=== PATIENT | female | born 1955 | race Caucasian/White ===

== ENCOUNTER → 2017-07-26 13:00 | Outpatient (CLI) | payer MEDICARE, SELFPAY ==
[2017-07-26 16:22] LABS: T4 Free Direct 1.23 ng/dL (0.76-1.46); Thyroid Stim Hormone (TSH) 0.79 uIU/mL (0.358-3.74)
== END ==
PROVIDERS: Family Provider Family Medicine; PCP Family Medicine; Visit Provider Family Medicine
DX: E03.9 Hypothyroidism, unspecified (principal)
CPT/HCPCS: 36415; 84439; 84443

== ENCOUNTER 2017-08-08 00:42 | Observation (INO) | payer MEDICARE, MEDICAID, SELFPAY ==
[2017-08-08] VITALS (20 sets, daily range): BP systolic 117–168; BP diastolic 56–94; PULSE 52–76; RESP 16–24; TEMP 36.3–36.7; O2SAT 95–99; BMI 34.1; BMI 32.1
--- NOTE | 2017-08-08 00:44 | EKG12_ITS ---
Test Reason : REPEAT Blood Pressure : / mmHG Vent. Rate : 059 BPM Atrial Rate : 059 BPM P-R Int : 144 ms QRS Dur : 092 ms QT Int : 458 ms P-R-T Axes : 043 022 036 degrees QTc Int : 453 ms Sinus bradycardia Otherwise normal ECG Confirmed by ELISHA POWER MD ([id number]), editor at large DONNA TROTTER ([id number] on 08/10/2017 1:00:20 PM Referred By: CARRIE Confirmed By:ELISHA POWER MD
--- NOTE | 2017-08-08 00:47 | RAD_ITS ---
STUDY: X-RAY CHEST REASON FOR EXAM: Female, 61 years old. Chest pain TECHNIQUE: Single frontal view of the chest. COMPARISON: 10/20/2015 FINDINGS: Median sternotomy wires. The lungs are clear and expanded. There is no demonstrated pleural abnormality. Normal size heart. Normal mediastinum and marisabel. Normal visualized pulmonary arteries. Normal visualized aortic arch and descending thoracic aorta. Normal visualized thoracic spine. There is degenerative osteoarthritis of the bilateral shoulders. There is no demonstrated abnormality of the visualized soft tissue structures of the upper abdomen. RAD/Chest 1 View (Portable) IMPRESSION: No acute pulmonary findings. Electronically Signed: Ephraim Du MD at 1:22 EST Tel , Service support ,
--- NOTE | 2017-08-08 01:05 | EKG12_ITS ---
Test Reason : CP Blood Pressure : / mmHG Vent. Rate : 064 BPM Atrial Rate : 064 BPM P-R Int : 138 ms QRS Dur : 088 ms QT Int : 444 ms P-R-T Axes : 052 033 036 degrees QTc Int : 458 ms Normal sinus rhythm Normal ECG Confirmed by ELISHA POWER MD ([id number]), marketing editor DONNA TROTTER ([id number]) on 08/10/2017 1:00:33 PM Referred By: CARRIE Confirmed By:ELISHA POWER MD
[2017-08-08 01:18] LABS: Absolute Neutrophil Count 3.3 X10^3/uL (2.0-7.7); Basophil# 0.02 X10^3/uL; Basophil% 0.3 % (0-1); Eosinophil# 0.26 X10^3/uL; Eosinophils% 3.8 % (0-5); Hematocrit 39.6 % (37-47); Hemoglobin 13.3 g/dl (12.0-15.0); Lymphocyte % 40.5 % (19-41); Mean Corp Hgb Conc 33.6 g/gl (32-36); Mean Corpuscular Hgb 31.1 pg (27.0-32.0); Mean Corpuscular Volume 92.7 fL (81-99); Mean Platelet Vol. 9.5 fl (6.2-12.0); Monocyte# 0.52 X10^3/uL; Monocyte% 7.5 % (0-10); Neutrophil # 3.31 X10^3/uL (2.7-7.7); Neutrophil % 47.8 % (47-70); Platelet Count 218 K/mm3 (150-450); RBC Distribution Width CV 13.2 % (11.6-14.6); RBC Distribution Width SD 44.4 fl (35.1-43.9); Red Blood Count 4.27 M/mm3 (4.2-5.4); White Blood Count 6.9 K/mm3 (4.4-11.0)
[2017-08-08 01:19] LABS: POSITIVE COUNT NO; POSITIVE DIFFERENTIAL NO; POSITIVE MORPHOLOGY NO
[2017-08-08 01:36] LABS: Anion Gap 8 (5-15); BUN 18 mg/dL (7-18); BUN/Creat Ratio 17.3 RATIO (10-20); Calcium,Total 9.2 mg/dL (8.5-10.1); Chloride 107 mmol/L (98-107); Creatinine, Serum 1.04 mg/dL (0.55-1.02); EST Glomerular Filtration Rate 57 mL/min (>60); Est Glom Filt Rate - Afr Amer 69 mL/min (>60); Estimated Creatinine Clearance 44.36 ml/min; Glucose 94 mg/dL (74-106); Potassium 4.2 mmol/L (3.5-5.1); Sodium Level 141 mmol/L (136-145)
[2017-08-08] MEDS: Nitroglycerin Oint 1 INCH PACKET TRANSDERM. ×2 (01:38→20:14)
[2017-08-08] MEDS: HEPARIN/D5w 25,000 UNITS 25,000 UNITS/250 ML IV.SOLN. 12 UNITS IV (01:57)
[2017-08-08 02:10] LABS: International Normalized Ratio 0.9; Prothrombin Time (Protime)PT. 11.7 SECONDS (11.7-14.9)
--- NOTE | 2017-08-08 03:27 | ED.VISSUMM ---
- ER Visit Summary Date of Service: 08/08/17 Chief Complaint: Chest pain History of Present Illness: The patient is a [address] Lemus and Dr. Boggs. She reports that she has chest pain that began yesterday. It is intermittent pain that lasts minutes at a time. States it is brought on by exertion relieved by rest. She describes the pain as a pressure. The most recent episode began approximate one half hours ago. States pain is 8 out of 10 at worst and 6 out of 10 currently. Is made her nauseated, short of breath, and diaphoretic. This most recent episode is radiating up into the left side of her jaw and down her left arm. Physical Examination: Vitals: Stable. Afebrile. General: Well-nourished and well-developed. Head: Normocephalic atraumatic. Neck: Supple, no lymphadenopathy. No JVD. Nontender. Cardiovascular: Regular rate and rhythm. No murmurs. Respiratory: No respiratory distress. Clear to auscultation bilaterally. Abdominal: Soft, nontender, nondistended, normal bowel sounds. No guarding, rebound, or peritoneal signs. Back: Nontender. Extremities: Nontender, no edema. Skin: Normal color, no rash. Neurologic: Alert and oriented ?3. Cranial nerves II through XII are intact. Normal strength and sensation. Psych: Normal affect. Test Results: EKG is sinus at [address] changes. Repeat EKG is unchanged. CBC is normal. Chem-7 is more for creatinine 1.04. Troponin is negative. Chest x-ray shows no acute disease. Emergency Department Course and Treatment: Patient was treated with aspirin, Nitropaste, morphine and heparin IV. She is resting comfortably. Treatment Plan: The patient was discussed with Dr. Brown and Dr. Cardenas. She will be admitted to the hospital for further evaluation and treatment. Disposition: Admitted in improved condition. Impression: 1. Chest pain. 2. BERTRAND score of 3. This note was generated with Finalta dictation software. It may contain incorrect words, spelling, and punctuation that were not noted in review of the chart prior to signing ED Disposition - Plan for ED Patient: Chief Complaint: Chest Pain Referrals: Teresa Boggs DO [Primary Care Provider] -
--- NOTE | 2017-08-08 03:28 | HP.PCM_ITS ---
Problem List (1) Chest pain Status: Acute (2) Orthostatic hypotension Status: Acute (3) Basal cell carcinoma of neck Status: Chronic Comment: C44.41 2 cm basal cell carcinoma scar right neck (4) Benign essential hypertension Status: Chronic (5) Bipolar disorder Status: Chronic (6) CAD (coronary artery disease) Status: Chronic History of Present Illness Date of Admission: 08/08/17 Chief Complaint: Chest pain The patient is a 61 year old female with significant past medical history of coronary artery disease, anxiety, history of stroke, fibromyalgia, irritable bowel syndrome, history of myocardial infarction, and posttraumatic stress disorder admitted for chest pain. She has left sided chest pressure that started yesterday while at rest. Pain has been moderate to severe. Pain would last for hours. Pain is episodic. Nothing makes it better or worse. She tried nitro but it did little to relieve the pain. Given that the intensity and frequency of the pain have increased, she went to the ED for further workup. Past Medical History Past Medical History (Chronic Problems): Chronic Problems Right foot pain (Chronic) Painful orthopaedic hardware (Chronic) Former smoker (Chronic) Z87.891 Basal cell carcinoma of neck (Chronic) C44.41 2 cm basal cell carcinoma scar right neck Neoplasm of skin of back (Chronic) D49.2 6 mm lesion left middle medial back Benign essential hypertension (Chronic) Bipolar disorder (Chronic) CAD (coronary artery disease) (Chronic) Hyperlipidemia (Chronic) Hypothyroidism (Chronic) history of ischemic stroke (Chronic) Seizure disorder (Chronic) Allergies adhesive tape Allergy (Verified 08/08/17 00:49) Rash codeine Allergy (Verified 08/08/17 00:49) Itching doxazosin Allergy (Verified 08/08/17 00:49) DROPS HEART RATE furosemide [From Lasix] Allergy (Verified 08/08/17 00:49) Itching latex Allergy (Verified 08/08/17 00:49) Rash oxycodone HCl [From Percocet] Allergy (Verified 08/08/17 00:49) Itching tramadol HCl [From Ultram] Allergy (Verified 08/08/17 00:49) Itching Home Medications: Ambulatory Orders Medication Instructions Recorded BusPIRone [Buspar] 10 mg PO TID 02/03/14 Clopidogrel Bisulfate [Plavix] 75 mg PO DAILY 02/03/14 Duloxetine Hcl [Cymbalta] 30 mg PO DAILY 02/03/14 Levothyroxine [Synthroid] 50 mcg PO TUTH 02/03/14 Levothyroxine [Synthroid] 75 mcg PO SUMOWEFRSA 02/03/14 Metoprolol Tartrate [Lopressor 50 mg PO BID 02/03/14 (beta kelin)] Multivitamins,Therapeutic 1 tablet PO DAILY 02/03/14 [Multivitamin] Pravastatin [Pravachol] 80 mg PO QHS 02/03/14 [place]-3 Fatty Acids [Fish Oil] 1,500 mg PO DAILY 10/20/15 Nitroglycerin [Nitrostat] 0.4 mg SUBLINGUAL Q5M PRN 06/10/16 Aspirin [Aspirin, Baby] 81 mg PO DAILY@0800 09/24/16 Amlodipine [Norvasc] 10 mg PO DAILY #0 09/25/16 Loratadine 10 mg PO DAILY 05/27/17 Magnesium 500 mg PO DAILY 05/27/17 L.acidoph,Paracasei, B.lactis 1 each PO DAILY 08/08/17 [Probiotic] Surgical History: coronary bypass surgery, - - cath with a stent in 2012 Smoking Status: Former smoker - *Family History Maternal History Items: Heart Disease Paternal History Items: Heart Disease Review of Systems Constitutional: Denies: Chills, Fever, Weight Change Eyes: Denies: Eyelid Inflammation HEENT: Denies: Head Aches, Sinus Congestion, Sinus Drainage Cardiovascular: Reports: Chest Pain, Chest Pressure, Chest Tightness. Denies: Palpitations Respiratory: Denies: Cough, Shortness of breath at rest, Sputum production Gastrointestinal: Denies: Abdominal Pain, Nausea, Vomiting Genitourinary: Denies: Dysuria Musculoskeletal: Denies: Joint Pain, Joint Tenderness Skin: Denies: Rash, Wounds Neurological: Denies: Numbness, Tingling, Focal weakness Psychiatric: Denies: Anxiety, Depression, Homicidal Ideations, Suicidal Ideations Hematologic/ Lymphatic: Denies: Easy Bruising, Easy Bleeding VTE Information - Inpt Only VTE Present on Admission: No VTE Mechan Device Prophylaxis: SCD's VTE Pharm Prophylaxis ordered?: Yes - Physical Exam General: Alert, Oriented x3, Cooperative HEENT: Atraumatic, PERRLA, EOMI, Normocephalic Neck: Supple, No JVD, Negative Carotid Bruits Lungs: Clear to auscultation, Normal air movement Cardiovascular: Regular rate, No murmurs Abdomen: Bowel Sounds Present, Soft, Non Tender Extremities: No edema, Capillary Refill Less than 3 Seconds Skin: No rashes, No breakdown Musculoskeletal: No Tenderness to Palpation of Joints or Extremities Neurological: Cranial nerves II-XII grossly intact Psych/Mental Status: Normal Affect, Appropriate Vital Signs Temp Pulse Resp BP Pulse Ox 97.6 F L 63 24 H 137/66 H 99 08/08/17 00:43 08/08/17 03:07 08/08/17 03:07 08/08/17 03:07 08/08/17 03:07 Oxygen Flow Rate 2 Oxygen Delivery Method Nasal Cannula Weight: 84.6 kg Body Mass Index (BMI) 34.1 Laboratory Tests Past 24 Hrs 08/08/17 08/08/17 08/08/17 00:56 00:56 01:15 WBC 6.9 RBC 4.27 Hgb 13.3 Hct 39.6 MCV 92.7 MCH 31.1 MCHC 33.6 RDW 13.2 RDW Differential 44.4 H Plt Count 218 MPV 9.5 Immature Gran % (Auto) 0.100 Neut % (Auto) 47.8 Lymph % (Auto) 40.5 [place] % (Auto) 7.5 Eos % (Auto) 3.8 Baso % (Auto) 0.3 Absolute Neuts (auto) 3.3 Absolute Lymphs (auto) 2.80 Total Counted Not Reportable PT 11.7 INR 0.9 Sodium 141 Potassium 4.2 Chloride 107 Carbon Dioxide 26.0 Anion Gap 8 BUN 18 Creatinine 1.04 H Estim Creat Clear Calc 44.36 Est GFR (MDRD) Af Amer 69 Est GFR (MDRD) Non-Af 57 L BUN/Creatinine Ratio 17.3 Glucose 94 Calcium 9.2 Troponin I < 0.02 Assessment/Plan 61 year old female with significant past medical history of coronary artery disease, anxiety, history of stroke, fibromyalgia, irritable bowel syndrome, history of myocardial infarction, and posttraumatic stress disorder admitted for chest pain. 1) Chest pain: Heart score 6. First trop negative. EKG disclosed no e/o acute ischemia. Chest xray is unremarkable. Will get serial trops. Will consult cards in AM. ECHO in AM. 2) CAD s/p FL: Resume home meds. Monitor. 3) Chronic issues: PTSD, fibromyalgia, and HTN: Resume home meds. Monitor. 4) Prophylaxis: Heparin / SCD.
[2017-08-08] MEDS: Levothyroxine 75 MCG Tablet PO (05:13)
[2017-08-08 05:30] LABS: Absolute Neutrophil Count 3.3 X10^3/uL (2.0-7.7); Basophil# 0.02 X10^3/uL; Basophil% 0.3 % (0-1); Eosinophil# 0.23 X10^3/uL; Eosinophils% 3.6 % (0-5); Hematocrit 38.4 % (37-47); Hemoglobin 13.1 g/dl (12.0-15.0); Lymphocyte % 37.4 % (19-41); Mean Corp Hgb Conc 34.1 g/gl (32-36); Mean Corpuscular Hgb 31.4 pg (27.0-32.0); Mean Corpuscular Volume 92.1 fL (81-99); Mean Platelet Vol. 10.2 fl (6.2-12.0); Monocyte# 0.48 X10^3/uL; Monocyte% 7.5 % (0-10); Neutrophil # 3.28 X10^3/uL (2.7-7.7); Platelet Count 215 K/mm3 (150-450); RBC Distribution Width SD 42.6 fl (35.1-43.9); Red Blood Count 4.17 M/mm3 (4.2-5.4); White Blood Count 6.4 K/mm3 (4.4-11.0)
[2017-08-08 05:32] LABS: POSITIVE COUNT NO; POSITIVE DIFFERENTIAL NO; POSITIVE MORPHOLOGY NO
--- NOTE | 2017-08-08 05:55 | ECHOD_ITS ---
Reason For Study: CHEST PAIN Procedure This was a 2D Doppler, Color Flow transthoracic echocardiogram. Exam performed portable in patient room. Left Ventricle Normal LV size. Left ventricular systolic function is normal. The estimated ejection fraction is 65 %. Transmitral and pulmonary venous doppler flow suggestive of impaired relaxation of left ventricle. No regional wall motion abnormalities noted. Right Ventricle Normal RV size. Normal systolic function. Atria Normal left atrium. Normal right atrium. Mitral Valve Normal mitral valve. Mild (1+) eccentric mitral valve insufficiency. Tricuspid Valve Normal tricuspid valve. Mild to moderate (1-2+) tricuspid valve insufficiency. Pulmonary artery systolic pressure is 33 mmHg. Aortic Valve Trisinus/trileaflet aortic valve. Pulmonic Valve Normal pulmonic valve. Great Vessels Normal aortic root. The pulmonary artery is normal size. Normal inferior vena cava. Pericardium/Pleural No pericardial effusion. MMode/2D Measurements & Calculations LVIDd: 4.5 cm IVSd: 0.96 cm Ao root diam: 3.5 cm LVIDs: 2.9 cm LVPWd: 0.95 cm LA dimension: 3.6 cm RVDd: 5.1 cm FS: 34.9 % LAV(MOD-sp4): 56.1 ml LA A4 area: 19.8 cm2 RA A4 area: 18.7 cm2 Doppler Measurements & Calculations MV E max genoveva: 51.6 cm/sec Ao V2 max: 110.3 cm/sec LV V1 max: 93.4 cm/sec MV A max genoveva: 62.8 cm/sec Ao max P.9 mmHg LV V1 max P.5 mmHg MV E/A: 0.82 TR max genoveva: 264.4 cm/sec TR max P.0 mmHg Interpretation Summary Normal LV size. Left ventricular systolic function is normal. The estimated ejection fraction is 65 %. Transmitral and pulmonary venous doppler flow suggestive of impaired relaxation of left ventricle Mild (1+) eccentric mitral valve insufficiency. Pulmonary artery systolic pressure is 33 mmHg. Ordering Physician: Dannie Brown Referring Physician: KINGS TALAVERA Performed By: Melvina Morales, RDCS, RVT
[2017-08-08 06:29] LABS: ALB/GLOB Ratio 1.1 RATIO (0.9-2.4); AST(SGOT) 26 U/L (15-37); Alanine Aminotransfer ALT/SGPT 25 U/L (13-56); Albumin, Serum 3.6 g/dL (3.2-5.0); Alkaline Phosphatase 66 U/L (45-117); Anion Gap 8 (5-15); BUN 16 mg/dL (7-18); BUN/Creat Ratio 16.6 RATIO (10-20); Calcium,Total 8.9 mg/dL (8.5-10.1); Chloride 109 mmol/L (98-107); Cholesterol 199 mg/dL (200); Creatinine, Serum 0.96 mg/dL (0.55-1.02); EST Glomerular Filtration Rate 62 mL/min (>60); Est Glom Filt Rate - Afr Amer 75 mL/min (>60); Estimated Creatinine Clearance 45.85 ml/min; Globulin 3.3 g/dL (2.2-4.2); Glucose 105 mg/dL (74-106); High Density Lipoprotein 65 mg/dL; Magnesium 2.5 mg/dL (1.6-2.6); Potassium 3.8 mmol/L (3.5-5.1); Protein, Total 6.9 g/dL (6.4-8.2); Sodium Level 142 mmol/L (136-145); Thyroid Stim Hormone (TSH) 1.14 uIU/mL (0.358-3.74); Triglycerides 71 mg/dL; Very Low Density Lipoprotein 14 mg/dL (5-40)
[2017-08-08] MEDS: Loratadine 10 MG Tablet PO (09:54)
[2017-08-08] MEDS: amLODIPine 10 MG Tablet PO (09:54)
[2017-08-08] MEDS: Magnesium Oxide 400 MG Tablet PO (09:54)
[2017-08-08] MEDS: Metoprolol Tartrate 50 MG Tablet PO ×2 (09:54→20:10)
[2017-08-08] MEDS: DULoxetine Hcl 30 MG Capsule PO (09:54)
[2017-08-08] MEDS: Multivitamins,Therapeutic Tablet 1 TABLET PO (09:55)
[2017-08-08] MEDS: Clopidogrel Bisulfate 75 MG Tablet PO (09:55)
[2017-08-08] MEDS: Aspirin 81 MG TAB.CHEW PO (09:55)
[2017-08-08] MEDS: HYDROcodone Bitartrate/Apap 5/325 Tablet PO (13:50)
--- NOTE | 2017-08-08 14:04 | PCM.CONS.C ---
Problem List (1) Unstable angina Status: Acute (2) CAD (coronary artery disease) Status: Chronic Qualifiers: Coronary Disease-Associated Artery/Lesion type: bypass graft Associated angina: with unstable angina (3) S/P PTCA (percutaneous transluminal coronary angioplasty) Status: Chronic (4) S/P CABG x 2 Status: Chronic (5) Hyperlipidemia Status: Chronic Qualifiers: Hyperlipidemia type: unspecified Qualified Code(s): E78.5 - Hyperlipidemia, unspecified (6) Benign essential hypertension Status: Chronic (7) Hypothyroidism Status: Chronic Qualifiers: Hypothyroidism type: unspecified Qualified Code(s): E03.9 - Hypothyroidism, unspecified Reason for Consult Date of Consultation: 08/08/17 History of Present Illness: The patient is a 61 year old female with a past medical history of CAD, status post RCA PTCA/stent, status post CABG (VARGAS to the LAD and SVG to the LCx), superimposed upon hyperlipidemia, hypertension, hypothyroidism who presents for evaluation of symptoms compatible with unstable angina pectoris. She states she has been having symptoms which have progressed recently and yesterday were nonexertional with a chest heaviness that radiated to her left neck, left jaw, left upper extremity, and was associated with shortness of breath/dyspnea and nausea. She did not have orthopnea, PND, or peripheral pitting edema. There was no loss of consciousness. She states the symptoms resembled symptoms she has had prior to her coronary artery revascularization therapy and different from her gastrointestinal disease process with a history of GERD and irritable bowel syndrome. She notes she is also had a chronic knot like sensation in her chest. She used nitroglycerin sublingual at home. She states this gave her partial relief. She received additional nitrate therapy during her emergency department evaluation. She states she had relief of her symptoms other than the chronic knot like sensation in her chest. She has had cardiac enzymes. They have been negative. Her ECG demonstrated sinus rhythm/sinus bradycardia with no acute ECG changes. He has continued medical management. [] Past Medical History Allergies/Adverse Reactions: Allergies adhesive tape Allergy (Verified 08/08/17 04:22) Rash codeine Allergy (Verified 08/08/17 04:22) Itching doxazosin Allergy (Verified 08/08/17 04:22) DROPS HEART RATE furosemide [From Lasix] Allergy (Verified 08/08/17 04:22) Itching latex Allergy (Verified 08/08/17 04:22) Rash oxycodone HCl [From Percocet] Allergy (Verified 08/08/17 04:22) Itching tramadol HCl [From Ultram] Allergy (Verified 08/08/17 04:22) Itching Home Medications: Ambulatory Orders Medication Instructions Recorded BusPIRone [Buspar] 10 mg PO TID 02/03/14 Clopidogrel Bisulfate [Plavix] 75 mg PO DAILY 02/03/14 Duloxetine Hcl [Cymbalta] 30 mg PO DAILY 02/03/14 Levothyroxine [Synthroid] 50 mcg PO TUTH 02/03/14 Levothyroxine [Synthroid] 75 mcg PO SUMOWEFRSA 02/03/14 Metoprolol Tartrate [Lopressor 50 mg PO BID 02/03/14 (beta kelin)] Multivitamins,Therapeutic 1 tablet PO DAILY 02/03/14 [Multivitamin] Pravastatin [Pravachol] 80 mg PO QHS 02/03/14 [place]-3 Fatty Acids [Fish Oil] 1,500 mg PO DAILY 10/20/15 Nitroglycerin [Nitrostat] 0.4 mg SUBLINGUAL Q5M PRN 06/10/16 Aspirin [Aspirin, Baby] 81 mg PO DAILY@0800 09/24/16 Amlodipine [Norvasc] 10 mg PO DAILY #0 09/25/16 Loratadine 10 mg PO DAILY 05/27/17 Magnesium 500 mg PO DAILY 05/27/17 L.acidoph,Paracasei, B.lactis 1 each PO DAILY 08/08/17 [Probiotic] Past Medical History (Chronic Problems): Chronic Problems S/P PTCA (percutaneous transluminal coronary angioplasty) (Chronic) S/P CABG x 2 (Chronic) Right foot pain (Chronic) Painful orthopaedic hardware (Chronic) Former smoker (Chronic) Z87.891 Basal cell carcinoma of neck (Chronic) C44.41 2 cm basal cell carcinoma scar right neck Neoplasm of skin of back (Chronic) D49.2 6 mm lesion left middle medial back Benign essential hypertension (Chronic) Bipolar disorder (Chronic) CAD (coronary artery disease) (Chronic) Hyperlipidemia (Chronic) Hypothyroidism (Chronic) history of ischemic stroke (Chronic) Seizure disorder (Chronic) Surgical History: coronary bypass surgery, - - cath with a stent in 2012 - *Family History Maternal History Items: Heart Disease Paternal History Items: Heart Disease Smoking Status: Former smoker Alcohol: None Drugs: None Review of Systems - Review of Systems General: Denies: Fever, Night Sweats, Fatigue Cardiovascular: Reports: Chest Discomfort, Chest Discomfort at Rest, Chest Discomfort with Exertion, Shortness of Breath, Shortness of Breath at Rest. Denies: Orthopnea, PND, Peripheral Edema, Palpitations, Lightheadedness, Dizziness, Near Syncope, Syncope Respiratory: Reports: Shortness of Breath. Denies: Cough, Sputum Production, Hemoptysis Gastrointestinal: Denies: Hematemesis, Hematochezia, Melena Genitourinary: Denies: Dysuria, Hematuria Skin: Denies: Rash Subjectve: This is a 61-year-old white female who appears to be resting comfortably at the moment in no acute distress. Objective: Vital Signs Temp Pulse Resp BP Pulse Ox 98.1 F 66 16 138/64 H 98 08/08/17 09:51 08/08/17 09:54 08/08/17 09:51 08/08/17 09:51 08/08/17 09:51 Oxygen Flow Rate 2 Oxygen Delivery Method Nasal Cannula Weight: 174 lb 9.698 oz Body Mass Index (BMI) 32.1 Intake and Output for Last 24 Hours 08/06/17 08/07/17 08/08/17 23:59 23:59 23:59 Intake Total 360 / 360 Balance 360 / 360 General: Awake, Alert, Oriented x 3, Cooperative, No Acute Distress Neck: No JVD Lungs: Clear to auscultation Cardiovascular: Regular Rhythm, Normal S1, Normal S2 Vascular: No Carotid Bruits Abdomen: Bowel Sounds Present, Soft, Non Tender Extremities: No edema 08/08/17 04:45: WBC 6.4, RBC 4.17 L, Hgb 13.1, Hct 38.4, MCV 92.1, MCH 31.4, MCHC 34.1, RDW 13.0, RDW Differential 42.6, Plt Count 215, MPV 10.2, Immature Gran % (Auto) 0.200, Neut % (Auto) 51.0, Lymph % (Auto) 37.4, [place] % (Auto) 7.5, Eos % (Auto) 3.6, Baso % (Auto) 0.3, Absolute Neuts (auto) 3.3, Total Counted Not Reportable 08/08/17 04:45: Sodium 142, Potassium 3.8, Chloride 109 H, Carbon Dioxide 25.0, Anion Gap 8, BUN 16, Creatinine 0.96, Est GFR (MDRD) Af Amer 75, Est GFR (MDRD) Non-Af 62, BUN/Creatinine Ratio 16.6, Glucose 105, Calcium 8.9, Magnesium 2.5, Total Bilirubin 0.70, Triglycerides 71, Cholesterol 199, LDL Cholesterol 120, VLDL Cholesterol 14, HDL Cholesterol 65 08/08/17 04:45: Troponin I < 0.02 08/08/17 09:15: Troponin I < 0.02 Rhythm: Sinus rhythm EKG: As noted above ECHO: 12/09/2015: Left ventricle normal with an LVEF of 60%; mild MR; mild to moderate TR Stress Test: 02/11/2015: Pharmacologic stress nuclear imaging study: Considered negative for stress-induced myocardial ischemia Cardiac Cath: 10/21/2015: Left main coronary artery with no high-grade stenosis; LAD with proximal 30-40% stenosis; LCx AV groove/OM vessel with an 80% stenosis-small vessel; RCA being a dominant vessel with a distal 95% stenosis; VARGAS to the LAD previously noted as atretic; SVG to the LCx patent; left ventriculogram normal with an LVEF of 65% PCI: 10/22/2015: [facility]: Successful PTCA/stent of the distal RCA lesion with subsequent notation of antegrade dissection after stent deployment with subsequent PTCA/JATIN placed across the ostium of the PDA CT Surgery: Official report unavailable for review: Based upon other medical records available for review there was a VARGAS to the LAD and an SVG to the LCx system CXR: Preliminary evaluation: Postoperative cardiovascular changes: No acute cardiopulmonary disease process appreciated: Please see official report Assessment/Plan 1. Unstable angina pectoris The patient presents with symptoms concerning for unstable angina pectoris. At the same time she has symptoms that are somewhat atypical with respect to her chronic knot sensation. She notes her symptoms are similar, overall, after her symptoms she had prior to her revascularization procedures and different from her gastrointestinal related symptoms with her history of GERD and inflammatory bowel disease. At the present time she will continue to be monitored. She will continue medical therapy. She has remained on aspirin, antiplatelets, she will be placed on nitrates, she continues beta-kelin therapy and lipid-lowering therapy. She has also been placed on anticoagulant therapy. She will be considered for further evaluation with diagnostic cardiac catheterization. The procedure and risks have been discussed with her and she is agreeable to this approach. 2. CAD status post PTCA/stent and CABG The patient does have underlying history of CAD requiring both PTCA/stent and CABG as noted above. At the moment there are concerns based upon her symptoms compatible with unstable angina pectoris of progressive [place] vessel or graft vessel disease. Thus she will continue her current medical management and be considered for reevaluation in the cardiac catheterization laboratory as noted above. 3. Hyperlipidemia The patient has been on lipid-lowering therapy. This will be continued. 4. Hypertension She will continue antihypertensive therapy. 5. Hypothyroidism The patient will continue evaluation care per internal medicine as deemed appropriate. Comment: Patient's case was discussed and reviewed with Dr. Burch. This note was generated with Qnary dictation software. It may contain incorrect words, spelling, and punctuation that were not noted in checking the note before signing.
--- NOTE | 2017-08-08 14:16 | CON.PCM_ITS ---
Problem List (1) Unstable angina Status: Acute (2) CAD (coronary artery disease) Status: Chronic Qualifiers: Coronary Disease-Associated Artery/Lesion type: bypass graft Associated angina: with unstable angina (3) S/P PTCA (percutaneous transluminal coronary angioplasty) Status: Chronic (4) S/P CABG x 2 Status: Chronic (5) Hyperlipidemia Status: Chronic Qualifiers: Hyperlipidemia type: unspecified Qualified Code(s): E78.5 - Hyperlipidemia , unspecified (6) Benign essential hypertension Status: Chronic (7) Hypothyroidism Status: Chronic Qualifiers: Hypothyroidism type: unspecified Qualified Code(s): E03.9 - Hypothyroidism , unspecified Reason for Consult Date of Consultation: 08/08/17 History of Present Illness: The patient is a 61 year old female with a past medical history of CAD, status post RCA PTCA/stent, status post CABG (VARGAS to the LAD and SVG to the LCx), superimposed upon hyperlipidemia, hypertension, hypothyroidism who presents for evaluation of symptoms compatible with unstable angina pectoris. She states she has been having symptoms which have progressed recently and yesterday were nonexertional with a chest heaviness that radiated to her left neck, left jaw, left upper extremity, and was associated with shortness of breath/dyspnea and nausea. She did not have orthopnea, PND, or peripheral pitting edema. There was no loss of consciousness. She states the symptoms resembled symptoms she has had prior to her coronary artery revascularization therapy and different from her gastrointestinal disease process with a history of GERD and irritable bowel syndrome. She notes she is also had a chronic knot like sensation in her chest. She used nitroglycerin sublingual at home. She states this gave her partial relief. She received additional nitrate therapy during her emergency department evaluation. She states she had relief of her symptoms other than the chronic knot like sensation in her chest. She has had cardiac enzymes. They have been negative. Her ECG demonstrated sinus rhythm/sinus bradycardia with no acute ECG changes. He has continued medical management. [] Past Medical History Allergies/Adverse Reactions: Allergies adhesive tape Allergy (Verified 08/08/17 04:22) Rash codeine Allergy (Verified 08/08/17 04:22) Itching doxazosin Allergy (Verified 08/08/17 04:22) DROPS HEART RATE furosemide [From Lasix] Allergy (Verified 08/08/17 04:22) Itching latex Allergy (Verified 08/08/17 04:22) Rash oxycodone HCl [From Percocet] Allergy (Verified 08/08/17 04:22) Itching tramadol HCl [From Ultram] Allergy (Verified 08/08/17 04:22) Itching Home Medications: Ambulatory Orders Medication Instructions Recorded BusPIRone [Buspar] 10 mg PO TID 02/03/14 Clopidogrel Bisulfate [Plavix] 75 mg PO DAILY 02/03/14 Duloxetine Hcl [Cymbalta] 30 mg PO DAILY 02/03/14 Levothyroxine [Synthroid] 50 mcg PO TUTH 02/03/14 Levothyroxine [Synthroid] 75 mcg PO SUMOWEFRSA 02/03/14 Metoprolol Tartrate [Lopressor 50 mg PO BID 02/03/14 (beta kelin)] Multivitamins,Therapeutic 1 tablet PO DAILY 02/03/14 [Multivitamin] Pravastatin [Pravachol] 80 mg PO QHS 02/03/14 [place]-3 Fatty Acids [Fish Oil] 1,500 mg PO DAILY 10/20/15 Nitroglycerin [Nitrostat] 0.4 mg SUBLINGUAL Q5M PRN 06/10/16 Aspirin [Aspirin, Baby] 81 mg PO DAILY@0800 09/24/16 Amlodipine [Norvasc] 10 mg PO DAILY #0 09/25/16 Loratadine 10 mg PO DAILY 05/27/17 Magnesium 500 mg PO DAILY 05/27/17 L.acidoph,Paracasei, B.lactis 1 each PO DAILY 08/08/17 [Probiotic] Past Medical History (Chronic Problems): Chronic Problems S/P PTCA (percutaneous transluminal coronary angioplasty) (Chronic) S/P CABG x 2 (Chronic) Right foot pain (Chronic) Painful orthopaedic hardware (Chronic) Former smoker (Chronic) Z87.891 Basal cell carcinoma of neck (Chronic) C44.41 2 cm basal cell carcinoma scar right neck Neoplasm of skin of back (Chronic) D49.2 6 mm lesion left middle medial back Benign essential hypertension (Chronic) Bipolar disorder (Chronic) CAD (coronary artery disease) (Chronic) Hyperlipidemia (Chronic) Hypothyroidism (Chronic) history of ischemic stroke (Chronic) Seizure disorder (Chronic) Surgical History: coronary bypass surgery, - - cath with a stent in 2012 - *Family History Maternal History Items: Heart Disease Paternal History Items: Heart Disease Smoking Status: Former smoker Alcohol: None Drugs: None Review of Systems - Review of Systems General: Denies: Fever, Night Sweats, Fatigue Cardiovascular: Reports: Chest Discomfort, Chest Discomfort at Rest, Chest Discomfort with Exertion, Shortness of Breath, Shortness of Breath at Rest. Denies: Orthopnea, PND, Peripheral Edema, Palpitations, Lightheadedness, Dizziness, Near Syncope, Syncope Respiratory: Reports: Shortness of Breath. Denies: Cough, Sputum Production, Hemoptysis Gastrointestinal: Denies: Hematemesis, Hematochezia, Melena Genitourinary: Denies: Dysuria, Hematuria Skin: Denies: Rash Subjectve: This is a 61-year-old white female who appears to be resting comfortably at the moment in no acute distress. Objective: Vital Signs Temp Pulse Resp BP Pulse Ox 98.1 F 66 16 138/64 H 98 08/08/17 09:51 08/08/17 09:54 08/08/17 09:51 08/08/17 09:51 08/08/17 09:51 Oxygen Flow Rate 2 Oxygen Delivery Method Nasal Cannula Weight: 174 lb 9.698 oz Body Mass Index (BMI) 32.1 Intake and Output for Last 24 Hours 08/06/17 08/07/17 08/08/17 23:59 23:59 23:59 Intake Total 360 / 360 Balance 360 / 360 General: Awake, Alert, Oriented x 3, Cooperative, No Acute Distress Neck: No JVD Lungs: Clear to auscultation Cardiovascular: Regular Rhythm, Normal S1, Normal S2 Vascular: No Carotid Bruits Abdomen: Bowel Sounds Present, Soft, Non Tender Extremities: No edema 08/08/17 04:45: WBC 6.4, RBC 4.17 L, Hgb 13.1, Hct 38.4, MCV 92.1, MCH 31.4, MCHC 34.1, RDW 13.0, RDW Differential 42.6, Plt Count 215, MPV 10.2, Immature Gran % (Auto) 0.200, Neut % (Auto) 51.0, Lymph % (Auto) 37.4, [place] % (Auto) 7.5 , Eos % (Auto) 3.6, Baso % (Auto) 0.3, Absolute Neuts (auto) 3.3, Total Counted Not Reportable 08/08/17 04:45: Sodium 142, Potassium 3.8, Chloride 109 H, Carbon Dioxide 25.0, Anion Gap 8, BUN 16, Creatinine 0.96, Est GFR (MDRD) Af Amer 75, Est GFR (MDRD) Non-Af 62, BUN/Creatinine Ratio 16.6, Glucose 105, Calcium 8.9, Magnesium 2.5, Total Bilirubin 0.70, Triglycerides 71, Cholesterol 199, LDL Cholesterol 120, VLDL Cholesterol 14, HDL Cholesterol 65 08/08/17 04:45: Troponin I < 0.02 08/08/17 09:15: Troponin I < 0.02 Rhythm: Sinus rhythm EKG: As noted above ECHO: 12/09/2015: Left ventricle normal with an LVEF of 60%; mild MR; mild to moderate TR Stress Test: 02/11/2015: Pharmacologic stress nuclear imaging study: Considered negative for stress-induced myocardial ischemia Cardiac Cath: 10/21/2015: Left main coronary artery with no high-grade stenosis; LAD with proximal 30-40% stenosis; LCx AV groove/OM vessel with an 80% stenosis- small vessel; RCA being a dominant vessel with a distal 95% stenosis; VARGAS to the LAD previously noted as atretic; SVG to the LCx patent; left ventriculogram normal with an LVEF of 65% PCI: 10/22/2015: [facility]: Successful PTCA/stent of the distal RCA lesion with subsequent notation of antegrade dissection after stent deployment with subsequent PTCA/JATIN placed across the ostium of the PDA CT Surgery: Official report unavailable for review: Based upon other medical records available for review there was a VARGAS to the LAD and an SVG to the LCx system CXR: Preliminary evaluation: Postoperative cardiovascular changes: No acute cardiopulmonary disease process appreciated: Please see official report Assessment/Plan 1. Unstable angina pectoris The patient presents with symptoms concerning for unstable angina pectoris. At the same time she has symptoms that are somewhat atypical with respect to her chronic knot sensation. She notes her symptoms are similar, overall, after her symptoms she had prior to her revascularization procedures and different from her gastrointestinal related symptoms with her history of GERD and inflammatory bowel disease. At the present time she will continue to be monitored. She will continue medical therapy. She has remained on aspirin, antiplatelets, she will be placed on nitrates, she continues beta-kelin therapy and lipid-lowering therapy. She has also been placed on anticoagulant therapy. She will be considered for further evaluation with diagnostic cardiac catheterization. The procedure and risks have been discussed with her and she is agreeable to this approach. 2. CAD status post PTCA/stent and CABG The patient does have underlying history of CAD requiring both PTCA/stent and CABG as noted above. At the moment there are concerns based upon her symptoms compatible with unstable angina pectoris of progressive [place] vessel or graft vessel disease. Thus she will continue her current medical management and be considered for reevaluation in the cardiac catheterization laboratory as noted above. 3. Hyperlipidemia The patient has been on lipid-lowering therapy. This will be continued. 4. Hypertension She will continue antihypertensive therapy. 5. Hypothyroidism The patient will continue evaluation care per internal medicine as deemed appropriate. Comment: Patient's case was discussed and reviewed with Dr. Burch. This note was generated with [employer] dictation software. It may contain incorrect words, spelling, and punctuation that were not noted in checking the note before signing.
[2017-08-08] MEDS: Pravastatin 80 MG Tablet PO (20:10)
[2017-08-08] MEDS: 0.9% NaCl Peripheral Flush Adult/Peds IV (20:15)
--- NOTE | 2017-08-08 20:55 | NURSING ---
Pt given HS meds at 20:10, Pt feeling sleepy at this time. Pt to have heart cath and wanted to get rest and asked to not be woken up for HS med and vitals. Administered early due to pt request.
[2017-08-09] VITALS (20 sets, daily range): BP systolic 102–129; BP diastolic 50–85; PULSE 52–67; RESP 14–18; TEMP 36.4–36.9; O2SAT 92–97
[2017-08-09] MEDS: Clopidogrel Bisulfate 75 MG Tablet PO (05:36)
[2017-08-09] MEDS: Levothyroxine 75 MCG Tablet PO (05:36)
[2017-08-09] MEDS: Aspirin 81 MG TAB.CHEW PO (05:36)
[2017-08-09] MEDS: amLODIPine 10 MG Tablet PO (05:37)
[2017-08-09] MEDS: 0.9% Normal Saline 1,000 ML 15 ML IV (05:39)
[2017-08-09] MEDS: Nitroglycerin Oint 1 INCH PACKET TRANSDERM. (05:39)
[2017-08-09] MEDS: Metoprolol Tartrate 50 MG Tablet PO (05:44)
--- NOTE | 2017-08-09 05:55 | EKG12_ITS ---
Test Reason : AM Blood Pressure : / mmHG Vent. Rate : 059 BPM Atrial Rate : 059 BPM P-R Int : 148 ms QRS Dur : 088 ms QT Int : 456 ms P-R-T Axes : 054 017 042 degrees QTc Int : 451 ms Sinus bradycardia Otherwise normal ECG When compared with ECG of 08-AUG-2017 01:15, MANUAL COMPARISON REQUIRED, DATA IS UNCONFIRMED Confirmed by JANNET METCALF, ELISHA ([id number]), subeditor DONNA TROTTER ([id number]) on 08/10/2017 2:01:05 PM Referred By: ANTONIO Confirmed By:ELISHA POWER MD
[2017-08-09 06:27] LABS: Partial Thromboplast Time 29.8 Seconds (24.1-36.2); Prothrombin Time (Protime)PT. 12.3 SECONDS (11.7-14.9)
[2017-08-09 06:38] LABS: Anion Gap 7 (5-15); BUN 17 mg/dL (7-18); BUN/Creat Ratio 18.2 RATIO (10-20); Calcium,Total 8.7 mg/dL (8.5-10.1); Chloride 107 mmol/L (98-107); Creatinine, Serum 0.94 mg/dL (0.55-1.02); EST Glomerular Filtration Rate 64 mL/min (>60); Est Glom Filt Rate - Afr Amer 78 mL/min (>60); Estimated Creatinine Clearance 46.83 ml/min; Glucose 107 mg/dL (74-106); Potassium 3.9 mmol/L (3.5-5.1); Sodium Level 139 mmol/L (136-145)
[2017-08-09 06:48] LABS: Absolute Lymphocyte Count 2.16 X10^3/ul (0.83-4.51); Absolute Neutrophil Count 2.8 X10^3/uL (2.0-7.7); Basophil# 0.02 X10^3/uL; Basophil% 0.4 % (0-1); Eosinophils% 3.6 % (0-5); Hematocrit 38.4 % (37-47); Hemoglobin 12.7 g/dl (12.0-15.0); Lymphocyte # 2.16 X10^3/ul (4.0); Lymphocyte % 38.7 % (19-41); Mean Corp Hgb Conc 33.1 g/gl (32-36); Mean Corpuscular Hgb 31.1 pg (27.0-32.0); Mean Corpuscular Volume 93.9 fL (81-99); Mean Platelet Vol. 9.7 fl (6.2-12.0); Monocyte# 0.36 X10^3/uL; Monocyte% 6.5 % (0-10); Neutrophil # 2.83 X10^3/uL (2.7-7.7); Neutrophil % 50.6 % (47-70); Platelet Count 210 K/mm3 (150-450); RBC Distribution Width CV 13.2 % (11.6-14.6); RBC Distribution Width SD 45.5 fl (35.1-43.9); Red Blood Count 4.09 M/mm3 (4.2-5.4); White Blood Count 5.6 K/mm3 (4.4-11.0)
[2017-08-09 06:54] LABS: POSITIVE COUNT NO; POSITIVE DIFFERENTIAL NO; POSITIVE MORPHOLOGY NO
--- NOTE | 2017-08-09 08:47 | PN.CARD_ITS ---
Subjectve: patient seen and evaluated Objective: Vital Signs Temp Pulse Resp BP Pulse Ox 97.9 F 57 L 16 122/60 H 97 08/09/17 05:52 08/09/17 06:57 08/09/17 05:52 08/09/17 05:52 08/09/17 05:52 Oxygen Flow Rate 2 Oxygen Delivery Method Room Air Weight: 174 lb 9.698 oz Body Mass Index (BMI) 32.1 Intake and Output for Last 24 Hours 08/07/17 08/08/17 08/09/17 23:59 23:59 23:59 Intake Total 1240 / 1240 400 / 400 Output Total 2 / 2 Balance 1238 / 1238 400 / 400 General: Awake, Alert, Oriented x 3 HEENT: PERRL, EOMI, Sclera Non Icteric Neck: Supple, Good ROM, No Lymph Node Enlargement Lungs: Clear to auscultation Cardiovascular: Regular Rhythm, Normal S1, Normal S2, No Murmurs, No Rubs, No Gallops Vascular: No Carotid Bruits, Normal Femoral Pulses, Normal Radial Pulses, Normal Dorsalis Pedal Pulse, Normal Posterior Tibial Pulses Abdomen: Bowel Sounds Present, Soft, Non Tender, No HSM, No Organomegaly Extremities: No Cyanosis, No Clubbing, No edema Neurological: No Focal Motor or Sensory Deficit 08/08/17 09:15: Troponin I < 0.02 08/08/17 14:35: Troponin I < 0.02 08/09/17 05:48: PT 12.3, INR 1.0, APTT 29.8 08/09/17 05:48: Sodium 139, Potassium 3.9, Chloride 107, Carbon Dioxide 25.0, Anion Gap 7, BUN 17, Creatinine 0.94, Est GFR (MDRD) Af Amer 78, Est GFR (MDRD) Non-Af 64, BUN/Creatinine Ratio 18.2, Glucose 107 H, Calcium 8.7 08/09/17 05:48: WBC 5.6, RBC 4.09 L, Hgb 12.7, Hct 38.4, MCV 93.9, MCH 31.1, MCHC 33.1, RDW 13.2, RDW Differential 45.5 H, Plt Count 210, MPV 9.7, Immature Gran % (Auto) 0.200, Neut % (Auto) 50.6, Lymph % (Auto) 38.7, [place] % (Auto) 6.5 , Eos % (Auto) 3.6, Baso % (Auto) 0.4, Absolute Neuts (auto) 2.8, Total Counted Not Reportable Rhythm: EKG: Sinus rhythm Assessment/Plan 1. Patient with known coronary artery disease. Underwent cardiac catheterization today which demonstrated the following: Left main coronary artery with mild 30% stenosis. Left anterior descending artery which appears to be patent with mild luminal irregularities. Left circumflex artery which is totally occluded in the midsegment. Dominant right coronary artery previously angioplastied with patent stents. Saphenous vein graft to the circumflex artery which is patent. Atretic left internal mammary artery not imaged. Preserved ejection fraction. Based on the above angiographic findings I would recommend continued aggressive medical therapy. Can be discharged later today.
--- NOTE | 2017-08-09 08:53 | CL.D_ITS ---
Patient Name: NISSA TROTTER Study Date: 08/09/2017 Performing: Dustin Lemus MD Ht: 62 inches 157 cm : 1955 Wt: 174.4 lbs 79 kg Age: 61 Gender: female BSA: 1.8 PROCEDURE(S) PERFORMED YC45-OAN/COR/LV/CABG CLINICAL PROFILE AND INDICATIONS INDICATIONS: 61-year-old lady with a history of chest pain and known coronary artery disease. Stress/Imaging Stress/Image Study Performed: No CAD Presentations: Stable angina. CONCLUSIONS No significant obstructive CAD.previous stent patent RECOMMENDATIONS Medical therapy DESCRIPTION OF PROCEDURE The patient arrived to the procedure lab. The risks and benefits of the procedure as well as a full d escription of our services here and current unavailability of surgical backup were fully explained to the patient and/or their significant other prior to the catheterization. The Timeout was completed, verifying the correct patient and procedure. The patient's procedural site was prepped and draped in the usual fashion. Local anesthetic was given subcutaneously to right radial region with Lidocaine 2% . Using a modified Seldinger technique, arterial access was obtained via the right radial artery, a 6 Fr sheath was inserted. Right Coronary Artery selective angiography was then performed in multiple v iews using a 5 Fr. 4.0 [place] catheter. Saphenous Vein graft to the Circumflex selective angiography w as performed in multiple views using a 5 Fr. 4.0 [place] catheter. Left Coronary Artery selective angio graphy was performed in multiple views using a 5 Fr. JL3.5 catheter. Left Ventriculography was perfor med in LOW projection using a 5 Fr. [place] catheter. LV to AO pullback pressures were then recorded. The arterial sheath was pulled and a TR Band was applied for hemostasis CORONARY ANGIOGRAPHY DOMINANCE: Right Dominant LEFT HEART ASSESSMENT Left Ventricular Ejection Fraction: by LV Gram 60 % Normal LV wall motion Normal Left Ventricular systolic function LEFT MAIN: 30 distal % Stenosis LEFT ANTERIOR DECENDING ARTERY: Mild luminal irregularities less than 30% CIRCUMFLEX ARTERY: MID CIRC: is occluded RIGHT CORONARY ARTERY: Previously placed stent is patent GRAFTS: Saphenous Vein graft to the 2nd OM is patent COMPLICATIONS No Complications PROCEDURE MEDICATIONS Versed 1 mg IV Fentanyl 50 mcg IV Oxygen: 2 L/min via nasal cannula SUMMARY OF HEMODYNAMIC DATA Time AIR REST AO 114/63 (84) SA 08:17:35 LV 125/5, 16 08:33:56 LV 126/4, 9 08:34:15 LV 122/4, 15 08:35:43 LVp 122/4, 17 08:35:48 AOp 124/51 (79) 08:35:53 Signed By Dustin Lemus MD On 08/09/2017 08:52:53 Dustin Lemus MD
[2017-08-09] MEDS: Magnesium Oxide 400 MG Tablet PO (10:10)
[2017-08-09] MEDS: Loratadine 10 MG Tablet PO (10:10)
[2017-08-09] MEDS: Multivitamins,Therapeutic Tablet 1 TABLET PO (10:10)
[2017-08-09] MEDS: DULoxetine Hcl 30 MG Capsule PO (10:10)
[2017-08-09] MEDS: Isosorbide Mononitrate 30 MG Tablet PO (10:10)
[2017-08-09] MEDS: 0.9% Normal Saline 1,000 ML 60 ML IV (10:48)
--- NOTE | 2017-08-09 15:31 | DCINST_ITS ---
- Discharge Diagnoses Current Active Problems: Current Active and Chronic Problems Unstable angina (Acute) S/P PTCA (percutaneous transluminal coronary angioplasty) (Chronic) S/P CABG x 2 (Chronic) You will use the following diet at home:: No restrictions Your food should be the consistency of: Regular Your liquids should be the consistency of: Regular/Thin Discharge Activity: Return to Normal Activity Weight Bearing Status: Full weight bearing Allergies/Adverse Reactions: Allergies adhesive tape Allergy (Verified 08/08/17 04:22) Rash codeine Allergy (Verified 08/08/17 04:22) Itching doxazosin Allergy (Verified 08/08/17 04:22) DROPS HEART RATE furosemide [From Lasix] Allergy (Verified 08/08/17 04:22) Itching latex Allergy (Verified 08/08/17 04:22) Rash oxycodone HCl [From Percocet] Allergy (Verified 08/08/17 04:22) Itching tramadol HCl [From Ultram] Allergy (Verified 08/08/17 04:22) Itching Medications to take at Discharge BusPIRone [Buspar] 10 mg PO TID 02/03/14 Clopidogrel Bisulfate [Plavix] 75 mg PO DAILY 02/03/14 Duloxetine Hcl [Cymbalta] 30 mg PO DAILY 02/03/14 Levothyroxine [Synthroid] 50 mcg PO TUTH 02/03/14 Levothyroxine [Synthroid] 75 mcg PO SUMOWEFRSA 02/03/14 Metoprolol Tartrate [Lopressor (beta kelin)] 50 mg PO BID 02/03/14 Multivitamins,Therapeutic [Multivitamin] 1 tablet PO DAILY 02/03/14 Pravastatin [Pravachol] 80 mg PO QHS 02/03/14 [place]-3 Fatty Acids [Fish Oil] 1,500 mg PO DAILY 10/20/15 Nitroglycerin [Nitrostat] 0.4 mg SUBLINGUAL Q5M PRN 06/10/16 Aspirin [Aspirin, Baby] 81 mg PO DAILY@0800 09/24/16 Amlodipine [Norvasc] 10 mg PO DAILY #0 09/25/16 Loratadine 10 mg PO DAILY 05/27/17 Magnesium 500 mg PO DAILY 05/27/17 L.acidoph,Paracasei, B.lactis [Probiotic] 1 each PO DAILY 02/11/18 Primary Care Physician: Teresa Boggs DO [Primary Care Provider] - Please follow up with your Primary Care Physician in: in 3 weeks Please Follow Up With: Dustin Lemus MD When: as directed
--- NOTE | 2017-08-09 22:58 | DS.PCM_ITS ---
Discharge Date and Diagnosis Date of Admission: 08/08/17 Date of Discharge: 08/09/17 - Primary Discharge Diagnosis #1 musculoskeletal chest pain #2 coronary artery disease - Secondary Discharge Diagnosis Chronic Problems S/P PTCA (percutaneous transluminal coronary angioplasty) (Chronic) S/P CABG x 2 (Chronic) Right foot pain (Chronic) Painful orthopaedic hardware (Chronic) Former smoker (Chronic) Z87.891 Basal cell carcinoma of neck (Chronic) C44.41 2 cm basal cell carcinoma scar right neck Neoplasm of skin of back (Chronic) D49.2 6 mm lesion left middle medial back Benign essential hypertension (Chronic) Bipolar disorder (Chronic) CAD (coronary artery disease) (Chronic) Hyperlipidemia (Chronic) Hypothyroidism (Chronic) history of ischemic stroke (Chronic) Seizure disorder (Chronic) Hospital Course and Treatment Operations: None Procedures: Cardiac catheterization Summary of Care Provided: The patient is a 61 year old F in the emergency room at [facility] with chief complaint of chest pain, workup in the emergency room included an EKG which showed nonspecific ST changes, troponin was negative, chest x-ray showed no acute disease. Patient was placed in observation status on PCU, serial enzymes were obtained which were negative, patient was seen in consultation by cardiology who recommended that a cardiac catheterization be performed due to her history of coronary artery disease. On 08/09/17, a cardiac catheterization was performed which showed no change from her previous cardiac catheterization no evidence of any occlusive coronary disease. On 08/09/17, patient was seen and examined by myself and felt to be in stable condition for discharge home, she was discharged on a Medrol Dosepak for presumed musculoskeletal and arthritic chest pain. Discharge Activity: Return to Normal Activity Weight Bearing Status: Full weight bearing Home Medications: Medications to take at Discharge BusPIRone [Buspar] 10 mg PO TID 02/03/14 Clopidogrel Bisulfate [Plavix] 75 mg PO DAILY 02/03/14 Duloxetine Hcl [Cymbalta] 30 mg PO DAILY 02/03/14 Levothyroxine [Synthroid] 50 mcg PO TUTH 02/03/14 Levothyroxine [Synthroid] 75 mcg PO SUMOWEFRSA 02/03/14 Metoprolol Tartrate [Lopressor (beta kelin)] 50 mg PO BID 02/03/14 Multivitamins,Therapeutic [Multivitamin] 1 tablet PO DAILY 02/03/14 Pravastatin [Pravachol] 80 mg PO QHS 02/03/14 [place]-3 Fatty Acids [Fish Oil] 1,500 mg PO DAILY 10/20/15 Nitroglycerin [Nitrostat] 0.4 mg SUBLINGUAL Q5M PRN 06/10/16 Aspirin [Aspirin, Baby] 81 mg PO DAILY@0800 09/24/16 Amlodipine [Norvasc] 10 mg PO DAILY #0 09/25/16 Loratadine 10 mg PO DAILY 05/27/17 Magnesium 500 mg PO DAILY 05/27/17 L.acidoph,Paracasei, B.lactis [Probiotic] 1 each PO DAILY 08/08/17 MethylPREDNISolone DosePak [Medrol DosePak] 4 mg PO UD #1 box 08/09/17 Following Prescrptions Were Given to Patient: MethylPREDNISolone DosePak [Medrol DosePak] 4 mg PO UD #1 box Primary Care Physician: Teresa Boggs DO [Primary Care Provider] - Please follow up with your Primary Care Physician in: in 3 weeks Please Follow Up With: Dustin Lemus MD When: as directed Disposition: Home Minutes spent on discharge:: 25 Patient Condition:: Stable Meaningful Use Info Meaningful Use Diagnoses (Choose all that apply): None applicable Code Visit OBSV E&M: 32106 Observation care discharge
== END 2017-08-09 15:31 | disposition home or self-care (01) ==
LOC: ED 01:06 → PCU 03:42
PROVIDERS: Internal Medicine Cardiovascular Disease; Admitting Provider Internal Medicine; Emergency Provider Emergency Medicine; Family Provider Family Medicine; PCP Family Medicine; Visit Provider Internal Medicine
DX: R07.89 Other chest pain (principal); I25.10 Atherosclerotic heart disease of native coronary artery without angina pectoris; I10 Essential (primary) hypertension; E78.5 Hyperlipidemia, unspecified; F31.9 Bipolar disorder, unspecified; E03.9 Hypothyroidism, unspecified; G40.909 Epilepsy, unspecified, not intractable, without status epilepticus; Z79.899 Other long term (current) drug therapy; Z79.02 Long term (current) use of antithrombotics/antiplatelets; Z79.82 Long term (current) use of aspirin; Z86.73 Personal history of transient ischemic attack (TIA), and cerebral infarction without residual deficits; Z95.5 Presence of coronary angioplasty implant and graft; Z87.891 Personal history of nicotine dependence; Z85.828 Personal history of other malignant neoplasm of skin; M79.7 Fibromyalgia; K58.9 Irritable bowel syndrome, unspecified; I25.2 Old myocardial infarction; F43.12 Post-traumatic stress disorder, chronic; R06.02 Shortness of breath; K21.9 Gastro-esophageal reflux disease without esophagitis
CPT/HCPCS: 36415; 71045; 80048; 80053; 80061; 83735; 84443; 84484; 85025; 85610; 85730; 93005; 93306; 93459; 96365; 96366; 96372; 96375; 96376; 99152; 99153; 99218; 99285; J7030; Q9967; A4216; C1769; C1894; G0378

== ENCOUNTER → 2018-01-13 11:20 | Outpatient (CLI) | payer MEDICARE, SELFPAY ==
[2018-01-13 12:23] LABS: Absolute Lymphocyte Count 1.77 X10^3/ul (0.83-4.51); Basophil# 0.03 X10^3/uL; Basophil% 0.6 % (0-1); Eosinophil# 0.16 X10^3/uL; Hematocrit 42.5 % (37-47); Hemoglobin 14.1 g/dl (12.0-15.0); Lymphocyte # 1.77 X10^3/ul (4.0); Lymphocyte % 32.8 % (19-41); Mean Corp Hgb Conc 33.2 g/gl (32-36); Mean Corpuscular Hgb 30.6 pg (27.0-32.0); Mean Corpuscular Volume 92.2 fL (81-99); Monocyte# 0.46 X10^3/uL; Monocyte% 8.5 % (0-10); Neutrophil # 2.97 X10^3/uL (2.7-7.7); Neutrophil % 54.9 % (47-70); Platelet Count 258 K/mm3 (150-450); RBC Distribution Width SD 43.1 fl (35.1-43.9); Red Blood Count 4.61 M/mm3 (4.2-5.4); White Blood Count 5.4 K/mm3 (4.4-11.0)
[2018-01-13 12:36] LABS: POSITIVE COUNT NO; POSITIVE DIFFERENTIAL NO; POSITIVE MORPHOLOGY NO
[2018-01-13 13:01] LABS: ALB/GLOB Ratio 1.1 RATIO (0.9-2.4); AST(SGOT) 25 U/L (15-37); Alanine Aminotransfer ALT/SGPT 27 U/L (13-56); Albumin, Serum 3.9 g/dL (3.2-5.0); Alkaline Phosphatase 65 U/L (45-117); Anion Gap 11 (5-15); BUN 20 mg/dL (7-18); BUN/Creat Ratio 18.3 RATIO (10-20); Calcium,Total 9.2 mg/dL (8.5-10.1); Chloride 106 mmol/L (98-107); Creatinine, Serum 1.09 mg/dL (0.55-1.02); EST Glomerular Filtration Rate 54 mL/min (>60); Est Glom Filt Rate - Afr Amer 65 mL/min (>60); Globulin 3.5 g/dL (2.2-4.2); Glucose 105 mg/dL (74-106); Protein, Total 7.4 g/dL (6.4-8.2); Sodium Level 139 mmol/L (136-145); Thyroid Stim Hormone (TSH) 2.46 uIU/mL (0.358-3.74)
== END ==
PROVIDERS: Visit Provider Family Medicine
DX: E03.9 Hypothyroidism, unspecified (principal); E78.5 Hyperlipidemia, unspecified; I10 Essential (primary) hypertension; R53.83 Other fatigue
CPT/HCPCS: 36415; 80053; 84439; 84443; 84480; 85025

== ENCOUNTER → 2018-01-31 09:57 | Outpatient (CLI) | payer MEDICARE, MEDICAID, SELFPAY ==
--- NOTE | 2018-01-31 09:59 | RAD_ITS ---
STUDY: X-RAY CHEST REASON FOR EXAM: Female, 62 years old. Fatigue. TECHNIQUE: PA and lateral views of the chest. COMPARISON: October 20, 2015 FINDINGS: The lungs are clear and expanded. There is no demonstrated pleural abnormality. Sternal cerclage wires are present from a prior sternotomy. The cardiac silhouette is stable. Normal mediastinum and marisabel. Normal visualized pulmonary arteries. Normal visualized aortic arch and descending thoracic aorta. Normal visualized thoracic spine. Normal visualized ribs, clavicles, and shoulders. There is no demonstrated abnormality of the visualized soft tissue structures of the upper abdomen. RAD/Chest PA and Lateral IMPRESSION: No acute cardiopulmonary process. Electronically Signed: Teodora Dubon MD at 21:16 EDT Tel , Service support ,
[2018-01-31 11:32] LABS: Absolute Lymphocyte Count 1.53 X10^3/ul (0.83-4.51); Absolute Neutrophil Count 4.3 X10^3/uL (2.0-7.7); Basophil# 0.03 X10^3/uL; Basophil% 0.5 % (0-1); Eosinophil# 0.16 X10^3/uL; Eosinophils% 2.5 % (0-5); Hematocrit 41.6 % (37-47); Hemoglobin 14.5 g/dl (12.0-15.0); Lymphocyte # 1.53 X10^3/ul (4.0); Lymphocyte % 23.6 % (19-41); Mean Corp Hgb Conc 34.9 g/gl (32-36); Mean Corpuscular Volume 91.8 fL (81-99); Mean Platelet Vol. 10.3 fl (6.2-12.0); Monocyte# 0.48 X10^3/uL; Monocyte% 7.4 % (0-10); Neutrophil # 4.28 X10^3/uL (2.7-7.7); Platelet Count 259 K/mm3 (150-450); RBC Distribution Width CV 12.8 % (11.6-14.6); RBC Distribution Width SD 42.2 fl (35.1-43.9); Red Blood Count 4.53 M/mm3 (4.2-5.4); White Blood Count 6.5 K/mm3 (4.4-11.0)
[2018-01-31 11:34] LABS: POSITIVE COUNT NO; POSITIVE DIFFERENTIAL NO; POSITIVE MORPHOLOGY NO
[2018-01-31 11:54] LABS: BNP,B-Type NATRIURETIC PEPTIDE 130.1 pg/mL (0-100)
[2018-01-31 11:57] LABS: Anion Gap 7 (5-15); BUN 17 mg/dL (7-18); BUN/Creat Ratio 16.2 RATIO (10-20); Calcium,Total 9.3 mg/dL (8.5-10.1); Chloride 108 mmol/L (98-107); Creatinine, Serum 1.05 mg/dL (0.55-1.02); EST Glomerular Filtration Rate 56 mL/min (>60); Est Glom Filt Rate - Afr Amer 68 mL/min (>60); Glucose 116 mg/dL (74-106); Potassium 3.9 mmol/L (3.5-5.1); Sodium Level 137 mmol/L (136-145)
== END ==
PROVIDERS: Family Provider Family Medicine; PCP Family Medicine; Visit Provider Physician Assistant Medical
DX: E03.9 Hypothyroidism, unspecified (principal); E78.5 Hyperlipidemia, unspecified; I25.10 Atherosclerotic heart disease of native coronary artery without angina pectoris; R07.9 Chest pain, unspecified; R06.02 Shortness of breath
CPT/HCPCS: 36415; 71046; 80048; 83880; 84484; 85025

== ENCOUNTER → 2018-03-08 10:53 | Outpatient (CLI) | payer MEDICARE, SELFPAY ==
[2018-03-08 13:00] LABS: AST(SGOT) 30 U/L (15-37); Alanine Aminotransfer ALT/SGPT 31 U/L (13-56); Alkaline Phosphatase 69 U/L (45-117); Bilirubin, Direct 0.17 mg/dL (0.00-0.30); Cholesterol 221 mg/dL (200); Globulin 3.8 g/dL (2.2-4.2); High Density Lipoprotein 53 mg/dL; Protein, Total 7.8 g/dL (6.4-8.2); Triglycerides 236 mg/dL; Very Low Density Lipoprotein 47 mg/dL (5-40)
== END ==
PROVIDERS: Family Provider Family Medicine; PCP Family Medicine; Visit Provider Internal Medicine Cardiovascular Disease
DX: I10 Essential (primary) hypertension (principal); E78.5 Hyperlipidemia, unspecified
CPT/HCPCS: 36415; 80061; 80076

== ENCOUNTER → 2018-03-24 14:05 | Outpatient (CLI) | payer MEDICARE, SELFPAY | PROVIDERS: Family Provider Family Medicine; PCP Family Medicine; Referring Provider Family Medicine; Visit Provider Family Medicine | DX: R19.7 Diarrhea, unspecified (principal) | CPT/HCPCS: 83630; 87493 ==

== ENCOUNTER → 2018-03-30 07:45 | Outpatient (CLI) | payer MEDICARE, MEDICAID, SELFPAY ==
--- NOTE | 2018-03-30 07:48 | CT_ITS ---
STUDY: CT ABDOMEN AND PELVIS WITH CONTRAST REASON FOR EXAM: Female, 62 years old. Left lower quadrant pain. RADIATION DOSAGE (If Supplied By Facility): CTDIvol = ( 15.11 ) mGy, DLP = ( 941.53 ) mGycm TECHNIQUE: Transaxial images were obtained from the dome of the diaphragm to the symphysis pubis without oral contrast. 100 ml of Isovue 300 contrast was administered. Sagittal and coronal images were reconstructed. Individualized dose optimization techniques were used for this CT. COMPARISON: None. FINDINGS: The visualized lung bases are unremarkable. The visualized portions of the heart are within normal limits. Few cysts are seen in the liver the largest is in segment #6 measures 5 mm image #32. Normal gallbladder and extrahepatic biliary system. Normal spleen. Normal pancreas. Normal bilateral adrenal glands. Multiple cysts are seen in the right kidney largest measures 2.7 cm. Normal left kidney. Normal visualized stomach. Normal small intestine. Normal colon. There is non-visualization of the appendix. The cecum is displaced medially consistent with mobile cecum. There is diffuse atherosclerotic calcification of the abdominal aorta, without a demonstrated aneurysm. Normal inferior vena cava. Normal retroperitoneum. Normal urinary bladder. Normal abdominal wall. There are diffuse degenerative changes of the visualized lumbar spine. CT/Abdomen/Pelvis WITH Contrast IMPRESSION: No acute findings of the abdomen and pelvis. Electronically Signed: Domingo La MD at 12:29 EDT Tel , Service support ,
== END ==
PROVIDERS: Family Provider Family Medicine; PCP Family Medicine; Visit Provider Family Medicine
DX: K57.92 Diverticulitis of intestine, part unspecified, without perforation or abscess without bleeding (principal)
CPT/HCPCS: 74177; Q9967

== ENCOUNTER 2018-05-05 12:30 | Outpatient (RCR) | payer MEDICARE, MEDICAID, SELFPAY ==
--- NOTE | 2018-03-11 08:29 | HP.PTEVAL_ITS ---
Patient's Visit Information NISSA TROTTER is a 62 year old F referred to Physical Therapy by Tigist Cerrato DPM with a diagnosis of L plantarfascitis. Date of Evaluation: 03/11/18 Physical Therapist: Christiano Coronado PT, - Visit Plan Frequency: 2x /Week Duration: 4-6 Weeks Plan: L ankle stretching (DF), L foot DTR, foam roller, stick roll out, US, CP - Subjective Subjective: Pt reports she has had L foot plantarfascitis for 1 1/2 years. Pt reports she has been receiving treatments over this time. Pt notes she had an xray which revealed a heel spur on her calcaneous. Pt notes she has been stretching, and recently received an injection which made a big difference overall. Pt notes no PMHx prior to this occurring. Pt reports most of her pain is on the ant portion of her calcaneous, but the medial and lateral heel is very sore too. Pt notes sleep diff secondary to pain. Pain is constant in nature. Pt reports her pain gets worse as the day goes on. Pt notes ice is what gives her the greatest releif. L heel pain 6/10 at rest, 8/10 at worst. - Pain L heel Pain Intensity (Out of 10): 6 Pain Intensity Range: 8 - Objective Observation: Pt stands with pronated arches. Valgus of B knees. Pt is very sore with light palpation to her plantar fascia origin. Neuro: B LE sensation is WNL to light touch. Ankle ROM: R ankle DF= 9, PF= 60; L ankle DF= 10, PF= 60 degrees. MMT: B ankles are 5/5 throughout. Gait: Pt ambulates with early pronation in stance phase. - Goals Goal 1:: Decrease L heel pain x 50% to aid with sleep Goal Time Frame: 4-6 Weeks Goal 2:: Increase L ankle DF ROM x 5-10 degrees to aid with decreasing L heel pain Goal Time Frame: 4-6 Weeks Goal 3:: I with HEP Goal Time Frame: 4-6 Weeks - Rehabilitation Potential Physical Therapy Diagnosis: L foot pain and limited ambulation secondary to L plantarfascitis Rehabilitation Potential: Good - Anticipated Interventions Patient/Client Instruction: Educate patient on: Condition, Plan of Care For the Purpose of:: To improve self management Therapeutic Exercise to Include: Flexibilty training, Passive ROM, Active ROM For the Purpose of:: To decrease pain, To increase ROM, To improve muscle performance and motor function Manual Therapy Techniques to Include: Soft tissue mobilization For the Purpose of:: To decrease pain, To increase ROM Cryotherapy (ice pack, ice massage): Yes Ultrasound (thermal/non thermal): Yes For the Purpose of:: To decrease pain Thank you for the opportunity to evaluate your patient. For Medicare and Medicare HMO plans, please review the plan of care and approve it. It will need to be FAXED BACK to us at [phone] for Medicare purposes. Please let me know if there are questions or concerns regarding this plan of care. Physician Signature: Date:
--- NOTE | 2018-05-05 12:55 | HP.PTDCSUM ---
HP - PT D/C Summary It has been my pleasure to treat NISSA TROTTER under orders from Tigist Cerrato DPM, for the diagnosis of L plantarfascitis for a total of 8 visit(s). Discharge Date: Please see the following information for a summary of their discharge status. - Subjective Subjective: feels ready to be done at this time. Pt reports the tens unit really helps - Pain L heel Pain Intensity (Out of 10): 1 - Overall Improvement % Improvement: 80 - Objective Objective/Function: L ankle DF ROM= 11 degrees. L ankle pain 07/07. Pt is I with HEP. Rx goals achieved - Goals Goal 1:: Decrease L heel pain x 50% to aid with sleep Goal Progress: Goal Met Goal 2:: Increase L ankle DF ROM x 5-10 degrees to aid with decreasing L heel pain Goal Progress: Goal Met Goal 3:: I with HEP Goal Progress: Goal Met - Plan Plan: Discharge - D/C Information If there are questions or concerns regarding this patient's physical therapy, please feel free to call me at [phone]. Thank you for the referral of this patient. Sincerely, Christiano Coronado, PT,
== END 2018-05-05 19:00 | disposition home or self-care (01) ==
LOC: PT 12:30
PROVIDERS: Family Provider Family Medicine; PCP Family Medicine; Visit Provider Podiatrist
DX: M72.0 Palmar fascial fibromatosis [Dupuytren] (principal)
CPT/HCPCS: 97035; 97140; 97161; 97530

== ENCOUNTER → 2018-05-14 09:00 | Outpatient (CLI) | payer MEDICARE, MEDICAID, SELFPAY ==
--- NOTE | 2018-05-14 09:08 | BI_ITS ---
MAMMOGRAPHY - BILATERAL SCREENING REASON FOR EXAM: Female, 62 years old. Routine annual screening examination. PERTINENT HISTORY: Non-contributory. TECHNIQUE: Digital bilateral breast james (3D mammographic acquisition) in the CC and MLO projections. 2-D mediolateral oblique (MLO) and craniocaudad (CC) views of both breasts were obtained. CAD: Full Field Digital Mammography with Computer Added Detection was performed. COMPARISON: Comparison is made with prior study dated April 27, 2017 and April 17, 2016. FINDINGS: Breast Composition: The breasts are almost entirely fatty. There are no dominant masses or suspicious calcifications. No other significant abnormalities are identified. There has been no significant change since the prior study. BI/SCREENING MAMM (CAD), BILAT IMPRESSION: Stable bilateral screening mammogram. Yearly follow-up mammogram recommended. (A) ASSESSMENT CATEGORY: BIRADS Category 1: Negative. A letter regarding these results will be sent to the patient by the facility within 30 days. Approximately 10% of breast cancers are not detected by mammography. A normal mammogram should not delay biopsy of a clinically suspicious abnormality. [id number] Electronically Signed: Dwight Bautista MD at 15:04 EST Tel [phone], Service support ,
== END ==
PROVIDERS: Family Provider Family Medicine; PCP Family Medicine; Referring Provider Family Medicine; Visit Provider Family Medicine
DX: Z12.31 Encounter for screening mammogram for malignant neoplasm of breast (principal)
CPT/HCPCS: 77063; 77067

== ENCOUNTER 2018-07-05 07:58 | Emergency (ER) | payer MEDICARE, MEDICAID, SELFPAY ==
[2018-07-05 07:58] VITALS: BP 170/82; PULSE 65; RESP 14; TEMP 36.9; O2SAT 99; BMI 31.1
--- NOTE | 2018-07-05 08:13 | RAD_ITS ---
STUDY: X-RAY - LUMBAR SPINE REASON FOR EXAM: Female, 62 years old. Back pain following a recent fall. TECHNIQUE: 3 view(s) of the lumbar spine were obtained. COMPARISON: Comparison is made with prior study dated December 21, 2016. FINDINGS: Normal lumbar lordosis. There is no substantial scoliosis. There is a normal alignment of the vertebrae. There is multilevel endplate spondylosis of the lumbar vertebrae. There is multi-level degenerative disc disease with multi-level disc space narrowing. There is atherosclerotic calcification of the abdominal aorta without a demonstrated aneurysm. RAD/Lumbar Spine 2 or 3 Views IMPRESSION: Degenerative changes of the spine, as detailed above. Stable examination. Electronically Signed: Dwight Bautista MD at 10:21 EST Tel [phone], Service support ,
--- NOTE | 2018-07-05 08:19 | ED.DCSUM_ITS ---
- ER Visit Summary Date of Service: 07/05/18 Chief Complaint: Back pain History of Present Illness: The patient is a 62 F who lives with a roommate and normally ambulates well but has chronic spinal stenosis presents with back pain. About 3 days ago she tripped did not hit her back however she has had a gradual onset of worsening back pain since then. Now it is difficult to stand up from seated position. Pain is the same as her normal pain just worse. She does not take any analgesia for home but does see pain management for spinal injections. She has chronic bladder incontinence which has not changed. She has no urinary retention symptoms. She has no saddle anesthesia. She has no abdominal pain. Pain is moderate currently, however when she moves it can be severe. It is achy. Physical Examination: Not appear in acute distress. Moist mucous membranes, no obvious facial deformity No C-spine tenderness supple neck. Regular rate and rhythm without any obvious murmurs Clear lungs bilaterally speaking in full sentences without any obvious respiratory distress Abdomen soft and nontender no guarding or rebound. No suprapubic mass. Lumbar pain is palpated around L2-L3 region. There is point tenderness. There is also paraspinal tenderness and spasm. Skin does not show any obvious rashes or lesions, no trauma. Neurological exam shows normal patellar reflexes, 1+ Achilles reflexes bilaterally. Normal plantar flexion of both feet normal dorsiflexion of both gr eat toes. Emergency Department Course and Treatment: Unremarkable x-ray and workup. She was given analgesia and improved she was able to get to a bedside commode and ambulate.. Her pain management physician will be in the office tomorrow, she can follow-up with him. Otherwise I will give her a very small prescription for Percocet at home, she is not currently on opiate analgesics at home. Disposition: Discharge stable condition Impression: Back pain This note was generated with [employer] dictation software. It may contain incorrect words, spelling, and punctuation that were not noted in review of the chart prior to signing ED Disposition - Plan for ED Patient: Disposition: Home or Assisted Living Chief Complaint: Back Prescriptions: Oxycodone HCl/Acetaminophen [Percocet 5/325] 1 tab PO Q6H PRN PRN 3 Days #8 tab PRN Reason: Pain Referrals: Teresa Boggs DO [Primary Care Provider] - 3-5 Days
[2018-07-05 08:50] LABS: Absolute Lymphocyte Count 1.28 X10^3/ul (0.83-4.51); Absolute Neutrophil Count 3.6 X10^3/uL (2.0-7.7); Basophil# 0.01 X10^3/uL; Basophil% 0.2 % (0-1); Eosinophils% 1.9 % (0-5); Hematocrit 40.6 % (37-47); Hemoglobin 13.7 g/dl (12.0-15.0); Lymphocyte # 1.28 X10^3/ul (4.0); Lymphocyte % 24.1 % (19-41); Mean Corp Hgb Conc 33.7 g/gl (32-36); Mean Corpuscular Hgb 31.7 pg (27.0-32.0); Mean Platelet Vol. 10.1 fl (6.2-12.0); Monocyte# 0.34 X10^3/uL; Monocyte% 6.4 % (0-10); Neutrophil # 3.57 X10^3/uL (2.7-7.7); Neutrophil % 67.2 % (47-70); POSITIVE COUNT NO; POSITIVE DIFFERENTIAL NO; POSITIVE MORPHOLOGY NO; Platelet Count 195 K/mm3 (150-450); RBC Distribution Width CV 12.9 % (11.6-14.6); RBC Distribution Width SD 44.7 fl (35.1-43.9); Red Blood Count 4.32 M/mm3 (4.2-5.4); White Blood Count 5.3 K/mm3 (4.4-11.0)
[2018-07-05 09:04] LABS: ALB/GLOB Ratio 1.4 RATIO (0.9-2.4); AST(SGOT) 25 U/L (15-37); Alanine Aminotransfer ALT/SGPT 27 U/L (13-56); Albumin, Serum 3.9 g/dL (3.2-5.0); Alkaline Phosphatase 60 U/L (45-117); Anion Gap 10 (5-15); BUN 14 mg/dL (7-18); BUN/Creat Ratio 12.4 RATIO (10-20); Calcium,Total 9.1 mg/dL (8.5-10.1); Chloride 105 mmol/L (98-107); Creatinine, Serum 1.13 mg/dL (0.55-1.02); EST Glomerular Filtration Rate 52 mL/min (>60); Est Glom Filt Rate - Afr Amer 62 mL/min (>60); Globulin 2.8 g/dL (2.2-4.2); Glucose 99 mg/dL (74-106); Potassium 3.9 mmol/L (3.5-5.1); Protein, Total 6.7 g/dL (6.4-8.2); Sodium Level 139 mmol/L (136-145)
[2018-07-05] MEDS: Morphine 4 MG/ML Syringe IV (09:12)
[2018-07-05] MEDS: Ondansetron 4 MG/2 ML Vial IV (09:12)
[2018-07-05 09:25] VITALS: BP 129/77; PULSE 67; RESP 15; O2SAT 97
--- NOTE | 2018-07-05 11:13 | ED.DEP ---
ED Disposition - Plan for ED Patient: Disposition: Home or Assisted Living Chief Complaint: Back Instructions: ED Low Back Pain Injury Prescriptions: Oxycodone HCl/Acetaminophen [Percocet 5/325] 1 tab PO Q6H PRN PRN 3 Days #8 tab PRN Reason: Pain Referrals: Teresa Boggs DO [Primary Care Provider] - 3-5 Days
[2018-07-05] MEDS: oxyCODONE 5 MG Tablet PO (11:43)
[2018-07-05 11:49] VITALS: BP 134/69; PULSE 71; RESP 15; O2SAT 96
== END 2018-07-05 11:50 | disposition home or self-care (01) ==
PROVIDERS: Emergency Provider Emergency Medicine; Family Provider Family Medicine; PCP Family Medicine
DX: M54.5 Low back pain (principal); G89.29 Other chronic pain; M79.7 Fibromyalgia; Z79.82 Long term (current) use of aspirin; Z79.899 Other long term (current) drug therapy
CPT/HCPCS: 72100; 80053; 85025; 99284; A4216; J2405

== ENCOUNTER → 2018-08-12 10:47 | Outpatient (CLI) | payer MEDICARE, SELFPAY ==
[2018-08-12 10:52] LABS: Red Blood Cells-Urine 0 SEEN /hpf (0-5); Squamous Epithelial Cells - UA 0 SEEN /hpf (5-10)
[2018-08-12 12:05] LABS: Color, Urine Yellow (Yellow); Glucose, Dipstick Normal (Normal); Ketone-Dipstick 5 mg/dl (Negative); Leukocyte Esterase-Dipstick 25 /ul (Negative); Nitrite-Dipstick Negative (Negative); Occult Blood-Urine 10 /ul (Negative); Protein-Dipstick 30 mg/dl (Negative); Urine Clarity Clear (Clear); Urine Urobilinogen 1 mg/dl (Normal)
[2018-08-12 12:15] LABS: Urine Bilirubin Dipstick 1 mg/dL (Negative)
[2018-08-12 12:29] LABS: Bacteria 1+ /hpf (None Seen); Calcium Oxalate Crystals Ur RARE /hpf (<or=2+); Mucous, Urine 4+ /hpf (<or=2+); White Blood Cells 0-5 SEEN /hpf (0-5)
== END ==
PROVIDERS: Family Provider Family Medicine; PCP Family Medicine; Visit Provider Family Medicine
DX: R35.0 Frequency of micturition (principal)
CPT/HCPCS: 81001; 87086; 87088

== ENCOUNTER → 2018-09-08 09:13 | Outpatient (CLI) | payer MEDICARE, SELFPAY ==
[2018-09-08 10:00] LABS: Absolute Lymphocyte Count 1.79 X10^3/ul (0.83-4.51); Absolute Neutrophil Count 3.6 X10^3/uL (2.0-7.7); Basophil# 0.05 X10^3/uL; Basophil% 0.8 % (0-1); Eosinophil# 0.23 X10^3/uL; Eosinophils% 3.7 % (0-5); Hematocrit 42.6 % (37-47); Hemoglobin 14.2 g/dl (12.0-15.0); Lymphocyte # 1.79 X10^3/ul (4.0); Lymphocyte % 29.1 % (19-41); Mean Corp Hgb Conc 33.3 g/gl (32-36); Mean Corpuscular Hgb 31.6 pg (27.0-32.0); Mean Corpuscular Volume 94.9 fL (81-99); Mean Platelet Vol. 10.3 fl (6.2-12.0); Monocyte# 0.47 X10^3/uL; Monocyte% 7.6 % (0-10); Neutrophil # 3.61 X10^3/uL (2.7-7.7); Neutrophil % 58.6 % (47-70); Platelet Count 261 K/mm3 (150-450); RBC Distribution Width CV 12.3 % (11.6-14.6); RBC Distribution Width SD 41.9 fl (35.1-43.9); Red Blood Count 4.49 M/mm3 (4.2-5.4); White Blood Count 6.2 K/mm3 (4.4-11.0)
[2018-09-08 10:02] LABS: POSITIVE COUNT NO; POSITIVE DIFFERENTIAL NO; POSITIVE MORPHOLOGY NO
[2018-09-08 10:40] LABS: ALB/GLOB Ratio 1.2 RATIO (0.9-2.4); AST(SGOT) 27 U/L (15-37); Alanine Aminotransfer ALT/SGPT 25 U/L (13-56); Albumin, Serum 3.8 g/dL (3.2-5.0); Alkaline Phosphatase 67 U/L (45-117); Anion Gap 8 (5-15); BUN 17 mg/dL (7-18); Bilirubin, Direct 0.17 mg/dL (0.00-0.30); Chloride 110 mmol/L (98-107); Cholesterol 168 mg/dL (200); Creatinine, Serum 1.06 mg/dL (0.55-1.02); EST Glomerular Filtration Rate 56 mL/min (>60); Est Glom Filt Rate - Afr Amer 67 mL/min (>60); Free T3 2.7 pg/mL (2.18-3.98); Globulin 3.1 g/dL (2.2-4.2); Glucose 105 mg/dL (74-106); High Density Lipoprotein 56 mg/dL; Potassium 3.9 mmol/L (3.5-5.1); Protein, Total 6.9 g/dL (6.4-8.2); Sodium Level 140 mmol/L (136-145); Thyroid Stim Hormone (TSH) 0.46 uIU/mL (0.358-3.74); Triglycerides 205 mg/dL; Very Low Density Lipoprotein 41 mg/dL (5-40)
== END ==
PROVIDERS: Family Provider Family Medicine; PCP Family Medicine; Referring Provider Internal Medicine Cardiovascular Disease; Visit Provider Internal Medicine Cardiovascular Disease
DX: E03.9 Hypothyroidism, unspecified (principal); I10 Essential (primary) hypertension; R53.83 Other fatigue; I25.10 Atherosclerotic heart disease of native coronary artery without angina pectoris; E78.5 Hyperlipidemia, unspecified
CPT/HCPCS: 36415; 80053; 80061; 82248; 84439; 84443; 84481; 85025

== ENCOUNTER → 2018-11-29 14:25 | Outpatient (CLI) | payer MEDICARE, MEDICAID, SELFPAY ==
[2018-11-29 14:23] VITALS: BMI 31.1
--- NOTE | 2018-11-29 14:29 | RAD_ITS ---
STUDY: X-RAY - LEFT HAND REASON FOR EXAM: Female, 63 years old. Pain at the base of the thumb following a fall. TECHNIQUE: 3 view(s) of the hand. COMPARISON: None. FINDINGS: Normal radiocarpal articulation. Normal distal radioulnar joint. Normal visualized carpal bones. Normal carpal articulations There is degenerative arthrosis of the carpometacarpal articulation of the thumb with lateral subluxation of the first metacarpus. Normal second through fifth carpometacarpal joints. Normal metacarpi. Normal metacarpophalangeal joint of the thumb. Normal interphalangeal joint of the thumb. Normal proximal and distal phalanges of the thumb. Normal metacarpophalangeal joints of the second through fifth fingers. Normal proximal and distal interphalangeal joints of the second through fifth fingers. Normal phalanges of the second through fifth fingers. Soft tissue swelling. RAD/Hand Min 3 Views IMPRESSION: Degenerative changes with lateral subluxation of the first carpometacarpal joint. Electronically Signed: Dwight Bautista, at 15:03 EDT , Service support ,
== END ==
PROVIDERS: Family Provider Family Medicine; PCP Family Medicine; Referring Provider Physician Assistant Surgical; Visit Provider Physician Assistant Surgical
DX: S60.222A Contusion of left hand, initial encounter (principal)
CPT/HCPCS: 73130

== ENCOUNTER → 2019-03-15 09:32 | Outpatient (CLI) | payer MEDICARE, SELFPAY ==
[2018-12-05 08:29] VITALS: BMI 31.1
[2019-03-15 13:00] LABS: ALB/GLOB Ratio 1.1 RATIO (0.9-2.4); AST(SGOT) 30 U/L (15-37); Alanine Aminotransfer ALT/SGPT 31 U/L (13-56); Albumin, Serum 3.8 g/dL (3.2-5.0); Alkaline Phosphatase 63 U/L (45-117); Anion Gap 6 (5-15); BUN 21 mg/dL (7-18); BUN/Creat Ratio 20.2 RATIO (10-20); Chloride 107 mmol/L (98-107); Creatinine, Serum 1.04 mg/dL (0.55-1.02); EST Glomerular Filtration Rate 57 mL/min (>60); Est Glom Filt Rate - Afr Amer 69 mL/min (>60); Free T3 2.3 pg/mL (2.18-3.98); Globulin 3.5 g/dL (2.2-4.2); Glucose 93 mg/dL (74-106); Potassium 4.2 mmol/L (3.5-5.1); Protein, Total 7.3 g/dL (6.4-8.2); Sodium Level 137 mmol/L (136-145); T4 Free Direct 1.12 ng/dL (0.76-1.46)
== END ==
PROVIDERS: Family Provider Family Medicine; PCP Family Medicine; Visit Provider Family Medicine
DX: E03.9 Hypothyroidism, unspecified (principal); Z51.81 Encounter for therapeutic drug level monitoring
CPT/HCPCS: 36415; 80053; 84439; 84443; 84481

== ENCOUNTER → 2019-05-19 10:27 | Outpatient (CLI) | payer MEDICARE, SELFPAY ==
[2018-12-05 08:29] VITALS: BMI 31.1
--- NOTE | 2019-05-19 10:52 | BI_ITS ---
MAMMOGRAPHY - BILATERAL SCREENING REASON FOR EXAM: Female, 63 years old. Routine annual screening examination. PERTINENT HISTORY: Non-contributory. TECHNIQUE: Digital bilateral breast connor (3D mammographic acquisition) in the CC and MLO projections. 2-D mediolateral oblique (MLO) and craniocaudad (CC) views of both breasts were obtained. CAD: Full Field Digital Mammography with Computer Added Detection was performed. COMPARISON: Comparison is made with prior study May 14, 2018 and April 27, 2017. FINDINGS: Breast Composition: The breasts are almost entirely fatty. There are no dominant masses or suspicious calcifications. No other significant abnormalities are identified. There has been no significant change since the prior study. BI/SCREEN MAMM (CAD) W/CONNOR BILAT IMPRESSION: Stable bilateral screening mammogram. Yearly follow-up mammogram recommended. (A) ASSESSMENT CATEGORY: BIRADS Category 1: Negative. A letter regarding these results will be sent to the patient by the facility within 30 days. Approximately 10% of breast cancers are not detected by mammography. A normal mammogram should not delay biopsy of a clinically suspicious abnormality. [id number] Electronically Signed: Dwight Bautista, at 14:26 EST , Service support ,
== END ==
PROVIDERS: Family Provider Family Medicine; PCP Family Medicine; Referring Provider Family Medicine; Visit Provider Family Medicine
DX: Z12.31 Encounter for screening mammogram for malignant neoplasm of breast (principal)
CPT/HCPCS: 77063; 77067

== ENCOUNTER → 2019-09-14 11:34 | Outpatient (CLI) | payer MEDICARE, SELFPAY ==
[2018-12-05 08:29] VITALS: BMI 31.1
[2019-09-14 17:03] LABS: Free T3 2.7 pg/mL (2.18-3.98); T4 Free Direct 1.04 ng/dL (0.76-1.46)
== END ==
PROVIDERS: PCP Family Medicine; Visit Provider Family Medicine
DX: E03.9 Hypothyroidism, unspecified (principal)
CPT/HCPCS: 36415; 84439; 84443; 84481

== ENCOUNTER → 2019-09-20 07:10 | Outpatient (CLI) | payer MEDICARE, SELFPAY ==
[2018-12-05 08:29] VITALS: BMI 31.1
--- NOTE | 2019-09-20 07:17 | MRI_ITS ---
STUDY: MRI LUMBAR SPINE WITHOUT CONTRAST REASON FOR EXAM: Female, 64 years old. radiculopathy, upper and lower extremity pain,numbness,tingling TECHNIQUE: Standardized fat and water weighted pulse sequences were obtained in the sagittal and axial planes. COMPARISON: X-ray 07/05/2018, MRI 10/07/2016 FINDINGS: T12-L1: Normal endplates. Normal disc height, hydration and morphology. Normal bilateral facet joints. Normal central canal and bilateral lateral recesses. Normal bilateral intervertebral neural foramina. Normal lumbar lordosis. There is no substantial scoliosis. Normal conus medullaris that terminates at the L1. L1-2: Normal endplates. Normal disc height, hydration and morphology. Normal bilateral facet joints. Normal central canal and bilateral lateral recesses. Normal bilateral intervertebral neural foramina. L2-3: No change in the mild bilobed disc protrusion produces minimal spinal stenosis and no neural foraminal stenosis. L3-4: Mild bilateral facet hypertrophy and ligament flavum hypertrophy. No change in mild bilobed disc protrusion which produces mild spinal stenosis and mild bilateral neural foraminal stenosis. L4-5: Normal endplates. Normal disc height, hydration and morphology. Normal bilateral facet joints. Normal central canal and bilateral lateral recesses. Normal bilateral intervertebral neural foramina. L5-S1: Mild bilateral facet hypertrophy. No change in the 2 mm retrolisthesis of L5 on S1 with mild broad disc protrusion which produces mild spinal stenosis with mild bilateral lateral recess stenosis and mild bilateral neural foraminal stenosis. Normal visualized sacral ala. Normal visualized paraspinous soft tissue structures. MRI/Spine Lumbar (Routine) IMPRESSION: No change from 10/07/2016. Electronically Signed: Bhupinder Bradley MD at 8:56 EDT Tel , Service support ,
== END ==
PROVIDERS: PCP Family Medicine; Referring Provider Family Medicine; Visit Provider Family Medicine
DX: M48.061 Spinal stenosis, lumbar region without neurogenic claudication (principal); M54.16 Radiculopathy, lumbar region
CPT/HCPCS: 72148

== ENCOUNTER 2019-11-02 22:38 | Observation (INO) | payer MEDICARE, SELFPAY ==
[2018-12-05 08:29] VITALS: BMI 31.1
[2019-11-02 22:39] VITALS: BP 126/60; PULSE 60; RESP 16; TEMP 36.6; O2SAT 98; BMI 33.4
--- NOTE | 2019-11-02 22:46 | ED.RN ---
CALLED FOR EKG PER RN REQUEST, PULLED OLD EKGS FOR
--- NOTE | 2019-11-02 22:57 | EKG12_ITS ---
Test Reason : CP Blood Pressure : / mmHG Vent. Rate : 063 BPM Atrial Rate : 063 BPM P-R Int : 128 ms QRS Dur : 086 ms QT Int : 448 ms P-R-T Axes : 044 024 037 degrees QTc Int : 458 ms Normal sinus rhythm Possible Left atrial enlargement Borderline ECG Confirmed by JANNET METCALF, ELISHA ([id number]), script editor DONNA TROTTER ([id number]) on 11/06/2019 2:58:52 PM Referred By: Braeden Burch Confirmed By:ELISHA POWER MD
--- NOTE | 2019-11-02 23:09 | ED.VIS.GEN ---
History of Present Illness Chief Complaint: Chest Pain Informant: Patient Narrative: Patient presents the emergency room for evaluation of fatigue and chest pain. Patient has a history of coronary artery bypass grafting and stenting. She follows with Dr. Lemus. Last heart catheterization was in 2016. She is due for her next cardiology checkup in November. Patient states that over the past several weeks has had increasing fatigue especially with climbing stairs to do laundry. She states that she typically walks miles and does not have any problems. Today she was cleaning and developed chest pressure that would radiate up into her neck and into the bilateral shoulders. She noted some shortness of breath with it. She states that it would come and go. Tonight she was getting ready for bed and began to feel dizzy with the pressure and that is when she called squad. EMS administered aspirin and nitroglycerin and she had also taken some nitroglycerin at home and states that it has helped but still comes and goes. Last night while laying in bed she had a burning sensation across her chest up into her throat but states it was not like this pressure. Fatigue and pressure are similar to her symptoms that led to her CABG. Past Medical History - Allergies and Home Meds Allergies/Adverse Reactions: Allergies adhesive tape Allergy (Verified 11/02/19 22:49) Rash codeine Allergy (Verified 11/02/19 22:49) Itching doxazosin Allergy (Verified 11/02/19 22:49) DROPS HEART RATE furosemide [From Lasix] Allergy (Verified 11/02/19 22:49) Itching latex Allergy (Verified 11/02/19 22:49) Rash lisinopril Allergy (Verified 11/02/19 22:49) Angioedema oxycodone HCl [From Percocet] Allergy (Verified 11/02/19 22:49) Itching tramadol HCl [From Ultram] Allergy (Verified 11/02/19 22:49) Itching isosorbide mononitrate Adverse Reaction (Intermediate, Uncoded 11/02/19 22:49) Dizzy, not feeling well Primary Care Physician: Teresa Boggs DO [Primary Care Provider] - Surgical History: coronary bypass surgery, - - cath with a stent in 2012 Smoking Status: Former smoker - Family History Maternal Family History: Family History (Last Reviewed 11/29/18 @ 14:22 by Brittany Rodriguez) Father CAD (coronary artery disease) Hypertension Mother CAD (coronary artery disease) Hypertension Sister Hypertension Family History: Reports: Heart Disease Paternal Family History: Family History (Last Reviewed 11/29/18 @ 14:22 by Brittany Rodriguez) Father CAD (coronary artery disease) Hypertension Mother CAD (coronary artery disease) Hypertension Sister Hypertension Family History: Reports: Heart Disease Review of Systems General: Reports: Malaise. Denies: Chills, Fever, Sweats Eyes: Denies: Visual changes - bilaterally, Diplopia ENT: Denies: Rhinorrhea, Sore throat Cardiovascular: Reports: Chest pain. Denies: Palpitations Respiratory: Reports: Dyspnea. Denies: Cough, Dyspnea on exertion Gastrointestinal: Denies: Abdominal pain, Nausea, Vomiting, Diarrhea, Melena, Hematochezia Genitourinary: Denies: Dysuria, Hematuria, Frequency Musculoskeletal: Denies: Back pain, Extremity Pain Skin: Denies: Rash, Wounds Neurological: Denies: Headache, Weakness, Numbness Physical Exam Vital Signs/Narrative: Vital Signs Temp Pulse Resp BP Pulse Ox 11/02/19 22:39 97.9 F 60 16 126/60 H 98 Inital Vital Signs reviewed: Yes General: Well nourished, Well developed, No Acute Distress Head: Normocephalic, Atraumatic Eyes: Perrl, EOMI ENT: Moist mucous membranes, No rhinorrhea Neck: Supple, Nontender Cardiovascular: Regular rate, Regular rhythm, No murmurs Respiratory: No distress, CTA bilaterally, Chest nontender Abdomen: Soft, Nontender, Nondistended, Normal bowel sounds Back: Nontender, Normal Inspection Extremities: Nontender, No edema Skin: Normal color, No rash Neurological: Alert, Oriented x3, Cranial nerves II-XII grossly intact, Normal Strength, Normal Sensation Psychological: Normal affect, Normal Mood Diagnostic/Tx/Re-eval - EKG Initial EKG Interpretation: Sinus Rhythm - EKG demonstrates a normal sinus rhythm at a rate of 63. There are no concerning features of ACS. When compared to 09 August 2017 no significant changes. - Medical Decision Making Basic labs were negative except for d-dimer which was elevated. CTA of the chest was ordered and was negative for embolism. Given the patient's medical history and her most recent events our plan will be admission for further care. ED Disposition - Plan for ED Patient: Disposition: [facility] Diagnosis: Chest pain, H/O coronary artery bypass surgery, Essential (primary) hypertension, Hyperlipidemia, Coronary artery disease Referrals: Teresa Boggs DO [Primary Care Provider] -
--- NOTE | 2019-11-02 23:20 | RAD_ITS ---
STUDY: X-RAY CHEST REASON FOR EXAM: Female, 64 years old. chest pain TECHNIQUE: Portable chest COMPARISON: 01/31/2018 FINDINGS: There is minimal left basilar linear scarring versus subsegmental atelectasis. There is no demonstrated pleural abnormality. There is stable cardiomegaly. Normal mediastinum and marisabel. Normal visualized pulmonary arteries. Normal visualized aortic arch and descending thoracic aorta. Normal visualized thoracic spine. There is old stable fracture of the left humeral head. There is no demonstrated abnormality of the visualized soft tissue structures of the upper abdomen. RAD/Chest 1 View (Portable) IMPRESSION: Prior cardiothoracic surgery, stable mild cardiomegaly Minimal left linear basilar scarring versus subsegmental atelectasis Old stable fracture of the left humeral head Electronically Signed: Dinh Garcia, at 23:44 EDT Tel , Service support ,
[2019-11-02 23:29] LABS: Absolute Neutrophil Count 3.9 X10^3/uL (2.0-7.7); Basophil# 0.04 X10^3/uL; Basophil% 0.5 % (0-1); Eosinophils% 2.7 % (0-5); Hematocrit 37.1 % (37-47); Hemoglobin 12.7 g/dL (12.0-15.0); Lymphocyte % 33.7 % (19-41); Mean Corp Hgb Conc 34.2 g/dL (32-36); Mean Corpuscular Hgb 31.7 pg (27.0-32.0); Mean Corpuscular Volume 92.5 fL (81-99); Mean Platelet Vol. 9.7 fl (6.2-12.0); Monocyte# 0.74 X10^3/uL; NRBC Flagged by Analyzer 0 % (0-5); Neutrophil # 3.91 X10^3/uL (2.7-7.7); Neutrophil % 52.8 % (47-70); Platelet Count 217 K/mm3 (150-450); RBC Distribution Width SD 40.7 fl (35.1-43.9); Red Blood Count 4.01 M/mm3 (4.2-5.4); White Blood Count 7.4 K/mm3 (4.4-11.0)
[2019-11-02 23:41] LABS: Anion Gap 9 (5-15); BUN 19 mg/dL (7-18); BUN/Creat Ratio 18.6 RATIO (10-20); Calcium,Total 9.1 mg/dL (8.5-10.1); Chloride 105 mmol/L (98-107); Creatinine, Serum 1.02 mg/dL (0.55-1.02); EST Glomerular Filtration Rate 58 mL/min (>60); Est Glom Filt Rate - Afr Amer 70 mL/min (>60); Estimated Creatinine Clearance 41.49 ml/min; Glucose 99 mg/dL (74-106); Potassium 3.9 mmol/L (3.5-5.1); Sodium Level 140 mmol/L (136-145)
[2019-11-02 23:43] LABS: D-Dimer Quantitative (DVT/PE) 0.63 FEU/ug/m (0.27-0.49)
[2019-11-03 01:19] VITALS: BP 133/69; PULSE 59; RESP 19; O2SAT 98
[2019-11-03 01:52] VITALS: BP 133/69; PULSE 63; RESP 15; TEMP 36.7; O2SAT 97
--- NOTE | 2019-11-03 03:14 | ECHOD_ITS ---
Reason For Study: chest pain Procedure This was a 2D Doppler, Color Flow transthoracic echocardiogram. Exam performed in department. Left Ventricle Normal LV size. Left ventricular systolic function is normal. The estimated ejection fraction is 60 %. Stage 1 diastolic dysfunction. No regional wall motion abnormalities noted. Right Ventricle Normal size and thickness. Normal systolic function. Atria The left atrium is mildly enlarged. Normal right atrium. Mitral Valve Normal mitral valve. Mild (1+) eccentric mitral valve insufficiency. Tricuspid Valve Normal tricuspid valve. Mild tricuspid valve insufficiency. Aortic Valve Trisinus/trileaflet aortic valve. Pulmonic Valve Normal pulmonic valve. Great Vessels Normal aortic root. The pulmonary artery is normal size. Normal inferior vena cava. Pericardium/Pleural No pericardial effusion. MMode/2D Measurements & Calculations LVIDd: 4.6 cm IVSd: 0.95 cm Ao root diam: 3.1 cm LVIDs: 2.7 cm LVPWd: 0.93 cm RVDd: 3.4 cm FS: 42.0 % LAV(MOD-bp): 58.1 ml LA A4 area: 21.3 cm2 LA dimension(2D): 3.7 cm LAV(MOD-bp) Indexed: 32.5 ml/m2 LAV(MOD-sp2): 48.2 ml LAV(MOD-sp4): 64.5 ml RA A4 area: 20.5 cm2 Doppler Measurements & Calculations MV E max espinoza: 43.1 cm/sec Lat Peak E' Espinoza: 9.8 cm/sec Med Peak E' Espinoza: 5.2 cm/sec MV A max espinoza: 67.0 cm/sec E/E' lat: 4.4 E/E' med: 8.2 MV E/A: 0.64 Ao V2 max: 123.3 cm/sec LV V1 max: 95.1 cm/sec PA V2 max: 59.9 cm/sec Ao max P.1 mmHg LV V1 max P.6 mmHg TR max espinoza: 223.5 cm/sec TR max P.0 mmHg Interpretation Summary Normal LV size. Left ventricular systolic function is normal. The estimated ejection fraction is 60 %. Stage 1 diastolic dysfunction. Mild (1+) eccentric mitral valve insufficiency. Ordering Physician: Kiersten^Braeden^^Dr.^DO Referring Physician: Teresa Boggs Performed By: Yari Chaudhari, MAMIECS, RVT
[2019-11-03 03:17] VITALS: BMI 30.7
[2019-11-03 03:21] VITALS: PULSE 58
--- NOTE | 2019-11-03 03:33 | EKG12_ITS ---
Test Reason : CP ADMIT Blood Pressure : / mmHG Vent. Rate : 061 BPM Atrial Rate : 061 BPM P-R Int : 140 ms QRS Dur : 088 ms QT Int : 462 ms P-R-T Axes : 059 036 048 degrees QTc Int : 465 ms Normal sinus rhythm Normal ECG When compared with ECG of 09-AUG-2017 04:49, No significant change was found Confirmed by JANNET METCALF, ELISHA ([id number]), non linear editor DONNA TROTTER ([id number]) on 11/06/2019 3:38:41 PM Referred By: Braeden Burch Confirmed By:ELISHA POWER MD
--- NOTE | 2019-11-03 03:49 | HP.PCM_ITS ---
Problem List (1) Chest pain Status: Acute Qualifiers: Chest pain type: precordial pain Qualified Code(s): R07.2 - Precordial pain History of Present Illness Date of Admission: 11/03/19 Chief Complaint: Chest pain The patient is a 64 year old F who was seen in the emergency room at [facility] with chief complaint of chest pain which began at 945 on 11/02/2019, she states the pain was substernal in nature and she described it as a pressure, it radiated into her left jaw and patient complained of some dizziness. Patient also states that over the past 2 weeks she has been very f atigued. Patient has a history of coronary artery disease with bypass in the past. Work-up in the emergency room included labs which revealed an elevated d-dimer at 0.63, BUN was elevated at 19, troponin was unremarkable. Patient had a CTA of her chest which did not reveal any evidence of pulmonary emboli. EKG showed normal sinus rhythm without evidence of ischemic changes. Patient will be placed in observation status on PCU, enzymes will be repeated at 7:00, if these remain normal she will undergo a resting nuclear stress test to rule out coronary artery disease. Patient will also have an echocardiogram performed. Past Medical History Past Medical History (Chronic Problems): Chronic Problems (Last Updated 02/02/19 @ 10:40 by Faviola Dutta) Essential (primary) hypertension (Chronic) Non-rheumatic tricuspid valve insufficiency (Chronic) Atherosclerosis of coronary artery of [place] heart with angina pectoris (Chronic) PIP-MHL-Hstyci RCA w/ 2.25 x 24 mm Synergy JATIN-Distal RCA-Prox/Ostium PDA w/ 2.25 x 16 mm Synergy 10/22/2015 HOJ-TRM-Hgbn RCA w/ 3.0 x 12 mm Promus Element 03/30/2013 CABG x 2 VARGAS-LAD, SVG-OM2 10/21/2007 H/O right coronary artery stent placement (Chronic 10/22/15) PKR-CHW-Xlnpca RCA w/ 2.25 x 24 mm Synergy JATIN-Distal RCA-Prox/Ostium PDA w/ 2.25 x 16 mm Synergy 10/22/2015 ESB-EHB-Anbh RCA w/ 3.0 x 12 mm Promus Element 03/30/2013 H/O coronary artery bypass surgery (Chronic 10/21/07) CABG x 2 VARGAS-LAD, SVG-OM2 10/21/2007 Hyperlipidemia (Chronic) Medical History: Medical History (Last Updated 02/02/19 @ 10:40 by Faviola Dutta) Essential (primary) hypertension (Chronic) I10 Non-rheumatic tricuspid valve insufficiency (Chronic) I36.1 Atherosclerosis of coronary artery of [place] heart with angina pectoris (Chronic) I25.119 SQJ-UKY-Koyvjk RCA w/ 2.25 x 24 mm Synergy JATIN-Distal RCA-Prox/Ostium PDA w/ 2.25 x 16 mm Synergy 10/22/2015 OJD-ZJW-Siax RCA w/ 3.0 x 12 mm Promus Element 03/30/2013 CABG x 2 VARGAS-LAD, SVG-OM2 10/21/2007 Hyperlipidemia (Chronic) E78.5 Basal cell carcinoma of neck C44.41 Bipolar disorder F31.9 CVA (cerebral vascular accident) I63.9 Fibromyalgia M79.7 GERD (gastroesophageal reflux disease) K21.9 Hypothyroidism E03.9 IBS (irritable colon syndrome) K58.9 Osteoarthritis M19.90 Post traumatic stress disorder (PTSD) F43.10 Seizure disorder G40.909 Contusion of left hand, initial encounter S60.222A Subluxation of left thumb S63.102A Allergies adhesive tape Allergy (Verified 11/02/19 22:49) Rash codeine Allergy (Verified 11/02/19 22:49) Itching doxazosin Allergy (Verified 11/02/19 22:49) DROPS HEART RATE furosemide [From Lasix] Allergy (Verified 11/02/19 22:49) Itching latex Allergy (Verified 11/02/19 22:49) Rash lisinopril Allergy (Verified 11/02/19 22:49) Angioedema oxycodone HCl [From Percocet] Allergy (Verified 11/02/19 22:49) Itching tramadol HCl [From Ultram] Allergy (Verified 11/02/19 22:49) Itching isosorbide mononitrate Adverse Reaction (Intermediate, Uncoded 11/02/19 22:49) Dizzy, not feeling well Home Medications: Ambulatory Orders Medication Instructions Recorded Duloxetine Hcl [Cymbalta] 60 mg PO DAILY 02/03/14 Levothyroxine [Synthroid] 50 mcg PO TUTH 02/03/14 Levothyroxine [Synthroid] 75 mcg PO SUMOWEFRSA 02/03/14 Multivitamins,Therapeutic 1 tab PO DAILY 02/03/14 [Multivitamin] busPIRone [Buspar] 10 mg PO TID 02/03/14 [place]-3 Fatty Acids [Fish Oil] 1,500 mg PO DAILY 10/20/15 Nitroglycerin (INPATIENT USE) 0.4 mg SUBLINGUAL Q5M PRN 06/10/16 [Nitrostat] Aspirin [Aspirin, Baby] 81 mg PO DAILY@0800 09/24/16 Magnesium 500 mg PO DAILY 05/27/17 amlodipine 10 mg tablet 10 mg PO DAILY #90 tab 11/29/18 metoprolol tartrate 50 mg tablet 50 mg PO BID #180 tab 11/29/18 pravastatin 80 mg tablet 80 mg PO QHS #90 tab 11/29/18 clopidogrel 75 mg tablet 75 mg PO .QOD #1 tab 02/02/19 Cetirizine HCl [Zyrtec] 10 mg PO DAILY 11/02/19 Cyclobenzaprine HCl 5 mg PO PRN PRN 11/02/19 Surgical History: Surgical History (Last Reviewed 11/29/18 @ 14:22 by Brittany Rodriguez) H/O right coronary artery stent placement (Chronic) Onset Date: 10/22/15 Z95.5 QKZ-NNE-Tsqukf RCA w/ 2.25 x 24 mm Synergy JATIN-Distal RCA-Prox/Ostium PDA w/ 2.25 x 16 mm Synergy 10/22/2015 IJZ-OJC-Wfcc RCA w/ 3.0 x 12 mm Promus Element 03/30/2013 H/O coronary artery bypass surgery (Chronic) Onset Date: 10/21/07 Z95.1 CABG x 2 VARGAS-LAD, SVG-OM2 10/21/2007 History of left heart catheterization Onset Date: 08/09/17 Z98.890 Surgical History: coronary bypass surgery, - - cath with a stent in 2012 Psychiatric History: Depression [employer] History: No pertinent [employer] history Lives: Friends Smoking Status: Former smoker Tobacco Use: Non-smoker Alcohol: None Drugs: None - *Family History Maternal Family History: Family History (Last Reviewed 11/29/18 @ 14:22 by Brittany Rodriguez) Father CAD (coronary artery disease) Hypertension Mother CAD (coronary artery disease) Hypertension Sister Hypertension History Items: Heart Disease Paternal Family History: Family History (Last Reviewed 11/29/18 @ 14:22 by Brittany Rodriguez) Father CAD (coronary artery disease) Hypertension Mother CAD (coronary artery disease) Hypertension Sister Hypertension History Items: Heart Disease Review of Systems Constitutional: Reports: Fatigue. Denies: Anorexia, Chills, Fever, Night Sweats, Malaise, Weakness, Weight Change Eyes: Denies: Cataracts, Conjunctivae Inflammation, Double vision, Drainage HEENT: Denies: Difficulty Swallowing, Dysphasia, Ear Pain, Eye Pain, Hearing Changes, Nasal bleeding, Nasal Congestion, Post Nasal Drip Cardiovascular: Reports: Chest Pain, Chest Pressure. Denies: Claudication, Edema, Heaviness, Orthopnea, Palpitations Respiratory: Denies: Cough, Hemoptysis, Pleuritic Pain, Shortness of Breath, Shortness of breath at rest, Shortness of breath upon exertion Gastrointestinal: Denies: Abdominal Pain, Constipation, Diarrhea, Hematemesis, Hematochezia, Nausea, Melena, Vomiting Genitourinary: Denies: Dysuria, Frequency, Hematuria, Hesitancy, Incontinence, Nocturia, Urgency Musculoskeletal: Denies: Foot Pain, Hand Pain, Joint Pain, Joint stiffness, Joint swelling, Leg Pain Skin: Denies: Dryness, Jaundice, Pruritis, Rash Neurological: Denies: Blurred vision, Double vision, Slurred speech, Difficulty swallowing, Focal weakness, Headaches, Incoordination, Numbness, Tingling Psychiatric: Reports: Depression. Denies: Anxiety, Homicidal Ideations, Suicidal Ideations Endocrine: Denies: Change in Body Habitus, Heat/ Cold Intolerance, Polydipsia, Polyuria Hematologic/ Lymphatic: Denies: Adenopathy, Anemia, Easy Bruising, Easy Bleeding, Petechiae, Purpura VTE Information - Inpt Only VTE Present on Admission: No VTE Mechan Device Prophylaxis: None VTE Pharm Prophylaxis ordered?: No Reason prophylaxis not ordered:: Treatment Not Indicated - Short-term stay in the hospital Patient Problems: Active and Suspected Problems (Last Updated 02/02/19 @ 10:40 by Faviola Dutta) Chest pain (Acute) Coronary artery disease (Acute) - Physical Exam Vitals/I&O's: Vital Signs Temp Pulse Resp BP Pulse Ox 98.1 F 63 15 133/69 H 97 11/03/19 01:52 11/03/19 01:52 11/03/19 01:52 11/03/19 01:52 11/03/19 01:52 Oxygen Delivery Method Room Air Weight: 74.9 kg Body Mass Index (BMI) 30.7 General: Alert, Oriented x3, Cooperative, No apparent distress, Well developed, Well nourished HEENT: Atraumatic, PERRLA, EOMI, Normocephalic Oral: Moist Mucosa Neck: Supple, No JVD, Negative Carotid Bruits, No Nuchal Rigidity, Trachea Midline, Thyroid Normal Size and Texture Lungs: Clear to auscultation, Normal air movement, No rhonchi, No wheeze, No rales Cardiovascular: Regular rate, Regular Rhythm, Normal S1, Normal S2, No murmurs, PMI Normal, No rub noted, No Gallop Abdomen: Bowel Sounds Present, Soft, Non Tender, Non-Distended, No hernias noted Extremities: No clubbing, No cyanosis, No edema, Capillary Refill Less than 3 Seconds Skin: No rashes, No breakdown Musculoskeletal: No Tenderness to Palpation of Joints or Extremities Neurological: Cranial nerves II-XII grossly intact, Neuro grossly intact, Sensory exam intact to light touch and pain, Coordination normal Psych/Mental Status: Normal Affect, Appropriate, Alert and oriented to time, place, person, mood and affect Laboratory Results 11/02/19 23:15: WBC 7.4, RBC 4.01 L, Hgb 12.7, Hct 37.1, MCV 92.5, MCH 31.7, MCHC 34.2, RDW Std Deviation 40.7, RDW Coeff of [place]vin 12.0, Plt Count 217, MPV 9.7, Immature Gran % (Auto) 0.300, Neut % (Auto) 52.8, Lymph % (Auto) 33.7, [place] % (Auto) 10.0, Eos % (Auto) 2.7, Baso % (Auto) 0.5, Absolute Neuts (auto) 3.9, Absolute Lymphs (auto) 2.50, Nucleated RBC % 0 11/02/19 23:15: Sodium 140, Potassium 3.9, Chloride 105, Carbon Dioxide 26.0, Anion Gap 9, BUN 19 H, Creatinine 1.02, Estim Creat Clear Calc 41.49, Est GFR (MDRD) Af Amer 70, Est GFR (MDRD) Non-Af 58 L, BUN/Creatinine Ratio 18.6, Glucose 99, Calcium 9.1, Troponin I < 0.015 11/02/19 23:15: D-Dimer Quant (PE/DVT) 0.63 H* Current Medications Sodium Chloride () 250 mls @ 15 mls/hr IV .[id number] PRN PRN Reason: Saline Flush Sodium Chloride () 250 mls @ 15 mls/hr IV .[id number] PRN PRN Reason: Additional IVPB Infusion Morphine Sulfate () 2 mg IV Q3H PRN PRN PRN Reason: Pain Score 6-10/10 Sodium Chloride () 10 - 40 ml IV UD PRN PRN Reason: SALINE FLUSH Assessment/Plan All Active Problems (Last Updated 02/02/19 @ 10:40 by Faviola Dutta) Chest pain (Acute) Coronary artery disease (Acute) Influenza A (Resolved) #1 chest pain-in a patient with known coronary artery disease-patient will be placed in observation status on PCU, I will repeat her troponin this morning at 7 AM, if this is negative, patient will undergo a pharmacological nuclear stress test to characterize her coronary artery disease. Patient will also have an echocardiogram. #2 essential hypertension #3 coronary artery disease #4 hyperlipidemia #5 generalized depression OBSV E&M: 49920 Initial observation care L3
[2019-11-03 04:08] VITALS: BP 148/77; PULSE 66; RESP 20; TEMP 36.6; O2SAT 94
[2019-11-03 04:10] VITALS: BP 128/87
[2019-11-03 10:00] VITALS: BP 139/69; PULSE 79; RESP 16; TEMP 36.9; O2SAT 98
[2019-11-03] MEDS: Morphine 2 MG/ML Syringe IV (12:11)
--- NOTE | 2019-11-03 13:18 | DCINST_ITS ---
- Discharge Diagnoses Current Active Problems: Current Active and Chronic Problems (Last Updated 02/02/19 @ 10:40 by Faviola Dutta) Chest pain (Acute) Coronary artery disease (Acute) Essential (primary) hypertension (Chronic) H/O coronary artery bypass surgery (Chronic 10/21/07) CABG x 2 VARGAS-LAD, SVG-OM2 10/21/2007 Hyperlipidemia (Chronic) Reason(s) for Visit for Discharge Instructions: Chest pain You will use the following diet at home:: Cardiac Your liquids should be the consistency of: Regular/Thin Discharge Activity: Return to Normal Activity Additional Instructions: Continue to take all your medications as prescribed. Continue on a low fat-low salt diet. Weigh yourself everyday. Follow-up with your primary care doctor and physical director within 2 weeks. Allergies/Adverse Reactions: Allergies adhesive tape Allergy (Verified 11/02/19 22:49) Rash codeine Allergy (Verified 11/02/19 22:49) Itching doxazosin Allergy (Verified 11/02/19 22:49) DROPS HEART RATE furosemide [From Lasix] Allergy (Verified 11/02/19 22:49) Itching latex Allergy (Verified 11/02/19 22:49) Rash lisinopril Allergy (Verified 11/02/19 22:49) Angioedema oxycodone HCl [From Percocet] Allergy (Verified 11/02/19 22:49) Itching tramadol HCl [From Ultram] Allergy (Verified 11/02/19 22:49) Itching isosorbide mononitrate Adverse Reaction (Intermediate, Uncoded 11/02/19 22:49) Dizzy, not feeling well Medications to take at Discharge Duloxetine Hcl [Cymbalta] 60 mg PO DAILY 02/03/14 Levothyroxine [Synthroid] 50 mcg PO TUTH 02/03/14 Levothyroxine [Synthroid] 75 mcg PO SUMOWEFRSA 02/03/14 Multivitamins,Therapeutic [Multivitamin] 1 tab PO DAILY 02/03/14 busPIRone [Buspar] 10 mg PO TID 02/03/14 [place]-3 Fatty Acids [Fish Oil] 1,500 mg PO DAILY 10/20/15 Nitroglycerin (INPATIENT USE) [Nitrostat] 0.4 mg SUBLINGUAL Q5M PRN 12/14/16 Aspirin [Aspirin, Baby] 81 mg PO DAILY@0800 09/24/16 Magnesium 500 mg PO DAILY 05/27/17 amlodipine 10 mg tablet 10 mg PO DAILY #90 tab 11/29/18 metoprolol tartrate 50 mg tablet 50 mg PO BID #180 tab 11/29/18 pravastatin 80 mg tablet 80 mg PO QHS #90 tab 11/29/18 Cetirizine HCl [Zyrtec] 10 mg PO DAILY 11/02/19 Cyclobenzaprine HCl 5 mg PO PRN PRN 11/02/19 Clopidogrel Bisulfate [Plavix] 75 mg PO DAILY 11/03/19 Omeprazole [Prilosec] 40 mg PO BID 30 Days #120 cap 11/03/19 Primary Care Physician: Teresa Boggs DO [Primary Care Provider] - Please follow up with your Primary Care Physician in: within 2 weeks Test Results: Test results from this visit will be discussed in further detail at your follow- up appointment, if applicable. Please Follow Up With: Dustin Lemus MD When: within 1-2 weeks Proposed Discharge Date: 11/03/19
--- NOTE | 2019-11-03 13:22 | DS.PCM_ITS ---
Discharge Date and Diagnosis Date of Admission: 11/03/19 Date of Discharge: 11/03/19 - Primary Discharge Diagnosis Active and Suspected Problems (Last Updated 02/02/19 @ 10:40 by Faviola Dutta) Chest pain (Acute) - Secondary Discharge Diagnosis Chronic Problems (Last Updated 02/02/19 @ 10:40 by Faviola Dutta) Essential (primary) hypertension (Chronic) Non-rheumatic tricuspid valve insufficiency (Chronic) Atherosclerosis of coronary artery of [place] heart with angina pectoris (Chronic) LMQ-TMT-Eojrtw RCA w/ 2.25 x 24 mm Synergy JATIN-Distal RCA-Prox/Ostium PDA w/ 2.25 x 16 mm Synergy 10/22/2015 FHS-DTB-Gzgg RCA w/ 3.0 x 12 mm Promus Element 03/30/2013 CABG x 2 VARGAS-LAD, SVG-OM2 10/21/2007 H/O right coronary artery stent placement (Chronic 10/22/15) ZPO-OYC-Lpryrd RCA w/ 2.25 x 24 mm Synergy JATIN-Distal RCA-Prox/Ostium PDA w/ 2.25 x 16 mm Synergy 10/22/2015 PCC-ZDI-Gmtr RCA w/ 3.0 x 12 mm Promus Element 03/30/2013 H/O coronary artery bypass surgery (Chronic 10/21/07) CABG x 2 VARGAS-LAD, SVG-OM2 10/21/2007 Hyperlipidemia (Chronic) Hospital Course and Treatment Imaging Results: 11/03/19 05:55 Nuclear Stress Test - Chemical [NM] AM (NON MEDS) 11/03/19 23:45 CTA Chest W/WO Contrast [CT] Stat Clinical Impression(s) from Imaging Studies Chest X-Ray 11/02/19 23:20 IMPRESSION: Prior cardiothoracic surgery, stable mild cardiomegaly Minimal left linear basilar scarring versus subsegmental atelectasis Old stable fracture of the left humeral head Electronically Signed: Dinh Garcia, at 23:44 EDT Tel , Service support , Chest CTA 11/03/19 23:45 IMPRESSION: No demonstrated pulmonary embolism or arterial dissection. Electronically Signed: Domingo La, at 1:18 EDT Tel , Service support , None Operations: None Procedures: 2-D Echocardiogram, Stress test Summary of Care Provided: The patient is a 64 year old F with past medical history of fibromyalgia, CAD status post CABG, GERD, anxiety disorder who comes in with chest discomfort. Patient's work-up in the ED showed normal sinus rhythm with no evidence of ischemia. CTA of the chest was negative for acute PE. Patient's troponins were negative. She underwent stress test that was negative. Patient on further questioning denied any orthopnea or PND but admitted to fatigue and progressive shortness of breath. 2D echo shows EF of 60%, diastolic dysfunction. No clinical evidence of acute heart failure. 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 Also prescribed Prilosec 40 mg twice daily. Subjective: On the day of discharge, patient was seen and examined. Denied any new complaints. Denied any orthopnea or PND. Complains of fatigue and shortness of breath with exertion. - Physical Exam Vitals/I&O's: Vital Signs Temp Pulse Resp BP Pulse Ox 98.4 F 79 16 139/69 H 98 11/03/19 10:00 11/03/19 10:00 11/03/19 10:00 11/03/19 10:11/03/19 10:00 Oxygen Delivery Method Room Air Weight: 74.9 kg Body Mass Index (BMI) 30.7 Intake and Output for Last 24 Hours 11/01/19 11/02/19 11/03/19 23:59 23:59 23:59 Intake Total 360 / 360 Balance 360 / 360 General: Alert, Oriented x3, Cooperative, No apparent distress HEENT: Atraumatic, PERRLA, EOMI, Normocephalic Oral: Moist Mucosa Neck: Supple Lungs: Clear to auscultation, Normal air movement Cardiovascular: Regular rate, Regular Rhythm, Normal S1, Normal S2, No murmurs Abdomen: Bowel Sounds Present, Soft, Non Tender Extremities: No edema Skin: No rashes, No breakdown Musculoskeletal: No Tenderness to Palpation of Joints or Extremities Lymphatic: No Cervical, Supraclavicular, or Inguinal Adenopathy Neurological: Cranial nerves II-XII grossly intact, Neuro grossly intact Psych/Mental Status: Normal Affect, Appropriate Laboratory Results 11/02/19 23:15: WBC 7.4, RBC 4.01 L, Hgb 12.7, Hct 37.1, MCV 92.5, MCH 31.7, MCHC 34.2, RDW Std Deviation 40.7, RDW Coeff of [place]vin 12.0, Plt Count 217, MPV 9.7, Immature Gran % (Auto) 0.300, Neut % (Auto) 52.8, Lymph % (Auto) 33.7, [place] % (Auto) 10.0, Eos % (Auto) 2.7, Baso % (Auto) 0.5, Absolute Neuts (auto) 3.9, Absolute Lymphs (auto) 2.50, Nucleated RBC % 0 11/02/19 23:15: Sodium 140, Potassium 3.9, Chloride 105, Carbon Dioxide 26.0, Anion Gap 9, BUN 19 H, Creatinine 1.02, Estim Creat Clear Calc 41.49, Est GFR (MDRD) Af Amer 70, Est GFR (MDRD) Non-Af 58 L, BUN/Creatinine Ratio 18.6, Glucose 99, Calcium 9.1, Troponin I < 0.015 11/02/19 23:15: D-Dimer Quant (PE/DVT) 0.63 H* 11/03/19 06:55: Troponin I < 0.015 Current Medications Sodium Chloride () 250 mls @ 15 mls/hr IV .[id number] PRN PRN Reason: Saline Flush Sodium Chloride () 250 mls @ 15 mls/hr IV .[id number] PRN PRN Reason: Additional IVPB Infusion Morphine Sulfate () 2 mg IV Q3H PRN PRN PRN Reason: Pain Score 6-10/10 Last Admin: 11/03/19 12:11 Dose: 2 mg Documented by: Sodium Chloride () 10 - 40 ml IV UD PRN PRN Reason: SALINE FLUSH Discharge Diet: Low fat/ Low Cholesterol, 2000 mg Sodium Diet Discharge Activity: Return to Normal Activity Home Medications: Medications to take at Discharge Duloxetine Hcl [Cymbalta] 60 mg PO DAILY 02/03/14 Levothyroxine [Synthroid] 50 mcg PO TUTH 02/03/14 Levothyroxine [Synthroid] 75 mcg PO SUMOWEFRSA 02/03/14 Multivitamins,Therapeutic [Multivitamin] 1 tab PO DAILY 02/03/14 busPIRone [Buspar] 10 mg PO TID 02/03/14 [place]-3 Fatty Acids [Fish Oil] 1,500 mg PO DAILY 10/20/15 Nitroglycerin (INPATIENT USE) [Nitrostat] 0.4 mg SUBLINGUAL Q5M PRN 06/10/16 Aspirin [Aspirin, Baby] 81 mg PO DAILY@0800 09/24/16 Magnesium 500 mg PO DAILY 05/27/17 amlodipine 10 mg tablet 10 mg PO DAILY #90 tab 11/29/18 metoprolol tartrate 50 mg tablet 50 mg PO BID #180 tab 11/29/18 pravastatin 80 mg tablet 80 mg PO QHS #90 tab 11/29/18 Cetirizine HCl [Zyrtec] 10 mg PO DAILY 11/02/19 Cyclobenzaprine HCl 5 mg PO PRN PRN 11/02/19 Clopidogrel Bisulfate [Plavix] 75 mg PO DAILY 11/03/19 Omeprazole [Prilosec] 40 mg PO BID 30 Days #120 cap 11/03/19 Following Prescrptions Were Given to Patient: Omeprazole [Prilosec] 40 mg PO BID 30 Days #120 cap Transmission Status: Received by [id number] Primary Care Physician: Teresa Boggs DO [Primary Care Provider] - Please follow up with your Primary Care Physician in: within 2 weeks Please Follow Up With: Dustin Lemus MD When: within 1-2 weeks Disposition: Home Minutes spent on discharge:: 35 Patient Condition:: Stable Medical Necessity - Tobacco Use Smoking Status: Former smoker Tobacco Use: Non-smoker Meaningful Use Info Meaningful Use Diagnoses (Choose all that apply): None applicable OBSV E&M: 59977 Observation care discharge
--- NOTE | 2019-11-03 16:06 | STRESSREP ---
Stress Test Report Pharmacologic myocardial perfusion stress test. 64-year-old lady with a history of known coronary artery disease who presents with chest pain. Stress protocol: Resting EKG demonstrates normal sinus rhythm with a rate of 64 bpm normal intervals are noted resting blood pressure is 138/62 mmHg. 0.4 mg of regadenoson was infused per usual protocol followed by up intravenous saline flush injection continuous EKG monitoring was performed. The maximum heart rate attained was 96 bpm which was 61% of maximal predicted heart rate the maximum workload was 1 metabolic equivalent. At rest nonspecific ST-T wave changes were noted with no meet the criteria for ischemia. At peak infusion nonspecific ST-T wave changes were noted. Myocardial perfusion protocol. 11.0 mCi of technetium 99m sestamibi was injected at rest. 0.4 mg of regadenoson was infused per usual protocol peak infusion 33.0 mCi of technetium 99m sestamibi was injected stress images were obtained stress and rest images were reconstructed and compared in the short axis vertical long horizontal long axis. Gated images were also obtained. Perfusion SPECT analysis: Review of the stress images demonstrate normal uptake of tracer noted in all areas of the myocardium. The resting images similarly demonstrate normal uptake of tracer noted in all areas of the myocardium. No reversibility is noted to suggest ischemia no previous infarct is noted. Gated SPECT analysis: The gated ejection fraction is noted to be 60%. Conclusion: Normal pharmacologic myocardial perfusion stress test. Preserved ejection fraction
--- NOTE | 2019-11-03 23:45 | CT_ITS ---
STUDY: CTA CHEST REASON FOR EXAM: Female, 64 years old. CHEST PAIN,FATIGUE -- HX:KS WITH STENTS X 3 RADIATION DOSAGE (If Supplied By Facility): CTDIvol = ( 12.33 ) mGy, DLP = ( 449.82 ) mGycm TECHNIQUE: The examination was performed with the intravenous administration of IV 100mL Isovue-370. Post-processing of the angiographic images was performed, with multiplanar reformation and 3D reconstruction. Individualized dose optimization techniques were used for this CT. COMPARISON: None. FINDINGS: Normal enhancement of the main pulmonary artery and right and left pulmonary arteries. Normal enhancement of the bilateral peripheral pulmonary arteries. There is no demonstrated pulmonary embolism. There is atherosclerotic calcification of the aortic arch with tortuosity. There is no demonstrated aortic dissection. Normal heart and pericardium. Normal mediastinum. Normal hilar regions. Normal visualized trachea and bronchi. The lungs are well expanded. Normal pulmonary parenchyma. Normal pleura. Normal chest wall structures. Normal osseous structures. Right renal cysts, the largest measures 2.6 cm in the upper pole of the right kidney. CT/CTA Chest W/WO Contrast IMPRESSION: No demonstrated pulmonary embolism or arterial dissection. Electronically Signed: Domingo La, at 1:18 EDT Tel , Service support ,
== END 2019-11-03 13:16 | disposition home or self-care (01) ==
LOC: ED 11-03 01:49 → PCU 11-03 04:40
PROVIDERS: Admitting Provider Internal Medicine; Emergency Provider Emergency Medicine; PCP Family Medicine; Referring Provider Internal Medicine; Visit Provider Internal Medicine
DX: R07.89 Other chest pain (principal); R53.83 Other fatigue; I08.1 Rheumatic disorders of both mitral and tricuspid valves; I10 Essential (primary) hypertension; I25.10 Atherosclerotic heart disease of native coronary artery without angina pectoris; E78.5 Hyperlipidemia, unspecified; M79.7 Fibromyalgia; K21.9 Gastro-esophageal reflux disease without esophagitis; F41.9 Anxiety disorder, unspecified; R06.02 Shortness of breath; F31.9 Bipolar disorder, unspecified; E03.9 Hypothyroidism, unspecified; K58.9 Irritable bowel syndrome, unspecified; M19.90 Unspecified osteoarthritis, unspecified site; F43.10 Post-traumatic stress disorder, unspecified; G40.909 Epilepsy, unspecified, not intractable, without status epilepticus; Z95.1 Presence of aortocoronary bypass graft; Z79.899 Other long term (current) drug therapy; Z79.82 Long term (current) use of aspirin; Z79.02 Long term (current) use of antithrombotics/antiplatelets; Z87.891 Personal history of nicotine dependence
CPT/HCPCS: 36415; 71045; 71275; 78452; 80048; 84484; 85025; 85379; 93005; 93017; 93306; 96374; 97802; 99218; 99285; A9500; J7030; Q9967; A4216; G0378; J2785

== ENCOUNTER → 2019-11-13 11:29 | Outpatient (CLI) | payer MEDICARE, SELFPAY ==
[2019-11-13 09:41] VITALS: BMI 31.5
--- NOTE | 2019-11-13 11:33 | VDUE_ITS ---
Reason For Study: Left arm pain Left Proximal Left jugular vein is spontaneous, widely patent, phasic, with no intraluminal echogenicity noted. Left subclavian vein is spontaneous, widely patent, phasic, with no intraluminal echogenicity noted. Left Arm Left axillary vein is spontaneous, patent, phasic, competent, compressible and demonstrates augmentation. Left brachial vein is compressible. Left cephalic vein is compressible. Left basilic vein is compressible. Left Lower Arm Left radial vein is compressible. Left ulnar vein is compressible. Patient Safety Prelim to [place]. Interpretation Summary Deep veins of the left upper extremity are patent and compressible segmentally. There is no evidence of deep vein thrombosis. The superficial veins of the left upper extremity, the basilic and cephalic veins, are patent and compressible. There is no evidence of left upper extremity superficial thrombophlebitis involving the veins imaged. Ordering Physician: Teresa Boggs Referring Physician: Teresa Boggs Performed By: Fatoumata Khoury RVT ?
--- NOTE | 2019-11-13 11:33 | VDLE_ITS ---
Reason For Study: Left calf pain RIGHT LEFT CFV is compressible, spontaneous, phasic, GSV is normal. competent and demonstrates normal CFV is compressible, spontaneous, phasic, augmentation. competent, and demonstrates normal Procedure augmentation. Exam performed in department. FV is compressible, spontaneous, phasic, A preliminary report was called and/or faxed competent and demonstrates normal to [place]. augmentation. POP V is compressible, spontaneous, phasic, competent and demonstrates normal augmentation. T/P Trunk is compressible. PTV is compressible. LT PerV is compressible. Interpretation Summary Deep veins of the left lower extremity are patent and compressible segmentally. There is no evidence of left lower extremity deep vein thrombosis. Valvular competence appears intact within the proximal deep venous system on the left . The left great saphenous vein appears patent and compressible segmentally. Ordering Physician: Teresa Boggs Referring Physician: Teresa Boggs Performed By: Fatoumata Khoury RVT
== END ==
PROVIDERS: PCP Family Medicine; Referring Provider Family Medicine; Visit Provider Family Medicine
DX: M79.602 Pain in left arm (principal); M79.605 Pain in left leg
CPT/HCPCS: 93971

== ENCOUNTER → 2019-11-22 10:26 | Outpatient (CLI) | payer MEDICARE, SELFPAY ==
[2019-11-13 09:41] VITALS: BMI 31.5
--- NOTE | 2019-11-22 10:43 | ART_ITS ---
Reason For Study: Claudication Procedure A bilateral lower extremity continuous wave Doppler with analog waveform analysis,segmental pressures,and ankle brachial indexes without exercise. Left Segmental Pressures Left brachial= 142mmHg. Left posterior tibial artery = 150mmHg. Left dorsalis pedis artery = 145mmHg. Left digit = 116 mmHg. The left dorsalis pedis waveforms are triphasic. The left posterior tibial artery waveforms are triphasic. Right Segmental Pressures Right brachial= 140mmHg. Right posterior tibial artery = 154mmHg. Right dorsalis pedis artery = 139mmHg. Right digit = 112 mmHg. The right dorsalis pedis waveforms are triphasic. The right posterior tibial artery waveforms are triphasic. Indices The right ankle brachial index by the dorsalis pedis is 0.98. The right ankle brachial index by the posterior tibial artery is 1.08. The right digital-brachial index is 0.79. The left ankle brachial index by the dorsalis pedis is 1.02. The left ankle brachial index by the posterior tibial artery is 1.06. The left digital-brachial index is 0.82. Interpretation Summary Triphasic Doppler waveforms are noted at ankle level bilaterally. Pulse-volume recordings appear satisfactory at all levels bilaterally, including low-thigh, calf, ankle, and digital levels. Resting ankle-brachial indices are normal bilaterally. Digital-brachial indices are normal bilaterally. There is no evidence of arterial occlusive disease in the lower extremities bilaterally. Ordering Physician: Teresa Boggs Referring Physician: Teresa Boggs Performed By: Fatoumata Khoury RVT
[2019-11-22 11:32] LABS: BNP,B-Type NATRIURETIC PEPTIDE 207.8 pg/mL (0-100)
== END ==
PROVIDERS: Physician Assistant Medical; PCP Family Medicine; Referring Provider Family Medicine; Visit Provider Family Medicine
DX: I70.213 Atherosclerosis of native arteries of extremities with intermittent claudication, bilateral legs (principal); R06.00 Dyspnea, unspecified
CPT/HCPCS: 36415; 83880; 93923

== ENCOUNTER → 2019-12-05 08:51 | Outpatient (CLI) | payer MEDICARE, SELFPAY ==
[2019-11-28 09:13] VITALS: BMI 31.5
--- NOTE | 2019-12-05 08:52 | CDU_ITS ---
Reason For Study: TIA Rt. Velocities/BP Lt. Velocities/BP Prox CCA 68.2/14.7 cm/sec. Prox CCA 124.7/20.6 cm/sec. Mid CCA 61.7/16.0 cm/sec. Mid CCA 119.3/24.3 cm/sec. Dist CCA 48.6/12.1 cm/sec. Dist CCA 77.7/17.6 cm/sec. Prox ICA 57.5/15.7 cm/sec. Prox ICA 69.1/17.6 cm/sec. Mid ICA 73.9/20.1 cm/sec. Mid ICA 70.4/18.8 cm/sec. Dist ICA 82.7/21.2 cm/sec. Dist ICA 88.8/24.9 cm/sec. Rt. ICA/CCA = 1.3. Lt. ICA/CCA = .7. Prox ECA 127.8/5.8 cm/sec. Prox ECA 145.511.6 cm/sec. Rt. Vert. 21.1 cm/sec. Lt. Vert. 36.0/17.6 cm/sec. Right Extracranial There is heterogeneous, smooth atherosclerotic plaque noted in the right common carotid artery. There is heterogeneous, irregular atherosclerotic plaque noted in the right internal carotid artery. There is heterogeneous, irregular atherosclerotic plaque noted in the right external carotid artery. Antegrade flow is noted in the right vertebral artery. Left Extracranial There is heterogeneous, irregular atherosclerotic plaque noted in the left common carotid artery. There is heterogeneous, irregular atherosclerotic plaque noted in the left internal carotid artery. There is heterogeneous, irregular atherosclerotic plaque noted in the left external carotid artery. Antegrade flow is noted in the left vertebral artery. Procedure Carotid Duplex [id number]. The exam was diagnostic. Exam performed in department. Interpretation Summary Minimal calcific plaque at the proximal right internal and external carotid arteries <50% stenosis right internal carotid Irregular calcific plaque with shadowing left proximal common carotid with lesser amounts seen at the proximal left internal and external carotid arteries <50% stenosis left internal carotid <50% stenosis left external carotid Patent, antegrade vertebrals bilaterally Ordering Physician: Dustin Lemus Performed By: Sajan Lewis RVT
== END ==
PROVIDERS: PCP Family Medicine; Referring Provider Internal Medicine Cardiovascular Disease; Visit Provider Internal Medicine Cardiovascular Disease
DX: R47.81 Slurred speech (principal)
CPT/HCPCS: 93880

== ENCOUNTER → 2020-03-18 14:43 | Outpatient (CLI) | payer MEDICARE, SELFPAY ==
[2019-11-28 09:13] VITALS: BMI 31.5
[2020-03-18 17:36] LABS: Absolute Lymphocyte Count 2.43 X10^3/uL (0.83-4.51); Absolute Neutrophil Count 5.4 X10^3/uL (2.0-7.7); Basophil# 0.04 X10^3/uL; Basophil% 0.5 % (0-1); Eosinophil# 0.24 X10^3/uL; Eosinophils% 2.8 % (0-5); Hematocrit 42.2 % (37-47); Hemoglobin 14.1 g/dL (12.0-15.0); Lymphocyte # 2.43 X10^3/ul (4.0); Mean Corp Hgb Conc 33.4 g/dL (32-36); Mean Corpuscular Hgb 31.5 pg (27.0-32.0); Mean Corpuscular Volume 94.2 fL (81-99); Mean Platelet Vol. 10.3 fl (6.2-12.0); Monocyte# 0.59 X10^3/uL; Monocyte% 6.8 % (0-10); NRBC Flagged by Analyzer 0 % (0-5); Neutrophil # 5.35 X10^3/uL (2.7-7.7); Neutrophil % 61.7 % (47-70); Platelet Count 276 K/mm3 (150-450); RBC Distribution Width CV 12.2 % (11.6-14.6); RBC Distribution Width SD 42.3 fl (35.1-43.9); Red Blood Count 4.48 M/mm3 (4.2-5.4); White Blood Count 8.7 K/mm3 (4.4-11.0)
[2020-03-18 18:10] LABS: ALB/GLOB Ratio 1.2 RATIO (0.9-2.4); AST(SGOT) 30 U/L (15-37); Alanine Aminotransfer ALT/SGPT 26 U/L (13-56); Albumin, Serum 4.4 g/dL (3.2-5.0); Alkaline Phosphatase 68 U/L (45-117); Anion Gap 7 (5-15); BUN 24 mg/dL (7-18); BUN/Creat Ratio 18.6 RATIO (10-20); Calcium,Total 9.4 mg/dL (8.5-10.1); Chloride 104 mmol/L (98-107); Creatinine, Serum 1.29 mg/dL (0.55-1.02); EST Glomerular Filtration Rate 44 mL/min (>60); Est Glom Filt Rate - Afr Amer 53 mL/min (>60); Globulin 3.7 g/dL (2.2-4.2); Glucose 100 mg/dL (74-106); Potassium 4.4 mmol/L (3.5-5.1); Protein, Total 8.1 g/dL (6.4-8.2); Sodium Level 133 mmol/L (136-145); Thyroid Stim Hormone (TSH) 0.07 uIU/mL (0.358-3.74)
== END ==
PROVIDERS: PCP Family Medicine; Visit Provider Family Medicine
DX: E03.9 Hypothyroidism, unspecified (principal); Z51.81 Encounter for therapeutic drug level monitoring
CPT/HCPCS: 36415; 80053; 84439; 84443; 84481; 85025

== ENCOUNTER 2020-03-25 07:04 | Day surgery (SDC) | payer MEDICARE, SELFPAY ==
[2019-11-28 09:13] VITALS: BMI 31.5
[2020-03-22 09:20] VITALS: BMI 30.8
[2020-03-25] VITALS (17 sets, daily range): BP systolic 107–145; BP diastolic 62–99; PULSE 54–67; RESP 16–18; TEMP 36.3–36.6; O2SAT 96–100; BMI 30.5
--- NOTE | 2020-03-25 08:00 | HP.PCM_ITS ---
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 She is a lady with a history of coronary artery disease status post cardiac catheterization in 2015 demonstrating a normal left main coronary artery, left anterior descending yang ry which was previously bypassed, circumflex artery with an 80% stenotic lesion and a 95% bifurcating RCA lesion. The circumflex artery had a saphenous vein graft which was patent and the left internal mammary artery was atretic. 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 She was admitted to the hospital in October 2019 with shortness of breath and underwent an echocardiogram which demonstrated preserved ejection fraction of 60%, stage I diastolic dysfunction, and no wall motion abnormalities noted. A pharmacologic myocardial perfusion stress test did not demonstrate any evidence of ischemia. She was placed on Aldactone and isosorbide and she says that she is felt much better. She continued to complain of chest pain. Her Isosorbide was increased. Her pain initailly was improved, but then worsened. Thus, a [facility] was recommended to evaluate further. She continues with chest pain. She denies SOB on exertion, orthopnea, or PND. She denies lightheadedness, dizziness, presyncope, or syncope. She denies lower extremity edema. Intake Vital Signs: See EMR Intake Visit Reasons: LHC Allergies adhesive tape Allergy (Verified 11/28/19 09:00) Rash codeine Allergy (Verified 11/28/19 09:00) Itching doxazosin Allergy (Verified 11/28/19 09:00) DROPS HEART RATE furosemide [From Lasix] Allergy (Verified 11/28/19 09:00) Itching latex Allergy (Verified 11/28/19 09:00) Rash lisinopril Allergy (Verified 11/28/19 09:00) Angioedema oxycodone HCl [From Percocet] Allergy (Verified 11/28/19 09:00) Itching tramadol HCl [From Ultram] Allergy (Verified 11/28/19 09:00) Itching isosorbide mononitrate Adverse Reaction (Intermediate, Uncoded 11/28/19 09:00) Dizzy, not feeling well Medications See EMR Ejection fraction %: 60 to 64 [facility] [place] Medical History Atherosclerosis of coronary artery of [place] heart with angina pectoris (Chronic) Chronic diastolic (congestive) heart failure (Chronic) Essential (primary) hypertension (Chronic) Hyperlipidemia (Chronic) TIA (transient ischemic attack) (Chronic) Basal cell carcinoma of neck (Chronic) Bipolar disorder (Chronic) CVA (cerebral vascular accident) (Chronic) Fibromyalgia (Chronic) GERD (gastroesophageal reflux disease) (Chronic) Hypothyroidism (Chronic) IBS (irritable colon syndrome) (Chronic) Osteoarthritis (Chronic) Post traumatic stress disorder (PTSD) (Chronic) Seizure disorder (Chronic) Contusion of left hand, initial encounter (Resolved) Subluxation of left thumb (Resolved) Non-rheumatic tricuspid valve insufficiency (Ruled-out) Surgical History H/O coronary artery bypass surgery (Chronic 10/21/07) H/O right coronary artery stent placement (Chronic 10/22/15) History of left heart catheterization (Resolved 08/09/17) Family History Father CAD (coronary artery disease) Hypertension Mother CAD (coronary artery disease) Hypertension Sister Hypertension Social History (Updated 11/28/19 @ 09:[address] Dustin Lemus MD) Smoking Status: Former smoker alcohol intake: former details: Participates in AA ROS Const Const: Positive for headache(s); negative for fatigue, weakness, frequent falls, difficulty sleeping or excessive sweating Eyes Eyes: Positive for blurry vision; negative for loss of peripheral vision, transient loss of vision, double vision or tunnel vision ENT ENT: Positive for headache(s); negative for dizziness, Nosebleed/epistaxis or balance problems Cardio Chest Pain: Yes Palpitations: No Edema: None Muscle aches with walking: Bilateral (improved with med change) Additional Details: Becomes flushed around 6 pm notes her BP 162/80 Resp Respiratory: Positive for other (dyspnea better with aldactone and imdur); negative for SOB with activity, SOB at rest, SOB orthopnea\SOB lying down, Cough or paroxysmal nocturnal dyspnea GI GI: Negative nausea, vomiting, heartburn or black,tarry stools : Negative for hematuria Musc Musc: Negative for muscle aches/ myalgia, muscle weakness, joint pain or balance problems Skin Skin: Negative non-healing lesions, rash or unusual bruising Neuro Neuro: Positive for headache(s), blurry vision and other (Episodes of blurred vision, slurred speech, shooting pain left side head); negative for dizziness, lightheadedness, near syncope, syncope, orthostatic symptoms, frequent falls, weakness, double vision or lack of coordination Hang Hematologic/Lymphatic: Negative for easy bleeding or easy bruising Endo Endo: Negative for fatigue, excessive sweating or increased thirst/drinking Psych Psych: Negative for anxiety or depression Allergy Allergy/Immunology: Negative for hives, Negative for rash Cardiology Exam Const Physical exam was not completed because this was a phone visit. Assessment & Plan 1. H/O coronary artery bypass surgery Z95.1 CABG x 2 VARGAS-LAD, SVG-OM2 10/21/2007 Plan She is status post coronary artery bypass surgery. She continues with chest pain despite increase in Isosorbide therapy. She will proceed with [facility] to evaluate further. Based on results, further recommendation will be made. 2. Essential (primary) hypertension I10 Plan Her blood pressure appears to be under fair control. I would not recommend that we make any changes she will remain on the metoprolol as well as the amlodipine. 3. Chronic diastolic (congestive) heart failure I50.32 Plan She does have evidence of diastolic heart failure. She appears to be tolerating the Aldactone as well as the isosorbide quite well and no changes will be made at this time. 4. Hyperlipidemia, unspecified hyperlipidemia type E78.5 Plan She does have a history of hyperlipidemia and will continue with secondary risk factor modification. She will continue the pravastatin at the same dose. 5. Blurred vision, bilateral H53.8 Plan Her Carotid Duplex US from November 2019 showed no significant carotid artery dise ase. She will continue to follow with PCP regarding vision changes. Thank you for allowing us to participate in the patients plan of care, if you have any questions please do not hesitate to call. This note was generated using a voice recognition system and there may be incorrect words, spelling or punctuation that were not noted when reviewing the office note prior to saving. Procedure Criteria Procedure Type: Elective COVID Risk Discussion: The surgeon/proceduralist and patient have discussed in detail the risk of exposure to and/or potential harm posed by the COVID-19 virus with having a surgery/procedure at this time versus the risk of delaying the surgery/procedure. It is not possible to know either the risk of delaying the surgery or procedure or chance of getting an infection with perfect accuracy, but a joint decision was made between the patient and the surgeon/proceduralist to proceed at this time with the scheduled surgery/procedure as indicated on the consent form.
--- NOTE | 2020-03-25 10:19 | CL.D_ITS ---
Patient Name: NISSA TROTTER Study Date: 03/25/2020 Performing: Dustin Lemus MD Ht: 61.02 inches 155 cm : 1955 Wt: 163.14 lbs 74 kg Age: 64 Gender: female BSA: 1.73 PROCEDURE(S) PERFORMED NR25-BTG/COR/LV/CABG CLINICAL PROFILE AND INDICATIONS Indications: Worsening Angina Heart Failure: None Stress/Imaging Stress/Image Study Performed: No CAD Presentations: Unstable angina. CONCLUSIONS Coronary artery disease with previously bypassed LAD patent with mild luminal irregularities, first d iagonal branch with moderate stenosis, mid left circumflex artery with total occlusion, right coronar y artery previously stented in the proximal and distal segments which is patent with ostial PDA lesio n not significantly different from 2018; atretic VARGAS not reevaluated. The saphenous vein graft to t he obtuse marginal branch has a high-grade distal 90% stenosis noted prior to the anastomosis. RECOMMENDATIONS Referred for immediate PCI DESCRIPTION OF PROCEDURE The patient arrived to the procedure lab. The risks and benefits of the procedure as well as a full d escription of our services here and current unavailability of surgical backup were fully explained to the patient and/or their significant other prior to the catheterization. The Timeout was completed, verifying the correct patient and procedure. The patient's procedural site was prepped and draped in the usual fashion. Local anesthetic was given subcutaneously to right radial region with Lidocaine 2% . Using a modified Seldinger technique, arterial access was obtained via the right radial artery, a 6 Fr sheath was inserted. Right Coronary Artery selective angiography was then performed in multiple v iews using a 5 Fr. 4.0 [place] catheter. Left Coronary Artery selective angiography was performed in mu ltiple views using a 5 Fr. JL3.5 catheter. Saphenous Vein graft to the OM 2 selective angiography was performed in multiple views using a 5 Fr. 4.0 [place] catheter. Left Ventriculography was performed in LOW projection using a 5 Fr. Pigtail catheter. CORONARY ANGIOGRAPHY DOMINANCE: Right Dominant LEFT HEART ASSESSMENT Left Ventricular Ejection Fraction: by LV Gram 60 % Normal LV wall motion Normal Left Ventricular systolic function LEFT MAIN: Mild calcification LEFT ANTERIOR DESCENDING ARTERY: Mild luminal irregularities less than 30% DIAGONAL 1: Proximal - 60 % Stenosis DIAGONAL 2: Proximal - Mild luminal irregularities less than 30% CIRCUMFLEX ARTERY: MID CIRC: is occluded RIGHT CORONARY ARTERY: PROX RCA: Previously placed stent has an instent 30 % restenosis DISTAL RCA: Previously placed stent is patent RT PDA: Ostial - 60 unchanged % Stenosis GRAFTS: VARGAS graft to the Mid LAD atretic Saphenous Vein graft to the 2nd OM has a distal lesion of 90 % COMPLICATIONS PROCEDURE MEDICATIONS Versed 1 mg IV Fentanyl 50 mcg IV Versed 1 mg IV Versed 1 mg IV Oxygen: 2 L/min via nasal cannula Heparin diluted in 23cc Heparinized saline. Patient given 10cc IA of this solution. 03/25/2020 09:15: 04 Heparin 5000 unit(s) IV 03/25/2020 10:07:26 Verapamil 2.5mg, Ntg 100mcgs, 2000 units of Heparin diluted in 23cc Heparinized saline. Patient give n 10cc IA of this solution. 03/25/2020 09:15:04 SUMMARY OF HEMODYNAMIC DATA Time AIR REST ECG 07:27:04 AO 191/102 (136) SA 09:32:48 LV 152/15, 20 09:52:45 LV 141/13, 20 09:52:52 LV 150/17, 22 09:54:36 LVp 149/17, 23 09:54:39 AOp 149/70 (100) 09:54:44 RM AIR REST 10:08:37 AIR REST AO 172/65 (106) 10:08:46 AO 172/65 (106) 10:08:46 Signed By Dustin Lemus MD On 03/25/2020 10:18:36 Dustin Lemus MD
--- NOTE | 2020-03-25 10:45 | EKG12_ITS ---
Test Reason : Blood Pressure : / mmHG Vent. Rate : 054 BPM Atrial Rate : 054 BPM P-R Int : 146 ms QRS Dur : 088 ms QT Int : 448 ms P-R-T Axes : 051 012 018 degrees QTc Int : 424 ms Sinus bradycardia Nonspecific T wave abnormality Abnormal ECG When compared with ECG of 03-NOV-2019 03:50, Nonspecific T wave abnormality now evident in Inferior leads Confirmed by IAIN METCALF, MARTA ([id number]), managing editor TRINY CONN ([id number]) on 04/02/2020 9:20:46 AM Referred By: Dustin Lemus Confirmed By:DONYA TIMMONS MD
--- NOTE | 2020-03-25 10:55 | CL.I_ITS ---
Patient Name: NISSA TROTTER Study Date: 03/25/2020 Performing: Jo Patel MD Ht: 61 inches 155 cm : 1955 Wt: 163.4 lbs 74 kg Age: 64 Gender: female BSA: 1.73 PROCEDURE(S) PERFORMED QT15-VMXVY-CQW AND/OR PTCA, SINGLE GRAFT CLINICAL PROFILE AND CO-MORBIDITIES Indications: Worsening Angina Heart Failure: None Stress/Imaging Stress/Image Study Performed: No CAD Presentations: Unstable angina. CONCLUSIONS Successful PCI with Drug eluting stent and PTCA to the SVG to OM2 RECOMMENDATIONS ASA Indefinitely Plavix for at least 12 months Follow up with Dr. Lemus DESCRIPTION OF PROCEDURE The patient arrived to the procedure lab. The risks and benefits of the procedure as well as a full d escription of our services here and current unavailability of surgical backup were fully explained to the patient and/or their significant other prior to the catheterization. The Timeout was completed, verifying the correct patient and procedure. The patient's procedural site was prepped and draped in the usual fashion. Local anesthetic was given subcutaneously to right radial region with Lidocaine 2% Using a modified Seldinger technique,arterial access was obtained via the right radial artery, a 6Fr sheath was inserted. Right Coronary Artery selective angiography was then performed in multiple view s using a 5 Fr. 4.0 [place] catheter. Left Coronary Artery selective angiography was performed in multi ple views using a 5 Fr. JL3.5 catheter. Saphenous Vein graft to the OM 2 selective angiography was pe rformed in multiple views using a 5 Fr. 4.0 [place] catheter. Left Ventriculography was performed in LOW projection using a 5 Fr. Pigtail catheter.The images were reviewed and options discu ssed. A decision was then made to proceed with an Intervention, IVUS or other adjunct procedure. 6fr Guideliner/ [place] Guide catheter was inserted and engaged into the SVG to the OM 2. Emerge 3. 00x15 Balloon catheter was inserted. PTCA balloon inflated at 10 atms for 14 secs. Angiogram performe d post balloon dilatation. Synergy 3.50x38 Drug Eluting stent was inserted. Angiogram performed post stent deployment. NC Emerge 4.00x15 Balloon catheter was inserted. Angiogram performed post balloon d ilatation. The arterial sheath was pulled and a TR Band was applied for hemostasis w/ 13ml air INTERVENTION INFORMATION LESION SITE: Vein > to 2nd OM Segment Number: 21-Second obtuse marginal branch segment - 2nd OM , [place] Location: Body-distal Lesion Complexity: High/C, chronic total occlusion: No, lesion at bifurcation: No, thrombus present: Yes, lesion length: 37 mm, culprit lesion: Yes, Previously treated lesion: No, In-stent restenosis: N o Pre Stenosis: 95 % Pre intervention BERTRAND flow: 2 PROCEDURE: Drug Eluting Stent with pre and post dilatation Post Stenosis: 0 % Post intervention BERTRAND flow: 3 Lesion Devices: Motion Displays 6 Fr Tig 4.0 100cm Guide Catheter Peters .014 [employer] [place] Straight 190cm Vascular Solutions 6 Swedish GuideLiner Lionel Sci EMERGE MR 3.00x15 BALLOON Lionel Sci Synergy MR JATIN 3.50x38 Lionel Sci NC EMERGE MR 4.00x15 BALLOON COMPLICATIONS No Complications PROCEDURE MEDICATIONS Versed 1 mg IV Fentanyl 50 mcg IV Versed 1 mg IV Versed 1 mg IV Oxygen: 2 L/min via nasal cannula Heparin diluted in 23cc Heparinized saline. Patient given 10cc IA of this solution. 03/25/2020 09:15: 04 Heparin 5000 unit(s) IV 03/25/2020 10:07:26 Verapamil 2.5mg, Ntg 100mcgs, 2000 units of Heparin diluted in 23cc Heparinized saline. Patient give n 10cc IA of this solution. 03/25/2020 09:15:04 SUMMARY OF HEMODYNAMIC DATA Time AIR REST ECG 07:27:04 AO 191/102 (136) SA 09:32:48 LV 152/15, 20 09:52:45 LV 141/13, 20 09:52:52 LV 150/17, 22 09:54:36 LVp 149/17, 23 09:54:39 AOp 149/70 (100) 09:54:44 RM AIR REST 10:08:37 AIR REST AO 149/77 (107) 10:21:10 Signed By Jo Patel MD On 03/25/2020 10:57:07 Jo Patel MD
[2020-03-25] MEDS: 0.9% Normal Saline 1,000 ML 100 ML IV (11:59)
--- NOTE | 2020-03-25 12:32 | CRPHASE1_ITS ---
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 Dustin Lemus MD) Father CAD (coronary artery disease) Hypertension Mother CAD (coronary artery disease) Hypertension Sister Hypertension Cardiac Rehabilitation Info Cardiac Rehabilitation Program Information: Cardiac Rehabilitation is important for patients like you who are recovering from a heart problem. Cardiac rehabilitation programs are recognized as integral to the continued care of the patient with coronary heart disease. The cardiac rehabilitation program is designed to optimize a patient's physical, psychological, and social functioning. Health ambulatory care coordinator work in cardiac rehabilitation programs and assist you with getting the treatments you need to get stronger and healthier - like exercise, healthy eating habits, and medications. Cardiac rehabilitation has been show to help people with heart problems live longer and have better life enjoyment than people who do not go to cardiac rehabilitation. Please contact the Cardiac Rehabilitation Program at [facility] at in two weeks if you have not heard from them.
--- NOTE | 2020-03-25 12:33 | CRPH1.INSTRU ---
General Education CAD and cardiac anatomy and function:: Patient communicates acknowledgment Explanation of diagnoses and procedures:: Patient communicates acknowledgment Sign/Symptoms of OR:: Patient communicates acknowledgment Antiplatelet therapy: Patient communicates acknowledgment Proper use of NTG-SL: Patient communicates acknowledgment Emergency procedures and activation of EMS: Patient communicates acknowledgment Compliance of all prescribed medications: Patient communicates acknowledgment - PATIENT HAS PREVIOUSLY PARTICIPATED IN MONITORED CARDIAC REHAB PHASE II. Dyslipidemia Patient Dyslipidemia Risk Factors Are:: Total Cholesterol, Triglycerides, HDL, LDL Recommendations Include:: Lipid profile provided Dyslipidemia Response Code:: Patient communicates acknowledgment Hypertension Patient Hypertension Risk Factors Are:: No documented hx of HTN Recommendations Include:: Maintain BP <130/85, DASH dietary guidelines Hypertension:: Patient communicates acknowledgment Heart Disease Patient Heart Disease Risk Factors Are:: Family history of heart disease < 65 years old, Previous cardiac event Recommendations Include:: Educated family members of their risk, Educated family members of importance of prevention of heart disease Heart Disease Response Code:: Patient communicates acknowledgment
[2020-03-25] MEDS: busPIRone 5 MG Tablet 10 MG PO ×2 (15:01→21:20)
[2020-03-25] MEDS: Pantoprazole Sodium 40 MG Tablet PO (21:20)
[2020-03-25] MEDS: Pravastatin 80 MG Tablet PO (21:21)
[2020-03-25] MEDS: Metoprolol Tartrate 50 MG Tablet PO (21:21)
[2020-03-26 03:00] VITALS: PULSE 65
[2020-03-26 03:25] VITALS: BP 133/70; PULSE 64; RESP 18; TEMP 36.6; O2SAT 97
[2020-03-26] MEDS: busPIRone 5 MG Tablet 10 MG PO (05:06)
[2020-03-26] MEDS: Levothyroxine 50 MCG Tablet PO (05:06)
[2020-03-26 05:54] LABS: Hematocrit 39.8 % (37-47); Mean Corp Hgb Conc 32.7 g/dL (32-36); Mean Corpuscular Volume 94.8 fL (81-99); Mean Platelet Vol. 10.1 fl (6.2-12.0); Platelet Count 228 K/mm3 (150-450); RBC Distribution Width CV 12.1 % (11.6-14.6); RBC Distribution Width SD 42.3 fl (35.1-43.9); White Blood Count 6.7 K/mm3 (4.4-11.0)
[2020-03-26 06:14] LABS: ALB/GLOB Ratio 1.1 RATIO (0.9-2.4); AST(SGOT) 22 U/L (15-37); Alanine Aminotransfer ALT/SGPT 21 U/L (13-56); Albumin, Serum 3.6 g/dL (3.2-5.0); Alkaline Phosphatase 60 U/L (45-117); Anion Gap 7 (5-15); BUN 19 mg/dL (7-18); BUN/Creat Ratio 21.1 RATIO (10-20); Calcium,Total 9.1 mg/dL (8.5-10.1); Chloride 109 mmol/L (98-107); EST Glomerular Filtration Rate 67 mL/min (>60); Est Glom Filt Rate - Afr Amer 81 mL/min (>60); Estimated Creatinine Clearance 49.29 ml/min; Globulin 3.3 g/dL (2.2-4.2); Glucose 102 mg/dL (74-106); Potassium 3.9 mmol/L (3.5-5.1); Protein, Total 6.9 g/dL (6.4-8.2); Sodium Level 139 mmol/L (136-145)
--- NOTE | 2020-03-26 07:04 | PN.CARD_ITS ---
Subjectve: Patient seen and evaluated. Appears to be doing quite well. Objective: Vital Signs Temp Pulse Resp BP Pulse Ox 97.8 F 64 18 133/70 H 97 03/26/20 03:25 03/26/20 03:25 03/26/20 03:25 03/26/20 03:25 03/26/20 03:25 Oxygen Delivery Method Room Air Weight: 166 lb 14.592 oz Body Mass Index (BMI) 30.5 Intake and Output for Last 24 Hours 03/24/20 03/25/20 03/26/20 23:59 23:59 23:59 Intake Total 1201.67 / 1301.67 100 / 100 Output Total 600 / 600 Balance 601.67 / 701.67 100 / 100 General: Awake, Alert, Oriented x 3 HEENT: PERRL, EOMI, Sclera Non Icteric Neck: Supple, Good ROM, No Lymph Node Enlargement Lungs: Clear to auscultation Cardiovascular: Regular Rhythm, Normal S1, Normal S2, No Murmurs, No Rubs, No Gallops 03/26/20 05:04: WBC 6.7, RBC 4.20, Hgb 13.0, Hct 39.8, MCV 94.8, MCH 31.0, MCHC 32.7, Plt Count 228, MPV 10.1 03/26/20 05:04: Sodium 139, Potassium 3.9, Chloride 109 H, Carbon Dioxide 23.0, Anion Gap 7, BUN 19 H, Creatinine 0.90, Est GFR (MDRD) Af Amer 81, Est GFR (MDRD) Non-Af 67, BUN/Creatinine Ratio 21.1 H, Glucose 102, Calcium 9.1, Total Bilirubin 0.90 Rhythm: EKG: ECHO: Stress Test: Cardiac Cath: PCI: CT Surgery: Holter monitor: EPS: PPM: CXR: Chest CT Scan: Medical Necessity - Tobacco Use Smoking Status: Former smoker Assessment/Plan 1. Coronary artery disease. * Patient is status post angioplasty and stenting of the saphenous vein graft to the obtuse marginal branch. Patient did well overnight. No EKG changes. Plan is for the patient to be discharged for outpatient follow-up. Cardiac rehab will be instituted.
--- NOTE | 2020-03-26 07:05 | DCINST_ITS ---
Discharge Diet: Low fat/ Low Cholesterol Lifting Restrictions: 10 pounds and also avoid any pushing or pulling for 3 days after your test. Additional Activity Instructions:: You must have someone drive you home. Do not drive until instructed by your doctor. You must have someone stay with you all night after your test. Rest in bed or on the couch until the next morning. Limit the number of times you go up and down stairs the day of your test. Apply pressure to the puncture site if you sneeze or cough. Call your doctor if your incision/area has: Increased Pain/ Swelling, Increased Redness, Foul Smelling Discharge, Swelling at the incision site Call your doctor if you observe: Fever of 101 or Higher Additional Dressing/Incision Instructions:: Keep the dressing (bandage) on until the next morning. You may then shower, but do not take a tub bath for 5 days after your test. It is normal to have some tenderness and discomfort at the puncture site. Sometimes bruising also occurs. However, if pain, numbness, or coldness occurs below the puncture site (in your leg, toes, arms or fingers) call your doctor at once. You may have a small, marble sized knot at the puncture site. This is normal. Do not rub it. It will go away in 4-6 weeks. Bleeding can occur from the area where the puncture was done. Blood may spurt or drip from the site. If blood spurts, apply pressure right away to stop bleeding and call 911. Although rare, bleeding into the tissue (hematoma) can also occur. If this happens, a large, firm area goose egg under the skin will appear. If any of these occur, lie down as flat as you can and have someone apply firm pressure to the cath site with a gauze pad or a clean washcloth for 10-15 minutes. Call 911 or go to the Emergency Department. Allergies/Adverse Reactions: Allergies adhesive tape Allergy (Verified 11/28/19 09:00) Rash codeine Allergy (Verified 11/28/19 09:00) Itching doxazosin Allergy (Verified 11/28/19 09:00) DROPS HEART RATE furosemide [From Lasix] Allergy (Verified 11/28/19 09:00) Itching latex Allergy (Verified 11/28/19 09:00) Rash lisinopril Allergy (Verified 11/28/19 09:00) Angioedema oxycodone HCl [From Percocet] Allergy (Verified 11/28/19 09:00) Itching tramadol HCl [From Ultram] Allergy (Verified 11/28/19 09:00) Itching isosorbide mononitrate Adverse Reaction (Intermediate, Uncoded 11/28/19 09:00) Dizzy, not feeling well Medications to take at Discharge Levothyroxine [Synthroid] 50 mcg PO DAILY 02/03/14 Multivitamins,Therapeutic [Multivitamin] 1 tab PO DAILY 02/03/14 busPIRone [Buspar] 10 mg PO TID 02/03/14 [place]-3 Fatty Acids [Fish Oil] 1,500 mg PO DAILY 10/20/15 Aspirin [Aspirin, Baby] 81 mg PO DAILY@0800 09/24/16 Magnesium 400 mg PO DAILY 05/27/17 Cetirizine HCl [Zyrtec] 10 mg PO DAILY 11/02/19 duloxetine 30 mg capsule,delayed release 60 mg PO DAILY 11/28/19 lactobacillus combination no.4 3 billion cell capsule 3,000 mmu cells PO DAILY 11/28/19 nitroglycerin 0.4 mg sublingual tablet 0.4 mg SUBLINGUAL Q5-15M PRN #25 tab 11/28/19 omeprazole 20 mg capsule,delayed release 40 mg PO BID cap 11/28/19 metoprolol tartrate 50 mg tablet 50 mg PO BID #180 tab 01/11/20 amlodipine 10 mg tablet 10 mg PO DAILY #90 tab 01/16/20 clopidogrel 75 mg tablet 75 mg PO DAILY #90 tab 01/16/20 pravastatin 80 mg tablet 80 mg PO QHS #90 tab 01/16/20 spironolactone 25 mg tablet 25 mg PO DAILY #90 tab 02/05/20 Isosorbide Mononitrate [Isosorbide Mononitrate ER] 30 mg PO BID 03/22/20 Orders to be completed after discharge: Phase II, Outpatient Cardiac Rehab Location: None Selected Primary Care Physician: Teresa Boggs DO [Primary Care Provider] - Test Results: Test results from this visit will be discussed in further detail at your follow- up appointment, if applicable. When: cardiac rehab.. office will call Proposed Discharge Date: 03/26/20 Cardiac Rehabilitation Info Cardiac Rehabilitation Program Information: Cardiac Rehabilitation is important for patients like you who are recovering from a heart problem. Cardiac rehabilitation programs are recognized as integral to the continued care of the patient with coronary heart disease. The cardiac rehabilitation program is designed to optimize a patient's physical, psychological, and social functioning. Health career technical education teacher work in cardiac rehabilitation programs and assist you with getting the treatments you need to get stronger and healthier - like exercise, healthy eating habits, and medications. Cardiac rehabilitation has been show to help people with heart problems live longer and have better life enjoyment than people who do not go to cardiac rehabilitation. Please contact the Cardiac Rehabilitation Program at [facility] at in two weeks if you have not heard from them.
[2020-03-26 07:25] VITALS: PULSE 63
[2020-03-26 07:45] VITALS: O2SAT 95
[2020-03-26 09:25] VITALS: BP 147/68; PULSE 68; RESP 18; TEMP 36.7; O2SAT 98
[2020-03-26] MEDS: Aspirin 81 MG TAB.CHEW PO (09:55)
[2020-03-26] MEDS: Spironolactone 25 MG Tablet PO (09:55)
[2020-03-26 09:56] VITALS: BP 147/68; PULSE 67
[2020-03-26] MEDS: DULoxetine Hcl 30 MG Capsule 60 MG PO (09:56)
[2020-03-26] MEDS: Metoprolol Tartrate 50 MG Tablet PO (09:56)
[2020-03-26] MEDS: Isosorbide Mononitrate 30 MG Tablet PO (09:56)
[2020-03-26] MEDS: amLODIPine 10 MG Tablet PO (09:57)
[2020-03-26] MEDS: Pantoprazole Sodium 40 MG Tablet PO (09:57)
[2020-03-26] MEDS: Clopidogrel Bisulfate 75 MG Tablet PO (09:57)
[2020-03-26] MEDS: Magnesium Chloride 64 MG Delay Rel.Tablet 128 MG PO (09:57)
--- NOTE | 2020-03-26 09:57 | PHA.DC.MR ---
Pharmacy Service has performed discharge medication reconciliation for this patient. No new medications issued at time of discharge. Medications reviewed are from previously reported home medications. Home Medications Levothyroxine [Synthroid] 50 mcg PO DAILY 02/03/14 Multivitamins,Therapeutic [Multivitamin] 1 tab PO DAILY 02/03/14 busPIRone [Buspar] 10 mg PO TID 02/03/14 [place]-3 Fatty Acids [Fish Oil] 1,500 mg PO DAILY 10/20/15 Aspirin [Aspirin, Baby] 81 mg PO DAILY@0800 09/24/16 Magnesium 400 mg PO DAILY 05/27/17 Cetirizine HCl [Zyrtec] 10 mg PO DAILY 11/02/19 duloxetine 30 mg capsule,delayed release 60 mg PO DAILY 11/28/19 lactobacillus combination no.4 3 billion cell capsule 3,000 mmu cells PO DAILY 11/28/19 nitroglycerin 0.4 mg sublingual tablet 0.4 mg SUBLINGUAL Q5-15M PRN #25 tab 11/28/19 omeprazole 20 mg capsule,delayed release 40 mg PO BID cap 11/28/19 metoprolol tartrate 50 mg tablet 50 mg PO BID #180 tab 01/11/20 amlodipine 10 mg tablet 10 mg PO DAILY #90 tab 01/16/20 clopidogrel 75 mg tablet 75 mg PO DAILY #90 tab 01/16/20 pravastatin 80 mg tablet 80 mg PO QHS #90 tab 01/16/20 spironolactone 25 mg tablet 25 mg PO DAILY #90 tab 02/05/20 Isosorbide Mononitrate [Isosorbide Mononitrate ER] 30 mg PO BID 03/22/20 The patient's discharge medication list was reviewed for discrepancies and discrepancies were resolved.
[2020-03-26] MEDS: Loratadine 10 MG Tablet PO (09:59)
--- NOTE | 2020-03-26 10:00 | EKG12_ITS ---
Test Reason : AM EKG Blood Pressure : / mmHG Vent. Rate : 057 BPM Atrial Rate : 057 BPM P-R Int : 150 ms QRS Dur : 086 ms QT Int : 416 ms P-R-T Axes : 061 019 032 degrees QTc Int : 404 ms Sinus bradycardia Nonspecific ST and T wave abnormality Abnormal ECG When compared with ECG of 25-MAR-2020 11:10, MANUAL COMPARISON REQUIRED, DATA IS UNCONFIRMED Confirmed by JANNET METCALF, DUSTIN ([id number]), development editor TRINY CONN ([id number]) on 04/29/2020 1:48:21 PM Referred By: Dustin Lemus Confirmed By:DSUTIN LEMUS MD
== END 2020-03-26 07:02 | disposition home or self-care (01) ==
LOC: CLSP 07:09 → PCU 10:38
PROVIDERS: Specialist; PCP Family Medicine; Referring Provider Internal Medicine Cardiovascular Disease; Visit Provider Internal Medicine Cardiovascular Disease
DX: I25.110 Atherosclerotic heart disease of native coronary artery with unstable angina pectoris (principal); I25.82 Chronic total occlusion of coronary artery; E78.5 Hyperlipidemia, unspecified; K21.9 Gastro-esophageal reflux disease without esophagitis; E03.9 Hypothyroidism, unspecified; M79.7 Fibromyalgia; K58.9 Irritable bowel syndrome, unspecified; Z79.899 Other long term (current) drug therapy; Z79.82 Long term (current) use of aspirin; F31.9 Bipolar disorder, unspecified; M19.90 Unspecified osteoarthritis, unspecified site; I50.32 Chronic diastolic (congestive) heart failure; I11.0 Hypertensive heart disease with heart failure; H53.8 Other visual disturbances; Z95.1 Presence of aortocoronary bypass graft
CPT/HCPCS: 36415; 80053; 85027; 92928; 93005; 93459; 99152; 99153; J7030; J7040; C1725; C1769; C1874; C1887; C1894; C9600; Q9967

== ENCOUNTER → 2020-03-28 | Outpatient (CLI) | payer MEDICARE, SELFPAY ==
[2020-03-28 09:36] VITALS: BMI 30.5
[2020-04-02 17:13] LABS: HPV APTIMA, High Risk Negative (Negative)
== END | disposition home or self-care (01) ==
LOC: LABSPEC 12:39
PROVIDERS: PCP Family Medicine; Referring Provider Obstetrics & Gynecology; Visit Provider Obstetrics & Gynecology
DX: Z12.4 Encounter for screening for malignant neoplasm of cervix (principal)
CPT/HCPCS: 87624; 88175; G0145

== ENCOUNTER → 2020-04-09 11:56 | Outpatient (CLI) | payer MEDICARE, SELFPAY ==
[2020-03-25 10:51] VITALS: BMI 30.5
[2020-03-28 09:36] VITALS: BMI 30.5
--- NOTE | 2020-04-09 12:07 | CR.ITP_ITS ---
Diagnosis - General Information Admitting Diagnosis: PCI W/CORONARY STENTING Personal Learning Style:: Audio/Visual, Written Barriers to Learning: Vision Impairment Stage of change r/t lifestyle modifications:: Action Gave educational material for:: Treating Heart Disease, Emotions & Heart Disease, Stress Management & Relaxation, Sleep Disorders & Heart Disease, How The Heart Works, What it means to have Heart Disease, How Coronary Artery Disease is Diagnosed, Heart Procedures, What Heart Medications Do, Risk Factors & Modifications, Living an Active Life, Nutrition - Education/Goals Individual Counseling: Initial Assessment: Abnormal Cholesterol Levels, High Blood Pressure, Overweight/Obesity Cardiac Rehabilitation Goals: 1. Maintain the individual as the primary focus of care. 2. To improve the patient's quality of life. 3. Identification of cardiac risk factors and provide cardiac risk factor management. 4. Enhance the psychosocial status of the patient. 5. Reconditioning enough to allow the patient to resume customary activities. 6. Control symptoms of cardiac disease Personal Goals: Initial Assessment: Improve management of stress and emotions, Improve energy level, Participate in home exercise program, Improve knowledge of cardiac disease, Improve muscle strength and endurance, Control risk factors ( learn risk factor modification) Scale for measuring improvement of personal goals: Enter appropriate number in Comments. 2 = Unchanged. 3 = Slightly Better. 4 = Moderate Improvement. 5 = Met my Goal - Diagnosis & Disease Process Outcomes/Goals: Pt IDs own risk factors & lifestyle modifications by Session 10, Verbalizes symptoms of angina & response by session 3., Pt independently manages Plan/Interventions: Assist Pt to ID & engage in lifestyle modification to reduce CVD risk, Instruct on individual risk factors, Review symptoms of angina & emergency actions, Review secondary diagnosis & identify educational needs. - Safety Referral to Physical Therapy: No Referral to [facility] Case Management: No Fall Risk Assessed:: Yes Assistive Devices:: None Exercise - Initial Assessment - Visit Date of Eval: 04/09/20 Session #:: 0 - PRE-CARDIAC REHAB Mets: Pre-: >5 METS for 30 minutes by discharge - Physician Prescribed Exercise Modalities: Treadmill, Airdyne, NuStep Frequency: 3x/week for 12 weeks [36 sessions] Intensity: 60-80% of age predicted maximum heart rate reserve Current METSs:: 3.5 Target Heart Rate:: 100-131 - Outcomes & Goals Goals:: Verbalizes understanding of THR, RPE & goal METS by session 6, Documents in home exercise log/reports 30 min aerobic 5 day/wk by DC, Demonstrates accu rate pulse taking by DC - Intervention & Plan Exercise Program Goals: Instruct on personal THR & RPE, Instruct on MET level & personal MET goal, Show patient to take own pulse /validate performance until accurate, Instruct on home exercise - Physical Activity Home Exercise Physical Activity - Home Exercise: Safe Exercise, Warm-up, Self-monitoring, Cool-Down, Home Exercise > 30 min Daily, Sitting Time <3 hours/daily - Outcomes & Goals Outcomes/Goals: Demonstrates correct Warm-up/exercise Cool-Down (S3) if = 2.5 METs, Verbalizes symptoms of exercise intolerance by Session 3 (S3), Demonstrate safe equipment use (S3) & follows exercise prescrition (6) - Intervention & Plan Plan/Intervention: Instruct warm-up & cool-down if exercising at > 2 METs, Instruct on symptoms of exercise intolerance & actions to take, Instruct & monitor on saf, Assess intial functional capacity & safety risk Nutrition - Initial Assessment - Program Goals Nutrition Program Goals: LDL <100 optimal. 100 - 129 Near optimal. 130 - 159 Borderline High. 160 - 189 High. Total Cholesterol <200 desirable. 200 - 239 Borderline High. >/= 240 High. HDL < 40 Low >/=60 High. Triglycerides <150 d esirable. <199 optimal. VlDL 5 - 40. HgbA1C <7%. BMI <25 Patient has diagnosis of Hyperlipidemia (ICD E78)?: Yes - Visit Date of Assessment:: 04/09/20 Session #:: 0 - PRE-CARDIAC REHAB - Cholesterol/Lipids Triglycerides (mg/dL): 205 - 09/08/2018 Total Cholesterol (mg/dL): 150 LDL Cholesterol (mg/dL): 741 HDL Cholesterol (mg/dL): 56 Determine presence & major risk factors that modify LDL goal: Hypertension or hypertensive medication, Family history of premature CHD in Male < 55 years: female <65 yearsFa, Age men > 45 years; women >/= 55 years Outcomes/Goals: Pt IDs own risk factors & lifestyle modifications by Session 10, Verbalizes symptoms of angina & response by session 3., Pt independently manages Intervention/Plan: Instruct on personal lipid levels & lipid goals/NCEP guidelines, Instruct on cholesterol Referral to dietitian:: Yes - Diabetes (Other Core Measures) Diabetes Type: Not Applicable - Weight Mgt (Other Care) Not Applicable: No Height: 5 ft 1 in Weight:: 163 lb BMI: 30.8 Diagnosis Overweight/Obesity BMI> 30% ICD-10 E66: Yes Diagnosis High BMI/Morbid Obesity BMI> 35% ICD-10 Z68: No Outcomes/Goals: Pt sets, maintains & shows weight loss goal & trend during rehab Intervention/Plan: Instruct on ideal BMI & set weight loss goal w/patient, Assist pt to ID & incorporate diet changes for weight loss by S9, Refer to Structured Weight Loss program as appropriate, Encourage goal of using 250- 300dcal per session for weight loss - Healthy Eating Habits Will attend diet classes:: Yes Outcomes/Goals:: Consume diet rich in vegs,fruits,whole grain/high f iber,fish,lean meat, Limit sat/trans fats,cholesterol & added salts & sugars Intervention/Plan:: Assess current eating habits - Education Gave educational materials for:: Healthy eating Medical - Initial Assessment - Visit Date of Eval: 04/09/20 Session #:: 0 - PRE-CARDIAC REHAB - Medication Compliance Preventative Medication(s):: Aspirin, Clopidogrel/P2Y12 inhibit, Statin/lipid, Beta kelin H/O mental health issues: depression, anxiety, or addiction?: Yes Doesn?t believe in the benefits of treatment?: No Believes medications are unnecessary or harmful?: No Has a concern about medication side effects?: No Expresses concern over the cost of medications?: No Outcomes/Goals: Verbalizes medications,desired effect & common side effects @ DC, Pt self-reports following medication regimen, Keeps card in wallet w/medications listed by DC Interventions/plans: Instruct on medication effects & side effects, Review medication list w/patient every two weeks, Instruct importance of taking meds as ordered & assist problem solving - Tobacco Use Tobacco Use: Non-smoker - Hypertension Resting Blood Pressure:: 127/65 [place] [employer] Hypertension Guidelines: [place] [employer] Hypertension Guidelines. Normal BP Less than 120/80. Elevated BP 120/80. Hypertension Stage 1: BP 130-139/80-89. Hypertesnion Stage 2: BP 140 or higher/90 or higher. Hypertension Crisis: BP higher than 180/120 Outcomes/Goals: Able to verbalize/achieve optimal blood pressure <130/80, Incorporates diet changes & exercise for blood pressure control by DC Interventions/plan: Instruct on optimal blood pressure, hypertension & medications, Instruct on effects of sodium, alcohol, stress, exercise &hypertension - Tobacco Cessation Referral Smoking Cessation Referral:: No Individual Education/Counseling:: No Education Schedule Given:: Yes Psychosocial - Initial Assess - VIsit Date of Eval: 04/09/20 Session #:: 0 - PRE-CARDIAC REHAB Not Applicable: Yes History of previous Mental disease:: Yes - BiPOLAR DISORDER History of Emotional Disorders: Depression Self-reported stressors: Medical/Health, Recent Illness - Target Goals Target Goals: Assess presence or absence of depression. Using a valid screening tool, maximizes coping skills. Positive support system - Psychosocial Test Tool Used:: Catrachita Inman QOL Cardiac, PHQ-9 Questionnaire phq-9 Severity: Severity. 1-4 Minimal Depression. 5-9 Mild Depression. 10-14 Moderate Depression. 15-19 Moderately Sever Depression. 20-27 Severe D epression. Rule: - Referral to Behavioral Health PS - Interventions: Yes Attend Stress Management Classes, No Referral to Behavioral Health if PHQ-9 score >9:, No Referral to [facility], No Referral to Physician if PHQ-9 if score is 5-9: - Outcomes/Goals: See list Psychosocial Outcomes/Goals:: ID's personal stressors & 2 strategies to manage stress by discharge - Intervention/Plan: See List Interventions/Plan:: Assess stressors,coping strategies & signs of derpression on admission, Instruct/assist pt to develop coping & personal stress Mgt strategies, Instruct patient to recognize signs & symptoms of depression, Instruct patient to recog Patient Health Questionnaire Initial Assessment 1. Little interest or pleasure in doing things: Not at all 2. Feeling down, depressed, or hopeless: Not at all 3. Trouble falling or staying asleep, or sleeping too much: Not at all 4. Feeling tired or having little energy: Not at all 5. Poor appetite or overeating: Not at all 6. Feeling bad about yourself -- or that you are a failure or have let yourself or your family down: Not at all 7. Trouble concentrating on things, such as reading the newspaper or watching television: Not at all 8. Moving or speaking so slowly that other people could have noticed. Or the opposite - being so fidgety or restless that you have been moving around a lot more than usual: Not at all 9. Thoughts that you would be better off , or of hurting yourself in some way: Not at all How difficult have these problems made it for you to do your work, take care of things at home, or get along with other people?: Not difficult at all Total Score: 0 TONG-Q SV Test - Statements CAD is a disease of the arteries in the heart: False Examples of risk factors for heart disease: True Angina is chest pain or discomfort: True The benefits of resistance training include: True Eating more meat and dairy products: False Anti-platelet medications such as aspirin are important: True The only effective way to manage stress: False An exercise warm-up slowly increases heart rate: True Prepared, processed foods usually have high sodium: True Depression is common after a heart attack: True The statin medications lower cholesterol: True To control blood pressure, lower the amount of sodium: True If someone gets chest discomfort during walking: False Transfats are partially hydrogenated vegetable oils: True Sleep apnea that is not treated increases the risk: False To control cholesterol, one should become a vegetarian: False Someone knows if he/she is exercising at the right level: True Diabetes cannot be prevented with exercise & health eating: False Stress is a large risk for heart attack: True A diet that can help lower blood pressure is rich in: True - Total Score Total Correct Responses: 20 Self-Efficacy Initial Assessment We would like to know how confident you are in doing certain activities. Please select your confidence level for:: Select your confidence level for the following using the scale 1-10 where 1 is not at all confident and 10 is totally confident. Your score is the average of all 6 responses. Fatigue: How confident are you that you can keep the fatigue caused by your disease from interfering with the things you want to do? Select Number: 10 Physical Discomfort or Pain: How confident are you that you can keep the physical discomfort or pain of your disease from interfering with the things you want to do? Select Number: 10 Emotional Distress: How confident are you that you can keep the emotional distress caused by your disease from interfering with the things you want to do? Select Number: 10 Other Symptoms or Health Problems: How confident are you that you can keep other symptoms or health problems from interfering with the things you want to do? Select Number: 10 Different Tasks and Activities: How confident are you that you can do the different tasks and activities needed to manage your health condition so as to reduce your need to see a doctor? Select Number: 10 Medication: How confident are you that you can do things other than just taking medication to reduce how much your illness affects your everyday life? Select Number: 10 Total Score:: 10 Nutrition Survey - Nutrition Survey Instructions Scoring Instructions: Scoring is as follows: Yes = 1 points. No = 0 point. Patient score that is >/=12 is considered to be at potential nutritional risk and could benefit from a referral to a registered dietitian. - Nutrition Survey Initial Have you lost >10 lbs over the past 2 months without trying?: No Are you following a special diet at home for diabetes, low fat, or low salt?: No Are you interested in meeting with a dietitian for help understanding your diet?: No Do you eat less than 3 meals a day?: Yes Do you eat fatty meats (ortega, sausage, ribs, etc), fried foods, desserts, large amounts of salad dressings, margarine, butter, or cheese most days?: No Do you have food allergies? [Enter types in comment field]: No Do you eat in restaurants more than 3 times a week?: No Do you season food with salt, seasoning salt, or garlic salt?: No Do you used canned, boxed, frozen meals, or soups, seasoning packets?: No Total Score:: 1
--- NOTE | 2020-04-09 12:08 | PCM.CR.HP2 ---
CR - History & Physical - General Arrival date:: 04/09/20 Arrival time:: 11:55 Date of Referral:: 03/25/20 Date of CR Evaluation:: 04/09/20 Referring Physician: DR.CYRIL POWER Primary Diagnosis: PCI W/COROANRY STENTING - History of Present Cardiac Event Onset Date: Enter Onset Date of cardiac illnesses in Comment field below Current stable Angina Pectoris:: Yes - ATHERSCLEROTIC HEART DISEASE WITH OTHER FORMS OF ANGINA Coronary Artery Bypass Graft:: Yes - PTCA or coronary stenting:: Yes - 10/22/2015, 03/25/2020 Type of Symptoms:: SHORTNESS OF BREATH, CHEST PAIN/DISCOMFORT, FATIGUE - Medications Home Medications: Ambulatory Orders Medication Instructions Recorded Levothyroxine [Synthroid] 50 mcg PO DAILY 02/03/14 Multivitamins,Therapeutic 1 tab PO DAILY 02/03/14 [Multivitamin] busPIRone [Buspar] 10 mg PO TID 02/03/14 Stephens-3 Fatty Acids [Fish Oil] 1,500 mg PO DAILY 10/20/15 Aspirin [Aspirin, Baby] 81 mg PO DAILY@0800 09/24/16 Magnesium 400 mg PO DAILY 05/27/17 Cetirizine HCl [Zyrtec] 10 mg PO DAILY 11/02/19 duloxetine 30 mg capsule,delayed 60 mg PO DAILY 11/28/19 release lactobacillus combination no.4 3 3,000 mmu cells PO DAILY 11/28/19 billion cell capsule nitroglycerin 0.4 mg sublingual 0.4 mg SUBLINGUAL Q5-15M PRN #25 11/28/19 tablet tab omeprazole 20 mg capsule,delayed 40 mg PO BID cap 11/28/19 release metoprolol tartrate 50 mg tablet 50 mg PO BID #180 tab 01/11/20 amlodipine 10 mg tablet 10 mg PO DAILY #90 tab 01/16/20 clopidogrel 75 mg tablet 75 mg PO DAILY #90 tab 01/16/20 pravastatin 80 mg tablet 80 mg PO QHS #90 tab 01/16/20 spironolactone 25 mg tablet 25 mg PO DAILY #90 tab 02/05/20 Isosorbide Mononitrate [Isosorbide 30 mg PO BID 03/22/20 Mononitrate ER] - Allergies Allergies/Adverse Reactions: Allergies adhesive tape Allergy (Verified 03/28/20 09:29) Rash codeine Allergy (Verified 03/28/20 09:29) Itching doxazosin Allergy (Verified 03/28/20:) DROPS HEART RATE furosemide [From Lasix] Allergy (Verified 03/28/20:) Itching latex Allergy (Verified 03/28/20:) Rash lisinopril Allergy (Verified 03/28/20 09:) Angioedema oxycodone HCl [From Percocet] Allergy (Verified 03/28/20:) Itching tramadol HCl [From Ultram] Allergy (Verified 03/28/20:) Itching isosorbide mononitrate Adverse Reaction (Intermediate, Uncoded 03/28/20:) Dizzy, not feeling well - Sleep Disorder Evaluation Hx of Sleep Apnea: No Do you snore loudly (louder than talking or can be heard through closed doors)?: No Do you often feel tired/ fatigued/ sleepy during daytime?: Yes Has anyone observed you stop breathing during sleep?: No History of Hypertension (for STOP score): Yes STOP Results: Positive Advanced Directives - Advanced Directives Power of Application Technician: No Living Will: No Advance Directives Information Provided: Yes Advance Directives on File: No DNR Order?:: No - MOLST See MOLST form: No Past Medical History - Covid-19 Screening Fever: No Unexplained muscle aches: No Current respiratory symptoms: No Upper respiratory infections symptoms: No Gastro-intestinal symptoms: No [id number]-[id number] symptoms: No Has tested positive for COVID-19 in last 30 days: No Had contact w/person w/symptoms or Covid-19 (+) last 14 days: No Has High Risk Exposures ID'd by Health dept/Inf Control team: No 65 years or older:: Yes Lives in Assisted Living facility:: No Has a chronic lung disease or moderate to severe asthma:: No Has a serious heart condition:: Yes Immunocompromised:: No Severely obese (Body Mass Index of 40 or higher):: No Diabetic:: No Has chronic kidney disease undergoing dialysis:: No - Past Medical Illness Medical History: Past Medical History (Last Reviewed 03/28/20 @ 09:35 by Marli Isaacs) Atherosclerosis of coronary artery of [place] heart with angina pectoris (Chronic) I25.119 Chronic diastolic (congestive) heart failure (Chronic) I50.32 Essential (primary) hypertension (Chronic) I10 Hyperlipidemia (Chronic) E78.5 Actinic keratoses L57.0 Basal cell carcinoma of neck C44.41 Bipolar 1 disorder F31.9 Bipolar disorder F31.9 CVA (cerebral vascular accident) I63.9 Fibromyalgia M79.7 GERD (gastroesophageal reflux disease) K21.9 GERD (gastroesophageal reflux disease) K21.9 Hypothyroid E03.9 Hypothyroidism E03.9 IBS (irritable bowel syndrome) K58.9 IBS (irritable colon syndrome) K58.9 Myocardial infarct I21.9 Osteoarthritis M19.90 PTSD (post-traumatic stress disorder) F43.10 Post traumatic stress disorder (PTSD) F43.10 Seizure disorder G40.909 TIA (transient ischemic attack) G45.9 Blurred vision, bilateral H53.8 Contusion of left hand, initial encounter S60.222A Slurred speech R47.81 Subluxation of left thumb S63.102A Non-rheumatic tricuspid valve insufficiency (Ruled-out) I36.1 - Past Surgical History Surgical History: Past Surgical History (Last Reviewed 03/28/20 @ 09:35 by Marli Isaacs) H/O coronary artery bypass surgery (Chronic) Onset Date: 10/21/07 Z95.1 CABG x 2 VARGAS-LAD, SVG-OM2 10/21/2007 H/O right coronary artery stent placement (Chronic) Onset Date: 03/25/20 Z95.5 ORY-SDF-Vozs RCA w/ 3.0 x 12 mm Promus Element 03/30/2013; TAW-RDO-Hitdps RCA w/ 2.25 x 24 mm Synergy JATIN-Distal RCA-Prox/Ostium PDA w/ 2.25 x 16 mm Synergy 10/22/2015; FDR-JZB-XWA-OM2 w/ 3.5 x 38 mm Synergy MR Stent 03/25/2020 History of left heart catheterization Onset Date: 08/09/17 Z98.890 Surgical History: coronary bypass surgery, - - cath with a stent in 2012 - Family History Summary Family History: Family History (Last Reviewed 03/28/20 @ 09:35 by Mrali Isaacs) Father CAD (coronary artery disease) Hypertension Mother CAD (coronary artery disease) Hypertension Sister Hypertension Social History - Smoking History Smoking Status: Former smoker Hx Smoking Cessation Date: 06/10/78 - Occupation Occupation (List type of work in comments):: Retired - Hobbies, Recreation, Social Activities Hobbies: Reading - WRITING, READING, Walking - NEIGHBORHOOD., Exercise - RECUMBENT BIKE AT HOME WAITING TO DO CR FIRST THEN WILL RESUME., Other Recreational Activities: I am able to engage in most, but not all activities Social Environment - Status Marital Status: Single - Current Living Arrangements Living Environment:: Alone - Children How many children do you have?: 1 - 2-GREAT GRANDCHILDREN!! Do any of your children live nearby?: No - Safety Do you feel safe in your surroundings?: Yes - Assistance Do you need any assistance at home?: NONE Review of Systems - Review of Systems Hints: Right click = Denies (Slash). Left click = Reports ([place]) Review of Present Symptoms: Reports: Angina - VERY VERY SLIGHT; USUALLY OCCURS AT THE END OF THE DAY., Fatigue - USUALLY AROUND 5:00PM REALLY GET HIT HARD, BUT STAY ACTIVE DURING THE DAYTIME, SO IT IS EXPECTED., Appetite - Normal, Appetite - Special Diet - LOW FAT, LOW SODIUM, VERY LITTLE RED MEAT. Denies: Shortness of Breath at Rest, Shortness of Breath with Exertion, Dizziness/Lightheadedness - Pain Is Patient Pain Free?: Yes Pain Location: none Pain Level: 0/10 Risk Factor Assessment - Chief Complaint Chief Complaint: [address] POWER WHO PRESENTS TO CARDIAC REHAB FOLLOWING RECENT PCI INTERVENTION AND STENTING OF CLOSED BYPASS GRAFT VESSEL. - Vital Signs Temperature: 97.3 F Respiratory Rate: 14 Pulse Ox: 97 - Pulse Pulse Rate: 61 Pulse Rhythm: Regular - Hypertension Blood Pressure Sitting - Left Arm: 127/65 - Stress Stress: Recent - Blood Cholesterol/Lipids Total Cholesterol (mg/dL) Goal = less than 200 mg/dL: 150 - 09/08/2018 HDL Cholesterol (mg/dL) Goal = less than 40 mg/dL: 56 LDL Cholesterol (mg/dL) Goal = less than 70 mg/dL: 71 Triglycerides (mg/dL) Goal = less than 150 mg/dL: 205 - Obesity Height: 5 ft 1 in - 0 Weight:: 163 lb Weight in Pounds: 163.0 lbs Weight Source: Standing Scale Body Mass Index (BMI): 30.8 - Physical Inactivity Physical Inactivity: Reg Exercise 30 min/day, Physically demanding job, Recreational activity - Risk Stratification Risk Guidelines: Lowest Risk: Risk Factor for Smoking, Risk Factor for Diabetes, Risk Factor for Sedentary Lifestyle, Risk Factor for Depression, Moderate Risk: Risk Factor for Dyslipidemia, Risk Factor for Hypertension, Highest Risk: Risk Factor for Obesity - For Smoking Smoking Risk Guidelines: Smoking Low Risk: None or quit greater than 6 months ago. Smoking Moderate Risk: Smoker or quit 6 months or less ago. Smoking High Risk: Smoker - For Dyslipidemia Dyslipidemia Risk Guidelines: Low Risk: Moderate Risk: High Risk: 15-25% fat 25.1-29% fat >/= 30% fat. <7% sat fat 7-9% sat fat >9% sat fat. <150 mg chol 150-299 mg chol >/= 300 mg chol. LDL <100 LDL 100-129 LDL >/= 130. Chol/HDL ratio <5.0 Chol/HDL ratio 5.0-6.0 Chol/HDL ratio >6.0. Triglycerides <100 Triglycerides 100-149 Triglycerides >/= 150 - For Diabetes Mellitus Diabetes Risk Guidelines: Diabetes Low Risk: HgA1c <6.5% and/or FBG <120. Diabetes Moderate Risk: HgA1c 6.6-7.9% and/or FBG 120-180. Diabetes High Risk: HgA1c >/= 8% and/or FBG >180 - For Obesity/Overweight Obesity/Overweight Risk Guidelines: Obesity Low Risk: BMI <25.0. Obesity Moderate Risk: BMI 25-29.9. Obesity High Risk: BMI >/= 30.0 - For Hypertension Hypertension Risk Guidelines: Hypertension Low Risk: Systolic <120 and Diastolic <80. Hypertension Moderate Risk: Systolic 120-139 and Diastolic 80-89. Hypertension High Risk: Systolic >/= 140 and Diastolic >/= 90 - For Sedentary Lifestyle Sedentary Lifestyle Risk Guidelines: Sedentary Lifestyle Low Risk: >/= 1,500 kcal/week. Sedentary Lifestyle Moderate Risk: 700-1,499 kcal/week. Sedentary Lifestyle High Risk: < 700 kcal/week - For Depression Depression Risk Guidelines: Depression Low Risk: Not clinically depressed. Depression Moderate Risk: Mildly depressed. Depression High Risk: Clinically depressed - Family History Family History: Family History (Last Reviewed 03/28/20 @ 09:35 by Marli Isaacs) Father CAD (coronary artery disease) Hypertension Mother CAD (coronary artery disease) Hypertension Sister Hypertension Motivation - Motivation to Participate On a scale of 1 to 10, how prepared are you to commit to attending program?: 10 What do you see as barriers to successfully being able to complete the program?: NO What do you see as the benefits of succesfully completing the program? In other words, what do you hope to get out of participating in the program?: BETTER HEALTH, LONGEVITY, FELLING BETTER, GETTING RID OF THIS FATIGUE. Are there issues you are dealing with that will interfere with completing the program?: NO Do you have a spouse or signficant other, family or friends who will help support you to complete the program?: YES
[2020-04-09 12:34] VITALS: BP 127/65; PULSE 61; RESP 14; TEMP 36.3; O2SAT 97; BMI 30.8
[2020-04-09 12:45] VITALS: BP 127/65; BMI 30.8
== END ==
PROVIDERS: PCP Family Medicine; Visit Provider Internal Medicine Cardiovascular Disease
DX: Z95.5 Presence of coronary angioplasty implant and graft (principal); I10 Essential (primary) hypertension; E78.5 Hyperlipidemia, unspecified; E03.9 Hypothyroidism, unspecified; K21.9 Gastro-esophageal reflux disease without esophagitis

== ENCOUNTER 2020-04-26 09:15 | Outpatient (RCR) | payer MEDICARE, SELFPAY ==
[2020-03-28 09:36] VITALS: BMI 30.5
[2020-04-09 12:11] VITALS: BMI 30.8
== END 2020-04-27 23:59 ==
LOC: CR 09:15
PROVIDERS: PCP Family Medicine; Referring Provider Internal Medicine Cardiovascular Disease; Visit Provider Internal Medicine Cardiovascular Disease
DX: I25.119 Atherosclerotic heart disease of native coronary artery with unspecified angina pectoris (principal); Z95.5 Presence of coronary angioplasty implant and graft; Z95.1 Presence of aortocoronary bypass graft; I11.0 Hypertensive heart disease with heart failure; I50.32 Chronic diastolic (congestive) heart failure; E78.5 Hyperlipidemia, unspecified
CPT/HCPCS: 93798

== ENCOUNTER → 2020-05-07 | Outpatient (CLI) | payer MEDICARE, SELFPAY ==
[2020-04-09 12:45] VITALS: BMI 30.8
[2020-05-01 11:06] VITALS: BMI 31.4
== END | disposition home or self-care (01) ==
LOC: LABSPEC 17:22
PROVIDERS: PCP Family Medicine; Referring Provider Family Medicine; Visit Provider Family Medicine
DX: Z20.828 Contact with and (suspected) exposure to other viral communicable diseases (principal)
CPT/HCPCS: 87635; C9803; U0003

== ENCOUNTER → 2020-05-21 09:22 | Outpatient (CLI) | payer MEDICARE, SELFPAY ==
[2020-03-28 09:36] VITALS: BMI 30.5
[2020-05-01 11:06] VITALS: BMI 31.4
[2020-05-09 09:01] VITALS: BMI 31.2
--- NOTE | 2020-05-21 09:28 | BI_ITS ---
MAMMOGRAPHY - BILATERAL SCREENING REASON FOR EXAM: Female, 64 years old. Routine annual screening examination. PERTINENT HISTORY: The cervical exam TECHNIQUE: Digital bilateral breast connor (3D mammographic acquisition) in the CC and MLO projections. 2-D mediolateral oblique (MLO) and craniocaudad (CC) views of both breasts were obtained. CAD: Full Field Digital Mammography with Computer Added Detection was performed. COMPARISON: 05/19/2019 FINDINGS: Breast Composition: Fatty There are no dominant masses or suspicious calcifications. No other significant abnormalities are identified. BI/SCREEN MAMM (CAD) W/CONNOR BILAT IMPRESSION: Stable bilateral screening mammogram. Yearly follow-up mammogram recommended. (A) ASSESSMENT CATEGORY: BIRADS Category 1: Negative. A letter regarding these results will be sent to the patient by the facility within 30 days. Approximately 10% of breast cancers are not detected by mammography. A normal mammogram should not delay biopsy of a clinically suspicious abnormality. [id number] Electronically Signed: Carrington Donovan, at 18:03 EST Tel , Service support ,
--- NOTE | 2020-05-21 09:31 | BD_ITS ---
STUDY: DUAL ENERGY X-RAY ABSORPTIOMETRY / DXA REASON FOR EXAM: Female, 64 years old. Age of munir 52. Pat is 163# and 62 and quot;. Past hx of smoking quit 22 yrs ago. Past hx of taking an HRT. Past hx of taking an anti-seizure med. Takes levothyroxin, multi-vit and mag. Exercises moderately. Hx of a left shoulder fx. TECHNIQUE: Bone Mineral Density (BMD) measurements of lumbar spine and bilateral hips were obtained. COMPARISON: Comparison is made with prior study dated 03/02/2013. FINDINGS: Lumbar Spine (L1-L4): g/cm2 (1.518) / T-score (2.8) / Z-score (4.4) Findings are suggestive of normal bone density with a low fracture risk. Left Femur Total: g/cm2 (1.013) / T-score (0.0) / Z-score (1.3) Left Femoral Neck: g/cm2 (1.074) / T-score (0.3) / Z-score (1.7) Right Femur Total: g/cm2 (0.989) / T-score (-0.1) / Z-score (1.1) Right Femoral Neck: g/cm2 (1.056) / T-score (0.1) / Z-score (1.6) The T-Scores on the most recent prior examination were: Lumbar Spine (L1-L4): There has been improvement of bone density since the previous examination. Left Femur Total: which represents a worsening of 2.9%. Right Femur Total: which represents a worsening of 3.5%. BD/Dexa Bone Density Study IMPRESSION: The patient is considered normal as outlined below according to World [place] Organization (WHO) criteria with a low fracture risk. There has been worsening of bone density since the previous examination. Reference Information: The T-score is the number of standard deviations above or below the standard which is normal for young adults at their peak bone mineral density. The World Health Organization (WHO) interprets the T-scores as follows: Above -1 Normal bone density Between -1 and -2.5 Osteopenia Equal to / or below -2.5 Osteoporosis As a practical clinical guideline, osteopenia may be graded as follows: Mild -1 through -1.5 Moderate -1.6 through -2.0 Severe -2.1 through -2.4 The Z-score is the number of standard deviations above or below age-matched controls. A Z-score of less than -1.5 would be considered abnormal. References: 1. NIH Osteoporosis and Related Bone Diseases www osteo.org 2. International Society for Clinical Densitometry www iscd.org 3. National Osteoporosis Foundation www nof.org Electronically Signed: Dwight Bautista, at 16:19 EST , Service support ,
== END ==
PROVIDERS: PCP Family Medicine; Referring Provider Obstetrics & Gynecology; Visit Provider Obstetrics & Gynecology
DX: Z13.820 Encounter for screening for osteoporosis (principal); Z12.31 Encounter for screening mammogram for malignant neoplasm of breast; Z87.891 Personal history of nicotine dependence; Z79.899 Other long term (current) drug therapy; Z78.0 Asymptomatic menopausal state
CPT/HCPCS: 77063; 77067; 77080

== ENCOUNTER 2020-05-27 09:15 | Outpatient (RCR) | payer MEDICARE, SELFPAY ==
[2020-04-09 12:34] VITALS: BMI 30.8
[2020-04-09 12:45] VITALS: BMI 30.8
--- NOTE | 2020-05-09 08:53 | CR.ITP_ITS ---
Exercise - 30-day Assessment - Visit Date of Eval: 05/09/20 Session #:: 05/08/2020: Patient exposed to a positive COVID-19 person and being tested. Mandatory 14-day quarantine before she can return to cardiac rehab. - Physician Prescribed Exercise Modalities: Treadmill, Airdyne, NuStep Frequency: 3x/week for 12 weeks [36 sessions] Intensity: 60-80% of age predicted maximum heart rate reserve Current METSs:: 4.5 increase from 3.5 Target Heart Rate:: 100-131 Current RPE:: 11-13 Maximum Excercise HR:: 86 Resting Blood Pressure: 108/68 Maximum Exercise Blood Pressure: 124/78 EKG Type: NSR to sinus tachycardia with occas. multi-focal PVCs. Current Physical Activity or Exercising minutes: walks daily. - Outcomes & Goals Goals:: Verbalizes understanding of THR, RPE & goal METS by session 6, Documents in home exercise log/reports 30 min aerobic 5 day/wk by DC, Demonstrates accurate pulse taking by DC - Intervention & Plan Exercise Program Goals: Instruct on personal THR & RPE, Instruct on MET level & personal MET goal, Show patient to take own pulse /validate performance until accurate, Instruct on home exercise - 30-day Reassessments 30 day Reassessments:: Progressing - Physical Activity Home Exercise Physical Activity - Home Exercise: Safe Exercise, Warm-up, Self-monitoring, Cool-Down, Home Exercise > 30 min Daily, Sitting Time <3 hours/daily - Outcomes & Goals Outcomes/Goals: Demonstrates correct Warm-up/exercise Cool-Down (S3) if = 2.5 METs, Verbalizes symptoms of exercise intolerance by Session 3 (S3), Demonstrate safe equipment use (S3) & follows exercise prescrition (6) - Intervention & Plan Plan/Intervention: Instruct warm-up & cool-down if exercising at > 2 METs, Instruct on symptoms of exercise intolerance & actions to take, Instruct & monitor on saf, Assess intial functional capacity & safety risk - 30-day Reassessments 30 day Reassessments:: Progressing Nutrition - 30-Day Assessment - Program Goals Nutrition Program Goals: LDL <100 optimal. 100 - 129 Near optimal. 130 - 159 Borderline High. 160 - 189 High. Total Cholesterol <200 desirable. 200 - 239 Borderline High. >/= 240 High. HDL < 40 Low >/=60 High. Triglycerides <150 desirable. <199 optimal. VlDL 5 - 40. HgbA1C <7%. BMI <25 Patient has diagnosis of Hyperlipidemia (ICD E78)?: Yes - Visit Date of Assessment:: 05/09/20 Session #:: 11 - - Cholesterol/Lipids Determine presence & major risk factors that modify LDL goal: Hypertension or hypertensive medication, Family history of premature CHD in Male < 55 years: female <65 yearsFa, Age men > 45 years; women >/= 55 years Outcomes/Goals: Pt IDs own risk factors & lifestyle modifications by Session 10, Verbalizes symptoms of angina & response by session 3., Pt independently manages Intervention/Plan: Instruct on personal lipid levels & lipid goals/NCEP guidelines, Instruct on cholesterol Referral to dietitian:: No - Patient declined services 30-day Reassessments:: Progressing - Diabetes (Other Core Measures) Diabetes Type: Not Applicable - Weight Mgt (Other Care) Not Applicable: Yes Height: 5 ft 1 in Weight:: 165 lb 8 oz BMI: 31.2 Diagnosis Overweight/Obesity BMI> 30% ICD-10 E66: Yes Diagnosis High BMI/Morbid Obesity BMI> 35% ICD-10 Z68: No Outcomes/Goals: Pt sets, maintains & shows weight loss goal & trend during rehab Intervention/Plan: Instruct on ideal BMI & set weight loss goal w/patient, Assist pt to ID & incorporate diet changes for weight loss by S9, Encourage goal of using 250-300dcal per session for weight loss 30 day Reassessments:: Progressing - Healthy Eating Habits Will attend diet classes:: Yes Outcomes/Goals:: Consume diet rich in vegs,fruits,whole grain/high fiber,fish,lean meat, Limit sat/trans fats,cholesterol & added salts & sugars Intervention/Plan:: Assess current eating habits 30-day Reassessments:: Progressing Medical- 30-Day Assessment - Visit Date of Eval: 05/09/20 Session #:: 11 - Medication Compliance Preventative Medication(s):: Aspirin, Clopidogrel/P2Y12 inhibit, Statin/lipid, Beta kelin H/O mental health issues: depression, anxiety, or addiction?: Yes Doesn?t believe in the benefits of treatment?: No Believes medications are unnecessary or harmful?: No Has a concern about medication side effects?: No Expresses concern over the cost of medications?: No Outcomes/Goals: Verbalizes medications,desired effect & common side effects @ DC, Pt self-reports following medication regimen, Keeps card in wallet w/medications listed by DC Interventions/plans: Instruct on medication effects & side effects, Review medication list w/patient every two weeks, Instruct importance of taking meds as ordered & assist problem solving 30-day Reassessments:: Progressing - Tobacco Use Tobacco Use: Non-smoker - Hypertension Hypertension Diagnosis:: Hypertension ICD-10 I10 Resting Blood Pressure:: 108/68 [place] [employer] Hypertension Guidelines: [place] [employer] Hypertension Guidelines. Normal BP Less than 120/80. Elevated BP 120/80. Hypertension Stage 1: BP 130-139/80-89. Hypertesnion Stage 2: BP 140 or higher/90 or higher. Hypertension Crisis: BP higher than 180/120 Peak Exercise Blood Pressure:: 124/78 Outcomes/Goals: Able to verbalize/achieve optimal blood pressure <130/80, Incorporates diet changes & exercise for blood pressure control by DC Interventions/plan: Instruct on optimal blood pressure, hypertension & medications, Instruct on effects of sodium, alcohol, stress, exercise &hypertension 30 day Reassessments:: Progressing - Tobacco Cessation Referral Smoking Cessation Referral:: No Individual Education/Counseling:: No Education Schedule Given:: Yes Psychosocial - 30-Day Assess - VIsit Date of Eval: 05/09/20 Session #:: 11 Not Applicable: No History of previous Mental disease:: Yes History of Emotional Disorders: Anxious, Depression Self-reported stressors: Family - recently lost roommate/long time friend - Target Goals Target Goals: Assess presence or absence of depression. Using a valid screening tool, maximizes coping skills. Positive support system - Psychosocial Test Tool Used:: Catrachita Inman QOL Cardiac, PHQ-9 Questionnaire phq-9 Severity: Severity. 1-4 Minimal Depression. 5-9 Mild Depression. 10-14 Moderate Depression. 15-19 Moderately Sever Depression. 20-27 Severe Depression. Rule: - Referral to Behavioral Health PS - Interventions: Yes Attend Stress Management Classes, No Referral to Behavioral Health if PHQ-9 score >9:, No Referral to [facility], No Referral to Physician if PHQ-9 if score is 5-9: - Outcomes/Goals: See list Psychosocial Outcomes/Goals:: ID's personal stressors & 2 strategies to manage stress by discharge - Intervention/Plan: See List Interventions/Plan:: Assess stressors,coping strategies & signs of derpression on admission, Instruct/assist pt to develop coping & personal stress Mgt strategies, Instruct patient to recognize signs & symptoms of depression, Instruct patient to recog - 30-day Reassessments: 30 day Reassessments:: Progressing Patient Health Questionnaire 30-Day Re-eval Assessment 1. Little interest or pleasure in doing things: Not at all 2. Feeling down, depressed, or hopeless: Not at all 3. Trouble falling or staying asleep, or sleeping too much: Not at all 4. Feeling tired or having little energy: Not at all 5. Poor appetite or overeating: Not at all 6. Feeling bad about yourself -- or that you are a failure or have let yourself or your family down: Not at all 7. Trouble concentrating on things, such as reading the newspaper or watching television: Not at all 8. Moving or speaking so slowly that other people could have noticed. Or the opposite - being so fidgety or restless that you have been moving around a lot more than usual: Not at all 9. Thoughts that you would be better off , or of hurting yourself in some way: Not at all How difficult have these problems made it for you to do your work, take care of things at home, or get along with other people?: Not difficult at all - My nathaniel in God sustains me Total Score: 0 Self-Efficacy 30-Day Re-eval Assessment We would like to know how confident you are in doing certain activities. Please select your confidence level for:: Select your confidence level for the following using the scale 1-10 where 1 is not at all confident and 10 is totally confident. Your score is the average of all 6 responses. Fatigue: How confident are you that you can keep the fatigue caused by your disease from interfering with the things you want to do? Select Number: 10 Physical Discomfort or Pain: How confident are you that you can keep the physical discomfort or pain of your disease from interfering with the things you want to do? Select Number: 10 Emotional Distress: How confident are you that you can keep the emotional distress caused by your disease from interfering with the things you want to do? Select Number: 10 Other Symptoms or Health Problems: How confident are you that you can keep other symptoms or health problems from interfering with the things you want to do? Select Number: 10 Different Tasks and Activities: How confident are you that you can do the different tasks and activities needed to manage your health condition so as to reduce your need to see a doctor? Select Number: 10 Medication: How confident are you that you can do things other than just taking medication to reduce how much your illness affects your everyday life? Select Number: 10 Total Score:: 10
[2020-05-09 09:01] VITALS: BP 108/68; BP 124/78; BMI 31.2
== END 2020-05-27 23:59 ==
LOC: CR 09:15
PROVIDERS: PCP Family Medicine; Referring Provider Internal Medicine Cardiovascular Disease; Visit Provider Internal Medicine Cardiovascular Disease
DX: I25.119 Atherosclerotic heart disease of native coronary artery with unspecified angina pectoris (principal); Z95.5 Presence of coronary angioplasty implant and graft; Z95.1 Presence of aortocoronary bypass graft; I50.32 Chronic diastolic (congestive) heart failure; I11.0 Hypertensive heart disease with heart failure; E78.5 Hyperlipidemia, unspecified
CPT/HCPCS: 93798

== ENCOUNTER → 2020-05-27 20:02 | Outpatient (CLI) | payer MEDICARE, SELFPAY ==
[2020-05-01 11:06] VITALS: BMI 31.4
[2020-05-09 09:01] VITALS: BMI 31.2
== END ==
PROVIDERS: PCP Family Medicine; Referring Provider Family Medicine; Visit Provider Family Medicine
DX: G47.30 Sleep apnea, unspecified (principal)
CPT/HCPCS: 95810

== ENCOUNTER → 2020-05-30 09:24 | Outpatient (CLI) | payer MEDICARE, SELFPAY ==
[2019-11-28 09:13] VITALS: BMI 31.5
[2020-05-01 11:06] VITALS: BMI 31.4
[2020-05-09 09:01] VITALS: BMI 31.2
[2020-05-30 12:59] LABS: T4 Free Direct 0.96 ng/dL (0.76-1.46)
== END ==
PROVIDERS: PCP Family Medicine; Visit Provider Family Medicine
DX: E03.9 Hypothyroidism, unspecified (principal)
CPT/HCPCS: 36415; 84439; 84443; 84481

== ENCOUNTER → 2020-06-10 20:00 | Outpatient (CLI) | payer MEDICARE, SELFPAY ==
[2020-05-01 11:06] VITALS: BMI 31.4
[2020-05-09 09:01] VITALS: BMI 31.2
== END ==
PROVIDERS: PCP Family Medicine; Referring Provider Family Medicine; Visit Provider Family Medicine
DX: G47.30 Sleep apnea, unspecified (principal)
CPT/HCPCS: 95811

== ENCOUNTER → 2020-06-19 10:08 | Outpatient (CLI) | payer MEDICARE, SELFPAY ==
[2020-05-01 11:06] VITALS: BMI 31.4
[2020-06-10 10:13] VITALS: BMI 31.4
== END ==
PROVIDERS: PCP Family Medicine; Visit Provider Family Medicine
DX: R69 Illness, unspecified (principal)

== ENCOUNTER 2020-06-26 09:15 | Outpatient (RCR) | payer MEDICARE, SELFPAY ==
[2020-05-01 11:06] VITALS: BMI 31.4
[2020-05-09 09:01] VITALS: BMI 31.2
[2020-05-28 00:35] VITALS: BP 108/68; BP 124/78
--- NOTE | 2020-06-10 09:59 | CR.ITP_ITS ---
Diagnosis - General Information Admitting Diagnosis: PCI w/coronary stent placement Personal Learning Style:: Audio/Visual, Written Barriers to Learning: No Barriers Stage of change r/t lifestyle modifications:: Action Gave educational material for:: Treating Heart Disease, Emotions & Heart Disease, Stress Management & Relaxation, Sleep Disorders & Heart Disease, How The Heart Works, What it means to have Heart Disease, How Coronary Artery Disease is Diagnosed, Heart Procedures, What Heart Medications Do, Risk Factors & Modifications, Living an Active Life, Nutrition - Education/Goals Cardiac Rehabilitation Goals: 1. Maintain the individual as the primary focus of care. 2. To improve the patient's quality of life. 3. Identification of cardiac risk factors and provide cardiac risk factor management. 4. Enhance the psychosocial status of the patient. 5. Reconditioning enough to allow the patient to resume customary activities. 6. Control symptoms of cardiac disease Personal Goals: 60-day Re-assessment: Improve management of stress and emotions - 4, Improve energy level - 4, Participate in home exercise program - 4 Scale for measuring improvement of personal goals: Enter appropriate number in Comments. 2 = Unchanged. 3 = Slightly Better. 4 = Moderate Improvement. 5 = Met my Goal - Diagnosis & Disease Process 30 day Reassessments:: Progressing 30 day Reassessments:: Progressing - Safety Referral to Physical Therapy: No Referral to [facility] Case Management: No Fall Risk Assessed:: Yes Assistive Devices:: None Exercise - 60-day Assessment - Visit Date of Eval: 06/10/20 Session #:: 23 - Physician Prescribed Exercise Modalities: Treadmill, Airdyne, NuStep Frequency: 3x/week for 12 weeks [36 sessions] Intensity: 60-80% of age predicted maximum heart rate reserve Current METSs:: 6.0 increased from 5.0 Current RPE:: 11-13 Maximum Excercise HR:: 93 Resting Blood Pressure: 120/72 Maximum Exercise Blood Pressure: 142/70 EKG Type: NSR to sinus tachycardia with occasional PVCs and PACs. Current Physical Activity or Exercising minutes: daily walking - Outcomes & Goals Goals:: Verbalizes understanding of THR, RPE & goal METS by session 6, Documents in home exercise log/reports 30 min aerobic 5 day/wk by DC, Demonstrates accurate pulse taking by DC - Intervention & Plan Exercise Program Goals: Instruct on personal THR & RPE, Instruct on MET level & personal MET goal, Show patient to take own pulse /validate performance until accurate, Instruct on home exercise - 30-day Reassessments 30 day Reassessments:: Progressing - Physical Activity Home Exercise Physical Activity - Home Exercise: Safe Exercise, Warm-up, Self-monitoring, Cool-Down, Home Exercise > 30 min Daily, Sitting Time <3 hours/daily - Outcomes & Goals Outcomes/Goals: Demonstrates correct Warm-up/exercise Cool-Down (S3) if = 2.5 METs, Verbalizes symptoms of exercise intolerance by Session 3 (S3), Demonstrate safe equipment use (S3) & follows exercise prescrition (6), Other: See below - Intervention & Plan Plan/Intervention: Instruct warm-up & cool-down if exercising at > 2 METs, Instruct on symptoms of exercise intolerance & actions to take, Instruct & monitor on saf, Assess intial functional capacity & safety risk - 30-day Reassessments 30 day Reassessments:: Progressing Nutrition - 60-Day Assessment - Program Goals Nutrition Program Goals: LDL <100 optimal. 100 - 129 Near optimal. 130 - 159 Borderline High. 160 - 189 High. Total Cholesterol <200 desirable. 200 - 239 Borderline High. >/= 240 High. HDL < 40 Low >/=60 High. Triglycerides <150 desirable. <199 optimal. VlDL 5 - 40. HgbA1C <7%. BMI <25 Patient has diagnosis of Hyperlipidemia (ICD E78)?: Yes - Visit Date of Assessment:: 06/10/20 Session #:: 23 - Cholesterol/Lipids Determine presence & major risk factors that modify LDL goal: Hypertension or hypertensive medication, Family history of premature CHD in Male < 55 years: female <65 yearsFa, Age men > 45 years; women >/= 55 years Outcomes/Goals: Pt IDs own risk factors & lifestyle modifications by Session 10, Verbalizes symptoms of angina & response by session 3., Pt independently manages Intervention/Plan: Instruct on personal lipid levels & lipid goals/NCEP guidelines, Instruct on cholesterol Referral to dietitian:: No - patient declined services 30-day Reassessments:: Progressing - Diabetes (Other Core Measures) Diabetes Type: Not Applicable Insulin dependent injection/pump?: No Non-Insulin Dependent?: No Do you monitor your blood sugar at home?: No Referral to Diabetic Clinic:: No - Weight Mgt (Other Care) Not Applicable: Yes Height: 5 ft 1 in Weight:: 166 lb 8 oz BMI: 31.4 Diagnosis Overweight/Obesity BMI> 30% ICD-10 E66: Yes Diagnosis High BMI/Morbid Obesity BMI> 35% ICD-10 Z68: No Outcomes/Goals: Pt sets, maintains & shows weight loss goal & trend during rehab Intervention/Plan: Instruct on ideal BMI & set weight loss goal w/patient, Assist pt to ID & incorporate diet changes for weight loss by S9, Encourage goal of using 250-300dcal per session for weight loss 30 day Reassessments:: Progressing - Healthy Eating Habits Will attend diet classes:: Yes Outcomes/Goals:: Consume diet rich in vegs,fruits,whole grain/high fiber, fish,lean meat, Limit sat/trans fats,cholesterol & added salts & sugars Intervention/Plan:: Assess current eating habits 30-day Reassessments:: Progressing Medical- 60-Day Assessment - Visit Date of Eval: 06/10/20 Session #:: 23 - Medication Compliance Preventative Medication(s):: Aspirin, Clopidogrel/P2Y12 inhibit, Statin/lipid, Beta kelin H/O mental health issues: depression, anxiety, or addiction?: Yes Doesn?t believe in the benefits of treatment?: No Believes medications are unnecessary or harmful?: No Has a concern about medication side effects?: No Expresses concern over the cost of medications?: No Outcomes/Goals: Verbalizes medications,desired effect & common side effects @ DC, Pt self-reports following medication regimen, Keeps card in wallet w/medications listed by DC Interventions/plans: Instruct on medication effects & side effects, Review medication list w/patient every two weeks, Instruct importance of taking meds as ordered & assist problem solving 30-day Reassessments:: Progressing - Tobacco Use Tobacco Use: Non-smoker - Hypertension Hypertension Diagnosis:: Hypertension ICD-10 I10 Resting Blood Pressure:: 120/72 [place] [employer] Hypertension Guidelines: [place] [employer] Hypertension Guidelines. Normal BP Less than 120/80. Elevated BP 120/80. Hypertension Stage 1: BP 130-139/80-89. Hypertesnion Stage 2: BP 140 or higher/90 or higher. Hypertension Crisis: BP higher than 180/120 Peak Exercise Blood Pressure:: 142/70 Outcomes/Goals: Able to verbalize/achieve optimal blood pressure <130/80, Incorporates diet changes & exercise for blood pressure control by DC Interventions/plan: Instruct on optimal blood pressure, hypertension & medications, Instruct on effects of sodium, alcohol, stress, exercise &hypertension 30 day Reassessments:: Progressing - Tobacco Cessation Referral Smoking Cessation Referral:: No Individual Education/Counseling:: No Education Schedule Given:: Yes Psychosocial - 60-Day Assess - VIsit Date of Eval: 06/10/20 Session #:: 23 Not Applicable: No History of previous Mental disease:: Yes History of Emotional Disorders: Anxious, Depression Self-reported stressors: Other - Target Goals Target Goals: Assess presence or absence of depression. Using a valid screening tool, maximizes coping skills. Positive support system - Psychosocial Test Tool Used:: PHQ-9 Questionnaire phq-9 Severity: Severity. 1-4 Minimal Depression. 5-9 Mild Depression. 10-14 Moderate Depression. 15-19 Moderately Sever Depression. 20-27 Severe Depression. Rule: - Referral to Behavioral Health PS - Interventions: Yes Attend Stress Management Classes, No Referral to Behavioral Health if PHQ-9 score >9:, No Referral to [facility], No Referral to Physician if PHQ-9 if score is 5-9: - Outcomes/Goals: See list Psychosocial Outcomes/Goals:: ID's personal stressors & 2 strategies to manage stress by discharge - Intervention/Plan: See List Interventions/Plan:: Assess stressors,coping strategies & signs of derpression on admission, Instruct/assist pt to develop coping & personal stress Mgt strategies, Instruct patient to recognize signs & symptoms of depression, Instruct patient to recog - 30-day Reassessments: 30 day Reassessments:: Progressing Patient Health Questionnaire 60-Day Re-eval Assessment 1. Little interest or pleasure in doing things: Not at all 2. Feeling down, depressed, or hopeless: Not at all 3. Trouble falling or staying asleep, or sleeping too much: Not at all 4. Feeling tired or having little energy: Not at all 5. Poor appetite or overeating: Not at all 6. Feeling bad about yourself -- or that you are a failure or have let yourself or your family down: Not at all 7. Trouble concentrating on things, such as reading the newspaper or watching television: Not at all 8. Moving or speaking so slowly that other people could have noticed. Or the opposite - being so fidgety or restless that you have been moving around a lot more than usual: Not at all 9. Thoughts that you would be better off , or of hurting yourself in some way: Not at all How difficult have these problems made it for you to do your work, take care of things at home, or get along with other people?: Not difficult at all Total Score: 0 Self-Efficacy We would like to know how confident you are in doing certain activities. Please select your confidence level for:: Select your confidence level for the following using the scale 1-10 where 1 is not at all confident and 10 is totally confident. Your score is the average of all 6 responses. Fatigue: How confident are you that you can keep the fatigue caused by your disease from interfering with the things you want to do? Physical Discomfort or Pain: How confident are you that you can keep the physical discomfort or pain of your disease from interfering with the things you want to do? Emotional Distress: How confident are you that you can keep the emotional distress caused by your disease from interfering with the things you want to do? Other Symptoms or Health Problems: How confident are you that you can keep other symptoms or health problems from interfering with the things you want to do? Different Tasks and Activities: How confident are you that you can do the different tasks and activities needed to manage your health condition so as to reduce your need to see a doctor? Medication: How confident are you that you can do things other than just taking medication to reduce how much your illness affects your everyday life? 60-Day Re-eval Assessment We would like to know how confident you are in doing certain activities. Please select your confidence level for:: Select your confidence level for the following using the scale 1-10 where 1 is not at all confident and 10 is totally confident. Your score is the average of all 6 responses. Fatigue: How confident are you that you can keep the fatigue caused by your disease from interfering with the things you want to do? Select Number: 10 Physical Discomfort or Pain: How confident are you that you can keep the physical discomfort or pain of your disease from interfering with the things you want to do? Select Number: 10 Emotional Distress: How confident are you that you can keep the emotional distress caused by your disease from interfering with the things you want to do? Select Number: 10 Other Symptoms or Health Problems: How confident are you that you can keep other symptoms or health problems from interfering with the things you want to do? Select Number: 10 Different Tasks and Activities: How confident are you that you can do the different tasks and activities needed to manage your health condition so as to reduce your need to see a doctor? Select Number: 10 Medication: How confident are you that you can do things other than just taking medication to reduce how much your illness affects your everyday life? Select Number: 10 Total Score:: 10
[2020-06-10 10:13] VITALS: BP 120/72; BP 142/70; BMI 31.4
== END 2020-06-27 23:59 ==
LOC: CR 09:15
PROVIDERS: PCP Family Medicine; Referring Provider Internal Medicine Cardiovascular Disease; Visit Provider Internal Medicine Cardiovascular Disease
DX: I25.119 Atherosclerotic heart disease of native coronary artery with unspecified angina pectoris (principal); I11.0 Hypertensive heart disease with heart failure; I50.32 Chronic diastolic (congestive) heart failure; E78.5 Hyperlipidemia, unspecified; Z95.1 Presence of aortocoronary bypass graft; Z95.5 Presence of coronary angioplasty implant and graft
CPT/HCPCS: 93798

== ENCOUNTER 2020-07-15 09:15 | Outpatient (RCR) | payer MEDICARE, SELFPAY ==
[2020-05-01 11:06] VITALS: BMI 31.4
[2020-06-10 10:13] VITALS: BMI 31.4
[2020-06-28 00:30] VITALS: BP 120/72; BP 142/70
--- NOTE | 2020-07-10 08:59 | PCM.CR.ITP ---
Exercise - 90-day Assessment - Visit Date of Eval: 07/10/20 Session #:: 34 - 100% compliance to date - Physician Prescribed Exercise Modalities: Treadmill, Airdyne, NuStep Frequency: 3x/week for 12 weeks [36 sessions] Intensity: 60-80% of age predicted maximum heart rate reserve Current METSs:: 6.0 Target Heart Rate:: 100-131 Current RPE:: 12 Resting Blood Pressure: 124/60 Maximum Exercise Blood Pressure: 124/64 EKG Type: Sinus bradycardia to sinus tachy with occas. PVCs. - Outcomes & Goals Goals:: Verbalizes understanding of THR, RPE & goal METS by session 6, Documents in home exercise log/reports 30 min aerobic 5 day/wk by DC, Demonstrates accurate pulse taking by DC - Intervention & Plan Exercise Program Goals: Instruct on personal THR & RPE, Instruct on MET level & personal MET goal, Show patient to take own pulse /validate performance until accurate, Instruct on home exercise - 30-day Reassessments 30 day Reassessments:: Progressing - Physical Activity Home Exercise Physical Activity - Home Exercise: Safe Exercise, Warm-up, Self-monitoring, Cool-Down, Home Exercise > 30 min Daily, Sitting Time <3 hours/daily - Outcomes & Goals Outcomes/Goals: Demonstrates correct Warm-up/exercise Cool-Down (S3) if = 2.5 METs, Verbalizes symptoms of exercise intolerance by Session 3 (S3), Demonstrate safe equipment use (S3) & follows exercise prescrition (6) - Intervention & Plan Plan/Intervention: Instruct warm-up & cool-down if exercising at > 2 METs, Instruct on symptoms of exercise intolerance & actions to take, Instruct & monitor on saf, Assess intial functional capacity & safety risk - 30-day Reassessments 30 day Reassessments:: Met Nutrition - 90-Day Assessment - Program Goals Nutrition Program Goals: LDL <100 optimal. 100 - 129 Near optimal. 130 - 159 Borderline High. 160 - 189 High. Total Cholesterol <200 desirable. 200 - 239 Borderline High. >/= 240 High. HDL < 40 Low >/=60 High. Triglycerides <150 desirable. <199 optimal. VlDL 5 - 40. HgbA1C <7%. BMI <25 Patient has diagnosis of Hyperlipidemia (ICD E78)?: Yes - Visit Date of Assessment:: 07/10/20 Session #:: 33 - Cholesterol/Lipids Determine presence & major risk factors that modify LDL goal: Hypertension or hypertensive medication, Low HDL cholesterol <40 mg/dL*, Family history of premature CHD in Male < 55 years: female <65 yearsFa, Age men > 45 years; women >/= 55 years Outcomes/Goals: Pt IDs own risk factors & lifestyle modifications by Session 10, Verbalizes symptoms of angina & response by session 3., Pt independently manages Intervention/Plan: Instruct on personal lipid levels & lipid goals/NCEP guidelines, Instruct on cholesterol Referral to dietitian:: No 30-day Reassessments:: Progressing - Diabetes (Other Core Measures) Diabetes Type: Not Applicable - Weight Mgt (Other Care) Not Applicable: Yes Height: 5 ft 1 in Weight:: 166 lb BMI: 31.4 Diagnosis Overweight/Obesity BMI> 30% ICD-10 E66: Yes Diagnosis High BMI/Morbid Obesity BMI> 35% ICD-10 Z68: No Outcomes/Goals: Pt sets, maintains & shows weight loss goal & trend during rehab Intervention/Plan: Instruct on ideal BMI & set weight loss goal w/patient, Assist pt to ID & incorporate diet changes for weight loss by S9, Encourage goal of using 250-300dcal per session for weight loss 30 day Reassessments:: Progressing - Healthy Eating Habits Will attend diet classes:: Yes Outcomes/Goals:: Consume diet rich in vegs,fruits,whole grain/high fiber,fish,lean meat, Limit sat/trans fats,cholesterol & added salts & sugars Intervention/Plan:: Assess current eating habits 30-day Reassessments:: Progressing Medical- 90-Day Assessment - Visit Date of Eval: 07/10/20 Session #:: 31 - Medication Compliance Preventative Medication(s):: Aspirin, Clopidogrel/P2Y12 inhibit, Statin/lipid, Beta kelin H/O mental health issues: depression, anxiety, or addiction?: No Doesn?t believe in the benefits of treatment?: No Believes medications are unnecessary or harmful?: No Has a concern about medication side effects?: No Expresses concern over the cost of medications?: No Outcomes/Goals: Verbalizes medications,desired effect & common side effects @ DC, Pt self-reports following medication regimen, Keeps card in wallet w/medications listed by DC Interventions/plans: Instruct on medication effects & side effects, Review medication list w/patient every two weeks, Instruct importance of taking meds as ordered & assist problem solving 30-day Reassessments:: Progressing - Tobacco Use Tobacco Use: Non-smoker - Hypertension Hypertension Diagnosis:: Hypertension ICD-10 I10 Resting Blood Pressure:: 124/60 [place] [employer] Hypertension Guidelines: [place] [employer] Hypertension Guidelines. Normal BP Less than 120/80. Elevated BP 120/80. Hypertension Stage 1: BP 130-139/80-89. Hypertesnion Stage 2: BP 140 or higher/90 or higher. Hypertension Crisis: BP higher than 180/120 Peak Exercise Blood Pressure:: 124/60 Outcomes/Goals: Able to verbalize/achieve optimal blood pressure <130/80, Incorporates diet changes & exercise for blood pressure control by DC Interventions/plan: Instruct on optimal blood pressure, hypertension & medications, Instruct on effects of sodium, alcohol, stress, exercise &hypertension 30 day Reassessments:: Progressing - Tobacco Cessation Referral Smoking Cessation Referral:: No Individual Education/Counseling:: No Education Schedule Given:: Yes Psychosocial - 90-Day Assess - VIsit Date of Eval: 07/10/20 Session #:: 31 Not Applicable: No History of previous Mental disease:: No History of Emotional Disorders: Depression - Target Goals Target Goals: Assess presence or absence of depression. Using a valid screening tool, maximizes coping skills. Positive support system - Psychosocial Test Tool Used:: PHQ-9 Questionnaire phq-9 Severity: Severity. 1-4 Minimal Depression. 5-9 Mild Depression. 10-14 Moderate Depression. 15-19 Moderately Sever Depression. 20-27 Severe Depression. Rule: - Referral to Behavioral Health PS - Interventions: Yes Attend Stress Management Classes, No Referral to Behavioral Health if PHQ-9 score >9:, No Referral to [facility], No Referral to Physician if PHQ-9 if score is 5-9: - Outcomes/Goals: See list Psychosocial Outcomes/Goals:: ID's personal stressors & 2 strategies to manage stress by discharge - Intervention/Plan: See List Interventions/Plan:: Assess stressors,coping strategies & signs of derpression on admission, Instruct/assist pt to develop coping & personal stress Mgt strategies, Instruct patient to recognize signs & symptoms of depression, Instruct patient to recog - 30-day Reassessments: 30 day Reassessments:: Progressing Patient Health Questionnaire 90-Day Re-eval Assessment 1. Little interest or pleasure in doing things: Not at all 2. Feeling down, depressed, or hopeless: Not at all 3. Trouble falling or staying asleep, or sleeping too much: Not at all 4. Feeling tired or having little energy: Not at all 5. Poor appetite or overeating: Not at all 6. Feeling bad about yourself -- or that you are a failure or have let yourself or your family down: Not at all 7. Trouble concentrating on things, such as reading the newspaper or watching television: Not at all 8. Moving or speaking so slowly that other people could have noticed. Or the opposite - being so fidgety or restless that you have been moving around a lot more than usual: Not at all 9. Thoughts that you would be better off , or of hurting yourself in some way: Not at all How difficult have these problems made it for you to do your work, take care of things at home, or get along with other people?: Not difficult at all Total Score: 0 Self-Efficacy 90-Day Re-eval Assessment We would like to know how confident you are in doing certain activities. Please select your confidence level for:: Select your confidence level for the following using the scale 1-10 where 1 is not at all confident and 10 is totally confident. Your score is the average of all 6 responses. Fatigue: How confident are you that you can keep the fatigue caused by your disease from interfering with the things you want to do? Select Number: 10 Physical Discomfort or Pain: How confident are you that you can keep the physical discomfort or pain of your disease from interfering with the things you want to do? Select Number: 10 Emotional Distress: How confident are you that you can keep the emotional distress caused by your disease from interfering with the things you want to do? Select Number: 10 Other Symptoms or Health Problems: How confident are you that you can keep other symptoms or health problems from interfering with the things you want to do? Select Number: 10 Different Tasks and Activities: How confident are you that you can do the different tasks and activities needed to manage your health condition so as to reduce your need to see a doctor? Select Number: 10 Medication: How confident are you that you can do things other than just taking medication to reduce how much your illness affects your everyday life? Select Number: 10 Total Score:: 10
[2020-07-10 09:15] VITALS: BP 124/60; BMI 31.4
== END 2020-07-28 23:59 ==
LOC: CR 09:15
PROVIDERS: PCP Family Medicine; Referring Provider Internal Medicine Cardiovascular Disease; Visit Provider Internal Medicine Cardiovascular Disease
DX: I25.119 Atherosclerotic heart disease of native coronary artery with unspecified angina pectoris (principal); I11.0 Hypertensive heart disease with heart failure; I50.32 Chronic diastolic (congestive) heart failure; E78.5 Hyperlipidemia, unspecified; Z95.1 Presence of aortocoronary bypass graft; Z95.5 Presence of coronary angioplasty implant and graft
CPT/HCPCS: 93798

== ENCOUNTER → 2020-08-14 13:54 | Outpatient (CLI) | payer MEDICARE, SELFPAY ==
[2020-05-01 11:06] VITALS: BMI 31.4
[2020-07-10 09:15] VITALS: BMI 31.4
[2020-08-14 14:51] LABS: Free T3 2.3 pg/mL (2.18-3.98); T4 Free Direct 1.23 ng/dL (0.76-1.46); Thyroid Stim Hormone (TSH) 1.25 uIU/mL (0.358-3.74)
== END ==
PROVIDERS: PCP Family Medicine; Referring Provider Family Medicine; Visit Provider Family Medicine
DX: E03.9 Hypothyroidism, unspecified (principal)
CPT/HCPCS: 36415; 84439; 84443; 84481

== ENCOUNTER 2020-08-21 11:28 | Outpatient (RCR) | payer MEDICARE, SELFPAY ==
[2020-05-01 11:06] VITALS: BMI 31.4
[2020-07-10 09:15] VITALS: BMI 31.4
== END 2020-08-21 23:59 ==
LOC: IMMUN 11:28
PROVIDERS: PCP Family Medicine; Referring Provider Family Medicine; Visit Provider Family Medicine
DX: Z23 Encounter for immunization (principal)
CPT/HCPCS: 0011A; 0012A; 91301

== ENCOUNTER → 2020-09-11 14:18 | Outpatient (CLI) | payer MEDICARE, SELFPAY ==
[2020-05-01 11:06] VITALS: BMI 31.4
[2020-07-10 09:15] VITALS: BMI 31.4
== END ==
PROVIDERS: PCP Family Medicine; Referring Provider Family Medicine; Visit Provider Family Medicine
DX: Z20.828 Contact with and (suspected) exposure to other viral communicable diseases (principal)
CPT/HCPCS: 87635; C9803; U0002

== ENCOUNTER → 2020-11-21 10:49 | Outpatient (CLI) | payer MEDICARE, SELFPAY ==
[2020-07-10 09:15] VITALS: BMI 31.4
[2020-11-21 08:49] VITALS: BMI 31.7
[2020-11-21 11:51] LABS: AST(SGOT) 25 U/L (15-37); Alanine Aminotransfer ALT/SGPT 21 U/L (13-56); Albumin, Serum 4.2 g/dL (3.2-5.0); Alkaline Phosphatase 65 U/L (45-117); Bilirubin, Direct 0.18 mg/dL (0.00-0.30); Cholesterol 224 mg/dL (200); Globulin 3.6 g/dL (2.2-4.2); High Density Lipoprotein 66 mg/dL; Protein, Total 7.8 g/dL (6.4-8.2); Triglycerides 164 mg/dL; Very Low Density Lipoprotein 33 mg/dL (5-40)
== END ==
PROVIDERS: PCP Family Medicine; Referring Provider Internal Medicine Cardiovascular Disease; Visit Provider Internal Medicine Cardiovascular Disease
DX: E78.00 Pure hypercholesterolemia, unspecified (principal)
CPT/HCPCS: 36415; 80061; 80076

== ENCOUNTER → 2020-12-25 08:40 | Outpatient (CLI) | payer MEDICARE, SELFPAY ==
[2020-07-10 09:15] VITALS: BMI 31.4
[2020-11-21 08:49] VITALS: BMI 31.7
--- NOTE | 2020-12-25 08:48 | US_ITS ---
STUDY: ULTRASOUND BREAST - RIGHT REASON FOR EXAM: Female, 65 years old. Abdominal screening mammogram. TECHNIQUE: Axial and longitudinal images of the RIGHT breast were performed with a high resolution ultrasound transducer. # OF IMAGES: 22 COMPARISON: Comparison is made with prior mammogram done earlier in the day. FINDINGS: RIGHT Breast: The mammographic abnormality corresponds to a 7 mm x 7 mm x 4 mm hypoechoic irregular nodule at the 3 o''clock position of the breast at 7 cm from the nipple. A biopsy is recommended. IMPRESSION: The mammographic and a moderately corresponding to a 7 mm x 7 mm x 4 mm hypoechoic irregular nodule at the 3 o''clock patient with breast at 7 cm from nipple. A biopsy is recommended. ASSESSMENT CATEGORY: BIRADS Category 4: Suspicious - Biopsy Should Be Considered. A letter regarding these results will be sent to the patient by the facility within 30 days. Electronically Signed: Dwight Bautista MD at 12:33 EDT , Service support , STUDY: ULTRASOUND BREAST - LEFT REASON FOR EXAM: Female, 65 years old. Abnormal screening mammogram. TECHNIQUE: Axial and longitudinal images of the LEFT breast were performed with a high resolution ultrasound transducer. # OF IMAGES: 22 COMPARISON: Comparison is made with prior mammogram done earlier today. . FINDINGS: LEFT Breast: There is a 9 mm x 9 mm x 9 mm echogenic nodule at the 9 o''clock position of the breast at 3 cm from nipple. This corresponds to the palpable abnormality and most likely represents a small lipoma. US/Breast Limited Unilateral IMPRESSION: The palpable normality corresponds to 9 mm x 9 mm x 9 mm echogenic nodule at the 9 o''clock position of the breast at 3 cm from nipple. This most likely represents a lipoma. ASSESSMENT CATEGORY: BIRADS Category 2: Benign. A letter regarding these results will be sent to the patient by the facility within 30 days. Electronically Signed: Dwight Bautista MD at 12:35 EDT , Service support ,
--- NOTE | 2020-12-25 08:48 | BI_ITS ---
MAMMOGRAPHY - BILATERAL DIAGNOSTIC REASON FOR EXAM: Female, 65 years old. One-week history of left palpable lump. Bilateral bruising. PERTINENT HISTORY: Non-contributory. TECHNIQUE: Digital bilateral breast james (3D mammographic acquisition) in the CC and MLO projections. 2-D mediolateral oblique (MLO) and craniocaudad (CC) views of both breasts were obtained. CAD: Full Field Digital Mammography with Computer Added Detection was performed. COMPARISON: Comparison is made with prior study dated 05/21/2020 and 05/19/2019. FINDINGS: Breast Composition: The breasts are almost entirely fatty. There are no dominant masses or suspicious calcifications. There is a new 8.8 mm x 8 mm well-defined nodule in the inferior medial aspect of the left breast. Correlation with ultrasound is recommended. With the patient''s history of a palpable mass in the left breast, a targeted ultrasound of the left breast is recommended as well. No other significant abnormalities are identified. BI/DIAG MAMM W/CAD, BILAT IMPRESSION: New 8 mm x 8 point millimeter nodule in the inferior medial aspect of the right breast. Correlation with ultrasound is recommended. ASSESSMENT CATEGORY: BIRADS Category 0: Incomplete. Need additional imaging evaluation. A letter regarding these results will be sent to the patient by the facility within 30 days. Approximately 10% of breast cancers are not detected by mammography. A normal mammogram should not delay biopsy of a clinically suspicious abnormality. Electronically Signed: Dwight Bautista MD at 10:17 EDT , Service support ,
== END ==
PROVIDERS: PCP Family Medicine; Referring Provider Family Medicine; Visit Provider Family Medicine
DX: N63.24 Unspecified lump in the left breast, lower inner quadrant (principal)
CPT/HCPCS: 76642; 77062; 77066; G0279

== ENCOUNTER → 2021-01-31 08:44 | Outpatient (CLI) | payer MEDICARE, SELFPAY ==
[2020-07-10 09:15] VITALS: BMI 31.4
[2020-12-31 13:24] VITALS: BMI 31.7
--- NOTE | 2021-01-31 08:45 | US_ITS ---
STUDY: ULTRASOUND BREAST - RIGHT REASON FOR EXAM: Female, 65 years old. Palpable lump in the right breast. TECHNIQUE: Axial and longitudinal images of the RIGHT breast were performed with a high resolution ultrasound transducer. # OF IMAGES: 29 COMPARISON: Comparison is made with prior mammogram dated 12/25/2020 and prior ultrasound of the right breast dated 12/25/2020. FINDINGS: RIGHT Breast: No sonographic abnormality is seen at this time. This most likely represents resolution of a small hematoma due to prior bruising. US/Breast Limited Unilateral IMPRESSION: No sonographic abnormality seen at this time. ASSESSMENT CATEGORY: BIRADS Category 1: Negative. A letter regarding these results will be sent to the patient by the facility within 30 days. Electronically Signed: Dwight Bautista MD at 12:22 EDT , Service support ,
== END ==
PROVIDERS: PCP Family Medicine; Referring Provider Surgery; Visit Provider Surgery
DX: N63.10 Unspecified lump in the right breast, unspecified quadrant (principal)
CPT/HCPCS: 76642

== ENCOUNTER 2021-05-14 14:00 | Emergency (ER) | payer MEDICARE, SELFPAY ==
[2020-07-10 09:15] VITALS: BMI 31.4
[2021-05-14 14:00] VITALS: BP 137/112; PULSE 58; RESP 18; TEMP 36.6; O2SAT 98; BMI 29.9
[2021-05-14 16:20] VITALS: BP 159/67; PULSE 62; RESP 16; O2SAT 97
--- NOTE | 2021-05-14 16:26 | EX.ED.DYSGE1 ---
HPI History of Present Illness Chief Complaint: General Illness Informant: patient Onset/Context/Timing Onset: Today Narrative Narrative: Patient had her Covid booster 4 days ago. She states last evening she started feeling like her eyes were watery and lymph nodes in front of her ears were slightly swollen. She thought was secondary to seasonal allergies. Today symptoms progressed and she felt that her lymph nodes in her throat were swollen. She tried to swallow some Benadryl but was unable. Patient states her symptoms are improving at this time. She does complain of some generalized itching. [facility] Medical History Actinic keratoses Atherosclerosis of coronary artery of [place] heart with angina pectoris Basal cell carcinoma of neck Bipolar 1 disorder Blurred vision, bilateral Chronic diastolic (congestive) heart failure Contusion of left hand, initial encounter CVA (cerebral vascular accident) Essential (primary) hypertension Fibromyalgia GERD (gastroesophageal reflux disease) Hyperlipidemia Hypothyroidism IBS (irritable bowel syndrome) Myocardial infarct Non-rheumatic tricuspid valve insufficiency Osteoarthritis Post traumatic stress disorder (PTSD) Seizure disorder Slurred speech Subluxation of left thumb TIA (transient ischemic attack) Home Medications buspirone 10 mg PO TID 02/03/14 [History Last Taken 11/02/19 21:00] levothyroxine 50 mcg PO DAILY 02/03/14 [History Last Taken 03/25/20] multivitamin with folic acid 1 tab PO DAILY 02/03/14 [History Last Taken 11/02/19] omega-3 fatty acids 1,500 mg PO DAILY 10/20/15 [History Last Taken 11/02/19] aspirin 81 mg PO DAILY@0800 09/24/16 [History Last Taken 03/25/20] cetirizine 10 mg PO DAILY 11/02/19 [History Last Taken 11/02/19] duloxetine 30 mg capsule,delayed release 60 mg PO DAILY 11/28/19 [History Last Taken Unknown] nitroglycerin 0.4 mg sublingual tablet 0.4 mg SUBLINGUAL Q5-15M PRN #25 tab 11/28/19 [Rx Last Taken Unknown] omeprazole 20 mg capsule,delayed release 40 mg PO BID cap 11/28/19 [History Last Taken 03/25/20] magnesium oxide 400 mg PO DAILY 05/01/20 [History Last Taken Unknown] metoprolol tartrate 50 mg tablet 50 mg PO BID #180 tab 01/01/21 [Rx Last Taken Unknown] spironolactone 25 mg tablet 25 mg PO DAILY #90 tab 01/06/21 [Rx Last Taken Unknown] clopidogrel 75 mg tablet 75 mg PO DAILY #90 tab 01/08/21 [Rx Last Taken Unknown] pravastatin 80 mg tablet 80 mg PO QHS #90 tab 02/05/21 [Rx Last Taken Unknown] amlodipine 10 mg tablet 10 mg PO DAILY #90 tab 03/18/21 [Rx Last Taken Unknown] isosorbide mononitrate 30 mg tablet,extended release 24 hr 30 mg PO BID #180 tab 03/18/21 [Rx Last Taken Unknown] prednisone 40 mg PO DAILY 4 Days #8 tab 05/14/21 [Rx Last Taken Unknown] Allergy/AdvReac Type Severity Reaction Status Date / Time adhesive tape Allergy Rash Verified 05/14/21 15:57 codeine Allergy Itching Verified 05/14/21 15:57 doxazosin Allergy DROPS Verified 05/14/21 15:57 HEART RATE furosemide [From Lasix] Allergy Itching Verified 05/14/21 15:57 latex Allergy Rash Verified 05/14/21 15:57 lisinopril Allergy Angioedema Verified 05/14/21 15:57 oxycodone HCl [From Percocet] Allergy Itching Verified 05/14/21 15:57 tramadol HCl [From Ultram] Allergy Itching Verified 05/14/21 15:57 isosorbide mononitrate AdvReac Intermediate Dizzy, not Uncoded 05/14/21 15:57 feeling well Family History Father CAD (coronary artery disease) Hypertension Mother CAD (coronary artery disease) Hypertension Sister Hypertension Surgical History H/O coronary artery bypass surgery (10/21/07) H/O right coronary artery stent placement (03/25/20) History of left heart catheterization (08/09/17) Social History Smoking Status: Former smoker alcohol intake: former details: Participates in AA substance use type: does not use what type of physical activity do you participate in: walking seatbelt use: always do you feel safe at home: Yes additional social history: disability- retired ROS ROS ED Constitutional Constitutional ED: Denies chills or fever(s) Eyes Eyes: Reports blurry vision; Denies change in vision ENT ENT ED: Reports other Details: Throat tightness ; Denies sore throat Cardiovascular Cardiovascular: Denies chest pain Respiratory/Chest Respiratory/Chest: Denies cough or dyspnea Gastrointestinal Gastrointestinal: Denies abdominal pain, diarrhea, nausea or vomiting Genitourinary Genitourinary ED: Denies dysuria Musculoskeletal Musculoskeletal: Denies back pain Integumentary Denies rash Neurologic Neurologic: Denies headache(s) or weakness Allergic/Immunologic Allergic/Immunologic ED: Denies urticaria EXAM Physical Exam Const Vital Signs: 05/14/21 14:00 05/14/21 15:59 05/14/21 16:20 Temperature 97.8 F Temperature Source Temporal Pulse Rate 58 L 62 Respiratory Rate 18 16 Respiratory Effort Normal Respiratory Pattern Normal Blood Pressure 137/112 H 159/67 H Blood Pressure Mean 120 97 Pulse Ox 98 97 Oxygen Delivery Method Room Air Room Air Positive well nourished and well developed General Appearance ED: well developed HEENT Reports moist mucous membranes HEENT Narrative: Posterior pharynx exam normal Eyes PERRL and EOMs intact bilaterally Neck supple Chest Wall inspection of chest normal and palpation of chest normal Resp normal respiratory effort and clear to auscultation bilaterally Cardio regular rate GI normal to inspection, nondistended, normoactive bowel sounds and non-tender Palpation: soft Extremity normal to inspection Neuro oriented x3 Sensorium / Orientation: alert Psych mental status grossly normal Skin no rashes or lesions noted MDM MDM MDM Narrative Medical decision making narrative: Patient was placed on cardiac nurse specialist. She was given Benadryl, Solu-Medrol, Pepcid. Treatment and Re-Evaluation Comments:: Patient observed for 2 hours. On repeat evaluation she does feel improved. She has Benadryl at home that she will take I will write her for additional days of steroids. Discharge Plan Triage Chief Complaint: General Illness ED Provider: Deedee Severino Dx/Rx/DC Orders Clinical Impression: Allergic reaction Instructions: ED General Allergic Reactions Prescriptions: New prednisone 20 mg tablet 40 mg PO DAILY 4 Days Qty: 8 RF: 0 No Action omeprazole 20 mg capsule,delayed release(DR/EC) 40 mg PO BID RF: 0 nitroglycerin 0.4 mg tablet, sublingual 0.4 mg SUBLINGUAL Q5-15M PRN (Reason: Chest Pain) Qty: 25 RF: 6 magnesium oxide 400 mg magnesium capsule 400 mg PO DAILY RF: 0 buspirone 5 MG tablet 10 mg PO TID RF: 0 levothyroxine 50 MCG tablet 50 mcg PO DAILY RF: 0 multivitamin with folic acid 1 TABLET tablet 1 tab PO DAILY RF: 0 duloxetine 30 mg capsule,delayed release(DR/EC) 60 mg PO DAILY RF: 0 omega-3 fatty acids 500 MG capsule 1,500 mg PO DAILY RF: 0 aspirin 81 MG tablet,chewable 81 mg PO DAILY@0800 RF: 0 cetirizine 10 MG capsule 10 mg PO DAILY RF: 0 metoprolol tartrate 50 mg tablet 50 mg PO BID Qty: 180 RF: 3 spironolactone [Aldactone] 25 mg tablet 25 mg PO DAILY Qty: 90 RF: 3 clopidogrel 75 mg tablet 75 mg PO DAILY Qty: 90 RF: 3 pravastatin 80 mg tablet 80 mg PO QHS Qty: 90 RF: 3 isosorbide mononitrate 30 mg tablet extended release 24 hr 30 mg PO BID Qty: 180 RF: 3 amlodipine 10 mg tablet 10 mg PO DAILY Qty: 90 RF: 3 Primary Care Provider: Teresa Boggs Referrals: Teresa Boggs DO [Primary Care Provider] - 3-5 Days if not improving Disposition Disposition: Home, Self Care
[2021-05-14] MEDS: MethylPREDNISolone 125 MG/2 ML Vial 80 MG IV (16:40)
[2021-05-14] MEDS: DiphenhydrAMINE 50 MG/ML Syringe 12.5 MG IV (16:41)
[2021-05-14] MEDS: Famotidine 200 MG/20 ML MDV 20 MG in 0.9% Normal Saline (Pres. free 8 ML 300 MG IV (17:09)
[2021-05-14 18:34] VITALS: BP 150/80; PULSE 54; RESP 16; TEMP 37.2; O2SAT 96
== END 2021-05-14 18:37 | disposition home or self-care (01) ==
PROVIDERS: Emergency Provider Emergency Medicine; PCP Family Medicine
DX: T78.49XA Other allergy, initial encounter (principal); R09.89 Other specified symptoms and signs involving the circulatory and respiratory systems; Y92.9 Unspecified place or not applicable; I25.119 Atherosclerotic heart disease of native coronary artery with unspecified angina pectoris; I25.2 Old myocardial infarction; I50.32 Chronic diastolic (congestive) heart failure; F31.9 Bipolar disorder, unspecified; E03.9 Hypothyroidism, unspecified; K21.9 Gastro-esophageal reflux disease without esophagitis; M79.7 Fibromyalgia; M19.90 Unspecified osteoarthritis, unspecified site; G40.909 Epilepsy, unspecified, not intractable, without status epilepticus; Z95.1 Presence of aortocoronary bypass graft; Z95.5 Presence of coronary angioplasty implant and graft; Z79.82 Long term (current) use of aspirin; Z79.02 Long term (current) use of antithrombotics/antiplatelets; Z79.899 Other long term (current) drug therapy; Z87.891 Personal history of nicotine dependence; Z86.73 Personal history of transient ischemic attack (TIA), and cerebral infarction without residual deficits; Z20.828 Contact with and (suspected) exposure to other viral communicable diseases
CPT/HCPCS: 87635; 96374; 96375; 99285; U0005; A4216; J3490; U0003

== ENCOUNTER → 2021-05-14 | Outpatient (CLI) | payer MEDICARE, SELFPAY ==
[2020-07-10 09:15] VITALS: BMI 31.4
== END | disposition home or self-care (01) ==
LOC: LABSPEC 05-21 14:22
PROVIDERS: PCP Family Medicine; Visit Provider Family Medicine
DX: Z20.828 Contact with and (suspected) exposure to other viral communicable diseases (principal)
CPT/HCPCS: 87635; U0005; U0003

== ENCOUNTER → 2021-06-17 13:50 | Outpatient (CLI) | payer MEDICARE, SELFPAY ==
[2020-07-10 09:15] VITALS: BMI 31.4
== END ==
PROVIDERS: PCP Family Medicine; Referring Provider Family Medicine; Visit Provider Family Medicine
DX: Z20.822 Contact with and (suspected) exposure to COVID-19 (principal)
CPT/HCPCS: 87635; C9803; U0005; U0003

== ENCOUNTER 2021-07-15 10:00 | Outpatient (RCR) | payer MEDICARE, SELFPAY ==
[2020-07-10 09:15] VITALS: BMI 31.4
--- NOTE | 2021-07-08 11:55 | HP.PTEVAL_ITS ---
Patient's Visit Information NISSA TROTTER is a 65 year old F referred to Physical Therapy by Dr. Christian Reynolds DO with a diagnosis of B shoulder pain. Date of Evaluation: 07/08/21 Physical Therapist: Christiano Coronado, PT, ATC - Visit Plan Frequency: 2x /Week Duration: 3 Weeks Plan: Issue and instruct pt on HEP of rot cuff strengthening, scap stab ex's, UBE, and HEP - Subjective Pt reports B shoulder pain for approximately 6 weeks. Pt reports she was placed on steroids over that period of time, but notes the pain has progressively worsened. Pt reports she has more pain in the L shoulder than the right shoulder. Pt reports she has experienced falls in the past and wonders if that is what has lead her to have this pain. Pt notes she is R hand dominant. Pt reports occasional tingling in her fingers, but notes not all the time. Pt notes she has sleep difficulty at this time secondary to pain. Pt reports she has had recent x-rays which revealed impingement syndrome of B shoulders. Pt notes she has noticed more difficulty with any activity where she has to reach overhead. Pt reports she has had a lot of cardiac concerns in the past. 2/10 pain at rest, 6/10 pain with overhead reaching. - Pain B shoulders Pain Intensity (Out of 10): 2 Pain Intensity Range: 6 - Objective Neuro: B UE sensation is WNL to light touch. B bicipital reflex= 1/3. Palpation: Pain along the suprapinatus and LHB tendons. No obvious deformity. ROM: R shoulder flex= 155, abd= 125, ER= 70; L shoulder flex= 105, abd= 90, ER= 70. MMT: B shoulders are grossly 4-/5 in available ROM. Special tests: Pos HK and empty can test - Balance/Special Test Scores Quick DASH Score: 45.4525 - Goals Goal 1:: I with HEP in 2-3 visits Goal Time Frame: 2-4 Weeks - Rehabilitation Potential Physical Therapy Diagnosis: Pt has B shoulder pain, weakness, and limited ROM secondary to B shoulder rotator cuff syndrome Rehabilitation Potential: Good - Anticipated Interventions Patient/Client Instruction: Educate patient on: Condition, Plan of Care For the Purpose of:: To improve self management Therapeutic Exercise to Include: Strength training, Endurance training, Active ROM, Scapular Strength/Stabilization For the Purpose of:: To decrease pain, To increase ROM, To improve muscle performance and motor function Cryotherapy (ice pack, ice massage): Yes For the Purpose of:: To decrease pain Thank you for the opportunity to evaluate your patient. For Medicare and Medicare HMO plans, please review the plan of care and approve it. It will need to be FAXED BACK to us at [phone] for Medicare purposes. For Medicare only, by signing this I certify the plan of care. Please let me know if there are questions or concerns regarding this plan of care. Physician Signature: Date:
--- NOTE | 2021-08-26 08:23 | HP.PTDCNRP_ITS ---
NISSA TROTTER was seen in my office for initial evaluation on 07/08/21. The following Plan of Care was established for this patient: Initial Frequency: 2x /Week Initial Duration: 3 Weeks Patient/Client Instruction: Educate patient on: Condition, Plan of Care For the Purpose of:: To improve self management Therapeutic Exercise to Include: Strength training, Endurance training, Active ROM, Scapular Strength/Stabilization For the Purpose of:: To decrease pain, To increase ROM, To improve muscle performance and motor function Cryotherapy (ice pack, ice massage): Yes For the Purpose of:: To decrease pain This patient was last seen in our office . Pertinent comments regarding their Physical therapy will appear below: Pt was treated for 2 PT visits for B shoulder pain through the date of 07/15/21. Pt has not returned through todays date and is discontinued at this time. At this point I will be discontinuing this patient from physical therapy. I wo uld be happy to see this patient again in the future if found appropriate by the physician. Thank you! Christiano Coronado, PT, ATC Balance/Gait/Functional tests - Balance/Special Test Scores Quick DASH Score: 45.4568
== END 2021-07-15 19:00 | disposition home or self-care (01) ==
LOC: PT 10:00
PROVIDERS: PCP Family Medicine; Referring Provider Orthopaedic Surgery; Visit Provider Orthopaedic Surgery
DX: M75.41 Impingement syndrome of right shoulder (principal); M75.42 Impingement syndrome of left shoulder; M50.30 Other cervical disc degeneration, unspecified cervical region
CPT/HCPCS: 97110; 97161

== ENCOUNTER 2021-07-21 06:52 | Outpatient (CLI) | payer MEDICARE, SELFPAY ==
[2020-07-10 09:15] VITALS: BMI 31.4
--- NOTE | 2021-07-21 17:49 | STRESSREP ---
Stress Test Report Exercise myocardial perfusion stress test. 65-year-old lady with a history of coronary artery disease. Medications amlodipine Plavix aspirin isosorbide metoprolol spironolactone. Stress protocol: Resting EKG demonstrates normal sinus rhythm with a rate of 88 bpm normal intervals are noted resting blood pressure is 140/78 mmHg. The patient exercised according to the regular Gold protocol for total duration of 7 minutes. Patient completed 1 minute into stage III of the Gold protocol. The maximum heart rate attained was 151 bpm which was 98% of max impact at heart rate the maximum workload was 10.1 metabolic equivalents. At rest there were no ST or T wave changes noted to suggest ischemia occasional premature ventricular complexes noted. The peak blood pressure was 160/74 mmHg. Rate-pressure product was 22,240. Myocardial perfusion protocol. 10.8 mCi of technetium 99m sestamibi was injected at rest. The patient exercised according to regular Gold protocol for 7 minutes and at peak exercise 33.6 mCi of technetium 99m sestamibi was injected stress images were obtained stress and rest images were reconstructed and compared in the short axis vertical long and horizontal long axis. Gated images were also obtained Perfusion SPECT analysis: Review of the stress images demonstrate normal uptake of tracer noted in all areas of the myocardium. The resting images similarly demonstrate normal uptake of tracer noted in all areas of the myocardium. No areas of reversibility are noted to suggest ischemia and no previous infarct is noted. Gated SPECT analysis: The gated ejection fraction is 68%. Conclusion: Normal exercise myocardial perfusion stress test at a high workload. No clinical angina noted. Preserved ejection fraction.
== END 2021-07-21 23:59 | disposition short-term general hospital (02) ==
LOC: CVS 06:54
PROVIDERS: PCP Family Medicine; Referring Provider Family Medicine; Visit Provider Nurse Practitioner Gerontology
DX: R07.9 Chest pain, unspecified (principal)
CPT/HCPCS: 78452; 93017; A9500; A4216

== ENCOUNTER 2021-07-29 14:45 | Outpatient (CLI) | payer MEDICARE, SELFPAY ==
[2020-07-10 09:15] VITALS: BMI 31.4
[2021-07-29 15:06] LABS: Absolute Lymphocyte Count 1.46 X10^3/uL (0.83-4.51); Basophil# 0.03 X10^3/uL; Basophil% 0.3 % (0-1); Eosinophil# 0.17 X10^3/uL; Eosinophils% 1.6 % (0-5); Hemoglobin 13.8 g/dL (12.0-15.0); Lymphocyte # 1.46 X10^3/ul (0.83-4.51); Lymphocyte % 13.8 % (19-41); Mean Corp Hgb Conc 34.5 g/dL (32-36); Mean Corpuscular Hgb 32.7 pg (27.0-32.0); Mean Corpuscular Volume 94.8 fL (81-99); Mean Platelet Vol. 8.3 fl (6.2-12.0); Monocyte# 0.82 X10^3/uL; Monocyte% 7.7 % (0-10); NRBC Flagged by Analyzer 0 % (0-5); Neutrophil % 75.6 % (47-70); Platelet Count 252 K/mm3 (150-450); RBC Distribution Width CV 13.5 % (11.6-14.6); RBC Distribution Width SD 46.8 fl (35.1-43.9); Red Blood Count 4.22 M/mm3 (4.2-5.4); White Blood Count 10.6 K/mm3 (4.4-11.0)
[2021-07-29 15:36] LABS: AST(SGOT) 24 U/L (15-37); Alanine Aminotransfer ALT/SGPT 35 U/L (13-56); Albumin, Serum 3.9 g/dL (3.2-5.0); Alkaline Phosphatase 45 U/L (45-117); GGTP 43 U/L (5-55); Globulin 3.5 g/dL (2.2-4.2); Protein, Total 7.4 g/dL (6.4-8.2)
[2021-07-31 15:51] LABS: ANTINUCLEAR ANTIBODIES DIRECT Negative (Negative)
== END 2021-07-29 23:59 | disposition short-term general hospital (02) ==
LOC: LAB 14:46
PROVIDERS: PCP Family Medicine; Referring Provider Family Medicine; Visit Provider Family Medicine
DX: E78.5 Hyperlipidemia, unspecified (principal); E80.6 Other disorders of bilirubin metabolism
CPT/HCPCS: 36415; 80076; 82977; 85025; 86038

== ENCOUNTER 2021-08-06 09:40 | Outpatient (CLI) | payer MEDICARE, SELFPAY ==
[2020-07-10 09:15] VITALS: BMI 31.4
--- NOTE | 2021-08-06 09:43 | US_ITS ---
STUDY: ABDOMINAL ULTRASOUND - RIGHT UPPER QUADRANT REASON FOR VISIT: Female, 65 years old. INDIGESTION RUQ ABD PAIN TECHNIQUE: Ultrasound evaluation of the right upper quadrant was performed with real-time and static kinney-scale imaging. TECHNICAL QUALITY: Adequate. COMPARISON: None. FINDINGS: Liver: There is normal echogenicity of the liver. The bile ducts are within normal limits. There is hepatic color flow. The direction of portal flow is hepatopetal. There is no demonstrated mass lesion. Gallbladder: Normal distended gallbladder. The gallbladder wall measures 2.1 mm. There is a negative sonographic Pacheco''s sign. There is no pericholecystic fluid. There are no gallstones. Common Bile Duct (C.B.D.): The common bile duct measures ( in mm): 6 Pancreas: Normal size of the head, body of the pancreas. There is normal echogenicity of the pancreas. There is no demonstrated pancreatic mass or cyst. Right Kidney: Normal size of the right kidney. The right kidney measures 9.7 cm. . Echogenic. There is a cyst. This measures 10 x 8 mm and 18 x 24 mm. There is no right hydronephrosis. Aorta: It is not visualized. There is too much overlying bowel gas. . US/Abdomen Limited IMPRESSION: Echogenic kidneys are suggestive of chronic medical renal disease. There is hypoechoic foci of the right kidney. These are consistent for cysts. No follow up required. Electronically Signed: Christiano Stinson MD at 16:50 EST ,
== END 2021-08-06 23:59 | disposition home or self-care (01) ==
LOC: US 09:41
PROVIDERS: PCP Family Medicine; Referring Provider Family Medicine; Visit Provider Family Medicine
DX: R10.9 Unspecified abdominal pain (principal); R11.0 Nausea
CPT/HCPCS: 76705

== ENCOUNTER → 2021-12-26 | Outpatient (CLI) | payer MEDICARE, SELFPAY ==
[2020-07-10 09:15] VITALS: BMI 31.4
--- NOTE | 2021-12-26 08:28 | BI_ITS ---
MAMMOGRAPHY - BILATERAL SCREENING REASON FOR EXAM: Female, 66 years old. Routine annual screening examination. PERTINENT HISTORY: Non-contributory. TECHNIQUE: Digital bilateral breast connor (3D mammographic acquisition) in the CC and MLO projections. 2-D mediolateral oblique (MLO) and craniocaudad (CC) views of both breasts were obtained. CAD: Full Field Digital Mammography with Computer Added Detection was performed. COMPARISON: Comparison is made with prior study dated 12/25/2020 and 05/21/2020. FINDINGS: Breast Composition: The breasts are almost entirely fatty. There are no dominant masses or suspicious calcifications. Previously seen 8 mm x 8.8 mm well-defined nodule in the inferior medial aspect of the right breast has resolved. No other significant abnormalities are identified. There has been no significant change since the prior study. BI/SCRN MAMM (CAD)W/CONNOR BILAT IMPRESSION: Stable bilateral screening mammogram. Yearly follow-up mammogram recommended. (A) ASSESSMENT CATEGORY: BIRADS Category 2: Benign. A letter regarding these results will be sent to the patient by the facility within 30 days. Approximately 10% of breast cancers are not detected by mammography. A normal mammogram should not delay biopsy of a clinically suspicious abnormality. [id number] Electronically Signed: Dwight Bautista MD at 11:00 EDT ,
== END | disposition home or self-care (01) ==
LOC: OPBI 08:27
PROVIDERS: PCP Family Medicine; Referring Provider Family Medicine; Visit Provider Family Medicine
DX: Z12.31 Encounter for screening mammogram for malignant neoplasm of breast (principal)
CPT/HCPCS: 77063; 77067

== ENCOUNTER → 2022-01-13 | Outpatient (CLI) | payer MEDICARE, SELFPAY ==
[2020-07-10 09:15] VITALS: BMI 31.4
[2022-01-13 09:30] LABS: AST(SGOT) 27 U/L (15-37); Alanine Aminotransfer ALT/SGPT 21 U/L (13-56); Albumin, Serum 4.2 g/dL (3.2-5.0); Alkaline Phosphatase 54 U/L (45-117); Bilirubin, Direct 0.23 mg/dL (0.00-0.30); Cholesterol 168 mg/dL (200); High Density Lipoprotein 66 mg/dL; Protein, Total 7.2 g/dL (6.4-8.2); Triglycerides 144 mg/dL; Very Low Density Lipoprotein 29 mg/dL (5-40)
== END | disposition home or self-care (01) ==
LOC: LAB 08:06
PROVIDERS: PCP Family Medicine; Referring Provider Internal Medicine Cardiovascular Disease; Visit Provider Internal Medicine Cardiovascular Disease
DX: E78.00 Pure hypercholesterolemia, unspecified (principal)
CPT/HCPCS: 36415; 80061; 80076

== ENCOUNTER → 2022-01-24 | Outpatient (CLI) | payer MEDICARE, SELFPAY ==
[2020-07-10 09:15] VITALS: BMI 31.4
[2022-01-24 10:33] LABS: Free T3 1.7 pg/mL (2.18-3.98); T4 Free Direct 0.81 ng/dL (0.76-1.46); Thyroid Stim Hormone (TSH) 0.86 uIU/mL (0.358-3.74)
[2022-01-26 10:44] LABS: Thyroid Peroxidase AB < 8 IU/mL (0-34)
== END | disposition home or self-care (01) ==
LOC: LAB 09:35
PROVIDERS: PCP Family Medicine; Visit Provider Family Medicine
DX: E03.9 Hypothyroidism, unspecified (principal)
CPT/HCPCS: 36415; 84439; 84443; 84481; 86376

== ENCOUNTER 2022-02-24 07:41 | Emergency (ER) | payer MEDICARE, SELFPAY ==
[2020-07-10 09:15] VITALS: BMI 31.4
[2022-02-24 07:43] VITALS: BP 122/78; PULSE 79; RESP 18; TEMP 36; O2SAT 98; BMI 31.1
--- NOTE | 2022-02-24 08:14 | ED.VIS.CHEST ---
HPI History of Present Illness Chief Complaint: Chest Pain Informant: patient Onset/Context/Timing Onset: Yesterday Activity at onset: gradual Timing: Continuous Quality: Positive for Pressure Location: Left Parasternal Worsened By: Nothing Relieved By: Nothing Associated Symptoms: Positive for Nausea, Diaphoresis, Dyspnea, Lightheadedness, Acid Reflux and Palpitations; Negative for Vomiting, Cough or Fever Narrative Narrative: Patient presents with chest pain that began yesterday. Patient states it has been constant. Patient states it is gradually getting worse. Patient states her heart feels tired. Patient also admits to some pressure in her chest. Patient states nothing makes it worse and nothing makes it better. Patient admits to nausea but denies any vomiting. Patient does admit to some shortness of breath with denies any cough or fever. Patient admits to some diaphoresis and reflux. Patient also admits to some palpitations. CVD Risk Factors: Positive for Hypertension, Hypercholesterolemia and Family History 1' </=55; Negative for Diabetes or Smoking PE Risk Factors: Positive for Cancer; Negative for Recent Travel/Surgery, Recent Immobilization or Prior DVT or PE [facility] Medical History Actinic keratoses Atherosclerosis of coronary artery of [place] heart with angina pectoris Basal cell carcinoma of neck Bipolar 1 disorder Blurred vision, bilateral Chronic diastolic (congestive) heart failure Contusion of left hand, initial encounter CVA (cerebral vascular accident) Essential (primary) hypertension Fibromyalgia GERD (gastroesophageal reflux disease) Hyperlipidemia Hypothyroidism IBS (irritable bowel syndrome) Myocardial infarct Non-rheumatic tricuspid valve insufficiency Osteoarthritis Post traumatic stress disorder (PTSD) Seizure disorder Slurred speech Subluxation of left thumb TIA (transient ischemic attack) Home Medications buspirone 5 mg tablet 10 mg PO TID MENTAL HEALTH 02/03/14 [History Last Taken 11/02/19 21:00] multivitamin with folic acid 400 mcg tablet 1 tab PO DAILY SUPPLEMENT 02/03/14 [History Last Taken 11/02/19] omega-3 fatty acids 500 mg capsule 1,500 mg PO DAILY SUPPLEMENT 10/20/15 [History Last Taken 11/02/19] aspirin 81 mg chewable tablet 81 mg PO DAILY@0800 ANTIPLATELET 09/24/16 [History Last Taken 03/25/20] cetirizine 10 mg capsule 10 mg PO DAILY 11/02/19 [History Last Taken 11/02/19] duloxetine 30 mg capsule,delayed release 60 mg PO DAILY MENTAL HEALTH 11/28/19 [History Last Taken Unknown] magnesium oxide 400 mg PO DAILY 05/01/20 [History Last Taken Unknown] amlodipine 10 mg tablet 10 mg PO DAILY #90 tabs 06/26/21 [Rx Last Taken Unknown] isosorbide mononitrate 30 mg tablet,extended release 24 hr 30 mg PO BID #180 tabs 06/26/21 [Rx Last Taken Unknown] nitroglycerin 0.4 mg sublingual tablet 0.4 mg sublingual Q5-15M PRN Chest Pain #25 tabs 07/02/21 [Rx Last Taken Unknown] metoprolol tartrate 50 mg tablet 50 mg PO BID #180 tabs 12/01/21 [Rx Last Taken Unknown] pravastatin 80 mg tablet 80 mg PO QHS CHOLESTEROL #90 tabs 01/05/22 [Rx Last Taken Unknown] clopidogrel 75 mg tablet 75 mg PO DAILY antiplatelet #90 tabs 01/12/22 [Rx Last Taken Unknown] levothyroxine 50 mcg tablet 50 mcg PO DAILY THYROID 01/12/22 [History Last Taken Unknown] spironolactone 25 mg tablet (Aldactone) 25 mg PO DAILY #90 tabs 01/27/22 [Rx Last Taken Unknown] Allergy/AdvReac Type Severity Reaction Status Date / Time adhesive tape Allergy Rash Verified 02/24/22 07:42 codeine Allergy Itching Verified 02/24/22 07:42 doxazosin Allergy DROPS Verified 02/24/22 07:42 HEART RATE furosemide [From Lasix] Allergy Itching Verified 02/24/22 07:42 latex Allergy Rash Verified 02/24/22 07:42 lisinopril Allergy Angioedema Verified 02/24/22 07:42 oxycodone HCl [From Percocet] Allergy Itching Verified 02/24/22 07:42 tramadol HCl [From Ultram] Allergy Itching Verified 02/24/22 07:42 Family History Father CAD (coronary artery disease) Hypertension Mother CAD (coronary artery disease) Hypertension Sister Hypertension Surgical History H/O coronary artery bypass surgery (10/21/07) H/O right coronary artery stent placement (03/25/20) History of left heart catheterization (08/09/17) Social History Smoking Status: Former smoker alcohol intake: former details: Participates in AA substance use type: does not use what type of physical activity do you participate in: walking seatbelt use: always do you feel safe at home: Yes additional social history: disability- retired ROS ROS ED Constitutional Constitutional ED: Denies chills or fever(s) Eyes Eyes: Denies blurry vision or change in vision ENT ENT ED: Denies rhinorrhea or sore throat Cardiovascular Cardiovascular: Reports chest pain and palpitations Respiratory/Chest Respiratory/Chest: Reports dyspnea; Denies cough Gastrointestinal Gastrointestinal: Reports nausea; Denies abdominal pain or vomiting Genitourinary Genitourinary ED: Reports urinary frequency; Denies dysuria or hematuria Musculoskeletal Musculoskeletal: Reports back pain; Denies neck pain Integumentary Denies abscess or rash Neurologic Neurologic: Denies headache(s) or weakness Allergic/Immunologic Allergic/Immunologic ED: Denies mouth swelling or urticaria EXAM Physical Exam Const Vital Signs: 02/24/22 07:43 02/24/22 08:46 02/24/22 09:51 Temperature 96.8 F L Temperature Source Temporal Pulse Rate 79 61 Respiratory Rate 18 18 Blood Pressure 122/78 H 136/60 H Blood Pressure Mean 92 85 Pulse Ox 98 98 Oxygen Delivery Method Room Air Room Air Room Air Positive well nourished, well developed and obese General Appearance ED: well developed and NAD Nutritional Appearance: obese HEENT normocephalic and atraumatic Eyes PERRL and EOMs intact bilaterally Neck supple and no JVD Chest Wall palpation of chest normal Resp normal respiratory effort and clear to auscultation bilaterally Effort and Inspection: Negative for respiratory distress Cardio regular rate, regular rhythm and no murmurs GI normal to inspection, nondistended, normoactive bowel sounds, soft to palpation, non-tender and non-distended Extremity normal to inspection General Extremety ED: Negative for edema or tenderness General Extremity: Negative for edema Neuro oriented x3, CN's II-XII intact bilaterally and no sensory deficits noted Sensorium / Orientation: awake and alert Motor Exam: strength 5/5 throughout Psych mental status grossly normal Heart Score History: Slightly/Non-Suspicious ECG: Normal Age: >/= 65 years Risk Factors: >/= 3 Risk Factors or History of CAD Troponin: </= Normal Limit Score: 4 MDM MDM MDM Narrative Medical decision making narrative: EKG was obtained. On my interpretation, it showed a normal sinus rhythm with a rate of 70. DC interval, QRS interval, and QTc intervals were all normal. [place] was normal. There are no acute ST or T wave changes. Portable 1 view chest x-ray was obtained. On my interpretation, lung rae are clear. There is normal cardiac silhouette. Bony thorax is normal. There is no acute process noted. Radiologist also interpreted the x-ray and agrees. CBC was within normal limits. Basic metabolic profile was within normal limits. D-dimer was slightly elevated at 0.98. High-sensitivity troponin was normal. TSH was slightly low at 0.21. Because of the elevated D-dimer, CTA of the chest was obtained. There is no evidence of pulmonary embolism or aortic dissection. This was interpreted by the radiologist and reviewed by myself. Patient is feeling better on reevaluation. Patient has a HEART score of 4. Patient was instructed to follow-up with her primary care physician in 5 to 7 days for reevaluation. Patient understood and was agreeable with the plan. All questions were answered. Lab Data Attestation: I reviewed the patient's lab results. Labs: Laboratory Results - last 24 hr 02/24/22 02/24/22 02/24/22 07:58 07:58 07:58 WBC 6.0 RBC 4.25 Hgb 13.5 Hct 40.2 MCV 94.6 MCH 31.8 MCHC 33.6 RDW Std Deviation 47.0 H RDW Coeff of [place] 13.4 Plt Count 314 MPV 9.6 Immature Gran % (Auto) 0.200 Neut % (Auto) 54.7 Lymph % (Auto) 28.0 [place] % (Auto) 13.2 H Eos % (Auto) 3.2 Baso % (Auto) 0.7 Absolute Neuts (auto) 3.3 Absolute Lymphs (auto) 1.68 Nucleated RBC % 0 D-Dimer Quant (PE/DVT) 0.98 H* Sodium 140 Potassium 3.3 L Chloride 105 Carbon Dioxide 22.0 Anion Gap 13 BUN 15 Creatinine 0.98 Estim Creat Clear Calc 44.06 Est GFR (MDRD) Af Amer 73 Est GFR (MDRD) Non-Af 60 BUN/Creatinine Ratio 15.4 Glucose 118 H Calcium 9.6 Troponin I High Sens 26 TSH 0.21 L Radiography Diagnostic Testing: Clinical Impression(s) from Imaging Studies Chest X-Ray 02/24/22 09:00 IMPRESSION: Status post CABG. No acute abnormality is seen. Electronically Signed: Dwight Bautista MD at 9:31 EDT , Chest CTA 02/24/22 09:17 IMPRESSION: No evidence of pulmonary embolism. Electronically Signed: Dwight Bautista MD at 10:10 EDT , EKG Initial EKG: Attestation: I personally reviewed and interpreted this EKG as follows: Interpretation: Sinus Rhythm (70) and No Acute Injury Pattern Prior EKG tracings: available for review Prior: Unchanged (07/21/2021) Discharge Plan Triage Chief Complaint: Chest Pain ED Provider: Bassam Orta Dx/Rx/DC Orders Clinical Impression: Chest pain, Essential (primary) hypertension Instructions: ED Chest Pain, Uncertain Cause Prescriptions: No Action magnesium oxide 400 mg magnesium capsule 400 mg PO DAILY buspirone 5 MG tablet 10 mg PO TID Label Comments: MENTAL HEALTH multivitamin with folic acid 1 TABLET tablet 1 tab PO DAILY Label Comments: SUPPLEMENT duloxetine 30 mg capsule,delayed release(DR/EC) 60 mg PO DAILY Label Comments: MENTAL HEALTH levothyroxine 50 mcg tablet 50 mcg PO DAILY Label Comments: THYROID Rx Instructions: 75 mcg t,th 50 mcg m, w,f,sat, sun omega-3 fatty acids 500 MG capsule 1,500 mg PO DAILY Label Comments: SUPPLEMENT aspirin 81 MG tablet,chewable 81 mg PO DAILY@0800 Label Comments: HEART HEALTH cetirizine 10 MG capsule 10 mg PO DAILY amlodipine 10 mg tablet 10 mg PO DAILY Qty: 90 3RF Label Comments: BLOOD PRESSURE isosorbide mononitrate 30 mg tablet extended release 24 hr 30 mg PO BID Qty: 180 3RF nitroglycerin 0.4 mg tablet, sublingual 0.4 mg SUBLINGUAL Q5-15M PRN (Reason: Chest Pain) Qty: 25 6RF metoprolol tartrate 50 mg tablet 50 mg PO BID Qty: 180 3RF pravastatin 80 mg tablet 80 mg PO QHS Qty: 90 3RF clopidogrel 75 mg tablet 75 mg PO DAILY Qty: 90 3RF spironolactone [Aldactone] 25 mg tablet 25 mg PO DAILY Qty: 90 3RF Primary Care Provider: Teresa Boggs Referrals: Teresa Boggs DO [Primary Care Provider] - 5-7 Days Disposition Disposition: Home, Self Care
--- NOTE | 2022-02-24 08:39 | EKG12_ITS ---
Test Reason : cp Blood Pressure : / mmHG Vent. Rate : 070 BPM Atrial Rate : 070 BPM P-R Int : 112 ms QRS Dur : 096 ms QT Int : 418 ms P-R-T Axes : 041 024 025 degrees QTc Int : 451 ms Normal sinus rhythm Normal ECG Confirmed by KANE METCALF, BRANDO ([id number]), electronic news gathering editor TRINY CONN ([id number]) on 02/26/2022 8:03:59 AM Referred By: Marivel Confirmed By:BRANDO MIDDLETON MD
[2022-02-24 08:51] LABS: Absolute Lymphocyte Count 1.68 X10^3/uL (0.83-4.51); Absolute Neutrophil Count 3.3 X10^3/uL (2.0-7.7); Basophil# 0.04 X10^3/uL; Basophil% 0.7 % (0-1); Eosinophil# 0.19 X10^3/uL; Eosinophils% 3.2 % (0-5); Hematocrit 40.2 % (37-47); Hemoglobin 13.5 g/dL (12.0-15.0); Lymphocyte # 1.68 X10^3/ul (0.83-4.51); Mean Corp Hgb Conc 33.6 g/dL (32-36); Mean Corpuscular Hgb 31.8 pg (27.0-32.0); Mean Corpuscular Volume 94.6 fL (81-99); Mean Platelet Vol. 9.6 fl (6.2-12.0); Monocyte# 0.79 X10^3/uL; Monocyte% 13.2 % (0-10); NRBC Flagged by Analyzer 0 % (0-5); Neutrophil # 3.29 X10^3/uL (2.7-7.7); Neutrophil % 54.7 % (47-70); Platelet Count 314 K/mm3 (150-450); RBC Distribution Width CV 13.4 % (11.6-14.6); Red Blood Count 4.25 M/mm3 (4.2-5.4)
[2022-02-24] MEDS: Aspirin 81 MG TAB.CHEW 324 MG PO (08:53)
--- NOTE | 2022-02-24 09:00 | RAD_ITS ---
STUDY: X-RAY CHEST REASON FOR EXAM: Female, 66 years old. Chest pain TECHNIQUE: Single AP portable view of the chest. COMPARISON: Comparison is made with prior study dated 11/02/2019. FINDINGS: EKG electrodes are seen. Stable minimal linear density at the left lung base suggestive of linear scarring. There is no demonstrated pleural abnormality. Sternal cerclage wires and vascular clips are present from a prior sternotomy and coronary artery bypass graft procedure (CABG). Normal mediastinum and marisabel. Normal visualized pulmonary arteries. Normal visualized aortic arch and descending thoracic aorta. Normal visualized thoracic spine. There is degenerative osteoarthritis of the bilateral shoulders. There is no demonstrated abnormality of the visualized soft tissue structures of the upper abdomen. RAD/Chest 1 View (Portable) IMPRESSION: Status post CABG. No acute abnormality is seen. Electronically Signed: Dwight Bautista MD at 9:31 EDT ,
[2022-02-24 09:12] LABS: D-Dimer Quantitative (DVT/PE) 0.98 FEU/ug/m (0.27-0.49)
--- NOTE | 2022-02-24 09:17 | CT_ITS ---
STUDY: CTA CHEST REASON FOR EXAM: Female, 66 years old. Elevated D-dimer. Chest pain. Dizziness. RADIATION DOSAGE (If Supplied By Facility): CTDIvol = ( 15.75 ) mGy, DLP = ( 428.37 ) mGycm TECHNIQUE: The examination was performed with the intravenous administration of IV 75mL Isovue-370. Post-processing of the angiographic images was performed, with multiplanar reformation and 3D reconstruction. Individualized dose optimization techniques were used for this CT. COMPARISON: Comparison is made with prior study dated 11/03/2019. FINDINGS: Normal enhancement of the main pulmonary artery and right and left pulmonary arteries. Normal enhancement of the bilateral peripheral pulmonary arteries. There is no demonstrated pulmonary embolism. There is atherosclerotic calcification of the aortic arch with tortuosity. There is no demonstrated aortic dissection. Sternal cerclage wires and vascular clips are present from a prior sternotomy and coronary artery bypass graft procedure (CABG). There are calcifications of the coronary arteries. Normal mediastinum. Normal hilar regions. Normal visualized trachea and bronchi. The lungs are well expanded. Normal pulmonary parenchyma. Normal pleura. Normal chest wall structures. There are degenerative changes of thoracic spine. Stable right renal cyst CT/CTA Chest W/WO Contrast IMPRESSION: No evidence of pulmonary embolism. Electronically Signed: Dwight Bautista MD at 10:10 EDT ,
[2022-02-24 09:23] LABS: Anion Gap 13 (5-15); BUN 15 mg/dL (7-18); BUN/Creat Ratio 15.4 RATIO (10-20); Calcium,Total 9.6 mg/dL (8.5-10.1); Chloride 105 mmol/L (98-107); Creatinine, Serum 0.98 mg/dL (0.55-1.02); EST Glomerular Filtration Rate 60 mL/min (>60); Est Glom Filt Rate - Afr Amer 73 mL/min (>60); Estimated Creatinine Clearance 44.06 ml/min; Glucose 118 mg/dL (74-106); Potassium 3.3 mmol/L (3.5-5.1); Sodium Level 140 mmol/L (136-145); Thyroid Stim Hormone (TSH) 0.21 uIU/mL (0.358-3.74); Troponin-I HS (w/2H Reflex) 26 pg/mL (3.0-54.0)
[2022-02-24 09:51] VITALS: BP 136/60; PULSE 61; RESP 18; O2SAT 98
[2022-02-24 10:49] LABS: Reflex Troponin-HS? (from REC) Y
[2022-02-24 12:00] LABS: Troponin-I HS 24 pg/mL (3.0-54.0)
[2022-02-24 12:48] VITALS: BP 108/63; PULSE 63; RESP 16; RESP 18; O2SAT 95
== END 2022-02-24 12:50 | disposition home or self-care (01) ==
PROVIDERS: Emergency Provider Emergency Medicine; PCP Family Medicine; Visit Provider Emergency Medicine
DX: R07.9 Chest pain, unspecified (principal); I11.0 Hypertensive heart disease with heart failure; I50.32 Chronic diastolic (congestive) heart failure; F31.9 Bipolar disorder, unspecified; E78.5 Hyperlipidemia, unspecified; I25.10 Atherosclerotic heart disease of native coronary artery without angina pectoris; E66.9 Obesity, unspecified; Z79.899 Other long term (current) drug therapy; Z79.82 Long term (current) use of aspirin; Z87.891 Personal history of nicotine dependence
CPT/HCPCS: 71045; 71275; 80048; 84443; 84484; 85025; 85379; 93005; 99285; Q9967; A4216

== ENCOUNTER → 2022-03-31 | Outpatient (CLI) | payer MEDICARE, SELFPAY ==
[2020-07-10 09:15] VITALS: BMI 31.4
[2022-03-31 22:41] LABS: Free T3 3.6 pg/mL (2.18-3.98); T4 Free Direct 1.06 ng/dL (0.76-1.46); Thyroid Stim Hormone (TSH) 0.08 uIU/mL (0.358-3.74)
== END | disposition home or self-care (01) ==
LOC: LAB 12:57
PROVIDERS: PCP Family Medicine; Visit Provider Family Medicine
DX: E03.9 Hypothyroidism, unspecified (principal)
CPT/HCPCS: 36415; 84439; 84443; 84481

== ENCOUNTER → 2022-05-28 | Outpatient (CLI) | payer MEDICARE, SELFPAY ==
[2022-04-30 10:36] VITALS: BMI 31.4
[2022-05-28 16:27] LABS: Free T3 2.2 pg/mL (2.18-3.98); T4 Free Direct 0.89 ng/dL (0.76-1.46); Thyroid Stim Hormone (TSH) 0.34 uIU/mL (0.358-3.74)
== END | disposition home or self-care (01) ==
LOC: LAB 14:58
PROVIDERS: PCP Family Medicine; Visit Provider Family Medicine
DX: E03.9 Hypothyroidism, unspecified (principal)
CPT/HCPCS: 36415; 84439; 84443; 84481

== ENCOUNTER → 2022-07-10 | Outpatient (CLI) | payer MEDICARE, SELFPAY ==
[2022-04-30 10:36] VITALS: BMI 31.4
[2022-07-10 11:27] LABS: AST(SGOT) 22 U/L (15-37); Alanine Aminotransfer ALT/SGPT 25 U/L (13-56); Albumin, Serum 3.9 g/dL (3.2-5.0); Alkaline Phosphatase 55 U/L (45-117); Bilirubin, Direct 0.22 mg/dL (0.00-0.30); Cholesterol 170 mg/dL (200); Globulin 3.3 g/dL (2.2-4.2); High Density Lipoprotein 66 mg/dL; Protein, Total 7.2 g/dL (6.4-8.2); Triglycerides 190 mg/dL; Very Low Density Lipoprotein 38 mg/dL (5-40)
== END | disposition home or self-care (01) ==
LOC: LAB 09:49
PROVIDERS: PCP Family Medicine; Referring Provider Internal Medicine Cardiovascular Disease; Visit Provider Internal Medicine Cardiovascular Disease
DX: E78.5 Hyperlipidemia, unspecified (principal); Z95.5 Presence of coronary angioplasty implant and graft
CPT/HCPCS: 36415; 80061; 80076

== ENCOUNTER 2022-07-15 06:01 | Day surgery (SDC) | payer MEDICARE, SELFPAY ==
[2022-04-30 10:36] VITALS: BMI 31.4
--- NOTE | 2022-07-14 22:54 | PCM.HP.BLA ---
History and Physical Date of Admission: 07/15/22 HISTORY OF PRESENT ILLNESS 66 year old woman presents for evaluation for TBSE.? Her PCP is treating lesions on her nasal dorsum and left neck and left postauricular area with extension to the posterior ear with freezing.? The lesions have responded except for the one on the left postauricular area with extension to the posterior ear which has enlarged.? It also intermittently scabs over.? She did have a basal cell carcinoma excised from her right neck in May,.? She denies fever.? She denies trauma.? She denies any infection. She denies any bleeding or drainage.? She presents today for further evaluation and treatment. PAST MEDICAL HISTORY Actinic keratoses Alcohol abuse Anxiety and depression Atherosclerosis of coronary artery of [place] heart with angina pectoris Basal cell carcinoma of neck Bipolar 1 disorder Blurred vision, bilateral Chronic diastolic (congestive) heart failure Contusion of left hand, initial encounter CVA (cerebral vascular accident) Essential (primary) hypertension Fibromyalgia Former smoker GERD (gastroesophageal reflux disease) High triglycerides Hyperlipidemia Hypothyroidism IBS (irritable bowel syndrome) Myocardial infarct Neoplasm of skin of ear Non-rheumatic tricuspid valve insufficiency ELODIA (obstructive sleep apnea) Osteoarthritis Personal history of skin cancer Post traumatic stress disorder (PTSD) Seizure disorder Slurred speech Subluxation of left thumb TIA (transient ischemic attack) PAST SURGICAL HISTORY H/O coronary artery bypass surgery (10/21/07) H/O right coronary artery stent placement (03/25/20) History of basal cell carcinoma excision History of left heart catheterization (08/09/17) ALLERGIES adhesive tape codeine doxazosin furosemide [From Lasix] latex lisinopril oxycodone HCl [From Percocet] tramadol HCl [From Ultram] MEDICATIONS buspirone multivitamin with folic acid omega-3 fatty acids aspirin cetirizine duloxetine magnesium oxide amlodipine isosorbide mononitrate nitroglycerin metoprolol tartrate pravastatin clopidogrel spironolactone (Aldactone) cyclobenzaprine liothyronine zinc gluconate calcium carbonate-vitamin D3 [id number] levothyroxine FAMILY HISTORY Father - CAD (coronary artery disease), Hypertension Mother - CAD (coronary artery disease), Hypertension Sister - Hypertension Other - Alcoholism, Anxiety, Arthritis, Depression, Heart disease SOCIAL HISTORY Smoking Status:? Former smoker alcohol intake:? former details:? Participates in AA substance use type:? does not use REVIEW OF SYSTEMS General - Denies fever, fatigue, and weight loss. Eyes - Has cataracts.? Denies glaucoma. ENT - Denies nasal congestion and sore throat. Endocrine - Denies excessive thirst and urination. Has thyroid disease.? Has heat and cold intolerance. Skin - Has personal history of skin cancer (basal cell carcinoma right neck excised May,).? Has enlarging lesion left postauricular area with extension to the posterior ear. Musculoskeletal - Has joint pain, joint stiffness, back pain, and arthritis.? Denies weakness of muscles and joints. Neuro - Denies headaches. Cardiovascular - Denies chest pain, fatigue, and shortness of breath with exertion. Has CAD and hypertension. Psych - Has anxiety and depression. Respiratory - Denies chronic cough and shortness of breath.? Has sleep apnea.? Patient is a former smoker. Gastrointestinal - Denies nausea, vomiting, and constipation.? Has diarrhea.? Has IBS. Hematologic - Denies abnormal bruising and bleeding. Genitourinary - Denies hematuria and urinary frequency. PHYSICAL EXAMINATION General - Alert and Oriented HEENT - PERRL. EOMI.? Throat is clear.? On the left postauricular area with extension to the posterior ear is a scabby lesion that is erythematous and measures 1.1 cm.? Has irregular borders. No ulceration.? Lesion is nontender.? On the nasal dorsum is a small area of erythema that was recently treated with freezing. No other suspicious lesions noted. Neck - Supple and nontender.? No cervical adenopathy. On the left neck is a small area of erythema that was recently treated with freezing. No other suspicious lesions noted. Lungs - Clear to auscultation. Heart - Regular rate and rhythm. Abdomen - Soft and nondistended. Extremities - FROM. No axillary adenopathy.? Radial pulses are palpable. No suspicious lesions noted. Neuro - CN II-XII grossly intact. Psych - Normal mood and affect. ASSESSMENT 1.? 1.1 cm lesion left postauricular area with extension to the posterior ear, clinically a squamous cell carcinoma. 2.? Personal history of skin cancer. 3.? Former smoker. PLAN Patient has an enlarging lesion left postauricular area with extension to the posterior ear that is clinically suspicious for carcinoma.? Attempts were made to treat it locally with freezing without success as the lesion has increased in size.? Recommend excision of this lesion left postauricular area with extension to the posterior ear and send it to Pathology for analysis to rule out carcinoma.? A full thickness excision will be done to look for possible invasion.? If no carcinoma is seen, then will close up the smaller wound defect with a local skin flap and/or possible skin graft. If carcinoma is present, then further excision will be done with a margin in all directions followed by reconstruction of a larger wound that would need a larger skin flap and/or larger skin graft. Any wound extension onto the posterior ear would probably be skin grafted. Surgery would be done under local anesthesia and IV sedation on an outpatient basis. Patient was informed of the risks and complications of the procedure including alternatives to surgery.? These were discussed with the patient personally.? Patient voices understanding and wishes to proceed. Some of the risks and complications were included in a form from the [employer]. Assessment & Plan Assessment/Plan (1) Neoplasm of skin of ear: (2) Personal history of skin cancer: (3) Former smoker:
[2022-07-15] VITALS (7 sets, daily range): BP systolic 104–128; BP diastolic 52–73; PULSE 64–78; RESP 16; TEMP 36.4–36.6; O2SAT 93–100; BMI 29.8
--- NOTE | 2022-07-15 | LES_PTH ---
PATIENT: NISSA TROTTER LOC: [facility] U#:[id number] AGE/SX: 66/F ROOM: RE07/15/[address]: Dr. Carlos Peoples MD : [id number] BED: DIS: 07/15/2022 SPEC #: [id number] RECD: 07/15/22 08:07 STATUS: PAULA LISSA #: [id number] LATOYA: 07/15/22 00:[address]: Carlos Peoples DEPT: SURGICAL PATHOLOGY RECD BY: Alka Weaver ENTERED: 07/15/22 09:24 SP TYPE: Lesion OTHR DR: Dr. Teresa Boggs DO Tissues: A - Skin of postauricular region B - Skin of external ear, NOS Procedures: Frozen Section (charge) Surgery Specimen Level IV HEADER OPERATION: Excision lesion postauricular area with extension onto posterior PRE-OP DIAGNOSIS: Lesion left ear postauricular TISSUE SUBMITTED: A ? Lesion left ear postauricular, suture marked at 12 o?clock, FS, B ? Additional tissue, basal cell carcinoma left ear postauricular, suture marked at 12 o?clock FROZEN SECTION DIAGNOSIS A. Lesion, left postauricular ear, biopsy: Basal cell carcinoma. SJ:an 07/15/2022 MICROSCOPIC DIAGNOSIS A. Lesion left postauricular ear, biopsy: Basal cell carcinoma, completely excised. B. Additional tissue left ear: Negative for carcinoma. Focal sebaceous hyperplasia. SJ:an 07/17/2022 MICROSCOPIC DESCRIPTION Slides are reviewed. GROSS DESCRIPTION A - Received fresh for frozen section diagnosis labeled with the patient's name is a specimen designated lesion left postauricular ear. The specimen consists of a round piece of [place]-white skin measuring 1.1 x 1.1 cm and up to 0.1 cm in thickness. The specimen is oriented by a suture at 12 o?clock. The specimen is inked as follows: 12 to 3 o'clock - black, 3 to 6 o'clock - blue, 6 to 9 o'clock - green and 9 to 12 o'clock - yellow. The specimen is serially sectioned and submitted entirely for frozen section diagnosis in one cassette. / SJ:an 07/15/2022 B - Received in fixative is one container labeled with the patient's name and designated additional tissue left ear postauricular basal cell carcinoma, suture at 12 o?clock. The specimen consists of a clive-shaped piece of [place]-white skin measuring 2.2 x 2.2 cm and up to 0.2 cm in thickness. There is a central ring-shaped defect noted measuring 1.5 cm in diameter. The specimen is oriented by a suture at 12 o?clock. The specimen is inked as follows: 12 to 3 o'clock - black, 3 to 6 o'clock - blue, 6 to 9 o'clock - green and 9 to 12 o'clock - yellow. Inner ring-shaped defect is inked red. The specimen is serially sectioned and submitted entirely in two cassettes. / SJ:an 07/16/2022 TC:0 CPT: 87311 x2, [id number]
[2022-07-15] MEDS: Lactated Ringers 1,000 ML 15 ML IV (06:58)
[2022-07-15] MEDS: Clindamycin 900 MG/50 ML BAG 75 MG IV (07:40)
[2022-07-15] MEDS: Mupirocin Ointment 22gm Tube 1 APPLIC (08:45)
[2022-07-15] MEDS: Lidocaine 1% /Epi 1:100 (20ml) 20 ML Vial (08:45)
--- NOTE | 2022-07-15 09:24 | PCM.OPRPT ---
Problems Associated Problem List Diagnoses (1) 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: (2) Neoplasm of skin of ear: (3) Former smoker: (4) Personal history of skin cancer: Report of Operation Date of Procedure: 07/15/22 Pre-Operative Diagnosis: 1. 1.1 cm lesion left postauricular area with extension to the posterior ear, clinically a squamous cell carcinoma. 2. Personal history of skin cancer. 3. Former smoker. Post-Operative Diagnosis: 1. 1.1 cm basal cell carcinoma left postauricular area with extension to the posterior ear. 2. Personal history of skin cancer. 3. Former smoker. Surgery/Procedure Performed:: Excision 1.1 cm basal cell carcinoma left postauricular area with extension to the posterior ear with rhomboid transposition skin flap reconstruction (10.58 cm2). Description of Surgical Findings:: 66 year old woman presents for evaluation for TBSE.? Her PCP is treating lesions on her nasal dorsum and left neck and left postauricular area with extension to the posterior ear with freezing.? The lesions have responded except for the one on the left postauricular area with extension to the posterior ear which has enlarged.? It also intermittently scabs over.? She did have a basal cell carcinoma excised from her right neck in May,.? She denies fever.? She denies trauma.? She denies any infection. She denies any bleeding or drainage.? She presents today for further evaluation and treatment. Patient was informed of the risks and complications of the procedure including alternatives to surgery. These were discussed with the patient personally. Patient voices understanding and wishes to proceed. Some of the risks and complications were included in a form from the [employer]. Frozen section left postauricular area with extension to the posterior ear - basal cell carcinoma. 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 Scabby erythematous lesion left postauricular area with extension to posterior ear to Pathology as a frozen section. 2. Basal cell carcinoma left postauricular area with extension to posterior ear to Pathology. Drains: None. Estimated Blood Loss (mL): 10. Description of Procedure: Patient was taken to OR in supine position and was placed under general anesthesia. The left ear and postauricular and neck areas were was prepped and draped in the usual fashion. SCD's were placed for DVT prophylaxis. Perioperative antibiotics were given intravenously. Using xylocaine with epinephrine, the scabby erythematous lesion was infiltrated. I placed 5-0 Prolene sutures to help retract the ear out of the way during the procedure. After waiting 5 minutes for the anesthetic to take effect, a full thickness excision was made in a circular fashion with a 1 mm margin in all directions down into the subcutaneous tissue. A suture was marked at 12 oclock position for pathology orientation. The lesion was sent to Pathology as a frozen section for analysis to rule out carcinoma. Clinically, I felt there may be a squamous cell carcinoma component so a full thickness excision would be able to show invasion if present. Frozen section showed it was a basal cell carcinoma. Further excision was then done to provide a margin of 5 mm in all directions. The extra margin was marked out in a rhomboid fashion. A suture was marked at 12 oclock position for Pathology orientation. The lesion was then sent to Pathology for analysis to rule out carcinoma at the margins. Inferiorly, a rhomboid flap was then designed adjacent to the wound defect. Incisions were made and the flap was elevated on a subcutaneous pedicle close to the underlying muscular fascia to minimize injury to the lesser occipital nerve and greater auricular nerve. Hemostasis was obtained with electrocautery. The flap was transposed into the wound defect with minimal tension and minimal distortion. The wound was closed in a layered fashion after transposing the flap into the wound with 5-0 Monocryl interrupted sutures for the deep dermis and subcutaneous tissue. The skin was approximated with 5-0 Prolene simple interrupted sutures. Part of the flap extended onto the posterior ear and that portion of the flap, I used 5-0 Monocryl interrupted sutures for skin approximation. Steri-strips were applied followed by antibiotic ointment and 2x2 gauze dressing. The size of the wound defect and the size of the flap needed to close the defect was 10.58 cm2. Patient tolerated the procedure well and was sent to PACU in satisfactory condition. Patient will be sent home on antibiotics and pain medication. She will keep her head elevated during the initial postoperative period. Patient will followup in a week for a wound check and for discussion of the pathology report and for removal of the sutures. Grafts/Implants Used: None. Procedure Start Time: 07:59 Procedure Stop Time: 09:12 Complications None. Admit VTE Documentation VTE Present on Admission: No VTE Mechan Device Prophylaxis: SCD's VTE Pharm Prophylaxis ordered?: No Addendum Addendum: Surgery Charges CPT - 80009 ICD-10 - C44.219, D49.2, Z80.8, Z87.891
--- NOTE | 2022-07-15 09:25 | DCINST_ITS ---
Discharge Instructions Diet Discharge Diet: No restrictions Activity Discharge Activity: May Shower (in two days.) and - (no heavy lifting. keep head elevated.) May shower in (days): 2 May resume sexual activity in: No Restrictions Weight Bearing Status: Weight bearing as tolerated Lifting Restrictions: 20 lbs. Keep extremity elevated above heart level: - (elevate head.) Dressing / Incision Call your doctor if your incision/area has: Continuous Slow Oozing, Sudden Increased Bleeding, Increased Pain/ Swelling, Increased Redness, Foul Smelling Discharge and Swelling at the incision site Call your doctor if you observe: Fever of 101 or Higher, Coldness, Increased Pain, Shortness of breath, Chest pain, Calf discomfort and Uncontrolled pain Suture Line Care: - (after the operative dressing is removed, (may remove in two days), apply antibiotic ointment to suture line daily.) Remove Dressing in: 2 days (may remove operative dressing in two days. will remove the steri-strips in the office. if the steri-strips start to come loose, may pull them off.) Cleanse incision/area with: Soap & Water (may get incision wet in the shower in two days.) Follow Up Care Please Follow Up With: Carlos Peoples MD When: one week. call [phone] for appt. Test Results: Test results from this visit will be discussed in further detail at your follow- up appointment, if applicable. Discharge Plan Admission Primary Reason for Your Visit: excision basal cell carcinoma left postauricular area. Attending Provider: Carlos Peoples Primary Care Provider: Teresa Boggs Discharge Orders/Prescriptions Prescriptions: New clindamycin HCl [Cleocin HCl] 300 mg capsule 300 mg PO TID Qty: 12 0RF L.acidoph,saliva-B.bif-S.therm [Acidophilus Probiotic Blend] 175 mg capsule 1 cap PO DAILY Qty: 10 0RF oxycodone-acetaminophen [Percocet] 5-325 mg tablet 1 tab PO Q6H PRN (Reason: pain (scale score 7-10)) 7 Days Qty: 28 0RF Rx Instructions: 28 tabs (twenty-eight) Continued magnesium oxide 400 mg magnesium capsule 400 mg PO DAILY liothyronine 5 mcg tablet 5 mcg PO SUMOWEFR Label Comments: take 1 tablet by mouth once daily ON WEDNESDAY, WEDNESDAY, WEDNESDAY, S... (REFER TO PRESCRIPTION NOTES). cyclobenzaprine 5 mg tablet 5 mg PO PRN PRN (Reason: Muscle Pain) Label Comments: take 1-2 tablet by mouth every 8 hours if needed muscle spasm calcium carbonate-vitamin D3 500 mg(1,250mg) -50 unit capsule 1 cap PO DAILY ecnnxyqmll-imqzjkteowzm-chxsbk 100-500-50 mg capsule 1 cap PO DAILY duloxetine 60 mg capsule,delayed release(DR/EC) 60 mg PO DAILY levothyroxine 50 mcg tablet 50 mcg PO MOTUWETHFRSA buspirone 5 MG tablet 10 mg PO TID Label Comments: MENTAL HEALTH multivitamin with folic acid 1 TABLET tablet 1 tab PO DAILY Label Comments: SUPPLEMENT omega-3 fatty acids 500 MG capsule 1,500 mg PO DAILY Label Comments: SUPPLEMENT aspirin 81 MG tablet,chewable 81 mg PO DAILY@0800 Label Comments: HEART HEALTH-LAST DOSE 07/10/22 cetirizine 10 MG capsule 10 mg PO DAILY nitroglycerin 0.4 mg tablet, sublingual 0.4 mg SUBLINGUAL Q5-15M PRN (Reason: Chest Pain) Qty: 25 6RF metoprolol tartrate 50 mg tablet 50 mg PO BID Qty: 180 3RF pravastatin 80 mg tablet 80 mg PO QHS Qty: 90 3RF clopidogrel 75 mg tablet 75 mg PO DAILY Qty: 90 3RF spironolactone [Aldactone] 25 mg tablet 25 mg PO DAILY Qty: 90 3RF amlodipine 10 mg tablet 10 mg PO DAILY Qty: 90 3RF Label Comments: BLOOD PRESSURE isosorbide mononitrate 30 mg tablet extended release 24 hr 30 mg PO BID Qty: 180 3RF Referrals / Follow Up: Carlos Peoples MD [Med Staff - Active Staff] - (followup one week.) Teresa Boggs DO [Primary Care Provider] - Disposition Disposition (needs filled in before D/C Order can be placed): Home, Self Care
== END 2022-07-15 11:15 | disposition home or self-care (01) ==
LOC: SDC 06:02 → AC 06:03
PROVIDERS: PCP Family Medicine; Referring Provider Surgery; Visit Provider Surgery
PROC: (CPT 14061; principal; 2022-07-15 07:15)
DX: C44.219 Basal cell carcinoma of skin of left ear and external auricular canal (principal); I11.0 Hypertensive heart disease with heart failure; I50.32 Chronic diastolic (congestive) heart failure; F31.9 Bipolar disorder, unspecified; I25.119 Atherosclerotic heart disease of native coronary artery with unspecified angina pectoris; I25.2 Old myocardial infarction; M79.7 Fibromyalgia; E78.5 Hyperlipidemia, unspecified; E03.9 Hypothyroidism, unspecified; G47.33 Obstructive sleep apnea (adult) (pediatric); Z95.1 Presence of aortocoronary bypass graft; Z95.5 Presence of coronary angioplasty implant and graft; Z79.02 Long term (current) use of antithrombotics/antiplatelets; Z79.82 Long term (current) use of aspirin; Z79.899 Other long term (current) drug therapy; Z86.73 Personal history of transient ischemic attack (TIA), and cerebral infarction without residual deficits; Z87.891 Personal history of nicotine dependence; Z80.8 Family history of malignant neoplasm of other organs or systems
CPT/HCPCS: 14061; 00300; 88305; 88331; J7120; J2405

== ENCOUNTER → 2022-07-30 | Outpatient (CLI) | payer MEDICARE, SELFPAY ==
[2022-04-30 10:36] VITALS: BMI 31.4
[2022-07-30 11:39] LABS: Free T3 1.9 pg/mL (2.18-3.98); T4 Free Direct 0.81 ng/dL (0.76-1.46); Thyroid Stim Hormone (TSH) 2.49 uIU/mL (0.358-3.74)
== END | disposition home or self-care (01) ==
PROVIDERS: PCP Family Medicine; Referring Provider Family Medicine; Visit Provider Family Medicine
DX: E03.9 Hypothyroidism, unspecified (principal)
CPT/HCPCS: 36415; 84439; 84443; 84481

== ENCOUNTER → 2022-09-22 | Outpatient (CLI) | payer MEDICARE, SELFPAY ==
[2022-04-30 10:36] VITALS: BMI 31.4
[2022-09-22 12:51] LABS: Erythrocyte Sedimentation Rate 5 mm/hr (0-30)
[2022-09-22 13:29] LABS: ALB/GLOB Ratio 1.2 RATIO (0.9-2.4); AST(SGOT) 21 U/L (15-37); Alanine Aminotransfer ALT/SGPT 25 U/L (13-56); Alkaline Phosphatase 59 U/L (45-117); Anion Gap 6 (5-15); BUN 21 mg/dL (7-18); BUN/Creat Ratio 16.5 RATIO (10-20); CRP < 2.90 mg/L (0.0-3.0); Calcium,Total 9.5 mg/dL (8.5-10.1); Chloride 104 mmol/L (98-107); Creatinine, Serum 1.27 mg/dL (0.55-1.02); EST Glomerular Filtration Rate 45 mL/min (>60); Est Glom Filt Rate - Afr Amer 54 mL/min (>60); Free T3 2.4 pg/mL (2.18-3.98); Globulin 3.2 g/dL (2.2-4.2); Glucose 103 mg/dL (74-106); Magnesium 2.5 mg/dL (1.6-2.6); Potassium 4.4 mmol/L (3.5-5.1); Protein, Total 7.2 g/dL (6.4-8.2); Sodium Level 135 mmol/L (136-145); T4 Free Direct 0.82 ng/dL (0.76-1.46); Thyroid Stim Hormone (TSH) 2.39 uIU/mL (0.358-3.74)
== END | disposition home or self-care (01) ==
LOC: LAB 11:34
PROVIDERS: PCP Family Medicine; Referring Provider Family Medicine; Visit Provider Family Medicine
DX: E03.9 Hypothyroidism, unspecified (principal); M79.10 Myalgia, unspecified site; R53.83 Other fatigue
CPT/HCPCS: 36415; 80053; 83735; 84439; 84443; 84481; 85652; 86140

== ENCOUNTER 2022-10-19 06:42 | Day surgery (SDC) | payer MEDICARE, SELFPAY ==
[2022-04-30 10:36] VITALS: BMI 31.4
--- NOTE | 2022-10-19 07:10 | HP.PCM_ITS ---
[facility] - General General Date of Admission: 10/19/22 Date of Service: 10/19/22 Chief Complaint: Screening colonoscopy [facility] Narrative NISSA TROTTER, is a 67 F who presents today for screening colonoscopy. She has a past medical history of adenomatous polyps. Last colonoscopy was in 2016. She had 1 polyp at that time. She has a family history of colon cancer in her other. Past medical history is positive for coronary artery bypass surgery in 2007, hypertension, hyperlipidemia, basal cell carcinoma status post removal. She is not having any problems with her bowels at this time. She not have any nausea, vomiting or diarrhea. She tolerated the prep without any problems. [facility] Medical History (Updated 10/12/22 @ 13:04 by Antonia Grover) Actinic keratoses Alcohol abuse Allergies Anxiety Anxiety and depression Arthritis Atherosclerosis of coronary artery of [place] heart with angina pectoris Back pain 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 Basal cell carcinoma of neck Bipolar 1 disorder Blurred vision, bilateral Cancer Cardiology follow-up encounter Chronic diastolic (congestive) heart failure CPAP (continuous positive airway pressure) dependence CVA (cerebral vascular accident) Depression Easy bruising Essential (primary) hypertension Fibromyalgia Former smoker GERD (gastroesophageal reflux disease) High triglycerides History of atrial fibrillation History of echocardiogram History of heart attack History of IBS History of steroid therapy History of stress test Hyperlipidemia Hypertension Hypothyroidism IBS (irritable bowel syndrome) Myocardial infarct Neoplasm of skin of ear Non-rheumatic tricuspid valve insufficiency ELODIA (obstructive sleep apnea) Osteoarthritis Personal history of skin cancer Post traumatic stress disorder (PTSD) Post-menopausal Seizure disorder Slurred speech Subluxation of left thumb Thyroid disease TIA (transient ischemic attack) Wears glasses Wears partial dentures Home Medications buspirone 5 mg tablet 10 mg PO TID MENTAL HEALTH 02/03/14 [History Last Taken 07/15/22 05:00] multivitamin with folic acid 400 mcg tablet 1 tab PO DAILY SUPPLEMENT 02/03/14 [History Last Taken 11/02/19] omega-3 fatty acids 500 mg capsule 1,500 mg PO DAILY SUPPLEMENT 10/20/15 [History Last Taken 11/02/19] aspirin 81 mg chewable tablet 81 mg PO DAILY@0800 ANTIPLATELET 09/24/16 [History Last Taken 07/07/22] cetirizine 10 mg capsule 10 mg PO DAILY 11/02/19 [History Last Taken 11/02/19] magnesium oxide 400 mg PO DAILY 05/01/20 [History Last Taken Unknown] nitroglycerin 0.4 mg sublingual tablet 0.4 mg sublingual Q5-15M PRN Chest Pain #25 tabs 07/02/21 [Rx Last Taken Unknown] metoprolol tartrate 50 mg tablet 50 mg PO BID #180 tabs 12/01/21 [Rx Last Taken 07/15/22 05:00] pravastatin 80 mg tablet 80 mg PO QHS CHOLESTEROL #90 tabs 01/05/22 [Rx Last Taken Unknown] clopidogrel 75 mg tablet 75 mg PO DAILY antiplatelet #90 tabs 01/12/22 [Rx Last Taken 07/07/22] spironolactone 25 mg tablet (Aldactone) 25 mg PO DAILY #90 tabs 01/27/22 [Rx Last Taken Unknown] cyclobenzaprine 5 mg tablet 5 mg PO PRN PRN Muscle Pain 05/06/22 [History Last Taken Unknown] liothyronine 5 mcg tablet 5 mcg PO SUMOWEFRSA thyroid 05/06/22 [History Last Taken Unknown] calcium carbonate-vitamin D3 500 mg (1,250 mg)-50 unit capsule 1 cap PO DAILY 06/08/22 [History Last Taken Unknown] ilojczyaeq-zgrhkyzezevk-kfmddk 100 mg-500 mg-50 mg capsule 1 cap PO DAILY 06/08/22 [History Last Taken Unknown] amlodipine 10 mg tablet 10 mg PO DAILY #90 tabs 06/12/22 [Rx Last Taken 07/15/22 05:00] isosorbide mononitrate 30 mg tablet,extended release 24 hr 30 mg PO BID #180 tabs 06/15/22 [Rx Last Taken 07/15/22 05:00] duloxetine 60 mg capsule,delayed release 60 mg PO DAILY 07/10/22 [History Last Taken 07/15/22 05:00] levothyroxine 50 mcg tablet 50 mcg PO MOTUWETHFRSA 07/10/22 [History Last Taken 07/15/22 05:00] Allergy/AdvReac Type Severity Reaction Status Date / Time adhesive tape Allergy Rash Verified 10/12/22 12:48 doxazosin Allergy DROPS Verified 10/12/22 12:48 HEART RATE furosemide [From Lasix] Allergy Itching Verified 10/12/22 12:48 latex Allergy Rash Verified 10/12/22 12:48 lisinopril Allergy Angioedema Verified 10/12/22 12:48 codeine AdvReac Itching Verified 10/12/22 12:48 oxycodone HCl [From Percocet] AdvReac Itching Verified 10/12/22 12:48 tramadol HCl [From Ultram] AdvReac Itching Verified 10/12/22 12:48 Family History (Updated 10/08/22 @ 16:23 by Darshana Espinoza) Father CAD (coronary artery disease) Hypertension Mother CAD (coronary artery disease) Hypertension Colon cancer Sister Hypertension Other Alcoholism Anxiety Arthritis Depression Heart disease Surgical History (Updated 10/12/22 @ 12:54 by Antonia Grover) H/O coronary artery bypass surgery (10/21/07) History of basal cell carcinoma excision History of coronary artery stent placement History of esophagogastroduodenoscopy (EGD) History of excision of lesion History of left heart catheterization (03/25/20) Hx of foot surgery Hx of foot surgery Hx of surgical procedure Social History Smoking Status: Former smoker alcohol intake: former details: Participates in AA substance use type: does not use what type of physical activity do you participate in: walking seatbelt use: always do you feel safe at home: Yes additional social history: disability- retired Does Take Aspirin As Needed Does Not Take Ibuprofen ROS Review of Systems ROS Unobtainable: other Constitutional Constitutional: Denies fatigue, fever(s), poor appetite, weight gain or weight loss ENT HEENT: Denies mouth lesions Cardiovascular Cardiovascular: Denies abdominal bloating, abdominal edema or abdominal pain Respiratory/Chest Respiratory/Chest: Denies change in mental status, change in phlegm color, chest congestion or chest tightness Gastrointestinal Gastrointestinal: Denies belching, bloating, change in bowel habits, change in stool character, chewing difficulty, coffee ground emesis, constipation, cramping, diarrhea, dyspepsia, dysphagia, early satiety, excessive flatus, fecal incontinence, heartburn, hematemesis, hematochezia, hemorrhoids, loose stools, melena, nausea, odynophagia, rectal bleeding, tenesmus, vomiting or weight changes Genitourinary Genitourinary: Denies abdominal discomfort, burning urination or itching Musculoskeletal Musculoskeletal: Reports as per HPI; Denies muscle weakness or myalgias Integumentary Integumentary: Denies jaundice Neurologic Neurologic: Denies lack of coordination or weakness Psychiatric Psychiatric: Denies confusion, depression, memory loss, mood swings, paranoia or suicidal ideation Endocrine Endocrinology: Denies systems reviewed and no addt'l complaints, except as documented Hematologic/Lymphatic Hematologic/Lymphatic: Denies anemia, easy bleeding, easy bruising or lymphadenopathy Allergic/Immunologic Allergic/Immunologic: Denies systems reviewed and no addt'l complaints, except as documented Physical Exam Const alert General Appearance: cooperative Orientation / Consciousness: oriented to person HEENT hearing grossly normal bilaterally Head and Scalp: normal to inspection Face and Sinus: face symmetric Nose: external nose normal Mouth: oral and palatal mucosa normal Eyes conjunctivae normal General Eye: normal appearance of both eyes Neck full ROM General: normal visual inspection Lymph Lymphatic: no lymphadenopathy noted Chest inspection of chest normal and palpation of chest normal Chest: symmetrical chest wall rise Resp normal respiratory effort Effort and Inspection: able to speak in complete sentences Cardio regular rate GI non-distended Percussion: normal to percussion Rectal Exam: deferred Neuro Speech: speech normal Gait (Neuro): normal gait Assessment & Plan Assessment/Plan (1) Encounter for screening for malignant neoplasm of colon: PLAN: She will undergo her surveillance colonoscopy. She was explained alternatives, risk, benefits include not withstanding bleeding, infection, sepsis, perforation, need for emergent surgery . She will have an ASA of 3.
[2022-10-19] MEDS: Lactated Ringers 1,000 ML 15 ML IV (07:13)
[2022-10-19 07:14] VITALS: BP 128/61; PULSE 64; RESP 18; TEMP 36.4; O2SAT 100; BMI 31.5
[2022-10-19 08:20] VITALS: BP 128/61; BP 95/58; PULSE 61; RESP 16; TEMP 36.1; O2SAT 100
--- NOTE | 2022-10-19 08:20 | OP.CCLET_ITS ---
10/19/2022 Teresa Boggs [address] [place] [address] Re : Colonoscopy procedure for Lana Muse Dear Dr. Boggs This procedure was performed on Wednesday, October 19, 2022. My impressions and recommendations are as follows: Impressions : - Diverticulosis in the recto-sigmoid colon, in the sigmoid colon, in the transverse colon and in the ascending colon. - No specimens collected. Recommendations : - Discharge patient to home. - Resume previous diet. - Continue present medications. - Repeat colonoscopy in 5 years for surveillance. My findings are described in the full procedure note, which is enclosed. If I can be of further assistance, please feel free to contact me at . Sincerely, Dagoberto Erwin, 10/19/2022 8:19:39 AM This report has been signed electronically.
--- NOTE | 2022-10-19 08:20 | OP.COLON_ITS ---
Patient Name: Lana Muse Procedure Date: 10/19/2022 7:53 AM Date of : 1955 Age: 67 Procedure: Colonoscopy Indications: High risk colon cancer surveillance: Personal history of colonic polyps Providers: Dagoberto Erwin DO Referring MD: Dagoberto Erwin DO Medicines: Monitored Anesthesia Care Patient Profile: This is a 67 year old female. Refer to note in patient chart for documentation of history and physical. Last Colonoscopy: several years ago. Complications: No immediate complications. Procedure: Pre-Anesthesia Assessment: - Prior to the procedure, a History and Physical was performed, and patient medications and allergies were reviewed. The patient is competent. The risks and benefits of the procedure and the sedation options and risks were discussed with the patient. All questions were answered and informed consent was obtained. Patient identification and proposed procedure were verified by the physician in the pre-procedure area. Mental Status Examination: alert and oriented. Airway Examination: normal oropharyngeal airway and neck mobility. Respiratory Examination: clear to auscultation. CV Examination: normal. Prophylactic Antibiotics: The patient does not require prophylactic antibiotics. Prior Anticoagulants: The patient has taken no previous anticoagulant or antiplatelet agents. After reviewing the risks and benefits, the patient was deemed in satisfactory condition to undergo the procedure. The anesthesia plan was to use monitored anesthesia care (MAC). Immediately prior to administration of medications, the patient was re-assessed for adequacy to receive sedatives. The heart rate, respiratory rate, oxygen saturations, blood pressure, adequacy of pulmonary ventilation, and response to care were monitored throughout the procedure. The physical status of the patient was re-assessed after the procedure. After I obtained informed consent, the scope was passed under direct vision. Throughout the procedure, the patient's blood pressure, pulse, and oxygen saturations were monitored continuously. The pediatric colonoscope was introduced through the anus and advanced to the cecum, identified by appendiceal orifice and ileocecal valve. The colonoscopy was performed without difficulty. The patient tolerated the procedure well. The quality of the bowel preparation was adequate. Scope In: 8:02:56 AM Scope Withdrawal Time 0 hours 6 minutes 16 seconds Scope Out: 8:13:32 AM Total Procedure Duration Time 0 hours 10 minutes 36 seconds Findings: The perianal and digital rectal examinations were normal. A few small and large-mouthed diverticula were found in the recto-sigmoid colon, sigmoid colon, transverse colon and ascending colon. No additional abnormalities were found on retroflexion. Impression: - Diverticulosis in the recto-sigmoid colon, in the sigmoid colon, in the transverse colon and in the ascending colon. - No specimens collected. Recommendation: - Discharge patient to home. - Resume previous diet. - Continue present medications. - Repeat colonoscopy in 5 years for surveillance. Procedure Code(s): --- Professional --- G0105, Colorectal cancer screening; colonoscopy on individual at high risk CPT copyright 2017 [employer]. All rights reserved. The codes documented in this report are preliminary and upon insurance sales producer review may be revised to meet current compliance requirements. Dagoberto Erwin DO 10/19/2022 8:19:39 AM This report has been signed electronically. Number of Addenda: 0 Note Initiated On: 10/19/2022 7:53 AM
[2022-10-19 08:25] VITALS: BP 128/61; BP 98/57; PULSE 58; RESP 16; O2SAT 100
[2022-10-19 08:30] VITALS: BP 109/55; BP 128/61; PULSE 55; RESP 16; O2SAT 100
[2022-10-19 08:35] VITALS: BP 114/58; BP 128/61; PULSE 56; RESP 16; TEMP 36.1; O2SAT 98
[2022-10-19 08:52] VITALS: BP 128/61
== END 2022-10-19 09:06 | disposition home or self-care (01) ==
LOC: EN 06:45 → AC 06:45
PROVIDERS: PCP Family Medicine; Referring Provider Family Medicine; Visit Provider Internal Medicine Gastroenterology
PROC: 0DJD8ZZ Inspection of Lower Intestinal Tract, Via Natural or Artificial Opening Endoscopic (ICD-10-PCS; CPT 45378; principal; 2022-10-19 07:55)
DX: Z12.11 Encounter for screening for malignant neoplasm of colon (principal); I11.0 Hypertensive heart disease with heart failure; I50.32 Chronic diastolic (congestive) heart failure; F31.9 Bipolar disorder, unspecified; K57.30 Diverticulosis of large intestine without perforation or abscess without bleeding; E78.5 Hyperlipidemia, unspecified; I25.10 Atherosclerotic heart disease of native coronary artery without angina pectoris; G47.33 Obstructive sleep apnea (adult) (pediatric); I25.2 Old myocardial infarction; M50.30 Other cervical disc degeneration, unspecified cervical region; E03.9 Hypothyroidism, unspecified; Z86.73 Personal history of transient ischemic attack (TIA), and cerebral infarction without residual deficits; Z95.5 Presence of coronary angioplasty implant and graft; Z95.1 Presence of aortocoronary bypass graft; Z79.899 Other long term (current) drug therapy; Z79.82 Long term (current) use of aspirin; Z80.0 Family history of malignant neoplasm of digestive organs; Z86.010 Personal history of colon polyps; Z87.891 Personal history of nicotine dependence
CPT/HCPCS: G0105; J7120; J2405

== ENCOUNTER → 2022-12-31 | Outpatient (CLI) | payer MEDICARE, SELFPAY ==
[2022-04-30 10:36] VITALS: BMI 31.4
--- NOTE | 2022-12-31 12:46 | BI_ITS ---
MAMMOGRAPHY - BILATERAL SCREENING REASON FOR EXAM: Female, 67 years old. Routine annual screening examination. PERTINENT HISTORY: Non-contributory. TECHNIQUE: Digital bilateral breast connor (3D mammographic acquisition) in the CC and MLO projections. 2-D mediolateral oblique (MLO) and craniocaudad (CC) views of both breasts were obtained. CAD: Full Field Digital Mammography with Computer Added Detection was performed. COMPARISON: Comparison is made with prior study dated December 26, 2021 and December 25, 2020. FINDINGS: Breast Composition: The breasts are almost entirely fatty. There are no dominant masses or suspicious calcifications. No other significant abnormalities are identified. There has been no significant change since the prior study. BI/SCRN MAMM (CAD)W/CONNOR BILAT IMPRESSION: Stable bilateral screening mammogram. Yearly follow-up mammogram recommended. (A) ASSESSMENT CATEGORY: BIRADS Category 1: Negative. A letter regarding these results will be sent to the patient by the facility within 30 days. Approximately 10% of breast cancers are not detected by mammography. A normal mammogram should not delay biopsy of a clinically suspicious abnormality. [id number] Electronically Signed: Dwight Bautista MD at 14:49 EDT ,
== END | disposition home or self-care (01) ==
LOC: OPBI 12:44
PROVIDERS: PCP Family Medicine; Referring Provider Family Medicine; Visit Provider Family Medicine
DX: Z12.31 Encounter for screening mammogram for malignant neoplasm of breast (principal)
CPT/HCPCS: 77063; 77067

== ENCOUNTER → 2023-01-07 | Outpatient (CLI) | payer MEDICARE, SELFPAY ==
[2022-04-30 10:36] VITALS: BMI 31.4
[2023-01-07 09:56] LABS: AST(SGOT) 25 U/L (15-37); Alanine Aminotransfer ALT/SGPT 23 U/L (13-56); Alkaline Phosphatase 67 U/L (45-117); Bilirubin, Direct 0.16 mg/dL (0.00-0.30); Cholesterol 193 mg/dL (200); Globulin 3.7 g/dL (2.2-4.2); High Density Lipoprotein 54 mg/dL; Protein, Total 7.7 g/dL (6.4-8.2); Triglycerides 277 mg/dL; Very Low Density Lipoprotein 55 mg/dL (5-40)
[2023-01-07 11:43] LABS: Absolute Lymphocyte Count 1.96 X10^3/uL (0.83-4.51); Absolute Neutrophil Count 3.9 X10^3/uL (2.0-7.7); Basophil# 0.05 X10^3/uL; Basophil% 0.7 % (0-1); Eosinophils% 4.5 % (0-5); Hematocrit 42.2 % (37-47); Hemoglobin 14.3 g/dL (12.0-15.0); Lymphocyte # 1.96 X10^3/ul (0.83-4.51); Lymphocyte % 29.3 % (19-41); Mean Corp Hgb Conc 33.9 g/dL (32-36); Mean Corpuscular Hgb 32.9 pg (27.0-32.0); Mean Corpuscular Volume 97.2 fL (81-99); Mean Platelet Vol. 9.4 fl (6.2-12.0); Monocyte% 7.5 % (0-10); NRBC Flagged by Analyzer 0 % (0-5); Neutrophil # 3.85 X10^3/uL (2.7-7.7); Neutrophil % 57.7 % (47-70); Platelet Count 308 K/mm3 (150-450); RBC Distribution Width CV 12.3 % (11.6-14.6); RBC Distribution Width SD 44.7 fl (35.1-43.9); Red Blood Count 4.34 M/mm3 (4.2-5.4); White Blood Count 6.7 K/mm3 (4.4-11.0)
[2023-01-07 12:03] LABS: BNP,B-Type NATRIURETIC PEPTIDE 107.4 pg/mL (0-100)
[2023-01-07 12:14] LABS: Anion Gap 11 (5-15); BUN 26 mg/dL (7-18); Calcium,Total 10.2 mg/dL (8.5-10.1); Chloride 104 mmol/L (98-107); Creatinine, Serum 1.18 mg/dL (0.55-1.02); EST Glomerular Filtration Rate 48 mL/min (>60); Est Glom Filt Rate - Afr Amer 59 mL/min (>60); Free T3 2.4 pg/mL (2.18-3.98); Glucose 93 mg/dL (74-106); Magnesium 2.7 mg/dL (1.6-2.6); Potassium 3.9 mmol/L (3.5-5.1); Sodium Level 139 mmol/L (136-145); T4 Free Direct 0.86 ng/dL (0.76-1.46)
== END | disposition home or self-care (01) ==
PROVIDERS: Nurse Practitioner Gerontology; PCP Family Medicine; Referring Provider Internal Medicine Cardiovascular Disease; Visit Provider Internal Medicine Cardiovascular Disease
DX: E78.00 Pure hypercholesterolemia, unspecified (principal); R06.09 Other forms of dyspnea; R53.83 Other fatigue
CPT/HCPCS: 36415; 80048; 80061; 80076; 83735; 83880; 84439; 84443; 84481; 85025

== ENCOUNTER → 2023-01-15 | Outpatient (CLI) | payer MEDICARE, SELFPAY ==
[2022-04-30 10:36] VITALS: BMI 31.4
--- NOTE | 2023-01-15 06:06 | CDU_ITS ---
Reason For Study: DIZZINESS Rt. Velocities/BP Lt. Velocities/BP Prox CCA 62.0/11.0 cm/sec. Prox CCA 87.9/14.2 cm/sec. Mid CCA 62.9/16.6 cm/sec. Mid CCA 108.9/23.0 cm/sec. Dist CCA 58.2/15.7 cm/sec. Dist CCA 105.8/21.7 cm/sec. Prox ICA 55.4/15.7 cm/sec. Prox ICA 72.3/19.5 cm/sec. Mid ICA 69.5/18.5 cm/sec. Mid ICA 82.1/22.0 cm/sec. Dist ICA 102.7/21.6 cm/sec. Dist ICA 88.3/28.1 cm/sec. Rt. ICA/CCA = 102.7/62.9=1.6. Lt. ICA/CCA = 88.3/108.9=0.8. Prox ECA 200.4/9.4 cm/sec. Prox ECA 203.3/14.5 cm/sec. Rt. Vert. 19.6/6.5 cm/sec. Lt. Vert. 49.0/18.3 cm/sec. Right Extracranial There is heterogeneous, smooth atherosclerotic plaque noted in the right common carotid artery. There is heterogeneous, irregular atherosclerotic plaque noted in the right internal carotid artery. There is heterogeneous, irregular atherosclerotic plaque noted in the right external carotid artery. Antegrade flow is noted in the right vertebral artery. Left Extracranial There is heterogeneous, irregular atherosclerotic plaque noted in the left common carotid artery. There is heterogeneous, irregular atherosclerotic plaque noted in the left internal carotid artery. There is heterogeneous, irregular atherosclerotic plaque noted in the left external carotid artery. Antegrade flow is noted in the left vertebral artery. Procedure Carotid Duplex [id number]. This is a Carotid Duplex examination using B-mode, color flow and specral Doppler. Exam performed in department. VL/Carotid Duplex Ultrasound Interpretation Summary Minimal calcific plaque at the proximal right internal carotid artery with less than 50% stenosis Greater than 50% stenosis right external carotid artery Slightly diminished velocity although antegrade flow right vertebral Irregular plaque at the proximal left internal carotid artery with less than 50 % stenosis Greater than 50% stenosis left external carotid artery Patent and antegrade left vertebral Increased stenosis bilateral external carotid arteries since the previous exami nation of December 05, 2019 Ordering Physician: Sharla Dubois; Dustin Lemus Referring Physician: Teresa Boggs Performed By: Yari Chaudhari, SELWYN, RVT
--- NOTE | 2023-01-15 06:06 | ECHOD_ITS ---
Reason For Study: CHEST PAIN Procedure This was a 2D Doppler, Color Flow transthoracic echocardiogram. Exam performed in department. Left Ventricle Normal LV size. Left ventricular systolic function is normal. The estimated ejection fraction is 60 %. Stage 1 diastolic dysfunction. No regional wall motion abnormalities noted. Right Ventricle Normal RV size. Normal systolic function. Atria Normal left atrium. Normal right atrium. Bubble contrast study negative for right to left interatrial shunt. Mitral Valve Normal mitral valve. Mild-Moderate (1-2+) eccentric mitral valve insufficiency. Tricuspid Valve Normal tricuspid valve. Mild to moderate (1-2+) tricuspid valve insufficiency. Pulmonary artery systolic pressure is 30 mmHg. Aortic Valve Normal aortic valve. Trisinus/trileaflet aortic valve. Pulmonic Valve Normal pulmonic valve. Great Vessels Normal aortic root. The pulmonary artery is normal size. Normal inferior vena cava. Pericardium/Pleural No pericardial effusion. Medication Performed a rapid injection of agitated mix of 9 cc saline and 1cc air to assess for atrial septal defect. MMode/2D Measurements & Calculations LVIDd: 4.6 cm IVSd: 0.99 cm Ao root diam: 3.2 cm LVIDs: 3.3 cm LVPWd: 1.0 cm RVDd: 3.8 cm FS: 29.0 % LAV(MOD-bp): 37.3 ml LVAd ap4: 25.0 cm2 SV(MOD-sp4): 42.0 ml LAV(MOD-bp) Indexed: 21.1 ml/m2 LVLd ap4: 6.7 cm LAV(MOD-sp2): 34.0 ml EDV(MOD-sp4): 75.9 ml LAV(MOD-sp4): 37.2 ml EDV(sp4-el): 78.7 ml LVAs ap4: 15.1 cm2 LVLs ap4: 6.0 cm ESV(MOD-sp4): 33.9 ml ESV(sp4-el): 32.2 ml EF(MOD-sp4): 55.3 % EF(sp4-el): 59.0 % SV(sp4-el): 46.4 ml LA A4 area: 15.1 cm2 LA dimension(2D): 4.1 cm RA A4 area: 13.8 cm2 Time Measurements MV dec time: 0.16 sec Doppler Measurements & Calculations MV E max espinoza: 37.1 cm/sec Lat Peak E' Espinoza: 15.9 cm/sec Med Peak E' Espinoza: 8.3 cm/sec MV A max espinoza: 76.8 cm/sec E/E' lat: 2.3 E/E' med: 4.4 MV E/A: 0.48 Ao V2 max: 125.9 cm/sec LV V1 max: 94.1 cm/sec PA V2 max: 73.3 cm/sec Ao max P.3 mmHg LV V1 max P.6 mmHg TR max espinoza: 261.5 cm/sec TR max P.3 mmHg ECHO/Echo Complete Interpretation Summary Normal LV size. Left ventricular systolic function is normal. The estimated ejection fraction is 60 %. Bubble contrast study negative for right to left interatrial shunt. Mild-Moderate (1-2+) eccentric mitral valve insufficiency. Mild to moderate (1-2+) tricuspid valve insufficiency. Stage 1 diastolic dysfunction. Ordering Physician: Dustin Lemus MD Referring Physician: KINGS GOYAL Performed By: Cristy Pascual, SELWYN
--- NOTE | 2023-01-15 16:01 | STRESSREP ---
Stress Test Report Pharmacologic myocardial perfusion stress test. 67-year-old lady with a history of coronary artery disease Resting EKG demonstrates sinus rhythm with a rate of 93 bpm. Resting blood pressure is 142/72 mmHg. 0.4 mg of regadenoson was infused per usual protocol followed by rapid intravenous saline flush injection. Continuous EKG monitoring was performed. The maximum heart rate was 117bpm which was 76% of max impacted heart rate the maximum workload was 1 metabolic equivalent. At rest there were no ST or T wave changes noted to suggest ischemia and at peak infusion nonspecific ST changes were noted which did not meet the criteria for ischemia. No clinical angina is noted. The final blood pressure was 158/78 mmHg. She had previously been put on a treadmill stress test where she exercised for total duration of 3 minutes and 11 seconds attaining a heart rate of 136 bpm and 89% of max impacted heart rate. There were no EKG changes noted suggest ischemia occasional premature ventricular complexes were noted and some periods of bigeminy were present. Patient started complaining of dizziness and inability to walk and then had what appeared to be a presyncopal unresponsive spell though her blood pressure and heart rate were noted to be normal. Patient recovered and the aforementioned pharmacologic stress test was completed. Myocardial perfusion protocol. 11.9 mCi of technetium 99m sestamibi was injected at rest. 0.4 mg of regadenoson was infused per usual protocol. At peak infusion 33 mCi of technetium 99m sestamibi was injected stress images were obtained stress and rest images were reconstructed and compared in the short axis vertical long and horizontal long axis. Gated images were also obtained. Perfusion SPECT analysis: Review of the stress images demonstrate normal uptake of tracer noted in all areas of the myocardium. The resting images similar demonstrated normal uptake of tracer noted in all areas of the myocardium. No areas of reversibility are noted to suggest ischemia and no previous infarct is noted. Gated SPECT analysis: The gated ejection fraction is 66%. Conclusion: Normal pharmacologic myocardial perfusion stress test. Preserved ejection fraction.
== END | disposition home or self-care (01) ==
LOC: CVS 06:03
PROVIDERS: PCP Family Medicine; Referring Provider Internal Medicine Cardiovascular Disease; Visit Provider Internal Medicine Cardiovascular Disease
DX: R06.09 Other forms of dyspnea (principal); R42 Dizziness and giddiness
CPT/HCPCS: 78452; 93017; 93306; 93880; A9500; A4216; J2785

== ENCOUNTER → 2023-07-01 | Outpatient (CLI) | payer MEDICARE, SELFPAY ==
[2022-04-30 10:36] VITALS: BMI 31.4
--- OUTSIDE RECORDS SUMMARY | 2023-07-01 09:28 | XMS RPT_ITS | CCD ---
Author Name Unknown Address [address] [place] [address] Organization [facility] Care Team Providers Care Epic Radiant Analyst Name Role Phone Sejal Lyons Unavailable Unavailable Roof SED SPECIAL EDUCATION TEACHER, Carrington H Unavailable Roof SED SPECIAL EDUCATION TEACHER, Carrington H Unavailable Sejal Lyons Unavailable Unavailable Sejal Lyons Unavailable Unavailable Sejal Lyons Unavailable Unavailable Moises Muniz (Res) Primary Care Provider Unavail able Allergies Allergy Classification Reported Allergen(s) Allergy Type Date of Onset Reaction(s) Facility Acetaminophen / oxyCODONE (1 source) Acetaminophen / oxyCODONE Drug Allergy 1 Rash [facility] Adhesive Tape (1 source) Adhesive Tape Substance Allergy 8 [facility] Furosemide (1 source) Furosemide Drug Allergy 1 Itching [facility] Opioid Agonists (2 sources) Codeine Drug Allergy 7 Rash, GI Upset [facility] (6 sources) acetaminophen drug allergy 3 rash [facility] Work Phone: [phone] (6 sources) acetaminophen / oxyCODONE drug allergy 3 rash [facility] Work Phone: [phone] (6 sources) Adhesive Tape; Translations: [ADHESIVE TAPE] allergy to substance [facility] Work Phone: [phone] (6 sources) Angiotensin Converting Enzyme (Nicholas) Inhibitors drug allergy 8 angioedema [facility] Work Phone: [phone] (6 sources) apis mellifera venom; Translations: [BEE STINGS] allergy to substance 4 [facility] Work Phone: [phone] (6 sources) codeine drug allergy 3 [facility] Work Phone: (6 sources) doxazosin drug allergy 6 Heart rate dropped [facility] Work Phone: (6 sources) furosemide drug allergy 3 rash [facility] Work Phone: (6 sources) traMADol drug allergy 3 [facility] Work Phone: Medications Completed/Discontinued Medications Medication Drug Class(es) Dates Sig (Normalized) Sig (Original) acetaminophen 500 mg oral tablet (18 sources) Start: 02-28-2014 End: 11-06-2015 take 2 tablets by mouth once daily as needed TYLENOL EXTRA STRENGTH 500 MG TABS Two tablets by mouth daily as needed ACETAMINOPHEN [id number] Teresa Boggs DO ALBUTEROL SULFATE (12 sources) beta2-Adrenergic Agonist Start: 09-10-2015 End: 04-03-2016 VENTOLIN HFA 108 (90 Base) MCG/ACT AERS 2 puffs inhaled every 4-6 hours as needed ALBUTEROL SULFATE [id number] Teresa Boggs DO Problems Active Problems Problem Classification Problem Date Documented Date Episodic/Chronic Acute myocardial infarction (6 sources) Non-ST elevation (NSTEMI) myocardial infarction; Translations: [Non-ST elevation (NSTEMI) myocardial infarction] Onset: 11-15-2015 11-15-2015 Chronic Anxiety disorders (2 sources) Anxiety state; Translations: [Generalized anxiety disorder] Onset: 03-08-2007 Chronic Cancer of head and neck (6 sources) Basal cell carcinoma of neck; Translations: [Basal cell carcinoma of skin of scalp and neck] Onset: 04-15-2016 05-10-2016 Chronic Coronary atherosclerosis and other heart disease (16 sources) Coronary atherosclerosis; Translations: [Coronary arteriosclerosis] Onset: 10-19-2012 11-06-2015 Chronic Disorders of lipid metabolism (6 sources) Hyperlipidemia; Translations: [Hyperlipidemia, unspecified] Onset: 10-19-2012 10-19-2012 Chronic Esophageal disorders (7 sources) Gastroesophageal reflux disease; Translations: [Gastro-esophageal reflux disease without esophagitis] Onset: 06-28-2004 05-24-2013 Chronic Essential hypertension (8 sources) Hypertensive disorder; Translations: [Benign essential hypertension] Onset: 03-08-2007 10-19-2012 Chronic Mood disorders (2 sources) Depressive disorder; Translations: [Major depressive disorder, single episode, unspecified] Onset: 03-08-2007 Chronic Osteoarthritis (6 sources) Osteoarthritis; Translations: [Unspecified osteoarthritis, unspecified site] 05-24-2013 Chronic Other connective tissue disease (2 sources) Muscle pain; Translations: [Myalgia and myositis, unspecified] Onset: 05-28-2007 Episodic Other non-traumatic joint disorders (1 source) Arthropathy; Translations: [Arthropathy, unspecified] Onset: 05-28-2007 05-28-2007 Chronic Other nutritional; endocrine; and metabolic disorders (15 sources) Body mass index (BMI) 35.0-35.9, adult; Translations: [Body mass index (BMI) 31.0-31.9, adult] Onset: 07-28-2013 Resolved: 11-06-2015 07-28-2013 Chronic Other nutritional; endocrine; and metabolic disorders (4 sources) Body mass index (BMI) 34.0-34.9, adult; Translations: [Body mass index (BMI) 34.0-34.9, adult] Onset: 03-14-2015 03-14-2015 Chronic Other nutritional; endocrine; and metabolic disorders (3 sources) Body mass index (BMI) 31.0-31.9, adult; Translations: [Body mass index (BMI) 31.0-31.9, adult] Onset: 03-14-2015 02-02-2017 Chronic Other upper respiratory disease (6 sources) Seasonal allergy; Translations: [Other seasonal allergic rhinitis] Onset: 02-28-2014 02-28-2014 Chronic Rheumatoid arthritis and related disease (12 sources) Rheumatoid arthritis; Translations: [Rheumatoid arthritis, unspecified] Onset: 06-28-1997 Resolved: 02-28-2014 02-28-2014 Chronic Thyroid disorders (8 sources) Hypothyroidism; Translations: [Hypothyroidism, unspecified] Onset: 06-28-1984 05-24-2013 Chronic Unclassified (2 sources) Percutaneous transluminal coronary angioplasty ; Translations: [Coronary angioplasty status] Onset: 04-27-2013 04-27-2013 Unclassified (2 sources) Screening mammography ; Translations: [Encounter for screening mammogram for malignant neoplasm of breast] Onset: 02-28-2014 02-28-2014 Unclassified (2 sources) General examination of patient ; Translations: [Encounter for other general examination] Onset: 02-28-2014 02-28-2014 Unclassified (2 sources) Placement of stent in coronary artery ; Translations: [Presence of other cardiac implants and grafts] Onset: 11-06-2015 11-06-2015 Unclassified (6 sources) Aftercare ; Translations: [Encounter for other specified surgical aftercare] Onset: 06-24-2016 06-29-2016 Unclassified (6 sources) Medication side effects present; Translations: [Unspecified adverse effect of drug or medicament] Onset: 07-24-2014 07-24-2014 Past or Other Problems Problem Classification Problem Date Documented Da te Episodic/Chronic Asthma (6 sources) Reactive airways dysfunction syndrome; Translations: [Other asthma] Onset: 09-10-2015 Resolved: 10-10-2015 09-30-2015 Chronic Coronary atherosclerosis and other heart disease (6 sources) Presence of aortocoronary bypass graft; Translations: [Presence of aortocoronary bypass graft] Onset: 10-19-2012 10-19-2012 Episodic Diabetes mellitus without complication (4 sources) Hyperglycemia; Translations: [Hyperglycemia, unspecified] Onset: 06-11-2015 06-11-2015 Episodic Fracture of upper limb (1 source) Closed fracture of proximal humerus, anatomical neck; Translations: [Other displaced fracture of upper end of unspecified humerus, initial encounter for closed fracture] Onset: 12-30-2012 12-30-2012 Episodic Genitourinary symptoms and ill-defined conditions (18 sources) Abnormal urinalysis; Translations: [Increased frequency of urination] Onset: 07-25-2013 Resolved: 11-06-2015 11-06-2015 Episodic Malaise and fatigue (6 sources) Malaise and fatigue; Translations: [Personal history of other specified conditions] Onset: 02-06-2015 02-06-2015 Episodic Neoplasms of unspecified nature or uncertain behavior (6 sources) Neoplasm of skin; Translations: [Neoplasm of unspecified behavior of bone, soft tissue, and skin] Onset: 04-15-2016 05-10-2016 Episodic Nonspecific chest pain (12 sources) Chest discomfort; Translations: [Other chest pain] Onset: 10-19-2012 Resolved: 11-06-2015 11-06-2015 Episodic Other aftercare (10 sources) Other senior care (current) drug therapy; Translations: [Long-term (current) use of other medications] Onset: 10-31-2012 Resolved: 02-06-2015 02-06-2015 Episodic Other circulatory disease (12 sources) Carotid bruit; Translations: [Cardiovascular stress test abnormal] Onset: 10-19-2012 Resolved: 11-06-2015 10-19-2012 Episodic Other circulatory disease (4 sources) Femoral bruit; Translations: [Other specified symptoms and signs involving the circulatory and respiratory systems] Onset: 10-31-2015 10-31-2015 Episodic Other connective tissue disease (1 source) Plantar fascial fibromatosis; Translations: [Plantar fascial fibromatosis] Onset: 11-08-2012 11-08-2012 Episodic Other connective tissue disease (1 source) Pain in limb; Translations: [Pain in unspecified limb] Onset: 11-08-2012 11-08-2012 Episodic Other connective tissue disease (1 source) Pain in upper limb; Translations: [Pain in arm, unspecified] Onset: 12-30-2012 12-30-2012 Episodic Other female genital disorders (12 sources) Vaginal bleeding; Translations: [Abnormal uterine and vaginal bleeding, unspecified] Onset: 07-25-2013 Resolved: 11-06-2015 11-06-2015 Episodic Other gastrointestinal disorders (1 source) Incontinence of feces; Translations: [Full incontinence of feces] Onset: 07-18-2010 07-18-2010 Episodic Other nervous system disorders (1 source) Incoordination; Translations: [Unspecified lack of coordination] Onset: 06-17-2011 06-17-2011 Episodic Other screening for suspected conditions (not mental disorders or infectious disease) (8 sources) Cardiovascular stress test abnormal; Translations: [Abnormal result of other cardiovascular function study] Onset: 03-23-2013 Resolved: 11-06-2015 03-23-2013 Episodic Other skin disorders (6 sources) Senile hyperkeratosis; Translations: [Other seborrheic keratosis] Onset: 06-24-2016 06-29-2016 Episodic Residual codes; unclassified (12 sources) FH: Raised blood lipids; Translations: [Family history of other endocrine, nutritional and metabolic diseases] Resolved: 02-06-2015 02-06-2015 Episodic Screening or history of mental health and substance abuse (6 sources) Ex-smoker; Translations: [Personal history of nicotine dependence] Onset: 04-15-2016 05-10-2016 Episodic Syncope (12 sources) Syncope and collapse; Translations: [Syncope and collapse] Onset: 02-05-2014 Resolved: 11-06-2015 11-06-2015 Episodic Unclassified (20 sources) FH: Hypertension; Translations: [Hyperglycemia] Onset: 06-11-2015 Resolved: 02-06-2015 03-14-2015 Episodic Unclassified (8 sources) Long-term drug therapy; Translations: [Long-term (current) use of other medications] Onset: 10-31-2012 Resolved: 02-06-2015 02-06-2015 Viral infection (6 sources) Herpes zoster; Translations: [Zoster without complications] Onset: 10-18-2015 10-20-2015 Episodic Results Test Name Value Interpretation Reference Range Facil ity Vital Signs Date Time Vital Sign Value Performing Clinician Michael cormier 02-02-2017 12:59-0400 BMI (Body Mass Index) 31.68 kg/m2 Sejal Graves [facility] Work Phone: 02-02-2017 12:59-0400 BP Diastolic 72 mm[Hg] Sejal Eloy [facility] Work Phone: 02-02-2017 12:59-0400 BP Systolic 142 mm[Hg] Sejal [facility] Work Phone: 02-02-2017 12:59-0400 Height 154.94 cm Sejal [facility] Work Phone: 02-02-2017 12:59-0400 Pulse (Heart Rate) 60 /min Sejal [facility] Work Phone: 02-02-2017 12:59-0400 Respiratory Rate 20 /min Sejal [facility] Work Phone: 02-02-2017 12:59-0400 Weight 76.07 kg Sejal [facility] Work Phone: 08-06-2016 09:42-0500 BMI (Body Mass Index) 33.44 kg/m2 Carrington Wakefield NP [facility] Work Phone: 08-06-2016 09:42-0500 BP Diastolic 60 mm[Hg] Carrington Wakefiled SED SPECIAL EDUCATION TEACHER [facility] Work Phone: 08-06-2016 09:42-0500 BP Systolic 110 mm[Hg] Carrington Wakefield SED SPECIAL EDUCATION TEACHER [facility] Work Phone: 08-06-2016 09:42-0500 BSA (Body Surface Area) 1.8 m2 Carrington Wakefield SED SPECIAL EDUCATION TEACHER [facility] Work Phone: 08-06-2016 09:42-0500 Pulse (Heart Rate) 52 /min Carrington Wakefield SED SPECIAL EDUCATION TEACHER [facility] Work Phone: 08-06-2016 09:42-0500 Respiratory Rate 20 /min Carrington Wakefield SED SPECIAL EDUCATION TEACHER [facility] Work Phone: 08-06-2016 09:42-0500 Weight 80.29 kg Carrington Wakefield SED SPECIAL EDUCATION TEACHER [facility] Work Phone: 06-24-2016 13:47-0500 Body Temperature 97.9 [degF] Carrington Wakefield SED SPECIAL EDUCATION TEACHER [facility] Work Phone: 06-24-2016 13:47-0500 Height 154.94 cm Carrington Wakefield SED SPECIAL EDUCATION TEACHER [facility] Work Phone: 06-24-2016 13:47-0500 Weight 81.36 kg Carrington Wakefield SED SPECIAL EDUCATION TEACHER [facility] Work Phone: 11-15-2015 11:19-0400 Heart rate 52 /min Carrington Wakefield SED SPECIAL EDUCATION TEACHER [facility] Work Phone: 04-27-2013 10:39-0400 Heart rate 429 ms Carrington Wakefield SED SPECIAL EDUCATION TEACHER [facility] Work Phone: 08-29-2007 16:00-0500 Body weight 68.04 kg [facility] 08-29-2007 16:00-0500 Diastolic blood pressure 70 mm[Hg] [facility] 08-29-2007 16:00-0500 Heart rate 60 /min [facility] 08-29-2007 16:00-0500 Systolic blood pressure 144 mm[Hg] [facility] Encounters Encounter Date Encounter Type Care Provider Facility Start: 08-29-2007 End: 08-29-2007 Patient encounter procedure Moises (Res) Flavio [facility] Procedures Date Procedure Procedure Detail Performing Clinician Start: 02-02-2017 End: 02-02-2017 CLEARING 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 CLERK Ana Bailey PA-C Work Phone: Start: 02-02-2017 End: 02-02-2017 Follow Up Appt 6 months Ana solorzano PA-C Work Phone: Start: 01-29-2017 End: 01-29-2017 *Hepatic Function Panel Ana solorzano PA-C Work Phone: Start: 01-29-2017 End: 01-29-2017 Lipid panel [AGGREGATE] Ana solorzano PA-C Work Phone: Start: 08-06-2016 End: 08-06-2016 Follow Up Appt 6 months Merrill Joyner Start: 08-06-2016 End: 08-06-2016 MMM Dustin Lemus MD Start: 08-05-2016 End: 08-05-2016 *Hepatic Function Panel Ana solorzano PA-C Work Phone: Start: 08-05-2016 End: 08-05-2016 Lipid panel [AGGREGATE] Ana solorzano PA-C Work Phone: Start: 06-24-2016 End: 06-24-2016 Dietary management education, guidance, and counseling Carrington Wakefield NP Start: 04-15-2016 End: 05-11-2016 Follow Up Appt Other Carlos Peoples MD Start: 04-03-2016 End: 04-03-2016 CLEARING 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 CLERK Braeden Jones AEROSPACE MANAGER-C Start: 04-03-2016 End: 04-03-2016 Follow Up Appt 4 months Braeden Jones AEROSPACE MANAGER -C Start: 03-06-2016 End: 04-08-2016 *Hepatic Function Panel Ana solorzano PA-C Work Phone: Start: 03-06-2016 End: 04-08-2016 Lipid panel [AGGREGATE] Ana solorzano PA-C Work Phone: Start: 11-15-2015 End: 11-15-2015 CLEARING 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 CLERK Dustin Lemus MD Start: 11-15-2015 End: 12-09-2015 Echocardiography Dustin Lemus MD Start: 11-15-2015 End: 11-15-2015 Electrocardiogram, complete Dustin Moseley i, MD Start: 11-15-2015 End: 11-15-2015 Follow Up Appt 3 months Merrill Joyner Start: 11-15-2015 End: 11-16-2015 Referral to physicist solid state Dustin Lemus MD Start: 11-06-2015 Placement of stent in coronary artery Mutilple coronary stents Carrington Wakefield SED SPECIAL EDUCATION TEACHER Start: 10-31-2015 End: 12-09-2015 Arterial exam Carlos Chavez MD Work Phone: Start: 10-31-2015 End: 10-31-2015 Nurse, Teaching, Wound Check (no charge) Dustin Lemus MD Start: 08-15-2015 End: 08-15-2015 Follow Up Appt 6 months Merrill Joyner Start: 08-15-2015 End: 08-15-2015 MMM Dustin Lemus MD Start: 08-09-2015 End: 09-04-2015 *Hepatic Function Panel Merrill Joyner Start: 08-09-2015 End: 09-04-2015 Lipid panel [AGGREGATE] Merrill Joyner Start: 06-11-2015 End: 01-25-2017 HbA1c Teresa Boggs DO Work Phone: Start: 06-11-2015 End: 01-25-2017 Hemoglobin glycosylated a1c Teresa Boggs , DO Work Phone: Start: 04-04-2015 End: 01-25-2017 Mammogram, screening Teresa Boggs, DO Work Phone: Start: 03-14-2015 End: 03-14-2015 Colonoscopy Ana Bailey PA-C Work Phone: Start: 03-14-2015 End: 03-14-2015 CLEARING 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 CLERK Ana Bailey PA-C Work Phone: Start: 03-14-2015 End: 03-14-2015 Documentation of current medications Ana Bailey PA-C Work Phone: Start: 03-14-2015 End: 03-14-2015 Follow Up Appt 6 months Ana solorzano PA-C Work Phone: Start: 02-06-2015 End: 02-06-2015 *BMP Ana Bailey PA-C Work Phone: Start: 02-06-2015 End: 02-06-2015 *CBC with Differential Ana carrillo PA-C Work Phone: Start: 02-06-2015 End: 02-07-2015 Colonoscopy Ana Bailey PA-C Work Phone: Start: 02-06-2015 End: 02-06-2015 CLEARING 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 CLERK Ana Bailey PA-C Work Phone: Start: 02-06-2015 End: 02-07-2015 Documentation of current medications Ana Bailey PA-C Work Phone: Start: 02-06-2015 End: 02-06-2015 Electrocardiogram, complete Ana Bishop PA-C Work Phone: Start: 02-06-2015 End: 02-06-2015 Follow Up Appt 1 month Ana carrillo PA-C Work Phone: Start: 02-06-2015 End: 02-06-2015 Follow Up Appt 6 months Ana solorzano PA-C Work Phone: Start: 02-06-2015 End: 02-06-2015 MMM Ana Bailey PA-C Work Phone: Start: 02-06-2015 End: 02-11-2015 Nuclear stress test -Lexiscan Ana Bailey PA-C Work Phone: Start: 02-06-2015 End: 02-06-2015 Thyroid stimulating hormone (TSH) Ana Bailey PA-C Work Phone: Start: 02-06-2015 End: 02-06-2015 Thyroxine (T4) Ana Bailey PA-C Work Phone: Start: 01-31-2015 End: 02-06-2015 *Hepatic Function Panel Merrill Joyner Start: 01-31-2015 End: 02-06-2015 Lipid panel [AGGREGATE] Merrill Joyner Start: 08-07-2014 End: 08-08-2014 Colonoscopy Dustin Lemus MD Start: 08-07-2014 End: 08-08-2014 Documentation of current medications Dustin Lemus MD Start: 08-07-2014 End: 08-07-2014 Follow Up Appt 6 months Merrill Joyner Start: 08-07-2014 End: 08-07-2014 MMM Dustin Lemus MD Start: 07-29-2014 End: 08-03-2014 *Hepatic Function Panel Merrill Joyner Start: 07-29-2014 End: 08-03-2014 Lipid panel [AGGREGATE] Merrill Joyner Start: 07-24-2014 End: 07-24-2014 Urinalysis Carrington Wakefield NP Start: 07-24-2014 End: 07-27-2014 *YAA Ritchie MD Start: 07-24-2014 End: 07-26-2014 Urine culture, bacteria Sun Ritchie MD Start: 02-28-2014 End: 03-09-2014 *BMP Sun Ritchie MD Start: 02-28-2014 End: 03-09-2014 *UA - Urinalysis w/o Micro Sun Ritchie MD Start: 02-28-2014 End: 03-09-2014 CBC W Auto Differential panel - Blood Sun Ritchie MD Start: 02-28-2014 General examination of patient Health maintenance exam Carrington Ashu SED SPECIAL EDUCATION TEACHER Start: 02-28-2014 End: 03-21-2014 Mammogram, Screening, both breasts Sun Ritchie MD Start: 02-28-2014 Screening mammography Screening mammogram NEC Carrington Wakefield SED SPECIAL EDUCATION TEACHER Start: 02-28-2014 End: 03-09-2014 Thyroid stimulating hormone (TSH) Sun Ritchie MD Start: 01-25-2014 End: 01-25-2014 CLEARING 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 CLERK Ana Bailey PA-C Work Phone: Start: 01-25-2014 End: 01-25-2014 Follow Up Appt 6 months Ana solorzano PA-C Work Phone: Start: 01-25-2014 End: 01-25-2014 Follow Up Appt Other Ana lassiter PA-C Work Phone: Start: 12-26-2013 End: 02-01-2014 *Hepatic Function Panel Merrill Joyner Start: 12-26-2013 End: 02-01-2014 Lipid panel [AGGREGATE] Merrill Joyner Start: 07-28-2013 End: 07-28-2013 Follow Up Appt 6 months Merrill Joyner Start: 07-28-2013 End: 07-28-2013 MMM Dustin Lemus MD Start: 07-25-2013 End: 07-26-2013 *NEFTALY - Fungus, NEFTALY Prep Sun Ritchie MD Start: 07-25-2013 End: 07-26-2013 Occult blood, feces Sun Ritchie MD Start: 07-25-2013 End: 07-28-2013 Transvaginal us, non-ob Sun Ritchie MD Start: 07-25-2013 End: 07-26-2013 Trichomonas vaginalis [Presence] in Unspecified specimen by Wet preparation Sun Ritchie MD Start: 07-25-2013 End: 07-26-2013 Urinalysis nonauto w/o scope Sun Ritchie MD Start: 07-25-2013 End: 07-26-2013 Urine culture, bacteria Sun Ritchie MD Start: 07-25-2013 End: 07-26-2013 Other Sun Ritchie MD Start: 05-24-2013 End: 07-26-2013 Rheumatology Referral Sun Ritchie MD Start: 04-28-2013 End: 01-24-2014 *Hepatic Function Panel Merrill Joyner Start: 04-28-2013 End: 01-24-2014 Lipid panel [AGGREGATE] [place] Joyner Start: 04-27-2013 End: 04-27-2013 *Hepatic Function Panel Ana solorzano PA-C Work Phone: Start: 04-27-2013 End: 04-27-2013 CLEARING 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 CLERK Ana Bailey PA-C Work Phone: Start: 04-27-2013 End: 04-27-2013 Follow Up Appt 3 months Aan solorzano PA-C Work Phone: Start: 04-27-2013 End: 04-27-2013 Lipid panel [AGGREGATE] Ana solorzano PA-C Work Phone: Start: 04-27-2013 Percutaneous transluminal coronary angioplasty CORONARY ARTERY DISEASE, S/P PTCA Carrington Ashu HOWE Start: 04-12-2013 End: 07-05-2013 Cardiac Rehab Dustin Lemus MD Start: 03-23-2013 End: 04-13-2013 Left Heart Cath W/Grafts Carlos Chavez MD Work Phone: Start: 03-06-2013 Colonoscopy Moises Munzi Start: 10-26-2012 End: 10-31-2012 *Hepatic Function Panel [place] Joyner Start: 10-26-2012 End: 11-01-2012 Echocardiography Dustin Lemus MD Start: 10-26-2012 End: 10-26-2012 Follow Up Appt 6 months Merrill Joyner Start: 10-26-2012 End: 10-31-2012 Lipid panel [AGGREGATE] [place] Joyner Start: 10-26-2012 End: 10-26-2012 MMM Dustin eLmus MD Start: 06-09-2005 Mammography Moises Muniz Plan of Treatment Date Care Activity Detail Author Start: 02-26-2021 Influenza vaccination INFLUENZA (Season Ended) [place] [facility] Start: 10-22-2020 LIPID SCREEN LIPID SCREEN [facility] Start: 2019 ADVANCE DIRECTIVE DISCUSSION ADVANCE DIRECTIVE DISCUSSION [facility] Start: 2019 BONE DENSITY BONE DENSITY [facility] Start: 2019 PNEUMOVAX AGE 65 AND OVER WITH 5YR LOOKBACK (#1) PNEUMOVAX AGE 65 AND OVER WITH 5YR LOOKBACK (#1) [facility] Start: 10-23-2018 DIABETES SCREEN DIABETES SCREEN [facility] Start: 03-06-2018 Screening for malignant neoplasm of colon [facility] Start: 08-12-2017 End: 08-12-2017 Appointment Appointment [facility] Work Phone: Start: 02-03-2017 End: 01-29-2017 *Hepatic Function Panel *Hepatic Function Panel [facility] Work Phone: Start: 02-03-2017 End: 01-29-2017 Lipid panel [AGGREGATE] *Lipid Profile CC PCP [facility] Work Phone: Start: 02-02-2017 End: 02-02-2017 Appointment Appointment [facility] Work Phone: Start: 02-02-2017 End: 02-02-2017 CLEARING 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 CLERK CLEARING 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 CLERK [facility] Work Phone: Start: 02-02-2017 End: 02-02-2017 Follow Up Appt 6 months Follow Up Appt 6 months [facility] Work Phone: Start: 10-07-2016 End: 08-05-2016 *Hepatic Function Panel *Hepatic Function Panel [facility] Work Phone: Start: 10-07-2016 End: 08-05-2016 Lipid panel [AGGREGATE] *Lipid Profile CC PCP [facility] Work Phone: Start: 08-06-2016 End: 08-06-2016 Follow Up Appt 6 months Follow Up Appt 6 months [facility] Work Phone: Start: 08-06-2016 End: 08-06-2016 MMM MMM [facility] Work Phone: Start: 06-24-2016 End: 06-29-2016 Follow Up Appt 6 months Follow Up Appt 6 months [facility] Work Phone: Start: 06-24-2016 End: 06-30-2016 Primary Care Physician Primary Care Physician Teresa Boggs DO, [facility], [address] [place] [address], [address], [place], [address] [facility] Work Phone: Start: 04-15-2016 End: 05-11-2016 Follow Up Appt Other Follow Up Appt Other [facility] Work Phone: Start: 04-03-2016 End: 04-03-2016 CLEARING 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 CLERK CLEARING 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 CLERK [facility] Work Phone: Start: 04-03-2016 End: 04-03-2016 Follow Up Appt 4 months Follow Up Appt 4 months [facility] Work Phone: Start: 03-06-2016 End: 04-08-2016 *Hepatic Function Panel *Hepatic Function Panel [facility] Work Phone: Start: 03-06-2016 End: 04-08-2016 Lipid panel [AGGREGATE] *Lipid Profile CC PCP [facility] Work Phone: Start: 11-15-2015 End: 01-02-2016 Cardiac Rehab Card[facility] [address] [place], [address] [facility] Work Phone: Start: 11-15-2015 End: 11-15-2015 CLEARING 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 CLERK CLEARING 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 CLERK [facility] Work Phone: Start: 11-15-2015 End: 11-15-2015 Echocardiography Echocardiogram (complete) [facility] Work Phone: Start: 11-15-2015 End: 11-15-2015 Electrocardiogram, complete EKG (In office) [facility] Work Phone: Start: 11-15-2015 End: 11-15-2015 Follow Up Appt 3 months Follow Up Appt 3 months [facility] Work Phone: Start: 10-31-2015 End: 12-09-2015 Arterial exam Arterial exam [facility] Work Phone: Start: 08-15-2015 End: 08-15-2015 Follow Up Appt 6 months Follow Up Appt 6 months [facility] Work Phone: Start: 08-15-2015 End: 08-15-2015 MMM MMM [facility] Work Phone: Start: 08-09-2015 End: 09-04-2015 *Hepatic Function Panel *Hepatic Function Panel [facility] Work Phone: Start: 08-09-2015 End: 09-04-2015 Lipid panel [AGGREGATE] *Lipid Profile CC PCP [facility] Work Phone: Start: 06-11-2015 End: 01-25-2017 HbA1c HGB A1C (Office) [facility] Work Phone: Start: 05-19-2015 Urine microalbumin profile DTAP,TDAP,TD (2 - Tdap) [facility] Start: 04-04-2015 End: 01-25-2017 Mammogram, screening Mammogram, Screening, both breasts [facility] Work Phone: Start: 03-14-2015 End: 03-14-2015 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 CLERK CLEARING 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 CLERK [facility] Work Phone: Start: 03-14-2015 End: 03-14-2015 Follow Up Appt 6 months Follow Up Appt 6 months [facility] Work Phone: Start: 02-06-2015 End: 02-06-2015 *BMP *BMP [facility] Work Phone: Start: 02-06-2015 End: 02-06-2015 *CBC with Differential *CBC with Differential [facility] Work Phone: Start: 02-06-2015 End: 02-06-2015 CLEARING 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 CLERK CLEARING 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 CLERK [facility] Work Phone: Start: 02-06-2015 End: 02-06-2015 Electrocardiogram, complete EKG (In office) [facility] Work Phone: Start: 02-06-2015 End: 02-06-2015 Follow Up Appt 1 month Follow Up Appt 1 month [facility] Work Phone: Start: 02-06-2015 End: 02-06-2015 Follow Up Appt 6 months Follow Up Appt 6 months [facility] Work Phone: Start: 02-06-2015 End: 02-06-2015 MMM MMM [facility] Work Phone: Start: 02-06-2015 End: 02-06-2015 Nuclear stress test -Lexiscan Nuclear stress test -Lexiscan [facility] Work Phone: Start: 02-06-2015 End: 02-06-2015 Thyroid stimulating hormone (TSH) *TSH [facility] Work Phone: Start: 02-06-2015 End: 02-06-2015 Thyroxine (T4) *T4 (Total) [facility] Work Phone: Start: 01-31-2015 End: 02-06-2015 *Hepatic Function Panel *Hepatic Function Panel [facility] Work Phone: Start: 01-31-2015 End: 02-06-2015 Lipid panel [AGGREGATE] *Lipid Profile CC PCP [facility] Work Phone: Start: 08-07-2014 End: 08-07-2014 Follow Up Appt 6 months Follow Up Appt 6 months [facility] Work Phone: Start: 08-07-2014 End: 08-07-2014 MMM MMM [facility] Work Phone: Start: 07-29-2014 End: 08-03-2014 *Hepatic Function Panel *Hepatic Function Panel [facility] Work Phone: Start: 07-29-2014 End: 08-03-2014 Lipid panel [AGGREGATE] *Lipid Profile CC PCP [facility] Work Phone: Start: 07-24-2014 End: 07-27-2014 *BMP *BMP [facility] Work Phone: Start: 07-24-2014 End: 07-26-2014 Urine culture, bacteria *CUUR - Culture, Urine ([place] Count) [facility] Work Phone: Start: 02-28-2014 End: 03-09-2014 *BMP *BMP [facility] Work Phone: Start: 02-28-2014 End: 03-09-2014 *UA - Urinalysis w/o Micro *UA - Urinalysis w/o Micro [facility] Work Phone: Start: 02-28-2014 End: 03-09-2014 CBC W Auto Differential panel - Blood *CBC without Diff [facility] Work Phone: Start: 02-28-2014 End: 03-21-2014 Mammogram, Screening, both breasts Mammogram, Screening, both breasts [facility] Work Phone: Start: 02-28-2014 End: 03-09-2014 Thyroid stimulating hormone (TSH) *TSH [facility] Work Phone: Start: 01-25-2014 End: 01-25-2014 CLEARING 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 CLERK CLEARING 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 CLERK [facility] Work Phone: Start: 01-25-2014 End: 01-25-2014 Follow Up Appt 6 months Follow Up Appt 6 months [facility] Work Phone: Start: 01-25-2014 End: 01-25-2014 Follow Up Appt Other Follow Up Appt Other [facility] Work Phone: Start: 12-26-2013 End: 02-01-2014 *Hepatic Function Panel *Hepatic Function Panel [facility] Work Phone: Start: 12-26-2013 End: 02-01-2014 Lipid panel [AGGREGATE] *Lipid Profile CC PCP [facility] Work Phone: Start: 07-28-2013 End: 07-28-2013 Follow Up Appt 6 months Follow Up Appt 6 months [facility] Work Phone: Start: 07-28-2013 End: 07-28-2013 MMM MMM [facility] Work Phone: Start: 07-25-2013 End: 07-26-2013 *NEFTALY - Fungus, NEFTALY Prep *NEFTALY - Fungus, NEFTALY Prep [facility] Work Phone: Start: 07-25-2013 End: 07-26-2013 Occult blood, feces Occult Stools (Office) [facility] Work Phone: Start: 07-25-2013 End: 07-25-2013 Transvaginal us, non-ob US Transvaginal [facility] Work Phone: Start: 07-25-2013 End: 07-26-2013 Trichomonas vaginalis [Presence] in Unspecified specimen by Wet preparation *WP - Wet Prep - Trichomonas [facility] Work Phone: Start: 07-25-2013 End: 07-26-2013 Urinalysis nonauto w/o scope UA Dipstick (Office) [facility] Work Phone: Start: 07-25-2013 End: 07-26-2013 Urine culture, bacteria *CUUR - Culture, Urine ([place] Count) [facility] Work Phone: Start: 07-25-2013 End: 07-26-2013 Other Other [facility] Work Phone: Start: 05-24-2013 End: 07-26-2013 Rheumatology Referral Rheumatology Referral Jeb Montero MD, [address] [place] [address], [id number] [facility] Work Phone: Start: 04-28-2013 End: 01-24-2014 *Hepatic Function Panel *Hepatic Function Panel [facility] Work Phone: Start: 04-28-2013 End: 01-24-2014 Lipid panel [AGGREGATE] *Lipid Profile [facility] Work Phone: Start: 04-27-2013 End: 04-27-2013 *Hepatic Function Panel *Hepatic Function Panel [facility] Work Phone: Start: 04-27-2013 End: 04-27-2013 CLEARING 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 CLERK CLEARING 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 CLERK [facility] Work Phone: Start: 04-27-2013 End: 04-27-2013 Follow Up Appt 3 months Follow Up Appt 3 months [facility] Work Phone: Start: 04-27-2013 End: 04-27-2013 Lipid panel [AGGREGATE] *Lipid Profile CC PCP [facility] Work Phone: Start: 04-12-2013 End: 04-13-2013 Cardiac Rehab Cardiac Rehab [facility] Work Phone: Start: 03-23-2013 End: 03-24-2013 Left Heart Cath W/Grafts Left Heart Cath W/[facility] Work Phone: Start: 10-26-2012 End: 10-31-2012 *Hepatic Function Panel *Hepatic Function Panel [facility] Work Phone: Start: 10-26-2012 End: 10-26-2012 Echocardiography Echocardiogram (complete) [facility] Work Phone: Start: 10-26-2012 End: 10-26-2012 Follow Up Appt 6 months Follow Up Appt 6 months [facility] Work Phone: Start: 10-26-2012 End: 10-31-2012 Lipid panel [AGGREGATE] *Lipid Profile [facility] Work Phone: Start: 10-26-2012 End: 10-26-2012 MMM MMM [facility] Work Phone: Start: 06-09-2006 Mammography MAMMOGRAM [facility] Start: 2004 Screening for malignant neoplasm of colon [facility] Start: 2004 SHINGRIX VACCINE (1 of 2) SHINGRIX VACCINE (1 of 2) [facility] Start: 1966 Adult depression screening assessment DEPRESSION SCREENING [facility] Start: 1966 COVID-19 VACCINE (1) COVID-19 VACCINE (1) [facility] Basic metabolic 2000 panel - Serum or Plasma BASIC METABOLIC PNL Lab Routine Benign Hypertension Ordered: 08/29/2007 [facility] Immunizations Immunization Date Immunization Notes Care Provider Denisse soliz 05-19-2005 diphtheria and tetan us toxoids, adsorbed for pediatric use [facility] 05-06-2005 influenza virus vacc ine, unspecified formulation [facility] 04-24-2003 influenza virus vacc ine, unspecified formulation [facility] Payers Date Payer Category Payer Unknown [facility] [employer] / FAITH [id number] 2007-2008 [facility] 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 Start: 1955 Sex Assigned At Not on file [facility] History of Present illness Narrative 08-29-2007 08/29/2007 4:00 PM EST Note Date & Type Note Facility 08-29-2007 History of Presen t illness Narrative This is a 52 year old female who presents today with: Patient presents with: Follow Up discuss pain Refill Request REVIEW OF SYSTEMS GENERAL: weight loss-Yes about 10 pounds HEENT: Negative for frequent or significant headaches, No changes in hearing or vision, no nose bleeds or other nasal problems. Noteworthy: the patient complained of what sounded like angioedema mild attacks, and sometimes swollen throat and swallowing gets problematic, and that has been going on for almost 10 years. CARDIOVASCULAR: Negative for chest pain, leg swelling and palpitations GI: Negative for abdominal discomfort, blood in stools or black stools and change in bowel habits : No history of dysuria, frequency and incontinence BAND EDGER: Negative for abnormal vaginal bleeding, abnormal vaginal discharge and breast symptoms. LMP: 2 years ago. MUSCULOSKELETAL: Feels hands stiff for 1/2 hours in the morning and during the night they SKIN: Negative for lesions, rash, and itching. All others reviewed and negative General Appearance: well appearing, in no acute distress, alert Head: Normal Eyes: Anicteric sclera. Pupils are equally round and reactive to light. Extraocular movements are intact. Back: no pain to palpation over spine or costovertebral angles, reflexes are 2+ and symmetric, motor and sensory appear to be normal Lungs: Lungs clear to auscultation, No wheezing or rhonchi Heart: Negative. RRR without murmur, gallop, or rubs. No ectopy. Abdomen: Abdomen soft, non-tender. Bowel sounds normal. No masses, organomegaly Extremities: Extremities normal. No deformities, edema, or skin discoloration. Good capillary refill. Musculoskeletal: Spine range of motion normal. Muscular strength intact... the occiput/wall distance is zero because she can touch the wall with her occiput. Neurologic: Gait normal. Reflexes normal and symmetric. Sensation grossly intact. MEDICATIONS: Current outpatient prescriptions prior to encounter: LORAZEPAM 1 MG TAB, take one tablet by mouth twice daily levothyroxine sodium(SYNTHROID 25 MCG TAB), Take one(1) tablet daily. BUSPIRONE 10 MG TAB, Take one(1) tablet two(2) times daily. amlodipine besylate(NORVASC 10 MG TAB), Take one(1) tablet daily. celecoxib(CELEBREX 200 MG CAP), Take one(1) capsule daily. ATENOLOL 100 MG TAB, Take one(1) tablet daily. lorazepam(ATIVAN 1 MG TAB), Take one(1) tablet daily. sertraline 50 mg ORAL Tab, Take one(1) tablet daily. atenolol 100 mg ORAL Tab, Take one(1) tablet daily. amlodipine (NORVASC) 10 mg ORAL Tab, Take one(1) tablet daily. celecoxib (CELEBREX) 100 mg ORAL Cap, Take one(1) tablet two(2) times daily. aspirin, enteric coated (ASPIR-LOW) 81 mg ORAL TbEC, Take one(1) tablet daily. multivitamin ORAL Tab, Take one(1) tablet daily. B Complex Vitamins ORAL Cap, Take one(1) tablet daily. PAST MEDICAL HISTORY Arthropathy NOS-Unspec Hypothyroidism NOS Benign Hypertension Depressive Disorder NEC Anxiety State NOS ASSESSMENT/PLAN: 1. Hypothyroidism: the medication Levothyroxine was decreased to 25mcg from 100mcg recently about 6 weeks ago, and she is feeling much better now, no constipation, no excess sleepiness, and will recheck her TSH. 2. h/o angioedema: diagnosed in the [facility] few years ago, and she was on lisinopril, and I stopped it because of being notorious. 3. Hypertension: blood pressure was measured and it is 131/61 and she is going to be off lisinopril and just keeping her on amlodipine and atenolol. 4. Fibromyalgia: asking about lyrica, but she also read that can cause angioedema itself, so I recommended avoiging it altogether, and she was not happy with amitriptylline because she gained a lot of weight. 5. General anxiety disorder: she is on buspar 10 mg twice daily. Moises Muniz MD documented in this encounter [facility] Nurse Note 08-29-2007 08/29/2007 4:00 PM EST Note Date & Type Note Facility 08-29-2007 Nurse Note >> NEIDA HASSANIreneJIGNESH JUAN Mon Aug 29, 2007 3:49 PM Is the patient having any pain? Yes: LOCATION: joints in hands ,wrists, elbows PAIN SCALE: 6 on a scale of 0-10 Neida Morales Madocumented in this encounter [facility] Evaluation note Note Date & Type Note Facility documented in this encounter [facility] Additional Source Comments Source Comments (unrecognize d section and content) In the event this informatio n is protected by the Federal Confidentiality of Alcohol and Drug Abuse Patient Records regulations: The Federal rules restrict any use of the information to criminally investigate or prosecute any alcohol or drug abuse patient.[facility] Reason for Visit (unrecogniz ed section and content) FOR RECORDS PERTAINING TO PATIENTS WHO ARE OR HAVE BEEN ENROLLED IN A CHEMICAL DEPENDENCY/SUBSTANCEABUSE PROGRAM, SOME INFORMATION MAY BE OMITTED. This clinical summary was aggregated from multiple sources. Caution should be exercised in using it in the provision of clinical care. This summary normalizes information from multiple sources, and as a consequence, information in this document may materially change the coding, format and clinical context of patient data. In addition, data may be omitted in some cases. CLINICAL DECISIONS SHOULD BE BASED ON THE PRIMARY CLINICAL RECORDS. [facility] [employer] [facility]. provides no warranty or guarantee of the accuracy or completeness of information in this document.
[2023-07-01 10:40] LABS: AST(SGOT) 28 U/L (15-37); Alanine Aminotransfer ALT/SGPT 23 U/L (13-56); Albumin, Serum 4.2 g/dL (3.2-5.0); Alkaline Phosphatase 58 U/L (45-117); Bilirubin, Direct 0.25 mg/dL (0.00-0.30); Cholesterol 188 mg/dL (200); Globulin 3.5 g/dL (2.2-4.2); High Density Lipoprotein 57 mg/dL; Protein, Total 7.7 g/dL (6.4-8.2); Triglycerides 147 mg/dL; Very Low Density Lipoprotein 29 mg/dL (5-40)
== END | disposition home or self-care (01) ==
LOC: LAB 09:04
PROVIDERS: Internal Medicine Cardiovascular Disease; PCP Family Medicine; Referring Provider Nurse Practitioner Gerontology; Visit Provider Nurse Practitioner Gerontology
DX: E78.00 Pure hypercholesterolemia, unspecified (principal)
CPT/HCPCS: 36415; 80061; 80076

== ENCOUNTER → 2023-07-27 | Outpatient (CLI) | payer MEDICARE, SELFPAY ==
[2022-04-30 10:36] VITALS: BMI 31.4
--- OUTSIDE RECORDS SUMMARY | 2023-07-27 15:18 | XMS RPT_ITS | CCD ---
Author Name Unknown Address [address] [place] [address] Organization [facility] Care Team Providers Care Baggageman Name Role Phone Sejal Lyons Unavailable Unavailable Roof ELECTRONIC INTELLIGENCE OFFICER, Carrington H Unavailable Roof ELECTRONIC INTELLIGENCE OFFICER, Carrington H Unavailable Sejal Lyons Unavailable Unavailable Sejal Lyons Unavailable Unavailable Sejal Lyons Unavailable Unavailable Moises Muniz (Res) Primary Care Provider Unavail able Allergies Allergy Classification Reported Allergen(s) Allergy Type Date of Onset Reaction(s) Facility Acetaminophen / oxyCODONE (1 source) Acetaminophen / oxyCODONE Drug Allergy 1 Rash [facility] Adhesive Tape (1 source) Adhesive Tape Substance Allergy 8 [facility] Furosemide (1 source) Furosemide Drug Allergy 1 Itching [facility] Opioid Agonists (2 sources) Codeine Drug Allergy 7 Rash, GI Upset [facility] (6 sources) acetaminophen drug allergy 3 rash [facility] Work Phone: [phone] (6 sources) acetaminophen / oxyCODONE drug allergy 3 rash [facility] Work Phone: [phone] (6 sources) Adhesive Tape; Translations: [ADHESIVE TAPE] allergy to substance [facility] Work Phone: [phone] (6 sources) Angiotensin Converting Enzyme (Nicholas) Inhibitors drug allergy 8 angioedema [facility] Work Phone: [phone] (6 sources) apis mellifera venom; Translations: [BEE STINGS] allergy to substance 4 [facility] Work Phone: [phone] (6 sources) codeine drug allergy 3 [facility] Work Phone: (6 sources) doxazosin drug allergy 6 Heart rate dropped [facility] Work Phone: (6 sources) furosemide drug allergy 3 rash [facility] Work Phone: (6 sources) traMADol drug allergy 3 [facility] Work Phone: Medications Completed/Discontinued Medications Medication Drug Class(es) Dates Sig (Normalized) Sig (Original) acetaminophen 500 mg oral tablet (18 sources) Start: 02-28-2014 End: 11-06-2015 take 2 tablets by mouth once daily as needed TYLENOL EXTRA STRENGTH 500 MG TABS Two tablets by mouth daily as needed ACETAMINOPHEN [id number] Teresa Boggs DO ALBUTEROL SULFATE (12 sources) beta2-Adrenergic Agonist Start: 09-10-2015 End: 04-03-2016 VENTOLIN HFA 108 (90 Base) MCG/ACT AERS 2 puffs inhaled every 4-6 hours as needed ALBUTEROL SULFATE [id number] Teresa Boggs DO Problems Active Problems Problem [...] 11-06-2015 Episodic Other aftercare (10 sources) Other residential (current) drug therapy; Translations: [Long-term (current) use [...] (Body Mass Index) 31.68 kg/m2 Sejal Graves [facility] Work Phone: 02-02-2017 12:59-0400 BP [...] Mass Index) 33.44 kg/m2 Carrington Wakefield NP [place] [facility] Work Phone: 08-06-2016 09:42-0500 BP Diastolic 60 mm[Hg] Carrington Wakefield ELECTRONIC INTELLIGENCE OFFICER [facility] Work Phone: 08-06-2016 09:42-0500 BP Systolic 110 mm[Hg] Carrington Wakefield ELECTRONIC INTELLIGENCE OFFICER [facility] Work Phone: 08-06-2016 09:42-0500 BSA (Body Surface Area) 1.8 m2 Carrington Wakefield ELECTRONIC INTELLIGENCE OFFICER [facility] Work Phone: 08-06-2016 09:42-0500 Pulse (Heart Rate) 52 /min Carrington Wakefield ELECTRONIC INTELLIGENCE OFFICER [facility] Work Phone: 08-06-2016 09:42-0500 Respiratory Rate 20 /min Carrington Wakefield ELECTRONIC INTELLIGENCE OFFICER [facility] Work Phone: 08-06-2016 09:42-0500 Weight 80.29 kg Carrington Wakefield ELECTRONIC INTELLIGENCE OFFICER [facility] Work Phone: 06-24-2016 13:47-0500 Body Temperature 97.9 [degF] Carrington Wakefield ELECTRONIC INTELLIGENCE OFFICER [facility] Work Phone: 06-24-2016 13:47-0500 Height 154.94 cm Carrington Wakefield ELECTRONIC INTELLIGENCE OFFICER [facility] Work Phone: 06-24-2016 13:47-0500 Weight 81.36 kg Carrington Wakefield ELECTRONIC INTELLIGENCE OFFICER [facility] Work Phone: 11-15-2015 11:19-0400 Heart rate 52 /min Carrington Wakefield ELECTRONIC INTELLIGENCE OFFICER [facility] Work Phone: 04-27-2013 10:39-0400 Heart rate 429 ms Carrington Wakefield ELECTRONIC INTELLIGENCE OFFICER [facility] Work Phone: 08-29-2007 16:00-0500 Body weight 68.04 kg [facility] 08-29-2007 16:00-0500 Diastolic blood pressure 70 mm[Hg] [facility] 08-29-2007 16:00-0500 Heart rate 60 /min [facility] 08-29-2007 16:00-0500 Systolic blood pressure 144 mm[Hg] [facility] Encounters Encounter Date Encounter Type Care Provider Facility Start: 08-29-2007 End: 08-29-2007 Patient encounter procedure Moises (Res) Flavio [facility] Procedures Date Procedure Procedure Detail Performing Clinician Start: 02-02-2017 End: 02-02-2017 [employer] Ana Bailey PA-C Work Phone: Start: 02-02-2017 [...] Carlos Peoples MD Start: 04-03-2016 End: 04-03-2016 [employer] [employer] [facility] Braeden Jones NEW ACCOUNT INTERVIEWER-C Start: 04-03-2016 End: 04-03-2016 Follow Up Appt 4 months Braeden Jones NEW ACCOUNT INTERVIEWER -C Start: 03-06-2016 End: 04-08-2016 *Hepatic Function Panel Ana solorzano PA-C Work Phone: Start: 03-06-2016 End: 04-08-2016 Lipid panel [AGGREGATE] Ana solorzano PA-C Work Phone: Start: 11-15-2015 End: 11-15-2015 [employer] [employer] Dustin Lemus MD Start: 11-15-2015 End: 12-09-2015 Echocardiography Dustin Lemus MD Start: 11-15-2015 End: 11-15-2015 Electrocardiogram, complete Dustin Moseley i, MD Start: 11-15-2015 End: 11-15-2015 Follow Up Appt 3 months Merrill Joyner Start: 11-15-2015 End: 11-16-2015 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 Dustin Lemus MD Start: 11-06-2015 Placement of stent in coronary artery Mutilple coronary stents Carrington Wakefield ELECTRONIC INTELLIGENCE OFFICER Start: 10-31-2015 End: 12-09-2015 Arterial exam Carlos [...] PA-C Work Phone: Start: 03-14-2015 End: 03-14-2015 [employer] [employer] Ana Bailey PA-C Work Phone: Start: 03-14-2015 [...] PA-C Work Phone: Start: 02-06-2015 End: 02-06-2015 SU[employer] [employer] Ana Bailey PA-C Work Phone: Start: 02-06-2015 End: 02-07-2015 Documentation of current medications Ana Bailey PA-C Work Phone: Start: 02-06-2015 End: 02-06-2015 Electrocardiogram, complete Ana Bishop PA-C Work Phone: Start: 02-06-2015 End: 02-06-2015 Follow Up Appt 1 month nAa carrillo PA-C Work Phone: Start: 02-06-2015 End: 02-06-2015 Follow Up Appt 6 months Ana solorzano PA-C Work Phone: Start: 02-06-2015 End: 02-06-2015 MMM Ana Bailey PA-C Work Phone: Start: 02-06-2015 End: 02-11-2015 Nuclear stress test -Lexiscan nAa Bailey PA-C Work Phone: Start: 02-06-2015 End: [...] of patient Health maintenance exam Carrington Ashu ELECTRONIC INTELLIGENCE OFFICER Start: 02-28-2014 End: 03-21-2014 Mammogram, Screening, both breasts Sun Ritchie MD Start: 02-28-2014 Screening mammography Screening mammogram NEC Carrington Wakefield ELECTRONIC INTELLIGENCE OFFICER Start: 02-28-2014 End: 03-09-2014 Thyroid stimulating hormone (TSH) Sun Ritchie MD Start: 01-25-2014 End: 01-25-2014 SU[employer] [employer] Ana Bailey PA-C Work Phone: Start: 01-25-2014 [...] 07-25-2013 End: 07-26-2013 Occult blood, feces Sun Ritchei MD Start: 07-25-2013 End: 07-28-2013 Transvaginal us, [...] PA-C Work Phone: Start: 04-27-2013 End: 04-27-2013 SU[employer] [employer] Ana Bailey PA-C Work Phone: Start: 04-27-2013 End: 04-27-2013 Follow Up Appt 3 months Ana solorzano PA-C Work Phone: Start: 04-27-2013 End: 04-27-2013 Lipid panel [AGGREGATE] Ana solorzano PA-C Work Phone: Start: 04-27-2013 Percutaneous transluminal coronary angioplasty CORONARY ARTERY DISEASE, S/P PTCA Carrington Ashu HOWE Start: 04-12-2013 End: 07-05-2013 Cardiac Rehab Dustin Lemus MD Start: 03-23-2013 End: 04-13-2013 Left Heart Cath W/Grafts Carlos Chavez MD Work Phone: Start: 03-06-2013 Colonoscopy Moises Muniz Start: 10-26-2012 End: 10-31-2012 *Hepatic Function Panel Merrill Joyner Start: 10-26-2012 End: 11-01-2012 Echocardiography Dustin Lemus MD Start: 10-26-2012 End: 10-26-2012 Follow Up Appt 6 months Merrill Joyner Start: 10-26-2012 End: 10-31-2012 Lipid panel [AGGREGATE] Merrill Joyner Start: 10-26-2012 End: 10-26-2012 MMM Dustin Lemus MD Start: 06-09-2005 Mammography Moises Muniz Plan of Treatment Date Care Activity Detail Author Start: 02-26-2021 Influenza vaccination INFLUENZA (Season Ended) [facility] Start: 10-22-2020 LIPID SCREEN LIPID SCREEN [facility] Start: 2019 ADVANCE DIRECTIVE DISCUSSION ADVANCE DIRECTIVE DISCUSSION [facility] Start: 2019 BONE DENSITY BONE DENSITY [facility] Start: 2019 PNEUMOVAX AGE 65 AND OVER WITH 5YR LOOKBACK (#1) PNEUMOVAX AGE 65 AND OVER WITH 5YR LOOKBACK (#1) [facility] Start: 10-23-2018 DIABETES SCREEN DIABETES SCREEN [facility] Start: 03-06-2018 Screening for malignant neoplasm of colon [facility] Start: 08-12-2017 End: 08-12-2017 Appointment Appointment [facility] Work Phone: Start: 02-03-2017 End: 01-29-2017 *Hepatic Function Panel *Hepatic Function Panel [facility] Work Phone: Start: 02-03-2017 End: 01-29-2017 Lipid panel [AGGREGATE] *Lipid Profile CC PCP [facility] Work Phone: Start: 02-02-2017 End: 02-02-2017 Appointment Appointment [facility] Work Phone: Start: 02-02-2017 End: 02-02-2017 SUPERVISOR TRA[employer] C[employer] SUPERVISOR TRAVEL INFORMATION CENTER [facility] Work Phone: Start: 02-02-2017 End: 02-02-2017 Follow Up Appt 6 months Follow Up Appt 6 months [facility] Work Phone: Start: 10-07-2016 End: 08-05-2016 *Hepatic Function Panel *Hepatic Function Panel [facility] Work Phone: Start: 10-07-2016 End: 08-05-2016 Lipid panel [AGGREGATE] *Lipid Profile CC PCP [facility] Work Phone: Start: 08-06-2016 End: 08-06-2016 Follow Up Appt 6 months Follow Up Appt 6 months [facility] Work Phone: Start: 08-06-2016 End: 08-06-2016 MMM MMM [facility] Work Phone: Start: 06-24-2016 End: 06-29-2016 Follow Up Appt 6 months Follow Up Appt 6 months [facility] Work Phone: Start: 06-24-2016 End: 06-30-2016 Primary Care Physician Primary Care Physician Teresa Boggs DO, [facility], [address] [place] [address], [address], [place], [address] [facility] Work Phone: Start: 04-15-2016 End: 05-11-2016 Follow Up Appt Other Follow Up Appt Other [facility] Work Phone: Start: 04-03-2016 End: 04-03-2016 SUPER[employer]OR [employer] SUPERVISOR TRA[employer] [facility] Work Phone: Start: 04-03-2016 [...] 01-02-2016 Cardiac Rehab Cardiac Rehab [address] [place], [address] [facility] Work Phone: Start: 11-15-2015 End: 11-15-2015 SUPER[employer]OR [employer] SUPER[employer] [facility] Work Phone: Start: 11-15-2015 End: 11-15-2015 Echocardiography Echocardiogram (complete) [facility] Work Phone: Start: 11-15-2015 End: 11-15-2015 Electrocardiogram, complete EKG (In office) [facility] Work Phone: Start: 11-15-2015 End: 11-15-2015 Follow Up Appt 3 months Follow Up Appt 3 months [facility] Work Phone: Start: 10-31-2015 End: 12-09-2015 Arterial exam Arterial exam [facility] Work Phone: Start: 08-15-2015 End: 08-15-2015 Follow Up Appt 6 months Follow Up Appt 6 months [facility] Work Phone: Start: 08-15-2015 End: 08-15-2015 MMM MMM [facility] Work Phone: Start: 08-09-2015 End: 09-04-2015 *Hepatic Function Panel *Hepatic Function Panel [facility] Work Phone: Start: 08-09-2015 End: 09-04-2015 Lipid panel [AGGREGATE] *Lipid Profile CC PCP [facility] Work Phone: Start: 06-11-2015 End: 01-25-2017 HbA1c HGB A1C (Office) [facility] Work Phone: Start: 05-19-2015 Urine microalbumin profile DTAP,TDAP,TD (2 - Tdap) [facility] Start: 04-04-2015 End: 01-25-2017 Mammogram, screening Mammogram, Screening, both breasts [facility] Work Phone: Start: 03-14-2015 End: 03-14-2015 SUPERVISOR TRA[employer]EL [employer]FORMATION CENTER SUPERVISOR TRA[employer]FORMATION [employer] [facility] Work Phone: Start: 03-14-2015 End: 03-14-2015 Follow Up Appt 6 months Follow Up Appt 6 months [facility] Work Phone: Start: 02-06-2015 End: 02-06-2015 *BMP *BMP [facility] Work Phone: Start: 02-06-2015 End: 02-06-2015 *CBC with Differential *CBC with Differential [facility] Work Phone: Start: 02-06-2015 End: 02-06-2015 SUPERVISOR TRA[employer]EL [employer]FORMATION CENTER SUPER[employer]FORMATION [employer] [facility] Work Phone: Start: 02-06-2015 End: 02-06-2015 Electrocardiogram, complete EKG (In office) [facility] Work Phone: Start: 02-06-2015 End: 02-06-2015 Follow Up Appt 1 month Follow Up Appt 1 month [facility] Work Phone: Start: 02-06-2015 End: 02-06-2015 Follow Up Appt 6 months Follow Up Appt 6 months [facility] Work Phone: Start: 02-06-2015 End: 02-06-2015 MMM MMM [facility] Work Phone: Start: 02-06-2015 End: 02-06-2015 Nuclear stress test -Lexiscan Nuclear stress test -Lexiscan [place] [facility] Work Phone: Start: 02-06-2015 End: 02-06-2015 Thyroid stimulating hormone (TSH) *TSH [facility] Work Phone: Start: 02-06-2015 End: 02-06-2015 Thyroxine (T4) *T4 (Total) [facility] Work Phone: Start: 01-31-2015 End: 02-06-2015 *Hepatic Function Panel *Hepatic Function Panel [facility] Work Phone: Start: 01-31-2015 End: 02-06-2015 Lipid panel [AGGREGATE] *Lipid Profile CC PCP [place] [facility] Work Phone: Start: 08-07-2014 End: 08-07-2014 Follow Up Appt 6 months Follow Up Appt 6 months [facility] Work Phone: Start: 08-07-2014 End: 08-07-2014 MMM MMM [place] [facility] Work Phone: Start: 07-29-2014 End: 08-03-2014 *Hepatic Function Panel *Hepatic Function Panel [place] [facility] Work Phone: Start: 07-29-2014 End: 08-03-2014 Lipid panel [AGGREGATE] *Lipid Profile CC PCP [facility] Work Phone: Start: 07-24-2014 End: 07-27-2014 *BMP *BMP [facility] Work Phone: Start: 07-24-2014 End: 07-26-2014 Urine culture, bacteria *CUUR - Culture, Urine ([place] Count) [place] [facility] Work Phone: Start: 02-28-2014 End: 03-09-2014 *BMP *BMP [place] [facility] Work Phone: Start: 02-28-2014 End: 03-09-2014 *UA - Urinalysis w/o Micro *UA - Urinalysis w/o Micro [facility] Work Phone: Start: 02-28-2014 End: 03-09-2014 CBC W Auto Differential panel - Blood *CBC without Diff [facility] Work Phone: Start: 02-28-2014 End: 03-21-2014 Mammogram, Screening, both breasts Mammogram, Screening, both breasts [facility] Work Phone: Start: 02-28-2014 End: 03-09-2014 Thyroid stimulating hormone (TSH) *TSH [facility] Work Phone: Start: 01-25-2014 End: 01-25-2014 SUPERVISOR TRAVEL INFORMATION CENTER SUPERVISOR TRAVEL INFORMATION CENTER [facility] Work Phone: Start: 01-25-2014 End: 01-25-2014 Follow Up Appt 6 months Follow Up Appt 6 months [facility] Work Phone: Start: 01-25-2014 End: 01-25-2014 Follow Up Appt Other Follow Up Appt Other [facility] Work Phone: Start: 12-26-2013 End: 02-01-2014 *Hepatic Function Panel *Hepatic Function Panel [facility] Work Phone: Start: 12-26-2013 End: 02-01-2014 Lipid panel [AGGREGATE] *Lipid Profile CC PCP [facility] Work Phone: Start: 07-28-2013 End: 07-28-2013 Follow Up Appt 6 months Follow Up Appt 6 months [facility] Work Phone: Start: 07-28-2013 End: 07-28-2013 MMM MMM [facility] Work Phone: Start: 07-25-2013 End: 07-26-2013 *NEFTALY - Fungus, NEFTALY Prep *NEFTALY - Fungus, NEFTALY Prep [facility] Work Phone: Start: 07-25-2013 End: 07-26-2013 Occult blood, feces Occult Stools (Office) [facility] Work Phone: Start: 07-25-2013 End: 07-25-2013 Transvaginal us, non-ob US Transvaginal [facility] Work Phone: Start: 07-25-2013 End: 07-26-2013 Trichomonas vaginalis [Presence] in Unspecified specimen by Wet preparation *WP - Wet Prep - Trichomonas [facility] Work Phone: Start: 07-25-2013 End: 07-26-2013 Urinalysis nonauto w/o scope UA Dipstick (Office) [facility] Work Phone: Start: 07-25-2013 End: 07-26-2013 Urine culture, bacteria *CUUR - Culture, Urine ([place] Count) [facility] Work Phone: Start: 07-25-2013 End: 07-26-2013 Other Other [facility] Work Phone: Start: 05-24-2013 End: 07-26-2013 Rheumatology Referral Rheumatology Referral Jeb Montero MD, [address] [place] [address], [id number] [facility] Work Phone: Start: 04-28-2013 End: 01-24-2014 *Hepatic Function Panel *Hepatic Function Panel [facility] Work Phone: Start: 04-28-2013 End: 01-24-2014 Lipid panel [AGGREGATE] *Lipid Profile [facility] Work Phone: Start: 04-27-2013 End: 04-27-2013 *Hepatic Function Panel *Hepatic Function Panel [facility] Work Phone: Start: 04-27-2013 End: 04-27-2013 SUPERVISOR TRAVEL INFORMATION CENTER SUPERVISOR TRAVEL INFORMATION CENTER [facility] Work Phone: Start: 04-27-2013 End: 04-27-2013 Follow Up Appt 3 months Follow Up Appt 3 months [facility] Work Phone: Start: 04-27-2013 End: 04-27-2013 Lipid panel [AGGREGATE] *Lipid Profile CC PCP [facility] Work Phone: Start: 04-12-2013 End: 04-13-2013 Cardiac Rehab Cardiac Rehab [facility] Work Phone: Start: 03-23-2013 End: 03-24-2013 Left Heart Cath W/Grafts Left Heart Cath W/Grafts [facility] Work Phone: Start: 10-26-2012 End: 10-31-2012 *Hepatic Function Panel *Hepatic Function Panel [facility] Work Phone: Start: 10-26-2012 End: 10-26-2012 Echocardiography Echocardiogram (complete) [facility] Work Phone: Start: 10-26-2012 End: 10-26-2012 Follow Up Appt 6 months Follow Up Appt 6 months [facility] Work Phone: Start: 10-26-2012 End: 10-31-2012 Lipid panel [AGGREGATE] *Lipid Profile [facility] Work Phone: Start: 10-26-2012 End: 10-26-2012 MMM MMM [facility] Work Phone: Start: 06-09-2006 Mammography MAMMOGRAM [facility] Start: 2004 Screening for malignant neoplasm of colon [facility] Start: 2004 SHINGRIX VACCINE (1 of 2) SHINGRIX VACCINE (1 of 2) [facility] Start: 1966 Adult depression screening assessment DEPRESSION SCREENING [facility] Start: 1966 COVID-19 VACCINE (1) COVID-19 VACCINE (1) [facility] Basic metabolic 2000 panel - Serum or Plasma BASIC METABOLIC PNL Lab Routine Benign Hypertension Ordered: 08/29/2007 [facility] Immunizations Immunization Date Immunization Notes Care Provider Denisse soliz 05-19-2005 diphtheria and tetan us toxoids, adsorbed for pediatric use [facility] 05-06-2005 influenza virus vacc ine, unspecified formulation [facility] 04-24-2003 influenza virus vacc ine, unspecified formulation [facility] Payers Date Payer Category Payer Unknown [facility] [place] [employer] [facility] [place] [employer] / ISLAM [id number] 2007-2008 [facility] 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 2. h/o angioedema: diagnosed [facility] few years ago, and she was on [...] Moises Muniz MD documented in this encounter [facility] Nurse Note 08-29-2007 08/29/2007 4:00 PM EST Note Date & Type Note Facility 08-29-2007 Nurse Note >> NEIDA HASSANIreneJIGNESH JUAN Mon Aug 29, 2007 3:49 PM Is the patient having any pain? Yes: LOCATION: joints in hands ,wrists, elbows PAIN SCALE: 6 on a scale of 0-10 Neida Morales Madocumented in this encounter [facility] Evaluation note Note Date & Type Note Facility documented in this encounter [facility] Additional Source Comments Source Comments (unrecognize d section and content) In the event this informatio n is protected by the Federal Confidentiality of Alcohol and Drug Abuse Patient Records regulations: The Federal rules restrict any use of the information to criminally investigate or prosecute any alcohol or drug abuse patient.[facility] Reason for Visit (unrecogniz ed section and [...] BE BASED ON THE PRIMARY CLINICAL RECORDS. [facility] [employer] [facility]. provides no warranty or guarantee of the accuracy or completeness of information in this document.
[2023-07-27 16:34] LABS: AST(SGOT) 22 U/L (15-37); Alanine Aminotransfer ALT/SGPT 24 U/L (13-56); Albumin, Serum 3.9 g/dL (3.2-5.0); Alkaline Phosphatase 58 U/L (45-117); Bilirubin, Direct 0.14 mg/dL (0.00-0.30); Free T3 2.3 pg/mL (2.18-3.98); Globulin 3.1 g/dL (2.2-4.2); Thyroid Stim Hormone (TSH) 2.19 uIU/mL (0.358-3.74)
== END | disposition home or self-care (01) ==
LOC: LAB 14:37
PROVIDERS: PCP Family Medicine; Referring Provider Family Medicine; Visit Provider Family Medicine
DX: E03.9 Hypothyroidism, unspecified (principal); R74.8 Abnormal levels of other serum enzymes
CPT/HCPCS: 36415; 80076; 84439; 84443; 84481

== ENCOUNTER → 2023-08-10 | Outpatient (CLI) | payer MEDICARE, SELFPAY ==
[2022-04-30 10:36] VITALS: BMI 31.4
--- OUTSIDE RECORDS SUMMARY | 2023-08-10 08:32 | XMS RPT_ITS | CCD ---
Author Name Unknown Address [address] [place] [address] Organization [facility] Care Team Providers Care Compound Mixer Name Role Phone Sejal Lyons Unavailable Unavailable Roof PRESS TENDER INCENDIARY GRENADE, Carrington H Unavailable Roof PRESS TENDER INCENDIARY GRENADE, Carrington H Unavailable Sejal Lyons Unavailable Unavailable Sejal Lyons Unavailable Unavailable Sejal Lyons Unavailable Unavailable Moises Muniz (Res) Primary Care Provider Unavail able Allergies Allergy Classification Reported Allergen(s) Allergy Type Date of Onset Reaction(s) Facility Acetaminophen / oxyCODONE (1 source) Acetaminophen / oxyCODONE Drug Allergy [address] [facility] Adhesive Tape (1 source) Adhesive Tape Substance Allergy 8 [facility] Furosemide (1 source) Furosemide Drug Allergy [address] [facility] Opioid Agonists (2 sources) Codeine Drug Allergy 7 Rash, GI Upset [facility] (6 sources) acetaminophen drug allergy 3 rash [facility] Work Phone: [phone] (6 sources) acetaminophen / oxyCODONE drug allergy 3 rash [facility] Work Phone: [phone] (6 sources) Adhesive Tape; Translations: [ADHESIVE TAPE] allergy to substance [facility] Work Phone: [phone] (6 sources) Angiotensin Converting Enzyme (Nicholas) Inhibitors drug allergy 8 angioedema [facility] Work Phone: [phone] (6 sources) apis mellifera venom; Translations: [BEE STINGS] allergy to substance 4 [facility] Work Phone: [phone] (6 sources) codeine drug allergy 3 [facility] Work Phone: (6 sources) doxazosin drug allergy 6 Heart rate dropped [facility] Work Phone: (6 sources) furosemide drug allergy 3 rash [facility] Work Phone: (6 sources) traMADol drug allergy 3 [facility] Work Phone: Medications Completed/Discontinued Medications Medication Drug Class(es) Dates Sig (Normalized) Sig (Original) acetaminophen 500 mg oral tablet (18 sources) Start: 02-28-2014 End: 11-06-2015 take 2 tablets by mouth once daily as needed TYLENOL EXTRA STRENGTH 500 MG TABS Two tablets by mouth daily as needed ACETAMINOPHEN [id number] Teresa Boggs DO ALBUTEROL SULFATE (12 sources) beta2-Adrenergic Agonist Start: 09-10-2015 End: 04-03-2016 VENTOLIN HFA 108 (90 Base) MCG/ACT AERS 2 puffs inhaled every 4-6 hours as needed ALBUTEROL SULFATE [id number] Teresa Boggs DO Problems Active Problems Problem [...] 11-06-2015 Episodic Other aftercare (10 sources) Other custodial (current) drug therapy; Translations: [Long-term (current) use [...] (Body Mass Index) 31.68 kg/m2 Sejal Graves [facility] Work Phone: 02-02-2017 12:59-0400 BP [...] Mass Index) 33.44 kg/m2 Carrington Wakefield NP [email or web address] Work Phone: 08-06-2016 09:42-0500 BP Diastolic 60 mm[Hg] Carrington Wakefield PRESS TENDER INCENDIARY GRENADE [facility] Work Phone: 08-06-2016 09:42-0500 BP Systolic 110 mm[Hg] Carrington Wakefield PRESS TENDER INCENDIARY GRENADE [facility] Work Phone: 08-06-2016 09:42-0500 BSA (Body Surface Area) 1.8 m2 Carrington Wakefield PRESS TENDER INCENDIARY GRENADE [facility] Work Phone: 08-06-2016 09:42-0500 Pulse (Heart Rate) 52 /min Carrington Wakefield PRESS TENDER INCENDIARY GRENADE [facility] Work Phone: 08-06-2016 09:42-0500 Respiratory Rate 20 /min Carrington Wakefield PRESS TENDER INCENDIARY GRENADE [facility] Work Phone: 08-06-2016 09:42-0500 Weight 80.29 kg Carrington Wakefield PRESS TENDER INCENDIARY GRENADE [facility] Work Phone: 06-24-2016 13:47-0500 Body Temperature 97.9 [degF] Carrington Wakefield PRESS TENDER INCENDIARY GRENADE [facility] Work Phone: 06-24-2016 13:47-0500 Height 154.94 cm Carrington Wakefield PRESS TENDER [employer]IARY GRENADE [facility] Work Phone: 06-24-2016 13:47-0500 Weight 81.36 kg Carrington Wakefield PRESS TENDER INCENDIARY GRENADE [facility] Work Phone: 11-15-2015 11:19-0400 Heart rate 52 /min Carrington Wakefield PRESS TENDER INCENDIARY GRENADE [facility] Work Phone: 04-27-2013 10:39-0400 Heart rate 429 ms Carrington Wakefield PRESS TENDER INCENDIARY GRENADE [facility] Work Phone: 08-29-2007 16:00-0500 Body weight 68.04 kg [facility] 08-29-2007 16:00-0500 Diastolic blood pressure 70 mm[Hg] [facility] 08-29-2007 16:00-0500 Heart rate 60 /min [facility] 08-29-2007 16:00-0500 Systolic blood pressure 144 mm[Hg] [facility] Encounters Encounter Date Encounter Type Care Provider Facility Start: 08-29-2007 End: 08-29-2007 Patient encounter procedure Moises (Res) Flavio [facility] Procedures Date Procedure Procedure Detail Performing Clinician Start: 02-02-2017 End: 02-02-2017 [employer] DEVEL[employer] Ana Bailey PA-C Work Phone: Start: 02-02-2017 [...] Carlos Peoples MD Start: 04-03-2016 End: 04-03-2016 [employer] Braeden Jones WIRE LOOP MACHINE OPERATOR-C Start: 04-03-2016 End: 04-03-2016 Follow Up Appt 4 months Braeden Jones WIRE LOOP MACHINE OPERATOR -C Start: 03-06-2016 End: 04-08-2016 *Hepatic Function Panel Ana solorzano PA-C Work Phone: Start: 03-06-2016 End: 04-08-2016 Lipid panel [AGGREGATE] Ana solorzano PA-C Work Phone: Start: 11-15-2015 End: 11-15-2015 [employer] Dustin Lemus MD Start: 11-15-2015 End: 12-09-2015 Echocardiography Dustin Lemus MD Start: 11-15-2015 End: 11-15-2015 Electrocardiogram, complete Dustin Moseley i, MD Start: 11-15-2015 End: 11-15-2015 Follow Up Appt 3 months Merrill Joyner Start: 11-15-2015 End: 11-16-2015 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 Dustin Lemus MD Start: 11-06-2015 Placement of stent in coronary artery Mutilple coronary stents Carrington Wakefield PRESS TENDER INCENDIARY GRENADE Start: 10-31-2015 End: 12-09-2015 Arterial exam Carlos [...] PA-C Work Phone: Start: 03-14-2015 End: 03-14-2015 [employer]EL[employer] Ana Bailey PA-C Work Phone: Start: 03-14-2015 [...] PA-C Work Phone: Start: 02-06-2015 End: 02-06-2015 [employer] DEVELOPER Ana Bailey PA-C Work Phone: Start: 02-06-2015 [...] 08-07-2014 Follow Up Appt 6 months Merrill Joyenr Start: 08-07-2014 End: 08-07-2014 MMM Dustin Lemus [...] of patient Health maintenance exam Carrington Ashu PRESS TENDER INCENDIARY GRENADE Start: 02-28-2014 End: 03-21-2014 Mammogram, Screening, both breasts Sun Ritchie MD Start: 02-28-2014 Screening mammography Screening mammogram NEC Carrington Wakefield PRESS TENDER INCENDIARY GRENADE Start: 02-28-2014 End: 03-09-2014 Thyroid stimulating hormone (TSH) Sun Ritchie MD Start: 01-25-2014 End: 01-25-2014 [employer] DEVELOPER Ana Bailey PA-C Work Phone: Start: 01-25-2014 [...] PA-C Work Phone: Start: 04-27-2013 End: 04-27-2013 [employer] DEVELOPER Ana Bailey PA-C Work Phone: Start: 04-27-2013 [...] Chavez MD Work Phone: Start: 03-06-2013 Colonoscopy Mioses Muniz Start: 10-26-2012 End: 10-31-2012 *Hepatic Function [...] Start: 02-26-2021 Influenza vaccination INFLUENZA (Season Ended) [facility] Start: 10-22-2020 L[address] SCREEN LIPID SCREEN [facility] Start: 2019 ADVANCE DIRECTIVE DISCUSSION ADVANCE DIRECTIVE DISCUSSION [facility] Start: 2019 BONE DENSITY BONE DENSITY [facility] Start: 2019 PNEUMOVAX AGE 65 AND OVER WITH 5YR LOOKBACK (#1) PNEUMOVAX AGE 65 AND OVER WITH 5YR LOOKBACK (#1) [facility] Start: 10-23-2018 DIABETES SCREEN DIABETES SCREEN [facility] Start: 03-06-2018 Screening for malignant neoplasm of colon [facility] Start: 08-12-2017 End: 08-12-2017 Appointment Appointment [facility] Work Phone: Start: 02-03-2017 End: 01-29-2017 *Hepatic Function Panel *Hepatic Function Panel [facility] Work Phone: Start: 02-03-2017 End: 01-29-2017 Lipid panel [AGGREGATE] *Lipid Profile CC PCP [facility] Work Phone: Start: 02-02-2017 End: 02-02-2017 Appointment Appointment [facility] Work Phone: Start: 02-02-2017 End: 02-02-2017 [employer] FIN[employer]CIALS DEVELOPER [employer]LE FINANCIALS DEVELOPER [facility] Work Phone: Start: 02-02-2017 End: 02-02-2017 Follow Up Appt 6 months Follow Up Appt 6 months [facility] Work Phone: Start: 10-07-2016 End: 08-05-2016 *Hepatic Function Panel *Hepatic Function Panel [facility] Work Phone: Start: 10-07-2016 End: 08-05-2016 Lipid panel [AGGREGATE] *Lipid Profile CC PCP [facility] Work Phone: Start: 08-06-2016 End: 08-06-2016 Follow Up Appt 6 months Follow Up Appt 6 months [facility] Work Phone: Start: 08-06-2016 End: 08-06-2016 MMM MMM [facility] Work Phone: Start: 06-24-2016 End: 06-29-2016 Follow Up Appt 6 months Follow Up Appt 6 months [facility] Work Phone: Start: 06-24-2016 End: 06-30-2016 Primary Care Physician Primary Care Physician Teresa Boggs DO, [facility], [address] [place] [address], [address], [place], [address] [facility] Work Phone: Start: 04-15-2016 End: 05-11-2016 Follow Up Appt Other Follow Up Appt Other [facility] Work Phone: Start: 04-03-2016 End: 04-03-2016 [employer] DEVELOPER [employer] DEVELOPER [facility] Work Phone: Start: 04-03-2016 End: [...] Cardiac Rehab Cardiac Rehab [address] [place], [address] [facility] Work Phone: Start: 11-15-2015 End: 11-15-2015 [employer] FIN[employer]CIALS DEVELOPER [employer] FINANCIALS DEVELOPER [facility] Work Phone: Start: 11-15-2015 End: 11-15-2015 Echocardiography Echocardiogram (complete) [facility] Work Phone: Start: 11-15-2015 End: 11-15-2015 Electrocardiogram, complete EKG (In office) [facility] Work Phone: Start: 11-15-2015 End: 11-15-2015 Follow Up Appt 3 months Follow Up Appt 3 months [facility] Work Phone: Start: 10-31-2015 End: 12-09-2015 Arterial exam Arterial exam [facility] Work Phone: Start: 08-15-2015 End: 08-15-2015 Follow Up Appt 6 months Follow Up Appt 6 months [facility] Work Phone: Start: 08-15-2015 End: 08-15-2015 MMM MMM [facility] Work Phone: Start: 08-09-2015 End: 09-04-2015 *Hepatic Function Panel *Hepatic Function Panel [facility] Work Phone: Start: 08-09-2015 End: 09-04-2015 Lipid panel [AGGREGATE] *Lipid Profile CC PCP [facility] Work Phone: Start: 06-11-2015 End: 01-25-2017 HbA1c HGB A1C (Office) [facility] Work Phone: Start: 05-19-2015 Urine microalbumin profile DTAP,TDAP,TD (2 - Tdap) [facility] Start: 04-04-2015 End: 01-25-2017 Mammogram, screening Mammogram, Screening, both breasts [facility] Work Phone: Start: 03-14-2015 End: 03-14-2015 [employer] DEVELOPER [employer] DEVELOPER [facility] Work Phone: Start: 03-14-2015 End: 03-14-2015 Follow Up Appt 6 months Follow Up Appt 6 months [facility] Work Phone: Start: 02-06-2015 End: 02-06-2015 *BMP *BMP [facility] Work Phone: Start: 02-06-2015 End: 02-06-2015 *CBC with Differential *CBC with Differential [facility] Work Phone: Start: 02-06-2015 End: 02-06-2015 [employer] DEVELOPER [employer]CIALS DEVELOPER [facility] Work Phone: Start: 02-06-2015 End: 02-06-2015 Electrocardiogram, complete EKG (In office) [facility] Work Phone: Start: 02-06-2015 End: 02-06-2015 Follow Up Appt 1 month Follow Up Appt 1 month [facility] Work Phone: Start: 02-06-2015 End: 02-06-2015 Follow Up Appt 6 months Follow Up Appt 6 months [employer] [facility] Work Phone: Start: 02-06-2015 End: 02-06-2015 MMM MMM [facility] Work Phone: Start: 02-06-2015 End: 02-06-2015 Nuclear stress test -Lexiscan Nuclear stress test -Lexiscan [facility] Work Phone: Start: 02-06-2015 End: 02-06-2015 Thyroid stimulating hormone (TSH) *TSH [facility] Work Phone: Start: 02-06-2015 End: 02-06-2015 Thyroxine (T4) *T4 (Total) [facility] Work Phone: Start: 01-31-2015 End: 02-06-2015 *Hepatic Function Panel *Hepatic Function Panel [facility] Work Phone: Start: 01-31-2015 End: 02-06-2015 Lipid panel [AGGREGATE] *Lipid Profile CC PCP [facility] Work Phone: Start: 08-07-2014 End: 08-07-2014 Follow Up Appt 6 months Follow Up Appt 6 months [facility] Work Phone: Start: 08-07-2014 End: 08-07-2014 MMM MMM [facility] Work Phone: Start: 07-29-2014 End: 08-03-2014 *Hepatic Function Panel *Hepatic Function Panel [facility] Work Phone: Start: 07-29-2014 End: 08-03-2014 Lipid panel [AGGREGATE] *Lipid Profile CC PCP [facility] Work Phone: Start: 07-24-2014 End: 07-27-2014 *BMP *BMP [facility] Work Phone: Start: 07-24-2014 End: 07-26-2014 Urine culture, bacteria *CUUR - Culture, Urine ([place] Count) [facility] Work Phone: Start: 02-28-2014 End: 03-09-2014 *BMP *BMP [facility] Work Phone: Start: 02-28-2014 End: 03-09-2014 *UA - Urinalysis w/o Micro *UA - Urinalysis w/o Micro [facility] Work Phone: Start: 02-28-2014 End: 03-09-2014 CBC W Auto Differential panel - Blood *CBC without Diff [facility] Work Phone: Start: 02-28-2014 End: 03-21-2014 Mammogram, Screening, both breasts Mammogram, Screening, both breasts [facility] Work Phone: Start: 02-28-2014 End: 03-09-2014 Thyroid stimulating hormone (TSH) *TSH [facility] Work Phone: Start: 01-25-2014 End: 01-25-2014 [employer] FINANCIALS DEVELOPER [employer]CIALS DEVELOPER [facility] Work Phone: Start: 01-25-2014 End: 01-25-2014 Follow Up Appt 6 months Follow Up Appt 6 months [employer] [facility] Work Phone: Start: 01-25-2014 End: 01-25-2014 Follow Up Appt Other Follow Up Appt Other [employer] [facility] Work Phone: Start: 12-26-2013 End: 02-01-2014 *Hepatic Function Panel *Hepatic Function Panel [facility] Work Phone: Start: 12-26-2013 End: 02-01-2014 Lipid panel [AGGREGATE] *Lipid Profile CC PCP [facility] Work Phone: Start: 07-28-2013 End: 07-28-2013 Follow Up Appt 6 months Follow Up Appt 6 months [facility] Work Phone: Start: 07-28-2013 End: 07-28-2013 MMM MMM [facility] [facility] Work Phone: Start: 07-25-2013 End: 07-26-2013 *NEFTALY - Fungus, NEFTALY Prep *NEFTALY - Fungus, NEFTALY Prep [facility] Work Phone: Start: 07-25-2013 End: 07-26-2013 Occult blood, feces Occult Stools (Office) [employer] [facility] [facility] Work Phone: Start: 07-25-2013 End: 07-25-2013 Transvaginal us, non-ob US Transvaginal [facility] Work Phone: Start: 07-25-2013 End: 07-26-2013 Trichomonas vaginalis [Presence] in Unspecified specimen by Wet preparation *WP - Wet Prep - Trichomonas [facility] Work Phone: Start: 07-25-2013 End: 07-26-2013 Urinalysis nonauto w/o scope UA Dipstick (Office) [facility] Work Phone: Start: 07-25-2013 End: 07-26-2013 Urine culture, bacteria *CUUR - Culture, Urine ([place] Count) [facility] Work Phone: Start: 07-25-2013 End: 07-26-2013 Other Other [facility] Work Phone: Start: 05-24-2013 End: 07-26-2013 Rheumatology Referral Rheumatology Referral Jeb Montero MD, [address] [place] [address], [id number] [facility] Work Phone: Start: 04-28-2013 End: 01-24-2014 *Hepatic Function Panel *Hepatic Function Panel [facility] Work Phone: Start: 04-28-2013 End: 01-24-2014 Lipid panel [AGGREGATE] *Lipid Profile [facility] Work Phone: Start: 04-27-2013 End: 04-27-2013 *Hepatic Function Panel *Hepatic Function Panel [facility] Work Phone: Start: 04-27-2013 End: 04-27-2013 [employer]LE FINANCIALS DEVELOPER [employer]ANCIALS DEVELOPER [facility] Work Phone: Start: 04-27-2013 End: 04-27-2013 Follow Up Appt 3 months Follow Up Appt 3 months [facility] Work Phone: Start: 04-27-2013 End: 04-27-2013 Lipid panel [AGGREGATE] *Lipid Profile CC PCP [facility] Work Phone: Start: 04-12-2013 End: 04-13-2013 Cardiac Rehab Cardiac Rehab [facility] Work Phone: Start: 03-23-2013 End: 03-24-2013 Left Heart Cath W/Grafts Left Heart Cath W/Grafts [facility] Work Phone: Start: 10-26-2012 End: 10-31-2012 *Hepatic Function Panel *Hepatic Function Panel [facility] Work Phone: Start: 10-26-2012 End: 10-26-2012 Echocardiography Echocardiogram (complete) [facility] Work Phone: Start: 10-26-2012 End: 10-26-2012 Follow Up Appt 6 months Follow Up Appt 6 months [facility] Work Phone: Start: 10-26-2012 End: 10-31-2012 Lipid panel [AGGREGATE] *Lipid Profile [facility] Work Phone: Start: 10-26-2012 End: 10-26-2012 MMM MMM [facility] Work Phone: Start: 06-09-[address] [facility] Start: 2004 Screening for malignant neoplasm of colon [facility] Start: 2004 SHINGRIX VACCINE (1 of 2) SHINGRIX VACCINE (1 of 2) [facility] Start: 1966 Adult depression screening assessment DEPRESSION SCREENING [facility] Start: 1966 COVID-19 VACCINE (1) COVID-19 VACCINE (1) [facility] Basic metabolic 2000 panel - Serum or Plasma BASIC METABOLIC PNL Lab Routine Benign Hypertension Ordered: 08/29/2007 [facility] Immunizations Immunization Date Immunization Notes Care Provider Denisse soliz 05-19-2005 diphtheria and tetan us toxoids, adsorbed for pediatric use [facility] 05-06-2005 influenza virus vacc ine, unspecified formulation [facility] 04-24-2003 influenza virus vacc ine, unspecified formulation [facility] Payers Date Payer Category Payer Unknown [facility] / [employer] [facility] [id number] 2007-2008 [facility] [id number] Social History Date Type Detail Facility Start: 06-06-2007 Tobacco smoking stat us NHIS Former smoker [facility] End: 06-07-1998 History of tobacco use Current smoker 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 2. h/o angioedema: diagnosed in the [facility] few years ago, and she was [...] Moises Muniz MD documented in this encounter [facility] Nurse Note 08-29-2007 08/29/2007 4:00 PM EST Note Date & Type Note Facility 08-29-2007 Nurse Note >> NEIDA HASSANIreneJIGNESH JUAN Mon Aug 29, 2007 3:49 PM Is the patient having any pain? Yes: LOCATION: joints in hands ,wrists, elbows PAIN SCALE: 6 on a scale of 0-10 Neida Morales Madocumented in this encounter [facility] Evaluation note Note Date & Type Note Facility documented in this encounter [facility] Additional Source Comments Source Comments (unrecognize d section and content) In the event this informatio n is protected by the Federal Confidentiality of Alcohol and Drug Abuse Patient Records regulations: The Federal rules restrict any use of the information to criminally investigate or prosecute any alcohol or drug abuse patient.[facility] Reason for Visit (unrecogniz ed section and [...] BE BASED ON THE PRIMARY CLINICAL RECORDS. [facility] [employer] [facility]. provides no warranty or guarantee of the accuracy or completeness of information in this document.
[2023-08-10 08:34] LABS: Absolute Lymphocyte Count 2.29 X10^3/uL (0.83-4.51); Absolute Neutrophil Count 5.5 X10^3/uL (2.0-7.7); Basophil# 0.07 X10^3/uL; Basophil% 0.8 % (0-1); Eosinophil# 0.29 X10^3/uL; Eosinophils% 3.3 % (0-5); Hematocrit 43.2 % (37-47); Lymphocyte # 2.29 X10^3/ul (0.83-4.51); Lymphocyte % 25.7 % (19-41); Mean Corp Hgb Conc 32.4 g/dL (32-36); Mean Corpuscular Hgb 31.2 pg (27.0-32.0); Mean Corpuscular Volume 96.2 fL (81-99); Monocyte# 0.72 X10^3/uL; Monocyte% 8.1 % (0-10); NRBC Flagged by Analyzer 0 % (0-5); Neutrophil # 5.47 X10^3/uL (2.7-7.7); Neutrophil % 61.3 % (47-70); Platelet Count 275 K/mm3 (150-450); RBC Distribution Width CV 12.5 % (11.6-14.6); RBC Distribution Width SD 44.4 fl (35.1-43.9); Red Blood Count 4.49 M/mm3 (4.2-5.4); White Blood Count 8.9 K/mm3 (4.4-11.0)
[2023-08-10 09:01] LABS: Anion Gap 6 (5-15); BUN 30 mg/dL (7-18); BUN/Creat Ratio 28.6 RATIO (10-20); CRP < 2.90 mg/L (0.0-3.0); Calcium,Total 9.5 mg/dL (8.5-10.1); Chloride 111 mmol/L (98-107); Creatinine, Serum 1.05 mg/dL (0.55-1.02); EST Glomerular Filtration Rate 55 mL/min (>60); Erythrocyte Sedimentation Rate 13 mm/hr (0-30); Est Glom Filt Rate - Afr Amer 67 mL/min (>60); Glucose 106 mg/dL (74-106); Potassium 3.9 mmol/L (3.5-5.1); Sodium Level 138 mmol/L (136-145)
== END | disposition home or self-care (01) ==
LOC: LAB 08:04
PROVIDERS: PCP Family Medicine; Referring Provider Family Medicine; Visit Provider Family Medicine
DX: R42 Dizziness and giddiness (principal); R51.9 Headache, unspecified
CPT/HCPCS: 36415; 80048; 85025; 85652; 86140

== ENCOUNTER → 2023-08-14 | Outpatient (CLI) | payer MEDICARE, SELFPAY ==
[2022-04-30 10:36] VITALS: BMI 31.4
--- OUTSIDE RECORDS SUMMARY | 2023-08-14 07:51 | XMS RPT_ITS | CCD ---
Author Name Unknown Address [address] [place] [address] Organization [facility] Care Team Providers Care Financial Assistance Specialist Name Role Phone Sejal Lyons Unavailable Unavailable Roof CHIEF MEDICAL OFFICER, Carrington H Unavailable Roof CHIEF MEDICAL OFFICER, Carrington H Unavailable Sejal Lyons Unavailable Unavailable Sejal Lyons Unavailable Unavailable Sejal Lyons Unavailable Unavailable Moises Muniz (Res) Primary Care Provider Unavail able Allergies Allergy Classification Reported Allergen(s) Allergy Type Date of Onset Reaction(s) Facility Acetaminophen / oxyCODONE (1 source) Acetaminophen / oxyCODONE Drug Allergy [address] [facility] Adhesive Tape (1 source) Adhesive Tape Substance Allergy 8 [facility] Furosemide (1 source) Furosemide Drug Allergy [address] [facility] Opioid Agonists (2 sources) Codeine Drug Allergy 7 Rash, GI Upset [facility] (6 sources) acetaminophen drug allergy 3 rash [facility] Work Phone: [phone] (6 sources) acetaminophen / oxyCODONE drug allergy 3 rash [facility] Work Phone: [phone] (6 sources) Adhesive Tape; Translations: [ADHESIVE TAPE] allergy to substance [facility] Work Phone: [phone] (6 sources) Angiotensin Converting Enzyme (Nicholas) Inhibitors drug allergy 8 angioedema [facility] Work Phone: [phone] (6 sources) apis mellifera venom; Translations: [BEE STINGS] allergy to substance 4 [facility] Work Phone: [phone] (6 sources) codeine drug allergy 3 [facility] Work Phone: (6 sources) doxazosin drug allergy 6 Heart rate dropped [facility] Work Phone: (6 sources) furosemide drug allergy 3 rash [facility] Work Phone: (6 sources) traMADol drug allergy 3 [facility] Work Phone: Medications Completed/Discontinued Medications Medication Drug Class(es) Dates Sig (Normalized) Sig (Original) acetaminophen 500 mg oral tablet (18 sources) Start: 02-28-2014 End: 11-06-2015 take 2 tablets by mouth once daily as needed TYLENOL EXTRA STRENGTH 500 MG TABS Two tablets by mouth daily as needed ACETAMINOPHEN [id number] Teresa Boggs DO ALBUTEROL SULFATE (12 sources) beta2-Adrenergic Agonist Start: 09-10-2015 End: 04-03-2016 VENTOLIN HFA 108 (90 Base) MCG/ACT AERS 2 puffs inhaled every 4-6 hours as needed ALBUTEROL SULFATE [id number] Teresa Boggs DO Problems Active Problems Problem [...] 11-06-2015 Episodic Other aftercare (10 sources) Other [facility] (current) drug therapy; Translations: [Long-term (current) use [...] (Body Mass Index) 31.68 kg/m2 Sejal Graves [employer] Work Phone: 02-02-2017 12:59-0400 BP [...] Index) 33.44 kg/m2 Carrington Wakefield NP [place] [facility] Work Phone: 08-06-2016 09:42-0500 BP Diastolic 60 mm[Hg] Carrington Wakefield CHIEF MEDICAL OFFICER [facility] Work Phone: 08-06-2016 09:42-0500 BP Systolic 110 mm[Hg] Carrington Wakefield CHIEF MEDICAL OFFICER [facility] Work Phone: 08-06-2016 09:42-0500 BSA (Body Surface Area) 1.8 m2 Carrington Wakefield CHIEF MEDICAL OFFICER [facility] Work Phone: 08-06-2016 09:42-0500 Pulse (Heart Rate) 52 /min Carrington Wakefield CHIEF MEDICAL OFFICER [facility] Work Phone: 08-06-2016 09:42-0500 Respiratory Rate 20 /min Carrington Wakefield CHIEF MEDICAL OFFICER [facility] Work Phone: 08-06-2016 09:42-0500 Weight 80.29 kg Carrington Wakefield CHIEF MEDICAL OFFICER [facility] Work Phone: 06-24-2016 13:47-0500 Body Temperature 97.9 [degF] Carrington Wakefield CHIEF MEDICAL OFFICER [facility] Work Phone: 06-24-2016 13:47-0500 Height 154.94 cm Carrington Wakefield CHIEF MEDICAL OFFICER [facility] Work Phone: 06-24-2016 13:47-0500 Weight 81.36 kg Carrington Wakefield CHIEF MEDICAL OFFICER [facility] Work Phone: 11-15-2015 11:19-0400 Heart rate 52 /min Carrington Wakefield CHIEF MEDICAL OFFICER [facility] Work Phone: 04-27-2013 10:39-0400 Heart rate 429 ms Carrington Wakefield CHIEF MEDICAL OFFICER [facility] Work Phone: 08-29-2007 16:00-0500 Body weight 68.04 kg [facility] 08-29-2007 16:00-0500 Diastolic blood pressure 70 mm[Hg] [facility] 08-29-2007 16:00-0500 Heart rate 60 /min [facility] 08-29-2007 16:00-0500 Systolic blood pressure 144 mm[Hg] [facility] Encounters Encounter Date Encounter Type Care Provider Facility Start: 08-29-2007 End: 08-29-2007 Patient encounter procedure Moises (Res) Flavio [facility] Procedures Date Procedure Procedure Detail Performing Clinician Start: 02-02-2017 End: 02-02-2017 PROPERTY ASSISTANT Ana Bailey PA-C Work Phone: Start: 02-02-2017 [...] Carlos Peoples MD Start: 04-03-2016 End: 04-03-2016 PROPERTY ASSISTANT Braeden Jones RADIO MECHANIC-C Start: 04-03-2016 End: 04-03-2016 Follow Up Appt 4 months Braeden Jones RADIO MECHANIC -C Start: 03-06-2016 End: 04-08-2016 *Hepatic Function Panel Ana solorzano PA-C Work Phone: Start: 03-06-2016 End: 04-08-2016 Lipid panel [AGGREGATE] Ana solorzano PA-C Work Phone: Start: 11-15-2015 End: 11-15-2015 PROPERTY ASSISTANT Dustin Lemus MD Start: 11-15-2015 End: 12-09-2015 Echocardiography Dustin Lemus MD Start: 11-15-2015 End: 11-15-2015 Electrocardiogram, complete Dustin Moseley i, MD Start: 11-15-2015 End: 11-15-2015 Follow Up Appt 3 months Merrill Joyner Start: 11-15-2015 End: 11-16-2015 Referral to wildlife biostation research ecologist Dustin Lemus MD Start: 11-06-2015 Placement of stent in coronary artery Mutilple coronary stents Carrington Wakefield CHIEF MEDICAL OFFICER Start: 10-31-2015 End: 12-09-2015 Arterial exam [...] PA-C Work Phone: Start: 03-14-2015 End: 03-14-2015 PROPERTY ASSISTANT Ana Bailey PA-C Work Phone: Start: 03-14-2015 [...] PA-C Work Phone: Start: 02-06-2015 End: 02-06-2015 PROPERTY ASSISTANT Ana Bailey PA-C Work Phone: Start: 02-06-2015 [...] 07-29-2014 End: 08-03-2014 *Hepatic Function Panel Merrill oJyner Start: 07-29-2014 End: 08-03-2014 Lipid panel [AGGREGATE] [...] of patient Health maintenance exam Carrington Ashu CHIEF MEDICAL OFFICER Start: 02-28-2014 End: 03-21-2014 Mammogram, Screening, both breasts Sun Ritchie MD Start: 02-28-2014 Screening mammography Screening mammogram NEC Carrington Wakefield CHIEF MEDICAL OFFICER Start: 02-28-2014 End: 03-09-2014 Thyroid stimulating hormone (TSH) Sun Ritchie MD Start: 01-25-2014 End: 01-25-2014 PROPERTY ASSISTANT Ana Bailey PA-C Work Phone: Start: 01-25-2014 [...] PA-C Work Phone: Start: 04-27-2013 End: 04-27-2013 PROPERTY ASSISTANT Ana Bailey PA-C Work Phone: Start: 04-27-2013 [...] Start: 02-26-2021 Influenza vaccination INFLUENZA (Season Ended) [facility] Start: 10-22-2020 LIPID SCREEN LIPID SCREEN [facility] Start: 2019 ADVANCE DIRECTIVE DISCUSSION ADVANCE DIRECTIVE DISCUSSION [facility] Start: 2019 BONE DENSITY BONE DENSITY [facility] Start: 2019 PNEUMOVAX AGE 65 AND OVER WITH 5YR LOOKBACK (#1) PNEUMOVAX AGE 65 AND OVER WITH 5YR LOOKBACK (#1) [facility] Start: 10-23-2018 DIABETES SCREEN DIABETES SCREEN [facility] Start: 03-06-2018 Screening for malignant neoplasm of colon [facility] Start: 08-12-2017 End: 08-12-2017 Appointment Appointment [facility] Work Phone: Start: 02-03-2017 End: 01-29-2017 *Hepatic Function Panel *Hepatic Function Panel [facility] Work Phone: Start: 02-03-2017 End: 01-29-2017 Lipid panel [AGGREGATE] *Lipid Profile CC PCP [facility] Work Phone: Start: 02-02-2017 End: 02-02-2017 Appointment Appointment [facility] Work Phone: Start: 02-02-2017 End: 02-02-2017 PROPERTY ASSISTANT PROPERTY ASSISTANT [facility] Work Phone: Start: 02-02-2017 End: 02-02-2017 Follow Up Appt 6 months Follow Up Appt 6 months [facility] Work Phone: Start: 10-07-2016 End: 08-05-2016 *Hepatic Function Panel *Hepatic Function Panel [facility] Work Phone: Start: 10-07-2016 [...] Physician Primary Care Physician Teresa Boggs DO, [facility], [address] [place] [address], [address], [place], [address] [facility] Work Phone: Start: 04-15-2016 End: 05-11-2016 Follow Up Appt Other Follow Up Appt Other [facility] Work Phone: Start: 04-03-2016 End: 04-03-2016 PROPERTY ASSISTANT PROPERTY ASSISTANT [facility] Work Phone: Start: 04-03-2016 End: [...] [facility] [address] [place], [address] [facility] Work Phone: Start: 11-15-2015 End: 11-15-2015 PROPERTY ASSISTANT PROPERTY ASSISTANT [facility] Work Phone: Start: 11-15-2015 End: 11-15-2015 Echocardiography Echocardiogram (complete) [facility] Work Phone: Start: 11-15-2015 End: 11-15-2015 Electrocardiogram, complete EKG (In office) [facility] Work Phone: Start: 11-15-2015 End: 11-15-2015 Follow Up Appt 3 months Follow Up Appt 3 months [facility] Work Phone: Start: 10-31-2015 End: 12-09-2015 Arterial exam Arterial exam [facility] Work Phone: Start: 08-15-2015 End: 08-15-2015 Follow Up Appt 6 months Follow Up Appt 6 months [facility] Work Phone: Start: 08-15-2015 End: 08-15-2015 MMM MMM [facility] Work Phone: Start: 08-09-2015 End: 09-04-2015 *Hepatic Function Panel *Hepatic Function Panel [facility] Work Phone: Start: 08-09-2015 End: 09-04-2015 Lipid panel [AGGREGATE] *Lipid Profile CC PCP [facility] Work Phone: Start: 06-11-2015 End: 01-25-2017 HbA1c HGB A1C (Office) [facility] Work Phone: Start: 05-19-2015 Urine microalbumin profile DTAP,TDAP,TD (2 - Tdap) [facility] Start: 04-04-2015 End: 01-25-2017 Mammogram, screening Mammogram, Screening, both breasts [facility] Work Phone: Start: 03-14-2015 End: 03-14-2015 PROPERTY ASSISTANT PROPERTY ASSISTANT [facility] Work Phone: Start: 03-14-2015 End: 03-14-2015 Follow Up Appt 6 months Follow Up Appt 6 months [facility] Work Phone: Start: 02-06-2015 End: 02-06-2015 *BMP *BMP [employer] Work Phone: Start: 02-06-2015 End: 02-06-2015 *CBC with Differential *CBC with Differential [facility] Work Phone: Start: 02-06-2015 End: 02-06-2015 PROPERTY ASSISTANT PROPERTY ASSISTANT [facility] Work Phone: Start: 02-06-2015 End: 02-06-2015 Electrocardiogram, complete EKG (In office) [facility] Work Phone: Start: 02-06-2015 End: 02-06-2015 Follow Up Appt 1 month Follow Up Appt 1 month [facility] Work Phone: Start: 02-06-2015 End: 02-06-2015 Follow Up Appt 6 months Follow Up Appt 6 months [facility] Work Phone: Start: 02-06-2015 End: 02-06-2015 MMM MMM [facility] Work Phone: Start: 02-06-2015 End: 02-06-2015 Nuclear stress test -Lexiscan Nuclear stress test -Lexiscan [facility] Work Phone: Start: 02-06-2015 End: 02-06-2015 Thyroid stimulating hormone (TSH) *TSH [facility] Work Phone: Start: 02-06-2015 End: 02-06-2015 Thyroxine (T4) *T4 (Total) [facility] Work Phone: Start: 01-31-2015 End: 02-06-2015 *Hepatic Function Panel *Hepatic Function Panel [facility] [facility] Work Phone: Start: 01-31-2015 End: 02-06-2015 Lipid panel [AGGREGATE] *Lipid Profile CC PCP [facility] Work Phone: Start: 08-07-2014 End: 08-07-2014 Follow Up Appt 6 months Follow Up Appt 6 months [facility] Work Phone: Start: 08-07-2014 End: 08-07-2014 MMM MMM [facility] Work Phone: Start: 07-29-2014 End: 08-03-2014 *Hepatic Function Panel *Hepatic Function Panel [facility] Work Phone: Start: 07-29-2014 End: 08-03-2014 Lipid panel [AGGREGATE] *Lipid Profile CC PCP [facility] Work Phone: Start: 07-24-2014 End: 07-27-2014 *BMP *BMP [facility] Work Phone: Start: 07-24-2014 End: 07-26-2014 Urine culture, bacteria *CUUR - Culture, Urine ([place] Count) [facility] Work Phone: Start: 02-28-2014 End: 03-09-2014 *BMP *BMP [facility] Work Phone: Start: 02-28-2014 End: 03-09-2014 *UA - Urinalysis w/o Micro *UA - Urinalysis w/o Micro [facility] Work Phone: Start: 02-28-2014 End: 03-09-2014 CBC W Auto Differential panel - Blood *CBC without Diff [facility] Work Phone: Start: 02-28-2014 End: 03-21-2014 Mammogram, Screening, both breasts Mammogram, Screening, both breasts [employer] Work Phone: Start: 02-28-2014 End: 03-09-2014 Thyroid stimulating hormone (TSH) *TSH [facility] Work Phone: Start: 01-25-2014 End: 01-25-2014 PROPERTY ASSISTANT PROPERTY ASSISTANT [employer] Work Phone: Start: 01-25-2014 End: 01-25-2014 Follow Up Appt 6 months Follow Up Appt 6 months [facility] Work Phone: Start: 01-25-2014 End: 01-25-2014 Follow Up Appt Other Follow Up Appt Other [facility] Work Phone: Start: 12-26-2013 End: 02-01-2014 *Hepatic Function Panel *Hepatic Function Panel [facility] Work Phone: Start: 12-26-2013 End: 02-01-2014 Lipid panel [AGGREGATE] *Lipid Profile CC PCP [employer] Work Phone: Start: 07-28-2013 End: 07-28-2013 Follow Up Appt 6 months Follow Up Appt 6 months [facility] Work Phone: Start: 07-28-2013 End: 07-28-2013 MMM MMM [facility] Work Phone: Start: 07-25-2013 End: 07-26-2013 *NEFTALY - Fungus, NEFTALY Prep *NEFTALY - Fungus, NEFTALY Prep [facility] Work Phone: Start: 07-25-2013 End: 07-26-2013 Occult blood, feces Occult Stools (Office) [facility] Work Phone: Start: 07-25-2013 End: 07-25-2013 Transvaginal us, non-ob US Transvaginal [facility] Work Phone: Start: 07-25-2013 End: 07-26-2013 Trichomonas vaginalis [Presence] in Unspecified specimen by Wet preparation *WP - Wet Prep - Trichomonas [employer] Work Phone: Start: 07-25-2013 End: 07-26-2013 Urinalysis nonauto w/o scope UA Dipstick (Office) [employer] Work Phone: Start: 07-25-2013 End: 07-26-2013 Urine culture, bacteria *CUUR - Culture, Urine ([place] Count) [employer] Work Phone: Start: 07-25-2013 End: 07-26-2013 Other Other [employer] Work Phone: Start: 05-24-2013 End: 07-26-2013 Rheumatology Referral Rheumatology Referral Jeb Montero MD, [address] [place] [address], [id number] [employer] Work Phone: Start: 04-28-2013 End: 01-24-2014 *Hepatic Function Panel *Hepatic Function Panel [employer] Work Phone: Start: 04-28-2013 End: 01-24-2014 Lipid panel [AGGREGATE] *Lipid Profile [facility] Work Phone: Start: 04-27-2013 End: 04-27-2013 *Hepatic Function Panel *Hepatic Function Panel [facility] Work Phone: Start: 04-27-2013 End: 04-27-2013 PROPERTY ASSISTANT PROPERTY ASSISTANT [employer] Work Phone: Start: 04-27-2013 End: 04-27-2013 Follow Up Appt 3 months Follow Up Appt 3 months [facility] Work Phone: Start: 04-27-2013 End: 04-27-2013 Lipid panel [AGGREGATE] *Lipid Profile CC PCP [facility] Work Phone: Start: 04-12-2013 End: 04-13-2013 Cardiac Rehab Cardiac Rehab [facility] Work Phone: Start: 03-23-2013 End: 03-24-2013 Left Heart Cath W/Grafts Left Heart Cath W/G[facility]s [facility] Work Phone: Start: 10-26-2012 End: 10-31-2012 *Hepatic Function Panel *Hepatic Function Panel [facility] Work Phone: Start: 10-26-2012 End: 10-26-2012 Echocardiography Echocardiogram (complete) [facility] Work Phone: Start: 10-26-2012 End: 10-26-2012 Follow Up Appt 6 months Follow Up Appt 6 months [facility] Work Phone: Start: 10-26-2012 End: 10-31-2012 Lipid panel [AGGREGATE] *Lipid Profile [facility] Work Phone: Start: 10-26-2012 End: 10-26-2012 MMM MMM [facility] Work Phone: Start: 06-09-[address] [facility] Start: 2004 Screening for malignant neoplasm of colon [facility] Start: 2004 SHINGRIX VACCINE (1 of 2) SHINGRIX VACCINE (1 of 2) [facility] Start: 1966 Adult depression screening assessment DEPRESSION SCREENING [facility] Start: 1966 COVID-19 VACCINE (1) COVID-19 VACCINE (1) [facility] Basic metabolic 2000 panel - Serum or Plasma BASIC METABOLIC PNL Lab Routine Benign Hypertension Ordered: 08/29/2007 [facility] Immunizations Immunization Date Immunization Notes Care Provider Denisse soliz 05-19-2005 diphtheria and tetan us toxoids, adsorbed for pediatric use [facility] 05-06-2005 influenza virus vacc ine, unspecified formulation [facility] 04-24-2003 influenza virus vacc ine, unspecified formulation [facility] Payers Date Payer Category Payer Unknown [facility] / [place] [id number] 2007-2008 [facility] [id number] Social History Date Type Detail Facility Start: 06-06-2007 Tobacco smoking stat us NHIS Former smoker [facility] End: 06-07-1998 History of tobacco use Current smoker 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 2. h/o angioedema: [facility] few years ago, and she [...] Muniz MD documented in this encounter [facility] Nurse Note 08-29-2007 08/29/2007 4:00 PM EST Note Date & Type Note Facility 08-29-2007 Nurse Note >> NEIDA HASSANIreneJIGNESH JUAN Mon Aug 29, 2007 3:49 PM Is the patient having any pain? Yes: LOCATION: joints in hands ,wrists, elbows PAIN SCALE: 6 on a scale of 0-10 Neida Morales Madocumented in this encounter [facility] Evaluation note Note Date & Type Note Facility documented in this encounter [facility] Additional Source Comments Source Comments (unrecognize d section and content) In the event this informatio n is protected by the Federal Confidentiality of Alcohol and Drug Abuse Patient Records regulations: The Federal rules restrict any use of the information to criminally investigate or prosecute any alcohol or drug abuse patient.[facility] Reason for Visit (unrecogniz ed section [...] BE BASED ON THE PRIMARY CLINICAL RECORDS. [facility] [employer] [facility]. provides no warranty or guarantee of the accuracy or completeness of information in this document.
--- NOTE | 2023-08-14 08:04 | CT_ITS ---
STUDY: CT BRAIN WITHOUT CONTRAST REASON FOR EXAM: Female, 68 years old. FELL IN MAY, DE JESUS, DIZZY, MEMORY LOSS RADIATION DOSAGE (If Supplied By Facility): CTDIvol = ( 44.99 ) mGy, DLP = ( 779.24 ) mGycm TECHNIQUE: Transaxial CT imaging of the brain was performed without administration of intravenous contrast material. Individualized dose optimization techniques were used for this CT. COMPARISON: Head CT dated October 05, 2014 FINDINGS: Normal soft tissue structures. Normal calvarium. No visualized skull fracture or subdural hemorrhage or extra-axial fluid collection. No midline shift is seen. There is moderate cerebral atrophy with widening of the extra-axial spaces and ventricular dilatation. There are areas of decreased attenuation within the white matter tracts of the supratentorial brain, consistent with microvascular disease changes. Normal basal ganglia and thalami. Normal brainstem. Normal cerebellum. There is no intracranial hemorrhage. There are no findings of an acute ischemic infarction. Normal visualized paranasal sinuses. CT/Brain/Head without Contrast IMPRESSION: Chronic involutional changes of the brain. Electronically Signed: Ezio Guerrero MD at 15:41 EST ,
== END | disposition home or self-care (01) ==
PROVIDERS: PCP Family Medicine; Referring Provider Family Medicine; Visit Provider Family Medicine
DX: R42 Dizziness and giddiness (principal); R51.9 Headache, unspecified; S06.0XAA Concussion with loss of consciousness status unknown, initial encounter; W19.XXXA Unspecified fall, initial encounter; Z79.01 Long term (current) use of anticoagulants
CPT/HCPCS: 70450

== ENCOUNTER → 2023-10-05 | Outpatient (CLI) | payer MEDICARE, SELFPAY ==
[2022-04-30 10:36] VITALS: BMI 31.4
[2023-10-05 15:14] LABS: ALB/GLOB Ratio 1.2 RATIO (0.9-2.4); AST(SGOT) 19 U/L (15-37); Alanine Aminotransfer ALT/SGPT 19 U/L (13-56); Alkaline Phosphatase 53 U/L (45-117); Anion Gap 10 (5-15); BUN 19 mg/dL (7-18); Calcium,Total 9.3 mg/dL (8.5-10.1); Chloride 107 mmol/L (98-107); Creatinine, Serum 1.12 mg/dL (0.55-1.02); EST Glomerular Filtration Rate 51 mL/min (>60); Est Glom Filt Rate - Afr Amer 62 mL/min (>60); Free T3 2.1 pg/mL (2.18-3.98); Globulin 3.2 g/dL (2.2-4.2); Glucose 99 mg/dL (74-106); Potassium 4.3 mmol/L (3.5-5.1); Protein, Total 7.2 g/dL (6.4-8.2); Sodium Level 137 mmol/L (136-145); T4 Free Direct 0.93 ng/dL (0.76-1.46); Thyroid Stim Hormone (TSH) 3.19 uIU/mL (0.358-3.74)
== END | disposition home or self-care (01) ==
LOC: LAB 12:08
PROVIDERS: PCP Family Medicine; Referring Provider Family Medicine; Visit Provider Family Medicine
DX: E03.9 Hypothyroidism, unspecified (principal); R74.8 Abnormal levels of other serum enzymes
CPT/HCPCS: 36415; 80053; 84439; 84443; 84481

== ENCOUNTER → 2023-10-07 | Outpatient (CLI) | payer MEDICARE, SELFPAY ==
[2022-04-30 10:36] VITALS: BMI 31.4
--- NOTE | 2023-10-07 13:30 | RAD_ITS ---
STUDY: X-RAY - RIGHT FOOT CLINICAL: Female, 68 years old. RIGHT FOOT PAIN TECHNIQUE: 3 views of the right foot. COMPARISON: None. FINDINGS: Intact talus, calcaneus, and tarsal bones. There are plantar and posterior calcaneal spurs. Normal visualized subtalar, talonavicular, calcaneocuboid, tarsal and tarsometatarsal articulations. There are postoperative changes from prior bunionectomy in the distal first metatarsal. Intact metatarsi. Normal metatarsophalangeal joint of the great toe. Normal tibial and fibular sesamoid bones. Normal interphalangeal joint of the great toe. Normal phalanges of the great toe. Normal second through fifth metatarsophalangeal joints. Normal interphalangeal joints and phalanges of the lesser toes. There is mild subcutaneous soft tissue edema along the dorsum of the forefoot. There is no demonstrated fracture. RAD/Foot min 3 Views IMPRESSION: Plantar and posterior calcaneal spurs. Mild subcutaneous soft tissue edema along the dorsum of the forefoot. Electronically Signed: Rufus Hernandes MD at 10:45 EDT ,
== END | disposition home or self-care (01) ==
LOC: RAD 13:22
PROVIDERS: PCP Family Medicine; Referring Provider Family Medicine; Visit Provider Family Medicine
DX: M79.671 Pain in right foot (principal)
CPT/HCPCS: 73630

== ENCOUNTER → 2023-12-31 | Outpatient (CLI) | payer MEDICARE, SELFPAY ==
[2022-04-30 10:36] VITALS: BMI 31.4
== END | disposition home or self-care (01) ==
PROVIDERS: PCP Family Medicine; Visit Provider Physician Assistant Surgical
DX: R30.0 Dysuria (principal)
CPT/HCPCS: 87086

== ENCOUNTER → 2024-01-25 | Outpatient (CLI) | payer MEDICARE, SELFPAY ==
[2022-04-30 10:36] VITALS: BMI 31.4
--- NOTE | 2024-01-25 16:15 | STRESSREP ---
Stress Test Report Pharmacologic myocardial perfusion stress test. 68-year-old lady with a history of chest pain Resting EKG demonstrates sinus rhythm with a rate of 62 bpm. Resting blood pressure is 132/62 mmHg. 0.4 mg of regadenoson was infused per usual protocol followed by rapid intravenous saline flush injection. Continuous EKG monitoring was performed. The maximum heart rate was 84 bpm which was 55% of max impacted heart rate the maximum workload was 1 metabolic equivalent. At rest there were no ST or T wave changes noted to suggest ischemia and at peak infusion nonspecific ST changes were noted which did not meet the criteria for ischemia. No clinical angina is noted. The final blood pressure was 130/72 mmHg. Myocardial perfusion protocol. 11.7 mCi of technetium 99m sestamibi was injected at rest. 0.4 mg of regadenoson was infused per usual protocol. At peak infusion 34.5 mCi of technetium 99m sestamibi was injected stress images were obtained stress and rest images were reconstructed and compared in the short axis vertical long and horizontal long axis. Gated images were also obtained. Perfusion SPECT analysis: Review of the stress images demonstrate normal uptake of tracer noted in all areas of the myocardium. The resting images similar demonstrated normal uptake of tracer noted in all areas of the myocardium. No areas of reversibility are noted to suggest ischemia and no previous infarct is noted. Gated SPECT analysis: The gated ejection fraction is 65%. Conclusion: Normal pharmacologic myocardial perfusion stress test. Preserved ejection fraction.
== END | disposition home or self-care (01) ==
LOC: CVS 06:19
PROVIDERS: PCP Family Medicine; Referring Provider Internal Medicine Cardiovascular Disease; Visit Provider Internal Medicine Cardiovascular Disease
DX: R06.09 Other forms of dyspnea (principal); Z95.1 Presence of aortocoronary bypass graft
CPT/HCPCS: 78452; 93017; A9500; J2785

== ENCOUNTER → 2024-02-04 | Outpatient (CLI) | payer MEDICARE, MEDICAID, SELFPAY ==
[2022-04-30 10:36] VITALS: BMI 31.4
--- NOTE | 2024-02-04 09:22 | BI_ITS ---
MAMMOGRAPHY - BILATERAL SCREENING 3-D TOMOSYNTHESIS REASON FOR EXAM: Female, 68 years old. SCREENING PERTINENT HISTORY: No significant family history. TECHNIQUE: 2-D mammograms and 3-D Tomosynthesis of the breast (s) were performed. CAD was performed. COMPARISON: 12/31/2022 FINDINGS: The breast composition is composed of scattered fibroglandular density. Scattered benign calcifications are seen. No dense spiculated masses or suspicious microcalcifications are identified. No architectural distortion is identified. There is no skin thickening or retraction. There has been no significant change since the prior study. BI/SCRN MAMM (CAD)W/CONNOR BILAT IMPRESSION: No mammographic signs of malignancy. Routine yearly mammograms recommended. ASSESSMENT CATEGORY: BIRADS Category 1: Negative. A letter regarding these results will be sent to the patient by the facility within 30 days. FOLLOW UP RECOMMENDATION: Yearly follow up mammogram recommended. (A) Approximately 10% of breast cancers are not detected by mammography. A normal mammogram should not delay biopsy of a clinically suspicious abnormality. Electronically Signed: Bhupinder Bradley MD at 13:36 EDT ,
== END | disposition home or self-care (01) ==
LOC: OPBI 09:21
PROVIDERS: PCP Family Medicine; Referring Provider Family Medicine; Visit Provider Family Medicine
DX: Z12.31 Encounter for screening mammogram for malignant neoplasm of breast (principal)
CPT/HCPCS: 77063; 77067

== ENCOUNTER → 2024-04-14 | Outpatient (CLI) | payer MEDICARE, MEDICAID, SELFPAY ==
[2022-04-30 10:36] VITALS: BMI 31.4
--- NOTE | 2024-04-14 12:42 | CDU_ITS ---
Reason For Study: Bilateral Carotid Bruit Rt. Velocities/BP Lt. Velocities/BP Prox CCA 67.6/11.0 cm/sec. Prox CCA 94.1/18.2 cm/sec. Mid CCA 55.2/11.8 cm/sec. Mid CCA 88.6/17.1 cm/sec. Dist CCA 53.1/13.2 cm/sec. Dist CCA 76.1/20.4 cm/sec. Prox ICA 50.9/15.0 cm/sec. Prox ICA 62.0/18.5 cm/sec. Mid ICA 100.3/29.0 cm/sec. Mid ICA 68.6/22.3 cm/sec. Dist ICA 60.5/14.5 cm/sec. Dist ICA 74.4/22.5 cm/sec. Rt. ICA/CCA = 1.8. Lt. ICA/CCA = 0.8. Prox ECA 124.7/12.0 cm/sec. Prox ECA 208.9/27.5 cm/sec. Rt. Vert. 59.8/15.4 cm/sec. Lt. Vert. 47.9/19.3 cm/sec. Right Extracranial There is heterogeneous, irregular atherosclerotic plaque noted in the right common carotid artery. There is heterogeneous, irregular atherosclerotic plaque noted in the right internal carotid artery. There is heterogeneous, irregular atherosclerotic plaque noted in the right external carotid artery. Antegrade flow is noted in the right vertebral artery. Left Extracranial There is heterogeneous, irregular atherosclerotic plaque noted in the left common carotid artery. There is heterogeneous, irregular atherosclerotic plaque noted in the left internal carotid artery. There is heterogeneous, irregular atherosclerotic plaque noted in the left external carotid artery. Antegrade flow is noted in the left vertebral artery. VL/Carotid Duplex Ultrasound Interpretation Summary Mild (<50%) stenosis right extracranial internal carotid. Mild (<50%) stenosis left extracranial internal carotid. Patent and antegrade vertebrals bilaterally. Ordering Physician: Ana Bailey Referring Physician: Teresa Boggs Performed By: Arjun Cooper RVT
[2024-04-14 13:45] LABS: ALB/GLOB Ratio 1.2 RATIO (0.9-2.4); AST(SGOT) 23 U/L (15-37); Alanine Aminotransfer ALT/SGPT 19 U/L (13-56); Albumin, Serum 4.2 g/dL (3.2-5.0); Alkaline Phosphatase 66 U/L (45-117); Anion Gap 7 (5-15); BUN 21 mg/dL (7-18); BUN/Creat Ratio 17.2 RATIO (10-20); Calcium,Total 9.6 mg/dL (8.5-10.1); Chloride 107 mmol/L (98-107); Cholesterol 188 mg/dL (200); Creatinine, Serum 1.22 mg/dL (0.55-1.02); EST Glomerular Filtration Rate 46 mL/min (>60); Est Glom Filt Rate - Afr Amer 56 mL/min (>60); Free T3 2.1 pg/mL (2.18-3.98); Globulin 3.6 g/dL (2.2-4.2); Glucose 104 mg/dL (74-106); High Density Lipoprotein 63 mg/dL; Protein, Total 7.8 g/dL (6.4-8.2); Sodium Level 138 mmol/L (136-145); T4 Free Direct 0.92 ng/dL (0.76-1.46); Triglycerides 152 mg/dL; Very Low Density Lipoprotein 30 mg/dL (5-40)
== END | disposition home or self-care (01) ==
PROVIDERS: PCP Family Medicine; Referring Provider Physician Assistant Medical; Visit Provider Physician Assistant Medical
DX: R09.89 Other specified symptoms and signs involving the circulatory and respiratory systems (principal); E78.5 Hyperlipidemia, unspecified; E03.9 Hypothyroidism, unspecified; R74.8 Abnormal levels of other serum enzymes
CPT/HCPCS: 36415; 80053; 80061; 84439; 84443; 84481; 93880

== ENCOUNTER → 2024-04-18 | Outpatient (CLI) | payer MEDICARE, MEDICAID, SELFPAY ==
[2022-04-30 10:36] VITALS: BMI 31.4
--- NOTE | 2024-04-18 09:48 | RAD_ITS ---
STUDY: X-RAY CHEST REASON FOR EXAM: Female, 68 years old. for heart cath: chest pressure TECHNIQUE: Frontal and lateral views of the chest. COMPARISON: 02/24/2022. FINDINGS: The lungs are clear and expanded. There is no demonstrated pleural abnormality. Sternal cerclage wires are present from a prior sternotomy. Normal mediastinum and marisabel. Normal visualized pulmonary arteries. Normal visualized aortic arch and descending thoracic aorta. Normal visualized thoracic spine. Normal visualized ribs, clavicles, and shoulders. There is no demonstrated abnormality of the visualized soft tissue structures of the upper abdomen. RAD/Chest PA and Lateral IMPRESSION: No definite acute or significant abnormality seen. Electronically Signed: Arun Ramachandran MD at 16:51 EDT ,
[2024-04-18 10:04] LABS: Partial Thromboplast Time 26.7 Seconds (24.1-36.2)
[2024-04-18 10:06] LABS: Absolute Lymphocyte Count 1.77 X10^3/uL (0.83-4.51); Absolute Neutrophil Count 4.2 X10^3/uL (2.0-7.7); Basophil# 0.05 X10^3/uL; Basophil% 0.7 % (0-1); Eosinophil# 0.23 X10^3/uL; Eosinophils% 3.4 % (0-5); Hematocrit 44.6 % (37-47); Hemoglobin 14.8 g/dL (12.0-15.0); Lymphocyte # 1.77 X10^3/ul (0.83-4.51); Lymphocyte % 26.2 % (19-41); Mean Corp Hgb Conc 33.2 g/dL (32-36); Mean Corpuscular Hgb 31.1 pg (27.0-32.0); Mean Corpuscular Volume 93.7 fL (81-99); Mean Platelet Vol. 9.4 fl (6.2-12.0); Monocyte% 7.4 % (0-10); NRBC Flagged by Analyzer 0 % (0-5); Neutrophil # 4.18 X10^3/uL (2.7-7.7); Platelet Count 288 K/mm3 (150-450); RBC Distribution Width CV 12.3 % (11.6-14.6); RBC Distribution Width SD 42.8 fl (35.1-43.9); Red Blood Count 4.76 M/mm3 (4.2-5.4); White Blood Count 6.8 K/mm3 (4.4-11.0)
[2024-04-18 10:38] LABS: ALB/GLOB Ratio 1.2 RATIO (0.9-2.4); AST(SGOT) 24 U/L (15-37); Alanine Aminotransfer ALT/SGPT 21 U/L (13-56); Albumin, Serum 4.2 g/dL (3.2-5.0); Alkaline Phosphatase 64 U/L (45-117); Anion Gap 6 (5-15); BUN 21 mg/dL (7-18); BUN/Creat Ratio 16.4 RATIO (10-20); Calcium,Total 9.7 mg/dL (8.5-10.1); Chloride 106 mmol/L (98-107); Cholesterol 194 mg/dL (200); Creatinine, Serum 1.28 mg/dL (0.55-1.02); EST Glomerular Filtration Rate 44 mL/min (>60); Est Glom Filt Rate - Afr Amer 53 mL/min (>60); Globulin 3.4 g/dL (2.2-4.2); Glucose 111 mg/dL (74-106); High Density Lipoprotein 69 mg/dL; Potassium 4.2 mmol/L (3.5-5.1); Protein, Total 7.6 g/dL (6.4-8.2); Sodium Level 137 mmol/L (136-145); Triglycerides 121 mg/dL; Very Low Density Lipoprotein 24 mg/dL (5-40)
== END | disposition home or self-care (01) ==
LOC: LAB 09:31
PROVIDERS: PCP Family Medicine; Referring Provider Physician Assistant Medical; Visit Provider Physician Assistant Medical
DX: I25.119 Atherosclerotic heart disease of native coronary artery with unspecified angina pectoris (principal); E78.5 Hyperlipidemia, unspecified; R07.89 Other chest pain
CPT/HCPCS: 36415; 71046; 80053; 80061; 85025; 85730

== ENCOUNTER 2024-05-01 14:08 | Observation (INO) | payer MEDICARE, MEDICAID, SELFPAY ==
[2022-04-30 10:36] VITALS: BMI 31.4
[2024-04-20 10:51] VITALS: BMI 32.3
--- NOTE | 2024-04-27 17:36 | PCM.HP.BLA ---
History and Physical Date of Admission: 05/01/24 NISSA TROTTER, is a 68 F who presents today for a diagnostic heart catheterization. she is a lady with a history of coronary artery disease status post cardiac catheterization in 2015 demonstrating a normal left main coronary artery, left anterior descending artery which was previously bypassed, circumflex artery with an 80% stenotic lesion and a 95% bifurcating RCA lesion. The circumflex artery had a saphenous vein graft which was patent and the left internal mammary artery was atretic. 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 She was seen in 2019 and despite a normal stress test she had complained of chest discomfort and therefore underwent a cardiac catheterization which demonstrated a high-grade stenosis of the saphenous vein graft to the second obtuse marginal branch. She underwent 2 drug-eluting stents to the above. Stress test in 2023 was negative for ischemia. Pt has been having some swelling in her face and sometimes in her arms. She does sometimes have swelling in her legs. She is having chest discomfort and increased shortness of breath with exertion. She does feel that this is worsened since her stress test. She has needed to use nitroglycerin. [facility] Medical History (Updated 03/28/24 @ 10:35 by Ana ALVARADO, PA) Bilateral carotid bruits Easy bruising 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 Wears partial dentures Wears glasses Post-menopausal Cancer Depression Anxiety History of steroid therapy Thyroid disease Arthritis Back pain History of IBS CPAP (continuous positive airway pressure) dependence History of echocardiogram History of stress test Hypertension Cardiology follow-up encounter History of heart attack History of atrial fibrillation Former smoker Personal history of skin cancer Neoplasm of skin of ear ELODIA (obstructive sleep apnea) High triglycerides Anxiety and depression Allergies Alcohol abuse Actinic keratoses IBS (irritable bowel syndrome) Myocardial infarct Bipolar 1 disorder TIA (transient ischemic attack) Blurred vision, bilateral Slurred speech Chronic diastolic (congestive) heart failure Subluxation of left thumb Essential (primary) hypertension Non-rheumatic tricuspid valve insufficiency Atherosclerosis of coronary artery of [place] heart with angina pectoris CVA (cerebral vascular accident) Basal cell carcinoma of neck Hypothyroidism GERD (gastroesophageal reflux disease) Osteoarthritis Fibromyalgia Seizure disorder Post traumatic stress disorder (PTSD) Hyperlipidemia Surgical History History of excision of lesion Hx of surgical procedure History of coronary artery stent placement Hx of foot surgery Hx of foot surgery History of esophagogastroduodenoscopy (EGD) History of basal cell carcinoma excision History of left heart catheterization (03/25/20) H/O coronary artery bypass surgery (10/21/07) Family History Father CAD (coronary artery disease) Hypertension Mother CAD (coronary artery disease) Hypertension Colon cancer Sister Hypertension Other Alcoholism Anxiety Arthritis Depression Heart disease Social History Smoking Status: Former smoker alcohol intake: former details: Participates in AA substance use type: does not use what type of physical activity do you participate in: walking seatbelt use: always do you feel safe at home: Yes additional social history: disability- retired Does Take Aspirin As Needed Does Not Take Ibuprofen Const Const: Positive for fatigue; Negative for weakness, fever(s) or headache(s) Eyes Eyes: Negative for blind spots, loss of peripheral vision or transient loss of vision ENT ENT: Negative for headache(s), dizziness, tinnitus, Nosebleed/epistaxis or balance problems Cardio Chest Pain: No Palpitations: No Edema: None Muscle aches with walking: None Resp Respiratory: Negative for SOB with activity, SOB at rest, SOB orthopnea\SOB lying down or Cough GI GI: Negative nausea, vomiting, heartburn or vomiting blood/hematemesis : Negative for hematuria Musc Musc: Negative for muscle aches/ myalgia, muscle weakness, joint pain or balance problems Neuro Neuro: Negative for dizziness, lightheadedness, near syncope, syncope, orthostatic symptoms, headache(s) or weakness Hang Hematologic/Lymphatic: Negative for easy bleeding Endo Endo: Positive for fatigue Cardiology Exam Const Appearance: cooperative and no acute distress Nutritional Appearance: overweight Orientation: alert and oriented x3 Head Head: normal to inspection Ears: hearing grossly normal bilaterally Nose: external nose normal Face and Sinus: face symmetric Eyes General: appearance normal, both eyes and all related structures Eyelids: eyelids normal Conjunctivae: conjunctivae normal Pupils: PERRL and pupil size EOM: EOM intact bilaterally Neck Neck: normal visual inspection Carotids: bruit Bilateral Chest Chest inspection: normal inspection of the chest and normal respiratory effort Auscultation: Bilateral: Clear to Auscultation Cardio Palpation: normal PMI Rate: regular rate Rhythm: regular rhythm Heart sounds: S1 normal and S2 normal; Negative rub, gallop or murmur GI GI: normal to inspection and soft Neuro General: patient alert, patient oriented x3 and CN's II-XI intact bilaterally Skin Skin: no rashes or lesions noted Extremities Pulses: Normal: Right Posterior Tibial Pulse, Left Posterior Tibial Pulse, Right Radial Pulse and Left Radial Pulse Lower Extremity Edema: None: Bilateral Psych Psychological: normal affect Supplemental Info Supplemental Information Echocardiogram 01/15/2023: Interpretation Summary Normal LV size. Left ventricular systolic function is normal. The estimated ejection fraction is 60 %. Bubble contrast study negative for right to left interatrial shunt. Mild-Moderate (1-2+) eccentric mitral valve insufficiency. Mild to moderate (1-2+) tricuspid valve insufficiency. Stage 1 diastolic dysfunction. Carotid duplex 01/15/2023: Interpretation Summary Minimal calcific plaque at the proximal right internal carotid artery with less than 50% stenosis Greater than 50% stenosis right external carotid artery Slightly diminished velocity although antegrade flow right vertebral Irregular plaque at the proximal left internal carotid artery with less than 50% stenosis Greater than 50% stenosis left external carotid artery Patent and antegrade left vertebral Increased stenosis bilateral external carotid arteries since the previous examination of December 05, 2019 Pharmacologic myocardial perfusion stress test 12/2023 68-year-old lady with a history of chest pain Resting EKG demonstrates sinus rhythm with a rate of 62 bpm. Resting blood pressure is 132/62 mmHg. 0.4 mg of regadenoson was infused per usual protocol followed by rapid intravenous saline flush injection. Continuous EKG monitoring was performed. The maximum heart rate was 84 bpm which was 55% of max impacted heart rate the maximum workload was 1 metabolic equivalent. At rest there were no ST or T wave changes noted to suggest ischemia and at peak infusion nonspecific ST changes were noted which did not meet the criteria for ischemia. No clinical angina is noted. The final blood pressure was 130/72 mmHg. Myocardial perfusion protocol. 11.7 mCi of technetium 99m sestamibi was injected at rest. 0.4 mg of regadenoson was infused per usual protocol. At peak infusion 34.5 mCi of technetium 99m sestamibi was injected stress images were obtained stress and rest images were reconstructed and compared in the short axis vertical long and horizontal long axis. Gated images were also obtained. Perfusion SPECT analysis: Review of the stress images demonstrate normal uptake of tracer noted in all areas of the myocardium. The resting images similar demonstrated normal uptake of tracer noted in all areas of the myocardium. No areas of reversibility are noted to suggest ischemia and no previous infarct is noted. Gated SPECT analysis: The gated ejection fraction is 65%. Conclusion: Normal pharmacologic myocardial perfusion stress test. Preserved ejection fraction. Cardiac catheterization 03/25/2020: PROCEDURE(S) PERFORMED [id number]/COR/LV/CABG CLINICAL PROFILE AND INDICATIONS Indications: Worsening Angina Heart Failure: None Stress/Imaging Stress/Image Study Performed: No CAD Presentations: Unstable angina. CONCLUSIONS Coronary artery disease with previously bypassed LAD patent with mild luminal irregularities, first diagonal branch with moderate stenosis, mid left circumflex artery with total occlusion, right coronary artery previously stented in the proximal and distal segments which is patent with ostial PDA lesion not significantly different from 2018; atretic VARGAS not reevaluated. The saphenous vein graft to the obtuse marginal branch has a high-grade distal 90% stenosis noted prior to the anastomosis. RECOMMENDATIONS Referred for immediate PCI CORONARY ANGIOGRAPHY DOMINANCE: Right Dominant LEFT HEART ASSESSMENT Left Ventricular Ejection Fraction: by LV Gram 60 % Normal LV wall motion Normal Left Ventricular systolic function LEFT MAIN: Mild calcification LEFT ANTERIOR DESCENDING ARTERY: Mild luminal irregularities less than 30% DIAGONAL 1: Proximal - 60 % Stenosis DIAGONAL 2: Proximal - Mild luminal irregularities less than 30% CIRCUMFLEX ARTERY: MID CIRC: is occluded RIGHT CORONARY ARTERY: PROX RCA: Previously placed stent has an instent 30 % restenosis DISTAL RCA: Previously placed stent is patent RT PDA: Ostial - 60 unchanged % Stenosis GRAFTS: VARGAS graft to the Mid LAD atretic Saphenous Vein graft to the 2nd OM has a distal lesion of 90 % Cardiac cath intervention: Successful PCI with JATIN and PTCA to the SVG to OM2 Stress test 11/03/2019: Pharmacologic myocardial perfusion stress test. 64-year-old lady with a history of known coronary artery disease who presents with chest pain. Stress protocol: Resting EKG demonstrates normal sinus rhythm with a rate of 64 bpm normal intervals are noted resting blood pressure is 138/62 mmHg. 0.4 mg of regadenoson was infused per usual protocol followed by up intravenous saline flush injection continuous EKG monitoring was performed. The maximum heart rate attained was 96 bpm which was 61% of maximal predicted heart rate the maximum workload was 1 metabolic equivalent. At rest nonspecific ST-T wave changes were noted with no meet the criteria for ischemia. At peak infusion nonspecific ST-T wave changes were noted. Myocardial perfusion protocol. 11.0 mCi of technetium 99m sestamibi was injected at rest. 0.4 mg of regadenoson was infused per usual protocol peak infusion 33.0 mCi of technetium 99m sestamibi was injected stress images were obtained stress and rest images were reconstructed and compared in the short axis vertical long horizontal long axis. Gated images were also obtained. Perfusion SPECT analysis: Review of the stress images demonstrate normal uptake of tracer noted in all areas of the myocardium. The resting images similarly demonstrate normal uptake of tracer noted in all areas of the myocardium. No reversibility is noted to suggest ischemia no previous infarct is noted. Gated SPECT analysis: The gated ejection fraction is noted to be 60%. Conclusion: Normal pharmacologic myocardial perfusion stress test. Preserved ejection fraction Assessment & Plan Assessment/Plan (1) History of coronary artery stent placement: (2) H/O coronary artery bypass surgery: (3) Atherosclerosis of coronary artery of [place] heart with angina pectoris: PLAN: Plan With patient's history of rein-stent stenosis, known significant coronary artery disease and symptoms would like to pursue a diagnostic heart catheterization. Patient is agreeable with this. Follow-up will be based upon findings today.
--- NOTE | 2024-05-01 11:44 | CL.D_ITS ---
Patient Name: NISSA TROTTER Study Date: 05/01/2024 Performing: Dustin Lemus MD Ht: 61 inches 154.94 cm : 1955 Wt: 170.99 lbs 77.56 kg Age: 68 Gender: female BSA: 1.77 PROCEDURE(S) PERFORMED DC03-([id number])LHC/COR/LV/CABG [id number]-([id number])AO ROOT ANGIO WITH HEART CATH CLINICAL PROFILE AND INDICATIONS Indications: Worsening Angina Heart Failure: None Stress/Imaging Date: 01/25/24Stress Test with SPECT MPI: NegativeStress/Image Study Performed: No CAD Presentations: Unstable angina. CONCLUSIONS Coronary artery disease with ostial left main coronary artery stenosis and atretic VARGAS to the LAD mild disease noted in the right coronary artery and occluded saphenous vein graft to the obtuse marginal RECOMMENDATIONS Consider PCI and transfer for left main stenting DESCRIPTION OF PROCEDURE The patient arrived to the procedure lab. The risks and benefits of the procedure as well as a full description of our services here and current unavailability of surgical backup were fully explained to the patient and/or their significant other prior to the catheterization. The Timeout was completed, verifying the correct patient and procedure. The patient's procedural site was prepped and draped in the usual fashion. Local anesthetic was given subcutaneously to left radial region with Lidocaine 2%. Using a modified Seldinger technique, arterial access was obtained via the left femoral artery, a 6Fr sheath was inserted. Left internal mammary artery graft to the LAD selective angiography was performed in multiple views using a 5 Fr. IM catheter. Left Coronary Artery selective angiography was performed in multiple views using a 5 Fr. JL4 catheter. Right Coronary Artery selective angiography was then performed in multiple views using a 5 Fr. 3DRC (Dwaine) catheter. Ascending (root) aorta selective angiography was then performed in single view. Ascending (root) aorta selective angiography was then performed in single view.The arterial sheath was pulled and a TR Band was applied for hemostasis. 14cc air CORONARY ANGIOGRAPHY DOMINANCE: Right Dominant LEFT HEART ASSESSMENT Left Ventricular Ejection Fraction: by Echo 60 % Normal Left Ventricular systolic function LEFT MAIN: Ostial 90% stenosis LEFT ANTERIOR DESCENDING ARTERY: Mild calcification with mild to moderate disease noted in the midsegment but with no areas of high-grade stenosis present CIRCUMFLEX ARTERY: Nondominant vessel with total proximal occlusion RIGHT CORONARY ARTERY: Dominant vessel appears to be previously stented with mild proximal stenosis in-stent and mild diffuse distal disease less than 30% GRAFTS: VRAGAS graft to the Mid LAD Atretic Saphenous Vein graft to the 1st OM Was not found despite multiple catheter use as well as aortogram AORTIC ROOT: Angiographically normal COMPLICATIONS No Complications PROCEDURE MEDICATIONS Fentanyl 50 mcg IV Versed 1 mg IV Versed 1 mg IV Oxygen: 2 L/min via nasal cannula Heparin given IA 05/01/2024 10:43:04 Verapamil 2.5mg, Ntg 100mcgs, 3000 units of Heparin given IA 05/01/2024 10:43:04 SUMMARY OF HEMODYNAMIC DATA Time AIR REST ECG 09:20:03 AO 138/72 (98) SA 10:48:21 Signed By Dsutin Lemus MD On 05/01/2024 11:42:55 Dustin Lemus MD
[2024-05-01 14:40] VITALS: BP 135/80; PULSE 80; RESP 18; TEMP 36.9; O2SAT 96
[2024-05-01 14:48] VITALS: BMI 32.2
[2024-05-01 16:00] VITALS: BP 141/64
[2024-05-01 18:00] VITALS: BP 123/99
[2024-05-01 22:00] VITALS: BP 158/76; PULSE 73; RESP 16; TEMP 36.5; O2SAT 98
[2024-05-01] MEDS: Pravastatin 80 MG Tablet PO (22:11)
[2024-05-01] MEDS: Isosorbide Mononitrate 30 MG Tablet PO (22:11)
[2024-05-01] MEDS: busPIRone 15 MG TABLET PO (22:11)
[2024-05-01 23:50] VITALS: BP 158/76; PULSE 73; RESP 16; TEMP 36.5; O2SAT 98
== END 2024-05-01 23:52 | disposition short-term general hospital (02) ==
LOC: PCU 14:46
PROVIDERS: Admitting Provider Internal Medicine Cardiovascular Disease; PCP Family Medicine; Referring Provider Internal Medicine Cardiovascular Disease; Visit Provider Internal Medicine Cardiovascular Disease
DX: I25.110 Atherosclerotic heart disease of native coronary artery with unstable angina pectoris (principal); I11.0 Hypertensive heart disease with heart failure; I50.32 Chronic diastolic (congestive) heart failure; Z95.5 Presence of coronary angioplasty implant and graft; Q24.5 Malformation of coronary vessels; Z87.891 Personal history of nicotine dependence; Z95.1 Presence of aortocoronary bypass graft; M79.7 Fibromyalgia; K21.9 Gastro-esophageal reflux disease without esophagitis; E78.5 Hyperlipidemia, unspecified; G47.33 Obstructive sleep apnea (adult) (pediatric); I25.2 Old myocardial infarction
CPT/HCPCS: 93459; 93567; 99152; 99153; 99221; C1894; J7040; Q9967; C1769; G0378

== ENCOUNTER → 2024-05-22 | Outpatient (CLI) | payer MEDICARE, MEDICAID, SELFPAY ==
[2022-04-30 10:36] VITALS: BMI 31.4
--- NOTE | 2024-05-22 14:04 | PCM.CR.HP2 ---
CR - History & Physical General Arrival date:: 05/22/24 Arrival time:: 14:04 Date of Referral:: 05/10/24 Date of CR Evaluation:: 05/22/24 Referring Physician: Dr. Lemus Primary Diagnosis: PCI with stent History of Present Cardiac Event Onset Date PTCA or coronary stenting:: Yes (onset 05/02/24) Medications Ambulatory Orders ?Medication ?Instructions ?Recorded omega-3 fatty acids 500 mg capsule 1,500 mg PO DAILY SUPPLEMENT 10/20/15 aspirin 81 mg chewable tablet 81 mg PO DAILY@0800 ANTIPLATELET 09/24/16 cetirizine 10 mg capsule 10 mg PO DAILY 11/02/19 cyclobenzaprine 5 mg tablet 5 mg PO PRN PRN Muscle Pain 05/06/22 calcium carbonate-vitamin D3 500 1 cap PO DAILY 06/08/22 mg (1,250 mg)-50 unit capsule duloxetine 60 mg capsule,delayed 60 mg PO DAILY 07/10/22 release levothyroxine 50 mcg tablet 50 mcg PO MOTUWETHFRSA 07/10/22 nitroglycerin 0.4 mg sublingual See Rx Instructions .Route 03/30/23 tablet .COMPLEX #25 tabs buspirone 5 mg tablet 15 mg PO TID MENTAL HEALTH 05/26/23 amlodipine 10 mg tablet 10 mg PO DAILY #90 tabs 03/28/24 metoprolol tartrate 25 mg tablet 25 mg PO BID #180 tabs 03/28/24 spironolactone 25 mg tablet 25 mg PO DAILY #90 tabs 03/28/24 (Aldactone) estradiol 0.01% (0.1 mg/gram) See Rx Instructions .Route 04/06/24 vaginal cream .COMPLEX #42.5 grams ticagrelor 90 mg tablet (Brilinta) 90 mg PO BID #180 tabs 05/15/24 pantoprazole 20 mg tablet,delayed 20 mg PO QDAY #90 tabs 05/18/24 release rosuvastatin 40 mg tablet (Crestor) 40 mg PO QDAY #90 tabs 05/18/24 Allergies Allergies adhesive tape Allergy (Verified 05/10/24 15:40) Rash doxazosin Allergy (Verified 05/10/24 15:40) DROPS HEART RATE furosemide (From Lasix) Allergy (Verified 05/10/24 15:40) Itching latex Allergy (Verified 05/10/24 15:40) Rash lisinopril Allergy (Verified 05/10/24 15:40) Angioedema codeine Adverse Reaction (Verified 05/10/24 15:40) Itching oxycodone HCl (From Percocet) Adverse Reaction (Verified 05/10/24 15:40) Itching tramadol HCl (From Ultram) Adverse Reaction (Verified 05/10/24 15:40) Itching Sleep Disorder Evaluation Hx of Sleep Apnea: Yes Do you snore loudly (louder than talking or can be heard through closed doors)?: No Do you often feel tired/ fatigued/ sleepy during daytime?: No Has anyone observed you stop breathing during sleep?: No History of Hypertension (for STOP score): Yes STOP Results: Negative Advanced Directives Advanced Directives Power of 911 Telecommunicator: No Living Will: No Advance Directives Information Provided: No Advance Directives on File: No DNR Order?:: No Past Medical History Covid-19 Screening Physicial Symptoms Other Clinical Concerns Exposure Risk Pertinent Comorbidities 65 years or older:: Yes Has a serious heart condition:: Yes Past Medical Illness Medical History Bilateral carotid bruits Easy bruising 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 Wears partial dentures Wears glasses Post-menopausal Cancer Depression Anxiety History of steroid therapy Thyroid disease Arthritis Back pain History of IBS CPAP (continuous positive airway pressure) dependence History of echocardiogram History of stress test Hypertension Cardiology follow-up encounter History of heart attack History of atrial fibrillation Former smoker Personal history of skin cancer Neoplasm of skin of ear ELODIA (obstructive sleep apnea) High triglycerides Anxiety and depression Allergies Alcohol abuse Actinic keratoses IBS (irritable bowel syndrome) Myocardial infarct Bipolar 1 disorder TIA (transient ischemic attack) Blurred vision, bilateral Slurred speech Chronic diastolic (congestive) heart failure Subluxation of left thumb Essential (primary) hypertension Non-rheumatic tricuspid valve insufficiency Atherosclerosis of coronary artery of [place] heart with angina pectoris CVA (cerebral vascular accident) Basal cell carcinoma of neck Hypothyroidism GERD (gastroesophageal reflux disease) Osteoarthritis Fibromyalgia Seizure disorder Post traumatic stress disorder (PTSD) Hyperlipidemia Past Surgical History Surgical History History of excision of lesion Hx of surgical procedure History of coronary artery stent placement Hx of foot surgery Hx of foot surgery History of esophagogastroduodenoscopy (EGD) History of basal cell carcinoma excision History of left heart catheterization (03/25/20) H/O coronary artery bypass surgery (10/21/07) Surgical History: coronary bypass surgery and - Family History Summary Family History Father CAD (coronary artery disease) Hypertension Mother CAD (coronary artery disease) Hypertension Colon cancer Sister Hypertension Other Alcoholism Anxiety Arthritis Depression Heart disease Social History Smoking History Smoking Status: Former smoker Years Smokin Packs Smoked per Day: 2.5 (JUN 13 1998 pt stopped) Alcohol Use Alcohol Usage: No Substance Abuse Hx Substance Use: No Occupation Occupation (List type of work in comments):: Retired Hobbies, Recreation, Social Activities Hobbies: Other (rhonda ) Recreational Activities: I am able to engage in all my recreational activities Social Environment Status Marital Status: Single Current Living Arrangements Living Environment:: Alone Children How many children do you have?: 1 Do any of your children live nearby?: Yes Safety Do you feel safe in your surroundings?: Yes Assistance Do you need any assistance at home?: no Review of Systems Review of Systems Hints Review of Present Symptoms: Reports Shortness of Breath with Exertion, Fatigue, Appetite - Normal and Appetite - Special Diet; Denies Shortness of Breath at Rest, PVD, Operative Discomfort, Angina, Wound Healing, Dizziness/Lightheadedness, Heart Arrhythmia/Irregularities, Sleep - Normal or Sexual Changes Pain Is Patient Pain Free?: No Pain Location: other (everywhere ) Pain Level: 7/10 Risk Factor Assessment Chief Complaint Chief Complaint: PCI with stent Vital Signs Pulse Ox: 99 Blood Pressure: 127/83 Pulse Pulse Rate: 80 Hypertension Blood Pressure Sitting - Right Arm: 127/83 Obesity Height: 5 ft 1 in Weight:: 169 lb Weight in Pounds: 169.0 lbs Body Mass Index (BMI): 31.9 Physical Inactivity Physical Inactivity: Reg Exercise 30 min/day Risk Stratification Risk Guidelines: Lowest Risk: Risk Factor for Smoking, Moderate Risk: Risk Factor for Diabetes, Risk Factor for Obesity and Risk Factor for Sedentary Lifestyle and Highest Risk: Risk Factor for Dyslipidemia, Risk Factor for Hypertension and Risk Factor for Depression For Smoking Smoking Risk Guidelines For Dyslipidemia Dyslipidemia Risk Guidelines For Diabetes Mellitus Diabetes Risk Guidelines For Obesity/Overweight Obesity/Overweight Risk Guidelines For Hypertension Hypertension Risk Guidelines For Sedentary Lifestyle Sedentary Lifestyle Risk Guidelines For Depression Depression Risk Guidelines Family History Family History Father CAD (coronary artery disease) Hypertension Mother CAD (coronary artery disease) Hypertension Colon cancer Sister Hypertension Other Alcoholism Anxiety Arthritis Depression Heart disease Motivation Motivation to Participate On a scale of 1 to 10, how prepared are you to commit to attending program?: 10 What do you see as barriers to successfully being able to complete the program?: no What do you see as the benefits of succesfully completing the program? In other words, what do you hope to get out of participating in the program?: living longer Are there issues you are dealing with that will interfere with completing the program?: no Do you have a spouse or signficant other, family or friends who will help support you to complete the program?: yes
[2024-05-22 14:17] VITALS: BP 127/83; PULSE 80; O2SAT 99
--- NOTE | 2024-05-22 14:52 | PCM.CR.ITP ---
Diagnosis General Information Admitting Diagnosis: PCI with stent Personal Learning Style:: Audio/Visual Barriers to Learning: No Barriers Stage of change r/t lifestyle modifications:: Contemplation Gave educational material for:: Treating Heart Disease, How The Heart Works, What it means to have Heart Disease, How Coronary Artery Disease is Diagnosed, Heart Procedures, What Heart Medications Do, Risk Factors & Modifications, Living an Active Life, Nutrition, Emotions & Heart Disease, Stress Management & Relaxation and Sleep Disorders & Heart Disease Education/Goals Cardiac Rehabilitation Goals Personal Goals: Initial Assessment: Improve management of stress and emotions, Improve energy level, Improve knowledge of cardiac disease, Improve muscle strength and endurance and Control risk factors (learn risk factor modification) Scale for measuring improvement of personal goals Diagnosis & Disease Process Outcomes/Goals: Pt IDs own risk factors & lifestyle modifications by Session 10, Verbalizes symptoms of angina & response by session 3., Pt independently manages and Other Additional Outcomes/Goals: Exercise - Initial Assessment Visit Date of Eval: 05/22/24 (initial eval ) Mets: Pre-: >3 METS for 30 minutes by discharge, >5 METS for 30 minutes by discharge, >7 METS for 30 minutes by discharge and Unable to meet goal due to: (see comment below) Physician Prescribed Exercise Modalities: Treadmill, Rower, Schwinn Airdyne AD-7, SciFit Stepper, Nethra ImagingFit Pro-II Ergometer and Nethra ImagingFit Lateral [place] Frequency: 3x/week for 12 weeks [36 sessions] Intensity: 60-80% of age predicted maximum heart rate reserve Duration: 30 - 45 minutes Current METSs:: 3 Target Heart Rate:: 91-113 Outcomes & Goals Goals:: Verbalizes understanding of THR, RPE & goal METS by session 6, Documents in home exercise log/reports 30 min aerobic 5 day/wk by DC, Demonstrates accurate pulse taking by DC and Other additional outcome/goals: see below Intervention & Plan Exercise Program Goals: Instruct on personal THR & RPE, Instruct on MET level & personal MET goal, Show patient to take own pulse /validate performance until accurate, Instruct on home exercise and Other additional plan/int Physical Activity Home Exercise Physical Activity - Home Exercise: Safe Exercise, Warm-up, Self-monitoring, Cool-Down, Home Exercise > 30 min Daily and Sitting Time <3 hours/daily Outcomes & Goals Outcomes/Goals: Demonstrates correct Warm-up/exercise Cool-Down (S3) if = 2.5 METs, Verbalizes symptoms of exercise intolerance by Session 3 (S3), Demonstrate safe equipment use (S3) & follows exercise prescrition (6) and Other: See below Intervention & Plan Plan/Intervention: Instruct warm-up & cool-down if exercising at > 2 METs, Instruct on symptoms of exercise intolerance & actions to take, Instruct & monitor on saf, Assess intial functional capacity & safety risk and Other See below Nutrition - Initial Assessment Program Goals Nutrition Program Goals Patient has diagnosis of Hyperlipidemia (ICD E78)?: Yes Visit Date of Eval: 05/22/24 (initial eval) Cholesterol/Lipids (Other Core Measures) Determine presence & major risk factors that modify LDL goal: Cigarette smoking, Hypertension or hypertensive medication, Low HDL cholesterol <40 mg/dL*, Family history of premature CHD in Male < 55 years: female <65 yearsFa and Age men > 45 years; women >/= 55 years Outcomes/Goals: Pt IDs own risk factors & lifestyle modifications by Session 10, Verbalizes symptoms of angina & response by session 3., Pt independently manages and Other Additional Outcomes/Goals: Intervention/Plan: Advocate for lipid panel cholesterol medication if applicable, Instruct on personal lipid levels & lipid goals/NCEP guidelines, Instruct on cholesterol and Other additional plan/int Referral to dietitian:: No Diabetes (Other Core Measures) Diabetes Type: Not Applicable Weight Mgt (Other Care) Height: 5 ft 1 in Weight:: 169 lb BMI: 31.9 Diagnosis Overweight/Obesity BMI> 30% ICD-10 E66: Yes Diagnosis High BMI/Morbid Obesity BMI> 35% ICD-10 Z68: No Outcomes/Goals: Pt sets, maintains & shows weight loss goal & trend during rehab and Other additional outcomes/goals Intervention/Plan: Instruct on ideal BMI & set weight loss goal w/patient, Assist pt to ID & incorporate diet changes for weight loss by S9, Refer to Structured Weight Loss program as appropriate, Encourage goal of using 250-300dcal per session for weight loss and Other additional plan/interventions Healthy Eating Habits Will attend diet classes:: Yes Outcomes/Goals:: Consume diet rich in vegs,fruits,whole grain/high fiber,fish,lean meat, Limit sat/trans fats,cholesterol & added salts & sugars and Other additional outcome/goals: Intervention/Plan:: Assess current eating habits and Other Additional plan/interventions Education Gave educational materials for:: Signs & symptoms of hypoglycemia, Signs & symptoms of hyperglycemia, Relate diabetes to coronary artery disease and Healthy eating Core - Initial Assessment Visit Date of Eval: 05/22/24 (initial eval ) Medication Compliance Preventative Medication(s):: Aspirin, Ticagrelor/P2Y12 inhibitor, Statin/lipid and Beta kelin H/O mental health issues: depression, anxiety, or addiction?: Yes Doesn?t believe in the benefits of treatment?: No Believes medications are unnecessary or harmful?: No Has a concern about medication side effects?: No Expresses concern over the cost of medications?: No Outcomes/Goals: Verbalizes medications,desired effect & common side effects @ DC, Pt self-reports following medication regimen, Keeps card in wallet w/medications listed by DC and Other additional outcome/goals: Interventions/plans: Instruct on medication effects & side effects, Review medication list w/patient every two weeks, Instruct importance of taking meds as ordered & assist problem solving and Other additional Tobacco Use Tobacco Use: Non-smoker How long ago did you quit using tobacco products?: Greater than or equal to 6 months ago Years Smokin Hypertension Hypertension Diagnosis:: Hypertension ICD-10 I10 Resting Blood Pressure:: 127/83 [place] [employer] Hypertension Guidelines Outcomes/Goals: Able to verbalize/achieve optimal blood pressure <130/80, Incorporates diet changes & exercise for blood pressure control by DC and Other additional outcomes/goals Interventions/plan: Instruct on optimal blood pressure, hypertension & medications, Instruct on effects of sodium, alcohol, stress, exercise &hypertension and Other additional plan/interventions Tobacco Cessation Referral Smoking Cessation Referral:: No Individual Education/Counseling:: No Education Schedule Given:: Yes Psychosocial - Initial Assess VIsit Date of Eval: 05/22/24 (initial eval ) History of previous Mental disease:: Yes History of Emotional Disorders: Anxious and Depression Self-reported stressors Other/Comments:: Pt is in counseling and doing great Target Goals Target Goals Psychosocial Test Tool Used:: Ferrans Power QOL Cardiac and PHQ-9 Questionnaire phq-9 Severity Referral to Behavioral Health PS - Interventions: Yes: Attend Stress Management Classes Outcomes/Goals: See list Psychosocial Outcomes/Goals:: ID's personal stressors & 2 strategies to manage stress by discharge and Other Additional outcome/goals: Intervention/Plan: See List Interventions/Plan:: Assess stressors,coping strategies & signs of derpression on admission, Instruct/assist pt to develop coping & personal stress Mgt strategies, Refer to Behavioral Health if appropriate, Refer to Physician if appropriate, Instruct patient to recognize signs & symptoms of depression, Instruct patient to recog and Other additional plan/intervention Patient Health Questionnaire PHQ-9 Screening Initial Assessment: 1. Little interest or pleasure in doing things: Not at all 2. Feeling down, depressed, or hopeless: Not at all 3. Trouble falling or staying asleep, or sleeping too much: Nearly every day 4. Feeling tired or having little energy: Nearly every day 5. Poor appetite or overeating: Not at all 6. Feeling bad about yourself -- or that you are a failure or have let yourself or your family down: Not at all 7. Trouble concentrating on things, such as reading the newspaper or watching television: Not at all 8. Moving or speaking so slowly that other people could have noticed. Or the opposite - being so fidgety or restless that you have been moving around a lot more than usual: Not at all 9. Thoughts that you would be better off , or of hurting yourself in some way: Not at all How difficult have these problems made it for you to do your work, take care of things at home, or get along with other people?: Very difficult Total Score: 6 TONG-Q SV Test Statements CAD is a disease of the arteries in the heart: False Examples of risk factors for heart disease: True Angina is chest pain or discomfort: True The benefits of resistance training include: True Eating more meat and dairy products: False Anti-platelet medications such as aspirin are important: True The only effective way to manage stress: False An exercise warm-up slowly increases heart rate: True Prepared, processed foods usually have high sodium: True Depression is common after a heart attack: True The statin medications lower cholesterol: True To control blood pressure, lower the amount of sodium: True If someone gets chest discomfort during walking: False Transfats are partially hydrogenated vegetable oils: True Sleep apnea that is not treated increases the risk: False To control cholesterol, one should become a vegetarian: True Someone knows if he/she is exercising at the right level: True Diabetes cannot be prevented with exercise & health eating: False Stress is a large risk for heart attack: True A diet that can help lower blood pressure is rich in: True Total Score Total Correct Responses: 19 Self-Efficacy 6-Item Scale Initial Assessment: We would like to know how confident you are in doing certain activities. Please select your confidence level for: Fatigue Select Number: 10 Physical Discomfort or Pain Select Number: 10 Emotional Distress Select Number: 10 Other Symptoms or Health Problems Select Number: 10 Different Tasks and Activities Select Number: 10 Medication Select Number: 10 Total Score:: 10 Nutrition Survey Nutrition Survey Instructions Scoring Instructions Nutrition Survey Initial: Have you lost >10 lbs over the past 2 months without trying?: No Are you following a special diet at home for diabetes, low fat, or low salt?: No Are you interested in meeting with a dietitian for help understanding your diet?: No Do you eat less than 3 meals a day?: Yes Do you eat fatty meats (ortega, sausage, ribs, etc), fried foods, desserts, large amounts of salad dressings, margarine, butter, or cheese most days?: No Do you have food allergies? [Enter types in comment field]: Yes Do you eat in restaurants more than 3 times a week?: No Do you season food with salt, seasoning salt, or garlic salt?: No Do you used canned, boxed, frozen meals, or soups, seasoning packets?: Yes Total Score:: 3 Exercise - 30-day Assessment Physician Prescribed Exercise Modalities: Treadmill, Rower, Schwinn Airdyne AD-7, SciFit Stepper, SciFit Pro-II Ergometer and SciFit Lateral [employer] Specialist Exercise - 60-day Assessment Physician Prescribed Exercise Modalities: Treadmill, Rower, Schwinn Airdyne AD-7, SciFit Stepper, SciFit Pro-II Ergometer and SciFit Lateral [employer] Casework Specialist Exercise - 90-day Assessment Physician Prescribed Exercise Modalities: Treadmill, Rower, Schwinn Airdyne AD-7, SciFit Stepper, SciFit Pro-II Ergometer and SciFit Lateral [place] Exercise - Final/Discharge Physician Prescribed Exercise Modalities: Treadmill, Rower, Schwinn Airdyne AD-7, SciFit Stepper, SciFit Pro-II Ergometer and SciFit Lateral [place] Frequency: 3x/week for 12 weeks [36 sessions] Intensity: 60-80% of age predicted maximum heart rate reserve Current METSs:: 3 Target Heart Rate:: 91-113 Nutrition - 30-Day Assessment Weight Mgt (Other Care) Height: 5 ft 1 in Weight:: 169 lb BMI: 31.9 Nutrition - 60-Day Assessment Weight Mgt (Other Care) Height: 5 ft 1 in Weight:: 169 lb BMI: 31.9 Core - 30-Day Assessment Tobacco Use Years Smokin Core - Final Assessment Hypertension Resting Blood Pressure:: 127/83 [place] [employer] Hypertension Guidelines Core - 60-Day Assessment Hypertension Resting Blood Pressure:: 127/83 [place] [employer] Hypertension Guidelines Psychosocial - 30-Day Assess Target Goals Target Goals Referral to Behavioral Health PS - Interventions: Yes: Attend Stress Management Classes Psychosocial - 60-Day Assess Target Goals Target Goals Referral to Behavioral Health PS - Interventions: Yes: Attend Stress Management Classes Psychosocial - 90-Day Assess Target Goals Target Goals Referral to Behavioral Health PS - Interventions: Yes: Attend Stress Management Classes Psychosocial - Final Assessmen Target Goals Target Goals Referral to Behavioral Health PS - Interventions: Yes: Attend Stress Management Classes Nutrition - 90-Day Assessment Weight Mgt (Other Care) Height: 5 ft 1 in Weight:: 169 lb BMI: 31.9 Nutrition - Final Assessment Program Goals Patient has diagnosis of Hyperlipidemia (ICD E78)?: Yes Weight Mgt (Other Care) Height: 5 ft 1 in Weight:: 169 lb BMI: 31.9
[2024-05-22 15:00] VITALS: BMI 31.9
[2024-05-22 15:08] VITALS: BP 127/83
[2024-05-22 15:09] VITALS: BMI 31.9
== END | disposition home or self-care (01) ==
LOC: CR 13:57
PROVIDERS: PCP Family Medicine; Referring Provider Internal Medicine Cardiovascular Disease; Visit Provider Internal Medicine Cardiovascular Disease
DX: I25.10 Atherosclerotic heart disease of native coronary artery without angina pectoris (principal); Z95.5 Presence of coronary angioplasty implant and graft; Z87.891 Personal history of nicotine dependence

== ENCOUNTER 2024-06-26 13:00 | Outpatient (RCR) | payer MEDICARE, MEDICAID, SELFPAY ==
[2024-05-22 15:00] VITALS: BMI 31.9
--- NOTE | 2024-06-19 06:59 | PCM.CR.ITP ---
Exercise - Initial Assessment Visit Session #:: 6 Physician Prescribed Exercise Modalities: Treadmill, SciFit Stepper and SciFit Lateral [place] Nutrition - Initial Assessment Weight Mgt (Other Care) Height: 5 ft 1 in Weight:: 163 lb BMI: 30.8 Psychosocial - Initial Assess Target Goals Target Goals Referral to Behavioral Health PS - Interventions: Yes: Attend Stress Management Classes Patient Health Questionnaire PHQ-9 Screening 30-Day Re-eval Assessment: 1. Little interest or pleasure in doing things: Not at all 2. Feeling down, depressed, or hopeless: Not at all 3. Trouble falling or staying asleep, or sleeping too much: Nearly every day 4. Feeling tired or having little energy: Nearly every day 5. Poor appetite or overeating: Not at all 6. Feeling bad about yourself -- or that you are a failure or have let yourself or your family down: Not at all 7. Trouble concentrating on things, such as reading the newspaper or watching television: Not at all 8. Moving or speaking so slowly that other people could have noticed. Or the opposite - being so fidgety or restless that you have been moving around a lot more than usual: Not at all 9. Thoughts that you would be better off , or of hurting yourself in some way: Not at all How difficult have these problems made it for you to do your work, take care of things at home, or get along with other people?: Very difficult Total Score: 6 Self-Efficacy 6-Item Scale 30-Day Re-eval Assessment: We would like to know how confident you are in doing certain activities. Please select your confidence level for: Fatigue Select Number: 10 Physical Discomfort or Pain Select Number: 10 Emotional Distress Select Number: 10 Other Symptoms or Health Problems Select Number: 10 Different Tasks and Activities Select Number: 10 Medication Select Number: 10 Total Score:: 10 Nutrition Survey Nutrition Survey Instructions Scoring Instructions Exercise - 30-day Assessment Visit Date of Eval: 06/19/24 Session #:: 6 Physician Prescribed Exercise Modalities: Treadmill, SciFit Stepper and SciFit Lateral [employer] Project [employer] Frequency: 3x/week for 12 weeks [36 sessions] Intensity: 60-80% of age predicted maximum heart rate reserve Duration: 30 - 45 minutes Current METSs:: 6 Target Heart Rate:: 91-113 Current RPE:: 10-12 Maximum Excercise HR:: 99 Resting Blood Pressure: 132/70 Maximum Exercise Blood Pressure: 134/78 EKG Type: NSR w/ inverted Twave, rare pac and pvc Outcomes & Goals Goals:: Verbalizes understanding of THR, RPE & goal METS by session 6, Documents in home exercise log/reports 30 min aerobic 5 day/wk by DC, Demonstrates accurate pulse taking by DC and Other additional outcome/goals: see below Intervention & Plan Exercise Program Goals: Instruct on personal THR & RPE, Instruct on MET level & personal MET goal, Show patient to take own pulse /validate performance until accurate, Instruct on home exercise and Other additional plan/int Physical Activity Home Exercise Physical Activity - Home Exercise: Safe Exercise, Warm-up, Self-monitoring, Cool-Down, Home Exercise > 30 min Daily and Sitting Time <3 hours/daily Outcomes & Goals Outcomes/Goals: Demonstrates correct Warm-up/exercise Cool-Down (S3) if = 2.5 METs, Verbalizes symptoms of exercise intolerance by Session 3 (S3), Demonstrate safe equipment use (S3) & follows exercise prescrition (6) and Other: See below Intervention & Plan Plan/Intervention: Instruct warm-up & cool-down if exercising at > 2 METs, Instruct on symptoms of exercise intolerance & actions to take, Instruct & monitor on saf, Assess intial functional capacity & safety risk and Other See below 30-day Reassessments 30 day Reassessments:: Progressing Reassessment Notes & Comments:: RPE explained to pt. Pt is able to return demonstration Exercise - 60-day Assessment Physician Prescribed Exercise Modalities: Treadmill, SciFit Stepper and SciFit Lateral [employer] Project Manager Exercise - 90-day Assessment Physician Prescribed Exercise Modalities: Treadmill, SciFit Stepper and SciFit Lateral [employer] Project Manager Exercise - Final/Discharge Physician Prescribed Exercise Modalities: Treadmill, SciFit Stepper and SciFit Lateral [employer] Nutrition - 30-Day Assessment Program Goals Nutrition Program Goals Patient has diagnosis of Hyperlipidemia (ICD E78)?: Yes Visit Date of Eval: 06/19/24 Session #:: 6 Cholesterol/Lipids (Other Core Measures) Determine presence & major risk factors that modify LDL goal: Hypertension or hypertensive medication, Low HDL cholesterol <40 mg/dL*, Family history of premature CHD in Male < 55 years: female <65 yearsFa and Age men > 45 years; women >/= 55 years Outcomes/Goals: Pt IDs own risk factors & lifestyle modifications by Session 10, Verbalizes symptoms of angina & response by session 3., Pt independently manages and Other Additional Outcomes/Goals: Intervention/Plan: Advocate for lipid panel cholesterol medication if applicable, Instruct on personal lipid levels & lipid goals/NCEP guidelines, Instruct on cholesterol and Other additional plan/int Referral to dietitian:: No (declines) Diabetes (Other Core Measures) Diabetes Type: Not Applicable Weight Mgt (Other Care) Height: 5 ft 1 in Weight:: 163 lb BMI: 30.8 Diagnosis Overweight/Obesity BMI> 30% ICD-10 E66: Yes Diagnosis High BMI/Morbid Obesity BMI> 35% ICD-10 Z68: No Outcomes/Goals: Pt sets, maintains & shows weight loss goal & trend during rehab and Other additional outcomes/goals Intervention/Plan: Instruct on ideal BMI & set weight loss goal w/patient, Assist pt to ID & incorporate diet changes for weight loss by S9, Refer to Structured Weight Loss program as appropriate, Encourage goal of using 250-300dcal per session for weight loss and Other additional plan/interventions Healthy Eating Habits Will attend diet classes:: Yes Outcomes/Goals:: Consume diet rich in vegs,fruits,whole grain/high fiber,fish,lean meat, Limit sat/trans fats,cholesterol & added salts & sugars and Other additional outcome/goals: Intervention/Plan:: Assess current eating habits and Other Additional plan/interventions 30-day Reassessments:: Progressing Reassessment Notes & Comments:: Pt is scheduled to attend nutrition class. Risk factors and how to minimized risk factors explained to pt. Pt demonstrates understanding Education Gave educational materials for:: Signs & symptoms of hypoglycemia, Signs & symptoms of hyperglycemia, Relate diabetes to coronary artery disease and Healthy eating Nutrition - 60-Day Assessment Weight Mgt (Other Care) Height: 5 ft 1 in Weight:: 163 lb BMI: 30.8 Core - 30-Day Assessment Visit Date of Eval: 06/19/24 Session #:: 6 Medication Compliance Preventative Medication(s):: Aspirin, Ticagrelor/P2Y12 inhibitor, Statin/lipid and Beta kelin H/O mental health issues: depression, anxiety, or addiction?: Yes Doesn?t believe in the benefits of treatment?: No Believes medications are unnecessary or harmful?: No Has a concern about medication side effects?: No Expresses concern over the cost of medications?: No Outcomes/Goals: Verbalizes medications,desired effect & common side effects @ DC, Pt self-reports following medication regimen, Keeps card in wallet w/medications listed by DC and Other additional outcome/goals: Interventions/plans: Instruct on medication effects & side effects, Review medication list w/patient every two weeks, Instruct importance of taking meds as ordered & assist problem solving and Other additional Tobacco Use Tobacco Use: Non-smoker Hypertension Hypertension Diagnosis:: Hypertension ICD-10 I10 Resting Blood Pressure:: 132/70 [place] [employer] Hypertension Guidelines Peak Exercise Blood Pressure:: 134/78 Outcomes/Goals: Able to verbalize/achieve optimal blood pressure <130/80, Incorporates diet changes & exercise for blood pressure control by DC and Other additional outcomes/goals Interventions/plan: Instruct on optimal blood pressure, hypertension & medications, Instruct on effects of sodium, alcohol, stress, exercise &hypertension and Other additional plan/interventions 30 day Reassessments:: Progressing Reassessment Notes & Comments:: Pt's BP's are slightly elevated on most days. Encouraged pt to lose weight and eat a low sodium diet. Will continue to monitor and send report to physician if necessary. Tobacco Cessation Referral Smoking Cessation Referral:: No Individual Education/Counseling:: No Education Schedule Given:: Yes Psychosocial - 30-Day Assess VIsit Date of Eval: 06/19/24 Session #:: 6 History of previous Mental disease:: Yes History of Emotional Disorders: Anxious and Depression (pt is in counseling and doing great) Target Goals Target Goals Psychosocial Test Tool Used:: Ferrans Power QOL Cardiac and PHQ-9 Questionnaire phq-9 Severity Referral to Behavioral Health PS - Interventions: Yes: Attend Stress Management Classes Outcomes/Goals: See list Psychosocial Outcomes/Goals:: ID's personal stressors & 2 strategies to manage stress by discharge and Other Additional outcome/goals: Intervention/Plan: See List Interventions/Plan:: Assess stressors,coping strategies & signs of derpression on admission, Instruct/assist pt to develop coping & personal stress Mgt strategies, Refer to Behavioral Health if appropriate, Refer to Physician if appropriate, Instruct patient to recognize signs & symptoms of depression, Instruct patient to recog and Other additional plan/intervention 30-day Reassessments: 30 day Reassessments:: Progressing Reassessment Notes & Comments:: pt is in counseling and doing great Psychosocial - 60-Day Assess Target Goals Target Goals Referral to Behavioral Health PS - Interventions: Yes: Attend Stress Management Classes Outcomes/Goals: See list Psychosocial Outcomes/Goals:: ID's personal stressors & 2 strategies to manage stress by discharge and Other Additional outcome/goals: Psychosocial - 90-Day Assess Target Goals Target Goals Referral to Behavioral Health PS - Interventions: Yes: Attend Stress Management Classes Psychosocial - Final Assessmen Target Goals Target Goals Referral to Behavioral Health PS - Interventions: Yes: Attend Stress Management Classes Nutrition - 90-Day Assessment Weight Mgt (Other Care) Height: 5 ft 1 in Weight:: 163 lb BMI: 30.8 Nutrition - Final Assessment Weight Mgt (Other Care) Height: 5 ft 1 in Weight:: 163 lb BMI: 30.8
[2024-06-19 07:11] VITALS: BP 132/70; BMI 30.8
== END 2024-06-27 23:59 ==
LOC: CR 13:00
PROVIDERS: PCP Family Medicine; Referring Provider Internal Medicine Cardiovascular Disease; Visit Provider Internal Medicine Cardiovascular Disease
DX: I25.119 Atherosclerotic heart disease of native coronary artery with unspecified angina pectoris (principal); I50.32 Chronic diastolic (congestive) heart failure; Z95.5 Presence of coronary angioplasty implant and graft
CPT/HCPCS: 93798

== ENCOUNTER 2024-07-26 13:00 | Outpatient (RCR) | payer MEDICARE, SELFPAY ==
[2024-06-19 07:11] VITALS: BMI 30.8
[2024-06-28 00:51] VITALS: BP 132/70
--- NOTE | 2024-07-20 10:59 | PCM.CR.ITP ---
Exercise - Initial Assessment Physician Prescribed Exercise Modalities: Treadmill, [employer]inn Airdyne AD-7 and SciFit Stepper Nutrition - Initial Assessment Weight Mgt (Other Care) Height: 5 ft 1 in Weight:: 158 lb BMI: 29.8 Psychosocial - Initial Assess Target Goals Target Goals Referral to Behavioral Health PS - Interventions: Yes: Attend Stress Management Classes Patient Health Questionnaire PHQ-9 Screening 60-Day Re-eval Assessment: 1. Little interest or pleasure in doing things: Not at all 2. Feeling down, depressed, or hopeless: Not at all 3. Trouble falling or staying asleep, or sleeping too much: Nearly every day 4. Feeling tired or having little energy: Nearly every day 5. Poor appetite or overeating: Not at all 6. Feeling bad about yourself -- or that you are a failure or have let yourself or your family down: Not at all 7. Trouble concentrating on things, such as reading the newspaper or watching television: Not at all 8. Moving or speaking so slowly that other people could have noticed. Or the opposite - being so fidgety or restless that you have been moving around a lot more than usual: Not at all 9. Thoughts that you would be better off , or of hurting yourself in some way: Not at all How difficult have these problems made it for you to do your work, take care of things at home, or get along with other people?: Very difficult Total Score: 6 Self-Efficacy 6-Item Scale 60-Day Re-eval Assessment: We would like to know how confident you are in doing certain activities. Please select your confidence level for: Fatigue Select Number: 10 Physical Discomfort or Pain Select Number: 10 Emotional Distress Select Number: 10 Other Symptoms or Health Problems Select Number: 10 Different Tasks and Activities Select Number: 10 Medication Select Number: 10 Total Score:: 10 Nutrition Survey Nutrition Survey Instructions Scoring Instructions Exercise - 30-day Assessment Physician Prescribed Exercise Modalities: Treadmill, [employer] AD-7 and SciFit Stepper Exercise - 60-day Assessment Visit Date of Eval: 07/20/24 Session #:: 11 Physician Prescribed Exercise Modalities: Treadmill, [employer] AD-7 and SciFit Stepper Frequency: 3x/week for 12 weeks [36 sessions] Intensity: 60-80% of age predicted maximum heart rate reserve Duration: 30 - 45 minutes Current METSs:: 4.2 Target Heart Rate:: 91-113 Current RPE:: 10-12 Maximum Excercise HR:: 102 Resting Blood Pressure: 112/60 Maximum Exercise Blood Pressure: 136/60 EKG Type: NSR-ST inverted T wave, rare PAC and PVC Outcomes & Goals Goals:: Verbalizes understanding of THR, RPE & goal METS by session 6, Documents in home exercise log/reports 30 min aerobic 5 day/wk by DC, Demonstrates accurate pulse taking by DC and Other additional outcome/goals: see below Intervention & Plan Exercise Program Goals: Instruct on personal THR & RPE, Instruct on MET level & personal MET goal, Show patient to take own pulse /validate performance until accurate, Instruct on home exercise and Other additional plan/int 30-day Reassessments 30 day Reassessments:: Progressing Physical Activity Home Exercise Physical Activity - Home Exercise: Safe Exercise, Warm-up, Self-monitoring, Cool-Down, Home Exercise > 30 min Daily and Sitting Time <3 hours/daily Outcomes & Goals Outcomes/Goals: Demonstrates correct Warm-up/exercise Cool-Down (S3) if = 2.5 METs, Verbalizes symptoms of exercise intolerance by Session 3 (S3), Demonstrate safe equipment use (S3) & follows exercise prescrition (6) and Other: See below Intervention & Plan Plan/Intervention: Instruct warm-up & cool-down if exercising at > 2 METs, Instruct on symptoms of exercise intolerance & actions to take, Instruct & monitor on saf, Assess intial functional capacity & safety risk and Other See below 30-day Reassessments 30 day Reassessments:: Progressing Reassessment Notes & Comments:: Warm up and cool down demonstrated and explained to pt. Pt is able to return demonstration Exercise - 90-day Assessment Physician Prescribed Exercise Modalities: Treadmill, [employer]irdyne AD-7 and SciFit Stepper Exercise - Final/Discharge Physician Prescribed Exercise Modalities: Treadmill, [employer] Airdyne AD-7 and SciFit Stepper Nutrition - 30-Day Assessment Weight Mgt (Other Care) Height: 5 ft 1 in Weight:: 158 lb BMI: 29.8 Nutrition - 60-Day Assessment Program Goals Nutrition Program Goals Patient has diagnosis of Hyperlipidemia (ICD E78)?: Yes Visit Date of Eval: 07/20/24 Session #:: 11 Cholesterol/Lipids (Other Core Measures) Determine presence & major risk factors that modify LDL goal: Hypertension or hypertensive medication, Low HDL cholesterol <40 mg/dL*, Family history of premature CHD in Male < 55 years: female <65 yearsFa and Age men > 45 years; women >/= 55 years Outcomes/Goals: Pt IDs own risk factors & lifestyle modifications by Session 10, Verbalizes symptoms of angina & response by session 3., Pt independently manages and Other Additional Outcomes/Goals: Intervention/Plan: Advocate for lipid panel cholesterol medication if applicable, Instruct on personal lipid levels & lipid goals/NCEP guidelines, Instruct on cholesterol and Other additional plan/int Referral to dietitian:: No (declines) Diabetes (Other Core Measures) Diabetes Type: Not Applicable Weight Mgt (Other Care) Height: 5 ft 1 in Weight:: 158 lb BMI: 29.8 Diagnosis Overweight/Obesity BMI> 30% ICD-10 E66: No Diagnosis High BMI/Morbid Obesity BMI> 35% ICD-10 Z68: No Outcomes/Goals: Pt sets, maintains & shows weight loss goal & trend during rehab and Other additional outcomes/goals Intervention/Plan: Instruct on ideal BMI & set weight loss goal w/patient, Assist pt to ID & incorporate diet changes for weight loss by S9, Refer to Structured Weight Loss program as appropriate, Encourage goal of using 250-300dcal per session for weight loss and Other additional plan/interventions Healthy Eating Habits Will attend diet classes:: Yes Outcomes/Goals:: Consume diet rich in vegs,fruits,whole grain/high fiber,fish,lean meat, Limit sat/trans fats,cholesterol & added salts & sugars and Other additional outcome/goals: Intervention/Plan:: Assess current eating habits and Other Additional plan/interventions 30-day Reassessments:: Progressing Reassessment Notes & Comments:: Pt has lost 5 lbs. Will continue to encourage and weigh on a weekly basis. Education Gave educational materials for:: Signs & symptoms of hypoglycemia, Signs & symptoms of hyperglycemia, Relate diabetes to coronary artery disease and Healthy eating Core - 60-Day Assessment Visit Date of Eval: 07/20/24 Session #:: 11 Medication Compliance Preventative Medication(s):: Aspirin, Ticagrelor/P2Y12 inhibitor, Statin/lipid and Beta kelin H/O mental health issues: depression, anxiety, or addiction?: Yes Doesn?t believe in the benefits of treatment?: No Believes medications are unnecessary or harmful?: No Has a concern about medication side effects?: No Expresses concern over the cost of medications?: No Outcomes/Goals: Verbalizes medications,desired effect & common side effects @ DC, Pt self-reports following medication regimen, Keeps card in wallet w/medications listed by DC and Other additional outcome/goals: Interventions/plans: Instruct on medication effects & side effects, Review medication list w/patient every two weeks, Instruct importance of taking meds as ordered & assist problem solving and Other additional Tobacco Use Tobacco Use: Non-smoker Hypertension Hypertension Diagnosis:: Hypertension ICD-10 I10 Resting Blood Pressure:: 112/60 [place] [employer] Hypertension Guidelines Peak Exercise Blood Pressure:: 136/60 Outcomes/Goals: Able to verbalize/achieve optimal blood pressure <130/80, Incorporates diet changes & exercise for blood pressure control by DC and Other additional outcomes/goals 30 day Reassessments:: Progressing Reassessment Notes & Comments:: Pt's bp's are slightly elevated at times. Will encourage continued weight loss and a low sodium diet. Will continue to monitor. Tobacco Cessation Referral Smoking Cessation Referral:: No Individual Education/Counseling:: No Education Schedule Given:: Yes Psychosocial - 30-Day Assess Target Goals Target Goals Referral to Behavioral Health PS - Interventions: Yes: Attend Stress Management Classes Outcomes/Goals: See list Psychosocial Outcomes/Goals:: ID's personal stressors & 2 strategies to manage stress by discharge and Other Additional outcome/goals: Psychosocial - 60-Day Assess VIsit Date of Eval: 07/20/24 Session #:: 11 History of previous Mental disease:: Yes History of Emotional Disorders: Depression (pt is in counseling and doing great) Target Goals Target Goals Psychosocial Test Tool Used:: Ferrans Power QOL Cardiac and PHQ-9 Questionnaire phq-9 Severity Referral to Behavioral Health PS - Interventions: Yes: Attend Stress Management Classes Outcomes/Goals: See list Psychosocial Outcomes/Goals:: ID's personal stressors & 2 strategies to manage stress by discharge and Other Additional outcome/goals: Intervention/Plan: See List Interventions/Plan:: Assess stressors,coping strategies & signs of derpression on admission, Instruct/assist pt to develop coping & personal stress Mgt strategies, Refer to Behavioral Health if appropriate, Refer to Physician if appropriate, Instruct patient to recognize signs & symptoms of depression, Instruct patient to recog and Other additional plan/intervention 30-day Reassessments: 30 day Reassessments:: Progressing Reassessment Notes & Comments:: pt is in counseling and doing great. Psychosocial - 90-Day Assess Target Goals Target Goals Referral to Behavioral Health PS - Interventions: Yes: Attend Stress Management Classes Psychosocial - Final Assessmen Target Goals Target Goals Referral to Behavioral Health PS - Interventions: Yes: Attend Stress Management Classes Nutrition - 90-Day Assessment Weight Mgt (Other Care) Height: 5 ft 1 in Weight:: 158 lb BMI: 29.8 Nutrition - Final Assessment Weight Mgt (Other Care) Height: 5 ft 1 in Weight:: 158 lb BMI: 29.8
[2024-07-20 11:18] VITALS: BP 112/60; BMI 29.8
--- NOTE | 2024-07-20 13:10 | SLEEP ---
FAX SENT TO DR. GOYAL, PT PCP, TO INFORM OF PATIENT NEW ROS AND STRUGGLE WEARING AUTOPAP. NISSA ASKED FOR INSIGHT/ASSISTANCE DURING CR VISIT AND SAYS SYMPTOMS OCCURRING FOR ABOUT A MONTH. DESPITE CONTROLLED LEAK AHI IS ELEVATED IN AIRVIEW. PT STATES OFFICE F/U W DR. GOYAL BEGINNING OF JULY.
== END 2024-07-28 23:59 ==
LOC: CR 13:00
PROVIDERS: PCP Family Medicine; Referring Provider Internal Medicine Cardiovascular Disease; Visit Provider Internal Medicine Cardiovascular Disease
DX: I25.119 Atherosclerotic heart disease of native coronary artery with unspecified angina pectoris (principal); I50.32 Chronic diastolic (congestive) heart failure; Z95.5 Presence of coronary angioplasty implant and graft

== ENCOUNTER → 2024-08-04 | Outpatient (CLI) | payer MEDICARE, SELFPAY ==
[2024-07-20 11:18] VITALS: BMI 29.8
[2024-08-04 13:45] LABS: Free T3 2.6 pg/mL (2.18-3.98); T4 Free Direct 1.13 ng/dL (0.76-1.46); Thyroid Stim Hormone (TSH) 0.398 uIU/mL (0.358-3.740)
== END | disposition home or self-care (01) ==
PROVIDERS: PCP Family Medicine; Referring Provider Family Medicine; Visit Provider Family Medicine
DX: E03.9 Hypothyroidism, unspecified (principal)
CPT/HCPCS: 36415; 84439; 84443; 84481

== ENCOUNTER → 2024-08-23 | Outpatient (CLI) | payer MEDICARE, MEDICAID, SELFPAY ==
[2024-07-20 11:18] VITALS: BMI 29.8
[2024-08-17 09:44] VITALS: BMI 29.0
== END | disposition home or self-care (01) ==
LOC: SL 20:04
PROVIDERS: PCP Family Medicine; Referring Provider Family Medicine; Visit Provider Family Medicine
DX: G47.33 Obstructive sleep apnea (adult) (pediatric) (principal)
CPT/HCPCS: 95811

== ENCOUNTER 2024-08-25 13:00 | Outpatient (RCR) | payer MEDICARE, SELFPAY ==
[2024-07-20 11:18] VITALS: BMI 29.8
[2024-07-29 02:26] VITALS: BP 112/60; BP 132/70
--- NOTE | 2024-08-17 09:28 | CR.ITP_ITS ---
Exercise - Initial Assessment Physician Prescribed Exercise Modalities: Treadmill, Schwinn Airdyne AD-7 and SciFit Stepper Nutrition - Initial Assessment Weight Mgt (Other Care) Height: 5 ft 1 in Weight:: 154 lb BMI: 29.0 Psychosocial - Initial Assess Target Goals Target Goals Referral to Behavioral Health PS - Interventions: Yes: Attend Stress Management Classes Patient Health Questionnaire PHQ-9 Screening 90-Day Re-eval Assessment: 1. Little interest or pleasure in doing things: Not at all 2. Feeling down, depressed, or hopeless: Not at all 3. Trouble falling or staying asleep, or sleeping too much: Nearly every day 4. Feeling tired or having little energy: Nearly every day 5. Poor appetite or overeating: Not at all 6. Feeling bad about yourself -- or that you are a failure or have let yourself or your family down: Not at all 7. Trouble concentrating on things, such as reading the newspaper or watching television: Not at all 8. Moving or speaking so slowly that other people could have noticed. Or the opposite - being so fidgety or restless that you have been moving around a lot more than usual: Not at all 9. Thoughts that you would be better off , or of hurting yourself in some way: Not at all How difficult have these problems made it for you to do your work, take care of things at home, or get along with other people?: Very difficult Total Score: 6 Self-Efficacy 6-Item Scale 90-Day Re-eval Assessment: We would like to know how confident you are in doing certain activities. Please select your confidence level for: Fatigue Select Number: 10 Physical Discomfort or Pain Select Number: 10 Emotional Distress Select Number: 10 Other Symptoms or Health Problems Select Number: 10 Different Tasks and Activities Select Number: 10 Medication Select Number: 10 Total Score:: 10 Nutrition Survey Nutrition Survey Instructions Scoring Instructions Exercise - 30-day Assessment Physician Prescribed Exercise Modalities: Treadmill, Schwinn Airdyne AD-7 and SciFit Stepper Exercise - 60-day Assessment Physician Prescribed Exercise Modalities: Treadmill, Schwinn Airdyne AD-7 and SciFit Stepper Exercise - 90-day Assessment Visit Date of Eval: 08/17/24 Session #:: 19 Physician Prescribed Exercise Modalities: Treadmill, Schwinn Airdyne AD-7 and SciFit Stepper Frequency: 3x/week for 12 weeks [36 sessions] Intensity: 60-80% of age predicted maximum heart rate reserve Duration: 30 - 45 minutes Current METSs:: 5.5 Target Heart Rate:: 91-121 Current RPE:: 11-12 Maximum Excercise HR:: 112 Resting Blood Pressure: 122/68 Maximum Exercise Blood Pressure: 142/66 EKG Type: NSR to ST with inverted Twave, rare PAC and PVC Outcomes & Goals Goals:: Verbalizes understanding of THR, RPE & goal METS by session 6, Documents in home exercise log/reports 30 min aerobic 5 day/wk by DC, Demonstrates accurate pulse taking by DC and Other additional outcome/goals: see below Intervention & Plan Exercise Program Goals: Instruct on personal THR & RPE, Instruct on MET level & personal MET goal, Show patient to take own pulse /validate performance until accurate, Instruct on home exercise and Other additional plan/int Physical Activity Home Exercise Physical Activity - Home Exercise: Safe Exercise, Warm-up, Self-monitoring, Cool-Down, Home Exercise > 30 min Daily and Sitting Time <3 hours/daily Outcomes & Goals Outcomes/Goals: Demonstrates correct Warm-up/exercise Cool-Down (S3) if = 2.5 METs, Verbalizes symptoms of exercise intolerance by Session 3 (S3), Demonstrate safe equipment use (S3) & follows exercise prescrition (6) and Other: See below Intervention & Plan Plan/Intervention: Instruct warm-up & cool-down if exercising at > 2 METs, Instruct on symptoms of exercise intolerance & actions to take, Instruct & monitor on saf, Assess intial functional capacity & safety risk and Other See below 30-day Reassessments 30 day Reassessments:: Progressing Reassessment Notes & Comments:: Pt is doing very well. Pt has been able to increase her workloads to 5.5 METS. Will continue to encourage. Exercise - Final/Discharge Physician Prescribed Exercise Modalities: Treadmill, Schwinn Airdyne AD-7 and SciFit Stepper Nutrition - 30-Day Assessment Weight Mgt (Other Care) Height: 5 ft 1 in Weight:: 154 lb BMI: 29.0 Nutrition - 60-Day Assessment Weight Mgt (Other Care) Height: 5 ft 1 in Weight:: 154 lb BMI: 29.0 Core - 30-Day Assessment Hypertension [place] [employer] Hypertension Guidelines Reassessment Notes & Comments:: Pt's BP's are slightly elevated. Pt continues to lose weight. Will try to let pt sit for several minutes before pressure is taken. Will continue to monitor. Core - Final Assessment Hypertension [place] [employer] Hypertension Guidelines Reassessment Notes & Comments:: Pt's BP's are slightly elevated. Pt continues to lose weight. Will try to let pt sit for several minutes before pressure is taken. Will continue to monitor. Core - 90 Day Assessment Visit Date of Eval: 08/17/24 Session #:: 19 Medication Compliance Preventative Medication(s):: Aspirin, Ticagrelor/P2Y12 inhibitor, Statin/lipid and Beta kelin H/O mental health issues: depression, anxiety, or addiction?: Yes Doesn?t believe in the benefits of treatment?: No Believes medications are unnecessary or harmful?: No Has a concern about medication side effects?: No Expresses concern over the cost of medications?: No Outcomes/Goals: Verbalizes medications,desired effect & common side effects @ DC, Pt self-reports following medication regimen, Keeps card in wallet w/medications listed by DC and Other additional outcome/goals: Interventions/plans: Instruct on medication effects & side effects, Review medication list w/patient every two weeks, Instruct importance of taking meds as ordered & assist problem solving and Other additional 30-day Reassessments:: Progressing Reassessment Notes & Comments:: Pt has started a prednisone pack due to bronchitis. Tobacco Use Tobacco Use: Non-smoker Hypertension Hypertension Diagnosis:: Hypertension ICD-10 I10 Resting Blood Pressure:: 122/68 [place] [employer] Hypertension Guidelines Peak Exercise Blood Pressure:: 142/66 Outcomes/Goals: Able to verbalize/achieve optimal blood pressure <130/80, Incorporates diet changes & exercise for blood pressure control by DC and Other additional outcomes/goals Interventions/plan: Instruct on optimal blood pressure, hypertension & medications, Instruct on effects of sodium, alcohol, stress, exercise &hypertension and Other additional plan/interventions 30 day Reassessments:: Progressing Reassessment Notes & Comments:: Pt's BP's are slightly elevated. Pt continues to lose weight. Will try to let pt sit for several minutes before pressure is taken. Will continue to monitor. Tobacco Cessation Referral Smoking Cessation Referral:: No Individual Education/Counseling:: No Education Schedule Given:: Yes Psychosocial - 30-Day Assess Target Goals Target Goals Referral to Behavioral Health PS - Interventions: Yes: Attend Stress Management Classes Psychosocial - 60-Day Assess Target Goals Target Goals Referral to Behavioral Health PS - Interventions: Yes: Attend Stress Management Classes Psychosocial - 90-Day Assess VIsit Date of Eval: 08/17/24 Session #:: 19 History of previous Mental disease:: Yes History of Emotional Disorders: Depression (Pt is in counseling and doing great) Target Goals Target Goals Referral to Behavioral Health PS - Interventions: Yes: Attend Stress Management Classes Outcomes/Goals: See list Psychosocial Outcomes/Goals:: ID's personal stressors & 2 strategies to manage stress by discharge and Other Additional outcome/goals: Intervention/Plan: See List Interventions/Plan:: Assess stressors,coping strategies & signs of derpression on admission, Instruct/assist pt to develop coping & personal stress Mgt strategies, Refer to Behavioral Health if appropriate, Refer to Physician if appropriate, Instruct patient to recognize signs & symptoms of depression, Instruct patient to recog and Other additional plan/intervention 30-day Reassessments: 30 day Reassessments:: Met Reassessment Notes & Comments:: Pt is in counseling and doing great. Psychosocial - Final Assessmen Target Goals Target Goals Referral to Behavioral Health PS - Interventions: Yes: Attend Stress Management Classes Nutrition - 90-Day Assessment Program Goals Nutrition Program Goals Patient has diagnosis of Hyperlipidemia (ICD E78)?: Yes Visit Date of Eval: 08/17/24 Session #:: 19 Cholesterol/Lipids (Other Core Measures) Determine presence & major risk factors that modify LDL goal: Hypertension or hypertensive medication, Low HDL cholesterol <40 mg/dL*, Family history of premature CHD in Male < 55 years: female <65 yearsFa and Age men > 45 years; women >/= 55 years Outcomes/Goals: Pt IDs own risk factors & lifestyle modifications by Session 10, Verbalizes symptoms of angina & response by session 3., Pt independently manages and Other Additional Outcomes/Goals: Intervention/Plan: Advocate for lipid panel cholesterol medication if applicable, Instruct on personal lipid levels & lipid goals/NCEP guidelines, Instruct on cholesterol and Other additional plan/int Referral to dietitian:: No (declines) Diabetes (Other Core Measures) Diabetes Type: Not Applicable Weight Mgt (Other Care) Height: 5 ft 1 in Weight:: 154 lb BMI: 29.0 Diagnosis Overweight/Obesity BMI> 30% ICD-10 E66: No Diagnosis High BMI/Morbid Obesity BMI> 35% ICD-10 Z68: No Outcomes/Goals: Pt sets, maintains & shows weight loss goal & trend during rehab and Other additional outcomes/goals Intervention/Plan: Instruct on ideal BMI & set weight loss goal w/patient, Assist pt to ID & incorporate diet changes for weight loss by S9, Refer to Structured Weight Loss program as appropriate, Encourage goal of using 250- 300dcal per session for weight loss and Other additional plan/interventions 30 day Reassessments:: Progressing Reassessment Notes & Comments:: Pt has lost 4 more lbs in the past month. Pt is attending nutrition class this week. Pt has started a prednisone pack due to bronchitis. Healthy Eating Habits Will attend diet classes:: Yes Outcomes/Goals:: Consume diet rich in vegs,fruits,whole grain/high fiber,fish,lean meat, Limit sat/trans fats,cholesterol & added salts & sugars and Other additional outcome/goals: Intervention/Plan:: Assess current eating habits and Other Additional plan/interventions 30-day Reassessments:: Progressing Reassessment Notes & Comments:: Pt has lost 4 more lbs in the past month. Pt is attending nutrition class this week. Pt has started a prednisone pack due to bronchitis. Education Gave educational materials for:: Signs & symptoms of hypoglycemia, Signs & symptoms of hyperglycemia, Relate diabetes to coronary artery disease and Healthy eating Nutrition - Final Assessment Weight Mgt (Other Care) Height: 5 ft 1 in Weight:: 154 lb BMI: 29.0
[2024-08-17 09:44] VITALS: BP 122/68; BMI 29.0
== END 2024-08-25 23:59 ==
LOC: CR 13:00
PROVIDERS: PCP Family Medicine; Referring Provider Internal Medicine Cardiovascular Disease; Visit Provider Internal Medicine Cardiovascular Disease
DX: I25.119 Atherosclerotic heart disease of native coronary artery with unspecified angina pectoris (principal); I50.32 Chronic diastolic (congestive) heart failure; Z95.5 Presence of coronary angioplasty implant and graft
CPT/HCPCS: 93798

== ENCOUNTER → 2024-09-08 | Outpatient (CLI) | payer MEDICARE, SELFPAY ==
[2024-08-17 09:44] VITALS: BMI 29.0
== END | disposition home or self-care (01) ==
LOC: SL 12:54
PROVIDERS: PCP Family Medicine; Visit Provider Family Medicine
DX: Z00.00 Encounter for general adult medical examination without abnormal findings (principal)

== ENCOUNTER 2024-09-25 13:00 | Outpatient (RCR) | payer MEDICARE, SELFPAY ==
[2024-08-17 09:44] VITALS: BMI 29.0
--- NOTE | 2024-09-14 09:38 | CR.ITP_ITS ---
Exercise - Initial Assessment Physician Prescribed Exercise Modalities: Treadmill, Schwinn Airdyne AD-7 and SciFit Stepper Nutrition - Initial Assessment Program Goals Nutrition Program Goals Patient has diagnosis of Hyperlipidemia (ICD E78)?: Yes Weight Mgt (Other Care) Height: 5 ft 1 in Weight:: 153 lb BMI: 28.9 Core - Initial Assessment Hypertension Resting Blood Pressure:: 136/70 Citizen Of [place] Heart [employer] Hypertension Guidelines Psychosocial - Initial Assess Target Goals Target Goals Referral to Behavioral Health PS - Interventions: Yes: Attend Stress Management Classes Patient Health Questionnaire PHQ-9 Screening Discharge Assessment: 1. Little interest or pleasure in doing things: Not at all 2. Feeling down, depressed, or hopeless: Not at all 3. Trouble falling or staying asleep, or sleeping too much: Nearly every day 4. Feeling tired or having little energy: Nearly every day 5. Poor appetite or overeating: Not at all 6. Feeling bad about yourself -- or that you are a failure or have let yo urself or your family down: Not at all 7. Trouble concentrating on things, such as reading the newspaper or watching television: Not at all 8. Moving or speaking so slowly that other people could have noticed. Or the opposite - being so fidgety or restless that you have been moving around a lot more than usual: Not at all 9. Thoughts that you would be better off , or of hurting yourself in some way: Not at all How difficult have these problems made it for you to do your work, take care of things at home, or get along with other people?: Very difficult Total Score: 6 Self-Efficacy 6-Item Scale Discharge Assessment: We would like to know how confident you are in doing certain activities. Please select your confidence level for: Fatigue Select Number: 10 Physical Discomfort or Pain Select Number: 10 Emotional Distress Select Number: 10 Other Symptoms or Health Problems Select Number: 10 Different Tasks and Activities Select Number: 10 Medication Select Number: 10 Total Score:: 10 Nutrition Survey Nutrition Survey Instructions Scoring Instructions Exercise - 30-day Assessment Physician Prescribed Exercise Modalities: Treadmill, Schwinn Airdyne AD-7 and SciFit Stepper Exercise - 60-day Assessment Physician Prescribed Exercise Modalities: Treadmill, Schwinn Airdyne AD-7 and SciFit Stepper Exercise - 90-day Assessment Physician Prescribed Exercise Modalities: Treadmill, Schwinn Airdyne AD-7 and SciFit Stepper Exercise - Final/Discharge Visit Date of Eval: 09/14/24 Session #:: 31 Physician Prescribed Exercise Modalities: Treadmill, Schwinn Airdyne AD-7 and SciFit Stepper Frequency: 3x/week for 12 weeks [36 sessions] Intensity: 60-80% of age predicted maximum heart rate reserve Duration: 30 - 45 minutes Current METSs:: 4.8 Target Heart Rate:: 91-121 Current RPE:: 11 Maximum Heart Rate:: 99 Resting Blood Pressure: 136/70 Maximum Exercise Blood Pressure: 140/76 EKG Type: NSR-ST with inverted T wave, rare pac and occas pvc Outcomes & Goals Goals:: Verbalizes understanding of THR, RPE & goal METS by session 6, Documents in home exercise log/reports 30 min aerobic 5 day/wk by DC, Demonstrates accurate pulse taking by DC and Other additional outcome/goals: see below Intervention & Plan Exercise Program Goals: Instruct on personal THR & RPE, Instruct on MET level & personal MET goal, Show patient to take own pulse /validate performance until accurate, Instruct on home exercise and Other additional plan/int Physical Activity Home Exercise Physical Activity - Home Exercise: Safe Exercise, Warm-up, Self-monitoring, Cool-Down, Home Exercise > 30 min Daily and Sitting Time <3 hours/daily Outcomes & Goals Outcomes/Goals: Demonstrates correct Warm-up/exercise Cool-Down (S3) if = 2.5 METs, Verbalizes symptoms of exercise intolerance by Session 3 (S3), Demonstrate safe equipment use (S3) & follows exercise prescrition (6) and Other: See below Intervention & Plan Plan/Intervention: Instruct warm-up & cool-down if exercising at > 2 METs, Instruct on symptoms of exercise intolerance & actions to take, Instruct & monitor on saf, Assess intial functional capacity & safety risk and Other See below 30-day Reassessments 30 day Reassessments:: Met Reassessment Notes & Comments:: Pt has done very well. Pt has 5 sessions remaining and will be ready to exercise on her own. Pt understands exercise safety. Pt understands exercise intensity, duration, and frequency. Nutrition - 30-Day Assessment Weight Mgt (Other Care) Height: 5 ft 1 in Weight:: 153 lb BMI: 28.9 Nutrition - 60-Day Assessment Weight Mgt (Other Care) Height: 5 ft 1 in Weight:: 153 lb BMI: 28.9 Core - Final Assessment Visit Date of Eval: 09/14/24 Session #:: 31 Medication Compliance Preventative Medication(s):: Aspirin, Ticagrelor/P2Y12 inhibitor, Statin/lipid and Beta kelin H/O mental health issues: depression, anxiety, or addiction?: Yes Doesn?t believe in the benefits of treatment?: No Believes medications are unnecessary or harmful?: No Has a concern about medication side effects?: No Expresses concern over the cost of medications?: No Outcomes/Goals: Verbalizes medications,desired effect & common side effects @ DC, Pt self-reports following medication regimen, Keeps card in wallet w/medications listed by DC and Other additional outcome/goals: Interventions/plans: Instruct on medication effects & side effects, Review medication list w/patient every two weeks, Instruct importance of taking meds as ordered & assist problem solving and Other additional Tobacco Use Tobacco Use: Non-smoker Hypertension Hypertension Diagnosis:: Hypertension ICD-10 I10 Resting Blood Pressure:: 136/70 Citizen Of [place] Heart [employer] Hypertension Guidelines Peak Exercise Blood Pressure:: 140/76 Outcomes/Goals: Able to verbalize/achieve optimal blood pressure <130/80, Incorporates diet changes & exercise for blood pressure control by DC and Other additional outcomes/goals Interventions/plan: Instruct on optimal blood pressure, hypertension & medications, Instruct on effects of sodium, alcohol, stress, exercise &hypertension and Other additional plan/interventions 30 day Reassessments:: Progressing (Pt's BP's are within normal limits on most days. Low sodium diet encouraged.) Tobacco Cessation Referral Smoking Cessation Referral:: No Individual Education/Counseling:: No Education Schedule Given:: Yes Core - 60-Day Assessment Hypertension Resting Blood Pressure:: 136/70 Citizen Of [place] Heart [employer] Hypertension Guidelines Psychosocial - 30-Day Assess Target Goals Target Goals Referral to Behavioral Health PS - Interventions: Yes: Attend Stress Management Classes Psychosocial - 60-Day Assess Target Goals Target Goals Referral to Behavioral Health PS - Interventions: Yes: Attend Stress Management Classes Psychosocial - 90-Day Assess Target Goals Target Goals Referral to Behavioral Health PS - Interventions: Yes: Attend Stress Management Classes Psychosocial - Final Assessmen VIsit Date of Eval: 09/14/24 Session #:: 31 History of Emotional Disorders: Anxious and Depression (Pt is in counseling and doing great) Target Goals Target Goals Psychosocial Test Tool Used:: [employer] QOL Cardiac and PHQ-9 Questionnaire phq-9 Severity Referral to Behavioral Health PS - Interventions: Yes: Attend Stress Management Classes Outcomes/Goals: See list Psychosocial Outcomes/Goals:: ID's personal stressors & 2 strategies to manage stress by discharge and Other Additional outcome/goals: Intervention/Plan: See List Interventions/Plan:: Assess stressors,coping strategies & signs of derpression on admission, Instruct/assist pt to develop coping & personal stress Mgt strategies, Refer to Behavioral Health if appropriate, Refer to Physician if appropriate, Instruct patient to recognize signs & symptoms of depression, Instruct patient to recog and Other additional plan/intervention 30-day Reassessments: 30 day Reassessments:: Met Reassessment Notes & Comments:: Pt is in counseling and doing great. Nutrition - 90-Day Assessment Weight Mgt (Other Care) Height: 5 ft 1 in Weight:: 153 lb BMI: 28.9 Nutrition - Final Assessment Program Goals Patient has diagnosis of Hyperlipidemia (ICD E78)?: Yes Visit Date of Assessment:: 09/14/24 Session #:: 31 Cholesterol/Lipids (Other Core Measures) Determine presence & major risk factors that modify LDL goal: Cigarette smoking, Hypertension or hypertensive medication, Low HDL cholesterol <40 mg/dL*, Family history of premature CHD in Male < 55 years: female <65 yearsFa and Age men > 45 years; women >/= 55 years Outcomes/Goals: Pt IDs own risk factors & lifestyle modifications by Session 10, Verbalizes symptoms of angina & response by session 3., Pt independently manages and Other Additional Outcomes/Goals: Intervention/Plan: Advocate for lipid panel cholesterol medication if applicable, Instruct on personal lipid levels & lipid goals/NCEP guidelines, Instruct on cholesterol and Other additional plan/int Diabetes (Other Core Measures) Diabetes Type: Not Applicable Weight Mgt (Other Care) Height: 5 ft 1 in Weight:: 153 lb BMI: 28.9 Diagnosis Overweight/Obesity BMI> 30% ICD-10 E66: No Diagnosis High BMI/Morbid Obesity BMI> 35% ICD-10 Z68: No Outcomes/Goals: Pt sets, maintains & shows weight loss goal & trend during rehab and Other additional outcomes/goals Intervention/Plan: Instruct on ideal BMI & set weight loss goal w/patient, Assist pt to ID & incorporate diet changes for weight loss by S9, Refer to Structured Weight Loss program as appropriate, Encourage goal of using 250- 300dcal per session for weight loss and Other additional plan/interventions 30 day Reassessments:: Met Healthy Eating Habits Will attend diet classes:: Yes Outcomes/Goals:: Consume diet rich in vegs,fruits,whole grain/high fiber,fish,lean meat, Limit sat/trans fats,cholesterol & added salts & sugars and Other additional outcome/goals: Intervention/Plan:: Assess current eating habits and Other Additional plan/interventions 30-day Reassessments:: Met Reassessment Notes & Comments:: Pt has attended nutrition class. Pt is down to 153 lbs. Pt is at a healthy weight and understands the benefits of a heart healthy low sodium diet. Education Gave educational materials for:: Signs & symptoms of hypoglycemia, Signs & symptoms of hyperglycemia, Relate diabetes to coronary artery disease and Healthy eating
[2024-09-14 09:52] VITALS: BP 136/70; BMI 28.9
== END 2024-09-25 23:59 ==
LOC: CR 13:00
PROVIDERS: PCP Family Medicine; Referring Provider Internal Medicine Cardiovascular Disease; Visit Provider Internal Medicine Cardiovascular Disease
DX: Z95.5 Presence of coronary angioplasty implant and graft (principal)
CPT/HCPCS: 93798

== ENCOUNTER → 2024-10-03 | Outpatient (CLI) | payer MEDICARE, MEDICAID, SELFPAY ==
[2024-09-14 09:52] VITALS: BMI 28.9
[2024-10-03 09:21] LABS: AST(SGOT) 36 U/L (<=31); Alanine Aminotransfer ALT/SGPT 24 U/L (<=34); Albumin, Serum 4.5 g/dL (3.4-4.8); Alkaline Phosphatase 82 U/L (35-104); Bilirubin, Direct 0.45 mg/dL (0.00-0.30); Cholesterol 122 mg/dL (<=200); Globulin 2.6 g/dL (2.2-4.2); High Density Lipoprotein 69 mg/dL; Low Density Lipoprotein Calc. 40 mg/dL; Total Bilirubin 0.93 mg/dL (0.00-1.30); Triglycerides 64 mg/dL; Very Low Density Lipoprotein 13 mg/dL (5-40); cholesterol:hdl ratio screen 1.76
== END | disposition home or self-care (01) ==
PROVIDERS: PCP Family Medicine; Referring Provider Physician Assistant Medical; Visit Provider Physician Assistant Medical
DX: E78.00 Pure hypercholesterolemia, unspecified (principal)
CPT/HCPCS: 36415; 80061; 80076

== ENCOUNTER 2024-10-17 08:00 | Outpatient (RCR) | payer SELFPAY ==
[2024-09-14 09:52] VITALS: BMI 28.9
== END 2024-10-25 23:59 ==
LOC: CR 08:00
PROVIDERS: PCP Family Medicine; Referring Provider Internal Medicine Cardiovascular Disease; Visit Provider Internal Medicine Cardiovascular Disease
DX: Z00.00 Encounter for general adult medical examination without abnormal findings (principal)

== ENCOUNTER 2024-10-26 06:56 | Outpatient (RCR) | payer SELFPAY ==
[2024-09-14 09:52] VITALS: BMI 28.9
== END 2024-11-25 23:59 ==
LOC: CR 06:56
PROVIDERS: PCP Family Medicine; Referring Provider Internal Medicine Cardiovascular Disease; Visit Provider Internal Medicine Cardiovascular Disease
DX: Z00.00 Encounter for general adult medical examination without abnormal findings (principal)

== ENCOUNTER → 2024-10-27 | Outpatient (CLI) | payer MEDICARE, MEDICAID, SELFPAY ==
[2024-09-14 09:52] VITALS: BMI 28.9
[2024-10-27 13:30] LABS: ALB/GLOB Ratio 1.7 RATIO (0.9-2.4); AST(SGOT) 35 U/L (<=31); Alanine Aminotransfer ALT/SGPT 25 U/L (<=34); Albumin, Serum 4.8 g/dL (3.4-4.8); Alkaline Phosphatase 81 U/L (35-104); Anion Gap 16 (5-15); BUN 25 mg/dL (4-19); BUN/Creat Ratio 18.6 RATIO (10-20); Carbon Dioxide 17.4 mmol/L (21.0-32.0); Chloride 103 mmol/L (98-108); Creatinine, Serum 1.33 mg/dL (0.70-1.20); EST Glomerular Filtration Rate 43 (>60); Free T3 2.8 pg/mL (2.18-3.98); Globulin 2.8 g/dL (2.2-4.2); Glucose 112 mg/dL (70-99); Protein, Total 7.6 g/dL (5.9-8.4); Sodium Level 136 mmol/L (133-145); Total Bilirubin 1.17 mg/dL (0.00-1.30)
== END | disposition home or self-care (01) ==
LOC: LAB 11:55
PROVIDERS: PCP Family Medicine; Referring Provider Family Medicine; Visit Provider Family Medicine
DX: Z51.81 Encounter for therapeutic drug level monitoring (principal); E03.9 Hypothyroidism, unspecified
CPT/HCPCS: 36415; 80053; 84439; 84443; 84481

== ENCOUNTER → 2024-10-31 | Outpatient (CLI) | payer MEDICARE, MEDICAID, SELFPAY ==
[2024-09-14 09:52] VITALS: BMI 28.9
[2024-10-31 08:45] VITALS: PULSE 62; PULSE 63; PULSE 64; PULSE 67; PULSE 75; PULSE 87; PULSE 88; PULSE 90; O2SAT 97; O2SAT 98; O2SAT 99
--- NOTE | 2024-11-03 12:08 | WT_ITS ---
PSN 6 Minute Walk Test 6 Minute Walk Test 6 Minute Walk Test: 6 Minute Walk Test PSN:6-Minute Walk Test Start: 10/31/24 08:45 Freq: Status: Active Protocol: [id number] Document 10/31/24 08:45 [facility] (Rec: 10/31/24 08:50 [facility] [id number]) 6 Minute Walk Test Date Performed 10/31/24 Time Performed 08:15 Height 5 ft 1.5 in Weight: 151 lb Weight in Pounds 151.[address]: Carly Colin Assistive device None used: Pre-test Oxygen Delivery Room Air Method Pulse Ox (%) 98 Pulse Rate (60-100 62 beats/min) Dyspnea Satya Scale ( 0 0-10) Exertion Satay Scale 6 (6-20) 1st minute Oxygen Delivery Room Air Method Pulse Ox (%) 98 Pulse Rate (60-100 63 beats/min) Dyspnea Satya Scale ( 0 0-10) Number of Rests 0 Taken 2nd minute Oxygen Delivery Room Air Method Pulse Ox (%) 97 Pulse Rate (60-100 67 beats/min) Dyspnea Satya Scale ( 1 0-10) Number of Rests 0 Taken 3rd minute Oxygen Delivery Room Air Method Pulse Ox (%) 98 Pulse Rate (60-100 75 beats/min) Dyspnea Satya Scale ( 2 0-10) Number of Rests 0 Taken 4th minute Oxygen Delivery Room Air Method Pulse Ox (%) 98 Pulse Rate (60-100 87 beats/min) Dyspnea Satya Scale ( 2 0-10) Number of Rests 0 Taken 5th minute Oxygen Delivery Room Air Method Pulse Ox (%) 99 Pulse Rate (60-100 88 beats/min) Dyspnea Satya Scale ( 3 0-10) Exertion Satya Scale 7 (6-20) Number of Rests 0 Taken Reported Symptoms Increased Work of Breathing 6th minute Oxygen Delivery Room Air Method Pulse Ox (%) 98 Pulse Rate (60-100 90 beats/min) Dyspnea Satya Scale ( 3 0-10) Number of Rests 0 Taken Reported Symptoms Increased Work of Breathing Post-test Oxygen Delivery Room Air Method Pulse Ox (%) 99 Pulse Rate (60-100 64 beats/min) Dyspnea Satya Scale ( 0 0-10) Exertion Satya Scale 6 (6-20) Full Laps Walked 23 Partial Lap, Number 8 of Tiles Walked Total Distance 1365 Walked (ft) Interpretation Interpretation: The patient ambulated 1365 feet over the course of 6 minutes beginning on room air without assistive devices. Pretesting oxygen saturation was noted to be 98% on room air. With ambulation, the chiquita oxygen saturation was 97%. There was no significant exertional oxygen desaturation. Recommendations Recommendations: There is no indication for the use of supplemental oxygen at this time.
== END | disposition home or self-care (01) ==
LOC: PSN 08:11
PROVIDERS: PCP Family Medicine; Referring Provider Nurse Practitioner Family; Visit Provider Nurse Practitioner Family
DX: R06.02 Shortness of breath (principal)
CPT/HCPCS: 94618

== ENCOUNTER → 2024-11-21 | Outpatient (CLI) | payer MEDICARE, SELFPAY ==
[2024-09-14 09:52] VITALS: BMI 28.9
== END | disposition home or self-care (01) ==
LOC: PSN 08:18
PROVIDERS: PCP Family Medicine; Referring Provider Nurse Practitioner Family; Visit Provider Nurse Practitioner Family
DX: R06.02 Shortness of breath (principal)
CPT/HCPCS: 94060; 94726; 94729

== ENCOUNTER 2024-11-23 08:00 | Outpatient (RCR) | payer MEDICARE, MEDICAID, SELFPAY ==
[2024-09-14 09:52] VITALS: BMI 28.9
== END 2024-11-25 23:59 ==
LOC: CR 08:00
PROVIDERS: PCP Family Medicine; Referring Provider Internal Medicine Cardiovascular Disease; Visit Provider Internal Medicine Cardiovascular Disease
DX: Z00.00 Encounter for general adult medical examination without abnormal findings (principal)

== ENCOUNTER → 2024-12-15 | Outpatient (CLI) | payer MEDICARE, MEDICAID, SELFPAY ==
[2024-09-14 09:52] VITALS: BMI 28.9
[2024-12-15 11:16] LABS: Absolute Lymphocyte Count 1.36 X10^3/uL (0.83-4.51); Absolute Neutrophil Count 7.8 X10^3/uL (2.0-7.7); Basophil# 0.04 X10^3/uL; Basophil% 0.4 % (0-1); Eosinophil# 0.21 X10^3/uL; Eosinophils% 2.1 % (0-5); Hemoglobin 14.4 g/dL (12.0-15.0); Lymphocyte # 1.36 X10^3/ul (0.83-4.51); Lymphocyte % 13.5 % (19-41); Mean Corp Hgb Conc 33.5 g/dL (32-36); Mean Corpuscular Hgb 31.6 pg (27.0-32.0); Mean Corpuscular Volume 94.5 fL (81-99); Monocyte# 0.65 X10^3/uL; Monocyte% 6.5 % (0-10); NRBC Flagged by Analyzer 0 % (0-5); Neutrophil # 7.77 X10^3/uL (2.7-7.7); Neutrophil % 77.1 % (47-70); Platelet Count 264 K/mm3 (150-450); RBC Distribution Width CV 12.4 % (11.6-14.6); RBC Distribution Width SD 43.1 fl (35.1-43.9); Red Blood Count 4.55 M/mm3 (4.2-5.4); White Blood Count 10.1 K/mm3 (4.4-11.0)
== END | disposition home or self-care (01) ==
LOC: LAB 10:04
PROVIDERS: PCP Family Medicine; Referring Provider Nurse Practitioner Family; Visit Provider Nurse Practitioner Family
DX: R06.02 Shortness of breath (principal)
CPT/HCPCS: 36415; 85025

== ENCOUNTER 2024-12-21 08:00 | Outpatient (RCR) | payer SELFPAY ==
[2024-09-14 09:52] VITALS: BMI 28.9
== END 2024-12-25 23:59 ==
LOC: CR 08:00
PROVIDERS: PCP Family Medicine; Referring Provider Internal Medicine Cardiovascular Disease; Visit Provider Internal Medicine Cardiovascular Disease
DX: Z00.00 Encounter for general adult medical examination without abnormal findings (principal)

== ENCOUNTER → 2025-01-18 | Outpatient (CLI) | payer MEDICARE, MEDICAID, SELFPAY ==
[2024-09-14 09:52] VITALS: BMI 28.9
--- NOTE | 2025-01-18 12:15 | ECHOCS_ITS ---
Reason For Study : SOB Procedure This was a 2D Doppler, Color Flow transthoracic echocardiogram. Contrast injection was performed. Exam performed in department. Left Ventricle Normal LV size. The left ventricular ejection fraction is 55 %. Stage 1 diastolic dysfunction. Segmental dysfunction with preserved ejection fraction (see wall motion). [place] : Akinetic. Right Ventricle Normal RV size. Normal systolic function. Atria Normal left atrium. Normal right atrium. Mitral Valve Normal mitral valve. Mild (1+) eccentric mitral valve insufficiency. Tricuspid Valve Normal tricuspid valve. Moderate (2+) tricuspid valve insufficiency. Pulmonary artery systolic pressure is 32 mmHg. Aortic Valve Trisinus/trileaflet aortic valve. Normal aortic valve. Pulmonic Valve Normal pulmonic valve. Great Vessels Normal aortic root. The pulmonary artery is normal size. Inferior vena cava collapse with respiration. Pericardium/Pleural No pericardial effusion. Medication 22 gauge I.V. with prn adaptor inserted into right arm. Diluted definity 2ml given slow IV push to enhance endocardial definition. MMode/2D Measurements & Calculations LVIDd: 5.1 cm IVSd: 0.99 cm Ao root diam: 3.1 cm LVIDs: 3.3 cm LVPWd: 1.0 cm RVDd: 4.5 cm FS: 34.3 % LAV(MOD-bp): 65.5 ml LVAd ap4: 30.1 cm2 SV(MOD-sp4): 58.2 ml LAV(MOD-bp) Indexed: 38.7 ml/m2 LVLd ap4: 7.4 cm SI(MOD-sp4): 34.4 ml/m2 LAV(MOD-sp2): 54.3 ml EDV(MOD-sp4): 99.9 ml LAV(MOD-sp4): 63.8 ml EDV(sp4-el): 103.7 ml LVAs ap4: 19.6 cm2 LVLs ap4: 7.5 cm ESV(MOD-sp4): 41.7 ml ESV(sp4-el): 43.4 ml EF(MOD-sp4): 58.2 % EF(sp4-el): 58.2 % SV(sp4-el): 60.3 ml LA A4 area: 21.9 cm2 LA dimension(2D): 3.9 cm RA A4 area: 20.8 cm2 TAPSE: 1.6 cm Time Measurements MV dec time: 0.30 sec Doppler Measurements & Calculations MV E max espinoza: 58.9 cm/sec Lat Peak E' Espinoza: 11.5 cm/sec Med Peak E' Espinoza: 9.4 cm/sec MV A max espinoza: 65.4 cm/sec E/E' lat: 5.1 E/E' med: 6.3 MV E/A: 0.90 MV V2 max: 79.3 cm/sec MV P1/2t max espinoza: 75.0 cm/sec Ao V2 max: 113.1 cm/sec MV max P.5 mmHg MV P1/2t: 99.1 msec Ao max P.1 mmHg MV V2 mean: 43.1 cm/sec MV dec slope: 221.4 cm/sec2 Ao V2 mean: 73.4 cm/sec MV mean P.87 mmHg MVA(P1/2t): 2.2 cm2 Ao mean P.5 mmHg MV V2 VTI: 28.0 cm Ao V2 VTI: 31.1 cm AV (velocity ratio): 0.74 LV V1 max: 87.4 cm/sec MR max espinoza: 626.8 cm/sec TR max espinoza: 267.3 cm/sec LV V1 max P.1 mmHg MR max P.1 mmHg TR max P.6 mmHg LV V1 mean P.6 mmHg MR mean espinoza: 432.1 cm/sec LV V1 mean: 57.6 cm/sec MR mean P.1 mmHg LV V1 VTI: 22.9 cm MR VTI: 226.1 cm ECHO/Echo Complete W/ Contrast Interpretation Summary The left ventricular ejection fraction is 55 %. Normal LV size. Stage 1 diastolic dysfunction. [place] : Akinetic. Mild (1+) eccentric mitral valve insufficiency. Moderate (2+) tricuspid valve insufficiency. Cannot completely exclude apical thrombus small Ordering Physician: Carly Colin Referring Physician: Teresa Boggs Performed By: Ruslan Perez RCS
== END | disposition home or self-care (01) ==
LOC: CVS 12:13
PROVIDERS: PCP Family Medicine; Referring Provider Nurse Practitioner Family; Visit Provider Nurse Practitioner Family
DX: R06.02 Shortness of breath (principal)
CPT/HCPCS: 93306; Q9957; A4216; C8929

== ENCOUNTER 2025-01-25 08:00 | Outpatient (RCR) | payer SELFPAY ==
[2024-09-14 09:52] VITALS: BMI 28.9
== END 2025-01-25 23:59 ==
LOC: CR 08:00
PROVIDERS: PCP Family Medicine; Referring Provider Internal Medicine Cardiovascular Disease; Visit Provider Internal Medicine Cardiovascular Disease
DX: Z00.00 Encounter for general adult medical examination without abnormal findings (principal)

== ENCOUNTER → 2025-02-06 | Outpatient (CLI) | payer MEDICARE, MEDICAID, SELFPAY ==
[2024-09-14 09:52] VITALS: BMI 28.9
--- OUTSIDE RECORDS SUMMARY | 2025-02-06 07:11 | XMS RPT_ITS | CCD ---
Author Organization [facility] Care Team Providers Care Restoration Officer Name Role Phone Lyons, Sejal Unavailable Unavailable Roof TRAILER DRIVER, Carrington H Unavailable Roof TRAILER DRIVER, Carrington H Unavailable Lyons, Sejal Unavailable Unavailable Lyons, Sejal Unavailable Unavailable Lyons, Sejal Unavailable Unavailable Moises Muniz (Res) Primary Care Provider Unavail able Dr. Teresa Boggs Primary Care Provider Dr. Teresa Boggs Referring Provider Silvino HOWE, TRAILER DRIVER-C Sharla Attending Provider Dr. Teresa Boggs Primary Care Provider Dr. Teresa Boggs Referring Provider Dr. Christian Reynolds Attending Provider [phone] Dustin Lemus Attending Provider Dr. Carlos Peoples Attending Provider [phone] Dr. Carlos Peoples Other Provider Dr. Carlos Peoples Referring Provider [phone] Dr. Carlos Peoples Referring Provider [phone] Luis TRAILER DRIVER, TRAILER DRIVER-C Lia Rizo Attending Provider Dr. Teresa Boggs Primary Care Provider Dr. Teresa Boggs Referring Provider Dr. Carlos Peoples Attending Provider Dr. Dustin Lemus Attending Provider Dr. Carlos Peoples Referring Provider Dr. Carlos Peoples Other Provider Luis HOWE, TRAILER DRIVER-C Lia Rizo Attending Provider Flakita, Dr. Moore Primary Care Provider [phone] Flakita, Dr. Moore Referring Provider Dr. Carlos Peoples Attending Provider Darshana Espinoza Attending Provider Unavailable Friend, Dr. Arenas Attending Provider [phone] Friend, Dr. Arenas Other Provider [phone] Flakita, Dr. Moore Primary Care Provider [phone] Flakita, Dr. Moore Referring Provider Silvino TRAILER DRIVER, TRAILER DRIVER-C Sharla Attending Provider Flakita, Dr. Moore Primary Care Provider Flakita, Dr. Moore Referring Provider JENNY Marcano Attending Provider Dr. Teresa Boggs Primary Care Provider [phone] Dr. Teresa Boggs Referring Provider JENNY Marcano Attending Provider Teresa Boggs Primary Care Provider NATALY TOVAR Admitting Unavailable DAVID PATEL Attending Unavailable TERESA BOGGS Primary Care Unavailable DUSTIN LEMUS Referring Unavailable Dr. Teresa Boggs DO Primary Care Provider [phone] Dr. Teresa Boggs DO Referring Provider [phone] Ashu HOWE-Carrington Estrada Attending Provider Dr. Dustin Lemus MD Attending Provider [phone] Dr. Dustin Lemus MD Referring Provider [phone] Quinton Garcia Attending Provider Dr. Teresa Boggs DO Attending Provider [phone] Flakita WILLIS, Dr. Moore Primary Care Provider [phone] Teresa Boggs DO Referring Provider Ana Marcano Attending Provider Flakita WILLIS, Dr. Moore Primary Care Provider Allan METCALF, Dr. Chan Attending Provider Allan METCALF, Dr. Chan Referring Provider Ana Marcano Referring Provider Flakita WILLIS, Dr. Moore Primary Care Provider Allan METCALF, Dr. Chan Attending Provider Allan METCALF, Dr. Chan Referring Provider Dixie TRAILER DRIVER-C, Carly Urena Attending Provider Dixie TRAILER DRIVER-C, Carly Urena Referring Provider Dixie TRAILER DRIVER-C, Carly Urena Other Provider Aiden WILLIS, Dr. Garcia Attending Provider Flakita WILLIS, Dr. Moore Primary Care Provider [phone] Flakita WILLIS, Dr. Moore Referring Provider Dr. Dustin Lemus MD Attending Provider Allan METCALF, Dr. Chan Referring Provider Flakita WILLIS, Dr. Moore Primary Care Provider [phone] lFakita WILLIS, Dr. Moore Attending Provider Flakita WILLIS, Dr. Moore Referring Provider Flakita WILLIS, Dr. Moore Primary Care Provider [phone] Flakita WILLIS, Dr. Moore Referring Provider Flakita WILLIS, Dr. Moore Attending Provider Allan METCALF, Dr. Chan Attending Provider [phone] Allan METCALF, Dr. Chan Referring Provider Flakita WILLIS, Dr. Moore Primary Care Provider [phone] Ana Marcano Attending Provider Flakita WILLIS, Dr. Moore Referring Provider [phone] Flakita WILLIS, Dr. Moore Attending Provider [phone] Flakita WILLIS, Dr. Moore Primary Care Provider Allan METCALF, Dr. Chan Attending Provider Allan METCALF, Dr. Chan Referring Provider Malys, Teresa Primary Care Unavailable Ana Marcano Referring Unavail able Ana Marcano Attending Unavail able Malys, Teresa Primary Care Unavailable Allan, Chugwater Referring Unavailable Allan, Dustin Attending Unavailable Malys, Teresa Primary Care Unavailable Ana Marcano Attending Unavail able Allan, Dustin Consulting Unavailable Ana Marcano Referring Unavail able Ana Marcano Attending Unavail able Malys, Teresa Primary Care Unavailable Malys, Teresa Primary Care Unavailable Allan, Dustin Referring Unavailable Allan, Dustin Attending Unavailable Malys, Teresa Primary Care Unavailable Allan, Dustin Attending Unavailable Malys, Teresa Primary Care Unavailable Carly Colin Referring Unavailable Jose Wolfe Attending Unavailable Malys, Teresa Referring Unavailable Malys, Teresa Primary Care Unavailable Celeste Jordan Attending Unavailable Malys, Teresa Primary Care Unavailable Allan, Chugwater Referring Unavailable Allan, Dustin Attending Unavailable Malys, Teresa Primary Care Unavailable Malys, Teresa Referring Unavailable Ana Marcano Attending Unavail able Malys, Teresa Referring Unavailable RufenerCarly M Attending Unavailable Malys, Teresa Primary Care Unavailable Malys, Teresa Primary Care Unavailable Allan, Chugwater Attending Unavailable Allan, Chugwater Referring Unavailable Malys, Teresa Primary Care Unavailable Allan, Chugwater Attending Unavailable Allan, Chugwater Referring Unavailable Malys, Teresa Primary Care Unavailable Allan, Chugwater Referring Unavailable Allan, Dustin Attending Unavailable Malys, Teresa Primary Care Unavailable Ana Marcano M Attending Unavail able Ana Marcano Referring Unavail able Malys, Teresa Primary Care Unavailable Malys, Teresa Attending Unavailable Malys, Teresa Referring Unavailable Malys, Teresa Primary Care Unavailable Allan, Chugwater Referring Unavailable Allan, Dustin Attending Unavailable Malys, Teresa Primary Care Unavailable Malys, Teresa Attending Unavailable Malys, Teresa Referring Unavailable Malys, Teresa Primary Care Unavailable Malys, Teresa Attending Unavailable LoboerCarly M Referring Unavailable RumariaherCarly M Attending Unavailable Malys, Teresa Primary Care Unavailable Malys, Teresa Primary Care Unavailable Allan, Dustin Attending Unavailable Allan, Chugwater Referring Unavailable Malys, Teresa Primary Care Unavailable Ana Marcano Referring Unavail able Bassam Ray Attending Unavailable Malys, Teresa Primary Care Unavailable Allan, Chugwater Attending Unavailable Allan, Chugwater Referring Unavailable Malys, Teresa Referring Unavailable Malys, Teresa Attending Unavailable Malys, Teresa Primary Care Unavailable Malys, Teresa Primary Care Unavailable Allan, Dustin Referring Unavailable Allan, Chugwater Attending Unavailable Malys, Teresa Primary Care Unavailable Allan, Dustin Attending Unavailable Allan, Chugwater Referring Unavailable Malys, Teresa Primary Care Unavailable Allan, Dustin Attending Unavailable Allan, Dustin Referring Unavailable Malys, Teresa Primary Care Unavailable Demiter Mundo Attending Unavailable Demiter, Mundo Referring Unavailable Malys, Tersea Primary Care Unavailable Carly Colin M Referring Unavailable Carly Colin M Consulting Unavailable Jose Wolfe Attending Unavailable Malys, Teresa Referring Unavailable Malys, Teresa Primary Care Unavailable Carly Colin M Attending Unavailable Malys, Teresa Primary Care Unavailable Celeste Jordan Attending Unavailable Malys, Teresa Referring Unavailable Malys, Teresa Referring Unavailable Malys, Teresa Primary Care Unavailable Ana Marcano M Attending Unavail able Malys, Teresa Referring Unavailable Malys, Teresa Primary Care Unavailable Quinton Garcia Attending Unavailable Malys, Teresa Referring Unavailable Malys, Teresa Primary Care Unavailable Carrington Wakefield NP Attending Unavailable Malys, Teresa Primary Care Unavailable Allan, Dustin Attending Unavailable Allan, Chugwater Referring Unavailable Malys, Teresa Primary Care Unavailable Allan, Chugwater Attending Unavailable Allan, Chugwater Referring Unavailable Malys, Teresa Attending Unavailable Malys, Teresa Primary Care Unavailable Malys, Teresa Primary Care Unavailable Rufener, Carly M Referring Unavailable Carly Colin Attending Unavailable Malys, Teresa Primary Care Unavailable Carly Colin Referring Unavailable Carly Colin Attending Unavailable Malys, Teresa Primary Care Unavailable Carly Colin Referring Unavailable Carly Colin Attending Unavailable Malys, Teresa Referring Unavailable Malys, Teresa Attending Unavailable Malys, Teresa Primary Care Unavailable Malys, Teresa Primary Care Unavailable Allan, Chugwater Referring Unavailable Allan, Chugwater Attending Unavailable Allan, Dustin Admitting Unavailable Allergies Allergy Classification Reported Allergen(s) Allergy Type Date of Onset Reaction(s) Facility Acetaminophen / oxyCODONE (1 source) Acetaminophen / oxyCODONE Drug Allergy 1 Rash [facility] Adhesive Tape (1 source) Adhesive Tape Substance Allergy 8 [facility] Furosemide (1 source) Furosemide Drug Allergy 1 Itching [facility] Opioid Agonists (2 sources) Codeine Drug Allergy 7 Rash, GI Upset [facility] (6 sources) acetaminophen drug allergy 3 rash [facility] Work Phone: [phone] (6 sources) acetaminophen / oxyCODONE drug allergy 3 rash [facility] Work Phone: [phone] (20 sources) Adhesive Tape; Translations: [ADHESIVE TAPE] allergy to substance 2 Rash [facility] Work Phone: (8 sources) Angiotensin Converting Enzyme (Nicholas) Inhibitors drug allergy 8 Angioedema [facility] Work Phone: [phone] (6 sources) apis mellifera venom; Translations: [BEE STINGS] allergy to substance 4 [facility] Work Phone: (20 sources) codeine; Translations: [codeine] drug allergy 3 Itching [facility] Work Phone: (20 sources) doxazosin; Translations: [doxazosin] drug allergy 6 Other [facility] Work Phone: [phone] (6 sources) furosemide drug allergy 3 rash [facility] Work Phone: (6 sources) traMADol drug allergy 3 [facility] Work Phone: [phone] (20 sources) Furosemide Drug Allergy 2 Itching [facility] (2 sources) Isosorbide Drug Allergy 1 Dizzy, not feeling well [facility] Work Phone: (20 sources) Latex Allergy to substance 2 Rash [facility] (20 sources) Lisinopril Drug Allergy 2 Angioedema [facility] (20 sources) oxyCODONE; Translations: [oxycodone HCl] Drug Allergy 2 Itching [facility] (20 sources) traMADol; Translations: [tramadol HCl] Drug Allergy 2 Itching [facility] (2 sources) bee venom Allergy to substance 4 Anaphylaxis [facility] (2 sources) Furosemide Drug Allergy 4 Itching [facility] (2 sources) Latex Allergy to substance 4 Rash, Other [facility] (1 source) Furosemide Drug Allergy 5 [facility] (1 source) Latex Drug allergy (disorder) 5 [facility] (1 source) Lisinopril Drug Allergy 5 [facility] Medications Current Medications Medication Drug Class(es) Dates Sig (Normalized) Sig (Original) acetaminophen 325 mg / oxyCODONE hydrochloride 5 mg oral tablet (20 sources) Opioid Agonist Start: 07-15-2022 take 1 tablet by mouth every six hours Oxycodone-Acetami nophen (Percocet) 5-325 mg tablet Active 1 TABLET PO EVERY 6 HOURS 28 7 July 15, 2022 28 tabs (twenty-eight) Start: 07-05-2018 End: 07-08-2018 Oxycodone-Acetaminophen 1 TA BLET tablet Discontinued 1 {tbl} PO EVERY 6 HOURS NEEDED as needed for Pain 8 3 0 July 05, 2018 1:00am July 07, 2018 1:00am July 08, 2018 1:11am Back pain Dorsalgia, unspecified Start: 07-05-2018 End: 07-08-2018 take 1 tablet by mouth every six hours as needed Oxycodone-Acetaminophen Discontinued 1 TABLET PO EVERY 6 HOURS NEEDED 8 3 July 05, 2018 1:00am July 08, 2018 1:11am aspirin 81 mg chewable tablet (20 sources) Nonsteroidal Anti-inflammatory Drug Start: 09-24-2016 take 1 tablet by mouth once daily Aspirin 81 MG tablet,chewable Active 81 mg PO DAILY@0800 September 24, 2016 12:00am ANTIPLATELET Start: 02-03-2014 End: 06-17-2016 take 1 tablet by mouth once daily Aspirin 81 MG Tab.Chew Discontinued 81 mg PO DAILY@0800 February 03, 2014 12:00am June 17, 2016 3:15pm Start: 10-19-2012 take 1 tablet by augusto once daily ASPIRIN 81 MG TABS One tablet by mouth daily ASPIRIN [id number] Teresa Boggs DO Start: 10-19-2012 take 1 tablet by augusto once daily ASPIRIN 81 MG TABS One tablet by mouth daily ASPIRIN [id number] Lilly Andersen RN Start: 03-08-2007 End: 05-04-2024 take 81 mg by mouth once daily 81 mg, Oral, Daily, Fir st dose on Wed05/02/24 at 0900, Do not crush, chew, or split. Comment on above: Take one(1) tablet d aily. Calcium Carbonate / vitamin D3 (13 sources) Start: 06-08-2022 take 1 capsule by mouth once daily Calcium Carbonate-Vitamin D3 Active 1 CAP PO DAILY June 08, 2022 1:00am Start: 06-08-2022 take 1 capsule by mo idh once daily Calcium Carbonate-Vitamin D3 Active 1 CAP PO DAILY June 08, 2022 12:00am Calcium Carbonate-Vitamin D3 500 mg(1,250mg) -50 unit capsule (14 sources) Start: 06-08-2022 Calcium Carbonate-Vitamin D3 500 mg(1,250mg) -50 unit capsule Active 1 NMA PO DAILY June 08, 2022 1:00am cyclobenzaprine hydrochloride 5 mg oral tablet (20 sources) Muscle Relaxant Start: 05-06-2022 Cyclobenzaprin e 5 mg tablet Active 5 mg PO NEEDED as needed for Muscle Pain May 06, 2022 1:00am Start: 05-06-2022 Cyclobenzaprin e Active EACH PO May 06, 2022 12:00am Start: 11-02-2019 End: 11-28-2019 Cyclobenzaprine 5 MG tablet Discontinued 5 mg PO NEEDED as needed for Pain Or Fever November 02, 2019 12:00am November 28, 2019 9:03am Duloxetine 60 mg capsule,delayed release(DR/EC) (14 sources) Start: 07-10-2022 take 1 capsule by mouth once daily Duloxetine 60 mg capsule,delayed release(DR/EC) Active 60 mg PO DAILY July 10, 2022 1:00am estradiol 0.1 mg/ml vaginal cream (20 sources) Estrogen Start: 02-02-2024 End: 04-06-2024 Estradiol 0.01 % (0.1 mg/gram) cream Active 0 .ROUTE .COMPLEX 42.5 2 April 06, 2024 11:45am Vaginal atrophy Postmenopausal atrophic vaginitis 1 toshia as directed; pea sized amount using fingertip method every night x 2 weeks then 2 times per week thereafter. Lactobacil-Fructooligos -Pectin (13 sources) Start: 06-08-2022 take 1 capsule by mouth once daily Lactobacil-Fructooligo s-Pectin Active 1 CAP PO DAILY June 08, 2022 1:00am Start: 06-08-2022 take 1 capsule by mouth once daily Liwngospdb-Sfvswvxbebor-Yhyttq Active 1 CAP PO DAILY June 08, 2022 12:00am Multivitamin With Folic Acid (18 sources) Start: 02-03-2014 take 1 tablet by mouth once daily Multivitamin With Folic Acid Active 1 TABLET PO DAILY February 02, 2014 11:00pm Start: 02-03-2014 take 1 tablet by augusto th once daily Multivitamin With Folic Acid Active 1 TABLET PO DAILY February 03, 2014 12:00am [place]-3 Fatty Acids (18 sources) Start: 10-20-2015 take 1500 mg by mout h once daily [place]-3 Fatty Acids Active 1500 MG PO DAILY October 19, 2015 11:00pm Start: 10-20-2015 take 1500 mg by mouth once maureen ly [place]-3 Fatty Acids Active 1500 MG PO DAILY October 20, 2015 12:00am levothyroxine sodium 0.05 mg oral tablet (20 sources) l-Thyroxine Start: 07-10-2022 End: 12-15-2024 take 1 tablet by mouth once daily Levothyroxine 50 mcg tablet Active 50 ug PO daily December 15, 2024 9:01am Start: 06-08-2022 End: 07-10-2022 Levothyroxine 75 mcg tablet Discontinued 50 ug PO MOTUWETHFRSA June 08, 2022 11:02am July 10, 2022 10:32am Start: 06-08-2022 End: 07-10-2022 Levothyroxine Discontinued 5 0 MCG PO MOTUWETHFRSA June 08, 2022 11:02am July 10, 2022 10:32am Start: 05-06-2022 End: 06-08-2022 Levothyroxine 75 mcg tablet Discontinued NMA PO May 06, 2022 1:00am June 08, 2022 11:07am Start: 05-06-2022 End: 06-08-2022 Levothyroxine Discontinued T AB PO May 06, 2022 1:00am June 08, 2022 11:07am Start: 07-10-2021 End: 05-06-2022 Levothyroxine 50 mcg tablet Discontinued 50 ug PO DAILY January 12, 2022 9:33am May 06, 2022 11:56am THYROID 75 mcg t,th 50 mcg leslie urena,cesar,brooklynn, radha Start: 10-26-2012 take 1 tablet by augusto th every other day, then take 75 ug by mouth LEVOTHYROXINE SODIUM 50 MCG TABS 50 mcg by mouth every other day alt with 75 mcg LEVOTHYROXINE SODIUM [id number] Teresa Boggs DO Start: 10-19-2012 End: 07-10-2021 take 1 tablet by mouth once daily Levothyroxine 50 MCG tablet Discontinued 50 ug PO DAILY February 03, 2014 12:00am July 10, 2021 12:16pm THYROID Start: 10-19-2012 take 1 tablet by augusto th every other day LEVOTHYROXINE SODIUM 75 MCG TABS one tablet by mouth every other day alternate with 50mcg LEVOTHYROXINE SODIUM [id number] Teresa Boggs DO Start: 08-29-2007 End: 10-03-2007 levothyroxine sodium(SYNTHRO ID 25 MCG TAB) Indications: Unspecified hypothyroidism Take one(1) tablet daily. 30 5 08/29/2007 10/03/2007 Discontinued (Duplicate Entry) Comment on above: Take one(1) tablet d aily. zinc gluconate 30 mg oral tablet (1 source) Start: 05-06-2022 take 30 mg by mouth once daily Zinc Gluconate Active 30 MG PO DAILY May 06, 2022 12:00am Completed/Discontinued Medications Medication Drug Class(es) Dates Sig (Normalized) Sig (Original) acetaminophen (20 sources) Start: 05-02-2024 End: 05-04-2024 take 1 tablet by mouth every six hours as needed for pain and fever acetaminophen (Tylenol) tablet 650 mg Start: 02-28-2014 End: 11-06-2015 take 2 tablets by mouth once daily as needed TYLENOL EXTRA STRENGTH 500 MG TABS Two tablets by mouth daily as needed ACETAMINOPHEN [id number] Teresa Boggs DO acetaminophen 325 mg / HYDROcodone bitartrate 5 mg oral tablet (20 sources) Opioid Agonist Start: 07-15-2022 End: 07-30-2022 take 7-10 tablets by mouth every six hours as needed for pain Hydrocodone-Acetaminophen 5-325 mg tablet Discontinued 1 {tbl} PO EVERY 6 HOURS as needed for pain (scale score 7-10) 28 7 July 15, 2022 July 30, 2022 11:01am Other acute postprocedural pain Other acute postprocedural pain 28 tabs (twenty-eight) Start: 07-15-2022 End: 07-30-2022 take 1 tablet by mouth every six hours Hydrocodone-Acetaminophen Discontinued 1 TABLET PO EVERY 6 HOURS 28 7 July 15, 2022 July 30, 2022 11:01am 28 tabs (twenty-eight) ALBUTEROL SULFATE (12 sources) beta2-Adrenergic Agonist Start: 09-10-2015 End: 04-03-2016 VENTOLIN HFA 108 (90 Base) MCG/ACT AERS 2 puffs inhaled every 4-6 hours as needed ALBUTEROL SULFATE [id number] Teresa Boggs DO Start: 09-10-2015 End: 04-03-2016 VENTOLIN HFA 108 (90 Base) M CG/ACT AERS 2 puffs inhaled every 4-6 hours as needed ALBUTEROL SULFATE [id number] Braeden Contreras Karen OIL GAS AND PIPE TESTER-C Start: 09-10-2015 VENTOLIN HFA 1 08 (90 Base) MCG/ACT AERS 2 puffs inhaled every 4-6 hours as needed ALBUTEROL SULFATE [id number] Teresa Boggs DO aluminum hydroxide 40 mg/ml / magnesium hydroxide 40 mg/ml / simethicone 4 mg/ml oral suspension (2 sources) Start: 05-02-2024 End: 05-04-2024 10 mL, Oral, PRN, indigestion, heartburn, Starting on Wed05/02/24 at 1836 amiodarone hydrochloride 200 mg oral tablet (12 sources) Antiarrhythmic Start: 10-25-2015 End: 04-03-2016 take 1 tablet by mouth once daily AMIODARONE HCL 200 MG TABS One tablet by mouth daily AMIODARONE HCL [id number] Braeden Contreras Karen O[employer] P[employer] TESTER-C amLODIPine 10 mg oral tablet (20 sources) Dihydropyridine Calcium Channel Jocelynn Start: 02-03-2014 End: 05-31-2024 take 1 tablet by mouth once daily Amlodipine 10 mg tablet Discontinued 10 mg PO DAILY June 22, 2023 4:46pm March 28, 2024 10:41am Start: 08-29-2007 End: 08-01-2013 take 1 tablet by mouth once daily NORVASC 10 MG TABS One tablet by mouth daily AMLODIPINE BESYLATE [id number] Dustin Lemus MD Comment on above: Take one(1) tablet d aily. amoxicillin 875 mg / clavulanate 125 mg oral tablet (14 sources) Penicillin-class Antibacterial Start: 07-20-19 End: 07-30-19 Amoxicillin-Pot Clavulanate 875-125 mg tablet Discontinued 1 {tbl} PO Q12H 20 10 0 July 20, 2024 1:00am July 29, 2024 1:00am July 30, 2024 1:11am Acute sinusitis, unspecified atenolol 100 mg oral tablet (1 source) beta-Adrenergic Jocelynn Start: 08-29-19 End: 01-21-20 11 ATENOLOL 100 MG TAB Indications: Essential hypertension, benign Take one(1) tablet daily. 30 5 08/29/2007 07/18/2010 Discontinued Comment on above: Take one(1) tablet d aily. azithromycin 250 mg oral tablet (14 sources) Macrolide Antimicrobial Start: 07-20-19 End: 09-08-19 take 2-5 tablets by mouth once daily Azithromycin 250 mg tablet Discontinued 0 PO .COMPLEX 6 0 July 20, 2024 1:00am September 07, 2024 7:59am take 500 mg today (day 1), then 250 mg for 4 days (days 2-5) PO benzonatate 100 mg oral capsule (14 sources) Non-narcotic Antitussive Start: 07-20-19 End: 12-16-19 take 2 capsules by mouth three times daily as needed for cough Benzonatate 100 mg capsule Discontinued 200 mg PO THREE TIMES A DAY as needed for cough 30 July 20, 2024 1:00am December 15, 2024 9:00am busPIRone hydrochloride 10 mg oral tablet (20 sources) Start: 05-02-20 End: 05-04-20 take 15 mg by mouth three times daily 15 mg, Oral, 3 times daily, First dose on Wed05/02/24 at 0900 Start: 05-26-2023 take 3 tablets by mo [facility] three times daily Buspirone 5 mg tablet Active 15 mg PO THREE TIMES A DAY May 26, 2023 3:17pm MENTAL [facility] Start: 05-26-2023 take 15 mg by mouth three times daily Buspirone Active 15 MG PO THREE TIMES A DAY May 26, 2023 3:17pm Start: 02-03-2014 End: 05-26-2023 take 2 tablets by mouth three times daily Buspirone 5 MG tablet Discontinued 10 mg PO THREE TIMES A DAY February 03, 2014 12:00am May 26, 2023 3:18pm MENTAL HEALTH Start: 02-03-2014 End: 05-26-2023 take 10 mg by mouth three times daily Buspirone Discontinued 10 MG PO THREE TIMES A DAY February 03, 2014 12:00am May 26, 2023 3:18pm Start: 10-26-2012 take 1 tablet by augusto three times daily BUSPIRONE HCL 10 MG TABS One tablet by mouth three times daily BUSPIRONE HCL [id number] Dustin Lemus MD Start: 08-29-2007 End: 06-05-2011 BUSPIRONE 10 MG TAB Indicati ons: Essential hypertension, benign , Anxiety state, unspecified Take one(1) tablet two(2) times daily. 60 5 08/29/2007 06/05/2011 Discontinued (Discontinued by Patient) take 1 tablet by augusto th three times daily busPIRone (Buspar) 15 MG tablet Take 15 mg by mouth 3 times daily. Active Comment on above: Take one(1) tablet t wo(2) times daily. calcium chloride 0.0014 meq/ml / potassium chloride 0.004 meq/ml / sodium chloride 0.103 meq/ml / sodium lactate 0.028 meq/ml injectable solution (2 sources) Start: 05-02-20 End: 05-02-20 1,000 mL, IntraVENous, at 500 mL/hr, Administer over 2 Hours, Once, On Wed05/02/24 at 1730, For 1 dose celecoxib 200 mg oral capsule (12 sources) Nonsteroidal Anti-inflammatory Drug Start: 10-20-19 13 End: 07-25-19 14 take 1 tablet by mouth once daily CELEBREX 200 MG CAPS One tablet by mouth daily CELECOXIB [id number] Lilly Andersen RN cephalexin 500 mg oral capsule (14 sources) Cephalosporin Antibacterial Start: 12-31-19 End: 01-06-20 24 take 1 capsule by mouth every twelve hours Cephalexin 500 mg capsule Discontinued 500 mg PO Q12H 20 10 0 December 31, 2023 12:00am January 09, 2024 12:00am January 06, 2024 11:22am cetirizine hydrochloride 10 mg oral capsule (20 sources) Histamine-1 Receptor Antagonist Start: 11-02-19 End: 09-08-19 take 1 capsule by mouth once daily Cetirizine 10 MG capsule Discontinued 10 mg PO DAILY November 02, 2019 12:00am September 07, 2024 7:59am clindamycin 300 mg oral capsule (20 sources) Lincosamide Antibacterial Start: 07-15-19 23 End: 07-21-19 23 take 1 capsule by mouth three times daily Clindamycin Hcl (Cleocin Hcl) 300 mg capsule Discontinued 300 mg PO THREE TIMES A DAY 12 0 July 15, 2022 1:00am July 21, 2022 11:21am clopidogrel 75 mg oral tablet (20 sources) [id number] Platelet Inhibitor Start: 03-23-20 End: 05-10-20 take 1 tablet by mouth once daily Clopidogrel 75 mg tablet Discontinued 75 mg PO DAILY 90 3 April 28, 2024 4:07pm May 10, 2024 4:45pm antiplatelet doxazosin 2 mg oral tablet (12 sources) alpha-Adrenergic Jocelynn Start: 08-07-19 End: 11-15-19 16 take 1 tablet by mouth once daily CARDURA 2 MG TABS One tablet by mouth daily DOXAZOSIN MESYLATE [id number] Dustin Lemus MD DULoxetine 60 mg delayed release oral capsule (20 sources) Serotonin and Norepinephrine Reuptake Inhibitor Start: 05-02-20 End: 05-04-20 take 60 mg by mouth once daily 60 mg, Oral, Daily, First dose on Wed05/02/24 at 0900, Do not crush or chew. Start: 07-10-2022 take 60 mg by mouth once daily Duloxetine Active 60 MG PO DAILY July 10, 2022 1:00am Start: 02-03-2014 End: 07-10-2022 take 2 capsules by mouth once daily Duloxetine 30 mg capsule,delayed release(DR/EC) Discontinued 60 mg PO DAILY November 28, 2019 9:01am July 10, 2022 10:32am MENTAL HEALTH Start: 02-03-2014 End: 07-10-2022 take 60 mg by mouth once daily Duloxetine Discontinued 60 MG PO DAILY November 28, 2019 9:01am July 10, 2022 10:32am Start: 10-26-2012 take 1 tablet by augusto th once daily CYMBALTA 30 MG CPEP One tablet by mouth daily DULOXETINE HCL [id number] Teresa Boggs DO Start: 10-26-2012 take 3 tablets by mo uth once daily CYMBALTA 30 MG CPEP Three tablets by mouth daily DULOXETINE HCL [id number] Dustin Lemus MD Start: 10-19-2012 take 1 tablet by augusto th twice daily CYMBALTA 60 MG CPEP One tablet by mouth twice daily DULOXETINE HCL [id number] Lilly Andersen RN EPINEPHRINE (20 sources) alpha-Adrenergic Agonist, beta-Adrenergic Agonist, Catecholamine Start: 01-23-2014 End: 02-28-2014 EPIPEN 2-RITA 0.3 MG/0.3ML SOAJ use as directed EPINEPHRINE [id number] Teresa A Malys, DO Start: 01-23-2014 EPIPEN 2-RITA 0 .3 MG/0.3ML SOAJ use as directed EPINEPHRINE [id number] Teresa A Malys, DO Start: 01-23-2014 End: 02-28-2014 EPIPEN 2-RITA 0.3 MG/0.3ML SO AJ use as directed EPINEPHRINE [id number] Sun Rtichie MD Start: 01-23-2014 EPIPEN 2-RITA 0 .3 MG/0.3ML SOAJ use as directed EPINEPHRINE [id number] Sun Ritchie MD fish oil (18 sources) Start: 11-15-2015 take 1 tablet by augusto once daily FISH OIL CAPS One tablet by mouth daily [place]-3 FATTY ACIDS CAPS [id number] Dustin Lemus MD Start: 10-19-2012 take 1 tablet by [facility] once daily FISH OIL CAPS One tablet by mouth daily [place]-3 FATTY ACIDS CAPS [id number] Lilly Andersen RN Start: 10-19-2012 End: 10-26-2012 take 1 tablet by mouth once daily FISH OIL CAPS One tablet by mouth daily [place]-3 FATTY ACIDS CAPS [id number] Dustin Lemus MD 250 ml heparin sodium, porcine 100 unt/ml injection (8 sources) Unfractionated Heparin, Anti-coagulant Start: 05-02-2024 End: 05-04-2024 5-30 Units/kg/hr 75.9 kg (3.795-22.77 mL/hr, rounded to 3.8-22.8 mL/hr), IntraVENous, Continuous, Starting on Wed05/02/24 at 0300, LOW Dose Heparin Weight Based Dosing (CAD/STEMI/NSTEMI/AFIB/ECMO) >>>>Initial dose: 12 units/kg/hr 95.9 Hold heparin for 60 min Decrease infusion by 2 units/kg/hr - notify prescriber; Check aPTT: 6 hours after initiation and 6 hours after every dose change - every 12 hrs x 1 day after 2 consecutive therapeutic aPTT - daily after every 12 hrs x 1 day is complete. Start: 05-02-2024 End: 05-04-2024 2,000 Units, IntraVENous, As needed, heparin dosing algorithm, Starting on Wed05/02/24 at 0255, Half dose re-bolus based on pharmacy algorithm Start: 05-02-2024 End: 05-04-2024 4,000 Units, IntraVENous, On ce, On Wed05/02/24 at 0300, For 1 dose, Initial one time bolus 24 hr isosorbide mononitrate 60 mg extended release oral tablet (20 sources) Start: 05-02-2024 End: 05-04-2024 take 1 tablet by mouth twice daily 30 mg, Oral, 2 times daily, First dose on Wed05/02/24 at 0600, Do not chew or crush ER tablets; may be divided in half. Due to insoluble matrix embedding, ER tablets that are scored may be split., On hold since Wed05/02/2024 at 1634 until manually unheld Start: 03-05-2020 End: 05-10-2024 take 1 tablet by mouth twice daily, then take 1 tablet by mouth every twenty-four hours Isosorbide Mononitrate 30 mg tablet extended release 24 hr Discontinued 30 mg PO TWICE A DAY 180 June 08, 2023 3:10pm March 28, 2024 10:41am Start: 11-13-2019 End: 03-05-2020 take 1 tablet by mouth once daily, then take 1 tablet by mouth every twenty-four hours Isosorbide Mononitrate 30 mg tablet extended release 24 hr Discontinued 30 mg PO DAILY 90 3 February 05, 2020 4:57pm March 05, 2020 1:04pm Start: 01-31-2018 End: 02-11-2018 take 1 tablet by mouth once daily, then take 1 tablet by mouth every twenty-four hours Isosorbide Mononitrate 30 mg tablet extended release 24 hr Discontinued 30 mg PO daily 30 January 31, 2018 12:00am February 11, 2018 9:36am Start: 04-19-2013 End: 08-06-2016 take 1 tablet by mouth once daily ISOSORBIDE MONONITRA TE ER 30 MG [id number] One tablet by mouth daily ISOSORBIDE MONONITRATE [id number] Chugwatersravani Lemsu MD Start: 04-19-2013 take 1 tablet by mouth once da angelique IMDUR 30 MG [id number] One tablet by mouth daily ISOSORBIDE MONONITRATE Dustin Lemus MD isosorbide dinitrate 40 mg extended release oral capsule (2 sources) Nitrate Vasodilator End: 05-04-2024 isosorbide dinitrate (Dilatrate-SR) 40 MG ER capsule Take 30 mg by mouth 2 times daily. Do not crush, chew, or split. 05/04/2024 Discontinued (Stop taking at discharge) L.Acidoph, Paracasei,B. Lactis (18 sources) Start: 08-08-2017 End: 03-08-2018 L.Acidoph, Paracasei,B. Lactis Discontinued 1 EACH PO DAILY August 08, 2017 12:00am March 08, 2018 9:20am Start: 08-08-2017 End: 03-08-2018 L.Acidoph, Paracasei,B. Lact is Discontinued 1 EACH PO DAILY August 08, 2017 1:00am March 08, 2018 10:20am L.Acidoph,Paracasei,B.Animal is 1 EACH capsule (14 sources) Start: 08-08-2017 End: 03-08-2018 take 1 capsule by mouth once daily L.Acidoph,Paracasei,B.Animalis 1 EACH capsule Discontinued 1 NMA PO DAILY August 08, 2017 1:00am March 08, 2018 10:20am PROBIOTIC Start: 08-08-2017 End: 03-08-2018 take 1 capsule by mouth once daily L.Acidoph,Paracasei,B.Animalis 1 EACH ca psule Discontinued 1 NMA PO DAILY August 08, 2017 1:00am March 08, 2018 10:20am L.Acidoph,Saliva-B.Bif-S.The rm (Acidophilus Probiotic Blend) 175 mg capsule (20 sources) Start: 07-15-2022 End: 08-21-2022 take 1 capsule by mouth once daily L.Acidoph,Saliva-B.Bif-S.Therm (Acidophilus Probiotic Blend) 175 mg capsule Discontinued 1 NMA PO DAILY July 15, 2022 1:00am August 21, 2022 11:53am Start: 07-15-2022 End: 08-21-2022 take 1 capsule by mouth once daily L.Acidoph,Saliva-B.Bif-S.Therm (Acidophi mason Probiotic Blend) 175 mg capsule Discontinued 1 NMA PO DAILY July 15, 2022 1:00am August 21, 2022 11:53am Start: 07-15-2022 End: 08-21-2022 take 1 capsule by mouth once daily L.Acidoph,Saliva-B.Bif-S.Therm (Acidophi mason Probiotic Blend) 175 mg capsule Discontinued 1 CAP PO DAILY July 15, 2022 12:00am August 21, 2022 10:53am Start: 07-15-2022 End: 08-21-2022 take 1 capsule by mouth once daily L.Acidoph,Saliva-B.Bif-S.Therm (Acidophi mason Probiotic Blend) 175 mg capsule Discontinued 1 CAP PO DAILY July 15, 2022 1:00am August 21, 2022 11:53am Start: 07-15-2022 take 1 capsule by mouth once daily L.Acidoph,Saliva-B.Bif-S.Therm (Acidophi mason Probiotic Blend) 175 mg capsule Active 1 CAP PO DAILY July 15, 2022 12:00am Fesdldlzbc-Lkuasieblspg-Xrce in 100-500-50 mg capsule (14 sources) Start: 06-08-2022 End: 03-28-2024 take 1 capsule by mouth once daily Lbvoznpvne-Augffdknijxs-Jevwss 100-500-50 mg capsule Discontinued 1 NMA PO DAILY June 08, 2022 1:00am March 28, 2024 10:15am Lactobacillus Combination No .4 (Probiotic) 3 billion cell capsule (20 sources) Start: 11-28-2019 End: 05-01-2020 take 3 capsules by mouth once daily Lactobacillus Combination No.4 (Probiotic) 3 billion cell capsule Discontinued 3000 NMA PO DAILY November 28, 2019 12:00am May 01, 2020 4:07pm administer with a meal Start: 11-28-2019 End: 05-01-2020 take 3 capsules by mouth once daily Lactobacillus Combination No.4 (Probiotic) 3 billion cell capsule Discontinued 3000 MMU CELLS PO DAILY November 27, 2019 11:00pm May 01, 2020 3:07pm administer with a meal Start: 11-28-2019 End: 05-01-2020 take 3 capsules by mouth once daily Lactobacillus Combination No.4 (Probiotic) 3 billion cell capsule Discontinued 3000 MMU CELLS PO DAILY November 28, 2019 12:00am May 01, 2020 4:07pm administer with a meal levETIRAcetam 500 mg oral tablet (12 sources) Anti-epileptic Agent Start: 10-19-2012 End: 10-26-2012 take 1 tablet by mouth twice daily KEPPRA 500 MG TABS One tablet by mouth twice daily LEVETIRACETAM [id number] Dustin Lemus MD liothyronine sodium 0.005 mg oral tablet (20 sources) l-Triiodothyronine Start: 05-06-2022 End: 03-28-2024 Liothyronine 5 mcg tablet Discontinued 5 ug PO SUMOWEMay 06, 2022 1:00am March 28, 2024 10:14am thyroid loratadine 10 mg oral capsule (20 sources) Start: 05-27-2017 End: 03-08-2018 take 1 capsule by mouth once daily Loratadine 10 MG capsule Discontinued 10 mg PO DAILY May 27, 2017 1:00am March 08, 2018 10:20am ALLERGIES Start: 10-19-2012 take 1 tablet by augusto th once daily as needed LORATADINE 10 MG TABS One tablet by mouth daily as needed LORATADINE [id number] Teresa Boggs DO LORazepam 1 mg oral tablet (1 source) Benzodiazepine Start: 08-29-2007 End: 07-18-2010 lorazepam(ATIVAN 1 MG TAB) Indications: Anxiety state, unspecified Take one(1) tablet two(2) times daily. 60 3 08/29/2007 07/18/2010 Discontinued Comment on above: Take one(1) tablet t wo(2) times daily. Magnesium (20 sources) Start: 05-27-2017 End: 05-01-2020 Magnesium 250 MG tablet Discontinued 400 mg PO DAILY May 27, 2017 1:00am May 01, 2020 4:08pm SUPPLEMENT Start: 05-27-2017 End: 05-01-2020 Magnesium 250 MG tablet Disc ontinued 400 mg PO DAILY May 27, 2017 1:00am May 01, 2020 4:08pm Start: 05-27-2017 End: 05-01-2020 take 400 mg by mouth once daily Magnesium Discontinued 400 MG PO DAILY May 27, 2017 12:00am May 01, 2020 3:08pm Start: 05-27-2017 End: 05-01-2020 take 400 mg by mouth once daily Magnesium Discontinued 400 MG PO DAILY May 27, 2017 1:00am May 01, 2020 4:08pm magnesium oxide 400 mg oral capsule (20 sources) Start: 05-01-2020 End: 03-28-2024 take 1 capsule by mouth once daily Magnesium Oxide 400 mg magnesium capsule Discontinued 400 mg PO DAILY May 01, 2020 1:00am March 28, 2024 10:14am methylPREDNISolone 4 mg oral tablet (20 sources) Corticosteroid Start: 08-09-2017 End: 03-08-2018 Methylprednisolone 4 MG tablet Discontinued 4 mg PO DIRECTED 1 0 August 09, 2017 1:00am March 08, 2018 10:20am metoprolol tartrate 25 mg oral tablet (20 sources) beta-Adrenergic Jocelynn Start: 03-28-2024 End: 11-23-2024 take 1 tablet by mouth twice daily Metoprolol Tartrate 25 mg tablet Discontinued 25 mg PO TWICE A DAY 180 3 November 22, 2024 9:42am November 23, 2024 8:51am Start: 03-28-2024 End: 03-28-2024 Metoprolol Tartrate 50 mg ta blet Discontinued 25 mg PO TWICE A DAY March 28, 2024 10:14am March 28, 2024 10:41am Start: 01-06-2024 End: 03-28-2024 take 1 tablet by mouth twice daily Metoprolol Tartrate 50 mg tablet Discontinued 50 mg PO TWICE A DAY January 06, 2024 11:22am March 28, 2024 10:15am Start: 08-17-2023 End: 01-06-2024 Metoprolol Tartrate 50 mg ta blet Discontinued 75 mg PO TWICE A DAY 180 October 25, 2023 9:03am January 06, 2024 11:24am Start: 08-17-2023 take 75 mg by mouth twice thom y Metoprolol Tartrate Active 75 MG PO TWICE A DAY 180 August 17, 2023 2:59pm Start: 01-10-2018 End: 08-17-2023 take 1 tablet by mouth twice daily Metoprolol Tartrate 50 mg tablet Discontinued 50 mg PO TWICE A DAY 180 December 04, 2022 10:30am August 17, 2023 2:59pm Start: 02-03-2014 End: 01-10-2018 Metoprolol Tartrate 100 MG t ablet Discontinued 50 mg PO TWICE A DAY February 03, 2014 12:00am January 10, 2018 10:01am BLOOD PRESSURE/HEART Start: 02-03-2014 End: 01-10-2018 take 50 mg by mouth twice daily Metoprolol Tartrate Di scontinued 50 MG PO TWICE A DAY February 03, 2014 12:00am January 10, 2018 10:01am Start: 10-19-2012 take 1 tablet by augusto th twice daily METOPROLOL TARTRATE 100 MG TABS One tablet by mouth twice daily METOPROLOL TARTRATE [id number] Teresa Boggs DO Start: 10-19-2012 take 1 tablet by augusto th twice daily METOPROLOL TARTRATE 50 MG TABS One tablet by mouth twice daily METOPROLOL TARTRATE [id number] Dustin Lemus MD mirtazapine 15 mg oral tablet (12 sources) Start: 10-26-2012 End: 02-28-2014 take 1 tablet by mouth once daily REMERON 15 MG TABS One tablet by mouth daily MIRTAZAPINE [id number] Dustin Lemus MD MULTIPLE VITAMIN (4 sources) Start: 10-19-2012 take 1 tablet by mouth once daily MULTIVITAMINS TABS One tablet by mouth daily MULTIPLE VITAMIN [id number] Teresa Boggs DO Start: 10-19-2012 take 1 tablet by augusto th once daily MULTIVITAMINS TABS One tablet by mouth daily MULTIPLE VITAMIN [id number] Lilly A Nathaly RN MULTIPLE VITAMIN (8 sources) Start: 10-19-2012 take 1 tablet by mouth once daily MULTIVITAMINS TABS One tablet by mouth daily MULTIPLE VITAMIN [id number] Teresa Contreras Chrisrenée Start: 10-19-2012 take 1 tablet by augusto th once daily MULTIVITAMINS TABS One tablet by mouth daily MULTIPLE VITAMIN [id number] Lilly Andersen RN multivitamin ORAL Tab (1 source) Start: 03-08-2007 take 1 tablet by mouth once daily multivitamin ORAL Tab Take one(1) tablet daily. 0 03/08/2007 Active Comment on above: Take one(1) tablet d aily. Multivitamin With Folic Acid 1 TABLET tablet (14 sources) Start: 02-03-2014 End: 03-28-2024 take 1 tablet by mouth once daily Multivitamin With Folic Acid 1 TABLET tablet Discontinued 1 {tbl} PO DAILY February 03, 2014 12:00am March 28, 2024 10:15am SUPPLEMENT Start: 02-03-2014 End: 03-28-2024 take 1 tablet by mouth once daily Multivitamin With Folic Acid 1 TABLET tablet Discontinued 1 {tbl} PO DAILY February 03, 2014 12:00am March 28, 2024 10:15am nitrofurantoin, macrocrystals 25 mg / nitrofurantoin, monohydrate 75 mg oral capsule (12 sources) Nitrofuran Antibacterial Start: 03-12-2014 End: 12-11-2014 take 1 tablet by mouth twice daily NITROFURANTOIN MACROCRYSTAL 100 MG CAPS One tablet by mouth twice daily NITROFURANTOIN MACROCRYSTAL [id number] Sun Ritchie MD 24 hr nitroglycerin 0.6 mg/hr transdermal system (20 sources) Nitrate Vasodilator Start: 05-02-2024 End: 05-02-2024 apply 1 dose transdermal route every twelve hours, then apply 1 dose transdermal route once 1 patch, TransDERmal, Administer over 12 Hours, Once, On Wed05/02/24 at 0930, For 1 dose Start: 05-02-2024 End: 05-04-2024 0.4 mg, SubLINGual, Every 5 min PRN, chest pain, Starting on Wed05/02/24 at 0206, Give every 5 minutes as needed for chest pain to a maximum of 3 doses. Notify MD and obtain EKG if no relief after 3 doses or chest pain recurs. HOLD and notify MD if SBP less than 90 mmHg. Do not give if nitroglycerin infusion running concurrently. Do not give within 24 hours of sildenafil citrate (Viagra) or vardenafil (Levitra) use, or within 48 hours of tadalafil (Cialis) use. Start: 03-30-2023 Nitroglycerin 0.4 mg tablet, sublingual Active 0 .ROUTE .COMPLEX 20 12March 30, 2023 1:49pm DISSOLVE 1 TABLET UNDER THE TONGUE EVERY 5-15 MINUTES NEEDED FOR CHEST PAIN Start: 07-24-2014 End: 03-30-2023 Nitroglycerin 0.4 mg tablet, sublingual Discontinued 0.4 mg SL every 5 to 15 minutes as needed for Chest Pain 20 12July 02, 2021 4:25pm March 30, 2023 1:49pm nystatin 100 unt/mg topical powder (20 sources) Polyene Antifungal Start: 07-24-2014 End: 12-11-2014 NYSTATIN [id number] UNIT/ML SUSP 5ml lao and swallow 4 times daily NYSTATIN [id number] Sun Ritchie MD Start: 07-24-2014 End: 12-11-2014 NYSTATIN [id number] UNIT/GM POWD apply to affected area 4 times daily NYSTATIN [id number] Sun Ritchie MD Start: 07-24-2014 End: 12-11-2014 NYSTATIN [id number] UNIT/GM POWD apply to affected area 4 times daily NYSTATIN [id number] Teresa Boggs, DO [place]-3 Fatty Acids 500 MG capsule (14 sources) Start: 10-20-2015 End: 12-15-2024 take 1 capsule by mouth once daily [place]-3 Fatty Acids 500 MG capsule Discontinued 1500 mg PO DAILY October 20, 2015 12:00am December 15, 2024 9:02am SUPPLEMENT Start: 10-20-2015 End: 12-15-2024 take 1 capsule by mouth once daily [place]-3 Fatty Acids 500 MG capsule Discontinued 1500 mg PO DAILY October 20, 2015 12:00am December 15, 2024 9:02am Start: 10-20-2015 take 1 capsule by [facility] once daily [place]-3 Fatty Acids 500 MG capsule Active 1500 mg PO DAILY October 20, 2015 12:00am omeprazole 20 mg delayed release oral capsule (20 sources) Proton Pump Inhibitor Start: 11-03-2019 End: 01-12-2022 take 2 capsules by mouth twice daily Omeprazole 20 mg capsule,delayed release(DR/EC) Discontinued 40 mg PO TWICE A DAY November 28, 2019 12:00am January 12, 2022 9:21am Start: 11-03-2019 End: 01-12-2022 take 40 mg by mouth twice daily Omeprazole Discontinued 40 MG PO TWICE A DAY November 28, 2019 12:00am January 12, 2022 9:21am ondansetron ODT (Zofran-ODT) disintegrating tablet 4 mg (2 sources) Start: 05-02-2024 End: 05-04-2024 take 1 tablet by mouth every eight hours as needed for nausea and vomiting ondansetron ODT (Zofran-ODT) disintegrating tablet 4 mg pantoprazole 20 mg delayed release oral tablet (20 sources) Proton Pump Inhibitor Start: 05-04-2024 End: 05-04-2025 take 1 tablet by mouth once daily Pantoprazole 20 mg tablet,delayed release (DR/EC) Discontinued 20 mg PO daily 90 3 December 18, 2024 4:24pm December 19, 2024 7:53am Start: 05-02-2024 End: 05-04-2024 pantoprazole (ProtoNix) EC t ablet 20 mg perflutren protein A microsphere (Optison) 3 mL in sodium chloride (PF) 0.9 % 10 mL IV syringe (2 sources) Start: 05-02-2024 End: 05-04-2024 0-10 mL, IntraVENous, IMG once PRN, other, Suboptimal echo image, Starting on Wed05/02/24 at 0815, For 1 dose, CV Procedural Medications, Administer via slow IVP for suboptimal echocardiogram enhancement. May administer as divided doses to reach optimal image enhancement Phenylephrine HCl (Pressors) 1 MG/10ML injection - Pyxis ADS Override Pull (2 sources) Start: 05-02-2024 End: 05-02-2024 Starting on Wed05/02/24 at 1726, For 1 dose, Mckeon, Rox: cabinet override Phenylephrine HCl (Pressors) 1 MG/10ML injection 0.2 mg (2 sources) Start: 05-02-2024 End: 05-04-2024 0.2 mg, IntraVENous, Every 5 min PRN, for hypotension, Starting on Wed05/02/24 at 1726, For 3 doses, Provider to be at bedside or actively in route to bedside. polyethylene glycol 3350 84445 mg powder for oral solution (2 sources) Osmotic Laxative Start: 05-02-2024 End: 05-04-2024 take 17 g by mouth every twenty-four hours as needed for constipation 17 g, Oral, Daily PRN, constipation, Starting on Wed05/02/24 at 0204, 1st line for treatment of constipation - give scheduled if no bowel movement in past 24 hours. potassium chloride 20 meq powder for oral solution (2 sources) Start: 05-02-2024 End: 05-02-2024 take 1 [oz_av] by mouth once 40 mEq, Oral, Once, On Wed05/02/24 at 2145, For 1 dose, Dissolve each packet in 4 ounces of water = 5 mEq per 1 oz fluid., Indications: Hypokalemia pravastatin sodium 80 mg oral tablet (20 sources) HMG-CoA Reductase Inhibitor Start: 10-19-2012 End: 05-10-2024 take 1 tablet by mouth at bedtime Pravastatin 80 mg tablet Discontinued 80 mg PO AT BEDTIME 90 3 January 17, 2024 9:37am March 28, 2024 10:41am CHOLESTEROL predniSONE 20 mg oral tablet (20 sources) Corticosteroid Start: 05-14-2021 End: 07-07-2021 take 2 tablets by mouth once daily Prednisone 20 mg tablet Discontinued 40 mg PO DAILY 8 4 May 14, 2021 1:00am July 07, 2021 11:05am Start: 05-14-2021 End: 07-07-2021 take 40 mg by mouth once daily Prednisone Discontinued 40 MG PO DAILY 8 May 14, 2021 1:00am July 07, 2021 11:05am Start: 10-18-2015 End: 11-06-2015 take 3 tablets by mouth once daily PREDNISONE 20 MG TABS 3 po daily x 5 days PREDNISONE [id number] Lilly Andersen RN QUETIAPINE FUMARATE (12 sources) Atypical Antipsychotic Start: 10-19-2012 End: 10-26-2012 take 1 tablet by mouth once daily at bedtime SEROQUEL XR 50 MG [id number] One tablet by mouth daily at bedtime QUETIAPINE FUMARATE [id number] Lilly Andersen RN Start: 10-19-2012 End: 10-26-2012 take 1 tablet by mouth once daily at bedtime SEROQUEL XR 50 MG [id number] One tablet by mouth daily at bedtime QUETIAPINE FUMARATE [id number] Dustin Lemus MD Start: 10-19-2012 take 1 tablet by augusto th once daily at bedtime SEROQUEL XR 50 MG [id number] One tablet by mouth daily at bedtime QUETIAPINE FUMARATE [id number] Lilly Andersen RN raNITIdine (12 sources) Histamine-2 Receptor Antagonist Start: 07-24-2014 take 1 tablet by mouth once daily GNP ACID CONTROL [address] 150 MG TABS One tablet by mouth daily RANITIDINE HCL [id number] Teresa Boggs DO Start: 07-24-2014 take 1 tablet by augusto th once daily GNP ACID CONTROL [address] 150 MG TABS One tablet by mouth daily RANITIDINE HCL [id number] Teresa Boggs DO rosuvastatin calcium 40 mg oral tablet (20 sources) HMG-CoA Reductase Inhibitor Start: 05-04-2024 End: 05-04-2025 take 1 tablet by mouth once daily Rosuvastatin (Crestor) 40 mg tablet Discontinued 40 mg PO daily 90 December 18, 2024 4:24pm December 19, 2024 7:53am Start: 05-02-2024 End: 05-04-2024 take 40 mg by mouth once daily 40 mg, Oral, Nightly, F irst dose on Wed05/02/24 at 2100 spironolactone 25 mg oral tablet (20 sources) Aldosterone Antagonist Start: 11-23-2019 End: 11-23-2024 take 1 tablet by mouth once daily Spironolactone (Aldactone) 25 mg tablet Discontinued 25 mg PO DAILY 90 November 22, 2024 9:41am November 23, 2024 8:50am ticagrelor 90 mg oral tablet (20 sources) Start: 05-02-2024 End: 05-02-2025 take 1 tablet by mouth twice daily Ticagrelor (Brilinta) 90 mg tablet Discontinued 90 mg PO TWICE A DAY 180 3 January 10, 2025 7:48am January 19, 2025 8:27am traZODone hydrochloride 50 mg oral tablet (12 sources) Serotonin Reuptake Inhibitor Start: 10-19-2012 End: 10-26-2012 take 1 tablet by mouth once daily TRAZODONE HCL 50 MG TABS One tablet by mouth daily TRAZODONE HCL [id number] Dustin Lemus MD valACYclovir 1000 mg oral tablet (12 sources) Herpesvirus Nucleoside Analog DNA Polymerase Inhibitor, Herpes Simplex Virus Nucleoside Analog DNA Polymerase Inhibitor, Herpes Zoster Virus Nucleoside Analog DNA Polymerase Inhibitor Start: 10-18-2015 End: 11-06-2015 take 1 tablet by mouth three times daily VALACYCLOVIR HCL 1 GM TABS 1 po Three times a day x 7 days VALACYCLOVIR HCL [id number] Teresa Boggs, DO Problems Active Problems Problem Classification Problem Date Documented Date Episodic/Chronic Acute bronchitis (20 sources) Acute bronchitis; Translations: [Acute bronchitis, unspecified] 12-31-2023 Episodic Acute myocardial infarction (6 sources) Non-ST elevation (NSTEMI) myocardial infarction; Translations: [Non-ST elevation (NSTEMI) myocardial infarction] Onset: 11-15-2015 11-15-2015 Chronic Allergic reactions (20 sources) Allergic reaction; Translations: [Allergy, unspecified, initial encounter] 06-08-2022 Episodic Anxiety disorders (20 sources) Anxiety state; Translations: [Generalized anxiety disorder] Onset: 03-08-2007 Chronic Cancer of head and neck (6 sources) Basal cell carcinoma of neck; Translations: [Basal cell carcinoma of skin of scalp and neck] Onset: 04-15-2016 05-10-2016 Chronic Complication of device; implant or graft (20 sources) Pain; Translations: [Pain due to internal orthopedic prosthetic devices, implants and grafts, initial encounter] 02-19-2018 Episodic Congestive heart failure; nonhypertensive (20 sources) Chronic diastolic heart failure; Translations: [Chronic diastolic (congestive) heart failure] Onset: 06-07-2024 Chronic Coronary atherosclerosis and other heart disease (20 sources) Coronary atherosclerosis; Translations: [Coronary arteriosclerosis] Onset: 10-19-2012 11-06-2015 Chronic Disorders of lipid metabolism (20 sources) Hyperlipidemia; Translations: [Hyperlipidemia, unspecified] Onset: 10-19-2012 10-19-2012 Chronic Esophageal disorders (7 sources) Gastroesophageal reflux disease; Translations: [Gastro-esophageal reflux disease without esophagitis] Onset: 06-28-2004 05-24-2013 Chronic Essential hypertension (20 sources) Hypertensive disorder; Translations: [Benign essential hypertension] Onset: 03-08-2007 10-19-2012 Chronic Genitourinary symptoms and ill-defined conditions (20 sources) Abnormal urinalysis; Translations: [Increased frequency of urination] Onset: 07-25-2013 Resolved: 11-06-2015 11-06-2015 Episodic Influenza (20 sources) Influenza due to Influenza A virus; Translations: [Influenza due to other identified influenza virus with other respiratory manifestations] 02-19-2018 Episodic Malaise and fatigue (20 sources) Malaise and fatigue; Translations: [Fatigue] Onset: 02-06-2015 02-06-2015 Episodic Menopausal disorders (15 sources) Atrophy of vagina; Translations: [Postmenopausal atrophic vaginitis] Onset: 04-06-2024 02-02-2024 Chronic Mood disorders (2 sources) Depressive disorder; Translations: [Major depressive disorder, single episode, unspecified] Onset: 03-08-2007 Chronic Neoplasms of unspecified nature or uncertain behavior (20 sources) Neoplasm of skin; Translations: [Neoplasm of skin of back] Onset: 04-15-2016 05-10-2016 Episodic Comment on above: D49.26 mm lesion lef t middle medial back Nonspecific chest pain (20 sources) Chest discomfort; Translations: [Chest pain] Onset: 10-19-2012 Resolved: 11-06-2015 11-06-2015 Episodic Osteoarthritis (20 sources) Osteoarthritis; Translations: [Bilateral osteoarthritis of knees] 05-24-2013 Chronic Other aftercare (1 source) Encounter for therapeutic drug level monitoring; Translations: [Encounter for therapeutic drug level monitoring] Onset: 01-09-2025 Episodic Other circulatory disease (20 sources) Carotid bruit; Translations: [Cardiovascular stress test abnormal] Onset: 10-19-2012 Resolved: 11-06-2015 10-19-2012 Episodic Other circulatory disease (20 sources) Orthostatic hypotension; Translations: [Orthostatic hypotension] 02-19-2018 Episodic Other congenital anomalies (14 sources) Herniated urinary bladder 02-02-2024 Chronic Comment on above: mild in nature Other connective tissue disease (2 sources) Muscle pain; Translations: [Myalgia and myositis, unspecified] Onset: 05-28-2007 Episodic Other connective tissue disease (20 sources) Impingement syndrome of shoulder region; Translations: [Impingement syndrome of right shoulder] 07-07-2021 Episodic Other connective tissue disease (20 sources) Foot pain; Translations: [Pain in right foot] 02-19-2018 Episodic Other lower respiratory disease (20 sources) Dyspnea on exertion; Translations: [Other forms of dyspnea] 01-07-2023 Episodic Other lower respiratory disease (1 source) Other forms of dyspnea; Translations: [Other respiratory abnormalities] 01-07-2023 Episodic Other lower respiratory disease (20 sources) Dyspnea; Translations: [Shortness of breath] 10-18-2024 Episodic Other lower respiratory disease (2 sources) Shortness of breath; Translations: [Shortness of breath] Onset: 01-15-2025 Episodic Other nervous system disorders (20 sources) Acute postoperative pain; Translations: [Other acute postprocedural pain] 07-15-2022 Episodic Other non-epithelial cancer of skin (20 sources) Basal cell carcinoma of postauricular skin; Translations: [Basal cell carcinoma of skin of left ear and external auricular canal] 07-15-2022 Episodic Comment on above: 1.1 cm scabby erythe matous basal cell carcinoma left postauricular area with extension to the posterior ear had basal cell carci noma right neck excised in May, Other non-traumatic joint disorders (1 source) Arthropathy; Translations: [Arthropathy, unspecified] Onset: 05-28-2007 05-28-2007 Chronic Other non-traumatic joint disorders (20 sources) Pain in left knee; Translations: [Left knee pain] 05-06-2022 Episodic Other nutritional; endocrine; and metabolic disorders (15 [...] 31.0-31.9, adult] Onset: 03-14-2015 02-02-2017 Chronic Other screening for suspected conditions (not mental disorders or infectious disease) (20 sources) Cardiovascular stress test abnormal; Translations: [Ultrasonography of breast abnormal] Onset: 03-23-2013 Resolved: 11-06-2015 03-23-2013 Episodic Other upper respiratory disease (6 sources) Seasonal allergy; Translations: [Other seasonal allergic rhinitis] Onset: 02-28-2014 02-28-2014 Chronic Residual codes; unclassified (20 sources) Obstructive sleep apnea syndrome; Translations: [Obstructive sleep apnea (adult) (pediatric)] 06-08-2022 Chronic Residual codes; unclassified (1 source) Obstructive sleep apnea (adult) (pediatric); Translations: [Obstructive sleep apnea (adult) (pediatric)] Onset: 09-13-2024 Chronic Rheumatoid arthritis and related disease (12 sources) Rheumatoid arthritis; Translations: [Rheumatoid arthritis, unspecified] Onset: 06-28-1997 Resolved: 02-28-2014 02-28-2014 Chronic Screening or history of mental health and substance abuse (20 sources) Ex-smoker; Translations: [Personal history of nicotine dependence] Onset: 04-15-2016 05-10-2016 Episodic Comment on above: QUIT 1997 Z87.891 Spondylosis; intervertebral disc disorders; other back problems (20 sources) Degeneration of cervical intervertebral disc; Translations: [Other cervical disc degeneration, unspecified cervical region] 07-07-2021 Chronic Spondylosis; intervertebral disc disorders; other back problems (20 sources) Low back pain; Translations: [Low back pain] 05-06-2022 Episodic Thyroid disorders (10 sources) Hypothyroidism; Translations: [Hypothyroidism, unspecified] Onset: 06-28-1984 [...] of drug or medicament] Onset: 07-24-2014 07-24-2014 Unclassified (1 source) I25.119 - Atherosclerotic heart disease of [place] coronary artery with unspecified angina pectoris,I50.32 - Chronic diastolic (congestive) heart failure,Z95.5 - Presence of coronary angioplasty implant and graft Unclassified (1 source) Cough, unspecified; Translations: [Cough, unspecified] Onset: 07-20-2024 Past or Other Problems Problem Classification Problem Date Documented Da te Episodic/Chronic Acute cerebrovascular disease (20 sources) Acute cerebrovascular disease 02-19-2018 Asthma (6 sources) Reactive airways dysfunction syndrome; Translations: [Other asthma] Onset: 09-10-2015 Resolved: 10-10-2015 09-30-2015 Chronic Coronary atherosclerosis and other heart disease (20 sources) Presence of aortocoronary bypass graft; Translations: [Aortocoronary bypass status] Onset: 10-21-2007 10-19-2012 Episodic Diabetes mellitus without complication (4 sources) Hyperglycemia; Translations: [Hyperglycemia, unspecified] Onset: 06-11-2015 06-11-2015 Episodic Fracture of upper limb (1 source) Closed fracture of proximal humerus, anatomical neck; Translations: [Other displaced fracture of upper end of unspecified humerus, initial encounter for closed fracture] Onset: 12-30-2012 12-30-2012 Episodic Other aftercare (10 sources) Other intermediate designer (current) drug therapy; Translations: [Long-term (current) use of other medications] Onset: 10-31-2012 Resolved: 02-06-2015 02-06-2015 Episodic Other circulatory disease (4 sources) Femoral bruit; Translations: [Other specified symptoms and signs involving the circulatory and respiratory systems] Onset: 10-31-2015 10-31-2015 Episodic Other circulatory disease (1 source) Other specified symptoms and signs involving the circulatory and respiratory systems; Translations: [Other specified symptoms and signs involving the circulatory and respiratory systems] Onset: 09-13-2024 Episodic Other connective tissue disease (1 source) [...] of feces] Onset: 07-18-2010 07-18-2010 Episodic Other liver diseases (1 source) Abnormal levels of other serum enzymes; Translations: [Abnormal levels of other serum enzymes] Onset: 04-06-2024 Episodic Other nervous system disorders (1 source) Incoordination; Translations: [Unspecified lack of coordination] Onset: 06-17-2011 06-17-2011 Episodic Other skin disorders (6 sources) Senile hyperkeratosis; Translations: [Other seborrheic keratosis] Onset: 06-24-2016 06-29-2016 Episodic Other upper respiratory infections (1 source) Acute sinusitis, unspecified; Translations: [Acute sinusitis, unspecified] Onset: 07-20-2024 Episodic Residual codes; unclassified (12 sources) FH: Raised blood lipids; Translations: [Family history of other endocrine, nutritional and metabolic diseases] Resolved: 02-06-2015 02-06-2015 Episodic Syncope (12 sources) Syncope and collapse; [...] Results Test Name Value Interpretation Reference Range Facility Echo Complete W/ Contraston 01-18-2025 Echo Complete W/ Contrast [facility] Cardiovascular Services [address] [place] [address] Echo Complete W/ Contrast 01/18/25 1304 MR#: [id number] Acct: [id number] Name: NISSA TROTTER Rep #: [id number] : 1955 69 From: Dustin Lemus MD Attending Dr: Carly Colin NP Status: REG CL I Ordering Dr: Carly Colin TRAILER DRIVER-C Date: 01/18/25 Location: [facility] Sex: F C Admitted: Reason For Study : SOB Procedure This was a 2D Doppler, Color Flow transthoracic echocardiogram. Contrast injection was performed. Exam performed in department. Left Ventricle Normal LV size. The left ventricular ejection fraction is 55 %. Stage 1 diastolic dysfunction. Segmental dysfunction with preserved ejection fraction (see wall motion). Eight[place] : Akinetic. Right Ventricle Normal RV size. Normal systolic function. Atria Normal left atrium. Normal right atrium. Mitral Valve Normal mitral valve. Mild (1+) eccentric mitral valve insufficiency. Tricuspid Valve Normal tricuspid valve. Moderate (2+) tricuspid valve insufficiency. Pulmonary artery systolic pressure is 32 mmHg. Aortic Valve Trisinus/trileaflet aortic valve. Normal aortic valve. Pulmonic Valve Normal pulmonic valve. Great Vessels Normal aortic root. The pulmonary artery is normal size. Inferior vena cava collapse with respiration. Pericardium/Pleural No pericardial effusion. Medication 22 gauge I.V. with prn adaptor inserted into right arm. Diluted definity 2ml given slow IV push to enhance endocardial definition. MMode/2D Measurements Calculations LVIDd: 5.1 cm IVSd: 0.99 cm Ao root diam: 3.1 cm LVIDs: 3.3 cm LVPWd: 1.0 cm RVDd: 4.5 cm FS: 34.3 % LAV(MOD-bp): 65.5 ml LVAd ap4: 30.1 cm2 SV(MOD-sp4): 58.2 ml LAV(MOD-bp) Indexed: 38.7 ml/m2 LVLd ap4: 7.4 cm SI(MOD-sp4): 34.4 ml/m2 LAV(MOD-sp2): 54.3 ml EDV(MOD-sp4): 99.9 ml LAV(MOD-sp4): 63.8 ml EDV(sp4-el): 103.7 ml LVAs ap4: 19.6 cm2 LVLs ap4: 7.5 cm ESV(MOD-sp4): 41.7 ml ESV(sp4-el): 43.4 ml EF(MOD-sp4): 58.2 % EF(sp4-el): 58.2 % SV(sp4-el): 60.3 ml LA A4 area: 21.9 cm2 LA dimension(2D): 3.9 cm RA A4 area: 20.8 cm2 TAPSE: 1.6 cm Time Measurements MV dec time: 0.30 sec Doppler Measurements Calculations MV E max genoveva: 58.9 cm/sec Lat Peak E' Genoveva: 11.5 cm/sec Med Peak E' Genoveva: 9.4 cm/sec MV A max genoveva: 65.4 cm/sec E/E' lat: 5.1 E/E' med: 6.3 MV E/A: 0.90 MV V2 max: 79.3 cm/sec MV P1/2t max genoveva: 75.0 cm/sec Ao V2 max: 113.1 cm/sec MV max P.5 mmHg MV P1/2t: 99.1 msec Ao max P.1 mmHg MV V2 mean: 43.1 cm/sec MV dec slope: 221.4 cm/sec2 Ao V2 mean: 73.4 cm/sec MV mean P.87 mmHg MVA(P1/2t): 2.2 cm2 Ao mean P.5 mmHg MV V2 VTI: 28.0 cm Ao V2 VTI: 31.1 cm AV (velocity ratio): 0.74 LV V1 max: 87.4 cm/sec MR max genoveva: 626.8 cm/sec TR max genoveva: 267.3 cm/sec LV V1 max P.1 mmHg MR max P.1 mmHg TR max P.6 mmHg LV V1 mean P.6 mmHg MR mean genoveva: 432.1 cm/sec LV V1 mean: 57.6 cm/sec MR mean P.1 mmHg LV V1 VTI: 22.9 cm MR VTI: 226.1 cm ECHO/Echo Complete W/ Contrast Interpretation Summary The left ventricular ejection fraction is 55 %. Normal LV size. Stage 1 diastolic dysfunction. [place] : Akinetic. Mild (1+) eccentric mitral valve insufficiency. Moderate (2+) tricuspid valve insufficiency. Cannot completely exclude apical thrombus small Ordering Physician: Carly Colin Referring Physician: Teresa Boggs Performed By: Ruslan Perez RCS 01/18/25 1656 Date Dustin Lemus MD CC: Dr. Teresa Boggs, DO; Carly Colin NP Date Dictated: 01/18/25 1304 Date Transcribed: 01/18/25 1647 Hay Buckler: Signed Normal [facility] Echocardiogram study reportO rdered By: Dustin Lemus on 01-18-2025 Study report [facility] Cardiovascular Services [address] [place] [address] Echo Complete W/ Contrast 01/18/25 1304 MR#: [id number] Acct: [id number] Name: NISSA TROTTER Rep #:[id number] : 1955 69 From: Dustin Noble Attending Dr: SHYAM Lerma atus: REG CLI Ordering Dr: Carly Colin NP-C Rey e: 01/18/25 Location: [facility] Sex: F C Admitted: Reason For Study : SOB Procedure This was a 2D Doppler, Color Flow transthoracic echocardiogram. Contrast injection was performed. Exam performed in department. Left Ventricle Normal LV size. The left ventricular ejection fraction is 55 %. Stage 1 diastolic dysfunction. Segmental dysfunction with preserved ejection fraction (see wall motion). [place] : Akinetic. Right Ventricle Normal RV size. Normal systolic function. Atria Normal left atrium. Normal right atrium. Mitral Valve Normal mitral valve. Mild (1+) eccentric mitral valve insufficiency. Tricuspid Valve Normal tricuspid valve. Moderate (2+) tricuspid valve insufficiency. Pulmonary artery systolic pressure is 32 mmHg. Aortic Valve Trisinus/trileaflet aortic valve. Normal aortic valve. Pulmonic Valve Normal pulmonic valve. Great Vessels Normal aortic root. The pulmonary artery is normal size. Inferior vena cava collapse with respiration. Pericardium/Pleural No pericardial effusion. Medication 22 gauge I.V. with prn adaptor inserted into right arm. Diluted definity 2ml given slow IV push to enhance endocardial definition. MMode/2D Measurements & Calculations LVIDd: 5.1 cm IVSd: 0.99 cm Ao root diam: 3.1 cm LVIDs: 3.3 cm LVPWd: 1.0 cm RVDd: 4.5 cm FS: 34.3 % LAV(MOD-bp): 65.5 ml LVAd ap4: 30.1 cm2 SV(MOD-sp4): 58.2 ml LAV(MOD-bp) Indexed: 38.7 ml/m2 LVLd ap4: 7.4 cm SI(MOD-sp4): 34.4 ml/m2 LAV(MOD-sp2): 54.3 ml EDV(MOD-sp4): 99.9 ml LAV(MOD-sp4): 63.8 ml EDV(sp4-el): 103.7 ml LVAs ap4: 19.6 cm2 LVLs ap4: 7.5 cm ESV(MOD-sp4): 41.7 ml ESV(sp4-el): 43.4 ml EF(MOD-sp4): 58.2 % EF(sp4-el): 58.2 % SV(sp4-el): 60.3 ml LA A4 area: 21.9 cm2 LA dimension(2D): 3.9 cm RA A4 area: 20.8 cm2 TAPSE: 1.6 cm Time Measurements MV dec time: 0.30 sec Doppler Measurements & Calculations MV E max genoveva: 58.9 cm/sec Lat Peak E' Genoveva: 11.5 cm/sec Med Peak E' Genoveva: 9.4 cm/sec MV A max genoveva: 65.4 cm/sec E/E' lat: 5.1 E/E' med: 6.3 MV E/A: 0.90 MV V2 max: 79.3 cm/sec MV P1/2t max genoveva: 75.0 cm/sec Ao V2 max: 113.1 cm/sec MV max P.5 mmHg MV P1/2t: 99.1 msec Ao max P.1 mmHg MV V2 mean: 43.1 cm/sec MV dec slope: 221.4 cm/sec2 Ao V2 mean: 73.4 cm/sec MV mean P.87 mmHg MVA(P1/2t): 2.2 cm2 Ao mean P.5 mmHg MV V2 VTI: 28.0 cm Ao V2 VTI: 31.1 cm AV (velocity ratio): 0.74 LV V1 max: 87.4 cm/sec MR max genoveva: 626.8 cm/sec TR max genoveva: 267.3 cm/sec LV V1 max P.1 mmHg MR max P.1 mmHg TR max P.6 mmHg LV V1 mean P.6 mmHg MR mean genoveva: 432.1 cm/sec LV V1 mean: 57.6 cm/sec MR mean P.1 mmHg LV V1 VTI: 22.9 cm MR VTI: 226.1 cm ECHO/Echo Complete W/ Contrast Interpretation Summary The left ventricular ejection fraction is 55 %. Normal LV size. Stage 1 diastolic dysfunction. [place] : Akinetic. Mild (1+) eccentric mitral valve insufficiency. Moderate (2+) tricuspid valve insufficiency. Cannot completely exclude apical thrombus small Ordering Physician: Carly Colin Referring Physician: Teresa Boggs Performed By: Ruslan Perez RCS 01/18/25 1656 Date _ Dustin Lemus MD CC: Dr. Teresa Boggs, DO; Carly Colin NP ~ Date Dictated: 01/18/25 1304 Date Transcribed: 01/18/25 1647 Hay Buckler: Signed [facility] Work Phone: Absolute lymphocyte countOrd ered By: SHYAM Colin on 12-15-2024 Lymphocytes Auto (Unsp spec) [#/Vol] 1.36 10*3/uL 0.83-4.51 [facility] Absolute neutrophil countOrd ered By: SHYAM Colin on 12-15-2024 Neutrophils (Bld) [#/Vol] 7.8 10*3/uL High 2.0-7.7 [facility] Automated lymphocyte count a s percentage of total leukocytesOrdered By: SHYAM Colin on 12-15-2024 Lymphocytes/100 WBC Auto (Unsp spec) 13.5 % Low 19-41 [facility] Basophil percentageOrdered B y: SHYAM Colin on 12-15-2024 Basophils/100 WBC (Bld) 0.4 % 0-1 [facility] CBC W/Diff, Automatedon 11-27 Absolute Lymph 1.36 X10 3/uL Normal 0.83-4.51 [facility] Comment on above: Performed By: #### L 100.0100 ####[facility] [address] [place], [address] Absolute Neut 7.8 X10 3/uL High 2.0-7.7 [facility] Comment on above: Performed By: #### L 100.0100 ####[facility] [address] [place], [address] Basophils/100 WBC (Bld) 0.4 % Normal 0-1 [facility] Comment on above: Performed By: #### L 100.0100 ####[facility] [address] [place], [address] Eosinophils/100 WBC (Bld) 2.1 % Normal 0-5 [facility] Comment on above: Performed By: #### L 100.0100 ####[facility] [address] [place], [address] Erythrocyte distribution width (RBC) [Ratio] 12.4 % Normal 11.6-14.6 [facility] Comment on above: Performed By: #### L 100.0100 ####[facility] [address] [place], [address] Hematocrit (Bld) [Volume fraction] 43.0 % Normal 37-47 [facility] Comment on above: Performed By: #### L 100.0100 ####[facility] [address] [place], [address] Hemoglobin (Bld) [Mass/Vol] 14.4 g/dL Normal 12.0-15.0 [facility] Comment on above: Performed By: #### L 100.0100 ####[facility] [address] [place], [address] IG% 0.400 Normal 0.0-0.9 [facility] Comment on above: Result Comment: IG% - Immature Granulocytes (promyelocytes, myelocytes and metamyelocytes) > 1% indicates that a LEFT SHIFT is Present. Performed By: #### L 100.0100 ####[facility] [address] [place], [address] Lymphocytes/100 WBC (Bld) 13.5 % Low 19-41 [facility] Comment on above: Performed By: #### L 100.0100 ####[facility] [address] [place], [address] MCH (RBC) [Entitic mass] 31.6 pg Normal 27.0-32.0 [facility] Comment on above: Performed By: #### L 100.0100 ####[facility] [address] [place], [address] MCHC (RBC) [Mass/Vol] 33.5 g/dL Normal 32-36 [facility] Comment on above: Performed By: #### L 100.0100 ####[facility] [address] [place], [address] MCV (RBC) [Entitic vol] 94.5 fL Normal 81-99 [facility] Comment on above: Performed By: #### L 100.0100 ####[facility] [address] [place], [address] Monocytes/100 WBC (Bld) 6.5 % Normal 0-10 [facility] Comment on above: Performed By: #### L 100.0100 ####[facility] [address] [place], [address] Neutrophils/100 WBC (Bld) 77.1 % High 47-70 [facility] Comment on above: Performed By: #### L 100.0100 ####[facility] [address] [place], [address] Nucleated RBC (Bld) [#/Vol] 0 10*3/uL Normal 0-5 [facility] Comment on above: Performed By: #### L 100.0100 ####[facility] [address] [place], [address] Platelet mean volume (Bld) [Entitic vol] 10.0 fL Normal 6.2-12.0 [facility] Comment on above: Performed By: #### L 100.0100 ####[facility] [address] [place], [address] Platelets (Bld) [#/Vol] 264 10*3/uL Normal 150-450 [facility] Comment on above: Performed By: #### L 100.0100 ####[facility] [address] [place], [address] RBC (Bld) [#/Vol] 4.55 10*6/uL Normal 4.2-5.4 [facility] Comment on above: Performed By: #### L 100.0100 ####[facility] [address] [place], [address] RDW SD 43.1 fl Normal 35.1-43.9 [facility] Comment on above: Performed By: #### L 100.0100 ####[facility] [address] [place], [address] WBC (Bld) [#/Vol] 10.1 10*3/uL Normal 4.4-11.0 [facility] Comment on above: Performed By: #### L 100.0100 ####[facility] [address] [place], [address] Eosinophil percentageOrdered By: SHYAM Colin on 12-15-2024 Eosinophils/100 WBC (Bld) 2.1 % 0-5 [facility] Erythrocyte distribution wid th ratioOrdered By: SHYAM Colin on 12-15-2024 Erythrocyte distribution width (RBC) [Ratio] 12.4 % 11.6-14.6 [facility] Erythrocyte distribution wid th standard deviationOrdered By: SHYAM Colin on 12-15-2024 Erythrocyte distribution width (RBC) [Ratio] 43.1 fl 35.1-43.9 [facility] Hematocrit Auto (Bld) [Volum e fraction]Ordered By: SHYAM Colin on 12-15-2024 Hematocrit (Bld) [Volume fraction] 43.0 % 37-47 [facility] Hemoglobin measurementOrdere d By: SHYAM Colin on 12-15-2024 Hemoglobin (Bld) [Mass/Vol] 14.4 g/dL 12.0-15.0 [facility] Immature granulocytes/100 WB C Auto (Bld)Ordered By: SHYAM Colin on 12-15-2024 Immature granulocytes/100 WBC (Bld) 0.400 % 0.0-0.9 [facility] Comment on above: IG% - Immature Granu locytes (promyelocytes, myelocytes and metamyelocytes) > 1% indicates that a LEFT SHIFT is Present. MCV (mean corpuscular volume ) determinationOrdered By: SHYAM Colin on 12-15-2024 MCV (RBC) [Entitic vol] 94.5 fL 81-99 [facility] Mean corpuscular hemoglobin (MCH) determinationOrdered By: SHYAM Colin on 12-15-2024 MCH (RBC) [Entitic mass] 31.6 pg 27.0-32.0 [facility] Mean corpuscular hemoglobin concentration (MCHC) determinationOrdered By: SHYAM Colin on 12-15-2024 MCHC (RBC) [Mass/Vol] 33.5 g/dL 32-36 [facility] Mean platelet volume determi nationOrdered By: SHYAM Colin on 12-15-2024 Platelet mean volume (Bld) [Entitic vol] 10.0 fL 6.2-12.0 [facility] Monocyte percentageOrdered B y: SHYAM Colin on 12-15-2024 Monocytes/100 WBC (Bld) 6.5 % 0-10 [facility] Neutrophil percentageOrdered By: SHYAM Colin on 12-15-2024 Neutrophils/100 WBC (Bld) 77.1 % High 47-70 [facility] Nucleated red blood cell per centageOrdered By: SHYAM Colin on 12-15-2024 Nucleated RBC/100 WBC (Bld) [Ratio] 0 % 0-5 [facility] Platelet countOrdered By: SHYAM Colin on 12-15-2024 Platelets (Bld) [#/Vol] 264 10*3/uL 150-450 [facility] Pulmonary Visit Reporton Pulmonary Visit Report [facility] [place] [address] [place] [address] OFFICE VISIT Date of Service: 12/15/24 MR#: [id number] Acct: [id number] Name: NISSA TROTTER Rep #: [id number] : 1955 Provider: Carly Colin NP Age/Sex: 69/F [place] [facility] [place]: Signed Assessment and Plan Assessment and Plan (1) ELODIA (obstructive sleep apnea): Status: Chronic Plan: Patient is using and benefiting from Pap therapy.??? She has excellent control of sleep apnea with use of her BiPAP device. Continue with current settings. No indication for titration study at this time. Contact the office for any new or worsening symptoms in the meantime.??? (2) Shortness of breath: Status: Acute Plan: The patient has had residual shortness of breath since URI in July. Overall his shortness of breath has improved. I do not see evidence of COPD on the recent PFT. There is a mild gas transfer abnormality that is present. This could be due to anemia and I have recommended a CBC today to evaluate for this. In the past the patient has had a pulmonary artery systolic pressure of 30 mmHg on her echocardiogram. I have also recommended that the echocardiogram be repeated now that she has been fully compliant with PAP therapy. The reduction seen in the gas transfer could have been due to history of sleep apnea as well. Mucous plugging could also cause the gas transfer to be mildly reduced. The patient does have significant allergy symptoms which could be contributing to the mucous plugging. I have asked her to continue to follow with ENT for control. Due to the improvement in her shortness of breath I will plan to hold off on obtaining a CT scan of her chest at this time. Orders: Orders CBC W/Diff, Automated Today R06.02 - Shortness of breath Echo Complete W/ Contrast Today R06.02 - Shortness of breath Plan Details Follow Up: 2-3 months (LMR) HPI HPI Comments Details: Patient is a 69-year-old female who presents today for evaluation of sleep disordered breathing. She is amatory currently on room air. She has residual shortness of breath from the illness that occurred in July. She reports that it has continued to occur on occasion with exertion. She feels like her shortness of breath has improved since last follow up. She does use Flonase every morning and receives benefit from it. She is a former smoker, smoking from 1989- 1997 2.5 packs/day and quit cold turkey. She has never been evaluated by a pulmonary practice. She did have influenza in 2017. She also reports that she had pneumonia, 27 years ago in her right lung. She indicates that she did experience a smoker's cough and wheeze when she was smoking but this improved when she quit. She does report some residual cough that is productive in the morning. She reports that her sputum is green. She reports that she has problems with allergies. She does not have chest congestion. She denies wheezing cough today. She denies chest pain and tightness. She denies fever, chills, body aches. She has noticed a significant improvement in regards to her daytime functioning with using the new device. She is feeling rested upon awakening. She does nap on occasion. Her tiredness during the day has improved. She does have headaches on occasion but feels that this is medication related. She has occasional dry mouth. Nocturia occurs x 1. A compliance download from her device shows that she is 100% compliant with therapy, using the device around 7 hours nightly average with an AHI of 0.7 with minimal air leak on the BiPAP device. Documentation reviewed with patient today includes: 6-minute walk test from 01/31/2025 shows no significant exertional oxygen desaturation, no indication for the use of supplemental oxygen at this time. PFT from November 21, 2024 shows isolated mild reduction in diffusion capacity. She does not have a recent CBC. The echocardiogram from 2022 shows ejection fraction of 60%, stage I diastolic dysfunction with a pulmonary artery pressure of 30 mmHg Compliance download from December 15, 2024 shows 97% compliant with therapy, using the device 7 hours nightly average. She is using BiPAP at 12 over 6 cm with a respiratory rate of 12 bpm. She has minimal air leak and AHI is 0.9. 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 Normal [facility] RBC Auto (Bld) [#/Vol]Ordere d By: SHYAM Colin on 12-15-2024 RBC (Bld) [#/Vol] 4.55 10*6/uL 4.2-5.4 [facility] White blood cell (WBC) count Ordered By: SHYAM Colin on 12-15-2024 WBC (Bld) [#/Vol] 10.1 10*3/uL 4.4-11.0 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 CLI Location: PSN Date: Sex: F C PSN 6 Minute Walk Test 6 Minute Walk Test 6 Minute Walk Test: 6 Minute Walk Test PSN:6-Minute Walk Test Start: 10/31/24 08:45 Freq: Status: Active Protocol: RESP.6MINW Document 10/31/24 08:45 AM[facility] (Rec: 10/31/24 08:50 AMH [id number]) 6 Minute Walk Test Date Performed 10/31/24 Time Performed 08:15 Height 5 ft 1.5 in Weight: 151 lb Weight in Pounds 151.[address]: Carly Colin Assistive device None used: Pre-test Oxygen Delivery Room Air Method Pulse Ox (%) 98 Pulse Rate (60-100 62 beats/min) Dyspnea Satya Scale ( 0 0-10) Exertion Satya Scale 6 (6-20) 1st minute Oxygen Delivery Room Air Method Pulse Ox (%) 98 Pulse Rate (60-100 63 beats/min) Dyspnea Satya Scale ( 0 0-10) Number of Rests 0 Taken 2nd minute Oxygen Delivery Room Air Method Pulse Ox (%) 97 Pulse Rate (60-100 67 beats/min) Dyspnea Satya Scale ( 1 0-10) Number of Rests 0 Taken 3rd minute Oxygen Delivery Room Air Method Pulse Ox (%) 98 Pulse Rate (60-100 75 beats/min) Dyspnea Satya Scale ( 2 0-10) Number of Rests 0 Taken 4th minute Oxygen Delivery Room Air Method Pulse Ox (%) 98 Pulse Rate (60-100 87 beats/min) Dyspnea Satya Scale ( 2 0-10) Number of Rests 0 Taken 5th minute Oxygen Delivery Room Air Method Pulse Ox (%) 99 Pulse Rate (60-100 88 beats/min) Dyspnea Satya Scale ( 3 0-10) Exertion Satya Scale 7 (6-20) Number of Rests 0 Taken Reported Symptoms Increased Work of Breathing 6th minute Oxygen Delivery Room Air Method Pulse Ox (%) 98 Pulse Rate (60-100 90 beats/min) Dyspnea Satya Scale ( 3 0-10) Number of Rests 0 Taken Reported Symptoms Increased Work of Breathing Post-test Oxygen Delivery Room Air Method Pulse Ox (%) 99 Pulse Rate (60-100 64 beats/min) Dyspnea Satya Scale ( 0 0-10) Exertion Satya Scale 6 (6-20) Full Laps Walked 23 Partial Lap, Number 8 of Tiles Walked Total Distance 1365 Walked (ft) Interpretation Interpretation: The patient ambulated 1365 feet over the course of 6 minutes beginning on room air without assistive devices. Pretesting oxygen saturation was noted to be 98% on room air. With ambulation, the chiquita oxygen saturation was 97%. There was no significant exertional oxygen desaturation. Recommendations Recommendations: There is no indication for the use of supplemental oxygen at this time. 11/03/24 1209 Date Jose Wolfe DO CC: Date Dictated: 05/09/25 1208 Date Transcribed: 11/03/241207 Hay Buckler: Dr. Jose Wolfe, DO Signed Normal [facility] Anion gap in Serum or Plasma Ordered By: Teresa Boggs on 10-27-2024 Anion gap [Moles/Vol] 16 mmol/L High 5-15 [facility] BUN/creatinine ratioOrdered By: Teresa Boggs on 10-27-2024 Urea nitrogen/Creatinine [Mass ratio] 18.6 mg/mg 10-20 [facility] Bilirubin, totalOrdered By: Teresa Boggs on 10-27-2024 Bilirubin [Mass/Vol] 1.17 mg/dL 0.00-1.30 [facility] Carbon dioxide, total [Moles /volume] in Central venous bloodOrdered By: Teresa Boggs on 10-27-2024 CO2 [Moles/Vol] 17.4 mmol/L Low 21.0-32.0 [facility] Chloride assayOrdered By: Marge Boggs on 10-27-2024 Chloride [Moles/Vol] 103 mmol/L 98-108 [facility] Comprehensive Metabolic Prof ilon 10-27-2024 Albumin [Mass/Vol] 4.8 g/dL Normal 3.4-4.8 [facility] Comment on above: Performed By: #### L 501.38719, L501.9520, L506.0400, L500.4050 #### [facility] [address] [place], [address] Albumin/Globulin [Mass ratio] 1.7 {ratio} Normal 0.9-2.4 [facility] Comment on above: Performed By: #### L 501.74548, L501.9520, L506.0400, L500.4050 #### [facility] [address] [place], [address] ALK PHOS 81 U/L Normal 35-104 [facility] Comment on above: Performed By: #### L 501.68959, L501.9520, L506.0400, L500.4050 #### [facility] [address] [place], [address] ALT [Catalytic activity/Vol] 25 U/L Normal <=34 [facility] Comment on above: Performed By: #### L 501.88022, L501.9520, L506.0400, L500.4050 #### [facility] [address] [place], [address] AST [Catalytic activity/Vol] 35 U/L High <=31 [facility] Comment on above: Performed By: #### L 501.61580, L501.9520, L506.0400, L500.4050 #### [facility] [address] [place], [address] Bilirubin [Mass/Vol] 1.17 mg/dL Normal 0.00-1.30 [facility] Comment on above: Performed By: #### L 501.86042, L501.9520, L506.0400, L500.4050 #### [facility] [address] [place], [address] BUN/CRE 18.6 RATIO Normal 10-20 [facility] Comment on above: Performed By: #### L 501.80246, L501.9520, L506.0400, L500.4050 #### [facility] [address] [place], [address] Calcium [Mass/Vol] 10.0 mg/dL Normal 7.6-11.0 [facility] Comment on above: Performed By: #### L 501.49685, L501.9520, L506.0400, L500.4050 #### [facility] [address] [place], [address] Chloride [Moles/Vol] 103 mmol/L Normal 98-108 [facility] Comment on above: Performed By: #### L 501.78471, L501.9520, L506.0400, L500.4050 #### [facility] [address] [place], [address] CO2 [Moles/Vol] 17.4 mmol/L Low 21.0-32.0 [facility] Comment on above: Performed By: #### L 501.56955, L501.9520, L506.0400, L500.4050 #### [facility] [address] [place], [address] Creatinine [Mass/Vol] 1.33 mg/dL High 0.70-1.20 [facility] Comment on above: Performed By: #### L 501.90711, L501.9520, L506.0400, L500.4050 #### [facility] [address] [place], [address] GAP 16 High 5-15 [facility] Comment on above: Performed By: #### L 501.75714, L501.9520, L506.0400, L500.4050 #### [facility] [address] [place], [address] GFR/1.73 sq M.predicted among non-blacks MDRD (S/P/Bld) [Vol rate/Area] 43 mL/min/{1.73_m2} Low >60 [facility] Comment on above: Result Comment: mL/m in/1.73m2 CKD-EPI Creatinine Equation (2020) Performed By: #### L 501.91747, L501.9520, L506.0400, L500.4050 #### [facility] [address] [place], [address] Globulin (S) [Mass/Vol] 2.8 g/dL Normal 2.2-4.2 [facility] Comment on above: Performed By: #### L 501.60804, L501.9520, L506.0400, L500.4050 #### [facility] [address] [place], [address] Glucose [Mass/Vol] 112 mg/dL High 70-99 [facility] Comment on above: Performed By: #### L 501.21061, L501.9520, L506.0400, L500.4050 #### [facility] [address] [place], [address] Potassium [Moles/Vol] 4.0 mmol/L Normal 3.3-5.1 [facility] Comment on above: Performed By: #### L 501.38781, L501.9520, L506.0400, L500.4050 #### [facility] [address] [place], [address] Sodium [Moles/Vol] 136 mmol/L Normal 133-145 [facility] Comment on above: Performed By: #### L 501.74286, L501.9520, L506.0400, L500.4050 #### [facility] [address] [place], [address] T PROT 7.6 g/dL Normal 5.9-8.4 [facility] Comment on above: Performed By: #### L 501.93681, L501.9520, L506.0400, L500.4050 #### [facility] [address] [place], [address] Urea nitrogen [Mass/Vol] 25 mg/dL High 4-19 [facility] Comment on above: Performed By: #### L 501.05080, L501.9520, L506.0400, L500.4050 #### [facility] [address] [place], [address] Free T3on 10-27-2024 Free T3 [Mass/Vol] 2.8 pg/mL Normal 2.18-3.98 [facility] Comment on above: Performed By: #### L 501.71149, L501.9520, L506.0400, L500.4050 #### [facility] [place], [address] Free [id number] By: Teresa fallon on 10-27-2024 Free T3 [Mass/Vol] 2.8 pg/mL 2.18-3.98 [facility] Glomerular filtration rate ( GFR) estimation/1.73 sq m using serum, plasma, or whole bOrdered By: Teresa Boggs on 10-27-2024 GFR/1.73 sq M.predicted among non-blacks MDRD (S/P/Bld) [Vol rate/Area] 43 mL/min/{1.73_m2} Low >60 [facility] Comment on above: mL/min/1.73m2 CKD-EP I Creatinine Equation (2020) Laboratory - Chemistry and C hemistry - challengeOrdered By: Teresa Boggs on 10-27-2024 AST [Catalytic activity/Vol] 35 U/L High <32 [facility] Potassium measurement (mass/ volume)Ordered By: Teresa Boggs on 10-27-2024 Potassium (Unsp spec) [Mass/Vol] 4.0 mmol/L 3.3-5.1 [facility] Serum creatinine measurement (mass/volume)Ordered By: Teresa Boggs on 10-27-2024 Creatinine [Mass/Vol] 1.33 mg/dL High 0.70-1.20 [facility] Serum globulin measurementOr dered By: Teresa Boggs on 10-27-2024 Globulin (S) [Mass/Vol] 2.8 g/dL 2.2-4.2 [facility] Serum glucose measurement (m ass/volume)Ordered By: Teresa Boggs on 10-27-2024 Glucose [Mass/Vol] 112 mg/dL High 70-99 [facility] Serum or plasma alanine luu otransferase (ALT) measurementOrdered By: Teresa Boggs on 10-27-2024 ALT [Catalytic activity/Vol] 25 U/L <35 [facility] Serum or plasma albumin cate urement (mass/volume)Ordered By: Teresa Boggs on 10-27-2024 Albumin [Mass/Vol] 4.8 g/dL 3.4-4.8 [facility] Serum or plasma albumin/glob ulin mass ratioOrdered By: Teresa Boggs on 10-27-2024 Albumin/Globulin [Mass ratio] 1.7 {ratio} 0.9-2.4 [facility] Serum or plasma alkaline ady sphatase measurementOrdered By: Teresa Boggs on 10-27-2024 ALP [Catalytic activity/Vol] 81 U/L 35-104 [facility] Serum or plasma calcium cate urement (mass/volume)Ordered By: Teresa Boggs on 10-27-2024 Calcium [Mass/Vol] 10.0 mg/dL 7.6-11.0 [facility] Serum or plasma urea nitroge n measurement (mass/volume)Ordered By: Teresa Boggs on 10-27-2024 Urea nitrogen [Mass/Vol] 25 mg/dL High 4-19 [facility] Sodium levelOrdered By: Teresa Boggs on 10-27-2024 Sodium [Moles/Vol] 136 mmol/L 133-145 [facility] T4 Free Directon 10-27-2024 T4 FREE DIRECT 1.20 ng/dL Normal 0.76-1.46 [facility] Comment on above: Performed By: #### L 501.12255, L501.9520, L506.0400, L500.4050 ####[facility] [address] [place], [place], [address] T4 freeOrdered By: Teresa Ordaz s on 10-27-2024 Free T4 [Mass/Vol] 1.20 ng/dL 0.76-1.46 [facility] TSH DL <= 0.005 mIU/L QnOrde red By: Teresa Boggs on 10-27-2024 TSH Qn 1.250 uIU/mL 0.300-4.20 0 [facility] Thyroid Stim Hormone (TSH)on 10-27-2024 TSH 1.250 uIU/mL Normal 0.300-4.20 0 [facility] Comment on above: Performed By: #### L 501.46042, L501.9520, L506.0400, L500.4050 #### [facility] [address] [place], [address] Total proteinOrdered By: Rachael Boggs on 10-27-2024 Protein [Mass/Vol] 7.6 g/dL 5.9-8.4 [facility] Pulmonary Visit Reporton Pulmonary Visit Report [facility] [place] [address] [place] [address] OFFICE VISIT Date of Service: 10/18/24 MR#: [id number] Acct: [id number] Name: NISSA TROTTER Rep #: [id number] : 1955 Provider: Carly Colin NP Age/Sex: 69/F [place] [facility] [place] Status: Signed Assessment and Plan Assessment and Plan (1) ELODIA (obstructive sleep apnea): Status: Acute Plan: The patient has received excellent benefit with using BiPAP ST mode. She has good control of her apnea and during the titration study she did not require supplemental oxygen to improve hypoxemia. The pressures on her BiPAP device were adequate to control her nocturnal oxygenation as well. I have recommended that she continue with therapy. I also recommend a compliance download on follow- up to review. (2) Shortness of breath: Status: Acute Plan: The patient has had residual shortness of breath since URI in July. She does have a 21-mnwf-gctc smoking history and significant cardiovascular history which could be contributing to her shortness of breath. At this point I have recommended a PFT and a 6-minute walk test to further evaluate lung functioning and the possible need for supplemental oxygen. Further recommendations will be forthcoming once the testing has been obtained. Since it has been 27 years since she quit smoking the patient does not qualify for low-dose screening lung CT but if there is abnormality seen on the PFT then a CT imaging may be warranted on follow-up. Orders: Orders PFT Complete - DLCO, Spirometry b/a bronchodilators, lung volumes 11/13/24 R06.02 - Shortness of breath Simple Pulmonary Exercise Test 11/28/24 R06.02 - Shortness of breath Plan Details Follow Up: 8 Weeks (LMR) HPI HPI Comments Details: Patient is a 69-year-old female who presents today for evaluation of sleep disordered breathing. She is amatory currently on room air. She had bronchitis in the middle of July and was on antibiotics for 2 rounds and needed prednisone. She indicates that this is the first that this has happened to her. She reports that since this illness she has had residual shortness of breath and more tiredness. She was put on an inhaler twice daily, she completed this and had good benefit. She does not recall the name of the inhaler. She does not use a daily maintenance inhaler. She does use Flonase every morning and receives benefit from it. She is a former smoker, smoking from 1989- 1997 2.5 packs/day and quit cold turkey. She has never been evaluated by a pulmonary practice. She did have influenza in 2017. She also reports that she had pneumonia, 27 years ago in her right lung. She indicates that she did experience a smoker's cough and wheeze when she was smoking but this improved when she quit. She denies wheezing cough today. She denies fever, chills, body aches. She has recently completed a titration polysomnogram due to poor AHI reading on report and increased length of sleeping at night. She was also feeling unrefreshed upon awakening and struggling with daytime hypersomnia. The titration study showed treatment emergent central apnea. The recommendation was to begin bilevel at IPAP 12 cm of water pressure and EPAP at 6 cm of water pressure with ST mode and backup rate of 12/min. The patient has begun therapy and loves BiPAP . She has noticed a significant improvement in regards to her daytime functioning with using the new device. She is feeling rested upon awakening. She has not required naps. Her tiredness during the day has improved. She does have headaches on occasion but feels that this is medication related. She has occasional dry mouth. A compliance download from her device shows that she is 100% compliant with therapy, using the device around 7 hours nightly average with an AHI of 0.7 with minimal air leak on the BiPAP device. 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 Normal [facility] Bilirubin directOrdered By: Ana Bailey on 10-03-2024 Bilirubin.direct [Mass/Vol] 0.45 mg/dL High 0.00-0.30 [facility] Bilirubin, totalOrdered By: Ana Bailey on 10-03-2024 Bilirubin [Mass/Vol] 0.93 mg/dL 0.00-1.30 [facility] Calculated very low density lipoprotein (VLDL) cholesterol measurementOrdered By: Ana Bailey on 10-03-2024 Calculated very low density lipoprotein (VLDL) cholesterol measurement 13 mg/dL 5-40 [facility] VLDL Cholesterol 13 mg/dL 5-40 [facility] LDL calc ser/plasOrdered By: Ana Bailey on 10-03-2024 Cholesterol in LDL [Mass/Vol] 40 mg/dL [facility] Comment on above: Skkuquhiwp=777-419 m g/dL & Higher Xbyr=636 mg/dL or greater LDL Cholesterol, Calculated 40 mg/dL [facility] Comment on above: Fxfsagyuqg=142-497 m g/dL & Higher Eztp=321 mg/dL or greater Laboratory - Chemistry and C hemistry - challengeOrdered By: Ana Bailey on 10-03-2024 AST [Catalytic activity/Vol] 36 U/L High <32 [facility] Lipid Profileon 10-03-2024 CHOL:HDL 1.76 Normal [facility] Comment on above: Performed By: #### L 500.3400, L500.4100 ####[facility] [address] [place], [address] Cholesterol [Mass/Vol] 122 mg/dL Normal <=200 [facility] Comment on above: Result Comment: Chol esterol level, Desirable <200 mg/dL Borderline high cholesterol 200-239 mg/dL High cholesterol >=240 mg/dL Recommendations of the NCEP Adult Treatment Panel for the following risk-cutoff thresholds for the [place] population. Performed By: #### L 500.3400, L500.4100 ####[facility] [address] [place], [address] Cholesterol in HDL [Mass/Vol] 69 mg/dL Normal [facility] Comment on above: Result Comment: Cherise onal Cholesterol Education Program (NCEP) guidelines: <40 mg/dL: Low HDL-cholesterol (major risk factor for CHD) >= 60 mg/dL: High HDL-cholesterol (negative risk factor for CHD) HDL-cholesterol is affected by a number of factors, e.g. smoking, exercise, hormones, sex and age. Performed By: #### L 500.3400, L500.4100 ####[facility] [address] [place], [address] Cholesterol in LDL [Mass/Vol] 40 mg/dL Normal [facility] Comment on above: Result Comment: Bord brziqu=510-535 mg/dL Higher Rzod=732 mg/dL or greater Performed By: #### L 500.3400, L500.4100 ####[facility] [address] [place], [address] Cholesterol in VLDL [Mass/Vol] 13 mg/dL Normal 5-40 [facility] Comment on above: Performed By: #### L 500.3400, L500.4100 ####[facility] [address] [place], [address] Triglyceride [Mass/Vol] 64 mg/dL Normal [facility] Comment on above: Result Comment: The drugs N-Acetylcysteine and Metamizole may falsely depress this assay. Normal range: <150 mg/dL Borderline High: 150-199 mg/dL High: 200-499 mg/dL Very High: >500 mg/dL Performed By: #### L 500.3400, L500.4100 ####[facility] [address] [place], [address] Liver Profileon 10-03-2024 Albumin [Mass/Vol] 4.5 g/dL Normal 3.4-4.8 [facility] Comment on above: Performed By: #### L 500.3400, L500.4100 ####[facility] [address] [place], [address] ALK PHOS 82 U/L Normal 35-104 [facility] Comment on above: Performed By: #### L 500.3400, L500.4100 ####[facility] [address] [place], [address] ALT [Catalytic activity/Vol] 24 U/L Normal <=34 [facility] Comment on above: Performed By: #### L 500.3400, L500.4100 ####[facility] [address] [place], [address] AST [Catalytic activity/Vol] 36 U/L High <=31 [facility] Comment on above: Performed By: #### L 500.3400, L500.4100 ####[facility] [address] [place], [address] Bilirubin [Mass/Vol] 0.93 mg/dL Normal 0.00-1.30 [facility] Comment on above: Performed By: #### L 500.3400, L500.4100 ####[facility] [address] [place], [address] Bilirubin.direct [Mass/Vol] 0.45 mg/dL High 0.00-0.30 [facility] Comment on above: Performed By: #### L 500.3400, L500.4100 ####[facility] [address] [place], [address] Globulin (S) [Mass/Vol] 2.6 g/dL Normal 2.2-4.2 [facility] Comment on above: Performed By: #### L 500.3400, L500.4100 ####[facility] [address] [place], [address] T PROT 7.0 g/dL Normal 5.9-8.4 [facility] Comment on above: Performed By: #### L 500.3400, L500.4100 ####[facility] [address] [place], [address] Screening total cholesterol/ high density lipoprotein (HDL) cholesterol ratioOrdered By: Ana Bailey on 10-03-2024 Cholesterol.total/Chol esterol in HDL [Mass ratio] 1.76 {ratio} [facility] Serum globulin measurementOr dered By: Ana Bailey on 10-03-2024 Globulin (S) [Mass/Vol] 2.6 g/dL 2.2-4.2 [facility] Serum or plasma alanine luu otransferase (ALT) measurementOrdered By: Ana Bailey on 10-03-2024 ALT [Catalytic activity/Vol] 24 U/L <35 [facility] Serum or plasma albumin cate urement (mass/volume)Ordered By: Ana Bailey on 10-03-2024 Albumin [Mass/Vol] 4.5 g/dL 3.4-4.8 [facility] Serum or plasma alkaline ady sphatase measurementOrdered By: Ana Bailey on 10-03-2024 ALP [Catalytic activity/Vol] 82 U/L 35-104 [facility] Serum or plasma cholesterol in HDL measurement (mass/volume)Ordered By: Ana Bailey on 10-03-2024 Cholesterol in HDL [Mass/Vol] 69 mg/dL >40 [facility] Comment on above: National Cholesterol Education Program (NCEP) guidelines:<40 mg/dL: Low HDL-cholesterol (major risk factor for CHD)>= 60 mg/dL: High HDL-cholesterol (negative risk factor for CHD)HDL-cholesterol is affected by a number of factors, e.g. smoking, exercise, hormones, sex and age. Serum or plasma cholesterol measurement (mass/volume)Ordered By: Ana Bailey on 10-03-2024 Cholesterol [Mass/Vol] 122 mg/dL <201 [facility] Comment on above: Cholesterol level, D esirable <200 mg/dLBorderline high cholesterol 200-239 mg/dLHigh cholesterol >=240 mg/dLRecommendations of the NCEP Adult Treatment Panel for the following risk-cutoff thresholds for the [place] population. Total proteinOrdered By: Karan Bailey on 10-03-2024 Protein [Mass/Vol] 7.0 g/dL 5.9-8.4 [facility] Triglycerides measurementOrd ered By: Ana Bailey on 10-03-2024 Triglyceride [Mass/Vol] 64 mg/dL <199 [facility] Comment on above: The drugs N-Acetylcy steine and Metamizole may falsely depress this assay. Normal range: <150 mg/dLBorderline High: 150-199 mg/dLHigh: 200-499 mg/dLVery High: >500 mg/dL No Panel InformationOrdered By: Sajan Dillon on 09-14-2024 [facility] [address] [place] [address] CR - Individual Treatment Plan MR#: [id number] Acct: [id number] Name: NISSA TROTTER Rep #:[id number] : 1955 69 From: Sajan Lewis BS, RVT PCP: Dr. Teresa Boggs DO DOS: 09/13/24 Exercise - Initial Assessment Physician Prescribed Exercise Modalities: Treadmill, Schwinn Airdyne AD-7 and SciFit Stepper Nutrition - Initial Assessment Program Goals Nutrition Program Goals Patient has diagnosis of Hyperlipidemia (ICD E78)?: Yes Weight Mgt (Other Care) Height: 5 ft 1 in Weight:: 153 lb BMI: 28.9 Core - Initial Assessment Hypertension Resting Blood Pressure:: 136/70 [place] [employer] Hypertension Guidelines Psychosocial - Initial Assess Target Goals Target Goals Referral to Behavioral Health PS - Interventions: Yes: Attend Stress Management Classes Patient Health Questionnaire PHQ-9 Screening Discharge Assessment: 1. Little interest or pleasure in doing things: Not at all 2. Feeling down, depressed, or hopeless: Not at all 3. Trouble falling or staying asleep, or sleeping too much: Nearly every day 4. Feeling tired or having little energy: Nearly every day 5. Poor appetite or overeating: Not at all 6. Feeling bad about yourself -- or that you are a failure or have let yourself or your family down: Not at all 7. Trouble concentrating on things, such as reading the newspaper or watching television: Not at all 8. Moving or speaking so slowly that other people could have noticed. Or the opposite - being so fidgety or restless that you have been moving around a lot more than usual: Not at all 9. Thoughts that you would be better off , or of hurting yourself in some way: Not at all How difficult have these problems made it for you to do your work, take care of things at home, or get along with other people?: Very difficult Total Score: 6 Self-Efficacy 6-Item Scale Discharge Assessment: We would like to know how confident you are in doing certain activities. Please select your confidence level for: Fatigue Select Number: 10 Physical Discomfort or Pain Select Number: 10 Emotional Distress Select Number: 10 Other Symptoms or Health Problems Select Number: 10 Different Tasks and Activities Select Number: 10 Medication Select Number: 10 Total Score:: 10 Nutrition Survey Nutrition Survey Instructions Scoring Instructions Exercise - 30-day Assessment Physician Prescribed Exercise Modalities: Treadmill, Schwinn Airdyne AD-7 and SciFit Stepper Exercise - 60-day Assessment Physician Prescribed Exercise Modalities: Treadmill, Schwinn Airdyne AD-7 and SciFit Stepper Exercise - 90-day Assessment Physician Prescribed Exercise Modalities: Treadmill, Schwinn Airdyne AD-7 and SciFit Stepper Exercise - Final/Discharge Visit Date of Eval: 09/14/24 Session #:: 31 Physician Prescribed Exercise Modalities: Treadmill, Schwinn Airdyne AD-7 and SciFit Stepper Frequency: 3x/week for 12 weeks [36 sessions] Intensity: 60-80% of age predicted maximum heart rate reserve Duration: 30 - 45 minutes Current METSs:: 4.8 Target Heart Rate:: 91-121 Current RPE:: 11 Maximum Heart Rate:: 99 Resting Blood Pressure: 136/70 Maximum Exercise Blood Pressure: 140/76 EKG Type: NSR-ST with inverted T wave, rare pac and occas pvc Outcomes & Goals Goals:: Verbalizes understanding of THR, RPE & goal METS by session 6, Documentsin home exercise log/reports 30 min aerobic 5 day/wk by DC, Demonstrates accurate pulse taking by DC and Other additional outcome/goals: see below Intervention & Plan Exercise Program Goals: Instruct on personal THR & RPE, Instruct on MET level & personal MET goal, Show patient to take own pulse /validate performance until accurate, Instruct on home exercise and Other additional plan/int Physical Activity Home Exercise Physical Activity - Home Exercise: Safe Exercise, Warm-up, Self-monitoring, Cool-Down, Home Exercise > 30 min Daily and Sitting Time <3 hours/daily Outcomes & Goals Outcomes/Goals: Demonstrates correct Warm-up/exercise Cool-Down (S3) if = 2.5 METs, Verbalizes symptoms of exercise intolerance by Session 3 (S3), Demonstratesafe equipment use (S3) & follows exercise prescrition (6) and Other: See below Intervention & Plan Plan/Intervention: Instruct warm-up & cool-down if exercising at > 2 METs, Instruct on symptoms of exercise intolerance & actions to take, Instruct & monitor on saf, Assess intial functional capacity & safety risk and Other See below 30-day Reassessments 30 day Reassessments:: Met Reassessment Notes & Comments:: Pt has done very well. Pt has 5 sessions remaining and will be ready to exercise on her own. Pt understands exercise safety. Pt understands exercise intensity, duration, and frequency. Nutrition - 30-Day Assessment Weight Mgt (Other Care) Height: 5 ft 1 in Weight:: 153 lb BMI: 28.9 Nutrition - 60-Day Assessment Weight Mgt (Other Care) Height: 5 ft 1 in Weight:: 153 lb BMI: 28.9 Core - Final Assessment Visit Date of Eval: 09/14/24 Session #:: 31 (more content not included)... [facility] Cardiology Visit Reporton Cardiology Visit Report [facility] [address] [place] [address] OFFICE VISIT Date of Service: 09/07/24 MR#: [id number] Acct: [id number] Name: NISSA TROTTER Rep #: [id number] : 1955 Provider: JENNY Gomez Age/Sex: 69/F Location: [facility] Status: Signed HPI HPI History of Present Illness Details: NISSA TROTTER, is a 68 F who presents today for a cardiovascular follow- up visit. She is a lady with a history of coronary artery disease status post cardiac catheterization in 2015 demonstrating a normal left main coronary artery, left anterior descending artery which was previously bypassed, circumflex artery with an 80% stenotic lesion and a 95% bifurcating RCA lesion. The circumflex artery had a saphenous vein graft which was patent and the left internal mammary artery was atretic. 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 She was seen in 2019 and despite a normal stress test she had complained of chest discomfort and therefore underwent a cardiac catheterization which demonstrated a high-grade stenosis of the saphenous vein graft to the second obtuse marginal branch. She underwent 2 drug- eluting stents to the above. Stress test in December 2023 was negative for ischemia. She had a heart catheterization on 05/01/2024 that showed ostial left main coronary artery stenosis and atretic VARGAS to LAD, mild disease noted in the RCA, and occluded SVG to obtuse marginal. She proceeded with multivessel PCI on 2023 at [facility] she had postprocedural vasovagal episode and developed a hematoma over her right groin insertion site. Echocardiogram on 05/02/2024 showed ejection fraction of 59% and normal global longitudinal strain at -16.8%. She was recently diagnosed with ELODIA and will be starting on a Bipap. From a cardiac standpoint, patient is doing well. She does not have any chest discomfort/heaviness/tightn ess. Her exercise tolerance is stable for her age. She is still in cardiac rehab. She walked to the today, it was over a mile without issues. She does not have any worsening symptoms of shortness of breath. She does not have any orthopnea. She denies PND. She does not have any symptoms of congestive heart failure. She does not have any palpitations that she is aware of. She does not have any lightheadedness or dizziness. She does not have any near- syncope or syncope. She does not have any lower extremity edema. She does not have any symptoms of claudication. 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?Recorded ???Confirmed ???Type omega-3 fatty acids 500 mg capsule 1,500 mg PO DAILY SUPPLEMENT 09/07/24 History aspirin 81 mg chewable tablet 81 mg PO DAILY@0800 ANTIPLATELET 0 09/24/16 09/07/24 History cyclobenzaprine 5 mg tablet 5 mg PO PRN PRN Muscle Pain 09/07/24 History calcium carbonate-vitamin D3 500 1 cap PO DAILY 06/08/22 09/07/24 H istory mg (1,250 mg)-50 unit capsule duloxetine 60 mg capsule,delayed 60 mg PO DAILY 07/10/22 09/07/24 H istory release levothyroxine 50 mcg tablet 50 mcg PO MOTUWETHFRSA 07/10/22 History nitroglycerin 0.4 mg sublingual See Rx Instructions .Route 3 09/07/24 Rx tablet .COMPLEX #25 tabs buspirone 5 mg tablet 15 mg PO TID MENTAL HEALTH 3 09/07/24 History metoprolol tartrate 25 mg tablet 25 mg PO BID #180 tabs 03/28/24 Rx spironolactone 25 mg tablet 25 mg PO DAILY #90 tabs 03/28/24 0 09/07/24 Rx (Aldactone) estradiol 0.01% (0.1 mg/gram) See Rx Instructions .Route 4 09/07/24 Rx vaginal cream .COMPLEX #42.5 grams ticagrelor 90 mg tablet (Brilinta) 90 mg PO BID #180 tabs 05/15/24 09/07/24 Rx pantoprazole 20 mg tablet,delayed 20 mg PO QDAY #90 tabs 05/18/24 0 09/07/24 Rx release rosuvastatin 40 mg tablet (Crestor) 40 mg PO QDAY #90 ta (more content not included)... Normal [facility] Direct serum free thyroxine (FT4) measurementOrdered By: Teresa Boggs on 08-04-2024 Free T4 [Mass/Vol] 1.13 ng/dL 0.76-1.46 [facility] Free T3on 08-04-2024 Free T3 [Mass/Vol] 2.6 pg/mL Normal 2.18-3.98 [facility] Comment on above: Performed By: #### L 501.9520, L501.63163, L506.0400 ####[facility] [id number] [place] [place], [address] Free [id number] By: Teresa fallon on 08-04-2024 Free T3 [Mass/Vol] 2.6 pg/mL 2.18-3.98 [facility] Free Triiodothyronine (T3) pg/dL 2.6 pg/mL 2.18-3.98 [facility] Serum or plasma thyroid stim ulating hormone (TSH) measurement (units/volume)Ordered By: Teresa Boggs on 08-04-2024 TSH Qn 0.398 uIU/mL 0.358-3.74 0 [facility] T4 Free Directon 08-04-2024 T4 FREE DIRECT 1.13 ng/dL Normal 0.76-1.46 [facility] Comment on above: Performed By: #### L 501.9520, L501.83204, L506.0400 ####[facility] [id number] [place], [address] TSH QnOrdered By: Teresa Boggs on 08-04-2024 Thyroid Stimulating Hormone (TSH) 0.398 uIU/mL 0.358-3.74 0 [facility] Thyroid Stim Hormone (TSH)on 08-04-2024 TSH 0.398 uIU/mL Normal 0.358-3.74 0 [facility] Comment on above: Performed By: #### L 501.9520, L501.40197, L506.0400 ####[facility] [address] [place], [address] No Panel Informationon 07-20 Influenza Types A,B Rapid (Clinic) Negative [facility] POC SARS CoV-2 Antigen Negative [facility] Visit Reporton 0 07-20-2024 Urgent Care Visit Report [facility] [address], [address] [place] [address] OFFICE VISIT Date of Service: 07/20/24 MR#: [id number] Acct: [id number] Name: NISSA TROTTER Darrius Rep #: [id number] : 1955 Provider: JENNY Zacarias Age/Sex: 68/F Location: [facility] Status: Signed Intake Vital Signs 06/19/24 07:11 07/20/24 09:21 Height 5 ft 1 in BP 142/72 H Blood Pressure Location Lt brachial Position Sitting Respiration 16 Pulse 88 Pulse Source NIBP Temp 98.1 F Temp Source Oral Pulse Oximetry (%) 98 Oxygen Delivery Method room air Intake Visit Reasons: SORE THROAT, COUGH Chief Complaint: ST, cough, DE JESUS, BA, congest 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: No Is patient in pain?: No Allergies adhesive tape Allergy (Verified 07/20/24 09:21) Rash doxazosin Allergy (Verified 07/20/24 09:21) DROPS HEART RATE furosemide (From Lasix) Allergy (Verified 07/20/24 09:21) Itching latex Allergy (Verified 07/20/24 09:21) Rash lisinopril Allergy (Verified 07/20/24 09:21) Angioedema codeine Adverse Reaction (Verified 07/20/24 09:21) Itching oxycodone HCl (From Percocet) Adverse Reaction (Verified 07/20/24 09:21) Itching tramadol HCl (From Ultram) Adverse Reaction (Verified 07/20/24 09:21) Itching Is last menstrual period known: No Post menopausal: Yes Patient : No Have you fallen in the past year?: No Nurse's Note: ST, cough, DE JESUS, BA, congest and loss of taste x 5 days worsening. PFSH Medical History Bilateral carotid bruits Easy bruising 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 Wears partial dentures Wears glasses Post-menopausal Cancer Depression Anxiety History of steroid therapy Thyroid disease Arthritis Back pain History of IBS CPAP (continuous positive airway pressure) dependence History of echocardiogram History of stress test Hypertension Cardiology follow-up encounter History of heart attack History of atrial fibrillation Former smoker Personal history of skin cancer Neoplasm of skin of ear ELODIA (obstructive sleep apnea) High triglycerides Anxiety and depression Allergies Alcohol abuse Actinic keratoses IBS (irritable bowel syndrome) Myocardial infarct Bipolar 1 disorder TIA (transient ischemic attack) Blurred vision, bilateral Slurred speech Chronic diastolic (congestive) heart failure Subluxation of left thumb Essential (primary) hypertension Non-rheumatic tricuspid valve insufficiency Atherosclerosis of coronary artery of [place] heart with angina pectoris CVA (cerebral vascular accident) Basal cell carcinoma of neck Hypothyroidism GERD (gastroesophageal reflux disease) Osteoarthritis Fibromyalgia Seizure disorder Post traumatic stress disorder (PTSD) Hyperlipidemia Surgical History History of excision of lesion Hx of surgical procedure History of coronary artery stent placement Hx of foot surgery Hx of foot surgery History of esophagogastroduodenoscopy (EGD) History of basal cell carcinoma excision History of left heart catheterization (03/25/20) H/O coronary artery bypass surgery (10/21/07) Family History Father CAD (coronary artery disease) Hypertension Mother CAD (coronary artery disease) Hypertension Colon cancer Sister Hypertension Other Alcoholism Anxiety Arthritis Depression Heart disease Social History Smoking Status: Former smoker alcohol intake: former details: Participates in AA substance use type: does not use what type of physical activity do you participate in: walking seatbelt use: always do you feel safe at home: Yes additional social history: disability- retired Does Take Aspirin As Needed Does Not Take Ibuprofen HPI HPI Chief Complaint: ST, cough, DE JESUS, BA, congest Details: NISSA TROTTER, is a 68 F who presents to the office today for complaint sore throat, cough, headache, body aches and congestion. Patient denies hemoptysis, shortness of breath or difficulty breathing. She states that this has been worsening over the past week. She denies fever, chills or sweats. No nausea, vomiting or diarrhea. No loss of taste or smell. No other associated symptoms or alleviating/aggravating factors. ROS Const Constitutional: No other (6 system ROS completed with pertinent findings in the HPI otherwise normal.) Exam Const General: cooperative and well developed HENMT Head: normal to inspection and atraumatic Ears: hearing grossly normal bilaterally Nose: nasal discharge clear Face and sinus: normal facial exam Mouth: oral mucosae normal Throat: abnormal tonsil bilaterally hypertrophy 1+ (more content not included)... Normal [facility] CR - History AND Physicalon 05-22-2024 CR - History & Physical [facility] Card[facility] Re[facility] [address] [place] [address] CR - History Physical MR#: [id number] Acct: [id number] Name: NISSA TROTTER Rep #: [id number] : 1955 68 From: Sajan Lewis BS, RVT PCP: Dr. Teresa Boggs DO DOS: 05/22/24 CR - History Physical General Arrival date:: 05/22/24 Arrival time:: 14:04 Date of Referral:: 05/10/24 Date of CR Evaluation:: 05/22/24 Referring Physician: Dr. Lemus Primary Diagnosis: PCI with stent History of Present Cardiac Event Onset Date PTCA or coronary stenting:: Yes (onset 05/02/24) Medications Ambulatory Orders ???Medication ???Instructions ???Recorded omega-3 fatty acids 500 mg capsule 1,500 mg PO DAILY SUPPLEMENT 10/20/15 aspirin 81 mg chewable tablet 81 mg PO DAILY@0800 ANTIPLATELET 09/24/16 cetirizine 10 mg capsule 10 mg PO DAILY 11/02/19 cyclobenzaprine 5 mg tablet 5 mg PO PRN PRN Muscle Pain 05/06/22 calcium carbonate-vitamin D3 500 1 cap PO DAILY 06/08/22 mg (1,250 mg)-50 unit capsule duloxetine 60 mg capsule,delayed 60 mg PO DAILY 07/10/22 release levothyroxine 50 mcg tablet 50 mcg PO MOTUWETHFRSA 07/10/22 nitroglycerin 0.4 mg sublingual See Rx Instructions .Route 03/30/23 tablet .COMPLEX #25 tabs buspirone 5 mg tablet 15 mg PO TID MENTAL HEALTH 05/26/23 amlodipine 10 mg tablet 10 mg PO DAILY #90 tabs 03/28/24 metoprolol tartrate 25 mg tablet 25 mg PO BID #180 tabs 03/28/24 spironolactone 25 mg tablet 25 mg PO DAILY #90 tabs 03/28/24 (Aldactone) estradiol 0.01% (0.1 mg/gram) See Rx Instructions .Route 04/06/24 vaginal cream .COMPLEX #42.5 grams ticagrelor 90 mg tablet (Brilinta) 90 mg PO BID #180 tabs 05/15/24 pantoprazole 20 mg tablet,delayed 20 mg PO QDAY #90 tabs 05/18/24 release rosuvastatin 40 mg tablet (Crestor) 40 mg PO QDAY #90 tabs 05/18/24 Allergies Allergies adhesive tape Allergy (Verified 05/10/24 15:40) Rash doxazosin Allergy (Verified 05/10/24 15:40) DROPS HEART RATE furosemide (From Lasix) Allergy (Verified 05/10/24 15:40) Itching latex Allergy (Verified 05/10/24 15:40) Rash lisinopril Allergy (Verified 05/10/24 15:40) Angioedema codeine Adverse Reaction (Verified 05/10/24 15:40) Itching oxycodone HCl (From Percocet) Adverse Reaction (Verified 05/10/24 15:40) Itching tramadol HCl (From Ultra) Adverse Reaction (Verified 05/10/24 15:40) Itching Sleep Disorder Evaluation Hx of Sleep Apnea: Yes Do you snore loudly (louder than talking or can be heard through closed doors)?: No Do you often feel tired/ fatigued/ sleepy during daytime?: No Has anyone observed you stop breathing during sleep?: No History of Hypertension (for STOP score): Yes STOP Results: Negative Advanced Directives Advanced Directives Power of Biology Laboratory Assistant: No Living Will: No Advance Directives Information Provided: No Advance Directives on File: No DNR Order?:: No Past Medical History Covid-19 Screening Physicial Symptoms Other Clinical Concerns Exposure Risk Pertinent Comorbidities 65 years or older:: Yes Has a serious heart condition:: Yes Past Medical Illness Medical History Bilateral carotid bruits Easy bruising 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 Wears partial dentures Wears glasses Post-menopausal Cancer Depression Anxiety History of steroid therapy Thyroid disease Arthritis Back pain History of IBS CPAP (continuous positive airway pressure) dependence History of echocardiogram History of stress test Hypertension Cardiology follow-up encounter History of heart attack History of atrial fibrillation Former smoker Personal history of skin cancer Neoplasm of skin of ear ELODIA (obstructive sleep apnea) High triglycerides Anxiety and depression Allergies Alcohol abuse Actinic keratoses IBS (irritable bowel syndrome) Myocardial infarct Bipolar 1 disorder TIA (transient ischemic attack) Blurred vision, bilateral Slurred speech Chronic diastolic (congestive) heart failure Subluxation of left thumb Essential (primary) hypertension Non-rheumatic tricuspid valve insufficiency Atherosclerosis of coronary artery of [place] heart with angina pectoris CVA (cerebral vascular accident) Basal cell carcinoma of neck Hypothyroidism GERD (gastroesophageal reflux disease) Osteoarthritis Fibromyalgia Seizure disorder Post traumatic stress disorder (PTSD) Hyperlipidemia Past Surgical History Surgical History History of excision of lesion Hx of surgical procedure History of coronary artery stent placement Hx of foot surgery Hx of foot surgery History of esophagogastroduodenoscopy (EGD) History of basal cell carcinoma excision History of left heart catheterization (03/25/20) H/O coronary artery bypass surgery (10/20/ more content not included)... Normal [facility] Cardiology Visit Reporton Cardiology Visit Report [facility] [address] [place] [address] OFFICE VISIT Date of Service: 05/10/24 MR#: [id number] Acct: [id number] Name: NISSA TROTTER Rep #: [id number] : 1955 Provider: CARLI guerrero Age/Sex: 68/F Location: [facility] Status: Signed HPI HPI History of Present Illness Details: NISSA TROTTER, is a 68 F who presents today for a cardiovascular follow- up visit. She is a lady with a history of coronary artery disease status post cardiac catheterization in 2015 demonstrating a normal left main coronary artery, left anterior descending artery which was previously bypassed, circumflex artery with an 80% stenotic lesion and a 95% bifurcating RCA lesion. The circumflex artery had a saphenous vein graft which was patent and the left internal mammary artery was atretic. 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 She was seen in 2019 and despite a normal stress test she had complained of chest discomfort and therefore underwent a cardiac catheterization which demonstrated a high-grade stenosis of the saphenous vein graft to the second obtuse marginal branch. She underwent 2 drug- eluting stents to the above. Stress test in December 2023 was negative for ischemia. She had a heart catheterization on 05/01/2024 that showed ostial left main coronary artery stenosis and atretic VARGAS to LAD, mild disease noted in the RCA, and occluded SVG to obtuse marginal. She proceeded with multivessel PCI on 2023 at [facility] she had postprocedural vasovagal episode and developed a hematoma over her right groin insertion site. Echocardiogram on 05/02/2024 showed ejection fraction of 59% and normal global longitudinal strain at -16.8%. She states intermittent, short lasting chest pain that seems to be less often since stenting. She denies palpitations. She denies bilateral lower extremity edema. She denies claudication. She denies shortness of breath with activity, shortness of breath at rest, orthopnea, or PND. She denies chronic cough. She denies significant, sudden weight gain. She denies lightheadedness, dizziness, near-syncope, or syncope. She denies blood in urine, blood in stool, or epistaxis. He denies fever with chills. She denies myalgia. She denies fatigue. Her exercise level has remained stable. Intake Vital Signs 05/01/24 14:48 05/10/24 15:40 Height 5 ft 1 in 5 ft 1 in Weight: 169 lb BMI 31.9 BP 127/83 H Blood Pressure Location Lt brachial Position Sitting Respiration 18 Pulse 80 Pulse Source Monitor Pulse Oximetry (%) 99 Intake Visit Reasons: S/P [facility] 05/04 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: No Is patient in pain?: No Allergies adhesive tape Allergy (Verified 05/10/24 15:40) Rash doxazosin Allergy (Verified 05/10/24 15:40) DROPS HEART RATE furosemide (From Lasix) Allergy (Verified 05/10/24 15:40) Itching latex Allergy (Verified 05/10/24 15:40) Rash lisinopril Allergy (Verified 05/10/24 15:40) Angioedema codeine Adverse Reaction (Verified 05/10/24 15:40) Itching oxycodone HCl (From Percocet) Adverse Reaction (Verified 05/10/24 15:40) Itching tramadol HCl (From Ultram) Adverse Reaction (Verified 05/10/24 15:40) Itching Medications ???Medication ???Instructions ???Recorded ???Confirmed ???Type omega-3 fatty acids 500 mg capsule 1,500 mg PO DAILY SUPPLEMENT 10/20/15 05/10/24 History aspirin 81 mg chewable tablet 81 mg PO DAILY@0800 ANTIPLATELET 09/24/16 05/10/24 History cetirizine 10 mg capsule 10 mg PO DAILY 11/02/19 05/10/24 History cyclobenzaprine 5 mg tablet 5 mg PO PRN PRN Muscle Pain 05/06/22 05/10/24 History calcium carbonate-vitamin D3 500 1 cap PO DAILY 06/08/22 05/10/24 History mg (1,250 mg)-50 unit capsule duloxetine 60 mg capsule,delayed 60 mg PO DAILY 07/10/22 05/10/24 History release levothyroxine 50 mcg tablet 50 mcg PO MOTUWETHFRSA 07/10/22 05/10/24 History nitroglycerin 0.4 mg sublingual See Rx Instructions .Route 03/30/23 05/10/24 Rx tablet .COMPLEX #25 tabs buspirone 5 mg tablet 15 mg PO TID MENTAL HEALTH 05/26/23 05/10/24 History amlodipine 10 mg tablet 10 mg PO DAILY #90 tabs 03/28/24 05/10/24 Rx metoprolol tartrate 25 mg tablet 25 mg PO BID #180 tabs 03/28/24 05/10/24 Rx spironolactone 25 mg tablet 25 mg PO DAILY #90 tabs 03/28/24 05/10/24 Rx (Aldactone) estradiol 0.01% (0.1 mg/gram) See Rx Instructions .Route 04/06/24 05/10/24 Rx vaginal cream .COMPLEX #42.5 grams pantoprazole 20 mg tablet,delayed 20 mg PO QDAY 05/10/24 05/10/24 History release rosuvastatin 40 mg tablet (Crestor) 40 mg PO QDAY 05/10/24 05/10/24 History ticagrelor 90 mg tablet (Brilinta) 90 mg PO BID 05/10/24 05/10/24 History Have you fallen in the past year?: No [facility] Medical History (more content not included)... Normal [facility] CBC (HEMOGRAM)on 05-04-2024 Erythrocyte distribution width (RBC) [Ratio] 12.5 % Normal 11.5-15.0 [facility] Comment on above: Performed By: #### L AB15, DLE646, TOJ477, LAB18, [id number], [id number] #### Senior Business Objects Developer: GARY ESPARZA ([id number]) [facility] ([facility]) [address] [place] [address] Hematocrit (Bld) [Volume fraction] 35.0 % Normal 35.0-47.0 [facility] Comment on above: Performed By: #### L AB15, GOV035, FRM708, LAB18, [id number], [id number] #### Senior Business Objects Developer: GARY ESPARZA ([id number]) [facility] ([facility]) [address] [place] [address] Hemoglobin (Bld) [Mass/Vol] 12.1 g/dL Normal 11.7-16.0 [facility] Comment on above: Performed By: #### L AB15, DWQ412, HHI857, LAB18, [id number], [id number] #### Senior Business Objects Developer: GARY ESPARZA ([id number]) [facility]) [address] [place] [address] MCH (RBC) [Entitic mass] 31.7 pg Normal 26.0-34.0 [facility] Comment on above: Performed By: #### L AB15, YHU538, BBR863, LAB18, [id number], [id number] #### Senior Business Objects Developer: GARY ESPARZA ([id number]) [facility]) [address] [place] [address] MCHC 34.6 % Normal 30.5-36.0 [facility] Comment on above: Performed By: #### L AB15, HRV092, UBF354, LAB18, [id number], [id number] #### Senior Business Objects Developer: GARY ESPARZA ([id number]) [facility] ([facility]) [address] [place] [address] MCV (RBC) [Entitic vol] 91.6 fL Normal 77.0-99.0 [facility] Comment on above: Performed By: #### L AB15, JMR898, DYI576, LAB18, [id number], [id number] #### Senior Business Objects Developer: GAYR ESPARZA ([id number]) [facility]) [address] [place] [address] Platelet mean volume (Bld) [Entitic vol] 9.5 fL Normal 9.0-12.7 [facility] Comment on above: Performed By: #### L AB15, ZCD450, AEU248, LAB18, [id number], [id number] #### Senior Business Objects Developer: GARY ESPARZA ([id number]) [facility]) [address] [place] [address] Platelets (Bld) [#/Vol] 214 10*3/uL Normal 140-440 [facility] Comment on above: Performed By: #### L AB15, CYU568, ESE720, LAB18, [id number], [id number] #### Senior Business Objects Developer: GARY ESPARZA ([id number]) [facility] ([facility]) [address] [place] [address] RBC (Bld) [#/Vol] 3.82 10*6/uL Normal 3.80-5.20 [facility] Comment on above: Performed By: #### L AB15, QNF187, SGZ978, LAB18, [id number], [id number] #### Senior Business Objects Developer: GARY ESPARZA ([id number]) [facility] ([facility]) [address] [place] [address] WBC (Bld) [#/Vol] 12.5 10*3/uL High 3.6-10.7 [facility] Comment on above: Performed By: #### L AB15, RUX630, CGN462, LAB18, [id number], [id number] #### Senior Business Objects Developer: GARY ESPARZA ([id number]) [facility] ([facility]) [address] [place] [address] CBC panel Auto (Bld)on 05-04 Erythrocyte distribution width (RBC) [Ratio] 12.5 % 11.5 - 15.0 % [facility] Hematocrit (Bld) [Volume fraction] 35 % 35.0 - 47.0 % [facility] Hemoglobin (Bld) [Mass/Vol] 12.1 g/dL 11.7 - 16.0 g/dL [facility] Interpretation and review of laboratory results Abnormal [facility] MCH (RBC) [Entitic mass] 31.7 pg 26.0 - 34.0 pg [facility] MCHC (RBC) [Mass/Vol] 34.6 % 30.5 - 36.0 % [facility] MCV (RBC) [Entitic vol] 91.6 fL 77.0 - 99.0 fL [facility] Platelet mean volume (Bld) [Entitic vol] 9.5 fL 9.0 - 12.7 fL [facility] Platelets (Bld) [#/Vol] 214 10*3/uL 140 - 440 10*3/uL [facility] RBC (Bld) [#/Vol] 3.82 10*6/uL 3.80 - 5.20 10*6/uL [facility] WBC (Bld) [#/Vol] 12.5 10*3/uL High 3.6 - 10.7 10*3/uL [facility] COMPREHENSIVE METABOLIC PANE Emiliano 05-04-2024 Albumin [Mass/Vol] 4.3 g/dL Normal 3.5-5.0 [facility] Comment on above: Performed By: #### L AB15, YGP159, SJK570, LAB18, [id number], [id number] #### Senior Business Objects Developer: GARY ESPARZA ([id number]) [facility] ([facility]) [address] [place] [address] ALP [Catalytic activity/Vol] 56 U/L Normal 38-126 [facility] Comment on above: Performed By: #### L AB15, TRO790, XAU366, LAB18, [id number], [id number] #### Senior Business Objects Developer: GARY ESPARZA ([id number]) [facility] ([facility]) [address] [place] [address] ALT [Catalytic activity/Vol] 26 U/L Normal 0-34 [facility] Comment on above: Performed By: #### L AB15, QXM234, LOC551, LAB18, [id number], [id number] #### Senior Business Objects Developer: GARY ESPARZA ([id number]) [facility] ([facility]) [address] [place] [address] Anion gap [Moles/Vol] 11 mmol/L Normal 3-13 [facility] Comment on above: Performed By: #### L AB15, HEX856, RQD681, LAB18, [id number], ENT112 #### Senior Business Objects Developer: GARY ESPARZA ([id number]) [facility] ([facility]) [address] [place] [address] AST [Catalytic activity/Vol] 116 U/L High 15-46 [facility] Comment on above: Performed By: #### L AB15, YYK294, BIB108, LAB18, [id number], [id number] #### Senior Business Objects Developer: GARY ESPARZA ([id number]) [facility] ([facility]) [address] [place] [address] Bilirubin [Mass/Vol] 1.4 mg/dL High 0.2-1.3 [facility] Comment on above: Performed By: #### L AB15, HBL207, LIJ525, LAB18, [id number], YJC245 #### Senior Business Objects Developer: GARY ESPARZA ([id number]) [facility] ([facility]) [address] [place] [address] Calcium [Mass/Vol] 9.1 mg/dL Normal 8.4-10.4 [facility] Comment on above: Performed By: #### L AB15, IWJ482, VWJ376, LAB18, [id number], FUH352 #### Senior Business Objects Developer: GARY ESPARZA ([id number]) [facility] ([facility]) [address] [place] [address] Chloride [Moles/Vol] 103 mmol/L Normal 98-107 [facility] Comment on above: Performed By: #### L AB15, VXF936, OXI872, LAB18, [id number], FFY216 #### Senior Business Objects Developer: GARY ESPARZA ([id number]) [facility] ([facility]) [address] [place] [address] CO2 [Moles/Vol] 18 mmol/L Low 22-30 [facility] Comment on above: Performed By: #### L AB15, JUU486, IXQ599, LAB18, [id number], OZF706 #### Senior Business Objects Developer: GARY ESPARZA ([id number]) [facility] ([facility]) [address] [place] [address] Creatinine [Mass/Vol] 0.79 mg/dL Normal 0.52-1.04 [facility] Comment on above: Performed By: #### L AB15, DBD355, MIM689, LAB18, [id number], FLJ152 #### Senior Business Objects Developer: GARY ESPARZA ([id number]) [facility] ([facility]) [address] [place] [address] [place] GLOMERULAR FILTRATION RATE ML/MIN/1.73 SQ M.PREDICTED 81.1 mL/min/1.73m*2 Normal >60.0 [facility] Comment on above: Result Comment: Calc ulation based on the Chronic Kidney Disease Epidemiology Collaboration (CKD-EPI) equation refit without adjustment for race Performed By: #### L AB15, WKZ567, JID381, LAB18, [id number], ZDM473 #### Senior Business Objects Developer: GARY ESPARZA ([id number]) [facility] ([facility]) [address] [place] [address] Glucose [Mass/Vol] 126 mg/dL High 70-100 [facility] Comment on above: Performed By: #### L AB15, BJA266, YNM520, LAB18, [id number], IOQ717 #### Senior Business Objects Developer: GARY ESPARZA ([id number]) [facility] ([facility]) [address] [place] [address] Potassium [Moles/Vol] 4.2 mmol/L Normal 3.5-5.1 [facility] Comment on above: Performed By: #### L AB15, VUN122, ESJ361, LAB18, [id number], LMY359 #### Senior Business Objects Developer: GARY ESPARZA ([id number]) [facility] ([facility]) [address] [place] [address] Protein [Mass/Vol] 7.0 g/dL Normal 6.3-8.2 [facility] Comment on above: Performed By: #### L AB15, DOX253, CHE318, LAB18, [id number], HLB317 #### Senior Business Objects Developer: GARY ESPARZA ([id number]) [facility] ([facility]) [address] [place] [address] Sodium [Moles/Vol] 132 mmol/L Low 135-145 [facility] Comment on above: Performed By: #### L AB15, BAE209, XAV085, LAB18, [id number], DBC237 #### Senior Business Objects Developer: GARY ESPARZA ([id number]) [facility] ([facility]) [address] [place] [address] [place] Urea nitrogen [Mass/Vol] 13 mg/dL Normal 7-17 [facility] Comment on above: Performed By: #### L AB15, LZE810, OHK610, LAB18, [id number], QTJ101 #### Senior Business Objects Developer: GARY ESPARZA ([id number]) [facility] ([facility]) [address] [place] [address] Comprehensive metabolic 1998 panelon 05-04-2024 Albumin [Mass/Vol] 4.3 g/dL 3.5 - 5.0 g/dL [facility] ALP [Catalytic activity/Vol] 56 U/L 38 - 126 U/L [facility] ALT [Catalytic activity/Vol] 26 U/L 0 - 34 U/L [facility] Anion gap [Moles/Vol] 11 mmol/L 3 - 13 mmol/L [facility] AST [Catalytic activity/Vol] 116 U/L High 15 - 46 U/L [facility] Bilirubin [Mass/Vol] 1.4 mg/dL High 0.2 - 1 .3 mg/dL [facility] Calcium [Mass/Vol] 9.1 mg/dL 8.4 - 10. 4 mg/dL [facility] Chloride [Moles/Vol] 103 mmol/L 98 - 10 7 mmol/L [facility] CO2 [Moles/Vol] 18 mmol/L Low 22 - 30 mmol/L [facility] Creatinine [Mass/Vol] 0.79 mg/dL 0.52 - 1.04 mg/dL [facility] GFR/1.73 sq M.predicted (S/P/Bld) [Vol rate/Area] 81.1 mL/min - PINF [facility] Comment on above: Calculation based on the Chronic Kidney Disease Epidemiology Collaboration (CKD-EPI) equation refit without adjustment for race Glucose [Mass/Vol] 126 mg/dL High 70 - 100 mg/dL [facility] Interpretation and review of laboratory results Abnormal [facility] Potassium [Moles/Vol] 4.2 mmol/L 3.5 - 5.1 mmol/L [facility] Protein [Mass/Vol] 7 g/dL 6.3 - 8.2 g/dL [facility] Sodium [Moles/Vol] 132 mmol/L Low 135 - 145 mmol/L [facility] Urea nitrogen [Mass/Vol] 13 mg/dL 7 - 17 mg/dL [facility] ECG 12-LEADon 05-04-2024 ECG 12-LEAD IMPRESSION: Sinus rhythm Probable left atrial enlargement Nonspecific T abnormalities, lateral leads Minimal ST elevation, inferior leads Electronically Signed On 05-04-2024 10:30:48 EST by David Del Castillo [facility] Purple Blue Bo [facility] No Panel InformationOrdered By: David Del Castillo on 05-04-2024 P Altair 52 degrees [employer] Phone: NM Interval 129 ms [employer] Phone: QRS Altair -6 degrees [employer] Work Phone: QRSD Interval 102 ms [employer] Phone: QT Interval 347 ms [employer] Phone: QTC Interval 412 ms [employer] Phone: T Wave Altair 62 degrees [employer] Phone: [employer] Phone: No Panel Informationon 05-04 Sinus rhythm Probable left atrial enlargement Nonspecific T abnormalities, lateral leads Minimal ST elevation, inferior leads Electronically Signed On 05-04-2024 10:30:48 EST by David Del Castillo CV David Santacruz MD - 05/04/2024 IMPRESSION: Sinus rhythm Probable left atrial enlargement Nonspecific T abnormalities, lateral leads Minimal ST elevation, inferior leads Electronically Signed On 05-04-2024 10:30:48 EST by Davidsteve Del Castillo [facility] Nursing Noteon 05-04-2024 Nursing Note Wound Care consulted for Pressure Injury Prevention. Pt's Lake= 20, pt is no longer at risk. Skin Care Precaution order set in place. Will continue to follow peripherally. Please voicera or secure chat message with any questions. Noreen Hunt RN [facility] Progress Noteon 05-04-2024 Progress Note Discharge instructio ns, medications, restrictions, activity, diet, cardiac rehab and follow-up reviewed and patient verbalized understanding. She will utilize [id number]-[id number] for her home-going Rx and was instructed to notify office with any difficulty obtaining Rx or if this becomes a financial burden. She was also informed to notify the office in the future if anyone asks her to hold or stop either ASA or ticagrelor (Brilinta) 90mg BID. Normal [facility] Progress Note Nutrition rescreen completed. Chart reviewed. Patient to be monitored and followed by the diet nuclear worker technician. MIGUE Matos [facility] Progress Note ------- Attestation signed by David Patel MD at 05/04/2024 2:12 PM I, Dr. David Patel, saw and evaluated the patient on 05/04/24 in T1-110/T1-110 A. I personally obtained the forbes and critical portions of the history and physical exam. I reviewed the labs, imaging studies, and electronic medical record. I reviewed the Cord[employer] Sales Representative's documentation, and discussed the patient with the Cordage Sales Representative. I agree with the [employer] Sales Representative's medical decision making and have edited the note to reflect my clinical findings and my assessment and plan. In summary, Ms. Trotter is a 68-year-old woman with a history of coronary artery disease s/p remote CABG, PCI in 2015 and 2019, ELODIA, hypertension, hyperlipidemia, who presents to [facility] with a chief complaint of chest pain. She underwent left heart catheterization, was found to have MVD for which she underwent multivessel PCI to the left main to proximal LAD, mid LAD, and OM. Her course was complicated by hypotension that resolved prior to even arriving in the CCU. TTE showed preserved LV function with some basal inferior wall akinesis. On exam today, she has a hematoma in her right groin that appears quite stable and soft. My overall assessment is that Ms. Trotter presented with ACS, was found to have MVD followed by multivessel PCI, and is stable now. She is on dual antiplatelet therapy, high intensity statin therapy, and today we will discharge her home. David Patel MD, PhD Advanced Heart Failure Cardiology [facility]. [facility] [place] 2:02 PM 05/04/24 [facility] CCU PROGRESS NOTE Patient Name: Nissa Trotter : 1955 Subjective: Hospital Course: This 68-year-old female with a past medical history significant for CAD s/p CABG [2007], previous cardiac catheterization with PCI in , ELODIA, HLD, HTN who presented to [facility] on 05/02 after a cardiac cath at [facility] for consideration of PCI. The patient was transferred to CCU s/p multivessel PCI with vasovagal episode post-procedure. Interval History: This morning, the patient is resting in bed in no acute distress. She denies chest pain/pressure, palpitations, shortness of breath, or any other acute concerns at this time. Review of Systems: Review of Systems Constitutional: Negative for chills and fever. Respiratory: Negative for shortness of breath. Cardiovascular: Negative for chest pain. Gastrointestinal: Negative for abdominal pain. Neurological: Negative for headaches. Inpatient Medications: Scheduled Meds:amLODIPine, 10 mg, Oral, Daily aspirin, 81 mg, Oral, Daily busPIRone, 15 mg, Oral, TID DULoxetine, 60 mg, Oral, Daily influenza, 0.5 mL, IntraMUSCular, Once [Held by provider] isosorbide mononitrate ER, 30 mg, Oral, BID levothyroxine, 50 mcg, Oral, qAM AC metoprolol tartrate, 25 mg, Oral, BID pantoprazole, 20 mg, Oral, Nightly Or pantoprazole (ProtoNix) 40 mg in sodium chloride (PF) 0.9 % 10 mL injection, 40 mg, IntraVENous, Nightly rosuvastatin, 40 mg, Oral, Nightly spironolactone, 25 mg, Oral, Daily ticagrelor, 90 mg, Oral, BID Continuous Infusions:heparin, 5-30 Units/kg/hr, Last Rate: 12 Units/kg/hr (05/02/24 0710) PRN Meds used in the last 24hr: none. Objective: Physical Examination: BP 126/59 Pulse 78 Temp 36.7 ?C (98.1 ?F) (Temporal) Resp 16 Ht 5' 1 (1.549 m) Wt 172 lb 9.9 oz (78.3 kg) SpO2 99% BMI 32.62 kg/m? Intake/Output Summary (Last 24 hours) at 05/04/2024 0647 Last data filed at 05/04/2024 0500 Gross per 24 hour Intake 0 ml Output -- Net 0 ml Physical Exam Constitutional: General: Nissa is not in acute distress. Cardiovascular: Rate and Rhythm: Normal rate and regular rhythm. Pulses: Normal pulses. Heart sounds: Normal heart sounds. No murmur heard. No friction rub. No gallop. Pulmonary: Effort: Pulmonary effort is normal. No respiratory distress. Breath sounds: Normal breath sounds. No wheezing. Skin: General: Skin is warm and dry. Findings: Bruising (right groin at insertion site.) present. Neurological: Mental Status: Nissa is alert. Pertinent Labs: BMP: Lab Results Component Value Date NA 132 (L) 05/04/2024 K 4.2 05/04/2024 CL 103 05/04/2024 CO2 18 (L) 05/04/2024 BUN 13 05/04/2024 CREATININE 0.79 05/04/2024 GLUCOSE 126 (H) 05/04/2024 CALCIUM 9.1 05/04/2024 MG 2.2 05/02/2024 CBC: Lab Results Component Value Date WBC 12.5 (H) 05/04/2024 HGB 12.1 05/04/2024 HCT 35.0 05/04/2024 MCV 91.6 05/04/2024 PLT 214 05/04/2024 Cardiac profile: CK Date Value Ref Range Status 05/03/2024 503 (H) 30 - 170 U/L Final 05/02/2024 74 30 - 170 U/L Final CKMB Date Value Ref Range Status 05/03/2024 49.0 (H) 0.0 - 4.4 ng/mL Laura (more content not included)... Normal [employer] [facility] Vital signsOrdered By: David Del Castillo on 05-04-2024 Heart rate 85 /min bpm [employer] Work Phone: [phone] 05-03-2024 [id number] Care Managment Initi al Assessment Date: 05/03/2024 Patient Name: Nissa Trotter : 1955 Patient Information Source of Information: Patient Cognition/Language: WFL - Within Functional Limits Permission given to speak with patient customer support representative/caregiver as indicated: Yes Confirmation of Payer with patient/family: Yes Payer Name: [facility] : No Confirmation of Primary Care Physician: Confirmed PCP Name: Dr. Boggs Seen in last 2 years?: Yes Primary Caregiver: Self If assistance needed, confirmed caregiver ready, willing and able to care for patient at discharge: Confirmed with: Living Arrangements Current Residence: Apartment Number of Floors 1 Number of Entry Steps: 5 or more (17 in front, 10 in back) Bed/Bath Levels: Both first floor Facility: Facility Name: Plan to Return: Lives with: Alone Support Systems: Children, Family members, Denominational/nathaniel community Activities of Daily Living Ambulation: Independent Bathing/Dressing: Independent Elimination/Continence/Toil eting: Independent Feeding: Independent Who Assists with Activities of Daily Living: Instrumental Activities of Daily Living Prescription Coverage: Yes Pharmacy Used: [facility] Medication Management: Mail order Who assists with medication securing and setup?: mailed to house Transportation/Shopping: Assistance Provider Transportation/Shopping Assistance Provider Name: walks or daughter Transportation Mode: Car Needs Assistance with Transportation at Discharge: No Meal Preparation: Independent Laundry/Cleaning: Independent Finances/Bill Paying: Independent Communication: Independent Types of Care Services/Equipment Utilized Care Services: Dialysis Type: Durable Medical Equipment: Cane, CPap DME Provider: Connie Patient's Goal/Discharge Plan Patient expects to be discharged to: home Discharge Planning Actions: No needs identified Patient's Choice Rights and [employer] and Collaborative Relationships Disclosed as Indicated for Post-Acute Care: Interdisciplinary Team Engagement: Social Work Referral for: Additional Information: Patient admitted to [facility] ICU s/p multivessel PCI. Spoke with patient at bedside, introduced self and role. Patient from home with alone, is independent, has PCP and prescription coverage, will have a ride home and denies discharge needs. Skye Real RN [facility] CBC (HEMOGRAM)on 05-03-2024 Erythrocyte distribution width (RBC) [Ratio] 13.1 % Normal 11.5-15.0 [facility] Comment on above: Performed By: #### L AB15, GZI927, RXX304, LAB18, [id number], [id number] #### Senior Business Objects Developer: GARY ESPARZA ([id number]) [facility]) [address] [place] [address] Hematocrit (Bld) [Volume fraction] 33.6 % Low 35.0-47.0 [facility] Comment on above: Performed By: #### L AB15, IFF308, LKP025, LAB18, [id number], [id number] #### Senior Business Objects Developer: GARY ESPARZA ([id number]) [facility]) [address] [place] [address] Hemoglobin (Bld) [Mass/Vol] 11.6 g/dL Low 11.7-16.0 [facility] Comment on above: Performed By: #### L AB15, ECD652, PVC282, LAB18, [id number], [id number] #### Senior Business Objects Developer: GARY ESPARZA ([id number]) [address] MCH (RBC) [Entitic mass] 31.7 pg Normal 26.0-34.0 [facility] Comment on above: Performed By: #### L AB15, VXC103, BNE327, LAB18, [id number], [id number] #### Senior Business Objects Developer: GARY ESPARZA ([id number]) [facility]) [address] [place] [address] MCHC 34.5 % Normal 30.5-36.0 [facility] Comment on above: Performed By: #### L AB15, FHF934, FSV316, LAB18, [id number], [id number] #### Senior Business Objects Developer: GARY ESPARZA ([id number]) [address] MCV (RBC) [Entitic vol] 91.8 fL Normal 77.0-99.0 [facility] Comment on above: Performed By: #### L AB15, PFD152, KDJ517, LAB18, [id number], [id number] #### Senior Business Objects Developer: GARY ESPARZA ([id number]) [facility] ([facility]) [address] [place] [address] Platelet mean volume (Bld) [Entitic vol] 10.2 fL Normal 9.0-12.7 [facility] Comment on above: Performed By: #### L AB15, POD562, GFF242, LAB18, [id number], [id number] #### Senior Business Objects Developer: GARY ESPARZA ([id number]) [facility] ([facility]) [address] [place] [address] Platelets (Bld) [#/Vol] 219 10*3/uL Normal 140-440 [facility] Comment on above: Performed By: #### L AB15, FZU207, BTP213, LAB18, [id number], [id number] #### Senior Business Objects Developer: GARY ESPARZA ([id number]) [facility] ([facility]) [address] [place] [address] RBC (Bld) [#/Vol] 3.66 10*6/uL Low 3.80-5.20 [facility] Comment on above: Performed By: #### L AB15, YDL037, HLD384, LAB18, [id number], [id number] #### Senior Business Objects Developer: GARY ESPARZA ([id number]) [facility] ([facility]) [address] [place] [address] WBC (Bld) [#/Vol] 11.9 10*3/uL High 3.6-10.7 [facility] Comment on above: Performed By: #### L AB15, UMZ379, OQB873, LAB18, [id number], [id number] #### Senior Business Objects Developer: GARY ESPARZA ([id number]) [facility] ([facility]) [address] [place] [address] CBC panel Auto (Bld)on 05-03 Erythrocyte distribution width (RBC) [Ratio] 13.1 % 11.5 - 15.0 % [facility] Hematocrit (Bld) [Volume fraction] 33.6 % Low 35.0 - 47.0 % [facility] Hemoglobin (Bld) [Mass/Vol] 11.6 g/dL Low 11.7 - 16.0 g/dL [facility] Interpretation and review of laboratory results Abnormal [facility] MCH (RBC) [Entitic mass] 31.7 pg 26.0 - 34.0 pg [facility] MCHC (RBC) [Mass/Vol] 34.5 % 30.5 - 36.0 % [facility] MCV (RBC) [Entitic vol] 91.8 fL 77.0 - 99.0 fL [facility] Platelet mean volume (Bld) [Entitic vol] 10.2 fL 9.0 - 12.7 fL [facility] Platelets (Bld) [#/Vol] 219 10*3/uL 140 - 440 10*3/uL [facility] RBC (Bld) [#/Vol] 3.66 10*6/uL Low 3.80 - 5.20 10*6/uL [facility] WBC (Bld) [#/Vol] 11.9 10*3/uL High 3.6 - 10.7 10*3/uL [facility] CK TOTAL AND CKMBon 05-03-20 24 CK [Catalytic activity/Vol] 503 U/L High 30-170 [facility] Comment on above: Performed By: #### L AB15, CVF955, VEA105, LAB18, [id number], [id number] #### Senior Business Objects Developer: GARY ESPARZA ([id number]) [facility] ([facility]) [address] [place] [address] CK.MB [Mass/Vol] 49.0 ng/mL High 0.0-4.4 [facility] Comment on above: Performed By: #### L AB15, MKT105, FNR649, LAB18, [id number], [id number] #### Senior Business Objects Developer: GARY ESPARZA ([id number]) [facility] ([facility]) [address] [place] [address] RELATIVE INDEX 9.7 High 0.0-3.0 [facility] Comment on above: Performed By: #### L AB15, QQE658, DVH672, LAB18, [id number], [id number] #### Senior Business Objects Developer: GARY ESPARZA ([id number]) [facility]) [address] [place] [address] CK.total/Creatine kinase.MB [Catalytic ratio]on 05-03-2024 CK [Catalytic activity/Vol] 503 U/L High 30 - 170 U/L [facility] CK.MB [Mass/Vol] 49 ng/mL High 0.0 - 4.4 ng/mL [facility] Interpretation and review of laboratory results Abnormal [facility] RELATIVE INDEX 9.7 High 0.0 - 3.0 [facility] COMPREHENSIVE METABOLIC PANE Emiliano 05-03-2024 Albumin [Mass/Vol] 4.2 g/dL Normal 3.5-5.0 [facility] Comment on above: Performed By: #### L AB15, SQP333, BIN395, LAB18, [id number], EHF183 #### Senior Business Objects Developer: GARY ESPARZA ([id number]) [facility] ([facility]) [address] [place] [address] ALP [Catalytic activity/Vol] 53 U/L Normal 38-126 [facility] Comment on above: Performed By: #### L AB15, ATP939, AMJ877, LAB18, [id number], [id number] #### Senior Business Objects Developer: GARY ESPARZA ([id number]) [facility]) [address] [place] [address] ALT [Catalytic activity/Vol] 23 U/L Normal 0-34 [facility] Comment on above: Performed By: #### L AB15, CAT723, KWT983, LAB18, [id number], [id number] #### Senior Business Objects Developer: GARY ESPARZA ([id number]) [facility]) [address] [place] [address] Anion gap [Moles/Vol] 6 mmol/L Normal 3-13 [facility] Comment on above: Performed By: #### L AB15, MSS368, XBU875, LAB18, [id number], [id number] #### Senior Business Objects Developer: GARY ESPARZA ([id number]) [facility] [address] [place] [address] [place] AST [Catalytic activity/Vol] 93 U/L High 15-46 [facility] Comment on above: Performed By: #### L AB15, QOM273, IRG908, LAB18, [id number], [id number] #### Senior Business Objects Developer: GARY ESPARZA ([id number]) [facility] ([facility] [address] [place] [address] Bilirubin [Mass/Vol] 1.4 mg/dL High 0.2-1.3 [facility] Comment on above: Performed By: #### L AB15, HVZ236, HYR607, LAB18, [id number], MZI205 #### Senior Business Objects Developer: GARY ESPARZA ([id number]) [facility] ([facility]) [address] [place] [address] Calcium [Mass/Vol] 9.2 mg/dL Normal 8.4-10.4 [facility] Comment on above: Performed By: #### L AB15, XNZ321, EEQ260, LAB18, [id number], LCZ238 #### Senior Business Objects Developer: GARY ESPARZA ([id number]) [facility] ([facility]) [address] [place] [address] [place] Chloride [Moles/Vol] 108 mmol/L High 98-107 [facility] Comment on above: Performed By: #### L AB15, OTJ008, XJW263, LAB18, [id number], TVU098 #### Senior Business Objects Developer: GARY ESPARZA ([id number]) [facility] ([facility]) [address] [place] [address] [place] CO2 [Moles/Vol] 21 mmol/L Low 22-30 [facility] Comment on above: Performed By: #### L AB15, FTP524, YNE392, LAB18, [id number], [id number] #### Senior Business Objects Developer: GARY ESPARZA ([id number]) [facility] ([facility]) [address] [place] [address] [place] Creatinine [Mass/Vol] 0.81 mg/dL Normal 0.52-1.04 [facility] Comment on above: Performed By: #### L AB15, XMD952, CSX423, LAB18, [id number], [id number] #### Senior Business Objects Developer: GARY ESPARZA ([id number]) [facility] ([facility]) [address] [place] [address] [place] GLOMERULAR FILTRATION RATE ML/MIN/1.73 SQ M.PREDICTED 78.7 mL/min/1.73m*2 Normal >60.0 [facility] Comment on above: Result Comment: Calc ulation based on the Chronic Kidney Disease Epidemiology Collaboration (CKD-EPI) equation refit without adjustment for race Performed By: #### L AB15, LXO532, MXM490, LAB18, [id number], [id number] #### Senior Business Objects Developer: GARY ESPARZA ([id number]) [facility] ([facility]) [address] [place] [address] Glucose [Mass/Vol] 119 mg/dL High 70-100 [facility] Comment on above: Performed By: #### L AB15, GCT243, UYU800, LAB18, [id number], [id number] #### Senior Business Objects Developer: GARY ESPARZA ([id number]) [facility] ([facility]) [address] [place] [address] [place] Potassium [Moles/Vol] 4.9 mmol/L Normal 3.5-5.1 [facility] Comment on above: Performed By: #### L AB15, IJZ991, DAZ284, LAB18, [id number], [id number] #### Senior Business Objects Developer: GARY ESPARZA ([id number]) [facility] ([facility]) [address] [place] [address] Protein [Mass/Vol] 6.8 g/dL Normal 6.3-8.2 [facility] Comment on above: Performed By: #### L AB15, QJK807, EQE018, LAB18, [id number], [id number] #### Senior Business Objects Developer: GARY ESPARZA ([id number]) [facility]) [address] [place] [address] [place] Sodium [Moles/Vol] 135 mmol/L Normal 135-145 [facility] Comment on above: Performed By: #### L AB15, IYA699, RTK838, LAB18, [id number], [id number] #### Senior Business Objects Developer: GARY ESPARZA ([id number]) [facility] ([facility]) [address] [place] [address] Urea nitrogen [Mass/Vol] 15 mg/dL Normal 7-17 [facility] Comment on above: Performed By: #### L AB15, FRS745, LBS257, LAB18, [id number], [id number] #### Senior Business Objects Developer: GARY ESPARZA ([id number]) [facility] ([facility]) [address] [place] [address] Comprehensive metabolic 1998 panelon 05-03-2024 Albumin [Mass/Vol] 4.2 g/dL 3.5 - 5.0 g/dL [facility] ALP [Catalytic activity/Vol] 53 U/L 38 - 126 U/L [facility] ALT [Catalytic activity/Vol] 23 U/L 0 - 34 U/L [facility] Anion gap [Moles/Vol] 6 mmol/L 3 - 13 mmol/L [facility] AST [Catalytic activity/Vol] 93 U/L High 15 - 46 U/L [facility] Bilirubin [Mass/Vol] 1.4 mg/dL High 0.2 - 1 .3 mg/dL [facility] Calcium [Mass/Vol] 9.2 mg/dL 8.4 - 10. 4 mg/dL [facility] Chloride [Moles/Vol] 108 mmol/L High 98 - 10 7 mmol/L [facility] CO2 [Moles/Vol] 21 mmol/L Low 22 - 30 mmol/L [facility] Creatinine [Mass/Vol] 0.81 mg/dL 0.52 - 1.04 mg/dL [facility] GFR/1.73 sq M.predicted (S/P/Bld) [Vol rate/Area] 78.7 mL/min - PINF [facility] Comment on above: Calculation based on the Chronic Kidney Disease Epidemiology Collaboration (CKD-EPI) equation refit without adjustment for race Glucose [Mass/Vol] 119 mg/dL High 70 - 100 mg/dL [facility] Interpretation and review of laboratory results Abnormal [facility] Potassium [Moles/Vol] 4.9 mmol/L 3.5 - 5.1 mmol/L [facility] Protein [Mass/Vol] 6.8 g/dL 6.3 - 8.2 g/dL [facility] Sodium [Moles/Vol] 135 mmol/L 135 - 145 mmol/L [facility] Urea nitrogen [Mass/Vol] 15 mg/dL 7 - 17 mg/dL [facility] ECG 12-LEADon 05-03-2024 ECG 12-LEAD IMPRESSION: Sinus rhythm Multiple ventricular premature complexes Borderline prolonged QT interval Electronically Signed On 05-03-2024 08:03:37 EST by [facility] 12-LEAD IMPRESSION: Sinus rhythm ST elevations suggest acute anterior and inferior wall injury Electronically Signed On 05-03-2024 08:00:12 EST by [facility] ECG 12-LEAD IMPRESSION: Sinus rhythm Probable left atrial enlargement ST elevation, consider anterior and inferior wall injury Electronically Signed On 05-03-2024 07:58:34 EST by [facility] ECG 12-LEAD IMPRESSION: Sinus rhythm Probable left atrial enlargement Low voltage, extremity leads ST elevations consider anterior wall and inferior wall injury Electronically Signed On 05-03-2024 07:58:05 EST [facility] 12-LEAD IMPRESSION: Sinus rhythm Electronically Signed On 05-03-2024 07:53:01 EST by [facility] ECG 12-LEAD IMPRESSION: Sinus rhythm Atrial premature complex Low voltage, extremity leads Electronically Signed On 05-03-2024 07:44:31 EST by [facility] Laboratory - Chemistry and C hemistry - challengeon 05-03-2024 Troponin I.cardiac [Mass/Vol] 11.8 ng/mL Critically high NINF - 0.034 ng/mL [facility] No Panel InformationOrdered By: Dez Mena on 05-03-2024 P [place] 62 degrees [facility] [employer] Work Phone: NM Interval 151 ms [facility] [employer] Work Phone: QRS [place]ir 8 degrees [facility] [employer] Work Phone: QRSD Interval 102 ms [facility] Work Phone: QT Interval 445 ms [facility] Work Phone: QTC Interval 489 ms [facility] Work Phone: T Wave [place] 14 degrees [facility] Work Phone: [facility] [employer] Work Phone: No Panel Informationon 05-03 Sinus rhythm Multiple ventricular premature complexes Borderline prolonged QT interval Electronically Signed On 05-03-2024 08:03:37 EST by Dez Mcdonald MD - 05/03/2024 IMPRESSION: Sinus rhythm Multiple ventricular premature complexes Borderline prolonged QT interval Electronically Signed On 05-03-2024 08:03:37 EST by Dez Mena [facility] P [place] 57 degrees [facility] NM Interval 155 ms [facility] QRS [place] 33 degrees [facility] QRSD Interval 92 ms [facility] QT Interval 422 ms [facility] QTC Interval 473 ms [facility] T Wave [place] 71 degrees [facility] Sinus rhythm ST elevations suggest acute anterior and inferior wall injury Electronically Signed On 05-03-2024 08:00:12 EST by Dez Mcdonald MD - 05/03/2024 IMPRESSION: Sinus rhythm ST elevations suggest acute anterior and inferior wall injury Electronically Signed On 05-03-2024 08:00:12 EST by Dez Mena [facility] P [place] 62 degrees [facility] NM Interval 140 ms [facility] QRS [place] 28 degrees [facility] QRSD Interval 99 ms [facility] QT Interval 417 ms [facility] QTC Interval 475 ms [facility] T Wave [place] 70 degrees [facility] Sinus rhythm Probable left atrial enlargement ST elevation, consider anterior and inferior wall injury Electronically Signed On 05-03-2024 07:58:34 EST by Dez Mcdonald MD - 05/03/2024 IMPRESSION: Sinus rhythm Probable left atrial enlargement ST elevation, consider anterior and inferior wall injury Electronically Signed On 05-03-2024 07:58:34 EST by Dez Mena [facility] P [place] 60 degrees [facility] NM Interval 145 ms [facility] QRS [place] 20 degrees [facility] QRSD Interval 96 ms [facility] QT Interval 413 ms [facility] QTC Interval 471 ms [facility] T Wave [place] 64 degrees [facility] Sinus rhythm Probable left atrial enlargement Low voltage, extremity leads ST elevations consider anterior wall and inferior wall injury Electronically Signed On 05-03-2024 07:58:05 EST by Dez Mcdonald MD - 05/03/2024 IMPRESSION: Sinus rhythm Probable left atrial enlargement Low voltage, extremity leads ST elevations consider anterior wall and inferior wall injury Electronically Signed On 05-03-2024 07:58:05 EST by Dez Mena [facility] P [place] 61 degrees [facility] NM Interval 149 ms [facility] QRS [place] 7 degrees [facility] QRSD Interval 103 ms [facility] QT Interval 463 ms [facility] QTC Interval 471 ms [facility] T Wave [place] 53 degrees [facility] Sinus rhythm Electronically Signed On 05-03-2024 07:53:01 EST by Dez Mcdonald MD - 05/03/2024 IMPRESSION: Sinus rhythm Electronically Signed On 05-03-2024 07:53:01 EST by Dez Mena [facility] P [place] 55 degrees [facility] NM Interval 148 ms [facility] QRS Altair -7 degrees [facility] QRSD Interval 97 ms [facility] QT Interval 407 ms [facility] QTC Interval 423 ms [facility] T Wave [place] 46 degrees [facility] Sinus rhythm Atrial premature complex Low voltage, extremity leads Electronically Signed On 05-03-2024 07:44:31 EST by Dez Mcdonald MD - 05/03/2024 IMPRESSION: Sinus rhythm Atrial premature complex Low voltage, extremity leads Electronically Signed On 05-03-2024 07:44:31 EST by Dez Mena [facility] Progress Noteon 05-03-2024 Progress Note ------- Attestation signed by David Patel MD at 05/03/2024 2:11 PM I, Dr. David Patel, saw and evaluated the patient on 05/03/24 in T1-110/T1110 A. I personally obtained the forbes and critical portions of the history and physical exam. I reviewed the labs, imaging studies, and electronic medical record. I reviewed the [employer] Sales Representative's documentation, and discussed the patient with the [employer] Sales Representative. I agree with the [employer] Sales Representative's medical decision making and have edited the note to reflect my clinical findings and my assessment and plan. In summary, Ms. Trotter is a 68-year-old woman with a history of coronary artery disease status post remote CABG, PCI in 2015 and 2019, ELODIA, hypertension, hyperlipidemia, who presents to [facility] with a chief complaint of chest pain. She underwent left heart catheterization yesterday, was found to have multivessel coronary artery disease for which she underwent multivessel PCI to the left main to proximal LAD, mid LAD, and OM. Her course was complicated by hypotension that resolved prior to even arriving in the CCU. EKG this morning shows sinus rhythm with nonspecific T wave changes. Transthoracic echocardiogram showed preserved LV function with some basal inferior wall akinesis. On exam today, she has a hematoma in her right groin that appears quite stable and soft. My overall assessment is that Ms. Trotter presented with acute coronary syndrome, was found to have multivessel disease followed by multivessel PCI, and is stable now. She is on dual antiplatelet therapy, high intensity statin therapy, and today we will monitor her today and discharge her tomorrow if she is stable. David Patel MD, PhD Advanced Heart Failure Cardiology [facility] [place] 2:11 PM 05/03/24 [facility] [place] [facility] CCU PROGRESS NOTE Patient Name: Nissa Trotter : 1955 Subjective: Hospital Course: This 68-year-old female with a past medical history significant for CAD s/p CABG [2008], previous cardiac catheterization with PCI in , ELODIA, HLD, HTN who presented to [facility] on 05/02 after a cardiac cath at [facility] for consideration of PCI. The patient was transferred to CCU s/p multivessel PCI with vasovagal episode post-procedure. Interval History: Overnight, the patient with vasovagal symptoms that resolved on their own. This morning, the patient is resting in bed in no acute distress. She denies chest pain/pressure, palpitations, shortness of breath, or any other acute concerns at this time. Review of Systems: Review of Systems Constitutional: Negative for chills and fever. Respiratory: Negative for shortness of breath. Cardiovascular: Negative for chest pain and palpitations. Gastrointestinal: Negative for abdominal pain. Neurological: Negative for headaches. Inpatient Medications: Scheduled Meds:amLODIPine, 10 mg, Oral, Daily aspirin, 81 mg, Oral, Daily busPIRone, 15 mg, Oral, TID DULoxetine, 60 mg, Oral, Daily influenza, 0.5 mL, IntraMUSCular, Once [Held by provider] isosorbide mononitrate ER, 30 mg, Oral, BID levothyroxine, 50 mcg, Oral, qAM AC metoprolol tartrate, 25 mg, Oral, BID pantoprazole, 20 mg, Oral, Nightly Or pantoprazole (ProtoNix) 40 mg in sodium chloride (PF) 0.9 % 10 mL injection, 40 mg, IntraVENous, Nightly rosuvastatin, 40 mg, Oral, Nightly spironolactone, 25 mg, Oral, Daily ticagrelor, 90 mg, Oral, BID Continuous Infusions:heparin, 5-30 Units/kg/hr, Last Rate: 12 Units/kg/hr (05/02/24 0710) norepinephrine in sodium chloride 0.9 %, 2-50 mcg/min PRN Meds used in the last 24hr: Acetaminophen 650 mg Nitroglycerin SL 0.4 mg Objective: Physical Examination: BP 136/72 Pulse 78 Temp 36.9 ?C (98.5 ?F) (Oral) Resp 17 Ht 5' 1 (1.549 m) Wt 171 lb 8.3 oz (77.8 kg) SpO2 99% BMI 32.41 kg/m? Intake/Output Summary (Last 24 hours) at 05/03/2024 0716 Last data filed at 05/03/2024 0600 Gross per 24 hour Intake 130 ml Output 1205 ml Net -1075 ml Physical Exam Constitutional: General: She is not in acute distress. Cardiovascular: Rate and Rhythm: Normal rate and regular rhythm. Heart sounds: No murmur heard. No friction rub. No gallop. Pulmonary: Effort: Pulmonary effort is normal. No respiratory distress. Breath sounds: Normal breath sounds. Skin: General: Skin is warm and dry. Findings: Bruising (right groin access site) present. Neurological: Mental Status: She is alert. Pertinent Labs: BMP: Lab Results Component Value Date NA 135 05/03/2024 K 4.9 05/03/2024 CL 108 (H) 05/03/2024 CO2 21 (L) 05/03/2024 BUN 15 05/03/2024 CREATININE 0.81 05/03/2024 GLUCOSE 119 (H) 05/03/2024 CALCIUM 9.2 05/03/2024 MG 2.2 05/02/2024 CB (more content not included)... Normal [facility] TROPONIN Ion 05-03-2024 Troponin I.cardiac [Mass/Vol] 11.800 ng/mL Critically high <0.034 [facility] Comment on above: Result Comment: VIDA Benitez COMMENTS: Patients with high levels of Biotin oral intake (ie >5 mg/day) may have falsely decreased Troponin levels. Performed By: #### L AB15, DIH984, UGL005, LAB18, [id number], [id number] #### Senior Business Objects Developer: GARY ESPARZA ([id number]) [facility] ([facility]) [address] [place] [address] Troponin I.cardiac [Mass/Vol ]on 05-03-2024 Interpretation and review of laboratory results Abnormal [facility] Patients with high l evels of Biotin oral intake (ie >5 mg/day) may have falsely decreased Troponin levels. [facility] Vital signsOrdered By: Jolynn Mena on 05-03-2024 Heart rate 69 /min bpm [facility] Work Phone: Vital signson 05-03-2024 Heart rate 75 /min bpm [facility] Heart rate 78 /min bpm [facility] Heart rate 78 /min bpm [facility] Heart rate 62 /min bpm [facility] Heart rate 66 /min bpm [facility] 30on 05-02-2024 30 Problem: Pain - Adul t Goal: Verbalizes/displays adequate comfort level or baseline comfort level Outcome: Progressing Problem: Safety - Adult Goal: Free from fall injury Outcome: Progressing Problem: Discharge Planning Goal: Discharge to home or other facility with appropriate resources Outcome: Progressing Problem: Chronic Conditions and Co-morbidities Goal: Patient's chronic conditions and co-morbidity symptoms are monitored and maintained or improved Outcome: Progressing Problem: Knowledge Deficit Goal: Patient/family/caregiver demonstrates understanding of disease process, treatment plan, medications, and discharge instructions Outcome: Progressing Problem: Potential for Compromised Skin Integrity Goal: Skin Integrity is Maintained or Improved Outcome: Progressing Goal: Nutritional status is improving Outcome: Progressing Problem: Urinary Incontinence Goal: Perineal skin integrity is maintained or improved Outcome: Progressing Problem: Potential for Falls Goal: I will remain free of falls Outcome: Progressing Problem: Discharge Barriers Goal: My discharge needs are met Outcome: Progressing Normal [facility] APTTon 05-02-2024 aPTT Coag (Bld) [Time] 70.3 s High 20.0-30.5 [facility] Comment on above: Result Comment: VIDA Benitez COMMENTS: NOTE: The therapeutic time for Heparin anticoagulation, based on Xa activity inhibition, is an APTT of 46-80 seconds. Performed By: #### L AB325 #### Senior Business Objects Developer: GARY ESPARZA ([id number]) [facility] ([address] aPTT Coag (Bld) [Time] 25.6 s Normal 20.0-30.5 [facility] Comment on above: Result Comment: VIDA Benitez COMMENTS: NOTE: The therapeutic time for Heparin anticoagulation, based on Xa activity inhibition, is an APTT of 46-80 seconds. Performed By: #### L AB15, NOC041, GNR569, LAB18, [id number], [id number] #### Senior Business Objects Developer: GARY ESPARZA ([id number]) [facility]) [address] [place] [address] Anesthesia Noteon 05-02-2024 Anesthesia Note Sedation Plan ASA class 3 - patient with severe systemic disease Mallampati class: II - soft palate, uvula, fauces visible. Sedation plan: local anesthesia and moderate (conscious sedation) Risks, benefits, and alternatives discussed with patient. Plan discussed with attending. Immediate reassessment prior to sedation: Patient's status reviewed and vital signs assessed; acceptable to perform procedure and proceed to administer sedation as planned. Normal [facility] BASIC METABOLIC PANELon 11 Anion gap [Moles/Vol] 13 mmol/L Normal 3-13 [facility] Comment on above: Performed By: #### L AB15, KPY743, MQP831, LAB18, [id number], [id number] #### Senior Business Objects Developer: GARY ESPARZA ([id number]) [facility] ([facility]) [address] [place] [address] Calcium [Mass/Vol] 9.0 mg/dL Normal 8.4-10.4 [facility] Comment on above: Performed By: #### L AB15, XLV564, CIV144, LAB18, [id number], DGB601 #### Senior Business Objects Developer: GARY ESPARZA ([id number]) [facility] ([facility]) [address] [place] [address] Chloride [Moles/Vol] 107 mmol/L Normal 98-107 [facility] Comment on above: Performed By: #### L AB15, ZXE779, VWD634, LAB18, [id number], [id number] #### Senior Business Objects Developer: GARY ESPARZA ([id number]) [facility]) [address] [place] [address] CO2 [Moles/Vol] 17 mmol/L Low 22-30 [facility] Comment on above: Performed By: #### L AB15, JUX722, YKW632, LAB18, [id number], [id number] #### Senior Business Objects Developer: GARY ESPARZA ([id number]) [facility] ([facility]) [address] [place] [address] Creatinine [Mass/Vol] 0.93 mg/dL Normal 0.52-1.04 [facility] Comment on above: Performed By: #### L AB15, RVY558, UNJ444, LAB18, [id number], UUP227 #### Senior Business Objects Developer: GARY ESPARZA ([id number]) [facility] ([facility]) [address] [place] [address] GLOMERULAR FILTRATION RATE ML/MIN/1.73 SQ M.PREDICTED 66.7 mL/min/1.73m*2 Normal >60.0 [facility] Comment on above: Result Comment: Calc ulation based on the Chronic Kidney Disease Epidemiology Collaboration (CKD-EPI) equation refit without adjustment for race Performed By: #### L AB15, HGZ286, OVO718, LAB18, [id number], [id number] #### Senior Business Objects Developer: GARY ESPARZA ([id number]) [facility] ([facility]) [address] [place] [address] [place] Glucose [Mass/Vol] 134 mg/dL High 70-100 [facility] Comment on above: Performed By: #### L AB15, GSK273, QKC116, LAB18, [id number], [id number] #### Senior Business Objects Developer: GARY ESPARZA ([id number]) [facility] ([facility]) [address] [place] [address] [place] Potassium [Moles/Vol] 3.8 mmol/L Normal 3.5-5.1 [facility] Comment on above: Performed By: #### L AB15, UFT943, PAL825, LAB18, [id number], [id number] #### Senior Business Objects Developer: GARY ESPARZA ([id number]) [facility]) [address] [place] [address] Sodium [Moles/Vol] 137 mmol/L Normal 135-145 [facility] Comment on above: Performed By: #### L AB15, JJU183, EQO180, LAB18, [id number], JMC092 #### Senior Business Objects Developer: GARY ESPARZA ([id number]) [facility] ([facility]) [address] [place] [address] Urea nitrogen [Mass/Vol] 14 mg/dL Normal 7-17 [facility] Comment on above: Performed By: #### L AB15, EUZ647, SSA181, LAB18, [id number], [id number] #### Senior Business Objects Developer: GARY ESPARZA ([id number]) [facility] ([facility]) [address] [place] [address] Anion gap [Moles/Vol] 15 mmol/L High 3-13 [facility] Comment on above: Performed By: #### L AB15, TGO630, CFN320, LAB18, [id number], [id number] #### Senior Business Objects Developer: GARY ESPARZA ([id number]) [facility] ([facility]) [address] [place] [address] Calcium [Mass/Vol] 9.8 mg/dL Normal 8.4-10.4 [facility] Comment on above: Performed By: #### L AB15, ZLP708, GMN955, LAB18, [id number], [id number] #### Senior Business Objects Developer: GARY ESPARZA ([id number]) [facility] ([facility]) [address] [place] [address] [place] Chloride [Moles/Vol] 106 mmol/L Normal 98-107 [facility] Comment on above: Performed By: #### L AB15, REG103, XRT160, LAB18, [id number], [id number] #### Senior Business Objects Developer: AGRY ESPARZA ([id number]) [facility] ([facility]) [address] [place] [address] [place] CO2 [Moles/Vol] 17 mmol/L Low 22-30 [facility] Comment on above: Performed By: #### L AB15, JPE504, BAP130, LAB18, [id number], [id number] #### Senior Business Objects Developer: GARY ESPARZA ([id number]) [facility] ([facility]) [address] [place] [address] [place] Creatinine [Mass/Vol] 0.77 mg/dL Normal 0.52-1.04 [facility] Comment on above: Performed By: #### L AB15, ISQ480, BHV753, LAB18, [id number], CLR971 #### Senior Business Objects Developer: GARY ESPARZA ([id number]) [facility] ([facility]) [address] [place] [address] [place] GLOMERULAR FILTRATION RATE ML/MIN/1.73 SQ M.PREDICTED 83.6 mL/min/1.73m*2 Normal >60.0 [facility] Comment on above: Result Comment: Calc ulation based on the Chronic Kidney Disease Epidemiology Collaboration (CKD-EPI) equation refit without adjustment for race Performed By: #### L AB15, AAE494, PSX371, LAB18, [id number], [id number] #### Senior Business Objects Developer: GARY ESPARZA ([id number]) [facility]) [address] [place] [address] Glucose [Mass/Vol] 112 mg/dL High 70-100 [facility] Comment on above: Performed By: #### L AB15, HFW815, KJM305, LAB18, [id number], [id number] #### Senior Business Objects Developer: GARY ESPARZA ([id number]) [facility] ([facility]) [address] [place] [address] Potassium [Moles/Vol] 3.6 mmol/L Normal 3.5-5.1 [facility] Comment on above: Performed By: #### L AB15, GDK637, XBL084, LAB18, [id number], [id number] #### Senior Business Objects Developer: GARY ESPARZA ([id number]) [facility]) [address] [place] [address] [place] Sodium [Moles/Vol] 138 mmol/L Normal 135-145 [facility] Comment on above: Performed By: #### L AB15, NYT706, FIU620, LAB18, [id number], HBA805 #### Senior Business Objects Developer: GARY ESPARZA ([id number]) [facility]) [address] [place] [address] [place] Urea nitrogen [Mass/Vol] 15 mg/dL Normal 7-17 [facility] Comment on above: Performed By: #### L AB15, OVT693, TBF590, LAB18, [id number], [id number] #### Senior Business Objects Developer: GARY ESPARZA ([id number]) [facility] ([facility]) [address] [place] [address] Basic metabolic 1997 panelOr dered By: Fatoumata Moy on 05-02-2024 Anion gap [Moles/Vol] 13 mmol/L 3 - 13 mmol/L [facility] Calcium [Mass/Vol] 9 mg/dL 8.4 - 10. 4 mg/dL [facility] Chloride [Moles/Vol] 107 mmol/L 98 - 10 7 mmol/L [facility] CO2 [Moles/Vol] 17 mmol/L Low 22 - 30 mmol/L [facility] Creatinine [Mass/Vol] 0.93 mg/dL 0.52 - 1.04 mg/dL [facility] GFR/1.73 sq M.predicted (S/P/Bld) [Vol rate/Area] 66.7 mL/min - PINF [facility] Comment on above: Calculation based on the Chronic Kidney Disease Epidemiology Collaboration (CKD-EPI) equation refit without adjustment for race Glucose [Mass/Vol] 134 mg/dL High 70 - 100 mg/dL [facility] Interpretation and review of laboratory results Abnormal [facility] Potassium [Moles/Vol] 3.8 mmol/L 3.5 - 5.1 mmol/L [facility] Sodium [Moles/Vol] 137 mmol/L 135 - 145 mmol/L [facility] Urea nitrogen [Mass/Vol] 14 mg/dL 7 - 17 mg/dL [facility] Basic metabolic 1998 panelon 05-02-2024 Anion gap [Moles/Vol] 15 mmol/L High 3 - 13 mmol/L [facility] Calcium [Mass/Vol] 9.8 mg/dL 8.4 - 10. 4 mg/dL [facility] Chloride [Moles/Vol] 106 mmol/L 98 - 10 7 mmol/L [facility] CO2 [Moles/Vol] 17 mmol/L Low 22 - 30 mmol/L [facility] Creatinine [Mass/Vol] 0.77 mg/dL 0.52 - 1.04 mg/dL [facility] GFR/1.73 sq M.predicted (S/P/Bld) [Vol rate/Area] 83.6 mL/min - PINF [facility] Comment on above: Calculation based on the Chronic Kidney Disease Epidemiology Collaboration (CKD-EPI) equation refit without adjustment for race Glucose [Mass/Vol] 112 mg/dL High 70 - 100 mg/dL [facility] Interpretation and review of laboratory results Abnormal [facility] Potassium [Moles/Vol] 3.6 mmol/L 3.5 - 5.1 mmol/L [facility] Sodium [Moles/Vol] 138 mmol/L 135 - 145 mmol/L [facility] Urea nitrogen [Mass/Vol] 15 mg/dL 7 - 17 mg/dL [facility] CBC W Auto Differential pane l (Bld)Ordered By: Renee Cohen on 05-02-2024 Basophils (Bld) [#/Vol] 0 10*3/uL 0.0 - 0.2 10*3/uL [facility] Basophils/100 WBC (Bld) 0.3 % 0.0 - 2.0 % [facility] Eosinophils (Bld) [#/Vol] 0.1 10*3/uL 0.0 - 0.5 10*3/uL [facility] Eosinophils/100 WBC (Bld) 1.3 % 0.0 - 6.0 % [facility] Erythrocyte distribution width (RBC) [Ratio] 12.6 % 11.5 - 15.0 % [facility] Hematocrit (Bld) [Volume fraction] 31.7 % Low 35.0 - 47.0 % [facility] Hemoglobin (Bld) [Mass/Vol] 11 g/dL Low 11.7 - 16.0 g/dL [facility] Immature granulocytes (Bld) [#/Vol] 0 10*3/uL NINF - 0.1 10*3/uL [facility] Immature granulocytes/100 WBC (Bld) 0.4 % 0.0 - 2.0 % [facility] Interpretation and review of laboratory results Abnormal [facility] Lymphocytes (Bld) [#/Vol] 1.4 10*3/uL 1.0 - 4.3 10*3/uL [facility] Lymphocytes/100 WBC (Bld) 13.4 % Low 15.0 - 45.0 % [facility] MCH (RBC) [Entitic mass] 31.4 pg 26.0 - 34.0 pg [facility] MCHC (RBC) [Mass/Vol] 34.7 % 30.5 - 36.0 % [facility] MCV (RBC) [Entitic vol] 90.6 fL 77.0 - 99.0 fL [facility] Monocytes (Bld) [#/Vol] 0.6 10*3/uL 0.0 - 0.9 10*3/uL [facility] Monocytes/100 WBC (Bld) 6.1 % 5.0 - 13.0 % [facility] Neutrophils (Bld) [#/Vol] 7.9 10*3/uL High 1.8 - 7.5 10*3/uL [facility] Neutrophils/100 WBC (Bld) 78.5 % 38.0 - 82.0 % [facility] Nucleated RBC/100 WBC (Bld) [Ratio] 0 % [facility] Platelet mean volume (Bld) [Entitic vol] 9.5 fL 9.0 - 12.7 fL [facility] Platelets (Bld) [#/Vol] 237 10*3/uL 140 - 440 10*3/uL [facility] RBC (Bld) [#/Vol] 3.5 10*6/uL Low 3.80 - 5.20 10*6/uL [facility] WBC (Bld) [#/Vol] 10 10*3/uL 3.6 - 10.7 10*3/uL [facility] CBC W Auto Differential pane l (Bld)on 05-02-2024 Basophils (Bld) [#/Vol] 0 10*3/uL 0.0 - 0.2 10*3/uL [facility] Basophils/100 WBC (Bld) 0.4 % 0.0 - 2.0 % [facility] Eosinophils (Bld) [#/Vol] 0.3 10*3/uL 0.0 - 0.5 10*3/uL [facility] Eosinophils/100 WBC (Bld) 2.9 % 0.0 - 6.0 % [facility] Erythrocyte distribution width (RBC) [Ratio] 12.4 % 11.5 - 15.0 % [facility] Hematocrit (Bld) [Volume fraction] 39.4 % 35.0 - 47.0 % [facility] Hemoglobin (Bld) [Mass/Vol] 13.6 g/dL 11.7 - 16.0 g/dL [facility] Immature granulocytes (Bld) [#/Vol] 0 10*3/uL NINF - 0.1 10*3/uL [facility] Immature granulocytes/100 WBC (Bld) 0.2 % 0.0 - 2.0 % [facility] Interpretation and review of laboratory results Normal [facility] Lymphocytes (Bld) [#/Vol] 2 10*3/uL 1.0 - 4.3 10*3/uL [facility] Lymphocytes/100 WBC (Bld) 23.2 % 15.0 - 45.0 % [facility] MCH (RBC) [Entitic mass] 31.3 pg 26.0 - 34.0 pg [facility] MCHC (RBC) [Mass/Vol] 34.5 % 30.5 - 36.0 % [facility] MCV (RBC) [Entitic vol] 90.6 fL 77.0 - 99.0 fL [facility] Monocytes (Bld) [#/Vol] 0.6 10*3/uL 0.0 - 0.9 10*3/uL [facility] Monocytes/100 WBC (Bld) 7.5 % 5.0 - 13.0 % [facility] Neutrophils (Bld) [#/Vol] 5.6 10*3/uL 1.8 - 7.5 10*3/uL [facility] Neutrophils/100 WBC (Bld) 65.8 % 38.0 - 82.0 % [facility] Nucleated RBC/100 WBC (Bld) [Ratio] 0 % [facility] Platelet mean volume (Bld) [Entitic vol] 9.5 fL 9.0 - 12.7 fL [facility] Platelets (Bld) [#/Vol] 250 10*3/uL 140 - 440 10*3/uL [facility] RBC (Bld) [#/Vol] 4.35 10*6/uL 3.80 - 5.20 10*6/uL [facility] WBC (Bld) [#/Vol] 8.6 10*3/uL 3.6 - 10.7 10*3/uL [facility] CBC WITH AUTO DIFFERENTIALon 05-02-2024 Basophils (Bld) [#/Vol] 0.0 10*3/uL Normal 0.0-0.2 [facility] Comment on above: Performed By: #### L AB15, AXE239, BSE539, LAB18, [id number], [id number] #### Senior Business Objects Developer: GARY ESPARZA ([id number]) [facility]) [address] [place] [address] Basophils/100 WBC (Bld) 0.3 % Normal 0.0-2.0 [facility] Comment on above: Performed By: #### L AB15, NEG792, JSM896, LAB18, [id number], [id number] #### Senior Business Objects Developer: GARY ESPARZA ([id number]) [facility]) [address] [place] [address] Eosinophils (Bld) [#/Vol] 0.1 10*3/uL Normal 0.0-0.5 [facility] Comment on above: Performed By: #### L AB15, TBD443, OEN403, LAB18, [id number], [id number] #### Senior Business Objects Developer: GARY ESPARZA ([id number]) [facility]) [address] [place] [address] Eosinophils/100 WBC (Bld) 1.3 % Normal 0.0-6.0 [facility] Comment on above: Performed By: #### L AB15, BUK942, VCD755, LAB18, [id number], VMM745 #### Senior Business Objects Developer: GARY ESPARZA ([id number]) [facility]) [address] [place] [address] Erythrocyte distribution width (RBC) [Ratio] 12.6 % Normal 11.5-15.0 [facility] Comment on above: Performed By: #### L AB15, RZB128, AJM061, LAB18, [id number], [id number] #### Senior Business Objects Developer: GARY ESPARZA ([id number]) [address] Hematocrit (Bld) [Volume fraction] 31.7 % Low 35.0-47.0 [facility] Comment on above: Performed By: #### L AB15, KRH138, QWJ793, LAB18, [id number], HFQ005 #### Senior Business Objects Developer: GARY ESPARZA ([id number]) [facility]) [address] [place] [address] Hemoglobin (Bld) [Mass/Vol] 11.0 g/dL Low 11.7-16.0 [facility] Comment on above: Performed By: #### L AB15, PLP509, SHZ186, LAB18, [id number], [id number] #### Senior Business Objects Developer: GARY ESPARZA ([id number]) [facility] ([facility]) [address] [place] [address] IMMATURE GRANS % 0.4 % Normal 0.0-2.0 [facility] Comment on above: Performed By: #### L AB15, JJP245, JFY086, LAB18, [id number], RRD649 #### Senior Business Objects Developer: GARY ESPARZA ([id number]) [facility]) [address] [place] [address] IMMATURE GRANS ABSOLUTE 0.0 10*3/uL Normal <0.1 [facility] Comment on above: Performed By: #### L AB15, XYT537, GUF987, LAB18, [id number], PAV718 #### Senior Business Objects Developer: GARY ESPARZA ([id number]) [facility]) [address] [place] [address] Lymphocytes (Bld) [#/Vol] 1.4 10*3/uL Normal 1.0-4.3 [facility] Comment on above: Performed By: #### L AB15, VMO098, VKG873, LAB18, [id number], [id number] #### Senior Business Objects Developer: GARY ESPARZA ([id number]) [facility]) [address] [place] [address] Lymphocytes/100 WBC (Bld) 13.4 % Low 15.0-45.0 [facility] Comment on above: Performed By: #### L AB15, PMN614, RUQ179, LAB18, [id number], [id number] #### Senior Business Objects Developer: GARY ESPARZA ([id number]) [facility] ([facility]) [address] [place] [address] MCH (RBC) [Entitic mass] 31.4 pg Normal 26.0-34.0 [facility] Comment on above: Performed By: #### L AB15, IER583, LOP758, LAB18, [id number], YBD618 #### Senior Business Objects Developer: GARY ESPARZA ([id number]) [facility] ([facility]) [address] [place] [address] MCHC 34.7 % Normal 30.5-36.0 [facility] Comment on above: Performed By: #### L AB15, PEY227, WQN213, LAB18, [id number], JTK141 #### Senior Business Objects Developer: GARY ESPARZA ([id number]) [facility] ([facility]) [address] [place] [address] MCV (RBC) [Entitic vol] 90.6 fL Normal 77.0-99.0 [facility] Comment on above: Performed By: #### L AB15, EHI103, OVS500, LAB18, [id number], VYB121 #### Senior Business Objects Developer: GARY ESPARZA ([id number]) [facility] ([facility]) [address] [place] [address] Monocytes (Bld) [#/Vol] 0.6 10*3/uL Normal 0.0-0.9 [facility] Comment on above: Performed By: #### L AB15, SNA271, JNY542, LAB18, [id number], FSE953 #### Senior Business Objects Developer: GARY ESPARZA ([id number]) [facility] ([facility]) [address] [place] [address] Monocytes/100 WBC (Bld) 6.1 % Normal 5.0-13.0 [facility] Comment on above: Performed By: #### L AB15, JAU992, XIC855, LAB18, [id number], [id number] #### Senior Business Objects Developer: GARY ESPARZA ([id number]) [facility] ([facility]) [address] [place] [address] NEUTROPHILS ABSOLUTE 7.9 10*3/uL High 1.8-7.5 [facility] Comment on above: Performed By: #### L AB15, WMG959, EJV462, LAB18, [id number], [id number] #### Senior Business Objects Developer: GARY ESPARZA ([id number]) [facility] ([facility]) [address] [place] [address] Neutrophils/100 WBC (Bld) 78.5 % Normal 38.0-82.0 [facility] Comment on above: Performed By: #### L AB15, [id number], [id number], [id number], [id number], [id number] #### Senior Business Objects Developer: GARY ESPARZA ([id number]) [facility] ([facility]) [address] [place] [address] NRBC 0.0 /100 WBCs Normal 0.0-2.0 [facility] Comment on above: Performed By: #### L AB15, [id number], [id number], LAB18, [id number], [id number] #### Senior Business Objects Developer: GARY ESPARZA ([id number]) [facility] ([facility]) [address] [place] [address] Platelet mean volume (Bld) [Entitic vol] 9.5 fL Normal 9.0-12.7 [facility] Comment on above: Performed By: #### L AB15, OIQ361, URD197, LAB18, [id number], [id number] #### Senior Business Objects Developer: GARY ESPARZA ([id number]) [facility] ([facility]) [address] [place] [address] Platelets (Bld) [#/Vol] 237 10*3/uL Normal 140-440 [facility] Comment on above: Performed By: #### L AB15, NQQ750, XYK486, LAB18, [id number], [id number] #### Senior Business Objects Developer: GARY ESPARZA ([id number]) [facility] ([facility]) [address] [place] [address] RBC (Bld) [#/Vol] 3.50 10*6/uL Low 3.80-5.20 [facility] Comment on above: Performed By: #### L AB15, ZYW108, PSX356, LAB18, [id number], [id number] #### Senior Business Objects Developer: GARY ESPARZA ([id number]) [facility]) [address] [place] [address] WBC (Bld) [#/Vol] 10.0 10*3/uL Normal 3.6-10.7 [facility] Comment on above: Performed By: #### L AB15, FXJ792, QDU457, LAB18, [id number], [id number] #### Senior Business Objects Developer: GARY ESPARZA ([id number]) [facility] ([facility]) [address] [place] [address] Basophils (Bld) [#/Vol] 0.0 10*3/uL Normal 0.0-0.2 [facility] Comment on above: Performed By: #### L AB15, PAW455, LEQ912, LAB18, [id number], [id number] #### Senior Business Objects Developer: GARY ESPARZA ([id number]) [facility] ([facility]) [address] [place] [address] Basophils/100 WBC (Bld) 0.4 % Normal 0.0-2.0 [facility] Comment on above: Performed By: #### L AB15, GLS106, DWD069, LAB18, [id number], [id number] #### Senior Business Objects Developer: GARY ESPARZA ([id number]) [facility] ([facility]) [address] [place] [address] Eosinophils (Bld) [#/Vol] 0.3 10*3/uL Normal 0.0-0.5 [facility] Comment on above: Performed By: #### L AB15, QPK577, TAL837, LAB18, [id number], ZHT068 #### Senior Business Objects Developer: GARY ESPARZA ([id number]) [facility]) [address] [place] [address] Eosinophils/100 WBC (Bld) 2.9 % Normal 0.0-6.0 [facility] Comment on above: Performed By: #### L AB15, XHW281, QXV849, LAB18, [id number], [id number] #### Senior Business Objects Developer: GARY ESPARZA ([id number]) [address] Erythrocyte distribution width (RBC) [Ratio] 12.4 % Normal 11.5-15.0 [facility] Comment on above: Performed By: #### L AB15, MST492, ZBK500, LAB18, [id number], [id number] #### Senior Business Objects Developer: GARY ESPRAZA ([id number]) [facility]) [address] [place] [address] Hematocrit (Bld) [Volume fraction] 39.4 % Normal 35.0-47.0 [facility] Comment on above: Performed By: #### L AB15, RQN336, PYF240, LAB18, [id number], GYH139 #### Senior Business Objects Developer: GARY ESPARZA ([id number]) [address] Hemoglobin (Bld) [Mass/Vol] 13.6 g/dL Normal 11.7-16.0 [facility] Comment on above: Performed By: #### L AB15, EJR903, FKL726, LAB18, [id number], UXO071 #### Senior Business Objects Developer: GARY ESPARZA ([id number]) [address] IMMATURE GRANS % 0.2 % Normal 0.0-2.0 [facility] Comment on above: Performed By: #### L AB15, QNM514, VGC671, LAB18, [id number], SVL200 #### Senior Business Objects Developer: GARY ESPARZA ([id number]) [address] IMMATURE GRANS ABSOLUTE 0.0 10*3/uL Normal <0.1 [facility] Comment on above: Performed By: #### L AB15, VZM073, SKX919, LAB18, [id number], BEF377 #### Senior Business Objects Developer: GARY ESPARZA ([id number]) [facility] ([facility]) [address] [place] [address] Lymphocytes (Bld) [#/Vol] 2.0 10*3/uL Normal 1.0-4.3 [facility] Comment on above: Performed By: #### L AB15, TCJ373, CZE035, LAB18, [id number], EHK097 #### Senior Business Objects Developer: GARY ESPARZA ([id number]) [facility]) [address] [place] [address] Lymphocytes/100 WBC (Bld) 23.2 % Normal 15.0-45.0 [facility] Comment on above: Performed By: #### L AB15, HBU467, GUU325, LAB18, [id number], FOQ637 #### Senior Business Objects Developer: GARY ESPARZA ([id number]) [facility]) [address] [place] [address] MCH (RBC) [Entitic mass] 31.3 pg Normal 26.0-34.0 [facility] Comment on above: Performed By: #### L AB15, JYU903, GSB633, LAB18, [id number], ORV474 #### Senior Business Objects Developer: GARY ESPARZA ([id number]) [facility]) [address] [place] [address] MCHC 34.5 % Normal 30.5-36.0 [facility] Comment on above: Performed By: #### L AB15, NLM002, LPX787, LAB18, [id number], RKD076 #### Senior Business Objects Developer: GARY ESPARZA ([id number]) [facility] ([facility]) [address] [place] [address] MCV (RBC) [Entitic vol] 90.6 fL Normal 77.0-99.0 [facility] Comment on above: Performed By: #### L AB15, CMZ085, AGD866, LAB18, [id number], JYG565 #### Senior Business Objects Developer: GARY ESPARZA ([id number]) [facility]) [address] [place] [address] Monocytes (Bld) [#/Vol] 0.6 10*3/uL Normal 0.0-0.9 [facility] Comment on above: Performed By: #### L AB15, CZR468, YHW239, LAB18, [id number], GYG207 #### Senior Business Objects Developer: GARY ESPARZA ([id number]) [facility] ([facility]) [address] [place] [address] Monocytes/100 WBC (Bld) 7.5 % Normal 5.0-13.0 [facility] Comment on above: Performed By: #### L AB15, NWZ134, HEH889, LAB18, [id number], [id number] #### Senior Business Objects Developer: GARY ESPARZA ([id number]) [facility] ([facility]) [address] [place] [address] NEUTROPHILS ABSOLUTE 5.6 10*3/uL Normal 1.8-7.5 [facility] Comment on above: Performed By: #### L AB15, YUV089, TLE582, LAB18, [id number], ZZG781 #### Senior Business Objects Developer: GARY ESPARZA ([id number]) [facility] ([facility]) [address] [place] [address] Neutrophils/100 WBC (Bld) 65.8 % Normal 38.0-82.0 [facility] Comment on above: Performed By: #### L AB15, OMQ185, KEG118, LAB18, [id number], WDC582 #### Senior Business Objects Developer: GARY ESPARZA ([id number]) [facility] ([facility]) [address] [place] [address] NRBC 0.0 /100 WBCs Normal 0.0-2.0 [facility] Comment on above: Performed By: #### L AB15, DQI713, TLU385, LAB18, [id number], DWK490 #### Senior Business Objects Developer: GARY ESPARZA ([id number]) [facility] ([facility]) [address] [place] [address] Platelet mean volume (Bld) [Entitic vol] 9.5 fL Normal 9.0-12.7 [facility] Comment on above: Performed By: #### L AB15, ZGN942, SEO517, LAB18, [id number], NCM171 #### Senior Business Objects Developer: GARY ESPARZA ([id number]) [facility]) [address] [place] [address] Platelets (Bld) [#/Vol] 250 10*3/uL Normal 140-440 [facility] Comment on above: Performed By: #### L AB15, FJR913, IKD895, LAB18, [id number], JGV059 #### Senior Business Objects Developer: GARY ESPARZA ([id number]) [facility] ([facility]) [address] [place] [address] RBC (Bld) [#/Vol] 4.35 10*6/uL Normal 3.80-5.20 [facility] Comment on above: Performed By: #### L AB15, SOP525, BKG903, LAB18, [id number], QVF223 #### Senior Business Objects Developer: GARY ESPARZA ([id number]) [facility]) [address] [place] [address] WBC (Bld) [#/Vol] 8.6 10*3/uL Normal 3.6-10.7 [facility] Comment on above: Performed By: #### L AB15, SFS105, DMZ116, LAB18, [id number], QWD020 #### Senior Business Objects Developer: GARY ESPARZA ([id number]) [facility] ([facility]) [address] [place] [address] CK TOTAL AND CKMBon 05-02-20 24 CK [Catalytic activity/Vol] 74 U/L Normal 30-170 [facility] Comment on above: Performed By: #### L AB15, KDD627, QDF977, LAB18, [id number], JTQ174 #### Senior Business Objects Developer: GARY ESPARZA ([id number]) [facility]) [address] [place] [address] CK.MB [Mass/Vol] 3.9 ng/mL Normal 0.0-4.4 [facility] Comment on above: Performed By: #### L AB15, LNX942, GSE848, LAB18, [id number], FOJ769 #### Senior Business Objects Developer: GARY ESPARZA ([id number]) [facility] ([facility]) [address] [place] [address] RELATIVE INDEX 5.3 High 0.0-3.0 [facility] Comment on above: Performed By: #### L AB15, NDT824, CBH863, LAB18, [id number], XRI592 #### Senior Business Objects Developer: GARY ESPARZA ([id number]) [facility] ([facility]) [address] [place] [address] CK.total/Creatine kinase.MB [Catalytic ratio]on 05-02-2024 CK [Catalytic activity/Vol] 74 U/L 30 - 170 U/L [facility] CK.MB [Mass/Vol] 3.9 ng/mL 0.0 - 4.4 ng/mL [facility] Interpretation and review of laboratory results Abnormal [facility] RELATIVE INDEX 5.3 High 0.0 - 3.0 [facility] Cardiac catheterization stud yon 05-02-2024 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 Prior VARGAS-LAD and SVG-OM2 grafts are both chronically occluded. Patent [place] dominant RCA with mild disease. Successful IVUS guided PCI of 90% ostial LM into the diffusely diseased proximal-mid LAD with a 3.0x38 mm Xience JATIN (LM into LAD), further post-dilated proximally in the LMCA with a 4.0mm NC balloon. Additional 2.75 x 18 mm Xience JATIN placed to the mid LAD with a short region of stent overlap. Successful PCI of the proximal-mid LCX into OM2 with deployment of 2 overlapped Xience JATIN (3.0x23mm proximal and 2.5x38 mm midLCx into OM2). BERTRAND 2 residual flow into the OM2 beyond site of prior SVG insertion. No angina or ST changes at end of case. RCA is a large vessel with widely patent previously placed stents with mild diffuse disease. SVG to OM2 graft is noted to have 100% chronic ostial occlusion at the origin of the graft. VARGAS to LAD was not injected as it was known to be atretic from previous angiograms. Low LVEDP, 1 mmHg. No aortic stenosis. Transient hypotension and hemodynamic instability during complex PCI related to low flow state and compromised flow, stabilized with IV norepinephrine pushes and completion of complex PCI. Stable hemodynamics without angina or ischemic ST changes at completion of case. Procedure Details Patient was prepped and draped in sterile fashion. Soft tissue overlying the right femoral artery was anesthetized with lidocaine injected subcutaneously. Micropuncture needle used to access right femoral artery under fluoroscopic and ultrasound guidance. Right femoral angiogram was performed documenting appropriate position of right femoral access. Using modified Seldinger technique, microsheath was exchanged over a wire for a 6 English sheath which was aspirated and flushed with saline. Patient was anticoagulated with IV heparin. Left and right coronary angiograms were performed with 5 English JL 4 and JR4 catheters respectively. JR4 catheter was advanced across the aortic valve using a guidewire to perform left heart cath with measurement of pressures. VARGAS graft was not assessed as this was noted to be chronically occluded. A 5 English AL 1 catheter was used to perform angiography of the SVG-OM graft. Catheter was aspirated and flushed with saline. Sheath was aspirated and flushed between all catheter exchanges. At the end of the case following PCI, femoral sheath was withdrawn and arterial hemostasis was achieved with placement of Perclose over the right femoral arteriotomy. PCI of proximal-mid LCx: Prior to beginning PCI, the 6 English sheath was exchanged for a 7 English sheath. Patient was anticoagulated with IV heparin with therapeutic ACT maintained. Patient was loaded with Brilinta 180 mg crushed PO prior to the procedure. Left main coronary artery was cannulated with a 7 English EBU 3.75 guide catheter. Luge guidewire was advanced across severe Lcx stenosis and positioned into the OM2 (previously grafted). A second Luge guidewire was placed into the distal LAD. Balloon angioplasty of the mid Cx was performed with a 2.0x20 mm Trek. Angioplasty of the mid Cx was then performed with a 2.5x20 mm NC Euphora. Mid LCx was stented with a 2.5x38 mm Xience JATIN. Balloon angioplasty of the proximal LCx was performed with a 2.5x20 mm Euphora. At this time, the patient became hypotensive and poor flow was noted in the LAD and Lcx. Patient received 64 mcg of Levophed with pressure recovery and improved coronary flow. The proximal LCx was stented with a 3.0x23 mm Xience JATIN with short region of stent overlap. Final angiogram showed 0% residual stenosis with BERTRAND-2 flow in the Lcx into the OM2 branch. In the setting of hypotension and poor coronary flow, additional angiogram revealed occlusion of mid LAD within tortuous segment at the insertion point of the chronically occluded VARGAS graft. Following completion of circumflex PCI, decision made to proceed with mid LAD angioplasty to restore flow. Angioplasty of midLAD: ACT was reassessed and noted to be therapeutic. Angioplasty of the mid LAD was performed with a 2.0x20 mm Trek balloon and BERTRAND 3 distal LAD flow was restored. PCI of the Ostial LM to Proximal-mid LAD: Angioplasty of the ostial left main and proximal LAD was performed with a 2.5x20 mm Euphora balloon with stabilization of patient's BP. The ostial LM thru proximal LAD was stented with a 3.0x38 mm Xience JATIN and was further post-dilated proximally in the LMCA with a 4.0x12 mm Euphora NC balloon. IVUS imaging was performed. The guidewire in the left circumflex was removed. There was additional disease in the midLAD at the distal edge of the stent. The mid LAD was stented with a 2.75x18 mm Xience JATIN with a short region of stent overlap. 200 mcg of intracoronary nitroglycein was given. Final angiogram showed 0% residual stenosis thru the LM (more content not included)... CV CPACS HEMO [facility] ECG 12-LEADon 05-02-2024 ECG 12-LEAD IMPRESSION: Sinus rhythm BORDERLINE ST DEPRESSION, DIFFUSE LEADS Electronically Signed On 05-02-2024 07:48:39 EST by Rufus Valente [facility] ECG 12-LEAD IMPRESSION: Sinus rhythm Ventricular bigeminy, brief Probable left atrial enlargement PVCs new since last EKG Electronically Signed On 05-02-2024 07:25:45 EST by Rufus Valente [facility] HEMOGLOBIN A1Con 05-02-2024 Glucose [Mass/Vol] 111 mg/dL Normal [facility] Comment on above: Performed By: #### L AB15, RIB266, EDH586, LAB18, [id number], [id number] #### Senior Business Objects Developer: GARY ESPARZA ([id number]) [facility]) [address] [place] [address] HbA1c (Bld) [Mass fraction] 5.5 % Normal <5.7 [facility] Comment on above: Result Comment: Norm al less than 5.7% Prediabetes 5.7% to 6.4% Diabetes 6.5% or higher --HgbA1C levels may not be accurate in patients who have renal disease, received recent blood transfusions, are anemic, or who have dyshemoglobinemia. Performed By: #### L AB15, PSK123, GIC091, LAB18, [id number], AYK820 #### Senior Business Objects Developer: GARY ESPARZA ([id number]) [facility]) [address] [place] [address] HEMOGLOBIN AND HEMATOCRIT, B LOODon 05-02-2024 Hematocrit (Bld) [Volume fraction] 36.3 % Normal 35.0-47.0 [facility] Comment on above: Performed By: #### L AB15, HTR574, BKD862, LAB18, [id number], PJG411 #### Senior Business Objects Developer: GARY ESPARZA ([id number]) [facility] ([facility]) [address] [place] [address] Hemoglobin (Bld) [Mass/Vol] 12.4 g/dL Normal 11.7-16.0 [facility] Comment on above: Performed By: #### L AB15, VKN585, HFK477, LAB18, [id number], JEV870 #### Senior Business Objects Developer: GARY ESPARZA ([id number]) [facility]) [address] [place] [address] [place] Hemoglobin (Bld) [Mass/Vol]o n 05-02-2024 Hematocrit (Bld) [Volume fraction] 36.3 % 35.0 - 47.0 % [facility] Interpretation and review of laboratory results Normal [facility] LIPID PANELon 05-02-2024 Cholesterol [Mass/Vol] 201 mg/dL High <200 [facility] Comment on above: Order Comment: If no t done in the last six months. Performed By: #### L AB15, BAT991, XDH124, LAB18, [id number], FFD476 #### Senior Business Objects Developer: GARY ESPARZA ([id number]) [facility]) [address] [place] [address] Cholesterol in HDL [Mass/Vol] 64 mg/dL High 40-60 [facility] Comment on above: Order Comment: If no t done in the last six months. Performed By: #### L AB15, TRS172, SVC153, LAB18, [id number], [id number] #### Senior Business Objects Developer: GARY ESPARZA ([id number]) [facility]) [address] [place] [address] Cholesterol.total/Chol esterol in HDL [Mass ratio] 3 {ratio} Normal [facility] Comment on above: Order Comment: If no t done in the last six months. Result Comment: Ref Range: < 3 Low Risk for CHD 3-6 Mod Risk for CHD > 6 High Risk for CHD Performed By: #### L AB15, HBX530, KGV997, LAB18, [id number], SFJ667 #### Senior Business Objects Developer: GARY ESPARZA ([id number]) [facility]) [address] [place] [address] LOW DENSITY LIPOPROTEIN 81 mg/dL Normal 0-<100 [facility] Comment on above: Order Comment: If no t done in the last six months. Performed By: #### L AB15, XAD153, CKV845, LAB18, [id number], ZXY664 #### Senior Business Objects Developer: GARY ESPARZA ([id number]) [facility]) [address] [place] [address] Triglyceride [Mass/Vol] 280 mg/dL High <150 [facility] Comment on above: Order Comment: If no t done in the last six months. Performed By: #### L AB15, MIR500, FWD216, LAB18, [id number], DOP341 #### Senior Business Objects Developer: GARY ESPARZA ([id number]) [facility] ([facility]) [address] [place] [address] Laboratory - Chemistry and C hemistry - challengeOrdered By: Demarcus Becerra on 05-02-2024 Troponin I.cardiac [Mass/Vol] 2.11 ng/mL [facility]/mL [facility] Laboratory - Chemistry and C hemistry - challengeOrdered By: Marylou Rueda on 05-02-2024 Troponin I.cardiac [Mass/Vol] 0.314 ng/mL Critically [facility] - [facility] ng/mL [facility] Laboratory - Chemistry and C hemistry - challengeon 05-02-2024 Magnesium [Mass/Vol] 2.2 mg/dL 1.6 - 2 .3 mg/dL [facility] Troponin I.cardiac [Mass/Vol] ng/mL [facility] ng/mL [facility] Troponin I.cardiac [Mass/Vol] ng/mL [facility] ng/mL [facility] Average glucose Estimated from glycated hemoglobin (Bld) [Mass/Vol] 111 mg/dL [facility] TSH Qn 5.341 m[IU]/L High [facility] Magnesium [Mass/Vol] 2.2 mg/dL 1.6 - 2 .3 mg/dL [facility] Laboratory - Hematology and Cell countson 05-02-2024 Hemoglobin (Bld) [Mass/Vol] 12.4 g/dL 11.7 - 16.0 g/dL [facility] HbA1c (Bld) [Mass fraction] 5.5 % NINF - 5.7 % [facility] Comment on above: Normal less than 5.7 % Prediabetes 5.7% to 6.4% Diabetes 6.5% or higher --HgbA1C levels may not be accurate in patients who have renal disease, received recent blood transfusions, are anemic, or who have dyshemoglobinemia. Lipid 1996 panelon 4 Cholesterol [Mass/Vol] 201 mg/dL High NINF - 200 mg/dL [facility] Cholesterol in HDL [Mass/Vol] 64 mg/dL High 40 - 60 mg/dL [facility] Cholesterol in LDL [Mass/Vol] 81 mg/dL 0 - <100 [facility] Cholesterol.total/Chol esterol in HDL [Mass ratio] 3 {ratio} [facility] Comment on above: Ref Range: < 3 Low Risk for CHD 3-6 Mod Risk for CHD > 6 High Risk for CHD Interpretation and review of laboratory results Abnormal [facility] Triglyceride [Mass/Vol] 280 mg/dL High NINF - 150 mg/dL [facility] MAGNESIUMon 05-02-2024 Magnesium [Mass/Vol] 2.2 mg/dL Normal 1.6-2.3 [facility] Comment on above: Performed By: #### L AB15, JJW241, FLE707, LAB18, [id number], MGF225 #### Senior Business Objects Developer: GARY ESPARZA ([id number]) [facility] ([facility]) [address] [place] [address] Magnesium [Mass/Vol] 2.2 mg/dL Normal 1.6-2.3 [facility] Comment on above: Performed By: #### L AB15, KPM206, RJA861, LAB18, [id number], TEN012 #### Senior Business Objects Developer: GARY ESPARZA ([id number]) [facility] ([facility]) [address] [place] [address] Magnesium [Mass/Vol]on 05-02 Interpretation and review of laboratory results Normal [facility] Interpretation and review of laboratory results Normal [facility] NT PRO BNPon 05-02-2024 Natriuretic peptide B (Bld) [Mass/Vol] 856 pg/mL High <125 [facility] Comment on above: Performed By: #### L AB15, PIR026, KYW752, LAB18, [id number], BCU531 #### Senior Business Objects Developer: GARY ESPARZA ([id number]) [facility] ([facility]) [address] [place] [address] Natriuretic peptide B [Mass/ Vol]Ordered By: Jose Manuel Owens on 05-02-2024 Interpretation and review of laboratory results Abnormal [facility] Natriuretic peptide B (Bld) [Mass/Vol] 856 pg/mL High NINF - 125 pg/mL [facility] No Panel Informationon 05-02 Interpretation and review of laboratory results Abnormal [facility] POCT ACT 265 High [facility] POCT ACT 316 High [facility] Performed by: [facility], [address] [place] [address], [place] [id number] CLIA ID: [id number] [facility] POCT ACT 282 [facility] Sinus rhythm BORDERLINE ST DEPRESSION, DIFFUSE LEADS Electronically Signed On 05-02-2024 07:48:39 EST by Rufus Marsh MD - 05/02/2024 IMPRESSION: Sinus rhythm BORDERLINE ST DEPRESSION, DIFFUSE LEADS Electronically Signed On 05-02-2024 07:48:39 EST by Rufus Valente [facility] P Altair 46 degrees [facility] NM Interval 140 ms [facility] QRS [place]tair 39 degrees [facility] QRSD Interval 87 ms [facility] QT Interval 393 ms [facility] QTC Interval 485 ms [facility] T Wave [place]tair 40 degrees [facility] Sinus rhythm Ventricular bigeminy, brief Probable left atrial enlargement PVCs new since last EKG Electronically Signed On 05-02-2024 07:25:45 EST by Rufus Marsh MD - 05/02/2024 IMPRESSION: Sinus rhythm Ventricular bigeminy, brief Probable left atrial enlargement PVCs new since last EKG Electronically Signed On 05-02-2024 07:25:45 EST by Rufus Valente [facility] No Panel InformationOrdered By: Rufus Valente on 05-02-2024 P Altair 63 degrees [facility] Work Phone: NM Interval 147 ms [facility] Work Phone: QRS Altair 8 degrees [facility] Work Phone: QRSD Interval 97 ms [facility] Work Phone: QT Interval 392 ms [facility] Work Phone: QTC Interval 462 ms [facility] Work Phone: T Wave Altair 40 degrees [facility] Work Phone: [facility] Work Phone: Progress Noteon 05-02-2024 Progress Note Patient transferred to CCU s/p multivessel PCI. She denies chest pain/pressure, palpitations, shortness of breath, or any other acute concerns at this time. Vitals are stable. Will hold isosorbide mononitrate. Start on rosuvastatin 40 mg nightly. Continue on DAPT. Will monitor for any acute changes. Normal [facility] THYROID STIMULATING HORMONEo n 05-02-2024 THYROID STIMULATING HORMONE 5.341 uIU/mL High 0.465-4.68 0 [facility] Comment on above: Performed By: #### L AB15, [id number], [id number], LAB18, [id number], [id number] #### Senior Business Objects Developer: GARY ESPARZA ([id number]) [facility] ([facility]) [address] [place] [address] [place] TROPONIN Ion 05-02-2024 Troponin I.cardiac [Mass/Vol] 2.110 ng/mL Critically high <0.034 [facility] Comment on above: Result Comment: ORDE R COMMENTS: Patients with high levels of Biotin oral intake (ie >5 mg/day) may have falsely decreased Troponin levels. Performed By: #### L AB15, VHG007, LGH759, LAB18, [id number], [id number] #### Senior Business Objects Developer: GARY ESPARZA ([id number]) [facility] ([facility]) [address] [place] [address] [place] Troponin I.cardiac [Mass/Vol] ng/mL Normal <0.034 [facility] Comment on above: Result Comment: ORDE R COMMENTS: Patients with high levels of Biotin oral intake (ie >5 mg/day) may have falsely decreased Troponin levels. Performed By: #### L AB15, GUK709, [id number], LAB18, [id number], [id number] #### Senior Business Objects Developer: GARY ESPARZA ([id number]) [facility] ([facility]) [address] [place] [address] [place] Troponin I.cardiac [Mass/Vol] ng/mL Normal <0.034 [facility] Comment on above: Result Comment: ORDE R COMMENTS: Patients with high levels of Biotin oral intake (ie >5 mg/day) may have falsely decreased Troponin levels. Performed By: #### L AB15, [id number], EDS284, LAB18, [id number], [id number] #### Senior Business Objects Developer: GARY ESPARZA ([id number]) [facility]) [address] [place] [address] TROPONIN, WITH SERIAL REFLEX on 05-02-2024 Troponin I.cardiac [Mass/Vol] 0.314 ng/mL Critically high <0.034 [facility] Comment on above: Result Comment: VIDA Benitez COMMENTS: Patients with high levels of Biotin oral intake (ie >5 mg/day) may have falsely decreased Troponin levels. Performed By: #### L AB15, [id number], [id number], LAB18, [id number], [id number] #### Senior Business Objects Developer: GARY ESPARZA ([id number]) [facility]) [address] [place] [address] Troponin I.cardiac [Mass/Vol] ng/mL Normal <0.034 [facility] Comment on above: Result Comment: VIDA Benitez COMMENTS: Patients with high levels of Biotin oral intake (ie >5 mg/day) may have falsely decreased Troponin levels. Performed By: #### L AB15, UOP351, XGW830, LAB18, [id number], [id number] #### Senior Business Objects Developer: GARY ESPARZA ([id number]) [facility]) [address] [place] [address] TSH Qnon 05-02-2024 Interpretation and review of laboratory results Abnormal [facility] Troponin I.cardiac [Mass/Vol ]Ordered By: Demarcus Becerra on 05-02-2024 Interpretation and review of laboratory results Abnormal [facility] Patients with high l evels of Biotin oral intake (ie >5 mg/day) may have falsely decreased Troponin levels. [facility] Troponin I.cardiac [Mass/Vol ]Ordered By: Marylou Rueda on 05-02-2024 Interpretation and review of laboratory results Abnormal [facility] Patients with high l evels of Biotin oral intake (ie >5 mg/day) may have falsely decreased Troponin levels. [facility] Troponin I.cardiac [Mass/Vol ]on 05-02-2024 Interpretation and review of laboratory results Normal [facility] Patients with high l evels of Biotin oral intake (ie >5 mg/day) may have falsely decreased Troponin levels. [employer] Interpretation and review of laboratory results Normal [facility] Patients with high l evels of Biotin oral intake (ie >5 mg/day) may have falsely decreased Troponin levels. [facility] [employer] Interpretation and review of laboratory results Normal [facility] Patients with high l evels of Biotin oral intake (ie >5 mg/day) may have falsely decreased Troponin levels. [facility] [employer] US Heart TransthoracicOrdere d By: Nusrat Gant on 05-02-2024 Ao Root Index 1.77 cm/m2 [employer] Phone: Aortic Root 3.1 cm [employer] Phone: Aortic Sinus Valsalva 3.1 cm [facility] [email or web address] Phone: Aortic Sinus Valsalva Index 1.77 cm/m2 [employer] Phone: Ascending [facility]orta 2.8 [facility]: Ascending Aorta Index 1.6 cm/m2 [employer] Phone: AV Area by Peak Velocity 2.5 cm2 [employer] Phone: AV Area by VTI 2.1 cm2 [employer] Phone: AV Mean Gradient 3 mmHg [employer] Phone: AV Mean Velocity 0.8 m/s [employer] Phone: AV Peak Gradient 4 mmHg [employer] Phone: AV Peak Velocity 1.1 m/s [facility] Phone: AV Velocity Ratio 0.73 [employer] Phone: AV VTI 21.1 cm [facility] Phone: SHAY/BSA Peak Velocity 1.4 cm2/m2 [facility] [email or web address] Phone: SHAY/BSA VTI 1.2 cm2/m2 [facility] Work Phone: E/E' Lateral 5.5 [facility] Work Phone: E/E' Ratio (Averaged) 5.5 [facility] Work Phone: E/E' Septal 5.5 [facility] [employer] Work Phone: EF BP 59 % 55 - 100 % [facility] [employer] Work Phone: Est. RA Pressure 3 mmHg [facility] [employer] Work Phone: Fractional Shortening 2D 36 % 28 - 44 % [facility] [employer] Work Phone: Global Longitudinal Strain -16.8 % [facility] [employer] Work Phone: IVC Diameter 1 cm [facility] [employer] Work Phone: IVSd 0.8 cm 0.6 - 0.9 cm [facility] [employer] Work Phone: LA Volume 2C 46 mL 22 - 52 mL [facility] [employer] Work Phone: LA Volume 4C 47 mL 22 - 52 mL [facility] [employer] Work Phone: LA Volume A/L 54 mL [facility] [employer] Work Phone: LA Volume BP 50 mL 22 - 52 mL [facility] [employer] Work Phone: LA Volume Index 2C 26 mL/m2 16 - 34 mL/m2 [facility] [employer] Work Phone: LA Volume Index 4C 27 mL/m2 16 - 34 mL/m2 [facility] [employer] Work Phone: LA Volume Index A/L 31 mL/m2 16 - 34 mL/m2 [facility] [employer] Work Phone: LA Volume Index BP 29 ml/m2 16 - 34 ml/m2 [facility] [employer] Work Phone: LV E' Lateral Velocity 6 cm/s [facility] Work Phone: LV E' Septal Velocity 6 cm/s [facility] Work Phone: LV EDV A2C 56 mL [facility] Work Phone: LV EDV A4C 61 mL [facility] Work Phone: LV EDV BP 60 mL 56 - 104 mL [employer] [facility] [employer] Work Phone: LV EDV Index A2C 32 mL/m2 [employer] Work Phone: LV EDV Index A4C 35 mL/m2 [employer] Work Phone: LV EDV Index BP 34 mL/m2 [employer] Work Phone: LV Ejection Fraction A2C 60 % [employer] Work Phone: LV Ejection Fraction A4C 59 % [employer] Work Phone: LV ESV A2C 23 mL [employer] Phone: LV ESV A4C 25 mL [employer] Phone: LV ESV BP 24 mL 19 - 49 mL [employer] Phone: LV ESV Index A2C 13 mL/m2 [employer] Work Phone: LV ESV Index A4C 14 mL/m2 [employer] Phone: LV ESV Index BP 14 mL/m2 [employer] Phone: LV Mass 2D 85.1 g 67 - 162 g [employer] Phone: LV Mass 2D Index 48.6 g/m2 43 - 95 g/m2 [employer] Phone: LV RWT Ratio 0.29 [employer] Work Phone: LVIDd 4.2 cm 3.9 - 5.3 cm [facility] Work Phone: LVIDd Index 2.4 cm/m2 [employer] Work Phone: LVIDs 2.7 cm [facility] Work Phone: LVIDs Index 1.54 cm/m2 [employer] Phone: LVOT Area 3.5 cm2 [employer] Work Phone: LVOT Cardiac Output 3.4 liter/mi nu te [employer] Work Phone: LVOT Diameter 2.1 cm [employer] Work Phone: LVOT Mean Gradient 1 mmHg [employer] Work Phone: LVOT Peak Gradient 3 [facility] [employer] Work Phone: LVOT Peak Velocity 0.8 m/s [facility] [employer] Work Phone: LVOT Stroke Volume Index 25.7 mL/m2 [facility] [employer] Work Phone: LVOT SV 45 ml [facility] [employer] Work Phone: LVOT VTI 13 cm [facility] [employer] Work Phone: LVOT:AV VTI Index 0.62 [facility] [employer] Work Phone: LVPWd 0.6 cm 0.6 - 0.9 cm [facility] [employer] Work Phone: MR VTI 147.8 cm [facility] [employer] Work Phone: MV A Velocity 0.62 m/s [facility] [employer] Work Phone: MV E Velocity 0.33 m/s [facility] [employer] Work Phone: MV E/A 0.53 [facility] [employer] Work Phone: MV Nyquist Velocity 36 cm/s [facility] [employer] Work Phone: MV Regurg Velocity PISA 5.7 m/s [facility] [employer] Work Phone: RA Area 4C 38.4 mL [facility] [employer] Work Phone: RA Area 4C 36.7 mL [facility] [employer] Work Phone: RV Free Wall Peak S' 9 cm/s [facility] [employer] Work Phone: RVSP 21 mmHg [facility] [employer] Work Phone: Sinotubular Junction 2.8 cm [facility] [employer] Work Phone: TAPSE 1.8 cm 1.7 cm [facility] [employer] Work Phone: TR Max Velocity 2.1 m/s [facility] [employer] Work Phone: TR Peak Gradient 18 mmHg [employer] Work Phone: [facility] [employer] Work Phone: Heart Transthoracicon Left Ventricle: Left ventricle size is normal. Normal wall thickness. Normal left ventricular systolic function. EF by 2D Simpsons Biplane is 59%. Global longitudinal strain is normal with a value of -16.8%. See diagram for wall motion findings. Very small area of basal inferior and basal inferolateral wall akinesis, with some restriction of the PML. Visual assessment of regional WMA correlates with strain pattern. Right Ventricle: Right ventricle size is normal. Low normal systolic function. Mitral Valve: Valve structure is normal. Mild to moderate (1-2+) regurgitation with a posterior directed jet. Mild restricted opening PML. Left Ventricle Left ventricle size is normal. Normal wall thickness. Normal left ventricular systolic function. EF by 2D Simpsons Biplane is 59%. Global longitudinal strain is normal with a value of -16.8%. See diagram for wall motion findings. Very small area of basal inferior and basal inferolateral wall akinesis, with some restriction of the PML. Visual assessment of regional WMA correlates with strain pattern. Right Ventricle Right ventricle size is normal. Low normal systolic function. Left Atrium Left atrium size is normal. Right Atrium Right atrium size is normal. IVC/SVC IVC diameter is normal and decreases greater than 50% during inspiration; therefore the estimated right atrial pressure is normal (~3 mmHg). Mitral Valve Valve structure is normal. Mild to moderate (1-2+) regurgitation with a posterior directed jet. No stenosis noted. Mild restricted opening PML. Tricuspid Valve Valve structure is normal. Moderate (2+) regurgitation. Normal RVSP. RVSP is 21 mmHg. Aortic Valve Trileaflet. No cusp thickening. No cusp calcification. No regurgitation. No stenosis. Pulmonic Valve Valve structure is normal. Trace regurgitation. Ascending Aorta Normal sized sinuses of Valsalva and ascending aorta. Pericardium No pericardial effusion. Septum No interatrial shunt visualized on color Doppler. Study Details Image quality: fair. Additional technique includes myocardial strain. Blood pressure: 127/78 mmHg. Rhythm is unclear, possible junctional, and frequent V-ectopy Technical qualifiers: Procedure performed with the patient in a supine position. No contrast was given. Wall Scoring Baseline Score Index: 1.24 The following segments are akinetic: basal inferior and basal inferolateral. All other segments are normal. CV CPACS Vital signsOrdered By: Rufus Valente on 05-02-2024 Heart rate 83 /min bpm [facility] [employer] Work Phone: Vital signson 05-02-2024 Heart rate 91 /min bpm [facility] [employer] XR CHEST 1 VIEWon 05-02-2024 XR CHEST 1 VIEW Patient Name: NISSA TROTTER : 1955 Exam Date/Time: 05/02/2024 08:09 Procedure: XR CHEST 1 VIEW Ordering Provider: MACEDO PRATIK Reason For Exam: chest pain PORTABLE CHEST X-RAY CLINICAL INDICATION: chest pain A portable frontal view of the chest was obtained. COMPARISON: None FINDINGS: The cardiac silhouette is within normal limits. Sternotomy wires are noted. No focal consolidation is seen within the lungs. There is no large pleural effusion or pneumothorax. The bony structures of the chest are unremarkable as visualized. IMPRESSION: No acute cardiopulmonary disease. Report Dictated on Electronically Signed By: Robson Simmons MD Electronically Signed Date/Time: 05/02/2024 7:49 AM EST Normal [facility] XR Chest Single viewon 05-02 No acute cardiopulmonary disease. Report Dictated on Electronically Signed By: Robson Simmons MD Electronically Signed Date/Time: 05/02/2024 7:49 AM EST [facility] Patient Name: NISSA TROTTER : 1955 Exam Date/Time: 05/02/2024 08:09 Procedure: XR CHEST 1 VIEW Ordering Provider: MACEDO PRATIK Reason For Exam: chest pain PORTABLE CHEST X-RAY CLINICAL INDICATION: chest pain A portable frontal view of the chest was obtained. COMPARISON: None FINDINGS: The cardiac silhouette is within normal limits. Sternotomy wires are noted. No focal consolidation is seen within the lungs. There is no large pleural effusion or pneumothorax. The bony structures of the chest are unremarkable as visualized. [facility] Robson Simmons MD - 05/02/2024 Patient Name: NISSA TROTTER : 1955 Exam Date/Time: 05/02/2024 08:09 Procedure: XR CHEST 1 VIEW Ordering Provider: MACEDO PRATIK Reason For Exam: chest pain PORTABLE CHEST X-RAY CLINICAL INDICATION: chest pain A portable frontal view of the chest was obtained. COMPARISON: None FINDINGS: The cardiac silhouette is within normal limits. Sternotomy wires are noted. No focal consolidation is seen within the lungs. There is no large pleural effusion or pneumothorax. The bony structures of the chest are unremarkable as visualized. IMPRESSION: No acute cardiopulmonary disease. Report Dictated on Electronically Signed By: Robson Simmons MD Electronically Signed Date/Time: 05/02/2024 7:49 AM EST [facility] Radiology Study observation (narrative) [facility] XR Chest Single viewOrdered By: Robson Simmons on 05-02-2024 [facility] aPTT Coag (Bld) [Time]on aPTT Coag (PPP) [Time] 70.3 s High 20.0 - 30.5 s [facility] Interpretation and review of laboratory results Abnormal [facility] NOTE: The therapeuti c time for Heparin anticoagulation, based on Xa activity inhibition, is an APTT of 46-80 seconds. [facility] aPTT Coag (PPP) [Time] 25.6 s 20.0 - 30.5 s [facility] Interpretation and review of laboratory results Normal [facility] NOTE: The therapeuti c time for Heparin anticoagulation, based on Xa activity inhibition, is an APTT of 46-80 seconds. [facility] Cardiac Cath Diagn[employer]icon Cardiac Cath Diagnostic [facility] Imaging Services [address] [place] [address] Cardiac Cath Diagnostic MR#: [id number] Acct: [id number] Name: NISSA TROTTER Rep #: [id number] : 1955 68 From: Dustin Lemus MD PCP: Dr. Teresa Malys, DO [place] [facility] Name: NISSA TROTTER Study Date: 05/01/2024 Performing: Dustin Lemus MD Ht: 61 inches 154.94 cm : 1955 Wt: 170.99 lbs 77.56 kg Age: 68 Gender: female BSA: 1.77 PROCEDURE(S) PERFORMED DC03-(17121)LHC/COR/LV/CABG DC11-(83256)AO ROOT ANGIO WITH HEART CATH CLINICAL PROFILE AND INDICATIONS Indications: Worsening Angina Heart Failure: None Stress/Imaging Date: 01/25/24Stress Test with SPECT MPI: NegativeStress/Image Study Performed: No CAD Presentations: Unstable angina. CONCLUSIONS Coronary artery disease with ostial left main coronary artery stenosis and atretic VARGAS to the LAD mild disease noted in the right coronary artery and occluded saphenous vein graft to the obtuse marginal RECOMMENDATIONS Consider PCI and transfer for left main stenting DESCRIPTION OF PROCEDURE The patient arrived to the procedure lab. The risks and benefits of the procedure as well as a full description of our services here and current unavailability of surgical backup were fully explained to the patient and/or their significant other prior to the catheterization. The Timeout was completed, verifying the correct patient and procedure. The patient's procedural site was prepped and draped in the usual fashion. Local anesthetic was given subcutaneously to left radial region with Lidocaine 2%. Using a modified Seldinger technique, arterial access was obtained via the left femoral artery, a 6Fr sheath was inserted. Left internal mammary artery graft to the LAD selective angiography was performed in multiple views using a 5 Fr. IM catheter. Left Coronary Artery selective angiography was performed in multiple views using a 5 Fr. JL4 catheter. Right Coronary Artery selective angiography was then performed in multiple views using a 5 Fr. 3DRC (Dwaine) catheter. Ascending (root) aorta selective angiography was then performed in single view. Ascending (root) aorta selective angiography was then performed in single view.The arterial sheath was pulled and a TR Band was applied for hemostasis. 14cc air CORONARY ANGIOGRAPHY DOMINANCE: Right Dominant LEFT HEART ASSESSMENT Left Ventricular Ejection Fraction: by Echo 60 % Normal Left Ventricular systolic function LEFT MAIN: Ostial 90% stenosis LEFT ANTERIOR DESCENDING ARTERY: Mild calcification with mild to moderate disease noted in the midsegment but with no areas of high-grade stenosis present CIRCUMFLEX ARTERY: Nondominant vessel with total proximal occlusion RIGHT CORONARY ARTERY: Dominant vessel appears to be previously stented with mild proximal stenosis in-stent and mild diffuse distal disease less than 30% GRAFTS: VARGAS graft to the Mid LAD Atretic Saphenous Vein graft to the 1st OM Was not found despite multiple catheter use as well as aortogram AORTIC ROOT: Angiographically normal COMPLICATIONS No Complications PROCEDURE MEDICATIONS Fentanyl 50 mcg IV Versed 1 mg IV Versed 1 mg IV Oxygen: 2 L/min via nasal cannula Heparin given IA 05/01/2024 10:43:04 Verapamil 2.5mg, Ntg 100mcgs, 3000 units of Heparin given IA 05/01/2024 10:43:04 SUMMARY OF HEMODYNAMIC DATA Time AIR REST ECG 09:20:03 AO 138/72 (98) SA 10:48:21 Signed By Dustin Lemus MD On 05/01/2024 11:42:55 Dustin Lemus MD 05/01/24 1144 Date Dustin Lemus MD Cosign Signature: Date (if indicated) CC: Dr. Dustin Lemus MD; Dr. Teresa Boggs DO Date Dictated: 05/01/24 1035 Date Transcribed: 05/01/24 1142 Hay Buckler: [place] Signed Normal [facility] CBC W/Diff, Automatedon 03-29 Absolute Lymph 1.77 X10 3/uL Normal 0.83-4.51 [facility] Comment on above: Performed By: #### L 500.4050, L500.4100, L100.0100, L300.4310 ####[facility] [address] [place], [address] Absolute Neut 4.2 X10 3/uL Normal 2.0-7.7 [facility] Comment on above: Performed By: #### L 500.4050, L500.4100, L100.0100, L300.4310 ####[facility] [address] [place], [address] Basophils/100 WBC (Bld) 0.7 % Normal 0-1 [facility] Comment on above: Performed By: #### L 500.4050, L500.4100, L100.0100, L300.4310 ####[facility] [address] [place], [address] Eosinophils/100 WBC (Bld) 3.4 % Normal 0-5 [facility] Comment on above: Performed By: #### L 500.4050, L500.4100, L100.0100, L300.4310 ####[facility] [address] [place], [address] Erythrocyte distribution width (RBC) [Ratio] 12.3 % Normal 11.6-14.6 [facility] Comment on above: Performed By: #### L 500.4050, L500.4100, L100.0100, L300.4310 ####[facility] [address] [place], [address] Hematocrit (Bld) [Volume fraction] 44.6 % Normal 37-47 [facility] Comment on above: Performed By: #### L 500.4050, L500.4100, L100.0100, L300.4310 ####[facility] [address] [place], [address] Hemoglobin (Bld) [Mass/Vol] 14.8 g/dL Normal 12.0-15.0 [facility] Comment on above: Performed By: #### L 500.4050, L500.4100, L100.0100, L300.4310 ####[facility] [address] [place], [address] IG% 0.300 Normal 0.0-0.9 [facility] Comment on above: Result Comment: IG% - Immature Granulocytes (promyelocytes, myelocytes and metamyelocytes) > 1% indicates that a LEFT SHIFT is Present. Performed By: #### L 500.4050, L500.4100, L100.0100, L300.4310 ####[facility] [address] [place], [address] Lymphocytes/100 WBC (Bld) 26.2 % Normal 19-41 [facility] Comment on above: Performed By: #### L 500.4050, L500.4100, L100.0100, L300.4310 ####[facility] [address] [place], [address] MCH (RBC) [Entitic mass] 31.1 pg Normal 27.0-32.0 [facility] Comment on above: Performed By: #### L 500.4050, L500.4100, L100.0100, L300.4310 ####[facility] [address] [place], [address] MCHC (RBC) [Mass/Vol] 33.2 g/dL Normal 32-36 [facility] Comment on above: Performed By: #### L 500.4050, L500.4100, L100.0100, L300.4310 ####[facility] [address] [place], [address] MCV (RBC) [Entitic vol] 93.7 fL Normal 81-99 [facility] Comment on above: Performed By: #### L 500.4050, L500.4100, L100.0100, L300.4310 ####[facility] [address] [place], [address] Monocytes/100 WBC (Bld) 7.4 % Normal 0-10 [facility] Comment on above: Performed By: #### L 500.4050, L500.4100, L100.0100, L300.4310 ####[facility] [address] [place], [address] Neutrophils/100 WBC (Bld) 62.0 % Normal 47-70 [facility] Comment on above: Performed By: #### L 500.4050, L500.4100, L100.0100, L300.4310 ####[facility] [address] [place], [address] Nucleated RBC (Bld) [#/Vol] 0 10*3/uL Normal 0-5 [facility] Comment on above: Performed By: #### L 500.4050, L500.4100, L100.0100, L300.4310 ####[facility] [address] [place], [address] Platelet mean volume (Bld) [Entitic vol] 9.4 fL Normal 6.2-12.0 [facility] Comment on above: Performed By: #### L 500.4050, L500.4100, L100.0100, L300.4310 ####[facility] [address] [place], [address] Platelets (Bld) [#/Vol] 288 10*3/uL Normal 150-450 [facility] Comment on above: Performed By: #### L 500.4050, L500.4100, L100.0100, L300.4310 ####[facility] [address] [place], [address] RBC (Bld) [#/Vol] 4.76 10*6/uL Normal 4.2-5.4 [facility] Comment on above: Performed By: #### L 500.4050, L500.4100, L100.0100, L300.4310 ####[facility] [address] [place], [address] RDW SD 42.8 fl Normal 35.1-43.9 [facility] Comment on above: Performed By: #### L 500.4050, L500.4100, L100.0100, L300.4310 ####[facility] [address] [place], [address] WBC (Bld) [#/Vol] 6.8 10*3/uL Normal 4.4-11.0 [facility] Comment on above: Performed By: #### L 500.4050, L500.4100, L100.0100, L300.4310 ####[facility] [address] [place], [address] Chest PA and Lateralon 04-18 Chest PA and Lateral [facility] Imaging Services [address] [place] [address] Chest PA and Lateral MR#: [id number] Acct: [id number] Name: NISSA TROTTER Rep #: [id number] : 1955 F 68 From: Arun daily MD PCP: Dr. Teresa Boggs, DO Status: REG CLI Study: Chest PA and Lateral Date of Exam: 04/18/24 Exam# [id number] Ordering Dr: Ana Bailey PA PA 1:[id number] STUDY: X-RAY CHEST REASON FOR EXAM: Female, 68 years old. for heart cath: chest pressure TECHNIQUE: Frontal and lateral views of the chest. COMPARISON: 02/24/2022. FINDINGS: The lungs are clear and expanded. There is no demonstrated pleural abnormality. Sternal cerclage wires are present from a prior sternotomy. Normal mediastinum and marisabel. Normal visualized pulmonary arteries. Normal visualized aortic arch and descending thoracic aorta. Normal visualized thoracic spine. Normal visualized ribs, clavicles, and shoulders. There is no demonstrated abnormality of the visualized soft tissue structures of the upper abdomen. RAD/Chest PA and Lateral IMPRESSION: No definite acute or significant abnormality seen. Electronically Signed: Arun Ramachandran MD at 16:51 EDT , CC: Dr. Teresa Boggs, DO; JENNY Beasley Hay Buckler: Signed Normal [facility] Comprehensive Metabolic Prof ilon 04-18-2024 Albumin [Mass/Vol] 4.2 g/dL Normal 3.2-5.0 [facility] Comment on above: Performed By: #### L 500.4050, L500.4100, L100.0100, L300.4310 ####[facility] [address] [place], [address] Albumin/Globulin [Mass ratio] 1.2 {ratio} Normal 0.9-2.4 [facility] Comment on above: Performed By: #### L 500.4050, L500.4100, L100.0100, L300.4310 ####[facility] [address] [place], [address] ALK P 64 U/L Normal 45-117 [facility] Comment on above: Performed By: #### L 500.4050, L500.4100, L100.0100, L300.4310 ####[facility] [address] [place], [address] ALT [Catalytic activity/Vol] 21 U/L Normal 13-56 [facility] Comment on above: Performed By: #### L 500.4050, L500.4100, L100.0100, L300.4310 ####[facility] [address] [place], [address] AST [Catalytic activity/Vol] 24 U/L Normal 15-37 [facility] Comment on above: Performed By: #### L 500.4050, L500.4100, L100.0100, L300.4310 ####[facility] [address] [place], [address] Bilirubin [Mass/Vol] 0.70 mg/dL Normal 0.20-1.00 [facility] Comment on above: Result Comment: For patients on eltrombopag therapy, use of Dimension [place] TBIL is not recommended. Performed By: #### L 500.4050, L500.4100, L100.0100, L300.4310 ####[facility] [address] [place], [address] BUN/CRE 16.4 RATIO Normal 10-20 [facility] Comment on above: Performed By: #### L 500.4050, L500.4100, L100.0100, L300.4310 ####[facility] [address] [place], [address] CA,Total 9.7 mg/dL Normal 8.5-10.1 [facility] Comment on above: Performed By: #### L 500.4050, L500.4100, L100.0100, L300.4310 ####[facility] [address] [place], [address] Chloride [Moles/Vol] 106 mmol/L Normal 98-107 [facility] Comment on above: Performed By: #### L 500.4050, L500.4100, L100.0100, L300.4310 ####[facility] [address] [place], [address] CO2 [Moles/Vol] 25.0 mmol/L Normal 21.0-32.0 [facility] Comment on above: Performed By: #### L 500.4050, L500.4100, L100.0100, L300.4310 ####[facility] [address] [place], [address] Creatinine [Mass/Vol] 1.28 mg/dL High 0.55-1.02 [facility] Comment on above: Result Comment: The validity of the calculated GFR GFRAA in patients over 70 years has not been determined. Clinical correlation is essential. Performed By: #### L 500.4050, L500.4100, L100.0100, L300.4310 ####[facility] [address] [place], [address] EST GFR - AA 53 mL/min Low >60 [facility] Comment on above: Result Comment: Afri can Cameroonian GFR Calc Performed By: #### L 500.4050, L500.4100, L100.0100, L300.4310 ####[facility] [address] [place], [address] GAP 6 Normal 5-15 [facility] Comment on above: Performed By: #### L 500.4050, L500.4100, L100.0100, L300.4310 ####[facility] [address] [place], [address] GFR/1.73 sq M.predicted among non-blacks MDRD (S/P/Bld) [Vol rate/Area] 44 mL/min/{1.73_m2} Low >60 [facility] Comment on above: Result Comment: Non- GFR Calc Performed By: #### L 500.4050, L500.4100, L100.0100, L300.4310 ####[facility] [address] [place], [address] Globulin (S) [Mass/Vol] 3.4 g/dL Normal 2.2-4.2 [facility] Comment on above: Performed By: #### L 500.4050, L500.4100, L100.0100, L300.4310 ####[facility] [address] [place], [address] Glucose [Mass/Vol] 111 mg/dL High 74-106 [facility] Comment on above: Result Comment: Fast ing Glucose result from 100 to 125 mg/dL suggests IMPAIRED HOMEOSTASIS per A.D.A. criteria. Performed By: #### L 500.4050, L500.4100, L100.0100, L300.4310 ####[facility] [address] [place], [address] Potassium [Moles/Vol] 4.2 mmol/L Normal 3.5-5.1 [facility] Comment on above: Performed By: #### L 500.4050, L500.4100, L100.0100, L300.4310 ####[facility] [address] [place], [address] Sodium [Moles/Vol] 137 mmol/L Normal 136-145 [facility] Comment on above: Performed By: #### L 500.4050, L500.4100, L100.0100, L300.4310 ####[facility] [address] [place], [address] T PROT 7.6 g/dL Normal 6.4-8.2 [facility] Comment on above: Performed By: #### L 500.4050, L500.4100, L100.0100, L300.4310 ####[facility] [address] [place], [address] Urea nitrogen [Mass/Vol] 21 mg/dL High 7-18 [facility] Comment on above: Performed By: #### L 500.4050, L500.4100, L100.0100, L300.4310 ####[facility] [address] [place], [address] Lipid Profileon 04-18-2024 Cholesterol [Mass/Vol] 194 mg/dL Normal 200 [facility] Comment on above: Result Comment: <200 mg/dL Desirable 200-240 mg/dL Borderline >240 mg/dL High Risk Performed By: #### L 500.4050, L500.4100, L100.0100, L300.4310 ####[facility] [address] [place], [address] Cholesterol in HDL [Mass/Vol] 69 mg/dL Normal [facility] Comment on above: Result Comment: The drugs N-Acetylcysteine and Metamizole may falsely depress this assay. Reference Range HDL <40 mg/dL Low HDL Cholesterol HDL >or= 60 mg/dL High HDL Cholesterol Performed By: #### L 500.4050, L500.4100, L100.0100, L300.4310 ####[facility] [address] [place], [address] Cholesterol in LDL [Mass/Vol] 101 mg/dL Normal 0-130 [facility] Comment on above: Performed By: #### L 500.4050, L500.4100, L100.0100, L300.4310 ####[facility] [address] [place], [address] Cholesterol in VLDL [Mass/Vol] 24 mg/dL Normal 5-40 [facility] Comment on above: Performed By: #### L 500.4050, L500.4100, L100.0100, L300.4310 ####[facility] [address] [place], [address] Triglyceride [Mass/Vol] 121 mg/dL Normal [facility] Comment on above: Result Comment: The drugs N-Acetylcysteine and Metamizole may falsely depress this assay. Serum Triglycerides Reference Interval Normal <150 mg/dL Borderline high 150 - 199 mg/dL High 200 - 499 mg/dL Very High > or = 500 mg/dL Performed By: #### L 500.4050, L500.4100, L100.0100, L300.4310 ####[facility] [address] [place], [address] Partial Thromboplast Timeon 04-18-2024 aPTT Coag (Bld) [Time] 26.7 s Normal 24.1-36.2 [facility] Comment on above: Performed By: #### L 500.4050, L500.4100, L100.0100, L300.4310 ####[facility] [address] [place], [address] Carotid Duplex Ultrasoundon 04-14-2024 Carotid Duplex Ultrasound [facility] [address] [place] [address] Carotid Duplex Ultrasound 04/14/24 1246 MR#: [id number] Acct: [id number] Name: NISSA TROTTER Rep #: [id number] : 1955 68 From: Bassam Ray MD Attending Dr: JENNY Beasley Status: REG CLI Ordering Dr: Ana Bailey PA Date: 03/28 02/18 Location: [facility] Sex: F C Admitted: Reason For Study: Bilateral Carotid Bruit Rt. Velocities/BP Lt. Velocities/BP Prox CCA 67.6/11.0 cm/sec. Prox CCA 94.1/18.2 cm/sec. Mid CCA 55.2/11.8 cm/sec. Mid CCA 88.6/17.1 cm/sec. Dist CCA 53.1/13.2 cm/sec. Dist CCA 76.1/20.4 cm/sec. Prox ICA 50.9/15.0 cm/sec. Prox ICA 62.0/18.5 cm/sec. Mid ICA 100.3/29.0 cm/sec. Mid ICA 68.6/22.3 cm/sec. Dist ICA 60.5/14.5 cm/sec. Dist ICA 74.4/22.5 cm/sec. Rt. ICA/CCA = 1.8. Lt. ICA/CCA = 0.8. Prox ECA 124.7/12.0 cm/sec. Prox ECA 208.9/27.5 cm/sec. Rt. Vert. 59.8/15.4 cm/sec. Lt. Vert. 47.9/19.3 cm/sec. Right Extracranial There is heterogeneous, irregular atherosclerotic plaque noted in the right common carotid artery. There is heterogeneous, irregular atherosclerotic plaque noted in the right internal carotid artery. There is heterogeneous, irregular atherosclerotic plaque noted in the right external carotid artery. Antegrade flow is noted in the right vertebral artery. Left Extracranial There is heterogeneous, irregular atherosclerotic plaque noted in the left common carotid artery. There is heterogeneous, irregular atherosclerotic plaque noted in the left internal carotid artery. There is heterogeneous, irregular atherosclerotic plaque noted in the left external carotid artery. Antegrade flow is noted in the left vertebral artery. VL/Carotid Duplex Ultrasound Interpretation Summary Mild (<50%) stenosis right extracranial internal carotid. Mild (<50%) stenosis left extracranial internal carotid. Patent and antegrade vertebrals bilaterally. Ordering Physician: Ana Bailey Referring Physician: Teresa Boggs Performed By: Arjun Cooper, [facility] 04/18/24 1600 Date Bassam Ray MD CC: Dr. Teresa Boggs DO; JENNY Beasley Date Dictated: 04/14/24 1246 Date Transcribed: 04/18/24 1600 Hay Buckler: Signed [facility] Comprehensive Metabolic Prof [facility] 04-14-2024 Albumin [Mass/Vol] 4.2 g/dL Normal 3.2-5.0 [facility] Comment on above: Performed By: #### L 506.0400, L500.4050, L500.4100, L501.25080, L501.9520 ####[facility] [address] [place], [address] Albumin/Globulin [Mass ratio] 1.2 {ratio} Normal 0.9-2.4 [facility] Comment on above: Performed By: #### L 506.0400, L500.4050, L500.4100, L501.54329, L501.9520 ####[facility] [address] [place], [address] ALK P 66 U/L Normal 45-117 [facility] Comment on above: Performed By: #### L 506.0400, L500.4050, L500.4100, L501.76407, L501.9520 ####[facility] [address] [place], [address] ALT [Catalytic activity/Vol] 19 U/L Normal 13-56 [facility] Comment on above: Performed By: #### L 506.0400, L500.4050, L500.4100, L501.68142, L501.9520 ####[facility] [address] [place], [address] AST [Catalytic activity/Vol] 23 U/L Normal 15-37 [facility] Comment on above: Performed By: #### L 506.0400, L500.4050, L500.4100, L501.17677, L501.9520 ####[facility] [address] [place], [address] Bilirubin [Mass/Vol] 1.10 mg/dL High 0.20-1.00 [facility] Comment on above: Result Comment: For patients on eltrombopag therapy, use of Dimension [place] TBIL is not recommended. Performed By: #### L 506.0400, L500.4050, L500.4100, L501.15456, L501.9520 ####[facility] [address] [place], [address] BUN/CRE 17.2 RATIO Normal 10-20 [facility] Comment on above: Performed By: #### L 506.0400, L500.4050, L500.4100, L501.04744, L501.9520 ####[facility] [address] [place], [address] CA,Total 9.6 mg/dL Normal 8.5-10.1 [facility] Comment on above: Performed By: #### L 506.0400, L500.4050, L500.4100, L501.01008, L501.9520 ####[facility] [address] [place], [address] Chloride [Moles/Vol] 107 mmol/L Normal 98-107 [facility] Comment on above: Performed By: #### L 506.0400, L500.4050, L500.4100, L501.46382, L501.9520 ####[facility] [address] [place], [address] CO2 [Moles/Vol] 24.0 mmol/L Normal 21.0-32.0 [facility] Comment on above: Performed By: #### L 506.0400, L500.4050, L500.4100, L501.29259, L501.9520 ####[facility] [address] [place], [address] Creatinine [Mass/Vol] 1.22 mg/dL High 0.55-1.02 [facility] Comment on above: Result Comment: The validity of the calculated GFR GFRAA in patients over 70 years has not been determined. Clinical correlation is essential. Performed By: #### L 506.0400, L500.4050, L500.4100, L501.07718, L501.9520 ####[facility] [address] [place], [address] EST GFR - AA 56 mL/min Low >60 [facility] Comment on above: Result Comment: Afri can Cameroonian GFR Calc Performed By: #### L 506.0400, L500.4050, L500.4100, L501.18883, L501.9520 ####[facility] [address] [place], [address] GAP 7 Normal 5-15 [facility] Comment on above: Performed By: #### L 506.0400, L500.4050, L500.4100, L501.00752, L501.9520 ####[facility] [address] [place], [address] GFR/1.73 sq M.predicted among non-blacks MDRD (S/P/Bld) [Vol rate/Area] 46 mL/min/{1.73_m2} Low >60 [facility] Comment on above: Result Comment: Non- GFR Calc Performed By: #### L 506.0400, L500.4050, L500.4100, L501.71342, L501.9520 ####[facility] [address] [place], [address] Globulin (S) [Mass/Vol] 3.6 g/dL Normal 2.2-4.2 [facility] Comment on above: Performed By: #### L 506.0400, L500.4050, L500.4100, L501.12474, L501.9520 ####[facility] [address] [place], [address] Glucose [Mass/Vol] 104 mg/dL Normal 74-106 [facility] Comment on above: Result Comment: Fast ing Glucose result from 100 to 125 mg/dL suggests IMPAIRED HOMEOSTASIS per A.D.A. criteria. Performed By: #### L 506.0400, L500.4050, L500.4100, L501.74053, L501.9520 ####[facility] [address] [place], [address] Potassium [Moles/Vol] 4.0 mmol/L Normal 3.5-5.1 [facility] Comment on above: Performed By: #### L 506.0400, L500.4050, L500.4100, L501.33278, L501.9520 ####[facility] [address] [place], [address] Sodium [Moles/Vol] 138 mmol/L Normal 136-145 [facility] Comment on above: Performed By: #### L 506.0400, L500.4050, L500.4100, L501.96377, L501.9520 ####[facility] [address] [place], [address] T PROT 7.8 g/dL Normal 6.4-8.2 [facility] Comment on above: Performed By: #### L 506.0400, L500.4050, L500.4100, L501.26994, L501.9520 ####[facility] [address] [place], [address] Urea nitrogen [Mass/Vol] 21 mg/dL High 7-18 [facility] Comment on above: Performed By: #### L 506.0400, L500.4050, L500.4100, L501.56308, L501.9520 ####[facility] [address] [place], [address] Free T3on 04-14-2024 Free T3 [Mass/Vol] 2.1 pg/mL Low 2.18-3.98 [facility] Comment on above: Performed By: #### L 506.0400, L500.4050, L500.4100, L501.59718, L501.9520 ####[facility] [address] [place], [address] Lipid Profileon 04-14-2024 Cholesterol [Mass/Vol] 188 mg/dL Normal 200 [facility] Comment on above: Result Comment: <200 mg/dL Desirable 200-240 mg/dL Borderline >240 mg/dL High Risk Performed By: #### L 506.0400, L500.4050, L500.4100, L501.34319, L501.9520 ####[facility] [address] [place], [address] Cholesterol in HDL [Mass/Vol] 63 mg/dL Normal [facility] Comment on above: Result Comment: The drugs N-Acetylcysteine and Metamizole may falsely depress this assay. Reference Range HDL <40 mg/dL Low HDL Cholesterol HDL >or= 60 mg/dL High HDL Cholesterol Performed By: #### L 506.0400, L500.4050, L500.4100, L501.00822, L501.9520 ####[facility] [address] [place], [address] Cholesterol in LDL [Mass/Vol] 95 mg/dL Normal 0-130 [facility] Comment on above: Performed By: #### L 506.0400, L500.4050, L500.4100, L501.77466, L501.9520 ####[facility] [address] [place], [address] Cholesterol in VLDL [Mass/Vol] 30 mg/dL Normal 5-40 [facility] Comment on above: Performed By: #### L 506.0400, L500.4050, L500.4100, L501.77642, L501.9520 ####[facility] [address] [place], [address] Triglyceride [Mass/Vol] 152 mg/dL Normal [facility] Comment on above: Result Comment: The drugs N-Acetylcysteine and Metamizole may falsely depress this assay. Serum Triglycerides Reference Interval Normal <150 mg/dL Borderline high 150 - 199 mg/dL High 200 - 499 mg/dL Very High > or = 500 mg/dL Performed By: #### L 506.0400, L500.4050, L500.4100, L501.55985, L501.9520 ####[facility] [address] [place], [address] T4 Free Directon 04-14-2024 T4 FREE DIRECT 0.92 ng/dL Normal 0.76-1.46 [facility] Comment on above: Performed By: #### L 506.0400, L500.4050, L500.4100, L501.61359, L501.9520 ####[facility] [address] [place], [address] Thyroid Stim Hormone (TSH)on 04-14-2024 TSH 4.420 uIU/mL High 0.358-3.74 0 [facility] Comment on above: Performed By: #### L 506.0400, L500.4050, L500.4100, L501.78560, L501.9520 ####[facility] [address] [place], [address] Broadcast Chief Engineer Office Visit Reporton 04-06-2024 Broadcast Chief Engineer Office Visit Report [facility] [address], [address] [place] [address] OFFICE VISIT Date of Service: 04/06/24 MR#: [id number] Acct: [id number] Name: NISSA TROTTER Rep #: [id number] : 1955 Provider: CARLI Hu Age/Sex: 68/F Location: [facility] Status: Signed Intake Vital Signs 03/28/24 10:10 04/06/24 11:32 04/06/24 11:36 Height 5 ft 1 in 5 ft 1 in 5 ft 1 in Weight: 171 lb 171 lb BMI 32.3 32.3 BP 136/83 H 139/85 H Blood Pressure Location Lt brachial Position Sitting Respiration 18 Pulse 69 Pulse Source Monitor Pulse Oximetry (%) 95 Intake Visit Reasons: MED CHECK-VAGINAL ATROPHY Chief Complaint: 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 check 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: No Is patient in pain?: No Allergies adhesive tape Allergy (Verified 04/06/24 11:33) Rash doxazosin Allergy (Verified 04/06/24 11:33) DROPS HEART RATE furosemide (From Lasix) Allergy (Verified 04/06/24 11:33) Itching latex Allergy (Verified 04/06/24 11:33) Rash lisinopril Allergy (Verified 04/06/24 11:33) Angioedema codeine Adverse Reaction (Verified 04/06/24 11:33) Itching oxycodone HCl (From Percocet) Adverse Reaction (Verified 04/06/24 11:33) Itching tramadol HCl (From Ultram) Adverse Reaction (Verified 04/06/24 11:33) Itching Medications ???Medication ???Instructions ???Recorded ???Confirmed ???Type omega-3 fatty acids 500 mg capsule 1,500 mg PO DAILY SUPPLEMENT 10/20/15 04/06/24 History aspirin 81 mg chewable tablet 81 mg PO DAILY@0800 ANTIPLATELET 09/24/16 04/06/24 History cetirizine 10 mg capsule 10 mg PO DAILY 11/02/19 04/06/24 History cyclobenzaprine 5 mg tablet 5 mg PO PRN PRN Muscle Pain 05/06/22 04/06/24 History calcium carbonate-vitamin D3 500 1 cap PO DAILY 06/08/22 04/06/24 History mg (1,250 mg)-50 unit capsule duloxetine 60 mg capsule,delayed 60 mg PO DAILY 07/10/22 04/06/24 History release levothyroxine 50 mcg tablet 50 mcg PO MOTUWETHFRSA 07/10/22 04/06/24 History nitroglycerin 0.4 mg sublingual See Rx Instructions .Route 03/30/23 04/06/24 Rx tablet .COMPLEX #25 tabs buspirone 5 mg tablet 15 mg PO TID MENTAL HEALTH 05/26/23 04/06/24 History amlodipine 10 mg tablet 10 mg PO DAILY #90 tabs 03/28/24 04/06/24 Rx clopidogrel 75 mg tablet 75 mg PO DAILY antiplatelet #90 03/28/24 04/06/24 Rx tabs isosorbide mononitrate 30 mg 30 mg PO BID #180 tabs 03/28/24 04/06/24 Rx tablet,extended release 24 hr metoprolol tartrate 25 mg tablet 25 mg PO BID #180 tabs 03/28/24 04/06/24 Rx pravastatin 80 mg tablet 80 mg PO QHS CHOLESTEROL #90 tabs 03/28/24 04/06/24 Rx spironolactone 25 mg tablet 25 mg PO DAILY #90 tabs 03/28/24 04/06/24 Rx (Aldactone) estradiol 0.01% (0.1 mg/gram) See Rx Instructions .Route 04/06/24 04/06/24 Rx vaginal cream .COMPLEX #42.5 grams Is last menstrual period known: No Post menopausal: Yes Patient : No : No Control Method: menopause [facility] History Bilateral carotid bruits Easy bruising 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 Wears partial dentures Wears glasses Post-menopausal Cancer Depression Anxiety History of steroid therapy Thyroid disease Arthritis Back pain History of IBS CPAP (continuous positive airway pressure) dependence History of echocardiogram History of stress test Hypertension Cardiology follow-up encounter History of heart attack History of atrial fibrillation Former smoker Personal history of skin cancer Neoplasm of skin of ear ELODIA (obstructive sleep apnea) High triglycerides Anxiety and depression Allergies Alcohol abuse Actinic keratoses IBS (irritable bowel syndrome) Myocardial infarct Bipolar 1 disorder TIA (transient ischemic attack) Blurred vision, bilateral Slurred speech Chronic diastolic (congestive) heart failure Subluxation of left thumb Essential (primary) hypertension Non-rheumatic tricuspid valve insufficiency Atherosclerosis of coronary artery of [place] heart with angina pectoris CVA (cerebral vascular accident) Basal cell carcinoma of neck Hypothyroidism GERD (gastroesophageal reflux disease) Osteoarthritis Fibromyalgia Seizure disorder Post traumatic stress disorder (PTSD) Hyperlipidemia Surgical History History of excision of lesion Hx of surgical procedure History of coronary artery stent placement Hx of foot surgery Hx of foot surgery History of esophagogastroduodenoscopy (EGD) History of basal cell carcinoma excision History of left heart catheterization (03/25/20) H/O coronary artery bypass surgery (10/21/07) Family History Father CAD (coronary artery disease) Hypertension Mothe (more content not included)... Normal [facility] Cardiology Visit Reporton Cardiology Visit Report [facility] [address] [place] [address] OFFICE VISIT Date of Service: 03/28/24 MR#: [id number] Acct: [id number] Name: NISSA TROTTER Rep #: [id number] : 1955 Provider: JENNY Gomez Age/Sex: 68/F Location[place] [facility] Status: Signed HPI HPI History of Present Illness Details: NISSA TROTTER, is a 68 F who presents today for a cardiovascular follow- up visit. She is a lady with a history of coronary artery disease status post cardiac catheterization in 2015 demonstrating a normal left main coronary artery, left anterior descending artery which was previously bypassed, circumflex artery with an 80% stenotic lesion and a 95% bifurcating RCA lesion. The circumflex artery had a saphenous vein graft which was patent and the left internal mammary artery was atretic. 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 She was seen in 2019 and despite a normal stress test she had complained of chest discomfort and therefore underwent a cardiac catheterization which demonstrated a high-grade stenosis of the saphenous vein graft to the second obtuse marginal branch. She underwent 2 drug- eluting stents to the above. Stress test in 2023 was negative for ischemia. Pt has been having some swelling in her face and sometimes in her arms. She does sometimes have swelling in her legs. She does not have any chest discomfort/heaviness/tightn ess. Her exercise tolerance is stable for her age. She does walk daily, and pulls a cart to get her groceries. She does think that her SOB with exertion has worsened over the last 4 months. She does not have any orthopnea. She denies PND. She does not have any symptoms of congestive heart failure. She does not have any palpitations that she is aware of. She does not have any lightheadedness or dizziness. She does not have any near-syncope or syncope. She does have foot pain. She does not have any symptoms of claudication. 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??Instructions ???Recorded ???Confirmed ???Type omega-3 fatty acids 500 mg capsule 1,500 mg PO DAILY SUPPLEMENT 10/20/15 02/02/24 History aspirin 81 mg chewable tablet 81 mg PO DAILY@0800 ANTIPLATELET 09/24/16 03/28/24 History cetirizine 10 mg capsule 10 mg PO DAILY 11/02/19 03/28/24 History cyclobenzaprine 5 mg tablet 5 mg PO PRN PRN Muscle Pain 05/06/22 03/28/24 History calcium carbonate-vitamin D3 500 1 cap PO DAILY 06/08/22 03/28/24 History mg (1,250 mg)-50 unit capsule duloxetine 60 mg capsule,delayed 60 mg PO DAILY 07/10/22 03/28/24 History release levothyroxine 50 mcg tablet 50 mcg PO MOTUWETHFRSA 07/10/22 03/28/24 History nitroglycerin 0.4 mg sublingual See Rx Instructions .Route 03/30/23 03/28/24 Rx tablet .COMPLEX #25 tabs buspirone 5 mg tablet 15 mg PO TID MENTAL HEALTH 05/26/23 03/28/24 History estradiol 0.01% (0.1 mg/gram) See Rx Instructions .Route 02/02/24 03/28/24 Rx vaginal cream .COMPLEX #42.5 grams amlodipine 10 mg tablet 10 mg PO DAILY #90 tabs 03/28/24 03/28/24 Rx clopidogrel 75 mg tablet 75 mg PO DAILY antiplatelet #90 03/28/24 03/28/24 Rx tabs isosorbide mononitrate 30 mg 30 mg PO BID #180 tabs 03/28/24 03/28/24 Rx tablet,extended release 24 hr metoprolol tartrate 25 mg tablet 25 mg PO BID #180 tabs 03/28/24 03/28/24 Rx pravastatin 80 mg tablet 80 mg PO QHS CHOLESTEROL #90 tabs 03/28/24 03/28/24 Rx spironolactone 25 mg tablet 25 mg PO DAILY #90 tabs 03/28/24 03/28/24 Rx (Aldactone) Have you fallen in the past year?: No [facility] Medical History (Updated 03/28/24 @ 10:35 by Ana ALVARADO, PA) Bilateral carotid bruits Easy bruising 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 Wears partial dentures Wears glasses Post-menopausal Cancer Depression Anxiety History of steroid therapy Thyroid disease Arthritis (more content not included)... Normal [facility] Basophil percentageOrdered B y: Teresa Boggs on 10-05-2023 Bilirubin [Mass/Vol] 0.70 mg/dL 0.20-1.00 [facility] Comment on above: For patients on eltr ombopag therapy, use of Dimension [place] TBIL is not recommended. Chloride [Moles/Vol] 107 mmol/L 98-107 [facility] Glucose [Mass/Vol] 99 mg/dL 74-106 [facility] Potassium [Moles/Vol] 4.3 mmol/L 3.5-5.1 [facility] Protein [Mass/Vol] 7.2 g/dL 6.4-8.2 [facility] Sodium [Moles/Vol] 137 mmol/L 136-145 [facility] Laboratory - Chemistry and C hemistry - challengeOrdered By: Teresa Boggs on 10-05-2023 Albumin/Globulin [Mass ratio] 1.2 {ratio} 0.9-2.4 [facility] ALP [Catalytic activity/Vol] 53 U/L 45-117 [facility] ALT [Catalytic activity/Vol] 19 U/L 13-56 [facility] CO2 [Moles/Vol] 20.0 mmol/L 21.0-32.0 [facility] Globulin (S) [Mass/Vol] 3.2 g/dL 2.2-4.2 [facility] Urea nitrogen/Creatinine [Mass ratio] 17.0 mg/mg 10-20 [facility] No Panel InformationOrdered By: Teresa Boggs on 10-05-2023 Estimated GFR (MDRD) Amer 62 mL/min >60 [facility] Comment on above: GFR Calc Estimated GFR (MDRD) Non-Af Amer 51 mL/min >60 [facility] Comment on above: Non- GFR Calc Free Triiodothyronine (T3) pg/dL 2.1 pg/mL 2.18-3.98 [facility] Serum or plasma calcium cate urement (mass/volume)Ordered By: Teresa Boggs on 10-05-2023 Calcium [Mass/Vol] 9.3 mg/dL 8.5-10.1 [facility] Serum or plasma creatinine m easurement (mass/volume)Ordered By: Teresa Boggs on 10-05-2023 Creatinine [Mass/Vol] 1.12 mg/dL 0.55-1.02 [facility] Comment on above: The validity of the calculated GFR & GFRAA in patients over 70 years has not been determined. Clinical correlation is essential. Serum or plasma thyroid stim ulating hormone (TSH) measurement (units/volume)Ordered By: Teresa Boggs on 10-05-2023 TSH Qn 3.19 uIU/mL 0.358-3.74 [facility] Serum or plasma urea nitroge n measurement (mass/volume)Ordered By: Teresa Boggs on 10-05-2023 Urea nitrogen [Mass/Vol] 19 mg/dL 7-18 [facility] Thin prep Papanicolaou smear with manual screeningOrdered By: Teresa Boggs on 10-05-2023 Thin prep Papanicolaou smear with manual screening 4.0 g/dL 3.2-5.0 [facility] Thin prep Papanicolaou smear with manual screening 19 U/L 15-37 [facility] Thin prep Papanicolaou smear with manual screening 10 5-15 [facility] Thin prep Papanicolaou smear with manual screening 0.93 ng/dL 0.76-1.46 [facility] Absolute lymphocyte countOrd ered By: Teresa Boggs on 2023 Lymphocytes Auto (Unsp spec) [#/Vol] 2.29 10*3/uL 0.83-4.51 [facility] Automated lymphocyte count a s percentage of total leukocytesOrdered By: Teresa Boggs on 2023 Lymphocytes/100 WBC Auto (Unsp spec) 25.7 % 19-41 [facility] Basophil percentageOrdered B y: Teresa Boggs on 2023 Basophils/100 WBC (Bld) 0.8 % 0-1 [facility] Chloride [Moles/Vol] 111 mmol/L 98-107 [facility] Eosinophils/100 WBC (Bld) 3.3 % 0-5 [facility] Glucose [Mass/Vol] 106 mg/dL 74-106 [facility] Comment on above: Fasting Glucose resu lt from 100 to 125 mg/dL suggests IMPAIRED HOMEOSTASIS per A.D.A. criteria. Hemoglobin (Bld) [Mass/Vol] 14.0 g/dL 12.0-15.0 [facility] Monocytes/100 WBC (Bld) 8.1 % 0-10 [facility] Neutrophils (Bld) [#/Vol] 5.5 10*3/uL 2.0-7.7 [facility] Neutrophils/100 WBC (Bld) 61.3 % 47-70 [facility] Potassium [Moles/Vol] 3.9 mmol/L 3.5-5.1 [facility] Sodium [Moles/Vol] 138 mmol/L 136-145 [facility] WBC (Bld) [#/Vol] 8.9 10*3/uL 4.4-11.0 [facility] Determination of erythrocyte mean corpuscular volume (MCV)Ordered By: Teresa Boggs on 2023 MCV (RBC) [Entitic vol] 96.2 fL 81-99 [facility] Erythrocyte distribution wid th ratioOrdered By: Teresa Boggs on 2023 Erythrocyte distribution width (RBC) [Ratio] 12.5 % 11.6-14.6 [facility] Erythrocyte distribution wid th standard deviationOrdered By: Teresa Boggs on 2023 Erythrocyte distribution width (RBC) [Entitic vol] 44.4 fL 35.1-43.9 [facility] Erythrocyte sedimentation ra teOrdered By: Teresa Boggs on 2023 ESR (Bld) [Velocity] 13 mm/h 0-30 [facility] Hematocrit Auto (Bld) [Volum e fraction]Ordered By: Teresa Boggs on 2023 Hematocrit (Bld) [Volume fraction] 43.2 % 37-47 [facility] Immature granulocytes/100 WB C Auto (Bld)Ordered By: Teresa Boggs on 2023 Immature granulocytes/100 WBC (Bld) 0.800 % 0.0-0.9 [facility] Comment on above: IG% - Immature Granu locytes (promyelocytes, myelocytes and metamyelocytes) > 1% indicates that a LEFT SHIFT is Present. Laboratory - Chemistry and C hemistry - challengeOrdered By: Teresa Boggs on 2023 CO2 [Moles/Vol] 21.0 mmol/L 21.0-32.0 [facility] Urea nitrogen/Creatinine [Mass ratio] 28.6 mg/mg 10-20 [facility] Laboratory - Hematology and Cell countsOrdered By: Teresa Boggs on 2023 MCH (RBC) [Entitic mass] 31.2 pg 27.0-32.0 [facility] MCHC (RBC) [Mass/Vol] 32.4 g/dL 32-36 [facility] Nucleated RBC/100 WBC (Bld) [Ratio] 0 % 0-5 [facility] Platelet mean volume (Bld) [Entitic vol] 9.0 fL 6.2-12.0 [facility] Platelets (Bld) [#/Vol] 275 10*3/uL 150-450 [facility] No Panel InformationOrdered By: Teresa Boggs on 2023 C-Reactive Protein Extended Range < 2.90 mg/L 0.0-3.0 [facility] Comment on above: C-Reactive Protein ( CRP) provides useful information for thediagnosis, therapy and monitoring of inflammatory processesand associated diseases. For the evaluation of Relative Riskfor Cardiovascular Disease, a High Sensitivity CRP (HSCRP)should be ordered. Estimated GFR (MDRD) Amer 67 mL/min >60 [facility] Comment on above: GFR Calc Estimated GFR (MDRD) Non-Af Amer 55 mL/min >60 [facility] Comment on above: Non- GFR Calc RBC Auto (Bld) [#/Vol]Ordere d By: Teresa Boggs on 2023 RBC (Bld) [#/Vol] 4.49 10*6/uL 4.2-5.4 [facility] Serum or plasma calcium cate urement (mass/volume)Ordered By: Teresa Boggs on 2023 Calcium [Mass/Vol] 9.5 mg/dL 8.5-10.1 [facility] Serum or plasma creatinine m easurement (mass/volume)Ordered By: Teresa Boggs on 2023 Creatinine [Mass/Vol] 1.05 mg/dL 0.55-1.02 [facility] Comment on above: The validity of the calculated GFR & GFRAA in patients over 70 years has not been determined. Clinical correlation is essential. Serum or plasma urea nitroge n measurement (mass/volume)Ordered By: Teresa Boggs on 2023 Urea nitrogen [Mass/Vol] 30 mg/dL 7-18 [facility] Thin prep Papanicolaou smear with manual screeningOrdered By: Teresa Boggs on 2023 Thin prep Papanicolaou smear with manual screening 6 5-15 [facility] Basophil percentageOrdered B y: Teresa Boggs on 07-27-2023 Bilirubin [Mass/Vol] 0.70 mg/dL 0.20-1.00 [facility] Comment on above: For patients on eltr ombopag therapy, use of Dimension [place] TBIL is not recommended. Protein [Mass/Vol] 7.0 g/dL 6.4-8.2 [facility] Direct bilirubinOrdered By: Teresa Boggs on 07-27-2023 Bilirubin.direct [Mass/Vol] 0.14 mg/dL 0.00-0.30 [facility] Laboratory - Chemistry and C hemistry - challengeOrdered By: Teresa Boggs on 07-27-2023 ALP [Catalytic activity/Vol] 58 U/L 45-117 [facility] ALT [Catalytic activity/Vol] 24 U/L 13-56 [facility] Globulin (S) [Mass/Vol] 3.1 g/dL 2.2-4.2 [facility] No Panel InformationOrdered By: Teresa Boggs on 07-27-2023 Free Triiodothyronine (T3) pg/dL 2.3 pg/mL 2.18-3.98 [facility] Serum or plasma thyroid stim ulating hormone (TSH) measurement (units/volume)Ordered By: Teresa Boggs on 07-27-2023 TSH Qn 2.19 uIU/mL 0.358-3.74 [facility] Thin prep Papanicolaou smear with manual screeningOrdered By: Teresa Boggs on 07-27-2023 Thin prep Papanicolaou smear with manual screening 3.9 g/dL 3.2-5.0 [facility] Thin prep Papanicolaou smear with manual screening 22 U/L 15-37 [facility] Thin prep Papanicolaou smear with manual screening 0.70 ng/dL 0.76-1.46 [facility] Basophil percentageOrdered B y: Dustin Allan on 07-01-2023 Bilirubin [Mass/Vol] 1.50 mg/dL 0.20-1.00 [facility] Comment on above: For patients on eltr ombopag therapy, use of Dimension [place] TBIL is not recommended. Cholesterol [Mass/Vol] 188 mg/dL <200 [facility] Comment on above: <200 mg/dL Desirable 200-240 mg/dL Borderline >240 mg/dL High Risk Protein [Mass/Vol] 7.7 g/dL 6.4-8.2 [facility] Triglyceride [Mass/Vol] 147 mg/dL <199 [facility] Comment on above: The drugs N-Acetylcy steine and Metamizole may falsely depress this assay.Serum Triglycerides Reference Interval Normal <150 mg/dL Borderline high 150 - 199 mg/dL High 200 - 499 mg/dL Very High > or = 500 mg/dL Direct bilirubinOrdered By: Dustin Lemus on 07-01-2023 Bilirubin.direct [Mass/Vol] 0.25 mg/dL 0.00-0.30 [facility] Laboratory - Chemistry and C hemistry - challengeOrdered By: Dustin Lemus on 07-01-2023 ALP [Catalytic activity/Vol] 58 U/L 45-117 [facility] ALT [Catalytic activity/Vol] 23 U/L 13-56 [facility] Globulin (S) [Mass/Vol] 3.5 g/dL 2.2-4.2 [facility] Serum or plasma albumin cate urement (mass/volume)Ordered By: Dustin Lemus on 07-01-2023 Albumin [Mass/Vol] 4.2 g/dL 3.2-5.0 [facility] Serum or plasma cholesterol in HDL measurement (mass/volume)Ordered By: Dustin Lemus on 07-01-2023 Cholesterol in HDL [Mass/Vol] 57 mg/dL >40 [facility] Comment on above: The drugs N-Acetylcy steine and Metamizole may falsely depress this assay. Reference Range HDL <40 mg/dL Low HDL Cholesterol HDL >or= 60 mg/dL High HDL Cholesterol Serum or plasma cholesterol in VLDL measurement (mass/volume)Ordered By: Dustin Lemus on 07-01-2023 Cholesterol in VLDL [Mass/Vol] 29 mg/dL 5-40 [facility] Serum or plasma low density lipoprotein (LDL) cholesterol measurement (mass/volume)Ordered By: Dustin Lemus on 07-01-2023 Cholesterol in LDL [Mass/Vol] 102 mg/dL 0-130 [facility] Thin prep Papanicolaou smear with manual screeningOrdered By: Dustin Lemus on 07-01-2023 Thin prep Papanicolaou smear with manual screening 28 U/L 15-37 [facility] Absolute lymphocyte countOrd ered By: Sharla Dubois on 01-07-2023 Lymphocytes Auto (Unsp spec) [#/Vol] 1.96 10*3/uL 0.83-4.51 [facility] Basophil percentageOrdered B y: Sharla Dubois on 01-07-2023 Basophils/100 WBC (Bld) 0.7 % 0-1 [facility] Chloride [Moles/Vol] 104 mmol/L 98-107 [facility] Eosinophils/100 WBC (Bld) 4.5 % 0-5 [facility] Glucose [Mass/Vol] 93 mg/dL 74-106 [facility] Neutrophils (Bld) [#/Vol] 3.9 10*3/uL 2.0-7.7 [facility] Neutrophils/100 WBC (Bld) 57.7 % 47-70 [facility] Potassium [Moles/Vol] 3.9 mmol/L 3.5-5.1 [facility] Sodium [Moles/Vol] 139 mmol/L 136-145 [facility] WBC (Bld) [#/Vol] 6.7 10*3/uL 4.4-11.0 [facility] Basophil percentageOrdered B y: Dustin Allan on 01-07-2023 Bilirubin [Mass/Vol] 0.80 mg/dL 0.20-1.00 [facility] Comment on above: For patients on eltr ombopag therapy, use of Dimension [place] TBIL is not recommended. Cholesterol [Mass/Vol] 193 mg/dL <200 [facility] Comment on above: <200 mg/dL Desirable 200-240 mg/dL Borderline >240 mg/dL High Risk Protein [Mass/Vol] 7.7 g/dL 6.4-8.2 [facility] Triglyceride [Mass/Vol] 277 mg/dL <199 [facility] Comment on above: The drugs N-Acetylcy steine and Metamizole may falsely depress this assay.Serum Triglycerides Reference Interval Normal <150 mg/dL Borderline high 150 - 199 mg/dL High 200 - 499 mg/dL Very High > or = 500 mg/dL Blood erythrocytes count (nu mber/volume)Ordered By: Sharla Dubois on 01-07-2023 RBC (Bld) [#/Vol] 4.34 10*6/uL 4.2-5.4 [facility] Blood hemoglobin measurement (mass/volume)Ordered By: Sharla Dubois on 01-07-2023 Hemoglobin (Bld) [Mass/Vol] 14.3 g/dL 12.0-15.0 [facility] Blood lymphocytes/100 leukoc ytesOrdered By: Sharla Dubois on 01-07-2023 Lymphocytes/100 WBC (Bld) 29.3 % 19-41 [facility] Blood monocytes/100 leukocyt esOrdered By: Sharla Dubois on 01-07-2023 Monocytes/100 WBC (Bld) 7.5 % 0-10 [facility] Blood platelet mean volumeOr dered By: Sharla Dubois on 01-07-2023 Platelet mean volume (Bld) [Entitic vol] 9.4 fL 6.2-12.0 [facility] Determination of erythrocyte mean corpuscular volume (MCV)Ordered By: Sharla Dubois on 01-07-2023 MCV (RBC) [Entitic vol] 97.2 fL 81-99 [facility] Direct bilirubinOrdered By: Dustin Lemus on 01-07-2023 Bilirubin.direct [Mass/Vol] 0.16 mg/dL 0.00-0.30 [facility] Hematocrit Auto (Bld) [Volum e fraction]Ordered By: Sharla Dubois on 01-07-2023 Hematocrit (Bld) [Volume fraction] 42.2 % 37-47 [facility] Laboratory - Chemistry and C hemistry - challengeOrdered By: Sharla Dubois on 01-07-2023 CO2 [Moles/Vol] 24.0 mmol/L 21.0-32.0 [facility] Free T4 [Mass/Vol] 0.86 ng/dL 0.76-1.46 [facility] Magnesium [Mass/Vol] 2.7 mg/dL 1.6-2.6 [facility] Natriuretic peptide B (Bld) [Mass/Vol] 107.4 pg/mL 0-100 [facility] Urea nitrogen/Creatinine [Mass ratio] 22.0 mg/mg 10-20 [facility] Laboratory - Chemistry and C hemistry - challengeOrdered By: Dsutin Lemus on 01-07-2023 ALP [Catalytic activity/Vol] 67 U/L 45-117 [facility] ALT [Catalytic activity/Vol] 23 U/L 13-56 [facility] Globulin (S) [Mass/Vol] 3.7 g/dL 2.2-4.2 [facility] Laboratory - Hematology and Cell countsOrdered By: Sharla Dubois on 01-07-2023 Erythrocyte distribution width (RBC) [Entitic vol] 44.7 fL 35.1-43.9 [facility] Erythrocyte distribution width (RBC) [Ratio] 12.3 % 11.6-14.6 [facility] Immature granulocytes/100 WBC (Bld) 0.300 % 0.0-0.9 [facility] Comment on above: IG% - Immature Granu locytes (promyelocytes, myelocytes and metamyelocytes) > 1% indicates that a LEFT SHIFT is Present. MCH (RBC) [Entitic mass] 32.9 pg 27.0-32.0 [facility] Nucleated RBC/100 WBC (Bld) [Ratio] 0 % 0-5 [facility] MCHC Auto (RBC) [Mass/Vol]Or dered By: Sharla Dubois on 01-07-2023 MCHC (RBC) [Mass/Vol] 33.9 g/dL 32-36 [facility] No Panel InformationOrdered By: Sharla Dubois on 01-07-2023 Estimated GFR (MDRD) Amer 59 mL/min >60 [facility] Comment on above: GFR Calc Estimated GFR (MDRD) Non-Af Amer 48 mL/min >60 [facility] Comment on above: Non- GFR Calc Free Triiodothyronine (T3) pg/dL 2.4 pg/mL 2.18-3.98 [facility] Thyroid Stimulating Hormone (TSH) 2.40 uIU/mL 0.358-3.74 [facility] Platelets bldOrdered By: Uday Dubois on 01-07-2023 Platelets (Bld) [#/Vol] 308 10*3/uL 150-450 [facility] Serum or plasma albumin cate urement (mass/volume)Ordered By: Dustin Lemus on 01-07-2023 Albumin [Mass/Vol] 4.0 g/dL 3.2-5.0 [facility] Serum or plasma calcium cate urement (mass/volume)Ordered By: Sharla Dubois on 01-07-2023 Calcium [Mass/Vol] 10.2 mg/dL 8.5-10.1 [facility] Serum or plasma cholesterol in HDL measurement (mass/volume)Ordered By: Dustin Lemus on 01-07-2023 Cholesterol in HDL [Mass/Vol] 54 mg/dL >40 [facility] Comment on above: The drugs N-Acetylcy steine and Metamizole may falsely depress this assay. Reference Range HDL <40 mg/dL Low HDL Cholesterol HDL >or= 60 mg/dL High HDL Cholesterol Serum or plasma cholesterol in VLDL measurement (mass/volume)Ordered By: Dustin Lemus on 01-07-2023 Cholesterol in VLDL [Mass/Vol] 55 mg/dL 5-40 [facility] Serum or plasma creatinine m easurement (mass/volume)Ordered By: Sharla Dubois on 01-07-2023 Creatinine [Mass/Vol] 1.18 mg/dL 0.55-1.02 [facility] Comment on above: The validity of the calculated GFR & GFRAA in patients over 70 years has not been determined. Clinical correlation is essential. Serum or plasma low density lipoprotein (LDL) cholesterol measurement (mass/volume)Ordered By: Dustin Lemus on 01-07-2023 Cholesterol in LDL [Mass/Vol] 84 mg/dL 0-130 [facility] Serum or plasma urea nitroge n measurement (mass/volume)Ordered By: Sharla Dubois on 01-07-2023 Urea nitrogen [Mass/Vol] 26 mg/dL 7-18 [facility] Thin prep Papanicolaou smear with manual screeningOrdered By: Sharla Dubois on 01-07-2023 Thin prep Papanicolaou smear with manual screening 11 5-15 [facility] Thin prep Papanicolaou smear with manual screeningOrdered By: Dustin Lemus on 01-07-2023 Thin prep Papanicolaou smear with manual screening 25 U/L 15-37 [facility] Basophil percentageOrdered B y: Dr. Boggs on 09-22-2022 Bilirubin [Mass/Vol] 1.20 mg/dL 0.20-1.00 [facility] Comment on above: For patients on eltr ombopag therapy, use of Dimension [place] TBIL is not recommended. Chloride [Moles/Vol] 104 mmol/L 98-107 [facility] Glucose [Mass/Vol] 103 mg/dL 74-106 [facility] Comment on above: Fasting Glucose resu lt from 100 to 125 mg/dL suggests IMPAIRED HOMEOSTASIS per A.D.A. criteria. Potassium [Moles/Vol] 4.4 mmol/L 3.5-5.1 [facility] Protein [Mass/Vol] 7.2 g/dL 6.4-8.2 [facility] Sodium [Moles/Vol] 135 mmol/L 136-145 [facility] Erythrocyte sedimentation ra teOrdered By: Dr. Boggs on 09-22-2022 ESR (Bld) [Velocity] 5 mm/h 0-30 [facility] Laboratory - Chemistry and C hemistry - challengeOrdered By: Dr. Boggs on 09-22-2022 ALP [Catalytic activity/Vol] 59 U/L 45-117 [facility] ALT [Catalytic activity/Vol] 25 U/L 13-56 [facility] CO2 [Moles/Vol] 25.0 mmol/L 21.0-32.0 [facility] Free T4 [Mass/Vol] 0.82 ng/dL 0.76-1.46 [facility] Globulin (S) [Mass/Vol] 3.2 g/dL 2.2-4.2 [facility] Magnesium [Mass/Vol] 2.5 mg/dL 1.6-2.6 [facility] Urea nitrogen/Creatinine [Mass ratio] 16.5 mg/mg 10-20 [facility] No Panel InformationOrdered By: Dr. Boggs on 09-22-2022 Estimated GFR (MDRD) Amer 54 mL/min >60 [facility] Comment on above: GFR Calc Estimated GFR (MDRD) Non-Af Amer 45 mL/min >60 [facility] Comment on above: Non- GFR Calc Free Triiodothyronine (T3) pg/dL 2.4 pg/mL 2.18-3.98 [facility] Thyroid Stimulating Hormone (TSH) 2.39 uIU/mL 0.358-3.74 [facility] Serum or plasma C reactive p rotein measurement (mass/volume)Ordered By: Dr. Boggs on 09-22-2022 CRP [Mass/Vol] mg/L 0.0-3.0 [facility] Comment on above: C-Reactive Protein ( CRP) provides useful information for thediagnosis, therapy and monitoring of inflammatory processesand associated diseases. For the evaluation of Relative Riskfor Cardiovascular Disease, a High Sensitivity CRP (HSCRP)should be ordered. Serum or plasma albumin cate urement (mass/volume)Ordered By: Dr. Boggs on 09-22-2022 Albumin [Mass/Vol] 4.0 g/dL 3.2-5.0 [facility] Serum or plasma albumin/glob ulin mass ratioOrdered By: Dr. Boggs on 09-22-2022 Albumin/Globulin [Mass ratio] 1.2 {ratio} 0.9-2.4 [facility] Serum or plasma calcium cate urement (mass/volume)Ordered By: Dr. Boggs on 09-22-2022 Calcium [Mass/Vol] 9.5 mg/dL 8.5-10.1 [facility] Serum or plasma creatinine m easurement (mass/volume)Ordered By: Dr. Boggs on 09-22-2022 Creatinine [Mass/Vol] 1.27 mg/dL 0.55-1.02 [facility] Comment on above: The validity of the calculated GFR & GFRAA in patients over 70 years has not been determined. Clinical correlation is essential. Serum or plasma urea nitroge n measurement (mass/volume)Ordered By: Dr. Boggs on 09-22-2022 Urea nitrogen [Mass/Vol] 21 mg/dL 7-18 [facility] Thin prep Papanicolaou smear with manual screeningOrdered By: Dr. Boggs on 09-22-2022 Thin prep Papanicolaou smear with manual screening 21 U/L 15-37 [facility] Thin prep Papanicolaou smear with manual screening 6 5-15 [facility] Laboratory - Chemistry and C hemistry - challengeOrdered By: Dr. Boggs on 07-30-2022 Free T4 [Mass/Vol] 0.81 ng/dL 0.76-1.46 [facility] No Panel InformationOrdered By: Dr. Boggs on 07-30-2022 Free Triiodothyronine (T3) pg/dL 1.9 pg/mL 2.18-3.98 [facility] Thyroid Stimulating Hormone (TSH) 2.49 uIU/mL 0.358-3.74 [facility] Basophil percentageOrdered B y: Dr. Lemus on 07-10-2022 Bilirubin [Mass/Vol] 0.80 mg/dL 0.20-1.00 [facility] Comment on above: For patients on eltr ombopag therapy, use of Dimension [place] TBIL is not recommended. Cholesterol [Mass/Vol] 170 mg/dL <200 [facility] Comment on above: <200 mg/dL Desirable 200-240 mg/dL Borderline >240 mg/dL High Risk Protein [Mass/Vol] 7.2 g/dL 6.4-8.2 [facility] Triglyceride [Mass/Vol] 190 mg/dL <199 [facility] Comment on above: The drugs N-Acetylcy steine and Metamizole may falsely depress this assay.Serum Triglycerides Reference Interval Normal <150 mg/dL Borderline high 150 - 199 mg/dL High 200 - 499 mg/dL Very High > or = 500 mg/dL Direct bilirubinOrdered By: Dr. Lemus on 07-10-2022 Bilirubin.direct [Mass/Vol] 0.22 mg/dL 0.00-0.30 [facility] Laboratory - Chemistry and C hemistry - challengeOrdered By: Dr. Lemus on 07-10-2022 ALP [Catalytic activity/Vol] 55 U/L 45-117 [facility] ALT [Catalytic activity/Vol] 25 U/L 13-56 [facility] Globulin (S) [Mass/Vol] 3.3 g/dL 2.2-4.2 [facility] Serum or plasma albumin cate urement (mass/volume)Ordered By: Dr. Lemus on 07-10-2022 Albumin [Mass/Vol] 3.9 g/dL 3.2-5.0 [facility] Serum or plasma cholesterol in HDL measurement (mass/volume)Ordered By: Dr. Lemus on 07-10-2022 Cholesterol in HDL [Mass/Vol] 66 mg/dL >40 [facility] Comment on above: The drugs N-Acetylcy steine and Metamizole may falsely depress this assay. Reference Range HDL <40 mg/dL Low HDL Cholesterol HDL >or= 60 mg/dL High HDL Cholesterol Serum or plasma cholesterol in VLDL measurement (mass/volume)Ordered By: Dr. Lemus on 07-10-2022 Cholesterol in VLDL [Mass/Vol] 38 mg/dL 5-40 [facility] Serum or plasma low density lipoprotein (LDL) cholesterol measurement (mass/volume)Ordered By: Dr. Lemus on 07-10-2022 Cholesterol in LDL [Mass/Vol] 66 mg/dL 0-130 [facility] Thin prep Papanicolaou smear with manual screeningOrdered By: Dr. Lemus on 07-10-2022 Thin prep Papanicolaou smear with manual screening 22 U/L 15-37 [facility] Laboratory - Chemistry and C hemistry - challengeOrdered By: Dr. Boggs on 05-28-2022 Free T4 [Mass/Vol] 0.89 ng/dL 0.76-1.46 [facility] No Panel InformationOrdered By: Dr. Boggs on 05-28-2022 Free Triiodothyronine (T3) pg/dL 2.2 pg/mL 2.18-3.98 [facility] Thyroid Stimulating Hormone (TSH) 0.34 uIU/mL 0.358-3.74 [facility] Laboratory - Chemistry and C hemistry - challengeOrdered By: Dr. Boggs on 03-31-2022 Free T4 [Mass/Vol] 1.06 ng/dL 0.76-1.46 [facility] No Panel InformationOrdered By: Dr. Boggs on 03-31-2022 Free Triiodothyronine (T3) pg/dL 3.6 pg/mL 2.18-3.98 [facility] Thyroid Stimulating Hormone (TSH) 0.08 uIU/mL 0.358-3.74 [facility] Absolute lymphocyte counton 02-24-2022 Lymphocytes Auto (Unsp spec) [#/Vol] 1.68 10*3/uL 0.83-4.51 [facility] Work Phone: Basophil percentageon 2021 Basophils/100 WBC (Bld) 0.7 % 0-1 [facility] Work Phone: Chloride [Moles/Vol] 105 mmol/L 98-107 [facility] Work Phone: Eosinophils/100 WBC (Bld) 3.2 % 0-5 [facility] Work Phone: [phone] Glucose [Mass/Vol] 118 mg/dL 74-106 [facility] Work Phone: [phone] Comment on above: Fasting Glucose resu lt from 100 to 125 mg/dL suggests IMPAIRED HOMEOSTASIS per A.D.A. criteria. Neutrophils (Bld) [#/Vol] 3.3 10*3/uL 2.0-7.7 [facility] Work Phone: [phone] Neutrophils/100 WBC (Bld) 54.7 % 47-70 [facility] Work Phone: Potassium [Moles/Vol] 3.3 mmol/L 3.5-5.1 [facility] Work Phone: Sodium [Moles/Vol] 140 mmol/L 136-145 [facility] Work Phone: WBC (Bld) [#/Vol] 6.0 10*3/uL 4.4-11.0 [facility] Work Phone: Blood erythrocytes count (nu mber/volume)on 02-24-2022 RBC (Bld) [#/Vol] 4.25 10*6/uL 4.2-5.4 [facility] Work Phone: Blood hemoglobin measurement (mass/volume)on 02-24-2022 Hemoglobin (Bld) [Mass/Vol] 13.5 g/dL 12.0-15.0 [facility] Work Phone: [phone] Blood lymphocytes/100 leukoc yteson 02-24-2022 Lymphocytes/100 WBC (Bld) 28.0 % 19-41 [facility] Work Phone: Blood monocytes/100 leukocyt eson 02-24-2022 Monocytes/100 WBC (Bld) 13.2 % 0-10 [facility] Work Phone: Blood platelet mean volumeon 02-24-2022 Platelet mean volume (Bld) [Entitic vol] 9.6 fL 6.2-12.0 [facility] Work Phone: Determination of erythrocyte mean corpuscular volume (MCV)on 02-24-2022 MCV (RBC) [Entitic vol] 94.6 fL 81-99 [facility] Work Phone: Hematocrit Auto (Bld) [Volum e fraction]on 02-24-2022 Hematocrit (Bld) [Volume fraction] 40.2 % 37-47 [facility] Work Phone: Laboratory - Chemistry and C hemistry - challengeon 02-24-2022 CO2 [Moles/Vol] 22.0 mmol/L 21.0-32.0 [facility] Work Phone: Urea nitrogen/Creatinine [Mass ratio] 15.4 mg/mg 10-20 [facility] Work Phone: Laboratory - Hematology and Cell countson 02-24-2022 Erythrocyte distribution width (RBC) [Entitic vol] 47.0 fL 35.1-43.9 [facility] Work Phone: Erythrocyte distribution width (RBC) [Ratio] 13.4 % 11.6-14.6 [facility] Work Phone: Immature granulocytes/100 WBC (Bld) 0.200 % 0.0-0.9 [facility] Work Phone: Comment on above: IG% - Immature Granu locytes (promyelocytes, myelocytes and metamyelocytes) > 1% indicates that a LEFT SHIFT is Present. MCH (RBC) [Entitic mass] 31.8 pg 27.0-32.0 [facility] Work Phone: Nucleated RBC/100 WBC (Bld) [Ratio] 0 % 0-5 [facility] Work Phone: MCHC Auto (RBC) [Mass/Vol]on 02-24-2022 MCHC (RBC) [Mass/Vol] 33.6 g/dL 32-36 [facility] Work Phone: No Panel Informationon 02-24 Troponin I High Sensitivity 24 pg/mL 3.0-54.0 [facility] Work Phone: Comment on above: Please Note: New Neel[place] t Units and Gender Specific Reference Ranges. For more information see Policy Stat Procedure [place] High Sensitivity Troponin (TNIH) and attachments. D-Dimer Quantitative (PE/DVT) 0.98 FEU/ug/m 0.27-0.49 [facility] Work Phone: Comment on above: D-Dimer ELEVATED (>0 .49): Additional studies and clinicalassessments are indicated to conclude diagnosis of:Deep Vein Thrombosis (DVT) or Pulmonary Embolism (PE)RESULTS CALLED TO Eddie HOLLINGSWORTH RN ED 02/24/22 0912 [address] Gonzales.REPORT READ BACK BY SAME. Estimated Creatinine Clearance Calc 44.06 ml/min [facility] Work Phone: Estimated GFR (MDRD) Amer 73 mL/min >60 [facility] Work Phone: Comment on above: GFR Calc Estimated GFR (MDRD) Non-Af Amer 60 mL/min >60 [facility] Work Phone: Comment on above: Non- GFR Calc Thyroid Stimulating Hormone (TSH) 0.21 uIU/mL 0.358-3.74 [facility] Work Phone: Platelets bldon 02-24-2022 Platelets (Bld) [#/Vol] 314 10*3/uL 150-450 [facility] Work Phone: Serum or plasma calcium cate urement (mass/volume)on 02-24-2022 Calcium [Mass/Vol] 9.6 mg/dL 8.5-10.[address] [facility] Work Phone: Serum or plasma creatinine m easurement (mass/volume)on 02-24-2022 Creatinine [Mass/Vol] 0.98 mg/dL 0.55-1.[address] [facility] Work Phone: Comment on above: The validity of the calculated GFR & GFRAA in patients over 70 years has not been determined. Clinical correlation is essential. Serum or plasma urea nitroge n measurement (mass/volume)on 02-24-2022 Urea nitrogen [Mass/Vol] 15 mg/dL 7-18 [facility] Work Phone: Thin prep Papanicolaou smear with manual screeningon 02-24-2022 Thin prep Papanicolaou smear with manual screening 13 5-15 [facility] Work Phone: Laboratory - Chemistry and C hemistry - challengeon 01-24-2022 Free T4 [Mass/Vol] 0.81 ng/dL 0.76-1.46 [facility] Work Phone: No Panel Informationon 01-24 Free Triiodothyronine (T3) pg/dL 1.7 pg/mL 2.18-3.98 [facility] Work Phone: Thyroid Stimulating Hormone (TSH) 0.86 uIU/mL 0.358-3.74 [facility] Work Phone: Serum or plasma thyroperoxid ase antibody assay (units/volume)on 01-24-2022 TPO Ab Qn [IU]/mL 0-34 [facility] Work Phone: Comment on above: Performed at: [place] [id number] Director: Jeison Velasquez PhD, Phone: [phone] Basophil percentageon 2021 Bilirubin [Mass/Vol] 1.00 mg/dL 0.20-1.00 [facility] Work Phone: Comment on above: For patients on eltr ombopag therapy, use of Dimension [place] TBIL is not recommended. Cholesterol [Mass/Vol] 168 mg/dL <200 [facility] Work Phone: Comment on above: <200 mg/dL Desirable 200-240 mg/dL Borderline >240 mg/dL High Risk Protein [Mass/Vol] 7.2 g/dL 6.4-8.2 [facility] Work Phone: Triglyceride [Mass/Vol] 144 mg/dL <199 [facility] Work Phone: Comment on above: The drugs N-Acetylcy steine and Metamizole may falsely depress this assay.Serum Triglycerides Reference Interval Normal <150 mg/dL Borderline high 150 - 199 mg/dL High 200 - 499 mg/dL Very High > or = 500 mg/dL Direct bilirubinon Bilirubin.direct [Mass/Vol] 0.23 mg/dL 0.00-0.30 [facility] Work Phone: Laboratory - Chemistry and C hemistry - challengeon 01-13-2022 ALP [Catalytic activity/Vol] 54 U/L 45-117 [facility] Work Phone: ALT [Catalytic activity/Vol] 21 U/L 13-56 [facility] Work Phone: Globulin (S) [Mass/Vol] 3.0 g/dL 2.2-4.2 [facility] Work Phone: Serum or plasma albumin cate urement (mass/volume)on 01-13-2022 Albumin [Mass/Vol] 4.2 g/dL 3.2-5.0 [facility] Work Phone: Serum or plasma cholesterol in HDL measurement (mass/volume)on 01-13-2022 Cholesterol in HDL [Mass/Vol] 66 mg/dL >40 [facility] Work Phone: Comment on above: The drugs N-Acetylcy steine and Metamizole may falsely depress this assay. Reference Range HDL <40 mg/dL Low HDL Cholesterol HDL >or= 60 mg/dL High HDL Cholesterol Serum or plasma cholesterol in VLDL measurement (mass/volume)on 01-13-2022 Cholesterol in VLDL [Mass/Vol] 29 mg/dL 5-40 [facility] Work Phone: Serum or plasma low density lipoprotein (LDL) cholesterol measurement (mass/volume)on 01-13-2022 Cholesterol in LDL [Mass/Vol] 73 mg/dL 0-130 [facility] Work Phone: Thin prep Papanicolaou smear with manual screeningon 01-13-2022 Thin prep Papanicolaou smear with manual screening 27 U/L 15-37 [facility] Work Phone: Office Visit: [facility] 02-03-20 17 Documentation of current medications (procedure) Done Invalid Interpretation Code [employer] Work Phone: [phone] Fall risk assessment No Invalid Interpretation Code [employer] Work Phone: [phone] Protein mass conc Done [employer] Work Phone: [phone] Lab Report: Lipid Profileon 01-29-2017 Cholesterol 230 mg/dL High 200 [facility] Work Phone: [phone] HDL Cholesterol 65 mg/dL Invalid Interpretation Code [employer] Work Phone: [phone] LDL Cholesterol 132 mg/dL High 0-130 [facility] Work Phone: [phone] Triglyceride 167 mg/dL Invalid Interpretation Code [employer] Work Phone: [phone] very low density lipoproteins 33 mg/dL Invalid Interpretation Code 5-40 [facility] [employer] Work Phone: [phone] Lab Report: Liver Profileon 01-29-2017 Alanine aminotransferase (ALT) 23 U/L Invalid Interpretation Code 12-78 [employer] Work Phone: [phone] Albumin 4.0 g/dL Invalid Interpretation Code 3.4-5.0 [facility] [employer] Work Phone: [phone] Alkaline phosphatase (ALP) 65 U/L Invalid Interpretation Code 45-117 [employer] Work Phone: [phone] ALP enzyme act/vol (Bld) 65 U/L 45-117 [employer] [facility] [employer] Work Phone: [phone] Aspartate aminotransferase (AST) 27 U/L Invalid Interpretation Code 15-37 [facility] [employer] [facility] [employer] Work Phone: [phone] Bilirubin (direct) 0.16 mg/dL Invalid Interpretation Code 0.00-0.30 [facility] Work Phone: [phone] Bilirubin (total) 0.70 mg/dL Invalid Interpretation Code 0.20-1.00 [facility] Work Phone: [phone] Globulin 3.4 g/dL Invalid Interpretation Code 2.3-3.5 [facility] Work Phone: [phone] Globulin mass conc (S) 3.4 g/dL 2.3-3.[address] [facility] Work Phone: [phone] Protein 7.4 g/dL Invalid Interpretation Code 6.4-8.2 [facility] Work Phone: [phone] Office Visiton 08-06-2016 Documentation of current medications (procedure) Done Invalid Interpretation Code [facility] [email or web address] Phone: [phone] Protein mass conc Done [employer] Work Phone: [phone] 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 Left ventricular Ejection fraction 60 % Invalid Interpretation Code [employer] Work Phone: [phone] Office Visit: postop surgery 06/17/16on 06-24-2016 Dietary management education, guidance, and counseling (procedure) yes Invalid Interpretation Code [employer] Work Phone: [phone] Tobacco smoking status NHIS Never Invalid Interpretation Code [facility] Phone: [phone] Tobacco smoking status NHIS Former smoker [employer] Work Phone: [phone] Tobacco use [facility] Former smoker Invalid Interpretation Code [employer] Work Phone: [phone] Append: CR - Individual Cheryl tment PlanOriginal Ordering Provider: Nurys 03-09-2016 Clinical consultation report (record artifact) [id number]^11/15/2015 Invalid Interpretation Code [facility] Phone: [phone] Replaced Document: Kathya Rizo CG Observationson 11-15-2015 EKG QRS axis -4 deg [employer] Work Phone: [phone] electrocardiogram interpretation Sinus Bradycardia Low voltage in limb leads. - Negative T-waves -Possible Inferior ischemia. ABNORMAL Invalid Interpretation Code [facility] Work Phone: [phone] GE use only - for [employer] import when terms are not otherwise specified 470 ms Invalid Interpretation Code [facility] Work Phone: [phone] Interpretation Sinus Bradycardia Lo w voltage in limb leads. - Negative T-waves -Possible Inferior ischemia. ABNORMAL [facility] Work Phone: [phone] P Altair 44 deg [employer] [facility] Work Phone: [phone] P wave axis, electrocardiogram 44 deg Invalid Interpretation Code [employer] Work Phone: [phone] NM Interval 150 ms [facility] Work Phone: [phone] NM interval, electrocardiogram 150 ms Invalid Interpretation Code [facility] Work Phone: [phone] Pulse (Heart Rate) 52 /min Invalid Interpretation Code [facility] Work Phone: [phone] QRS axis, electrocardiogram -4 deg Invalid Interpretation Code [facility] Work Phone: [phone] QRS Duration 102 ms [facility] Work Phone: [phone] QRS duration, electrocardiogram 102 ms Invalid Interpretation Code [facility] Work Phone: [phone] QT Interval new path ms [facility] Work Phone: [phone] QT interval, electrocardiogram new path ms Invalid Interpretation Code [facility] Work Phone: [phone] QTc Pyle 470 ms [facility] Work Phone: [phone] T Altair -45 deg [facility] Work Phone: [phone] T wave axis, electrocardiogram -45 deg Invalid Interpretation Code [facility] Work Phone: [phone] 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 10-24-2015 Calcium 8.1 mg/dL Low [facility] Work Phone: [phone] Chloride 111 mmol/L High [facility] Work Phone: [phone] CO2 23 mmol/L Invalid Interpretation Code [facility] Work Phone: [phone] CO2 ppres (BldV) 23 mmol/L [facility] Work Phone: [phone] Creatinine 0.84 mg/dL Invalid Interpretation Code [facility] Work Phone: [phone] eGFR (non-black) mL/min/{1.73_m2} Invalid Interpretation Code [facility] Work Phone: [phone] Erythrocyte distribution width Ratio (RBC) 13.8 % [facility] Work Phone: [phone] Erythrocytes (RBC) 3.77 10*6/uL Low [facility] Work Phone: [phone] Glomerular Filtration Rate >60 [facility] Work Phone: [phone] Glucose 88 mg/dL Invalid Interpretation Code [facility] Work Phone: [phone] Glucose mass conc 88 mg/dL [facility] Work Phone: [phone] Hematocrit (HCT) 35.3 % Invalid Interpretation Code [facility] Work Phone: [phone] Hematocrit Volume Fraction (Bld) 35.3 % [facility] Work Phone: [phone] Hemoglobin (HGB) 11.9 g/dL Invalid Interpretation Code [facility] Work Phone: [phone] Magnesium 1.9 mg/dL Invalid Interpretation Code [facility] Work Phone: [phone] MCH 31.6 pg Invalid Interpretation Code [facility] Work Phone: [phone] MCH Entitic mass (RBC) 31.6 pg [facility] Work Phone: [phone] MCHC 33.7 g/dL Invalid Interpretation Code [facility] Work Phone: [phone] MCHC mass conc (RBC) 33.7 g/dL [facility] Work Phone: [phone] MCV 93.6 fL Invalid Interpretation Code [facility] Work Phone: [phone] MCV Entitic volume (RBC) 93.6 fL [facility] Work Phone: [phone] Platelet mean volume Entitic volume (Bld) 10.3 fL [facility] Work Phone: [phone] Platelets 175 10*3/mm3 Invalid Interpretation Code [facility] Work Phone: [phone] Platelets #/vol (Bld) 175 10*3/mm3 [facility] Work Phone: [phone] PMV by Momo 10.3 fL Invalid Interpretation Code [facility] Work Phone: [phone] Potassium 4.0 mmol/L Invalid Interpretation Code [facility] Work Phone: [phone] RBC #/vol (Bld) 3.77 10*6/uL Low [facility] Work Phone: [phone] RDW-CA 13.8 % Invalid Interpretation Code [facility] Work Phone: [phone] Sodium 141 mmol/L Invalid Interpretation Code [facility] Work Phone: [phone] Urea nitrogen 11 mg/dL Invalid Interpretation Code [facility] Work Phone: [phone] WBC #/vol (Bld) 7.6 10*3/uL [facility] Work Phone: [phone] WBC (Leukocytes) 7.6 10*3/uL Invalid Interpretation Code [facility] Work Phone: [phone] Lab Report: CK-MB Quantitati ve and Indexon 10-21-2015 CKMB Test not performed % Invalid Interpretation Code 0.0-1.4 [facility] Work Phone: [phone] CKMB ng/mL Invalid Interpretation Code 0.0-5.0 [facility] Work Phone: [phone] Creatine kinase (CK) 38 U/L Invalid Interpretation Code 26-192 [facility] Work Phone: [phone] Creatine kinase.MB < 0.5 ng/mL 0.0-5.0 [facility] Work Phone: [phone] Lab Report: Partial Thrombop last Timeon 10-21-2015 aPTT 20.0 s Low 24.1-36.2 [facility] Work Phone: [phone] Lab Report: Prothrombin Time w/INRon 10-21-2015 Coagulation tissue factor induced in platelet poor plasma 11.8 s Invalid Interpretation Code 11.7-14.9 [facility] Work Phone: [phone] INR Coag RelTime (PPP) 0.9 {INR} [facility] Work Phone: [phone] INR in blood by coagulation 0.9 {INR} Invalid Interpretation Code [facility] Work Phone: [phone] Lab Report: Troponin-Ion Troponin I 0.02 ng/mL Invalid Interpretation Code <0.06 [facility] Work Phone: [phone] Office Visit: F/u Hypothyroi dism, HTN, GERDon 06-11-2015 HbA1c 5.5 % Invalid Interpretation Code [facility] Work Phone: [phone] Lab Report: Basic Metabolic Profile (BMP)on 02-06-2015 Anion gap 9 mmol/L Invalid Interpretation Code 11-09 [facility] Work Phone: [phone] Anion gap molar conc 9 mmol/L - [facility] Work Phone: [phone] BUN/Creatinine Ratio 18.6 RATIO Invalid Interpretation Code - [facility] Work Phone: [phone] eGFR (non-black) 52 mL/min/{1.73_m2} Low >60 [facility] Work Phone: [phone] eGFR (non-black) 63 mL/min/{1.73_m2} Invalid Interpretation Code >60 [facility] Work Phone: [phone] EST GFR - AA 63 mL/min >60 [facility] Work Phone: [phone] Lab Report: CBC W/Diff, Auto matedon 02-06-2015 Absolute Neut 3.5 X10 3/UL 2.0-7.7 [facility] Work Phone: [phone] Absolute Neutrophil count 3.5 X10 3/UL Invalid Interpretation Code 2.0-7.7 [facility] Work Phone: [phone] Basophils/100 leukocytes 0.3 % Invalid Interpretation Code 0-1 [facility] Work Phone: [phone] Basophils/100 WBC (Bld) 0.3 % 0-1 [facility] Work Phone: [phone] Eosinophils/100 leukocytes 3.7 % Invalid Interpretation Code 0-5 [facility] Work Phone: [phone] Eosinophils/100 WBC (Bld) 3.7 % 0-5 [facility] Work Phone: [phone] Erythrocyte distribution width Ratio (RBC) 42.4 fL 35.1-43.9 [facility] Work Phone: [phone] Immature granulocytes #/vol (Bld) 0.200 % 0.0-0.9 [facility] Work Phone: [phone] immature granulocytes, percentage of total cells, blood 0.200 % Invalid Interpretation Code 0.0-0.9 [facility] Work Phone: [phone] Lymphocytes 2.36 X10 3/UL Invalid Interpretation Code 0.83-4.51 [facility] Work Phone: Lymphocytes #/vol (Bld) 2.36 X10 3/UL 0.83-4.51 [facility] Work Phone: [phone] Lymphocytes/100 leukocytes 36.1 % Invalid Interpretation Code 19-41 [facility] Work Phone: [phone] Lymphocytes/100 WBC (Bld) 36.1 % 19-41 [facility] Work Phone: [phone] Monocytes/100 leukocytes 6.6 % Invalid Interpretation Code 0-10 [facility] Work Phone: Monocytes/100 WBC (Bld) 6.6 % 0-10 [facility] Work Phone: [phone] Neutrophils/100 leukocytes 53.1 % Invalid Interpretation Code 47-70 [facility] Work Phone: [phone] Neutrophils/100 WBC (Bld) 53.1 % 47-70 [facility] Work Phone: [phone] red blood cell distribution width, size density 42.4 fL Invalid Interpretation Code 35.1-43.9 [facility] Work Phone: [phone] Lab Report: T4 Total, Thyrox inon 02-06-2015 Thyroxine (T4) 10.3 ug/dL Invalid Interpretation Code 4.8-13.9 [facility] Work Phone: [phone] Lab Report: Thyroid Stim Hor ninoska (TSH)on 02-06-2015 Thyroid stimulating hormone (TSH) 3.66 u[iU]/mL Invalid Interpretation Code 0.358-3.74 [facility] Work Phone: [phone] Office Visit: Establish [employer] 12-11-2014 Protein mass conc yes [employer] Work Phone: [phone] Smoking cessation education (procedure) yes Invalid Interpretation Code [facility] [employer] [facility] [employer] Work Phone: [phone] Lab Report: (P) Urinalysis, Completeon 10-05-2014 specific gravity, urine 1.010 Invalid Interpretation Code 1.002-1.03 0 [employer] Work Phone: Office Visiton 08-07-2014 cardiac risk group C Invalid Interpretation Code [facility] Work Phone: [phone] General cardiovascular disease 10Y risk [#] [place] N/A Invalid Interpretation Code [facility] Work Phone: [phone] Office Visiton 07-24-2014 Albumin Ql (U) trace [facility] Work Phone: [phone] Bilirubin Ql (U) Negative [facility] Work Phone: [phone] blood in urine (hemoglobin) by dipstick Negative Invalid Interpretation Code [facility] Work Phone: [phone] Glucose Test strip mass conc (U) Negative [facility] Work Phone: [phone] Ketones mass conc (U) Negative [facility] Work Phone: [phone] Nitrite Ql (U) Negative [facility] Work Phone: [phone] pH (U) 5.0 [pH] [facility] Work Phone: [phone] Urine, appearance cloudy Invalid Interpretation Code [facility] Work Phone: [phone] Urine, bilirubin presence Negative Invalid Interpretation Code [facility] Work Phone: [phone] Urine, color yellow Invalid Interpretation Code [facility] Work Phone: [phone] Urine, glucose presence Negative Invalid Interpretation Code [facility] Work Phone: [phone] Urine, ketones presence Negative Invalid Interpretation Code [facility] Work Phone: [phone] Urine, leukocyte esterase presence Negative Invalid Interpretation Code [facility] Work Phone: [phone] Urine, nitrite presence Negative Invalid Interpretation Code [facility] Work Phone: [phone] Urine, pH 5.0 [pH] Invalid Interpretation Code [facility] Work Phone: [phone] Urine, protein trace Invalid Interpretation Code [facility] Work Phone: [phone] Urine, urobilinogen presence 0.2 Invalid Interpretation Code [facility] Work Phone: [phone] External Other: Preferred Me thod of Contacton 01-25-2014 methcontact secmsg [facility] Work Phone: [phone] Patient's prefered method of contact secmsg Invalid Interpretation Code [facility] Phone: [phone] Lab Report: WPon 07-25-2013 WBC #/vol (Bld) WBC 0-5 Normal [employer] Work Phone: [phone] WBC (Leukocytes) WBC 0-5 Normal [employer] Work Phone: [phone] EKG Report: [facility] ECG Obse rvationson 04-27-2013 Pulse (Heart Rate) 429 ms Invalid Interpretation Code [facility] Phone: [phone] Office Visiton 02-26-2013 Colonoscopy (procedure) Colonoscopy (procedure) Invalid Interpretation Code [employer] Work Phone: [phone] Protein mass conc Colonoscopy (procedure) [facility] Phone: [phone] Office Visiton 12-26-2012 Breast Mammogram screening Normal Bilateral Invalid Interpretation Code [facility] Phone: [phone] 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 Teresa Boggs DO Work Phone: [facility] 12-15-2024 05:57-0400 Body temperature 97 [degF] Dr. Teresa Boggs DO Work Phone: [facility] 12-15-2024 05:57-0400 Body weight 67.[address] Teresa Boggs DO Work Phone: [facility] 12-15-2024 05:57-0400 Diastolic blood pressure 72 mm[Hg] Dr. Teresa Boggs DO Work Phone: [facility] 12-15-2024 05:57-0400 Heart rate 63 /min Dr. Teresa Boggs DO Work Phone: [facility] 12-15-2024 05:57-0400 Respiratory rate 16 /min Dr. Teresa Boggs DO Work Phone: [facility] 12-15-2024 05:57-0400 SaO2% (BldA) [Mass fraction] 97 % Dr. Teresa Boggs DO Work Phone: [facility] 12-15-2024 05:57-0400 Systolic blood pressure 139 mm[Hg] Dr. Teresa Boggs DO Work Phone: [facility] 12-14-2024 14:10-0400 Body height 156.[address] Teresa Boggs DO Work Phone: [facility] 10-31-2024 08:45-0400 Body height 156.[address] Teresa Boggs DO Work Phone: [facility] 10-31-2024 08:45-0400 Body weight 68.[address] Teresa Boggs DO Work Phone: [facility] 10-31-2024 08:45-0400 Heart rate 62 /min Dr. Teresa Boggs DO Work Phone: [facility] 10-31-2024 08:45-0400 SaO2% (BldA) [Mass fraction] 98 % Dr. Teresa Boggs DO Work Phone: [facility] 10-18-2024 09:48-0400 Body mass index (BMI) [Ratio] 28.5 kg/m2 Dr. Teresa Boggs DO Work Phone: [facility] 10-18-2024 09:48-0400 Body temperature 95.1 [degF] Dr. Teresa Boggs DO Work Phone: [facility] 10-18-2024 09:48-0400 Body weight 68.[address] Teresa Boggs DO Work Phone: [facility] 10-18-2024 09:48-0400 Diastolic blood pressure 79 mm[Hg] Dr. Teresa Boggs DO Work Phone: [facility] 10-18-2024 09:48-0400 Heart rate 81 /min Dr. Teresa Boggs DO Work Phone: [facility] 10-18-2024 09:48-0400 Respiratory rate 20 /min Dr. Teresa Boggs DO Work Phone: [facility] 10-18-2024 09:48-0400 SaO2% (BldA) [Mass fraction] 97 % Dr. Teresa Boggs DO Work Phone: [facility] 10-18-2024 09:48-0400 Systolic blood pressure 121 mm[Hg] Dr. Teresa Boggs DO Work Phone: [facility] 09-14-2024 09:52-0400 Body height 154.[address] Teresa Boggs DO Work Phone: [facility] 09-14-2024 09:52-0400 Body weight 69.[address] Teresa Boggs DO Work Phone: [facility] 09-07-2024 07:30-0400 Body mass index (BMI) [Ratio] 29 kg/m2 Dr. Teresa Boggs DO Work Phone: [facility] 09-07-2024 07:30-0400 Body weight 69.[address] Teresa Boggs DO Work Phone: [facility] 09-07-2024 07:30-0400 Diastolic blood pressure 78 mm[Hg] Dr. Teresa Boggs DO Work Phone: [facility] 09-07-2024 07:30-0400 Heart rate 53 /min Dr. Teresa Bogsg DO Work Phone: [facility] 09-07-2024 07:30-0400 Respiratory rate 18 /min Dr. Teresa Boggs DO Work Phone: [facility] 09-07-2024 07:30-0400 SaO2% (BldA) [Mass fraction] 99 % Dr. Teresa Boggs DO Work Phone: [facility] 09-07-2024 07:30-0400 Systolic blood pressure 128 mm[Hg] Dr. Teresa Boggs DO Work Phone: [facility] 08-17-2024 09:44-0500 Body height 154.[address] Teresa Boggs DO Work Phone: [facility] 08-17-2024 09:44-0500 Body weight 69.[address] Teresa Boggs DO Work Phone: [facility] 07-20-2024 11:18-0500 Body weight 71.[address] Teresa Boggs DO Work Phone: [facility] 07-20-2024 09:21-0500 Body temperature 98.1 [degF] Dr. Teresa Boggs DO Work Phone: [facility] 07-20-2024 09:21-0500 Diastolic blood pressure 72 mm[Hg] Dr. Teresa Boggs DO Work Phone: [facility] 07-20-2024 09:21-0500 Heart rate 88 /min Dr. Teresa Boggs DO Work Phone: [facility] 07-20-2024 09:21-0500 Respiratory rate 16 /min Dr. Teresa Boggs DO Work Phone: [facility] 07-20-2024 09:21-0500 SaO2% (BldA) [Mass fraction] 98 % Dr. Teresa Boggs DO Work Phone: [facility] 07-20-2024 09:21-0500 Systolic blood pressure 142 mm[Hg] Dr. Teresa Boggs DO Work Phone: [facility] 06-19-2024 07:11-0500 Body weight 73.[address] Teresa Boggs DO Work Phone: [facility] 05-22-2024 15:09-0500 Body mass index (BMI) [Ratio] 31.9 kg/m2 Dr. Teresa Boggs DO Work Phone: [facility] 05-22-2024 15:00-0500 Body weight 76.[address] Teresa Boggs DO Work Phone: [facility] 05-22-2024 14:17-0500 Diastolic blood pressure 83 mm[Hg] Dr. Teresa Boggs DO Work Phone: [facility] 05-22-2024 14:17-0500 Heart rate 80 /min Dr. Teresa Boggs DO Work Phone: [facility] 05-22-2024 14:17-0500 SaO2% (BldA) [Mass fraction] 99 % Dr. Teresa Boggs DO Work Phone: [facility] 05-22-2024 14:17-0500 Systolic blood pressure 127 mm[Hg] Dr. Teresa Boggs DO Work Phone: [facility] 05-10-2024 15:40-0500 Body mass index (BMI) [Ratio] 31.9 kg/m2 Dr. Teresa Boggs DO Work Phone: [facility] 05-10-2024 15:40-0500 Body weight 76.[address] Teresa Boggs DO Work Phone: [facility] 05-10-2024 15:40-0500 Diastolic blood pressure 83 mm[Hg] Dr. Teresa Boggs DO Work Phone: [facility] 05-10-2024 15:40-0500 Heart rate 80 /min Dr. Teresa Boggs DO Work Phone: [facility] 05-10-2024 15:40-0500 Respiratory rate 18 /min Dr. Teresa Boggs DO Work Phone: [facility] 05-10-2024 15:40-0500 SaO2% (BldA) [Mass fraction] 99 % Dr. Teresa Boggs DO Work Phone: [facility] 05-10-2024 15:40-0500 Systolic blood pressure 127 mm[Hg] Dr. Teresa Boggs DO Work Phone: [facility] 05-04-2024 12:00-0500 Body temperature 97.9 [degF] Nataly Tovar MD Work Phone: [facility] 05-04-2024 12:00-0500 Diastolic blood pressure 67 mm[Hg] Nataly Tovar MD Work Phone: [facility] 05-04-2024 12:00-0500 Heart rate 76 /min Nataly Tovar MD Work Phone: [facility] 05-04-2024 12:00-0500 Respiratory rate 18 /min Nataly Tovar MD Work Phone: [facility] 05-04-2024 12:00-0500 SaO2% (BldA) [Mass fraction] 98 % Nataly Tovar MD Work Phone: [facility] 05-04-2024 12:00-0500 Systolic blood pressure 120 mm[Hg] Nataly Tovar MD Work Phone: [facility] 05-04-2024 05:00-0500 Body mass index (BMI) [Ratio] 32.62 kg/m2 Nataly Tovar MD Work Phone: [facility] 05-04-2024 05:00-0500 Body weight 78.3 kg Nataly Tovar MD Work Phone: [facility] 05-02-2024 12:18-0500 Body height 154.9 cm Nataly Tovar MD Work Phone: [facility] 07-01-2023 10:38-0500 Body height 154.[address] Teresa Bogsg Work Phone: [facility] 07-01-2023 10:38-0500 Body mass index (BMI) [Ratio] 30.9 kg/m2 Dr. Teresa Boggs Work Phone: [facility] 07-01-2023 10:38-0500 Body weight 74.[address] Teresa Boggs Work Phone: [facility] 07-01-2023 10:38-0500 Heart rate 67 /min Dr. Teresa Boggs Work Phone: [facility] 07-01-2023 10:38-0500 Respiratory rate 18 /min Dr. Teresa Boggs Work Phone: [facility] 07-01-2023 10:38-0500 SaO2% (BldA) [Mass fraction] 99 % Dr. Teresa Boggs Work Phone: [facility] 01-07-2023 09:05-0400 Body height 154.[address] Teresa Boggs Work Phone: [facility] 01-07-2023 09:05-0400 Body mass index (BMI) [Ratio] 32.1 kg/m2 Dr. Teresa Boggs Work Phone: [facility] 01-07-2023 09:05-0400 Body weight 77.[address] Teresa Boggs Work Phone: [facility] 01-07-2023 09:05-0400 Diastolic blood pressure 78 mm[Hg] Dr. Teresa Boggs Work Phone: [facility] 01-07-2023 09:05-0400 Heart rate 63 /min Dr. Teresa Boggs Work Phone: [facility] 01-07-2023 09:05-0400 Respiratory rate 18 /min Dr. Teresa Boggs Work Phone: [facility] 01-07-2023 09:05-0400 SaO2% (BldA) [Mass fraction] 98 % Dr. Teresa Boggs Work Phone: [facility] 01-07-2023 09:05-0400 Systolic blood pressure 152 mm[Hg] Dr. Teresa Boggs Work Phone: [facility] 10-19-2022 08:35-0400 Body temperature 97 [degF] Dr. Teresa Boggs Work Phone: [facility] 10-19-2022 08:35-0400 Diastolic blood pressure 58 mm[Hg] Dr. Teresa Boggs Work Phone: [facility] 10-19-2022 08:35-0400 Heart rate 56 /min Dr. Teresa Boggs Work Phone: [facility] 10-19-2022 08:35-0400 Respiratory rate 16 /min Dr. Teresa Boggs Work Phone: [facility] 10-19-2022 08:35-0400 SaO2% (BldA) [Mass fraction] 98 % Dr. Teresa Boggs Work Phone: [facility] 10-19-2022 08:35-0400 Systolic blood pressure 114 mm[Hg] Dr. Teresa Boggs Work Phone: [facility] 10-19-2022 07:14-0400 Body height 154.[address] Teresa Boggs Work Phone: [facility] 10-19-2022 07:14-0400 Body mass index (BMI) [Ratio] 31.5 kg/m2 Dr. Teresa Boggs Work Phone: [facility] 10-19-2022 07:14-0400 Body weight 75.[address] Teresa Boggs Work Phone: [facility] 10-08-2022 16:32-0400 Body mass index (BMI) [Ratio] 31.1 kg/m2 Dr. Teresa Boggs Work Phone: [facility] 10-08-2022 16:32-0400 Body weight 74.[address] Teresa Boggs Work Phone: [facility] 08-21-2022 10:53-0500 Body height 157.[address] Teresa Boggs Work Phone: [facility] 08-21-2022 10:53-0500 Body temperature 96.9 [degF] Dr. Teresa Boggs Work Phone: [facility] 08-21-2022 10:53-0500 Heart rate 63 /min Dr. Teresa Boggs Work Phone: [facility] 08-21-2022 10:53-0500 Respiratory rate 16 /min Dr. Teresa Boggs Work Phone: [facility] 08-21-2022 10:53-0500 SaO2% (BldA) [Mass fraction] 93 % Dr. Teresa Boggs Work Phone: [facility] 08-06-2022 09:59-0500 Body height 157.[address] Teresa Boggs Work Phone: [facility] 08-06-2022 09:59-0500 Body temperature 96.9 [degF] Dr. Teresa Boggs Work Phone: [facility] 08-06-2022 09:59-0500 Heart rate 65 /min Dr. Teresa Boggs Work Phone: [facility] 08-06-2022 09:59-0500 Respiratory rate 16 /min Dr. Teresa Boggs Work Phone: [facility] 08-06-2022 09:59-0500 SaO2% (BldA) [Mass fraction] 96 % Dr. Teresa Boggs Work Phone: [facility] 07-30-2022 10:01-0500 Body temperature 96.9 [degF] Dr. Teresa Boggs Work Phone: [facility] 07-30-2022 10:01-0500 Heart rate 61 /min Dr. Teresa Boggs Work Phone: [facility] 07-30-2022 10:01-0500 Respiratory rate 16 /min Dr. Teresa Boggs Work Phone: [facility] 07-30-2022 10:01-0500 SaO2% (BldA) [Mass fraction] 98 % Dr. Teresa Boggs Work Phone: [facility] 07-21-2022 10:22-0500 Body height 157.[address] Teresa Boggs Work Phone: [facility] 07-21-2022 10:22-0500 Body temperature 96.9 [degF] Dr. Teresa Boggs Work Phone: [facility] 07-21-2022 10:22-0500 Heart rate 61 /min Dr. Teresa Boggs Work Phone: [facility] 07-21-2022 10:22-0500 Respiratory rate 16 /min Dr. Teresa Boggs Work Phone: [facility] 07-21-2022 10:22-0500 SaO2% (BldA) [Mass fraction] 94 % Dr. Teresa Boggs Work Phone: [facility] 07-15-2022 11:06-0500 Body temperature 97.8 [degF] Dr. Teresa Boggs Work Phone: [facility] 07-15-2022 11:06-0500 Diastolic blood pressure 52 mm[Hg] Dr. Teresa Boggs Work Phone: [facility] 07-15-2022 11:06-0500 Heart rate 73 /min Dr. Teresa Boggs Work Phone: [facility] 07-15-2022 11:06-0500 Respiratory rate 16 /min Dr. Teresa Boggs Work Phone: [facility] 07-15-2022 11:06-0500 SaO2% (BldA) [Mass fraction] 93 % Dr. Teresa Boggs Work Phone: [facility] 07-15-2022 11:06-0500 Systolic blood pressure 119 mm[Hg] Dr. Teresa Boggs Work Phone: [facility] 07-15-2022 06:32-0500 Body height 157.[address] Teresa Boggs Work Phone: [facility] 07-15-2022 06:32-0500 Body mass index (BMI) [Ratio] 29.8 kg/m2 Dr. Teresa Boggs Work Phone: [facility] 07-15-2022 06:32-0500 Body weight [address] Teresa Boggs Work Phone: [facility] 07-10-2022 09:21-0500 Body mass index (BMI) [Ratio] 30.2 kg/m2 Dr. Teresa Boggs Work Phone: [facility] 07-10-2022 09:21-0500 Body weight 74.[address] Teresa Boggs Work Phone: [facility] 07-10-2022 09:21-0500 Diastolic blood pressure 69 mm[Hg] Dr. Teresa Boggs Work Phone: [facility] 07-10-2022 09:21-0500 Heart rate 64 /min Dr. Teresa Boggs Work Phone: [facility] 07-10-2022 09:21-0500 Respiratory rate 18 /min Dr. Teresa Boggs Work Phone: [facility] 07-10-2022 09:21-0500 Systolic blood pressure 107 mm[Hg] Dr. Teresa Boggs Work Phone: [facility] 06-08-2022 10:07-0500 Body mass index (BMI) [Ratio] 29.9 kg/m2 Dr. Teresa Boggs Work Phone: [facility] 06-08-2022 10:07-0500 Body temperature 96.6 [degF] Dr. Teresa Boggs Work Phone: [facility] 06-08-2022 10:07-0500 Body weight 74.[address] Teresa Boggs Work Phone: [facility] 06-08-2022 10:07-0500 Diastolic blood pressure 65 mm[Hg] Dr. Teresa Boggs Work Phone: [facility] 06-08-2022 10:07-0500 Heart rate 54 /min Dr. Teresa Boggs Work Phone: [facility] 06-08-2022 10:07-0500 Respiratory rate 17 /min Dr. Teresa Boggs Work Phone: [facility] 06-08-2022 10:07-0500 SaO2% (BldA) [Mass fraction] 96 % Dr. Teresa Boggs Work Phone: [facility] 06-08-2022 10:07-0500 Systolic blood pressure 142 mm[Hg] Dr. Teresa Boggs Work Phone: [facility] 05-06-2022 10:50-0500 Body height 157.[address] Teresa Boggs Work Phone: [facility] Work Phone: 05-06-2022 10:50-0500 Body mass index (BMI) [Ratio] 29.9 kg/m2 Dr. Teresa Boggs Work Phone: [facility] 05-06-2022 10:50-0500 Body weight 74.[address] Teresa Boggs Work Phone: [facility] 02-24-2022 12:48-0400 Diastolic blood pressure 63 mm[Hg] Dr. Teresa Boggs Work Phone: [facility] Work Phone: 02-24-2022 12:48-0400 Heart rate 63 /min Dr. Teresa Boggs Work Phone: [facility] Work Phone: 02-24-2022 12:48-0400 Respiratory rate 18 /min Dr. Teresa Boggs Work Phone: [facility] Work Phone: 02-24-2022 12:48-0400 SaO2% (BldA) [Mass fraction] 95 % Dr. Teresa Boggs Work Phone: [facility] Work Phone: 02-24-2022 12:48-0400 Systolic blood pressure 108 mm[Hg] Dr. Teresa Boggs Work Phone: [facility] Work Phone: 02-24-2022 07:43-0400 Body height 157.[address] Teresa Boggs Work Phone: [facility] Work Phone: 02-24-2022 07:43-0400 Body mass index (BMI) [Ratio] 31.1 kg/m2 Dr. Teresa Boggs Work Phone: [facility] Work Phone: 02-24-2022 07:43-0400 Body temperature 96.8 [degF] Dr. Teresa Boggs Work Phone: [facility] Work Phone: 02-24-2022 07:43-0400 Body weight 77.[address] Teresa Boggs Work Phone: [facility] Work Phone: 01-12-2022 09:15-0400 Body height 157.[address] Teresa Boggs Work Phone: [facility] Work Phone: 01-12-2022 09:15-0400 Body mass index (BMI) [Ratio] 31.4 kg/m2 Dr. Teresa Boggs Work Phone: [facility] Work Phone: 01-12-2022 09:15-0400 Body weight 78.[address] Teresa Boggs Work Phone: [facility] Work Phone: 01-12-2022 09:15-0400 Diastolic blood pressure 69 mm[Hg] Dr. Teresa Boggs Work Phone: [facility] Work Phone: 01-12-2022 09:15-0400 Heart rate 66 /min Dr. Teresa Boggs Work Phone: [facility] Work Phone: 01-12-2022 09:15-0400 Respiratory rate 18 /min Dr. Teresa Boggs Work Phone: [facility] Work Phone: 01-12-2022 09:15-0400 SaO2% (BldA) [Mass fraction] 98 % Dr. Teresa Boggs Work Phone: [facility] Work Phone: 01-12-2022 09:15-0400 Systolic blood pressure 114 mm[Hg] Dr. Teresa Boggs Work Phone: [facility] Work Phone: 02-02-2017 12:59-0400 BMI (Body Mass Index) 31.68 kg/m2 [facility] Work Phone: 02-02-2017 12:59-0400 BP Diastolic 72 mm[Hg] [facility] Work Phone: 02-02-2017 12:59-0400 BP Systolic 142 mm[Hg] [facility] Work Phone: 02-02-2017 12:59-0400 Height 154.94 cm Sejal Lyons [facility] Work Phone: 02-02-2017 12:59-0400 Pulse (Heart Rate) 60 /min Sejal Lyons [facility] Work Phone: 02-02-2017 12:59-0400 Respiratory Rate 20 /min Sejal Lyons [facility] Work Phone: 02-02-2017 12:59-0400 Weight 76.07 kg Sejal Lyons [facility] Work Phone: 08-06-2016 09:42-0500 BMI (Body Mass Index) 33.44 kg/m2 Carrington Wakefield TRA[employer] [employer] [facility] Work Phone: 08-06-2016 09:42-0500 BP Diastolic 60 mm[Hg] Carrington Wakefield TRAILER DRIVER [facility] Work Phone: 08-06-2016 09:42-0500 BP Systolic 110 mm[Hg] Carrington Ashu TRAILER DRIVER [facility] Work Phone: 08-06-2016 09:42-0500 BSA (Body Surface Area) 1.8 m2 Carrington Ashu TRAILER DRIVER [facility] Work Phone: 08-06-2016 09:42-0500 Pulse (Heart Rate) 52 /min Carrington Ashu TRAILER DRIVER [facility] Work Phone: 08-06-2016 09:42-0500 Respiratory Rate 20 /min Carrington Wakefield TRAILER DRIVER [facility] Work Phone: 08-06-2016 09:42-0500 Weight 80.29 kg Carrington Ashu TRAILER DRIVER [facility] Work Phone: 06-24-2016 13:47-0500 Body Temperature 97.9 [degF] Carrington Wakefield TRAILER DRIVER [facility] Work Phone: 06-24-2016 13:47-0500 Height 154.94 cm Carrington Wakefield TRAILER DRIVER [facility] Work Phone: 06-24-2016 13:47-0500 Weight 81.36 kg Carrington Wakefield TRAILER DRIVER [facility] Work Phone: 11-15-2015 11:19-0400 Heart rate 52 /min Carrington Wakefield TRAILER DRIVER [facility] Work Phone: 04-27-2013 10:39-0400 Heart rate 429 ms Carrington Wakefield TRAILER DRIVER [facility] Work Phone: 08-29-2007 16:00-0500 Body weight 68.04 kg [facility] 08-29-2007 16:00-0500 Diastolic blood pressure 70 mm[Hg] [facility] 08-29-2007 16:00-0500 Heart rate 60 /min [facility] 08-29-2007 16:00-0500 Systolic blood pressure 144 mm[Hg] [facility] Encounters Encounter Date Encounter Type Care Provider Facility Start: 02-12-2025 [facility] Start: 02-06-2025 ambulatory Teresa Boggs Facility:[facility] Start: 02-01-2025 [facility] Start: 01-25-2025 End: 01-25-[address] Teresa Boggs DO Work Phone: -Cardiac Rehab Start: 01-25-2025 End: 01-25-[address] Dustin Lemus MD -Cardiac Rehab Work Phone: Start: 01-23-[address] Dustin Lemus MD -Cardiac Rehab Work Phone: Start: 01-18-2025 Non-patient / Non-visit Dr. Jaswant METCALF -[facility] Start: 01-18-2025 End: 01-18-[address] Teresa Boggs DO Work Phone: -Cardiovascular Services Start: 01-18-2025 End: 01-18-2025 Patient encounter procedure TRAILER DRIVER Carly Colin -Cardiovascular Services Work Phone: Start: 01-18-2025 End: 01-18-2025 ambulatory Tereas Boggs Facility:[facility] Start: 12-21-2024 End: 12-25-[address] Teresa Boggs DO Work Phone: -Cardiac Rehab Start: 12-21-2024 End: 12-25-[address] Dustin Lemus MD -Cardiac Rehab Work Phone: Start: 12-19-[address] Dustin Lemus MD -Cardiac Rehab Work Phone: Start: 12-15-2024 End: 12-15-[address] Teresa Boggs DO Work Phone: [facility] Work Phone: Start: 12-15-2024 End: 12-15-2024 Patient encounter procedure TRAILER DRIVER Carly Colin -Laboratory Work Phone: Start: 12-15-2024 End: 12-15-2024 Patient encounter procedure TRAILER DRIVER Carly Colin -[facility] Work Phone: Start: 12-15-2024 End: 12-15-[address] Teresa Boggs DO Work Phone: [facility] Work Phone: Start: 12-15-2024 End: 12-15-2024 [facility] Start: 12-12-[address] Dustin Lemus MD -Cardiac Rehab Work Phone: Start: 12-06-2024 ambulatory Teresa [facility] Facility:[facility] Start: 11-23-2024 End: 11-25-[address] Teresa Boggs DO Work Phone: [facility] Work Phone: Start: 11-23-2024 End: 11-25-[address] Dustin Lemus MD -Cardiac Rehab Work Phone: Start: 11-21-2024 Non-patient / Non-visit Dr. Jose perez DO -[facility] Start: 11-21-2024 End: 11-21-[address] Teresa Boggs DO Work Phone: [facility] Work Phone: Start: 11-21-2024 End: 11-21-2024 Patient encounter procedure TRAILER DRIVER Carly Colin -Pulmonary Services/Neurology Work Phone: Start: 11-21-2024 End: 11-21-2024 ambulatory Carly Colin Facility:[facility] Start: 11-03-2024 ambulatory [facility] Facility:[facility] Start: 11-03-2024 Non-patient / Non-visit Dr. Jose perez DO -[facility] Start: 11-02-[address] Dustin Lemus MD -Cardiac Rehab Work Phone: Start: 10-31-[address] Dustin Lemus MD -Cardiac Rehab Work Phone: Start: 10-31-2024 End: 10-31-[address] Teresa Boggs DO Work Phone: [facility] Work Phone: Start: 10-31-2024 End: 10-31-2024 Patient encounter procedure TRAILER DRIVER Carly Colin -Pulmonary Services/Neurology Work Phone: Start: 10-31-2024 End: 10-31-2024 [facility] Start: 10-27-2024 End: 10-27-[address] Teresa Boggs DO Work Phone: [facility] Work Phone: Start: 10-27-2024 End: 10-27-[address] Teresa Boggs DO -Laboratory Work Phone: Start: 10-26-2024 End: 11-25-[address] Dustin Lemus MD -Cardiac Rehab Work Phone: Start: 10-26-[address] Dustin Lemus MD -Cardiac Rehab Work Phone: Start: 10-26-2024 End: 11-25-[address] Teresa Boggs DO Work Phone: [facility] Work Phone: Start: 10-18-2024 End: 10-18-2024 Patient encounter procedure TRAILER DRIVER Carly Dixie [facility] Work Phone: Start: 10-18-2024 End: 10-18-2024 [facility] Start: 10-17-2024 End: 10-25-2024 [facility]ulatory [facility] Start: 10-17-2024 End: 10-25-[address] Dustin Lemus MD -Cardiac Rehab Work Phone: Start: 10-06-2024 [facility] Start: 10-05-[address] Dustin Lemus MD -Cardiac Rehab Work Phone: Start: 10-03-2024 End: 10-03-[address] Teresa Boggs DO Work Phone: [facility] Work Phone: Start: 10-03-2024 End: 10-03-2024 Patient encounter procedure Ana Bailey PA -Laboratory Work Phone: Start: 10-03-2024 End: 10-03-2024 ambulatory Ana ALVARADO Facility:[facility] Start: 09-25-2024 End: 09-25-[address] Teresa Boggs DO Work Phone: [facility] Work Phone: Start: 09-25-2024 End: 09-25-[address] Dustin Lemus MD -Cardiac Rehab Work Phone: Start: 09-17-2024 Encounter for genera l adult medical examination without abnormal findings [facility] Start: 09-15-[address] Dustin Lemus MD -Cardiac Rehab Work Phone: Start: 09-08-2024 End: 09-08-[address] Teresa Boggs DO Work Phone: [facility] Work Phone: Start: 09-08-2024 End: 09-08-[address] Teresa Boggs DO -Sleep Lab Work Phone: Start: 09-07-2024 End: 09-07-2024 Patient encounter procedure Ana ALVARADO -[facility] Work Phone: Start: 09-07-2024 End: 09-08-2024 [facility] Start: 09-05-2024 [facility]ulatory [facility] Start: 09-01-[address] Dustin Lemus MD -Cardiac Rehab Work Phone: Start: 08-25-2024 End: 08-25-2024 [facility]ulatory [facility] Start: 08-25-2024 End: 08-25-[address] Dustin Lemus MD -Cardiac Rehab Work Phone: Start: 08-23-2024 End: 08-23-[address] Teresa Boggs DO Work Phone: [facility] Work Phone: Start: 08-23-2024 End: 08-23-[address] Teresa Boggs DO -Sleep Lab Work Phone: Start: 08-23-2024 End: 08-23-2024 [facility] Start: 08-04-2024 End: 08-04-[address] Teresa Boggs DO -Laboratory Work Phone: Start: 08-04-2024 End: 08-04-2024 [facility] Start: 07-26-2024 End: 07-28-2024 [facility]ulatory [facility] Start: 07-26-2024 End: 07-28-[address] Dustin Lemus MD -Cardiac Rehab Work Phone: Start: 07-20-2024 End: 07-20-2024 Patient encounter procedure Quinton Silva [facility] -[facility] Work Phone: Start: 07-20-2024 End: 07-20-2024 ambulatory Teresa Malys Facility:[facility] Start: 06-26-2024 End: 06-27-2024 ambulatory Teresa Malys Facility:[facility] Start: 06-26-2024 End: 06-27-[address] Dustin Lemus MD -Cardiac Rehab Work Phone: Start: 05-22-2024 End: 05-22-[address] Dustin Lemus MD -Cardiac Rehab Work Phone: Start: 05-22-2024 End: 05-22-2024 ambulatory Teresa Malys Facility:[facility] Start: 05-10-2024 End: 05-10-2024 Patient encounter procedure Carrington BOYCE -[facility] Work Phone: Start: 05-10-2024 End: 05-10-2024 ambulatory Teresa Malys Facility:[facility] Start: 05-02-2024 End: 05-04-2024 Evaluation and management of inpatient Nataly Tovar MD Work Phone: [facility] Cardiac Thoracic Vascular Intensive Care Unit CTV ICU T1 Comment on above: Accelerating angina (HCC) (Primary Dx) Start: 05-01-2024 End: 05-01-2024 ambulatory Teresa Malys Facility:[facility] Start: 04-27-2024 ambulatory Teresa Malys [facility] Start: 04-18-2024 End: 04-18-2024 ambulatory Teresa Malys Facility:[facility] Start: 04-14-2024 ambulatory Teresa Malys Facility:[facility] Start: 04-14-2024 End: 04-14-2024 ambulatory Teresa Malys Facility:[facility] Start: 04-06-2024 End: 04-06-2024 ambulatory Teresa Malys Facility:[facility] Start: 04-05-2024 ambulatory Teresa Malys Facility:[facility] Start: 03-29-2024 ambulatory Teresa Boggs Facility:[facility] Start: 03-28-2024 End: 03-28-2024 ambulatory Teresa Boggs Facility:[facility] Start: 10-07-2023 End: 10-07-[address] Teresa Boggs Work Phone: [facility] Work Phone: Start: 10-07-2023 End: 10-07-[address] Teresa Boggs Work Phone: [facility]-Radiology, [facility] Work Phone: Start: 10-05-2023 End: 10-05-[address] Teresa Boggs Work Phone: [facility] Work Phone: Start: 10-05-2023 End: 10-05-[address] Teresa Boggs Work Phone: [facility]-Laboratory Work Phone: Start: 08-14-2023 End: 08-14-[address] Teresa Boggs Work Phone: [facility] Work Phone: Start: 08-14-2023 End: 08-14-[address] Teresa Boggs Work Phone: [facility]-Cat Scan, [facility] Work Phone: Start: 2023 End: [address] Teresa Boggs Work Phone: [facility] Work Phone: Start: 2023 End: [address] Teresa Boggs Work Phone: [facility]-Laboratory Work Phone: Start: 07-27-2023 End: 07-27-[address] Teresa Boggs Work Phone: [facility] Work Phone: Start: 07-27-2023 End: 07-27-[address] Teresa Boggs Work Phone: [facility]-Laboratory Work Phone: Start: 07-01-2023 End: 07-01-[address] Teresa Boggs Work Phone: [facility] Work Phone: Start: 07-01-2023 End: 07-01-[address] Teresa Boggs Work Phone: [facility] Work Phone: Start: 07-01-2023 End: 07-01-[address] Teresa Bogsg Work Phone: [facility]-Laboratory Work Phone: Start: 01-07-2023 End: 01-07-[address] Teresa Boggs Work Phone: [facility] Work Phone: Start: 01-07-2023 End: 01-07-[address] Teresa Boggs Work Phone: [facility] Work Phone: Start: 12-31-2022 End: 12-31-[address] Teresa Boggs Work Phone: [facility] Work Phone: Start: 12-31-2022 End: 12-31-[address] Teresa Boggs Work Phone: [facility]-Outpatient Breast Imaging Work Phone: Start: 10-19-2022 Non-patient / Non-visit Dr. Marge Boggs Work Phone: [facility] Start: 10-19-2022 End: 10-19-2022 Admission to same day surgery center Dr. Teresa Boggs Work Phone: [facility]-Endoscopy Start: 10-19-2022 End: 10-19-[address] Teresa Boggs Work Phone: [facility] Work Phone: Start: 10-08-2022 Non-patient / Non-visit Dr. Marge Boggs Work Phone: [facility] Start: 09-22-2022 End: 09-22-[address] Teresa Boggs Work Phone: [facility] Work Phone: Start: 09-22-2022 End: 09-22-[address] Teresa Boggs Work Phone: [facility]-Laboratory Start: 08-21-2022 End: 08-21-[address] Teresa Boggs Work Phone: [facility] Start: 08-06-2022 End: 08-06-[address] Teresa Boggs Work Phone: [facility] Start: 07-30-2022 End: 07-30-[address] Teresa Boggs Work Phone: [facility] Work Phone: Start: 07-30-2022 End: 07-30-[address] Teresa Boggs Work Phone: [facility] Start: 07-30-[address] Teresa solares Work Phone: [facility]-Cardiovascula r Services Start: 07-21-2022 End: 07-21-[address] Teresa Boggs Work Phone: [facility] Start: 07-15-2022 Non-patient / Non-visit Dr. Marge Boggs Work Phone: [facility] Start: 07-15-2022 End: 07-15-2022 Admission to same day surgery center Dr. Teresa Boggs Work Phone: [facility]-Surgical Day Care Start: 07-15-2022 End: 07-15-[address] Teresa Boggs Work Phone: [facility] Work Phone: Start: 07-14-2022 Non-patient / Non-visit Dr. Marge Boggs Work Phone: [facility] Start: 07-10-2022 End: 07-10-[address] Teresa Boggs Work Phone: [facility] Work Phone: Start: 07-10-2022 End: 07-10-[address] Teresa Boggs Work Phone: [facility]-Laboratory Start: 06-08-2022 End: 06-08-[address] Teresa Boggs Work Phone: [facility] Start: 05-28-2022 End: 05-28-[address] Teresa Boggs Work Phone: [facility] Work Phone: Start: 05-28-2022 End: 05-28-[address] Teresa Boggs Work Phone: [facility]-Laboratory Start: 05-06-2022 End: 05-06-[address] Teresa Boggs Work Phone: [facility] Start: 03-31-2022 End: 03-31-[address] Teresa Boggs Work Phone: [facility] Work Phone: Start: 03-31-2022 End: 03-31-[address] Teresa Boggs Work Phone: [facility]-Laboratory Start: 02-24-2022 End: 02-24-2022 Emergency department patient visit Dr. Teresa Boggs Work Phone: [facility]-Emergency Department Start: 01-24-2022 End: 01-24-[address] [facility] Start: 01-13-2022 End: 01-13-[address] [facility] Start: 01-12-2022 End: 01-12-[address] Teresa Boggs Work Phone: [facility] Start: 12-26-2021 End: 12-26-2021 Patient encounter procedure [facility]-Outpatient Breast Imaging Start: 08-29-2007 End: 08-29-2007 Patient encounter procedure Moises (Dipti Muniz [facility] Comment on above: MYALGIA AND MYOSITIS NOS; HYPOTHYROIDISM NOS; BENIGN HYPERTENSION; DEPRESSIVE DISORDER NEC; ANXIETY STATE NOS Procedures Date Procedure Procedure Detail Performing Clinician Start: 05-04-2024 Comprehensive metabo lic panel Denilson Wagle DO Work Phone: Start: 05-04-2024 Ecg routine ecg w/le ast 12 lds trcg only w/o i&r Denilson Wagle DO Work Phone: Start: 05-03-2024 Ecg routine ecg w/le ast 12 lds trcg only w/o i&r Denilson Wagle DO Work Phone: Start: 05-03-2024 Comprehensive metabo lic panel Denilson Wagle DO Work Phone: Start: 05-03-2024 Blood count complete automated Denilson Wagle DO Work Phone: Start: 05-02-2024 Ecg routine ecg w/le ast 12 lds trcg only w/o i&r Ana Mathis DO Work Phone: Start: 05-02-2024 End: 05-02-2024 Basic metabolic panel calcium total Denilson Wagldarrius DO Work Phone: Start: 05-02-2024 Ecg routine ecg w/le ast 12 lds trcg only w/o i&r Ana Mathis DO Work Phone: Start: 05-02-2024 End: 05-02-2024 Ecg routine ecg w/least 12 lds trcg only w/o i&r Jeison Sheriff MD Work Phone: Start: 05-02-2024 Blood count complete auto&auto difrntl wbc Jeison Sheriff MD Work Phone: Start: 05-02-2024 Ecg routine ecg w/le ast 12 lds trcg only w/o i&r Madeleine Mcnair MD Work Phone: Start: 05-02-2024 Cardiac catheterizat ion study 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 Teresa Boggs DO Work Phone: Comment on above: Successful IVUS guid ed PCI of 90% ostial LM into the diffusely diseased proximal-mid LAD with a 3.0x38 mm Xience JATIN (LM into LAD), further post-dilated proximally in the LMCA with a 4.0mm NC balloon. Additional 2.75 x 18 mm Xience JATIN placed to the mid LAD with a short region of stent overlap.Successful PCI of the proximal-mid LCX into OM2 with deployment of 2 overlapped Xience JATIN (3.0x23mm proximal and 2.5x38 mm midLCx into OM2) Start: 05-02-2024 Echo tthrc r-t 2d w/wom-mode compl spec&colr d Denilson Wagle DO Work Phone: Start: 05-02-2024 Radiologic exam ches t single view Denilson Wagle DO Work Phone: Start: 05-02-2024 Assay of troponin quantitative Denilson Wagle DO Work Phone: Start: 05-02-2024 Ecg routine ecg w/le ast 12 lds trcg only w/o i&r Denilson Wagle DO Work Phone: Start: 05-02-2024 End: 05-02-2024 Basic metabolic panel calcium total 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 Teresa Boggs Work Phone: Start: 08-14-2023 CT of head without contrast Dr. Teresa Boggs Work Phone: Start: 12-31-2022 End: 12-31-[address] Teresa Boggs Work Phone: Start: 10-19-[address] Teresa solares Work Phone: Start: 07-15-[address] Teresa solares Work Phone: Start: 05-06-2022 Radiologic examinati on of knee Dr. Teresa Boggs Work Phone: Start: 02-24-2022 CT angiography of ch est with contrast Dr. Teresa Boggs Work Phone: Start: 02-24-2022 Plain chest X-ray Dr. Sravani Boggs Work Phone: Start: 12-26-2021 Screening mammography Start: 03-25-2020 History of placement of stent for coronary artery disease H/O right coronary artery stent placement Start: 02-02-2017 End: 02-02-2017 COMMERCIAL CARPENTER Ana Bailey PA-C Work Phone: Start: 02-02-2017 End: 02-02-2017 Follow Up Appt 6 months Ana Bailey PA-C Work Phone: Start: 01-29-2017 End: 01-29-2017 *Hepatic Function Panel Ana Bailey PA-C Work Phone: Start: 01-29-2017 End: 01-29-2017 Lipid panel [AGGREGATE] Ana Bailey PA-C Work Phone: Start: 08-06-2016 End: 08-06-2016 Follow Up Appt 6 months Merrill Joyner Start: 08-06-2016 End: 08-06-2016 HERACLIO Lemus MD Start: 08-05-2016 End: 08-05-2016 *Hepatic Function Panel Ana Bailey PA-C Work Phone: Start: 08-05-2016 End: 08-05-2016 Lipid panel [AGGREGATE] Ana Bailey PA-C Work Phone: Start: 06-24-2016 End: 06-24-2016 Dietary management education, guidance, and counseling Carrington Wakefield NP Start: 04-15-2016 End: 05-11-2016 Follow Up Appt Other Carlos Peoples MD Start: 04-03-2016 End: 04-03-2016 COMMERCIAL CARPENTER Braeden Jones [employer] PIPE [employer]-C Start: 04-03-2016 End: 04-03-2016 Follow Up Appt 4 months 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 Jones [employer]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 Start: 03-06-2016 End: 04-08-2016 *Hepatic Function Panel Ana Bailey PA-C Work Phone: Start: 03-06-2016 End: 04-08-2016 Lipid panel [AGGREGATE] Ana Bailey PA-C Work Phone: Start: 11-15-2015 End: 11-15-2015 COMMERCIAL CARPENTER Dustin Lemus MD Start: 11-15-2015 End: 12-09-2015 Echocardiography Dustin Lemus MD Start: 11-15-2015 End: 11-15-2015 Electrocardiogram, complete Dustin Lemus MD Start: 11-15-2015 End: 11-15-2015 Follow Up Appt 3 months Merrill Joyner Start: 11-15-2015 End: 11-16-2015 Referral to rotary drier Dustin Lemus MD Start: 11-06-2015 Placement of stent i n coronary artery Mutilple coronary stents Carrington Wakefield NP Start: 10-31-2015 End: 12-09-2015 Arterial exam Carlos [...] Joyner Start: 06-11-2015 End: 01-25-2017 HbA1c Teresa Contreras Flakita, DO Work Phone: Start: 06-11-2015 End: 01-25-2017 Hemoglobin glycosylated a1c Teresa Contreras Flakita, DO Work Phone: Start: 04-04-2015 End: 01-25-2017 Mammogram, screening Teresa Contreras Flakita, DO Work Phone: Start: 03-14-2015 End: 03-14-2015 Colonoscopy Ana Bailey PA-C Work Phone: Start: 03-14-2015 End: 03-14-2015 COMMERCIAL CARPENTER Ana Bailey PA-C Work Phone: Start: 03-14-2015 End: 03-14-2015 Documentation of current medications Ana Bailey PA-C Work Phone: Start: 03-14-2015 End: 03-14-2015 Follow Up Appt 6 months Ana Bailey PA-C Work Phone: Start: 02-06-2015 End: 02-06-2015 *BMP Ana Bailey PA-C Work Phone: Start: 02-06-2015 End: 02-06-2015 *CBC with Differential Ana Bailey PA-C Work Phone: Start: 02-06-2015 End: 02-07-2015 Colonoscopy Ana Bailey PA-C Work Phone: Start: 02-06-2015 End: 02-06-2015 COMMERCIAL CARPENTER Ana Bailey PA-C Work Phone: Start: 02-06-2015 End: 02-07-2015 Documentation of current medications Ana Bailey PA-C Work Phone: Start: 02-06-2015 End: 02-06-2015 Electrocardiogram, complete Ana Bailey PA-C Work Phone: Start: 02-06-2015 End: 02-06-2015 Follow Up Appt 1 month Ana Bailey PA-C Work Phone: Start: 02-06-2015 End: 02-06-2015 Follow Up Appt 6 months Ana Bailey PA-C Work Phone: Start: 02-06-2015 End: 02-06-2015 MMM Ana Bailey PA-C Work Phone: Start: 02-06-2015 End: 02-11-2015 Nuclear stress test -Lexiscan Ana Bailey PA-C Work Phone: Start: 02-06-2015 End: 02-06-2015 Thyroid stimulating hormone (TSH) Ana Baliey PA-C Work Phone: Start: 02-06-2015 End: 02-06-2015 [...] Sun Ritchie MD Start: 02-28-2014 End: 03-09-2014 *YAA Ritchie MD Start: 02-28-2014 End: 03-09-2014 *UA - Urinalysis w/o Micro Sun Ritchie MD Start: 02-28-2014 End: 03-09-2014 CBC W Auto Differential panel - Blood Sun Ritchie MD Start: 02-28-2014 General examination of patient Health maintenance exam Carrington Wakefield NP Start: 02-28-2014 End: 03-21-2014 Mammogram, Screening, both breasts Sun Ritchie MD Start: 02-28-2014 Screening mammography Screenin g mammogram 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 Start: 02-28-2014 End: 03-09-2014 Thyroid stimulating hormone (TSH) Sun Ritchie MD Start: 01-25-2014 End: 01-25-2014 COMMERCIAL CARPENTER Ana Bailey PA-C Work Phone: Start: 01-25-2014 End: 01-25-2014 Follow Up Appt 6 months Ana Bailey PA-C Work Phone: Start: 01-25-2014 End: 01-25-2014 Follow Up Appt Other Ana Bailey PA-C Work Phone: Start: 12-26-2013 End: 02-01-2014 [...] 04-27-2013 End: 04-27-2013 *Hepatic Function Panel Ana Bailey PA-C Work Phone: Start: 04-27-2013 End: 04-27-2013 COMMERCIAL CARPENTER Ana Bailey PA-C Work Phone: Start: 04-27-2013 End: 04-27-2013 Follow Up Appt 3 months Ana Bailey PA-C Work Phone: Start: 04-27-2013 End: 04-27-2013 Lipid panel [AGGREGATE] Ana Bailey PA-C Work Phone: Start: 04-27-2013 Percutaneous translu kale coronary angioplasty CORONARY ARTERY DISEASE, S/P PTCA Carrington Wakefield NP Start: 04-12-2013 End: 07-05-2013 Cardiac Rehab Dustin Lemus MD Start: 03-23-2013 End: 04-13-2013 Left Heart Cath W/Grafts Carlos Chavez MD Work Phone: Start: 03-06-2013 Colonoscopy Moises sanz Start: 10-26-2012 End: 10-31-2012 *Hepatic Function Panel Merrill Joyner Start: 10-26-2012 End: 11-01-2012 Echocardiography Dustin Lemus MD Start: 10-26-2012 End: 10-26-2012 Follow Up Appt 6 months Merrill Joyner Start: 10-26-2012 End: 10-31-2012 Lipid panel [AGGREGATE] Merrill Joyner Start: 10-26-2012 End: 10-26-2012 HERACLIO Lemus MD Start: 10-21-2007 History of coronary artery bypass grafting H/O coronary artery bypass surgery 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 Teresa Boggs Work Phone: Comment on above: Excision 1.1 cm basa l cell carcinoma left postauricular area with extension to the posterior ear with rhomboid transposition skin flap reconstruction (10.58 cm2) - 07/15/22Excision 2 cm basal cell carcinoma scar right neck with rhomboid transposition skin flap reconstruction (24 cm2) and excision 6 mm lesion left middle medial back with 2.5 cm layered closure - 06/17/16 History of placement of stent for coronary artery disease History of coronary artery stent placement Dr. Teresa Boggs Work Phone: Comment on above: [id number]-[id number]-Lcwb RCA w/ 3.0 x 12 mm Promus Element 03/30/2013; [id number]-VHH-Yqdbqd RCA w/ 2.25 x 24 mm Synergy JATIN-Distal RCA-Prox/Ostium PDA w/ 2.25 x 16 mm Synergy 10/22/2015; [id number]-OM2 w/ 3.5 x 38 mm Synergy MR Stent 03/25/2020 History of placement of stent for coronary artery disease History of coronary artery stent placement Carrington Wakefield TRAILER DRIVERIreneC History of placement of stent for coronary artery disease History of coronary artery stent placement Ana ALVARADO Plan of Treatment Date Care Activity Detail Author Start: 04-16-2033 DTaP/Tdap/Td Vaccine s (4 - Td or Tdap) DTaP/Tdap/Td Vaccines (4 - Td or Tdap) [facility] Start: 05-02-2029 Lipid panel Lipid Panel [facility] Start: 05-02-2025 Diabetes mellitus screening Diabetes Screening [facility] Start: 05-02-2025 Thyroid stimulating hormone measurement TSH Level [facility] Start: 11-21-2024 Measurement of respi ratory function [facility] Start: 05-10-2024 Patient referral [facility] Work Phone: Start: 01-01-2024 Screening for malign ant neoplasm of breast Mammogram [facility] Start: 06-28-2023 Medicare Advantage A nnual Wellness Visit Medicare Advantage Annual Wellness Visit [facility] Start: 10-19-[address] [facility] Start: 07-15-2022 Adjt tis reargmt eye/nose/ear/lip 10.1-30.0 sqcm TIS TRNFR E/N/E/L10.1-30SQCM [facility] Start: 07-15-2022 Anes integ musc & nr v head neck&posterior trunk ANESTH HEAD/NECK/PTRUNK [facility] Start: 07-15-[address] [facility] Start: 02-24-2022 [facility] Work Phone: Start: 02-26-2021 Influenza vaccination INFLUENZA (Sea son Ended) [facility] Start: 01-11-2021 Pneumococcal Vaccine : 65+ Years (2 of 2 - PPSV23 or PCV20) Pneumococcal Vaccine: 65+ Years (2 of 2 - PPSV23 or PCV20) [facility] Start: 10-22-2020 LIPID SCREEN LIPID SCREEN [facility] Start: 2019 ADVANCE DIRECTIVE DISCUSSION ADVANCE DIRECTIVE DISCUSSION [facility] Start: 2019 BONE DENSITY BONE DENSITY [facility] Start: 2019 PNEUMOVAX AGE 65 AND OVER WITH 5YR LOOKBACK (#1) PNEUMOVAX AGE 65 AND OVER WITH 5YR LOOKBACK (#1) [facility] Start: 10-23-2018 DIABETES SCREEN DIABETES SCREEN [facility] Start: 03-06-2018 Screening for malign ant neoplasm of colon [facility] Start: 08-12-2017 End: 08-12-2017 Appointment Appointment [facility] Work Phone: Start: 02-03-2017 End: 01-29-2017 *Hepatic Function Panel *Hepatic Function Panel [facility] Work Phone: Start: 02-03-2017 End: 01-29-2017 Lipid panel [AGGREGATE] *Lipid Profile CC PCP [facility] Work Phone: Start: 02-02-2017 End: 02-02-2017 Appointment Appointment [facility] Work Phone: Start: 02-02-2017 End: 02-02-2017 COMMERCIAL CARPENTER COMMERCIAL CARPENTER [facility] Work Phone: Start: 02-02-2017 End: 02-02-2017 Follow Up Appt 6 months Follow Up Appt 6 months [facility] Work Phone: Start: 10-07-2016 End: 08-05-2016 *Hepatic Function Panel *Hepatic Function Panel [facility] Work Phone: Start: 10-07-2016 End: 08-05-2016 Lipid panel [AGGREGATE] *Lipid Profile CC PCP [facility] Work Phone: Start: 08-06-2016 End: 08-06-2016 Follow Up Appt 6 months Follow Up Appt 6 months [facility] Work Phone: Start: 08-06-2016 End: 08-06-2016 MMM MMM [facility] Work Phone: Start: 06-24-2016 End: 06-29-2016 Follow Up Appt 6 months Follow Up Appt 6 months [facility] Work Phone: Start: 06-24-2016 End: 06-30-2016 Primary Care Physician Primary Care Physician Teresa Boggs DO, [facility] [address] [place] [address] A, [place], [address] [facility] Work Phone: Start: 04-15-2016 End: 05-11-2016 Follow Up Appt Other Follow Up Appt Other [facility] Work Phone: Start: 04-03-2016 End: 04-03-2016 COMMERCIAL CARPENTER COMMERCIAL CARPENTER [facility] Work Phone: Start: 04-03-2016 End: 04-03-2016 Follow Up Appt 4 months Follow Up Appt 4 months [facility] Work Phone: Start: 03-06-2016 End: 04-08-2016 *Hepatic Function Panel *Hepatic Function Panel [email or web address] Work Phone: Start: 03-06-2016 End: 04-08-2016 Lipid panel [AGGREGATE] *Lipid Profile CC PCP [facility] Work Phone: Start: 11-15-2015 End: 01-02-2016 Cardiac Rehab Card[facility] [address] [place], [address] [facility] Work Phone: Start: 11-15-2015 End: 11-15-2015 COMMERCIAL CARPENTER COMMERCIAL CARPENTER [facility] Work Phone: Start: 11-15-2015 End: 11-15-2015 Echocardiography Echocardiogram (complete) [facility] Work Phone: Start: 11-15-2015 End: 11-15-2015 Electrocardiogram, complete EKG (In office) [facility] Work Phone: Start: 11-15-2015 End: 11-15-2015 Follow Up Appt 3 months Follow Up Appt 3 months [email or web address] [facility] Work Phone: Start: 10-31-2015 End: 12-09-2015 Arterial exam Arterial exam [facility] Work Phone: Start: 08-15-2015 End: 08-15-2015 Follow Up Appt 6 months Follow Up Appt 6 months [email or web address] [facility] Work Phone: Start: 08-15-2015 End: 08-15-2015 MMM MMM [facility] Work Phone: Start: 08-09-2015 End: 09-04-2015 *Hepatic Function Panel *Hepatic Function Panel [facility] Work Phone: Start: 08-09-2015 End: 09-04-2015 Lipid panel [AGGREGATE] *Lipid Profile CC PCP [facility] Work Phone: Start: 06-11-2015 End: 01-25-2017 HbA1c HGB A1C (Office) [facility] Work Phone: Start: 05-19-2015 Urine microalbumin profile DTAP,TDAP ,TD (2 - Tdap) [facility] Start: 04-04-2015 End: 01-25-2017 Mammogram, screening Mammogram, Screening, both breasts [employer] Work Phone: Start: 03-14-2015 End: 03-14-2015 COMMERCIAL CARPENTER COMMERCIAL CARPENTER [employer] Work Phone: Start: 03-14-2015 End: 03-14-2015 Follow Up Appt 6 months Follow Up Appt 6 months [facility] Work Phone: Start: 02-06-2015 End: 02-06-2015 *BMP *BMP [employer] Work Phone: Start: 02-06-2015 End: 02-06-2015 *CBC with Differential *CBC with Differential [employer] Work Phone: Start: 02-06-2015 End: 02-06-2015 COMMERCIAL CARPENTER COMMERCIAL CARPENTER [facility] Work Phone: Start: 02-06-2015 End: 02-06-2015 Electrocardiogram, complete EKG (In office) [facility] Work Phone: Start: 02-06-2015 End: 02-06-2015 Follow Up Appt 1 month Follow Up Appt 1 month [employer] Work Phone: Start: 02-06-2015 End: 02-06-2015 Follow Up Appt 6 months Follow Up Appt 6 months [email or web address] [facility] Work Phone: Start: 02-06-2015 End: 02-06-2015 MMM MMM [employer] Work Phone: Start: 02-06-2015 End: 02-06-2015 Nuclear stress test -Lexiscan Nuclear stress test -Lexiscan [employer] Work Phone: Start: 02-06-2015 End: 02-06-2015 Thyroid stimulating hormone (TSH) *TSH [employer] Work Phone: Start: 02-06-2015 End: 02-06-2015 Thyroxine (T4) *T4 (Total) [facility] Work Phone: Start: 01-31-2015 End: 02-06-2015 *Hepatic Function Panel *Hepatic Function Panel [facility] Work Phone: Start: 01-31-2015 End: 02-06-2015 Lipid panel [AGGREGATE] *Lipid Profile CC PCP [facility] Work Phone: Start: 08-07-2014 End: 08-07-2014 Follow Up Appt 6 months Follow Up Appt 6 months [facility] Work Phone: Start: 08-07-2014 End: 08-07-2014 MMM MMM [facility] Work Phone: Start: 07-29-2014 End: 08-03-2014 *Hepatic Function Panel *Hepatic Function Panel [employer] Work Phone: Start: 07-29-2014 End: 08-03-2014 Lipid panel [AGGREGATE] *Lipid Profile CC PCP [facility] Work Phone: Start: 07-24-2014 End: 07-27-2014 *BMP *BMP [facility] Work Phone: Start: 07-24-2014 End: 07-26-2014 Urine culture, bacteria *CUUR - Culture, Urine ([place] Count) [facility] Work Phone: Start: 02-28-2014 End: 03-09-2014 *BMP *BMP [facility] Work Phone: Start: 02-28-2014 End: 03-09-2014 *UA - Urinalysis w/o Micro *UA - Urinalysis w/o Micro [facility] Work Phone: Start: 02-28-2014 End: 03-09-2014 CBC W Auto Differential panel - Blood *CBC without Diff [facility] Work Phone: Start: 02-28-2014 End: 03-21-2014 Mammogram, Screening, both breasts Mammogram, Screening, both breasts [employer] Work Phone: Start: 02-28-2014 End: 03-09-2014 Thyroid stimulating hormone (TSH) *TSH [employer] Work Phone: Start: 01-25-2014 End: 01-25-2014 COMMERCIAL CARPENTER COMMERCIAL CARPENTER [employer] Work Phone: Start: 01-25-2014 End: 01-25-2014 Follow Up Appt 6 months Follow Up Appt 6 months [employer] Work Phone: Start: 01-25-2014 End: 01-25-2014 Follow Up Appt Other Follow Up Appt Other [employer] Work Phone: Start: 12-26-2013 End: 02-01-2014 *Hepatic Function Panel *Hepatic Function Panel [employer] Work Phone: Start: 12-26-2013 End: 02-01-2014 Lipid panel [AGGREGATE] *Lipid Profile CC PCP [employer] Work Phone: Start: 07-28-2013 End: 07-28-2013 Follow Up Appt 6 months Follow Up Appt 6 months [employer] Work Phone: Start: 07-28-2013 End: 07-28-2013 MMM MMM [employer] Work Phone: Start: 07-25-2013 End: 07-26-2013 *NEFTALY - Fungus, NEFTALY Prep *NEFTALY - Fungus, NEFTALY Prep [employer] Work Phone: Start: 07-25-2013 End: 07-26-2013 Occult blood, feces Occult Stools (Office) [employer] Work Phone: Start: 07-25-2013 End: 07-25-2013 Transvaginal us, non-ob US Transvaginal [employer] Work Phone: Start: 07-25-2013 End: 07-26-2013 Trichomonas vaginalis [Presence] in Unspecified specimen by Wet preparation *WP - Wet Prep - Trichomonas [employer] Work Phone: Start: 07-25-2013 End: 07-26-2013 Urinalysis nonauto w/o scope UA Dipstick (Office) [facility] Work Phone: Start: 07-25-2013 End: 07-26-2013 Urine culture, bacteria *CUUR - Culture, Urine ([place] Count) [facility] Work Phone: Start: 07-25-2013 End: 07-26-2013 Other Other [facility] Work Phone: Start: 05-24-2013 End: 07-26-2013 Rheumatology Referral Rheumatology Referral Jeb Montero MD, [facility] [place], [address] [facility] Work Phone: Start: 04-28-2013 End: 01-24-2014 *Hepatic Function Panel *Hepatic Function Panel [facility] Work Phone: Start: 04-28-2013 End: 01-24-2014 Lipid panel [AGGREGATE] *Lipid Profile [facility] Work Phone: Start: 04-27-2013 End: 04-27-2013 *Hepatic Function Panel *Hepatic Function Panel [facility] Work Phone: Start: 04-27-2013 End: 04-27-2013 COMMERCIAL CARPENTER COMMERCIAL CARPENTER [facility] Work Phone: Start: 04-27-2013 End: 04-27-2013 Follow Up Appt 3 months Follow Up Appt 3 months [facility] Work Phone: Start: 04-27-2013 End: 04-27-2013 Lipid panel [AGGREGATE] *Lipid Profile CC PCP [facility] Work Phone: Start: 04-12-2013 End: 04-13-2013 Cardiac Rehab Cardiac Rehab [facility] Work Phone: Start: 03-23-2013 End: 03-24-2013 Left Heart Cath W/Grafts Left Heart Cath W/Grafts [facility] Work Phone: Start: 10-26-2012 End: 10-31-2012 *Hepatic Function Panel *Hepatic Function Panel [facility] Work Phone: Start: 10-26-2012 End: 10-26-2012 Echocardiography Echocardiogram (complete) [facility] Work Phone: Start: 10-26-2012 End: 10-26-2012 Follow Up Appt 6 months Follow Up Appt 6 months [facility] Work Phone: Start: 10-26-2012 End: 10-31-2012 Lipid panel [AGGREGATE] *Lipid Profile [facility] Work Phone: Start: 10-26-2012 End: 10-26-2012 MMM MMM [facility] Work Phone: Start: 06-09-2006 Mammography MAMMOGRAM [facility] Start: 2004 Screening for malign ant neoplasm of colon [facility] Start: 2004 SHINGRIX VACCINE (1 of 2) CARROLL GRIX VACCINE (1 of 2) [facility] Start: 1972 Hepatitis C screening Hepatitis C [facility] Start: 1966 Adult depression [facility] assessment DEPRESSION SCREENING [facility] Start: 1966 COVID-19 VACCINE (1) COVID-19 VACCIN E (1) [facility] Start: 1966 Depression Monitoring Depression [facility] Start: 1954 Screening for malign ant neoplasm of colon [facility] Start: 1954 Screening for osteoporosis Bone Dens ity Scan [facility] Basic metabolic 2000 panel - Serum or Plasma BASIC METABOLIC PNL Lab Routine Benign Hypertension Ordered: 08/29/2007 [facility] Comment on above: Ordered: 08/29/2007 CBC panel - Blood by Automated count CBC + PLT Lab Routine Benign Hypertension Ordered: 08/29/2007 [facility] Comment on above: Ordered: 08/29/2007 CBC W Auto Different ial panel - Blood [facility] Colonoscopy [facility] LIPID PANEL BASIC LIPID PANEL BA SIC Lab Routine Hypothyroidism Nos Ordered: 08/29/2007 [facility] Comment on above: Ordered: 08/29/2007 Patient Education [facility] Work Phone: Patient referral [facility] Work Phone: Radionuclide imaging of perfusion of myocardium under exercise stress [facility] Thyrotropin [Units/v olume] in Serum or Plasma TSH BLD Lab Routine Hypothyroidism Nos Ordered: 08/29/2007 [facility] Comment on above: Ordered: 08/29/2007 US Carotid arteries [facility] [place] [place] Immunizations Immunization Date Immunization Notes Care Provider Denisse soliz 09-18-2020 [facility]Modern[facility] 08-21-2020 Covid (Moderna) [facility] 02-15-2020 influenza, injectable, quadrivalent, preservative free Dr. Teresa Boggs Work Phone: [facility] 02-15-2020 influenza, seasonal, injectable [facility] 02-15-2020 pneumococcal conjugate vaccine, 13 valent [facility] 03-12-2019 influenza, injectable, quadrivalent, preservative free Dr. Teresa Boggs Work Phone: [facility] 03-12-2019 influenza, seasonal, injectable [facility] 03-28-2017 Influenza virus vaccine [facility] 02-03-2014 tetanus and diphtheria toxoids, adsorbed, preservative free, for adult use (2 Lf of tetanus toxoid and 2 Lf of diphtheria toxoid) [facility] 05-19-2005 diphtheria and tetanus toxoids, adsorbed for pediatric use [facility] 05-06-2005 influenza virus vaccine, unspecified formulation [facility] 04-24-2003 influenza virus vaccine, unspecified formulation [facility] NEGATED: Highlighted row has not occurred!05-04-2024 Seasonal trivalent influenza vaccine, adjuvanted, preservative free Nataly Tovar MD Work Phone: [employer] Comment on above: Deferred: Other - pt already had flu vaccine Payers Date Payer Category Payer Self-pay [id number] 2024 Medicare HMO UHC DUAL COMPLET E [id number] 2024 Medicaid [id number] Medicare [id number] 2014 Medicare [id number] 2013 Unknown [employer] [id number] 2007 Unknown [facility] [employer] [employer] EM[employer]EE / YAZIDI [id number] 2007-2008 O [id number] Medicaid [id number] Medicare [id number] Unknown [employer] [id number] Unknown [id number] Unknown [id number] 2.16840.1.169963.3.579.2.462 Unknown [id number] 2.16840.1.194966.3.579.2.462 Unknown [id number] 2.16840.1.812189.3.579.2.462 Unknown [id number] 2.16840.1.178154.3.579.2.462 Unknown [id number] 2.16.840.1.693238.3.579.2.462 Unknown [id number] 2.840.1.202922.3.579.2.462 Unknown [id number] 2.16.840.1.770659.3.579.2.462 Unknown [id number] 2.16840.1.785961.3.579.2.462 Unknown [id number] 2.840.1.055198.3.579.2.462 Unknown [id number] 2.840.1.932627.3.579.2.462 Unknown [id number] 2.840.1.204966.3.579.2.462 Unknown [id number] 2.840.1.878250.3.579.2.462 Unknown [id number] 2.840.1.380251.3.579.2.462 Unknown [id number] 2.840.1.187725.3.579.2.462 Unknown [id number] 2.840.1.163776.3.579.2.462 Unknown [id number] 2.840.1.444226.3.579.2.462 Unknown [id number] 2.840.1.670459.3.579.2.462 Unknown [id number] 2.840.1.765550.3.579.2.462 Unknown [id number] 2.840.1.117556.3.579.2.462 Unknown [id number] 2.840.1.087899.3.579.2.462 Unknown [id number] 2.840.1.370405.3.579.2.462 Unknown [id number] 2.840.1.884537.3.579.2.462 Unknown [id number] 2.840.1.696991.3.579.2.462 Unknown [id number] 2.16.840.1.661721.3.579.2.462 Unknown [id number] 2.16.840.1.232310.3.579.2.462 Unknown [id number] 2.16.840.1.297851.3.579.2.462 Unknown [id number] 2.840.1.292713.3.579.2.462 Unknown [id number] 2.16840.1.668414.3.579.2.462 Unknown [id number] 2.840.1.062316.3.579.2.462 Unknown [id number] 2.840.1.624933.3.579.2.462 Unknown [id number] 2.840.1.299463.3.579.2.462 Unknown [id number] 2.840.1.464609.3.579.2.462 Unknown [id number] 2.840.1.299023.3.579.2.462 Unknown [id number] 2.840.1.980319.3.579.2.462 Unknown [id number] 2.840.1.374827.3.579.2.462 Unknown [id number] 2.840.1.852304.3.579.2.462 Unknown [id number] 2.840.1.032832.3.579.2.462 Unknown [id number] 2.840.1.582208.3.579.2.462 Unknown [id number] 2.16840.1.925167.3.579.2.462 Unknown [id number] 2.16840.1.250384.3.579.2.462 Unknown [id number] 2.840.1.924801.3.579.2.462 Unknown [id number] 2.16.840.1.655836.3.579.2.462 Social History Date Type Detail Facility Start: 06-06-2007 End: 10-10-2024 Tobacco smoking status NHIS Former smoker [facility] End: 06-07-1998 History of tobacco use Current smoker [facility] Start: 06-06-2007 Alcohol intake 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 (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) [facility] Start: 05-28-2007 Alcohol Comment stopped 19yrs ago [facility] Start: 1955 Sex Assigned At Not on file [facility] Start: 07-10-2021 End: 07-01-2023 Tobacco smoking status [facility] Unknown if ever smoked [facility] Start: 11-21-2020 None [facility] Start: 11-03-2019 [facility] Start: 11-21-2020 Non-smoker [facility] Start: 1955 Sex Assigned At Female [facility] End: 06-28-1974 History of tobacco use Cigarette Smoker [facility] Start: 05-02-2024 Tobacco use and exposure Smoke less tobacco non-user [facility] Start: 05-03-2024 Alcoholic beverage intake Lifetime non-drinker (finding) [facility] Start: 05-02-2024 History of Social function [facility] Start: 05-02-[id number] [facility] How often do you nee d to have someone help you when you read instructions, pamphlets, or other written material from your doctor or pharmacy [SILS] Never [facility] Has the [employer], or [employer] threatened to shut off services in your home in past 12Mo No [facility] Do you belong to any clubs or organizations such as orthodoxy groups, unions, fraternal or athletic groups, or school groups? Yes [facility] Are you now , , , , never or living with a partner? Never [facility] How often to you hav e a drink containing alcohol? Never [facility] Do you feel stress - tense, restless, nervous, or anxious, or unable to sleep at night because your mind is troubled all the time - these days [OSQ] Only a little [facility] Health (I/We) worried [facility] (my/our) food would run out before (I/we) got money to buy more. Never true [employer] Start: 09-03-2024 End: 10-06-2024 Sex Female (finding) [facility] NEGATED: Highlighted row [facility] Medical Equipment Procedure Code Equipment Code Equipment Origin al Text Equipment Identifier Dates Stent Cor Skypoi nt [id number] - [id number] Start: 05-02-2024 Stent Cor Skypoi nt [id number] - [id number] Start: 05-02-2024 Stent Cor Skypoi nt [id number] - [id number] Start: 05-02-2024 Stent Cor Skyp[facility] [id number] - [id number] Start: 05-02-2024 Device Perclose Prostyle - [id number] Start: 05-02-2024 Goals Date Patient Goal Desired Activity /State Mental Status Date Assessment Result Facility 10-19-2022 Cognitive function Voice[facility]Name [facility] Work Phone: 07-15-2022 Cognitive function Voice/Name [facility] Work Phone: 02-24-2022 Cognitive function Level Of Cons ciousness Awake;Alert;Appropriate;Follow s Commands [facility] Work Phone: Clinical Notes 08-29-2007 to 11-03-2024 Note Date & Type Note Facility 11-03-2024 Procedure note [facility] 10-18-2024 Evaluation note Diagnosis Onset Date Resolution Shortness of breath acute October 18, 2024 1:51pm ELODIA (obstructive sleep apnea) chronic October 18, 2024 1:51pm Shortness of breath acute December 15, 2024 8:43am ELODIA (obstructive sleep apnea) chronic December 15, 2024 8:43am [facility] Work Phone: 1(175) 764-971403-13-2025 Evaluation note* Diagnosis Onset Date Resolution Status Admit Date Bilateral carotid bruits chronic September 07, 2024 7:52am Chronic diastolic (congestive) heart failure chronic September 07, 2024 7:52am Essential (primary) hypertension chronic September 07, 2024 7:52am H/O coronary artery bypass surgery October 21, 2007September 07 7:52am History of coronary artery stent placement chronic September 07, 2024 7:52am Hyperlipidemia chronic August 7:52am ELODIA (obstructive sleep apnea) acute October 18, 2024 1:51pm Shortness of breath acute October 18, 2024 1:51pm [facility] Work Phone: [phone] Evaluation note* Diagnosis Onset Date Resolution Status Admit Date Bilateral carotid bruits chronic September 07, 2024 7:52am Chronic diastolic (congestive) heart failure chronic September 07, 2024 7:52am Essential (primary) hypertension chronic September 07, 2024 7:52am H/O coronary artery bypass surgery October 21, 2007September 07 7:52am History of coronary artery stent placement chronic September 07, 2024 7:52am Hyperlipidemia chronic August 7:52am ELODIA (obstructive sleep apnea) acute October 18, 2024 1:51pm Shortness of breath acute October 18, 2024 1:51pm ELODIA (obstructive sleep apnea) acute December 15, 2024 8:43am Shortness of breath acute December 15, 2024 8:43am [facility] Work Phone: [phone] Evaluation note* Diagnosis Onset Date Resolution Status Admit Date Bilateral carotid bruits chronic September 07, 2024 7:52am Chronic diastolic (congestive) heart failure chronic September 07, 2024 7:52am Essential (primary) hypertension chronic September 07, 2024 7:52am H/O coronary artery bypass surgery October 21, 2007 chronic September 07 7:52am History of coronary artery stent placement chronic September 07, 2024 7:52am Hyperlipidemia chronic August 7:52am Shortness of breath acute October 18, 2024 1:51pm ELODIA (obstructive sleep apnea) chroni c October 18, 2024 1:51pm Shortness of breath acute December 15, 2024 8:43am ELODIA (obstructive sleep apnea) chroni c December 15, 2024 8:43am [facility] Work Phone: 1(289) 984-416301-23-2025 Evaluation note* Diagnosis Onset Date Resolution Status Admit Date Acute bronchitis resolved July 20, 2024 9:05am Bilateral carotid bruits chronic September 07, 2024 7:52am Chronic diastolic (congestive) heart failure September 07, 2024 7:52am Essential (primary) hypertension September 07, 2024 7:52am H/O coronary artery bypass surgery October 21, 2007September 07 7:52am History of coronary artery stent placement September 07, 2024 7:52am Hyperlipidemia chronic August 7:52am [facility] Work Phone: 1(504) 770-879801-23-2025 Evaluation note* Diagnosis Onset Date Resolution Status Admit Date Acute bronchitis resolved July 20, 2024 9:05am Bilateral carotid bruits September 07, 2024 7:52am Chronic diastolic (congestive) heart failure September 07, 2024 7:52am Essential (primary) hypertension September 07, 2024 7:52am H/O coronary artery bypass surgery October 21, 2007September 07 7:52am History of coronary artery stent placement September 07, 2024 7:52am Hyperlipidemia august 7:52am ELODIA (obstructive sleep apnea) acute October 18, 2024 1:51pm Shortness of breath acute October 18, 2024 1:51pm [facility] Work Phone: 1(197) 319-382411-13-2024 Evaluation note* Diagnosis Onset Date Resolution Status Admit Date Bilateral carotid bruits May 10, 2024 3:38pm Chronic diastolic (congestive) heart failure chronic 2023 3:38pm Essential (primary) hypertension chronic May 10, 2 024 3:38pm H/O coronary artery bypass surgery October 21, 2007May 10, 2024 3:38pm History of coronary artery stent placement May 10, 2 024 3:38pm Hyperlipidemia April 282023 3:38pm Acute bronchitis acute July 20, 2024 9:05am [facility] Work Phone: 1(754) 566-868111-07-2024 Note Attestation signed by David Patel MD at 05/04/2024 2:12 PM I personally saw and evaluated this patient prior to discharge. I examined the patient, reviewed the meds and the follow-up information. I was personally involved in, and initiated the medical therapy to be used at discharge and the follow-up to be done. David Patel MD, PhD Advanced Heart Failure Cardiology [facility]. [facility] [place] 2:12 PM 05/04/24 [facility] Cardiology Discharge Summary Name: Nissa Trotter Date of : 1955 Date of Admission: 05/02/2024 Date of Discharge: 05/04/2024 Discharge Attending: Jeison Sheriff MD Primary Care Provider: TERESA BOGGS Type of Admission: Observation Code Status: Full Code Reason for Admission Multivessel PCI Discharge Diagnoses: Multivessel CAD s/p multivessel PCI Remote CABG Previous heart cath w/ PCI Post-procedure troponin elevation HTN Hospital Course Nissa Trotter is a 68 y.o. female who presented to [facility] on 05/02 after a cardiac cath at [facility] for consideration of PCI. The patient underwent multivessel PCI on 05/02. The patient was transferred to CCU s/p multivessel PCI with vasovagal episode post-procedure. She had a repeat vasovagal episode requiring a phenylephrine stick and IV fluids. She developed a hematoma over the right groin insertion site. She stabilized and was observed. She is stable and appropriate for discharge at this time. Consultants: IP CONSULT TO CARDIAC REHAB IP CONSULT TO CARDIAC REHAB IP CONSULT TO CARDIAC REHAB IP WOUND CARE NURSE CONSULT TO EVAL Procedures: Transthoracic echocardiogram Percutaneous coronary intervention, left heart cath Last diet during hospitalization: Adult diet Regular Recommended at discharge: Same as above. Activity Up with assist Disposition: Home Condition at Discharge: good Followup Testing/ Instructions: None Facility/Home Care Agency: NONE Pending Results: None No future appointments. Discharge Plan Medication List START taking these medications Brilinta 90 MG tablet Generic drug: ticagrelor Take 1 tablet (90 mg) by mouth 2 times daily for 726 doses. Notes to patient: Next dose due tonight 05/04, before bed. pantoprazole 20 MG EC tablet Commonly known as: Protonix Take 1 tablet (20 mg) by mouth every morning (before breakfast). Do not crush, chew, or split. Notes to patient: Next dose due tomorrow 05/05, in the morning. rosuvastatin 40 MG tablet Commonly known as: Crestor Take 1 tablet (40 mg) by mouth Nightly. Notes to patient: Next dose due tonight 05/04, before bed. CONTINUE taking these medications amLODIPine 10 MG tablet Commonly known as: Norvasc Notes to patient: Next dose due tomorrow 05/05, in the morning. aspirin 81 MG EC tablet Notes to patient: Next dose due tomorrow 05/05, in the morning. busPIRone 15 MG tablet Commonly known as: Buspar Notes to patient: Next dose due tonight 05/04, before bed. DULoxetine [address] capsule Commonly known as: Cymbalta Notes to patient: Next dose due tomorrow 05/05, in the morning. levothyroxine 50 MCG tablet Commonly known as: Synthroid, Levoxyl Notes to patient: Next dose due tomorrow 05/05, in the morning. metoprolol tartrate 25 MG tablet Commonly known as: Lopressor Notes to patient: Next dose due tonight 05/04, before bed. nitroglycerin 0.4 MG SL tablet Commonly known as: Nitrostat Notes to patient: As needed, for chest pain. spironolactone 25 MG tablet Commonly known as: Aldactone Notes to patient: Next dose due tomorrow 05/05, in the morning. STOP taking these medications clopidogrel 75 MG tablet Commonly known as: Plavix isosorbide dinitrate 40 MG ER capsule Commonly known as: Dilatrate-SR pravastatin 80 MG tablet Commonly known as: Pravachol Where to Get Your Medications These medications were sent to [facility] [address] [place] [address] Hours: Wednesday to Wednesday 10 am to 6 pm Brilinta 90 MG tablet pantoprazole 20 MG EC tablet rosuvastatin 40 MG tablet Objective: Physical Exam: Vitals: BP 120/67 (BP Location: Left arm, Patient Position: Lying) Pulse 76 Temp 36.6 ?C (97.9 ?F) (Temporal) Resp 18 Ht 5' 1 (1.549 m) Wt 172 lb 9.9 oz (78.3 kg) SpO2 98% BMI 32.62 kg/m? Intake/Output Summary (Last 24 hours) at 05/04/2024 1313 Last data filed at 05/04/2024 0500 Gross per 24 hour Intake 0 ml Output -- Net 0 ml Admission weight: 167 lb 4.8 oz (75.9 kg) Last weight: Wt Readings from Last 1 Encounters: 05/04/24 172 lb 9.9 oz (78.3 kg) Body mass index is (more content not included)...[facility] 05-04-2024 Hospital course Narrative* Jeison Sheriff MD - 05/04/2024 1:13 PM EST Images from the original note were not included. [facility] [place] [facility] Cardiology Discharge Summary Name: Nissa Trotter Date of : 1955 Date of Admission: 05/02/2024 Date of Discharge: 05/04/2024 Discharge Attending: Jeison Sheriff MD Primary Care Provider: TERESA BOGGS Type of Admission: Observation Code Status: Full Code Reason for Admission Multivessel PCI Discharge Diagnoses: Multivessel CAD s/p multivessel PCI Remote CABG Previous heart cath w/ PCI Post-procedure troponin elevation HTN Hospital Course Nissa Trotter is a 68 y.o. female who presented to [facility] on 05/02 after a cardiac cath at [facility] for consideration of PCI. The patient underwent multivessel PCI on 05/02. The patient was transferred to CCU s/p multivessel PCI with vasovagal episode post-procedure. She had a repeat vasovagal episode requiring a phenylephrine stick and IV fluids. She developed a hematoma over the right groin insertion site. She stabilized and was observed. She is stable and appropriate for discharge at this time. Consultants: IP CONSULT TO CARDIAC REHAB IP CONSULT TO CARDIAC REHAB IP CONSULT TO CARDIAC REHAB IP WOUND CARE NURSE CONSULT TO EVAL Procedures: Transthoracic echocardiogram Percutaneous coronary intervention, left heart cath Last diet during hospitalization: Adult diet Regular Recommended at discharge: Same as above. Activity Up with assist Disposition: Home Condition at Discharge: good Followup Testing/ Instructions: None Facility/Home Care Agency: NONE Pending Results: None No future appointments. Discharge Plan Medication List START taking these medications Brilinta 90 MG tablet Generic drug: ticagrelor Take 1 tablet (90 mg) by mouth 2 times daily for 726 doses. Notes to patient: Next dose due tonight 05/04, before bed. pantoprazole 20 MG EC tablet Commonly known as: Protonix Take 1 tablet (20 mg) by mouth every morning (before breakfast). Do not crush, chew, or split. Notes to patient: Next dose due tomorrow 05/05, in the morning. rosuvastatin 40 MG tablet Commonly known as: Crestor Take 1 tablet (40 mg) by mouth Nightly. Notes to patient: Next dose due tonight 05/04, before bed. CONTINUE taking these medications amLODIPine 10 MG tablet Commonly known as: Norvasc Notes to patient: Next dose due tomorrow 05/05, in the morning. aspirin 81 MG EC tablet Notes to patient: Next dose due tomorrow 05/05, in the morning. busPIRone 15 MG tablet Commonly known as: Buspar Notes to patient: Next dose due tonight 05/04, before bed. DULoxetine [address] capsule Commonly known as: Cymbalta Notes to patient: Next dose due tomorrow 05/05, in the morning. levothyroxine 50 MCG tablet Commonly known as: Synthroid, Levoxyl Notes to patient: Next dose due tomorrow 05/05, in the morning. metoprolol tartrate 25 MG tablet Commonly known as: Lopressor Notes to patient: Next dose due tonight 05/04, before bed. nitroglycerin 0.4 MG SL tablet Commonly known as: Nitrostat Notes to patient: As needed, for chest pain. spironolactone 25 MG tablet Commonly known as: Aldactone Notes to patient: Next dose due tomorrow 05/05, in the morning. STOP taking these medications clopidogrel 75 MG tablet Commonly known as: Plavix isosorbide dinitrate 40 MG ER capsule Commonly known as: Dilatrate-SR pravastatin 80 MG tablet Commonly known as: Pravachol Where to Get Your Medications These medications were sent to [facility] [address] [place] [address] Hours: Wednesday to Wednesday 10 am to 6 pm Brilinta 90 MG tablet pantoprazole 20 MG EC tablet rosuvastatin 40 MG tablet Objective: Physical Exam: Vitals: BP 120/67 (BP Location: Left arm, Patient Position: Lying) Pulse 76 Temp 36.6 C (97.9 F) (Temporal) Resp 18 Ht 5' 1 (1.549 m) Wt 172 lb 9.9 oz (78.3 kg) SpO2 98% BMI 32.62 kg/m Intake/Output Summary (Last 24 hours) at 05/04/2024 1313 Last data filed at 05/04/2024 0500 Gross per 24 hour Intake 0 ml Output -- Net 0 ml Admission weight: 167 lb 4.8 oz (75.9 kg) Last weight: Wt Readings from Last 1 Encounters: 05/04/24 172 lb 9.9 oz (78.3 kg) Body mass index is 32.62 kg/m . BMI Classification: Obese (BMI 30.0-39.9) Laboratory Tests: NT-ProBNP level; last two recorded values, may include those outside this admission. Lab Results Component Value Date BNP 856 (H) 05/02/2024 Lab Results Component Value Date WBC 12.5 (H) 05/04/2024 HGB 12.1 05/04/2024 HCT 35.0 05/04/2024 MCV 91.6 05/04/2024 PLT 214 05/04/2024 Lab Results Component Value Date GLUCOSE 126 (H) 05/04/2024 CALCIUM 9.1 05/04/2024 NA 132 (L) 05/04/2024 K 4.2 05/04/2024 CO2 18 (L) 05/04/2024 CL 103 05/04/2024 BUN 13 05/04/2024 CREATININE 0.79 05/04/2024 Lab Results Component Value Date ALT 26 05/04/2024 AST 116 (H) 05/04/2024 ALKPHOS 56 05/04/2024 BILITOT 1.4 (H) 05/04/2024 National Registry/ Accreditation Requirements/ Other DC information. @[email or web address]@ Total time Discharge activity. [x]30 min or less []Greater than 30 min Jeison Sheriff MD Parts of this note may be generated using a voice recognition software program. 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 This note was electronically signed by Jeison Sheriff MD on 05/04/24 Cosigned by David Patel MD at 05/04/2024 2:12 PM EST Associated attestation - David Patel MD - 05/04/2024 2:12 PM EST I personally saw and evaluated this patient prior to discharge. I examined the patient, reviewed the meds and the follow-up information. I was personally involved in, and initiated the medical therapy to be used at discharge and the follow-up to be done. David Patel MD, PhD Advanced Heart Failure Cardiology [facility]. [facility] [place] 2:12 PM 05/04/24 documented in this [facility]11-07-2024 Miscellaneous Notes* Individualized Overall Plan of Care Note - ELANA Jason CNP - 05/04/2024 11:28 AM EST Discharge instructions, medications, restrictions, activity, diet, cardiac rehab and follow-up reviewed and patient verbalized understanding. She will utilize [facility] for her home-going Rx and was instructed to notify office with any difficulty obtaining Rx or if this becomes a financial burden. She was also informed to notify the office in the future if anyone asks her to hold or stop either ASA or ticagrelor (Brilinta) 90mg BID. * Care Coordination - Skye Real RN - 05/03/2024 3:34 PM EST Care Managment Initial Assessment Date: 05/03/2024 Patient Name: Nissa Trotter : 1955 Patient Information Source of Information: Patient Cognition/Language: WFL - Within Functional Limits Permission given to speak with patient customer support representative/caregiver as indicated: Yes Confirmation of Payer with patient/family: Yes Payer Name: [facility] : No Confirmation of Primary Care Physician: Confirmed PCP Name: Dr. Boggs Seen in last 2 years?: Yes Primary Caregiver: Self If assistance needed, confirmed caregiver ready, willing and able to care for patient at discharge: Confirmed with: Living Arrangements Current Residence: Apartment Number of Floors 1 Number of Entry Steps: 5 or more (17 in front, 10 in back) Bed/Bath Levels: Both first floor Facility: Facility Name: Plan to Return: Lives with: Alone Support Systems: Children, Family members, Denominational/nathaniel community Activities of Daily Living Ambulation: Independent Bathing/Dressing: Independent Elimination/Continence/Toileting: Independent Feeding: Independent Who Assists with Activities of Daily Living: Instrumental Activities of Daily Living Prescription Coverage: Yes Pharmacy Used: [facility] Medication Management: Mail order Who assists with medication securing and setup?: mailed to house Transportation/Shopping: Assistance Provider Transportation/Shopping Assistance Provider Name: walks or daughter Transportation Mode: Car Needs Assistance with Transportation at Discharge: No Meal Preparation: Independent Laundry/Cleaning: Independent Finances/Bill Paying: Independent Communication: Independent Types of Care Services/Equipment Utilized Care Services: Dialysis Type: Durable Medical Equipment: Cane, CPap DME Provider: Connie Patient's Goal/Discharge Plan Patient expects to be discharged to: home Discharge Planning Actions: No needs identified Patient's Choice Rights and [employer] and Collaborative Relationships Disclosed as Indicated for Post-Acute Care: Interdisciplinary Team Engagement: Social Work Referral for: Additional Information: Patient admitted to [facility] ICU s/p multivessel PCI. Spoke with patient at bedside, introduced self and role. Patient from home with alone, is independent, has PCP and prescription coverage, will have a ride home and denies discharge needs. Skye Real RN * Care Plan - Rebecca Ramírez RN - 05/02/2024 11:11 PM EST Problem: Pain - Adult Goal: Verbalizes/displays adequate comfort level or baseline comfort level Outcome: Progressing Problem: Safety - Adult Goal: Free from fall injury Outcome: Progressing Problem: Discharge Planning Goal: Discharge to home or other facility with appropriate resources Outcome: Progressing Problem: Chronic Conditions and Co-morbidities Goal: Patient's chronic conditions and co-morbidity symptoms are monitored and maintained or improved Outcome: Progressing Problem: Knowledge Deficit Goal: Patient/family/caregiver demonstrates understanding of disease process, treatment plan, medications, and discharge instructions Outcome: Progressing Problem: Potential for Compromised Skin Integrity Goal: Skin Integrity is Maintained or Improved Outcome: Progressing Goal: Nutritional status is improving Outcome: Progressing Problem: Urinary Incontinence Goal: Perineal skin integrity is maintained or improved Outcome: Progressing Problem: Potential for Falls Goal: I will remain free of falls Outcome: Progressing Problem: Discharge Barriers Goal: My discharge needs are met Outcome: Progressing * Post-Procedure Note - Madeleine Mcnair MD - 05/02/2024 3:49 PM EST [facility] Cardiac Catheterization Laboratory Post-Procedure Note Patient Name: Nissa Trotter Date: 05/02/2024, 3:49 PM Pre-Operative Diagnosis: Multivessel CAD Post-Operative Diagnosis: Multivessel CAD Procedure: [facility] Coronary Angiography IVUS PCI Findings: Successful PCI of the distal Lcx to OM1 with DESx2 Successful IVUS guided PCI of the Left Main to proximal LAD Successful IVUS guided PCI of the mid LAD Complications: None Plan: Risk factor modifications with lifestyle and diet DAPT with ASA (lifelong) and Brilinta (at least one year). High intensity statin. GDMT for CAD. Cardiac rehabilitation. Physician Signature: Madeleine Mcnair MD * Care Coordination - Ilana Armstrong RN - 05/02/2024 2:02 PM EST Care Management Progress Note CM attempted IA. 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 CM will attempt again as able. Discharge plan: TBD. Awaiting clinical stability and medical clearance. Length of Stay (Days): 0 GMLOS: No GMLOS Documented * Pre-Sedation Documentation - Braeden Mckeon MD - 05/02/2024 1:00 PM EST Sedation Plan ASA class 3 - patient with severe systemic disease Mallampati class: II - soft palate, uvula, fauces visible. Sedation plan: local anesthesia and moderate (conscious sedation) Risks, benefits, and alternatives discussed with patient. Plan discussed with attending. Immediate reassessment prior to sedation: Patient's status reviewed and vital signs assessed; acceptable to perform procedure and proceed to administer sedation as planned. * Care Plan - Ketty Trotter RN - 05/02/2024 4:48 AM EST Problem: Pain - Adult Goal: Verbalizes/displays adequate comfort level or baseline comfort level Outcome: Progressing Problem: Safety - Adult Goal: Free from fall injury Outcome: Progressing documented in this [facility]11-07-2024 Note* Individualized Overall Plan of Care Note - ELANA Jason CNP - 05/04/2024 11:28 AM EST Discharge instructions, medications, restrictions, activity, diet, cardiac rehab and follow-up reviewed and patient verbalized understanding. She will utilize [id number] for her home-going Rx and was instructed to notify office with any difficulty obtaining Rx or if this becomes a financial burden. She was also informed to notify the office in the future if anyone asks her to hold or stop either ASA or ticagrelor (Brilinta) 90mg BID. [id number]* Individualized Overall Plan of Care Note - ELANA Jason CNP - 05/04/2024 11:28 AM EST Discharge instructions, medications, restrictions, activity, diet, cardiac rehab and follow-up reviewed and patient verbalized understanding. She will utilize [facility] for her home-going Rx and was instructed to notify office with any difficulty obtaining Rx or if this becomes a financial burden. She was also informed to notify the office in the future if anyone asks her to hold or stop either ASA or ticagrelor (Brilinta) 90mg BID. [id number] History of Present illness Narrative* Wanda Hernandez - 05/04/2024 9:53 AM EST Nutrition rescreen completed. Chart reviewed. Patient to be monitored and followed by the diet nuclear worker technician. Erika Hernandez DT * Jeison Sheriff MD - 05/04/2024 6:47 AM EST Images from the original note were not included. [facility] Heart [facility] Vascular [facility] CCU PROGRESS NOTE Patient Name: Nissa Trotter : 1955 Subjective: Hospital Course: This 68-year-old female with a past medical history significant for CAD s/p CABG [2007], previous cardiac catheterization with PCI in , ELODIA, HLD, HTN who presented to [facility] on05/02 after a cardiac cath at [facility] for consideration of PCI. The patient was transferredto CCU s/p multivessel PCI with vasovagal episode post-procedure. Interval History: This morning, the patient is resting in bed in no acute distress. She denies chest pain/pressure, palpitations, shortness of breath, or any other acute concerns at this time. Review of Systems: Review of Systems Constitutional: Negative for chills and fever. Respiratory: Negative for shortness of breath. Cardiovascular: Negative for chest pain. Gastrointestinal: Negative for abdominal pain. Neurological: Negative for headaches. Inpatient Medications: Scheduled Meds:amLODIPine, 10 mg, Oral, Daily aspirin, 81 mg, Oral, Daily busPIRone, 15 mg, Oral, TID DULoxetine, 60 mg, Oral, Daily influenza, 0.5 mL, IntraMUSCular, Once [Held by provider] isosorbide mononitrate ER, 30 mg, Oral, BID levothyroxine, 50 mcg, Oral, qAM AC metoprolol tartrate, 25 mg, Oral, BID pantoprazole, 20 mg, Oral, Nightly Or pantoprazole (ProtoNix) 40 mg in sodium chloride (PF) 0.9 % 10 mL injection, 40 mg, IntraVENous, Nightly rosuvastatin, 40 mg, Oral, Nightly spironolactone, 25 mg, Oral, Daily ticagrelor, 90 mg, Oral, BID Continuous Infusions:heparin, 5-30 Units/kg/hr, Last Rate: 12 Units/kg/hr (05/02/24 0710) PRN Meds used in the last 24hr: none. Objective: Physical Examination: BP 126/59 Pulse 78 Temp 36.7 C (98.1 F) (Temporal) Resp 16 Ht 5' 1 (1.549 m) Wt 172 lb 9.9 oz (78.3 kg) SpO2 99% BMI 32.62 kg/m Intake/Output Summary (Last 24 hours) at 05/04/2024 0647 Last data filed at 05/04/2024 0500 Gross per 24 hour Intake 0 ml Output -- Net 0 ml Physical Exam Constitutional: General: Nissa is not in acute distress. Cardiovascular: Rate and Rhythm: Normal rate and regular rhythm. Pulses: Normal pulses. Heart sounds: Normal heart sounds. No murmur heard. No friction rub. No gallop. Pulmonary: Effort: Pulmonary effort is normal. No respiratory distress. Breath sounds: Normal breath sounds. No wheezing. Skin: General: Skin is warm and dry. Findings: Bruising (right groin at insertion site.) present. Neurological: Mental Status: Nissa is alert. Pertinent Labs: BMP: Lab Results Component Value Date NA 132 (L) 05/04/2024 K 4.2 05/04/2024 CL 103 05/04/2024 CO2 18 (L) 05/04/2024 BUN 13 05/04/2024 CREATININE 0.79 05/04/2024 GLUCOSE 126 (H) 05/04/2024 CALCIUM 9.1 05/04/2024 MG 2.2 05/02/2024 CBC: Lab Results Component Value Date WBC 12.5 (H) 05/04/2024 HGB 12.1 05/04/2024 HCT 35.0 05/04/2024 MCV 91.6 05/04/2024 PLT 214 05/04/2024 Cardiac profile: CK Date Value Ref Range Status 05/03/2024 503 (H) 30 - 170 U/L Final 05/02/2024 74 30 - 170 U/L Final CKMB Date Value Ref Range Status 05/03/2024 49.0 (H) 0.0 - 4.4 ng/mL Final 05/02/2024 3.9 0.0 - 4.4 ng/mL Final TROPONIN I Date Value Ref Range Status 05/03/2024 11.800 (HH) <0.034 ng/mL Final 05/02/2024 2.110 (HH) <0.034 ng/mL Final 05/02/2024 0.314 (HH) <0.034 ng/mL Final 05/02/2024 <0.012 <0.034 ng/mL Final 05/02/2024 <0.012 <0.034 ng/mL Final 05/02/2024 <0.012 <0.034 ng/mL Final Coagulation: No results found for: INR, PTT Lipid panel: Lab Results Component Value Date CHOL 201 (H) 05/02/2024 HDL 64 (H) 05/02/2024 TRIG 280 (H) 05/02/2024 Other: Lab Results Component Value Date HGBA1C 5.5 05/02/2024 TSH 5.341 (H) 05/02/2024 Chest Imaging: CXR: === 05/02/24 === XR CHEST 1 VIEW - Impression - No acute cardiopulmonary disease. Report Dictated on Electronically Signed By: Robson Simmons MD Electronically Signed Date/Time: 05/02/2024 7:49 AM EST Cardiac Studies: Telemetry findings reviewed: no significant findings. ECG: Encounter Date: 05/02/24 ECG 12 lead Result Value Heart Rate 85 QRSD Interval 102 QT Interval 347 QTC Interval 412 P Altair 52 QRS Altair -6 T Wave Altair 62 NM Interval 129 Impression Sinus rhythm Probable left atrial enlargement Nonspecific T abnormalities, lateral leads Minimal ST elevation, inferior leads Echo: 05/02/24 TRANSTHORACIC ECHOCARDIOGRAM (TTE) COMPLETE (CONTRAST/BUBBLE/3D PRN) 05/02/2024 1:02 PM (Final) Interpretation Summary Left Ventricle: Left ventricle size is normal. Normal wall thickness. Normal left ventricular systolic function. EF by 2D Simpsons Biplane is 59%. Global longitudinal strain is normal with a value of-16.8%. See diagram for wall motion findings. Very small area of basal inferior and basal inferolateral wall akinesis, with some restriction of the PML. Visual assessment of regional WMA correlates with strain pattern. Right Ventricle: Right ventricle size is normal. Low normal systolic function. Mitral Valve: Valve structure is normal. Mild to moderate (1-2+) regurgitation with a posterior directed jet. Mild restricted opening PML. Signed by: Nusrat Gant on 05/02/2024 1:02 PM Cath Report: 05/02/24 CARDIAC PROCEDURE 05/02/2024 5:30 PM (Final) Conclusion Severe multivessel coronary artery disease with escalating angina due to severe stenosis of LMCA, proximal-midLAD, and proximal-mid LCx into OM2. Prior VARGAS-LAD and SVG-OM2 grafts are both chronically occluded. Patent [place] dominant RCA with mild disease. Successful IVUS guided PCI of 90% ostial LM into the diffusely diseased proximal-mid LAD with a 3.0x38 mm Xience JATIN (LM into LAD), further post-dilated proximally in the LMCA with a 4.0mm NC balloon. Additional 2.75 x 18 mm Xience JATIN placed to the mid LAD with a short region of stent overlap. Successful PCI of the proximal-mid LCX into OM2 with deployment of 2 overlapped Xience JATIN (3.0x23mm proximal and 2.5x38 mm midLCx into OM2). BERTRAND 2 residual flow into the OM2 beyond site of prior SVG insertion. No angina or ST changes at end of case. RCA is a large vessel with widely patent previously placed stents with mild diffuse disease. SVG to OM2 graft is noted to have 100% chronic ostial occlusion at the origin of the graft. VARGAS to LAD was not injected as it was known to be atretic from previous angiograms. Low LVEDP, 1 mmHg. No aortic stenosis. Transient hypotension and hemodynamic instability during complex PCI related to low flow state and compromised flow, stabilized with IV norepinephrine pushes and completion of complex PCI. Stable hemodynamics without angina or ischemic ST changes at completion of case. Signed by: Braeden Mckeon on 05/02/2024 5:30 PM Assessment/Plan Multivessel CAD s/p multivessel PCI [05/02/2024] Remote CABG [2007], previous cardiac cath w/ PCI [2015,] Post-procedure troponin elevation -Patient presents from [place] for PCI evaluation s/p heart cath. -Multivessel PCI: procedure report above. Plan: -Continue on DAPT: aspirin 81 mg daily, ticagrelor 90 mg twice daily. -Continue therapy with high intensity statin: Rosuvastatin 40 mg nightly. -Continue metoprolol tartrate 25 mg twice daily. -Continue spironolactone 25 mg daily. -Patient is OK for discharge home today. HTN -Continue amlodipine 10 mg daily. - Goals of Care: Full Code - DVT Prophylaxis: SCDs - GI Prophylaxis: Protonix daily - Diet: Adult diet regular - BMI Classification: Body mass index is 32.62 kg/m . - Disposition: Discharge to home later today. Cosigned by David Patel MD at 05/04/2024 2:12 PM EST Associated attestation - David Patel MD - 05/04/2024 2:12 PM EST I, Dr. David Patel, saw and evaluated the patient on 05/04/24 in T1-110/T1-110 A. I personally obtained the forbes and critical portions of the history and physical exam. I reviewed the labs, imaging studies, and electronic medical record. I reviewed the [employer] Sales Representative's documentation, and discussed the patient with the [employer] Sales Representative. I agree with the [employer] Sales Representative's medical decision making and have edited the note to reflect my clinical findings and my assessment and plan. In summary, Ms. Trotter is a 68-year-old woman with a history of coronary artery disease s/p remote CABG, PCI in 2015 and 2019, ELODIA, hypertension, hyperlipidemia, who presents to [facility] with a chief complaint of chest pain. She underwent left heart catheterization, was found to have MVDfor which she underwent multivessel PCI to the left main to proximal LAD, mid LAD, and OM. Her course was complicated by hypotension that resolved prior to even arriving in the CCU. TTE showed preserved LV function with some basal inferior wall akinesis. On exam today, she has a hematoma in her right groin that appears quite stable and soft. My overall assessment is that Ms. Trotter presented with ACS, was found to have MVD followed by multivessel PCI, and is stable now. She is on dual antiplatelet therapy, high intensity statin therapy, and today we will discharge her home. David Patel MD, PhD Advanced Heart Failure Cardiology [facility]. [facility] [place] 2:02 PM 05/04/24 * Stacey Darrius Mode, LITHOGRAPHIC ARTIST - [employer] - 05/03/2024 9:40 AM EST [facility] Interventional Cardiology Progress Note CC: s/p multivessel PCI by Dr. Mckeon on 05/02 HPI / Interval History: Ms. Trotter had PCI of the ostial left main to prox LAD, PCI of the mid LAD, and PCI of prox-mid LCxto OM1 with JATIN x 2. Right femoral access. EF is 59% This morning she is up in the bathroom doing ADLs. She states she is feeling much better. She denies any chest pain, dyspnea, palpitations, dizziness, bleeding, syncope. Right femoral site is soft, ecchymotic without bleeding or bruit. Assessment/Plan Multivessel CAD, s/p PCI of LMCA into prox-mid LAD with JATIN, and prox-mid LCx into OM2 with 2 overlapped JATIN - Stable. Denies chest pain. EKG stable this am. Right femoral site is soft, no bleeding, no bruit.Continue aspirin, brilinta without interruption for at least 1 year. Continue rosuvastatin 40 mg, lopressor. Recommend cardiac rehab as outpatient. Follow up with [facility]. Educated on taking aspirin and brilinta without any interruption and advised cardiac rehab and follow up. She is agreeable and understands. Reviewed care of right femoral site. Discussed with Dr. Mckeon Medications: amLODIPine, 10 mg, Oral, Daily aspirin, 81 mg, Oral, Daily busPIRone, 15 mg, Oral, TID DULoxetine, 60 mg, Oral, Daily influenza, 0.5 mL, IntraMUSCular, Once [Held by provider] isosorbide mononitrate ER, 30 mg, Oral, BID levothyroxine, 50 mcg, Oral, qAM AC metoprolol tartrate, 25 mg, Oral, BID pantoprazole, 20 mg, Oral, Nightly Or pantoprazole (ProtoNix) 40 mg in sodium chloride (PF) 0.9 % 10 mL injection, 40 mg, IntraVENous, Nightly rosuvastatin, 40 mg, Oral, Nightly spironolactone, 25 mg, Oral, Daily ticagrelor, 90 mg, Oral, BID Infusion Medications: heparin, 5-30 Units/kg/hr, Last Rate: 12 Units/kg/hr (05/02/24 0710) norepinephrine in sodium chloride 0.9 %, 2-50 mcg/min Physical Examination: Vitals: 05/03/24 0635 05/03/24 0700 05/03/24 0730 05/03/24 0800 BP: 132/66 136/72 141/65 145/64 BP Location: Patient Position: Pulse: 78 78 69 76 Resp: 16 17 14 16 Temp: TempSrc: SpO2: 98% 99% 97% 100% Weight: Height: Intake/Output Summary (Last 24 hours) at 05/03/2024 0940 Last data filed at 05/03/2024 0600 Gross per 24 hour Intake 130 ml Output 1205 ml Net -1075 ml Patient Vitals for the past 168 hrs: Weight Weight Method 05/03/24 0400 171 lb 8.3 oz (77.8 kg) Bed scale 05/02/24 1218 167 lb (75.8 kg) -- 05/02/24 0354 167 lb 4.8 oz (75.9 kg) Standing scale Physical Exam Vitals reviewed. Constitutional: General: She is not in acute distress. Appearance: Normal appearance. She is not diaphoretic. HENT: Head: Normocephalic. Mouth/Throat: Pharynx: No oropharyngeal exudate. Eyes: General: Right eye: No discharge. Left eye: No discharge. Extraocular Movements: Extraocular movements intact. Cardiovascular: Rate and Rhythm: Normal rate and regular rhythm. Pulses: Normal pulses. Heart sounds: Normal heart sounds. No murmur heard. No gallop. Comments: Right femoral site soft with ecchymosis. No bleeding. No bruit. No swelling. No pain. Pulmonary: Effort: Pulmonary effort is normal. No respiratory distress. Breath sounds: Normal breath sounds. Abdominal: General: Bowel sounds are normal. There is no distension. Palpations: Abdomen is soft. Tenderness: There is no abdominal tenderness. Musculoskeletal: General: Normal range of motion. Cervical back: Normal range of motion and neck supple. Right lower leg: No edema. Left lower leg: No edema. Skin: General: Skin is warm and dry. Capillary Refill: Capillary refill takes less than 2 seconds. Neurological: General: No focal deficit present. Mental Status: She is alert and oriented to person, place, and time. Cranial Nerves: No cranial nerve deficit. Psychiatric: Mood and Affect: Mood normal. Laboratory Tests: Recent Labs 05/02/2433405/02/24200005/03/24427 NA 138 137 135 K 3.6 3.8 4.9 CL 106 107 108* CO2 17* 17* 21* BUN 15 14 15 CREATININE 0.77 0.93 0.81 Recent Labs 05/02/24 0335 05/02/24 1735 05/02/24200705/03/24 0315 WBC 8.6 10.0 -- 11.9* HGB 13.6 11.0* 12.4 11.6* HCT 39.4 31.7* 36.3 33.6* MCV 90.6 90.6 -- 91.8 PLT 250 237 -- 219 Recent Labs 05/02/24 0727 05/02/24 1000 05/02/24200005/02/24 2300 05/03/248 CKTOTAL -- -- 74 -- 503* CKMB -- -- 3.9 -- 49.0* TROPONINI <0.012 <0.012 0.314* 2.110* 11.800* Recent Labs 05/02/24334 BNP 856* Recent Labs 05/02/24334 TRIG 280* HDL 64* LDLCALC 81 CHOL 201* No results found for: LDLCHOLESTER Lab Results Component Value Date TSH 5.341 (H) 05/02/2024 EF BP Date Value Ref Range Status 05/02/2024 59 55 - 100 % Final 05/02/24 TRANSTHORACIC ECHOCARDIOGRAM (TTE) COMPLETE (CONTRAST/BUBBLE/3D PRN) 05/02/2024 1:02 PM (Final) Interpretation Summary Left Ventricle: Left ventricle size is normal. Normal wall thickness. Normal left ventricular systolic function. EF by 2D Simpsons Biplane is 59%. Global longitudinal strain is normal with a value of-16.8%. See diagram for wall motion findings. Very small area of basal inferior and basal inferolateral wall akinesis, with some restriction of the PML. Visual assessment of regional WMA correlates with strain pattern. Right Ventricle: Right ventricle size is normal. Low normal systolic function. Mitral Valve: Valve structure is normal. Mild to moderate (1-2+) regurgitation with a posterior directed jet. Mild restricted opening PML. Signed by: Nusrat Gant on 05/02/2024 1:02 PM Other reports reviewed: Multivessel PCI 05/02/24: Conclusion Severe multivessel coronary artery disease with escalating angina due to severe stenosis of LMCA, proximal-midLAD, and proximal-mid LCx into OM2. Prior VARGAS-LAD and SVG-OM2 grafts are both chronically occluded. Patent [place] dominant RCA with mild disease. Successful IVUS guided PCI of 90% ostial LM into the diffusely diseased proximal-mid LAD with a 3.0x38 mm Xience JATIN (LM into LAD), further post-dilated proximally in the LMCA with a 4.0mm NC balloon. Additional 2.75 x 18 mm Xience JATIN placed to the mid LAD with a short region of stent overlap. Successful PCI of the proximal-mid LCX into OM2 with deployment of 2 overlapped Xience JATIN (3.0x23mm proximal and 2.5x38 mm midLCx into OM2). BERTRAND 2 residual flow into the OM2 beyond site of prior SVG insertion. No angina or ST changes at end of case. RCA is a large vessel with widely patent previously placed stents with mild diffuse disease. SVG to OM2 graft is noted to have 100% chronic ostial occlusion at the origin of the graft. VARGAS to LAD was not injected as it was known to be atretic from previous angiograms. Low LVEDP, 1 mmHg. No aortic stenosis. Transient hypotension and hemodynamic instability during complex PCI related to low flow state and compromised flow, stabilized with IV norepinephrine pushes and completion of complex PCI. Stable hemodynamics without angina or ischemic ST changes at completion of case. Recommendations Patient management should include: Continued aggressive risk factor modification, optimal medical management, cardiac rehabillitation and drug- eluting stent maintenance. Continue DAPT long-term. Switch to high intensity statin therapy. Long-term follow-up with [facility]. Cardiac Tests: ECG: IMPRESSION: Sinus rhythm Atrial premature complex Low voltage, extremity leads Telemetry findings reviewed: SR 70 with PVC EF BP Date Value Ref Range Status 05/02/2024 59 55 - 100 % Final ELANA Neumann CNP Date Of Service 05/03/2024 * Jeison Sheriff MD - 05/03/2024 7:15 AM EST Images from the original note were not included. [facility] [place] [facility] CCU PROGRESS NOTE Patient Name: Nissa Trotter : 1955 Subjective: Hospital Course: This 68-year-old female with a past medical history significant for CAD s/p CABG [2007], previous cardiac catheterization with PCI in , ELODIA, HLD, HTN who presented to [facility] on05/02 after a cardiac cath at [facility] for consideration of PCI. The patient was transferredto CCU s/p multivessel PCI with vasovagal episode post-procedure. Interval History: Overnight, the patient with vasovagal symptoms that resolved on their own. This morning, the patient is resting in bed in no acute distress. She denies chest pain/pressure, palpitations, shortness of breath, or any other acute concerns at this time. Review of Systems: Review of Systems Constitutional: Negative for chills and fever. Respiratory: Negative for shortness of breath. Cardiovascular: Negative for chest pain and palpitations. Gastrointestinal: Negative for abdominal pain. Neurological: Negative for headaches. Inpatient Medications: Scheduled Meds:amLODIPine, 10 mg, Oral, Daily aspirin, 81 mg, Oral, Daily busPIRone, 15 mg, Oral, TID DULoxetine, 60 mg, Oral, Daily influenza, 0.5 mL, IntraMUSCular, Once [Held by provider] isosorbide mononitrate ER, 30 mg, Oral, BID levothyroxine, 50 mcg, Oral, qAM AC metoprolol tartrate, 25 mg, Oral, BID pantoprazole, 20 mg, Oral, Nightly Or pantoprazole (ProtoNix) 40 mg in sodium chloride (PF) 0.9 % 10 mL injection, 40 mg, IntraVENous, Nightly rosuvastatin, 40 mg, Oral, Nightly spironolactone, 25 mg, Oral, Daily ticagrelor, 90 mg, Oral, BID Continuous Infusions:heparin, 5-30 Units/kg/hr, Last Rate: 12 Units/kg/hr (05/02/24 0710) norepinephrine in sodium chloride 0.9 %, 2-50 mcg/min PRN Meds used in the last 24hr: Acetaminophen 650 mg Nitroglycerin SL 0.4 mg Objective: Physical Examination: BP 136/72 Pulse 78 Temp 36.9 C (98.5 F) (Oral) Resp 17 Ht 5' 1 (1.549 m) Wt 171 lb 8.3 oz (77.8 kg) SpO2 99% BMI 32.41 kg/m Intake/Output Summary (Last 24 hours) at 05/03/2024 0716 Last data filed at 05/03/2024 0600 Gross per 24 hour Intake 130 ml Output 1205 ml Net -1075 ml Physical Exam Constitutional: General: She is not in acute distress. Cardiovascular: Rate and Rhythm: Normal rate and regular rhythm. Heart sounds: No murmur heard. No friction rub. No gallop. Pulmonary: Effort: Pulmonary effort is normal. No respiratory distress. Breath sounds: Normal breath sounds. Skin: General: Skin is warm and dry. Findings: Bruising (right groin access site) present. Neurological: Mental Status: She is alert. Pertinent Labs: BMP: Lab Results Component Value Date NA 135 05/03/2024 K 4.9 05/03/2024 CL 108 (H) 05/03/2024 CO2 21 (L) 05/03/2024 BUN 15 05/03/2024 CREATININE 0.81 05/03/2024 GLUCOSE 119 (H) 05/03/2024 CALCIUM 9.2 05/03/2024 MG 2.2 05/02/2024 CBC: Lab Results Component Value Date WBC 11.9 (H) 05/03/2024 HGB 11.6 (L) 05/03/2024 HCT 33.6 (L) 05/03/2024 MCV 91.8 05/03/2024 PLT 219 05/03/2024 Cardiac profile: CK Date Value Ref Range Status 05/03/2024 503 (H) 30 - 170 U/L Final 05/02/2024 74 30 - 170 U/L Final CKMB Date Value Ref Range Status 05/03/2024 49.0 (H) 0.0 - 4.4 ng/mL Final 05/02/2024 3.9 0.0 - 4.4 ng/mL Final TROPONIN I Date Value Ref Range Status 05/03/2024 11.800 (HH) <0.034 ng/mL Final 05/02/2024 2.110 (HH) <0.034 ng/mL Final 05/02/2024 0.314 (HH) <0.034 ng/mL Final 05/02/2024 <0.012 <0.034 ng/mL Final 05/02/2024 <0.012 <0.034 ng/mL Final 05/02/2024 <0.012 <0.034 ng/mL Final Coagulation: No results found for: INR, PTT Lipid panel: Lab Results Component Value Date CHOL 201 (H) 05/02/2024 HDL 64 (H) 05/02/2024 TRIG 280 (H) 05/02/2024 Other: Lab Results Component Value Date HGBA1C 5.5 05/02/2024 TSH 5.341 (H) 05/02/2024 Chest Imaging: CXR: === 05/02/24 === XR CHEST 1 VIEW - Impression - No acute cardiopulmonary disease. Report Dictated on Electronically Signed By: Robson Simmons MD Electronically Signed Date/Time: 05/02/2024 7:49 AM EST Cardiac Studies: Telemetry findings reviewed: no significant findings. ECG: Encounter Date: 05/02/24 ECG 12 lead Result Value Heart Rate 66 QRSD Interval 97 QT Interval 407 QTC Interval 423 P Altair 55 QRS Altair -7 T Wave Altair 46 NM Interval 148 Impression Sinus rhythm Atrial premature complex Low voltage, extremity leads Echo: 05/02/24 TRANSTHORACIC ECHOCARDIOGRAM (TTE) COMPLETE (CONTRAST/BUBBLE/3D PRN) 05/02/2024 1:02 PM (Final) Interpretation Summary Left Ventricle: Left ventricle size is normal. Normal wall thickness. Normal left ventricular systolic function. EF by 2D Simpsons Biplane is 59%. Global longitudinal strain is normal with a value of-16.8%. See diagram for wall motion findings. Very small area of basal inferior and basal inferolateral wall akinesis, with some restriction of the PML. Visual assessment of regional WMA correlates with strain pattern. Right Ventricle: Right ventricle size is normal. Low normal systolic function. Mitral Valve: Valve structure is normal. Mild to moderate (1-2+) regurgitation with a posterior directed jet. Mild restricted opening PML. Signed by: Nusrat Gant on 05/02/2024 1:02 PM Cath Report: 05/02/24 CARDIAC PROCEDURE 05/02/2024 5:30 PM (Final) Conclusion Severe multivessel coronary artery disease with escalating angina due to severe stenosis of LMCA, proximal-midLAD, and proximal-mid LCx into OM2. Prior VARGAS-LAD and SVG-OM2 grafts are both chronically occluded. Patent [place] dominant RCA with mild disease. Successful IVUS guided PCI of 90% ostial LM into the diffusely diseased proximal-mid LAD with a 3.0x38 mm Xience JATIN (LM into LAD), further post-dilated proximally in the LMCA with a 4.0mm NC balloon. Additional 2.75 x 18 mm Xience JATIN placed to the mid LAD with a short region of stent overlap. Successful PCI of the proximal-mid LCX into OM2 with deployment of 2 overlapped Xience JATIN (3.0x23mm proximal and 2.5x38 mm midLCx into OM2). BERTRAND 2 residual flow into the OM2 beyond site of prior SVG insertion. No angina or ST changes at end of case. RCA is a large vessel with widely patent previously placed stents with mild diffuse disease. SVG to OM2 graft is noted to have 100% chronic ostial occlusion at the origin of the graft. VARGAS to LAD was not injected as it was known to be atretic from previous angiograms. Low LVEDP, 1 mmHg. No aortic stenosis. Transient hypotension and hemodynamic instability during complex PCI related to low flow state and compromised flow, stabilized with IV norepinephrine pushes and completion of complex PCI. Stable hemodynamics without angina or ischemic ST changes at completion of case. Signed by: Braeden Mckeon on 05/02/2024 5:30 PM Assessment/Plan Multivessel CAD s/p multivessel PCI [05/02/2024] Remote CABG [2007], previous cardiac cath w/ PCI [2015,] -Patient presents from [place] for PCI evaluation s/p heart cath. -Multivessel PCI: procedure report above. Plan: -Continue on DAPT: aspirin 81 mg daily, ticagrelor 90 mg twice daily. -Continue therapy with high intensity statin: Rosuvastatin 40 mg nightly. -Continue metoprolol tartrate 25 mg twice daily. -Continue spironolactone 25 mg daily. HTN -Continue amlodipine 10 mg daily. - Goals of Care: Full Code - DVT Prophylaxis: Heparin Drip - GI Prophylaxis: Protonix daily - Diet: Adult diet regular - BMI Classification: Obesity - Body mass index is 32.41 kg/m . - Disposition: Continue to monitor in CCU. Cosigned by David Patel MD at 05/03/2024 2:11 PM EST Associated attestation - David Patel MD - 05/03/2024 2:11 PM EST I, Dr. David Patel, saw and evaluated the patient on 05/03/24 in T1-110/T1-110 A. I personally obtained the forbes and critical portions of the history and physical exam. I reviewed the labs, imaging studies, and electronic medical record. I reviewed the [employer] Sales Representative's documentation, and discussed the patient with the Cordage Sales Representative. I agree with the Cordage Sales Representative's medical decision making and have edited the note to reflect my clinical findings and my assessment and plan. In summary, Ms. Trotter is a 68-year-old woman with a history of coronary artery disease status postremote CABG, PCI in 2015 and 2019, ELODIA, hypertension, hyperlipidemia, who presents to [facility] with a chief complaint of chest pain. She underwent left heart catheterization yesterday, wasfound to have multivessel coronary artery disease for which she underwent multivessel PCI to the left main to proximal LAD, mid LAD, and OM. Her course was complicated by hypotension that resolved prior to even arriving in the CCU. EKG this morning shows sinus rhythm with nonspecific T wave changes. Transthoracic echocardiogram showed preserved LV function with some basal inferior wall akinesis. On exam today, she has a hematoma in her right groin that appears quite stable and soft. My overall assessment is that Ms. Trotter presented with acute coronary syndrome, was found to have multivessel disease followed by multivessel PCI, and is stable now. She is on dual antiplatelet therapy, high intensity statin therapy, and today we will monitor her today and discharge her tomorrow if she is stable. David Patel MD, PhD Advanced Heart Failure Cardiology [facility]. Heart and Vascular [place] 2:11 PM 05/03/24 * Jeison Sheriff MD - 05/02/2024 4:04 PM EST Patient transferred to CCU s/p multivessel PCI. She denies chest pain/pressure, palpitations, shortness of breath, or any other acute concerns at this time. Vitals are stable. Will hold isosorbide mononitrate. Start on rosuvastatin 40 mg nightly. Continue on DAPT. Will monitor for any acute changes. documented in this [facility]11-07-2024 Hospital Discharge instructions* Discharge Instructions* Krysten Polanco APRN - CITY COMPTROLLER - 05/04/2024 9:22 AM EST Call your doctor with any medication questions or if you notice any side effects from your medications. If you are unable to fill your medications, please call your [employer] Exp[employer] Maker Hand immediately. The office number is located with your follow-up appointment information. Call your doctor if any redness or drainage from the wound site. DO NOT stop taking your medication unless instructed to do so by your doctor. Read the drug information material that were given to you and take medications as instructed by your doctor. New drugs may have been added to your medications, that will strengthen your heart and prevent re-stenosis of the coronary arteries. Drink 6 glasses of water (8 ounces each) over the next 24 hours. Water helps clear the dye from your body. No alcoholic beverages for 24 hours. It may interfere with healing. No exercise or sex for 5 days. Call 911 for chest pain, arm pain, nausea, neck pain, dizziness or unusual sweating AND your pain has not relieved with 2 doses of Nitroglycerin. Call your doctor if a lump at the puncture site enlarges or is larger than a golf ball. Call your doctor for severe pain to a light touch or for numbness, tingling or swelling of the affected foot. Call your doctor for increased area of bruising with discoloration extending down the leg. Call your doctor for coolness of the leg or foot. If bleeding occurs, lie down on a hard surface preferably the floor and apply pressure to the site for 20 minutes if BLEEDING continues CALL 911. OK to shower. No tub baths, swimming pools, or hot tub soaking for five days. Wash site daily with soap and water, dry gently. The healing wound should remain soft and dry. Keepthe site clean and dry. Cover with large band aid and change dressing for total of five days. No lifting, pushing or pulling more than 5 pounds for 5 days. No driving for three days. Limit your stair climbing for three days. GIVE PCI PACKET (FROM FORGING ENGINEER) TO PATIENT Give Coronary Artery Discharge Book. PLEASE CALL YOUR HEART DOCTOR IF YOU CANNOT GET YOUR MEDICATIONS. THE NUMBER IS LISTED WITH YOUR FOLLOW-UP APPOINTMENT. Procedure Sedation Instructions If you have received sedation: you must have someone drive you home You should not drive a car, operate machinery, drink alcohol or perform any activity that requires alertness for the rest of the day. The effects of the sedative should be gone by tomorrow. Blood work in 5-7 days, see orders * Discharge Instr - SHAMA* Tahmina Stockton RN - 05/04/2024 11:28 AM EST documented in this [facility]11-07-2024 Nurse Note* Noreen Hunt RN - 05/04/2024 7:18 AM EST Wound Care consulted for Pressure Injury Prevention. Pt's Lake= 20, pt is no longer at risk. Skin Care Precaution order set in place. Will continue to follow peripherally. Please voicera or secure chat message with any questions. Noreen Hunt RN [id number] Nurse Note* Noreen Hunt RN - 05/04/2024 7:18 AM EST Wound Care consulted for Pressure Injury Prevention. Pt's [place]= 20, pt is no longer at risk. Skin Care Precaution order set in place. Will continue to follow peripherally. Please voicera or secure chat message with any questions. Noreen Hunt RN documented in this [facility]11-06-2024 Note* Care Coordination - Skye Real RN - 05/03/2024 3:34 PM EST Care Managment Initial Assessment Date: 05/03/2024 Patient Name: Nissa Trotter : 1955 Patient Information Source of Information: Patient Cognition/Language: WFL - Within Functional Limits Permission given to speak with patient customer support representative/caregiver as indicated: Yes Confirmation of Payer with patient/family: Yes Payer Name: [facility] : No Confirmation of Primary Care Physician: Confirmed PCP Name: Dr. Boggs Seen in last 2 years?: Yes Primary Caregiver: Self If assistance needed, confirmed caregiver ready, willing and able to care for patient at discharge: Confirmed with: Living Arrangements Current Residence: Apartment Number of Floors 1 Number of Entry Steps: 5 or more (17 in front, 10 in back) Bed/Bath Levels: Both first floor Facility: Facility Name: Plan to Return: Lives with: Alone Support Systems: Children, Family members, Denominational/nathaniel community Activities of Daily Living Ambulation: Independent Bathing/Dressing: Independent Elimination/Continence/Toileting: Independent Feeding: Independent Who Assists with Activities of Daily Living: Instrumental Activities of Daily Living Prescription Coverage: Yes Pharmacy Used: [facility] Medication Management: Mail order Who assists with medication securing and setup?: mailed to house Transportation/Shopping: Assistance Provider Transportation/Shopping Assistance Provider Name: walks or daughter Transportation Mode: Car Needs Assistance with Transportation at Discharge: No Meal Preparation: Independent Laundry/Cleaning: Independent Finances/Bill Paying: Independent Communication: Independent Types of Care Services/Equipment Utilized Care Services: Dialysis Type: Durable Medical Equipment: Cane, CPap DME Provider: Connie Patient's Goal/Discharge Plan Patient expects to be discharged to: home Discharge Planning Actions: No needs identified Patient's Choice Rights and [employer] and Collaborative Relationships Disclosed as Indicated for Post-Acute Care: Interdisciplinary Team Engagement: Social Work Referral for: Additional Information: Patient admitted to [facility] ICU s/p multivessel PCI. Spoke with patient at bedside, introduced self and role. Patient from home with alone, is independent, has PCP and prescription coverage, will have a ride home and denies discharge needs. Skye Real RN [id number] Note* Care Coordination - Skye Real RN - 05/03/2024 3:34 PM EST Care Managment Initial Assessment Date: 05/03/2024 Patient Name: Nissa Trotter : 1955 Patient Information Source of Information: Patient Cognition/Language: WFL - Within Functional Limits Permission given to speak with patient customer support representative/caregiver as indicated: Yes Confirmation of Payer with patient/family: Yes Payer Name: [facility] [place]: No Confirmation of Primary Care Physician: Confirmed PCP Name: Dr. Boggs Seen in last 2 years?: Yes Primary Caregiver: Self If assistance needed, confirmed caregiver ready, willing and able to care for patient at discharge: Confirmed with: Living Arrangements Current Residence: Apartment Number of Floors 1 Number of Entry Steps: 5 or more (17 in front, 10 in back) Bed/Bath Levels: Both first floor Facility: Facility Name: Plan to Return: Lives with: Alone Support Systems: Children, Family members, Denominational/nathaniel community Activities of Daily Living Ambulation: Independent Bathing/Dressing: Independent Elimination/Continence/Toileting: Independent Feeding: Independent Who Assists with Activities of Daily Living: Instrumental Activities of Daily Living Prescription Coverage: Yes Pharmacy Used: [facility] Medication Management: Mail order Who assists with medication securing and setup?: mailed to house Transportation/Shopping: Assistance Provider Transportation/Shopping Assistance Provider Name: walks or daughter Transportation Mode: Car Needs Assistance with Transportation at Discharge: No Meal Preparation: Independent Laundry/Cleaning: Independent Finances/Bill Paying: Independent Communication: Independent Types of Care Services/Equipment Utilized Care Services: Dialysis Type: Durable Medical Equipment: Cane, CPap DME Provider: Connie Patient's Goal/Discharge Plan Patient expects to be discharged to: home Discharge Planning Actions: No needs identified Patient's Choice Rights and [employer] and Collaborative Relationships Disclosed as Indicated for Post-Acute Care: Interdisciplinary Team Engagement: Social Work Referral for: Additional Information: Patient admitted to [facility] ICU s/p multivessel PCI. Spoke with patient at bedside, introduced self and role. Patient from home with alone, is independent, has PCP and prescription coverage, will have a ride home and denies discharge needs. Skye Real RN [facility]11-06-[address] [facility] and Vascular [place] [facility] Interventional Cardiology Progress Note CC: s/p multivessel PCI by Dr. Mckeon on 05/02 HPI / Interval History: Ms. Trotter had PCI of the ostial left main to prox LAD, PCI of the mid LAD, and PCI of prox-mid LCx to OM1 with JATIN x 2. Right femoral access. EF is 59% This morning she is up in the bathroom doing ADLs. She states she is feeling much better. She denies any chest pain, dyspnea, palpitations, dizziness, bleeding, syncope. Right femoral site is soft, ecchymotic without bleeding or bruit. Assessment/Plan Multivessel CAD, s/p PCI of LMCA into prox-mid LAD with JATIN, and prox-mid LCx into OM2 with 2 overlapped JATIN - Stable. Denies chest pain. EKG stable this am. Right femoral site is soft, no bleeding, no bruit. Continue aspirin, brilinta without interruption for at least 1 year. Continue rosuvastatin 40 mg, lopressor. Recommend cardiac rehab as outpatient. Follow up with [facility]. Educated on taking aspirin and brilinta without any interruption and advised cardiac rehab and follow up. She is agreeable and understands. Reviewed care of right femoral site. Discussed with Dr. Mckeon Medications: amLODIPine, 10 mg, Oral, Daily aspirin, 81 mg, Oral, Daily busPIRone, 15 mg, Oral, TID DULoxetine, 60 mg, Oral, Daily influenza, 0.5 mL, IntraMUSCular, Once [Held by provider] isosorbide mononitrate ER, 30 mg, Oral, BID levothyroxine, 50 mcg, Oral, qAM AC metoprolol tartrate, 25 mg, Oral, BID pantoprazole, 20 mg, Oral, Nightly Or pantoprazole (ProtoNix) 40 mg in sodium chloride (PF) 0.9 % 10 mL injection, 40 mg, IntraVENous, Nightly rosuvastatin, 40 mg, Oral, Nightly spironolactone, 25 mg, Oral, Daily ticagrelor, 90 mg, Oral, BID Infusion Medications: heparin, 5-30 Units/kg/hr, Last Rate: 12 Units/kg/hr (05/02/24 0710) norepinephrine in sodium chloride 0.9 %, 2-50 mcg/min Physical Examination: Vitals: 05/03/24 0635 05/03/24 0700 05/03/24 0730 05/03/24 0800 BP: 132/66 136/72 141/65 145/64 BP Location: Patient Position: Pulse: 78 78 69 76 Resp: 16 17 14 16 Temp: TempSrc: SpO2: 98% 99% 97% 100% Weight: Height: Intake/Output Summary (Last 24 hours) at 05/03/2024 0940 Last data filed at 05/03/2024 0600 Gross per 24 hour Intake 130 ml Output 1205 ml Net -1075 ml Patient Vitals for the past 168 hrs: Weight Weight Method 05/03/24 0400 171 lb 8.3 oz (77.8 kg) Bed scale 05/02/24 1218 167 lb (75.8 kg) -- 05/02/24 0354 167 lb 4.8 oz (75.9 kg) Standing scale Physical Exam Vitals reviewed. Constitutional: General: She is not in acute distress. Appearance: Normal appearance. She is not diaphoretic. HENT: Head: Normocephalic. Mouth/Throat: Pharynx: No oropharyngeal exudate. Eyes: General: Right eye: No discharge. Left eye: No discharge. Extraocular Movements: Extraocular movements intact. Cardiovascular: Rate and Rhythm: Normal rate and regular rhythm. Pulses: Normal pulses. Heart sounds: Normal heart sounds. No murmur heard. No gallop. Comments: Right femoral site soft with ecchymosis. No bleeding. No bruit. No swelling. No pain. Pulmonary: Effort: Pulmonary effort is normal. No respiratory distress. Breath sounds: Normal breath sounds. Abdominal: General: Bowel sounds are normal. There is no distension. Palpations: Abdomen is soft. Tenderness: There is no abdominal tenderness. Musculoskeletal: General: Normal range of motion. Cervical back: Normal range of motion and neck supple. Right lower leg: No edema. Left lower leg: No edema. Skin: General: Skin is warm and dry. Capillary Refill: Capillary refill takes less than 2 seconds. Neurological: General: No focal deficit present. Mental Status: She is alert and oriented to person, place, and time. Cranial Nerves: No cranial nerve deficit. Psychiatric: Mood and Affect: Mood normal. Laboratory Tests: Recent Labs 05/02/2433405/02/24200005/03/24 0428 NA 138 137 135 K 3.6 3.8 4.9 CL 106 107 108* CO2 17* 17* 21* BUN 15 14 15 CREATININE 0.77 0.93 0.81 Recent Labs 05/02/24 03305/02/24 1735 05/02/24200705/03/24 0315 WBC 8.6 10.0 -- 11.9* HGB 13.6 11.0* 12.4 11.6* HCT 39.4 31.7* 36.3 33.6* MCV 90.6 90.6 -- 91.8 PLT 250 237 -- 219 Recent Labs 05/02/24 0727 05/02/24 1000 05/02/24200005/02/24 2300 05/03/24 0428 CKTOTAL -- -- 74 -- 503* CKMB -- -- 3.9 -- 49.0* TROPONINI <0.012 <0.012 0.314* 2.110* 11.800* Recent Labs 05/02/24 0335 BNP 856* Recent Labs 05/02/24 0335 TRIG 280* HDL 64* LDLCALC 81 CHOL 201* No results found for: LDLCHOLESTER Lab Results Component Value Date TSH 5.341 (H) 05/02/2024 EF BP Date Value Ref Range Status 05/02/2024 59 55 - 100 % Final 05/02/24 TRANSTHORACIC ECHOCARDIOGRAM (TTE) COMPLETE (CONTRAST/BUBBLE/3D PRN) 05/02/2024 1:02 PM (Final) Interpretation Summary Left Ventricle: Left ventricle size is nor (more content not included)...[facility]11-06-2024 Consult note* Millie Joseph - 05/03/2024 9:02 AM ESTAssociated Order(s): IP CONSULT TO CARDIAC REHAB; IP CONSULT TO CARDIAC REHAB Received referral and reviewed chart. Phase II Cardiopulmonary Rehab Referral discussed with Nissa Pimentel. Patient prefers cardiopulmonary rehab at [facility] and will follow up with Dr. Lemusto perez program. [facility] [id number] NoteReceived referral and reviewed chart. Phase II Cardiopulmonary Rehab Referral discussed with Nissa Trotter. Patient prefers cardiopulmonary rehab at [facility] and will follow up with Dr. Lemus to perez program. [facility]11-06-2024 Consult note* Millie Joseph - 05/03/2024 9:02 AM EST Associated Order(s): IP CONSULT TO CARDIAC REHAB; IP CONSULT TO CARDIAC REHAB Received referral and reviewed chart. Phase II Cardiopulmonary Rehab Referral discussed with Nissa Pimentel. Patient prefers cardiopulmonary rehab at [facility] and will follow up with Dr. Pablo todd program. * Wendie Faust - 05/02/2024 9:31 AM ESTAssociated Order(s): IP CONSULT TO CARDIAC REHAB Received referral and reviewed chart. Unable to discuss Phase II Cardiopulmonary Rehab Referral with Nissa Trotter at this time. Will follow to discuss program when appropriate. Patient will be contacted at home if discharged prior to discussion. documented in this [facility]11-05-2024 Plan of care note* Care Plan - Rebecca Ramírez RN - 05/02/2024 11:11 PM EST Problem: Pain - Adult Goal: Verbalizes/displays adequate comfort level or baseline comfort level Outcome: Progressing Problem: Safety - Adult Goal: Free from fall injury Outcome: Progressing Problem: Discharge Planning Goal: Discharge to home or other facility with appropriate resources Outcome: Progressing Problem: Chronic Conditions and Co-morbidities Goal: Patient's chronic conditions and co-morbidity symptoms are monitored and maintained or improved Outcome: Progressing Problem: Knowledge Deficit Goal: Patient/family/caregiver demonstrates understanding of disease process, treatment plan, medications, and discharge instructions Outcome: Progressing Problem: Potential for Compromised Skin Integrity Goal: Skin Integrity is Maintained or Improved Outcome: Progressing Goal: Nutritional status is improving Outcome: Progressing Problem: Urinary Incontinence Goal: Perineal skin integrity is maintained or improved Outcome: Progressing Problem: Potential for Falls Goal: I will remain free of falls Outcome: Progressing Problem: Discharge Barriers Goal: My discharge needs are met Outcome: Progressing [facility] [id number] Note* Post-Procedure Note - Madeleine Mcnair MD - 05/02/2024 3:49 PM EST [facility] Cardiac Catheterization Laboratory Post-Procedure Note Patient Name: Nissa Trotter Date: 05/02/2024, 3:49 PM Pre-Operative Diagnosis: Multivessel CAD Post-Operative Diagnosis: Multivessel CAD Procedure: [facility] Coronary Angiography IVUS PCI Findings: Successful PCI of the distal Lcx to OM1 with DESx2 Successful IVUS guided PCI of the Left Main to proximal LAD Successful IVUS guided PCI of the mid LAD Complications: None Plan: Risk factor modifications with lifestyle and diet DAPT with ASA (lifelong) and Brilinta (at least one year). High intensity statin. GDMT for CAD. Cardiac rehabilitation. Physician Signature: Madeleine Mcnair MD [facility] [employer] Work Phone: 1(267) 899-603811-05-2024 Note* Post-Procedure Note - Madeleine Mcnair MD - 05/02/2024 3:49 PM EST [facility] Cardiac Catheterization Laboratory Post-Procedure Note Patient Name: Nissa Trotter Date: 05/02/2024, 3:49 PM Pre-Operative Diagnosis: Multivessel CAD Post-Operative Diagnosis: Multivessel CAD Procedure: [facility] Coronary Angiography IVUS PCI Findings: Successful PCI of the distal Lcx to OM1 with DESx2 Successful IVUS guided PCI of the Left Main to proximal LAD Successful IVUS guided PCI of the mid LAD Complications: None Plan: Risk factor modifications with lifestyle and diet DAPT with ASA (lifelong) and Brilinta (at least one year). High intensity statin. GDMT for CAD. Cardiac rehabilitation. Physician Signature: Madeleine Mcnair MD [facility] Hospital[facility]jectioneering Phone: 1(140) 618-364811-05-[address] [facility] Cardiac Catheterization Laboratory Post-Procedure Note Patient Name: Nissa Trotter Date: 05/02/2024, 3:49 PM Pre-Operative Diagnosis: Multivessel CAD Post-Operative Diagnosis: Multivessel CAD Procedure: [facility] Coronary Angiography IVUS PCI Findings: Successful PCI of the distal Lcx to OM1 with DESx2 Successful IVUS guided PCI of the Left Main to proximal LAD Successful IVUS guided PCI of the mid LAD Complications: None Plan: Risk factor modifications with lifestyle and diet DAPT with ASA (lifelong) and Brilinta (at least one year). High intensity statin. GDMT for CAD. Cardiac rehabilitation. Physician Signature: Madeleine Mcnair, [facility]11-05-2024 Note* Care Coordination - Ilana Armstrong RN - 05/02/2024 2:02 PM EST Care Management Progress Note CM attempted IA. 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 CM will attempt again as able. Discharge plan: TBD. Awaiting clinical stability and medical clearance. Length of Stay (Days): 0 GMLOS: No GMLOS Documented [facility] [id number] Note* Care Coordination - Ilana Armstrong RN - 05/02/2024 2:02 PM EST Care Management Progress Note CM attempted IA. 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 CM will attempt again as able. Discharge plan: TBD. Awaiting clinical stability and medical clearance. Length of Stay (Days): 0 GMLOS: No GMLOS Documented [facility] [id number] NoteCare Management Progress Note CM attempted IA. 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 CM will attempt again as able. Discharge plan: TBD. Awaiting clinical stability and medical clearance. Length of Stay (Days): 0 GMLOS: No GMLOS [facility]* Pre-Sedation Documentation - Braeden Mckeon MD - 05/02/2024 1:00 PM EST Sedation Plan ASA class 3 - patient with severe systemic disease Mallampati class: II - soft palate, uvula, fauces visible. Sedation plan: local anesthesia and moderate (conscious sedation) Risks, benefits, and alternatives discussed with patient. Plan discussed with attending. Immediate reassessment prior to sedation: Patient's status reviewed and vital signs assessed; acceptable to perform procedure and proceed to administer sedation as planned. [employer] Phone: [phone] Note* Pre-Sedation Documentation - Braeden Mckeon MD - 05/02/2024 1:00 PM EST Sedation Plan ASA class 3 - patient with severe systemic disease Mallampati class: II - soft palate, uvula, fauces visible. Sedation plan: local anesthesia and moderate (conscious sedation) Risks, benefits, and alternatives discussed with patient. Plan discussed with attending. Immediate reassessment prior to sedation: Patient's status reviewed and vital signs assessed; acceptable to perform procedure and proceed to administer sedation as planned. [employer] Phone: 1(195) 852-153311-05-2024 Consult note* Wendie Faust - 05/02/2024 9:31 AM ESTAssociated Order(s): IP CONSULT TO CARDIAC REHAB Received referral and reviewed chart. Unable to discuss Phase II Cardiopulmonary Rehab Referral with Nissa Trotter at this time. Will follow to discuss program when appropriate. Patient will be contacted at home if discharged prior to discussion. [employer]11-05-2024 NoteReceived referral and reviewed chart. Unable to discuss Phase II Cardiopulmonary Rehab Referral with Nissa Trotter at this time. Will follow to discuss program when appropriate. Patient will be contacted at home if discharged prior to discussion. [facility]11-05-2024 NoteProblem: Pain - Adult Goal: Verbalizes/displays adequate comfort level or baseline comfort level Outcome: Progressing Problem: Safety - Adult Goal: Free from fall injury [facility]: [facility] Plan of care note* Care Plan - Ketty rTotter RN - 05/02/2024 4:48 AM EST Problem: Pain - Adult Goal: Verbalizes/displays adequate comfort level or baseline comfort level Outcome: Progressing Problem: Safety - Adult Goal: Free from fall injury Outcome: Progressing [facility] [id number] History and physical note* Nataly Tovar MD - 05/02/2024 2:57 AM EST [facility] Heart & Vascular [place] [facility] Cardiology/In-Patient Cardiology Service (ICS) History and Physical If patient is on ICS, for questions (see Principal Mechanical Engineer Finder): 7:00 AM- 5:00 PM: Contact ICS Fellow 5:00 PM - 11:00 PM: Contact ICS Moonlighter 11:00 PM- 7:00 AM: Contact Night Call (HLU) Fellow Chief Complaint: chest pain, accelerating angina, transfer from [facility] for CABG evaluation History of Present Illness: Nissa Trotter is a 68 y.o. female with a medical history of coronary artery disease status post CABG in 2007 and cardiac cath with PCI in 2015 and 2019 (see below for details). She also has a historyof ELODIA, hyperlipidemia, hypertension, depression/anxiety, prior tobacco use, TIA, and carotid stenosis. She follows with [facility] for her cardiology care. Patient had noticed worsening shortness of breath with activities, decreased exercise tolerance, and increased generalized fatigue for the past 1 month or so per patient. She had a normal stress testin December 2023 however given her cardiac history and her symptoms patient was scheduled for a cardiaccath at [facility] on 05-01-2024. After her cath she was transferred to [facility] for consideration of PCI for left main stenting. Patient was accepted to the inpatient cardiology service for further management. Patient reports that she has been experiencing some chest heaviness and chest pressure after her cardiac cath. She reports this exists at rest. She has not gotten any nitroglycerin yet. Otherwise she is currently hemodynamically stable and denies any other complaints. Prior cardiac testing and history summary: CABG in 2007 Cardiac cath 2015: Normal left main coronary artery, LAD which is previously bypassed, circumflex artery with 80% stenotic lesion and a 95% bifurcating RCA lesion. Circumflex artery had a saphenous vein graft which was patent in the left internal mammary artery was atretic. She underwent angioplasty of her right coronary artery which was complicated by spiral dissection to the PDA vessel She had a normal stress test in 2019 but was still having chest discomfort and she underwent cardiac cath in 2019. Cardiac cath 2019: Demonstrated high-grade stenosis of saphenous vein graft to the second obtuse marginal branch. She underwent 2 drug-eluting stents to these areas. Stress test 2023 demonstrated normal pharmacological myocardial perfusion, and preserved ejection fraction Cardiac cath 05/01/2024 Left main- ostial 90% stenosis LAD- mild calcification with mild to moderate disease in the midsegment but with no areas of high-grade stenosis Left Circumflex artery: nondominant vessel with total proximal occlusion Right coronary artery: Dominant vessel appears to be previously stented with mild proximal stenosisin-stent and mild diffuse distal disease less than 30% Grafts: VARGAS graft to mid LAD atretic Saphenous vein graft to first OM was not found despite multiple catheter use as well as aortogram Assessment/Plan Accelerating angina Coronary artery disease -Extensive history as outlined in HPI, cardiac cath at [facility] prior to transfer to [facility] [place] demonstrating ostial 90% stenosis of left main artery -Currently complains of anginal symptoms at rest, repeat EKG does not demonstrate any acute ST changes -Given anginal symptoms at rest will obtain troponins, NT proBNP as well -Given accelerating angina and anginal symptoms at rest will start heparin drip -As needed nitroglycerin PO ordered, if anginal symptoms not improving with p.o. nitro patient may have to be transferred to the CCU for closer monitoring and nitroglycerin drip -Obtain echocardiogram - obtain repeat lipid panel, A1c,TSH -Will plan on cath/PCI in AM -Chronic CAD/antianginal meds: Continue home aspirin Continue home metoprolol tartrate Continue home Imdur Continue home pravastatin Hypertension -Home amlodipine and spironolactone continued Hypothyroidism -Home Synthroid Depression/anxiety -Home BuSpar and Cymbalta ELODIA -Home CPAP Medications: amLODIPine, 10 mg, Oral, Daily aspirin, 81 mg, Oral, Daily busPIRone, 15 mg, Oral, TID DULoxetine, 60 mg, Oral, Daily heparin, 60 Units/kg, IntraVENous, Once [START ON 05/03/2024] influenza, 0.5 mL, IntraMUSCular, Once isosorbide mononitrate ER, 30 mg, Oral, BID levothyroxine, 50 mcg, Oral, qAM AC metoprolol tartrate, 25 mg, Oral, BID pantoprazole, 20 mg, Oral, Nightly Or pantoprazole (ProtoNix) 40 mg in sodium chloride (PF) 0.9 % 10 mL injection, 40 mg, IntraVENous, Nightly pravastatin, 80 mg, Oral, Nightly spironolactone, 25 mg, Oral, Daily Infusion Medications: heparin, 5-30 Units/kg/hr Physical Examination: Vitals: There were no vitals filed for this visit. No intake or output data in the 24 hours ending 05/02/24 0258 Wt Readings from Last 3 Encounters: No data found for Wt Physical Exam Constitutional: no acute distress. well nourished. well hydrated Psychiatric: A &O x 3. Medical insight appropriate NMT: Oral mucosa is pink and moist Neck: no JVD. Respiratory: Lungs are clear Cardiac exam: Rhythm: normal ; Normal S1 and S2 Murmur: none Other: No rub; no gallop. Vasc: Peripheral pulses intact Abdomen: soft Extremities: no LE edema Skin: Warm to touch and well perfused Laboratory Tests: Reviewed Denilson Macedo DO DATE of SERVICE: 05/02/2024 I, Nataly Tovar MD, saw and evaluated the patient. I personally obtained the forbes and critical portions of the history and physical exam. I reviewed the chart, the fellow's documentation, and discussed the patient with the fellow. I agree with the fellow's medical decision making and have edited the note to reflect my clinical findings and my assessment and plan. Nataly Tovar MD [employer] Work Phone: [phone]) 526-838511-05-[address] [facility] Heart & Vascular [place] [facility] Cardiology/In-Patient Cardiology Service (ICS) History and Physical If patient is on ICS, for questions (see Principal Mechanical Engineer Finder): 7:00 AM- 5:00 PM: Contact ICS Fellow 5:00 PM - 11:00 PM: Contact ICS Moonlighter 11:00 PM- 7:00 AM: Contact Night Call (HLU) Fellow Chief Complaint: chest pain, accelerating angina, transfer from [facility] for CABG evaluation History of Present Illness: Nissa Trotter is a 68 y.o. female with a medical history of coronary artery disease status post CABG in 2007 and cardiac cath with PCI in 2015 and 2019 (see below for details). She also has a history of ELODIA, hyperlipidemia, hypertension, depression/anxiety, prior tobacco use, TIA, and carotid stenosis. She follows with [facility] for her cardiology care. Patient had noticed worsening shortness of breath with activities, decreased exercise tolerance, and increased generalized fatigue for the past 1 month or so per patient. She had a normal stress test in December 2023 however given her cardiac history and her symptoms patient was scheduled for a cardiac cath at [facility] on 05-01-2024. After her cath she was transferred to [facility] for consideration of PCI for left main stenting. Patient was accepted to the inpatient cardiology service for further management. Patient reports that she has been experiencing some chest heaviness and chest pressure after her cardiac cath. She reports this exists at rest. She has not gotten any nitroglycerin yet. Otherwise she is currently hemodynamically stable and denies any other complaints. Prior cardiac testing and history summary: CABG in 2007 Cardiac cath 2015: Normal left main coronary artery, LAD which is previously bypassed, circumflex artery with 80% stenotic lesion and a 95% bifurcating RCA lesion. Circumflex artery had a saphenous vein graft which was patent in the left internal mammary artery was atretic. She underwent angioplasty of her right coronary artery which was complicated by spiral dissection to the PDA vessel She had a normal stress test in 2019 but was still having chest discomfort and she underwent cardiac cath in 2019. Cardiac cath 2019: Demonstrated high-grade stenosis of saphenous vein graft to the second obtuse marginal branch. She underwent 2 drug-eluting stents to these areas. Stress test 2023 demonstrated normal pharmacological myocardial perfusion, and preserved ejection fraction Cardiac cath 05/01/2024 Left main- ostial 90% stenosis LAD- mild calcification with mild to moderate disease in the midsegment but with no areas of high-grade stenosis Left Circumflex artery: nondominant vessel with total proximal occlusion Right coronary artery: Dominant vessel appears to be previously stented with mild proximal stenosis in-stent and mild diffuse distal disease less than 30% Grafts: VARGAS graft to mid LAD atretic Saphenous vein graft to first OM was not found despite multiple catheter use as well as aortogram Assessment/Plan Accelerating angina Coronary artery disease -Extensive history as outlined in HPI, cardiac cath at [facility] prior to transfer to [facility] [place] demonstrating ostial 90% stenosis of left main artery -Currently complains of anginal symptoms at rest, repeat EKG does not demonstrate any acute ST changes -Given anginal symptoms at rest will obtain troponins, NT proBNP as well -Given accelerating angina and anginal symptoms at rest will start heparin drip -As needed nitroglycerin PO ordered, if anginal symptoms not improving with p.o. nitro patient may have to be transferred to the CCU for closer monitoring and nitroglycerin drip -Obtain echocardiogram - obtain repeat lipid panel, A1c,TSH -Will plan on cath/PCI in AM -Chronic CAD/antianginal meds: Continue home aspirin Continue home metoprolol tartrate Continue home Imdur Continue home pravastatin Hypertension -Home amlodipine and spironolactone continued Hypothyroidism -Home Synthroid Depression/anxiety -Home BuSpar and Cymbalta ELODIA -Home CPAP Medications: amLODIPine, 10 mg, Oral, Daily aspirin, 81 mg, Oral, Daily busPIRone, 15 mg, Oral, TID DULoxetine, 60 mg, Oral, Daily heparin, 60 Units/kg, IntraVENous, Once [START ON 05/03/2024] influenza, 0.5 mL, IntraMUSCular, Once isosorbide mononitrate ER, 30 mg, Oral, BID levothyroxine, 50 mcg, Oral, qAM AC metoprolol tartrate, 25 mg, Oral, BID pantoprazole, 20 mg, Oral, Nightly Or pantoprazole (ProtoNix) 40 mg in sodium chloride (PF) 0.9 % 10 mL injection, 40 mg, IntraVENous, Nightly pravastatin, 80 mg, Oral, Nightly spironolactone, 25 mg, Oral, Daily Infusion Medications: heparin, 5-30 Units/kg/hr Physical Examination: Vitals: There were no vitals filed for this visit. No intake or output data in the 24 hours ending 05/02/24 0258 Wt Readings from Last 3 Encounters: No data found for Wt Physical Exa (more content not included)...[facility]11-05-2024 History and physical note* Nataly Tovar MD - 05/02/2024 2:57 AM EST [facility] Heart & Vascular [place] [facility] Cardiology/In-Patient Cardiology Service (ICS) History and Physical If patient is on ICS, for questions (see Principal Mechanical Engineer Finder): 7:00 AM- 5:00 PM: Contact ICS Fellow 5:00 PM - 11:00 PM: Contact ICS Moonlighter 11:00 PM- 7:00 AM: Contact Night Call (HLU) Fellow Chief Complaint: chest pain, accelerating angina, transfer from [facility] for CABG evaluation History of Present Illness: Nsisa Trotter is a 68 y.o. female with a medical history of coronary artery disease status post CABG in 2007 and cardiac cath with PCI in 2015 and 2019 (see below for details). She also has a historyof ELODIA, hyperlipidemia, hypertension, depression/anxiety, prior tobacco use, TIA, and carotid stenosis. She follows with [facility] for her cardiology care. Patient had noticed worsening shortness of breath with activities, decreased exercise tolerance, and increased generalized fatigue for the past 1 month or so per patient. She had a normal stress testin December 2023 however given her cardiac history and her symptoms patient was scheduled for a cardiaccath at [facility] on 05-01-2024. After her cath she was transferred to [facility] for consideration of PCI for left main stenting. Patient was accepted to the inpatient cardiology service for further management. Patient reports that she has been experiencing some chest heaviness and chest pressure after her cardiac cath. She reports this exists at rest. She has not gotten any nitroglycerin yet. Otherwise she is currently hemodynamically stable and denies any other complaints. Prior cardiac testing and history summary: CABG in 2008 Cardiac cath 2015: Normal left main coronary artery, LAD which is previously bypassed, circumflex artery with 80% stenotic lesion and a 95% bifurcating RCA lesion. Circumflex artery had a saphenous vein graft which was patent in the left internal mammary artery was atretic. She underwent angioplasty of her right coronary artery which was complicated by spiral dissection to the PDA vessel She had a normal stress test in 2019 but was still having chest discomfort and she underwent cardiac cath in 2019. Cardiac cath 2019: Demonstrated high-grade stenosis of saphenous vein graft to the second obtuse marginal branch. She underwent 2 drug-eluting stents to these areas. Stress test 2023 demonstrated normal pharmacological myocardial perfusion, and preserved ejection fraction Cardiac cath 05/01/2024 Left main- ostial 90% stenosis LAD- mild calcification with mild to moderate disease in the midsegment but with no areas of high-grade stenosis Left Circumflex artery: nondominant vessel with total proximal occlusion Right coronary artery: Dominant vessel appears to be previously stented with mild proximal stenosisin-stent and mild diffuse distal disease less than 30% Grafts: VARGAS graft to mid LAD atretic Saphenous vein graft to first OM was not found despite multiple catheter use as well as aortogram Assessment/Plan Accelerating angina Coronary artery disease -Extensive history as outlined in HPI, cardiac cath at [facility] prior to transfer to [facility] [place] demonstrating ostial 90% stenosis of left main artery -Currently complains of anginal symptoms at rest, repeat EKG does not demonstrate any acute ST changes -Given anginal symptoms at rest will obtain troponins, NT proBNP as well -Given accelerating angina and anginal symptoms at rest will start heparin drip -As needed nitroglycerin PO ordered, if anginal symptoms not improving with p.o. nitro patient may have to be transferred to the CCU for closer monitoring and nitroglycerin drip -Obtain echocardiogram - obtain repeat lipid panel, A1c,TSH -Will plan on cath/PCI in AM -Chronic CAD/antianginal meds: Continue home aspirin Continue home metoprolol tartrate Continue home Imdur Continue home pravastatin Hypertension -Home amlodipine and spironolactone continued Hypothyroidism -Home Synthroid Depression/anxiety -Home BuSpar and Cymbalta ELODIA -Home CPAP Medications: amLODIPine, 10 mg, Oral, Daily aspirin, 81 mg, Oral, Daily busPIRone, 15 mg, Oral, TID DULoxetine, 60 mg, Oral, Daily heparin, 60 Units/kg, IntraVENous, Once [START ON 05/03/2024] influenza, 0.5 mL, IntraMUSCular, Once isosorbide mononitrate ER, 30 mg, Oral, BID levothyroxine, 50 mcg, Oral, qAM AC metoprolol tartrate, 25 mg, Oral, BID pantoprazole, 20 mg, Oral, Nightly Or pantoprazole (ProtoNix) 40 mg in sodium chloride (PF) 0.9 % 10 mL injection, 40 mg, IntraVENous, Nightly pravastatin, 80 mg, Oral, Nightly spironolactone, 25 mg, Oral, Daily Infusion Medications: heparin, 5-30 Units/kg/hr Physical Examination: Vitals: There were no vitals filed for this visit. No intake or output data in the 24 hours ending 05/02/24 0258 Wt Readings from Last 3 Encounters: No data found for Wt Physical Exam Constitutional: no acute distress. well nourished. well hydrated Psychiatric: A &O x 3. Medical insight appropriate NMT: Oral mucosa is pink and moist Neck: no JVD. Respiratory: Lungs are clear Cardiac exam: Rhythm: normal ; Normal S1 and S2 Murmur: none Other: No rub; no gallop. Vasc: Peripheral pulses intact Abdomen: soft Extremities: no LE edema Skin: Warm to touch and well perfused Laboratory Tests: Reviewed Denilson Macedo DO DATE of SERVICE: 05/02/2024 I, Nataly Tovar MD, saw and evaluated the patient. I personally obtained the forbes and critical portions of the history and physical exam. I reviewed the chart, the fellow's documentation, and discussed the patient with the fellow. I agree with the fellow's medical decision making and have edited the note to reflect my clinical findings and my assessment and plan. Nataly Tovar MD documented in this [facility]10-31-2024 [facility] Medical Records Department [address] [place] [address] History Physical Exam 04/27/24 1736 MR#: [id number] Acct: [id number] Name: NISSA TROTTER Rep #: [id number] : 1955 68 From: Ana ALVARADO PCP: Dr. Teresa Boggs, DO [place] [facility] [place] [facility] History and Physical Date of Admission: 05/01/24 NISSA TROTTER, is a 68 F who presents today for a diagnostic heart catheterization. she is a lady with a history of coronary artery disease status post cardiac catheterization in 2015 demonstrating a normal left main coronary artery, left anterior descending artery which was previously bypassed, circumflex artery with an 80% stenotic lesion and a 95% bifurcating RCA lesion. The circumflex artery had a saphenous vein graft which was patent and the left internal mammary artery was atretic. 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 She was seen in 2019 and despite a normal stress test she had complained of chest discomfort and therefore underwent a cardiac catheterization which demonstrated a high-grade stenosis of the saphenous vein graft to the second obtuse marginal branch. She underwent 2 drug- eluting stents to the above. Stress test in 2023 was negative for ischemia. Pt has been having some swelling in her face and sometimes in her arms. She does sometimes have swelling in her legs. She is having chest discomfort and increased shortness of breath with exertion. She does feel that this is worsened since her stress test. She has needed to use nitroglycerin. [facility] Medical History (Updated 03/28/24 @ 10:35 by Ana ALVARADO PA) Bilateral carotid bruits Easy bruising 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 Wears partial dentures Wears glasses Post-menopausal Cancer Depression Anxiety History of steroid therapy Thyroid disease Arthritis Back pain History of IBS CPAP (continuous positive airway pressure) dependence History of echocardiogram History of stress test Hypertension Cardiology follow-up encounter History of heart attack History of atrial fibrillation Former smoker Personal history of skin cancer Neoplasm of skin of ear ELODIA (obstructive sleep apnea) High triglycerides Anxiety and depression Allergies Alcohol abuse Actinic keratoses IBS (irritable bowel syndrome) Myocardial infarct Bipolar 1 disorder TIA (transient ischemic attack) Blurred vision, bilateral Slurred speech Chronic diastolic (congestive) heart failure Subluxation of left thumb Essential (primary) hypertension Non-rheumatic tricuspid valve insufficiency Atherosclerosis of coronary artery of [place] heart with angina pectoris CVA (cerebral vascular accident) Basal cell carcinoma of neck Hypothyroidism GERD (gastroesophageal reflux disease) Osteoarthritis Fibromyalgia Seizure disorder Post traumatic stress disorder (PTSD) Hyperlipidemia Surgical History History of excision of lesion Hx of surgical procedure History of coronary artery stent placement Hx of foot surgery Hx of foot surgery History of esophagogastroduodenoscopy (EGD) History of basal cell carcinoma excision History of left heart catheterization (03/25/20) H/O coronary artery bypass surgery (10/21/07) Family History Father CAD (coronary artery disease) Hypertension Mother CAD (coronary artery disease) Hypertension Colon cancer Sister Hypertension Other Alcoholism Anxiety Arthritis Depression Heart disease Social History Smoking Status: Former smoker alcohol intake: former details: Participates in AA substance use type: does not use what type of physical activity do you participate in: walking seatbelt use: always do you feel safe at home: Yes additional social history: disability- retired Does Take Aspirin As Needed Does Not Take Ibuprofen Const Const: Positive for fatigue; Negative for weakness, fever(s) or headache(s) Eyes Eyes: Negative for blind spots, loss of peripheral vision or transient loss of vision ENT ENT: Negative for headache(s), dizziness, tinnitus, Nosebleed/epistaxis or balance problems Cardio Chest Pain: No Palpitations: No Edema: None Muscle aches with walking: None Resp Respiratory: Negative for SOB with activity, SOB at rest, SOB orthopnea SOB lying down or Cough GI GI: Negative nausea, vomiting, heartburn or vomiting blood/hematemesis : Negative for hematuria Musc Musc: Negative for muscle aches/ myalgia, muscle weakness, joint pain or balance problems Neuro Neuro: Negative for dizziness, lightheadedness, near (more content not included)...[facility]04-24-2023 [facility]04[facility]24-2023 [facility]01-18-2023 History and physical note Author Dr. Peoples [facility] July 14, 2022 11:09pm Note Date/Time July 14, 2022 1 1:09pm [facility] Medical Records Department [address] [place] [address] History & Physical Exam 07/14/22 2254 MR#: [id number] Acct: [id number] Name: NISSA TROTTER Rep #:[id number] : 1955 66 From: Carlos Noble PCP: Dr. Teresa Boggs, DO [place] [facility] [place] [facility] History and Physical Date of Admission: 07/15/22 HISTORY OF PRESENT ILLNESS 66 year old woman presents for evaluation for TBSE.? Her PCP is treating lesionson her nasal dorsum and left neck and left postauricular area with extension to the posterior ear with freezing.? The lesions have responded except for the one on the left postauricular area with extension to the posterior ear which has enlarged.? It also intermittently scabs over.? She did have a basal cell carcinoma excised from her right neck in May,.? She denies fever.? Shedenies trauma.? She denies any infection. She denies any bleeding or drainage.? She presents today for further evaluation and treatment. PAST MEDICAL HISTORY Actinic keratoses Alcohol abuse Anxiety and depression Atherosclerosis of coronary artery of [place] heart with angina pectoris Basal cell carcinoma of neck Bipolar 1 disorder Blurred vision, bilateral Chronic diastolic (congestive) heart failure Contusion of left hand, initial encounter CVA (cerebral vascular accident) Essential (primary) hypertension Fibromyalgia Former smoker GERD (gastroesophageal reflux disease) High triglycerides Hyperlipidemia Hypothyroidism IBS (irritable bowel syndrome) Myocardial infarct Neoplasm of skin of ear Non-rheumatic tricuspid valve insufficiency ELODIA (obstructive sleep apnea) Osteoarthritis Personal history of skin cancer Post traumatic stress disorder (PTSD) Seizure disorder Slurred speech Subluxation of left thumb TIA (transient ischemic attack) PAST SURGICAL HISTORY H/O coronary artery bypass surgery (10/21/07) H/O right coronary artery stent placement (03/25/20) History of basal cell carcinoma excision History of left heart catheterization (08/09/17) ALLERGIES adhesive tape codeine doxazosin furosemide [From Lasix] latex lisinopril oxycodone HCl [From Percocet] tramadol HCl [From Ultram] MEDICATIONS buspirone multivitamin with folic acid omega-3 fatty acids aspirin cetirizine duloxetine magnesium oxide amlodipine isosorbide mononitrate nitroglycerin metoprolol tartrate pravastatin clopidogrel spironolactone (Aldactone) cyclobenzaprine liothyronine zinc gluconate calcium carbonate-vitamin D3 [id number] levothyroxine FAMILY HISTORY Father - CAD (coronary artery disease), Hypertension Mother - CAD (coronary artery disease), Hypertension Sister - Hypertension Other - Alcoholism, Anxiety, Arthritis, Depression, Heart disease SOCIAL HISTORY Smoking Status:? Former smoker alcohol intake:? former details:? Participates in AA substance use type:? does not use REVIEW OF SYSTEMS General - Denies fever, fatigue, and weight loss. Eyes - Has cataracts.? Denies glaucoma. ENT - Denies nasal congestion and sore throat. Endocrine - Denies excessive thirst and urination. Has thyroid disease.? Has heat and cold intolerance. Skin - Has personal history of skin cancer (basal cell carcinoma right neck excised May,).? Has enlarging lesion left postauricular area with extension to the posterior ear. Musculoskeletal - Has joint pain, joint stiffness, back pain, and arthritis.? Denies weakness of muscles and joints. Neuro - Denies headaches. Cardiovascular - Denies chest pain, fatigue, and shortness of breath with exertion. Has CAD and hypertension. Psych - Has anxiety and depression. Respiratory - Denies chronic cough and shortness of breath.? Has sleep apnea.? Patient is a former smoker. Gastrointestinal - Denies nausea, vomiting, and constipation.? Has diarrhea.? Has IBS. Hematologic - Denies abnormal bruising and bleeding. Genitourinary - Denies hematuria and urinary frequency. PHYSICAL EXAMINATION General - Alert and Oriented HEENT - PERRL. EOMI.? Throat is clear.? On the left postauricular area with extension to the posterior ear is a scabby lesion that is erythematous and measures 1.1 cm.? Has irregular borders. No ulceration.? Lesion is nontender.? On the nasal dorsum is a small area of erythema that was recently treated with freezing. No other suspicious lesions noted. Neck - Supple and nontender.? No cervical adenopathy. On the left neck is a small area of erythema that was recently treated with freezing. No other suspicious lesions noted. Lungs - Clear to auscultation. Heart - Regular rate and rhythm. Abdomen - Soft and nondistended. Extremities - FROM. No axillary adenopathy.? Radial pulses are palpable. No suspicious lesions noted. Neuro - CN II-XII grossly intact. Psych - Normal mood and affect. ASSESSMENT 1.? 1.1 cm lesion left postauricular area with extension to the posterior ear, clinically a squamous cell carcinoma. 2.? Personal history of skin cancer. 3.? Former smoker. PLAN Patient has an enlarging lesion left postauricular area with extension to the posterior ear that is clinically suspicious for carcinoma.? Attempts were made to treat it locally with freezing without success as the lesion has increased insize.? Recommend excision of this lesion left postauricular area with extension to the posterior ear and send it to Pathology for analysis to rule out carcinoma.? A full thickness excision will be done to look for possible invasion.? If no carcinoma is seen, then will close up the smaller wound defect with a local skinflap and/or possible skin graft. If carcinoma is present, then further excision will be done with a margin in alldirections followed by reconstruction of a larger wound that would need a largerskin flap and/or larger skin graft. Any wound extension onto the posterior ear would probably be skin grafted. Surgery would be done under local anesthesia and IV sedation on an outpatient basis. Patient was informed of the risks and complications of the procedure including alternatives to surgery.? These were discussed with the patient personally.? Patient voices understanding and wishes to proceed. Some of the risks and complications were included in a form from the [employer]. Assessment & Plan Assessment/Plan (1) Neoplasm of skin of ear: (2) Personal history of skin cancer: (3) Former smoker: 07/14/226 <Electronically signed by Carlos Peoples MD> Cosigner Signature (if applicable): CC: Dr. Carlos Peoples MD; Dr. Teresa Boggs DO~ Signed [facility] Work Phone: [phone] 149-968304-25-2008 Evaluation note* Diagnosis Onset Date Resolution Status Chronic diastolic (congestive) heart failure chronic Essential (primary) hypertension chronic H/O coronary artery bypass surgery October 21, 2007 chronic H/O right coronary artery stent placement March 252019 chronic Hyperlipidemia chronic [facility] Work Phone: [phone] 525-134604-25-2008 Evaluation note* Diagnosis Onset Date Resolution Status Chronic diastolic (congestive) heart failure chronic Essential (primary) hypertension chronic H/O coronary artery bypass surgery October 21, 2007 chronic History of coronary artery stent placement chronic Hyperlipidemia chronic Personal history of skin cancer acute 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 Former smoker chronic Personal history of skin cancer acute 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 Former smoker chronic Personal history of skin cancer acute 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 Former smoker chronic Personal history of skin cancer acute 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 Former smoker chronic Personal history of skin cancer acute 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 Former smoker chronic Encounter for screening for malignant neoplasm of colon acute [facility] Work Phone: [phone]) 222-330104-25-2008 Evaluation note* Diagnosis Onset Date Resolution Status Chronic diastolic (congestive) heart failure chronic Essential (primary) hypertension chronic H/O coronary artery bypass surgery October 21, 2007 chronic Hyperlipidemia [facility] Work Phone: 1([phone]) 585-412403-03-2008 History of Present illness Narrative* 08/29/2007 4:00 PM EST This is a 52 year old female [...] No history of dysuria, frequency and incontinence [employer]: Negative for abnormal vaginal bleeding, abnormal vaginal discharge and breast symptoms. LMP: 2years ago. MUSCULOSKELETAL: Feels hands stiff for 1/2 [...] decreased to 25mcg from 100mcg recently about 6weeks ago, and she is feeling much better now, no constipation, no excess sleepiness, and will recheck her TSH. 2. h/o angioedema: [facility], and she was on lisinopril, and I stopped it because of being notorious. 3. Hypertension: blood pressure was measured and it is 131/61 and she is going to be off lisinopriland just keeping her on amlodipine and atenolol. 4. Fibromyalgia: asking about lyrica, but she also read that can cause angioedema itself, so I recommended avoiging it altogether, and she was not happy with amitriptylline because she gained a lot of weight. 5. General anxiety disorder: she is on buspar 10 mg twice daily. Moises Muniz MD documented in this encounterW[facility]03-[facility] Nurse Note* 08/29/2007 4:00 PM EST >> NEIDA CHAPPELL MA Mon Aug 29, 2007 3:49 PM Is the patient having any pain? Yes: LOCATION: joints in hands ,wrists, elbows PAIN SCALE: 6 on a scale of 0-10 Neida Chappell Ma documented in this encounterWadsworth-Rittman HospitalDischarge summary Author Dr. Peoples [facility] July 15, 2022 10:19am Note Date/Time July 15, 2022 9 :27am [facility] Medical Records Department [address] [place] [address] Instructions for Home/Discharge Instructions 07/15/22 0925 MR#: [id number] Acct: [id number] Name: NISSA TROTTER Rep #:[id number] : 1955 66 From: Carlos Noble PCP: Dr. Teresa Boggs, DO [place] [facility] [place] Diet Discharge Diet: No restrictions Activity Discharge Activity: May Shower (in two days.) and - (no heavy lifting. keep head elevated.) May shower in (days): 2 May resume sexual activity in: No Restrictions Weight Bearing Status: Weight bearing as tolerated Lifting Restrictions: 20 lbs. Keep extremity elevated above heart level: - (elevate head.) Dressing / Incision Call your doctor if your incision/area has: Continuous Slow Oozing, Sudden Increased Bleeding, Increased Pain/ Swelling, Increased Redness, Foul Smelling Discharge and Swelling at the incision site Call your doctor if you observe: Fever of 101 or Higher, Coldness, Increased Pain, Shortness of breath, Chest pain, Calf discomfort and Uncontrolled pain Suture Line Care: - (after the operative dressing is removed, (may remove in twodays), apply antibiotic ointment to suture line daily.) Remove Dressing in: 2 days (may remove operative dressing in two days. will remove the steri-strips in the office. if the steri-strips start to come loose,may pull them off.) Cleanse incision/area with: Soap & Water (may get incision wet in the shower in two days.) Follow Up Care Please Follow Up With: Carlos Peoples MD When: one week. call [phone] for appt. Test Results: Test results from this visit will be discussed in further detail at your follow- up appointment, if applicable. Discharge Plan Admission Primary Reason for Your Visit: excision basal cell carcinoma left postauricular area. Attending Provider: Carlos Peoples Primary Care Provider: Teresa Boggs Discharge Orders/Prescriptions Prescriptions: New clindamycin HCl [Cleocin HCl] 300 mg capsule 300 mg PO TID Qty: 12 0RF L.acidoph,saliva-B.bif-S.therm [Acidophilus Probiotic Blend] 175 mg capsule 1 cap PO DAILY Qty: 10 0RF oxycodone-acetaminophen [Percocet] 5-325 mg tablet 1 tab PO Q6H PRN (Reason: pain (scale score 7-10)) 7 Days Qty: 28 0RF Rx Instructions: 28 tabs (twenty-eight) Continued magnesium oxide 400 mg magnesium capsule 400 mg PO DAILY liothyronine 5 mcg tablet 5 mcg PO SUMOWEFRSA Label Comments: take 1 tablet by mouth once daily ON WEDNESDAY, WEDNESDAY, WEDNESDAY, S... (REFER TO PRESCRIPTION NOTES). cyclobenzaprine 5 mg tablet 5 mg PO PRN PRN (Reason: Muscle Pain) Label Comments: take 1-2 tablet by mouth every 8 hours if needed muscle spasm calcium carbonate-vitamin D3 500 mg(1,250mg) -50 unit capsule 1 cap PO DAILY tdjpfjfvzz-ldyluaabosej-lfwgha 100-500-50 mg capsule 1 cap PO DAILY duloxetine 60 mg capsule,delayed release(DR/EC) 60 mg PO DAILY levothyroxine 50 mcg tablet 50 mcg PO MOTUWETHFRSA buspirone 5 MG tablet 10 mg PO TID Label Comments: MENTAL HEALTH multivitamin with folic acid 1 TABLET tablet 1 tab PO DAILY Label Comments: SUPPLEMENT omega-3 fatty acids 500 MG capsule 1,500 mg PO DAILY Label Comments: SUPPLEMENT aspirin 81 MG tablet,chewable 81 mg PO DAILY@0800 Label Comments: HEART HEALTH-LAST DOSE 07/10/22 cetirizine 10 MG capsule 10 mg PO DAILY nitroglycerin 0.4 mg tablet, sublingual 0.4 mg SUBLINGUAL Q5-15M PRN (Reason: Chest Pain) Qty: 25 6RF metoprolol tartrate 50 mg tablet 50 mg PO BID Qty: 180 3RF pravastatin 80 mg tablet 80 mg PO QHS Qty: 90 3RF clopidogrel 75 mg tablet 75 mg PO DAILY Qty: 90 3RF spironolactone [Aldactone] 25 mg tablet 25 mg PO DAILY Qty: 90 3RF amlodipine 10 mg tablet 10 mg PO DAILY Qty: 90 3RF Label Comments: BLOOD PRESSURE isosorbide mononitrate 30 mg tablet extended release 24 hr 30 mg PO BID Qty: 180 3RF Referrals / Follow Up: Carlos Peoples MD [Med Staff - Active Staff] - (followup one week.) Teresa Boggs DO [Primary Care Provider] - Disposition Disposition (needs filled in before D/C Order can be placed): Home, Self Care 07/15/22 1019<Electronically signed by Carlos Peoples MD>Carlos Peoples MD CC: Dr. Teresa Boggs DO ~ Signed [facility] Work Phone: Evaluation note* Diagnosis Myalgia and myositis, unspecified Mylagia and myositis, unspecified Unspecified hypothyroidism Essential hypertension, benign Depressive disorder, not elsewhere classified Anxiety state, unspecified documented in this encounter [facility] HospitalEvaluation noteNo assessment information availableWBarnesville Hospital Work Phone: Evaluation note* Diagnosis Onset Date Resolution Status Osteoarthritis of knees, bilateral acute [facility] Work Phone: Evaluation note* Diagnosis Onset Date Resolution Status Osteoarthritis of knees, bilateral acute Personal history of skin cancer acute Former smoker chronic Chronic diastolic (congestive) heart failure chronic Essential (primary) hypertension chronic H/O coronary artery bypass surgery October 21, 2007 chronic History of coronary artery stent placement chronic Hyperlipidemia chronic Personal history of skin cancer acute 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 Former smoker chronic [facility] Work Phone: evaluation note* Diagnosis Onset Date Resolution Status Osteoarthritis of knees, bilateral acute Personal history of skin cancer acute Former smoker chronic Chronic diastolic (congestive) heart failure chronic Essential (primary) hypertension chronic H/O coronary artery bypass surgery October 21, 2007 chronic History of coronary artery stent placement chronic Hyperlipidemia chronic Personal history of skin cancer acute 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 Former smoker chronic Personal history of skin cancer acute 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 Former smoker chronic [facility] Work Phone: evaluation note* Diagnosis Onset Date Resolution Status Osteoarthritis of knees, bilateral acute Personal history of skin cancer acute Former smoker chronic Chronic diastolic (congestive) heart failure chronic Essential (primary) hypertension chronic H/O coronary artery bypass surgery October 21, 2007 chronic History of coronary artery stent placement chronic Hyperlipidemia chronic Personal history of skin cancer acute 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 Former smoker chronic Personal history of skin cancer acute 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 Former smoker chronic Personal history of skin cancer acute 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 Former smoker chronic Personal history of skin cancer acute 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 Former smoker [facility] Work Phone: evaluation note* Diagnosis Onset Date Resolution Status Personal history of skin cancer acute Former smoker chronic Chronic diastolic (congestive) heart failure chronic Essential (primary) hypertension chronic H/O coronary artery bypass surgery October 21, 2007 chronic History of coronary artery stent placement chronic Hyperlipidemia chronic Personal history of skin cancer acute 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 Former smoker chronic Personal history of skin cancer acute 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 Former smoker chronic Personal history of skin cancer acute 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 Former smoker chronic Personal history of skin cancer acute 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 Former smoker chronic Personal history of skin cancer acute 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 Former smoker chronic [facility] Work Phone: evaluation note* Diagnosis Onset Date Resolution Status Encounter for screening for malignant neoplasm of colo n acute [facility] Work Phone: Evaluation note* Diagnosis Onset Date Resolution Status Encounter for screening for malignant neoplasm of colon acute Chest pressure acute SHANNON (dyspnea on exertion) ac jamul Fatigue acute Chronic diastolic (congestive) heart failure chronic Essential (primary) hypertension chronic H/O coronary artery bypass surgery October 21, 2007 chronic Hyperlipidemia chronic [facility] Work Phone: Evaluation note* Diagnosis Accelerating angina (HCC)- Primary Intermediate coronary syndrome Accelerating angina (HCC) Intermediate coronary syndrome Accelerating angina (HCC) Intermediate coronary syndrome documented [facility] this encounter [facility] Author Dagoberto Friend [facility] October 19, 2022 7:12am Note Date/Time October 19, 2022 7:1 2am [facility] Medical Records Department [address] [address] History & Physical Exam 10/19/22 0710 MR#: [id number] Acct: [id number] Name: NISSA TROTTER Rep #:[id number] : 1955 67 From: Dagoberto Erwin DO PCP: Dr. Teresa Boggs DO Status:[facility] Location: [place] [address] HPI - General General Date of Admission: 10/19/22 Date of Service: 10/19/22 Chief Complaint: Screening colonoscopy HPI Narrative NISSA TROTTER, is a 67 F who presents today for screening colonoscopy. She has a past medical history of adenomatous polyps. Last colonoscopy was in 2015. She had 1 polyp at that time. She has a family history of colon cancer in her other. Past medical history is positive for coronary artery bypass surgery in 2007, hypertension, hyperlipidemia, basal cell carcinoma status post removal. She is not having any problems with her bowels at this time. She not have any nausea, vomiting or diarrhea. She tolerated the prep without any problems. [facility] Medical History (Updated 10/12/22 @ 13:04 by Antonia Grover) Actinic keratoses Alcohol abuse Allergies Anxiety Anxiety and depression Arthritis Atherosclerosis of coronary artery of [place] heart with angina pectoris Back pain 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 Basal cell carcinoma of neck Bipolar 1 disorder Blurred vision, bilateral Cancer Cardiology follow-up encounter Chronic diastolic (congestive) heart failure CPAP (continuous positive airway pressure) dependence CVA (cerebral vascular accident) Depression Easy bruising Essential (primary) hypertension Fibromyalgia Former smoker GERD (gastroesophageal reflux disease) High triglycerides History of atrial fibrillation History of echocardiogram History of heart attack History of IBS History of steroid therapy History of stress test Hyperlipidemia Hypertension Hypothyroidism IBS (irritable bowel syndrome) Myocardial infarct Neoplasm of skin of ear Non-rheumatic tricuspid valve insufficiency ELODIA (obstructive sleep apnea) Osteoarthritis Personal history of skin cancer Post traumatic stress disorder (PTSD) Post-menopausal Seizure disorder Slurred speech Subluxation of left thumb Thyroid disease TIA (transient ischemic attack) Wears glasses Wears partial dentures Home Medications buspirone 5 mg tablet 10 mg PO TID MENTAL HEALTH 02/03/14 [History Last Taken 07/15/22 05:00] multivitamin with folic acid 400 mcg tablet 1 tab PO DAILY SUPPLEMENT 02/03/14 [History Last Taken 11/02/19] omega-3 fatty acids 500 mg capsule 1,500 mg PO DAILY SUPPLEMENT 10/20/15 [History Last Taken 11/02/19] aspirin 81 mg chewable tablet 81 mg PO DAILY@0800 ANTIPLATELET 09/24/16 [History Last Taken 07/07/22] cetirizine 10 mg capsule 10 mg PO DAILY 11/02/19 [History Last Taken 11/02/19] magnesium oxide 400 mg PO DAILY 05/01/20 [History Last Taken Unknown] nitroglycerin 0.4 mg sublingual tablet 0.4 mg sublingual Q5-15M PRN Chest Pain #25 tabs 07/02/21 [Rx Last Taken Unknown] metoprolol tartrate 50 mg tablet 50 mg PO BID #180 tabs 12/01/21 [Rx Last Taken 07/15/22 05:00] pravastatin 80 mg tablet 80 mg PO QHS CHOLESTEROL #90 tabs 01/05/22 [Rx Last Taken Unknown] clopidogrel 75 mg tablet 75 mg PO DAILY antiplatelet #90 tabs 01/12/22 [Rx Last Taken 07/07/22] spironolactone 25 mg tablet (Aldactone) 25 mg PO DAILY #90 tabs 01/27/22 [Rx Last Taken Unknown] cyclobenzaprine 5 mg tablet 5 mg PO PRN PRN Muscle Pain 05/06/22 [History Last Taken Unknown] liothyronine 5 mcg tablet 5 mcg PO SUMOWEFRSA thyroid 05/06/22 [History Last Taken Unknown] calcium carbonate-vitamin D3 500 mg (1,250 mg)-50 unit capsule 1 cap PO DAILY 06/08/22 [History Last Taken Unknown] qdcofplojn-ezadgitnikyx-teeyjg 100 mg-500 mg-50 mg capsule 1 cap PO DAILY 06/08/22 [History Last Taken Unknown] amlodipine 10 mg tablet 10 mg PO DAILY #90 tabs 06/12/22 [Rx Last Taken 07/15/22 05:00] isosorbide mononitrate 30 mg tablet,extended release 24 hr 30 mg PO BID #180 tabs 06/15/22 [Rx Last Taken 07/15/22 05:00] duloxetine 60 mg capsule,delayed release 60 mg PO DAILY 07/10/22 [History Last Taken 07/15/22 05:00] levothyroxine 50 mcg tablet 50 mcg PO MOTUWETHFRSA 07/10/22 [History Last Taken 07/15/22 05:00] Allergy/AdvReac Type Severity Reaction Status Date / Time adhesive tape Allergy Rash Verified 10/12/22 12:48 doxazosin Allergy DROPS Verified 10/12/22 12:48 HEART RATE furosemide [From Lasix] Allergy Itching Verified 10/12/22 12:48 latex Allergy Rash Verified 10/12/22 12:48 lisinopril Allergy Angioedema Verified 10/12/22 12:48 codeine AdvReac Itching Verified 10/12/22 12:48 oxycodone HCl [From Percocet] AdvReac Itching Verified 10/12/22 12:48 tramadol HCl [From Ultram] AdvReac Itching Verified 10/12/22 12:48 Family History (Updated 10/08/22 @ 16:23 by Darshana Espinoza) Father CAD (coronary artery disease) Hypertension Mother CAD (coronary artery disease) Hypertension Colon cancer Sister Hypertension Other Alcoholism Anxiety Arthritis Depression Heart disease Surgical History (Updated 10/12/22 @ 12:54 by Antonia Grover) H/O coronary artery bypass surgery (10/21/07) History of basal cell carcinoma excision History of coronary artery stent placement History of esophagogastroduodenoscopy (EGD) History of excision of lesion History of left heart catheterization (03/25/20) Hx of foot surgery Hx of foot surgery Hx of surgical procedure Social History Smoking Status: Former smoker alcohol intake: former details: Participates in AA substance use type: does not use what type of physical activity do you participate in: walking seatbelt use: always do you feel safe at home: Yes additional social history: disability- retired Does Take Aspirin As Needed Does Not Take Ibuprofen ROS Review of Systems ROS Unobtainable: other Constitutional Constitutional: Denies fatigue, fever(s), poor appetite, weight gain or weight loss ENT HEENT: Denies mouth lesions Cardiovascular Cardiovascular: Denies abdominal bloating, abdominal edema or abdominal pain Respiratory/Chest Respiratory/Chest: Denies change in mental status, change in phlegm color, chestcongestion or chest tightness Gastrointestinal Gastrointestinal: Denies belching, bloating, change in bowel habits, change in stool character, chewing difficulty, coffee ground emesis, constipation, cramping, diarrhea, dyspepsia, dysphagia, early satiety, excessive flatus, fecalincontinence, heartburn, hematemesis, hematochezia, hemorrhoids, loose stools, melena, nausea, odynophagia, rectal bleeding, tenesmus, vomiting or weight changes Genitourinary Genitourinary: Denies abdominal discomfort, burning urination or itching Musculoskeletal Musculoskeletal: Reports as per HPI; Denies muscle weakness or myalgias Integumentary Integumentary: Denies jaundice Neurologic Neurologic: Denies lack of coordination or weakness Psychiatric Psychiatric: Denies confusion, depression, memory loss, mood swings, paranoia orsuicidal ideation Endocrine Endocrinology: Denies systems reviewed and no addt'l complaints, except as documented Hematologic/Lymphatic Hematologic/Lymphatic: Denies anemia, easy bleeding, easy bruising or lymphadenopathy Allergic/Immunologic Allergic/Immunologic: Denies systems reviewed and no addt'l complaints, except as documented Physical Exam Const alert General Appearance: cooperative Orientation / Consciousness: oriented to person HEENT hearing grossly normal bilaterally Head and Scalp: normal to inspection Face and Sinus: face symmetric Nose: external nose normal Mouth: oral and palatal mucosa normal Eyes conjunctivae normal General Eye: normal appearance of both eyes Neck full ROM General: normal visual inspection Lymph Lymphatic: no lymphadenopathy noted Chest inspection of chest normal and palpation of chest normal Chest: symmetrical chest wall rise Resp normal respiratory effort Effort and Inspection: able to speak in complete sentences Cardio regular rate GI non-distended Percussion: normal to percussion Rectal Exam: deferred Neuro Speech: speech normal Gait (Neuro): normal gait Assessment & Plan Assessment/Plan (1) Encounter for screening for malignant neoplasm of colon: PLAN: She will undergo her surveillance colonoscopy. She was explained alternatives, risk, benefits include not withstanding bleeding, infection, sepsis, perforation, need for emergent surgery . She will have an ASA of 3. 10/19/22 0712 <Electronically signed by Dagoberto Erwin DO> Cosigner Signature (if applicable): CC: Dr. Teresa Boggs DO; Dagoberto Erwin DO~ Signed [facility] Work Phone: Hospital Discharge instructions Additional Instructions Implant Used?: [facility] Work Phone: Reason for referral (narrative)No reason for referral information available[facility] Work Phone: Reason for visit Narrative* Auth/Cert (Routine) Specialty Diagnoses / Procedures Referred By Britney vanegas Referred To Contact Diagnoses Accelerating angina (HCC) CAD Procedures . Nataly Tovar MD [address] [facility] [address] [place] [address] Phone: tel: fax: [facility] Cath/EP Lab [address] [place] [id number] Phone: tel: Referral ID Status Reason Start Date Expiration Date Visits Re quested Visits Authorized [id number] 1 1 [facility] Chief Complaint and Reason for Visit Chief Complaint SCREENING Chief Complaint SCREENING 6 M FU E ORDERS Reason for Visit Chronic diastolic (c ongestive) heart failure Essential (primary) hypertension H/O coronary artery bypass surgery H/O right coronary artery stent placement Hyperlipidemia Chief Complaint SCREENING 6 M FU E ORDERS chest pain Reason for Visit Chronic diastolic (c ongestive) heart failure Essential (primary) hypertension H/O coronary artery bypass surgery H/O right coronary artery stent placement Hyperlipidemia Chief Complaint chest pain Bilat knees Room 3 Reason for Visit Osteoarthritis of kn ees, bilateral Chief Complaint Bilat knees Room 3 Consult 1 Y FU INT LABS LT EXC LESION POSTAURICULAR AREA POSS SKIN FL/GR LT EXC LESION POSTAURICULAR AREA POSS SKIN FL/GR Reason for Visit Osteoarthritis of kn ees, bilateral Personal history of skin cancer Former smoker Chronic diastolic (congestive) heart failure Essential (primary) hypertension H/O coronary artery bypass surgery History of coronary artery stent placement Hyperlipidemia Personal history of skin cancer 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 Former smoker Chief Complaint Bilat knees Room 3 Consult 1 Y FU INT LABS LT EXC LESION POSTAURICULAR AREA POSS SKIN FL/GR LT EXC LESION POSTAURICULAR AREA POSS SKIN FL/GR LT EXC LESION POSTAURICULAR AREA POSS SKIN FL/GR POST OP CK Reason for Visit Osteoarthritis of kn ees, bilateral Personal history of skin cancer Former smoker Chronic diastolic (congestive) heart failure Essential (primary) hypertension H/O coronary artery bypass surgery History of coronary artery stent placement Hyperlipidemia Personal history of skin cancer 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 Former smoker Personal history of skin cancer 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 Former smoker Chief Complaint Bilat knees Room 3 Consult 1 Y FU INT LABS LT EXC LESION POSTAURICULAR AREA POSS SKIN FL/GR LT EXC LESION POSTAURICULAR AREA POSS SKIN FL/GR LT EXC LESION POSTAURICULAR AREA POSS SKIN FL/GR POST OP CK Blood Flow Screening - Guillaume POST OP POST OP CK Reason for Visit Osteoarthritis 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 ees, bilateral Personal history of skin cancer Former smoker Chronic diastolic (congestive) heart failure Essential (primary) hypertension H/O coronary artery bypass surgery History of coronary artery stent placement Hyperlipidemia Personal history of skin cancer 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 Former smoker Personal history of skin cancer 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 Former smoker Personal history of skin cancer 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 Former smoker Personal history of skin cancer 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 Former smoker Chief Complaint Consult 1 Y FU INT LABS LT EXC LESION POSTAURICULAR AREA POSS SKIN FL/GR LT EXC LESION POSTAURICULAR AREA POSS SKIN FL/GR LT EXC LESION POSTAURICULAR AREA POSS SKIN FL/GR POST OP CK Blood Flow Screening - Guillaume POST OP POST OP CK POST OP CK Reason for Visit Personal history of skin cancer Former smoker Chronic diastolic (congestive) heart failure Essential (primary) hypertension H/O coronary artery bypass surgery History of coronary artery stent placement Hyperlipidemia Personal history of skin cancer 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 Former smoker Personal history of skin cancer 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 Former smoker Personal history of skin cancer 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 Former smoker Personal history of skin cancer 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 Former smoker Personal history of skin cancer 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 Former smoker Chief Complaint 1 Y FU INT LABS LT EXC LESION POSTAURICULAR AREA POSS SKIN FL/GR LT EXC LESION POSTAURICULAR AREA POSS SKIN FL/GR LT EXC LESION POSTAURICULAR AREA POSS SKIN FL/GR POST OP CK Blood Flow Screening - Guillaume POST OP POST OP CK POST OP CK Amb Documentation Reason for Visit Chronic diastolic (c ongestive) heart failure Essential (primary) hypertension H/O coronary artery bypass surgery History of coronary artery stent placement Hyperlipidemia Personal history of skin cancer 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 Former smoker Personal history of skin cancer 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 Former smoker Personal history of skin cancer 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 Former smoker Personal history of skin cancer 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 Former smoker Personal history of skin cancer 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 Former smoker Encounter for screening for malignant neoplasm of colon Chief Complaint Amb Documentation SCREENING Reason for Visit Encounter for screen ing for malignant neoplasm of colon Chief Complaint Amb Documentation SCREENING E ORDER 6 M FU Reason for Visit Encounter for screen ing for malignant neoplasm of colon Chest pressure SHANNON (dyspnea on exertion) Fatigue Chronic diastolic (congestive) heart failure Essential (primary) hypertension H/O coronary artery bypass surgery Hyperlipidemia Chief Complaint E ORDERS 3 M FU Reason for Visit Chronic diastolic (c ongestive) heart failure Essential (primary) hypertension H/O coronary artery bypass surgery Hyperlipidemia Chief Complaint E ORDERS 3 M FU FALL, DIZZINESS, HEADACHE, R/O INTRACEREBRAL BLEED Reason for Visit Chronic diastolic (c ongestive) heart failure Essential (primary) hypertension H/O coronary artery bypass surgery Hyperlipidemia Chief Complaint Admit Date S/P [facility] 05/04May 10, 2024 3:38pm PCI with stent May 22, 2024 1:53pm PCI with stent June 26, 2024 1:00pm SORE THROAT, COUGH July 20, 2024 9 :05am PCI with stent July 26, 2024 1 :00pm ELODIA August 23, 2024 8:04pm PCI with stent August 25, 2024 1:00pm PCI with stent September 01, 2024 1:00 pm Reason for Visit Admit Date Bilateral carotid bruits May 10, 2024 3:38pm Chronic diastolic (congestive) heart gurvinder lure May 10, 2024 3:38pm Essential (primary) hypertension Novembe r 2023 3:38pm H/O coronary artery bypass surgery Novem anderson 2023 3:38pm History of coronary artery stent placeme nt May 10, 2024 3:38pm Hyperlipidemia May 10, 2024 3:38pm Acute bronchitis July 20, 2024 9 :05am Chief Complaint Admit Date PCI with stent May 22, 2024 1:53pm PCI with stent June 26, 2024 1:00pm SORE THROAT, COUGH July 20, 2024 9 :05am PCI with stent July 26, 2024 1 :00pm ELODIA August 23, 2024 8:04pm PCI with stent August 25, 2024 1:00pm 3 M FU September 07, 2024 7:5 2am ELODIA,BIPAP ST September 08, 2024 12: 54pm PCI with stent September 15, 2024 1:0 0pm Reason for Visit Admit Date Acute bronchitis July 20, 2024 9 :05am Bilateral carotid bruits September 07 7:52am Chronic diastolic (congestive) heart gurvinder lure September 07, 2024 7:52am Essential (primary) hypertension August 262024 7:52am H/O coronary artery bypass surgery September 07, 2024 7:52am History of coronary artery stent placeme nt September 07, 2024 7:52am Hyperlipidemia September 07, 2024 7:5 2am Chief Complaint Admit Date PCI with stent June 26, 2024 1:00pm SORE THROAT, COUGH July 20, 2024 9 :05am PCI with stent July 26, 2024 1 :00pm ELODIA August 23, 2024 8:04pm PCI with stent August 25, 2024 1:00pm 3 M FU September 07, 2024 7:5 2am ELODIA,BIPAP ST September 08, 2024 12: 54pm PCI with stent September 25, 2024 1:0 0pm Chief Complaint Admit Date PCI with stent June 26, 2024 1:00pm SORE THROAT, COUGH July 20, 2024 9 :05am PCI with stent July 26, 2024 1 :00pm ELODIA August 23, 2024 8:04pm PCI with stent August 25, 2024 1:00pm 3 M FU September 07, 2024 7:5 2am ELODIA,BIPAP ST September 08, 2024 12: 54pm PCI with stent September 25, 2024 1:0 0pm INT LABS October 03, 2024 8:05 am PH III monthly maintenance free month Ap ril 2024 8:00am Chief Complaint Admit Date SORE THROAT, COUGH July 20, 2024 9 :05am PCI with stent July 26, 2024 1 :00pm ELODIA August 23, 2024 8:04pm PCI with stent August 25, 2024 1:00pm 3 M FU September 07, 2024 7:5 2am ELODIA,BIPAP ST September 08, 2024 12: 54pm PCI with stent September 25, 2024 1:0 0pm INT LABS October 03, 2024 8:05 am PH III monthly maintenance free month Ap ril 2024 8:00am ELODIA October 18, 2024 1:5 1pm PH III monthly maintenance free month Ma y 2024 6:56am SOB October 31, 2024 8:11am Phase III monthly maintenance self pay M ay 2024 8:25am Reason for Visit Admit Date Acute bronchitis July 20, 2024 9 :05am Bilateral carotid bruits September 07 7:52am Chronic diastolic (congestive) heart gurvinder lure September 07, 2024 7:52am Essential (primary) hypertension August 262024 7:52am H/O coronary artery bypass surgery September 07, 2024 7:52am History of coronary artery stent placeme nt September 07, 2024 7:52am Hyperlipidemia September 07, 2024 7:5 2am ELODIA (obstructive sleep apnea) September 1:51pm Shortness of breath October 18, 2024 1:5 1pm Chief Complaint Admit Date SORE THROAT, COUGH July 20, 2024 9 :05am PCI with stent July 26, 2024 1 :00pm ELODIA August 23, 2024 8:04pm PCI with stent August 25, 2024 1:00pm 3 M FU September 07, 2024 7:5 2am ELODIA,BIPAP ST September 08, 2024 12: 54pm PCI with stent September 25, 2024 1:0 0pm INT LABS October 03, 2024 8:05 am PH III monthly maintenance free month Ap ril 2024 8:00am ELODIA October 18, 2024 1:5 1pm PH III monthly maintenance free month Ma y 2024 6:56am SOB October 31, 2024 8:11am Phase III monthly maintenance self pay M ay 2024 8:00am Shortness of breath November 03, 2024 12:08p m Chief Complaint Admit Date ELODIA August 23, 2024 8:04pm PCI with stent August 25, 2024 1:00pm 3 M FU September 07, 2024 7:5 2am ELODIA,BIPAP ST September 08, 2024 12: 54pm PCI with stent September 25, 2024 1:0 0pm INT LABS October 03, 2024 8:05 am PH III monthly maintenance free month Ap ril 2024 8:00am ELODIA October 18, 2024 1:5 1pm PH III monthly maintenance free month Ma y 2024 6:56am SOB October 31, 2024 8:11am Shortness of breath November 03, 2024 12:08p m SOB November 21, 2024 8:16a m Phase III monthly maintenance self pay M ay 2024 8:00am Reason for Visit Admit Date Bilateral carotid bruits September 07 7:52am Chronic diastolic (congestive) heart gurvinder lure September 07, 2024 7:52am Essential (primary) hypertension August 262024 7:52am H/O coronary artery bypass surgery September 07, 2024 7:52am History of coronary artery stent placeme nt September 07, 2024 7:52am Hyperlipidemia September 07, 2024 7:5 2am ELODIA (obstructive sleep apnea) September 1:51pm Shortness of breath October 18, 2024 1:5 1pm Chief Complaint Admit Date ELODIA August 23, 2024 8:04pm PCI with stent August 25, 2024 1:00pm 3 M FU September 07, 2024 7:5 2am ELODIA,BIPAP ST September 08, 2024 12: 54pm PCI with stent September 25, 2024 1:0 0pm INT LABS October 03, 2024 8:05 am PH III monthly maintenance free month Ap ril 2024 8:00am ELODIA October 18, 2024 1:5 1pm PH III monthly maintenance free month Ma y 2024 6:56am SOB October 31, 2024 8:11am Shortness of breath November 03, 2024 12:08p m SOB November 21, 2024 8:16a m Shortness of breath November 21, 2024 8:23a m Phase III monthly maintenance self pay M ay 2024 8:00am Phase III monthly maintenance self pay J une 2024 8:00am 8 wk fu December 15, 2024 8:43 am Reason for Visit Admit Date Bilateral carotid bruits September 07 7:52am Chronic diastolic (congestive) heart gurvinder lure September 07, 2024 7:52am Essential (primary) hypertension August 262024 7:52am H/O coronary artery bypass surgery September 07, 2024 7:52am History of coronary artery stent placeme nt September 07, 2024 7:52am Hyperlipidemia September 07, 2024 7:5 2am ELODIA (obstructive sleep apnea) September 1:51pm Shortness of breath October 18, 2024 1:5 1pm ELODIA (obstructive sleep apnea) December 15, 2024 8:43am Shortness of breath December 15, 2024 8:43 am Chief Complaint Admit Date ELODIA August 23, 2024 8:04pm PCI with stent August 25, 2024 1:00pm 3 M FU September 07, 2024 7:5 2am ELODIA,BIPAP ST September 08, 2024 12: 54pm PCI with stent September 25, 2024 1:0 0pm INT LABS October 03, 2024 8:05 am PH III monthly maintenance free month Ap ril 2024 8:00am ELODIA October 18, 2024 1:5 1pm PH III monthly maintenance free month Ma y 2024 6:56am SOB October 31, 2024 8:11am Shortness of breath November 03, 2024 12:08p m SOB November 21, 2024 8:16a m Shortness of breath November 21, 2024 8:23a m Phase III monthly maintenance self pay M ay 2024 8:00am 8 wk fu December 15, 2024 8:43 am E ORDER December 15, 2024 10:0 2am Phase III monthly maintenance self pay J une 2024 8:00am Reason for Visit Admit Date Bilateral carotid bruits September 07 7:52am Chronic diastolic (congestive) heart gurvinder lure September 07, 2024 7:52am Essential (primary) hypertension August 262024 7:52am H/O coronary artery bypass surgery September 07, 2024 7:52am History of coronary artery stent placeme nt September 07, 2024 7:52am Hyperlipidemia September 07, 2024 7:5 2am Shortness of breath October 18, 2024 1:5 1pm ELODIA (obstructive sleep apnea) September 1:51pm Shortness of breath December 15, 2024 8:43 am ELODIA (obstructive sleep apnea) December 15, 2024 8:43am Chief Complaint Admit Date 3 M FU September 07, 2024 7:5 2am ELODIA,BIPAP ST September 08, 2024 12: 54pm PCI with stent September 25, 2024 1:0 0pm INT LABS October 03, 2024 8:05 am PH III monthly maintenance free month Ap ril 2024 8:00am ELODIA October 18, 2024 1:5 1pm PH III monthly maintenance free month Ma y 2024 6:56am SOB October 31, 2024 8:11am Shortness of breath November 03, 2024 12:08p m SOB November 21, 2024 8:16a m Shortness of breath November 21, 2024 8:23a m Phase III monthly maintenance self pay M ay 2024 8:00am 8 wk fu December 15, 2024 8:43 am E ORDER December 15, 2024 10:0 2am Phase III monthly maintenance self pay J une 2024 8:00am Chief Complaint Admit Date PCI with stent September 25, 2024 1:0 0pm INT LABS October 03, 2024 8:05 am PH III monthly maintenance free month Ap ril 2024 8:00am ELODIA October 18, 2024 1:5 1pm PH III monthly maintenance free month Ma y 2024 6:56am SOB October 31, 2024 8:11am Shortness of breath November 03, 2024 12:08p m SOB November 21, 2024 8:16a m Shortness of breath November 21, 2024 8:23a m Phase III monthly maintenance self pay M ay 2024 8:00am 8 wk fu December 15, 2024 8:43 am E ORDER December 15, 2024 10:0 2am Phase III monthly maintenance self pay J une 2024 8:00am SOB January 18, 2025 12:1 2pm Phase III monthly maintenance self pay J maxim 2024 8:00am Reason for Visit Admit Date Shortness of breath October 18, 2024 1:5 1pm ELODIA (obstructive sleep apnea) September 1:51pm Shortness of breath December 15, 2024 8:43 am ELODIA (obstructive sleep apnea) December 15, 2024 8:43am Chief Complaint Admit Date INT LABS October 03, 2024 8:05 am PH III monthly maintenance free month Ap ril 2024 8:00am ELODIA October 18, 2024 1:5 1pm PH III monthly maintenance free month Ma y 2024 6:56am SOB October 31, 2024 8:11am Shortness of breath November 03, 2024 12:08p m SOB November 21, 2024 8:16a m Shortness of breath November 21, 2024 8:23a m Phase III monthly maintenance self pay M ay 2024 8:00am 8 wk fu December 15, 2024 8:43 am E ORDER December 15, 2024 10:0 2am Phase III monthly maintenance self pay J une 2024 8:00am SOB January 18, 2025 12:1 2pm Phase III monthly maintenance self pay J maxim 2024 8:00am Family History No Family History Records Found Relationship Condition Age at Onset Recorded Date/T cuong father Coronary artery disease Unknown Hypertension Unknown mother Coronary artery disease Unknown sister Hypertension Unknown Relationship Condition Age at Onset Recorded Date/T cuong Not Specified Alcoholism Unknown Anxiety Unknown Arthritis Unknown Depression Unknown Cardiac disease Unknown father Coronary artery disease Unknown Hypertension Unknown mother Coronary artery disease Unknown sister Hypertension Unknown Relationship Condition Age at Onset Recorded Date/T cuong Not Specified Alcoholism Unknown Anxiety Unknown Arthritis Unknown Depression Unknown Cardiac disease Unknown father Coronary artery disease Unknown Hypertension Unknown mother Coronary artery disease Unknown Malignant neoplasm of colon Unknown sister Hypertension Unknown Advance Directives No Advanced Directives Records Found Advance Directive Response Recorded Date/ Time Advance Directives No February 7:25am Living Will No May 14 4:59pm Power of Biology Laboratory Assistant No May 14, 2021 4:59pm Advance Directive Response Recorded Date/ Time Advance Directives No February 7:25am Living Will No February 24 8:04am Power of Biology Laboratory Assistant No February 24 8:04am Advance Directive Response Recorded Date/ Time Advance Directives No April 30, 2022 9:36am Living Will No April 30 9:36am Power of Biology Laboratory Assistant No April 30, 2022 9:36am Advance Directive Response Recorded Date/ Time Advance Directives No April 30, 2022 10:36am Living Will No April 30 10:36am Power of Biology Laboratory Assistant No April 30, 2022 10:36am Advance Directive Response Recorded Date/ Time Advance Directives No April 30, 2022 10:36am Living Will No October 12, 2022 12:54pm Power of Biology Laboratory Assistant No October 12 12:54pm Advance Directive Response Recorded Date/ Time Advance Directives No April 30, 2022 9:36am Living Will No October 12, 2022 11:54am Power of Biology Laboratory Assistant No October 12 11:54am Date Activated Date Inactivated Comments 05/02/2024 2:09 AM 05/04/2024 4:54 PM Advance Directive Response Recorded Date/ Time Advance Directives on File No 2023 3:17pm Living Will No May 22 024 3:17pm Power of Biology Laboratory Assistant No May 22, 2024 3:17pm Advance Directives No May 01, 2024 10:20am Advance Directive Response Recorded Date/ Time Advance Directives on File No 2023 3:17pm Living Will No May 22, 2 024 3:17pm Do you have a Healthcare Power of Biology Laboratory Assistant? No May 22, 2024 3:17pm Advance Directives No May 01, 2024 10:20am Advance Directive Response Recorded Date/ Time Advance Directives No May 01, 2024 10:20am Summary Purpose Additional Source Comments Source Comments (unrecognize d section and content) In the event this informatio n is protected by the Federal Confidentiality of Alcohol and Drug Abuse Patient Records regulations: The Federal rules restrict any use of the information to criminally investigate or prosecute any alcohol or drug abuse patient.[facility] Reason for Visit (unrecogniz ed section and content) Reason Comments Follow Up discuss pain Refill Request Goals (unrecognized section and content) Goals may be documented in a n alternate sectionGoals may be documented in an alternate sectionGoals may be documented in an alternate sectionGoals may be documented in an alternate sectionGoals may be documented in an alternate sectionGoals may be documented in an alternate sectionGoals may be documented in an alternate sectionGoals may be documented in an alternate sectionGoals may be documented in an alternate sectionGoals may be documented in an alternate sectionGoals may be documented in an alternate sectionGoals may be documented in an alternate sectionGoals may be documented in an alternate sectionGoals may be documented in an alternate sectionGoals may be documented in an alternate sectionGoals may be documented in an alternate sectionGoals may be documented in an alternate sectionGoals may be documented in an alternate sectionGoals may be documented in an alternate sectionGoals may be documented in an alternate sectionGoals may be documented in an alternate sectionGoals may be documented in an alternate sectionGoals may be documented in an alternate sectionGoals may be documented in an alternate sectionGoals may be documented in an alternate section Care Teams (unrecognized sec tion and content) Team Status: Active Member Role Status Dates Dr. Teresa Boggs , DO Family Provider Active Dr. Teresa Boggs , DO Primary Care Provider Active Team Status: Inactive Member Role Status Dates Dr. Teresa Boggs , DO Primary Care Provider, Referring Eddie pearson Active Dr. Christian Reynolds , DO Attending Provider Active Team Status: Inactive Member Role Status Dates Dr. Teresa Boggs DO Primary Care Provider Active Dr. Dustin Lemus MD Attending Provider Active Team Status: Inactive Member Role Status Dates Dr. Teresa Boggs DO Primary Care Provider, Referring P rovider Active Dr. Carlos Peoples MD Attending Provider Active Team Status: Inactive Member Role Status Dates Dr. Teresa Boggs DO Primary Care Provider, Referring P rovider Active Dr. Dustin Lemus MD Attending Provider Active Team Status: Active Member Role Status Dates Dr. Teresa Boggs DO Primary Care Provider Active Dr. Carlos Peoples MD Attending Provider, Other Provi jose Active Team Status: Inactive Member Role Status Dates Dr. Teresa Boggs DO Primary Care Provider, Attending P rovider Active Team Status: Inactive Member Role Status Dates Dr. Teresa Boggs DO Primary Care Provider Active Dr. Carlos Peoples MD Attending Provider, Referring P rovider Active Team Status: Active Member Role Status Dates Dr. Teresa Boggs DO Primary Care Provider Active Dr. Dustin Lemus MD Attending Provider, Referring Pro vider Active Team Status: Active Member Role Status Dates Dr. Teresa Boggs DO Primary Care Provider Active Dr. Carlos Peoples MD Attending Provide r, Referring Provider, Other Provider Active Team Status: Inactive Member Role Status Dates Dr. Teresa Boggs DO Primary Care Provider Active Dr. Dustin Lemus MD Attending Provider, Referring Pro vider Active Team Status: Inactive Member Role Status Dates Dr. Teresa Boggs DO Primary Care Provider, Referring P rovider Active Lia Smith TRAILER DRIVER, TRAILER DRIVER-C Attending Provider Active Team Status: Active Member Role Status Dates Dr. Teresa Boggs DO Primary Care Provider Active Dr. Bassam Ray MD Attending Provider Active Team Status: Inactive Member Role Status Dates Dr. Teresa Boggs DO Primary Care Provide r, Attending Provider, Referring Provider Active Team Status: Active Member Role Status Dates Dr. Teresa Boggs DO Primary Care Provider Active Darshana Espinoza Attending Provider Active Team Status: Active Member Role Status Dates Dr. Teresa Boggs DO Primary Care Provider, Referring P rovider Active Dr. Dagoberto Erwin , Attending Provider, Other Prov ider Active Team Status: Inactive Member Role Status Dates Dr. Teresa Boggs DO Primary Care Provider, Referring P rovider Active Dr. Dagoberto Erwin DO Attending Provider Active Team Status: Inactive Member Role Status Dates Dr. Teresa Boggs DO Primary Care Provider, Referring P rovider Active Sharla Dubois TRAILER DRIVER, TRAILER DRIVER-C Attending Provider Active Team Status: Inactive Member Role Status Dates Dr. Teresa Boggs DO Primary Care Provider, Referring P rovider Active Ana Bailey PA, PA Attending Provider Active Team Status: Inactive Member Role Status Dates Dr. Teresa Boggs DO Primary Care Provider Active Sharla Dubois TRAILER DRIVER, TRAILER DRIVER-C Attending Provider, Referring P rovider Active Team Status: Active Member Role Status Dates Dr. Teresa Boggs DO Primary Care Provide r, Attending Provider, Referring Provider Active Restoration Officer Relationship Specialty Start Date End Date Teresa Boggs [address] [facility] [place] [address] PCP - General Family Medicine 05/03/24 Team Status: Active Member Role Status Dates Dr. Teresa Boggs DO Primary Care Provider Active Team Status: Inactive Member Role Status Dates Dr. Teresa Boggs DO Primary Care Provider Active Start: May 10, 2024 End: May 10, 2024 Dr. Teresa Boggs DO Referring Provider Active St art: May 10, 2024 End: May 10, 2024 Carrington Wakefeild TRAILER DRIVER, TRAILER DRIVER-C Attending Provider Active S tart: May 10, 2024 End: May 10, 2024 Team Status: Inactive Member Role Status Dates Dr. Teresa Boggs DO Primary Care Provider Active Start: May 22, 2024 End: May 22, 2024 Dr. Dustin Lemus MD Attending Provider Active S tart: May 22, 2024 End: May 22, 2024 Dr. Dustin Lemus MD Referring Provider Active S tart: May 22, 2024 End: May 22, 2024 Team Status: Inactive Member Role Status Dates Dr. Teresa Boggs DO Primary Care Provider Active Start: June 26, 2024 End: June 27, 2024 Dr. Dustin Lemus MD Attending Provider Active S tart: June 26, 2024 End: June 27, 2024 Dr. Dustin Lemus MD Referring Provider Active S tart: June 26, 2024 End: June 27, 2024 Team Status: Inactive Member Role Status Dates Dr. Teresa Boggs DO Primary Care Provider Active Start: July 20, 2024 End: July 20, 2024 Dr. Teresa Boggs DO Referring Provider Active St art: July 20, 2024 End: July 20, 2024 Quinton ALVARADO PA Attending Provider Active Sta rt: July 20, 2024 End: July 20, 2024 Team Status: Inactive Member Role Status Dates Dr. Teresa Boggs DO Primary Care Provider Active Start: July 26, 2024 End: July 28, 2024 Dr. Dustin Lemus MD Attending Provider Active S tart: July 26, 2024 End: July 28, 2024 Dr. Dustin Lemus MD Referring Provider Active S tart: July 26, 2024 End: July 28, 2024 Team Status: Inactive Member Role Status Dates Dr. Teresa Boggs DO Primary Care Provider Active Start: August 04, 2024 End: August 04, 2024 Dr. Teresa Boggs DO Attending Provider Active St art: August 04, 2024 End: August 04, 2024 Dr. Teresa Boggs DO Referring Provider Active St art: August 04, 2024 End: August 04, 2024 Team Status: Inactive Member Role Status Dates Dr. Teresa Boggs DO Primary Care Provider Active Start: August 23, 2024 End: August 23, 2024 Dr. Teresa Boggs DO Attending Provider Active St art: August 23, 2024 End: August 23, 2024 Dr. Teresa Boggs DO Referring Provider Active St art: August 23, 2024 End: August 23, 2024 Team Status: Inactive Member Role Status Dates Dr. Teresa Boggs DO Primary Care Provider Active Start: August 25, 2024 End: August 25, 2024 Dr. Dustin Lemus MD Attending Provider Active S tart: August 25, 2024 End: August 25, 2024 Dr. Dustin Lemus MD Referring Provider Active S tart: August 25, 2024 End: August 25, 2024 Team Status: Active Member Role Status Dates Dr. Teresa Boggs DO Primary Care Provider Active Start: September 01, 2024 Dr. Dustin Lemus MD Attending Provider Active S tart: September 01, 2024 Dr. Dustin Lemus MD Referring Provider Active S tart: September 01, 2024 Team Status: Inactive Member Role Status Dates Dr. Teresa Boggs DO Primary Care Provider Active Start: September 07, 2024 End: September 07, 2024 Dr. Teresa Boggs DO Referring Provider Active St art: September 07, 2024 End: September 07, 2024 nAa Bailey PA, PA Attending Provider Active Start: September 07, 2024 End: September 07, 2024 Team Status: Inactive Member Role Status Dates Dr. Teresa Boggs DO Primary Care Provider Active Start: September 08, 2024 End: September 08, 2024 Dr. Teresa Boggs DO Attending Provider Active St art: September 08, 2024 End: September 08, 2024 Team Status: Active Member Role Status Dates Dr. Teresa Boggs DO Primary Care Provider Active Start: September 15, 2024 Dr. Dustin Lemus MD Attending Provider Active S tart: September 15, 2024 Dr. Dustin Lemus MD Referring Provider Active S tart: September 15, 2024 Team Status: Inactive Member Role Status Dates Dr. Teresa Boggs DO Primary Care Provider Active Start: September 25, 2024 End: September 25, 2024 Dr. Dustin Lemus MD Attending Provider Active S tart: September 25, 2024 End: September 25, 2024 Dr. Dustin Lemus MD Referring Provider Active S tart: September 25, 2024 End: September 25, 2024 Team Status: Inactive Member Role Status Dates Dr. Teresa Boggs DO Primary Care Provider Active Start: October 03, 2024 End: October 03, 2024 Ana Bailey PA, PA Attending Provider Active Start: October 03, 2024 End: October 03, 2024 Ana Bailey PA, PA Referring Provider Active Start: October 03, 2024 End: October 03, 2024 Team Status: Active Member Role Status Dates Dr. Teresa Boggs DO Primary Care Provider Active Start: October 05, 2024 Dr. Dustin Lemus MD Attending Provider Active S tart: October 05, 2024 Dr. Dustin Lemus MD Referring Provider Active S tart: October 05, 2024 Team Status: Inactive Member Role Status Dates Dr. Teresa Boggs DO Primary Care Provider Active Start: October 17, 2024 End: October 25, 2024 Dr. Dustin Lemus MD Attending Provider Active S tart: October 17, 2024 End: October 25, 2024 Dr. Dustin Lemus MD Referring Provider Active S tart: October 17, 2024 End: October 25, 2024 Team Status: Inactive Member Role Status Dates Dr. Teresa Boggs DO Primary Care Provider Active Start: October 18, 2024 End: October 18, 2024 Dr. Teresa Boggs DO Referring Provider Active St art: October 18, 2024 End: October 18, 2024 CLARISSA KerrC Attending Provider Active Start: October 18, 2024 End: October 18, 2024 Team Status: Active Member Role Status Dates Dr. Teresa Boggs DO Primary Care Provider Active Start: October 26, 2024 Dr. Dustin Lemus MD Attending Provider Active S tart: October 26, 2024 Dr. Dustin Lemus MD Referring Provider Active S tart: October 26, 2024 Team Status: Inactive Member Role Status Dates Dr. Teresa Boggs DO Primary Care Provider Active Start: October 27, 2024 End: October 27, 2024 Dr. Teresa Boggs DO Attending Provider Active St art: October 27, 2024 End: October 27, 2024 Dr. Teresa Boggs DO Referring Provider Active St art: October 27, 2024 End: October 27, 2024 Team Status: Active Member Role Status Dates Dr. Teresa Boggs DO Primary Care Provider Active Start: October 31, 2024 CARLI Kerr Attending Provider Active Start: October 31, 2024 CARLI Kerr Referring Provider Active Start: October 31, 2024 Team Status: Active Member Role Status Dates Dr. Teresa Boggs DO Primary Care Provider Active Start: October 31, 2024 Dr. Dustin Lemus MD Attending Provider Active S tart: October 31, 2024 Dr. Dustin Lemus MD Referring Provider Active S tart: October 31, 2024 Team Status: Inactive Member Role Status Dates Dr. Teresa Boggs DO Primary Care Provider Active Start: October 31, 2024 End: October 31, 2024 Carly Colin NP-C Attending Provider Active Start: October 31, 2024 End: October 31, 2024 Carly Colin NP-C Referring Provider Active Start: October 31, 2024 End: October 31, 2024 Team Status: Active Member Role Status Dates Dr. Teresa Boggs DO Primary Care Provider Active Start: November 02, 2024 Dr. Dustin Lemus MD Attending Provider Active S tart: November 02, 2024 Dr. Dustin Lemus MD Referring Provider Active S tart: November 02, 2024 Team Status: Active Member Role Status Dates Dr. Teresa Boggs DO Primary Care Provider Active Start: November 03, 2024 Carly Colin NP-C Referring Provider Active Start: November 03, 2024 Carly Colin NP-C Other Provider Active St art: November 03, 2024 Dr. Jose Wolfe DO Attending Provider Active S tart: November 03, 2024 Team Status: Active Member Role Status Dates Dr. Teresa Boggs DO Primary Care Provider Active Start: November 21, 2024 Carly Colin NP-C Attending Provider Active Start: November 21, 2024 Carly Colin NP-C Referring Provider Active Start: November 21, 2024 Team Status: Inactive Member Role Status Dates Dr. Teresa Boggs DO Primary Care Provider Active Start: November 23, 2024 End: November 25, 2024 Dr. Dustin Lemus MD Attending Provider Active S tart: November 23, 2024 End: November 25, 2024 Dr. Dustin Lemus MD Referring Provider Active S tart: November 23, 2024 End: November 25, 2024 Team Status: Inactive Member Role Status Dates Dr. Teresa Boggs DO Primary Care Provider Active Start: October 26, 2024 End: November 25, 2024 Dr. Dustin Lemus MD Attending Provider Active S tart: October 26, 2024 End: November 25, 2024 Dr. Dustin Lemus MD Referring Provider Active S tart: October 26, 2024 End: November 25, 2024 Team Status: Inactive Member Role Status Dates Dr. Teresa Boggs DO Primary Care Provider Active Start: November 21, 2024 End: November 21, 2024 Carly Colin NP-C Attending Provider Active Start: November 21, 2024 End: November 21, 2024 Carly Colin NP-C Referring Provider Active Start: November 21, 2024 End: November 21, 2024 Team Status: Active Member Role Status Dates Dr. Teresa Boggs DO Primary Care Provider Active Start: November 21, 2024 Dr. Jose Wolfe DO Attending Provider Active S tart: November 21, 2024 CARLI Kerr Referring Provider Active Start: November 21, 2024 Team Status: Active Member Role Status Dates Dr. Teresa Boggs DO Primary Care Provider Active Start: December 12, 2024 Dr. Dustin Lemus MD Attending Provider Active S tart: December 12, 2024 Dr. Dustin Lemus MD Referring Provider Active S tart: December 12, 2024 Team Status: Inactive Member Role Status Dates Dr. Teresa Boggs DO Primary Care Provider Active Start: December 15, 2024 End: December 15, 2024 Dr. Teresa Boggs DO Referring Provider Active St art: December 15, 2024 End: December 15, 2024 Carly Colin NP-C Attending Provider Active Start: December 15, 2024 End: December 15, 2024 Team Status: Inactive Member Role Status Dates Dr. Teresa Boggs DO Primary Care Provider Active Start: December 15, 2024 End: December 15, 2024 Carly Colin NP-C Attending Provider Active Start: December 15, 2024 End: December 15, 2024 Carly Colin NP-C Referring Provider Active Start: December 15, 2024 End: December 15, 2024 Team Status: Active Member Role Status Dates Dr. Teresa Boggs DO Primary Care Provider Active Start: December 19, 2024 Dr. Dustin Lemus MD Attending Provider Active S tart: December 19, 2024 Dr. Dustin Lemus MD Referring Provider Active S tart: December 19, 2024 Team Status: Active Member Role/Relationship Status Dates Dr. Teresa Boggs DO Primary Care Provider Active Team Status: Inactive Member Role/Relationship Status Dates Dr. Teresa Boggs DO Primary Care Provider Active Start: September 07, 2024 End: September 07, 2024 Dr. Teresa Boggs DO Referring Provider Active St art: September 07, 2024 End: September 07, 2024 Ana ALVARADO, PA Attending Provider Active Start: September 07, 2024 End: September 07, 2024 Team Status: Inactive Member Role/Relationship Status Dates Dr. Teresa Boggs DO Primary Care Provider Active Start: September 08, 2024 End: September 08, 2024 Dr. Teresa Boggs DO Attending Provider Active St art: September 08, 2024 End: September 08, 2024 Team Status: Inactive Member Role/Relationship Status Dates Dr. Teresa Boggs DO Primary Care Provider Active Start: September 25, 2024 End: September 25, 2024 Dr. Dustin Lemus MD Attending Provider Active S tart: September 25, 2024 End: September 25, 2024 Dr. Dustin Lemus MD Referring Provider Active S tart: September 25, 2024 End: September 25, 2024 Team Status: Inactive Member Role/Relationship Status Dates Dr. Teresa Boggs DO Primary Care Provider Active Start: October 03, 2024 End: October 03, 2024 Ana ALVARADO, PA Attending Provider Active Start: October 03, 2024 End: October 03, 2024 Ana Bailey PA, PA Referring Provider Active Start: October 03, 2024 End: October 03, 2024 Team Status: Inactive Member Role/Relationship Status Dates Dr. Teresa Boggs DO Primary Care Provider Active Start: October 17, 2024 End: October 25, 2024 Dr. Dustin Lemus MD Attending Provider Active S tart: October 17, 2024 End: October 25, 2024 Dr. Dustin Lemus MD Referring Provider Active S tart: October 17, 2024 End: October 25, 2024 Team Status: Inactive Member Role/Relationship Status Dates Dr. Teresa Boggs DO Primary Care Provider Active Start: October 18, 2024 End: October 18, 2024 Dr. Teresa Boggs DO Referring Provider Active St art: October 18, 2024 End: October 18, 2024 CARLI Kerr Attending Provider Active Start: October 18, 2024 End: October 18, 2024 Team Status: Inactive Member Role/Relationship Status Dates Dr. Teresa Boggs DO Primary Care Provider Active Start: October 26, 2024 End: November 25, 2024 Dr. Dustin Lemus MD Attending Provider Active S tart: October 26, 2024 End: November 25, 2024 Dr. Dustin Lemus MD Referring Provider Active S tart: October 26, 2024 End: November 25, 2024 Team Status: Inactive Member Role/Relationship Status Dates Dr. Teresa Boggs DO Primary Care Provider Active Start: October 27, 2024 End: October 27, 2024 Dr. Teresa Boggs DO Attending Provider Active St art: October 27, 2024 End: October 27, 2024 Dr. Teresa Boggs DO Referring Provider Active St art: October 27, 2024 End: October 27, 2024 Team Status: Inactive Member Role/Relationship Status Dates Dr. Teresa Boggs DO Primary Care Provider Active Start: October 31, 2024 End: October 31, 2024 CARLI Kerr Attending Provider Active Start: October 31, 2024 End: October 31, 2024 CARLI Kerr Referring Provider Active Start: October 31, 2024 End: October 31, 2024 Team Status: Active Member Role/Relationship Status Dates Dr. Teresa Boggs DO Primary Care Provider Active Start: November 03, 2024 CARLI Kerr Referring Provider Active Start: November 03, 2024 CARLI Kerr Other Provider Active St art: November 03, 2024 Dr. Jose Wolfe , Attending Provider Active S tart: November 03, 2024 Team Status: Inactive Member Role/Relationship Status Dates Dr. Teresa Boggs DO Primary Care Provider Active Start: November 21, 2024 End: November 21, 2024 CARLI Kerr Attending Provider Active Start: November 21, 2024 End: November 21, 2024 Carly M Rufener , TRAILER DRIVER-C Referring Provider Active Start: November 21, 2024 End: November 21, 2024 Team Status: Active Member Role/Relationship Status Dates Dr. Teresa Boggs DO Primary Care Provider Active Start: November 21, 2024 Dr. Jose Wolfe DO Attending Provider Active S tart: November 21, 2024 CARLI Kerr Referring Provider Active Start: November 21, 2024 Team Status: Inactive Member Role/Relationship Status Dates Dr. Teresa Boggs DO Primary Care Provider Active Start: November 23, 2024 End: November 25, 2024 Dr. Dustin Lemus MD Attending Provider Active S tart: November 23, 2024 End: November 25, 2024 Dr. Dustin Lemus MD Referring Provider Active S tart: November 23, 2024 End: November 25, 2024 Team Status: Inactive Member Role/Relationship Status Dates Dr. Teresa Boggs DO Primary Care Provider Active Start: December 15, 2024 End: December 15, 2024 Dr. Teresa Boggs DO Referring Provider Active St art: December 15, 2024 End: December 15, 2024 CARLI Kerr Attending Provider Active Start: December 15, 2024 End: December 15, 2024 Team Status: Inactive Member Role/Relationship Status Dates Dr. Teresa Boggs DO Primary Care Provider Active Start: December 15, 2024 End: December 15, 2024 CARLI Kerr Attending Provider Active Start: December 15, 2024 End: December 15, 2024 CARLI Kerr Referring Provider Active Start: December 15, 2024 End: December 15, 2024 Team Status: Inactive Member Role/Relationship Status Dates Dr. Teresa Boggs DO Primary Care Provider Active Start: December 21, 2024 End: December 25, 2024 Dr. Dustin Lemus MD Attending Provider Active S tart: December 21, 2024 End: December 25, 2024 Dr. Dustin Lemus MD Referring Provider Active S tart: December 21, 2024 End: December 25, 2024 Team Status: Inactive Member Role/Relationship Status Dates Dr. Teresa Boggs DO Primary Care Provider Active Start: September 25, 2024 End: September 25, 2024 Dr. Dustin Lemus MD Attending Provider Active S tart: September 25, 2024 End: September 25, 2024 Dr. Dustin Lemus MD Referring Provider Active S tart: September 25, 2024 End: September 25, 2024 Team Status: Inactive Member Role/Relationship Status Dates Dr. Teresa Boggs DO Primary Care Provider Active Start: October 03, 2024 End: October 03, 2024 Ana Bailey PA PA Attending Provider Active Start: October 03, 2024 End: October 03, 2024 Ana Bailey PA, PA Referring Provider Active Start: October 03, 2024 End: October 03, 2024 Team Status: Inactive Member Role/Relationship Status Dates Dr. Teresa Boggs DO Primary Care Provider Active Start: October 17, 2024 End: October 25, 2024 Dr. Dustin Lemus MD Attending Provider Active S tart: October 17, 2024 End: October 25, 2024 Dr. Dustin Lemus MD Referring Provider Active S tart: October 17, 2024 End: October 25, 2024 Team Status: Inactive Member Role/Relationship Status Dates Dr. Teresa Boggs DO Primary Care Provider Active Start: October 18, 2024 End: October 18, 2024 Dr. Teresa Boggs DO Referring Provider Active St art: October 18, 2024 End: October 18, 2024 CLARISSA KerrC Attending Provider Active Start: October 18, 2024 End: October 18, 2024 Team Status: Inactive Member Role/Relationship Status Dates Dr. Teresa Boggs DO Primary Care Provider Active Start: October 26, 2024 End: November 25, 2024 Dr. Dustin Lemus MD Attending Provider Active S tart: October 26, 2024 End: November 25, 2024 Dr. Dustin Lemus MD Referring Provider Active S tart: October 26, 2024 End: November 25, 2024 Team Status: Inactive Member Role/Relationship Status Dates Dr. Teresa Boggs DO Primary Care Provider Active Start: October 27, 2024 End: October 27, 2024 Dr. Teresa Boggs DO Attending Provider Active St art: October 27, 2024 End: October 27, 2024 Dr. Teresa Boggs DO Referring Provider Active St art: October 27, 2024 End: October 27, 2024 Team Status: Inactive Member Role/Relationship Status Dates Dr. Teresa Boggs DO Primary Care Provider Active Start: October 31, 2024 End: October 31, 2024 Carly Colin TRAILER DRIVER-C Attending Provider Active Start: October 31, 2024 End: October 31, 2024 Carly Colin TRAILER DRIVER-C Referring Provider Active Start: October 31, 2024 End: October 31, 2024 Team Status: Active Member Role/Relationship Status Dates Dr. Teresa Boggs DO Primary Care Provider Active Start: November 03, 2024 Carly Colin TRAILER DRIVER-C Referring Provider Active Start: November 03, 2024 Carly Colin NP-C Other Provider Active St art: November 03, 2024 Dr. Jose Wolfe , Attending Provider Active S tart: November 03, 2024 Team Status: Inactive Member Role/Relationship Status Dates Dr. Teresa Boggs DO Primary Care Provider Active Start: November 21, 2024 End: November 21, 2024 Carly Colin TRAILER DRIVER-C Attending Provider Active Start: November 21, 2024 End: November 21, 2024 Carly Colin TRAILER DRIVER-C Referring Provider Active Start: November 21, 2024 End: November 21, 2024 Team Status: Active Member Role/Relationship Status Dates Dr. Teresa Boggs DO Primary Care Provider Active Start: November 21, 2024 Dr. Jose Wolfe , Attending Provider Active S tart: November 21, 2024 Carly Colin NP-C Referring Provider Active Start: November 21, 2024 Team Status: Inactive Member Role/Relationship Status Dates Dr. Teresa Boggs DO Primary Care Provider Active Start: November 23, 2024 End: November 25, 2024 Dr. Dustin Lemus MD Attending Provider Active S tart: November 23, 2024 End: November 25, 2024 Dr. Dustin Lemus MD Referring Provider Active S tart: November 23, 2024 End: November 25, 2024 Team Status: Inactive Member Role/Relationship Status Dates Dr. Teresa Boggs DO Primary Care Provider Active Start: December 15, 2024 End: December 15, 2024 Dr. Teresa Boggs DO Referring Provider Active St art: December 15, 2024 End: December 15, 2024 Carly Colin NP-C Attending Provider Active Start: December 15, 2024 End: December 15, 2024 Team Status: Inactive Member Role/Relationship Status Dates Dr. Teresa Boggs DO Primary Care Provider Active Start: December 15, 2024 End: December 15, 2024 Carly Colin NP-C Attending Provider Active Start: December 15, 2024 End: December 15, 2024 Carly Colin NP-C Referring Provider Active Start: December 15, 2024 End: December 15, 2024 Team Status: Inactive Member Role/Relationship Status Dates Dr. Teresa Boggs DO Primary Care Provider Active Start: December 21, 2024 End: December 25, 2024 Dr. Dustin Lemus MD Attending Provider Active S tart: December 21, 2024 End: December 25, 2024 Dr. Dustin Lemus MD Referring Provider Active S tart: December 21, 2024 End: December 25, 2024 Team Status: Inactive Member Role/Relationship Status Dates Dr. Teresa Boggs DO Primary Care Provider Active Start: January 18, 2025 End: January 18, 2025 Carly Colin NP-C Attending Provider Active Start: January 18, 2025 End: January 18, 2025 Carly Colin NP-C Referring Provider Active Start: January 18, 2025 End: January 18, 2025 Team Status: Active Member Role/Relationship Status Dates Dr. Teresa Boggs DO Primary Care Provider Active Start: January 18, 2025 Dr. Dustin Lemus MD Attending Provider Active S tart: January 18, 2025 Team Status: Active Member Role/Relationship Status Dates Dr. Teresa Boggs DO Primary Care Provider Active Start: January 23, 2025 Dr. Dustin Lemus MD Attending Provider Active S tart: January 23, 2025 Dr. Dustin Lemus MD Referring Provider Active S tart: January 23, 2025 Team Status: Inactive Member Role/Relationship Status Dates Dr. Teresa Boggs DO Primary Care Provider Active Start: October 03, 2024 End: October 03, 2024 Ana ALVARADO, PA Attending Provider Active Start: October 03, 2024 End: October 03, 2024 Ana ALVARADO PA Referring Provider Active Start: October 03, 2024 End: October 03, 2024 Team Status: Inactive Member Role/Relationship Status Dates Dr. Teresa Boggs DO Primary Care Provider Active Start: October 17, 2024 End: October 25, 2024 Dr. Dustin Lemus MD Attending Provider Active S tart: October 17, 2024 End: October 25, 2024 Dr. Dustin Lemus MD Referring Provider Active S tart: October 17, 2024 End: October 25, 2024 Team Status: Inactive Member Role/Relationship Status Dates Dr. Teresa Boggs DO Primary Care Provider Active Start: October 18, 2024 End: October 18, 2024 Dr. Teresa Boggs DO Referring Provider Active St art: October 18, 2024 End: October 18, 2024 CARLI Kerr Attending Provider Active Start: October 18, 2024 End: October 18, 2024 Team Status: Inactive Member Role/Relationship Status Dates Dr. Teresa Boggs DO Primary Care Provider Active Start: October 26, 2024 End: November 25, 2024 Dr. Dustin Lemus MD Attending Provider Active S tart: October 26, 2024 End: November 25, 2024 Dr. Dustin Lemus MD Referring Provider Active S tart: October 26, 2024 End: November 25, 2024 Team Status: Inactive Member Role/Relationship Status Dates Dr. Teresa Boggs DO Primary Care Provider Active Start: October 27, 2024 End: October 27, 2024 Dr. Teresa Boggs DO Attending Provider Active St art: October 27, 2024 End: October 27, 2024 Dr. Teresa Boggs DO Referring Provider Active St art: October 27, 2024 End: October 27, 2024 Team Status: Inactive Member Role/Relationship Status Dates Dr. Teresa Boggs DO Primary Care Provider Active Start: October 31, 2024 End: October 31, 2024 CARLI Kerr Attending Provider Active Start: October 31, 2024 End: October 31, 2024 Carly Colin NP-C Referring Provider Active Start: October 31, 2024 End: October 31, 2024 Team Status: Active Member Role/Relationship Status Dates Dr. Teresa Boggs DO Primary Care Provider Active Start: November 03, 2024 Carly Colin NP-C Referring Provider Active Start: November 03, 2024 CARLI Kerr Other Provider Active St art: November 03, 2024 Dr. Jose Wolfe DO Attending Provider Active S tart: November 03, 2024 Team Status: Inactive Member Role/Relationship Status Dates Dr. Teresa Boggs DO Primary Care Provider Active Start: November 21, 2024 End: November 21, 2024 Carly Colin NP-Sean Attending Provider Active Start: November 21, 2024 End: November 21, 2024 Carly Colin NP-C Referring Provider Active Start: November 21, 2024 End: November 21, 2024 Team Status: Active Member Role/Relationship Status Dates Dr. Teresa Boggs DO Primary Care Provider Active Start: November 21, 2024 Dr. Jose Wolfe DO Attending Provider Active S tart: November 21, 2024 Carly Colin NP-Sean Referring Provider Active Start: November 21, 2024 Team Status: Inactive Member Role/Relationship Status Dates Dr. Teresa Boggs DO Primary Care Provider Active Start: November 23, 2024 End: November 25, 2024 Dr. Dustin Lemus MD Attending Provider Active S tart: November 23, 2024 End: November 25, 2024 Dr. Dustin Lemus MD Referring Provider Active S tart: November 23, 2024 End: November 25, 2024 Team Status: Inactive Member Role/Relationship Status Dates Dr. Teresa Boggs DO Primary Care Provider Active Start: December 15, 2024 End: December 15, 2024 Dr. Teresa Boggs DO Referring Provider Active St art: December 15, 2024 End: December 15, 2024 Carly Coiln NP-C Attending Provider Active Start: December 15, 2024 End: December 15, 2024 Team Status: Inactive Member Role/Relationship Status Dates Dr. Teresa Boggs DO Primary Care Provider Active Start: December 15, 2024 End: December 15, 2024 CARLI Kerr Attending Provider Active Start: December 15, 2024 End: December 15, 2024 CARLI Kerr Referring Provider Active Start: December 15, 2024 End: December 15, 2024 Team Status: Inactive Member Role/Relationship Status Dates Dr. Teresa Boggs DO Primary Care Provider Active Start: December 21, 2024 End: December 25, 2024 Dr. Dustin Lemus MD Attending Provider Active S tart: December 21, 2024 End: December 25, 2024 Dr. Dustin Lemus MD Referring Provider Active S tart: December 21, 2024 End: December 25, 2024 Team Status: Inactive Member Role/Relationship Status Dates Dr. Teresa Boggs DO Primary Care Provider Active Start: January 18, 2025 End: January 18, 2025 CARLI Kerr Attending Provider Active Start: January 18, 2025 End: January 18, 2025 CARLI Kerr Referring Provider Active Start: January 18, 2025 End: January 18, 2025 Team Status: Active Member Role/Relationship Status Dates Dr. Teresa Boggs DO Primary Care Provider Active Start: January 18, 2025 Dr. Dustin Lemus MD Attending Provider Active S tart: January 18, 2025 Team Status: Inactive Member Role/Relationship Status Dates Dr. Teresa Boggs DO Primary Care Provider Active Start: January 25, 2025 End: January 25, 2025 Dr. Dustin Lemus MD Attending Provider Active S tart: January 25, 2025 End: January 25, 2025 Dr. Dustin Lemus MD Referring Provider Active S tart: January 25, 2025 End: January 25, 2025 Scheduled Active and Recently Administ ered Medications (unrecognized section and content) Medication Order 05/02/2024 05/03/2024 05/04/2024 amLODIPine (Norvasc) tablet 10 mg 10 mg, Oral, Daily, First dose on Wed05/02/24 at 0900 0744 (Given - Provider: Nimo Mchugh RN) 0905 (Given - Provider: Tahmina Stockton RN) 0917 (Given - Provider: Tahmina Stockton RN) aspirin EC tablet 81 mg 81 mg, Oral, Daily, First dose on Wed05/02/24 at 0900, Do not crush, chew, or split. 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 0744 (Given - Provider: Nimo Mchugh RN) 0905 (Given - Provider: Tahmina Stockton RN) 0916 (Given - Provider: Tahmina Stockton RN) heparin injection 4,000 Units (COMPLETED) 4,000 Units, IntraVENous, Once, On Wed05/02/24 at 0300, For 1 dose, Initial one time bolus 0432 (Given - Provider: Ketty Trotter RN) isosorbide mononitrate ER (Imdur) 24 hr tablet 30 mg 30 mg, Oral, 2 times daily, First dose on Wed05/02/24 at 0600, Do not chew or crush ER tablets; may be divided in half. Due to insoluble matrix embedding, ER tablets that are scored may be split., On hold since Wed05/02/2024 at 1634 until manually unheld 0501 (Given - Provider: Ketty Trotter RN)1500 (Not Given - Provider: Tahmina Stockton RN - Reason: Other - Comment: held by provider)1634 (Held by provider - Provider: Jeison Sheriff MD - Reason: Other) 0600 (Dose Auto Held - Provider: Jeison Sheriff MD)1500 (Dose Auto Held - Provider: Jeison Sheriff MD) 0600 (Dose Auto Held - Provider: Jeison Sheriff MD)1649 (Unheld by provider - Provider: Automatic Discharge Provider) lactated ringers bolus 1,000 mL (COMPLETED) 1,000 mL, IntraVENous, at 500 mL/hr, Administer over 2 Hours, Once, On Wed05/02/24 at 1730, For 1 dose 1730 (New Bag - Provider: Tahmina Stockton RN)1930 (Stopped - Provider: Rebecca Ramírez RN) levothyroxine (Synthroid, Levoxyl) tablet 50 mcg 50 mcg, Oral, Daily before breakfast, First dose on Wed05/02/24 at 0600, Tube feeding (TF) interaction, obtain physician order to manage, recommend holding TF for 30 minutes before and after dose. 0501 (Given - Provider: Ketty Trotter RN) 0550 (Given - Provider: Rebecca Ramírez RN) 0510 (Given - Provider: Ulices Rodriguez, KATIE) metoprolol tartrate (Lopressor) tablet 25 mg 25 mg, Oral, 2 times daily, First dose on Wed05/02/24 at 0900 0744 (Given - Provider: Nimo Mchugh RN)2120 (Given - Provider: Rebecca Ramírez RN) 0905 (Given - Provider: Tahmina Stockton, KATIE)2112 (Given - Provider: Ulices Rodriguez, KATIE) 0917 (Given - Provider: Tahmina Stockton, KATIE) nitroglycerin (Nitrodur) 0.6 MG/HR patch 1 patch (COMPLETED) 1 patch, TransDERmal, Administer over 12 Hours, Once, On Wed05/02/24 at 0930, For 1 dose 1052 (Medication Applied - Provider: Nimo Mchugh RN)2252 (Medication Removed - Provider: Rebecca Ramírez RN) pantoprazole (ProtoNix) 40 mg in sodium chloride (PF) 0.9 % 10 mL injection(Linked Group 1) 40 mg, IntraVENous, Administer over 2 Minutes, Nightly, First dose on Wed05/02/24 at 2100, Give only if unable to tolerate po. 2118 (Given - Provider: Rebecca Ramírez RN) 2111 (Given - Provider: Ulices Rodriguez, KATIE) pantoprazole (ProtoNix) EC tablet 20 mg(Linked Group 1) 20 mg, Oral, Nightly, First dose on Wed05/02/24 at 2099, Do not crush, chew, or split. 2118 (See Alternative - Provider: Rebecca Ramírez RN) 2111 (See Alternative - Provider: Ulices Rodriguez RN) potassium chloride (Klor-Con) packet 40 mEq (COMPLETED) 40 mEq, Oral, Once, On Wed05/02/24 at 2144, For 1 dose, Dissolve each packet in 4 ounces of water = 5 mEq per 1 oz fluid., Indications: Hypokalemia 2201 (Given - Provider: Rebecca Ramírez RN) rosuvastatin (Crestor) tablet 40 mg 40 mg, Oral, Nightly, First dose on Wed05/02/24 at 2099 2118 (Given - Provider: Rebecca Ramírez RN) 2111 (Given - Provider: Ulices Rodriguez RN) spironolactone (Aldactone) tablet 25 mg 25 mg, Oral, Daily, First dose on Wed05/02/24 at 0900 0744 (Given - Provider: Nimo Mchugh RN) 09 (Given - Provider: Tahmina Stockton RN) 899 (Given - Provider: Tahmina Stockton RN) ticagrelor (Brilinta) tablet 180 mg (COMPLETED)(Linked Group 2) 180 mg, Oral, Once, On Wed05/02/24 at 0900, For 1 dose 0951 (Given - Provider: Nimo Mchugh RN) ticagrelor (Brilinta) tablet 90 mg(Linked Group 2) 90 mg, Oral, 2 times daily, First dose on Wed05/02/24 at 2100, For 365 days 2119 (Given - Provider: Rebecca Ramírez RN) 904 (Given - Provider: Tahmina Stockton, KATIE)2111 (Given - Provider: Ulices Rodriguez RN) 09 (Given - Provider: Tahmina Stockton RN) Continuous Medication Order 05/02/2024 05/03/2024 05/04/2024 heparin 25,000 units in dextrose 5% 250mL infusion (premix) 5-30 Units/kg/hr 75.9 kg (3.795-22.77 mL/hr, rounded to 3.8-22.8 mL/hr), IntraVENous, Continuous, Starting on Wed05/02/24 at 0300, LOW Dose Heparin Weight Based Dosing (CAD/STEMI/NSTEMI/AFIB/ECMO) >>>>Initial dose: 12 units/kg/hr<<<< Subsequent dosing: aPTT < 30 Heparin Full re-bolus Increase infusion by 2 units/kg/hr - notify prescriber; aPTT 30-49.9 Heparin Half re-bolus Increase infusion by 1 unit/kg/hr; aPTT 50-70.9 No bolus No change; aPTT 71-95.9 Hold heparin for 60 min Decrease infusion by 1 unit/kg/hr; aPTT > 95.9 Hold heparin for 60 min Decrease infusion by 2 units/kg/hr - notify prescriber; Check aPTT: 6 hours after initiation and 6 hours after every dose change - every 12 hrs x 1 day after 2 consecutive therapeutic aPTT - daily after every 12 hrs x 1 day is complete. 0433 (New Bag - Provider: Ketty Trotter RN)0710 (Handoff - Provider: Nimo Mchugh RN) PRN Medication Order 05/02/2024 05/03/2024 05/04/2024 acetaminophen (Tylenol) suppository 650 mg(Linked Group 3) 650 mg, Rectal, Every 6 hours PRN, mild pain (1-3), fever, For temp greater than 100.4 F (38 C), Starting on Wed05/02/24 at 0204, Administer if oral route cannot be used. Maximum dose of acetaminophen is 4000 mg from all sources in 24 hours. 2119 (See Alternative - Provider: Rebecca Ramírez RN) acetaminophen (Tylenol) tablet 650 mg(Linked Group 3) 650 mg, Oral, Every 6 hours PRN, mild pain (1-3), fever, For temp greater than 100.4 F (38 C), Starting on Wed05/02/24 at 0204, Maximum dose of acetaminophen is 4000 mg from all sources in 24 hours. 2120 (Given - Provider: Rebecca Ramírez RN) aluminum & magnesium hydroxide-simethicone (Mylanta) 200-200-20 MG/5ML oral suspension 10 mL 10 mL, Oral, PRN, indigestion, heartburn, Starting on Wed05/02/24 at 1836 1852 (Given - Provider: Tiffanie Manzano, KATIE) fentaNYL (Sublimaze) injection (CANCELED) IntraVENous, As needed, Starting on Wed05/02/24 at 1333, Intraprocedure 1333 (Given - Provider: Ernie Ray RN) heparin injection 2,000 Units 2,000 Units, IntraVENous, As needed, heparin dosing algorithm, Starting on Wed05/02/24 at 0255, Half dose re-bolus based on pharmacy algorithm heparin injection 4,000 Units 4,000 Units, IntraVENous, As needed, per heparin dosing algorithm, Starting on Wed05/02/24 at 0255, Full dose re-bolus based on pharmacy algorithm heparin injection (CANCELED) IntraVENous, As needed, Starting on Wed05/02/24 at 1334, Intraprocedure 1334 (Given - Provider: Ernie Ray RN)1407 (Given - Provider: Ernie Ray RN)1447 (Given - Provider: Ernie Ray RN) iopamidol (Isovue-300) 61 % injection (CANCELED) As needed, Starting on Wed05/02/24 at 1534, Intraprocedure 1534 (Given - Provider: Braeden Mckeon MD) lidocaine (Xylocaine) 1 % injection (CANCELED) As needed, Starting on Wed05/02/24 at 1317, Intraprocedure 1317 (Given - Provider: Madeleine Mcnair MD) midazolam (Versed) injection (CANCELED) IntraVENous, As needed, Starting on Wed05/02/24 at 1348, Intraprocedure 1348 (Given - Provider: Ernie Ray RN) nitroglycerin (Nitrostat) SL tablet 0.4 mg 0.4 mg, SubLINGual, Every 5 min PRN, chest pain, Starting on Wed05/02/24 at 0206, Give every 5 minutes as needed for chest pain to a maximum of 3 doses. Notify MD and obtain EKG if no relief after 3 doses or chest pain recurs. HOLD and notify MD if SBP less than 90 mmHg. Do not give if nitroglycerin infusion running concurrently. Do not give within 24 hours of sildenafil citrate (Viagra) or vardenafil (Levitra) use, or within 48 hours of tadalafil (Cialis) use. 0441 (Given - Provider: Ketty Trotter, RN)0451 (Given - Provider: Ketty Trotter, RN)1925 (Given - Provider: Tahmina Stockton RN) NITROGLYCERIN 100 MCG / ML IN D5W VIAL FOR INTRA-OP/INTRAPROCEDURE USE (CANCELED) As needed, Starting on Wed05/02/24 at 1527, Intraprocedure 1527 (Given - Provider: Braeden Mckeon MD) NOREPINEPHRINE IV SYRINGE 160 MCG/10 ML (CHARGE ONLY) (CANCELED) As needed, Starting on Wed05/02/24 at 1453, Intraprocedure 1453 (Given - Provider: Ernie Ray RN)1454 (Given - Provider: Ernie Ray RN)1456 (Given - Provider: Ernie Ray RN) ondansetron (Zofran) injection 4 mg(Linked Group 4) 4 mg, IntraVENous, Every 6 hours PRN, nausea, vomiting, Starting on Wed05/02/24 at 0204, Administer if oral route cannot be used. ondansetron ODT (Zofran-ODT) disintegrating tablet 4 mg(Linked Group 4) 4 mg, Oral, Every 8 hours PRN, nausea, vomiting, Starting on Wed05/02/24 at 0204, Patient should allow tablet to dissolve on tongue. Do not remove from blister pack until just before administering. perflutren protein A microsphere (Optison) 3 mL in sodium chloride (PF) 0.9 % 10 mL IV syringe 0-10 mL, IntraVENous, IMG once PRN, other, Suboptimal echo image, Starting on Wed05/02/24 at 0815, For 1 dose, CV Procedural Medications, Administer via slow IVP for suboptimal echocardiogram enhancement. May administer as divided doses to reach optimal image enhancement Phenylephrine HCl (Pressors) 1 MG/10ML injection 0.2 mg 0.2 mg, IntraVENous, Every 5 min PRN, for hypotension, Starting on Wed05/02/24 at 1726, For 3 doses, Provider to be at bedside or actively in route to bedside. 1730 (Given - Provider: Tahmina Stockton RN) polyethylene glycol (PEG) 3350 (Miralax) packet 17 g 17 g, Oral, Daily PRN, constipation, Starting on Wed05/02/24 at 0204, 1st line for treatment of constipation - give scheduled if no bowel movement in past 24 hours. Linked Groups Order Group 1: pantoprazole (ProtoNix) EC tablet 20 mgJump to med 20 mg, Oral, Nightly, First dose on Wed05/02/24 at 2100, Do not crush, chew, or split. Or pantoprazole (ProtoNix) 40 mg in sodium chloride (PF) 0.9 % 10 mL injectionJump to med 40 mg, IntraVENous, Administer over 2 Minutes, Nightly, First dose on Wed05/02/24 at 2100, Give only if unable to tolerate po. Group 2: ticagrelor (Brilinta) tablet 180 mg (COMPLETED)Jump to med 180 mg, Oral, Once, On Wed05/02/24 at 0900, For 1 dose Followed by ticagrelor (Brilinta) tablet 90 mgJump to med 90 mg, Oral, 2 times daily, First dose on Wed05/02/24 at 2100, For 365 days Group 3: acetaminophen (Tylenol) tablet 650 mgJump to med 650 mg, Oral, Every 6 hours PRN, mild pain (1-3), fever, For temp greater than 100.4 F (38 C), Starting on Wed05/02/24 at 0204, Maximum dose of acetaminophen is 4000 mg from all sources in 24 hours. Or acetaminophen (Tylenol) suppository 650 mgJump to med 650 mg, Rectal, Every 6 hours PRN, mild pain (1-3), fever, For temp greater than 100.4 F (38 C), Starting on Wed05/02/24 at 0204, Administer if oral route cannot be used. Maximum dose of acetaminophen is 4000 mg from all sources in 24 hours. Group 4: ondansetron ODT (Zofran-ODT) disintegrating tablet 4 mgJump to med 4 mg, Oral, Every 8 hours PRN, nausea, vomiting, Starting on Wed05/02/24 at 0204, Patient should allow tablet to dissolve on tongue. Do not remove from blister pack until just before administering. Or ondansetron (Zofran) injection 4 mgJump to med 4 mg, IntraVENous, Every 6 hours PRN, nausea, vomiting, Starting on Wed05/02/24 at 0204, Administer if oral route cannot be used. INFORMATION SOURCE (unrecogn ized section and content) DATE CREATED AUTHOR 05/06/2024 [facility] DATE CREATED AUTHOR [facility] 02/04/2025 [facility] FOR RECORDS PERTAINING TO PATIENTS WHO ARE [...] BE BASED ON THE PRIMARY CLINICAL RECORDS. [email or web address] provides no warranty or guarantee of the accuracy or completeness of information in this document.
--- NOTE | 2025-02-06 07:14 | BI_ITS ---
EXAM: SCRN MAMM (CAD)W/CONNOR BILAT DATE: 02/06/2025 CLINICAL HISTORY: F, Age 69 y/o , SCREENING TECHNIQUE: SCRN MAMM (CAD)W/CONNOR BILAT COMPARISON: Prior exam(s) dated 02/04/2024, 12/31/2022, 12/26/2021. FINDINGS: TISSUE DENSITY: The breasts are almost entirely fatty. Bilateral Breast Mammographic Findings: No significant masses, calcifications or other abnormalities are identified. BI/SCRN MAMM (CAD)W/CONNOR BILAT IMPRESSION: There is no mammographic evidence of malignancy. OVERALL FINAL ASSESSMENT BI-RADS 1: NEGATIVE. RECOMMENDATION: Routine annual follow-up in 1 Year A letter with findings and recommendations will be mailed to the patient. Reading Location: [id number]
== END | disposition home or self-care (01) ==
LOC: OPBI 07:08
PROVIDERS: PCP Family Medicine; Referring Provider Family Medicine; Visit Provider Family Medicine
DX: Z12.31 Encounter for screening mammogram for malignant neoplasm of breast (principal)
CPT/HCPCS: 77063; 77067

== ENCOUNTER → 2025-02-12 | Outpatient (CLI) | payer MEDICARE, MEDICAID, SELFPAY ==
[2024-09-14 09:52] VITALS: BMI 28.9
--- OUTSIDE RECORDS SUMMARY | 2025-02-12 05:44 | XMS RPT_ITS | CCD ---
Author Organization [facility] Care Team Providers Care Guide Changer Name Role Phone Lyons, Sejal Unavailable Unavailable Roof CITRIX ADMINISTRATOR, Carrington H Unavailable Roof CITRIX ADMINISTRATOR, Carrington H Unavailable Lyons, Sejal Unavailable Unavailable Lyons, Sejal Unavailable Unavailable Lyons, Sejal Unavailable Unavailable Moises Muniz (Res) Primary Care Provider Unavail able Dr. Teresa Boggs Primary Care Provider [phone] Dr. Teresa Boggs Referring Provider [phone] Silvino CITRIX ADMINISTRATOR, CITRIX ADMINISTRATOR-C Sharla Attending Provider Dr. Teresa Boggs Primary Care Provider [phone] Dr. Teresa Boggs Referring Provider Dr. Christian Reynolds Attending Provider [phone] Dustin Lemus Attending Provider Dr. Carlos Peoples Attending Provider [phone] Dr. Carlos Peoples Other Provider Dr. Carlos Peoples Referring Provider Dr. Carlos Peoples Referring Provider Luis HOWE, CITRIX ADMINISTRATOR-C Lia Rizo Attending Provider Dr. Teresa Boggs Primary Care Provider Dr. Teresa Boggs Referring Provider [phone] Carlos Peoples Attending Provider [phone] Dustin Lemus Attending Provider 1([facility])[phone] Carlos Peoples Referring Provider 1([phone] Dr. Carlos Peoples Other Provider Luis CITRIX ADMINISTRATOR, CITRIX ADMINISTRATOR-C Lia Rizo Attending Provider Flakita, Dr. Moore Primary Care Provider Flakita, Dr. Moore Referring Provider Dr. Carlos Peoples Attending Provider [phone] Darshana Espinoza Attending Provider Unavailable Friend, Dr. Arenas Attending Provider [phone] Rip, Dr. Arenas Other Provider [phone] Flakita, Dr. Moore Primary Care Provider Flakita, Dr. Moore Referring Provider Silvino CITRIX ADMINISTRATOR, CITRIX ADMINISTRATOR-C Sharla Attending Provider Flakita, Dr. Moore Primary Care Provider [phone] Flakita, Dr. Moore Referring Provider JENNY Marcano Attending Provider Dr. Teresa Boggs Primary Care Provider [phone] Teresa Boggs Referring Provider JENNY Marcano Attending Provider Teresa Boggs Primary Care Provider NATALY TOVAR Admitting Unavailable DAVID PATEL Attending Unavailable TERESA BOGGS Primary Care Unavailable DUSTIN LEMUS Referring Unavailable Dr. Teresa Boggs DO Primary Care Provider [phone] Dr. Teresa Boggs DO Referring Provider Ashu HOWE-Carrington Estrada Attending Provider Dr. Dustin Lemus MD Attending Provider [phone] Dr. Dustin Lemus MD Referring Provider [phone] Quinton Garcia Attending Provider [phone] Teresa Boggs DO Attending Provider [phone] Teresa Boggs DO Primary Care Provider Flakita WILLIS, Dr. Moore Referring Provider Ana Marcano Attending Provider Flakita WILLIS, Dr. Moore Primary Care Provider [phone] Allan METCALF, Dr. Chan Attending Provider Allan METCALF, Dr. Chan Referring Provider Ana Marcano Referring Provider Flakita WILLIS, Dr. Moore Primary Care Provider Allan METCALF, Dr. Chan Attending Provider Allan METCALF, Dr. Chan Referring Provider Dixie CITRIX ADMINISTRATOR-C, Carly Momin Attending Provider Dixie CITRIX ADMINISTRATOR-C, Carly Momin Referring Provider Dixie CITRIX ADMINISTRATOR-C, Carly Momin Other Provider Aiden WILLIS, Dr. Garcia Attending Provider Flakita WILLIS, Dr. Moore Primary Care Provider [phone] Flakita WILLIS, Dr. Moore Referring Provider Dr. Dustin Lemus MD Attending Provider Dr. Dustin Lemus MD Referring Provider Flakita WILLIS, Dr. Moore Primary Care Provider [phone] Flakita WILLIS, Dr. Moore Attending Provider Flakita DO, Dr. Moore Referring Provider Flakita WILLIS, Dr. Moore Primary Care Provider Flakita WILLIS, Dr. Moore Referring Provider Flakita WILLIS, Dr. Moore Attending Provider Dr. Dustin Lemus MD Attending Provider Dr. Dustin Lemus MD Referring Provider Flakita WILLIS, Dr. Moore Primary Care Provider Ana Marcano Attending Provider Flakita WILLIS, Dr. Moore Referring Provider Flakita WILLIS, Dr. Moore Attending Provider [phone] Flakita WILLIS, Dr. Moore Primary Care Provider Allan METCALF, Dr. Chan Attending Provider [phone] Allan METCALF, Dr. Chan Referring Provider [phone] Malys, Teresa Referring Unavailable Malys, Teresa Attending Unavailable Malys, Teresa Primary Care Unavailable Malys, Teresa Attending Unavailable Malys, Teresa Primary Care Unavailable Malys, Teresa Primary Care Unavailable Allan, Dustin Referring Unavailable Allan, Prescott Attending Unavailable Malys, Teresa Primary Care Unavailable Allan, Dustin Attending Unavailable Allan, Dustin Admitting Unavailable Allan, Dustin Referring Unavailable Malys, Teresa Primary Care Unavailable Allan, Dustin Attending Unavailable Allan, Prescott Referring Unavailable Malys, Teresa Primary Care Unavailable Allan, Prescott Attending Unavailable Allan, Prescott Referring Unavailable Malys, Teresa Primary Care Unavailable Carly Colin Referring Unavailable Jose Wolfe Attending Unavailable Malys, Teresa Primary Care Unavailable Allan, Prescott Attending Unavailable Malys, Teresa Primary Care Unavailable Bassam Ray Attending Unavailable Ana Marcano Referring Unavail able Malys, Teresa Primary Care Unavailable Allan, Prescott Consulting Unavailable Ana Marcano Attending Unavail able Malys, Teresa Primary Care Unavailable Allan, Prescott Referring Unavailable Allan, Dustin Attending Unavailable Malys, Teresa Referring Unavailable Carly Colin Attending Unavailable Malys, Teresa Primary Care Unavailable Malys, Teresa Referring Unavailable Malys, Teresa Primary Care Unavailable Ana Marcano Attending Unavail able Malys, Teresa Primary Care Unavailable Allan, Dustin Attending Unavailable Allan, Dustin Referring Unavailable Malys, Teresa Primary Care Unavailable Allan, Dustin Attending Unavailable Allan, Dustin Referring Unavailable Malys, Teresa Primary Care Unavailable Ana Marcano Referring Unavail able Lynn ALVARADO, Ana Momin Attending Unavail able Lynn ALVARADO, Ana Momin Referring Unavail able Malys, Teresa Primary Care Unavailable Lynn ALVARADO, Ana Momin Attending Unavail able Malys, Teresa Primary Care Unavailable Lynn ALVARADO, Ana M Referring Unavail able Lynn ALVARADO, Ana Momin Attending Unavail able Malys, Teresa Referring Unavailable Malys, Teresa Attending Unavailable Malys, Teresa Primary Care Unavailable Carly Colin Referring Unavailable Carly Colin Attending Unavailable Malys, Teresa Primary Care Unavailable Allan, Dustin Referring Unavailable Malys, Teresa Primary Care Unavailable Allan, Prescott Attending Unavailable Malys, Teresa Primary Care Unavailable Carly Colin Consulting Unavailable Carly Colin Referring Unavailable Jose Wolfe Attending Unavailable Malys, Teresa Primary Care Unavailable Allan, Dustin Attending Unavailable Allan, Prescott Referring Unavailable Malys, Teresa Primary Care Unavailable [...] Primary Care Unavailable Malys, Teresa Referring Unavailable Quinton Garcia Attending Unavailable Malys, Teresa Primary Care Unavailable Malys, Teresa Referring Unavailable Lynn ALVARADO, Ana Momin Attending Unavail able Malys, Teresa Primary Care Unavailable Celeste Jordan Attending Unavailable Malys, Teresa Referring Unavailable Malys, Teresa Primary Care Unavailable Malys, Teresa Referring Unavailable Roof Carrington HOWE Attending Unavailable Malys, Teresa Primary Care Unavailable Malys, Teresa Referring Unavailable Carly Colin Attending Unavailable Malys, Teresa Primary Care Unavailable Malys, Teresa Attending Unavailable Malys, Teresa Referring Unavailable Malys, Teresa Primary Care Unavailable Allan, Dustin Referring Unavailable Allan, Prescott Attending Unavailable Malys, Teresa Primary Care Unavailable Demiter Mundo Referring Unavailable Demiter Mundo Attending Unavailable Malys, Teresa Primary Care Unavailable Allan, Dustin Referring Unavailable Allan, Prescott Attending Unavailable Malys, Teresa Primary Care Unavailable Allan, Prescott Referring Unavailable Allan, Prescott Attending Unavailable Malys, Teresa Primary Care Unavailable Carly Colin Attending Unavailable Carly Colin Referring Unavailable Malys, Teresa Primary Care Unavailable Carly Colin Attending Unavailable Carly Colin Referring Unavailable Malys, Teresa Primary Care Unavailable Allan, Dustin Attending Unavailable Allan, Prescott Referring Unavailable Malys, Teresa Primary Care Unavailable Celeste Jordan Attending Unavailable Malys, Teresa Referring Unavailable Allergies Allergy Classification Reported Allergen(s) Allergy Type Date of Onset Reaction(s) Facility Acetaminophen / oxyCODONE (1 source) Acetaminophen / oxyCODONE Drug Allergy 1 Rash [facility] Adhesive Tape (1 source) Adhesive Tape Substance Allergy 8 [facility] Furosemide (1 source) Furosemide Drug Allergy 1 Itching [facility] Opioid Agonists (2 sources) Codeine Drug Allergy 7 Rash, GI Upset [facility] (6 sources) acetaminophen drug allergy 3 rash [facility] Work Phone: [phone] (6 sources) acetaminophen / oxyCODONE drug allergy 3 rash [facility] Work Phone: [phone] (20 sources) Adhesive Tape; Translations: [ADHESIVE TAPE] allergy to substance 2 Rash [facility] Work Phone: [phone] (8 sources) Angiotensin Converting Enzyme (Nicholas) Inhibitors drug allergy 8 Angioedema [facility] Work Phone: [phone] (6 sources) apis mellifera venom; Translations: [BEE STINGS] allergy to substance 4 [facility] Work Phone: [phone] (20 sources) codeine; Translations: [codeine] drug allergy 3 Itching [facility] Work Phone: [phone] (20 sources) doxazosin; Translations: [doxazosin] drug allergy 6 Other [facility] Work Phone: [phone] (6 sources) furosemide drug allergy 3 rash [facility] Work Phone: (6 sources) traMADol drug allergy 3 [facility] Work Phone: (20 sources) Furosemide Drug Allergy 2 Itching [facility] (2 sources) Isosorbide Drug Allergy 1 Dizzy, not feeling well [facility] Work Phone: (20 sources) Latex Allergy to substance 2 Rash [facility] (20 sources) Lisinopril Drug Allergy 2 Angioedema [facility] (20 sources) oxyCODONE; Translations: [oxycodone HCl] Drug Allergy 2 Itching [facility] (20 sources) traMADol; Translations: [tramadol HCl] Drug Allergy 2 Itching [facility] (2 sources) bee venom Allergy to substance 4 Anaphylaxis [facility] (2 sources) Furosemide Drug Allergy 4 Itching [facility] (2 sources) Latex Allergy to substance 4 Rash, Other [facility] (1 source) Furosemide Drug Allergy 5 [facility] Repository (1 source) Latex Drug allergy (disorder) 5 [facility] Repository (1 source) Lisinopril Drug Allergy 5 [facility] Repository Medications Current Medications Medication Drug Class(es) [...] 1 tablet by augusto th once daily ASPIRIN 81 MG TABS One tablet by mouth daily ASPIRIN [id number] Teresa Boggs DO Start: 10-19-2012 take 1 tablet by augusto th once daily ASPIRIN 81 MG TABS One tablet by mouth daily ASPIRIN [id number] Lilly Andersen RN Start: 03-08-2007 End: 05-04-2024 [...] Start: 06-08-2022 take 1 capsule by mo uth once daily Calcium Carbonate-Vitamin D3 Active 1 [...] take 1 capsule by mouth once daily Nsslyjfjxu-Qvrxcqyzkprk-Zmvtqa Active 1 CAP PO DAILY June 08, 2022 12:00am Multivitamin With Folic Acid (18 sources) Start: 02-03-2014 take 1 tablet by mouth once daily Multivitamin With Folic Acid Active 1 TABLET PO DAILY February 02, 2014 11:00pm Start: 02-03-2014 take 1 tablet by augusto th once daily Multivitamin With Folic Acid Active 1 TABLET PO DAILY February 03, 2014 12:00am [place]-3 Fatty Acids (18 sources) Start: 10-20-2015 take 1500 mg by mout h once daily [place] Fatty Acids Active 1500 MG PO DAILY October 19, 2015 11:00pm Start: 10-20-2015 take 1500 mg by mouth once maureen ly [place] Fatty Acids Active 1500 MG PO DAILY [...] 11:56am THYROID 75 mcg t,th 50 mcg m, w,f,radha overton Start: 10-26-2012 take 1 tablet by augusto th every other day, then take 75 ug by mouth LEVOTHYROXINE SODIUM 50 MCG TABS 50 mcg by mouth every other day alt with 75 mcg LEVOTHYROXINE SODIUM [id number] Teresa Boggs DO Start: 10-19-2012 End: 07-10-2021 take 1 tablet by mouth once daily Levothyroxine 50 MCG tablet Discontinued 50 ug PO DAILY February 03, 2014 12:00am July 10, 2021 12:16pm THYROID Start: 10-19-2012 take 1 tablet by augusto th every other day LEVOTHYROXINE SODIUM 75 MCG TABS one tablet by mouth every other day alternate with 50mcg LEVOTHYROXINE SODIUM [id number] Teresa Boggs DO Start: 08-29-2007 End: 10-03-2007 [...] tablets by mouth daily as needed ACETAMINOPHEN [id number] Teresa Boggs DO acetaminophen 325 mg / [...] every 4-6 hours as needed ALBUTEROL SULFATE [id number] Teresa Boggs DO Start: 09-10-2015 End: 04-03-2016 VENTOLIN HFA 108 (90 Base) M CG/ACT AERS 2 puffs inhaled every 4-6 hours as needed ALBUTEROL SULFATE [id number] Braeden Jones BRICKMASON APPRENTICE-C Start: 09-10-2015 VENTOLIN HFA 1 08 (90 Base) MCG/ACT AERS 2 puffs inhaled every 4-6 hours as needed ALBUTEROL SULFATE [id number] Teresa Boggs DO aluminum hydroxide 40 mg/ml [...] One tablet by mouth daily AMIODARONE HCL [id number] [facility]- amLODIPine 10 mg oral tablet (20 sources) Dihydropyridine Calcium Channel Jocelynn Start: 02-03-2014 End: 05-31-2024 take 1 tablet by mouth once daily Amlodipine 10 mg tablet Discontinued 10 mg PO DAILY 90 June 22, 2023 4:46pm March 28, 2024 10:41am Start: 08-29-2007 End: 08-01-2013 take 1 tablet by mouth once daily NORVASC 10 MG TABS One tablet by mouth daily AMLODIPINE BESYLATE [id number] Dustin Lemus MD Comment on above: Take one(1) tablet d aily. amoxicillin 875 mg / clavulanate 125 mg oral tablet (14 sources) Penicillin-class Antibacterial Start: 07-20-19 End: 07-30-19 25 Amoxicillin-Pot Clavulanate 875-125 mg tablet Discontinued 1 {tbl} PO Q12H 20 10 0 July 20, 2024 1:00am July 29, 2024 1:00am July 30, 2024 1:11am Acute sinusitis, unspecified atenolol 100 mg oral tablet (1 source) beta-Adrenergic Jocelynn Start: 08-29-19 End: 07-18-19 ATENOLOL 100 MG TAB Indications: Essential hypertension, [...] A DAY as needed for cough 30 0 July 20, 2024 1:00am December 15, 2024 9:00am busPIRone hydrochloride 10 mg oral tablet (20 sources) Start: 05-02-20 End: 05-04-20 take 15 mg by mouth three times daily 15 mg, Oral, 3 times daily, First dose on Wed05/02/24 at 0900 Start: 05-26-2023 take 3 tablets by mo [facility] three times daily Buspirone 5 mg tablet [...] 10-26-2012 take 1 tablet by augusto th three times daily BUSPIRONE HCL 10 MG TABS One tablet by mouth three times daily BUSPIRONE HCL [id number] Dustin Lemus MD Start: 08-29-2007 End: 06-05-2011 [...] CAPS One tablet by mouth daily CELECOXIB [id number] Lilly Andersen RN cephalexin 500 mg oral [...] capsule (20 sources) Lincosamide Antibacterial Start: 07-15-19 End: 07-21-19 take 1 capsule by mouth three times daily Clindamycin Hcl (Cleocin Hcl) 300 mg capsule Discontinued 300 mg PO THREE TIMES A DAY 12 July 15, 2022 1:00am July 21, 2022 11:21am clopidogrel 75 mg oral tablet (20 sources) P2Y12 Platelet Inhibitor Start: 03-23-20 13 End: 05-10-20 24 take 1 tablet by mouth once daily Clopidogrel 75 mg tablet Discontinued 75 mg PO DAILY April 28, 2024 4:07pm May 10, 2024 4:45pm antiplatelet doxazosin 2 mg oral tablet (12 sources) alpha-Adrenergic Jocelynn Start: 08-07-19 End: 11-15-19 16 take 1 tablet by mouth once daily CARDURA 2 MG TABS One tablet by mouth daily DOXAZOSIN MESYLATE [id number] Dustin Lemus MD DULoxetine 60 mg delayed [...] Start: 10-26-2012 take 1 tablet by augusto once daily CYMBALTA 30 MG CPEP One tablet by mouth daily DULOXETINE HCL [id number] Teresa Boggs DO Start: 10-26-2012 take 3 tablets by mo [facility] once daily CYMBALTA 30 MG CPEP Three tablets by mouth daily DULOXETINE HCL [id number] Dustin Lemus MD Start: 10-19-2012 take 1 tablet by augusto th twice daily CYMBALTA 60 MG CPEP One tablet by mouth twice daily DULOXETINE HCL [id number] Lilly Andersen RN EPINEPHRINE (20 sources) alpha-Adrenergic Agonist, beta-Adrenergic Agonist, Catecholamine Start: 01-23-2014 End: 02-28-2014 EPIPEN 2-RITA 0.3 MG/0.3ML SOAJ use as directed EPINEPHRINE [id number] Teresa Ben Boggs DO Start: 01-23-2014 EPIPEN 2-RITA 0 .3 MG/0.3ML SOAJ use as directed EPINEPHRINE [id number] Teresa Ben Boggs DO Start: 01-23-2014 End: 02-28-2014 EPIPEN 2-RITA 0.3 MG/0.3ML SO AJ use as directed EPINEPHRINE [id number] Sun Ritchie MD Start: 01-23-2014 EPIPEN 2-RITA 0 .3 MG/0.3ML SOAJ use as directed EPINEPHRINE [id number] Sun Ritchie MD fish oil (18 sources) Start: 11-15-2015 take 1 tablet by augusto once daily FISH OIL CAPS One tablet by mouth daily OMEGA-3 FATTY ACIDS CAPS [id number] Dustin Lemus MD Start: 10-19-2012 take 1 tablet by augusto once daily FISH OIL CAPS One tablet by mouth daily OMEGA-3 FATTY ACIDS CAPS [id number] Lilly Andersen RN Start: 10-19-2012 End: 10-26-2012 take 1 tablet by mouth once daily FISH OIL CAPS One tablet by mouth daily OMEGA-3 FATTY ACIDS CAPS [id number] Dustin Lemus MD 250 ml heparin sodium, [...] hr Discontinued 30 mg PO DAILY 90 February 05, 2020 4:57pm March 05, 2020 [...] daily ISOSORBIDE MONONITRA TE ER 30 MG [id number] One tablet by mouth daily ISOSORBIDE MONONITRATE [id number] Dustin Lemus MD Start: 04-19-2013 take 1 tablet by mouth once da angelique IMDUR 30 MG [id number] One tablet by mouth daily ISOSORBIDE MONONITRATE [...] CAP PO DAILY July 15, 2022 12:00am Pvdmxfypkm-Ylxelekpwmqm-Qwpd in 100-500-50 mg capsule (14 sources) Start: 06-08-2022 End: 03-28-2024 take 1 capsule by mouth once daily Dcymzclaoa-Mutemavwinur-Lbyply 100-500-50 mg capsule Discontinued 1 NMA PO [...] One tablet by mouth twice daily LEVETIRACETAM [id number] Dustin Lemus MD liothyronine sodium 0.005 mg oral tablet (20 sources) l-Triiodothyronine Start: 05-06-2022 End: 03-28-2024 Liothyronine 5 mcg tablet Discontinued 5 ug PO SUMOMay 06, 2022 1:00am March 28, 2024 10:14am [...] tablet by mouth daily as needed LORATADINE [id number] Teresa Boggs DO LORazepam 1 mg oral [...] tablet by mouth twice daily METOPROLOL TARTRATE [id number] Teresa Boggs DO Start: 10-19-2012 take 1 tablet by augusto th twice daily METOPROLOL TARTRATE 50 MG TABS One tablet by mouth twice daily METOPROLOL TARTRATE [id number] Dustin Lemus MD mirtazapine 15 mg oral tablet (12 sources) Start: 10-26-2012 End: 02-28-2014 take 1 tablet by mouth once daily REMERON 15 MG TABS One tablet by mouth daily MIRTAZAPINE [id number] Dustin Lemus MD MULTIPLE VITAMIN (4 sources) Start: 10-19-2012 take 1 tablet by mouth once daily MULTIVITAMINS TABS One tablet by mouth daily MULTIPLE VITAMIN [id number] Teresa Boggs DO Start: 10-19-2012 take 1 tablet by augusto th once daily MULTIVITAMINS TABS One tablet by mouth daily MULTIPLE VITAMIN [id number] Lilly Andersen RN MULTIPLE VITAMIN (8 sources) Start: 10-19-2012 take 1 tablet by mouth once daily MULTIVITAMINS TABS One tablet by mouth daily MULTIPLE VITAMIN [id number] Teresa Boggs DO Start: 10-19-2012 take 1 tablet by augusto once daily MULTIVITAMINS TABS One tablet by mouth daily MULTIPLE VITAMIN [id number] Lilly Andersen RN multivitamin ORAL Tab (1 [...] tablet by mouth twice daily NITROFURANTOIN MACROCRYSTAL [id number] Sun Ritchie MD 24 hr nitroglycerin 0.6 [...] Polyene Antifungal Start: 07-24-2014 End: 12-11-2014 NYSTATIN [id number] UNIT/ML SUSP 5ml egyptian and swallow 4 times daily NYSTATIN [id number] Sun Ritchie MD Start: 07-24-2014 End: 12-11-2014 NYSTATIN [id number] UNIT/GM POWD apply to affected area 4 times daily NYSTATIN [id number] Sun Ritchie MD Start: 07-24-2014 End: 12-11-2014 NYSTATIN [id number] UNIT/GM POWD apply to affected area 4 times daily NYSTATIN [id number] Teresa Boggs, DO [place]3 Fatty Acids 500 MG capsule (14 sources) Start: 10-20-2015 End: 12-15-2024 take 1 capsule by mouth once daily [place]3 Fatty Acids 500 MG capsule Discontinued 1500 mg PO DAILY October 20, 2015 12:00am December 15, 2024 9:02am SUPPLEMENT Start: 10-20-2015 End: 12-15-2024 take 1 capsule by mouth once daily [place]3 Fatty Acids 500 MG capsule Discontinued 1500 mg PO DAILY October 20, 2015 12:00am December 15, 2024 9:02am Start: 10-20-[address] take [address] [facility] once daily [place]3 Fatty Acids 500 MG capsule Active 1500 [...] on Wed05/02/24 at 1726, For 1 dose, Rox Mckeon: cabinet override Phenylephrine HCl (Pressors) 1 MG/10ML injection 0.2 mg (2 sources) Start: 05-02-2024 End: 05-04-2024 0.2 mg, IntraVENous, Every 5 min PRN, for hypotension, Starting on Wed05/02/24 at 1726, For 3 doses, Provider to be at bedside or actively in route to bedside. polyethylene glycol 3350 03171 mg powder for oral solution (2 sources) [...] Discontinued 40 mg PO DAILY 8 4 0 May 14, 2021 1:00am July 07, 2021 11:05am Start: 05-14-2021 End: 07-07-2021 take 40 mg by mouth once daily Prednisone Discontinued 40 MG PO DAILY 8 4 May 14, 2021 1:00am July 07, 2021 11:05am Start: 10-18-2015 End: 11-06-2015 take 3 tablets by mouth once daily PREDNISONE 20 MG TABS 3 po daily x 5 days PREDNISONE [id number] Lilly Andersen RN QUETIAPINE FUMARATE (12 sources) Atypical Antipsychotic Start: 10-19-2012 End: 10-26-2012 take 1 tablet by mouth once daily at bedtime SEROQUEL XR 50 MG [id number] One tablet by mouth daily at bedtime QUETIAPINE FUMARATE [id number] Lilly Andersen RN Start: 10-19-2012 End: 10-26-2012 take 1 tablet by mouth once daily at bedtime SEROQUEL XR 50 MG [id number] One tablet by mouth daily at bedtime QUETIAPINE FUMARATE [id number] Dustin Lemus MD Start: 10-19-2012 take 1 tablet by augusto th once daily at bedtime SEROQUEL XR 50 MG [id number] One tablet by mouth daily at bedtime QUETIAPINE FUMARATE [id number] Lilly Andersen RN raNITIdine (12 sources) Histamine-2 Receptor Antagonist Start: 07-24-2014 take 1 tablet by mouth once daily GNP ACID CONTROL [address] 150 MG TABS One tablet by mouth daily RANITIDINE HCL [id number] Teresa Boggs DO Start: 07-24-2014 take 1 tablet by augusto th once daily GNP ACID CONTROL [address] 150 MG TABS One tablet by mouth daily RANITIDINE HCL [id number] Teresa Boggs DO rosuvastatin calcium 40 mg oral tablet (20 sources) HMG-CoA Reductase Inhibitor Start: 05-04-2024 End: 05-04-2025 take 1 tablet by mouth once daily Rosuvastatin (Crestor) 40 mg tablet Discontinued 40 mg PO daily 90 3 December 18, [...] tablet Discontinued 25 mg PO DAILY 90 3 November 22, 2024 9:41am November 23, 2024 [...] One tablet by mouth daily TRAZODONE HCL [id number] Dustin Lemus MD valACYclovir 1000 mg oral tablet (12 sources) Herpesvirus Nucleoside Analog DNA Polymerase Inhibitor, Herpes Simplex Virus Nucleoside Analog DNA Polymerase Inhibitor, Herpes Zoster Virus Nucleoside Analog DNA Polymerase Inhibitor Start: 10-18-2015 End: 11-06-2015 take 1 tablet by mouth three times daily VALACYCLOVIR HCL 1 GM TABS 1 po Three times a day x 7 days VALACYCLOVIR HCL [id number] Teresa Boggs, DO Problems Active Problems Problem [...] source) 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 Teresa Boggs DO Status: [facility] Study: SCRN MAMM (CAD)W/CONNOR BILAT Date of Exam: 01/26 08/22 Exam# [id number] Ordering Dr: Teresa Boggs DO EXAM: SCRN MAMM (CAD)W/CONNOR BILAT DATE: 02/06/2025 CLINICAL HISTORY: F, Age 69 y/o , SCREENING TECHNIQUE: SCRN MAMM (CAD)W/CONNOR BILAT COMPARISON: Prior exam(s) dated 02/04/2024, 12/31/2022, 12/26/2021. FINDINGS: TISSUE DENSITY: The breasts are almost entirely fatty. Bilateral Breast Mammographic Findings: No significant masses, calcifications or other abnormalities are identified. BI/SCRN MAMM (CAD)W/CONNOR BILAT IMPRESSION: There is no mammographic evidence of malignancy. OVERALL FINAL ASSESSMENT BI-RADS 1: NEGATIVE. RECOMMENDATION: Routine annual follow-up in 1 Year A letter with findings and recommendations will be mailed to the patient. Reading Location: [id number] CC: Dr. Teresa Boggs DO Inventory Assistant: Signed Normal [facility] Echo Complete W/ Contraston 01-18-2025 Echo Complete W/ Contrast [facility] Cardi[facility] [address] [place] [address] Echo Complete W/ Contrast 01/18/25 1304 MR#: [id number] Acct: [id number] Name: NISSA TROTTER Rep #: [id number] : 1955 69 From: Dustin Lemus MD Attending Dr: Carly Colin, CITRIX ADMINISTRATOR Status: REG CL I Ordering Dr: Carly Colin CITRIX ADMINISTRATOR-C Date: 01/18/25 Location: [facility] Sex: F C Admitted: Reason For Study : SOB Procedure This was a 2D Doppler, Color Flow transthoracic echocardiogram. Contrast injection was performed. Exam performed in department. Left Ventricle Normal LV size. The left ventricular ejection fraction is 55 %. Stage 1 diastolic dysfunction. Segmental dysfunction with preserved ejection fraction (see wall motion). Freer : Akinetic. Right Ventricle Normal RV size. [...] Normal LV size. Stage 1 diastolic dysfunction. Freer : Akinetic. Mild (1+) eccentric mitral valve insufficiency. Moderate (2+) tricuspid valve insufficiency. Cannot completely exclude apical thrombus small Ordering Physician: Carly Colin Referring Physician: Teresa Boggs Performed By: Ruslan Perez RCS 01/18/25 1656 Date Dustin Lemus MD CC: Dr. Teresa Boggs, DO; Carly Colin NP Date Dictated: 01/18/25 1304 Date Transcribed: 01/18/25 1647 Inventory Assistant: Signed Normal [facility] Echocardiogram study reportO rdered By: Dustin Lemus on 01-18-2025 Study report [facility] Cardi[facility] [address] [place] [address] Echo Complete W/ Contrast 01/18/25 1304 MR#: [id number] Acct: [id number] Name: NISSA TROTTER Rep #:[id number] : 1955 69 From: Dustin Noble Attending Dr: Carly Colin NP St atus: REG CLI Ordering Dr: Carly Colin CITRIX ADMINISTRATOR-C Rey e: 01/18/25 Location: [facility] Sex: F C Admitted: Reason For Study : SOB Procedure This was a 2D Doppler, Color Flow transthoracic echocardiogram. Contrast injection was performed. Exam performed in department. Left Ventricle Normal LV size. The left ventricular ejection fraction is 55 %. Stage 1 diastolic dysfunction. Segmental dysfunction with preserved ejection fraction (see wall motion). Freer : Akinetic. Right Ventricle Normal RV size. [...] Normal LV size. Stage 1 diastolic dysfunction. Freer : Akinetic. Mild (1+) eccentric mitral valve insufficiency. Moderate (2+) tricuspid valve insufficiency. Cannot completely exclude apical thrombus small Ordering Physician: Carly Colin Referring Physician: Teresa Boggs Performed By: Ruslan Perez RCS 01/18/25 1656 Date _ Dustin Lemus MD CC: Dr. Teresa Boggs DO; Carly Colin NP ~ Date Dictated: 01/18/25 1304 Date Transcribed: 01/18/25 1647 Inventory Assistant: Signed [facility] Work Phone: Absolute lymphocyte countOrd ered By: SHYAM Colin on 12-15-2024 Lymphocytes Auto (Unsp spec) [#/Vol] 1.36 10*3/uL 0.83-4.51 [facility] Absolute neutrophil countOrd ered By: SHYAM Colin on 12-15-2024 Neutrophils (Bld) [#/Vol] 7.8 10*3/uL High 2.0-7.7 [facility] Automated lymphocyte count a s percentage of total leukocytesOrdered By: SHYAM Colin on 12-15-2024 Lymphocytes/100 WBC Auto (Unsp spec) 13.5 % Low 19-41 [facility] Basophil percentageOrdered B y: SHYAM Colin on 12-15-2024 Basophils/100 WBC (Bld) 0.4 % 0-1 [facility] CBC W/Diff, Automatedon 11-27 0-2024 Absolute Lymph 1.36 X10 3/uL Normal 0.83-4.51 [facility] Comment on above: Performed By: #### L 100.0100 ####[facility] [address] [place], [address] Absolute Neut 7.8 X10 3/uL High 2.0-7.7 [facility] Comment on above: Performed By: #### L 100.0100 ####[facility] [address] [place], [address] Basophils/100 WBC (Bld) 0.4 % Normal 0-1 [facility] Comment on above: Performed By: #### L 100.0100 ####[facility] [address] [place], [address] Eosinophils/100 WBC (Bld) 2.1 % Normal 0-5 [facility] Comment on above: Performed By: #### L 100.0100 ####[facility] [address] [place], [address] Erythrocyte distribution width (RBC) [Ratio] 12.4 % Normal 11.6-14.6 [facility] Comment on above: Performed By: #### L 100.0100 ####[facility] [address] [place], [address] Hematocrit (Bld) [Volume fraction] 43.0 % Normal 37-47 [facility] Comment on above: Performed By: #### L 100.0100 ####[facility] [address] [place], [address] Hemoglobin (Bld) [Mass/Vol] 14.4 g/dL Normal 12.0-15.0 [facility] Comment on above: Performed By: #### L 100.0100 ####[facility] [address] [place], [address] IG% 0.400 Normal 0.0-0.9 [facility] Comment on above: Result Comment: IG% - Immature Granulocytes (promyelocytes, myelocytes and metamyelocytes) > 1% indicates that a LEFT SHIFT is Present. Performed By: #### L 100.0100 ####[facility] [address] [place], [address] Lymphocytes/100 WBC (Bld) 13.5 % Low 19-41 [facility] Comment on above: Performed By: #### L 100.0100 ####[facility] [address] [place], [address] MCH (RBC) [Entitic mass] 31.6 pg Normal 27.0-32.0 [facility] Comment on above: Performed By: #### L 100.0100 ####[facility] [address] [place], [address] MCHC (RBC) [Mass/Vol] 33.5 g/dL Normal 32-36 [facility] Comment on above: Performed By: #### L 100.0100 ####[facility] [address] [place], [address] MCV (RBC) [Entitic vol] 94.5 fL Normal 81-99 [facility] Comment on above: Performed By: #### L 100.0100 ####[facility] [address] [place], [address] Monocytes/100 WBC (Bld) 6.5 % Normal 0-10 [facility] Comment on above: Performed By: #### L 100.0100 ####[facility] [address] [place], [address] Neutrophils/100 WBC (Bld) 77.1 % High 47-70 [facility] Comment on above: Performed By: #### L 100.0100 ####[facility] [address] [place], [address] Nucleated RBC (Bld) [#/Vol] 0 10*3/uL Normal 0-5 [facility] Comment on above: Performed By: #### L 100.0100 ####[facility] [address] [place], [address] Platelet mean volume (Bld) [Entitic vol] 10.0 fL Normal 6.2-12.0 [facility] Comment on above: Performed By: #### L 100.0100 ####[facility] [address] [place], [address] Platelets (Bld) [#/Vol] 264 10*3/uL Normal 150-450 [facility] Comment on above: Performed By: #### L 100.0100 ####[facility] [address] [place], [address] RBC (Bld) [#/Vol] 4.55 10*6/uL Normal 4.2-5.4 [facility] Comment on above: Performed By: #### L 100.0100 ####[facility] [address] [place], [address] RDW SD 43.1 fl Normal 35.1-43.9 [facility] Comment on above: Performed By: #### L 100.0100 ####[facility] [address] [place], [address] WBC (Bld) [#/Vol] 10.1 10*3/uL Normal 4.4-11.0 [facility] Comment on above: Performed By: #### L 100.0100 ####[facility] [address] [place], [address] Eosinophil percentageOrdered By: SHYAM Colin on 12-15-2024 Eosinophils/100 WBC (Bld) 2.1 % 0-5 [facility] Erythrocyte distribution wid th ratioOrdered By: SHYAM Colin on 12-15-2024 Erythrocyte distribution width (RBC) [Ratio] 12.4 % 11.6-14.6 [facility] Erythrocyte distribution wid th standard deviationOrdered By: SHYAM Colin on 12-15-2024 Erythrocyte distribution width (RBC) [Ratio] 43.1 fl 35.1-43.9 [facility] Hematocrit Auto (Bld) [Volum e fraction]Ordered By: SHYAM Colin on 12-15-2024 Hematocrit (Bld) [Volume fraction] 43.0 % 37-47 [facility] Hemoglobin measurementOrdere d By: SHYAM Colin on 12-15-2024 Hemoglobin (Bld) [Mass/Vol] 14.4 g/dL 12.0-15.0 [facility] Immature granulocytes/100 WB C Auto (Bld)Ordered By: SHYAM Colin on 12-15-2024 Immature granulocytes/100 WBC (Bld) 0.400 % 0.0-0.9 [facility] Comment on above: IG% - Immature Granu locytes (promyelocytes, myelocytes and metamyelocytes) > 1% indicates that a LEFT SHIFT is Present. MCV (mean corpuscular volume ) determinationOrdered By: SHYAM Colin on 12-15-2024 MCV (RBC) [Entitic vol] 94.5 fL 81-99 [facility] Mean corpuscular hemoglobin (MCH) determinationOrdered By: SHYAM Colin on 12-15-2024 MCH (RBC) [Entitic mass] 31.6 pg 27.0-32.0 [facility] Mean corpuscular hemoglobin concentration (MCHC) determinationOrdered By: SHYAM Colin on 12-15-2024 MCHC (RBC) [Mass/Vol] 33.5 g/dL 32-36 [facility] Mean platelet volume determi nationOrdered By: SHYAM Colin on 12-15-2024 Platelet mean volume (Bld) [Entitic vol] 10.0 fL 6.2-12.0 [facility] Monocyte percentageOrdered B y: SHYAM Colin on 12-15-2024 Monocytes/100 WBC (Bld) 6.5 % 0-10 [facility] Neutrophil percentageOrdered By: SHYAM Colin on 12-15-2024 Neutrophils/100 WBC (Bld) 77.1 % High 47-70 [facility] Nucleated red blood cell per centageOrdered By: SHYAM Colin on 12-15-2024 Nucleated RBC/100 WBC (Bld) [Ratio] 0 % 0-5 [facility] Platelet countOrdered By: SHYAM Colin on 12-15-2024 Platelets (Bld) [#/Vol] 264 10*3/uL 150-450 [facility] Pulmonary Visit Reporton Pulmonary Visit Report [facility] [place] 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 Normal [facility] RBC Auto (Bld) [#/Vol]Ordere d By: SHYAM Colin on 12-15-2024 RBC (Bld) [#/Vol] 4.55 10*6/uL 4.2-5.4 [facility] White blood cell (WBC) count Ordered By: SHYAM Colin on 12-15-2024 WBC (Bld) [#/Vol] 10.1 10*3/uL 4.4-11.0 [facility] 6 Minute Walk Teston 025 6 Minute Walk Test y [facility]Neurology [address] [place] [address] MR#: [id number] Acct: [id number] Name: NISSA TROTTER Rep #: [id number] : 1955 69 From: Jose Wolfe DO Referring Dr: Carly Colin CITRIX ADMINISTRATOR-C Status: REG CLI Location: PSN Date: Sex: F C PSN 6 Minute Walk Test 6 Minute Walk Test 6 Minute Walk Test: 6 Minute Walk Test PSN:6-Minute Walk Test Start: 10/31/24 08:45 Freq: Status: Active Protocol: RESP.6MINW Document 10/31/24 08:45 [facility] (Rec: 10/31/24 08:50 [facility] [id number]) 6 Minute Walk Test Date Performed 10/31/24 [...] Date Jose Wolfe DO CC: Date Dictated: 11/03/241207 Date Transcribed: 11/03/241207 Inventory Assistant: Dr. Jose Wolfe DO Signed Normal [facility] Anion gap in Serum or Plasma Ordered By: Teresa Boggs on 10-27-2024 Anion gap [Moles/Vol] 16 mmol/L High 5-15 [facility] BUN/creatinine ratioOrdered By: Teresa Boggs on 10-27-2024 Urea nitrogen/Creatinine [Mass ratio] 18.6 mg/mg 10-20 [facility] Bilirubin, totalOrdered By: Teresa Boggs on 10-27-2024 Bilirubin [Mass/Vol] 1.17 mg/dL 0.00-1.30 [facility] Carbon dioxide, total [Moles /volume] in Central venous bloodOrdered By: Teresa Boggs on 10-27-2024 CO2 [Moles/Vol] 17.4 mmol/L Low 21.0-32.0 [facility] Chloride assayOrdered By: Marge henley Chrisrenée on 10-27-2024 Chloride [Moles/Vol] 103 mmol/L 98-108 [facility] Comprehensive Metabolic Prof ilon 10-27-2024 Albumin [Mass/Vol] 4.8 g/dL Normal 3.4-4.8 [facility] Comment on above: Performed By: #### L 501.70585, L501.9520, L506.0400, L500.4050 #### [facility] Laboratory [address] [place], [address] Albumin/Globulin [Mass ratio] 1.7 {ratio} Normal 0.9-2.4 [facility] Comment on above: Performed By: #### L 501.65079, L501.9520, L506.0400, L500.4050 #### [facility] [address] [place], [address] ALK PHOS 81 U/L Normal 35-104 [facility] Comment on above: Performed By: #### L 501.65452, L501.9520, L506.0400, L500.4050 #### [facility] [address] [place], [address] ALT [Catalytic activity/Vol] 25 U/L Normal <=34 [facility] Comment on above: Performed By: #### L 501.18213, L501.9520, L506.0400, L500.4050 #### [facility] [address] [place], [address] AST [Catalytic activity/Vol] 35 U/L High <=31 [facility] Comment on above: Performed By: #### L 501.43551, L501.9520, L506.0400, L500.4050 #### [facility] [address] [place], [address] Bilirubin [Mass/Vol] 1.17 mg/dL Normal 0.00-1.30 [facility] Comment on above: Performed By: #### L 501.48759, L501.9520, L506.0400, L500.4050 #### [facility] [address] [place], [address] BUN/CRE 18.6 RATIO Normal 10-20 [facility] Comment on above: Performed By: #### L 501.01760, L501.9520, L506.0400, L500.4050 #### [facility] [address] [place], [address] Calcium [Mass/Vol] 10.0 mg/dL Normal 7.6-11.0 [facility] Comment on above: Performed By: #### L 501.89092, L501.9520, L506.0400, L500.4050 #### [facility] [address] [place], [address] Chloride [Moles/Vol] 103 mmol/L Normal 98-108 [facility] Comment on above: Performed By: #### L 501.85052, L501.9520, L506.0400, L500.4050 #### [facility] [address] [place], [address] CO2 [Moles/Vol] 17.4 mmol/L Low 21.0-32.0 [facility] Comment on above: Performed By: #### L 501.53426, L501.9520, L506.0400, L500.4050 #### [facility] [address] [place], [address] Creatinine [Mass/Vol] 1.33 mg/dL High 0.70-1.20 [facility] Comment on above: Performed By: #### L 501.71451, L501.9520, L506.0400, L500.4050 #### [facility] [address] [place], [address] GAP 16 High 5-15 [facility] Comment on above: Performed By: #### L 501.23394, L501.9520, L506.0400, L500.4050 #### [facility] [address] [place], [address] GFR/1.73 sq M.predicted among non-blacks MDRD (S/P/Bld) [Vol rate/Area] 43 mL/min/{1.73_m2} Low >60 [facility] Comment on above: Result Comment: mL/m in/1.73m2 CKD-EPI Creatinine Equation (2020) Performed By: #### L 501.02848, L501.9520, L506.0400, L500.4050 #### [facility] [address] [place], [address] Globulin (S) [Mass/Vol] 2.8 g/dL Normal 2.2-4.2 [facility] Comment on above: Performed By: #### L 501.20994, L501.9520, L506.0400, L500.4050 #### [facility] [address] [place], [address] Glucose [Mass/Vol] 112 mg/dL High 70-99 [facility] Comment on above: Performed By: #### L 501.06332, L501.9520, L506.0400, L500.4050 #### [facility] [address] [place], [address] Potassium [Moles/Vol] 4.0 mmol/L Normal 3.3-5.1 [facility] Comment on above: Performed By: #### L 501.99011, L501.9520, L506.0400, L500.4050 #### [facility] [address] [place], [address] Sodium [Moles/Vol] 136 mmol/L Normal 133-145 [facility] Comment on above: Performed By: #### L 501.46262, L501.9520, L506.0400, L500.4050 #### [facility] [address] [place], [address] T PROT 7.6 g/dL Normal 5.9-8.4 [facility] Comment on above: Performed By: #### L 501.28926, L501.9520, L506.0400, L500.4050 #### [facility] [address] [place], [address] Urea nitrogen [Mass/Vol] 25 mg/dL High 4-19 [facility] Comment on above: Performed By: #### L 501.59071, L501.9520, L506.0400, L500.4050 #### [facility] [address] [place], [address] Free T3on 10-27-2024 Free T3 [Mass/Vol] 2.8 pg/mL Normal 2.18-3.98 [facility] Comment on above: Performed By: #### L 501.52158, L501.9520, L506.0400, L500.4050 #### [facility] [address] [place], [address] Free B3Prrjwjr By: Teresa fallon on 10-27-2024 Free T3 [Mass/Vol] 2.8 pg/mL 2.18-3.98 [facility] Glomerular filtration rate ( GFR) estimation/1.73 sq m using serum, plasma, or whole bOrdered By: Teresa Boggs on 10-27-2024 GFR/1.73 sq M.predicted among non-blacks MDRD (S/P/Bld) [Vol rate/Area] 43 mL/min/{1.73_m2} Low >60 [facility] Comment on above: mL/min/1.73m2 CKD-EP I Creatinine Equation (2020) Laboratory - Chemistry and C hemistry - challengeOrdered By: Teresa Boggs on 10-27-2024 AST [Catalytic activity/Vol] 35 U/L High <32 [facility] Potassium measurement (mass/ volume)Ordered By: Teresa Boggs on 10-27-2024 Potassium (Unsp spec) [Mass/Vol] 4.0 mmol/L 3.3-5.1 [facility] Serum creatinine measurement (mass/volume)Ordered By: Teresa Boggs on 10-27-2024 Creatinine [Mass/Vol] 1.33 mg/dL High 0.70-1.20 [facility] Serum globulin measurementOr dered By: Teresa Boggs on 10-27-2024 Globulin (S) [Mass/Vol] 2.8 g/dL 2.2-4.2 [facility] Serum glucose measurement (m ass/volume)Ordered By: Teresa Boggs on 10-27-2024 Glucose [Mass/Vol] 112 mg/dL High 70-99 [facility] Serum or plasma alanine luu otransferase (ALT) measurementOrdered By: Teresa Boggs on 10-27-2024 ALT [Catalytic activity/Vol] 25 U/L <35 [facility] Serum or plasma albumin cate urement (mass/volume)Ordered By: Teresa Boggs on 10-27-2024 Albumin [Mass/Vol] 4.8 g/dL 3.4-4.8 [facility] Serum or plasma albumin/glob ulin mass ratioOrdered By: Teresa Boggs on 10-27-2024 Albumin/Globulin [Mass ratio] 1.7 {ratio} 0.9-2.4 [facility] Serum or plasma alkaline ady sphatase measurementOrdered By: Teresa Boggs on 10-27-2024 ALP [Catalytic activity/Vol] 81 U/L 35-104 [facility] Serum or plasma calcium cate urement (mass/volume)Ordered By: Teresa Boggs on 10-27-2024 Calcium [Mass/Vol] 10.0 mg/dL 7.6-11.0 [facility] Serum or plasma urea nitroge n measurement (mass/volume)Ordered By: Teresa Boggs on 10-27-2024 Urea nitrogen [Mass/Vol] 25 mg/dL High 4-19 [facility] Sodium levelOrdered By: Teresa Boggs on 10-27-2024 Sodium [Moles/Vol] 136 mmol/L 133-145 [facility] T4 Free Directon 10-27-2024 T4 FREE DIRECT 1.20 ng/dL Normal 0.76-1.46 [facility] Comment on above: Performed By: #### L 501.93820, L501.9520, L506.0400, L500.4050 ####[facility] [address] [place], [place], [address] T4 freeOrdered By: Teresa Ordaz s on 10-27-2024 Free T4 [Mass/Vol] 1.20 ng/dL 0.76-1.46 [facility] TSH DL <= 0.005 mIU/L QnOrde red By: Teresa Boggs on 10-27-2024 TSH Qn 1.250 uIU/mL 0.300-4.20 0 [facility] Thyroid Stim Hormone (TSH)on 10-27-2024 TSH 1.250 uIU/mL Normal 0.300-4.20 0 [facility] Comment on above: Performed By: #### L 501.64381, L501.9520, L506.0400, L500.4050 #### [facility] Laboratory [address] [place], [place], [address] Total proteinOrdered By: Rachael Boggs on 10-27-2024 Protein [Mass/Vol] 7.6 g/dL 5.9-8.4 [facility] Pulmonary Visit Reporton Pulmonary Visit Report [facility] [place] [address] [place] [address] OFFICE VISIT Date of Service: 10/18/24 MR#: [id number] Acct: [id number] Name: NISSA TROTTER Rep #: [id number] : 1955 Provider: Carly Colin NP Age/Sex: 69/F Location: [facility] Status: Signed Assessment and Plan Assessment and [...] URI in July. 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 Normal [facility] Bilirubin directOrdered By: Ana Bailey on 10-03-2024 Bilirubin.direct [Mass/Vol] 0.45 mg/dL High 0.00-0.30 [facility] Bilirubin, totalOrdered By: Ana Bailey on 10-03-2024 Bilirubin [Mass/Vol] 0.93 mg/dL 0.00-1.30 [facility] Calculated very low density lipoprotein (VLDL) cholesterol measurementOrdered By: Ana Bailey on 10-03-2024 Calculated very low density lipoprotein (VLDL) cholesterol measurement 13 mg/dL 5-40 [facility] VLDL Cholesterol 13 mg/dL 5-40 [facility] LDL calc ser/plasOrdered By: Ana Bailey on 10-03-2024 Cholesterol in LDL [Mass/Vol] 40 mg/dL [facility] Comment on above: Qdlrbbuwdb=940-427 m g/dL & Higher Zutm=808 mg/dL or greater LDL Cholesterol, Calculated 40 mg/dL [facility] Comment on above: Emsrjoxyht=233-177 m g/dL & Higher Fxoq=651 mg/dL or greater Laboratory - Chemistry and C hemistry - challengeOrdered By: Ana Bailey on 10-03-2024 AST [Catalytic activity/Vol] 36 U/L High <32 [facility] Lipid Profileon 10-03-2024 CHOL:HDL 1.76 Normal [facility] Comment on above: Performed By: #### L 500.3210, L500.0950 ####[facility] [address] [place], [address] Cholesterol [Mass/Vol] 122 mg/dL Normal <=200 [facility] Comment on above: Result Comment: Chol esterol level, Desirable <200 mg/dL Borderline high cholesterol 200-239 mg/dL High cholesterol >=240 mg/dL Recommendations of the NCEP Adult Treatment Panel for the following risk-cutoff thresholds for the [place] population. Performed By: #### L 500.3400, L500.4100 ####[facility] [address] [place], [address] Cholesterol in HDL [Mass/Vol] 69 mg/dL Normal [facility] Comment on above: Result Comment: Cherise onal Cholesterol Education Program (NCEP) guidelines: <40 mg/dL: Low HDL-cholesterol (major risk factor for CHD) >= 60 mg/dL: High HDL-cholesterol (negative risk factor for CHD) HDL-cholesterol is affected by a number of factors, e.g. smoking, exercise, hormones, sex and age. Performed By: #### L 500.3400, L500.4100 ####[facility] [address] [place], [address] Cholesterol in LDL [Mass/Vol] 40 mg/dL Normal [facility] Comment on above: Result Comment: Bord offovk=894-368 mg/dL Higher Zcqh=523 mg/dL or greater Performed By: #### L 500.3400, L500.4100 ####[facility] [address] [place], [address] Cholesterol in VLDL [Mass/Vol] 13 mg/dL Normal 5-40 [facility] Comment on above: Performed By: #### L 500.3400, L500.4100 ####[facility] [address] [place], [address] Triglyceride [Mass/Vol] 64 mg/dL Normal [facility] Comment on above: Result Comment: The drugs N-Acetylcysteine and Metamizole may falsely depress this assay. Normal range: <150 mg/dL Borderline High: 150-199 mg/dL High: 200-499 mg/dL Very High: >500 mg/dL Performed By: #### L 500.3400, L500.4100 ####[facility] [address] [place], [address] Liver Profileon 10-03-2024 Albumin [Mass/Vol] 4.5 g/dL Normal 3.4-4.8 [facility] Comment on above: Performed By: #### L 500.3400, L500.4100 ####[facility] [address] [place], [address] ALK PHOS 82 U/L Normal 35-104 [facility] Comment on above: Performed By: #### L 500.3400, L500.4100 ####[facility] [address] [place], [address] ALT [Catalytic activity/Vol] 24 U/L Normal <=34 [facility] Comment on above: Performed By: #### L 500.3400, L500.4100 ####[facility] [address] [place], [address] AST [Catalytic activity/Vol] 36 U/L High <=31 [facility] Comment on above: Performed By: #### L 500.3400, L500.4100 ####[facility] [address] [place], [address] Bilirubin [Mass/Vol] 0.93 mg/dL Normal 0.00-1.30 [facility] Comment on above: Performed By: #### L 500.3400, L500.4100 ####[facility] [address] [place], [address] Bilirubin.direct [Mass/Vol] 0.45 mg/dL High 0.00-0.30 [facility] Comment on above: Performed By: #### L 500.3400, L500.4100 ####[facility] [address] [place], [address] Globulin (S) [Mass/Vol] 2.6 g/dL Normal 2.2-4.2 [facility] Comment on above: Performed By: #### L 500.3400, L500.4100 ####[facility] [address] [place], [place], [id number] T PROT 7.0 g/dL Normal 5.9-8.4 [facility] Comment on above: Performed By: #### L 500.3400, L500.4100 ####[facility] [address] [place], [place], [id number] Screening total cholesterol/ high density lipoprotein (HDL) cholesterol ratioOrdered By: Ana Bailey on 10-03-2024 Cholesterol.total/Chol esterol in HDL [Mass ratio] 1.76 {ratio} [facility] Serum globulin measurementOr dered By: Ana Bailey on 10-03-2024 Globulin (S) [Mass/Vol] 2.6 g/dL 2.2-4.2 [facility] Serum or plasma alanine luu otransferase (ALT) measurementOrdered By: Ana Bailey on 10-03-2024 ALT [Catalytic activity/Vol] 24 U/L <35 [facility] Serum or plasma albumin cate urement (mass/volume)Ordered By: Ana Bailey on 10-03-2024 Albumin [Mass/Vol] 4.5 g/dL 3.4-4.8 [facility] Serum or plasma alkaline ady sphatase measurementOrdered By: Ana Bailey on 10-03-2024 ALP [Catalytic activity/Vol] 82 U/L 35-104 [facility] Serum or plasma cholesterol in HDL measurement (mass/volume)Ordered By: Ana Bailey on 10-03-2024 Cholesterol in HDL [Mass/Vol] 69 mg/dL >40 [facility] Comment on above: National Cholesterol Education Program (NCEP) guidelines:<40 mg/dL: Low HDL-cholesterol (major risk factor for CHD)>= 60 mg/dL: High HDL-cholesterol (negative risk factor for CHD)HDL-cholesterol is affected by a number of factors, e.g. smoking, exercise, hormones, sex and age. Serum or plasma cholesterol measurement (mass/volume)Ordered By: Ana Bailey on 10-03-2024 Cholesterol [Mass/Vol] 122 mg/dL <201 [facility] Comment on above: Cholesterol level, D esirable <200 mg/dLBorderline high cholesterol 200-239 mg/dLHigh cholesterol >=240 mg/dLRecommendations of the NCEP Adult Treatment Panel for the following risk-cutoff thresholds for the [place] population. Total proteinOrdered By: Karan Bailey on 10-03-2024 Protein [Mass/Vol] 7.0 g/dL 5.9-8.4 [facility] Triglycerides measurementOrd ered By: Ana Bailey on 10-03-2024 Triglyceride [Mass/Vol] 64 mg/dL <199 [facility] Comment on above: The drugs N-Acetylcy steine and Metamizole may falsely depress this assay. Normal range: <150 mg/dLBorderline High: 150-199 mg/dLHigh: 200-499 mg/dLVery High: >500 mg/dL No Panel InformationOrdered By: Sajan Dillon on 09-14-2024 [facility] Cardiac Rehab [address] [place] [address] CR - Individual Treatment Plan MR#: [id number] Acct: [id number] Name: NISSA TROTTER Rep #:[id number] : 1955 69 From: Sajan Lewis BS, RVT PCP: Dr. Teresa Boggs, DO DOS: 09/13/24 Exercise - Initial Assessment Physician Prescribed Exercise Modalities: Treadmill, Schwinn Airdyne AD-7 and SciFit Stepper Nutrition - Initial Assessment Program Goals Nutrition Program Goals Patient has diagnosis of Hyperlipidemia (ICD E78)?: Yes Weight Mgt (Other Care) Height: 5 ft 1 in Weight:: 153 lb BMI: 28.9 Core - Initial Assessment Hypertension Resting Blood Pressure:: 136/70 [place] [employer] Hypertension Guidelines Psychosocial - Initial [...] Session #:: 31 (more content not included)... [facility] Cardiology Visit Reporton Cardiology Visit Report [facility] [address] [place], [place] [address]lisa. 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 Normal [facility] Direct serum free thyroxine (FT4) measurementOrdered By: Tersea Boggs on 08-04-2024 Free T4 [Mass/Vol] 1.13 ng/dL 0.76-1.46 [facility] Free T3on 08-04-2024 Free T3 [Mass/Vol] 2.6 pg/mL Normal 2.18-3.98 [facility] Comment on above: Performed By: #### L 501.9520, L501.25899, L506.0400 ####[facility] [address] [place], [place], [address] Free K8Chlntwe By: Teresa afllon on 08-04-2024 Free T3 [Mass/Vol] 2.6 pg/mL 2.18-3.98 [facility] Free Triiodothyronine (T3) pg/dL 2.6 pg/mL 2.18-3.98 [facility] Serum or plasma thyroid stim ulating hormone (TSH) measurement (units/volume)Ordered By: Teresa Boggs on 08-04-2024 TSH Qn 0.398 uIU/mL 0.358-3.74 0 [facility] T4 Free Directon 08-04-2024 T4 FREE DIRECT 1.13 ng/dL Normal 0.76-1.46 [facility] Comment on above: Performed By: #### L 501.9520, L501.42438, L506.0400 ####[facility] [address] [place], [place], [address] TSH QnOrdered By: Teresa Boggs on 08-04-2024 Thyroid Stimulating Hormone (TSH) 0.398 uIU/mL 0.358-3.74 0 [facility] Thyroid Stim Hormone (TSH)on 08-04-2024 TSH 0.398 uIU/mL Normal 0.358-3.74 0 [facility] Comment on above: Performed By: #### L 501.9520, L501.93284, L506.0400 ####[facility] [address] [place], [address] No Panel Informationon 07-20 Influenza Types A,B Rapid (Clinic) Negative [facility] POC SARS CoV-2 Antigen Negative [facility] Urgent Care Visit Reporton 0 07-20-2024 Urgent Care Visit Report [facility] [address] , [address] [place], [place] [address] OFFICE VISIT Date of Service: 07/20/24 MR#: [id number] Acct: [id number] Name: NISSA TROTTER Rep #: [id number] : 1955 Provider: JENNY Zacarias Age/Sex: 68/F Location: [facility] Status: Signed Intake Vital Signs 06/19/24 07:11 07/20/24 09:21 Height 5 ft 1 in BP 142/72 H Blood Pressure Location Lt brachial Position Sitting Respiration 16 Pulse 88 Pulse Source NIBP Temp 98.1 F Temp Source Oral Pulse Oximetry (%) 98 Oxygen Delivery Method room air Intake Visit Reasons: SORE THROAT, COUGH Chief Complaint: ST, cough, DE JESUS, BA, congest 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 Normal [facility] CR - History AND Physicalon 05-22-2024 CR - History & Physical [facility] Cardiac Rehab [address] [place] [address] CR - History Physical MR#: [id number] Acct: [id number] Name: NISSA TROTTER Rep #: [id number] : 1955 68 From: Sajan Lewis BS, [...] Ultram) Adverse Reaction (Verified 05/10/24 15:40) Itching Sleep [...] Negative Advanced Directives Advanced Directives Power of Pc Network Technician: No Living Will: No Advance Directives Information [...] valve insufficiency Atherosclerosis of coronary artery of [place] heart with angina pectoris CVA (cerebral vascular [...] surgery (10/20/ more content not included)... Normal [facility] Cardiology Visit Reporton Cardiology Visit Report [facility] [address] [place] [address] OFFICE VISIT Date of Service: 05/10/24 MR#: [id number] Acct: [id number] Name: NISSA TROTTER Rep #: [id number] : 1955 Provider: CARLI guerrero Age/Sex: 68/F Location: [facility] Status: Signed HPI HPI History [...] Oximetry (%) 99 Intake Visit Reasons: S/P [facility] 05/04 Computer Programmer Analyst Required: No Is patient in pain?: No [...] you fallen in the past year?: No [facility] Medical History (more content not included)... Normal [facility] CBC (HEMOGRAM)on 05-04-2024 Erythrocyte distribution width (RBC) [Ratio] 12.5 % Normal 11.5-15.0 [facility] Comment on above: Performed By: #### L AB15, GAS005, PVN426, LAB18, [id number], QLZ606 #### Refuse Laborer: GARY ESPARZA ([id number]) [address] Hematocrit (Bld) [Volume fraction] 35.0 % Normal 35.0-47.0 [facility] Comment on above: Performed By: #### L AB15, OAC237, ELJ250, LAB18, [id number], IPQ079 #### Refuse Laborer: GARY ESPARZA ([id number]) [facility]) [address] [place] [address] Hemoglobin (Bld) [Mass/Vol] 12.1 g/dL Normal 11.7-16.0 [facility] Comment on above: Performed By: #### L AB15, JHK414, IOT482, LAB18, [id number], JHW085 #### Refuse Laborer: GARY ESPARZA ([phone]) [facility]) [address] [place] [address] MCH (RBC) [Entitic mass] 31.7 pg Normal 26.0-34.0 [facility] Comment on above: Performed By: #### L AB15, BLI100, IXE524, LAB18, [id number], NSH027 #### Refuse Laborer: GARY ESPARZA ([phone]) [facility] ([facility]) [address] [place] [address] MCHC 34.6 % Normal 30.5-36.0 [facility] Comment on above: Performed By: #### L AB15, VOX174, SFI830, LAB18, [id number], RVL715 #### Refuse Laborer: GARY ESPARZA ([id number]) [facility] ([facility]) [address] [place] [address] MCV (RBC) [Entitic vol] 91.6 fL Normal 77.0-99.0 [facility] Comment on above: Performed By: #### L AB15, PFS282, YBT366, LAB18, [id number], JWU729 #### Refuse Laborer: GARY ESPARZA ([id number]) [facility] ([facility]) [address] [place] [address] Platelet mean volume (Bld) [Entitic vol] 9.5 fL Normal 9.0-12.7 [facility] Comment on above: Performed By: #### L AB15, HKX286, JGS404, LAB18, [id number], GVH723 #### Refuse Laborer: GARY ESPARZA ([phone]) [facility] ([facility]) [address] [place] [address] Platelets (Bld) [#/Vol] 214 10*3/uL Normal 140-440 [facility] Comment on above: Performed By: #### L AB15, HFI784, CWZ215, LAB18, [id number], IBC333 #### Refuse Laborer: GARY ESPARZA ([phone]) [facility]) [address] [place] [address] RBC (Bld) [#/Vol] 3.82 10*6/uL Normal 3.80-5.20 [facility] Comment on above: Performed By: #### L AB15, CRR633, QRP053, LAB18, [id number], VRD105 #### Refuse Laborer: GARY ESPARZA ([phone]) [facility] ([facility]) [address] [place] [address] WBC (Bld) [#/Vol] 12.5 10*3/uL High 3.6-10.7 [facility] Comment on above: Performed By: #### L AB15, KRR325, RCY838, LAB18, [id number], GFE750 #### Refuse Laborer: GARY ESPARZA ([phone]) [facility] [address] [place] [address] CBC panel Auto (Bld)on 05-04 Erythrocyte distribution width (RBC) [Ratio] 12.5 % 11.5 - 15.0 % [facility] Hematocrit (Bld) [Volume fraction] 35 % 35.0 - 47.0 % [facility] Hemoglobin (Bld) [Mass/Vol] 12.1 g/dL 11.7 - 16.0 g/dL [facility] Interpretation and review of laboratory results Abnormal [facility] MCH (RBC) [Entitic mass] 31.7 pg 26.0 - 34.0 pg [facility] MCHC (RBC) [Mass/Vol] 34.6 % 30.5 - 36.0 % [facility] MCV (RBC) [Entitic vol] 91.6 fL 77.0 - 99.0 fL [facility] Platelet mean volume (Bld) [Entitic vol] 9.5 fL 9.0 - 12.7 fL [facility] Platelets (Bld) [#/Vol] 214 10*3/uL 140 - 440 10*3/uL [facility] RBC (Bld) [#/Vol] 3.82 10*6/uL 3.80 - 5.20 10*6/uL [facility] WBC (Bld) [#/Vol] 12.5 10*3/uL High 3.6 - 10.7 10*3/uL [facility] COMPREHENSIVE METABOLIC PANE Emiliano 05-04-2024 Albumin [Mass/Vol] 4.3 g/dL Normal 3.5-5.0 [facility] Comment on above: Performed By: #### L AB15, TCE761, TEH033, LAB18, [id number], RLO938 #### Refuse Laborer: GARY ESPARZA ([phone]) [facility] ([facility]) [address] [place] [address] ALP [Catalytic activity/Vol] 56 U/L Normal 38-126 [facility] Comment on above: Performed By: #### L AB15, XCU986, OJP254, LAB18, [id number], BZK045 #### Refuse Laborer: GARY ESPARZA ([phone]) [facility] ([facility]) [address] [place] [address] ALT [Catalytic activity/Vol] 26 U/L Normal 0-34 [facility] Comment on above: Performed By: #### L AB15, GNZ158, GWF515, LAB18, [id number], GAG473 #### Refuse Laborer: GARY ESPARZA ([id number]) [facility] ([facility]) [address] [place] [address] Anion gap [Moles/Vol] 11 mmol/L Normal 3-13 [facility] Comment on above: Performed By: #### L AB15, IQS367, LDZ478, LAB18, [id number], VWM593 #### Refuse Laborer: GARY ESPARZA ([id number]) [facility] ([facility]) [address] [place] [address] AST [Catalytic activity/Vol] 116 U/L High 15-46 [facility] Comment on above: Performed By: #### L AB15, XOS286, AOK884, LAB18, [id number], TPU233 #### Refuse Laborer: GARY ESPARZA ([id number]) [facility] ([facility]) [address] [place] [address] Bilirubin [Mass/Vol] 1.4 mg/dL High 0.2-1.3 [facility] Comment on above: Performed By: #### L AB15, XPW090, NDR953, LAB18, [id number], GQU007 #### Refuse Laborer: GARY ESPARZA ([phone]) [facility] ([facility] [address] [place] [address] Calcium [Mass/Vol] 9.1 mg/dL Normal 8.4-10.4 [facility] Comment on above: Performed By: #### L AB15, AUO964, TWD968, LAB18, [id number], SVI863 #### Refuse Laborer: GARY ESPARZA ([phone]) [facility] ([facility]) [address] [place] [address] Chloride [Moles/Vol] 103 mmol/L Normal 98-107 [facility] Comment on above: Performed By: #### L AB15, MVX113, UWB040, LAB18, [id number], YVL005 #### Refuse Laborer: GARY ESPARZA ([phone]) [facility] ([facility]) [address] [place] [address] CO2 [Moles/Vol] 18 mmol/L Low 22-30 [facility] Comment on above: Performed By: #### L AB15, UPN028, DDF949, LAB18, [id number], LSD098 #### Refuse Laborer: GARY ESPARZA ([phone]) [facility]) [address] [place] [address] Creatinine [Mass/Vol] 0.79 mg/dL Normal 0.52-1.04 [facility] Comment on above: Performed By: #### L AB15, EEW126, EZO658, LAB18, [id number], SCS968 #### Refuse Laborer: GARY ESPARZA ([phone]) [facility]) [address] [place] [address] GLOMERULAR FILTRATION RATE ML/MIN/1.73 SQ M.PREDICTED 81.1 mL/min/1.73m*2 Normal >60.0 [facility] Comment on above: Result Comment: Calc ulation based on the Chronic Kidney Disease Epidemiology Collaboration (CKD-EPI) equation refit without adjustment for race Performed By: #### L AB15, GES946, MUP795, LAB18, [id number], JYX255 #### Refuse Laborer: GARY ESPARZA ([id number]) [facility] ([facility] [address] [place] [address] Glucose [Mass/Vol] 126 mg/dL High 70-100 [facility] Comment on above: Performed By: #### L AB15, TTN851, HSL446, LAB18, [id number], LRR443 #### Refuse Laborer: GARY ESPARZA ([phone]) [facility] ([facility]) [address] [place] [address] Potassium [Moles/Vol] 4.2 mmol/L Normal 3.5-5.1 [facility] Comment on above: Performed By: #### L AB15, LPL072, INA632, LAB18, [id number], MXS692 #### Refuse Laborer: GARY ESPARZA ([id number]) [facility] ([facility]) [address] [place] [address] Protein [Mass/Vol] 7.0 g/dL Normal 6.3-8.2 [facility] Comment on above: Performed By: #### L AB15, XSS522, BPQ027, LAB18, [id number], UAZ962 #### Refuse Laborer: GARY ESPARZA ([phone]) [facility] ([facility]) [address] [place] [address] Sodium [Moles/Vol] 132 mmol/L Low 135-145 [facility] Comment on above: Performed By: #### L AB15, UXP593, DFQ190, LAB18, [id number], HST129 #### Refuse Laborer: GARY ESPARZA ([phone]) [facility] ([facility]) [address] [place] [address] Urea nitrogen [Mass/Vol] 13 mg/dL Normal 7-17 [facility] Comment on above: Performed By: #### L AB15, QPW346, GSD103, LAB18, [id number], ILY103 #### Refuse Laborer: GARY ESPARZA ([phone]) [facility] ([facility]) [address] [place] [address] Comprehensive metabolic 1998 panelon 05-04-2024 Albumin [Mass/Vol] 4.3 g/dL 3.5 - 5.0 g/dL [facility] ALP [Catalytic activity/Vol] 56 U/L 38 - 126 U/L [facility] ALT [Catalytic activity/Vol] 26 U/L 0 - 34 U/L [facility] Anion gap [Moles/Vol] 11 mmol/L 3 - 13 mmol/L [facility] AST [Catalytic activity/Vol] 116 U/L High 15 - 46 U/L [facility] Bilirubin [Mass/Vol] 1.4 mg/dL High 0.2 - 1 .3 mg/dL [facility] Calcium [Mass/Vol] 9.1 mg/dL 8.4 - 10. 4 mg/dL [facility] Chloride [Moles/Vol] 103 mmol/L 98 - 10 7 mmol/L [facility] CO2 [Moles/Vol] 18 mmol/L Low 22 - 30 mmol/L [facility] Creatinine [Mass/Vol] 0.79 mg/dL 0.52 - 1.04 mg/dL [facility] GFR/1.73 sq M.predicted (S/P/Bld) [Vol rate/Area] 81.1 mL/min - PINF [facility] Comment on above: Calculation based on the Chronic Kidney Disease Epidemiology Collaboration (CKD-EPI) equation refit without adjustment for race Glucose [Mass/Vol] 126 mg/dL High 70 - 100 mg/dL [facility] Interpretation and review of laboratory results Abnormal [facility] Potassium [Moles/Vol] 4.2 mmol/L 3.5 - 5.1 mmol/L [facility] Protein [Mass/Vol] 7 g/dL 6.3 - 8.2 g/dL [facility] Sodium [Moles/Vol] 132 mmol/L Low 135 - 145 mmol/L [facility] Urea nitrogen [Mass/Vol] 13 mg/dL 7 - 17 mg/dL [facility] ECG 12-LEADon 05-04-2024 ECG 12-LEAD IMPRESSION: Sinus rhythm Probable left atrial enlargement Nonspecific T abnormalities, lateral leads Minimal ST elevation, inferior leads Electronically Signed On 05-04-2024 10:30:48 EST by Davdi Del Castillo Normal [facility] No Panel InformationOrdered By: David Del Castillo on 05-04-2024 P [place] 52 degrees [facility] Work Phone: OK Interval 129 ms [employer] Phone: QRS [place] -6 degrees [employer] Phone: QRSD Interval 102 ms [employer] Phone: QT Interval 347 ms [employer] Phone: QTC Interval 412 ms [employer] Phone: T Wave [place] 62 degrees [employer] Phone: [employer] Phone: No Panel Informationon 05-04 Sinus rhythm Probable left atrial enlargement Nonspecific T abnormalities, lateral leads Minimal ST elevation, inferior leads Electronically Signed On 05-04-2024 10:30:48 EST by David Del Castillo David Santacruz MD - 05/04/2024 IMPRESSION: Sinus rhythm Probable left atrial enlargement Nonspecific T abnormalities, lateral leads Minimal ST elevation, inferior leads Electronically Signed On 05-04-2024 10:30:48 EST by Davidsteve Del Castillo [facility] Nursing Noteon 05-04-2024 Nursing Note Wound Care consulted for Pressure Injury Prevention. Pt's Alke= 20, pt is no longer at risk. Skin Care Precaution order set in place. Will continue to follow peripherally. Please voicera or secure chat message with any questions. Noreen Hunt RN [facility] Progress Noteon 05-04-2024 Progress Note Discharge instructio ns, medications, restrictions, activity, diet, cardiac rehab and follow-up reviewed and patient verbalized understanding. She will utilize Rmrp-as-Tcjf for her home-going Rx and was instructed to notify office with any difficulty obtaining Rx or if this becomes a financial burden. She was also informed to notify the office in the future if anyone asks her to hold or stop either ASA or ticagrelor (Brilinta) 90mg BID. [facility] Progress Note Nutrition rescreen completed. Chart reviewed. Patient to be monitored and followed by the diet controls technician. MIGUE Matos [facility] Progress Note ------- Attestation signed by David Patel MD at 05/04/2024 2:12 PM I, Dr. David Patel, saw and evaluated the patient on 05/04/24 in T1-110/ A. I personally obtained the forbes and critical portions of the history and physical exam. I reviewed the labs, imaging studies, and electronic medical record. I reviewed the Lead Sewage Plant Operator's documentation, and discussed the patient with the Lead Sewage Plant Operator. I agree with the Lead Sewage Plant Operator's medical decision making and have edited the [...] Patel MD, PhD Advanced Heart Failure Cardiology [employer] [facility] [place] 2:02 PM 05/04/24 [facility] [place] [facility] CCU PROGRESS NOTE Patient Name: Nissa Trotter : 1955 Subjective: Hospital Course: This 68-year-old female with a past medical history significant for CAD s/p CABG [2008], previous cardiac catheterization with PCI in , ELODIA, HLD, HTN who presented to [facility] on 05/02 after a cardiac cath at [facility] for consideration of PCI. The patient [...] ng/mL Laura (more content not included)... Normal W4 [facility] Vital signsOrdered By: David Del Castillo on 05-04-2024 Heart rate 85 /min bpm Kids Note Work Phone: [phone] 05-03-2024 [id number] Care Managment Initi al Assessment Date: 05/03/2024 Patient Name: Nissa Trotter : 1955 Patient Information Source of Information: Patient Cognition/Language: WFL - Within Functional Limits Permission given to speak with patient employee's representative/caregiver as indicated: Yes Confirmation of Payer with patient/family: Yes Payer Name: [facility] : No Confirmation of Primary Care [...] with: Alone Support Systems: Children, Family members, Gnosticist/nathaniel community Activities of Daily Living Ambulation: Independent Bathing/Dressing: Independent Elimination/Continence/Toil eting: Independent Feeding: Independent Who Assists with Activities of Daily Living: Instrumental Activities of Daily Living Prescription Coverage: Yes Pharmacy Used: [facility] Medication Management: Mail order Who assists [...] and denies discharge needs. Skye Real RN Normal [facility] CBC (HEMOGRAM)on 05-03-2024 Erythrocyte distribution width (RBC) [Ratio] 13.1 % Normal 11.5-15.0 [facility] Comment on above: Performed By: #### L AB15, ZZY431, JBT242, LAB18, [id number], [id number] #### Refuse Laborer: GARY ESPARZA ([phone]) [facility]) [address] [place] [address] Hematocrit (Bld) [Volume fraction] 33.6 % Low 35.0-47.0 [facility] Comment on above: Performed By: #### L AB15, TUW732, QPE005, LAB18, [id number], [id number] #### Refuse Laborer: GARY ESPARZA ([id number]) [facility]) [address] [place] [address] Hemoglobin (Bld) [Mass/Vol] 11.6 g/dL Low 11.7-16.0 [facility] Comment on above: Performed By: #### L AB15, ZCP110, BWI802, LAB18, [id number], BKZ552 #### Refuse Laborer: GARY ESPARZA ([phone]) [facility]) [address] [place] [address] MCH (RBC) [Entitic mass] 31.7 pg Normal 26.0-34.0 [facility] Comment on above: Performed By: #### L AB15, SEF612, WYZ981, LAB18, [id number], GQR774 #### Refuse Laborer: GARY ESPARZA ([phone]) [facility]) [address] [place] [address] MCHC 34.5 % Normal 30.5-36.0 [facility] Comment on above: Performed By: #### L AB15, HGK308, PNI041, LAB18, [id number], [id number] #### Refuse Laborer: GARY ESPARZA ([phone]) [facility]) [address] [place] [address] MCV (RBC) [Entitic vol] 91.8 fL Normal 77.0-99.0 [facility] Comment on above: Performed By: #### L AB15, NXJ270, ILB860, LAB18, [id number], [id number] #### Refuse Laborer: GARY ESPARZA ([phone]) [facility]) [address] [place] [address] Platelet mean volume (Bld) [Entitic vol] 10.2 fL Normal 9.0-12.7 [facility] Comment on above: Performed By: #### L AB15, FFX543, WSZ769, LAB18, [id number], WFZ428 #### Refuse Laborer: GARY ESPARZA ([id number]) [facility] ([facility]) [address] [place] [address] Platelets (Bld) [#/Vol] 219 10*3/uL Normal 140-440 [facility] Comment on above: Performed By: #### L AB15, JLS698, VMY266, LAB18, [id number], HBP341 #### Refuse Laborer: GARY ESPARZA ([id number]) [facility] ([facility]) [address] [place] [address] RBC (Bld) [#/Vol] 3.66 10*6/uL Low 3.80-5.20 [facility] Comment on above: Performed By: #### L AB15, TJP917, ECK954, LAB18, [id number], PRG120 #### Refuse Laborer: GARY ESPARZA ([id number]) [facility] ([facility]) [address] [place] [address] WBC (Bld) [#/Vol] 11.9 10*3/uL High 3.6-10.7 [facility] Comment on above: Performed By: #### L AB15, BXV980, DWE521, LAB18, [id number], OVE847 #### Refuse Laborer: GARY ESPARZA ([id number]) [facility] ([facility]) [address] [place] [address] CBC panel Auto (Bld)on 05-03 Erythrocyte distribution width (RBC) [Ratio] 13.1 % 11.5 - 15.0 % [facility] Hematocrit (Bld) [Volume fraction] 33.6 % Low 35.0 - 47.0 % [facility] Hemoglobin (Bld) [Mass/Vol] 11.6 g/dL Low 11.7 - 16.0 g/dL [facility] Interpretation and review of laboratory results Abnormal [facility] MCH (RBC) [Entitic mass] 31.7 pg 26.0 - 34.0 pg [facility] MCHC (RBC) [Mass/Vol] 34.5 % 30.5 - 36.0 % [facility] MCV (RBC) [Entitic vol] 91.8 fL 77.0 - 99.0 fL [facility] Platelet mean volume (Bld) [Entitic vol] 10.2 fL 9.0 - 12.7 fL [facility] Platelets (Bld) [#/Vol] 219 10*3/uL 140 - 440 10*3/uL [facility] RBC (Bld) [#/Vol] 3.66 10*6/uL Low 3.80 - 5.20 10*6/uL [facility] WBC (Bld) [#/Vol] 11.9 10*3/uL High 3.6 - 10.7 10*3/uL [facility] CK TOTAL AND CKMBon 05-03-20 CK [Catalytic activity/Vol] 503 U/L High 30-170 [facility] Comment on above: Performed By: #### L AB15, EHW235, PJA464, LAB18, [id number], KKA805 #### Refuse Laborer: GARY ESPARZA ([phone]) [facility]) [address] [place] [address] CK.MB [Mass/Vol] 49.0 ng/mL High 0.0-4.4 [facility] Comment on above: Performed By: #### L AB15, RGO846, ERJ539, LAB18, [id number], FNP227 #### Refuse Laborer: GARY ESPARZA ([id number]) [facility] ([facility]) [address] [place] [address] RELATIVE INDEX 9.7 High 0.0-3.0 [facility] Comment on above: Performed By: #### L AB15, CRA310, QFQ330, LAB18, [id number], EJA908 #### Refuse Laborer: GARY ESPARZA ([id number]) [facility] ([facility]) [address] [place] [address] CK.total/Creatine kinase.MB [Catalytic ratio]on 05-03-2024 CK [Catalytic activity/Vol] 503 U/L High 30 - 170 U/L [facility] CK.MB [Mass/Vol] 49 ng/mL High 0.0 - 4.4 ng/mL [facility] Interpretation and review of laboratory results Abnormal [facility] RELATIVE INDEX 9.7 High 0.0 - 3.0 [facility] COMPREHENSIVE METABOLIC PANE Emiliano 05-03-2024 Albumin [Mass/Vol] 4.2 g/dL Normal 3.5-5.0 [facility] Comment on above: Performed By: #### L AB15, YVT430, QKG913, LAB18, [id number], UEG840 #### Refuse Laborer: GARY ESPARZA ([id number]) [facility] ([facility]) [address] [place] [address] ALP [Catalytic activity/Vol] 53 U/L Normal 38-126 [facility] Comment on above: Performed By: #### L AB15, WPH605, IWL889, LAB18, [id number], ARC179 #### Refuse Laborer: GARY ESPARZA ([id number]) [facility] ([facility]) [address] [place] [address] ALT [Catalytic activity/Vol] 23 U/L Normal 0-34 [facility] Comment on above: Performed By: #### L AB15, CSG648, ICD613, LAB18, [id number], ENY488 #### Refuse Laborer: GARY ESPARZA ([id number]) [facility] ([facility]) [address] [place] [address] Anion gap [Moles/Vol] 6 mmol/L Normal 3-13 [facility] Comment on above: Performed By: #### L AB15, TKH992, TRK622, LAB18, [id number], OEP015 #### Refuse Laborer: GARY ESPARZA ([id number]) [facility] ([facility]) [address] [place] [address] AST [Catalytic activity/Vol] 93 U/L High 15-46 [facility] Comment on above: Performed By: #### L AB15, YDK870, YIR304, LAB18, [id number], WGG893 #### Refuse Laborer: GARY ESPARZA ([id number]) [facility] [address] [place] [address] Bilirubin [Mass/Vol] 1.4 mg/dL High 0.2-1.3 [facility] Comment on above: Performed By: #### L AB15, LPM075, UEO227, LAB18, [id number], OSC686 #### Refuse Laborer: GARY ESPARZA ([id number]) [facility] [address] [place] [address] Calcium [Mass/Vol] 9.2 mg/dL Normal 8.4-10.4 [facility] Comment on above: Performed By: #### L AB15, THP099, LZL890, LAB18, [id number], DIL616 #### Refuse Laborer: GARY ESPARZA ([phone]) [facility] ([facility]) [address] [place] [address] [place] Chloride [Moles/Vol] 108 mmol/L High 98-107 [facility] Comment on above: Performed By: #### L AB15, FGH138, DHN646, LAB18, [id number], TSF371 #### Refuse Laborer: GARY ESPARZA ([id number]) [facility] ([facility]) [address] [place] [address] CO2 [Moles/Vol] 21 mmol/L Low 22-30 [facility] Comment on above: Performed By: #### L AB15, MIT368, YCS659, LAB18, [id number], PUZ423 #### Refuse Laborer: GARY ESPARZA ([id number]) [facility] ([facility] [address] [place] [address] Creatinine [Mass/Vol] 0.81 mg/dL Normal 0.52-1.04 [facility] Comment on above: Performed By: #### L AB15, TJT711, JAZ682, LAB18, [id number], KHV893 #### Refuse Laborer: GARY ESPARZA ([id number]) [facility] ([facility] [address] [place] [address] GLOMERULAR FILTRATION RATE ML/MIN/1.73 SQ M.PREDICTED 78.7 mL/min/1.73m*2 Normal >60.0 [facility] Comment on above: Result Comment: Calc ulation based on the Chronic Kidney Disease Epidemiology Collaboration (CKD-EPI) equation refit without adjustment for race Performed By: #### L AB15, GGE280, LRA139, LAB18, [id number], MMI693 #### Refuse Laborer: GARY ESPARZA ([id number]) [facility]) [address] [place] [address] Glucose [Mass/Vol] 119 mg/dL High 70-100 [facility] Comment on above: Performed By: #### L AB15, SKC946, OLO222, LAB18, [id number], AZV798 #### Refuse Laborer: GARY ESPARZA ([id number]) [facility] ([facility]) [address] [place] [address] Potassium [Moles/Vol] 4.9 mmol/L Normal 3.5-5.1 [facility] Comment on above: Performed By: #### L AB15, RTK546, KMP579, LAB18, [id number], XZC748 #### Refuse Laborer: GARY ESPARZA ([phone]) [facility]) [address] [place] [address] Protein [Mass/Vol] 6.8 g/dL Normal 6.3-8.2 [facility] Comment on above: Performed By: #### L AB15, CJS406, XHQ497, LAB18, [id number], TFJ645 #### Refuse Laborer: GARY ESPARZA ([id number]) [facility]) [address] [place] [address] Sodium [Moles/Vol] 135 mmol/L Normal 135-145 [facility] Comment on above: Performed By: #### L AB15, ZJX948, TOB410, LAB18, [id number], OTF970 #### Refuse Laborer: GARY ESPARZA ([id number]) [facility]) [address] [place] [address] [place] Urea nitrogen [Mass/Vol] 15 mg/dL Normal 7-17 [facility] Comment on above: Performed By: #### L AB15, ZAB367, QGT200, LAB18, [id number], NCA574 #### Refuse Laborer: GARY ESPARZA ([id number]) [facility] ([facility]) [address] [place] [address] Comprehensive metabolic 1998 panelon 05-03-2024 Albumin [Mass/Vol] 4.2 g/dL 3.5 - 5.0 g/dL [facility] ALP [Catalytic activity/Vol] 53 U/L 38 - 126 U/L [facility] ALT [Catalytic activity/Vol] 23 U/L 0 - 34 U/L [facility] Anion gap [Moles/Vol] 6 mmol/L 3 - 13 mmol/L [facility] AST [Catalytic activity/Vol] 93 U/L High 15 - 46 U/L [facility] Bilirubin [Mass/Vol] 1.4 mg/dL High 0.2 - 1 .3 mg/dL [facility] Calcium [Mass/Vol] 9.2 mg/dL 8.4 - 10. 4 mg/dL [facility] Chloride [Moles/Vol] 108 mmol/L High 98 - 10 7 mmol/L [facility] CO2 [Moles/Vol] 21 mmol/L Low 22 - 30 mmol/L [facility] Creatinine [Mass/Vol] 0.81 mg/dL 0.52 - 1.04 mg/dL [facility] GFR/1.73 sq M.predicted (S/P/Bld) [Vol rate/Area] 78.7 mL/min - PINF [facility] Comment on above: Calculation based on the Chronic Kidney Disease Epidemiology Collaboration (CKD-EPI) equation refit without adjustment for race Glucose [Mass/Vol] 119 mg/dL High 70 - 100 mg/dL [facility] Interpretation and review of laboratory results Abnormal [facility] Potassium [Moles/Vol] 4.9 mmol/L 3.5 - 5.1 mmol/L [facility] Protein [Mass/Vol] 6.8 g/dL 6.3 - 8.2 g/dL [facility] Sodium [Moles/Vol] 135 mmol/L 135 - 145 mmol/L [facility] Urea nitrogen [Mass/Vol] 15 mg/dL 7 - 17 mg/dL [facility] ECG 12-LEADon 05-03-2024 ECG 12-LEAD IMPRESSION: Sinus rhythm Multiple ventricular premature complexes Borderline prolonged QT interval Electronically Signed On 05-03-2024 08:03:37 EST [facility] ECG 12-LEAD IMPRESSION: Sinus rhythm ST elevations suggest acute anterior and inferior wall injury Electronically Signed On 05-03-2024 08:00:12 EST by Dez Mena [facility] ECG 12-LEAD IMPRESSION: Sinus rhythm Probable left atrial enlargement ST elevation, consider anterior and inferior wall injury Electronically Signed On 05-03-2024 07:58:34 EST by [facility] Trina [facility] ECG 12-LEAD IMPRESSION: Sinus rhythm Probable left atrial enlargement Low voltage, extremity leads ST elevations consider anterior wall and inferior wall injury Electronically Signed On 05-03-2024 07:58:05 EST by [facility] Trina [facility] ECG 12-LEAD IMPRESSION: Sinus rhythm Electronically Signed On 05-03-2024 07:53:01 EST [facility] 12-LEAD IMPRESSION: Sinus rhythm Atrial premature complex Low voltage, extremity leads Electronically Signed On 05-03-2024 07:44:31 EST by [facility] - Chemistry and C hemistry - challengeon 05-03-2024 Troponin I.cardiac [Mass/Vol] 11.8 ng/mL Critically high NINF - 0.034 ng/mL [facility] Panel InformationOrdered By: Dez Mena on 05-03-2024 P [place] 62 degrees [employer] Phone: OK Interval 151 ms [employer] Phone: QRS [place] 8 degrees [employer] Phone: QRSD Interval 102 ms [employer] Phone: QT Interval 445 ms [employer] Phone: QTC Interval 489 ms [employer] Phone: T Wave [place] 14 degrees [employer] Phone: [phone] [employer] Phone: No Panel Informationon 05-03 Sinus rhythm Multiple ventricular premature complexes Borderline prolonged QT interval Electronically Signed On 05-03-2024 08:03:37 EST by Dez Mcdonald MD - 05/03/2024 IMPRESSION: Sinus rhythm Multiple ventricular premature complexes Borderline prolonged QT interval Electronically Signed On 05-03-2024 08:03:37 EST by Dez Mena [facility] P [place] 57 degrees [facility] [place] Interval 155 ms [facility] QRS [place] 33 degrees [facility] QRSD Interval 92 ms [facility] QT Interval 422 ms [facility] QTC Interval 473 ms [facility] T Wave [place] 71 degrees [facility] Sinus rhythm ST elevations suggest acute anterior and inferior wall injury Electronically Signed On 05-03-2024 08:00:12 EST by Dez Mcdonald MD - 05/03/2024 IMPRESSION: Sinus rhythm ST elevations suggest acute anterior and inferior wall injury Electronically Signed On 05-03-2024 08:00:12 EST by Dez Mena [facility] P [place] 62 degrees [facility] [place] Interval 140 ms [facility] QRS [place] 28 degrees [facility] QRSD Interval 99 ms [facility] QT Interval 417 ms [facility] QTC Interval 475 ms [facility] T Wave [place] 70 degrees [facility] Sinus rhythm Probable left atrial enlargement ST elevation, consider anterior and inferior wall injury Electronically Signed On 05-03-2024 07:58:34 EST by Dez Mcdonald MD - 05/03/2024 IMPRESSION: Sinus rhythm Probable left atrial enlargement ST elevation, consider anterior and inferior wall injury Electronically Signed On 05-03-2024 07:58:34 EST by Dez Mena [facility] P [place] 60 degrees [facility] [place] Interval 145 ms [facility] QRS [place] 20 degrees [facility] QRSD Interval 96 ms [facility] QT Interval 413 ms [facility] QTC Interval 471 ms [facility] T Wave [place] 64 degrees [facility] Sinus rhythm Probable [...] On 05-03-2024 07:58:05 EST by [facility] [place] 61 degrees [facility] [place] Interval 149 ms [facility] QRS [place] 7 degrees [facility] QRSD Interval 103 ms [facility] QT Interval 463 ms [facility] QTC Interval 471 ms [facility] T Wave [place] 53 degrees [facility] Sinus rhythm Electronically Signed On 05-03-2024 07:53:01 EST by Dez Mcdonald MD - 05/03/2024 IMPRESSION: Sinus rhythm Electronically Signed On 05-03-2024 07:53:01 EST by Dez Mena [facility] P [place] 55 degrees [facility] [place] Interval 148 ms [facility] QRS Ingl[place] -7 degrees [facility] QRSD Interval 97 ms [facility] QT Interval 407 ms [facility] QTC Interval 423 ms [facility] T Wave [place] 46 degrees [facility] Sinus rhythm Atrial premature complex Low voltage, extremity leads Electronically Signed On 05-03-2024 07:44:31 EST by Dez Mcdonald MD - 05/03/2024 IMPRESSION: Sinus rhythm Atrial premature complex Low voltage, extremity leads Electronically Signed On 05-03-2024 07:44:31 EST by [facility] [employer] Progress Noteon 05-03-2024 Progress Note ------- Attestation signed by David Patel MD at 05/03/2024 2:11 PM I, Dr. David Patel, saw and evaluated the patient on 05/03/24 in T1-110/T1-110 A. I personally obtained the forbes and critical portions of the history and physical exam. I reviewed the labs, imaging studies, and electronic medical record. I reviewed the Lead Sewage Plant Operator's documentation, and discussed the patient with the Lead Sewage Plant Operator. I agree with the Lead Sewage Plant Operator's medical decision making and have edited the [...] Patel MD, PhD Advanced Heart Failure Cardiology [employer] [facility] [place] 2:11 PM 05/03/24 [facility] [place] [facility] CCU PROGRESS NOTE Patient Name: Nissa Trotter : 1955 Subjective: Hospital Course: This 68-year-old female with a past medical history significant for CAD s/p CABG [2008], previous cardiac catheterization with PCI in , ELODIA, HLD, HTN who presented to [facility] on 05/02 after a cardiac cath at [facility] for consideration of PCI. The patient [...] 05/02/2024 CB (more content not included)... Normal [facility] TROPONIN Ion 05-03-2024 Troponin I.cardiac [Mass/Vol] 11.800 ng/mL Critically high <0.034 [facility] Comment on above: Result Comment: VIDA Benitez COMMENTS: Patients with high levels of Biotin oral intake (ie >5 mg/day) may have falsely decreased Troponin levels. Performed By: #### L AB15, WNF826, NUZ959, LAB18, [id number], DNM347 #### Refuse Laborer: GARY ESPARZA ([phone]) [facility] ([facility]) [address] [place] [address] Troponin I.cardiac [Mass/Vol ]on 05-03-2024 Interpretation and review of laboratory results Abnormal [facility] Patients with high l evels of Biotin oral intake (ie >5 mg/day) may have falsely decreased Troponin levels. [facility] Vital signsOrdered By: Jolynn Mena on 05-03-2024 Heart rate 69 /min bpm [facility] [employer] Work Phone: Vital signson 05-03-2024 Heart rate 75 /min bpm [facility] Heart rate 78 /min bpm [facility] Heart rate 78 /min bpm [facility] Heart rate 62 /min bpm [facility] Heart rate 66 /min bpm [facility] 30on 05-02-2024 30 Problem: Pain - Adul [...] discharge needs are met Outcome: Progressing Normal [facility] APTTon 05-02-2024 aPTT Coag (Bld) [Time] 70.3 s High 20.0-30.5 [facility] Comment on above: Result Comment: VIDA Benitez COMMENTS: NOTE: The therapeutic time for Heparin anticoagulation, based on Xa activity inhibition, is an APTT of 46-80 seconds. Performed By: #### L AB325 #### Refuse Laborer: GARY [id number]) [address] aPTT Coag (Bld) [Time] 25.6 s Normal 20.0-30.5 [facility] Comment on above: Result Comment: VIDA Benitez COMMENTS: NOTE: The therapeutic time for Heparin anticoagulation, based on Xa activity inhibition, is an APTT of 46-80 seconds. Performed By: #### L AB15, CCJ828, KAY895, LAB18, [id number], QFP402 #### Refuse Laborer: GARY [id number]) [address] Anesthesia Noteon 05-02-2024 Anesthesia Note Sedation Plan [...] proceed to administer sedation as planned. Normal [facility] BASIC METABOLIC PANELon 110 Anion gap [Moles/Vol] 13 mmol/L Normal 3-13 [facility] Comment on above: Performed By: #### L AB15, WOK417, IBS166, LAB18, [id number], AGD724 #### Refuse Laborer: GARY ESPARZA ([id number]) [facility] ([facility]) [address] [place] [address] Calcium [Mass/Vol] 9.0 mg/dL Normal 8.4-10.4 [facility] Comment on above: Performed By: #### L AB15, DYF570, LQR148, LAB18, [id number], BUJ991 #### Refuse Laborer: GARY ESPARZA ([id number]) [facility] ([facility]) [address] [place] [address] Chloride [Moles/Vol] 107 mmol/L Normal 98-107 [facility] Comment on above: Performed By: #### L AB15, ERN612, NXM532, LAB18, [id number], LIL825 #### Refuse Laborer: GARY ESPARZA ([id number]) [facility] ([facility]) [address] [place] [address] CO2 [Moles/Vol] 17 mmol/L Low 22-30 [facility] Comment on above: Performed By: #### L AB15, QJT044, EYL737, LAB18, [id number], TVX566 #### Refuse Laborer: GARY ESPARZA ([phone]) [facility]) [address] [place] [address] Creatinine [Mass/Vol] 0.93 mg/dL Normal 0.52-1.04 [facility] Comment on above: Performed By: #### L AB15, YYA198, XLY604, LAB18, [id number], CWY094 #### Refuse Laborer: GARY ESPARZA ([phone]) [facility]) [address] [place] [address] GLOMERULAR FILTRATION RATE ML/MIN/1.73 SQ M.PREDICTED 66.7 mL/min/1.73m*2 Normal >60.0 [facility] Comment on above: Result Comment: Calc ulation based on the Chronic Kidney Disease Epidemiology Collaboration (CKD-EPI) equation refit without adjustment for race Performed By: #### L AB15, JIS901, CKW049, LAB18, [id number], SQZ307 #### Refuse Laborer: GARY ESPARZA ([phone]) [facility] ([facility]) [address] [place] [address] Glucose [Mass/Vol] 134 mg/dL High 70-100 [facility] Comment on above: Performed By: #### L AB15, DVN563, CAE383, LAB18, [id number], DUK889 #### Refuse Laborer: GARY ESPARZA ([phone]) [facility] ([facility]) [address] [place] [address] Potassium [Moles/Vol] 3.8 mmol/L Normal 3.5-5.1 [facility] Comment on above: Performed By: #### L AB15, DPX834, WAG600, LAB18, [id number], GRP758 #### Refuse Laborer: GARY ESPARZA ([phone]) [facility] ([facility]) [address] [place] [address] [place] Sodium [Moles/Vol] 137 mmol/L Normal 135-145 [facility] Comment on above: Performed By: #### L AB15, IXB356, FFK315, LAB18, [id number], QZP646 #### Refuse Laborer: GARY ESPARZA ([phone]) [facility]) [address] [place] [address] Urea nitrogen [Mass/Vol] 14 mg/dL Normal 7-17 [facility] Comment on above: Performed By: #### L AB15, ROG671, OAX871, LAB18, [id number], NTG352 #### Refuse Laborer: GARY ESPARZA ([phone]) [facility] ([facility]) [address] [place] [address] Anion gap [Moles/Vol] 15 mmol/L High 3-13 [facility] Comment on above: Performed By: #### L AB15, ENM535, AXQ722, LAB18, [id number], DEG716 #### Refuse Laborer: GARY ESPARZA ([phone]) [facility] ([facility]) [address] [place] [address] Calcium [Mass/Vol] 9.8 mg/dL Normal 8.4-10.4 [facility] Comment on above: Performed By: #### L AB15, AMR937, AHV880, LAB18, [id number], FXF005 #### Refuse Laborer: GARY ESPARZA ([phone]) [facility] ([facility]) [address] [place] [address] Chloride [Moles/Vol] 106 mmol/L Normal 98-107 [facility] Comment on above: Performed By: #### L AB15, EYM432, GSL834, LAB18, [id number], RBZ775 #### Refuse Laborer: GARY ESPARZA ([id number]) [facility] ([facility]) [address] [place] [address] CO2 [Moles/Vol] 17 mmol/L Low 22-30 [facility] Comment on above: Performed By: #### L AB15, TWN591, PHZ156, LAB18, [id number], WSQ593 #### Refuse Laborer: GARY ESPARZA ([phone]) [facility] ([facility]) [address] [place] [address] Creatinine [Mass/Vol] 0.77 mg/dL Normal 0.52-1.04 [facility] Comment on above: Performed By: #### L AB15, YRO263, UMO656, LAB18, [id number], UBB434 #### Refuse Laborer: GARY ESPARZA ([phone]) [facility] ([facility]) [address] [place] [address] GLOMERULAR FILTRATION RATE ML/MIN/1.73 SQ M.PREDICTED 83.6 mL/min/1.73m*2 Normal >60.0 [facility] Comment on above: Result Comment: Calc ulation based on the Chronic Kidney Disease Epidemiology Collaboration (CKD-EPI) equation refit without adjustment for race Performed By: #### L AB15, NEU031, GDY771, LAB18, [id number], WNC741 #### Refuse Laborer: GARY ESPARZA ([phone]) [facility]) [address] [place] [address] Glucose [Mass/Vol] 112 mg/dL High 70-100 [facility] Comment on above: Performed By: #### L AB15, CUY799, LHB099, LAB18, [id number], OZY607 #### Refuse Laborer: GAYR ESPARZA ([phone]) [facility]) [address] [place] [address] Potassium [Moles/Vol] 3.6 mmol/L Normal 3.5-5.1 [facility] Comment on above: Performed By: #### L AB15, YPY454, XRP830, LAB18, [id number], NWL466 #### Refuse Laborer: GARY ESPARZA ([phone]) [facility]) [address] [place] [address] Sodium [Moles/Vol] 138 mmol/L Normal 135-145 [facility] Comment on above: Performed By: #### L AB15, CWS267, NIL343, LAB18, [id number], EPD075 #### Refuse Laborer: GARY ESPARZA ([phone]) [facility]) [address] [place] [address] Urea nitrogen [Mass/Vol] 15 mg/dL Normal 7-17 [facility] Comment on above: Performed By: #### L AB15, UNZ498, APT078, LAB18, [id number], QTW158 #### Refuse Laborer: GARY ESPARZA ([phone]) [facility]) [address] [place] [address] Basic metabolic 1998 panelOr dered By: Fatoumata Moy on 05-02-2024 Anion gap [Moles/Vol] 13 mmol/L 3 - 13 mmol/L [facility] Calcium [Mass/Vol] 9 mg/dL 8.4 - 10. 4 mg/dL [facility] Chloride [Moles/Vol] 107 mmol/L 98 - 10 7 mmol/L [facility] CO2 [Moles/Vol] 17 mmol/L Low 22 - 30 mmol/L [facility] Creatinine [Mass/Vol] 0.93 mg/dL 0.52 - 1.04 mg/dL [facility] GFR/1.73 sq M.predicted (S/P/Bld) [Vol rate/Area] 66.7 mL/min - PINF [facility] Comment on above: Calculation based on the Chronic Kidney Disease Epidemiology Collaboration (CKD-EPI) equation refit without adjustment for race Glucose [Mass/Vol] 134 mg/dL High 70 - 100 mg/dL [facility] Interpretation and review of laboratory results Abnormal [facility] Potassium [Moles/Vol] 3.8 mmol/L 3.5 - 5.1 mmol/L [facility] Sodium [Moles/Vol] 137 mmol/L 135 - 145 mmol/L [facility] Urea nitrogen [Mass/Vol] 14 mg/dL 7 - 17 mg/dL [facility] Basic metabolic 1998 panelon 05-02-2024 Anion gap [Moles/Vol] 15 mmol/L High 3 - 13 mmol/L [facility] Calcium [Mass/Vol] 9.8 mg/dL 8.4 - 10. 4 mg/dL [facility] Chloride [Moles/Vol] 106 mmol/L 98 - 10 7 mmol/L [facility] CO2 [Moles/Vol] 17 mmol/L Low 22 - 30 mmol/L [facility] Creatinine [Mass/Vol] 0.77 mg/dL 0.52 - 1.04 mg/dL [facility] GFR/1.73 sq M.predicted (S/P/Bld) [Vol rate/Area] 83.6 mL/min - PINF [facility] Comment on above: Calculation based on the Chronic Kidney Disease Epidemiology Collaboration (CKD-EPI) equation refit without adjustment for race Glucose [Mass/Vol] 112 mg/dL High 70 - 100 mg/dL [facility] Interpretation and review of laboratory results Abnormal [facility] Potassium [Moles/Vol] 3.6 mmol/L 3.5 - 5.1 mmol/L [facility] Sodium [Moles/Vol] 138 mmol/L 135 - 145 mmol/L [facility] Urea nitrogen [Mass/Vol] 15 mg/dL 7 - 17 mg/dL [facility] CBC W Auto Differential pane l (Bld)Ordered By: Renee Cohen on 05-02-2024 Basophils (Bld) [#/Vol] 0 10*3/uL 0.0 - 0.2 10*3/uL [facility] Basophils/100 WBC (Bld) 0.3 % 0.0 - 2.0 % [facility] Eosinophils (Bld) [#/Vol] 0.1 10*3/uL 0.0 - 0.5 10*3/uL [facility] Eosinophils/100 WBC (Bld) 1.3 % 0.0 - 6.0 % [facility] Erythrocyte distribution width (RBC) [Ratio] 12.6 % 11.5 - 15.0 % [facility] Hematocrit (Bld) [Volume fraction] 31.7 % Low 35.0 - 47.0 % [facility] Hemoglobin (Bld) [Mass/Vol] 11 g/dL Low 11.7 - 16.0 g/dL [facility] Immature granulocytes (Bld) [#/Vol] 0 10*3/uL NINF - 0.1 10*3/uL [facility] Immature granulocytes/100 WBC (Bld) 0.4 % 0.0 - 2.0 % [facility] Interpretation and review of laboratory results Abnormal [facility] Lymphocytes (Bld) [#/Vol] 1.4 10*3/uL 1.0 - 4.3 10*3/uL [facility] Lymphocytes/100 WBC (Bld) 13.4 % Low 15.0 - 45.0 % [facility] MCH (RBC) [Entitic mass] 31.4 pg 26.0 - 34.0 pg [facility] MCHC (RBC) [Mass/Vol] 34.7 % 30.5 - 36.0 % [facility] MCV (RBC) [Entitic vol] 90.6 fL 77.0 - 99.0 fL [facility] Monocytes (Bld) [#/Vol] 0.6 10*3/uL 0.0 - 0.9 10*3/uL [facility] Monocytes/100 WBC (Bld) 6.1 % 5.0 - 13.0 % [facility] Neutrophils (Bld) [#/Vol] 7.9 10*3/uL High 1.8 - 7.5 10*3/uL [facility] Neutrophils/100 WBC (Bld) 78.5 % 38.0 - 82.0 % [facility] Nucleated RBC/100 WBC (Bld) [Ratio] 0 % [facility] Platelet mean volume (Bld) [Entitic vol] 9.5 fL 9.0 - 12.7 fL [facility] Platelets (Bld) [#/Vol] 237 10*3/uL 140 - 440 10*3/uL [facility] RBC (Bld) [#/Vol] 3.5 10*6/uL Low 3.80 - 5.20 10*6/uL [facility] WBC (Bld) [#/Vol] 10 10*3/uL 3.6 - 10.7 10*3/uL [facility] CBC W Auto Differential pane l (Bld)on 05-02-2024 Basophils (Bld) [#/Vol] 0 10*3/uL 0.0 - 0.2 10*3/uL [facility] Basophils/100 WBC (Bld) 0.4 % 0.0 - 2.0 % [facility] Eosinophils (Bld) [#/Vol] 0.3 10*3/uL 0.0 - 0.5 10*3/uL [facility] Eosinophils/100 WBC (Bld) 2.9 % 0.0 - 6.0 % [facility] Erythrocyte distribution width (RBC) [Ratio] 12.4 % 11.5 - 15.0 % [facility] Hematocrit (Bld) [Volume fraction] 39.4 % 35.0 - 47.0 % [facility] Hemoglobin (Bld) [Mass/Vol] 13.6 g/dL 11.7 - 16.0 g/dL [facility] Immature granulocytes (Bld) [#/Vol] 0 10*3/uL NINF - 0.1 10*3/uL [facility] Immature granulocytes/100 WBC (Bld) 0.2 % 0.0 - 2.0 % [facility] Interpretation and review of laboratory results Normal [facility] Lymphocytes (Bld) [#/Vol] 2 10*3/uL 1.0 - 4.3 10*3/uL [facility] Lymphocytes/100 WBC (Bld) 23.2 % 15.0 - 45.0 % [facility] MCH (RBC) [Entitic mass] 31.3 pg 26.0 - 34.0 pg [facility] MCHC (RBC) [Mass/Vol] 34.5 % 30.5 - 36.0 % [facility] MCV (RBC) [Entitic vol] 90.6 fL 77.0 - 99.0 fL [facility] Monocytes (Bld) [#/Vol] 0.6 10*3/uL 0.0 - 0.9 10*3/uL [facility] Monocytes/100 WBC (Bld) 7.5 % 5.0 - 13.0 % [facility] Neutrophils (Bld) [#/Vol] 5.6 10*3/uL 1.8 - 7.5 10*3/uL [facility] Neutrophils/100 WBC (Bld) 65.8 % 38.0 - 82.0 % [facility] Nucleated RBC/100 WBC (Bld) [Ratio] 0 % [facility] Platelet mean volume (Bld) [Entitic vol] 9.5 fL 9.0 - 12.7 fL [facility] Platelets (Bld) [#/Vol] 250 10*3/uL 140 - 440 10*3/uL [facility] RBC (Bld) [#/Vol] 4.35 10*6/uL 3.80 - 5.20 10*6/uL [facility] WBC (Bld) [#/Vol] 8.6 10*3/uL 3.6 - 10.7 10*3/uL [facility] CBC WITH AUTO DIFFERENTIALon 05-02-2024 Basophils (Bld) [#/Vol] 0.0 10*3/uL Normal 0.0-0.2 [facility] Comment on above: Performed By: #### L AB15, EGR971, HLU755, LAB18, [id number], WRU260 #### Refuse Laborer: GARY ESPARZA ([phone]) [facility] ([facility]) [address] [place] [address] Basophils/100 WBC (Bld) 0.3 % Normal 0.0-2.0 [facility] Comment on above: Performed By: #### L AB15, AKV902, FPI946, LAB18, [id number], RPM954 #### Refuse Laborer: GARY ESPARZA ([phone]) [facility]) [address] [place] [address] Eosinophils (Bld) [#/Vol] 0.1 10*3/uL Normal 0.0-0.5 [facility] Comment on above: Performed By: #### L AB15, QCD926, DRX883, LAB18, [id number], MYS257 #### Refuse Laborer: GARY ESPARZA ([phone]) [facility]) [address] [place] [address] Eosinophils/100 WBC (Bld) 1.3 % Normal 0.0-6.0 [facility] Comment on above: Performed By: #### L AB15, WRE919, PQK698, LAB18, [id number], KCD008 #### Refuse Laborer: GARY ESPARZA ([phone]) [facility]) [address] [place] [address] Erythrocyte distribution width (RBC) [Ratio] 12.6 % Normal 11.5-15.0 [facility] Comment on above: Performed By: #### L AB15, GRR533, ZUA569, LAB18, [id number], IAT332 #### Refuse Laborer: GARY ESPARZA ([phone]) [facility]) [address] [place] [address] Hematocrit (Bld) [Volume fraction] 31.7 % Low 35.0-47.0 [facility] Comment on above: Performed By: #### L AB15, EKI863, GRS186, LAB18, [id number], YKL911 #### Refuse Laborer: GARY ESPARZA ([phone]) [facility]) [address] [place] [address] Hemoglobin (Bld) [Mass/Vol] 11.0 g/dL Low 11.7-16.0 [facility] Comment on above: Performed By: #### L AB15, PGB377, HDX993, LAB18, [id number], SCU099 #### Refuse Laborer: GARY ESPARZA ([phone]) [facility]) [address] [place] [address] IMMATURE GRANS % 0.4 % Normal 0.0-2.0 [facility] Comment on above: Performed By: #### L AB15, PYH158, NNQ267, LAB18, [id number], FIF250 #### Refuse Laborer: GARY ESPARZA ([phone]) [facility]) [address] [place] [address] IMMATURE GRANS ABSOLUTE 0.0 10*3/uL Normal <0.1 [facility] Comment on above: Performed By: #### L AB15, LHF862, DRO414, LAB18, [id number], NCL387 #### Refuse Laborer: GARY ESPARZA ([phone]) [facility]) [address] [place] [address] Lymphocytes (Bld) [#/Vol] 1.4 10*3/uL Normal 1.0-4.3 [facility] Comment on above: Performed By: #### L AB15, ZEN132, ZTD381, LAB18, [id number], ERX845 #### Refuse Laborer: GARY ESPARZA ([phone]) [facility]) [address] [place] [address] Lymphocytes/100 WBC (Bld) 13.4 % Low 15.0-45.0 [facility] Comment on above: Performed By: #### L AB15, ECH714, WMV813, LAB18, [id number], LNR216 #### Refuse Laborer: GARY ESPARZA ([phone]) [facility]) [address] [place] [address] MCH (RBC) [Entitic mass] 31.4 pg Normal 26.0-34.0 [facility] Comment on above: Performed By: #### L AB15, NNF762, SQZ537, LAB18, [id number], HZF263 #### Refuse Laborer: GARY ESPARZA ([phone]) [facility]) [address] [place] [address] MCHC 34.7 % Normal 30.5-36.0 [facility] Comment on above: Performed By: #### L AB15, QYN172, WNY128, LAB18, [id number], KYQ569 #### Refuse Laborer: GARY ESPARZA ([phone]) [facility]) [address] [place] [address] MCV (RBC) [Entitic vol] 90.6 fL Normal 77.0-99.0 [facility] Comment on above: Performed By: #### L AB15, FXJ429, QNF120, LAB18, [id number], BCO924 #### Refuse Laborer: GARY ESPARZA ([phone]) [facility]) [address] [place] [address] Monocytes (Bld) [#/Vol] 0.6 10*3/uL Normal 0.0-0.9 [facility] Comment on above: Performed By: #### L AB15, IQF354, KOH301, LAB18, [id number], BCR607 #### Refuse Laborer: GARY ESPARZA ([phone]) [facility]) [address] [place] [address] Monocytes/100 WBC (Bld) 6.1 % Normal 5.0-13.0 [facility] Comment on above: Performed By: #### L AB15, SSP881, KEA026, LAB18, [id number], XGS844 #### Refuse Laborer: GARY ESPARZA ([phone]) [facility]) [address] [place] [address] NEUTROPHILS ABSOLUTE 7.9 10*3/uL High 1.8-7.5 [facility] Comment on above: Performed By: #### L AB15, ZBX856, KWS643, LAB18, [id number], JNM748 #### Refuse Laborer: GARY ESPARZA ([phone]) [facility] ([facility]) [address] [place] [address] Neutrophils/100 WBC (Bld) 78.5 % Normal 38.0-82.0 [facility] Comment on above: Performed By: #### L AB15, UYD735, SXM574, LAB18, [id number], UYP509 #### Refuse Laborer: GARY ESPARZA ([phone]) [facility]) [address] [place] [address] NRBC 0.0 /100 WBCs Normal 0.0-2.0 [facility] Comment on above: Performed By: #### L AB15, WWL320, PCX371, LAB18, [id number], BFG922 #### Refuse Laborer: GARY ESPARZA ([phone]) [facility]) [address] [place] [address] Platelet mean volume (Bld) [Entitic vol] 9.5 fL Normal 9.0-12.7 [facility] Comment on above: Performed By: #### L AB15, EUK670, MIR982, LAB18, [id number], NHE737 #### Refuse Laborer: GARY ESPARZA ([phone]) [facility] ([facility]) [address] [place] [address] Platelets (Bld) [#/Vol] 237 10*3/uL Normal 140-440 [facility] Comment on above: Performed By: #### L AB15, VDS887, WBK890, LAB18, [id number], KCP423 #### Refuse Laborer: GARY ESPARZA ([phone]) [facility] ([facility]) [address] [place] [address] RBC (Bld) [#/Vol] 3.50 10*6/uL Low 3.80-5.20 [facility] Comment on above: Performed By: #### L AB15, APP812, HXN842, LAB18, [id number], ALV937 #### Refuse Laborer: GARY ESPARZA ([phone]) [facility]) [address] [place] [address] WBC (Bld) [#/Vol] 10.0 10*3/uL Normal 3.6-10.7 [facility] Comment on above: Performed By: #### L AB15, ZWZ042, DTM034, LAB18, [id number], AAC353 #### Refuse Laborer: GARY ESPARZA ([phone]) [facility] ([facility]) [address] [place] [address] Basophils (Bld) [#/Vol] 0.0 10*3/uL Normal 0.0-0.2 [facility] Comment on above: Performed By: #### L AB15, MOD503, RDJ124, LAB18, [id number], IDK374 #### Refuse Laborer: GARY ESPARZA ([phone]) [facility]) [address] [place] [address] Basophils/100 WBC (Bld) 0.4 % Normal 0.0-2.0 [facility] Comment on above: Performed By: #### L AB15, QAC301, OJT246, LAB18, [id number], FHC743 #### Refuse Laborer: GARY ESPARZA ([phone]) [facility] ([facility]) [address] [place] [address] Eosinophils (Bld) [#/Vol] 0.3 10*3/uL Normal 0.0-0.5 [facility] Comment on above: Performed By: #### L AB15, VTY321, IBP517, LAB18, [id number], JUQ020 #### Refuse Laborer: GARY ESPARZA ([phone]) [facility] ([facility]) [address] [place] [address] Eosinophils/100 WBC (Bld) 2.9 % Normal 0.0-6.0 [facility] Comment on above: Performed By: #### L AB15, JEQ505, PGZ934, LAB18, [id number], LOP976 #### Refuse Laborer: GARY ESPARZA ([phone]) [facility]) [address] [place] [address] Erythrocyte distribution width (RBC) [Ratio] 12.4 % Normal 11.5-15.0 [facility] Comment on above: Performed By: #### L AB15, KDA405, FKU912, LAB18, [id number], FGB194 #### Refuse Laborer: GARY ESPARZA ([phone]) [facility]) [address] [place] [address] Hematocrit (Bld) [Volume fraction] 39.4 % Normal 35.0-47.0 [facility] Comment on above: Performed By: #### L AB15, SWL901, BVL322, LAB18, [id number], SPW892 #### Refuse Laborer: GARY ESPARZA ([phone]) [facility]) [address] [place] [address] Hemoglobin (Bld) [Mass/Vol] 13.6 g/dL Normal 11.7-16.0 [facility] Comment on above: Performed By: #### L AB15, ZBA246, KKP798, LAB18, [id number], DPG863 #### Refuse Laborer: GARY ESPARZA ([phone]) [facility]) [address] [place] [address] IMMATURE GRANS % 0.2 % Normal 0.0-2.0 [facility] Comment on above: Performed By: #### L AB15, IZB299, BUC026, LAB18, [id number], EWT471 #### Refuse Laborer: GARY ESPARZA ([phone]) [address] IMMATURE GRANS ABSOLUTE 0.0 10*3/uL Normal <0.1 [facility] Comment on above: Performed By: #### L AB15, KOD574, GSI068, LAB18, [id number], PMI765 #### Refuse Laborer: GARY ESPARZA ([phone]) [facility]) [address] [place] [address] Lymphocytes (Bld) [#/Vol] 2.0 10*3/uL Normal 1.0-4.3 [facility] Comment on above: Performed By: #### L AB15, KSP761, JPL824, LAB18, [id number], ACK066 #### Refuse Laborer: GARY ESPARZA ([phone]) [facility]) [address] [place] [address] Lymphocytes/100 WBC (Bld) 23.2 % Normal 15.0-45.0 [facility] Comment on above: Performed By: #### L AB15, BZE496, VEH427, LAB18, [id number], IWO185 #### Refuse Laborer: GARY ESPARZA ([phone]) [facility]) [address] [place] [address] MCH (RBC) [Entitic mass] 31.3 pg Normal 26.0-34.0 [facility] Comment on above: Performed By: #### L AB15, QFG886, BLK251, LAB18, [id number], KWV919 #### Refuse Laborer: GARY ESPARZA ([phone]) [facility]) [address] [place] [address] MCHC 34.5 % Normal 30.5-36.0 [facility] Comment on above: Performed By: #### L AB15, EUT092, YCJ848, LAB18, [id number], ZFG403 #### Refuse Laborer: GARY ESPARZA ([phone]) [facility]) [address] [place] [address] MCV (RBC) [Entitic vol] 90.6 fL Normal 77.0-99.0 [facility] Comment on above: Performed By: #### L AB15, TRX871, OJF395, LAB18, [id number], [id number] #### Refuse Laborer: GARY ESPARZA ([id number]) [facility]) [address] [place] [address] Monocytes (Bld) [#/Vol] 0.6 10*3/uL Normal 0.0-0.9 [facility] Comment on above: Performed By: #### L AB15, IUI259, VKU513, LAB18, [id number], NJV282 #### Refuse Laborer: GARY ESPARZA ([phone]) [facility] ([facility]) [address] [place] [address] Monocytes/100 WBC (Bld) 7.5 % Normal 5.0-13.0 [facility] Comment on above: Performed By: #### L AB15, VQN553, ZSS133, LAB18, [id number], ELZ881 #### Refuse Laborer: GARY ESPARZA ([phone]) [facility] ([facility]) [address] [place] [address] NEUTROPHILS ABSOLUTE 5.6 10*3/uL Normal 1.8-7.5 [facility] Comment on above: Performed By: #### L AB15, HFU078, COD197, LAB18, [id number], VPD650 #### Refuse Laborer: GARY ESPARZA ([phone]) [facility]) [address] [place] [address] Neutrophils/100 WBC (Bld) 65.8 % Normal 38.0-82.0 [facility] Comment on above: Performed By: #### L AB15, HOL579, BEV312, LAB18, [id number], MQU524 #### Refuse Laborer: GARY ESPARZA ([id number]) [facility] ([facility]) [address] [place] [address] NRBC 0.0 /100 WBCs Normal 0.0-2.0 [facility] Comment on above: Performed By: #### L AB15, ZFQ906, LGZ953, LAB18, [id number], [id number] #### Refuse Laborer: GARY ESPARZA ([phone]) [facility] ([facility]) [address] [place] [address] Platelet mean volume (Bld) [Entitic vol] 9.5 fL Normal 9.0-12.7 [facility] Comment on above: Performed By: #### L AB15, NGZ187, HKC785, LAB18, [id number], [id number] #### Refuse Laborer: GARY ESPARZA ([phone]) [facility]) [address] [place] [address] Platelets (Bld) [#/Vol] 250 10*3/uL Normal 140-440 [facility] Comment on above: Performed By: #### L AB15, CXI772, NPC260, LAB18, [id number], [id number] #### Refuse Laborer: GARY ESPARZA ([id number]) [facility] ([facility]) [address] [place] [address] RBC (Bld) [#/Vol] 4.35 10*6/uL Normal 3.80-5.20 [facility] Comment on above: Performed By: #### L AB15, VST812, GGI501, LAB18, [id number], [id number] #### Refuse Laborer: GARY ESPARZA ([id number]) [facility] ([facility]) [address] [place] [address] WBC (Bld) [#/Vol] 8.6 10*3/uL Normal 3.6-10.7 [facility] Comment on above: Performed By: #### L AB15, NRQ046, MPB863, LAB18, [id number], [id number] #### Refuse Laborer: GARY ESPARZA ([id number]) [facility] ([facility]) [address] [place] [address] CK TOTAL AND CKMBon 05-02-20 24 CK [Catalytic activity/Vol] 74 U/L Normal 30-170 [facility] Comment on above: Performed By: #### L AB15, TIR014, GPU480, LAB18, [id number], [id number] #### Refuse Laborer: GARY ESPARZA ([id number]) [facility] ([facility]) [address] [place] [address] CK.MB [Mass/Vol] 3.9 ng/mL Normal 0.0-4.4 [facility] Comment on above: Performed By: #### L AB15, MVC795, ZGO340, LAB18, [id number], [id number] #### Refuse Laborer: GARY ESPARZA ([id number]) [facility]) [address] [place] [address] RELATIVE INDEX 5.3 High 0.0-3.0 [facility] Comment on above: Performed By: #### L AB15, JFI077, CZN716, LAB18, [id number], [id number] #### Refuse Laborer: GARY ESPARZA ([id number]) [facility] ([facility]) [address] [place] [address] CK.total/Creatine kinase.MB [Catalytic ratio]on 05-02-2024 CK [Catalytic activity/Vol] 74 U/L 30 - 170 U/L [facility] CK.MB [Mass/Vol] 3.9 ng/mL 0.0 - 4.4 ng/mL [facility] Interpretation and review of laboratory results Abnormal [facility] RELATIVE INDEX 5.3 High 0.0 - 3.0 [facility] Cardiac catheterization stud yon 05-02-2024 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 Prior VARGAS-LAD and SVG-OM2 grafts are both chronically occluded. Patent [place] dominant RCA with mild disease. Successful IVUS [...] exchanged over a wire for a 6 Grenadian sheath which was aspirated and flushed with saline. Patient was anticoagulated with IV heparin. Left and right coronary angiograms were performed with 5 Grenadian JL 4 and JR4 catheters respectively. JR4 catheter was advanced across the aortic valve using a guidewire to perform left heart cath with measurement of pressures. VARGAS graft was not assessed as this was noted to be chronically occluded. A 5 Grenadian AL 1 catheter was used to perform [...] LCx: Prior to beginning PCI, the 6 Grenadian sheath was exchanged for a 7 Grenadian sheath. Patient was anticoagulated with IV heparin with therapeutic ACT maintained. Patient was loaded with Brilinta 180 mg crushed PO prior to the procedure. Left main coronary artery was cannulated with a 7 Grenadian EBU 3.75 guide catheter. Luge guidewire was [...] Final angiogram showed 0% residual stenosis with BERTRNAD-2 flow in the Lcx into the OM2 [...] (more content not included)... CV CPACS HEMO [facility] ECG 12-LEADon 05-02-2024 ECG 12-LEAD IMPRESSION: Sinus rhythm BORDERLINE ST DEPRESSION, DIFFUSE LEADS Electronically Signed On 05-02-2024 07:48:39 EST by Rufus Valente [facility] ECG 12-LEAD IMPRESSION: Sinus rhythm Ventricular bigeminy, brief Probable left atrial enlargement PVCs new since last EKG Electronically Signed On 05-02-2024 07:25:45 EST by Rufus Valente [facility] HEMOGLOBIN A1Con 05-02-2024 Glucose [Mass/Vol] 111 mg/dL Normal [facility] Comment on above: Performed By: #### L AB15, IHP907, VNV678, LAB18, [id number], [id number] #### Refuse Laborer: GARY ESPARZA ([id number]) [facility] ([facility]) [address] [place] [address] HbA1c (Bld) [Mass fraction] 5.5 % Normal <5.7 [facility] Comment on above: Result Comment: Norm al less than 5.7% Prediabetes 5.7% to 6.4% Diabetes 6.5% or higher --HgbA1C levels may not be accurate in patients who have renal disease, received recent blood transfusions, are anemic, or who have dyshemoglobinemia. Performed By: #### L AB15, SWA121, CYO025, LAB18, [id number], [id number] #### Refuse Laborer: GARY ESPARZA ([phone]) [facility] ([facility]) [address] [place] [address] HEMOGLOBIN AND HEMATOCRIT, B LOODon 05-02-2024 Hematocrit (Bld) [Volume fraction] 36.3 % Normal 35.0-47.0 [facility] Comment on above: Performed By: #### L AB15, EEL306, DLH760, LAB18, [id number], [id number] #### Refuse Laborer: GARY ESPARZA ([id number]) [facility] ([facility]) [address] [place] [address] Hemoglobin (Bld) [Mass/Vol] 12.4 g/dL Normal 11.7-16.0 [facility] Comment on above: Performed By: #### L AB15, IDF079, GND836, LAB18, [id number], [id number] #### Refuse Laborer: GARY ESPARZA ([id number]) [address] Hemoglobin (Bld) [Mass/Vol]o n 05-02-2024 Hematocrit (Bld) [Volume fraction] 36.3 % 35.0 - 47.0 % [facility] Interpretation and review of laboratory results Normal [facility] LIPID PANELon 05-02-2024 Cholesterol [Mass/Vol] 201 mg/dL High <200 [facility] Comment on above: Order Comment: If no t done in the last six months. Performed By: #### L AB15, GHS553, UVA813, LAB18, [id number], [id number] #### Refuse Laborer: GARY ESPARZA ([phone]) [facility]) [address] [place] [address] Cholesterol in HDL [Mass/Vol] 64 mg/dL High 40-60 [facility] Comment on above: Order Comment: If no t done in the last six months. Performed By: #### L AB15, UZK720, QJA256, LAB18, [id number], [id number] #### Refuse Laborer: GARY ESPARZA ([phone]) [facility]) [address] [place] [address] Cholesterol.total/Chol esterol in HDL [Mass ratio] 3 {ratio} Normal [facility] Comment on above: Order Comment: If no t done in the last six months. Result Comment: Ref Range: < 3 Low Risk for CHD 3-6 Mod Risk for CHD > 6 High Risk for CHD Performed By: #### L AB15, AWI614, GTJ422, LAB18, [id number], [id number] #### Refuse Laborer: GARY ESPARZA ([phone]) [facility]) [address] [place] [address] LOW DENSITY LIPOPROTEIN 81 mg/dL Normal 0-<100 [facility] Comment on above: Order Comment: If no t done in the last six months. Performed By: #### L AB15, HDC930, CZW000, LAB18, [id number], [id number] #### Refuse Laborer: GARY ESPARZA ([id number]) [address] Triglyceride [Mass/Vol] 280 mg/dL High <150 [facility] Comment on above: Order Comment: If no t done in the last six months. Performed By: #### L AB15, ITQ534, PYE715, LAB18, [id number], [id number] #### Refuse Laborer: GARY ESPARZA ([id number]) [address] Laboratory - Chemistry and C hemistry - challengeOrdered By: Demarcus Becerra on 05-02-2024 Troponin I.cardiac [Mass/Vol] 2.11 ng/mL Critically high NINF - 0.034 ng/mL [facility] Laboratory - Chemistry and C hemistry - challengeOrdered By: Marylou Rueda on 05-02-2024 Troponin I.cardiac [Mass/Vol] 0.314 ng/mL Critically high NINF - 0.034 ng/mL [facility] Laboratory - Chemistry and C hemistry - challengeon 05-02-2024 Magnesium [Mass/Vol] 2.2 mg/dL 1.6 - 2 .3 mg/dL [facility] Troponin I.cardiac [Mass/Vol] ng/mL NINF - 0.034 ng/mL [facility] Troponin I.cardiac [Mass/Vol] ng/mL [facility] - 0.[facility] ng/mL [facility] Average glucose Estimated from glycated hemoglobin (Bld) [Mass/Vol] 111 mg/dL [facility] TSH Qn 5.341 m[IU]/L High [facility] Magnesium [Mass/Vol] 2.2 mg/dL 1.6 - 2 .3 mg/dL [facility] Laboratory - Hematology and Cell countson 05-02-2024 Hemoglobin (Bld) [Mass/Vol] 12.4 g/dL 11.7 - 16.0 g/dL [facility] HbA1c (Bld) [Mass fraction] 5.5 % NINF - 5.7 % [facility] Comment on above: Normal less than 5.7 % Prediabetes 5.7% to 6.4% Diabetes 6.5% or higher --HgbA1C levels may not be accurate in patients who have renal disease, received recent blood transfusions, are anemic, or who have dyshemoglobinemia. Lipid 1996 panelon 4 Cholesterol [Mass/Vol] 201 mg/dL High NINF - 200 mg/dL [facility] Cholesterol in HDL [Mass/Vol] 64 mg/dL High 40 - 60 mg/dL [facility] Cholesterol in LDL [Mass/Vol] 81 mg/dL 0 - <100 [facility] Cholesterol.total/Chol esterol in HDL [Mass ratio] 3 {ratio} [facility] Comment on above: Ref Range: < 3 Low Risk for CHD 3-6 Mod Risk for CHD > 6 High Risk for CHD Interpretation and review of laboratory results Abnormal [facility] Triglyceride [Mass/Vol] 280 mg/dL High NINF - 150 mg/dL [facility] MAGNESIUMon 05-02-2024 Magnesium [Mass/Vol] 2.2 mg/dL Normal 1.6-2.3 [facility] Comment on above: Performed By: #### L AB15, BAP903, BTL534, LAB18, [id number], [id number] #### Refuse Laborer: GARY ESPARZA ([phone]) [facility] [address] [place] [address] Magnesium [Mass/Vol] 2.2 mg/dL Normal 1.6-2.3 [facility] Comment on above: Performed By: #### L AB15, TAK600, IEY734, LAB18, [id number], [id number] #### Refuse Laborer: GARY ESPARZA ([id number]) [facility] ([facility]) [address] [place] [address] Magnesium [Mass/Vol]on 05-02 Interpretation and review of laboratory results Normal [facility] Interpretation and review of laboratory results Normal [facility] NT PRO BNPon 05-02-2024 Natriuretic peptide B (Bld) [Mass/Vol] 856 pg/mL High <125 [facility] Comment on above: Performed By: #### L AB15, IAT828, QSF496, LAB18, [id number], [id number] #### Refuse Laborer: GARY ESPARZA ([id number]) [facility] [address] [place] [address] Natriuretic peptide B [Mass/ Vol]Ordered By: Jose Manuel Owens on 05-02-2024 Interpretation and review of laboratory results Abnormal [facility] Natriuretic peptide B (Bld) [Mass/Vol] 856 pg/mL High NINF - 125 pg/mL [facility] No Panel Informationon 05-02 Interpretation and review of laboratory results Abnormal [facility] POCT ACT 265 High [facility] POCT ACT 316 High [facility] Performed by: [facility], [address] [place] [address] CLIA ID: [id number] [facility] POCT ACT 282 High [facility] Sinus rhythm BORDERLINE ST DEPRESSION, DIFFUSE LEADS Electronically Signed On 05-02-2024 07:48:39 EST by Rufus Marsh MD - 05/02/2024 IMPRESSION: Sinus rhythm BORDERLINE ST DEPRESSION, DIFFUSE LEADS Electronically Signed On 05-02-2024 07:48:39 EST by Rufus Valente [facility] [employer] P Inglis 46 degrees [facility] [place] Interval 140 ms [facility] QRS Inglis 39 degrees [facility] QRSD Interval 87 ms [facility] QT Interval 393 ms [facility] QTC Interval 485 ms [facility] T Wave [place]gl[place] 40 degrees [facility] Sinus rhythm Ventricular bigeminy, brief Probable left atrial enlargement PVCs new since last EKG Electronically Signed On 05-02-2024 07:25:45 EST by Rufus Marsh MD - 05/02/2024 IMPRESSION: Sinus rhythm Ventricular bigeminy, brief Probable left atrial enlargement PVCs new since last EKG Electronically Signed On 05-02-2024 07:25:45 EST by Rufus Valente [facility] [employer] [facility] [employer] [facility] [employer] No Panel InformationOrdered By: Rufus Valente on 05-02-2024 P Inglis 63 degrees [facility] [employer] Work Phone: [place] Interval 147 ms [facility] [employer] Work Phone: QRS Inglis 8 degrees [facility] Work Phone: QRSD Interval 97 ms [facility] [employer] Work Phone: QT Interval 392 ms [facility] [employer] Work Phone: QTC Interval 462 ms [facility] [employer] Work Phone: [phone] T Wave [place] 40 degrees [facility] [employer] Work Phone: [phone] [employer] Phone: Progress Noteon 05-02-2024 Progress Note Patient transferred to CCU s/p multivessel PCI. She denies chest pain/pressure, palpitations, shortness of breath, or any other acute concerns at this time. Vitals are stable. Will hold isosorbide mononitrate. Start on rosuvastatin 40 mg nightly. Continue on DAPT. Will monitor for any acute changes. Normal [facility] THYROID STIMULATING HORMONEo n 05-02-2024 THYROID STIMULATING HORMONE 5.341 uIU/mL High 0.465-4.68 0 [facility] Comment on above: Performed By: #### L AB15, ERP989, VWH276, LAB18, [id number], [id number] #### Refuse Laborer: GARY ESPARZA ([phone]) [facility]) [address] [place] [address] [place] TROPONIN Ion 05-02-2024 Troponin I.cardiac [Mass/Vol] 2.110 ng/mL Critically high <0.034 [facility] Comment on above: Result Comment: VIDA R COMMENTS: Patients with high levels of Biotin oral intake (ie >5 mg/day) may have falsely decreased Troponin levels. Performed By: #### L AB15, LCI272, ITF793, LAB18, [id number], [id number] #### Refuse Laborer: GARY ESPARZA ([id number]) [address] Troponin I.cardiac [Mass/Vol] ng/mL Normal <0.034 [facility] Comment on above: Result Comment: VIDA Benitez COMMENTS: Patients with high levels of Biotin oral intake (ie >5 mg/day) may have falsely decreased Troponin levels. Performed By: #### L AB15, UHD837, FEW087, LAB18, [id number], [id number] #### Refuse Laborer: GARY ESPARZA ([phone]) [facility] ([facility] [address] [place] [address] Troponin I.cardiac [Mass/Vol] ng/mL Normal <0.034 [facility] Comment on above: Result Comment: VIDA R COMMENTS: Patients with high levels of Biotin oral intake (ie >5 mg/day) may have falsely decreased Troponin levels. Performed By: #### L AB15, NEL161, UXC653, LAB18, [id number], [id number] #### Refuse Laborer: GARY ESPARZA ([phone]) [facility] ([facility] [address] [place] [address] TROPONIN, WITH SERIAL REFLEX on 05-02-2024 Troponin I.cardiac [Mass/Vol] 0.314 ng/mL Critically high <0.034 [facility] Comment on above: Result Comment: VIDA [employer]z COMMENTS: Patients with high levels of Biotin oral intake (ie >5 mg/day) may have falsely decreased Troponin levels. Performed By: #### L AB15, FLO847, CGG352, LAB18, [id number], [id number] #### Refuse Laborer: GARY ESPARZA ([id number]) [facility] ([facility]) [address] [place] [address] Troponin I.cardiac [Mass/Vol] ng/mL Normal <0.034 [facility] Comment on above: Result Comment: VIDA Benitez COMMENTS: Patients with high levels of Biotin oral intake (ie >5 mg/day) may have falsely decreased Troponin levels. Performed By: #### L AB15, HEJ727, QHE073, LAB18, [id number], [id number] #### Refuse Laborer: GARY ESPARZA ([id number]) [facility] ([facility]) [address] [place] [address] TSH Qnon 05-02-2024 Interpretation and review of laboratory results Abnormal [facility] Troponin I.cardiac [Mass/Vol ]Ordered By: Demarcus Becerra on 05-02-2024 Interpretation and review of laboratory results Abnormal [facility] Patients with high l evels of Biotin oral intake (ie >5 mg/day) may have falsely decreased Troponin levels. [facility] Troponin I.cardiac [Mass/Vol ]Ordered By: Marylou Rueda on 05-02-2024 Interpretation and review of laboratory results Abnormal [facility] Patients with high l evels of Biotin oral intake (ie >5 mg/day) may have falsely decreased Troponin levels. [facility] Troponin I.cardiac [Mass/Vol ]on 05-02-2024 Interpretation and review of laboratory results Normal [facility] Patients with high l evels of Biotin oral intake (ie >5 mg/day) may have falsely decreased Troponin levels. [facility] Interpretation and review of laboratory results Normal [facility] Patients with high l evels of Biotin oral intake (ie >5 mg/day) may have falsely decreased Troponin levels. [employer] Interpretation and review of laboratory results Normal [facility] Patients with high l evels of Biotin oral intake (ie >5 mg/day) may have falsely decreased Troponin levels. [employer] US Heart TransthoracicOrdere d By: Nusrat Gant on 05-02-2024 Ao Root Index 1.77 cm/m2 [employer] Phone: Aortic Root 3.1 cm [employer] Phone: Aortic Sinus Valsalva 3.1 cm [facility] Phone: Aortic Sinus Valsalva Index 1.77 cm/m2 [employer] Phone: Ascending Aorta 2.8 cm [facility] Phone: Ascending Aorta Index 1.6 cm/m2 [facility] [employer] Phone: AV Area by Peak Velocity 2.5 cm2 [facility] Phone: AV Area by VTI 2.1 cm2 [employer] Phone: AV Mean Gradient 3 mmHg [employer] Phone: AV Mean Velocity 0.8 m/s [employer] Phone: AV Peak Gradient 4 mmHg [employer] Phone: AV Peak Velocity 1.1 m/s [employer] Phone: AV Velocity Ratio 0.73 [facility] Phone: AV VTI 21.1 cm [employer] Phone: SHAY/BSA Peak Velocity 1.4 cm2/m2 [facility] [employer] Phone: SHAY/BSA VTI 1.2 cm2/m2 [facility] Phone: E/E' Lateral 5.5 [facility] [employer] Phone: E/E' Ratio (Averaged) 5.5 [facility] [employer] Work Phone: E/E' Septal 5.5 [facility] Work Phone: EF BP 59 % 55 - 100 % [facility] [employer] Work Phone: Est. RA Pressure 3 mmHg [facility] [employer] Work Phone: Fractional Shortening 2D 36 % 28 - 44 % [facility] [employer] Work Phone: Global Longitudinal Strain -16.8 % [facility] [employer] Work Phone: IVC Diameter 1 cm [facility] [employer] Work Phone: IVSd 0.8 cm 0.6 - 0.9 cm [facility] [employer] Work Phone: LA Volume 2C 46 mL 22 - 52 mL [facility] [employer] Work Phone: LA Volume 4C 47 mL 22 - 52 mL [facility] [employer] Work Phone: LA Volume A/L 54 mL [facility] [employer] Work Phone: LA Volume BP 50 mL 22 - 52 mL [facility] [employer] Work Phone: LA Volume Index 2C 26 mL/m2 16 - 34 mL/m2 [facility] [employer] Work Phone: LA Volume Index 4C 27 mL/m2 16 - 34 mL/m2 [facility] [employer] Work Phone: LA Volume Index A/L 31 mL/m2 16 - 34 mL/m2 [facility] [employer] Work Phone: LA Volume Index BP 29 ml/m2 16 - 34 ml/m2 [facility] [employer] Work Phone: LV E' Lateral Velocity 6 cm/s [facility] Work Phone: LV E' Septal Velocity 6 cm/s [facility] Work Phone: LV EDV A2C 56 mL [facility] [employer] Work Phone: LV EDV A4C 61 mL [facility] [employer] Work Phone: LV EDV BP 60 mL 56 - 104 mL [facility] [employer] Work Phone: LV EDV Index A2C 32 mL/m2 [facility] [employer] Work Phone: LV EDV Index A4C 35 mL/m2 [facility] Work Phone: LV EDV Index BP 34 mL/m2 [facility] Work Phone: LV Ejection Fraction A2C 60 % [employer] Work Phone: LV Ejection Fraction A4C 59 % [facility] Work Phone: LV ESV A2C 23 mL [facility] Work Phone: LV ESV A4C 25 mL [facility] Work Phone: LV ESV BP 24 mL 19 - 49 mL [facility] Work Phone: LV ESV Index A2C 13 mL/m2 [facility] Work Phone: LV ESV Index A4C 14 mL/m2 [facility] Work Phone: LV ESV Index BP 14 mL/m2 [facility] Work Phone: LV Mass 2D 85.1 g 67 - 162 g [facility] Work Phone: LV Mass 2D Index 48.6 g/m2 43 - 95 g/m2 [facility] Work Phone: LV RWT Ratio 0.29 [facility] Work Phone: LVIDd 4.2 cm 3.9 - 5.3 cm [facility] Work Phone: LVIDd Index 2.4 cm/m2 [facility] Work Phone: LVIDs 2.7 cm [facility] Work Phone: LVIDs Index 1.54 cm/m2 [facility] Work Phone: LVOT Area 3.5 cm2 [facility] Work Phone: LVOT Cardiac Output 3.4 liter/mi nu te [facility] Work Phone: LVOT Diameter 2.1 cm [facility] Work Phone: LVOT Mean Gradient 1 mmHg [facility] Work Phone: LVOT Peak Gradient 3 mmHg [facility] Work Phone: LVOT Peak Velocity 0.8 m/s [facility] Work Phone: LVOT Stroke Volume Index 25.7 mL/m2 [facility] [employer] Work Phone: LVOT SV 45 ml [facility] [employer] Work Phone: LVOT VTI 13 cm [facility] [employer] Work Phone: LVOT:AV VTI Index 0.62 [facility] [employer] Work Phone: LVPWd 0.6 cm 0.6 - 0.9 cm [facility] [employer] Work Phone: MR VTI 147.8 cm [facility] [employer] Work Phone: MV A Velocity 0.62 m/s [facility] [employer] Work Phone: MV E Velocity 0.33 m/s [facility] [employer] Work Phone: MV E/A 0.53 [facility] Work Phone: MV Nyquist Velocity 36 cm/s [facility] [employer] Work Phone: MV Regurg Velocity PISA 5.7 m/s [facility] [employer] Work Phone: RA Area 4C 38.4 mL [facility] [employer] Work Phone: RA Area 4C 36.7 mL [facility] [employer] Work Phone: RV Free Wall Peak S' 9 cm/s [facility] [employer] Work Phone: RVSP 21 mmHg [facility] [employer] Work Phone: Sinotubular Junction 2.8 cm [facility] [employer] Work Phone: TAPSE 1.8 cm 1.7 cm [facility] [employer] Work Phone: TR Max Velocity 2.1 m/s [facility] [employer] Work Phone: TR Peak Gradient 18 mmHg [facility] [employer] Work Phone: [facility] [employer] Work Phone: Heart Transthoracicon Left Ventricle: Left [...] on 05-02-2024 Heart rate 83 /min bpm [facility] Work Phone: Vital signson 05-02-2024 Heart rate 91 /min bpm [facility] XR CHEST 1 VIEWon 05-02-2024 XR CHEST [...] Electronically Signed Date/Time: 05/02/2024 7:[address] [facility] XR Chest Single viewon 05-02 No acute cardiopulmonary disease. Report Dictated on Electronically Signed By: Robson Simmons MD Electronically Signed Date/Time: 05/02/2024 7:49 AM EST [facility] Patient Name: NISSA TROTTER : 1955 [...] of the chest are unremarkable as visualized. [facility] SYSTEM Robson Simmons MD - 05/02/2024 Patient [...] Electronically Signed Date/Time: 05/02/2024 7:49 AM EST [facility] Radiology Study observation (narrative) [facility] [employer] XR Chest Single viewOrdered By: Robson Simmons on 05-02-2024 [facility] aPTT Coag (Bld) [Time]on aPTT Coag (PPP) [Time] 70.3 s High 20.0 - 30.5 s [facility] Interpretation and review of laboratory results Abnormal [facility] NOTE: The therapeuti c time for Heparin anticoagulation, based on Xa activity inhibition, is an APTT of 46-80 seconds. [facility] aPTT Coag (PPP) [Time] 25.6 s 20.0 - 30.5 s [facility] Interpretation and review of laboratory results Normal [facility] NOTE: The therapeuti c time for Heparin anticoagulation, based on Xa activity inhibition, is an APTT of 46-80 seconds. [facility] Cardiac Cath [employer] Cardiac Cath Diagnostic [facility] Imaging Services [address] [place] [address] Cardiac Cath Diagnostic MR#: [id number] Acct: [id number] Name: NISSA TROTTER Rep #: [id number] : 1955 68 From: Dustin Lemus MD PCP: Dr. Teresa Boggs, DO Status:[facility] Patient Name: NISSA TROTTER Study Date: 05/01/2024 Performing: Dustin Lemus MD Ht: 61 inches 154.94 cm : 1955 Wt: 170.99 lbs 77.56 kg Age: 68 Gender: female BSA: 1.77 PROCEDURE(S) PERFORMED DC03-(94946)LHC/COR/LV/CABG DC11-(37017)AO ROOT ANGIO WITH HEART CATH CLINICAL PROFILE [...] MD 05/01/24 1144 Date Dustin Lemus MD Cosigner Signature: Date (if indicated) CC: Dr. Dustin Lemus MD; Dr. Teresa Boggs DO Date Dictated: 05/01/24 1035 Date Transcribed: 05/01/24 1142 Inventory Assistant: CO Signed Normal [facility] CBC W/Diff, Automatedon 10-2 Absolute Lymph 1.77 X10 3/uL Normal 0.83-4.51 [facility] Comment on above: Performed By: #### L 500.4050, L500.4100, L100.0100, L300.4310 ####[facility] [address] [place], [address] Absolute Neut 4.2 X10 3/uL Normal 2.0-7.7 [facility] Comment on above: Performed By: #### L 500.4050, L500.4100, L100.0100, L300.4310 ####[facility] [address] [place], [address] Basophils/100 WBC (Bld) 0.7 % Normal 0-1 [facility] Comment on above: Performed By: #### L 500.4050, L500.4100, L100.0100, L300.4310 ####[facility] [address] [place], [address] Eosinophils/100 WBC (Bld) 3.4 % Normal 0-5 [facility] Comment on above: Performed By: #### L 500.4050, L500.4100, L100.0100, L300.4310 ####[facility] [address] [place], [address] Erythrocyte distribution width (RBC) [Ratio] 12.3 % Normal 11.6-14.6 [facility] Comment on above: Performed By: #### L 500.4050, L500.4100, L100.0100, L300.4310 ####[facility] [address] [place], [address] Hematocrit (Bld) [Volume fraction] 44.6 % Normal 37-47 [facility] Comment on above: Performed By: #### L 500.4050, L500.4100, L100.0100, L300.4310 ####[facility] [address] [place], [address] Hemoglobin (Bld) [Mass/Vol] 14.8 g/dL Normal 12.0-15.0 [facility] Comment on above: Performed By: #### L 500.4050, L500.4100, L100.0100, L300.4310 ####[facility] [address] [place], [address] IG% 0.300 Normal 0.0-0.9 [facility] Comment on above: Result Comment: IG% - Immature Granulocytes (promyelocytes, myelocytes and metamyelocytes) > 1% indicates that a LEFT SHIFT is Present. Performed By: #### L 500.4050, L500.4100, L100.0100, L300.4310 ####[facility] [address] [place], [address] Lymphocytes/100 WBC (Bld) 26.2 % Normal 19-41 [facility] Comment on above: Performed By: #### L 500.4050, L500.4100, L100.0100, L300.4310 ####[facility] [address] [place], [address] MCH (RBC) [Entitic mass] 31.1 pg Normal 27.0-32.0 [facility] Comment on above: Performed By: #### L 500.4050, L500.4100, L100.0100, L300.4310 ####[facility] [address] [place], [address] MCHC (RBC) [Mass/Vol] 33.2 g/dL Normal 32-36 [facility] Comment on above: Performed By: #### L 500.4050, L500.4100, L100.0100, L300.4310 ####[facility] [address] [place], [address] MCV (RBC) [Entitic vol] 93.7 fL Normal 81-99 [facility] Comment on above: Performed By: #### L 500.4050, L500.4100, L100.0100, L300.4310 ####[facility] [address] [place], [address] Monocytes/100 WBC (Bld) 7.4 % Normal 0-10 [facility] Comment on above: Performed By: #### L 500.4050, L500.4100, L100.0100, L300.4310 ####[facility] [address] [place], [address] Neutrophils/100 WBC (Bld) 62.0 % Normal 47-70 [facility] Comment on above: Performed By: #### L 500.4050, L500.4100, L100.0100, L300.4310 ####[facility] [address] [place], [address] Nucleated RBC (Bld) [#/Vol] 0 10*3/uL Normal 0-5 [facility] Comment on above: Performed By: #### L 500.4050, L500.4100, L100.0100, L300.4310 ####[facility] [address] [place], [address] Platelet mean volume (Bld) [Entitic vol] 9.4 fL Normal 6.2-12.0 [facility] Comment on above: Performed By: #### L 500.4050, L500.4100, L100.0100, L300.4310 ####[facility] [address] [place], [address] Platelets (Bld) [#/Vol] 288 10*3/uL Normal 150-450 [facility] Comment on above: Performed By: #### L 500.4050, L500.4100, L100.0100, L300.4310 ####[facility] [address] [place], [address] RBC (Bld) [#/Vol] 4.76 10*6/uL Normal 4.2-5.4 [facility] Comment on above: Performed By: #### L 500.4050, L500.4100, L100.0100, L300.4310 ####[facility] [address] [place], [address] RDW SD 42.8 fl Normal 35.1-43.9 [facility] Comment on above: Performed By: #### L 500.4050, L500.4100, L100.0100, L300.4310 ####[facility] [address] [place], [address] WBC (Bld) [#/Vol] 6.8 10*3/uL Normal 4.4-11.0 [facility] Comment on above: Performed By: #### L 500.4050, L500.4100, L100.0100, L300.4310 ####[facility] [address] [place], [address] Chest PA and Lateralon 04-18 Chest PA and Lateral [facility] Imaging Services [address] [place] [address] Chest PA and Lateral MR#: [id number] Acct: [id number] Name: NISSA TROTTER Rep #: [id number] : 1955 F 68 From: Arun daily MD PCP: Dr. Teresa Boggs, DO Status: [facility] Study: Chest PA and Lateral Date of Exam: 04/18/24 Exam# [id number] Ordering Dr: Ana Bailey PA PA 1:[id number] STUDY: X-RAY CHEST REASON FOR EXAM: Female, [...] CC: Dr. Teresa Boggs, DO; JENNY Beasley Inventory Assistant: Signed Normal [facility] Comprehensive Metabolic Prof ilon 04-18-2024 Albumin [Mass/Vol] 4.2 g/dL Normal 3.2-5.0 [facility] Comment on above: Performed By: #### L 500.4050, L500.4100, L100.0100, L300.4310 ####[facility] [address] [place], [address] Albumin/Globulin [Mass ratio] 1.2 {ratio} Normal 0.9-2.4 [facility] Comment on above: Performed By: #### L 500.4050, L500.4100, L100.0100, L300.4310 ####[facility] [address] [place], [address] ALK P 64 U/L Normal 45-117 [facility] Comment on above: Performed By: #### L 500.4050, L500.4100, L100.0100, L300.4310 ####[facility] [address] [place], [address] ALT [Catalytic activity/Vol] 21 U/L Normal 13-56 [facility] Comment on above: Performed By: #### L 500.4050, L500.4100, L100.0100, L300.4310 ####[facility] [address] [place], [address] AST [Catalytic activity/Vol] 24 U/L Normal 15-37 [facility] Comment on above: Performed By: #### L 500.4050, L500.4100, L100.0100, L300.4310 ####[facility] [address] [place], [address] Bilirubin [Mass/Vol] 0.70 mg/dL Normal 0.20-1.00 [facility] Comment on above: Result Comment: For patients on eltrombopag therapy, use of Dimension [place] TBIL is not recommended. Performed By: #### L 500.4050, L500.4100, L100.0100, L300.4310 ####[facility] [address] [place], [address] BUN/CRE 16.4 RATIO Normal 10-20 [facility] Comment on above: Performed By: #### L 500.4050, L500.4100, L100.0100, L300.4310 ####[facility] [address] [place], [address] CA,Total 9.7 mg/dL Normal 8.5-10.1 [facility] Comment on above: Performed By: #### L 500.4050, L500.4100, L100.0100, L300.4310 ####[facility] [address] [place], [address] Chloride [Moles/Vol] 106 mmol/L Normal 98-107 [facility] Comment on above: Performed By: #### L 500.4050, L500.4100, L100.0100, L300.4310 ####[facility] [address] [place], [address] CO2 [Moles/Vol] 25.0 mmol/L Normal 21.0-32.0 [facility] Comment on above: Performed By: #### L 500.4050, L500.4100, L100.0100, L300.4310 ####[facility] [address] [place], [address] Creatinine [Mass/Vol] 1.28 mg/dL High 0.55-1.02 [facility] Comment on above: Result Comment: The validity of the calculated GFR GFRAA in patients over 70 years has not been determined. Clinical correlation is essential. Performed By: #### L 500.4050, L500.4100, L100.0100, L300.4310 ####[facility] [address] [place], [address] EST GFR - AA 53 mL/min Low >60 [facility] Comment on above: Result Comment: Afri can Syrian GFR Calc Performed By: #### L 500.4050, L500.4100, L100.0100, L300.4310 ####[facility] [address] [place], [address] GAP 6 Normal 5-15 [facility] Comment on above: Performed By: #### L 500.4050, L500.4100, L100.0100, L300.4310 ####[facility] [address] [place], [address] GFR/1.73 sq M.predicted among non-blacks MDRD (S/P/Bld) [Vol rate/Area] 44 mL/min/{1.73_m2} Low >60 [facility] Comment on above: Result Comment: Non- GFR Calc Performed By: #### L 500.4050, L500.4100, L100.0100, L300.4310 ####[facility] [address] [place], [address] Globulin (S) [Mass/Vol] 3.4 g/dL Normal 2.2-4.2 [facility] Comment on above: Performed By: #### L 500.4050, L500.4100, L100.0100, L300.4310 ####[facility] [address] [place], [address] Glucose [Mass/Vol] 111 mg/dL High 74-106 [facility] Comment on above: Result Comment: Fast ing Glucose result from 100 to 125 mg/dL suggests IMPAIRED HOMEOSTASIS per A.D.A. criteria. Performed By: #### L 500.4050, L500.4100, L100.0100, L300.4310 ####[facility] [address] [place], [address] Potassium [Moles/Vol] 4.2 mmol/L Normal 3.5-5.1 [facility] Comment on above: Performed By: #### L 500.4050, L500.4100, L100.0100, L300.4310 ####[facility] [address] [place], [address] Sodium [Moles/Vol] 137 mmol/L Normal 136-145 [facility] Comment on above: Performed By: #### L 500.4050, L500.4100, L100.0100, L300.4310 ####[facility] [address] [place], [address] T PROT 7.6 g/dL Normal 6.4-8.2 [facility] Comment on above: Performed By: #### L 500.4050, L500.4100, L100.0100, L300.4310 ####[facility] [address] [place], [address] Urea nitrogen [Mass/Vol] 21 mg/dL High 7-18 [facility] Comment on above: Performed By: #### L 500.4050, L500.4100, L100.0100, L300.4310 ####[facility] [address] [place], [address] Lipid Profileon 04-18-2024 Cholesterol [Mass/Vol] 194 mg/dL Normal 200 [facility] Comment on above: Result Comment: <200 mg/dL Desirable 200-240 mg/dL Borderline >240 mg/dL High Risk Performed By: #### L 500.4050, L500.4100, L100.0100, L300.4310 ####[facility] [address] [place], [address] Cholesterol in HDL [Mass/Vol] 69 mg/dL Normal [facility] Comment on above: Result Comment: The drugs N-Acetylcysteine and Metamizole may falsely depress this assay. Reference Range HDL <40 mg/dL Low HDL Cholesterol HDL >or= 60 mg/dL High HDL Cholesterol Performed By: #### L 500.4050, L500.4100, L100.0100, L300.4310 ####[facility] [address] [place], [address] Cholesterol in LDL [Mass/Vol] 101 mg/dL Normal 0-130 [facility] Comment on above: Performed By: #### L 500.4050, L500.4100, L100.0100, L300.4310 ####[facility] [address] [place], [address] Cholesterol in VLDL [Mass/Vol] 24 mg/dL Normal 5-40 [facility] Comment on above: Performed By: #### L 500.4050, L500.4100, L100.0100, L300.4310 ####[facility] [address] [place], [address] Triglyceride [Mass/Vol] 121 mg/dL Normal [facility] Comment on above: Result Comment: The drugs N-Acetylcysteine and Metamizole may falsely depress this assay. Serum Triglycerides Reference Interval Normal <150 mg/dL Borderline high 150 - 199 mg/dL High 200 - 499 mg/dL Very High > or = 500 mg/dL Performed By: #### L 500.4050, L500.4100, L100.0100, L300.4310 ####[facility] [address] [place], [address] Partial Thromboplast Timeon 04-18-2024 aPTT Coag (Bld) [Time] 26.7 s Normal 24.1-36.2 [facility] Comment on above: Performed By: #### L 5004050, L500.4100, L100.0100, L300.4310 ####[facility] [address] [place], [address] Carotid Duplex Ultrasoundon 04-14-2024 Carotid Duplex Ultrasound [facility] Cardiovascular Services [address] [place] [address] Carotid Duplex Ultrasound 04/14/24 1246 MR#: [id number] Acct: [id number] Name: NISSA TROTTER Rep #: [id number] : 1955 68 From: Bassam Ray MD Attending Dr: JENNY Beasley Status: REG CLI Ordering Dr: Ana Bailey Date: 03/28 02/18 Location: [facility] Sex: F C Admitted: Reason For Study: [...] Physician: Teresa Boggs Performed By: Arjun Cooper, T 04/18/24 1600 Date Bassam Ray MD CC: Dr. Teresa Boggs DO; JENNY Beasley Date Dictated: 04/14/24 1246 Date Transcribed: 04/18/24 1600 Inventory Assistant: Signed Normal [facility] Comprehensive Metabolic Prof ilon 04-14-2024 Albumin [Mass/Vol] 4.2 g/dL Normal 3.2-5.0 [facility] Comment on above: Performed By: #### L 506.0400, L500.4050, L500.4100, L501.98254, L501.9520 ####[facility] [address] [place], [address] Albumin/Globulin [Mass ratio] 1.2 {ratio} Normal 0.9-2.4 [facility] Comment on above: Performed By: #### L 506.0400, L500.4050, L500.4100, L501.31679, L501.9520 ####[facility] [address] [place], [address] ALK P 66 U/L Normal 45-117 [facility] Comment on above: Performed By: #### L 506.0400, L500.4050, L500.4100, L501.66781, L501.9520 ####[facility] [address] [place], [address] ALT [Catalytic activity/Vol] 19 U/L Normal 13-56 [facility] Comment on above: Performed By: #### L 506.0400, L500.4050, L500.4100, L501.20788, L501.9520 ####[facility] [address] [place], [address] AST [Catalytic activity/Vol] 23 U/L Normal 15-37 [facility] Comment on above: Performed By: #### L 506.0400, L500.4050, L500.4100, L501.83516, L501.9520 ####[facility] [address] [place], [address] Bilirubin [Mass/Vol] 1.10 mg/dL High 0.20-1.00 [facility] Comment on above: Result Comment: For patients on eltrombopag therapy, use of Dimension [place] TBIL is not recommended. Performed By: #### L 506.0400, L500.4050, L500.4100, L501.43221, L501.9520 ####[facility] [address] [place], [address] BUN/CRE 17.2 RATIO Normal 10-20 [facility] Comment on above: Performed By: #### L 506.0400, L500.4050, L500.4100, L501.27935, L501.9520 ####[facility] [address] [place], [address] CA,Total 9.6 mg/dL Normal 8.5-10.1 [facility] Comment on above: Performed By: #### L 506.0400, L500.4050, L500.4100, L501.95727, L501.9520 ####[facility] [address] [place], [address] Chloride [Moles/Vol] 107 mmol/L Normal 98-107 [facility] Comment on above: Performed By: #### L 506.0400, L500.4050, L500.4100, L501.22692, L501.9520 ####[facility] [address] [place], [address] CO2 [Moles/Vol] 24.0 mmol/L Normal 21.0-32.0 [facility] Comment on above: Performed By: #### L 506.0400, L500.4050, L500.4100, L501.77749, L501.9520 ####[facility] [address] [place], [address] Creatinine [Mass/Vol] 1.22 mg/dL High 0.55-1.02 [facility] Comment on above: Result Comment: The validity of the calculated GFR GFRAA in patients over 70 years has not been determined. Clinical correlation is essential. Performed By: #### L 506.0400, L500.4050, L500.4100, L501.23010, L501.9520 ####[facility] [address] [place], [address] EST GFR - AA 56 mL/min Low >60 [facility] Comment on above: Result Comment: Afri can Syrian GFR Calc Performed By: #### L 506.0400, L500.4050, L500.4100, L501.98836, L501.9520 ####[facility] [address] [place], [address] GAP 7 Normal 5-15 [facility] Comment on above: Performed By: #### L 506.0400, L500.4050, L500.4100, L501.91729, L501.9520 ####[facility] [address] [place], [address] GFR/1.73 sq M.predicted among non-blacks MDRD (S/P/Bld) [Vol rate/Area] 46 mL/min/{1.73_m2} Low >60 [facility] Comment on above: Result Comment: Non- GFR Calc Performed By: #### L 506.0400, L500.4050, L500.4100, L501.04732, L501.9520 ####[facility] [address] [place], [address] Globulin (S) [Mass/Vol] 3.6 g/dL Normal 2.2-4.2 [facility] Comment on above: Performed By: #### L 506.0400, L500.4050, L500.4100, L501.51798, L501.9520 ####[facility] [address] [place], [address] Glucose [Mass/Vol] 104 mg/dL Normal 74-106 [facility] Comment on above: Result Comment: Fast ing Glucose result from 100 to 125 mg/dL suggests IMPAIRED HOMEOSTASIS per A.D.A. criteria. Performed By: #### L 506.0400, L500.4050, L500.4100, L501.93281, L501.9520 ####[facility] [address] [place], [address] Potassium [Moles/Vol] 4.0 mmol/L Normal 3.5-5.1 [facility] Comment on above: Performed By: #### L 506.0400, L500.4050, L500.4100, L501.58112, L501.9520 ####[facility] [address] [place], [address] Sodium [Moles/Vol] 138 mmol/L Normal 136-145 [facility] Comment on above: Performed By: #### L 506.0400, L500.4050, L500.4100, L501.24537, L501.9520 ####[facility] [address] [place], [address] T PROT 7.8 g/dL Normal 6.4-8.2 [facility] Comment on above: Performed By: #### L 506.0400, L500.4050, L500.4100, L501.41070, L501.9520 ####[facility] [address] [place], [address] Urea nitrogen [Mass/Vol] 21 mg/dL High - [facility] Comment on above: Performed By: #### L 506.0400, L500.4050, L500.4100, L501.42572, L501.9520 ####[facility] [address] [place], [address] Free T3on 04-14-2024 Free T3 [Mass/Vol] 2.1 pg/mL Low 2.18-3.98 [facility] Comment on above: Performed By: #### L 506.0400, L500.4050, L500.4100, L501.98428, L501.9520 ####[facility] [address] [place], [address] Lipid Profileon 04-14-2024 Cholesterol [Mass/Vol] 188 mg/dL Normal 200 [facility] Comment on above: Result Comment: <200 mg/dL Desirable 200-240 mg/dL Borderline >240 mg/dL High Risk Performed By: #### L 506.0400, L500.4050, L500.4100, L501.16887, L501.9520 ####[facility] [address] [place], [address] Cholesterol in HDL [Mass/Vol] 63 mg/dL Normal [facility] Comment on above: Result Comment: The drugs N-Acetylcysteine and Metamizole may falsely depress this assay. Reference Range HDL <40 mg/dL Low HDL Cholesterol HDL >or= 60 mg/dL High HDL Cholesterol Performed By: #### L 506.0400, L500.4050, L500.4100, L501.79329, L501.9520 ####[facility] [address] [place], [address] Cholesterol in LDL [Mass/Vol] 95 mg/dL Normal 0-130 [facility] Comment on above: Performed By: #### L 506.0400, L500.4050, L500.4100, L501.95917, L501.9520 ####[facility] [address] [place], [address] Cholesterol in VLDL [Mass/Vol] 30 mg/dL Normal 5-40 [facility] Comment on above: Performed By: #### L 506.0400, L500.4050, L500.4100, L501.02281, L501.9520 ####[facility] [address] [place], [address] Triglyceride [Mass/Vol] 152 mg/dL Normal [facility] Comment on above: Result Comment: The drugs N-Acetylcysteine and Metamizole may falsely depress this assay. Serum Triglycerides Reference Interval Normal <150 mg/dL Borderline high 150 - 199 mg/dL High 200 - 499 mg/dL Very High > or = 500 mg/dL Performed By: #### L 506.0400, L500.4050, L500.4100, L501.75561, L501.9520 ####[facility] [address] [place], [address] T4 Free Directon 04-14-2024 T4 FREE DIRECT 0.92 ng/dL Normal 0.76-1.46 [facility] Comment on above: Performed By: #### L 506.0400, L500.4050, L500.4100, L501.33980, L501.9520 ####[facility] [address] [place], [address] Thyroid Stim Hormone (TSH)on 04-14-2024 TSH 4.420 uIU/mL High 0.358-3.74 0 [facility] Comment on above: Performed By: #### L 506.0400, L500.4050, L500.4100, L501.47875, L501.9520 ####[facility] [address] 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 Normal [facility] Cardiology Visit Reporton Cardiology Visit Report [facility] 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 Normal [facility] Basophil percentageOrdered B y: Teresa Boggs on 10-05-2023 Bilirubin [Mass/Vol] 0.70 mg/dL 0.20-1.00 [facility] Comment on above: For patients on eltr ombopag therapy, use of Dimension [place] TBIL is not recommended. Chloride [Moles/Vol] 107 mmol/L 98-107 [facility] Glucose [Mass/Vol] 99 mg/dL 74-106 [facility] Potassium [Moles/Vol] 4.3 mmol/L 3.5-5.1 [facility] Protein [Mass/Vol] 7.2 g/dL 6.4-8.2 [facility] Sodium [Moles/Vol] 137 mmol/L 136-145 [facility] Laboratory - Chemistry and C hemistry - challengeOrdered By: Teresa Boggs on 10-05-2023 Albumin/Globulin [Mass ratio] 1.2 {ratio} 0.9-2.4 [facility] ALP [Catalytic activity/Vol] 53 U/L 45-117 [facility] ALT [Catalytic activity/Vol] 19 U/L 13-56 [facility] CO2 [Moles/Vol] 20.0 mmol/L 21.0-32.0 [facility] Globulin (S) [Mass/Vol] 3.2 g/dL 2.2-4.2 [facility] Urea nitrogen/Creatinine [Mass ratio] 17.0 mg/mg 10-20 [facility] No Panel InformationOrdered By: Teresa Boggs on 10-05-2023 Estimated GFR (MDRD) Amer 62 mL/min >60 [facility] Comment on above: GFR Calc Estimated GFR (MDRD) Non-Af Amer 51 mL/min >60 [facility] Comment on above: Non- GFR Calc Free Triiodothyronine (T3) pg/dL 2.1 pg/mL 2.18-3.98 [facility] Serum or plasma calcium cate urement (mass/volume)Ordered By: Teresa Boggs on 10-05-2023 Calcium [Mass/Vol] 9.3 mg/dL 8.5-10.1 [facility] Serum or plasma creatinine m easurement (mass/volume)Ordered By: Teresa Boggs on 10-05-2023 Creatinine [Mass/Vol] 1.12 mg/dL 0.55-1.02 [facility] Comment on above: The validity of the calculated GFR & GFRAA in patients over 70 years has not been determined. Clinical correlation is essential. Serum or plasma thyroid stim ulating hormone (TSH) measurement (units/volume)Ordered By: Teresa Boggs on 10-05-2023 TSH Qn 3.19 uIU/mL 0.358-3.74 [facility] Serum or plasma urea nitroge n measurement (mass/volume)Ordered By: Teresa Boggs on 10-05-2023 Urea nitrogen [Mass/Vol] 19 mg/dL 7-18 [facility] Thin prep Papanicolaou smear with manual screeningOrdered By: Teresa Boggs on 10-05-2023 Thin prep Papanicolaou smear with manual screening 4.0 g/dL 3.2-5.0 [facility] Thin prep Papanicolaou smear with manual screening 19 U/L 15-37 [facility] Thin prep Papanicolaou smear with manual screening 10 5-15 [facility] Thin prep Papanicolaou smear with manual screening 0.93 ng/dL 0.76-1.46 [facility] Absolute lymphocyte countOrd ered By: Teresa Boggs on 2023 Lymphocytes Auto (Unsp spec) [#/Vol] 2.29 10*3/uL 0.83-4.51 [facility] Automated lymphocyte count a s percentage of total leukocytesOrdered By: Teresa Boggs on 2023 Lymphocytes/100 WBC Auto (Unsp spec) 25.7 % 19-41 [facility] Basophil percentageOrdered B y: Teresa Boggs on 2023 Basophils/100 WBC (Bld) 0.8 % 0-1 [facility] Chloride [Moles/Vol] 111 mmol/L 98-107 [facility] Eosinophils/100 WBC (Bld) 3.3 % 0-5 [facility] Glucose [Mass/Vol] 106 mg/dL 74-106 [facility] Comment on above: Fasting Glucose resu lt from 100 to 125 mg/dL suggests IMPAIRED HOMEOSTASIS per A.D.A. criteria. Hemoglobin (Bld) [Mass/Vol] 14.0 g/dL 12.0-15.0 [facility] Monocytes/100 WBC (Bld) 8.1 % 0-10 [facility] Neutrophils (Bld) [#/Vol] 5.5 10*3/uL 2.0-7.7 [facility] Neutrophils/100 WBC (Bld) 61.3 % 47-70 [facility] Potassium [Moles/Vol] 3.9 mmol/L 3.5-5.1 [facility] Sodium [Moles/Vol] 138 mmol/L 136-145 [facility] WBC (Bld) [#/Vol] 8.9 10*3/uL 4.4-11.0 [facility] Determination of erythrocyte mean corpuscular volume (MCV)Ordered By: Teresa Boggs on 2023 MCV (RBC) [Entitic vol] 96.2 fL 81-99 [facility] Erythrocyte distribution wid th ratioOrdered By: Teresa Boggs on 2023 Erythrocyte distribution width (RBC) [Ratio] 12.5 % 11.6-14.6 [facility] Erythrocyte distribution wid th standard deviationOrdered By: Teresa Boggs on 2023 Erythrocyte distribution width (RBC) [Entitic vol] 44.4 fL 35.1-43.9 [facility] Erythrocyte sedimentation ra teOrdered By: Teresa Boggs on 2023 ESR (Bld) [Velocity] 13 mm/h 0-30 [facility] Hematocrit Auto (Bld) [Volum e fraction]Ordered By: Teresa Boggs on 2023 Hematocrit (Bld) [Volume fraction] 43.2 % 37-47 [facility] Immature granulocytes/100 WB C Auto (Bld)Ordered By: Teresa Boggs on 2023 Immature granulocytes/100 WBC (Bld) 0.800 % 0.0-0.9 [facility] Comment on above: IG% - Immature Granu locytes (promyelocytes, myelocytes and metamyelocytes) > 1% indicates that a LEFT SHIFT is Present. Laboratory - Chemistry and C hemistry - challengeOrdered By: Teresa Boggs on 2023 CO2 [Moles/Vol] 21.0 mmol/L 21.0-32.0 [facility] Urea nitrogen/Creatinine [Mass ratio] 28.6 mg/mg 10-20 [facility] Laboratory - Hematology and Cell countsOrdered By: Teresa Boggs on 2023 MCH (RBC) [Entitic mass] 31.2 pg 27.0-32.0 [facility] MCHC (RBC) [Mass/Vol] 32.4 g/dL 32-36 [facility] Nucleated RBC/100 WBC (Bld) [Ratio] 0 % 0-5 [facility] Platelet mean volume (Bld) [Entitic vol] 9.0 fL 6.2-12.0 [facility] Platelets (Bld) [#/Vol] 275 10*3/uL 150-450 [facility] No Panel InformationOrdered By: Teresa Boggs on 2023 C-Reactive Protein Extended Range < 2.90 mg/L 0.0-3.0 [facility] Comment on above: C-Reactive Protein ( CRP) provides useful information for thediagnosis, therapy and monitoring of inflammatory processesand associated diseases. For the evaluation of Relative Riskfor Cardiovascular Disease, a High Sensitivity CRP (HSCRP)should be ordered. Estimated GFR (MDRD) Amer 67 mL/min >60 [facility] Comment on above: GFR Calc Estimated GFR (MDRD) Non-Af Amer 55 mL/min >60 [facility] Comment on above: Non- GFR Calc RBC Auto (Bld) [#/Vol]Ordere d By: Teresa Boggs on 2023 RBC (Bld) [#/Vol] 4.49 10*6/uL 4.2-5.4 [facility] Serum or plasma calcium cate urement (mass/volume)Ordered By: Teresa Boggs on 2023 Calcium [Mass/Vol] 9.5 mg/dL 8.5-10.1 [facility] Serum or plasma creatinine m easurement (mass/volume)Ordered By: Teresa Boggs on 2023 Creatinine [Mass/Vol] 1.05 mg/dL 0.55-1.02 [facility] Comment on above: The validity of the calculated GFR & GFRAA in patients over 70 years has not been determined. Clinical correlation is essential. Serum or plasma urea nitroge n measurement (mass/volume)Ordered By: Teresa Boggs on 2023 Urea nitrogen [Mass/Vol] 30 mg/dL 7-18 [facility] Thin prep Papanicolaou smear with manual screeningOrdered By: Teresa Boggs on 2023 Thin prep Papanicolaou smear with manual screening 6 5-15 [facility] Basophil percentageOrdered B y: Teresa Boggs on 07-27-2023 Bilirubin [Mass/Vol] 0.70 mg/dL 0.20-1.00 [facility] Comment on above: For patients on eltr ombopag therapy, use of Dimension [place] TBIL is not recommended. Protein [Mass/Vol] 7.0 g/dL 6.4-8.2 [facility] Direct bilirubinOrdered By: Teresa Boggs on 07-27-2023 Bilirubin.direct [Mass/Vol] 0.14 mg/dL 0.00-0.30 [facility] Laboratory - Chemistry and C hemistry - challengeOrdered By: Teresa Boggs on 07-27-2023 ALP [Catalytic activity/Vol] 58 U/L 45-117 [facility] ALT [Catalytic activity/Vol] 24 U/L 13-56 [facility] Globulin (S) [Mass/Vol] 3.1 g/dL 2.2-4.2 [facility] No Panel InformationOrdered By: Teresa Boggs on 07-27-2023 Free Triiodothyronine (T3) pg/dL 2.3 pg/mL 2.18-3.98 [facility] Serum or plasma thyroid stim ulating hormone (TSH) measurement (units/volume)Ordered By: Teresa Boggs on 07-27-2023 TSH Qn 2.19 uIU/mL 0.358-3.74 [facility] Thin prep Papanicolaou smear with manual screeningOrdered By: Teresa Boggs on 07-27-2023 Thin prep Papanicolaou smear with manual screening 3.9 g/dL 3.2-5.0 [facility] Thin prep Papanicolaou smear with manual screening 22 U/L 15-37 [facility] Thin prep Papanicolaou smear with manual screening 0.70 ng/dL 0.76-1.46 [facility] Basophil percentageOrdered B y: Dustin Lemus on 07-01-2023 Bilirubin [Mass/Vol] 1.50 mg/dL 0.20-1.00 [facility] Comment on above: For patients on eltr ombopag therapy, use of Dim[place] TBIL is not recommended. Cholesterol [Mass/Vol] 188 mg/dL <200 [facility] Comment on above: <200 mg/dL Desirable 200-240 mg/dL Borderline >240 mg/dL High Risk Protein [Mass/Vol] 7.7 g/dL 6.4-8.2 [facility] Triglyceride [Mass/Vol] 147 mg/dL <199 [facility] Comment on above: The drugs N-Acetylcy steine and Metamizole may falsely depress this assay.Serum Triglycerides Reference Interval Normal <150 mg/dL Borderline high 150 - 199 mg/dL High 200 - 499 mg/dL Very High > or = 500 mg/dL Direct bilirubinOrdered By: Dustin Lemus on 07-01-2023 Bilirubin.direct [Mass/Vol] 0.25 mg/dL 0.00-0.30 [facility] Laboratory - Chemistry and C hemistry - challengeOrdered By: Dustin Lemus on 07-01-2023 ALP [Catalytic activity/Vol] 58 U/L 45-117 [facility] ALT [Catalytic activity/Vol] 23 U/L 13-56 [facility] Globulin (S) [Mass/Vol] 3.5 g/dL 2.2-4.2 [facility] Serum or plasma albumin cate urement (mass/volume)Ordered By: Dustin Lemus on 07-01-2023 Albumin [Mass/Vol] 4.2 g/dL 3.2-5.0 [facility] Serum or plasma cholesterol in HDL measurement (mass/volume)Ordered By: Dustin Lemus on 07-01-2023 Cholesterol in HDL [Mass/Vol] 57 mg/dL >40 [facility] Comment on above: The drugs N-Acetylcy steine and Metamizole may falsely depress this assay. Reference Range HDL <40 mg/dL Low HDL Cholesterol HDL >or= 60 mg/dL High HDL Cholesterol Serum or plasma cholesterol in VLDL measurement (mass/volume)Ordered By: Dustin Lemus on 07-01-2023 Cholesterol in VLDL [Mass/Vol] 29 mg/dL 5-40 [facility] Serum or plasma low density lipoprotein (LDL) cholesterol measurement (mass/volume)Ordered By: Dustin Lemus on 07-01-2023 Cholesterol in LDL [Mass/Vol] 102 mg/dL 0-130 [facility] Thin prep Papanicolaou smear with manual screeningOrdered By: Dustin Lemus on 07-01-2023 Thin prep Papanicolaou smear with manual screening 28 U/L 15-37 [facility] Absolute lymphocyte countOrd ered By: Sharla Dubois on 01-07-2023 Lymphocytes Auto (Unsp spec) [#/Vol] 1.96 10*3/uL 0.83-4.51 [facility] Basophil percentageOrdered B y: Sharla Dubois on 01-07-2023 Basophils/100 WBC (Bld) 0.7 % 0-1 [facility] Chloride [Moles/Vol] 104 mmol/L 98-107 [facility] Eosinophils/100 WBC (Bld) 4.5 % 0-5 [facility] Glucose [Mass/Vol] 93 mg/dL 74-106 [facility] Neutrophils (Bld) [#/Vol] 3.9 10*3/uL 2.0-7.7 [facility] Neutrophils/100 WBC (Bld) 57.7 % 47-70 [facility] Potassium [Moles/Vol] 3.9 mmol/L 3.5-5.1 [facility] Sodium [Moles/Vol] 139 mmol/L 136-145 [facility] WBC (Bld) [#/Vol] 6.7 10*3/uL 4.4-11.0 [facility] Basophil percentageOrdered B y: Prescottsravani Lemus on 01-07-2023 Bilirubin [Mass/Vol] 0.80 mg/dL 0.20-1.00 [facility] Comment on above: For patients on eltr ombopag therapy, use of Dimension [place] TBIL is not recommended. Cholesterol [Mass/Vol] 193 mg/dL <200 [facility] Comment on above: <200 mg/dL Desirable 200-240 mg/dL Borderline >240 mg/dL High Risk Protein [Mass/Vol] 7.7 g/dL 6.4-8.2 [facility] Triglyceride [Mass/Vol] 277 mg/dL <199 [facility] Comment on above: The drugs N-Acetylcy steine and Metamizole may falsely depress this assay.Serum Triglycerides Reference Interval Normal <150 mg/dL Borderline high 150 - 199 mg/dL High 200 - 499 mg/dL Very High > or = 500 mg/dL Blood erythrocytes count (nu mber/volume)Ordered By: Sharla Dubois on 01-07-2023 RBC (Bld) [#/Vol] 4.34 10*6/uL 4.2-5.4 [facility] Blood hemoglobin measurement (mass/volume)Ordered By: Sharla Dubois on 01-07-2023 Hemoglobin (Bld) [Mass/Vol] 14.3 g/dL 12.0-15.0 [facility] Blood lymphocytes/100 leukoc ytesOrdered By: Sharla Dubois on 01-07-2023 Lymphocytes/100 WBC (Bld) 29.3 % 19-41 [facility] Blood monocytes/100 leukocyt esOrdered By: Sharla Dubois on 01-07-2023 Monocytes/100 WBC (Bld) 7.5 % 0-10 [facility] Blood platelet mean volumeOr dered By: Sharla Dubois on 01-07-2023 Platelet mean volume (Bld) [Entitic vol] 9.4 fL 6.2-12.0 [facility] Determination of erythrocyte mean corpuscular volume (MCV)Ordered By: Sharla Dubois on 01-07-2023 MCV (RBC) [Entitic vol] 97.2 fL 81-99 [facility] Direct bilirubinOrdered By: Dustin Lemus on 01-07-2023 Bilirubin.direct [Mass/Vol] 0.16 mg/dL 0.00-0.30 [facility] Hematocrit Auto (Bld) [Volum e fraction]Ordered By: Sharla Dubois on 01-07-2023 Hematocrit (Bld) [Volume fraction] 42.2 % 37-47 [facility] Laboratory - Chemistry and C hemistry - challengeOrdered By: Sharla Dubois on 01-07-2023 CO2 [Moles/Vol] 24.0 mmol/L 21.0-32.0 [facility] Free T4 [Mass/Vol] 0.86 ng/dL 0.76-1.46 [facility] Magnesium [Mass/Vol] 2.7 mg/dL 1.6-2.6 [facility] Natriuretic peptide B (Bld) [Mass/Vol] 107.4 pg/mL 0-100 [facility] Urea nitrogen/Creatinine [Mass ratio] 22.0 mg/mg 10-20 [facility] Laboratory - Chemistry and C hemistry - challengeOrdered By: Prescottsravani Lemus on 01-07-2023 ALP [Catalytic activity/Vol] 67 U/L 45-117 [facility] ALT [Catalytic activity/Vol] 23 U/L 13-56 [facility] Globulin (S) [Mass/Vol] 3.7 g/dL 2.2-4.2 [facility] Laboratory - Hematology and Cell countsOrdered By: Sharla Dubois on 01-07-2023 Erythrocyte distribution width (RBC) [Entitic vol] 44.7 fL 35.1-43.9 [facility] Erythrocyte distribution width (RBC) [Ratio] 12.3 % 11.6-14.6 [facility] Immature granulocytes/100 WBC (Bld) 0.300 % 0.0-0.9 [facility] Comment on above: IG% - Immature Granu locytes (promyelocytes, myelocytes and metamyelocytes) > 1% indicates that a LEFT SHIFT is Present. MCH (RBC) [Entitic mass] 32.9 pg 27.0-32.0 [facility] Nucleated RBC/100 WBC (Bld) [Ratio] 0 % 0-5 [facility] MCHC Auto (RBC) [Mass/Vol]Or dered By: Sharla Dubois on 01-07-2023 MCHC (RBC) [Mass/Vol] 33.9 g/dL 32-36 [facility] No Panel InformationOrdered By: Sharla Dubois on 01-07-2023 Estimated GFR (MDRD) Amer 59 mL/min >60 [facility] Comment on above: GFR Calc Estimated GFR (MDRD) Non-Af Amer 48 mL/min >60 [facility] Comment on above: Non- GFR Calc Free Triiodothyronine (T3) pg/dL 2.4 pg/mL 2.18-3.98 [facility] Thyroid Stimulating Hormone (TSH) 2.40 uIU/mL 0.358-3.74 [facility] Platelets bldOrdered By: Uday Dubois on 01-07-2023 Platelets (Bld) [#/Vol] 308 10*3/uL 150-450 [facility] Serum or plasma albumin cate urement (mass/volume)Ordered By: Dustin Lemus on 01-07-2023 Albumin [Mass/Vol] 4.0 g/dL 3.2-5.0 [facility] Serum or plasma calcium cate urement (mass/volume)Ordered By: Sharla Dubois on 01-07-2023 Calcium [Mass/Vol] 10.2 mg/dL 8.5-10.1 [facility] Serum or plasma cholesterol in HDL measurement (mass/volume)Ordered By: Dustin Lemus on 01-07-2023 Cholesterol in HDL [Mass/Vol] 54 mg/dL >40 [facility] Comment on above: The drugs N-Acetylcy steine and Metamizole may falsely depress this assay. Reference Range HDL <40 mg/dL Low HDL Cholesterol HDL >or= 60 mg/dL High HDL Cholesterol Serum or plasma cholesterol in VLDL measurement (mass/volume)Ordered By: Dustin Lemus on 01-07-2023 Cholesterol in VLDL [Mass/Vol] 55 mg/dL 5-40 [facility] Serum or plasma creatinine m easurement (mass/volume)Ordered By: Sharla Dubois on 01-07-2023 Creatinine [Mass/Vol] 1.18 mg/dL 0.55-1.02 [facility] Comment on above: The validity of the calculated GFR & GFRAA in patients over 70 years has not been determined. Clinical correlation is essential. Serum or plasma low density lipoprotein (LDL) cholesterol measurement (mass/volume)Ordered By: Dustin Lemus on 01-07-2023 Cholesterol in LDL [Mass/Vol] 84 mg/dL 0-130 [facility] Serum or plasma urea nitroge n measurement (mass/volume)Ordered By: Sharla Dubois on 01-07-2023 Urea nitrogen [Mass/Vol] 26 mg/dL 7-18 [facility] Thin prep Papanicolaou smear with manual screeningOrdered By: Sharla Dubois on 01-07-2023 Thin prep Papanicolaou smear with manual screening 11 5-15 [facility] Thin prep Papanicolaou smear with manual screeningOrdered By: Dustin Lemus on 01-07-2023 Thin prep Papanicolaou smear with manual screening 25 U/L 15-37 [facility] Basophil percentageOrdered B y: Dr. Boggs on 09-22-2022 Bilirubin [Mass/Vol] 1.20 mg/dL 0.20-1.00 [facility] Comment on above: For patients on eltr ombopag therapy, use of Dimension [place] TBIL is not recommended. Chloride [Moles/Vol] 104 mmol/L 98-107 [facility] Glucose [Mass/Vol] 103 mg/dL 74-106 [facility] Comment on above: Fasting Glucose resu lt from 100 to 125 mg/dL suggests IMPAIRED HOMEOSTASIS per A.D.A. criteria. Potassium [Moles/Vol] 4.4 mmol/L 3.5-5.1 [facility] Protein [Mass/Vol] 7.2 g/dL 6.4-8.2 [facility] Sodium [Moles/Vol] 135 mmol/L 136-145 [facility] Erythrocyte sedimentation ra teOrdered By: Dr. Boggs on 09-22-2022 ESR (Bld) [Velocity] 5 mm/h 0-30 [facility] Laboratory - Chemistry and C hemistry - challengeOrdered By: Dr. Boggs on 09-22-2022 ALP [Catalytic activity/Vol] 59 U/L 45-117 [facility] ALT [Catalytic activity/Vol] 25 U/L 13-56 [facility] CO2 [Moles/Vol] 25.0 mmol/L 21.0-32.0 [facility] Free T4 [Mass/Vol] 0.82 ng/dL 0.76-1.46 [facility] Globulin (S) [Mass/Vol] 3.2 g/dL 2.2-4.2 [facility] Magnesium [Mass/Vol] 2.5 mg/dL 1.6-2.6 [facility] Urea nitrogen/Creatinine [Mass ratio] 16.5 mg/mg 10-20 [facility] No Panel InformationOrdered By: Dr. Boggs on 09-22-2022 Estimated GFR (MDRD) Amer 54 mL/min >60 [facility] Comment on above: GFR Calc Estimated GFR (MDRD) Non-Af Amer 45 mL/min >60 [facility] Comment on above: Non- GFR Calc Free Triiodothyronine (T3) pg/dL 2.4 pg/mL 2.18-3.98 [facility] Thyroid Stimulating Hormone (TSH) 2.39 uIU/mL 0.358-3.74 [facility] Serum or plasma C reactive p rotein measurement (mass/volume)Ordered By: Dr. Boggs on 09-22-2022 CRP [Mass/Vol] mg/L 0.0-3.0 [facility] Comment on above: C-Reactive Protein ( CRP) provides useful information for thediagnosis, therapy and monitoring of inflammatory processesand associated diseases. For the evaluation of Relative Riskfor Cardiovascular Disease, a High Sensitivity CRP (HSCRP)should be ordered. Serum or plasma albumin cate urement (mass/volume)Ordered By: Dr. Boggs on 09-22-2022 Albumin [Mass/Vol] 4.0 g/dL 3.2-5.0 [facility] Serum or plasma albumin/glob ulin mass ratioOrdered By: Dr. Boggs on 09-22-2022 Albumin/Globulin [Mass ratio] 1.2 {ratio} 0.9-2.4 [facility] Serum or plasma calcium cate urement (mass/volume)Ordered By: Dr. Boggs on 09-22-2022 Calcium [Mass/Vol] 9.5 mg/dL 8.5-10.1 [facility] Serum or plasma creatinine m easurement (mass/volume)Ordered By: Dr. Boggs on 09-22-2022 Creatinine [Mass/Vol] 1.27 mg/dL 0.55-1.02 [facility] Comment on above: The validity of the calculated GFR & GFRAA in patients over 70 years has not been determined. Clinical correlation is essential. Serum or plasma urea nitroge n measurement (mass/volume)Ordered By: Dr. Boggs on 09-22-2022 Urea nitrogen [Mass/Vol] 21 mg/dL 7-18 [facility] Thin prep Papanicolaou smear with manual screeningOrdered By: Dr. Boggs on 09-22-2022 Thin prep Papanicolaou smear with manual screening 21 U/L 15-37 [facility] Thin prep Papanicolaou smear with manual screening 6 5-15 [facility] Laboratory - Chemistry and C hemistry - challengeOrdered By: Dr. Boggs on 07-30-2022 Free T4 [Mass/Vol] 0.81 ng/dL 0.76-1.46 [facility] No Panel InformationOrdered By: Dr. Boggs on 07-30-2022 Free Triiodothyronine (T3) pg/dL 1.9 pg/mL 2.18-3.98 [facility] Thyroid Stimulating Hormone (TSH) 2.49 uIU/mL 0.358-3.74 [facility] Basophil percentageOrdered B y: Dr. Lemus on 07-10-2022 Bilirubin [Mass/Vol] 0.80 mg/dL 0.20-1.00 [facility] Comment on above: For patients on eltr ombopag therapy, use of Dim[place] TBIL is not recommended. Cholesterol [Mass/Vol] 170 mg/dL <200 [facility] Comment on above: <200 mg/dL Desirable 200-240 mg/dL Borderline >240 mg/dL High Risk Protein [Mass/Vol] 7.2 g/dL 6.4-8.2 [facility] Triglyceride [Mass/Vol] 190 mg/dL <199 [facility] Comment on above: The drugs N-Acetylcy steine and Metamizole may falsely depress this assay.Serum Triglycerides Reference Interval Normal <150 mg/dL Borderline high 150 - 199 mg/dL High 200 - 499 mg/dL Very High > or = 500 mg/dL Direct bilirubinOrdered By: Dr. Lemus on 07-10-2022 Bilirubin.direct [Mass/Vol] 0.22 mg/dL 0.00-0.30 [facility] Laboratory - Chemistry and C hemistry - challengeOrdered By: Dr. Lemus on 07-10-2022 ALP [Catalytic activity/Vol] 55 U/L 45-117 [facility] ALT [Catalytic activity/Vol] 25 U/L 13-56 [facility] Globulin (S) [Mass/Vol] 3.3 g/dL 2.2-4.2 [facility] Serum or plasma albumin cate urement (mass/volume)Ordered By: Dr. Lemus on 07-10-2022 Albumin [Mass/Vol] 3.9 g/dL 3.2-5.0 [facility] [facility] Serum or plasma cholesterol in HDL measurement (mass/volume)Ordered By: Dr. Lemus on 07-10-2022 Cholesterol in HDL [Mass/Vol] 66 mg/dL >40 [facility] Comment on above: The drugs N-Acetylcy steine and Metamizole may falsely depress this assay. Reference Range HDL <40 mg/dL Low HDL Cholesterol HDL >or= 60 mg/dL High HDL Cholesterol Serum or plasma cholesterol in VLDL measurement (mass/volume)Ordered By: Dr. Lemus on 07-10-2022 Cholesterol in VLDL [Mass/Vol] 38 mg/dL 5-40 [facility] Serum or plasma low density lipoprotein (LDL) cholesterol measurement (mass/volume)Ordered By: Dr. Lemus on 07-10-2022 Cholesterol in LDL [Mass/Vol] 66 mg/dL 0-130 [facility] Thin prep Papanicolaou smear with manual screeningOrdered By: Dr. Lemus on 07-10-2022 Thin prep Papanicolaou smear with manual screening 22 U/L 15-37 [facility] Laboratory - Chemistry and C hemistry - challengeOrdered By: Dr. Boggs on 05-28-2022 Free T4 [Mass/Vol] 0.89 ng/dL 0.76-1.46 [facility] No Panel InformationOrdered By: Dr. Boggs on 05-28-2022 Free Triiodothyronine (T3) pg/dL 2.2 pg/mL 2.18-3.98 [facility] Thyroid Stimulating Hormone (TSH) 0.34 uIU/mL 0.358-3.74 [facility] Laboratory - Chemistry and C hemistry - challengeOrdered By: Dr. Boggs on 03-31-2022 Free T4 [Mass/Vol] 1.06 ng/dL 0.76-1.46 [facility] No Panel InformationOrdered By: Dr. Boggs on 03-31-2022 Free Triiodothyronine (T3) pg/dL 3.6 pg/mL 2.18-3.98 [facility] Thyroid Stimulating Hormone (TSH) 0.08 uIU/mL 0.358-3.74 [facility] Absolute lymphocyte counton 02-24-2022 Lymphocytes Auto (Unsp spec) [#/Vol] 1.68 10*3/uL 0.83-4.51 [facility] Work Phone: Basophil percentageon 2021 Basophils/100 WBC (Bld) 0.7 % 0-1 [facility] Work Phone: Chloride [Moles/Vol] 105 mmol/L 98-107 [facility] Work Phone: Eosinophils/100 WBC (Bld) 3.2 % 0-5 [facility] Work Phone: Glucose [Mass/Vol] 118 mg/dL 74-106 [facility] Work Phone: Comment on above: Fasting Glucose resu lt from 100 to 125 mg/dL suggests IMPAIRED HOMEOSTASIS per A.D.A. criteria. Neutrophils (Bld) [#/Vol] 3.3 10*3/uL 2.0-7.7 [facility] Work Phone: Neutrophils/100 WBC (Bld) 54.7 % 47-70 [facility] Work Phone: Potassium [Moles/Vol] 3.3 mmol/L 3.5-5.1 [facility] Work Phone: Sodium [Moles/Vol] 140 mmol/L 136-145 [facility] Work Phone: WBC (Bld) [#/Vol] 6.0 10*3/uL 4.4-11.0 [facility] Work Phone: Blood erythrocytes count (nu mber/volume)on 02-24-2022 RBC (Bld) [#/Vol] 4.25 10*6/uL 4.2-5.4 [facility] Work Phone: Blood hemoglobin measurement (mass/volume)on 02-24-2022 Hemoglobin (Bld) [Mass/Vol] 13.5 g/dL 12.0-15.0 [facility] Work Phone: Blood lymphocytes/100 leukoc yteson 02-24-2022 Lymphocytes/100 WBC (Bld) 28.0 % 19-41 [facility] Work Phone: Blood monocytes/100 leukocyt eson 02-24-2022 Monocytes/100 WBC (Bld) 13.2 % 0-10 [facility] Work Phone: Blood platelet mean volumeon 02-24-2022 Platelet mean volume (Bld) [Entitic vol] 9.6 fL 6.2-12.0 [facility] Work Phone: Determination of erythrocyte mean corpuscular volume (MCV)on 02-24-2022 MCV (RBC) [Entitic vol] 94.6 fL 81-99 [facility] Work Phone: Hematocrit Auto (Bld) [Volum e fraction]on 02-24-2022 Hematocrit (Bld) [Volume fraction] 40.2 % 37-47 [facility] Work Phone: Laboratory - Chemistry and C hemistry - challengeon 02-24-2022 CO2 [Moles/Vol] 22.0 mmol/L 21.0-32.0 [facility] Work Phone: Urea nitrogen/Creatinine [Mass ratio] 15.4 mg/mg 10-20 [facility] Work Phone: Laboratory - Hematology and Cell countson 02-24-2022 Erythrocyte distribution width (RBC) [Entitic vol] 47.0 fL 35.1-43.9 [facility] Work Phone: Erythrocyte distribution width (RBC) [Ratio] 13.4 % 11.6-14.6 [facility] Work Phone: Immature granulocytes/100 WBC (Bld) 0.200 % 0.0-0.9 [facility] Work Phone: Comment on above: IG% - Immature Granu locytes (promyelocytes, myelocytes and metamyelocytes) > 1% indicates that a LEFT SHIFT is Present. MCH (RBC) [Entitic mass] 31.8 pg 27.0-32.0 [facility] Work Phone: Nucleated RBC/100 WBC (Bld) [Ratio] 0 % 0-5 [facility] Work Phone: MCHC Auto (RBC) [Mass/Vol]on 02-24-2022 MCHC (RBC) [Mass/Vol] 33.6 g/dL 32-36 [facility] Work Phone: No Panel Informationon 02-24 Troponin I High Sensitivity 24 pg/mL 3.0-54.0 [facility] Work Phone: Comment on above: Please Note: New Neelam t Units and Gender Specific Reference Ranges. For more information see Policy Stat Procedure [place] High Sensitivity Troponin (TNIH) and attachments. D-Dimer Quantitative (PE/DVT) 0.98 FEU/ug/m 0.27-0.49 [facility] Work Phone: Comment on above: D-Dimer ELEVATED (>0 .49): Additional studies and clinicalassessments are indicated to conclude diagnosis of:Deep Vein Thrombosis (DVT) or Pulmonary Embolism (PE)RESULTS CALLED TO Eddie HOLLINGSWORTH RN ED 02/24/22 0912 [place] Gonzales.REPORT READ BACK BY SAME. Estimated Creatinine Clearance Calc 44.06 ml/min [facility] Work Phone: Estimated GFR (MDRD) Amer 73 mL/min >60 [facility] Work Phone: Comment on above: GFR Calc Estimated GFR (MDRD) Non-Af Amer 60 mL/min >60 [facility] Work Phone: Comment on above: Non- GFR Calc Thyroid Stimulating Hormone (TSH) 0.21 uIU/mL 0.358-3.74 [facility] Work Phone: Platelets bldon 02-24-2022 Platelets (Bld) [#/Vol] 314 10*3/uL 150-450 [facility] Work Phone: Serum or plasma calcium cate urement (mass/volume)on 02-24-2022 Calcium [Mass/Vol] 9.6 mg/dL 8.5-10.1 [facility] Work Phone: Serum or plasma creatinine m easurement (mass/volume)on 02-24-2022 Creatinine [Mass/Vol] 0.98 mg/dL 0.55-1.02 [facility] Work Phone: Comment on above: The validity of the calculated GFR & GFRAA in patients over 70 years has not been determined. Clinical correlation is essential. Serum or plasma urea nitroge n measurement (mass/volume)on 02-24-2022 Urea nitrogen [Mass/Vol] 15 mg/dL 7-18 [facility] Work Phone: Thin prep Papanicolaou smear with manual screeningon 02-24-2022 Thin prep Papanicolaou smear with manual screening 13 5-15 [facility] Work Phone: Laboratory - Chemistry and C hemistry - challengeon 01-24-2022 Free T4 [Mass/Vol] 0.81 ng/dL 0.76-1.46 [facility] Work Phone: No Panel Informationon 01-24 Free Triiodothyronine (T3) pg/dL 1.7 pg/mL 2.18-3.98 [facility] Work Phone: Thyroid Stimulating Hormone (TSH) 0.86 uIU/mL 0.358-3.74 [facility] Work Phone: Serum or plasma thyroperoxid ase antibody assay (units/volume)on 01-24-2022 TPO Ab Qn [IU]/mL 0-34 [facility] Work Phone: Comment on above: Performed at: [address] [id number] Director: Jeison Velasquez PhD, Phone: [phone] Basophil percentageon 2021 Bilirubin [Mass/Vol] 1.00 mg/dL 0.20-1.00 [facility] Work Phone: Comment on above: For patients on eltr ombopag therapy, use of Dimension [place] TBIL is not recommended. Cholesterol [Mass/Vol] 168 mg/dL <200 [facility] Work Phone: Comment on above: <200 mg/dL Desirable 200-240 mg/dL Borderline >240 mg/dL High Risk Protein [Mass/Vol] 7.2 g/dL 6.4-8.2 [facility] Work Phone: Triglyceride [Mass/Vol] 144 mg/dL <199 [facility] Work Phone: Comment on above: The drugs N-Acetylcy steine and Metamizole may falsely depress this assay.Serum Triglycerides Reference Interval Normal <150 mg/dL Borderline high 150 - 199 mg/dL High 200 - 499 mg/dL Very High > or = 500 mg/dL Direct bilirubinon Bilirubin.direct [Mass/Vol] 0.23 mg/dL 0.00-0.30 [facility] Work Phone: [phone] Laboratory - Chemistry and C hemistry - challengeon 01-13-2022 ALP [Catalytic activity/Vol] 54 U/L 45-117 [facility] Work Phone: ALT [Catalytic activity/Vol] 21 U/L 13-56 [facility] Work Phone: Globulin (S) [Mass/Vol] 3.0 g/dL 2.2-4.2 [facility] Work Phone: Serum or plasma albumin cate urement (mass/volume)on 01-13-2022 Albumin [Mass/Vol] 4.2 g/dL 3.2-5.0 [facility] Work Phone: Serum or plasma cholesterol in HDL measurement (mass/volume)on 01-13-2022 Cholesterol in HDL [Mass/Vol] 66 mg/dL >40 [facility] Work Phone: Comment on above: The drugs N-Acetylcy steine and Metamizole may falsely depress this assay. Reference Range HDL <40 mg/dL Low HDL Cholesterol HDL >or= 60 mg/dL High HDL Cholesterol Serum or plasma cholesterol in VLDL measurement (mass/volume)on 01-13-2022 Cholesterol in VLDL [Mass/Vol] 29 mg/dL 5-40 [facility] Work Phone: Serum or plasma low density lipoprotein (LDL) cholesterol measurement (mass/volume)on 01-13-2022 Cholesterol in LDL [Mass/Vol] 73 mg/dL 0-130 [facility] Work Phone: Thin prep Papanicolaou smear with manual screeningon 01-13-2022 Thin prep Papanicolaou smear with manual screening 27 U/L 15-37 [facility] Work Phone: Office Visit: [facility] 02-03-20 17 Documentation of current medications (procedure) Done Invalid Interpretation Code [facility] Work Phone: [phone] Fall risk assessment No Invalid Interpretation Code [facility] Work Phone: [phone] Protein mass conc Done [facility] Work Phone: [phone] Lab Report: Lipid Profileon 01-29-2017 Cholesterol 230 mg/dL High 200 [email or web address] Work Phone: [phone] HDL Cholesterol 65 mg/dL Invalid Interpretation Code [email or web address] Work Phone: [phone] LDL Cholesterol 132 mg/dL High 0-130 [email or web address] Work Phone: [phone] Triglyceride 167 mg/dL Invalid Interpretation Code [facility] Work Phone: [phone] very low density lipoproteins 33 mg/dL Invalid Interpretation Code 5-40 [email or web address] Work Phone: [phone] Lab Report: Liver Profileon 01-29-2017 Alanine aminotransferase (ALT) 23 U/L Invalid Interpretation Code 12-78 [email or web address] Work Phone: [phone] Albumin 4.0 g/dL Invalid Interpretation Code 3.4-5.0 [email or web address] Work Phone: [phone] Alkaline phosphatase (ALP) 65 U/L Invalid Interpretation Code 45-117 [email or web address] Work Phone: [phone] ALP enzyme act/vol (Bld) 65 U/L 45-117 [email or web address] Work Phone: [phone] Aspartate aminotransferase (AST) 27 U/L Invalid Interpretation Code 15-37 [email or web address] Work Phone: [phone] Bilirubin (direct) 0.16 mg/dL Invalid Interpretation Code 0.00-0.30 [email or web address] Work Phone: [phone] Bilirubin (total) 0.70 mg/dL Invalid Interpretation Code 0.20-1.00 [email or web address] Work Phone: [phone] Globulin 3.4 g/dL Invalid Interpretation Code 2.3-3.5 [email or web address] Work Phone: [phone] Globulin mass conc (S) 3.4 g/dL 2.3-3.5 [facility] Work Phone: [phone] Protein 7.4 g/dL Invalid Interpretation Code 6.4-8.2 [facility] Phone: [phone] Office Visiton 08-06-2016 Documentation of current medications (procedure) Done Invalid Interpretation Code [facility] 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 Left ventricular Ejection fraction 60 % Invalid Interpretation Code [facility] Phone: [phone] Office Visit: postop surgery 06/17/16on 06-24-2016 Dietary management education, guidance, and counseling (procedure) yes Invalid Interpretation Code [facility] Phone: [phone] Tobacco smoking status NHIS Never Invalid Interpretation Code [email or web address] Work Phone: [phone] Tobacco smoking status NHIS Former smoker [email or web address] Work Phone: [phone] Tobacco use [facility] Former smoker Invalid Interpretation Code [facility] Phone: [phone] Append: CR - Individual Cheryl perla PlanOriginal Ordering Provider: Nurys 03-09-2016 Clinical consultation report (record artifact) [id number]^11/15/2015 Invalid Interpretation Code [facility] Phone: [phone] Replaced Document: Kathya Rizo CG Observationson 11-15-2015 EKG QRS axis -4 deg [email or web address] Work Phone: [phone] electrocardiogram interpretation Sinus Bradycardia Low voltage in limb leads. - Negative T-waves -Possible Inferior ischemia. ABNORMAL Invalid Interpretation Code [facility] Phone: [phone] GE use only - for [employer] import when terms are not otherwise specified 470 ms Invalid Interpretation Code [facility] Phone: [phone] Interpretation Sinus Bradycardia Lo w voltage in limb leads. - Negative T-waves -Possible Inferior ischemia. ABNORMAL [email or web address] Work Phone: [phone] P Inglis 44 deg [email or web address] Work Phone: [phone] P wave axis, electrocardiogram 44 deg Invalid Interpretation Code [email or web address] Work Phone: [phone] OK Interval 150 ms [email or web address] Work Phone: [phone] OK interval, electrocardiogram 150 ms Invalid Interpretation Code [email or web address] Work Phone: [phone] Pulse (Heart Rate) 52 /min Invalid Interpretation Code [facility] Phone: [phone] QRS axis, electrocardiogram -4 deg Invalid Interpretation Code [facility] Work Phone: [phone] QRS Duration 102 ms [facility] Work Phone: [phone] QRS duration, electrocardiogram 102 ms Invalid Interpretation Code [facility] Work Phone: [phone] QT Interval new path ms [facility] Work Phone: [phone] QT interval, electrocardiogram new path ms Invalid Interpretation Code [facility] Work Phone: [phone] QTc Pyle 470 ms [facility] Work Phone: [phone] T Inglis -45 deg [facility] Work Phone: [phone] T wave axis, electrocardiogram -45 deg Invalid Interpretation Code [facility] Work Phone: [phone] 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 Calcium 8.1 mg/dL Low [facility] Work Phone: [phone] Chloride 111 mmol/L High [facility] Work Phone: [phone] CO2 23 mmol/L Invalid Interpretation Code [facility] Work Phone: [phone] CO2 ppres (BldV) 23 mmol/L [facility] Work Phone: [phone] Creatinine 0.84 mg/dL Invalid Interpretation Code [facility] Work Phone: [phone] eGFR (non-black) mL/min/{1.73_m2} Invalid Interpretation Code [facility] Work Phone: [phone] Erythrocyte distribution width Ratio (RBC) 13.8 % [facility] Work Phone: [phone] Erythrocytes (RBC) 3.77 10*6/uL Low [facility] Work Phone: [phone] Glomerular Filtration Rate >60 [facility] Work Phone: [phone] Glucose 88 mg/dL Invalid Interpretation Code [facility] Work Phone: [phone] Glucose mass conc 88 mg/dL [facility] Work Phone: [phone] Hematocrit (HCT) 35.3 % Invalid Interpretation Code [facility] Work Phone: [phone] Hematocrit Volume Fraction (Bld) 35.3 % [facility] Work Phone: [phone] Hemoglobin (HGB) 11.9 g/dL Invalid Interpretation Code [facility] Work Phone: [phone] Magnesium 1.9 mg/dL Invalid Interpretation Code [facility] Work Phone: [phone] MCH 31.6 pg Invalid Interpretation Code [facility] Work Phone: [phone] MCH Entitic mass (RBC) 31.6 pg [facility] Work Phone: [phone] MCHC 33.7 g/dL Invalid Interpretation Code [facility] Work Phone: [phone] MCHC mass conc (RBC) 33.7 g/dL [facility] Work Phone: [phone] MCV 93.6 fL Invalid Interpretation Code [facility] Work Phone: [phone] MCV Entitic volume (RBC) 93.6 fL [facility] Work Phone: [phone] Platelet mean volume Entitic volume (Bld) 10.3 fL [facility] Work Phone: [phone] Platelets 175 10*3/mm3 Invalid Interpretation Code [facility] Work Phone: [phone] Platelets #/vol (Bld) 175 10*3/mm3 [facility] Work Phone: [phone] PMV by Momo 10.3 fL Invalid Interpretation Code [facility] Work Phone: [phone] Potassium 4.0 mmol/L Invalid Interpretation Code [facility] Work Phone: [phone] RBC #/vol (Bld) 3.77 10*6/uL Low [facility] Work Phone: [phone] RDW-CA 13.8 % Invalid Interpretation Code [facility] Work Phone: [phone] Sodium 141 mmol/L Invalid Interpretation Code [facility] Work Phone: [phone] Urea nitrogen 11 mg/dL Invalid Interpretation Code [facility] Work Phone: [phone] WBC #/vol (Bld) 7.6 10*3/uL [facility] Work Phone: [phone] WBC (Leukocytes) 7.6 10*3/uL Invalid Interpretation Code [facility] Work Phone: [phone]) Lab Report: CK-MB Quantitati ve and Indexon 10-21-2015 CKMB Test not performed % Invalid Interpretation Code 0.0-1.4 [facility] Work Phone: [phone] CKMB ng/mL Invalid Interpretation Code 0.0-5.0 [facility] Work Phone: [phone] Creatine kinase (CK) 38 U/L Invalid Interpretation Code 26-192 [facility] Work Phone: [phone] Creatine kinase.MB < 0.5 ng/mL 0.0-5.0 [facility] [employer] Work Phone: [phone]) Lab Report: Partial Thrombop last Timeon 10-21-2015 aPTT 20.0 s Low 24.1-36.2 [facility] [facility] Work Phone: [phone]) Lab Report: Prothrombin Time w/INRon 10-21-2015 Coagulation tissue factor induced in platelet poor plasma 11.8 s Invalid Interpretation Code 11.7-14.9 [facility] [facility] [facility] Work Phone: [phone] INR Coag RelTime (PPP) 0.9 {INR} [facility] [facility] [facility] Work Phone: [phone] INR in blood by coagulation 0.9 {INR} Invalid Interpretation Code [facility] [facility] [facility] Work Phone: [phone]) Lab Report: Troponin-Ion Troponin I 0.02 ng/mL Invalid Interpretation Code <0.06 [facility] [facility] [facility] Work Phone: [phone]) Office Visit: F/u Hypothyroi dism, HTN, GERDon 06-11-2015 HbA1c 5.5 % Invalid Interpretation Code [facility] [facility] Work Phone: [phone]) Lab Report: Basic Metabolic Profile (BMP)on 02-06-2015 Anion gap 9 mmol/L Invalid Interpretation Code 11-09 [facility] Work Phone: [phone] Anion gap molar conc 9 mmol/L 11-[address] [facility] Work Phone: [phone] BUN/Creatinine Ratio 18.6 RATIO Invalid Interpretation Code 04-16 [facility] Work Phone: eGFR (non-black) 52 mL/min/{1.73_m2} Low >60 [facility] Work Phone: [phone] eGFR (non-black) 63 mL/min/{1.73_m2} Invalid Interpretation Code >60 [facility] Work Phone: [phone] EST GFR - AA 63 mL/min >60 [facility] Work Phone: [phone] Lab Report: CBC W/Diff, Auto matedon 02-06-2015 Absolute Neut 3.5 X10 3/UL 2.0-7.7 [email or web address] Work Phone: [phone] Absolute Neutrophil count 3.5 X10 3/UL Invalid Interpretation Code 2.0-7.7 [email or web address] Work Phone: [phone] Basophils/100 leukocytes 0.3 % Invalid Interpretation Code 0-1 [email or web address] Work Phone: [phone] Basophils/100 WBC (Bld) 0.3 % 0-1 [email or web address] Work Phone: [phone] Eosinophils/100 leukocytes 3.7 % Invalid Interpretation Code 0-5 [email or web address] Work Phone: Eosinophils/100 WBC (Bld) 3.7 % 0-5 [email or web address] Work Phone: [phone] Erythrocyte distribution width Ratio (RBC) 42.4 fL 35.1-43.9 [email or web address] Work Phone: [phone] Immature granulocytes #/vol (Bld) 0.200 % 0.0-0.9 [email or web address] Work Phone: immature granulocytes, percentage of total cells, blood 0.200 % Invalid Interpretation Code 0.0-0.9 [email or web address] Work Phone: Lymphocytes 2.36 X10 3/UL Invalid Interpretation Code 0.83-4.51 [email or web address] Work Phone: Lymphocytes #/vol (Bld) 2.36 X10 3/UL 0.83-4.51 [email or web address] Work Phone: [phone] Lymphocytes/100 leukocytes 36.1 % Invalid Interpretation Code 19-41 [email or web address] Work Phone: [phone] Lymphocytes/100 WBC (Bld) 36.1 % 19-41 [facility] Work Phone: [phone] Monocytes/100 leukocytes 6.6 % Invalid Interpretation Code 0-10 [email or web address] Work Phone: [phone] Monocytes/100 WBC (Bld) 6.6 % 0-10 [email or web address] Work Phone: [phone] Neutrophils/100 leukocytes 53.1 % Invalid Interpretation Code 47-70 [email or web address] Work Phone: [phone] Neutrophils/100 WBC (Bld) 53.1 % 47-70 [email or web address] Work Phone: [phone] red blood cell distribution width, size density 42.4 fL Invalid Interpretation Code 35.1-43.9 [email or web address] Work Phone: [phone] Lab Report: T4 Total, Thyrox inon 02-06-2015 Thyroxine (T4) 10.3 ug/dL Invalid Interpretation Code 4.8-13.9 [email or web address] Work Phone: [phone] Lab Report: Thyroid Stim Hor ninoska (TSH)on 02-06-2015 Thyroid stimulating hormone (TSH) 3.66 u[iU]/mL Invalid Interpretation Code 0.358-3.74 [email or web address] Work Phone: [phone] [facility] Protein mass conc yes [email or web address] Work Phone: [phone] Smoking cessation education (procedure) yes Invalid Interpretation Code [email or web address] Work Phone: [phone] Lab Report: (P) Urinalysis, Completeon 10-05-2014 specific gravity, urine 1.010 Invalid Interpretation Code 1.002-1.03 0 [email or web address] Work Phone: [phone] Office Visiton 08-07-2014 cardiac risk group C Invalid Interpretation Code [email or web address] Work Phone: [phone] General cardiovascular disease 10Y risk [#] [facility] N/A Invalid Interpretation Code [email or web address] Work Phone: [phone] Office Visiton 07-24-2014 Albumin Ql (U) trace [email or web address] Work Phone: [phone] Bilirubin Ql (U) Negative [facility] [facility] [facility] Work Phone: [phone] blood in urine (hemoglobin) by dipstick Negative Invalid Interpretation Code [facility] [facility] Work Phone: [phone] Glucose Test strip mass conc (U) Negative [facility] Work Phone: [phone] Ketones mass conc (U) Negative [facility] Work Phone: [phone] Nitrite Ql (U) Negative [facility] [facility] [facility] Work Phone: [phone] pH (U) 5.0 [pH] [facility] [facility] Work Phone: [phone] Urine, appearance cloudy Invalid Interpretation Code [facility] [facility] [facility] Work Phone: [phone] Urine, bilirubin presence Negative Invalid Interpretation Code [facility] [facility] [facility] Work Phone: [phone] Urine, color yellow Invalid Interpretation Code [facility] Work Phone: [phone] Urine, glucose presence Negative Invalid Interpretation Code [facility] [facility] Work Phone: [phone] Urine, ketones presence Negative Invalid Interpretation Code [facility] [facility] [facility] Work Phone: [phone] Urine, leukocyte esterase presence Negative Invalid Interpretation Code [facility] Work Phone: [phone] Urine, nitrite presence Negative Invalid Interpretation Code [facility] Work Phone: [phone] Urine, pH 5.0 [pH] Invalid Interpretation Code [facility] Work Phone: [phone] Urine, protein trace Invalid Interpretation Code [facility] [facility] [facility] Work Phone: [phone] Urine, urobilinogen presence 0.2 Invalid Interpretation Code [facility] [facility] [facility] Work Phone: [phone] External Other: Preferred Me thod of Contacton 01-25-2014 methcontact secmsg [facility] [facility] [facility] Work Phone: [phone]) Patient's prefered method of contact secmsg Invalid Interpretation Code [facility] Work Phone: [phone] Lab Report: WPon 07-25-2013 WBC #/vol (Bld) WBC 0-5 Normal [facility] Work Phone: [phone] WBC (Leukocytes) WBC 0-5 Normal [facility] Work Phone: EKG Report: [facility] ECG Obse rvationson 04-27-2013 Pulse (Heart Rate) 429 ms Invalid Interpretation Code [facility] Phone: [phone] Office Visiton 02-26-2013 Colonoscopy (procedure) Colonoscopy (procedure) Invalid Interpretation Code [facility] Phone: [phone] Protein mass conc Colonoscopy (procedure) [email or web address] Work Phone: [phone] Office Visiton 12-26-2012 Breast Mammogram screening Normal Bilateral Invalid Interpretation Code [facility] Phone: [phone] 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 Teresa Boggs DO Work Phone: [facility] 12-15-2024 05:57-0400 Body temperature 97 [degF] Dr. Teresa Boggs DO Work Phone: [facility] 12-15-2024 05:57-0400 Body weight 67.[address] Teresa Boggs DO Work Phone: [facility] 12-15-2024 05:57-0400 Diastolic blood pressure 72 mm[Hg] Dr. Teresa Boggs DO Work Phone: [facility] 12-15-2024 05:57-0400 Heart rate 63 /min Dr. Teresa Boggs DO Work Phone: [facility] 12-15-2024 05:57-0400 Respiratory rate 16 /min Dr. Teresa Boggs DO Work Phone: [facility] 12-15-2024 05:57-0400 SaO2% (BldA) [Mass fraction] 97 % Dr. Teresa Boggs DO Work Phone: [facility] 12-15-2024 05:57-0400 Systolic blood pressure 139 mm[Hg] Dr. Teresa Boggs DO Work Phone: [facility] 12-14-2024 14:10-0400 Body height 156.[address] Teresa Boggs DO Work Phone: [facility] 10-31-2024 08:45-0400 Body height 156.[address] Teresa Boggs DO Work Phone: [facility] 10-31-2024 08:45-0400 Body weight 68.[address] Teresa Boggs DO Work Phone: [facility] 10-31-2024 08:45-0400 Heart rate 62 /min Dr. Teresa Boggs DO Work Phone: [facility] 10-31-2024 08:45-0400 SaO2% (BldA) [Mass fraction] 98 % Dr. Teresa Boggs DO Work Phone: [facility] 10-18-2024 09:48-0400 Body mass index (BMI) [Ratio] 28.5 kg/m2 Dr. Teresa Boggs DO Work Phone: [facility] 10-18-2024 09:48-0400 Body temperature 95.1 [degF] Dr. Teresa Boggs DO Work Phone: [facility] 10-18-2024 09:48-0400 Body weight 68.[address] Teresa Boggs DO Work Phone: [facility] 10-18-2024 09:48-0400 Diastolic blood pressure 79 mm[Hg] Dr. Teresa Boggs DO Work Phone: [facility] 10-18-2024 09:48-0400 Heart rate 81 /min Dr. Teresa Boggs DO Work Phone: [facility] 10-18-2024 09:48-0400 Respiratory rate 20 /min Dr. Teresa Boggs DO Work Phone: [facility] 10-18-2024 09:48-0400 SaO2% (BldA) [Mass fraction] 97 % Dr. Teresa Boggs DO Work Phone: [facility] 10-18-2024 09:48-0400 Systolic blood pressure 121 mm[Hg] Dr. Teresa Boggs DO Work Phone: [facility] 09-14-2024 09:52-0400 Body height 154.[address] Teresa Boggs DO Work Phone: [facility] 09-14-2024 09:52-0400 Body weight 69.[address] Teresa Boggs DO Work Phone: [facility] 09-07-2024 07:30-0400 Body mass index (BMI) [Ratio] 29 kg/m2 Dr. Teresa Boggs DO Work Phone: [facility] 09-07-2024 07:30-0400 Body weight 69.[address] Teresa Boggs DO Work Phone: [facility] 09-07-2024 07:30-0400 Diastolic blood pressure 78 mm[Hg] Dr. Teresa Boggs DO Work Phone: [facility] 09-07-2024 07:30-0400 Heart rate 53 /min Dr. Teresa Boggs DO Work Phone: [facility] 09-07-2024 07:30-0400 Respiratory rate 18 /min Dr. Teresa Boggs DO Work Phone: [facility] 09-07-2024 07:30-0400 SaO2% (BldA) [Mass fraction] 99 % Dr. Teresa Boggs DO Work Phone: [facility] 09-07-2024 07:30-0400 Systolic blood pressure 128 mm[Hg] Dr. Teresa Boggs DO Work Phone: [facility] 08-17-2024 09:44-0500 Body height 154.[address] Teresa Boggs DO Work Phone: [facility] 08-17-2024 09:44-0500 Body weight 69.[address] Teresa Boggs DO Work Phone: [facility] 07-20-2024 11:18-0500 Body weight 71.[address] Teresa Boggs DO Work Phone: [facility] 07-20-2024 09:21-0500 Body temperature 98.1 [degF] Dr. Teresa Boggs DO Work Phone: [facility] 07-20-2024 09:21-0500 Diastolic blood pressure 72 mm[Hg] Dr. Teresa Boggs DO Work Phone: [facility] 07-20-2024 09:21-0500 Heart rate 88 /min Dr. Teresa Boggs DO Work Phone: [facility] 07-20-2024 09:21-0500 Respiratory rate 16 /min Dr. Teresa Boggs DO Work Phone: [facility] 07-20-2024 09:21-0500 SaO2% (BldA) [Mass fraction] 98 % Dr. Teresa Boggs DO Work Phone: [facility] 07-20-2024 09:21-0500 Systolic blood pressure 142 mm[Hg] Dr. Teresa Boggs DO Work Phone: [facility] 06-19-2024 07:11-0500 Body weight 73.[address] Teresa Boggs DO Work Phone: [facility] 05-22-2024 15:09-0500 Body mass index (BMI) [Ratio] 31.9 kg/m2 Dr. Teresa Boggs DO Work Phone: [facility] 05-22-2024 15:00-0500 Body weight 76.[address] Teresa Boggs DO Work Phone: [facility] 05-22-2024 14:17-0500 Diastolic blood pressure 83 mm[Hg] Dr. Teresa Boggs DO Work Phone: [facility] 05-22-2024 14:17-0500 Heart rate 80 /min Dr. Teresa Boggs DO Work Phone: [facility] 05-22-2024 14:17-0500 SaO2% (BldA) [Mass fraction] 99 % Dr. Teresa Boggs DO Work Phone: [facility] 05-22-2024 14:17-0500 Systolic blood pressure 127 mm[Hg] Dr. Teresa Boggs DO Work Phone: [facility] 05-10-2024 15:40-0500 Body mass index (BMI) [Ratio] 31.9 kg/m2 Dr. Teresa Boggs DO Work Phone: [facility] 05-10-2024 15:40-0500 Body weight 76.[address] Teresa Boggs DO Work Phone: [facility] 05-10-2024 15:40-0500 Diastolic blood pressure 83 mm[Hg] Dr. Teresa Boggs DO Work Phone: [facility] 05-10-2024 15:40-0500 Heart rate 80 /min Dr. Teresa Boggs DO Work Phone: [facility] 05-10-2024 15:40-0500 Respiratory rate 18 /min Dr. Teresa Boggs DO Work Phone: [facility] 05-10-2024 15:40-0500 SaO2% (BldA) [Mass fraction] 99 % Dr. Teresa Boggs DO Work Phone: [facility] 05-10-2024 15:40-0500 Systolic blood pressure 127 mm[Hg] Dr. Teresa Boggs DO Work Phone: [facility] 05-04-2024 12:00-0500 Body temperature 97.9 [degF] Nataly Tovar MD Work Phone: [facility] 05-04-2024 12:00-0500 Diastolic blood pressure 67 mm[Hg] Nataly Tovar MD Work Phone: [facility] 05-04-2024 12:00-0500 Heart rate 76 /min Nataly Tovar MD Work Phone: [facility] 05-04-2024 12:00-0500 Respiratory rate 18 /min Nataly Tovar MD Work Phone: [facility] 05-04-2024 12:00-0500 SaO2% (BldA) [Mass fraction] 98 % Nataly Tovar MD Work Phone: [facility] 05-04-2024 12:00-0500 Systolic blood pressure 120 mm[Hg] Nataly Tovar MD Work Phone: [facility] 05-04-2024 05:00-0500 Body mass index (BMI) [Ratio] 32.62 kg/m2 Nataly Tovar MD Work Phone: [facility] 05-04-2024 05:00-0500 Body weight 78.3 kg Nataly Tovar MD Work Phone: [facility] 05-02-2024 12:18-0500 Body height 154.9 cm Nataly Tovar MD Work Phone: [facility] 07-01-2023 10:38-0500 Body height 154.[address] Teresa Boggs Work Phone: [facility] 07-01-2023 10:38-0500 Body mass index (BMI) [Ratio] 30.9 kg/m2 Dr. Teresa Boggs Work Phone: [facility] 07-01-2023 10:38-0500 Body weight 74.[address] Teresa Boggs Work Phone: [facility] 07-01-2023 10:38-0500 Heart rate 67 /min Dr. Teresa Boggs Work Phone: [facility] 07-01-2023 10:38-0500 Respiratory rate 18 /min Dr. Teresa Boggs Work Phone: [facility] 07-01-2023 10:38-0500 SaO2% (BldA) [Mass fraction] 99 % Dr. Teresa Boggs Work Phone: [facility] 01-07-2023 09:05-0400 Body height 154.[address] Teresa Boggs Work Phone: [facility] 01-07-2023 09:05-0400 Body mass index (BMI) [Ratio] 32.1 kg/m2 Dr. Teresa Boggs Work Phone: [facility] 01-07-2023 09:05-0400 Body weight 77.[address] Teresa Boggs Work Phone: [facility] 01-07-2023 09:05-0400 Diastolic blood pressure 78 mm[Hg] Dr. Teresa Boggs Work Phone: [facility] 01-07-2023 09:05-0400 Heart rate 63 /min Dr. Teresa Boggs Work Phone: [facility] 01-07-2023 09:05-0400 Respiratory rate 18 /min Dr. Teresa Boggs Work Phone: [facility] 01-07-2023 09:05-0400 SaO2% (BldA) [Mass fraction] 98 % Dr. Teresa Boggs Work Phone: [facility] 01-07-2023 09:05-0400 Systolic blood pressure 152 mm[Hg] Dr. Teresa Boggs Work Phone: [facility] 10-19-2022 08:35-0400 Body temperature 97 [degF] Dr. Teresa Boggs Work Phone: [facility] 10-19-2022 08:35-0400 Diastolic blood pressure 58 mm[Hg] Dr. Teresa Boggs Work Phone: [facility] 10-19-2022 08:35-0400 Heart rate 56 /min Dr. Teresa Boggs Work Phone: [facility] 10-19-2022 08:35-0400 Respiratory rate 16 /min Dr. Teresa Boggs Work Phone: [facility] 10-19-2022 08:35-0400 SaO2% (BldA) [Mass fraction] 98 % Dr. Teresa Boggs Work Phone: [facility] 10-19-2022 08:35-0400 Systolic blood pressure 114 mm[Hg] Dr. Teresa Boggs Work Phone: [facility] 10-19-2022 07:14-0400 Body height 154.[address] Teresa Boggs Work Phone: [facility] 10-19-2022 07:14-0400 Body mass index (BMI) [Ratio] 31.5 kg/m2 Dr. Teresa Boggs Work Phone: [facility] 10-19-2022 07:14-0400 Body weight 75.[address] eTresa Boggs Work Phone: [facility] 10-08-2022 16:32-0400 Body mass index (BMI) [Ratio] 31.1 kg/m2 Dr. Teresa Boggs Work Phone: [facility] 10-08-2022 16:32-0400 Body weight 74.[address] Teresa Boggs Work Phone: [facility] 08-21-2022 10:53-0500 Body height 157.[address] Teresa Boggs Work Phone: [facility] 08-21-2022 10:53-0500 Body temperature 96.9 [degF] Dr. Teresa Boggs Work Phone: [facility] 08-21-2022 10:53-0500 Heart rate 63 /min Dr. Teresa Boggs Work Phone: [facility] 08-21-2022 10:53-0500 Respiratory rate 16 /min Dr. Teresa Boggs Work Phone: [facility] 08-21-2022 10:53-0500 SaO2% (BldA) [Mass fraction] 93 % Dr. Teresa Boggs Work Phone: [facility] 08-06-2022 09:59-0500 Body height 157.[address] Teresa Boggs Work Phone: [facility] 08-06-2022 09:59-0500 Body temperature 96.9 [degF] Dr. Teresa Boggs Work Phone: [facility] 08-06-2022 09:59-0500 Heart rate 65 /min Dr. Teresa Boggs Work Phone: [facility] 08-06-2022 09:59-0500 Respiratory rate 16 /min Dr. Teresa Boggs Work Phone: [facility] 08-06-2022 09:59-0500 SaO2% (BldA) [Mass fraction] 96 % Dr. Teresa Boggs Work Phone: [facility] 07-30-2022 10:01-0500 Body temperature 96.9 [degF] Dr. Teresa Boggs Work Phone: [facility] 07-30-2022 10:01-0500 Heart rate 61 /min Dr. Teresa Boggs Work Phone: [facility] 07-30-2022 10:01-0500 Respiratory rate 16 /min Dr. Teresa Boggs Work Phone: [facility] 07-30-2022 10:01-0500 SaO2% (BldA) [Mass fraction] 98 % Dr. Teresa Boggs Work Phone: [facility] 07-21-2022 10:22-0500 Body height 157.[address] Teresa Boggs Work Phone: [facility] 07-21-2022 10:22-0500 Body temperature 96.9 [degF] Dr. Teresa Boggs Work Phone: [facility] 07-21-2022 10:22-0500 Heart rate 61 /min Dr. Teresa Boggs Work Phone: [facility] 07-21-2022 10:22-0500 Respiratory rate 16 /min Dr. Teresa Boggs Work Phone: [facility] 07-21-2022 10:22-0500 SaO2% (BldA) [Mass fraction] 94 % Dr. Teresa Boggs Work Phone: [facility] 07-15-2022 11:06-0500 Body temperature 97.8 [degF] Dr. Teresa Boggs Work Phone: [facility] 07-15-2022 11:06-0500 Diastolic blood pressure 52 mm[Hg] Dr. Teresa Boggs Work Phone: [facility] 07-15-2022 11:06-0500 Heart rate 73 /min Dr. Teresa Boggs Work Phone: [facility] 07-15-2022 11:06-0500 Respiratory rate 16 /min Dr. Teresa Boggs Work Phone: [facility] 07-15-2022 11:06-0500 SaO2% (BldA) [Mass fraction] 93 % Dr. Teresa Boggs Work Phone: [facility] 07-15-2022 11:06-0500 Systolic blood pressure 119 mm[Hg] Dr. Teresa Boggs Work Phone: [facility] 07-15-2022 06:32-0500 Body height 157.[address] Teresa Boggs Work Phone: [facility] 07-15-2022 06:32-0500 Body mass index (BMI) [Ratio] 29.8 kg/m2 Dr. Teresa Boggs Work Phone: [facility] 07-15-2022 06:32-0500 Body weight [address] Teresa Boggs Work Phone: [facility] 07-10-2022 09:21-0500 Body mass index (BMI) [Ratio] 30.2 kg/m2 Dr. Teresa Boggs Work Phone: [facility] 07-10-2022 09:21-0500 Body weight 74.[address] Teresa Boggs Work Phone: [facility] 07-10-2022 09:21-0500 Diastolic blood pressure 69 mm[Hg] Dr. Teresa Boggs Work Phone: [facility] 07-10-2022 09:21-0500 Heart rate 64 /min Dr. Teresa Boggs Work Phone: [facility] 07-10-2022 09:21-0500 Respiratory rate 18 /min Dr. Teresa Boggs Work Phone: [facility] 07-10-2022 09:21-0500 Systolic blood pressure 107 mm[Hg] Dr. Teresa Boggs Work Phone: [facility] 06-08-2022 10:07-0500 Body mass index (BMI) [Ratio] 29.9 kg/m2 Dr. Teresa Boggs Work Phone: [facility] 06-08-2022 10:07-0500 Body temperature 96.6 [degF] Dr. Teresa Boggs Work Phone: [facility] 06-08-2022 10:07-0500 Body weight 74.[address] Teresa Boggs Work Phone: [facility] 06-08-2022 10:07-0500 Diastolic blood pressure 65 mm[Hg] Dr. Teresa Boggs Work Phone: [facility] 06-08-2022 10:07-0500 Heart rate 54 /min Dr. Teresa Boggs Work Phone: [facility] 06-08-2022 10:07-0500 Respiratory rate 17 /min Dr. Teresa Boggs Work Phone: [facility] 06-08-2022 10:07-0500 SaO2% (BldA) [Mass fraction] 96 % Dr. Teresa Boggs Work Phone: [facility] 06-08-2022 10:07-0500 Systolic blood pressure 142 mm[Hg] Dr. Teresa Boggs Work Phone: [facility] 05-06-2022 10:50-0500 Body height 157.[address] Teresa Boggs Work Phone: [facility] Work Phone: 05-06-2022 10:50-0500 Body mass index (BMI) [Ratio] 29.9 kg/m2 Dr. Teresa Boggs Work Phone: [facility] 05-06-2022 10:50-0500 Body weight 74.[address] Teresa Boggs Work Phone: [facility] 02-24-2022 12:48-0400 Diastolic blood pressure 63 mm[Hg] Dr. Teresa Boggs Work Phone: [facility] Work Phone: 02-24-2022 12:48-0400 Heart rate 63 /min Dr. Teresa Boggs Work Phone: [facility] Work Phone: 02-24-2022 12:48-0400 Respiratory rate 18 /min Dr. Teresa Boggs Work Phone: [facility] Work Phone: 02-24-2022 12:48-0400 SaO2% (BldA) [Mass fraction] 95 % Dr. Teresa Boggs Work Phone: [facility] Work Phone: 02-24-2022 12:48-0400 Systolic blood pressure 108 mm[Hg] Dr. Teresa Boggs Work Phone: [facility] Work Phone: 02-24-2022 07:43-0400 Body height 157.[address] Teresa Boggs Work Phone: [facility] Work Phone: 02-24-2022 07:43-0400 Body mass index (BMI) [Ratio] 31.1 kg/m2 Dr. Teresa Boggs Work Phone: [facility] Work Phone: 02-24-2022 07:43-0400 Body temperature 96.8 [degF] Dr. Teresa Boggs Work Phone: [facility] Work Phone: 02-24-2022 07:43-0400 Body weight 77.[address] Teresa Boggs Work Phone: [facility] Work Phone: 01-12-2022 09:15-0400 Body height 157.[address] Teresa Boggs Work Phone: [facility] Work Phone: 01-12-2022 09:15-0400 Body mass index (BMI) [Ratio] 31.4 kg/m2 Dr. Teresa Boggs Work Phone: [facility] Work Phone: 01-12-2022 09:15-0400 Body weight 78.[address] Teresa Boggs Work Phone: [facility] Work Phone: 01-12-2022 09:15-0400 Diastolic blood pressure 69 mm[Hg] Dr. Teresa Boggs Work Phone: [facility] Work Phone: 01-12-2022 09:15-0400 Heart rate 66 /min Dr. Teresa Boggs Work Phone: [facility] Work Phone: 01-12-2022 09:15-0400 Respiratory rate 18 /min Dr. Teresa Boggs Work Phone: [facility] Work Phone: 01-12-2022 09:15-0400 SaO2% (BldA) [Mass fraction] 98 % Dr. Teresa Boggs Work Phone: [facility] Work Phone: 01-12-2022 09:15-0400 Systolic blood pressure 114 mm[Hg] Dr. Teresa Boggs Work Phone: [facility] Work Phone: 02-02-2017 12:59-0400 BMI (Body Mass Index) 31.68 kg/m2 [facility] Work Phone: 02-02-2017 12:59-0400 BP Diastolic 72 mm[Hg] [facility] Work Phone: 02-02-2017 12:59-0400 BP Systolic 142 mm[Hg] [facility] Work Phone: 02-02-2017 12:59-0400 Height 154.94 cm [facility] Work Phone: 02-02-2017 12:59-0400 Pulse (Heart Rate) 60 /min [facility] Work Phone: 02-02-2017 12:59-0400 Respiratory Rate 20 /min Sejal Lyons [facility] Work Phone: 02-02-2017 12:59-0400 Weight 76.07 kg Sejal Lyons [facility] Work Phone: 08-06-2016 09:42-0500 BMI (Body Mass Index) 33.44 kg/m2 Carrington Wakefield [employer] [facility] Work Phone: 08-06-2016 09:42-0500 BP Diastolic 60 mm[Hg] Carrington Wakefield [employer] [facility] Work Phone: 08-06-2016 09:42-0500 BP Systolic 110 mm[Hg] Carrington Wakefield [employer] [facility] Work Phone: 08-06-2016 09:42-0500 BSA (Body Surface Area) 1.8 m2 Carrington Wakefield [employer] [facility] Work Phone: 08-06-2016 09:42-0500 Pulse (Heart Rate) 52 /min Carrington Wakefield [employer] [facility] Work Phone: 08-06-2016 09:42-0500 Respiratory Rate 20 /min Carrington Wakefield [employer] [facility] Work Phone: 08-06-2016 09:42-0500 Weight 80.29 kg Carrington Wakefield [employer] [facility] Work Phone: 06-24-2016 13:47-0500 Body Temperature 97.9 [degF] Carrington Wakefield [employer] [facility] Work Phone: 06-24-2016 13:47-0500 Height 154.94 cm Carrington Wakefield [employer] [facility] Work Phone: 06-24-2016 13:47-0500 Weight 81.36 kg Carrington Wakefield [employer] [facility] Work Phone: 11-15-2015 11:19-0400 Heart rate 52 /min Carrington Wakefield [employer] [facility] Work Phone: 04-27-2013 10:39-0400 Heart rate 429 ms Carrington Wakefield [employer] [facility] Work Phone: 08-29-2007 16:00-0500 Body weight 68.04 kg [facility] 08-29-2007 16:00-0500 Diastolic blood pressure 70 mm[Hg] [facility] 08-29-2007 16:00-0500 Heart rate 60 /min [facility] 08-29-2007 16:00-0500 Systolic blood pressure 144 mm[Hg] [facility] Encounters Encounter Date Encounter Type Care Provider Facility Start: 02-12-2025 ambulatory Teresaben Boggs Facility:[facility] Start: 02-08-2025 ambulatory Teresa Malrenée Facility:[facility] Start: 02-06-2025 ambulatory Terseaben Boggs Facility:[facility] Start: 01-25-2025 End: 01-25-[address] Teresa Boggs DO Work Phone: -Cardiac Rehab Start: 01-25-2025 End: 01-25-[address] Dustin Lemus MD -Cardiac Rehab Work Phone: Start: 01-23-[address] Dustin Lemus MD -Cardiac Rehab Work Phone: Start: 01-18-2025 Non-patient / Non-visit Dr. Jaswant METCALF -[facility] Start: 01-18-2025 End: 01-18-[address] Teresa Boggs DO Work Phone: -Cardiovascular Services Start: 01-18-2025 End: 01-18-2025 Patient encounter procedure [employer] Carly Colin -Cardiovascular Services Work Phone: Start: 01-18-2025 End: 01-18-2025 ambulatory Teresa Boggs Facility:[facility] Start: 12-21-2024 End: 12-25-[address] Teresa Boggs DO Work Phone: -Cardiac Rehab Start: 12-21-2024 End: 12-25-[address] Dustin Lemus MD -Cardiac Rehab Work Phone: Start: 12-19-[address] Dustin Lemus MD -Cardiac Rehab Work Phone: Start: 12-15-2024 End: 12-15-[address] Teresa Boggs DO Work Phone: [facility] Work Phone: Start: 12-15-2024 End: 12-15-2024 Patient encounter procedure SHYAM Colin -Laboratory Work Phone: Start: 12-15-2024 End: 12-15-2024 Patient encounter procedure [employer] Carly Colin [facility] Work Phone: Start: 12-15-2024 End: 12-15-[address] Teresa Boggs DO Work Phone: [facility] Work Phone: Start: 12-15-2024 End: 12-15-2024 ambulatory [facility] Facility:[facility] Start: 12-12-[address] Dustin Lemus MD -Cardiac Rehab Work Phone: Start: 12-06-2024 ambulatory [facility] Facility:[facility] Start: 11-23-2024 End: 11-25-[address] Teresa Boggs DO Work Phone: [facility] Work Phone: Start: 11-23-2024 End: 11-25-[address] Dustin Lemus MD -Cardiac Rehab Work Phone: Start: 11-21-2024 Non-patient / Non-visit Dr. Jose perez DO -[facility] Start: 11-21-2024 End: 11-21-[address] Teresa Boggs DO Work Phone: [facility] Work Phone: Start: 11-21-2024 End: 11-21-2024 Patient encounter procedure SHYAM Colin -Pulmonary Services/Neurology Work Phone: Start: 11-21-2024 End: 11-21-2024 ambulatory Carly Colin Facility:[facility] Start: 11-03-2024 [facility] Start: 11-03-2024 Non-patient / Non-visit Dr. Jose perez DO -[facility] Start: 11-02-[address] Dustin Lemus MD -Cardiac Rehab Work Phone: Start: 10-31-[address] Dustin Lemus MD -Cardiac Rehab Work Phone: Start: 10-31-2024 End: 10-31-[address] Teresa Boggs DO Work Phone: [facility] Work Phone: Start: 10-31-2024 End: 10-31-2024 Patient encounter procedure SHYAM Colin -Pulmonary Services/Neurology Work Phone: Start: 10-31-2024 End: 10-31-2024 [facility] Start: 10-27-2024 End: 10-27-[address] Teresa Boggs DO Work Phone: [facility] Work Phone: Start: 10-27-2024 End: 10-27-[address] Teresa Boggs DO -Laboratory Work Phone: Start: 10-26-2024 End: 11-25-[address] Dustin Lemus MD -Cardiac Rehab Work Phone: Start: 10-26-[address] Dustin Lemus MD -Cardiac Rehab Work Phone: Start: 10-26-2024 End: 11-25-[address] Teresa Boggs DO Work Phone: [facility] Work Phone: Start: 10-18-2024 End: 10-18-2024 Patient encounter procedure SHYAM Colin [facility] Work Phone: Start: 10-18-2024 End: 10-18-2024 ambulatory Teresa Boggs Facility:[facility] Start: 10-17-2024 End: 10-25-2024 ambulatory Dustin Lemus Facility:[facility] Start: 10-17-2024 End: 10-25-[address] Dustin Lemus MD -Cardiac Rehab Work Phone: Start: 10-06-2024 ambulatory Teresa Boggs Facility:[facility] Start: 10-05-[address] Dustin Lemus MD -Cardiac Rehab Work Phone: Start: 10-03-2024 End: 10-03-[address] Teresa Boggs DO Work Phone: [facility] Work Phone: Start: 10-03-2024 End: 10-03-2024 Patient encounter procedure Ana ALVARADO -Laboratory Work Phone: Start: 10-03-2024 End: 10-03-2024 ambulatory Ana ALVARADO Facility:[facility] Start: 09-25-2024 End: 09-25-[address] Teresa Boggs DO Work Phone: [facility] Work Phone: Start: 09-25-2024 End: 09-25-[address] Dustin Lemus MD -Cardiac Rehab Work Phone: Start: 09-17-2024 Encounter for genera l adult medical examination without abnormal findings [facility] Start: 09-15-[address] Dustin Lemus MD -Cardiac Rehab Work Phone: Start: 09-08-2024 End: 09-08-[address] Teresa Boggs DO Work Phone: [facility] Work Phone: Start: 09-08-2024 End: 09-08-[address] Teresa Malys DO -Sleep Lab Work Phone: Start: 09-07-2024 End: 09-07-2024 Patient encounter procedure Ana Bailey PA -[facility] Work Phone: Start: 09-07-2024 End: 09-08-2024 [facility]ulatory [facility] Start: 09-05-2024 [facility] Start: 09-01-[address] Dustin Lemus MD -Cardiac Rehab Work Phone: Start: 08-25-2024 End: 08-25-2024 [facility] Start: 08-25-2024 End: 08-25-[address] Dustin Lemus MD -Cardiac Rehab Work Phone: Start: 08-23-2024 End: 08-23-[address] Teresa Boggs DO Work Phone: [facility] Work Phone: Start: 08-23-2024 End: 08-23-[address] Teresa Boggs DO -Sleep Lab Work Phone: Start: 08-23-2024 End: 08-23-2024 [facility]ulatory [facility] Start: 08-04-2024 End: 08-04-[address] Teresa Boggs DO -Laboratory Work Phone: Start: 08-04-2024 End: 08-04-2024 [facility]ulatory [facility] Start: 07-26-2024 End: 07-28-2024 [facility]ulatory [facility] Start: 07-26-2024 End: 07-28-[address] Dustin Lemus MD -Cardiac Rehab Work Phone: Start: 07-20-2024 End: 07-20-2024 Patient encounter procedure Quinton ALVARADO [facility] Work Phone: Start: 07-20-2024 End: 07-20-2024 ambulatory Teresa Malys Facility:[facility] Start: 06-26-2024 End: 06-27-2024 ambulatory Teresa Malys Facility:[facility] Start: 06-26-2024 End: 06-27-[address] Dustin Lemus MD -Cardiac Rehab Work Phone: Start: 05-22-2024 End: 05-22-[address] Dustin Lemus MD -Cardiac Rehab Work Phone: Start: 05-22-2024 End: 05-22-2024 ambulatory Teresa Malys Facility:[facility] Start: 05-10-2024 End: 05-10-2024 Patient encounter procedure Carrington OBYCE -[facility] Work Phone: Start: 05-10-2024 End: 05-10-2024 ambulatory Teresa Malys Facility:[facility] Start: 05-02-2024 End: 05-04-2024 Evaluation and management of inpatient Nataly Tovar MD Work Phone: [facility] Cardiac Thoracic Vascular Intensive Care Unit CTV ICU T1 Comment on above: Accelerating angina (HCC) (Primary Dx) Start: 05-01-2024 End: 05-01-2024 ambulatory Teresa Malys Facility:[facility] Start: 04-27-2024 ambulatory Teresa Malys Facility:[facility] Start: 04-18-2024 End: 04-18-2024 ambulatory Teresa Malys Facility:[facility] Start: 04-14-2024 ambulatory Teresa Malys Facility:[facility] Start: 04-14-2024 End: 04-14-2024 ambulatory Teresa Malys Facility:[facility] Start: 04-06-2024 End: 04-06-2024 ambulatory Teresa Malys Facility:[facility] Start: 04-05-2024 ambulatory Teresa Malys Facility:[facility] Start: 03-29-2024 ambulatory Teresa Malys Facility:[facility] Start: 03-28-2024 End: 03-28-2024 ambulatory Teresa Malys Facility:[facility] Start: 10-07-2023 End: 10-07-[address] Teresa Boggs Work Phone: [facility] Work Phone: Start: 10-07-2023 End: 10-07-[address] Teresa Boggs Work Phone: [facility]-Radiology, [facility] Work Phone: Start: 10-05-2023 End: 10-05-[address] Teresa Boggs Work Phone: [facility] Work Phone: Start: 10-05-2023 End: 10-05-[address] [facility] Start: 08-14-2023 End: 08-14-[address] Teresa Boggs Work Phone: [facility] Work Phone: Start: 08-14-2023 End: 08-14-[address] Teresa Boggs Work Phone: [facility]-Cat Scan, [facility] Work Phone: Start: 2023 End: [address] Teresa Boggs Work Phone: [facility] Work Phone: Start: 2023 End: [address] [facility] Start: 07-27-2023 End: 07-27-[address] Teresa Boggs Work Phone: [facility] Work Phone: Start: 07-27-2023 End: 07-27-[address] [facility] Start: 07-01-2023 End: 07-01-[address] Teresa Boggs Work Phone: [facility] Work Phone: Start: 07-01-2023 End: 07-01-[address] Teresa Boggs Work Phone: [facility] Work Phone: Start: 07-01-2023 End: 07-01-[address] Teresa Boggs Work Phone: [facility]-Laboratory Work Phone: Start: 01-07-2023 End: 01-07-[address] Teresa oBggs Work Phone: [facility] Work Phone: Start: 01-07-2023 End: 01-07-[address] Teresa Boggs Work Phone: [facility] Work Phone: Start: 12-31-2022 End: 12-31-[address] Teresa Boggs Work Phone: [facility] Work Phone: Start: 12-31-2022 End: 12-31-[address] Teresa Boggs Work Phone: [facility]-Outpatient Breast Imaging Work Phone: Start: 10-19-2022 Non-patient / Non-visit Dr. Marge Boggs Work Phone: [facility] Start: 10-19-2022 End: 10-19-2022 Admission to same day surgery center Dr. Teresa Boggs Work Phone: [facility]-Endoscopy Start: 10-19-2022 End: 10-19-[address] Teresa Boggs Work Phone: [facility] Work Phone: Start: 10-08-2022 Non-patient / Non-visit Dr. Marge Boggs Work Phone: [facility] Start: 09-22-2022 End: 09-22-[address] Teresa Boggs Work Phone: [facility] Work Phone: Start: 09-22-2022 End: 09-22-[address] Teresa Boggs Work Phone: [facility]-Laboratory Start: 08-21-2022 End: 08-21-[address] Teresa Boggs Work Phone: [facility] Start: 08-06-2022 End: 08-06-[address] Teresa Boggs Work Phone: [facility] Start: 07-30-2022 End: 07-30-[address] Teresa Boggs Work Phone: [facility] Work Phone: Start: 07-30-2022 End: 07-30-[address] Teresa Boggs Work Phone: [facility] Start: 07-30-[address] Teresa solares Work Phone: [facility]-Cardiovascula r Services Start: 07-21-2022 End: 07-21-[address] Teresa Boggs Work Phone: [facility] Start: 07-15-2022 Non-patient / Non-visit Dr. Marge Boggs Work Phone: [facility] Start: 07-15-2022 End: 07-15-2022 Admission to same day surgery center [facility] Bog[facility] Start: 07-15-2022 End: 07-15-[address] Teresa Boggs Work Phone: [facility] Work Phone: Start: 07-14-2022 Non-patient / Non-visit Dr. Marge Boggs Work Phone: [facility] Start: 07-10-2022 End: 07-10-[address] Teresa Boggs Work Phone: [facility] Work Phone: Start: 07-10-2022 End: 07-10-[address] Teresa Boggs Work Phone: [facility]-Laboratory Start: 06-08-2022 End: 06-08-[address] Teresa Boggs Work Phone: [facility] Start: 05-28-2022 End: 05-28-[address] Teresa Boggs Work Phone: [facility] Work Phone: Start: 05-28-2022 End: 05-28-[address] Teresa Boggs Work Phone: [facility]-Laboratory Start: 05-06-2022 End: 05-06-[address] Teresa Boggs Work Phone: [facility] Start: 03-31-2022 End: 03-31-[address] Teresa Boggs Work Phone: [facility] Work Phone: Start: 03-31-2022 End: 03-31-[address] Teresa Boggs Work Phone: [facility]-Laboratory Start: 02-24-2022 End: 02-24-2022 Emergency department patient visit Dr. Teresa Boggs Work Phone: [facility]-Emergency Department Start: 01-24-2022 End: 01-24-[address] Teresa Boggs Work Phone: [facility]-Laboratory Start: 01-13-2022 End: 01-13-[address] Teresa Boggs Work Phone: [facility]-Laboratory Start: 01-12-2022 End: 01-12-[address] Teresa Boggs Work Phone: [facility] Start: 12-26-2021 End: 12-26-2021 Patient encounter procedure [facility]-Outpatient Breast Imaging Start: 08-29-2007 End: 08-29-2007 Patient encounter procedure Moises (Res) Flavio [facility] Comment on above: MYALGIA AND MYOSITIS NOS; [...] 12 lds trcg only w/o i&r Ana Deanaimirey DO Work Phone: Start: 05-02-2024 End: 05-02-2024 Basic metabolic panel calcium total Denilson Macedo DO Work Phone: Start: 05-02-2024 Ecg routine [...] 05-02-2024 Cardiac catheterizat ion study Marce Last FIELD TEST ENGINEER - QA AUDITOR Work Phone: Start: 05-02-2024 Percutaneous coronar y intervention Marce Last FIELD TEST ENGINEER - QA AUDITOR Work Phone: Start: 05-02-2024 End: 05-02-2024 POCT [...] metabolic panel calcium total Marce B Puliafico FIELD TEST ENGINEER - QA AUDITOR Work Phone: Start: 05-02-2024 Lipid panel Denilson [...] artery stent placement Start: 02-02-2017 End: 02-02-2017 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 Work Phone: Start: 02-02-2017 End: 02-02-2017 Follow Up Appt 6 months Ana Bailey PA-C Work Phone: Start: 01-29-2017 End: 01-29-2017 *Hepatic Function Panel Ana Bailey PA-C Work Phone: Start: 01-29-2017 End: 01-29-2017 Lipid panel [AGGREGATE] Ana Bailey PA-C Work Phone: Start: 08-06-2016 End: 08-06-2016 Follow Up Appt 6 months Romel Joyner Start: 08-06-2016 End: 08-06-2016 MMRomel Lemus MD Start: 08-05-2016 End: 08-05-2016 *Hepatic Function Panel Aan Bailey PA-C Work Phone: Start: 08-05-2016 End: 08-05-2016 Lipid panel [AGGREGATE] Ana Bailey PA-C Work Phone: Start: 06-24-2016 End: 06-24-2016 Dietary management education, guidance, and counseling Carrington Wakefield NP Start: 04-15-2016 End: 05-11-2016 Follow Up Appt Other Carlos Peoples MD Start: 04-03-2016 End: 04-03-2016 AMMONIA REFRIGERATION WORKER Braeden Jones BRICKMASON APPRENTICE-C Start: 04-03-2016 End: 04-03-2016 Follow Up Appt 4 months Braeden Jones BRICKMASON APPRENTICE -C Start: 03-06-2016 End: 04-08-2016 *Hepatic Function Panel Ana Bailey PA-C Work Phone: Start: 03-06-2016 End: 04-08-2016 Lipid panel [AGGREGATE] Ana Bailey PA-C Work Phone: Start: 11-15-2015 End: 11-15-2015 AMMONIA REFRIGERATION WORKER Dustin Lemus MD Start: 11-15-2015 End: 12-09-2015 Echocardiography Dustin Lemus MD Start: 11-15-2015 End: 11-15-2015 Electrocardiogram, complete Dustin Lemus MD Start: 11-15-2015 End: 11-15-2015 Follow Up Appt 3 months Romel Joyner Start: 11-15-2015 End: 11-16-2015 Referral to marine electronics technician Dustin Lemus MD Start: 11-06-2015 Placement of stent i n coronary artery Mutilple coronary stents Carrington Wakefield CITRIX ADMINISTRATOR Start: 10-31-2015 End: 12-09-2015 Arterial exam Carlos Chavez MD Work Phone: Start: 10-31-2015 End: 10-31-2015 Nurse, Teaching, Wound Check (no charge) Dustin Lemus MD Start: 08-15-2015 End: 08-15-2015 Follow Up Appt 6 months Romel Joyner Start: 08-15-2015 End: 08-15-2015 MMM Dustin Lemus MD Start: 08-09-2015 End: 09-04-2015 *Hepatic Function Panel Romel Joyner Start: 08-09-2015 End: 09-04-2015 Lipid panel [AGGREGATE] Romel Joyner Start: 06-11-2015 End: 01-25-2017 HbA1c Teresa Boggs, DO Work Phone: Start: 06-11-2015 End: 01-25-2017 Hemoglobin glycosylated a1c Teresa Ben Malys, DO Work Phone: Start: 04-04-2015 End: 01-25-2017 Mammogram, screening Teresaben Boggs, DO Work Phone: Start: 03-14-2015 End: 03-14-2015 Colonoscopy Ana Bailey PA-C Work Phone: Start: 03-14-2015 End: 03-14-2015 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 Work Phone: Start: 03-14-2015 [...] PA-C Work Phone: Start: 02-06-2015 End: 02-06-2015 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 Work Phone: Start: 02-06-2015 [...] Start: 01-31-2015 End: 02-06-2015 *Hepatic Function Panel Romel Joyner Start: 01-31-2015 End: 02-06-2015 Lipid panel [AGGREGATE] Romel Joyner Start: 08-07-2014 End: 08-08-2014 Colonoscopy Dustin Lemus MD Start: 08-07-2014 End: 08-08-2014 Documentation of current medications Dustin Lemus MD Start: 08-07-2014 End: 08-07-2014 Follow Up Appt 6 months Romel Joyner Start: 08-07-2014 End: 08-07-2014 MMM Dustin Lemus MD Start: 07-29-2014 End: 08-03-2014 *Hepatic Function Panel Romel Joyner Start: 07-29-2014 End: 08-03-2014 Lipid panel [AGGREGATE] Romel Joyner Start: 07-24-2014 End: 07-24-2014 Urinalysis Carrington Wakefield CITRIX ADMINISTRATOR Start: 07-24-2014 End: 07-27-2014 *BMP Sun Ritchie MD Start: 07-24-2014 End: 07-26-2014 Urine culture, bacteria Sun Ritchie MD Start: 02-28-2014 End: 03-09-2014 *BMP Sun Ritchie MD Start: 02-28-2014 End: 03-09-2014 *UA - Urinalysis w/o Micro Sun Ritchie MD Start: 02-28-2014 End: 03-09-2014 CBC W Auto Differential panel - Blood Sun Ritchie MD Start: 02-28-2014 General examination of patient Health maintenance exam Carrington Wakefield CITRIX ADMINISTRATOR Start: 02-28-2014 End: 03-21-2014 Mammogram, Screening, both breasts Sun Ritchie MD Start: 02-28-2014 Screening mammography Screenin g mammogram NEC Carrington Wakefield CITRIX ADMINISTRATOR Start: 02-28-2014 End: 03-09-2014 Thyroid stimulating hormone (TSH) Sun Ritchie MD Start: 01-25-2014 End: 01-25-2014 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 Work Phone: Start: 01-25-2014 End: 01-25-2014 Follow Up Appt 6 months Ana Bailey PA-C Work Phone: Start: 01-25-2014 End: 01-25-2014 Follow Up Appt Other Ana Bailey PA-C Work Phone: Start: 12-26-2013 End: 02-01-2014 *Hepatic Function Panel Romel Joyner Start: 12-26-2013 End: 02-01-2014 Lipid panel [AGGREGATE] Romel Joyner Start: 07-28-2013 End: 07-28-2013 Follow Up Appt 6 months Romel Joyner Start: 07-28-2013 End: 07-28-2013 MMM Dustin [...] Start: 04-28-2013 End: 01-24-2014 *Hepatic Function Panel Romel Joyner Start: 04-28-2013 End: 01-24-2014 Lipid panel [AGGREGATE] Romel Joyner Start: 04-27-2013 End: 04-27-2013 *Hepatic Function Panel Ana Bailey PA-C Work Phone: Start: 04-27-2013 End: 04-27-2013 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 Work Phone: Start: 04-27-2013 [...] Chavez MD Work Phone: Start: 03-06-2013 Colonoscopy Moisesnina Montez b Start: 10-26-2012 End: 10-31-2012 *Hepatic Function Panel Romel Joyner Start: 10-26-2012 End: 11-01-2012 Echocardiography Dustin Lemsu MD Start: 10-26-2012 End: 10-26-2012 Follow Up Appt 6 months Romel Joyner Start: 10-26-2012 End: 10-31-2012 Lipid panel [AGGREGATE] Romel Joyner Start: 10-26-2012 End: 10-26-2012 MMM Dustin Lemus MD Start: 10-21-2007 History of coronary artery bypass grafting H/O coronary artery bypass surgery Carrington Wakefield CITRIX ADMINISTRATOR-C Comment on above: CABG x 2 VARGAS-LAD, S VG-OM2 10/21/2007 Start: 06-09-2005 Mammography Moises Melida b H/O: surgery History of basal cell [...] History of coronary artery stent placement Dr. Treesa Boggs Work Phone: Comment on above: GOX-QNI-Wcci RCA w/ 3.0 x 12 mm Promus Element 03/30/2013; KHY-XRW-Oiurkv RCA w/ 2.25 x 24 mm Synergy JATIN-Distal RCA-Prox/Ostium PDA w/ 2.25 x 16 mm Synergy 10/22/2015; [id number] w/ 3.5 x 38 mm Synergy MR Stent 03/25/2020 History of placement of stent for coronary artery disease History of coronary artery stent placement Carrington Wakefield CITRIX ADMINISTRATOR-C History of placement of stent for coronary artery disease History of coronary artery stent placement Ana ALVARADO Plan of Treatment Date Care Activity Detail Author Start: 04-16-2033 DTaP/Tdap/Td Vaccine s (4 - Td or Tdap) DTaP/Tdap/Td Vaccines (4 - Td or Tdap) [facility] Start: 05-02-2029 Lipid panel Lipid Panel [facility] Start: 05-02-2025 Diabetes mellitus screening Diabetes Screening [facility] Start: 05-02-2025 Thyroid stimulating hormone measurement TSH Level [facility] Start: 11-21-2024 Measurement of respi ratory function [facility] Start: 05-10-2024 Patient referral [facility] Work Phone: Start: 01-01-2024 Screening for malign ant neoplasm of breast Mammogram [facility] Start: 06-28-2023 Medicare Advantage A nnual Wellness Visit Medicare Advantage Annual Wellness Visit [facility] Start: 10-19-2022 Patient discharge [facility] Start: 07-15-2022 Adjt tis reargmt eye/nose/ear/lip 10.1-30.0 sqcm TIS TRNFR E/N/E/[id number] [facility] Start: 07-15-2022 Anes integ musc & nr v head neck&posterior trunk ANESTH HEAD/NECK/PTRUNK [facility] Start: 07-15-2022 Patient discharge [facility] Start: 02-24-2022 [facility] Work Phone: Start: 02-26-2021 Influenza vaccination INFLUENZA (Sea son Ended) [facility] Start: 01-11-2021 Pneumococcal Vaccine : 65+ Years (2 of 2 - PPSV23 or PCV20) Pneumococcal Vaccine: 65+ Years (2 of 2 - PPSV23 or PCV20) [employer] Start: 10-22-2020 LIPID SCREEN LIPID SCREEN [facility] Start: 2019 ADVANCE DIRECTIVE DISCUSSION ADVANCE DIRECTIVE DISCUSSION [facility] Start: 2019 BONE DENSITY BONE DENSITY [facility] Start: 2019 PNEUMOVAX AGE 65 AND OVER WITH 5YR LOOKBACK (#1) PNEUMOVAX AGE 65 AND OVER WITH 5YR LOOKBACK (#1) [facility] Start: 10-23-2018 DIABETES SCREEN DIABETES SCREEN [facility] Start: 03-06-2018 Screening for malign ant neoplasm of colon [facility] Start: 08-12-2017 End: 08-12-2017 Appointment Appointment [facility] Work Phone: Start: 02-03-2017 End: 01-29-2017 *Hepatic Function Panel *Hepatic Function Panel [facility] Work Phone: Start: 02-03-2017 End: 01-29-2017 Lipid panel [AGGREGATE] *Lipid Profile CC PCP [facility] Work Phone: Start: 02-02-2017 End: 02-02-2017 Appointment Appointment [facility] Work Phone: Start: 02-02-2017 End: 02-02-2017 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 [facility] Work Phone: Start: 02-02-2017 End: 02-02-2017 Follow Up Appt 6 months Follow Up Appt 6 months [facility] Work Phone: Start: 10-07-2016 End: 08-05-2016 *Hepatic Function Panel *Hepatic Function Panel [facility] Work Phone: Start: 10-07-2016 End: 08-05-2016 Lipid panel [AGGREGATE] *Lipid Profile CC PCP [facility] Work Phone: Start: 08-06-2016 End: 08-06-2016 Follow Up Appt 6 months Follow Up Appt 6 months [facility] Work Phone: Start: 08-06-2016 End: 08-06-2016 MMM MMM [facility] Work Phone: Start: 06-24-2016 End: 06-29-2016 Follow Up Appt 6 months Follow Up Appt 6 months [facility] Work Phone: Start: 06-24-2016 End: 06-30-2016 Primary Care Physician Primary Care Physician Teresa Boggs DO, [facility], [address] [place] [address], [place], [address] [facility] Work Phone: Start: 04-15-2016 End: 05-11-2016 Follow Up Appt Other Follow Up Appt Other [facility] Work Phone: Start: 04-03-2016 End: 04-03-2016 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 [facility] Work Phone: Start: 04-03-2016 End: 04-03-2016 Follow Up Appt 4 months Follow Up Appt 4 months [facility] Work Phone: Start: 03-06-2016 End: 04-08-2016 *Hepatic Function Panel *Hepatic Function Panel [facility] Work Phone: Start: 03-06-2016 End: 04-08-2016 Lipid panel [AGGREGATE] *Lipid Profile CC PCP [facility] Work Phone: Start: 11-15-2015 End: 01-02-2016 Cardiac Rehab Cardiac Rehab [address] [place], [address] [email or web address] Work Phone: Start: 11-15-2015 End: 11-15-2015 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 [email or web address] Work Phone: Start: 11-15-2015 End: 11-15-2015 Echocardiography Echocardiogram (complete) [email or web address] Work Phone: Start: 11-15-2015 End: 11-15-2015 Electrocardiogram, complete EKG (In office) [email or web address] Work Phone: Start: 11-15-2015 End: 11-15-2015 Follow Up Appt 3 months Follow Up Appt 3 months [employer] Work Phone: Start: 10-31-2015 End: 12-09-2015 Arterial exam Arterial exam [email or web address] Work Phone: Start: 08-15-2015 End: 08-15-2015 Follow Up Appt 6 months Follow Up Appt 6 months [employer] Work Phone: Start: 08-15-2015 End: 08-15-2015 MMM MMM [email or web address] Work Phone: Start: 08-09-2015 End: 09-04-2015 *Hepatic Function Panel *Hepatic Function Panel [employer] Phone: Start: 08-09-2015 End: 09-04-2015 Lipid panel [AGGREGATE] *Lipid Profile CC PCP [email or web address] Work Phone: Start: 06-11-2015 End: 01-25-2017 HbA1c HGB A1C (Office) [email or web address] Work Phone: Start: 05-19-2015 Urine microalbumin profile DTAP,TDAP ,TD (2 - Tdap) [facility] Start: 04-04-2015 End: 01-25-2017 Mammogram, screening Mammogram, Screening, both breasts [email or web address] Work Phone: Start: 03-14-2015 End: 03-14-2015 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 [email or web address] Work Phone: Start: 03-14-2015 End: 03-14-2015 Follow Up Appt 6 months Follow Up Appt 6 months [employer] Work Phone: Start: 02-06-2015 End: 02-06-2015 *BMP *BMP [email or web address] Work Phone: Start: 02-06-2015 End: 02-06-2015 *CBC with Differential *CBC with Differential [email or web address] Work Phone: Start: 02-06-2015 End: 02-06-2015 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 [email or web address] Work Phone: Start: 02-06-2015 End: 02-06-2015 Electrocardiogram, complete EKG (In office) [email or web address] Work Phone: Start: 02-06-2015 End: 02-06-2015 Follow Up Appt 1 month Follow Up Appt 1 month [email or web address] Work Phone: Start: 02-06-2015 End: 02-06-2015 Follow Up Appt 6 months Follow Up Appt 6 months [employer] Work Phone: Start: 02-06-2015 End: 02-06-2015 MMM MMM [email or web address] Work Phone: Start: 02-06-2015 End: 02-06-2015 Nuclear stress test -Lexiscan Nuclear stress test -Lexiscan [email or web address] Work Phone: Start: 02-06-2015 End: 02-06-2015 Thyroid stimulating hormone (TSH) *TSH [email or web address] Work Phone: Start: 02-06-2015 End: 02-06-2015 Thyroxine (T4) *T4 (Total) [email or web address] Work Phone: Start: 01-31-2015 End: 02-06-2015 *Hepatic Function Panel *Hepatic Function Panel [employer] Work Phone: Start: 01-31-2015 End: 02-06-2015 Lipid panel [AGGREGATE] *Lipid Profile CC PCP [email or web address] Work Phone: Start: 08-07-2014 End: 08-07-2014 Follow Up Appt 6 months Follow Up Appt 6 months [employer] Work Phone: Start: 08-07-2014 End: 08-07-2014 MMM MMM [email or web address] Work Phone: Start: 07-29-2014 End: 08-03-2014 *Hepatic Function Panel *Hepatic Function Panel [employer] Work Phone: Start: 07-29-2014 End: 08-03-2014 Lipid panel [AGGREGATE] *Lipid Profile CC PCP [facility] [facility] [employer] Work Phone: Start: 07-24-2014 End: 07-27-2014 *BMP *BMP [facility] [employer] Work Phone: Start: 07-24-2014 End: 07-26-2014 Urine culture, bacteria *CUUR - Culture, Urine ([place] Count) [facility] [employer] Work Phone: Start: 02-28-2014 End: 03-09-2014 *BMP *BMP [facility] [employer] Work Phone: Start: 02-28-2014 End: 03-09-2014 *UA - Urinalysis w/o Micro *UA - Urinalysis w/o Micro [facility] [employer] Work Phone: Start: 02-28-2014 End: 03-09-2014 CBC W Auto Differential panel - Blood *CBC without Diff [facility] [employer] Work Phone: Start: 02-28-2014 End: 03-21-2014 Mammogram, Screening, both breasts Mammogram, Screening, both breasts [facility] [employer] Work Phone: Start: 02-28-2014 End: 03-09-2014 Thyroid stimulating hormone (TSH) *TSH [facility] [employer] Work Phone: Start: 01-25-2014 End: 01-25-2014 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 [email or web address] Work Phone: Start: 01-25-2014 End: 01-25-2014 Follow Up Appt 6 months Follow Up Appt 6 months [employer] Work Phone: Start: 01-25-2014 End: 01-25-2014 Follow Up Appt Other Follow Up Appt Other [email or web address] Work Phone: Start: 12-26-2013 End: 02-01-2014 *Hepatic Function Panel *Hepatic Function Panel [employer] Work Phone: Start: 12-26-2013 End: 02-01-2014 Lipid panel [AGGREGATE] *Lipid Profile CC PCP [email or web address] Work Phone: Start: 07-28-2013 End: 07-28-2013 Follow Up Appt 6 months Follow Up Appt 6 months [employer] Work Phone: Start: 07-28-2013 End: 07-28-2013 MMM MMM [email or web address] Work Phone: Start: 07-25-2013 End: 07-26-2013 *NEFTALY - Fungus, NEFTALY Prep *NEFTALY - Fungus, NEFTALY Prep [employer] Work Phone: Start: 07-25-2013 End: 07-26-2013 Occult blood, feces Occult Stools (Office) [email or web address] Work Phone: Start: 07-25-2013 End: 07-25-2013 Transvaginal us, non-ob US Transvaginal [email or web address] Work Phone: Start: 07-25-2013 End: 07-26-2013 Trichomonas vaginalis [Presence] in Unspecified specimen by Wet preparation *WP - Wet Prep - Trichomonas [email or web address] Work Phone: Start: 07-25-2013 End: 07-26-2013 Urinalysis nonauto w/o scope UA Dipstick (Office) [email or web address] Work Phone: Start: 07-25-2013 End: 07-26-2013 Urine culture, bacteria *CUUR - Culture, Urine ([place] Count) [email or web address] Work Phone: Start: 07-25-2013 End: 07-26-2013 Other Other [facility] Work Phone: Start: 05-24-2013 End: 07-26-2013 Rheumatology Referral Rheumatology Referral Jeb Montero MD, [address] [place], [address] [facility] Work Phone: Start: 04-28-2013 End: 01-24-2014 *Hepatic Function Panel *Hepatic Function Panel [facility] Work Phone: Start: 04-28-2013 End: 01-24-2014 Lipid panel [AGGREGATE] *Lipid Profile [facility] Work Phone: Start: 04-27-2013 End: 04-27-2013 *Hepatic Function Panel *Hepatic Function Panel [facility] Work Phone: Start: 04-27-2013 End: 04-27-2013 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 [facility] Work Phone: Start: 04-27-2013 End: 04-27-2013 Follow Up Appt 3 months Follow Up Appt 3 months [facility] Work Phone: Start: 04-27-2013 End: 04-27-2013 Lipid panel [AGGREGATE] *Lipid Profile CC PCP [facility] Work Phone: Start: 04-12-2013 End: 04-13-2013 Cardiac Rehab Cardiac Rehab [facility] Work Phone: Start: 03-23-2013 End: 03-24-2013 Left Heart Cath W/Grafts Left Heart Cath W/Grafts [facility] Work Phone: Start: 10-26-2012 End: 10-31-2012 *Hepatic Function Panel *Hepatic Function Panel [facility] Work Phone: Start: 10-26-2012 End: 10-26-2012 Echocardiography Echocardiogram (complete) [facility] Work Phone: Start: 10-26-2012 End: 10-26-2012 Follow Up Appt 6 months Follow Up Appt 6 months [facility] Work Phone: Start: 10-26-2012 End: 10-31-2012 Lipid panel [AGGREGATE] *Lipid Profile [facility] Work Phone: Start: 10-26-2012 End: 10-26-2012 MMM MMM [facility] Work Phone: Start: 06-09-2006 Mammography MAMMOGRAM [facility] Start: 2004 Screening for malign ant neoplasm of colon [facility] Start: 2004 SHINGRIX VACCINE (1 of 2) CARROLL GRIX VACCINE (1 of 2) [facility] Start: 1972 Hepatitis C screening Hepatitis C Sc [facility] Start: 1966 Adult depression scr eening assessment DEPRESSION SCREENING [facility] Start: 1966 COVID-19 VACCINE (1) COVID-19 VACCIN E (1) [facility] Start: 1966 Depression Monitoring Depression Mon [facility] Start: 1954 Screening for malign ant neoplasm of colon [facility] Start: 1954 Screening for osteoporosis Bone Dens ity Scan [facility] Basic metabolic 2000 panel - Serum or Plasma BASIC METABOLIC PNL Lab Routine Benign Hypertension Ordered: 08/29/2007 [facility] Comment on above: Ordered: 08/29/2007 CBC panel - Blood by Automated count CBC + PLT Lab Routine Benign Hypertension Ordered: 08/29/2007 [facility] Comment on above: Ordered: 08/29/2007 CBC W Auto Different ial panel - Blood [facility] Colonoscopy [facility] LIPID PANEL BASIC LIPID PANEL BA SIC Lab Routine Hypothyroidism Nos Ordered: 08/29/2007 [facility] Comment on above: Ordered: 08/29/2007 Patient Education [facility] Work Phone: Patient referral [facility] Work Phone: Radionuclide imaging of perfusion of myocardium under exercise stress [facility] Thyrotropin [Units/v olume] in Serum or Plasma TSH BLD Lab Routine Hypothyroidism Nos Ordered: 08/29/2007 [facility] Comment on above: Ordered: 08/29/2007 US Carotid arteries [facility] [place]izations Immunization Date Immunization Notes Care Provider Dneisse soliz 09-18-2020 Covid (Moderna) [facility] 08-21-2020 Covid (Moderna) [facility] 02-15-2020 influenza, injectable, quadrivalent, preservative free Dr. Teresa Boggs Work Phone: [facility] 02-15-2020 influenza, seasonal, injectable [facility] 02-15-2020 pneumococcal conjugate vaccine, 13 valent [facility] 03-12-2019 influenza, injectable, quadrivalent, preservative free Dr. Teresa Boggs Work Phone: [facility] 03-12-2019 influenza, seasonal, injectable [facility] 03-28-2017 Influenza virus vaccine [facility] 02-03-2014 tetanus and diphtheria toxoids, adsorbed, preservative free, for adult use (2 Lf of tetanus toxoid and 2 Lf of diphtheria toxoid) [facility] 05-19-2005 diphtheria and tetanus toxoids, adsorbed for pediatric use [facility] 05-06-2005 influenza virus vaccine, unspecified formulation [facility] 04-24-2003 influenza virus vaccine, unspecified formulation [facility] NEGATED: Highlighted row has not occurred!05-04-2024 Seasonal trivalent influenza vaccine, adjuvanted, preservative free Nataly Tovar MD Work Phone: [facility] [employer] Comment on above: Deferred: Other - pt already had flu vaccine Payers Date Payer Category Payer Self-pay [id number] 2024 Medicare HMO UHC DUAL COMPLET E Member Subscriber Plan / Payer (Effective 2024-Present) Name: Nissa Trotter Relation to Subscriber: Self Name: Nissa Trotter Payer ID: [id number] (NAIC) Group ID: [id number] Type: Medicare HMO Address: [place] [id number] 2024 Medicaid [id number] 2024 Medicare [id number] 2014 Medicare [id number] 2013 Unknown [employer] [id number] 2007 Unknown [facility] EMPLOY H [facility] / JAIN [id number] 2007-2008 PPO [id number] Medicaid [id number] Medicare [id number] Unknown [employer] [id number] Unknown [id number] 2.0.1.375380.3.579.2.462 Unknown [id number] 2.0.1.375555.3.579.2.462 Unknown [id number] 2.840.1.745122.3.579.2.462 Unknown [id number] 2.840.1.418707.3.579.2.462 Unknown [id number] 2.840.1.394268.3.579.2.462 Unknown [id number] 2.840.1.044834.3.579.2.462 Unknown [id number] 2.840.1.387088.3.579.2.462 Unknown [id number] 2.840.1.490241.3.579.2.462 Unknown [id number] 2.840.1.558948.3.579.2.462 Unknown [id number] 2.840.1.979617.3.579.2.462 Unknown [id number] 2.840.1.829453.3.579.2.462 Unknown [id number] 2.840.1.465672.3.579.2.462 Unknown 1990 2.840.1.428958.3.579.2.462 Unknown [id number] 2.840.1.582764.3.579.2.462 Unknown [id number] 2.840.1.472012.3.579.2.462 Unknown [id number] 2.840.1.539102.3.579.2.462 Unknown [id number] 2.840.1.761465.3.579.2.462 Unknown [id number] .840.1.506312.3.579.2.462 Unknown [id number] 2.840.1.737151.3.579.2.462 Unknown [id number] .840.1.482959.3.579.2.462 Unknown [id number] 2.840.1.802729.3.579.2.462 Unknown [id number] .840.1.148822.3.579.2.462 Unknown [id number] .840.1.838412.3.579.2.462 Unknown [id number] .840.1.980129.3.579.2.462 Unknown [id number] 2.840.1.362451.3.579.2.462 Unknown [id number] 2.840.1.699592.3.579.2.462 Unknown [id number] 2.16.840.1.458499.3.579.2.462 Unknown [id number] 2.16.840.1.041446.3.579.2.462 Unknown [id number] 2.16.840.1.155715.3.579.2.462 Unknown [id number] 2.16.840.1.779831.3.579.2.462 Unknown [id number] 2.16.840.1.941734.3.579.2.462 Unknown [id number] 2.16.840.1.604788.3.579.2.462 Unknown [id number] 2.16.840.1.051151.3.579.2.462 Unknown [id number] 2.16.840.1.236428.3.579.2.462 Unknown [id number] 2.16840.1.636509.3.579.2.462 Unknown [id number] 2.16.840.1.282057.3.579.2.462 Unknown [id number] 2.16.840.1.548414.3.579.2.462 Unknown [id number] 2.16.840.1.446347.3.579.2.462 Unknown [id number] 2.16840.1.271256.3.579.2.462 Unknown [id number] 2.16840.1.786030.3.579.2.462 Unknown [id number] 2.16840.1.080587.3.579.2.462 Unknown [id number] 2.16840.1.942617.3.579.2.462 Unknown [id number] 2.16840.1.142573.3.579.2.462 Social History Date Type Detail Facility Start: 06-06-2007 End: 10-10-2024 Tobacco smoking status [facility] Former smoker [facility] End: 06-07-1998 History of tobacco use Current smoker [facility] Start: 06-06-2007 Alcohol intake Current non-dr inspector subassemblies of alcohol (finding) [facility] Start: 05-28-2007 Alcohol Comment stopped 19yrs ago Cl [facility] Start: 1955 Sex Assigned At Not on file [facility] Start: 07-10-2021 End: 07-01-2023 Tobacco smoking status NHIS Unknown if ever smoked [facility] Start: 11-21-2020 None [facility] Start: 11-03-2019 Friends [facility] Start: 11-21-2020 Non-smoker [facility] Start: 1955 Sex Assigned At Female [facility] End: 06-28-1974 History of tobacco use Cigarette Smoker [facility] Start: 05-02-2024 Tobacco use and exposure Smoke less tobacco non-user [facility] Start: 05-03-2024 Alcoholic beverage intake Lifetime non-drinker (finding) [facility] Start: 05-02-2024 History of Social function [facility] Start: 05-02-2024 B1300 Health Literacy [facility] [employer] How often do you nee d to have someone help you when you read instructions, pamphlets, or other written material from your doctor or pharmacy [SILS] Never [facility] Has the [employer], [employer], [employer], or [employer] threatened to shut off services in your home in past 12Mo No [facility] [employer] Do you belong to any clubs or organizations such as mormonism groups, unions, fraternal or athletic groups, or school groups? Yes [facility] Are you now , , , , never or living with a partner? Never [facility] How often to you hav e a drink containing alcohol? Never [facility] Do you feel stress - tense, restless, nervous, or anxious, or unable to sleep at night because your mind is troubled all the time - these days [OSQ] Only a little [facility] (I/We) worried wheth er (my/our) food would run out before (I/we) got money to buy more. Never true [facility] [employer] Start: 09-03-2024 End: 10-06-2024 Sex Female (finding) [facility] NEGATED: Highlighted row [facility] Medical Equipment Procedure Code Equipment Code Equipment Origin al Text Equipment Identifier Dates Stent Cor Skyp[employer] nt [id number] - [id number] Start: 05-02-2024 Stent Cor Sk[employer] [id number] - [id number] Start: 05-02-2024 Stent Cor Sk[employer] [id number] - [id number] Start: 05-02-2024 Stent Cor Sk[employer] [id number] - [id number] Start: 05-02-2024 Device [employer] - [id number] Start: 05-02-2024 Goals Date Patient Goal Desired Activity /State Mental Status Date Assessment Result Facility 10-19-2022 Cognitive function Voice/Name [facility] Work Phone: 07-15-2022 Cognitive function Voice/Name [facility] Work Phone: 02-24-2022 Cognitive function Level Of Cons ciousness Awake;Alert;Appropriate;Follow s Commands [facility] Work Phone: Clinical Notes 08-29-2007 to 11-03-2024 Note Date & Type Note Facility 11-03-2024 Procedure note [facility] 10-18-2024 Evaluation note Diagnosis Onset Date Resolution Shortness of breath acute October 18, 2024 1:51pm ELODIA (obstructive sleep apnea) chronic October 18, 2024 1:51pm Shortness of breath acute December 15, 2024 8:43am ELODIA (obstructive sleep apnea) chronic December 15, 2024 8:43am [facility] Work Phone: 1(511) 683-826603-13-2025 Evaluation note* Diagnosis Onset Date Resolution Status [...] of breath acute October 18, 2024 1:51pm [facility] Work Phone: 1(775) 250-148703-13-2025 Evaluation note* Diagnosis Onset Date Resolution Status [...] of breath acute December 15, 2024 8:43am [facility] Work Phone: 1(485) 572-518703-13-2025 Evaluation note* Diagnosis Onset Date Resolution Status [...] apnea) chroni c December 15, 2024 8:43am [facility] Work Phone: 1(698) 425-569701-23-2025 Evaluation note* Diagnosis Onset Date Resolution Status [...] 07, 2024 7:52am Hyperlipidemia chronic August 7:52am [facility] Work Phone: 1(898) 241-698201-23-2025 Evaluation note* Diagnosis Onset Date Resolution Status [...] of breath acute October 18, 2024 1:51pm [facility] Work Phone: 1(488) 852-838011-13-2024 Evaluation note* Diagnosis Onset Date Resolution Status Admit Date Bilateral carotid bruits chronic May 10, 2024 3:38pm Chronic diastolic (congestive) heart failure chronic 2023 3:38pm Essential (primary) hypertension chronic May 10, 2 024 3:38pm H/O coronary artery bypass surgery October 21, 2007May 10, 2024 3:38pm History of coronary artery stent placement May 10, 2 024 3:38pm Hyperlipidemia chronic April 282023 3:38pm Acute bronchitis acute July 20, 2024 9:05am [facility] Work Phone: 1(874) 972-878711-07-2024 Note Attestation signed by David Patel MD at 05/04/2024 2:12 PM I personally saw and evaluated this patient prior to discharge. I examined the patient, reviewed the meds and the follow-up information. I was personally involved in, and initiated the medical therapy to be used at discharge and the follow-up to be done. David Patel MD, PhD Advanced Heart Failure Cardiology [facility] [place] 2:12 PM 05/04/24 [facility] Cardiology Discharge Summary Name: Nissa Trotter Date [...] a 68 y.o. female who presented to [facility] on 05/02 after a cardiac cath at [facility] for consideration of PCI. The patient [...] Your Medications These medications were sent to [facility] [address] [place] [address] [place] [address] Hours: Wednesday to Wednesday 10 am to [...] Body mass index is (more content not included)...[facility] 05-04-2024 Hospital course Narrative* Jeison Sheriff MD - 05/04/2024 1:13 PM EST Images from the original note were not included. [facility] [place] [facility] Cardiology Discharge Summary Name: Nissa Trotter Date [...] a 68 y.o. female who presented to [facility] on 05/02 after a cardiac cath at [facility] for consideration of PCI. The patient [...] Your Medications These medications were sent to [facility] [address] [place] [address] Hours: Wednesday to Wednesday 10 am to [...] National Registry/ Accreditation Requirements/ Other DC information. [facility] Total time Discharge activity. [x]30 min or less []Greater than 30 min Jeison Sheriff MD Parts of this note may be generated using a voice recognition software program. Please excuse any vascular manager errors that may have occurred. This note [...] Patel MD, PhD Advanced Heart Failure Cardiology [facility]. [facility] [place] 2:12 PM 05/04/24 documented in this [facility]07[facility]24 Miscellaneous Notes* Individualized Overall Plan of Care Note - ELANA Jason CNP - 05/04/2024 11:28 AM EST Discharge instructions, medications, restrictions, activity, diet, cardiac rehab and follow-up reviewed and patient verbalized understanding. She will utilize [facility] for her home-going Rx and was instructed [...] Limits Permission given to speak with patient employee's representative/caregiver as indicated: Yes Confirmation of Payer with patient/family: Yes Payer Name: [facility] : No Confirmation of Primary Care [...] with: Alone Support Systems: Children, Family members, Gnosticist/nathaniel community Activities of Daily Living Ambulation: Independent Bathing/Dressing: Independent Elimination/Continence/Toileting: Independent Feeding: Independent Who Assists with Activities of Daily Living: Instrumental Activities of Daily Living Prescription Coverage: Yes Pharmacy Used: [facility] Medication Management: Mail order Who assists [...] Mcnair MD - 05/02/2024 3:49 PM EST [facility] Cardiac Catheterization Laboratory Post-Procedure Note Patient Name: Nissa Trotter Date: 05/02/2024, 3:49 PM Pre-Operative Diagnosis: Multivessel CAD Post-Operative Diagnosis: Multivessel CAD Procedure: [facility] Coronary Angiography IVUS PCI Findings: Successful [...] Note CM attempted IA. Patient OOR for lab systems analyst procedure. CM will attempt again as able. [...] fall injury Outcome: Progressing documented in this [facility] Note* Individualized Overall Plan of Care Note - ELANA Jason CNP - 05/04/2024 11:28 AM EST Discharge instructions, medications, restrictions, activity, diet, cardiac rehab and follow-up reviewed and patient verbalized understanding. She will utilize [facility]sem-[facility]-Z[facility] for her home-going Rx and was instructed to notify office with any difficulty obtaining Rx or if this becomes a financial burden. She was also informed to notify the office in the future if anyone asks her to hold or stop either ASA or ticagrelor (Brilinta) 90mg BID. [id number] Note* Individualized Overall Plan of Care Note - ELANA Jason CNP - 05/04/2024 11:28 AM EST Discharge instructions, medications, restrictions, activity, diet, cardiac rehab and follow-up reviewed and patient verbalized understanding. She will utilize [facility] for her home-going Rx and was instructed to notify office with any difficulty obtaining Rx or if this becomes a financial burden. She was also informed to notify the office in the future if anyone asks her to hold or stop either ASA or ticagrelor (Brilinta) 90mg BID. [place] [id number] History of Present illness Narrative* Wanda Hernandez - 05/04/2024 9:53 AM EST Nutrition rescreen completed. Chart reviewed. Patient to be monitored and followed by the diet controls technician. MIGUE Matos * Jeison Sheriff MD - 05/04/2024 6:47 AM EST Images from the original note were not included. [facility] CCU PROGRESS NOTE Patient Name: Nissa Trotter : 1955 Subjective: Hospital Course: This 68-year-old female with a past medical history significant for CAD s/p CABG [2007], previous cardiac catheterization with PCI in , ELODIA, HLD, HTN who presented to [facility] on05/02 after a cardiac cath at [facility] for consideration of PCI. The patient [...] QT Interval 347 QTC Interval 412 P Inglis 52 QRS Inglis -6 T Wave Inglis 62 OK Interval 129 Impression Sinus rhythm Probable left [...] SVG-OM2 grafts are both chronically occluded. Patent [place] dominant RCA with mild disease. Successful IVUS [...] CABG [2007], previous cardiac cath w/ PCI [] Post-procedure troponin elevation -Patient presents from [place] for PCI evaluation s/p heart cath. -Multivessel [...] and electronic medical record. I reviewed the Lead Sewage Plant Operator's documentation, and discussed the patient with the Lead Sewage Plant Operator. I agree with the Lead Sewage Plant Operator's medical decision making and have edited the [...] Patel MD, PhD Advanced Heart Failure Cardiology [facility]. [facility] [place] 2:02 PM 05/04/24 * Stacey Coello, FIELD TEST ENGINEER - QA AUDITOR - 05/03/2024 9:40 AM EST [facility] V[facility] Interventional Cardiology Progress Note CC: s/p multivessel [...] cardiac rehab as outpatient. Follow up with [facility]. Educated on taking aspirin and brilinta [...] Affect: Mood normal. Laboratory Tests: Recent Labs 05/02/2433405/02/24200005/03/248 NA 138 137 135 K 3.6 3.8 4.9 CL 106 107 108* CO2 17* 17* 21* BUN 15 14 15 CREATININE 0.77 0.93 0.81 Recent Labs 05/02/24 03305/02/24 1735 05/02/24200705/03/24314 WBC 8.6 10.0 -- 11.9* HGB 13.6 [...] SVG-OM2 grafts are both chronically occluded. Patent [place] dominant RCA with mild disease. Successful IVUS [...] high intensity statin therapy. Long-term follow-up with [place] [facility]. Cardiac Tests: ECG: IMPRESSION: Sinus rhythm Atrial premature complex Low voltage, extremity leads Telemetry findings reviewed: SR 70 with PVC EF BP Date Value Ref Range Status 05/02/2024 59 55 - 100 % Final ELANA Neumann CNP Date Of Service 05/03/2024 * Jeison Sheriff MD - 05/03/2024 7:15 AM EST Images from the original note were not included. [facility] CCU PROGRESS NOTE Patient Name: Nissa Trotter : 1955 Subjective: Hospital Course: This 68-year-old female with a past medical history significant for CAD s/p CABG [2007], previous cardiac catheterization with PCI in , ELODIA, HLD, HTN who presented to [facility] on05/02 after a cardiac cath at [facility] for consideration of PCI. The patient [...] QT Interval 407 QTC Interval 423 P Inglis 55 QRS Inglis -7 T Wave Inglis 46 OK Interval 148 Impression Sinus rhythm Atrial premature [...] SVG-OM2 grafts are both chronically occluded. Patent [place] dominant RCA with mild disease. Successful IVUS [...] cath w/ PCI [2015,] -Patient presents from [place] for PCI evaluation s/p heart cath. -Multivessel [...] and electronic medical record. I reviewed the Lead Sewage Plant Operator's documentation, and discussed the patient with the Lead Sewage Plant Operator. I agree with the Lead Sewage Plant Operator's medical decision making and have edited the [...] Patel MD, PhD Advanced Heart Failure Cardiology [facility]. [facility] [place] 2:11 PM 05/03/24 * Jeison Sheriff MD - 05/02/2024 4:04 PM EST Patient transferred to CCU s/p multivessel PCI. She denies chest pain/pressure, palpitations, shortness of breath, or any other acute concerns at this time. Vitals are stable. Will hold isosorbide mononitrate. Start on rosuvastatin 40 mg nightly. Continue on DAPT. Will monitor for any acute changes. documented [facility]11[facility]07[facility] Hospital Discharge instructions* Discharge Instructions* Krysten Polanco APRN - QA AUDITOR - 05/04/2024 9:22 AM EST Call your doctor with any medication questions or if you notice any side effects from your medications. If you are unable to fill your medications, please call your Field Support Technician immediately. The office number is located with [...] for three days. GIVE PCI PACKET (FROM FOREST AND CONSERVATION WORKER) TO PATIENT Give Coronary Artery Discharge Book. [...] 05/04/2024 11:28 AM EST documented in this [facility]07[facility] Nurse Note* Noreen Hunt RN - 05/04/2024 7:18 AM EST Wound Care consulted for Pressure Injury Prevention. Pt's Lake= 20, pt is no longer at risk. Skin Care Precaution order set in place. Will continue to follow peripherally. Please voicera or secure chat message with any questions. Noreen Hunt RN [id number] Nurse Note* Noreen Hunt RN - 05/04/2024 7:18 AM EST Wound Care consulted for Pressure Injury Prevention. Pt's Lake= 20, pt is no longer at risk. Skin Care Precaution order set in place. Will continue to follow peripherally. Please voicera or secure chat message with any questions. Noreen Hunt RN documented [facility]11-06-2024 Note* Care Coordination - Skye Real RN - 05/03/2024 3:34 PM EST Care Managment Initial Assessment Date: 05/03/2024 Patient Name: Nissa Trotter : 1955 Patient Information Source of Information: Patient Cognition/Language: WFL - Within Functional Limits Permission given to speak with patient employee's representative/caregiver as indicated: Yes Confirmation of Payer with patient/family: Yes Payer Name: [facility] : No Confirmation of Primary Care [...] with: Alone Support Systems: Children, Family members, Gnosticist/nathaniel community Activities of Daily Living Ambulation: Independent Bathing/Dressing: Independent Elimination/Continence/Toileting: Independent Feeding: Independent Who Assists with Activities of Daily Living: Instrumental Activities of Daily Living Prescription Coverage: Yes Pharmacy Used: [facility] Medication Management: Mail order Who assists [...] Referral for: Additional Information: Patient admitted to [facility] ICU s/p multivessel PCI. Spoke with patient at bedside, introduced self and role. Patient from home with alone, is independent, has PCP and prescription coverage, will have a ride home and denies discharge needs. Skye Real RN [id number] Note* Care Coordination - Skye Real RN - 05/03/2024 3:34 PM EST Care Managment Initial Assessment Date: 05/03/2024 Patient Name: Nissa Trotter : 1955 Patient Information Source of Information: Patient Cognition/Language: WFL - Within Functional Limits Permission given to speak with patient employee's representative/caregiver as indicated: Yes Confirmation of Payer with patient/family: Yes Payer Name: [facility] : No Confirmation of Primary Care [...] with: Alone Support Systems: Children, Family members, Gnosticist/nathaniel community Activities of Daily Living Ambulation: Independent Bathing/Dressing: Independent Elimination/Continence/Toileting: Independent Feeding: Independent Who Assists with Activities of Daily Living: Instrumental Activities of Daily Living Prescription Coverage: Yes Pharmacy Used: [facility] Medication Management: Mail order Who assists [...] Referral for: Additional Information: Patient admitted to [facility] ICU s/p multivessel PCI. Spoke with patient at bedside, introduced self and role. Patient from home with alone, is independent, has PCP and prescription coverage, will have a ride home and denies discharge needs. Skye Real RN [facility]11-06-2024 [facility] Interventional Cardiology Progress Note CC: s/p multivessel [...] cardiac rehab as outpatient. Follow up with [facility]. Educated on taking aspirin and brilinta [...] 15 CREATININE 0.77 0.93 0.81 Recent Labs 05/02/2433405/02/24 1735 05/02/24200705/03/24 0315 WBC 8.6 10.0 -- [...] ventricle size is nor (more content not included)...[facility]11-06-2024 Consult note* Millie Joseph - 05/03/2024 9:02 AM ESTAssociated Order(s): IP CONSULT TO CARDIAC REHAB; IP CONSULT TO CARDIAC REHAB Received referral and reviewed chart. Phase II Cardiopulmonary Rehab Referral discussed with Nissa Pimentel. Patient prefers cardiopulmonary rehab at [facility] and will follow up with Dr. Pablo todd program. [facility] [id number] NoteReceived referral and reviewed chart. Phase II Cardiopulmonary Rehab Referral discussed with Nissa Trotter. Patient prefers cardiopulmonary rehab at [facility] and will follow up with Dr. Allan todd program. [facility]11-06-2024 Consult note* Millie Joseph - 05/03/2024 9:02 AM EST Associated Order(s): IP CONSULT TO CARDIAC REHAB; IP CONSULT TO CARDIAC REHAB Received referral and reviewed chart. Phase II Cardiopulmonary Rehab Referral discussed with Nissa Pimentel. Patient prefers cardiopulmonary rehab at [facility] and will follow up with Dr. [...] discharged prior to discussion. documented [facility] Plan of care note* Care Plan [...] My discharge needs are met Outcome: Progressing [facility] [id number] Note* Post-Procedure Note - Madeleine Mcnair MD - 05/02/2024 3:49 PM EST [facility] Cardiac Catheterization Laboratory Post-Procedure Note Patient Name: Nissa Trotter Date: 05/02/2024, 3:49 PM Pre-Operative Diagnosis: Multivessel CAD Post-Operative Diagnosis: Multivessel CAD Procedure: [facility] Coronary Angiography IVUS PCI Findings: Successful [...] Cardiac rehabilitation. Physician Signature: Madeleine Mcnair MD [employer] Phone: 1(966) 101-148711-05-2024 Note* Post-Procedure Note - Madeleine Mcnair MD - 05/02/2024 3:49 PM EST [facility] Cardiac Catheterization Laboratory Post-Procedure Note Patient Name: Nissa Trotter Date: 05/02/2024, 3:49 PM Pre-Operative Diagnosis: Multivessel CAD Post-Operative Diagnosis: Multivessel CAD Procedure: [facility] Coronary Angiography IVUS PCI Findings: Successful [...] Cardiac rehabilitation. Physician Signature: Madeleine Mcnair MD [employer] Phone: 1(650) 352-410311-05-2024 [facility] Cardiac Catheterization Laboratory Post-Procedure Note Patient Name: Nissa Trotter Date: 05/02/2024, 3:49 PM Pre-Operative Diagnosis: Multivessel CAD Post-Operative Diagnosis: Multivessel CAD Procedure: [facility] Coronary Angiography IVUS PCI Findings: Successful [...] CAD. Cardiac rehabilitation. Physician Signature: Madeleine Mcnair, [facility]11-05-2024 Note* Care Coordination - Ilana Armstrong RN - 05/02/2024 2:02 PM EST Care Management Progress Note CM attempted IA. Patient OOR for lab systems analyst procedure. CM will attempt again as able. Discharge plan: TBD. Awaiting clinical stability and medical clearance. Length of Stay (Days): 0 GMLOS: No GMLOS Documented [place] [id number] Note* Care Coordination - Ilana Armstrong RN - 05/02/2024 2:02 PM EST Care Management Progress Note CM attempted IA. Patient OOR for lab systems analyst procedure. CM will attempt again as able. Discharge plan: TBD. Awaiting clinical stability and medical clearance. Length of Stay (Days): 0 GMLOS: No GMLOS Documented [place] [id number] NoteCare Management Progress Note CM attempted IA. Patient OOR for lab systems analyst procedure. CM will attempt again as able. Discharge plan: TBD. Awaiting clinical stability and medical clearance. Length of Stay (Days): 0 GMLOS: No GMLOS [facility]ed[facility] Note* Pre-Sedation Documentation - Braeden Mckeon [...] and proceed to administer sedation as planned. [employer] Phone: 1(149) 271-721411-05-2024 Note* Pre-Sedation Documentation - Braeden Mckeon MD [...] and proceed to administer sedation as planned. [employer] Phone: 1([phone]) 683-865411-05-2024 Consult note* Wendie Faust - 05/02/2024 9:31 AM ESTAssociated Order(s): IP CONSULT TO CARDIAC REHAB Received referral and reviewed chart. Unable to discuss Phase II Cardiopulmonary Rehab Referral with Nissa Trotter at this time. Will follow to discuss program when appropriate. Patient will be contacted at home if discharged prior to discussion. ooma [id number] NoteReceived referral and reviewed chart. Unable to discuss Phase II Cardiopulmonary Rehab Referral with Nissa Trotter at this time. Will follow to discuss program when appropriate. Patient will be contacted at home if discharged prior to discussion. [facility]11-05-2024 NoteProblem: Pain - Adult Goal: Verbalizes/displays adequate comfort level or baseline comfort level Outcome: Progressing Problem: Safety - Adult Goal: Free from fall injury Outcome: [facility]-2024 Plan of care note* Care Plan - Ketty Trotter RN - 05/02/2024 4:48 AM EST Problem: Pain - Adult Goal: Verbalizes/displays adequate comfort level or baseline comfort level Outcome: Progressing Problem: Safety - Adult Goal: Free from fall injury Outcome: Progressing [facility] [id number] History and physical note* Nataly Tovar MD - 05/02/2024 2:57 AM EST [facility] [place] [facility] Cardiology/In-Patient Cardiology Service (ICS) History and Physical If patient is on ICS, for questions (see Per Diem Rn Finder): 7:00 AM- 5:00 PM: Contact ICS Fellow 5:00 PM - 11:00 PM: Contact ICS Moonlighter 11:00 PM- 7:00 AM: Contact Night Call (HLU) Fellow Chief Complaint: chest pain, accelerating angina, transfer from [facility] for CABG evaluation History of Present Illness: Nissa Trotter is a 68 y.o. female with a medical history of coronary artery disease status post CABG in 2007 and cardiac cath with PCI in 2015 and 2019 (see below for details). She also has a historyof ELODIA, hyperlipidemia, hypertension, depression/anxiety, prior tobacco use, TIA, and carotid stenosis. She follows with [facility] for her cardiology care. Patient had noticed worsening shortness of breath with activities, decreased exercise tolerance, and increased generalized fatigue for the past 1 month or so per patient. She had a normal stress testin December 2023 however given her cardiac history and her symptoms patient was scheduled for a cardiaccath at [facility] on 05-01-2024. After her cath she [...] as outlined in HPI, cardiac cath at [facility] prior to transfer to [facility] demonstrating ostial 90% stenosis of left main [...] my assessment and plan. Nataly Tovar MD [facility] Work Phone: 1(205) 806-413011-05-2024 [facility] [place] [facility] Cardiology/In-Patient Cardiology Service (ICS) History and Physical If patient is on ICS, for questions (see Per Diem Rn Finder): 7:00 AM- 5:00 PM: Contact ICS Fellow 5:00 PM - 11:00 PM: Contact ICS Moonlighter 11:00 PM- 7:00 AM: Contact Night Call (HLU) Fellow Chief Complaint: chest pain, accelerating angina, transfer from [facility] for CABG evaluation History of Present Illness: Nissa Trotter is a 68 y.o. female with a medical history of coronary artery disease status post CABG in 2007 and cardiac cath with PCI in 2015 and 2019 (see below for details). She also has a history of ELODIA, hyperlipidemia, hypertension, depression/anxiety, prior tobacco use, TIA, and carotid stenosis. She follows with [facility] for her cardiology care. Patient had noticed worsening shortness of breath with activities, decreased exercise tolerance, and increased generalized fatigue for the past 1 month or so per patient. She had a normal stress test in December 2023 however given her cardiac history and her symptoms patient was scheduled for a cardiac cath at [facility] on 05-01-2024. After her cath she [...] as outlined in HPI, cardiac cath at [facility] prior to transfer to [facility] demonstrating ostial 90% stenosis of left main [...] for Wt Physical Exa (more content not included)...[facility]11-05-2024 History and physical note* Nataly Tovar MD - 05/02/2024 2:57 AM EST [facility] [place] [facility] Cardiology/In-Patient Cardiology Service (ICS) History and Physical If patient is on ICS, for questions (see Per Diem Rn Finder): 7:00 AM- 5:00 PM: Contact ICS Fellow 5:00 PM - 11:00 PM: Contact ICS Moonlighter 11:00 PM- 7:00 AM: Contact Night Call (HLU) Fellow Chief Complaint: chest pain, accelerating angina, transfer from [facility] for CABG evaluation History of Present Illness: Nissa Trotter is a 68 y.o. female with a medical history of coronary artery disease status post CABG in 2007 and cardiac cath with PCI in 2015 and 2019 (see below for details). She also has a historyof ELODIA, hyperlipidemia, hypertension, depression/anxiety, prior tobacco use, TIA, and carotid stenosis. She follows with [facility] for her cardiology care. Patient had noticed worsening shortness of breath with activities, decreased exercise tolerance, and increased generalized fatigue for the past 1 month or so per patient. She had a normal stress testin December 2023 however given her cardiac history and her symptoms patient was scheduled for a cardiaccath at [facility] on 05-01-2024. After her cath she [...] history summary: CABG in 2007 Cardiac cath 2016: Normal left main coronary artery, LAD which [...] as outlined in HPI, cardiac cath at [facility] prior to transfer to [facility] demonstrating ostial 90% stenosis of left main [...] and well perfused Laboratory Tests: Reviewed Denilson Macdeo DO DATE of SERVICE: 05/02/2024 I, Nataly [...] plan. Nataly Tovar MD documented [facility] this [facility]10-31-2024 [facility] Medical Records Department [address] [place] [address] History Physical Exam 04/27/24 173 MR#: [id number] Acct: [id number] Name: NISSA TROTTER Rep #: [id number] : 1955 68 From: Ana ALVARADO PCP: Dr. Teresa Boggs DO Status:PRE [facility] Location: [facility] History and Physical Date of Admission: [...] test. She has needed to use nitroglycerin. [facility] Medical History (Updated 03/28/24 @ 10:35 by [...] valve insufficiency Atherosclerosis of coronary artery of [place] heart with angina pectoris CVA (cerebral vascular [...] for dizziness, lightheadedness, near (more content not included)...[facility]04-24-2023 Procedure [facility]04-24-2023 Procedure [facility]01-18-2023 History and physical note Author Dr. Peoples [facility] July 14, 2022 11:09pm Note Date/Time July 14, 2022 1 1:09pm [facility] Medical Records Department [address] [place] [address] History & Physical Exam 07/14/22 2254 MR#: [id number] Acct: [id number] Name: NISSA TROTTER Rep #:[id number] : 1955 66 From: Carlos Noble PCP: Dr. Teresa Boggs, DO Status:PRE [facility] Location: [facility] History and Physical Date of Admission: 07/15/22 [...] and depression Atherosclerosis of coronary artery of [place] heart with angina pectoris Basal cell carcinoma [...] cyclobenzaprine liothyronine zinc gluconate calcium carbonate-vitamin D3 cvjymzgdzw-zivbjivhdwtl-jwsykr levothyroxine FAMILY HISTORY Father - CAD (coronary [...] were included in a form from the [employer]. Assessment & Plan Assessment/Plan (1) Neoplasm of skin of ear: (2) Personal history of skin cancer: (3) Former smoker: 07/14/22 5093 <Electronically signed by Carlos Peoples MD> Cosigner Signature (if applicable): CC: Dr. Carlos Peoples MD; Dr. Teresa Boggs DO~ Signed [facility] Work Phone: [phone]) [phone] Evaluation note* Diagnosis Onset Date Resolution Status Chronic diastolic (congestive) heart failure chronic Essential (primary) hypertension chronic H/O coronary artery bypass surgery October 21, 2007 chronic H/O right coronary artery stent placement March 252019 chronic Hyperlipidemia chronic [facility] Work Phone: 1(356) 599-608904-25-2008 Evaluation note* Diagnosis Onset Date Resolution Status [...] screening for malignant neoplasm of colon acute [facility] Work Phone: [phone]) 300-437004-25-2008 Evaluation note* Diagnosis Onset Date Resolution Status Chronic diastolic (congestive) heart failure chronic Essential (primary) hypertension chronic H/O coronary artery bypass surgery October 21, 2007 chronic Hyperlipidemia chronic [facility] Work Phone: 1([phone]) 740-147003-03-2008 History of Present illness Narrative* 08/29/2007 4:00 [...] No history of dysuria, frequency and incontinence BALLET SOLOIST: Negative for abnormal vaginal bleeding, abnormal vaginal [...] TSH. 2. h/o angioedema: diagnosed in the [facility] few years ago, and she was [...] daily. Moises Muniz MD documented in this encounterOhio[facility]03-03-2008 Nurse Note* 08/29/2007 4:00 PM EST >> NEIDA CHAPPELL MA Mon Aug 29, 2007 3:49 PM Is the patient having any pain? Yes: LOCATION: joints in hands ,wrists, elbows PAIN SCALE: 6 on a scale of 0-10 Neida Chappell Ma documented in this encounterOhiohealth Grady Memorial HospitalDischarge summary Author Dr. Peoples [facility] July 15, 2022 10:19am Note Date/Time July 15, 2022 9 :27am [facility] Medical Records Department [address] [place] [address] Instructions for Home/Discharge Instructions 07/15/22 0925 MR#: [id number] Acct: [id number] Name: NISSA TROTTER Rep #:[id number] : 1955 66 From: Carlos Noble PCP: Dr. Teresa Boggs, DO Status:[facility] Discharge Instructions Diet Discharge Diet: No restrictions [...] Carlos Peoples MD When: one week. call [phone] for appt. Test Results: Test results from [...] -50 unit capsule 1 cap PO DAILY nwmgjqfwew-gpaimnjtxbsb-squlrz 100-500-50 mg capsule 1 cap PO DAILY [...] CC: Dr. Teresa Boggs DO ~ Signed [facility] Work Phone: Evaluation note* Diagnosis Myalgia and myositis, unspecified Mylagia and myositis, unspecified Unspecified hypothyroidism Essential hypertension, benign Depressive disorder, not elsewhere classified Anxiety state, unspecified documented in this encounter [facility] HospitalEvaluation noteNo assessment information availableWGreen Cross Hospital Work Phone: Evaluation note* Diagnosis Onset Date Resolution Status Osteoarthritis of knees, bilateral acute [facility] Work Phone: Evaluation note* Diagnosis Onset Date [...] left postauricular region chronic Former smoker chronic [facility] Work Phone: Evaluation note* Diagnosis Onset Date [...] left postauricular region chronic Former smoker chronic [facility] Work Phone: Evaluation note* Diagnosis Onset Date [...] left postauricular region chronic Former smoker chronic [facility] Work Phone: Evaluation note* Diagnosis Onset Date Resolution Status Personal [...] left postauricular region chronic Former smoker chronic [facility] Work Phone: Evaluation note* Diagnosis Onset Date Resolution Status Encounter for screening for malignant neoplasm of colo n acute [facility] Work Phone: Evaluation note* Diagnosis Onset Date Resolution Status Encounter for screening for malignant neoplasm of colon acute Chest pressure acute SHANNON (dyspnea on exertion) ac [facility] Fatigue acute Chronic diastolic (congestive) heart failure chronic Essential (primary) hypertension chronic H/O coronary artery bypass surgery October 21, 2007 chronic Hyperlipidemia chronic [facility] Work Phone: Evaluation note* Diagnosis Accelerating angina (HCC)- Primary Intermediate coronary syndrome Accelerating angina (HCC) Intermediate coronary syndrome Accelerating angina (HCC) Intermediate coronary syndrome documented [facility] encounter [facility] Author Dagoberto Erwin [facility] October 19, 2022 7:12am Note Date/Time October 19, 2022 7:1 2am [facility] Medical Records Department [address] [place] [address] History & Physical Exam 10/19/22 0710 MR#: [id number] Acct: [id number] Name: NISSA TROTTER Rep #:[id number] : 1955 67 From: Dagoberto Erwin DO PCP: Dr. Teresa Boggs DO Status:[facility] Location: [place] [address] HPI - General General Date of Admission: 10/19/22 Date of Service: 10/19/22 Chief Complaint: Screening colonoscopy HPI Narrative NISSA TROTTER, is a 67 F who presents today for screening colonoscopy. She has a past medical history of adenomatous polyps. Last colonoscopy was in 2016. She had 1 polyp at that time. [...] She tolerated the prep without any problems. [facility] Medical History (Updated 10/12/22 @ 13:04 by Antonia Grover) Actinic keratoses Alcohol abuse Allergies Anxiety Anxiety and depression Arthritis Atherosclerosis of coronary artery of [place] heart with angina pectoris Back pain Basal [...] PO DAILY 06/08/22 [History Last Taken Unknown] rfqarztxiv-yrtmmrglnbzg-chgtmt 100 mg-500 mg-50 mg capsule 1 cap [...] Cosigner Signature (if applicable): CC: Dr. Teresa Boggs, ; Dagoberto Erwin DO~ Signed [facility] Work Phone: Hospital Discharge instructions Additional Instructions Implant Used?: NoWGreen Cross Hospital Work Phone: Reason for referral (narrative)No reason for referral information availableWGreen Cross Hospital Work Phone: Reason for visit Narrative* Auth/Cert (Routine) Specialty Diagnoses / Procedures Referred By Contálvaro t Referred To Contact Diagnoses Accelerating angina (HCC) CAD Procedures . Nataly Tovar MD [address] [facility] [address] [place] [address] Phone: tel: fax: [facility] Cath/EP Lab [address] [place] [phone] Phone: tel: Referral ID Status Reason Start Date Expiration Date Visits Re quested Visits Authorized [id number] 1 1 [facility] Chief Complaint and Reason for Visit Chief [...] surgery Hyperlipidemia Chief Complaint Admit Date S/P [facility] 05/04May 10, 2024 3:38pm PCI with [...] 3:38pm H/O coronary artery bypass surgery Novem andreson 2023 3:38pm History of coronary artery stent [...] M FU September 07, 2024 7:5 2am ELOIDA,BIPAP ST September 08, 2024 12: 54pm PCI [...] No February 7:25am Living Will No May 14, 021 4:59pm Power of Pc Network Technician No May 14, 2021 4:59pm Advance Directive Response Recorded Date/ Time Advance Directives No February 7:25am Living Will No February 24 8:04am Power of Pc Network Technician No February 24, 022 8:04am Advance Directive Response Recorded Date/ Time Advance Directives No April 30, 2022 9:36am Living Will No April 30 9:36am Power of Pc Network Technician No April 30, 2022 9:36am Advance Directive Response Recorded Date/ Time Advance Directives No April 30, 2022 10:36am Living Will No April 30 10:36am Power of Pc Network Technician No April 30, 2022 10:36am Advance Directive Response Recorded Date/ Time Advance Directives No April 30, 2022 10:36am Living Will No October 12, 2022 12:54pm Power of Pc Network Technician No October 12 12:54pm Advance Directive Response Recorded Date/ Time Advance Directives No April 30, 2022 9:36am Living Will No October 12, 2022 11:54am Power of Pc Network Technician No October 12 11:54am Date Activated Date Inactivated Comments 05/02/2024 2:09 AM 05/04/2024 4:54 PM Advance Directive Response Recorded Date/ Time Advance Directives on File No 2023 3:17pm Living Will No May 22, 2 024 3:17pm Power of Pc Network Technician No May 22, 2024 3:17pm Advance Directives No May 01, 2024 10:20am Advance Directive Response Recorded Date/ Time Advance Directives on File No 2023 3:17pm Living Will No May 22, 2 024 3:17pm Do you have a Healthcare Power of Pc Network Technician? No May 22, 2024 3:17pm Advance Directives [...] or prosecute any alcohol or drug abuse patient.[facility] Reason for Visit (unrecogniz ed [...] Role Status Dates Dr. Teresa Boggs DO Family Provider Active Dr. Teresa Boggs , DO Primary Care Provider Active Team Status: Inactive Member Role Status Dates Dr. Teresa Boggs , DO Primary Care Provider, Referring P rovijose Active Dr. Christian Reynolds , DO Attending Provider Active Team Status: Inactive Member Role Status Dates Dr. Teresa Boggs , DO Primary Care Provider Active Dr. Dustin Lemus MD Attending Provider Active Team Status: Inactive Member Role Status Dates Dr. Teresa Boggs , DO Primary Care Provider, Referring P rovider [...] Provider, Referring P rovider Active Lia Smith CITRIX ADMINISTRATOR, CITRIX ADMINISTRATOR-C Attending Provider Active Team Status: Active Member [...] rovider Active Dr. Dagoberto Erwin DO Attending Provider, Other Prov ider Active Team Status: Inactive Member Role Status Dates Dr. Teresa Boggs DO Primary Care Provider, Referring P rovider Active Dr. Dagoberto Erwin DO Attending Provider Active Team Status: Inactive Member Role Status Dates Dr. Teresa Boggs DO Primary Care Provider, Referring P rovider Active Sharla Dubois CITRIX ADMINISTRATOR, CITRIX ADMINISTRATOR-C Attending Provider Active Team Status: Inactive Member Role Status Dates Dr. Teresa Boggs DO Primary Care Provider, Referring P rovider Active Ana Bailey PA, PA Attending Provider Active Team Status: Inactive Member Role Status Dates Dr. Teresa Boggs DO Primary Care Provider Active Sharla Dubois CITRIX ADMINISTRATOR, CITRIX ADMINISTRATOR-C Attending Provider, Referring P rovider Active Team Status: Active Member Role Status Dates Dr. Teresa Boggs DO Primary Care Provide r, Attending Provider, Referring Provider Active Guide Changer Relationship Specialty Start Date End Date Teresa Boggs [address] [place] [address] PCP - General Family Medicine 05/03/24 Team Status: Active Member Role Status Dates Dr. Teresa Boggs DO Primary Care Provider Active Team Status: Inactive Member Role Status Dates Dr. Teresa Boggs DO Primary Care Provider Active Start: May 10, 2024 End: May 10, 2024 Dr. Teresa Boggs DO Referring Provider Active St art: May 10, 2024 End: May 10, 2024 Carrington Wakefield CITRIX ADMINISTRATOR, CITRIX ADMINISTRATOR-C Attending Provider Active S tart: May 10, [...] 26, 2024 End: June 27, 2024 Dr. Dusitn Lemus MD Referring Provider Active S tart: June 26, 2024 End: June 27, 2024 Team Status: Inactive Member Role Status Dates Dr. Teresa Boggs DO Primary Care Provider Active Start: July 20, 2024 End: July 20, 2024 Dr. Teresa Boggs DO Referring Provider Active St art: July 20, 2024 End: July 20, 2024 Quinton Silva PA, PA Attending Provider Active Sta rt: July [...] 07, 2024 End: September 07, 2024 Ana ALVARADO PA Attending Provider Active Start: September 07, [...] End: October 03, 2024 Ana ALVARADO, PA Referring Provider Active Start: October 03, [...] 31, 2024 End: October 31, 2024 Carly M Rufener , CITRIX ADMINISTRATOR-C Referring Provider Active Start: October 31, 2024 [...] Active Start: November 03, 2024 Carly Colin CITRIX ADMINISTRATOR-C Referring Provider Active Start: November 03, 2024 [...] 2024 End: November 21, 2024 CARLI Kerr Referring Provider [...] 07, 2024 End: September 07, 2024 Ana ALVARADO PA Attending Provider Active Start: September 07, [...] End: October 03, 2024 Ana ALVARADO, PA Referring Provider Active Start: October 03, [...] November 21, 2024 Dr. Jose Wolfe , DO Attending Provider Active S tart: November [...] End: October 03, 2024 Ana ALVARADO, PA Referring Provider Active Start: October 03, [...] Active Start: November 03, 2024 Carly Colin NP-Sean Other Provider Active St art: November 03, [...] Status: Inactive Member Role/Relationship Status Dates Dr. Tereas Boggs DO Primary Care Provider Active Start: [...] October 18, 2024 End: October 18, 2024 CRALI Kerr Attending Provider Active Start: October 18, [...] Inactive Member Role/Relationship Status Dates Dr. Teresa Bgogs DO Primary Care Provider Active Start: November 21, 2024 End: November 21, 2024 CARLI Kerr Attending Provider Active Start: November 21, 2024 End: November 21, 2024 Carly Colin NP-Sean Referring [...] 2024 End: December 15, 2024 Carly Colin NP-Sean Referring Provider Active Start: December 15, 2024 [...] Mchugh RN) 0905 (Given - Provider: Tahmina Stockton, KATIE) 0917 (Given - Provider: Tahmina Stockton, KATIE) aspirin EC tablet 81 mg 81 mg, Oral, Daily, First dose on Wed05/02/24 at 0900, Do not crush, chew, or split. 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)2119 (Given - Provider: Rebecca Ramírez RN) 0904 (Given - Provider: Tahmina Stockton RN)1525 (Given - Provider: Tahmina Stockton RN)211 (Given - Provider: Ulices Rodriguez RN) 0916 [...] Ramírez RN) 0510 (Given - Provider: Ulices Rodriguez RN) metoprolol tartrate (Lopressor) tablet 25 mg 25 mg, Oral, 2 times daily, First dose on Wed05/02/24 at 0900 0744 (Given - Provider: Nimo Mchugh RN)2120 (Given - Provider: Rebecca Ramírez RN) 0905 (Given - Provider: Tahmina Stockton, KATIE)211 (Given - Provider: Ulices Rodriguez RN) 0917 (Given - Provider: aThmina Stockton RN) nitroglycerin (Nitrodur) 0.6 MG/HR patch 1 patch [...] 2111 (Given - Provider: Ulices Rodriguez RN) pantoprazole (ProtoNix) EC tablet 20 mg(Linked Group 1) 20 mg, Oral, Nightly, First dose on Wed05/02/24 at 2100, Do not crush, chew, or split. 2118 [...] 0905 (Given - Provider: Tahmina Stockton RN) 899 [...] Ramírez RN) 904 (Given - Provider: Tahmina Stockton RN)2111 (Given - Provider: Ulices Rodriguez RN) 0917 (Given - Provider: Tahmina Stockton RN) Continuous [...] from all sources in 24 hours. 2119 (Given - Provider: Rebecca Ramírez RN) aluminum & magnesium hydroxide-simethicone (Mylanta) 200-200-20 MG/5ML oral suspension 10 mL 10 mL, Oral, PRN, indigestion, heartburn, Starting on Wed05/02/24 at 1836 1852 (Given - Provider: Tiffanie Manzano RN) fentaNYL (Sublimaze) injection (CANCELED) IntraVENous, As needed, [...] Ernie Ray RN)1407 (Given - Provider: Ernie Ray, KATIE)1447 (Given - Provider: Ernie Ray RN) iopamidol [...] Ketty Trotter, RN)1925 (Given - Provider: Tahmina Stockton, KATIE) NITROGLYCERIN 100 MCG / ML IN D5W [...] section and content) DATE CREATED AUTHOR 05/06/2024 [facility] DATE CREATED AUTHOR AUTHOR'S ORGANIZ ATION 02/10/2025 [facility] FOR RECORDS PERTAINING TO PATIENTS WHO ARE [...] BE BASED ON THE PRIMARY CLINICAL RECORDS. [email or web address] provides no warranty or guarantee of the accuracy or completeness of information in this document.
--- NOTE | 2025-02-12 18:32 | STRESSREP ---
Stress Test Report Exercise myocardial perfusion stress test. 69-year-old lady with a history of abnormal echocardiogram. Stress protocol: Resting EKG demonstrates normal sinus rhythm with a rate of 62 bpm. Inferior lateral T wave inversions are noted. Occasional premature ventricular complexes present. Resting blood pressure is 142/74 mmHg. The patient exercised according to the regular Gold protocol for a total duration of 8 minutes and 10 seconds attaining a maximum heart rate of 126 bpm which was 84% of maximum predicted heart rate; the maximum workload was 10.1 metabolic equivalents. At rest there were no ST or T wave changes noted to suggest ischemia and at peak exercise upsloping ST changes only were noted which did not meet the criteria for ischemia. No clinical angina was noted but mild shortness of breath was noted and then during recovery there was a burning sensation under her left breast. The test was terminated due to the target heart rate being achieved/fatigue. The peak blood pressure was 172/70 mmHg. Rate-pressure product was 21,100. Myocardial perfusion protocol. 12.1 mCi of technetium 99m sestamibi was injected at rest. The patient exercised according to regular Gold protocol for total duration of 8 minutes and 10 seconds and at peak exercise 36 mCi of technetium 99m sestamibi was injected stress images were obtained stress and rest images were reconstructed in comparing the short axis vertical long and horizontal long axis. Gated images were also obtained. Perfusion SPECT analysis: Review of the stress images demonstrate normal uptake of tracer noted in all areas of the myocardium. There was an area at the apex with reduced perfusion present. The rest images demonstrate a similar pattern with reduced perfusion noted at the apex. 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 No significant reversibility is noted suggest ischemia. Gated SPECT analysis: The gated ejection fraction is 62%. Conclusion: Normal exercise myocardial perfusion stress test at a high workload. Previous apical infarct present
== END | disposition home or self-care (01) ==
LOC: CVS 05:40
PROVIDERS: PCP Family Medicine; Referring Provider Student in an Organized Health Care Education/Training Program; Visit Provider Student in an Organized Health Care Education/Training Program
DX: R93.1 Abnormal findings on diagnostic imaging of heart and coronary circulation (principal); I25.119 Atherosclerotic heart disease of native coronary artery with unspecified angina pectoris
CPT/HCPCS: 78452; 93017; A9500; A4216

== ENCOUNTER 2025-02-15 08:00 | Outpatient (RCR) | payer SELFPAY ==
[2024-09-14 09:52] VITALS: BMI 28.9
== END 2025-02-25 23:59 ==
LOC: CR 08:00
PROVIDERS: PCP Family Medicine; Referring Provider Internal Medicine Cardiovascular Disease; Visit Provider Internal Medicine Cardiovascular Disease
DX: Z00.00 Encounter for general adult medical examination without abnormal findings (principal)

== ENCOUNTER → 2025-04-04 | Outpatient (CLI) | payer MEDICARE, SELFPAY ==
[2024-09-14 09:52] VITALS: BMI 28.9
== END | disposition home or self-care (01) ==
LOC: LABSPEC 12:17
PROVIDERS: PCP Family Medicine; Referring Provider Family Medicine; Visit Provider Family Medicine
DX: R30.0 Dysuria (principal)
CPT/HCPCS: 87086

== ENCOUNTER 2025-05-17 08:00 | Outpatient (RCR) | payer SELFPAY ==
[2024-09-14 09:52] VITALS: BMI 28.9
== END 2025-05-27 23:59 ==
LOC: CR 08:00
PROVIDERS: PCP Family Medicine; Referring Provider Internal Medicine Cardiovascular Disease; Visit Provider Internal Medicine Cardiovascular Disease
DX: Z00.00 Encounter for general adult medical examination without abnormal findings (principal)

== ENCOUNTER 2025-05-28 12:00 | Emergency (ER) | payer MEDICAID, MEDICARE, SELFPAY ==
[2024-09-14 09:52] VITALS: BMI 28.9
[2025-05-28 12:01] VITALS: BP 146/74; PULSE 77; RESP 18; TEMP 36.6; O2SAT 77; BMI 28.5
[2025-05-28 13:09] VITALS: BP 94/74; PULSE 61; RESP 16; TEMP 36.9; O2SAT 100
--- NOTE | 2025-05-28 15:14 | EX.ED.DYSGE1 ---
HPI History of Present Illness Chief Complaint: Other, Pain/Inj Informant: patient Narrative Narrative: 69-year-old female presenting to the emergency room out of concern for oral thrush. Patient states that she has had a burning in her chest since January. She has had prior coronary artery disease stenting. Patient states that she was seeing pulmonology as she was having difficulty with her sleep apnea on her BiPAP. She states that she had a sleep study and got that straightened out. During that process she mentioned the burning in her chest and she was taking famotidine. It has persisted and so she has an appointment to days with gastroenterology. She states now she has developed a thick coating of her tongue burning in her pharynx and wonders if the burning in her chest could be thrush in addition to her mouth. She was advised by pulmonary to come to emergency for this. She is not a diabetic she does not have immunosuppression that she is aware of. She does wear a fullface BiPAP mask and gets the tubing and mask replaced per the recommendation. She does use a nasal but not inhaled corticosteroids PFSH [facility] Medical History Bilateral carotid bruits Easy bruising 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 Wears partial dentures Wears glasses Post-menopausal Cancer Depression Anxiety History of steroid therapy Thyroid disease Arthritis Back pain History of IBS CPAP (continuous positive airway pressure) dependence History of echocardiogram History of stress test Hypertension Cardiology follow-up encounter History of heart attack History of atrial fibrillation Former smoker Personal history of skin cancer Neoplasm of skin of ear ELODIA (obstructive sleep apnea) High triglycerides Anxiety and depression Allergies Alcohol abuse Actinic keratoses IBS (irritable bowel syndrome) Myocardial infarct Bipolar 1 disorder TIA (transient ischemic attack) Blurred vision, bilateral Slurred speech Chronic diastolic (congestive) heart failure Subluxation of left thumb Essential (primary) hypertension Non-rheumatic tricuspid valve insufficiency Atherosclerosis of coronary artery of tejon heart with angina pectoris CVA (cerebral vascular accident) Basal cell carcinoma of neck Hypothyroidism GERD (gastroesophageal reflux disease) Osteoarthritis Fibromyalgia Seizure disorder Post traumatic stress disorder (PTSD) Hyperlipidemia Home Medications ?Medication ?Instructions ?Recorded ?Last Taken ?Type aspirin 81 mg chewable tablet 81 mg PO DAILY@0800 ANTIPLATELET 09/24/16 05/28/25 History cyclobenzaprine 5 mg tablet 5 mg PO PRN PRN Muscle Pain 05/06/22 05/27/25 History calcium carbonate-vitamin D3 500 1 cap PO DAILY 06/08/22 05/28/25 History mg (1,250 mg)-50 unit capsule duloxetine 60 mg capsule,delayed 60 mg PO DAILY 07/10/22 05/28/25 History release nitroglycerin 0.4 mg sublingual See Rx Instructions .Route 03/30/23 Unknown Rx tablet .COMPLEX #25 tabs estradiol 0.01% (0.1 mg/gram) See Rx Instructions .Route 04/06/24 05/25/25 Rx vaginal cream .COMPLEX #42.5 grams metoprolol tartrate 25 mg tablet 25 mg PO BID #180 tabs 11/23/24 05/28/25 Rx spironolactone 25 mg tablet 25 mg PO DAILY #90 tabs 11/23/24 05/28/25 Rx (Aldactone) levothyroxine 50 mcg tablet 50 mcg PO QDAY 12/15/24 05/28/25 History pantoprazole 20 mg tablet,delayed 20 mg PO QDAY #90 tabs 12/19/24 05/28/25 Rx release rosuvastatin 40 mg tablet (Crestor) 40 mg PO QDAY #90 tabs 12/19/24 05/28/25 Rx ticagrelor 90 mg tablet (Brilinta) 90 mg PO BID #180 tabs 01/19/25 05/28/25 Rx amlodipine 10 mg tablet 10 mg PO DAILY #90 tabs 02/01/25 05/28/25 Rx fluticasone propionate 50 1 spray intranasal QDAY 03/02/25 05/27/25 History mcg/actuation nasal spray,suspension (Flonase Allergy Relief) famotidine 40 mg tablet 40 mg PO QDAY PRN gerd 05/10/25 Unknown History lactobacillus combination no.9 4 4,000 mmu cells PO QDAY 05/10/25 05/28/25 History billion cell capsule (Adult 50 Plus Probiotic) multivitamin 1 tab PO QDAY 05/10/25 05/28/25 History buspirone 15 mg tablet 15 mg PO TID 05/28/25 05/28/25 History nystatin 100,000 unit/mL oral 5 ml PO 4X/DAY 14 days #280 mL 05/28/25 Unknown Rx suspension Allergy/AdvReac Type Severity Reaction Status Date / Time adhesive tape Allergy Rash Verified 05/28/25 12:04 doxazosin Allergy DROPS Verified 05/28/25 12:04 HEART RATE furosemide (From Lasix) Allergy Itching Verified 05/28/25 12:04 latex Allergy Rash Verified 05/28/25 12:04 lisinopril Allergy Angioedema Verified 05/28/25 12:04 codeine AdvReac Itching Verified 05/28/25 12:04 oxycodone HCl (From Percocet) AdvReac Itching Verified 05/28/25 12:04 tramadol HCl (From Ultram) AdvReac Itching Verified 05/28/25 12:04 Family History Father CAD (coronary artery disease) Hypertension Mother CAD (coronary artery disease) Hypertension Colon cancer Sister Hypertension Other Alcoholism Anxiety Arthritis Depression Heart disease Surgical History History of excision of lesion Hx of surgical procedure History of coronary artery stent placement Hx of foot surgery Hx of foot surgery History of esophagogastroduodenoscopy (EGD) History of basal cell carcinoma excision History of left heart catheterization (03/25/20) H/O coronary artery bypass surgery (10/21/07) Social History Smoking Status: Former smoker alcohol intake: former details: Participates in AA substance use type: does not use caffeine: No what type of physical activity do you participate in: walking seatbelt use: always do you feel safe at home: Yes additional social history: disability- retired Does Take Aspirin As Needed Does Not Take Ibuprofen ROS ROS ED Constitutional Constitutional ED: Denies chills, fever(s) or weight loss Eyes Eyes: Denies change in vision or diplopia ENT ENT ED: Reports sore throat and other Details: White coating on tongue bad taste in mouth ; Denies ear pain or rhinorrhea Cardiovascular Cardiovascular: Denies chest pain, orthopnea, palpitations or racing heartbeat Respiratory/Chest Respiratory/Chest: Denies cough, dyspnea or orthopnea Gastrointestinal Gastrointestinal: Denies abdominal pain, diarrhea, nausea or vomiting Genitourinary Genitourinary ED: Denies dysuria, hematuria or urinary frequency Musculoskeletal Musculoskeletal: Denies arthralgias or myalgias Integumentary Denies abscess or rash Neurologic Neurologic: Denies headache(s) or weakness Psychiatric Psychiatric: Denies anxiety, depression, suicidal ideation or suicidal thoughts Endocrine Endocrinology: Denies polydipsia, polyphagia or polyuria Allergic/Immunologic Allergic/Immunologic ED: Denies mouth swelling, tongue swelling or urticaria EXAM Physical Exam Const Vital Signs: 05/28/25 12:01 05/28/25 13:06 05/28/25 13:09 Temperature 97.8 F 98.4 F Temperature Source Temporal Pulse Rate 77 61 Respiratory Rate 18 16 Respiratory Effort Normal Non-Labored Blood Pressure 146/74 H 94/74 Blood Pressure Mean 98 80 Pulse Ox 77 100 Positive well nourished and well developed General Appearance ED: well developed HEENT Reports normocephalic, head/scalp atraumatic and moist mucous membranes HEENT Narrative: Patient does have a thick white coating on her tongue. There are a few spots on the buccal mucosa that could be oral candidiasis. No significant erythema. Eyes PERRL and EOMs intact bilaterally Neck no lymphadenopathy, supple and no JVD Resp normal respiratory effort and clear to auscultation bilaterally Cardio regular rate, regular rhythm and no murmurs GI normal to inspection, nondistended, normoactive bowel sounds and non-tender Palpation: soft Back/Spine no CVA tenderness and normal ROM Extremity normal to inspection General Extremety ED: Negative for edema General Extremity: Negative for edema Neuro oriented x3 and CN's II-XII intact bilaterally Sensorium / Orientation: alert Motor Exam: strength 5/5 throughout Psych mental status grossly normal Mood & Affect: Negative for depressed or tearful Skin no rashes or lesions noted and no wounds MDM MDM MDM Narrative Medical decision making narrative: Differential diagnosis includes but not limited to oral thrush bacterial pharyngitis viral pharyngitis esophageal candidiasis GERD Patient's reasonable to do a trial of oral nystatin as she awaits to see gastroenterology. I have her swish and swallow 4 times a day. I do not feel that this is cardiac in nature given the longevity of her symptoms and her most recent cardiac stenting and cardiac follow-up. History & Record Review Discussion w/independent historian: Patient Discharge Plan Triage Chief Complaint: Other, Pain/Inj ED Provider: Carlos Gaines Dx/Rx/DC Orders Clinical Impression: Oral thrush Instructions: Jillian Infection: Thrush Prescriptions: New nystatin 100,000 unit/mL suspension 5 ml PO 4X/DAY 14 Days Qty: 280 0RF Rx Instructions: Put 5 mL in mouth 4 times a day. Swish for several minutes and swallow No Action cyclobenzaprine 5 mg tablet 5 mg PO PRN PRN (Reason: Muscle Pain) Patient Comments: take 1-2 tablet by mouth every 8 hours if needed muscle spasm calcium carbonate-vitamin D3 500 mg(1,250mg) -50 unit capsule 1 cap PO DAILY duloxetine 60 mg capsule,delayed release(DR/EC) 60 mg PO DAILY levothyroxine 50 mcg tablet 50 mcg PO QDAY multivitamin Tablet 1 tab PO QDAY Adult 50 Plus Probiotic 4 billion cell capsule 4,000 mmu cells PO QDAY Rx Instructions: administer with a meal estradiol 0.01 % (0.1 mg/gram) cream See Rx Instructions .ROUTE .COMPLEX Qty: 42.5 2RF Rx Instructions: 1 toshia as directed; pea sized amount using fingertip method every night x 2 weeks then 2 times per week thereafter. fluticasone propionate [Flonase Allergy Relief] 50 mcg/actuation spray,suspension 1 spray intranasal QDAY Rx Instructions: administer into each nostril famotidine 40 mg tablet 40 mg PO QDAY PRN (Reason: gerd) aspirin 81 MG tablet,chewable 81 mg PO DAILY@0800 Patient Comments: HEART HEALTH-LAST DOSE 07/10/22 buspirone 15 mg tablet 15 mg PO TID nitroglycerin 0.4 mg tablet, sublingual See Rx Instructions .ROUTE .COMPLEX Qty: 25 6RF Dose Instruction: DISSOLVE 1 TABLET UNDER THE TONGUE EVERY 5-15 MINUTES NEEDED FOR CHEST PAIN Rx Instructions: DISSOLVE 1 TABLET UNDER THE TONGUE EVERY 5-15 MINUTES NEEDED FOR CHEST PAIN spironolactone [Aldactone] 25 mg tablet 25 mg PO DAILY Qty: 90 3RF metoprolol tartrate 25 mg tablet 25 mg PO BID Qty: 180 3RF rosuvastatin [Crestor] 40 mg tablet 40 mg PO QDAY Qty: 90 3RF pantoprazole 20 mg tablet,delayed release (DR/EC) 20 mg PO QDAY Qty: 90 3RF ticagrelor [Brilinta] 90 mg tablet 90 mg PO BID Qty: 180 3RF amlodipine 10 mg tablet 10 mg PO DAILY Qty: 90 3RF Patient Comments: BLOOD PRESSURE Primary Care Provider: Teresa Boggs Referrals: Teresa Boggs DO [Primary Care Provider, Family Practice] - 1 Week if not improving Activity Restrictions/Additional Instructions: Make sure you are cleaning any dentures nightly as this can be a source of oral thrush. Print Language: Citizen Of [place] Disposition Disposition: Home, Self Care Discharge Date/Time: 05/28/25 13:09
== END 2025-05-28 13:09 | disposition home or self-care (01) ==
LOC: ED 12:42
PROVIDERS: Emergency Provider Emergency Medicine; PCP Family Medicine; Visit Provider Emergency Medicine
DX: B37.0 Candidal stomatitis (principal); I11.0 Hypertensive heart disease with heart failure; I50.32 Chronic diastolic (congestive) heart failure; Z79.899 Other long term (current) drug therapy; Z87.891 Personal history of nicotine dependence
CPT/HCPCS: 99282

== ENCOUNTER 2025-05-29 08:44 | Outpatient (RCR) | payer SELFPAY ==
[2024-09-14 09:52] VITALS: BMI 28.9
== END 2025-06-27 23:59 ==
LOC: CR 08:44
PROVIDERS: PCP Family Medicine; Referring Provider Internal Medicine Cardiovascular Disease; Visit Provider Internal Medicine Cardiovascular Disease
DX: Z00.00 Encounter for general adult medical examination without abnormal findings (principal)

== ENCOUNTER → 2025-06-01 | Outpatient (CLI) | payer MEDICARE, MEDICAID, SELFPAY ==
[2024-09-14 09:52] VITALS: BMI 28.9
[2025-06-01 10:58] LABS: Hematocrit 45.5 % (37-47); Hemoglobin 15.3 g/dL (12.0-15.0); Immature Granulocytes Count 0.040 X10^3/uL (0.0-0.0); Mean Corp Hgb Conc 33.6 g/dL (32-36); Mean Corpuscular Volume 92.9 fL (81-99); Mean Platelet Vol. 9.6 fl (6.2-12.0); NRBC Flagged by Analyzer 0 % (0-5); Platelet Count 279 K/mm3 (150-450); RBC Distribution Width CV 12.9 % (11.6-14.6); RBC Distribution Width SD 43.7 fl (35.1-43.9); Red Blood Count 4.90 M/mm3 (4.2-5.4); White Blood Count 8.7 K/mm3 (4.4-11.0)
[2025-06-01 11:23] LABS: Bilirubin, Direct 0.52 mg/dL (0.00-0.30); Cholesterol 159 mg/dL (<=200); Low Density Lipoprotein Calc. 68 mg/dL; Triglycerides 104 mg/dL; Very Low Density Lipoprotein 21 mg/dL (5-40); cholesterol:hdl ratio screen 2.21
[2025-06-01 12:05] LABS: AST(SGOT) 43 U/L (<=31); Alanine Aminotransfer ALT/SGPT 33 U/L (<=34); Albumin, Serum 5.1 g/dL (3.4-4.8); Alkaline Phosphatase 85 U/L (35-104); Anion Gap 19 (5-15); BUN 28 mg/dL (4-19); BUN/Creat Ratio 21.8 RATIO (10-20); Calcium,Total 10.3 mg/dL (7.6-11.0); Carbon Dioxide 19.3 mmol/L (21.0-32.0); Chloride 100 mmol/L (98-108); Globulin 3.3 g/dL (2.2-4.2); Glucose 98 mg/dL (70-99); Lipase 42 U/L (13-75); Potassium 4.2 mmol/L (3.3-5.1)
== END | disposition home or self-care (01) ==
LOC: SL 12:32
PROVIDERS: Physician Assistant Medical; Student in an Organized Health Care Education/Training Program; PCP Family Medicine; Referring Provider Family Medicine; Visit Provider Family Medicine
DX: R10.13 Epigastric pain (principal); E78.00 Pure hypercholesterolemia, unspecified
CPT/HCPCS: 36415; 80053; 80061; 82248; 83690; 85025

== ENCOUNTER 2025-06-22 06:49 | Day surgery (SDC) | payer MEDICARE, MEDICAID, SELFPAY ==
[2024-09-14 09:52] VITALS: BMI 28.9
--- NOTE | 2025-06-15 19:46 | PAT.ANE_ITS ---
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 When Was Last Pacemaker Check QUESTION #4 FULL TEXT: You/Your Family Experience fever (hyperthermia) with Anesthesia Last Oral Intake Last Oral intake: Last Oral Intake NPO since Meds taken in AM with sips of water? Meds patient instructed to take am of surgery PONV PONV - testboard operator: PONV - testboard operator Female Yes 06/15/25 08:48 HX of Motion Sickness No 06/15/25 08:48 HX of N/V After Surgery No 06/15/25 08:48 Non-Smoker Yes 06/15/25 08:48 Duration of Surgery greater No 06/15/25 08:48 than 60 minutes Number of Risk Factors 2 06/15/25 08:48 PONV Score Moderate Risk 06/15/25 08:48 Height & Weight Height & Weight: Anesthesia: Height & Weight Height 5 ft 1.5 in 05/28/25 12:01 Respiratory Assessment Respiratory Assessment - testboard operator: Respiratory Tract Infection Hx - testboard operator Hx Respiratory Tract Infection Yes: THRUSH/TREATED/RESOLVED 06/15/25 08:48 STOP Sleep Apnea STOP Sleep Apnea - testboard operator: STOP Sleep Apnea - testboard operator Hx Hypertension Yes: CONTROLLED WITH MED 06/15/25 08:48 Hx Sleep Apnea Yes 06/15/25 08:48 CPAP No 06/15/25 08:48 BIPAP Yes 06/15/25 08:48 Do you snore loudly (louder than talking or can be heard Do you often feel tired/ fatigued/ sleepy during daytime? Has anyone observed you stop breathing during sleep? STOP Results Positive 06/15/25 08:48 QUESTION #5 FULL TEXT : Do you snore loudly (louder than talking or can be heard through closed doors)? 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 Specify any problems Hx of Preganancy in last 3 No 06/15/25 08:48 Months Nurse Filling Out Transfusion DSCHRIBER 06/15/25 08:48 & Questions: Date: 06/15/25 06/15/25 08:48 Time: 08:52 06/15/25 08:48 Patient unable to answer at this time (ie. confused, unrespo /Reproduction History /Reproductive History - testboard operator: /Reproductive Hx- testboard operator Hx Now No 06/15/25 08:48 Gestational Age (in weeks): EDC: Hx Hx Para Hx Section SAB No 06/15/25 08:48 Does the father of the baby or his family experience fever w Father of the baby Malignant Hypertension history comment PFS Medical History (Updated 06/15/25 @ 09:05 by Brenda Weber) Hepatitis High cholesterol Restless legs Back pain Difficulty swallowing History of ulceration Gastric reflux History of renal disease BiPAP (biphasic positive airway pressure) dependence History of pain when walking History of CHF (congestive heart failure) Bilateral carotid bruits 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 Wears partial dentures Wears glasses Post-menopausal Cancer Depression Anxiety Thyroid disease Arthritis History of echocardiogram History of stress test Hypertension History of heart attack History of atrial fibrillation Former smoker Personal history of skin cancer Neoplasm of skin of ear ELODIA (obstructive sleep apnea) High triglycerides Allergies Alcohol abuse IBS (irritable bowel syndrome) Bipolar 1 disorder TIA (transient ischemic attack) Chronic diastolic (congestive) heart failure Essential (primary) hypertension Non-rheumatic tricuspid valve insufficiency Atherosclerosis of coronary artery of [place] heart with angina pectoris Basal cell carcinoma of neck GERD (gastroesophageal reflux disease) Osteoarthritis Fibromyalgia Seizure disorder Post traumatic stress disorder (PTSD) Hyperlipidemia Home Medications ?Medication ?Instructions ?Recorded ?Last Taken ?Type aspirin 81 mg chewable tablet 81 mg PO DAILY@0800 ANTI PLATELET 09/24/16 05/28/25 History cyclobenzaprine 5 mg tablet 5 mg PO PRN PRN Muscle Diana n 05/06/22 05/27/25 History calcium carbonate-vitamin D3 500 1 cap PO DAILY 05/28/25 History mg (1,250 mg)-50 unit capsule duloxetine 60 mg capsule,delayed 60 mg PO DAILY 05/28/25 History release nitroglycerin 0.4 mg sublingual See Rx Instructions .R oute 03/30/23 Unknown Rx tablet .COMPLEX #25 tabs metoprolol tartrate 25 mg tablet 25 mg PO BID #180 tab s 11/23/24 05/28/25 Rx spironolactone 25 mg tablet 25 mg PO DAILY #90 tabs 05/28/25 Rx (Aldactone) levothyroxine 50 mcg tablet 50 mcg PO QDAY 12/15/24 History pantoprazole 20 mg tablet,delayed 20 mg PO QDAY #90 ta bs 12/19/24 05/28/25 Rx release rosuvastatin 40 mg tablet (Crestor) 40 mg PO QDAY #90 tabs 12/19/24 05/28/25 Rx ticagrelor 90 mg tablet (Brilinta) 90 mg PO BID #180 t abs 01/19/25 05/28/25 Rx amlodipine 10 mg tablet 10 mg PO DAILY #90 tabs 01/1905/28/25 Rx fluticasone propionate 50 1 spray intranasal QDAY 11/1905/27/25 History mcg/actuation nasal spray,suspension (Flonase Allergy Relief) famotidine 40 mg tablet 40 mg PO QDAY PRN gerd 05/10 Unknown History lactobacillus combination no.9 4 4,000 mmu cells PO QD AY 05/10/25 05/28/25 History billion cell capsule (Adult 50 Plus Probiotic) multivitamin 1 tab PO QDAY 05/10/2505/28 History buspirone 15 mg tablet 15 mg PO TID 05/28/25 History estradiol 0.01% (0.1 mg/gram) 1 appful vaginal MOFR Unknown History vaginal cream Allergy/AdvReac Type Severity Reaction Status Date / Time adhesive tape Allergy Rash Verified 06/15/25 08:44 doxazosin Allergy DROPS Verified 06/15/25 08:44 HEART RATE furosemide (From Lasix) Allergy Itching Verified 06/15/25 08:44 latex Allergy Rash Verified 06/15/25 08:44 lisinopril Allergy Angioedema Verified 06/15/25 08:44 codeine AdvReac Itching Verified 06/15/25 08:44 oxycodone HCl (From Percocet) AdvReac Itching Verified 06/15/25 08:44 tramadol HCl (From Ultram) AdvReac Itching Verified 06/15/25 08:44 Family History Father CAD (coronary artery disease) Hypertension Mother CAD (coronary artery disease) Hypertension Colon cancer Sister Hypertension Other Alcoholism Anxiety Arthritis Depression Heart disease Surgical History (Updated 06/15/25 @ 09:05 by Brenda Weber) Hx of colonoscopy History of excision of lesion Hx of surgical procedure History of coronary artery stent placement Hx of foot surgery Hx of foot surgery History of esophagogastroduodenoscopy (EGD) History of basal cell carcinoma excision History of left heart catheterization (03/25/20) H/O coronary artery bypass surgery (10/21/07) Social History Smoking Status: Former smoker alcohol intake: former details: Participates in AA substance use type: does not use caffeine: No what type of physical activity do you participate in: walking seatbelt use: always do you feel safe at home: Yes additional social history: disability- retired Does Take Aspirin As Needed Does Not Take Ibuprofen Audit: Pertinent Findings Pertinent Findings Stress test pertinent findings: 02/12/2025. EF is 62%. No significant reversibility is noted to suggest ischemia. Patient achieved a maximum workload of 10.1 METS. Echo (EF%) pertinent findings: 01/18/2025. EF of 55%. PASP is 32 mmHg. No aortic stenosis noted. Heart catheterization pertinent findings: 05/02/2024. Successful IVUS guided PCI of ostial left main with a JATIN. Additional JATIN placed to the mid LAD. Successful PCI of the proximal to mid L circumflex with deployment of 2 overlapping JATIN stents. 05/01/2024. EF is 60%. Left main with a 90% ostial stenosis. Circumflex is total proximal occlusion. RCA previously stented with mild proximal stenosis i n-stent. VARGAS to the mid LAD is atretic. SVG to the first OM not found. Consult pertinent findings: 05/10/2025. Dr. Lemus. 1. Coronary artery stent placement-status post stents x 4. This appears stable. Continue current medical therapy. 2. History of coronary artery bypass surgery-appears stable. 3. Chronic diastolic congestive heart failure-latest echo shows EF of 59%. 3. [id number]. Recommendation Anesthesia Recommendation Anesthesia recommendation: OPTIMIZED for anesthesia
[2025-06-22] VITALS (7 sets, daily range): BP systolic 101–146; BP diastolic 52–58; PULSE 53–60; RESP 16–18; TEMP 35.9–36.4; O2SAT 97–100; BMI 27.8
--- OUTSIDE RECORDS SUMMARY | 2025-06-22 06:55 | XMS RPT_ITS | CCD ---
Author Organization [facility] Care Team Providers Care Solids Control Technician Name Role Phone Lyons, Sejal Unavailable Unavailable Roof SQL ARCHITECT, Carrington H Unavailable Roof SQL ARCHITECT, Carrington H Unavailable Lyons, Sejal Unavailable Unavailable Lyons, Sejal Unavailable Unavailable Lyons, Sejal Unavailable Unavailable Moises Muniz (Res) Primary Care Provider Unavail able Dr. Teresa Boggs Primary Care Provider Dr. Teresa Boggs Referring Provider [phone] Silvino SQL ARCHITECT, SQL ARCHITECT-C Sharla Attending Provider Dr. Teresa Boggs Primary Care Provider Dr. Teresa Boggs Referring Provider Dr. Christian Reynolds Attending Provider [phone] Dustin Lemus Attending Provider Dr. Carlos Peoples Attending Provider [phone] Dr. Carlos Peoples Other Provider Dr. Carlos Peoples Referring Provider Dr. Carlos Peoples Referring Provider Luis HOWE, SQL ARCHITECT-C Lia Rizo Attending Provider Dr. Teresa Boggs Primary Care Provider Dr. Teresa Boggs Referring Provider [phone] Carlos Peoples Attending Provider [phone] Dustin Lemus Attending Provider [phone] Carlos Peoples Referring Provider [phone] Dr. Carlos Peoples Other Provider Luis SQL ARCHITECT, SQL ARCHITECT-C Lia Rizo Attending Provider Flakita, Dr. Moore Primary Care Provider Flakita, Dr. Moore Referring Provider Dr. Carlos Peoples Attending Provider [phone] Darshana Espinoza Attending Provider Unavailable Friend, Dr. Arenas Attending Provider [phone] Rip, Dr. Arenas Other Provider [phone] Flakita, Dr. Moore Primary Care Provider Flakita, Dr. Moore Referring Provider Silvino SQL ARCHITECT, SQL ARCHITECT-C Sharla Attending Provider Flakita, Dr. Moore Primary Care Provider [phone] Flakita, Dr. Moore Referring Provider JENNY Marcano Attending Provider Dr. Teresa Boggs Primary Care Provider [phone] Teresa Boggs Referring Provider JENNY Marcano [...] Provider [phone] Quinton Garcia Attending Provider Dr. Teresa Boggs DO Attending Provider [phone] Teresa Boggs DO Primary Care Provider Flakita WILLIS, Dr. Moore Referring Provider Ana Marcano Attending Provider Flakita WILLIS, Dr. Moore Primary Care Provider [phone] Allan METCALF, Dr. Chan Attending Provider Allan METCALF, Dr. Chan Referring Provider Ana Marcano Referring Provider Flakita WILLIS, Dr. Moore Primary Care Provider Allan METCALF, Dr. Chan Attending Provider Allan METCALF, Dr. Chan Referring Provider Dixie SQL ARCHITECT-C, Carly Urena Attending Provider Dixie SQL ARCHITECT-C, Carly Urena Referring Provider Dixie SQL ARCHITECT-C, Carly Urena Other Provider Aiden WILLIS, Dr. Garcia Attending Provider Flakita WILLIS, Dr. Moore Primary Care Provider [phone] Flakita WILLIS, Dr. Moore Referring Provider Dr. Dustin Lemus MD Attending Provider Dr. Dustin Lemus MD Referring Provider Flakita WILLIS, Dr. Moore Primary Care Provider [phone] Flakita WILLIS, Dr. Moroe Attending Provider Flakita DO, Dr. Moore Referring Provider Flakita WILLIS, Dr. Moore Primary Care Provider Flakita WILLIS, Dr. Moore Referring Provider Flakita WILLIS, Dr. Moore Attending Provider Dr. Dustin Lemus MD Attending Provider Dr. Dustin Lemus MD Referring Provider Flakita WILLIS, Dr. Moore Primary Care Provider Ana Marcano Attending Provider [phone] Flakita WILLIS, Dr. Moore Referring Provider Flakita WILLIS, Dr. Moore Attending Provider Flakita WILLIS, Dr. Moore Primary Care Provider [phone] Allan METCALF, Dr. Chan Attending Provider [phone] Allan METCALF, Dr. Chan Referring Provider Flakita WILLIS, Dr. Moore Primary Care Provider Mundo Doty Attending Provider [phone] Mundo Doty Referring Provider Flakita WILLIS, Dr. Moore Primary Care Provider Allan METCALF, Dr. Chan Attending Provider [phone] Allan METCALF, Dr. Chan Referring Provider Flakita WILLIS, Dr. Moore Referring Provider Carly Palacios Attending Provider Mundo Doty Other Provider Flakita WILLIS, Dr. Moore Primary Care Provider Allan METCALF, Dr. Chan Attending Provider [phone] Dr. Dustin Lemus MD Referring Provider Flakita WILLIS, Dr. Moore Referring Provider Flakita WILLIS, Dr. Moore Attending Provider Flakita WILLIS, Dr. Moore Primary Care Provider Carly Palacios Referring Provider Carly Palacios Attending Provider Teresa Boggs Primary Care Unavailable Dustin Lemus Attending Unavailable Dustin Lemus Referring Unavailable Ana Marcano Attending Unavail able Teresa Boggs Primary Care Unavailable Malys, Teresa Referring Unavailable Rufener, Carly M Attending Unavailable Malys, Teresa Primary Care Unavailable Malys, Teresa Referring Unavailable Malys, Teresa Primary Care Unavailable Malys, Teresa Referring Unavailable Malys, Teresa Attending Unavailable Rufener, Carly M Referring Unavailable Rufener, Carly M Attending Unavailable Malys, Teresa Primary Care Unavailable Rufener, Carly M Referring Unavailable Rufener, Carly M Attending Unavailable Malys, Teresa Primary Care Unavailable Malys, Teresa Primary Care Unavailable Demiter, Mundo Referring Unavailable Demiter, Mundo Attending Unavailable Rufener, Carly M Referring Unavailable Brown, Jose Attending Unavailable Malys, Teresa Primary Care Unavailable Malys, Teresa Primary Care Unavailable Allan, [place] Attending Unavailable Allan, [place] Referring Unavailable Malys, Teresa Primary Care Unavailable Allan, [place] Attending Unavailable Allan, Dustin Referring Unavailable Rufener, Carly M Attending Unavailable Rufener, Carly M Referring Unavailable Malys, Teresa Primary Care Unavailable Malys, Teresa Primary Care Unavailable Allan, Dustin Attending Unavailable Allan, Dustin Referring Unavailable Malys, Teresa Primary Care Unavailable Allan, [place] Attending Unavailable Malys, Teresa Primary Care Unavailable Allan, Dustin Referring Unavailable Allan, [place] Attending Unavailable Rufener, Carly M Consulting Unavailable Rufener, Carly M Referring Unavailable BrownJose Attending Unavailable Malys, Teresa Primary Care Unavailable Malys, Teresa Primary Care Unavailable Rufener, Carly M Attending Unavailable Malys, Teresa Referring Unavailable Malys, Teresa Primary Care Unavailable Allan, [place] Referring Unavailable Allan, Dustin Attending Unavailable Malys, Teresa Primary Care Unavailable Malys, Teresa Attending Unavailable Ana Marcano Referring Unavail able Malys, Teresa Primary Care Unavailable Ana Marcano Attending Unavail able Malys, Teresa Primary Care Unavailable Malys, Teresa Referring Unavailable Malys, Teresa Attending Unavailable Malys, Teresa Primary Care Unavailable Allan, [place] Referring Unavailable Allan, Dustin Attending Unavailable Malys, Teresa Primary Care Unavailable Allan, Dustin Referring Unavailable Allan, [place] Attending Unavailable Malys, Teresa Primary Care Unavailable Allan, Dustin Referring Unavailable Allan, Dustin Attending Unavailable Malys, Teresa Primary Care Unavailable Quinton Garcia Attending Unavailable Malys, Teresa Referring Unavailable Malys, Teresa Primary Care Unavailable Ashu SQL ARCHITECT, Carrington Otto Attending Unavailable Malys, Teresa Referring Unavailable RuCarly osullivan Attending Unavailable Malys, Teresa Referring Unavailable Malys, Teresa Primary Care Unavailable Malys, Teresa Primary Care Unavailable Demiter, Mundo Consulting Unavailable Allan, Dustin Attending Unavailable Demiter, Mundo Referring Unavailable Malys, Teresa Primary Care Unavailable Allan, Dustin Referring Unavailable Allan, Dustin Attending Unavailable Malys, Teresa Primary Care Unavailable Allan, [place] Attending Unavailable Allan, Dustin Referring Unavailable Malys, Teresa Primary Care Unavailable Malys, Teresa Attending Unavailable Malys, Teresa Referring Unavailable Malys, Teresa Primary Care Unavailable Malys, Teresa Attending Unavailable Malys, Teresa Referring Unavailable Malys, Teresa Attending Unavailable Malys, Teresa Primary Care Unavailable Malys, Teresa Referring Unavailable Carly Colin Referring Unavailable Carly Colin Attending Unavailable Malys, Teresa Primary Care Unavailable Malys, Teresa Primary Care Unavailable Allan, [place] Attending Unavailable Allan, Dustin Referring Unavailable Malys, Teresa Primary Care Unavailable Allan, [place] Referring Unavailable Allan, [place] Attending Unavailable Malys, Teresa Primary Care Unavailable Allan, Dustin Referring Unavailable Allan, Dustin Attending Unavailable Malys, Teresa Primary Care Unavailable Allan, [place] Attending Unavailable Allan, Dustin Referring Unavailable Malys, Teresa Primary Care Unavailable Allan, Dustin Attending Unavailable Allan, [place] Referring Unavailable Allergies Allergy Classification Reported Allergen(s) Allergy Type Date of Onset Reaction(s) Facility Acetaminophen / oxyCODONE (1 source) Acetaminophen / oxyCODONE Drug Allergy 1 Rash [facility] Adhesive Tape (1 source) Adhesive Tape Substance Allergy 8 [facility] Furosemide (1 source) Furosemide Drug Allergy 1 Itching [facility] Opioid Agonists (2 sources) Codeine Drug Allergy 7 Rash, GI Upset [facility] (6 sources) acetaminophen drug allergy 3 rash [facility] Work Phone: (6 sources) acetaminophen / oxyCODONE drug allergy 3 rash [facility] Work Phone: [phone] (20 sources) Adhesive Tape; Translations: [ADHESIVE TAPE] allergy to substance 2 Rash [facility] Work Phone: (8 sources) Angiotensin Converting Enzyme (Nichloas) Inhibitors drug allergy 8 Angioedema [facility] Work Phone: [phone] (6 sources) apis mellifera venom; Translations: [BEE STINGS] allergy to substance 4 [facility] Work Phone: [phone] (20 sources) codeine; Translations: [codeine] drug allergy 3 Itching [facility] Work Phone: [phone] (20 sources) doxazosin; Translations: [doxazosin] drug allergy 6 Other [facility] Work Phone: [phone] (6 sources) furosemide drug allergy 3 rash [facility] Work Phone: [phone] (6 sources) traMADol drug allergy 3 [facility] Work Phone: [phone] (20 sources) Furosemide Drug Allergy 2 Itching [facility] (2 sources) Isosorbide Drug Allergy 1 Dizzy, not feeling well [facility] Work Phone: (20 sources) Latex Allergy to substance 2 Rash [facility] (20 sources) Lisinopril Drug Allergy 2 Angioedema [facility] (20 sources) oxyCODONE; Translations: [oxycodone HCl] Drug Allergy 2 Itching [facility] (20 sources) traMADol; Translations: [tramadol HCl] Drug Allergy 2 Itching [facility] (2 sources) bee venom Allergy to substance 4 Anaphylaxis [facility] (2 sources) Furosemide Drug Allergy 4 Itching [facility] (2 sources) Latex Allergy to substance 4 Rash, Other [facility] (1 source) Furosemide Drug Allergy 5 [facility] (1 source) Latex Drug allergy (disorder) 5 [facility] (1 source) Lisinopril Drug Allergy 5 [facility] Medications Current Medications Medication [...] 81 MG tablet,chewable Active 81 mg PO DAILY@799September 24, 2016 12:00am ANTIPLATELET Start: 02-03-2014 End: 06-17-2016 take 1 tablet by mouth once daily Aspirin 81 MG Tab.Chew Discontinued 81 mg PO DAILY@799February 03, 2014 12:00am June 17, 2016 3:15pm Start: 10-19-2012 take 1 tablet by augusto th once daily ASPIRIN 81 MG TABS One tablet by mouth daily ASPIRIN [id number] Teresa Boggs DO Start: 10-19-2012 take 1 tablet by augusto th once daily ASPIRIN 81 MG TABS One tablet by mouth daily ASPIRIN [id number] Lilly Andersen RN Start: 03-08-2007 End: 05-04-2024 [...] Carbonate-Vitamin D3 500 mg(1,250mg) -50 unit capsule (18 sources) Start: 06-08-2022 Calcium Carbonate-Vitamin D3 500 [...] 2019 9:03am Duloxetine 60 mg capsule,delayed release(DR/EC) (18 sources) Start: 07-10-2022 take 1 capsule by [...] weeks then 2 times per week thereafter. famotidine 40 mg oral tablet (1 source) Histamine-2 Receptor Antagonist Start: 03-02-2025 take 1 tablet by mouth once daily Famotidine 40 mg tablet Active 40 mg PO daily March 02, 2025 12:00am fluticasone propionate 0.05 mg/actuat metered dose nasal spray (1 source) Corticosteroid Start: 03-02-2025 take 50 ug nasal route once daily Fluticasone Propionate (Flonase Allergy Relief) 50 mcg/actuation spray,suspension Active 1 NMA INTRANASAL daily March 02, 2025 12:00am administer into each nostril Lactobacil-Fructooli gos-Pectin (13 sources) Start: 06-08-2022 take 1 capsule by mouth once daily Lactobacil-Fructool igos-Pectin Active 1 CAP PO DAILY June 08, 2022 1:00am Start: 06-08-2022 take 1 capsule by mouth once daily Pwhwxkivqv-Hlvbwiwkrylo-Ugufci Active 1 CAP PO DAILY June 08, 2022 12:00am Multivitamin With Folic Acid (18 sources) Start: 02-03-2014 take 1 tablet by mouth once daily Multivitamin With Folic Acid Active 1 TABLET PO DAILY February 02, 2014 11:00pm Start: 02-03-2014 take 1 tablet by augusto th once daily Multivitamin With Folic Acid Active 1 TABLET PO DAILY February 03, 2014 12:00am [place]-3 Fatty Acids (18 sources) Start: 10-20-2015 take 1500 mg by mout h once daily [place]-3 Fatty Acids Active 1500 MG PO DAILY October 19, 2015 11:00pm Start: 10-20-2015 take 1500 mg by mouth once maureen ly [place]-3 Fatty Acids Active 1500 MG PO DAILY [...] THYROID 75 mcg t,th 50 mcg leslie urena f,radha overton Start: 10-26-2012 take 1 tablet by augusto th every other day, then take 75 ug by mouth LEVOTHYROXINE SODIUM 50 MCG TABS 50 mcg by mouth every other day alt with 75 mcg LEVOTHYROXINE SODIUM [id number] Teresa Boggs DO Start: 10-19-2012 End: 07-10-2021 take 1 tablet by mouth once daily Levothyroxine 50 MCG tablet Discontinued 50 ug PO DAILY February 03, 2014 12:00am July 10, 2021 12:16pm THYROID Start: 10-19-2012 take 1 tablet by augusto th every other day LEVOTHYROXINE SODIUM 75 MCG TABS one tablet by mouth every other day alternate with 50mcg LEVOTHYROXINE SODIUM [id number] Teresa Boggs DO Start: 08-29-2007 End: 10-03-2007 [...] tablets by mouth daily as needed ACETAMINOPHEN [id number] Teresa Boggs DO acetaminophen 325 mg / [...] 1 TABLET PO EVERY 6 HOURS 28 July 15, 2022 July 30, 2022 11:01am 28 tabs (twenty-eight) ALBUTEROL SULFATE (12 sources) beta2-Adrenergic Agonist Start: 09-10-2015 End: 04-03-2016 VENTOLIN HFA 108 (90 Base) MCG/ACT AERS 2 puffs inhaled every 4-6 hours as needed ALBUTEROL SULFATE [id number] Teresa Boggs DO Start: 09-10-2015 End: 04-03-2016 VENTOLIN HFA 108 (90 Base) M CG/ACT AERS 2 puffs inhaled every 4-6 hours as needed ALBUTEROL SULFATE [id number] Braeden Jones [employer]C Start: 09-10-2015 VENTOLIN HFA 1 08 (90 Base) MCG/ACT AERS 2 puffs inhaled every 4-6 hours as needed ALBUTEROL SULFATE [id number] Teresa Boggs DO aluminum hydroxide 40 mg/ml [...] One tablet by mouth daily AMIODARONE HCL [id number] Braeden Jones [employer]-C amLODIPine 10 mg oral tablet (20 sources) Dihydropyridine Calcium Channel Jocelynn Start: 02-03-2014 End: 02-01-2025 take 1 tablet by mouth once daily Amlodipine 10 mg tablet Discontinued 10 mg PO DAILY 90 3 January 31, 2025 8:40am February 01, 2025 8:19am Start: 08-29-2007 End: 08-01-2013 take 1 tablet by mouth once daily NORVASC 10 MG TABS One tablet by mouth daily AMLODIPINE BESYLATE [id number] Dustin Lemus MD Comment on above: Take one(1) tablet d aily. amoxicillin 875 mg / clavulanate 125 mg oral tablet (18 sources) Penicillin-class Antibacterial Start: 07-20-19 End: 07-30-19 Amoxicillin-Pot Clavulanate 875-125 mg tablet Discontinued 1 {tbl} PO Q12H 20 10 July 20, 2024 1:00am July 29, 2024 1:00am July 30, 2024 1:11am Acute sinusitis, unspecified atenolol 100 mg oral tablet (1 source) beta-Adrenergic Jocelynn Start: 08-29-19 End: 07-18-19 ATENOLOL 100 MG TAB Indications: Essential hypertension, benign Take one(1) tablet daily. 30 5 08/29/2007 07/18/2010 Discontinued Comment on above: Take one(1) tablet d aily. azithromycin 250 mg oral tablet (18 sources) Macrolide Antimicrobial Start: 07-20-19 End: 09-08-19 take 2-5 tablets by mouth once daily Azithromycin 250 mg tablet Discontinued 0 PO .COMPLEX 6 0 July 20, 2024 1:00am September 07, 2024 7:59am take 500 mg today (day 1), then 250 mg for 4 days (days 2-5) PO benzonatate 100 mg oral capsule (18 sources) Non-narcotic Antitussive Start: 07-20-19 End: 12-16-19 [...] 05-26-2023 take 3 tablets by mo [facility] three times daily Buspirone 5 mg tablet [...] by mouth three times daily BUSPIRONE HCL [id number] Dustin Lemus MD Start: 08-29-2007 End: 06-05-2011 BUSPIRONE 10 MG TAB Indicati ons: Essential hypertension, benign , Anxiety state, unspecified Take one(1) tablet two(2) times daily. 60 5 08/29/2007 06/05/2011 Discontinued (Discontinued by Patient) take 1 tablet by augusto three times daily busPIRone (Buspar) 15 MG [...] (12 sources) Nonsteroidal Anti-inflammatory Drug Start: 10-20-19 End: 07-25-19 take 1 tablet by mouth once daily CELEBREX 200 MG CAPS One tablet by mouth daily CELECOXIB [id number] Lilly Andersen RN cephalexin 500 mg oral capsule (18 sources) Cephalosporin Antibacterial Start: 12-31-19 End: 01-06-20 take 1 capsule by mouth every twelve hours Cephalexin 500 mg capsule Discontinued 500 mg PO Q12H December 31, 2023 12:00am January 09, 2024 [...] sources) Lincosamide Antibacterial Start: 07-15-19 End: 07-21-19 23 take 1 capsule by [...] tablet (12 sources) alpha-Adrenergic Jocelynn Start: 08-07-19 15 End: 11-15-19 take 1 tablet by mouth once daily CARDURA 2 MG TABS One tablet by mouth daily DOXAZOSIN MESYLATE [id number] Dustin Lemus MD DULoxetine 60 mg delayed [...] One tablet by mouth daily DULOXETINE HCL [id number] Teresa Boggs DO Start: 10-26-2012 take 3 tablets by mo ut once daily CYMBALTA 30 MG CPEP Three tablets by mouth daily DULOXETINE HCL [id number] Dustin Lemus MD Start: 10-19-2012 take 1 tablet by augusto th twice daily CYMBALTA 60 MG CPEP One tablet by mouth twice daily DULOXETINE HCL [id number] Lilly Andersen RN EPINEPHRINE (20 sources) alpha-Adrenergic Agonist, beta-Adrenergic Agonist, Catecholamine Start: 01-23-2014 End: 02-28-2014 EPIPEN 2-RITA 0.3 MG/0.3ML SOAJ use as directed EPINEPHRINE [id number] Teresa Boggs DO Start: 01-23-2014 EPIPEN 2-RITA 0 .3 MG/0.3ML SOAJ use as directed EPINEPHRINE [id number] Teresa Boggs DO Start: 01-23-2014 End: 02-28-2014 EPIPEN 2-RITA 0.3 MG/0.3ML SO AJ use as directed EPINEPHRINE [id number] Sun Ritchie MD Start: 01-23-2014 EPIPEN 2-RITA 0 .3 MG/0.3ML SOAJ use as directed EPINEPHRINE [id number] Sun Ritchie MD fish oil (18 sources) Start: 11-15-2015 take 1 tablet by augusto th once daily FISH OIL CAPS One tablet by mouth daily OMEGA-3 FATTY ACIDS CAPS [id number] Dustin Lemus MD Start: 10-19-2012 take 1 tablet by augusto th once daily FISH OIL CAPS One tablet by mouth daily OMEGA-3 FATTY ACIDS CAPS [id number] Lilly Andersen RN Start: 10-19-2012 End: 10-26-2012 take 1 tablet by mouth once daily FISH OIL CAPS One tablet by mouth daily OMEGA-3 FATTY ACIDS CAPS [id number] Dustin Lemus MD 250 ml heparin sodium, [...] daily ISOSORBIDE MONONITRA TE ER 30 MG [id number] One tablet by mouth daily ISOSORBIDE MONONITRATE [id number] Dustin Lemus MD Start: 04-19-2013 take 1 tablet by mouth once da angelique IMDUR 30 MG [id number] One tablet by mouth daily ISOSORBIDE MONONITRATE Dustin Rakesh Lemus MD isosorbide dinitrate 40 mg extended [...] 2018 10:20am L.Acidoph,Paracasei,B.Animal is 1 EACH capsule (18 sources) Start: 08-08-2017 End: 03-08-2018 take 1 [...] CAP PO DAILY July 15, 2022 12:00am Shuxmjpomp-Nizfsyrrcgyr-Bgqb in 100-500-50 mg capsule (18 sources) Start: 06-08-2022 End: 03-28-2024 take 1 capsule by mouth once daily Twzrlqrjrj-Kmnqtywxbzka-Vfuatm 100-500-50 mg capsule Discontinued 1 NMA PO [...] One tablet by mouth twice daily LEVETIRACETAM [id number] Dustin Lemus MD liothyronine sodium 0.005 mg oral tablet (20 sources) l-Triiodothyronine Start: 05-06-2022 End: 03-28-2024 Liothyronine 5 mcg tablet Discontinued 5 ug PO SUMOWEFRMay 06, 2022 1:00am March 28, 2024 10:14am [...] tablet by mouth daily as needed LORATADINE [id number] Teresa Boggs, LORazepam 1 mg oral tablet (1 source) [...] 25 mg PO TWICE A DAY 180 November 22, 2024 9:42am November 23, 2024 [...] tablet by mouth twice daily METOPROLOL TARTRATE [id number] Teresa Boggs DO Start: 10-19-2012 take 1 tablet by augusto th twice daily METOPROLOL TARTRATE 50 MG TABS One tablet by mouth twice daily METOPROLOL TARTRATE [id number] Dustin Lemus MD mirtazapine 15 mg oral tablet (12 sources) Start: 10-26-2012 End: 02-28-2014 take 1 tablet by mouth once daily REMERON 15 MG TABS One tablet by mouth daily MIRTAZAPINE [id number] Dustin Lemus MD MULTIPLE VITAMIN (4 sources) Start: 10-19-2012 take 1 tablet by mouth once daily MULTIVITAMINS TABS One tablet by mouth daily MULTIPLE VITAMIN [id number] Teresa Boggs DO Start: 10-19-2012 take 1 tablet by augusto th once daily MULTIVITAMINS TABS One tablet by mouth daily MULTIPLE VITAMIN [id number] Lilly Andersen RN MULTIPLE VITAMIN (8 sources) Start: 10-19-2012 take 1 tablet by mouth once daily MULTIVITAMINS TABS One tablet by mouth daily MULTIPLE VITAMIN [id number] Teresa Boggs DO Start: 10-19-2012 take 1 tablet by augusto th once daily MULTIVITAMINS TABS One tablet by mouth daily MULTIPLE VITAMIN [id number] Lilly Andersen RN multivitamin ORAL Tab (1 source) Start: 03-08-2007 take 1 tablet by mouth once daily multivitamin ORAL Tab Take one(1) tablet daily. 0 03/08/2007 Active Comment on above: Take one(1) tablet d leigh ann. Multivitamin With Folic Acid 1 TABLET tablet (18 sources) Start: 02-03-2014 End: 03-28-2024 take 1 [...] tablet by mouth twice daily NITROFURANTOIN MACROCRYSTAL [id number] Sun Ritchie MD 24 hr nitroglycerin 0.6 [...] mg tablet, sublingual Active 0 .ROUTE .COMPLEX 25 March 30, 2023 1:49pm DISSOLVE 1 TABLET UNDER THE TONGUE EVERY 5-15 MINUTES NEEDED FOR CHEST PAIN Start: 07-24-2014 End: 03-30-2023 Nitroglycerin 0.4 mg tablet, sublingual Discontinued 0.4 mg SL every 5 to 15 minutes as needed for Chest Pain 25 6 July 02, 2021 4:25pm March 30, 2023 1:49pm nystatin 100 unt/mg topical powder (20 sources) Polyene Antifungal Start: 07-24-2014 End: 12-11-2014 NYSTATIN [id number] UNIT/ML SUSP 5ml j[place] and swallow 4 times daily NYSTATIN [id number] Sun Ritchie MD Start: 07-24-2014 End: 12-11-2014 NYSTATIN 195735 UNIT/GM POWD apply to affected area 4 times daily NYSTATIN [id number] Sun Ritchie MD Start: 07-24-2014 End: 12-11-2014 NYSTATIN [id number] UNIT/GM POWD apply to affected area 4 times daily NYSTATIN [id number] Teresa Boggs DO [place]-3 Fatty Acids 500 MG capsule (18 sources) Start: 10-20-2015 End: 12-15-2024 take 1 capsule by mouth once daily [place]-3 Fatty Acids 500 MG capsule Discontinued 1500 mg PO DAILY October 20, 2015 12:00am December 15, 2024 9:02am SUPPLEMENT Start: 10-20-2015 End: 12-15-2024 take 1 capsule by mouth once daily [place]-3 Fatty Acids 500 MG capsule Discontinued 1500 mg PO DAILY October 20, 2015 12:00am December 15, 2024 9:02am Start: 10-20-2015 take 1 capsule by mo [facility] once daily [place]-3 Fatty Acids 500 MG capsule Active 1500 [...] in route to bedside. polyethylene glycol 3350 41470 mg powder for oral solution (2 sources) [...] 3 po daily x 5 days PREDNISONE [id number] Lilly Andersen RN QUETIAPINE FUMARATE (12 sources) Atypical Antipsychotic Start: 10-19-2012 End: 10-26-2012 take 1 tablet by mouth once daily at bedtime SEROQUEL XR 50 MG [id number] One tablet by mouth daily at bedtime QUETIAPINE FUMARATE [id number] Lilly Andersen RN Start: 10-19-2012 End: 10-26-2012 take 1 tablet by mouth once daily at bedtime SEROQUEL XR 50 MG [id number] One tablet by mouth daily at bedtime QUETIAPINE FUMARATE [id number] Dustin Lemus MD Start: 10-19-2012 take 1 tablet by augusto th once daily at bedtime SEROQUEL XR 50 MG UC45P-MGV One tablet by mouth daily at bedtime QUETIAPINE FUMARATE [id number] Lilly Andersen RN raNITIdine (12 sources) Histamine-2 Receptor Antagonist Start: 07-24-2014 take 1 tablet by mouth once daily GNP ACID CONTROL [address] 150 MG TABS One tablet by mouth daily RANITIDINE HCL [id number] Teresa Ben Boggs DO Start: 07-24-2014 take 1 tablet by augusto th once daily GNP ACID CONTROL [address] 150 MG TABS One tablet by mouth daily RANITIDINE HCL [id number] Teresa Boggs DO rosuvastatin calcium 40 mg [...] One tablet by mouth daily TRAZODONE HCL [id number] Dustin Lemus MD valACYclovir 1000 mg oral tablet (12 sources) Herpesvirus Nucleoside Analog DNA Polymerase Inhibitor, Herpes Simplex Virus Nucleoside Analog DNA Polymerase Inhibitor, Herpes Zoster Virus Nucleoside Analog DNA Polymerase Inhibitor Start: 10-18-2015 End: 11-06-2015 take 1 tablet by mouth three times daily VALACYCLOVIR HCL 1 GM TABS 1 po Three times a day x 7 days VALACYCLOVIR HCL [id number] Teresa Boggs, DO Problems Active Problems Problem [...] [Fatigue] Onset: 02-06-2015 02-06-2015 Episodic Menopausal disorders (18 sources) Atrophy of vagina; 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-02-2024 Chronic Mood disorders (2 sources) Depressive [...] [Bilateral osteoarthritis of knees] 05-24-2013 Chronic Other circulatory disease (20 sources) Carotid bruit; Translations: [Cardiovascular stress test abnormal] Onset: 10-19-2012 Resolved: 11-06-2015 10-19-2012 Episodic Other circulatory disease (20 sources) Orthostatic hypotension; Translations: [Orthostatic hypotension] 02-19-2018 Episodic Other congenital anomalies (18 sources) Herniated urinary bladder 02-02-2024 Chronic Comment [...] Translations: [Obstructive sleep apnea (adult) (pediatric)] Onset: 03-22-2025 Chronic Rheumatoid arthritis and related disease (12 [...] [Low back pain] 05-06-2022 Episodic Thyroid disorders (9 sources) Hypothyroidism; Translations: [Hypothyroidism, unspecified] Onset: 06-28-1984 [...] source) 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 - Atherosclerotic heart disease of [place] coronary artery with unspecified angina pectoris,I50.32 - [...] 12-30-2012 Episodic Other aftercare (10 sources) Other termite helper (current) drug therapy; Translations: [Long-term (current) use of other medications] Onset: 10-31-2012 Resolved: 02-06-2015 02-06-2015 Episodic Other aftercare (1 source) Encounter for therapeutic drug level monitoring; Translations: [Encounter for therapeutic drug level monitoring] Onset: 01-09-2025 Episodic Other circulatory disease (4 sources) Femoral bruit; Translations: [Other specified symptoms and signs involving the circulatory and respiratory systems] Onset: 10-31-2015 10-31-2015 Episodic Other circulatory disease (1 source) Other specified symptoms and signs involving the circulatory and respiratory systems; Translations: [Other specified symptoms and signs involving the circulatory and respiratory systems] Onset: 06-07-2024 Episodic Other connective tissue disease (1 source) [...] Test Name Value Interpretation Reference Range Facility Urine Cultureon 04-05-2025 [facility] Culture exhibits no growth. Normal [facility] Comment on above: Performed By: #### L 501.31336, L501.9520, L506.0400, L500.4050 #### [facility] [address] [place], [address] Pulmonary Visit Reporton Pulmonary Visit Report [facility] [place] [address] [place] [address] OFFICE VISIT Date of Service: 03/02/25 MR#: [id number] Acct: [id number] Name: NISSA TROTTER Rep #: [id number] : 1955 Provider: Carly Colin NP Age/Sex: 69/F Location: [facility] Status: Signed Assessment and Plan Assessment and Plan (1) ELODIA (obstructive sleep apnea): Status: Chronic Plan: Patient is using and benefiting from Pap therapy.??? She has excellent control of sleep apnea with use of her BiPAP device. Continue with current settings. I have recommended that she complete a nocturnal oximetry with use of her BiPAP device. At this point I do not have plans to decrease the pressure due to possible aerophagia but I will await the study to make this determination. I have discussed the correlation between nocturnal oxygenation and a mild reduction in the gas transfer seen on PFT. Contact the office for any new or worsening symptoms in the meantime.??? (2) Shortness of breath: Status: Acute Plan: Shortness of breath has dramatically improved. Patient is denying shortness of breath today. No evidence of COPD on the recent PFT. There is a mild gas transfer abnormality that is present and unable to be corrected by anemia. The repeat echocardiogram shows stability in the pulmonary artery systolic pressure. There are some abnormal findings on the echocardiogram and the patient does plan to follow-up with cardiology. The reduction seen in the gas transfer could have been due to history of sleep apnea as well, awaiting nocturnal oximetry to ensure that nighttime oxygenation is well- controlled. Mucous plugging could also cause the gas transfer to be mildly reduced. The patient does have significant allergy symptoms which could be contributing to the mucous plugging, continue to follow with ENT. Plan Details Follow Up: 6-month (LMR) HPI HPI Comments Details: Patient is a 69-year-old female who presents today for evaluation of sleep disordered breathing. She is amatory currently on room air. Since last follow-up she has not required ER or urgent care visit. She has not required the use of oral prednisone or antibiotics. Today patient reports that she has walked 23 miles this week. She feels like her shortness of breath has improved since last follow up. She does use Flonase every morning and receives benefit from it. She is a former smoker, smoking from 1989- 1997 2.5 packs/day and quit cold turkey. She did have influenza in 2017. She also reports that she had pneumonia, 27 years ago in her right lung. She indicates that she did experience a smoker's cough and wheeze when she was smoking but this improved when she quit. She is not utilizing a daily maintenance inhaler. She does not utilize supplemental oxygen. Today she denies shortness of breath and wheeze. She reports that cough will only occur with allergy symptoms. She denies chest pain and chest pressure. She denies fever, chills, body aches. She reports that she feels like she needs to burp but is not always able to do so. She reports compliant use with her PAP device. She reports that she feels rested after using the machine. She does nap on occasion. Nocturia will occur x 2 at the most. She does have a dry mouth on occasion. She will experience headaches after taking medications in the morning. She denies mask leak. 6-minute walk test from 01/31/2025 shows no significant exertional oxygen desaturation, no indication for the use of supplemental oxygen at this time. PFT from November 21, 2024 shows isolated mild reduction in diffusion capacity. She does not have a recent CBC. The echocardiogram from 2022 shows ejection fraction of 60%, stage I diastolic dysfunction with a pulmonary artery pressure of 30 mmHg. Documentation reviewed with patient today includes: Compliance download from February 28, 2025 shows 97% compliant with therapy, using the device 8 hours and 37 minutes nightly average. She is using BiPAP at 12 over 6 cm with a respiratory rate of 12 bpm. She has minimal air leak and AHI is 0.6. CBC from December 15, 2024 shows a normal hemoglobin which does not correct the DLCO from the previous PFT in October. Echocardiogram from January 18, 2025 shows a pulmonary artery systolic pressure of 32 mmHg. Left ventricular ejection fraction is 55%, stage I diastolic dysfunction. [place] is akinetic. Mild 1+ eccentric mitral valve insufficiency. Moderate 2+ tricuspid valve insufficiency. Cannot completely exclude apical thrombus small. Intake Vital Signs 12/15/24 05:57 03/02/25 07:44 Height 5 ft 1.5 in 5 ft 1.5 in Weight: 150 lb BMI 27.8 BP 123/70 H Blood Pressure Location Rt brachial Position Sitting Respiration 18 Pulse 59 L Pulse Source Monitor Temp 97.2 F L Temperature Source Temporal Artery (more content not included)... Normal [facility] Cardiovascular stress test r eportOrdered By: Dustin Lemus on 02-12-2025 Study report [facility] Services [address] [place] [address] MR#: [id number] Acct: [id number] Name: NISSA TROTTER Rep #: [id number] : 1955 69 From: Dustin Lemus MD Primary Care: Dr. Teresa Boggs, DO Status: REG CLI Referring Dr: Mundo Tucker Sex: F C Stress Test Report Exercise myocardial perfusion stress test. 69-year-old lady with a history of abnormal echocardiogram. Stress protocol: Resting EKG demonstrates normal sinus rhythm with a rate of 62 bpm. Inferior lateral T wave inversions are noted. Occasional premature ventricular complexespresent. Resting blood pressure is 142/74 mmHg. The patient exercised accordingto the regular Gold protocol for a total duration of 8 minutes and 10 seconds attaining a maximum heart rate of 126 bpm which was 84% of maximum predicted heart rate; the maximum workload was 10.1 metabolic equivalents. At rest there were no ST or T wave changes noted to suggest ischemia and at peak exercise upsloping ST changes only were noted which did not meet the criteria for ischemia. No clinical angina was noted but mild shortness of breath was noted and then during recovery there was a burning sensation under her left breast. The test was terminated due to the target heart rate being achieved/fatigue. Thepeak blood pressure was 172/70 mmHg. Rate-pressure product was 21,100. Myocardial perfusion protocol. 12.1 mCi of technetium 99m sestamibi was injected at rest. The patient exercisedaccording to regular Gold protocol for total duration of 8 minutes and 10 seconds and at peak exercise 36 mCi of technetium 99m sestamibi was injected stress images were obtained stress and rest images were reconstructed in comparing the short axis vertical long and horizontal long axis. Gated images were also obtained. Perfusion SPECT analysis: Review of the stress images demonstrate normal uptake of tracer noted in all areas of the myocardium. There was an area at the apex with reduced perfusion present. The rest images demonstrate a similar pattern with reduced perfusion noted at the apex. 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 No significant reversibility is noted suggest ischemia. Gated SPECT analysis: The gated ejection fraction is 62%. Conclusion: Normal exercise myocardial perfusion stress test at a high workload. Previous apical infarct present 02/12/251835 Date _ Dustin Lemus MD CC: Dr. Teresa Bgogs DO; JENNY Díaz ~ Date Dictated: 02/12/251831 Date Transcribed: 02/12/251831 Manager Cardiac Cath: CO Signed [facility] Work Phone: Stress Reporton 02-12-2025 Stress Report [facility] Cardiovascular Services [address] [place] [address] MR#: [id number] Acct: [id number] Name: NISSA TROTTER Rep #: [id number] : 1955 69 From: Dustin Lemus MD Primary Care: Dr. Teresa Boggs DO Status: R EG CLI Referring Dr: Mundo Tucker Sex: F C Stress Test Report Exercise myocardial perfusion stress test. 69-year-old lady with a history of abnormal echocardiogram. Stress protocol: Resting EKG demonstrates normal sinus rhythm with a rate of 62 bpm. Inferior lateral T wave inversions are noted. Occasional premature ventricular complexes present. Resting blood pressure is 142/74 mmHg. The patient exercised according to the regular Gold protocol for a total duration of 8 minutes and 10 seconds attaining a maximum heart rate of 126 bpm which was 84% of maximum predicted heart rate; the maximum workload was 10.1 metabolic equivalents. At rest there were no ST or T wave changes noted to suggest ischemia and at peak exercise upsloping ST changes only were noted which did not meet the criteria for ischemia. No clinical angina was noted but mild shortness of breath was noted and then during recovery there was a burning sensation under her left breast. The test was terminated due to the target heart rate being achieved/fatigue. The peak blood pressure was 172/70 mmHg. Rate-pressure product was 21,100. Myocardial perfusion protocol. 12.1 mCi of technetium 99m sestamibi was injected at rest. The patient exercised according to regular Gold protocol for total duration of 8 minutes and 10 seconds and at peak exercise 36 mCi of technetium 99m sestamibi was injected stress images were obtained stress and rest images were reconstructed in comparing the short axis vertical long and horizontal long axis. Gated images were also obtained. Perfusion SPECT analysis: Review of the stress images demonstrate normal uptake of tracer noted in all areas of the myocardium. There was an area at the apex with reduced perfusion present. The rest images demonstrate a similar pattern with reduced perfusion noted at the apex. 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 No significant reversibility is noted suggest ischemia. Gated SPECT analysis: The gated ejection fraction is 62%. Conclusion: Normal exercise myocardial perfusion stress test at a high workload. Previous apical infarct present 02/12/251835 Date Dustin Lemus MD CC: Dr. Teresa Boggs, DO; JENNY Díaz Date Dictated: 02/12/251831 Date Transcribed: 02/12/251831 Manager Cardiac Cath: CO Signed Normal [facility] Breast imaging reportOrdered By: Hui Cutler on 02-06-2025 Study report [facility] Imaging Services [address] [place] [address] SCRN MAMM (CAD)W/CONNOR NI MR#: [id number] Acct: [id number] Name: NISSA TROTTER Rep #: [id number] : 1955 F 69 From: Keren Cutler MD PCP: Dr. Teresa Boggs DO Status: REG CLI Study:SCRN MAMM (CAD)W/CONNOR BILAT Date of Exa m: 02/06/25 Exam# [id number] Ordering Dr: Marge Boggs sa, DO EXAM: SCRN MAMM (CAD)W/CONNOR BILAT DATE: [...] be mailed to the patient. Reading Location: [facility] CC: Dr. Teresa Boggs DO ~ Manager Cardiac Cath: Signed [facility] SCRN MAMM (CAD)W/CONNOR BILATo n 02-06-2025 SCRN MAMM (CAD)W/CONNOR BILAT [facility] Imaging Services [address] [place], [place] [address] SCRN MAMM (CAD)W/CONNOR BILAT MR#: [id number] Acct: [id number] Name: NISSA TROTTER Rep #: [id number] : 1955 F 69 From: Hui Cutler MD PCP: Dr. Teresa Boggs DO Status: REG CLI Study: SCRN MAMM (CAD)W/CONNOR BILAT Date of Exam: 01/26 08/22 Exam# [id number] Ordering Dr: Teresa Boggs DO EXAM: SCRN [...] be mailed to the patient. Reading Location: [id number] CC: Dr. Teresa Boggs DO Manager Cardiac Cath: Signed Normal [facility] Echo Complete W/ Contraston 01-18-2025 Echo Complete W/ Contrast [facility] Cardiovascular Services [address] [place] [address] Echo Complete W/ Contrast 01/18/25 1304 MR#: [id number] Acct: [id number] Name: NISSA TROTTER Rep #: [id number] : 1955 69 From: Dustin Lemus MD Attending Dr: Carly Colin, SQL ARCHITECT Status: REG CL I Ordering Dr: Carly Colin SQL ARCHITECT-C Date: 01/18/25 Location: [facility] Sex: F C Admitted: Reason For Study : SOB Procedure This was a 2D Doppler, Color Flow transthoracic echocardiogram. Contrast injection was performed. Exam performed in department. Left Ventricle Normal LV size. The left ventricular ejection fraction is 55 %. Stage 1 diastolic dysfunction. Segmental dysfunction with preserved ejection fraction (see wall motion). [place] : Akinetic. Right Ventricle Normal RV size. [...] Normal LV size. Stage 1 diastolic dysfunction. [place] : Akinetic. Mild (1+) eccentric mitral valve insufficiency. Moderate (2+) tricuspid valve insufficiency. Cannot completely exclude apical thrombus small Ordering Physician: Carly Colin Referring Physician: Teresa Boggs Performed By: Ruslan Perez RCS 01/18/25 1656 Date Dustin Lemus MD CC: Dr. Teresa Boggs DO; Carly Colin NP Date Dictated: 01/18/25 1304 Date Transcribed: 01/18/25 1647 Manager Cardiac Cath: Signed Normal [facility] Echocardiogram study reportO rdered By: Dustin Lemus on 01-18-2025 Study report [facility] Services [address] [place] [address] Echo Complete W/ Contrast 01/18/25 1304 MR#: [id number] Acct: [id number] Name: NISSA TROTTER Rep #:[id number] : 1955 69 From: Dustin Noble Attending Dr: SHYAM Lerma atus: REG CLI Ordering Dr: Carly Colin NP-C Rey e: 01/18/25 Location: [facility] Sex: F C Admitted: Reason For Study : SOB Procedure This was a 2D Doppler, Color Flow transthoracic echocardiogram. Contrast injection was performed. Exam performed in department. Left Ventricle Normal LV size. The left ventricular ejection fraction is 55 %. Stage 1 diastolic dysfunction. Segmental dysfunction with preserved ejection fraction (see wall motion). [place] : Akinetic. Right Ventricle Normal RV size. [...] Normal LV size. Stage 1 diastolic dysfunction. [place] : Akinetic. Mild (1+) eccentric mitral valve insufficiency. Moderate (2+) tricuspid valve insufficiency. Cannot completely exclude apical thrombus small Ordering Physician: Carly Colin Referring Physician: Teresa Boggs Performed By: Ruslan Perez RCS 01/18/25 1656 Date _ Dustin Lemus MD CC: Dr. Teresa Boggs, DO; Carly Colin NP ~ Date Dictated: 01/18/25 1304 Date Transcribed: 01/18/25 1647 Manager Cardiac Cath: Signed [facility] Work Phone: Absolute lymphocyte countOrd ered By: SHYAM Colin on 12-15-2024 Lymphocytes Auto (Unsp spec) [#/Vol] 1.36 10*3/uL 0.83-4.51 [facility] Absolute neutrophil countOrd ered By: SHYAM Colin on 12-15-2024 Neutrophils (Bld) [#/Vol] 7.8 10*3/uL High 2.0-7.7 [facility] Automated lymphocyte count a s percentage of total leukocytesOrdered By: SHYAM Colin on 12-15-2024 Lymphocytes/100 WBC Auto (Unsp spec) 13.5 % Low 19-41 [facility] Basophil percentageOrdered B y: SHYAM Colin on 12-15-2024 Basophils/100 WBC (Bld) 0.4 % 0-1 [facility] CBC W/Diff, Automatedon 11-27 Absolute Lymph 1.36 X10 3/uL Normal 0.83-4.51 [facility] Comment on above: Performed By: #### L 501.12429, L501.9520, L506.0400, L500.4050 #### [facility] [address] [place], [address] Absolute Neut 7.8 X10 3/uL High 2.0-7.7 [facility] Comment on above: Performed By: #### L 501.06590, L501.9520, L506.0400, L500.4050 #### [facility] [address] [place], [address] Basophils/100 WBC (Bld) 0.4 % Normal 0-1 [facility] Comment on above: Performed By: #### L 501.68755, L501.9520, L506.0400, L500.4050 #### [facility] [address] [place], [address] Eosinophils/100 WBC (Bld) 2.1 % Normal 0-5 [facility] Comment on above: Performed By: #### L 501.69716, L501.9520, L506.0400, L500.4050 #### [facility] [address] [place], [address] Erythrocyte distribution width (RBC) [Ratio] 12.4 % Normal 11.6-14.6 [facility] Comment on above: Performed By: #### L 501.02817, L501.9520, L506.0400, L500.4050 #### [facility] [address] [place], [address] Hematocrit (Bld) [Volume fraction] 43.0 % Normal 37-47 [facility] Comment on above: Performed By: #### L 501.95796, L501.9520, L506.0400, L500.4050 #### [facility] [address] [place], [address] Hemoglobin (Bld) [Mass/Vol] 14.4 g/dL Normal 12.0-15.0 [facility] Comment on above: Performed By: #### L 501.58972, L501.9520, L506.0400, L500.4050 #### [facility] [address] [place], [address] IG% 0.400 Normal 0.0-0.9 [facility] Comment on above: Result Comment: IG% - Immature Granulocytes (promyelocytes, myelocytes and metamyelocytes) > 1% indicates that a LEFT SHIFT is Present. Performed By: #### L 501.34671, L501.9520, L506.0400, L500.4050 #### [facility] [address] [place], [address] Lymphocytes/100 WBC (Bld) 13.5 % Low 19-41 [facility] Comment on above: Performed By: #### L 501.85792, L501.9520, L506.0400, L500.4050 #### [facility] [address] [place], [address] MCH (RBC) [Entitic mass] 31.6 pg Normal 27.0-32.0 [facility] Comment on above: Performed By: #### L 501.04294, L501.9520, L506.0400, L500.4050 #### [facility] [address] [place], [address] MCHC (RBC) [Mass/Vol] 33.5 g/dL Normal 32-36 [facility] Comment on above: Performed By: #### L 501.47559, L501.9520, L506.0400, L500.4050 #### [facility] [address] [place], [address] MCV (RBC) [Entitic vol] 94.5 fL Normal 81-99 [facility] Comment on above: Performed By: #### L 501.08730, L501.9520, L506.0400, L500.4050 #### [facility] [address] [place], [address] Monocytes/100 WBC (Bld) 6.5 % Normal 0-10 [facility] Comment on above: Performed By: #### L 501.92526, L501.9520, L506.0400, L500.4050 #### [facility] [address] [place], [address] Neutrophils/100 WBC (Bld) 77.1 % High 47-70 [facility] Comment on above: Performed By: #### L 501.50155, L501.9520, L506.0400, L500.4050 #### [facility] [address] [place], [address] Nucleated RBC (Bld) [#/Vol] 0 10*3/uL Normal 0-5 [facility] Comment on above: Performed By: #### L 501.80507, L501.9520, L506.0400, L500.4050 #### [facility] [address] [place], [address] Platelet mean volume (Bld) [Entitic vol] 10.0 fL Normal 6.2-12.0 [facility] Comment on above: Performed By: #### L 501.98546, L501.9520, L506.0400, L500.4050 #### [facility] [address] [place], [address] Platelets (Bld) [#/Vol] 264 10*3/uL Normal 150-450 [facility] Comment on above: Performed By: #### L 501.23481, L501.9520, L506.0400, L500.4050 #### [facility] [address] [place], [address] RBC (Bld) [#/Vol] 4.55 10*6/uL Normal 4.2-5.4 [facility] Comment on above: Performed By: #### L 501.51056, L501.9520, L506.0400, L500.4050 #### [facility] [address] [place], [address] RDW SD 43.1 fl Normal 35.1-43.9 [facility] Comment on above: Performed By: #### L 501.65139, L501.9520, L506.0400, L500.4050 #### [facility] [address] [place], [address] WBC (Bld) [#/Vol] 10.1 10*3/uL Normal 4.4-11.0 [facility] Comment on above: Performed By: #### L 501.56037, L501.9520, L506.0400, L500.4050 #### [facility] [address] [place], [address] Eosinophil percentageOrdered By: SHYAM Colin on 12-15-2024 Eosinophils/100 WBC (Bld) 2.1 % 0-5 [facility] Erythrocyte distribution wid th ratioOrdered By: SHYAM Colin on 12-15-2024 Erythrocyte distribution width (RBC) [Ratio] 12.4 % 11.6-14.6 [facility] Erythrocyte distribution wid th standard deviationOrdered By: SHYAM Colin on 12-15-2024 Erythrocyte distribution width (RBC) [Ratio] 43.1 fl 35.1-43.9 [facility] Hematocrit Auto (Bld) [Volum e fraction]Ordered By: SHYAM Colin on 12-15-2024 Hematocrit (Bld) [Volume fraction] 43.0 % 37-47 [facility] Hemoglobin measurementOrdere d By: SHYAM Colin on 12-15-2024 Hemoglobin (Bld) [Mass/Vol] 14.4 g/dL 12.0-15.0 [facility] Immature granulocytes/100 WB C Auto (Bld)Ordered By: SHYAM Colin on 12-15-2024 Immature granulocytes/100 WBC (Bld) 0.400 % 0.0-0.9 [facility] Comment on above: IG% - Immature Granu locytes (promyelocytes, myelocytes and metamyelocytes) > 1% indicates that a LEFT SHIFT is Present. MCV (mean corpuscular volume ) determinationOrdered By: SHYAM Colin on 12-15-2024 MCV (RBC) [Entitic vol] 94.5 fL 81-99 [facility] Mean corpuscular hemoglobin (MCH) determinationOrdered By: SHYAM Colin on 12-15-2024 MCH (RBC) [Entitic mass] 31.6 pg 27.0-32.0 [facility] Mean corpuscular hemoglobin concentration (MCHC) determinationOrdered By: SHYAM Colin on 12-15-2024 MCHC (RBC) [Mass/Vol] 33.5 g/dL 32-36 [facility] Mean platelet volume determi nationOrdered By: SHYAM Colin on 12-15-2024 Platelet mean volume (Bld) [Entitic vol] 10.0 fL 6.2-12.0 [facility] Monocyte percentageOrdered B y: SHYAM Colin on 12-15-2024 Monocytes/100 WBC (Bld) 6.5 % 0-10 [facility] Neutrophil percentageOrdered By: SHYAM Colin on 12-15-2024 Neutrophils/100 WBC (Bld) 77.1 % High 47-70 [facility] Nucleated red blood cell per centageOrdered By: SHYAM Colin on 12-15-2024 Nucleated RBC/100 WBC (Bld) [Ratio] 0 % 0-5 [facility] Platelet countOrdered By: SHYAM Colin on 12-15-2024 Platelets (Bld) [#/Vol] 264 10*3/uL 150-450 [facility] Pulmonary Visit Reporton Pulmonary Visit Report [facility] [place] [address] [place] [address] OFFICE VISIT Date of Service: 12/15/24 MR#: [id number] Acct: [id number] Name: NISSA TROTTER Rep #: [id number] : 1955 Provider: aCrly Colin NP Age/Sex: 69/F Location: [facility] Status: Signed Assessment and Plan Assessment [...] 97 Intake Visit Reasons: 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 Normal [facility] RBC Auto (Bld) [#/Vol]Ordere d By: SHYAM Colin on 12-15-2024 RBC (Bld) [#/Vol] 4.55 10*6/uL 4.2-5.4 [facility] White blood cell (WBC) count Ordered By: SHYAM Colin on 12-15-2024 WBC (Bld) [#/Vol] 10.1 10*3/uL 4.4-11.0 [facility] 6 Minute Walk Teston 025 6 Minute Walk Test y [facility] Pul[facility] Services/Neurology [address] [place] [address] MR#: [id number] Acct: [id number] Name: NISSA TROTTER Rep #: [id number] : 1955 69 From: Jose Wolfe DO Referring Dr: Carly Colin SQL ARCHITECT-C Status: REG CLI Location: PSN Date: Sex: F C PSN 6 Minute Walk Test 6 Minute Walk Test 6 Minute Walk Test: 6 Minute Walk Test PSN:6-Minute Walk Test Start: 10/31/24 08:45 Freq: Status: Active Protocol: RESP.6MINW Document 10/31/24 08:45 [facility] (Rec: 10/31/24 08:50 [facility] [id number][facility] 6 Minute Walk Test Date Performed 10/31/24 [...] of supplemental oxygen at this time. 11/03/24 120 Date Jose Wolfe DO CC: Date Dictated: 11/03/241207 Date Transcribed: 11/03/241207 Manager Cardiac Cath: Dr. Jose Wolfe DO Signed Normal [facility] Anion gap in Serum or Plasma Ordered By: Teresa Boggs on 10-27-2024 Anion gap [Moles/Vol] 16 mmol/L High 5-15 [facility] BUN/creatinine ratioOrdered By: Teresa Boggs on 10-27-2024 Urea nitrogen/Creatinine [Mass ratio] 18.6 mg/mg 10-20 [facility] Bilirubin, totalOrdered By: Teresa Boggs on 10-27-2024 Bilirubin [Mass/Vol] 1.17 mg/dL 0.00-1.30 [facility] Carbon dioxide, total [Moles /volume] in Central venous bloodOrdered By: Teresa Boggs on 10-27-2024 CO2 [Moles/Vol] 17.4 mmol/L Low 21.0-32.0 [facility] Chloride assayOrdered By: Marge Boggs on 10-27-2024 Chloride [Moles/Vol] 103 mmol/L 98-108 [facility] Comprehensive Metabolic Prof ilon 10-27-2024 Albumin [Mass/Vol] 4.8 g/dL Normal 3.4-4.8 [facility] Comment on above: Performed By: #### L 501.04147, L501.9520, L506.0400, L500.4050 #### [facility] [address] [place] [place], [address] Albumin/Globulin [Mass ratio] 1.7 {ratio} Normal 0.9-2.4 [facility] Comment on above: Performed By: #### L 501.81584, L501.9520, L506.0400, L500.4050 #### [facility] [address] [place], [address] ALK PHOS 81 U/L Normal 35-104 [facility] Comment on above: Performed By: #### L 501.50397, L501.9520, L506.0400, L500.4050 #### [facility] [address] [place], [address] ALT [Catalytic activity/Vol] 25 U/L Normal <=34 [facility] Comment on above: Performed By: #### L 501.88152, L501.9520, L506.0400, L500.4050 #### [facility] [address] [place], [address] AST [Catalytic activity/Vol] 35 U/L High <=31 [facility] Comment on above: Performed By: #### L 501.59137, L501.9520, L506.0400, L500.4050 #### [facility] [address] [place], [address] Bilirubin [Mass/Vol] 1.17 mg/dL Normal 0.00-1.30 [facility] Comment on above: Performed By: #### L 501.41223, L501.9520, L506.0400, L500.4050 #### [facility] [address] [place], [address] BUN/CRE 18.6 RATIO Normal 10-20 [facility] Comment on above: Performed By: #### L 501.25875, L501.9520, L506.0400, L500.4050 #### [facility] [address] [place], [address] Calcium [Mass/Vol] 10.0 mg/dL Normal 7.6-11.0 [facility] Comment on above: Performed By: #### L 501.76705, L501.9520, L506.0400, L500.4050 #### [facility] [address] [place], [address] Chloride [Moles/Vol] 103 mmol/L Normal 98-108 [facility] Comment on above: Performed By: #### L 501.05377, L501.9520, L506.0400, L500.4050 #### [facility] [address] [place], [address] CO2 [Moles/Vol] 17.4 mmol/L Low 21.0-32.0 [facility] Comment on above: Performed By: #### L 501.33858, L501.9520, L506.0400, L500.4050 #### [facility] [address] [place], [address] Creatinine [Mass/Vol] 1.33 mg/dL High 0.70-1.20 [facility] Comment on above: Performed By: #### L 501.79259, L501.9520, L506.0400, L500.4050 #### [facility] [address] [place], [address] GAP 16 High 5-15 [facility] Comment on above: Performed By: #### L 501.31231, L501.9520, L506.0400, L500.4050 #### [facility] [address] [place], [address] GFR/1.73 sq M.predicted among non-blacks MDRD (S/P/Bld) [Vol rate/Area] 43 mL/min/{1.73_m2} Low >60 [facility] Comment on above: Result Comment: mL/m in/1.73m2 CKD-EPI Creatinine Equation (2020) Performed By: #### L 501.65446, L501.9520, L506.0400, L500.4050 #### [facility] [address] [place], [address] Globulin (S) [Mass/Vol] 2.8 g/dL Normal 2.2-4.2 [facility] Comment on above: Performed By: #### L 501.27435, L501.9520, L506.0400, L500.4050 #### [facility] [address] [place], [address] Glucose [Mass/Vol] 112 mg/dL High 70-99 [facility] Comment on above: Performed By: #### L 501.73300, L501.9520, L506.0400, L500.4050 #### [facility] [address] [place], [address] Potassium [Moles/Vol] 4.0 mmol/L Normal 3.3-5.1 [facility] Comment on above: Performed By: #### L 501.69441, L501.9520, L506.0400, L500.4050 #### [facility] [address] [place], [address] Sodium [Moles/Vol] 136 mmol/L Normal 133-145 [facility] Comment on above: Performed By: #### L 501.08833, L501.9520, L506.0400, L500.4050 #### [facility] [address] [place], [address] T PROT 7.6 g/dL Normal 5.9-8.4 [facility] Comment on above: Performed By: #### L 501.81469, L501.9520, L506.0400, L500.4050 #### [facility] [address] [place], [address] Urea nitrogen [Mass/Vol] 25 mg/dL High 4-19 [facility] Comment on above: Performed By: #### L 501.62058, L501.9520, L506.0400, L500.4050 #### [facility] [address] [place], [address] Free T3on 10-27-2024 Free T3 [Mass/Vol] 2.8 pg/mL Normal 2.18-3.98 [facility] Comment on above: Performed By: #### L 501.81462, L501.9520, L506.0400, L500.4050 #### [facility] [address] [place], [address] Free C6Mznbwzp By: Teresa fallon on 10-27-2024 Free T3 [Mass/Vol] 2.8 pg/mL 2.18-3.98 [facility] Glomerular filtration rate ( GFR) estimation/1.73 sq m using serum, plasma, or whole bOrdered By: Teresa Boggs on 10-27-2024 GFR/1.73 sq M.predicted among non-blacks MDRD (S/P/Bld) [Vol rate/Area] 43 mL/min/{1.73_m2} Low >60 [facility] Comment on above: mL/min/1.73m2 CKD-EP I Creatinine Equation (2020) Laboratory - Chemistry and C hemistry - challengeOrdered By: Teresa Boggs on 10-27-2024 AST [Catalytic activity/Vol] 35 U/L High <32 [facility] Potassium measurement (mass/ volume)Ordered By: Teresa Boggs on 10-27-2024 Potassium (Unsp spec) [Mass/Vol] 4.0 mmol/L 3.3-5.1 [facility] Serum creatinine measurement (mass/volume)Ordered By: Teresa Boggs on 10-27-2024 Creatinine [Mass/Vol] 1.33 mg/dL High 0.70-1.20 [facility] Serum globulin measurementOr dered By: Teresa Boggs on 10-27-2024 Globulin (S) [Mass/Vol] 2.8 g/dL 2.2-4.2 [facility] Serum glucose measurement (m ass/volume)Ordered By: Teresa Boggs on 10-27-2024 Glucose [Mass/Vol] 112 mg/dL High 70-99 [facility] Serum or plasma alanine luu otransferase (ALT) measurementOrdered By: Teresa Boggs on 10-27-2024 ALT [Catalytic activity/Vol] 25 U/L <35 [facility] Serum or plasma albumin cate urement (mass/volume)Ordered By: Teresa Boggs on 10-27-2024 Albumin [Mass/Vol] 4.8 g/dL 3.4-4.8 [facility] Serum or plasma albumin/glob ulin mass ratioOrdered By: Teresa Boggs on 10-27-2024 Albumin/Globulin [Mass ratio] 1.7 {ratio} 0.9-2.4 [facility] Serum or plasma alkaline ady sphatase measurementOrdered By: Teresa Boggs on 10-27-2024 ALP [Catalytic activity/Vol] 81 U/L 35-104 [facility] Serum or plasma calcium cate urement (mass/volume)Ordered By: Teresa Boggs on 10-27-2024 Calcium [Mass/Vol] 10.0 mg/dL 7.6-11.0 [facility] Serum or plasma urea nitroge n measurement (mass/volume)Ordered By: Teresa Boggs on 10-27-2024 Urea nitrogen [Mass/Vol] 25 mg/dL High 4-19 [facility] Sodium levelOrdered By: Teresa Boggs on 10-27-2024 Sodium [Moles/Vol] 136 mmol/L 133-145 [facility] T4 Free Directon 10-27-2024 T4 FREE DIRECT 1.20 ng/dL Normal 0.76-1.46 [facility] Comment on above: Performed By: #### L 501.10499, L501.9520, L506.0400, L500.4050 #### [facility] [address] [place], [address] T4 freeOrdered By: Teresa Ordaz s on 10-27-2024 Free T4 [Mass/Vol] 1.20 ng/dL 0.76-1.46 [facility] TSH DL <= 0.005 mIU/L QnOrde red By: Teresa Boggs on 10-27-2024 TSH Qn 1.250 uIU/mL 0.300-4.20 0 [facility] Thyroid Stim Hormone (TSH)on 10-27-2024 TSH 1.250 uIU/mL Normal 0.300-4.20 0 [facility] Comment on above: Performed By: #### L 501.63485, L501.9520, L506.0400, L500.4050 #### [facility] [address] [place], [address] Total proteinOrdered By: Rachael Boggs on 10-27-2024 Protein [Mass/Vol] 7.6 g/dL 5.9-8.4 [facility] Pulmonary Visit Reporton Pulmonary Visit Report [facility] [place] [address] [place] [address] OFFICE VISIT Date of Service: 10/18/24 MR#: [id number] Acct: [id number] Name: NISSA TROTTER Rep #: [id number] : 1955 Provider: Carly Colin NP Age/Sex: 69/F Location: [facility] Status: Signed Assessment and Plan Assessment and [...] URI in July. She does have a 22-frmg-ajoy smoking history and significant cardiovascular history which [...] Complaint: ST, cough, DE JESUS, BA, congest Jack Machine Operator Required: No DME Vendor: [email or web address] Accompanied by: [...] Adverse Reaction (more content not included)... Normal [facility] Bilirubin directOrdered By: Ana Bailey on 10-03-2024 Bilirubin.direct [Mass/Vol] 0.45 mg/dL High 0.00-0.30 [facility] Bilirubin, totalOrdered By: Ana Bailey on 10-03-2024 Bilirubin [Mass/Vol] 0.93 mg/dL 0.00-1.30 [facility] Calculated very low density lipoprotein (VLDL) cholesterol measurementOrdered By: Ana Bailey on 10-03-2024 Calculated very low density lipoprotein (VLDL) cholesterol measurement 13 mg/dL 5-40 [facility] VLDL Cholesterol 13 mg/dL -40 [facility] LDL calc ser/plasOrdered By: Ana Bailey on 10-03-2024 Cholesterol in LDL [Mass/Vol] 40 mg/dL [facility] Comment on above: Rrpozcpiqp=331-833 m g/dL & Higher Gchl=971 mg/dL or greater LDL Cholesterol, Calculated 40 mg/dL [facility] Comment on above: Mixwuakuqs=103-419 m g/dL & Higher Iwle=721 mg/dL or greater Laboratory - Chemistry and C hemistry - challengeOrdered By: Ana Bailey on 10-03-2024 AST [Catalytic activity/Vol] 36 U/L High <32 [facility] Lipid Profileon 10-03-2024 CHOL:HDL 1.76 Normal [facility] Comment on above: Performed By: #### L 500.0850, L500.4105 #### [facility] [address] [place], [place], [address] Cholesterol [Mass/Vol] 122 mg/dL Normal <=200 [facility] Comment on above: Result Comment: Chol esterol level, Desirable <200 mg/dL Borderline high cholesterol 200-239 mg/dL High cholesterol >=240 mg/dL Recommendations of the NCEP Adult Treatment Panel for the following risk-cutoff thresholds for the [place] population. Performed By: #### L 500.3400, L500.4100 #### [facility] [address] [place], [address] Cholesterol in HDL [Mass/Vol] 69 mg/dL Normal [facility] Comment on above: Result Comment: Cherise onal Cholesterol Education Program (NCEP) guidelines: <40 mg/dL: Low HDL-cholesterol (major risk factor for CHD) >= 60 mg/dL: High HDL-cholesterol (negative risk factor for CHD) HDL-cholesterol is affected by a number of factors, e.g. smoking, exercise, hormones, sex and age. Performed By: #### L 500.3400, L500.4100 #### [facility] [address] [place], [address] Cholesterol in LDL [Mass/Vol] 40 mg/dL Normal [facility] Comment on above: Result Comment: Bord asmmqu=622-004 mg/dL Higher Msrq=978 mg/dL or greater Performed By: #### L 500.3400, L500.4100 #### [facility] [address] [place], [address] Cholesterol in VLDL [Mass/Vol] 13 mg/dL Normal 5-40 [facility] Comment on above: Performed By: #### L 500.3400, L500.4100 #### [facility] [address] [place], [address] Triglyceride [Mass/Vol] 64 mg/dL Normal [facility] Comment on above: Result Comment: The drugs N-Acetylcysteine and Metamizole may falsely depress this assay. Normal range: <150 mg/dL Borderline High: 150-199 mg/dL High: 200-499 mg/dL Very High: >500 mg/dL Performed By: #### L 500.3400, L500.4100 #### [facility] [address] [place], [address] Liver Profileon 10-03-2024 Albumin [Mass/Vol] 4.5 g/dL Normal 3.4-4.8 [facility] Comment on above: Performed By: #### L 500.3400, L500.4100 #### [facility] [address] [place], [address] ALK PHOS 82 U/L Normal 35-104 [facility] Comment on above: Performed By: #### L 500.3400, L500.4100 #### [facility] [address] [place], [address] ALT [Catalytic activity/Vol] 24 U/L Normal <=34 [facility] Comment on above: Performed By: #### L 500.3400, L500.4100 #### [facility] [address] [place], [address] AST [Catalytic activity/Vol] 36 U/L High <=31 [facility] Comment on above: Performed By: #### L 500.3400, L500.4100 #### [facility] [address] [place], [address] Bilirubin [Mass/Vol] 0.93 mg/dL Normal 0.00-1.30 [facility] Comment on above: Performed By: #### L 500.3400, L500.4100 #### [facility] [address] [place], [address] Bilirubin.direct [Mass/Vol] 0.45 mg/dL High 0.00-0.30 [facility] Comment on above: Performed By: #### L 500.3400, L500.4100 #### [facility] [address] [place], [address] Globulin (S) [Mass/Vol] 2.6 g/dL Normal 2.2-4.2 [facility] Comment on above: Performed By: #### L 500.3400, L500.4100 #### [facility] [address] [place], [place], [address] T PROT 7.0 g/dL Normal 5.9-8.4 [facility] Comment on above: Performed By: #### L 500.3400, L500.4100 #### [facility] [address] [place], [place], [address] Screening total cholesterol/ high density lipoprotein (HDL) cholesterol ratioOrdered By: Ana Bailey on 10-03-2024 Cholesterol.total/Chol esterol in HDL [Mass ratio] 1.76 {ratio} [facility] Serum globulin measurementOr dered By: Ana Bailey on 10-03-2024 Globulin (S) [Mass/Vol] 2.6 g/dL 2.2-4.2 [facility] Serum or plasma alanine luu otransferase (ALT) measurementOrdered By: Ana Bailey on 10-03-2024 ALT [Catalytic activity/Vol] 24 U/L <35 [facility] Serum or plasma albumin cate urement (mass/volume)Ordered By: Ana Bailey on 10-03-2024 Albumin [Mass/Vol] 4.5 g/dL 3.4-4.8 [facility] Serum or plasma alkaline ady sphatase measurementOrdered By: Ana Bailey on 10-03-2024 ALP [Catalytic activity/Vol] 82 U/L 35-104 [facility] Serum or plasma cholesterol in HDL measurement (mass/volume)Ordered By: Ana Bailey on 10-03-2024 Cholesterol in HDL [Mass/Vol] 69 mg/dL >40 [facility] Comment on above: National Cholesterol Education Program (NCEP) guidelines:<40 mg/dL: Low HDL-cholesterol (major risk factor for CHD)>= 60 mg/dL: High HDL-cholesterol (negative risk factor for CHD)HDL-cholesterol is affected by a number of factors, e.g. smoking, exercise, hormones, sex and age. Serum or plasma cholesterol measurement (mass/volume)Ordered By: Ana Bailey on 10-03-2024 Cholesterol [Mass/Vol] 122 mg/dL <201 [facility] Comment on above: Cholesterol level, D esirable <200 mg/dLBorderline high cholesterol 200-239 mg/dLHigh cholesterol >=240 mg/dLRecommendations of the NCEP Adult Treatment Panel for the following risk-cutoff thresholds for the [place] population. Total proteinOrdered By: Karan odell Lynn on 10-03-2024 Protein [Mass/Vol] 7.0 g/dL 5.9-8.4 [facility] Triglycerides measurementOrd ered By: Ana Lynn on 10-03-2024 Triglyceride [Mass/Vol] 64 mg/dL <199 [facility] Comment on above: The drugs N-Acetylcy steine and Metamizole may falsely depress this assay. Normal range: <150 mg/dLBorderline High: 150-199 mg/dLHigh: 200-499 mg/dLVery High: >500 mg/dL No Panel InformationOrdered By: Sajan Dillon on 09-14-2024 [facility] Cardiac Rehab [address] [place] [address] CR - Individual Treatment Plan MR#: [id number] Acct: [id number] Name: NISSA TROTTER Rep #:[id number] : 1955 69 From: Sajan Lewis BS, RVT PCP: Dr. Teresa Boggs, DO DOS: 09/13/24 Exercise - Initial Assessment Physician Prescribed Exercise Modalities: Treadmill, Schwinn Airsyd AD-7 and SciFit Stepper Nutrition - Initial Assessment Program Goals Nutrition Program Goals Patient has diagnosis of Hyperlipidemia (ICD E78)?: Yes Weight Mgt (Other Care) Height: 5 ft 1 in Weight:: 153 lb BMI: 28.9 Core - Initial Assessment Hypertension Resting Blood Pressure:: 136/70 [place] [employer] Hypertension Guidelines Psychosocial - Initial [...] Session #:: 31 (more content not included)... [facility] Cardiology Visit Reporton Cardiology Visit Report [facility] [address] [place] [address]. [address] [place], [place] [id number] OFFICE VISIT Date of Service: 09/07/24 MR#: [id number] Acct: [id number] Name: NISSA TROTTER Rep #: [id number] : 1955 Provider: JENNY Gomez Age/Sex: 69/F Location: [facility] Status: Signed HPI HPI History of Present [...] proceeded with multivessel PCI on 2023 at [facility] she had postprocedural vasovagal episode and developed [...] 99 Intake Visit Reasons: 3 M FU Jack Machine Operator Required: No Is patient in pain?: No [...] #90 ta (more content not included)... Normal [facility] Direct serum free thyroxine (FT4) measurementOrdered By: Teresa Boggs on 08-04-2024 Free T4 [Mass/Vol] 1.13 ng/dL 0.76-1.46 [facility] [facility] Free T3on 08-04-2024 Free T3 [Mass/Vol] 2.6 pg/mL Normal 2.18-3.98 [facility] Comment on above: Performed By: #### L 506.0400, L501.9520, L501.23332 #### [facility] [address] [place], [place], [id number] Free [id number] By: Teresa fallon on 08-04-2024 Free T3 [Mass/Vol] 2.6 pg/mL 2.18-3.98 [facility] Free Triiodothyronine (T3) pg/dL 2.6 pg/mL 2.18-3.98 [facility] Serum or plasma thyroid stim ulating hormone (TSH) measurement (units/volume)Ordered By: Teresa Boggs on 08-04-2024 TSH Qn 0.398 uIU/mL 0.358-3.74 0 [facility] T4 Free Directon 08-04-2024 T4 FREE DIRECT 1.13 ng/dL Normal 0.76-1.46 [facility] Comment on above: Performed By: #### L 506.0400, L501.9520, L501.84229 #### [facility] [address] [place], [place], [id number] TSH QnOrdered By: Teresaben Boggs on 08-04-2024 Thyroid Stimulating Hormone (TSH) 0.398 uIU/mL 0.358-3.74 0 [facility] Thyroid Stim Hormone (TSH)on 08-04-2024 TSH 0.398 uIU/mL Normal 0.358-3.74 0 [facility] Comment on above: Performed By: #### L 506.0400, L501.9520, L501.95533 #### [facility] [address] [place], [place], [address] No Panel Informationon 07-20 Influenza Types A,B Rapid (Clinic) Negative [facility] POC SARS CoV-2 Antigen Negative [facility] Urgent Care Visit Reporton 0 07-20-2024 Urgent Care Visit Report [facility] [address], [address] [place], [place] [address] OFFICE VISIT Date of Service: 07/20/24 MR#: [id number] Acct: [id number] Name: NISSA TROTTER Rep #: [id number] : 1955 Provider: JENNY Zacarias Age/Sex: 68/F Location: [facility] Status: Signed Intake Vital Signs 06/19/24 07:11 07/20/24 09:21 Height 5 ft 1 in BP 142/72 H Blood Pressure Location Lt brachial Position Sitting Respiration 16 Pulse 88 Pulse Source NIBP Temp 98.1 F Temp Source Oral Pulse Oximetry (%) 98 Oxygen Delivery Method room air Intake Visit Reasons: SORE THROAT, COUGH Chief Complaint: ST, cough, DE JESUS, BA, congest Jack Machine Operator Required: No Is patient in pain?: No [...] loss of taste x 5 days worsening. PFS Medical History Bilateral carotid bruits Easy bruising [...] valve insufficiency Atherosclerosis of coronary artery of [place] heart with angina pectoris CVA (cerebral vascular [...] hypertrophy 1+ (more content not included)... Normal [facility] CR - History AND Physicalon 05-22-2024 CR - History & Physical [facility] Cardiac Rehab [address] [place] [address] CR - History Physical MR#: [id number] Acct: [id number] Name: NISSA TROTTER Rep #: [id number] : 1955 68 From: Sajan Lewis BS, [...] Negative Advanced Directives Advanced Directives Power of Boat Designer: No Living Will: No Advance Directives Information [...] valve insufficiency Atherosclerosis of coronary artery of [place] heart with angina pectoris CVA (cerebral vascular [...] (03/25/20) H/O coronary artery bypass surgery (10/20/ (more content not included)... Normal [facility] Cardiology Visit Reporton Cardiology Visit Report [facility] [address] [place] [address] OFFICE VISIT Date of Service: 05/10/24 MR#: [id number] Acct: [id number] Name: NISSA TROTTER Rep #: [id number] : 1955 Provider: CARLI guerrero Age/Sex: 68/F Location: [facility] Status: Signed HPI HPI History of Present [...] proceeded with multivessel PCI on 2023 at [facility] she had postprocedural vasovagal episode and developed [...] Oximetry (%) 99 Intake Visit Reasons: S/P [facility] 05/04 Jack Machine Operator Required: No Is patient in pain?: No [...] you fallen in the past year?: No [facility] Medical History (more content not included)... Normal [facility] CBC (HEMOGRAM)on 05-04-2024 Erythrocyte distribution width (RBC) [Ratio] 12.5 % Normal 11.5-15.0 [facility] Comment on above: Performed By: #### L AB15, TOY804, GDS378, LAB18, [id number], LSL053 #### Supervisor Wool Shearing: GARY ESPARZA ([phone]) [address] Hematocrit (Bld) [Volume fraction] 35.0 % Normal 35.0-47.0 [facility] Comment on above: Performed By: #### L AB15, OJU182, ESL456, LAB18, [id number], KIT343 #### Supervisor Wool Shearing: GARY ESPARZA ([phone]) [facility]) [address] [place] [address] Hemoglobin (Bld) [Mass/Vol] 12.1 g/dL Normal 11.7-16.0 [facility] Comment on above: Performed By: #### L AB15, EFK434, KGX081, LAB18, [id number], KIZ948 #### Supervisor Wool Shearing: GARY ESPARZA ([id number]) [facility]) [address] [place] [address] MCH (RBC) [Entitic mass] 31.7 pg Normal 26.0-34.0 [facility] Comment on above: Performed By: #### L AB15, NRF534, NAN235, LAB18, [id number], BGB578 #### Supervisor Wool Shearing: GARY ESPARZA ([phone]) [facility] ([facility]) [address] [place] [address] MCHC 34.6 % Normal 30.5-36.0 [facility] Comment on above: Performed By: #### L AB15, IAN029, XIX735, LAB18, [id number], HCQ622 #### Supervisor Wool Shearing: GARY ESPARZA ([phone]) [facility] ([facility]) [address] [place] [address] MCV (RBC) [Entitic vol] 91.6 fL Normal 77.0-99.0 [facility] Comment on above: Performed By: #### L AB15, PEX133, IEG600, LAB18, [id number], ZWT406 #### Supervisor Wool Shearing: GARY ESPARZA ([id number]) [facility] ([facility]) [address] [place] [address] Platelet mean volume (Bld) [Entitic vol] 9.5 fL Normal 9.0-12.7 [facility] Comment on above: Performed By: #### L AB15, YGC956, UWY955, LAB18, [id number], YMO102 #### Supervisor Wool Shearing: GARY ESPARZA ([id number]) [facility] ([facility]) [address] [place] [address] Platelets (Bld) [#/Vol] 214 10*3/uL Normal 140-440 [facility] Comment on above: Performed By: #### L AB15, MAJ917, NXQ210, LAB18, [id number], WIU910 #### Supervisor Wool Shearing: GARY ESPARZA ([phone]) [facility] ([facility]) [address] [place] [address] RBC (Bld) [#/Vol] 3.82 10*6/uL Normal 3.80-5.20 [facility] Comment on above: Performed By: #### L AB15, BKR274, YBC957, LAB18, [id number], EUK748 #### Supervisor Wool Shearing: GARY ESPARZA ([phone]) [facility] ([facility]) [address] [place] [address] WBC (Bld) [#/Vol] 12.5 10*3/uL High 3.6-10.7 [facility] Comment on above: Performed By: #### L AB15, IAG133, GEN930, LAB18, [id number], KVI829 #### Supervisor Wool Shearing: GARY ESPARZA ([phone]) [facility] [address] [place] [address] CBC panel Auto (Bld)on 05-04 Erythrocyte distribution width (RBC) [Ratio] 12.5 % 11.5 - 15.0 % [facility] Hematocrit (Bld) [Volume fraction] 35 % 35.0 - 47.0 % [facility] Hemoglobin (Bld) [Mass/Vol] 12.1 g/dL 11.7 - 16.0 g/dL [facility] Interpretation and review of laboratory results Abnormal [facility] MCH (RBC) [Entitic mass] 31.7 pg 26.0 - 34.0 pg [facility] MCHC (RBC) [Mass/Vol] 34.6 % 30.5 - 36.0 % [facility] MCV (RBC) [Entitic vol] 91.6 fL 77.0 - 99.0 fL [facility] Platelet mean volume (Bld) [Entitic vol] 9.5 fL 9.0 - 12.7 fL [facility] Platelets (Bld) [#/Vol] 214 10*3/uL 140 - 440 10*3/uL [facility] RBC (Bld) [#/Vol] 3.82 10*6/uL 3.80 - 5.20 10*6/uL [facility] WBC (Bld) [#/Vol] 12.5 10*3/uL High 3.6 - 10.7 10*3/uL [facility] COMPREHENSIVE METABOLIC PANE Emiliano 05-04-2024 Albumin [Mass/Vol] 4.3 g/dL Normal 3.5-5.0 [facility] Comment on above: Performed By: #### L AB15, DSF889, TVX061, LAB18, [id number], YAB497 #### Supervisor Wool Shearing: GARY ESPARZA ([phone]) [facility] ([facility]) [address] [place] [address] ALP [Catalytic activity/Vol] 56 U/L Normal 38-126 [facility] Comment on above: Performed By: #### L AB15, JBU101, OTB024, LAB18, [id number], TCY137 #### Supervisor Wool Shearing: GARY ESPARZA ([id number]) [facility] ([facility]) [address] [place] [address] ALT [Catalytic activity/Vol] 26 U/L Normal 0-34 [facility] Comment on above: Performed By: #### L AB15, YUW145, PKH386, LAB18, [id number], RYY393 #### Supervisor Wool Shearing: GARY ESPARZA ([phone]) [facility] ([facility]) [address] [place] [address] Anion gap [Moles/Vol] 11 mmol/L Normal 3-13 [facility] Comment on above: Performed By: #### L AB15, LSH051, NQB627, LAB18, [id number], KWY785 #### Supervisor Wool Shearing: GARY ESPARZA ([phone]) [facility] ([facility]) [address] [place] [address] AST [Catalytic activity/Vol] 116 U/L High 15-46 [facility] Comment on above: Performed By: #### L AB15, EQH149, EGP637, LAB18, [id number], POR558 #### Supervisor Wool Shearing: GARY ESPARZA ([phone]) [facility] ([facility]) [address] [place] [address] Bilirubin [Mass/Vol] 1.4 mg/dL High 0.2-1.3 [facility] Comment on above: Performed By: #### L AB15, JPG475, GBQ784, LAB18, [id number], VAE512 #### Supervisor Wool Shearing: GARY ESPARZA ([id number]) [facility] ([facility]) [address] [place] [address] Calcium [Mass/Vol] 9.1 mg/dL Normal 8.4-10.4 [facility] Comment on above: Performed By: #### L AB15, UFT235, FBV621, LAB18, [id number], JMY772 #### Supervisor Wool Shearing: GARY ESPARZA ([id number]) [facility]) [address] [place] [address] Chloride [Moles/Vol] 103 mmol/L Normal 98-107 [facility] Comment on above: Performed By: #### L AB15, QDK082, DAI592, LAB18, [id number], HHM654 #### Supervisor Wool Shearing: GARY ESPARZA ([phone]) [facility]) [address] [place] [address] CO2 [Moles/Vol] 18 mmol/L Low 22-30 [facility] Comment on above: Performed By: #### L AB15, ARI320, WTA778, LAB18, [id number], OVU393 #### Supervisor Wool Shearing: GARY ESPARZA ([id number]) [facility] ([facility]) [address] [place] [address] Creatinine [Mass/Vol] 0.79 mg/dL Normal 0.52-1.04 [facility] Comment on above: Performed By: #### L AB15, UMF823, NXM259, LAB18, [id number], LTP463 #### Supervisor Wool Shearing: GARY ESPARZA ([phone]) [facility]) [address] [place] [address] GLOMERULAR FILTRATION RATE ML/MIN/1.73 SQ M.PREDICTED 81.1 mL/min/1.73m*2 Normal >60.0 [facility] Comment on above: Result Comment: Calc ulation based on the Chronic Kidney Disease Epidemiology Collaboration (CKD-EPI) equation refit without adjustment for race Performed By: #### L AB15, MJF170, JLA438, LAB18, [id number], DVH661 #### Supervisor Wool Shearing: GARY ESPARZA ([phone]) [facility]) [address] [place] [address] Glucose [Mass/Vol] 126 mg/dL High 70-100 [facility] Comment on above: Performed By: #### L AB15, FLS828, KZP953, LAB18, [id number], VMY023 #### Supervisor Wool Shearing: GARY ESPARZA ([phone]) [facility] ([facility]) [address] [place] [address] Potassium [Moles/Vol] 4.2 mmol/L Normal 3.5-5.1 [facility] Comment on above: Performed By: #### L AB15, DJY013, FDR460, LAB18, [id number], MAY563 #### Supervisor Wool Shearing: GARY ESPARZA ([id number]) [facility] ([facility]) [address] [place] [address] Protein [Mass/Vol] 7.0 g/dL Normal 6.3-8.2 [facility] Comment on above: Performed By: #### L AB15, KIZ643, XIL938, LAB18, [id number], GBW034 #### Supervisor Wool Shearing: GARY ESPARZA ([phone]) [facility] ([facility]) [address] [place] [address] Sodium [Moles/Vol] 132 mmol/L Low 135-145 [facility] Comment on above: Performed By: #### L AB15, OWG483, MVC305, LAB18, [id number], EEI476 #### Supervisor Wool Shearing: GARY ESPARZA ([phone]) [facility] ([facility]) [address] [place] [address] Urea nitrogen [Mass/Vol] 13 mg/dL Normal 7-17 [facility] Comment on above: Performed By: #### L AB15, RBG351, ZXD342, LAB18, [id number], LVN738 #### Supervisor Wool Shearing: GARY ESPARZA ([id number]) [facility]) [address] [place] [address] Comprehensive metabolic 1998 panelon 05-04-2024 Albumin [Mass/Vol] 4.3 g/dL 3.5 - 5.0 g/dL [facility] ALP [Catalytic activity/Vol] 56 U/L 38 - 126 U/L [facility] ALT [Catalytic activity/Vol] 26 U/L 0 - 34 U/L [facility] Anion gap [Moles/Vol] 11 mmol/L 3 - 13 mmol/L [facility] AST [Catalytic activity/Vol] 116 U/L High 15 - 46 U/L [facility] Bilirubin [Mass/Vol] 1.4 mg/dL High 0.2 - 1 .3 mg/dL [facility] Calcium [Mass/Vol] 9.1 mg/dL 8.4 - 10. 4 mg/dL [facility] Chloride [Moles/Vol] 103 mmol/L 98 - 10 7 mmol/L [facility] CO2 [Moles/Vol] 18 mmol/L Low 22 - 30 mmol/L [facility] Creatinine [Mass/Vol] 0.79 mg/dL 0.52 - 1.04 mg/dL [facility] GFR/1.73 sq M.predicted (S/P/Bld) [Vol rate/Area] 81.1 mL/min - PINF [facility] Comment on above: Calculation based on the Chronic Kidney Disease Epidemiology Collaboration (CKD-EPI) equation refit without adjustment for race Glucose [Mass/Vol] 126 mg/dL High 70 - 100 mg/dL [facility] Interpretation and review of laboratory results Abnormal [facility] Potassium [Moles/Vol] 4.2 mmol/L 3.5 - 5.1 mmol/L [facility] Protein [Mass/Vol] 7 g/dL 6.3 - 8.2 g/dL [facility] Sodium [Moles/Vol] 132 mmol/L Low 135 - 145 mmol/L [facility] Urea nitrogen [Mass/Vol] 13 mg/dL 7 - 17 mg/dL [facility] ECG 12-LEADon 05-04-2024 ECG 12-LEAD IMPRESSION: Sinus rhythm Probable left atrial enlargement Nonspecific T abnormalities, lateral leads Minimal ST elevation, inferior leads Electronically Signed On 05-04-2024 10:30:48 EST by David Del Csatillo Normal [facility] No Panel InformationOrdered By: David Del Castillo on 05-04-2024 P [place] 52 degrees [facility] [place] Work Phone: GA Interval 129 ms [facility] [place] Work Phone: QRS [place] -6 degrees [employer] Phone: QRSD Interval 102 ms [employer] Phone: QT Interval 347 ms [employer] Phone: QTC Interval 412 ms [employer] Phone: T Wave [place] 62 degrees [employer] Phone: [employer] Phone: No Panel Informationon 05-04 Sinus rhythm Probable left atrial enlargement Nonspecific T abnormalities, lateral leads Minimal ST elevation, inferior leads Electronically Signed On 05-04-2024 10:30:48 EST by David Del Castillo David Santacruz MD - 05/04/2024 IMPRESSION: Sinus rhythm Probable left atrial enlargement Nonspecific T abnormalities, lateral leads Minimal ST elevation, inferior leads Electronically Signed On 05-04-2024 10:30:48 EST by David Del Castillo [facility] Nursing Noteon 05-04-2024 Nursing Note Wound Care consulted for Pressure Injury Prevention. Pt's Lake= 20, pt is no longer at risk. Skin Care Precaution order set in place. Will continue to follow peripherally. Please voicera or secure chat message with any questions. Noreen Hunt RN [facility] Progress Noteon 05-04-2024 Progress Note Discharge instructio ns, medications, restrictions, activity, diet, cardiac rehab and follow-up reviewed and patient verbalized understanding. She will utilize [facility] for her home-going Rx and was instructed to notify office with any difficulty obtaining Rx or if this becomes a financial burden. She was also informed to notify the office in the future if anyone asks her to hold or stop either ASA or ticagrelor (Brilinta) 90mg BID. [facility] Progress Note Nutrition rescreen completed. Chart reviewed. Patient to be monitored and followed by the diet electronic security technician. MIGUE Matos [facility] Progress Note ------- Attestation signed by David Patel MD at 05/04/2024 2:12 PM I, Dr. David Patel, saw and evaluated the patient on 05/04/24 in T1-/ A. I personally obtained the forbes and critical portions of the history and physical exam. I reviewed the labs, imaging studies, and electronic medical record. I reviewed the Paster Operator's documentation, and discussed the patient with the Paster Operator. I agree with the Paster Operator's medical decision making and have edited the note to reflect my clinical findings and my assessment and plan. In summary, Ms. Trotter is a 68-year-old woman with a history of coronary artery disease s/p remote CABG, PCI in 2015 and 2019, ELODIA, hypertension, hyperlipidemia, who presents to [facility] with a chief complaint of chest pain. [...] Patel MD, PhD Advanced Heart Failure Cardiology [facility] [place] 2:02 PM 05/04/24 [facility] [place] [facility] CCU PROGRESS NOTE Patient Name: Nissa Trotter : 1955 Subjective: Hospital Course: This 68-year-old female with a past medical history significant for CAD s/p CABG [2008], previous cardiac catheterization with PCI in , ELODIA, HLD, HTN who presented to [facility] on 05/02 after a cardiac cath at [facility] for consideration of PCI. The patient [...] Intake/Output Summary (Last 24 hours) at 05/04/2024 0685 Last data filed at 05/04/2024 0500 Gross [...] ng/mL Laura (more content not included)... [facility] Vital signsOrdered By: David Del Castillo on 05-04-2024 Heart rate 85 /min bpm [employer] Work Phone: [phone] 05-03-2024 [id number] Care Managment Initi al Assessment Date: 05/03/2024 Patient Name: Nissa Trotter : 1955 Patient Information Source of Information: Patient Cognition/Language: WFL - Within Functional Limits Permission given to speak with patient sales representative business courses/caregiver as indicated: Yes Confirmation of Payer with patient/family: Yes Payer Name: [facility] : No Confirmation of Primary Care [...] with: Alone Support Systems: Children, Family members, Jain/nathaniel community Activities of Daily Living Ambulation: Independent Bathing/Dressing: Independent Elimination/Continence/Toil eting: Independent Feeding: Independent Who Assists with Activities of Daily Living: Instrumental Activities of Daily Living Prescription Coverage: Yes Pharmacy Used: [facility] Medication Management: Mail order Who assists [...] denies discharge needs. Skye Real RN Normal [facility] CBC (HEMOGRAM)on 05-03-2024 Erythrocyte distribution width (RBC) [Ratio] 13.1 % Normal 11.5-15.0 [facility] Comment on above: Performed By: #### L AB15, NAB857, MLJ731, LAB18, [id number], FWN127 #### Supervisor Wool Shearing: GARY ESPARZA ([id number]) [facility]) [address] [place] [address] Hematocrit (Bld) [Volume fraction] 33.6 % Low 35.0-47.0 [facility] Comment on above: Performed By: #### L AB15, BJW351, MFD385, LAB18, [id number], CZX110 #### Supervisor Wool Shearing: GARY ESPARZA ([phone]) [facility]) [address] [place] [address] Hemoglobin (Bld) [Mass/Vol] 11.6 g/dL Low 11.7-16.0 [facility] Comment on above: Performed By: #### L AB15, CNN543, QGJ794, LAB18, [id number], FFE391 #### Supervisor Wool Shearing: GARY ESPARZA ([id number]) [facility]) [address] [place] [address] MCH (RBC) [Entitic mass] 31.7 pg Normal 26.0-34.0 [facility] Comment on above: Performed By: #### L AB15, REO165, LOY460, LAB18, [id number], PKX135 #### Supervisor Wool Shearing: GARY ESPARZA ([phone]) [facility]) [address] [place] [address] MCHC 34.5 % Normal 30.5-36.0 [facility] Comment on above: Performed By: #### L AB15, ONF978, XHB404, LAB18, [id number], EOT503 #### Supervisor Wool Shearing: GARY ESPARZA ([phone]) [facility]) [address] [place] [address] MCV (RBC) [Entitic vol] 91.8 fL Normal 77.0-99.0 [facility] Comment on above: Performed By: #### L AB15, IZC870, ACY983, LAB18, [id number], CFE478 #### Supervisor Wool Shearing: GARY ESPARZA ([phone]) [facility]) [address] [place] [address] Platelet mean volume (Bld) [Entitic vol] 10.2 fL Normal 9.0-12.7 [facility] Comment on above: Performed By: #### L AB15, SJF542, VXZ988, LAB18, [id number], ESU179 #### Supervisor Wool Shearing: GARY ESPARZA ([phone]) [facility] ([facility]) [address] [place] [address] Platelets (Bld) [#/Vol] 219 10*3/uL Normal 140-440 [facility] Comment on above: Performed By: #### L AB15, LGR545, XVC962, LAB18, [id number], LEC647 #### Supervisor Wool Shearing: GARY ESPARZA ([phone]) [facility] ([facility]) [address] [place] [address] RBC (Bld) [#/Vol] 3.66 10*6/uL Low 3.80-5.20 [facility] Comment on above: Performed By: #### L AB15, RYG996, ORL359, LAB18, [id number], LOI505 #### Supervisor Wool Shearing: GARY ESPARZA ([id number]) [facility] ([facility]) [address] [place] [address] WBC (Bld) [#/Vol] 11.9 10*3/uL High 3.6-10.7 [facility] Comment on above: Performed By: #### L AB15, IUE959, KWM876, LAB18, [id number], IBG169 #### Supervisor Wool Shearing: GARY ESPARZA ([phone]) [facility] ([facility]) [address] [place] [address] CBC panel Auto (Bld)on 05-03 Erythrocyte distribution width (RBC) [Ratio] 13.1 % 11.5 - 15.0 % [facility] Hematocrit (Bld) [Volume fraction] 33.6 % Low 35.0 - 47.0 % [facility] Hemoglobin (Bld) [Mass/Vol] 11.6 g/dL Low 11.7 - 16.0 g/dL [facility] Interpretation and review of laboratory results Abnormal [facility] MCH (RBC) [Entitic mass] 31.7 pg 26.0 - 34.0 pg [facility] MCHC (RBC) [Mass/Vol] 34.5 % 30.5 - 36.0 % [facility] MCV (RBC) [Entitic vol] 91.8 fL 77.0 - 99.0 fL [facility] Platelet mean volume (Bld) [Entitic vol] 10.2 fL 9.0 - 12.7 fL [facility] Platelets (Bld) [#/Vol] 219 10*3/uL 140 - 440 10*3/uL [facility] [facility] RBC (Bld) [#/Vol] 3.66 10*6/uL Low 3.80 - 5.20 10*6/uL [facility] WBC (Bld) [#/Vol] 11.9 10*3/uL High 3.6 - 10.7 10*3/uL [facility] CK TOTAL AND CKMBon 05-03-20 CK [Catalytic activity/Vol] 503 U/L High 30-170 [facility] Comment on above: Performed By: #### L AB15, EFC636, CCJ223, LAB18, [id number], [id number] #### Supervisor Wool Shearing: GARY ESPARZA ([phone]) [facility]) [address] [place] [address] CK.MB [Mass/Vol] 49.0 ng/mL High 0.0-4.4 [facility] Comment on above: Performed By: #### L AB15, XQN863, BBI199, LAB18, [id number], [id number] #### Supervisor Wool Shearing: GARY ESPARZA ([phone]) [facility] ([facility]) [address] [place] [address] RELATIVE INDEX 9.7 High 0.0-3.0 [facility] Comment on above: Performed By: #### L AB15, YFG894, YHX608, LAB18, [id number], [id number] #### Supervisor Wool Shearing: GARY ESPARZA ([phone]) [facility]) [address] [place] [address] CK.total/Creatine kinase.MB [Catalytic ratio]on 05-03-2024 CK [Catalytic activity/Vol] 503 U/L High 30 - 170 U/L [facility] CK.MB [Mass/Vol] 49 ng/mL High 0.0 - 4.4 ng/mL [facility] Interpretation and review of laboratory results Abnormal [facility] RELATIVE INDEX 9.7 High 0.0 - 3.0 [facility] COMPREHENSIVE METABOLIC PANE Emiliano 05-03-2024 Albumin [Mass/Vol] 4.2 g/dL Normal 3.5-5.0 [facility] Comment on above: Performed By: #### L AB15, BRY994, BMW393, LAB18, [id number], [id number] #### Supervisor Wool Shearing: GARY ESPARZA ([phone]) [facility] ([facility]) [address] [place] [address] ALP [Catalytic activity/Vol] 53 U/L Normal 38-126 [facility] Comment on above: Performed By: #### L AB15, FUW772, VWF249, LAB18, [id number], [id number] #### Supervisor Wool Shearing: GARY ESPARZA ([phone]) [facility] ([facility]) [address] [place] [address] ALT [Catalytic activity/Vol] 23 U/L Normal 0-34 [facility] Comment on above: Performed By: #### L AB15, TCA127, GNO886, LAB18, [id number], [id number] #### Supervisor Wool Shearing: GARY ESPARZA ([phone]) [facility] ([facility]) [address] [place] [address] Anion gap [Moles/Vol] 6 mmol/L Normal 3-13 [facility] Comment on above: Performed By: #### L AB15, VJR177, JVR532, LAB18, [id number], [id number] #### Supervisor Wool Shearing: GARY ESPARZA ([phone]) [facility] ([facility]) [address] [place] [address] [place] AST [Catalytic activity/Vol] 93 U/L High 15-46 [facility] Comment on above: Performed By: #### L AB15, MAJ621, KUW092, LAB18, [id number], MSE308 #### Supervisor Wool Shearing: GARY ESPARZA ([phone]) [facility] ([facility]) [address] [place] [address] Bilirubin [Mass/Vol] 1.4 mg/dL High 0.2-1.3 [facility] Comment on above: Performed By: #### L AB15, QYI329, VDX051, LAB18, [id number], [id number] #### Supervisor Wool Shearing: GARY ESPARZA ([phone]) [facility] ([facility]) [address] [place] [address] Calcium [Mass/Vol] 9.2 mg/dL Normal 8.4-10.4 [facility] Comment on above: Performed By: #### L AB15, EGL041, YWY646, LAB18, [id number], MNS798 #### Supervisor Wool Shearing: GARY ESPARZA ([phone]) [facility] ([facility]) [address] [place] [address] Chloride [Moles/Vol] 108 mmol/L High 98-107 [facility] Comment on above: Performed By: #### L AB15, YAL631, RZA143, LAB18, [id number], [id number] #### Supervisor Wool Shearing: GARY ESPARZA ([phone]) [facility] ([facility]) [address] [place] [address] CO2 [Moles/Vol] 21 mmol/L Low 22-30 [facility] Comment on above: Performed By: #### L AB15, VCA715, DDV786, LAB18, [id number], [id number] #### Supervisor Wool Shearing: GARY ESPARZA ([phone]) [facility] ([facility]) [address] [place] [address] Creatinine [Mass/Vol] 0.81 mg/dL Normal 0.52-1.04 [facility] Comment on above: Performed By: #### L AB15, XQG371, SMK201, LAB18, [id number], CJA512 #### Supervisor Wool Shearing: GARY ESPARZA ([phone]) [facility] ([facility] [address] [place] [address] [place] GLOMERULAR FILTRATION RATE ML/MIN/1.73 SQ M.PREDICTED 78.7 mL/min/1.73m*2 Normal >60.0 [facility] Comment on above: Result Comment: Calc ulation based on the Chronic Kidney Disease Epidemiology Collaboration (CKD-EPI) equation refit without adjustment for race Performed By: #### L AB15, PZO237, UEP801, LAB18, [id number], [id number] #### Supervisor Wool Shearing: GARY ESPARZA ([phone]) [facility] ([facility]) [address] [place] [address] Glucose [Mass/Vol] 119 mg/dL High 70-100 [facility] Comment on above: Performed By: #### L AB15, OSJ342, LKH349, LAB18, [id number], WDA040 #### Supervisor Wool Shearing: GARY ESPARZA ([phone]) [facility] ([facility]) [address] [place] [address] Potassium [Moles/Vol] 4.9 mmol/L Normal 3.5-5.1 [facility] Comment on above: Performed By: #### L AB15, KNE955, OHJ055, LAB18, [id number], FVU476 #### Supervisor Wool Shearing: GARY ESPARZA ([phone]) [facility] ([facility]) [address] [place] [address] [place] Protein [Mass/Vol] 6.8 g/dL Normal 6.3-8.2 [facility] Comment on above: Performed By: #### L AB15, WHX809, BIT431, LAB18, [id number], YEZ226 #### Supervisor Wool Shearing: GARY ESPARZA ([phone]) [facility] ([facility]) [address] [place] [address] [place] Sodium [Moles/Vol] 135 mmol/L Normal 135-145 [facility] Comment on above: Performed By: #### L AB15, NQE504, FCB750, LAB18, [id number], HAY077 #### Supervisor Wool Shearing: GARY ESPARZA ([phone]) [facility] ([facility]) [address] [place] [address] [place] Urea nitrogen [Mass/Vol] 15 mg/dL Normal 7-17 [facility] Comment on above: Performed By: #### L AB15, CLZ453, STG135, LAB18, [id number], GSI774 #### Supervisor Wool Shearing: GARY ESPARZA ([phone]) [facility] ([facility]) [address] [place] [address] Comprehensive metabolic 1998 panelon 05-03-2024 Albumin [Mass/Vol] 4.2 g/dL 3.5 - 5.0 g/dL [facility] ALP [Catalytic activity/Vol] 53 U/L 38 - 126 U/L [facility] ALT [Catalytic activity/Vol] 23 U/L 0 - 34 U/L [facility] Anion gap [Moles/Vol] 6 mmol/L 3 - 13 mmol/L [facility] AST [Catalytic activity/Vol] 93 U/L High 15 - 46 U/L [facility] Bilirubin [Mass/Vol] 1.4 mg/dL High 0.2 - 1 .3 mg/dL [facility] Calcium [Mass/Vol] 9.2 mg/dL 8.4 - 10. 4 mg/dL [facility] Chloride [Moles/Vol] 108 mmol/L High 98 - 10 7 mmol/L [facility] CO2 [Moles/Vol] 21 mmol/L Low 22 - 30 mmol/L [facility] Creatinine [Mass/Vol] 0.81 mg/dL 0.52 - 1.04 mg/dL [facility] GFR/1.73 sq M.predicted (S/P/Bld) [Vol rate/Area] 78.7 mL/min - PINF [facility] Comment on above: Calculation based on the Chronic Kidney Disease Epidemiology Collaboration (CKD-EPI) equation refit without adjustment for race Glucose [Mass/Vol] 119 mg/dL High 70 - 100 mg/dL [facility] Interpretation and review of laboratory results Abnormal [facility] Potassium [Moles/Vol] 4.9 mmol/L 3.5 - 5.1 mmol/L [facility] Protein [Mass/Vol] 6.8 g/dL 6.3 - 8.2 g/dL [facility] Sodium [Moles/Vol] 135 mmol/L 135 - 145 mmol/L [facility] Urea nitrogen [Mass/Vol] 15 mg/dL 7 - 17 mg/dL [facility] ECG 12-LEADon 05-03-2024 ECG 12-LEAD IMPRESSION: Sinus rhythm Multiple ventricular premature complexes Borderline prolonged QT interval Electronically Signed On 05-03-2024 08:03:37 EST by [facility] ECG 12-LEAD IMPRESSION: Sinus rhythm ST elevations suggest acute anterior and inferior wall injury Electronically Signed On 05-03-2024 08:00:12 EST by [facility] 12-LEAD IMPRESSION: Sinus rhythm Probable left atrial enlargement ST elevation, consider anterior and inferior wall injury Electronically Signed On 05-03-2024 07:58:34 EST by [facility] ECG 12-LEAD IMPRESSION: Sinus rhythm Probable left atrial enlargement Low voltage, extremity leads ST elevations consider anterior wall and inferior wall injury Electronically Signed On 05-03-2024 07:58:05 EST by [facility] 12-LEAD IMPRESSION: Sinus rhythm Electronically Signed On 05-03-2024 07:53:01 EST by [facility] ECG 12-LEAD IMPRESSION: Sinus rhythm Atrial premature complex Low voltage, extremity leads Electronically Signed On 05-03-2024 07:44:31 EST by [facility] Laboratory - Chemistry and C hemistry - challengeon 05-03-2024 Troponin I.cardiac [Mass/Vol] 11.8 ng/mL Critically high NINF - 0.034 ng/mL ironSource No Panel InformationOrdered By: Dez Mena on 05-03-2024 P [place] 62 degrees Zoom[employer] Phone: GA Interval 151 ms Zoom[employer] Phone: QRS [place] 8 degrees [employer]oom[employer] Phone: QRSD Interval 102 ms [employer] Phone: QT Interval 445 ms [employer] Phone: QTC Interval 489 ms [employer]oom[employer] Phone: T Wave [place] 14 degrees [employer]oom[employer] Phone: [phone] [employer] Phone: [phone] No Panel Informationon 05-03 Sinus rhythm Multiple ventricular premature complexes Borderline prolonged QT interval Electronically Signed On 05-03-2024 08:03:37 EST by Dez Mcdonald MD - 05/03/2024 IMPRESSION: Sinus rhythm Multiple ventricular premature complexes Borderline prolonged QT interval Electronically Signed On 05-03-2024 08:03:37 EST [facility] P [place] 57 degrees [facility] GA Interval 155 ms [facility] QRS [place] 33 degrees [facility] QRSD Interval 92 ms [facility] QT Interval 422 ms [facility] QTC Interval 473 ms [facility] T Wave [place] 71 degrees [facility] Sinus rhythm ST elevations suggest acute anterior and inferior wall injury Electronically Signed On 05-03-2024 08:00:12 EST by Dez Mcdonald MD - 05/03/2024 IMPRESSION: Sinus rhythm ST elevations suggest acute anterior and inferior wall injury Electronically Signed On 05-03-2024 08:00:12 EST by Dez Mena [facility] P [place] 62 degrees [facility] GA Interval 140 ms [facility] QRS [place] 28 degrees [facility] QRSD Interval 99 ms [facility] QT Interval 417 ms [facility] QTC Interval 475 ms [facility] T Wave [place] 70 degrees [facility] Sinus rhythm Probable left atrial enlargement ST elevation, consider anterior and inferior wall injury Electronically Signed On 05-03-2024 07:58:34 EST by Dez Mcdonald MD - 05/03/2024 IMPRESSION: Sinus rhythm Probable left atrial enlargement ST elevation, consider anterior and inferior wall injury Electronically Signed On 05-03-2024 07:58:34 EST by Dez Mena [facility] P [place] 60 degrees [facility] GA Interval 145 ms [facility] QRS [place] 20 degrees [facility] QRSD Interval 96 ms [facility] QT Interval 413 ms [facility] QTC Interval 471 ms [facility] T Wave [place] 64 degrees [facility] Sinus rhythm Probable [...] On 05-03-2024 07:58:05 EST by [facility] [place] 61 degrees [facility] GA Interval 149 ms [facility] QRS [place] 7 degrees [facility] QRSD Interval 103 ms [facility] QT Interval 463 ms [facility] QTC Interval 471 ms [facility] T Wave [place] 53 degrees [facility] Sinus rhythm Electronically Signed On 05-03-2024 07:53:01 EST by Dez Mcdonald MD - 05/03/2024 IMPRESSION: Sinus rhythm Electronically Signed On 05-03-2024 07:53:01 EST by Dez Mena [facility] P [place] 55 degrees [facility] GA Interval 148 ms [facility] QRS [place] -7 degrees [facility] QRSD Interval 97 ms [facility] QT Interval 407 ms [facility] QTC Interval 423 ms [facility] T Wave [place] 46 degrees [facility] Sinus rhythm Atrial premature complex Low voltage, extremity leads Electronically Signed On 05-03-2024 07:44:31 EST by Dez Mcdonald MD - 05/03/2024 IMPRESSION: Sinus rhythm Atrial premature complex Low voltage, extremity leads Electronically Signed On 05-03-2024 07:44:31 EST by [facility] Progress Noteon 05-03-2024 Progress Note ------- Attestation signed by David Patel MD at 05/03/2024 2:11 PM I, Dr. David Patel, saw and evaluated the patient on 05/03/24 in T1-110/ A. I personally obtained the forbes and critical portions of the history and physical exam. I reviewed the labs, imaging studies, and electronic medical record. I reviewed the Paster Operator's documentation, and discussed the patient with the Paster Operator. I agree with the Paster Operator's medical decision making and have edited the note to reflect my clinical findings and my assessment and plan. In summary, Ms. Trotter is a 68-year-old woman with a history of coronary artery disease status post remote CABG, PCI in 2015 and 2019, ELODIA, hypertension, hyperlipidemia, who presents to [facility] with a chief complaint of chest pain. [...] Patel MD, PhD Advanced Heart Failure Cardiology [facility] [place] 2:11 PM 05/03/24 [facility] [place] [facility] CCU PROGRESS NOTE Patient Name: Nissa Trotter : 1955 Subjective: Hospital Course: This 68-year-old female with a past medical history significant for CAD s/p CABG [2008], previous cardiac catheterization with PCI in , ELODIA, HLD, HTN who presented to [facility] on 05/02 after a cardiac cath at [facility] for consideration of PCI. The patient [...] 05/02/2024 CB (more content not included)... Normal [facility] TROPONIN Ion 05-03-2024 Troponin I.cardiac [Mass/Vol] 11.800 ng/mL Critically high <0.034 [facility] Comment on above: Result Comment: VIDA Benitez COMMENTS: Patients with high levels of Biotin oral intake (ie >5 mg/day) may have falsely decreased Troponin levels. Performed By: #### L AB15, AKW085, GGA419, LAB18, [id number], GLC165 #### Supervisor Wool Shearing: GARY ESPARZA ([phone]) [facility] ([address] Troponin I.cardiac [Mass/Vol ]on 05-03-2024 Interpretation and review of laboratory results Abnormal [facility] Patients with high l evels of Biotin oral intake (ie >5 mg/day) may have falsely decreased Troponin levels. [facility] Vital signsOrdered By: Jolynn Mena on 05-03-2024 Heart rate 69 /min bpm [facility] [place] Work Phone: Vital signson 05-03-2024 Heart rate 75 /min bpm [facility] Heart rate 78 /min bpm [facility] Heart rate 78 /min bpm [facility] Heart rate 62 /min bpm [facility] Heart rate 66 /min bpm [facility] 30on 05-02-2024 30 Problem: Pain - [...] discharge needs are met Outcome: Progressing Normal [facility] APTTon 05-02-2024 aPTT Coag (Bld) [Time] 70.3 s High 20.0-30.5 [facility] Comment on above: Result Comment: VIDA Benitez COMMENTS: NOTE: The therapeutic time for Heparin anticoagulation, based on Xa activity inhibition, is an APTT of 46-80 seconds. Performed By: #### L AB325 #### Supervisor Wool Shearing: GARY ESPARZA ([phone]) [address] aPTT Coag (Bld) [Time] 25.6 s Normal 20.0-30.5 [facility] Comment on above: Result Comment: VIDA Benitez COMMENTS: NOTE: The therapeutic time for Heparin anticoagulation, based on Xa activity inhibition, is an APTT of 46-80 seconds. Performed By: #### L AB15, AVT442, TMN947, LAB18, [id number], [id number] #### Supervisor Wool Shearing: GARY ESPARZA ([phone]) [facility]) [address] [place] [address] Anesthesia Noteon 05-02-2024 Anesthesia Note Sedation Plan [...] proceed to administer sedation as planned. Normal [facility] BASIC METABOLIC PANELon 11-0 Anion gap [Moles/Vol] 13 mmol/L Normal 3-13 [facility] Comment on above: Performed By: #### L AB15, KFS541, WJZ590, LAB18, [id number], MYE667 #### Supervisor Wool Shearing: GARY ESPARZA ([phone]) [facility]) [address] [place] [address] Calcium [Mass/Vol] 9.0 mg/dL Normal 8.4-10.4 [facility] Comment on above: Performed By: #### L AB15, IFT638, WEE539, LAB18, [id number], LQK605 #### Supervisor Wool Shearing: GARY ESPARZA ([phone]) [facility] ([facility]) [address] [place] [address] Chloride [Moles/Vol] 107 mmol/L Normal 98-107 [facility] Comment on above: Performed By: #### L AB15, LNT503, WUK369, LAB18, [id number], NZS041 #### Supervisor Wool Shearing: GARY ESPARZA ([phone]) [facility] ([facility]) [address] [place] [address] CO2 [Moles/Vol] 17 mmol/L Low 22-30 [facility] Comment on above: Performed By: #### L AB15, DOF762, RQK290, LAB18, [id number], XSY094 #### Supervisor Wool Shearing: GARY ESPARZA ([phone]) [facility]) [address] [place] [address] Creatinine [Mass/Vol] 0.93 mg/dL Normal 0.52-1.04 [facility] Comment on above: Performed By: #### L AB15, VAW284, WSP508, LAB18, [id number], THG691 #### Supervisor Wool Shearing: GARY ESPARZA ([phone]) [facility] ([facility]) [address] [place] [address] GLOMERULAR FILTRATION RATE ML/MIN/1.73 SQ M.PREDICTED 66.7 mL/min/1.73m*2 Normal >60.0 [facility] Comment on above: Result Comment: Calc ulation based on the Chronic Kidney Disease Epidemiology Collaboration (CKD-EPI) equation refit without adjustment for race Performed By: #### L AB15, PIV790, VOC741, LAB18, [id number], OJR635 #### Supervisor Wool Shearing: GARY ESPARZA ([phone]) [facility] ([facility]) [address] [place] [address] Glucose [Mass/Vol] 134 mg/dL High 70-100 [facility] Comment on above: Performed By: #### L AB15, EJW120, JIC697, LAB18, [id number], CFC734 #### Supervisor Wool Shearing: GARY ESPARZA ([phone]) [facility] ([facility]) [address] [place] [address] Potassium [Moles/Vol] 3.8 mmol/L Normal 3.5-5.1 [facility] Comment on above: Performed By: #### L AB15, SHO118, LAY731, LAB18, [id number], OKS974 #### Supervisor Wool Shearing: GARY ESPARZA ([phone]) [facility] ([facility]) [address] [place] [address] [place] Sodium [Moles/Vol] 137 mmol/L Normal 135-145 [facility] Comment on above: Performed By: #### L AB15, HOW747, CJW977, LAB18, [id number], UMO311 #### Supervisor Wool Shearing: GARY ESPARZA ([phone]) [facility]) [address] [place] [address] [place] Urea nitrogen [Mass/Vol] 14 mg/dL Normal 7-17 [facility] Comment on above: Performed By: #### L AB15, WRM386, RJW035, LAB18, [id number], SWC169 #### Supervisor Wool Shearing: GARY ESPARZA ([phone]) [facility] [address] [place] [address] Anion gap [Moles/Vol] 15 mmol/L High 3-13 [facility] Comment on above: Performed By: #### L AB15, CGZ481, RJH556, LAB18, [id number], TIH551 #### Supervisor Wool Shearing: GARY ESPARZA ([phone]) [facility] ([facility]) [address] [place] [address] Calcium [Mass/Vol] 9.8 mg/dL Normal 8.4-10.4 [facility] Comment on above: Performed By: #### L AB15, JBC373, IWJ455, LAB18, [id number], ZRL708 #### Supervisor Wool Shearing: GARY ESPARZA ([phone]) [facility] ([facility]) [address] [place] [address] Chloride [Moles/Vol] 106 mmol/L Normal 98-107 [facility] Comment on above: Performed By: #### L AB15, PII400, ANO602, LAB18, [id number], WTY561 #### Supervisor Wool Shearing: GARY ESPARZA ([phone]) [facility] ([facility]) [address] [place] [address] CO2 [Moles/Vol] 17 mmol/L Low 22-30 [facility] Comment on above: Performed By: #### L AB15, VTH049, NGB633, LAB18, [id number], RTA894 #### Supervisor Wool Shearing: GARY ESPARZA ([phone]) [facility] ([facility]) [address] [place] [address] Creatinine [Mass/Vol] 0.77 mg/dL Normal 0.52-1.04 [facility] Comment on above: Performed By: #### L AB15, TNF740, CLN847, LAB18, [id number], MXQ765 #### Supervisor Wool Shearing: GARY ESPARZA ([phone]) [facility] ([facility] [address] [place] [address] GLOMERULAR FILTRATION RATE ML/MIN/1.73 SQ M.PREDICTED 83.6 mL/min/1.73m*2 Normal >60.0 [facility] Comment on above: Result Comment: Calc ulation based on the Chronic Kidney Disease Epidemiology Collaboration (CKD-EPI) equation refit without adjustment for race Performed By: #### L AB15, XHU641, CPL216, LAB18, [id number], ZXX856 #### Supervisor Wool Shearing: GARY ESPARZA ([id number]) [facility]) [address] [place] [address] Glucose [Mass/Vol] 112 mg/dL High 70-100 [facility] Comment on above: Performed By: #### L AB15, DOW660, YQN383, LAB18, [id number], GAU071 #### Supervisor Wool Shearing: GARY ESPARZA ([phone]) [facility] ([facility]) [address] [place] [address] Potassium [Moles/Vol] 3.6 mmol/L Normal 3.5-5.1 [facility] Comment on above: Performed By: #### L AB15, CAV096, ZWE476, LAB18, [id number], XQN150 #### Supervisor Wool Shearing: GARY ESPARZA ([phone]) [facility] ([facility]) [address] [place] [address] Sodium [Moles/Vol] 138 mmol/L Normal 135-145 [facility] Comment on above: Performed By: #### L AB15, BDA516, QWT751, LAB18, [id number], WHV189 #### Supervisor Wool Shearing: GARY ESPARZA ([phone]) [facility] ([facility]) [address] [place] [address] [place] Urea nitrogen [Mass/Vol] 15 mg/dL Normal 7-17 [facility] Comment on above: Performed By: #### L AB15, WWY226, OXG639, LAB18, [id number], JZJ648 #### Supervisor Wool Shearing: GARY ESPARZA ([phone]) [facility] ([facility]) [address] [place] [address] Basic metabolic 1998 panelOr dered By: Fatoumata Moy on 05-02-2024 Anion gap [Moles/Vol] 13 mmol/L 3 - 13 mmol/L [facility] Calcium [Mass/Vol] 9 mg/dL 8.4 - 10. 4 mg/dL [facility] Chloride [Moles/Vol] 107 mmol/L 98 - 10 7 mmol/L [facility] CO2 [Moles/Vol] 17 mmol/L Low 22 - 30 mmol/L [facility] Creatinine [Mass/Vol] 0.93 mg/dL 0.52 - 1.04 mg/dL [facility] GFR/1.73 sq M.predicted (S/P/Bld) [Vol rate/Area] 66.7 mL/min - PINF [facility] [place] Comment on above: Calculation based on the Chronic Kidney Disease Epidemiology Collaboration (CKD-EPI) equation refit without adjustment for race Glucose [Mass/Vol] 134 mg/dL High 70 - 100 mg/dL [facility] Interpretation and review of laboratory results Abnormal [facility] Potassium [Moles/Vol] 3.8 mmol/L 3.5 - 5.1 mmol/L [facility] Sodium [Moles/Vol] 137 mmol/L 135 - 145 mmol/L [facility] Urea nitrogen [Mass/Vol] 14 mg/dL 7 - 17 mg/dL [facility] Basic metabolic 1998 panelon 05-02-2024 Anion gap [Moles/Vol] 15 mmol/L High 3 - 13 mmol/L [facility] Calcium [Mass/Vol] 9.8 mg/dL 8.4 - 10. 4 mg/dL [facility] Chloride [Moles/Vol] 106 mmol/L 98 - 10 7 mmol/L [facility] CO2 [Moles/Vol] 17 mmol/L Low 22 - 30 mmol/L [facility] Creatinine [Mass/Vol] 0.77 mg/dL 0.52 - 1.04 mg/dL [facility] GFR/1.73 sq M.predicted (S/P/Bld) [Vol rate/Area] 83.6 mL/min - PINF [facility] [place] Comment on above: Calculation based on the Chronic Kidney Disease Epidemiology Collaboration (CKD-EPI) equation refit without adjustment for race Glucose [Mass/Vol] 112 mg/dL High 70 - 100 mg/dL [facility] Interpretation and review of laboratory results Abnormal [facility] Potassium [Moles/Vol] 3.6 mmol/L 3.5 - 5.1 mmol/L [facility] Sodium [Moles/Vol] 138 mmol/L 135 - 145 mmol/L [facility] Urea nitrogen [Mass/Vol] 15 mg/dL 7 - 17 mg/dL [facility] CBC W Auto Differential pane l (Bld)Ordered By: Renee Cohen on 05-02-2024 Basophils (Bld) [#/Vol] 0 10*3/uL 0.0 - 0.2 10*3/uL [facility] Basophils/100 WBC (Bld) 0.3 % 0.0 - 2.0 % [facility] Eosinophils (Bld) [#/Vol] 0.1 10*3/uL 0.0 - 0.5 10*3/uL [facility] Eosinophils/100 WBC (Bld) 1.3 % 0.0 - 6.0 % [facility] Erythrocyte distribution width (RBC) [Ratio] 12.6 % 11.5 - 15.0 % [facility] Hematocrit (Bld) [Volume fraction] 31.7 % Low 35.0 - 47.0 % [facility] Hemoglobin (Bld) [Mass/Vol] 11 g/dL Low 11.7 - 16.0 g/dL [facility] Immature granulocytes (Bld) [#/Vol] 0 10*3/uL NINF - 0.1 10*3/uL [facility] Immature granulocytes/100 WBC (Bld) 0.4 % 0.0 - 2.0 % [facility] Interpretation and review of laboratory results Abnormal [facility] Lymphocytes (Bld) [#/Vol] 1.4 10*3/uL 1.0 - 4.3 10*3/uL [facility] Lymphocytes/100 WBC (Bld) 13.4 % Low 15.0 - 45.0 % [facility] MCH (RBC) [Entitic mass] 31.4 pg 26.0 - 34.0 pg [facility] MCHC (RBC) [Mass/Vol] 34.7 % 30.5 - 36.0 % [facility] MCV (RBC) [Entitic vol] 90.6 fL 77.0 - 99.0 fL [facility] Monocytes (Bld) [#/Vol] 0.6 10*3/uL 0.0 - 0.9 10*3/uL [facility] Monocytes/100 WBC (Bld) 6.1 % 5.0 - 13.0 % [facility] Neutrophils (Bld) [#/Vol] 7.9 10*3/uL High 1.8 - 7.5 10*3/uL [facility] Neutrophils/100 WBC (Bld) 78.5 % 38.0 - 82.0 % [facility] Nucleated RBC/100 WBC (Bld) [Ratio] 0 % [facility] Platelet mean volume (Bld) [Entitic vol] 9.5 fL 9.0 - 12.7 fL [facility] Platelets (Bld) [#/Vol] 237 10*3/uL 140 - 440 10*3/uL [facility] RBC (Bld) [#/Vol] 3.5 10*6/uL Low 3.80 - 5.20 10*6/uL [facility] WBC (Bld) [#/Vol] 10 10*3/uL 3.6 - 10.7 10*3/uL [facility] CBC W Auto Differential pane l (Bld)on 05-02-2024 Basophils (Bld) [#/Vol] 0 10*3/uL 0.0 - 0.2 10*3/uL [facility] Basophils/100 WBC (Bld) 0.4 % 0.0 - 2.0 % [facility] Eosinophils (Bld) [#/Vol] 0.3 10*3/uL 0.0 - 0.5 10*3/uL [facility] Eosinophils/100 WBC (Bld) 2.9 % 0.0 - 6.0 % [facility] Erythrocyte distribution width (RBC) [Ratio] 12.4 % 11.5 - 15.0 % [facility] Hematocrit (Bld) [Volume fraction] 39.4 % 35.0 - 47.0 % [facility] Hemoglobin (Bld) [Mass/Vol] 13.6 g/dL 11.7 - 16.0 g/dL [facility] Immature granulocytes (Bld) [#/Vol] 0 10*3/uL NINF - 0.1 10*3/uL [facility] Immature granulocytes/100 WBC (Bld) 0.2 % 0.0 - 2.0 % [facility] Interpretation and review of laboratory results Normal [facility] Lymphocytes (Bld) [#/Vol] 2 10*3/uL 1.0 - 4.3 10*3/uL [facility] [place] Lymphocytes/100 WBC (Bld) 23.2 % 15.0 - 45.0 % [facility] [place] MCH (RBC) [Entitic mass] 31.3 pg 26.0 - 34.0 pg [facility] [place] MCHC (RBC) [Mass/Vol] 34.5 % 30.5 - 36.0 % [facility] MCV (RBC) [Entitic vol] 90.6 fL 77.0 - 99.0 fL [facility] Monocytes (Bld) [#/Vol] 0.6 10*3/uL 0.0 - 0.9 10*3/uL [facility] Monocytes/100 WBC (Bld) 7.5 % 5.0 - 13.0 % [facility] Neutrophils (Bld) [#/Vol] 5.6 10*3/uL 1.8 - 7.5 10*3/uL [facility] Neutrophils/100 WBC (Bld) 65.8 % 38.0 - 82.0 % [facility] [place] Nucleated RBC/100 WBC (Bld) [Ratio] 0 % [facility] [place] Platelet mean volume (Bld) [Entitic vol] 9.5 fL 9.0 - 12.7 fL [facility] Platelets (Bld) [#/Vol] 250 10*3/uL 140 - 440 10*3/uL [facility] RBC (Bld) [#/Vol] 4.35 10*6/uL 3.80 - 5.20 10*6/uL [facility] WBC (Bld) [#/Vol] 8.6 10*3/uL 3.6 - 10.7 10*3/uL [facility] CBC WITH AUTO DIFFERENTIALon 05-02-2024 Basophils (Bld) [#/Vol] 0.0 10*3/uL Normal 0.0-0.2 [facility] Comment on above: Performed By: #### L AB15, YQP163, QAC850, LAB18, [id number], [id number] #### Supervisor [employer]: GARY ESPARZA ([phone]) [facility] ([address] Basophils/100 WBC (Bld) 0.3 % Normal 0.0-2.0 [facility] Comment on above: Performed By: #### L AB15, FFR027, RPS390, LAB18, [id number], QYW643 #### Supervisor [employer]: GARY ESPARZA ([phone]) [facility]) [address] [place] [address] Eosinophils (Bld) [#/Vol] 0.1 10*3/uL Normal 0.0-0.5 [facility] Comment on above: Performed By: #### L AB15, YZL190, QIX786, LAB18, [id number], VGM781 #### Supervisor [employer]: GARY ESPARZA ([phone]) [facility]) [address] [place] [address] Eosinophils/100 WBC (Bld) 1.3 % Normal 0.0-6.0 [facility] Comment on above: Performed By: #### L AB15, XWK829, XFQ133, LAB18, [id number], ZAW250 #### Supervisor [employer]: GARY ESPARZA ([phone]) [facility] ([facility]) [address] [place] [address] Erythrocyte distribution width (RBC) [Ratio] 12.6 % Normal 11.5-15.0 [facility] Comment on above: Performed By: #### L AB15, RJQ835, JDN908, LAB18, [id number], JBW557 #### Supervisor [employer]: GARY ESPARZA ([phone]) [facility]) [address] [place] [address] Hematocrit (Bld) [Volume fraction] 31.7 % Low 35.0-47.0 [facility] Comment on above: Performed By: #### L AB15, ADU416, BOJ511, LAB18, [id number], RVQ697 #### Supervisor [employer]: GARY ESPARZA ([phone]) [address] Hemoglobin (Bld) [Mass/Vol] 11.0 g/dL Low 11.7-16.0 [facility] Comment on above: Performed By: #### L AB15, UMJ914, IIV633, LAB18, [id number], GAH352 #### Supervisor [employer]: GARY ESPARZA ([phone]) [facility]) [address] [place] [address] IMMATURE GRANS % 0.4 % Normal 0.0-2.0 [facility] Comment on above: Performed By: #### L AB15, HDH541, SIM637, LAB18, [id number], ZMV416 #### Supervisor [employer]: GARY ESPARZA ([phone]) [facility]) [address] [place] [address] IMMATURE GRANS ABSOLUTE 0.0 10*3/uL Normal <0.1 [facility] Comment on above: Performed By: #### L AB15, KDA977, OGA710, LAB18, [id number], BYT733 #### Supervisor [employer]: GARY ESPARZA ([phone]) [facility]) [address] [place] [address] Lymphocytes (Bld) [#/Vol] 1.4 10*3/uL Normal 1.0-4.3 [facility] Comment on above: Performed By: #### L AB15, DFS636, SIF983, LAB18, [id number], OUZ679 #### Supervisor [employer]: GARY ESPARZA ([phone]) [address] Lymphocytes/100 WBC (Bld) 13.4 % Low 15.0-45.0 [facility] Comment on above: Performed By: #### L AB15, URF948, BPV756, LAB18, [id number], RTN349 #### Supervisor [employer]: GARY ESPARZA ([phone]) [address] MCH (RBC) [Entitic mass] 31.4 pg Normal 26.0-34.0 [facility] Comment on above: Performed By: #### L AB15, PIL970, NTC234, LAB18, [id number], DBZ490 #### Supervisor [employer]: GARY ESPARZA ([phone]) [facility]) [address] [place] [address] MCHC 34.7 % Normal 30.5-36.0 [facility] Comment on above: Performed By: #### L AB15, PVJ666, CAP756, LAB18, [id number], DHS726 #### Supervisor [employer]aring: GARY ESPARZA ([phone]) [facility]) [address] [place] [address] MCV (RBC) [Entitic vol] 90.6 fL Normal 77.0-99.0 [facility] Comment on above: Performed By: #### L AB15, JOO701, IUM686, LAB18, [id number], RZD515 #### Supervisor [employer]: GARY ESPARZA ([phone]) [facility]) [address] [place] [address] Monocytes (Bld) [#/Vol] 0.6 10*3/uL Normal 0.0-0.9 [facility] Comment on above: Performed By: #### L AB15, CDU102, WTX328, LAB18, [id number], UOZ225 #### Supervisor [employer]aring: GARY ESPARZA ([phone]) [facility]) [address] [place] [address] Monocytes/100 WBC (Bld) 6.1 % Normal 5.0-13.0 [facility] Comment on above: Performed By: #### L AB15, RTL189, IGU613, LAB18, [id number], PIY946 #### Supervisor [employer] Shearing: GARY ESPARZA ([phone]) [facility]) [address] [place] [address] NEUTROPHILS ABSOLUTE 7.9 10*3/uL High 1.8-7.5 [facility] Comment on above: Performed By: #### L AB15, KKS416, OWG242, LAB18, [id number], BQI897 #### Supervisor [employer]: GARY ESPARZA ([phone]) [facility]) [address] [place] [address] Neutrophils/100 WBC (Bld) 78.5 % Normal 38.0-82.0 [facility] Comment on above: Performed By: #### L AB15, DKK050, HJE104, LAB18, [id number], YTE257 #### Supervisor [employer]aring: GARY ESPARZA ([phone]) [facility] ([facility]) [address] [place] [address] NRBC 0.0 /100 WBCs Normal 0.0-2.0 [facility] Comment on above: Performed By: #### L AB15, QUS481, NXX494, LAB18, [id number], BSC265 #### Supervisor [employer]: GARY ESPARZA ([phone]) [facility] ([facility]) [address] [place] [address] Platelet mean volume (Bld) [Entitic vol] 9.5 fL Normal 9.0-12.7 [facility] Comment on above: Performed By: #### L AB15, OTD674, WDH896, LAB18, [id number], OLS971 #### Supervisor [employer]: GARY ESPARZA ([phone]) [facility] ([facility]) [address] [place] [address] Platelets (Bld) [#/Vol] 237 10*3/uL Normal 140-440 [facility] Comment on above: Performed By: #### L AB15, JKT518, MZR985, LAB18, [id number], WGQ436 #### Supervisor [employer]: GARY ESPARZA ([phone]) [facility] ([facility]) [address] [place] [address] RBC (Bld) [#/Vol] 3.50 10*6/uL Low 3.80-5.20 [facility] Comment on above: Performed By: #### L AB15, QVO571, IJK601, LAB18, [id number], LHB875 #### Supervisor [employer]: GARY ESPARZA ([phone]) [facility] ([facility]) [address] [place] [address] WBC (Bld) [#/Vol] 10.0 10*3/uL Normal 3.6-10.7 [facility] Comment on above: Performed By: #### L AB15, BGA318, HPO454, LAB18, [id number], YFR542 #### Supervisor [employer]: GARY ESPARZA ([phone]) [facility] ([facility]) [address] [place] [address] Basophils (Bld) [#/Vol] 0.0 10*3/uL Normal 0.0-0.2 [facility] Comment on above: Performed By: #### L AB15, IYG841, SBQ952, LAB18, [id number], QFZ131 #### Supervisor [employer]: GARY ESPARZA ([phone]) [facility]) [address] [place] [address] Basophils/100 WBC (Bld) 0.4 % Normal 0.0-2.0 [facility] Comment on above: Performed By: #### L AB15, YVJ743, RYU621, LAB18, [id number], GJN743 #### Supervisor [employer]: GARY ESPARZA ([phone]) [facility] ([facility]) [address] [place] [address] Eosinophils (Bld) [#/Vol] 0.3 10*3/uL Normal 0.0-0.5 [facility] Comment on above: Performed By: #### L AB15, YDC629, HHJ606, LAB18, [id number], PEE783 #### Supervisor [employer]aring: GARY ESPARZA ([phone]) [facility]) [address] [place] [address] Eosinophils/100 WBC (Bld) 2.9 % Normal 0.0-6.0 [facility] Comment on above: Performed By: #### L AB15, JYX562, GKM246, LAB18, [id number], FRU736 #### Supervisor [employer] Shearing: GARY ESPARZA ([phone]) [facility]) [address] [place] [address] Erythrocyte distribution width (RBC) [Ratio] 12.4 % Normal 11.5-15.0 [facility] Comment on above: Performed By: #### L AB15, NXW685, FMR004, LAB18, [id number], URX385 #### Supervisor [employer] Shearing: GARY ESPARZA ([phone]) [facility]) [address] [place] [address] Hematocrit (Bld) [Volume fraction] 39.4 % Normal 35.0-47.0 [facility] Comment on above: Performed By: #### L AB15, YVL600, ODH547, LAB18, [id number], WSF500 #### Supervisor [employer] Shearing: GARY ESPARZA ([phone]) [facility]) [address] [place] [address] Hemoglobin (Bld) [Mass/Vol] 13.6 g/dL Normal 11.7-16.0 [facility] Comment on above: Performed By: #### L AB15, JCL137, MFZ960, LAB18, [id number], WRV356 #### Supervisor [employer] Shearing: GARY ESPARZA ([phone]) [facility]) [address] [place] [address] IMMATURE GRANS % 0.2 % Normal 0.0-2.0 [facility] Comment on above: Performed By: #### L AB15, NRD552, QYZ076, LAB18, [id number], GCC102 #### Supervisor [employer]aring: GARY ESPARZA ([phone]) [address] IMMATURE GRANS ABSOLUTE 0.0 10*3/uL Normal <0.1 [facility] Comment on above: Performed By: #### L AB15, CEQ525, JLK477, LAB18, [id number], XEX141 #### Supervisor [employer] Shearing: GARY ESPARZA ([phone]) [facility]) [address] [place] [address] Lymphocytes (Bld) [#/Vol] 2.0 10*3/uL Normal 1.0-4.3 [facility] Comment on above: Performed By: #### L AB15, ZDC787, XTD997, LAB18, [id number], MAA923 #### Supervisor [employer] Shearing: GARY ESPARZA ([phone]) [facility] ([facility]) [address] [place] [address] Lymphocytes/100 WBC (Bld) 23.2 % Normal 15.0-45.0 [facility] Comment on above: Performed By: #### L AB15, QCC685, GGZ160, LAB18, [id number], BBL658 #### Supervisor [employer] Shearing: GARY ESPARZA ([phone]) [facility]) [address] [place] [address] MCH (RBC) [Entitic mass] 31.3 pg Normal 26.0-34.0 [facility] Comment on above: Performed By: #### L AB15, WWT152, CMO948, LAB18, [id number], PKU913 #### Supervisor [employer] Shearing: GARY ESPARZA ([phone]) [facility]) [address] [place] [address] MCHC 34.5 % Normal 30.5-36.0 [facility] Comment on above: Performed By: #### L AB15, MGM706, CLJ619, LAB18, [id number], NXD178 #### Supervisor [employer] She[employer]: GARY ESPARZA ([phone]) [facility]) [address] [place] [address] MCV (RBC) [Entitic vol] 90.6 fL Normal 77.0-99.0 [facility] Comment on above: Performed By: #### L AB15, XXQ589, GXE156, LAB18, [id number], TOL969 #### Supervisor [employer]: GARY ESPARZA ([phone]) [facility] ([facility]) [address] [place] [address] Monocytes (Bld) [#/Vol] 0.6 10*3/uL Normal 0.0-0.9 [facility] Comment on above: Performed By: #### L AB15, ZDH693, JYJ892, LAB18, [id number], QIN996 #### Supervisor [employer] Shearing: GARY ESPARZA ([phone]) [facility]) [address] [place] [address] Monocytes/100 WBC (Bld) 7.5 % Normal 5.0-13.0 [facility] Comment on above: Performed By: #### L AB15, KLL798, OAX591, LAB18, [id number], YKQ995 #### Supervisor [employer]: GARY ESPARZA ([phone]) [facility] ([facility]) [address] [place] [address] NEUTROPHILS ABSOLUTE 5.6 10*3/uL Normal 1.8-7.5 [facility] Comment on above: Performed By: #### L AB15, WIX142, MUS493, LAB18, [id number], HQV756 #### Supervisor [employer]: GARY ESPARZA ([phone]) [facility]) [address] [place] [address] Neutrophils/100 WBC (Bld) 65.8 % Normal 38.0-82.0 [facility] Comment on above: Performed By: #### L AB15, PTL819, PYA679, LAB18, [id number], SZB912 #### Supervisor [employer] She[employer]: GARY ESPARZA ([phone]) [facility] ([facility]) [address] [place] [address] NRBC 0.0 /100 WBCs Normal 0.0-2.0 [facility] Comment on above: Performed By: #### L AB15, KGN973, FRN286, LAB18, [id number], LCW635 #### Supervisor [employer]: GARY ESPARZA ([phone]) [facility] ([facility]) [address] [place] [address] Platelet mean volume (Bld) [Entitic vol] 9.5 fL Normal 9.0-12.7 [facility] Comment on above: Performed By: #### L AB15, IWH469, SUW038, LAB18, [id number], HTC173 #### Supervisor [employer]: GARY ESPARZA ([phone]) [facility] ([facility]) [address] [place] [address] Platelets (Bld) [#/Vol] 250 10*3/uL Normal 140-440 [facility] Comment on above: Performed By: #### L AB15, KZP060, IAO763, LAB18, [id number], URT761 #### Supervisor [employer]: GARY ESPARZA ([phone]) [facility] ([facility]) [address] [place] [address] RBC (Bld) [#/Vol] 4.35 10*6/uL Normal 3.80-5.20 [facility] Comment on above: Performed By: #### L AB15, IEB856, QLI545, LAB18, [id number], IQQ537 #### Supervisor [employer] She[employer]: GARY ESPARZA ([phone]) [facility]) [address] [place] [address] WBC (Bld) [#/Vol] 8.6 10*3/uL Normal 3.6-10.7 [facility] Comment on above: Performed By: #### L AB15, KDN239, ZVP737, LAB18, [id number], NPX582 #### Supervisor [employer]: GARY ESPARZA ([phone]) [facility]) [address] [place] [address] CK TOTAL AND CKMBon 05-02-20 24 CK [Catalytic activity/Vol] 74 U/L Normal 30-170 [facility] Comment on above: Performed By: #### L AB15, LSL869, OOK384, LAB18, [id number], JHR474 #### Supervisor [employer]: GARY ESPARZA ([phone]) [facility]) [address] [place] [address] CK.MB [Mass/Vol] 3.9 ng/mL Normal 0.0-4.4 [facility] Comment on above: Performed By: #### L AB15, TAA706, RKB658, LAB18, [id number], QET121 #### Supervisor [employer] She[employer]: GARY ESPARZA ([phone]) [facility]) [address] [place] [address] RELATIVE INDEX 5.3 High 0.0-3.0 [facility] Comment on above: Performed By: #### L AB15, RIH704, CGR028, LAB18, [id number], GAO519 #### Supervisor [employer]: GARY ESPARZA ([phone]) [facility] ([facility]) [address] [place] [address] CK.total/Creatine kinase.MB [Catalytic ratio]on 05-02-2024 CK [Catalytic activity/Vol] 74 U/L 30 - 170 U/L [facility] CK.MB [Mass/Vol] 3.9 ng/mL 0.0 - 4.4 ng/mL [facility] Interpretation and review of laboratory results Abnormal [facility] RELATIVE INDEX 5.3 High 0.0 - 3.0 [facility] Cardiac catheterization stud yon 05-02-2024 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 Prior VARGAS-LAD and SVG-OM2 grafts are both chronically occluded. Patent [place] dominant RCA with mild disease. Successful IVUS [...] exchanged over a wire for a 6 [place] sheath which was aspirated and flushed with saline. Patient was anticoagulated with IV heparin. Left and right coronary angiograms were performed with 5 [place] JL 4 and JR4 catheters respectively. JR4 catheter was advanced across the aortic valve using a guidewire to perform left heart cath with measurement of pressures. VARGAS graft was not assessed as this was noted to be chronically occluded. A 5 [place] AL 1 catheter was used to perform [...] LCx: Prior to beginning PCI, the 6 [place] sheath was exchanged for a 7 [place] sheath. Patient was anticoagulated with IV heparin with therapeutic ACT maintained. Patient was loaded with Brilinta 180 mg crushed PO prior to the procedure. Left main coronary artery was cannulated with a 7 [place] EBU 3.75 guide catheter. Luge guidewire was [...] (more content not included)... CV CPACS HEMO [facility] ECG 12-LEADon 05-02-2024 ECG 12-LEAD IMPRESSION: Sinus rhythm BORDERLINE ST DEPRESSION, DIFFUSE LEADS Electronically Signed On 05-02-2024 07:48:39 EST by Rufus Valente [facility] ECG 12-LEAD IMPRESSION: Sinus rhythm Ventricular bigeminy, brief Probable left atrial enlargement PVCs new since last EKG Electronically Signed On 05-02-2024 07:25:45 EST by Rufus Valente [facility] HEMOGLOBIN A1Con 05-02-2024 Glucose [Mass/Vol] 111 mg/dL Normal [facility] Comment on above: Performed By: #### L AB15, [id number], [id number], LAB18, [id number], [id number] #### Supervisor Wool [employer]aring: GARY ESPARZA ([phone]) [facility] ([facility] [place]) [address] [place] [address] HbA1c (Bld) [Mass fraction] 5.5 % Normal <5.7 [facility] Comment on above: Result Comment: Norm al less than 5.7% Prediabetes 5.7% to 6.4% Diabetes 6.5% or higher --HgbA1C levels may not be accurate in patients who have renal disease, received recent blood transfusions, are anemic, or who have dyshemoglobinemia. Performed By: #### L AB15, [id number], [id number], LAB18, [id number], [id number] #### Supervisor Wool Shearing: GARY ESPARZA ([phone]) [facility]) [address] [place] [address] HEMOGLOBIN AND HEMATOCRIT, B LOODon 05-02-2024 Hematocrit (Bld) [Volume fraction] 36.3 % Normal 35.0-47.0 [facility] Comment on above: Performed By: #### L AB15, [id number], [id number], LAB18, [id number], [id number] #### Supervisor Wool Shearing: GARY ESPARZA ([phone]) [facility] ([facility] [place]) [address] [place] [address] Hemoglobin (Bld) [Mass/Vol] 12.4 g/dL Normal 11.7-16.0 [facility] Comment on above: Performed By: #### L AB15, [id number], [id number], LAB18, [id number], [id number] #### Supervisor Wool Shearing: GARY ESPARZA ([id number]) [facility] ([facility]) [address] [place] [address] Hemoglobin (Bld) [Mass/Vol]o n 05-02-2024 Hematocrit (Bld) [Volume fraction] 36.3 % 35.0 - 47.0 % [facility] Interpretation and review of laboratory results Normal [facility] LIPID PANELon 05-02-2024 Cholesterol [Mass/Vol] 201 mg/dL High <200 [facility] Comment on above: Order Comment: If no t done in the last six months. Performed By: #### L AB15, [id number], [id number], LAB18, [id number], [id number] #### Supervisor Wool Shearing: GARY ESPARZA ([phone]) [facility]) [address] [place] [address] Cholesterol in HDL [Mass/Vol] 64 mg/dL High 40-60 [facility] Comment on above: Order Comment: If no t done in the last six months. Performed By: #### L AB15, [id number], [id number], LAB18, [id number], [id number] #### Supervisor Wool Shearing: GARY ESPARZA ([phone]) [facility]) [address] [place] [address] Cholesterol.total/Chol esterol in HDL [Mass ratio] 3 {ratio} Normal [facility] Comment on above: Order Comment: If no t done in the last six months. Result Comment: Ref Range: < 3 Low Risk for CHD 3-6 Mod Risk for CHD > 6 High Risk for CHD Performed By: #### L AB15, [id number], [id number], LAB18, [id number], [id number] #### Supervisor Wool Shearing: GARY ESPARZA ([phone]) [address] LOW DENSITY LIPOPROTEIN 81 mg/dL Normal 0-<100 [facility] Comment on above: Order Comment: If no t done in the last six months. Performed By: #### L AB15, [id number], [id number], LAB18, [id number], [id number] #### Supervisor Wool Shearing: GARY ESPARZA ([id number]) [facility]) [address] [place] [address] Triglyceride [Mass/Vol] 280 mg/dL High <150 [facility] Comment on above: Order Comment: If no t done in the last six months. Performed By: #### L AB15, [id number], [id number], LAB18, [id number], [id number] #### Supervisor Wool Shearing: GARY ESPARZA ([id number]) [address] Laboratory - Chemistry and C hemistry - challengeOrdered By: Demarcus Becerra on 05-02-2024 Troponin I.cardiac [Mass/Vol] 2.11 ng/mL Critically high NINF - 0.034 ng/mL [facility] Laboratory - Chemistry and C hemistry - challengeOrdered By: Marylou Rueda on 05-02-2024 Troponin I.cardiac [Mass/Vol] 0.314 ng/mL Critically high NINF - 0.034 ng/mL [facility] Laboratory - Chemistry and C hemistry - challengeon 05-02-2024 Magnesium [Mass/Vol] 2.2 mg/dL 1.6 - 2 .3 mg/dL [facility] Troponin I.cardiac [Mass/Vol] ng/mL NINF - 0.034 ng/mL [facility] Troponin I.cardiac [Mass/Vol] ng/mL [facility] ng/mL [facility] Average glucose Estimated from glycated hemoglobin (Bld) [Mass/Vol] 111 mg/dL [facility] TSH Qn 5.341 m[IU]/L High [facility] Magnesium [Mass/Vol] 2.2 mg/dL 1.6 - 2 .3 mg/dL [facility] Laboratory - Hematology and Cell countson 05-02-2024 Hemoglobin (Bld) [Mass/Vol] 12.4 g/dL 11.7 - 16.0 g/dL [facility] HbA1c (Bld) [Mass fraction] 5.5 % NINF - 5.7 % [facility] Comment on above: Normal less than 5.7 % Prediabetes 5.7% to 6.4% Diabetes 6.5% or higher --HgbA1C levels may not be accurate in patients who have renal disease, received recent blood transfusions, are anemic, or who have dyshemoglobinemia. Lipid 1996 panelon Cholesterol [Mass/Vol] 201 mg/dL High NINF - 200 mg/dL [facility] Cholesterol in HDL [Mass/Vol] 64 mg/dL High 40 - 60 mg/dL [facility] Cholesterol in LDL [Mass/Vol] 81 mg/dL 0 - <100 [facility] Cholesterol.total/Chol esterol in HDL [Mass ratio] 3 {ratio} [facility] Comment on above: Ref Range: < 3 Low Risk for CHD 3-6 Mod Risk for CHD > 6 High Risk for CHD Interpretation and review of laboratory results Abnormal [facility] Triglyceride [Mass/Vol] 280 mg/dL High NINF - 150 mg/dL [facility] MAGNESIUMon 05-02-2024 Magnesium [Mass/Vol] 2.2 mg/dL Normal 1.6-2.3 [facility] Comment on above: Performed By: #### L AB15, [id number], [id number], LAB18, [id number], [id number] #### Supervisor Wool Shearing: GARY ESPARZA ([phone]) [facility] ([facility]) [address] [place] [address] Magnesium [Mass/Vol] 2.2 mg/dL Normal 1.6-2.3 [facility] Comment on above: Performed By: #### L AB15, [id number], [id number], LAB18, [id number], [id number] #### Supervisor Wool Shearing: GARY ESPARZA ([id number]) [facility] [address] [place] [address] Magnesium [Mass/Vol]on 05-02 Interpretation and review of laboratory results Normal [facility] Interpretation and review of laboratory results Normal [facility] NT PRO BNPon 05-02-2024 Natriuretic peptide B (Bld) [Mass/Vol] 856 pg/mL High <125 [facility] Comment on above: Performed By: #### L AB15, [id number], [id number], LAB18, [id number], [id number] #### Supervisor Wool Shearing: GARY ESPARZA ([id number]) [facility] ([facility]) [address] [place] [address] Natriuretic peptide B [Mass/ Vol]Ordered By: Jose Manuel Owens on 05-02-2024 Interpretation and review of laboratory results Abnormal [facility] Natriuretic peptide B (Bld) [Mass/Vol] 856 pg/mL High NINF - 125 pg/mL [facility] No Panel Informationon 05-02 Interpretation and review of laboratory results Abnormal [facility] POCT ACT 265 High [facility] POCT ACT 316 High [facility] Performed by: [facility], [address] [place] [address] CLIA ID: [id number] [facility] POCT ACT 282 High [facility] Sinus rhythm BORDERLINE ST DEPRESSION, DIFFUSE LEADS Electronically Signed On 05-02-2024 07:48:39 EST by Rufus Valente Rufus Acevedo MD - 05/02/2024 IMPRESSION: Sinus rhythm BORDERLINE ST DEPRESSION, DIFFUSE LEADS Electronically Signed On 05-02-2024 07:48:39 EST by Rufus Valente [facility] [place] P [place] 46 degrees [facility] GA Interval 140 ms [facility] QRS [place] 39 degrees [facility] QRSD Interval 87 ms [facility] QT Interval 393 ms [facility] QTC Interval 485 ms [facility] T Wave [place] 40 degrees [facility] Sinus rhythm Ventricular bigeminy, brief Probable left atrial enlargement PVCs new since last EKG Electronically Signed On 05-02-2024 07:25:45 EST by Rufus Valente Rufus Acevedo MD - 05/02/2024 IMPRESSION: Sinus rhythm Ventricular bigeminy, brief Probable left atrial enlargement PVCs new since last EKG Electronically Signed On 05-02-2024 07:25:45 EST by Rufus Valente [facility] [place] [facility] [place] No Panel InformationOrdered By: Rufus Valente on 05-02-2024 P [place] 63 degrees [facility] [address] [place] Work Phone: [phone] [place] Interval 147 ms [facility] [address] [place] Work Phone: QRS [place] 8 degrees [facility] [place] Work Phone: QRSD Interval 97 ms [facility] [place] Work Phone: QT Interval 392 ms [facility] [address] [place] Work Phone: QTC Interval 462 ms [facility] [place] Work Phone: T Wave [place] 40 degrees [facility] [place] Work Phone: [facility] [place] Work Phone: Progress Noteon 05-02-2024 Progress Note Patient transferred to CCU s/p multivessel PCI. She denies chest pain/pressure, palpitations, shortness of breath, or any other acute concerns at this time. Vitals are stable. Will hold isosorbide mononitrate. Start on rosuvastatin 40 mg nightly. Continue on DAPT. Will monitor for any acute changes. Normal [facility] THYROID STIMULATING HORMONEo n 05-02-2024 THYROID STIMULATING HORMONE 5.341 uIU/mL High 0.465-4.68 0 [facility] Comment on above: Performed By: #### L AB15, [id number], [id number], LAB18, [id number], [id number] #### Supervisor Wool Shearing: GARY ESPARZA ([id number]) [facility] ([facility]) [address] [place] [address] [place] TROPONIN Ion 05-02-2024 Troponin I.cardiac [Mass/Vol] 2.110 ng/mL Critically high <0.034 [facility] Comment on above: Result Comment: VIDA R COMMENTS: Patients with high levels of Biotin oral intake (ie >5 mg/day) may have falsely decreased Troponin levels. Performed By: #### L AB15, [id number], [id number], LAB18, [id number], [id number] #### Supervisor Wool Shearing: GARY ESPARZA ([id number]) [facility] ([facility]) [address] [place] [address] [place] Troponin I.cardiac [Mass/Vol] ng/mL Normal <0.034 [facility] Comment on above: Result Comment: VIDA R COMMENTS: Patients with high levels of Biotin oral intake (ie >5 mg/day) may have falsely decreased Troponin levels. Performed By: #### L AB15, [id number], [id number], LAB18, [id number], [id number] #### Supervisor Wool Shearing: GARY ESPARZA ([id number]) [facility] ([facility]) [address] [place] [address] [place] Troponin I.cardiac [Mass/Vol] ng/mL Normal <0.034 [facility] Comment on above: Result Comment: VIDA R COMMENTS: Patients with high levels of Biotin oral intake (ie >5 mg/day) may have falsely decreased Troponin levels. Performed By: #### L AB15, [id number], [id number], LAB18, [id number], [id number] #### Supervisor Wool Shearing: GARY ESPARZA ([id number]) [facility] ([facility]) [address] [place] [address] [place] TROPONIN, WITH SERIAL REFLEX on 05-02-2024 Troponin I.cardiac [Mass/Vol] 0.314 ng/mL Critically high <0.034 [facility] Comment on above: Result Comment: VIDA Benitez COMMENTS: Patients with high levels of Biotin oral intake (ie >5 mg/day) may have falsely decreased Troponin levels. Performed By: #### L AB15, [id number], FYV933, LAB18, [id number], [id number] #### Supervisor Wool Shearing: GARY ESPARZA ([id number]) [facility] ([facility]) [address] [place] [address] Troponin I.cardiac [Mass/Vol] ng/mL Normal <0.034 [facility] Comment on above: Result Comment: VIDA Benitez COMMENTS: Patients with high levels of Biotin oral intake (ie >5 mg/day) may have falsely decreased Troponin levels. Performed By: #### L AB15, [id number], [id number], LAB18, [id number], [id number] #### Supervisor Wool Shearing: GARY ESPARZA ([id number]) [facility] ([facility]) [address] [place] [address] TSH Qnon 05-02-2024 Interpretation and review of laboratory results Abnormal [facility] Troponin I.cardiac [Mass/Vol ]Ordered By: Demarcus Becerra on 05-02-2024 Interpretation and review of laboratory results Abnormal [facility] Patients with high l evels of Biotin oral intake (ie >5 mg/day) may have falsely decreased Troponin levels. [facility] Troponin I.cardiac [Mass/Vol ]Ordered By: Marylou Rueda on 05-02-2024 Interpretation and review of laboratory results Abnormal [facility] Patients with high l evels of Biotin oral intake (ie >5 mg/day) may have falsely decreased Troponin levels. [facility] Troponin I.cardiac [Mass/Vol ]on 05-02-2024 Interpretation and review of laboratory results Normal [facility] Patients with high l evels of Biotin oral intake (ie >5 mg/day) may have falsely decreased Troponin levels. [facility] Interpretation and review of laboratory results Normal [facility] Patients with high l evels of Biotin oral intake (ie >5 mg/day) may have falsely decreased Troponin levels. [employer] [address] Interpretation and review of laboratory results Normal [facility] Patients with high l evels of Biotin oral intake (ie >5 mg/day) may have falsely decreased Troponin levels. [facility] US Heart TransthoracicOrdere d By: Nusrat Gant on 05-02-2024 Ao Root Index 1.77 cm/m2 [facility] Work Phone: Aortic Root 3.[facility]: Aortic Sinus Valsalva 3.1 cm [facility] [place] Work Phone: Aortic Sinus Valsalva Index 1.77 cm/m2 [employer] Phone: Ascending Aorta 2.8 cm [facility] Phone: Ascending Aorta Index 1.6 cm/m2 [facility] [employer] Phone: AV Area by Peak Velocity 2.5 cm2 [facility] Phone: AV Area by VTI 2.1 cm2 [facility] Phone: AV Mean Gradient 3 mmHg [facility]: AV Mean Velocity 0.8 m/s [facility] Phone: AV Peak Gradient 4 mmHg [facility] Phone: AV Peak Velocity 1.1 m/s [employer] Phone: AV Velocity Ratio 0.73 [facility] Phone: AV VTI 21.1 cm [facility] Phone: SHAY/BSA Peak Velocity 1.4 cm2/m2 [facility] [place] Work Phone: SHAY/BSA VTI 1.2 cm2/m2 [facility] Phone: E/E' Lateral 5.5 [facility] [address] [place] Work Phone: E/E' Ratio (Averaged) 5.5 [facility] [place] Work Phone: E/E' Septal 5.5 [facility] [employer] Phone: EF BP 59 % 55 - 100 % [facility] [address] [place] Work Phone: Est. RA Pressure 3 mmHg [facility] [place] Work Phone: Fractional Shortening 2D 36 % 28 - 44 % [facility] [address] [place] Work Phone: Global Longitudinal Strain -16.8 % [facility] [place] Work Phone: IVC Diameter 1 cm [facility] [address] [place] Work Phone: IVSd 0.8 cm 0.6 - 0.9 cm [facility] [place] Work Phone: LA Volume 2C 46 mL 22 - 52 mL [facility] [place] Work Phone: LA Volume 4C 47 mL 22 - 52 mL [facility] [place] Work Phone: LA Volume A/L 54 mL [facility] [place] Work Phone: LA Volume BP 50 mL 22 - 52 mL [facility] [place] Work Phone: LA Volume Index 2C 26 mL/m2 16 - 34 mL/m2 [facility] [place] Work Phone: LA Volume Index 4C 27 mL/m2 16 - 34 mL/m2 [facility] [place] Work Phone: LA Volume Index A/L 31 mL/m2 16 - 34 mL/m2 [facility] [place] Work Phone: LA Volume Index BP 29 ml/m2 16 - 34 ml/m2 [facility] [place] Work Phone: LV E' Lateral Velocity 6 cm/s [facility] Work Phone: LV E' Septal Velocity 6 cm/s [facility] Work Phone: LV EDV A2C 56 mL [facility] [place] Work Phone: LV EDV A4C 61 mL [facility] [place] Work Phone: LV EDV BP 60 mL 56 - 104 mL [facility] [place] Work Phone: LV EDV Index A2C 32 mL/m2 [facility] [place] Work Phone: LV EDV Index A4C 35 mL/m2 [facility] [place] Work Phone: LV EDV Index BP 34 mL/m2 [facility] Work Phone: LV Ejection Fraction A2C 60 % [facility] Work Phone: LV Ejection Fraction A4C 59 % [facility] Work Phone: LV ESV A2C 23 mL [facility] Work Phone: LV ESV A4C 25 mL [facility] Work Phone: LV ESV BP 24 mL 19 - 49 mL [facility] Work Phone: LV ESV Index A2C 13 mL/m2 [facility] Work Phone: LV ESV Index A4C 14 mL/m2 [facility] Work Phone: LV ESV Index BP 14 mL/m2 [employer] Phone: LV Mass 2D 85.1 g 67 - 162 g [employer] Phone: LV Mass 2D Index 48.6 g/m2 43 - 95 g/m2 [employer] Phone: LV RWT Ratio 0.29 [employer] Phone: LVIDd 4.2 cm 3.9 - 5.3 cm [facility] Work Phone: LVIDd Index 2.4 cm/m2 [employer] Phone: LVIDs 2.7 cm [facility] Work Phone: LVIDs Index 1.54 cm/m2 [facility] Work Phone: LVOT Area 3.5 cm2 [facility] Work Phone: LVOT Cardiac Output 3.4 liter/mi nu te [facility] Work Phone: LVOT Diameter 2.1 cm [facility] Work Phone: LVOT Mean Gradient 1 mmHg [employer] Phone: LVOT Peak Gradient 3 mmHg [facility] Work Phone: LVOT Peak Velocity 0.8 m/s [employer] Phone: LVOT Stroke Volume Index 25.7 mL/m2 [facility] [place] Work Phone: LVOT SV 45 ml [facility] [place] Work Phone: LVOT VTI 13 cm [facility] [place] Work Phone: LVOT:AV VTI Index 0.62 [facility] [address] [place] Work Phone: LVPWd 0.6 cm 0.6 - 0.9 cm [facility] [place] Work Phone: MR VTI 147.8 cm [facility] [place] Work Phone: MV A Velocity 0.62 m/s [facility] [place] Work Phone: MV E Velocity 0.33 m/s [facility] Work Phone: MV E/A 0.53 [facility] [employer] Phone: MV Nyquist Velocity 36 cm/s [facility] [employer] Phone: MV Regurg Velocity PISA 5.7 m/s [facility] [employer] Phone: RA Area 4C 38.4 mL [facility] [address] [place] Work Phone: RA Area 4C 36.7 mL [facility] [place] Work Phone: RV Free Wall Peak S' 9 cm/s [facility] [place] Work Phone: RVSP 21 mmHg [facility] [place] Work Phone: Sinotubular [place]unction 2.8 cm [facility] [place] Work Phone: TAPSE 1.8 cm 1.7 cm [facility] [place] Work Phone: TR Max Velocity 2.1 m/s [facility] [place] Work Phone: TR Peak Gradient 18 mmHg [facility] [place] Work Phone: [facility] [employer] Phone: Heart Transthoracicon Left Ventricle: Left ventricle [...] on 05-02-2024 Heart rate 83 /min bpm [facility] Work Phone: Vital signson 05-02-2024 Heart rate 91 /min bpm [facility] XR CHEST 1 VIEWon 05-02-2024 XR CHEST 1 VIEW Patient Name: NISSA TROTTER DOB: 1955 Exam Date/Time: 05/02/2024 08:09 Procedure: XR [...] Electronically Signed Date/Time: 05/02/2024 7:49 AM EST [facility] XR Chest Single viewon 05-02 No acute cardiopulmonary disease. Report Dictated on Electronically Signed By: Robson Simmons MD Electronically Signed Date/Time: 05/02/2024 7:49 AM EST [facility] Patient Name: NISSA TROTTER : 1955 [...] of the chest are unremarkable as visualized. [facility] Robson Simmons MD - 05/02/2024 Patient Name: [...] Electronically Signed Date/Time: 05/02/2024 7:49 AM EST [facility] Radiology Study observation (narrative) [facility] XR Chest Single viewOrdered By: Robson Simmons on 05-02-2024 [facility] aPTT Coag (Bld) [Time]on aPTT Coag (PPP) [Time] 70.3 s High 20.0 - 30.5 s [facility] Interpretation and review of laboratory results Abnormal [facility] NOTE: The therapeuti c time for Heparin anticoagulation, based on Xa activity inhibition, is an APTT of 46-80 seconds. [facility] aPTT Coag (PPP) [Time] 25.6 s 20.0 - 30.5 s [facility] Interpretation and review of laboratory results Normal [facility] NOTE: The therapeuti c time for Heparin anticoagulation, based on Xa activity inhibition, is an APTT of 46-80 seconds. [facility] Basophil percentageOrdered B y: Teresa Boggs on 10-05-2023 Bilirubin [Mass/Vol] 0.70 mg/dL 0.20-1.00 [facility] Comment on above: For patients on eltr ombopag therapy, use of Dimension [place] TBIL is not recommended. Chloride [Moles/Vol] 107 mmol/L 98-107 [facility] Glucose [Mass/Vol] 99 mg/dL 74-106 [facility] Potassium [Moles/Vol] 4.3 mmol/L 3.5-5.1 [facility] Protein [Mass/Vol] 7.2 g/dL 6.4-8.2 [facility] Sodium [Moles/Vol] 137 mmol/L 136-145 [facility] Laboratory - Chemistry and C hemistry - challengeOrdered By: Teresa Boggs on 10-05-2023 Albumin/Globulin [Mass ratio] 1.2 {ratio} 0.9-2.4 [facility] ALP [Catalytic activity/Vol] 53 U/L 45-117 [facility] ALT [Catalytic activity/Vol] 19 U/L 13-56 [facility] CO2 [Moles/Vol] 20.0 mmol/L 21.0-32.0 [facility] Globulin (S) [Mass/Vol] 3.2 g/dL 2.2-4.2 [facility] Urea nitrogen/Creatinine [Mass ratio] 17.0 mg/mg 10-20 [facility] No Panel InformationOrdered By: Teresa Boggs on 10-05-2023 Estimated GFR (MDRD) Amer 62 mL/min >60 [facility] Comment on above: GFR Calc Estimated GFR (MDRD) Non-Af Amer 51 mL/min >60 [facility] Comment on above: Non- GFR Calc Free Triiodothyronine (T3) pg/dL 2.1 pg/mL 2.18-3.98 [facility] Serum or plasma calcium cate urement (mass/volume)Ordered By: Teresa Boggs on 10-05-2023 Calcium [Mass/Vol] 9.3 mg/dL 8.5-10.1 [facility] Serum or plasma creatinine m easurement (mass/volume)Ordered By: Teresa Boggs on 10-05-2023 Creatinine [Mass/Vol] 1.12 mg/dL 0.55-1.02 [facility] Comment on above: The validity of the calculated GFR & GFRAA in patients over 70 years has not been determined. Clinical correlation is essential. Serum or plasma thyroid stim ulating hormone (TSH) measurement (units/volume)Ordered By: Teresa Boggs on 10-05-2023 TSH Qn 3.19 uIU/mL 0.358-3.74 [facility] Serum or plasma urea nitroge n measurement (mass/volume)Ordered By: Teresa Boggs on 10-05-2023 Urea nitrogen [Mass/Vol] 19 mg/dL 7-18 [facility] Thin prep Papanicolaou smear with manual screeningOrdered By: Teresa Boggs on 10-05-2023 Thin prep Papanicolaou smear with manual screening 4.0 g/dL 3.2-5.0 [facility] Thin prep Papanicolaou smear with manual screening 19 U/L 15-37 [facility] Thin prep Papanicolaou smear with manual screening 10 5-15 [facility] Thin prep Papanicolaou smear with manual screening 0.93 ng/dL 0.76-1.46 [facility] Absolute lymphocyte countOrd ered By: Teresa Chrisrenée on 2023 Lymphocytes Auto (Unsp spec) [#/Vol] 2.29 10*3/uL 0.83-4.51 [facility] Automated lymphocyte count a s percentage of total leukocytesOrdered By: Teresa Perezrenée on 2023 Lymphocytes/100 WBC Auto (Unsp spec) 25.7 % 19-41 [facility] Basophil percentageOrdered B y: Teresa Boggs on 2023 Basophils/100 WBC (Bld) 0.8 % 0-1 [facility] Chloride [Moles/Vol] 111 mmol/L 98-107 [facility] Eosinophils/100 WBC (Bld) 3.3 % 0-5 [facility] Glucose [Mass/Vol] 106 mg/dL 74-106 [facility] Comment on above: Fasting Glucose resu lt from 100 to 125 mg/dL suggests IMPAIRED HOMEOSTASIS per A.D.A. criteria. Hemoglobin (Bld) [Mass/Vol] 14.0 g/dL 12.0-15.0 [facility] Monocytes/100 WBC (Bld) 8.1 % 0-10 [facility] Neutrophils (Bld) [#/Vol] 5.5 10*3/uL 2.0-7.7 [facility] Neutrophils/100 WBC (Bld) 61.3 % 47-70 [facility] Potassium [Moles/Vol] 3.9 mmol/L 3.5-5.1 [facility] Sodium [Moles/Vol] 138 mmol/L 136-145 [facility] WBC (Bld) [#/Vol] 8.9 10*3/uL 4.4-11.0 [facility] Determination of erythrocyte mean corpuscular volume (MCV)Ordered By: Teresa Boggs on 2023 MCV (RBC) [Entitic vol] 96.2 fL 81-99 [facility] Erythrocyte distribution wid th ratioOrdered By: Teresa Boggs on 2023 Erythrocyte distribution width (RBC) [Ratio] 12.5 % 11.6-14.6 [facility] Erythrocyte distribution wid th standard deviationOrdered By: Teresa Boggs on 2023 Erythrocyte distribution width (RBC) [Entitic vol] 44.4 fL 35.1-43.9 [facility] Erythrocyte sedimentation ra teOrdered By: Teresa Boggs on 2023 ESR (Bld) [Velocity] 13 mm/h 0-30 [facility] Hematocrit Auto (Bld) [Volum e fraction]Ordered By: Teresa Boggs on 2023 Hematocrit (Bld) [Volume fraction] 43.2 % 37-47 [facility] Immature granulocytes/100 WB C Auto (Bld)Ordered By: Treesa Boggs on 2023 Immature granulocytes/100 WBC (Bld) 0.800 % 0.0-0.9 [facility] Comment on above: IG% - Immature Granu locytes (promyelocytes, myelocytes and metamyelocytes) > 1% indicates that a LEFT SHIFT is Present. Laboratory - Chemistry and C hemistry - challengeOrdered By: Teresa Boggs on 2023 CO2 [Moles/Vol] 21.0 mmol/L 21.0-32.0 [facility] Urea nitrogen/Creatinine [Mass ratio] 28.6 mg/mg 10-20 [facility] Laboratory - Hematology and Cell countsOrdered By: Teresa Boggs on 2023 MCH (RBC) [Entitic mass] 31.2 pg 27.0-32.0 [facility] MCHC (RBC) [Mass/Vol] 32.4 g/dL 32-36 [facility] Nucleated RBC/100 WBC (Bld) [Ratio] 0 % 0-5 [facility] Platelet mean volume (Bld) [Entitic vol] 9.0 fL 6.2-12.0 [facility] Platelets (Bld) [#/Vol] 275 10*3/uL 150-450 [facility] No Panel InformationOrdered By: Teresa Boggs on 2023 C-Reactive Protein Extended Range < 2.90 mg/L 0.0-3.0 [facility] Comment on above: C-Reactive Protein ( CRP) provides useful information for thediagnosis, therapy and monitoring of inflammatory processesand associated diseases. For the evaluation of Relative Riskfor Cardiovascular Disease, a High Sensitivity CRP (HSCRP)should be ordered. Estimated GFR (MDRD) Amer 67 mL/min >60 [facility] Comment on above: GFR Calc Estimated GFR (MDRD) Non-Af Amer 55 mL/min >60 [facility] Comment on above: Non- GFR Calc RBC Auto (Bld) [#/Vol]Ordere d By: Teresa Boggs on 2023 RBC (Bld) [#/Vol] 4.49 10*6/uL 4.2-5.4 [facility] Serum or plasma calcium cate urement (mass/volume)Ordered By: Tersea Boggs on 2023 Calcium [Mass/Vol] 9.5 mg/dL 8.5-10.1 [facility] Serum or plasma creatinine m easurement (mass/volume)Ordered By: Teresa Boggs on 2023 Creatinine [Mass/Vol] 1.05 mg/dL 0.55-1.02 [facility] Comment on above: The validity of the calculated GFR & GFRAA in patients over 70 years has not been determined. Clinical correlation is essential. Serum or plasma urea nitroge n measurement (mass/volume)Ordered By: Teresa Boggs on 2023 Urea nitrogen [Mass/Vol] 30 mg/dL 7-18 [facility] Thin prep Papanicolaou smear with manual screeningOrdered By: Teresa Boggs on 2023 Thin prep Papanicolaou smear with manual screening 6 5-15 [facility] Basophil percentageOrdered B y: Teresa Boggs on 07-27-2023 Bilirubin [Mass/Vol] 0.70 mg/dL 0.20-1.00 [facility] Comment on above: For patients on eltr ombopag therapy, use of Dimension [place] TBIL is not recommended. Protein [Mass/Vol] 7.0 g/dL 6.4-8.2 [facility] Direct bilirubinOrdered By: Teresa Boggs on 07-27-2023 Bilirubin.direct [Mass/Vol] 0.14 mg/dL 0.00-0.30 [facility] Laboratory - Chemistry and C hemistry - challengeOrdered By: Teresa Boggs on 07-27-2023 ALP [Catalytic activity/Vol] 58 U/L 45-117 [facility] ALT [Catalytic activity/Vol] 24 U/L 13-56 [facility] Globulin (S) [Mass/Vol] 3.1 g/dL 2.2-4.2 [facility] No Panel InformationOrdered By: Teresa Boggs on 07-27-2023 Free Triiodothyronine (T3) pg/dL 2.3 pg/mL 2.18-3.98 [facility] Serum or plasma thyroid stim ulating hormone (TSH) measurement (units/volume)Ordered By: Teresa Boggs on 07-27-2023 TSH Qn 2.19 uIU/mL 0.358-3.74 [facility] Thin prep Papanicolaou smear with manual screeningOrdered By: Teresa Boggs on 07-27-2023 Thin prep Papanicolaou smear with manual screening 3.9 g/dL 3.2-5.0 [facility] Thin prep Papanicolaou smear with manual screening 22 U/L 15-37 [facility] Thin prep Papanicolaou smear with manual screening 0.70 ng/dL 0.76-1.46 [facility] Basophil percentageOrdered B y: Dustin Allan on 07-01-2023 Bilirubin [Mass/Vol] 1.50 mg/dL 0.20-1.00 [facility] Comment on above: For patients on eltr ombopag therapy, use of Dimension [place] TBIL is not recommended. Cholesterol [Mass/Vol] 188 mg/dL <200 [facility] Comment on above: <200 mg/dL Desirable 200-240 mg/dL Borderline >240 mg/dL High Risk Protein [Mass/Vol] 7.7 g/dL 6.4-8.2 [facility] Triglyceride [Mass/Vol] 147 mg/dL <199 [facility] Comment on above: The drugs N-Acetylcy steine and Metamizole may falsely depress this assay.Serum Triglycerides Reference Interval Normal <150 mg/dL Borderline high 150 - 199 mg/dL High 200 - 499 mg/dL Very High > or = 500 mg/dL Direct bilirubinOrdered By: Dustin Lemus on 07-01-2023 Bilirubin.direct [Mass/Vol] 0.25 mg/dL 0.00-0.30 [facility] Laboratory - Chemistry and C hemistry - challengeOrdered By: Dustin Lemus on 07-01-2023 ALP [Catalytic activity/Vol] 58 U/L 45-117 [facility] ALT [Catalytic activity/Vol] 23 U/L 13-56 [facility] Globulin (S) [Mass/Vol] 3.5 g/dL 2.2-4.2 [facility] Serum or plasma albumin cate urement (mass/volume)Ordered By: Dustin Lemus on 07-01-2023 Albumin [Mass/Vol] 4.2 g/dL 3.2-5.0 [facility] Serum or plasma cholesterol in HDL measurement (mass/volume)Ordered By: Dustin Lemus on 07-01-2023 Cholesterol in HDL [Mass/Vol] 57 mg/dL >40 [facility] Comment on above: The drugs N-Acetylcy steine and Metamizole may falsely depress this assay. Reference Range HDL <40 mg/dL Low HDL Cholesterol HDL >or= 60 mg/dL High HDL Cholesterol Serum or plasma cholesterol in VLDL measurement (mass/volume)Ordered By: Dustin Lemus on 07-01-2023 Cholesterol in VLDL [Mass/Vol] 29 mg/dL 5-40 [facility] Serum or plasma low density lipoprotein (LDL) cholesterol measurement (mass/volume)Ordered By: Dustin Lemus on 07-01-2023 Cholesterol in LDL [Mass/Vol] 102 mg/dL 0-130 [facility] Thin prep Papanicolaou smear with manual screeningOrdered By: Dustin Lemus on 07-01-2023 Thin prep Papanicolaou smear with manual screening 28 U/L 15-37 [facility] Absolute lymphocyte countOrd ered By: Sharla Dubois on 01-07-2023 Lymphocytes Auto (Unsp spec) [#/Vol] 1.96 10*3/uL 0.83-4.51 [facility] Basophil percentageOrdered B y: Sharla Dubois on 01-07-2023 Basophils/100 WBC (Bld) 0.7 % 0-1 [facility] Chloride [Moles/Vol] 104 mmol/L 98-107 [facility] Eosinophils/100 WBC (Bld) 4.5 % 0-5 [facility] Glucose [Mass/Vol] 93 mg/dL 74-106 [facility] Neutrophils (Bld) [#/Vol] 3.9 10*3/uL 2.0-7.7 [facility] Neutrophils/100 WBC (Bld) 57.7 % 47-70 [facility] Potassium [Moles/Vol] 3.9 mmol/L 3.5-5.1 [facility] Sodium [Moles/Vol] 139 mmol/L 136-145 [facility] WBC (Bld) [#/Vol] 6.7 10*3/uL 4.4-11.0 [facility] Basophil percentageOrdered B y: Dustin Allan on 01-07-2023 Bilirubin [Mass/Vol] 0.80 mg/dL 0.20-1.00 [facility] Comment on above: For patients on eltr ombopag therapy, use of Dim[employer] [place] TBIL is not recommended. Cholesterol [Mass/Vol] 193 mg/dL <200 [facility] Comment on above: <200 mg/dL Desirable 200-240 mg/dL Borderline >240 mg/dL High Risk Protein [Mass/Vol] 7.7 g/dL 6.4-8.2 [facility] Triglyceride [Mass/Vol] 277 mg/dL <199 [facility] Comment on above: The drugs N-Acetylcy steine and Metamizole may falsely depress this assay.Serum Triglycerides Reference Interval Normal <150 mg/dL Borderline high 150 - 199 mg/dL High 200 - 499 mg/dL Very High > or = 500 mg/dL Blood erythrocytes count (nu mber/volume)Ordered By: Sharla Dubois on 01-07-2023 RBC (Bld) [#/Vol] 4.34 10*6/uL 4.2-5.4 [facility] Blood hemoglobin measurement (mass/volume)Ordered By: Sharla Dubois on 01-07-2023 Hemoglobin (Bld) [Mass/Vol] 14.3 g/dL 12.0-15.0 [facility] Blood lymphocytes/100 leukoc ytesOrdered By: Sharla Dubois on 01-07-2023 Lymphocytes/100 WBC (Bld) 29.3 % 19-41 [facility] Blood monocytes/100 leukocyt esOrdered By: Sharla Dubois on 01-07-2023 Monocytes/100 WBC (Bld) 7.5 % 0-10 [facility] Blood platelet mean volumeOr dered By: Sharla Dubois on 01-07-2023 Platelet mean volume (Bld) [Entitic vol] 9.4 fL 6.2-12.0 [facility] Determination of erythrocyte mean corpuscular volume (MCV)Ordered By: Sharla Dubois on 01-07-2023 MCV (RBC) [Entitic vol] 97.2 fL 81-99 [facility] Direct bilirubinOrdered By: Dustin Lemus on 01-07-2023 Bilirubin.direct [Mass/Vol] 0.16 mg/dL 0.00-0.30 [facility] Hematocrit Auto (Bld) [Volum e fraction]Ordered By: Sharla Dubois on 01-07-2023 Hematocrit (Bld) [Volume fraction] 42.2 % 37-47 [facility] Laboratory - Chemistry and C hemistry - challengeOrdered By: Sharla Dubois on 01-07-2023 CO2 [Moles/Vol] 24.0 mmol/L 21.0-32.0 [facility] Free T4 [Mass/Vol] 0.86 ng/dL 0.76-1.46 [facility] Magnesium [Mass/Vol] 2.7 mg/dL 1.6-2.6 [facility] Natriuretic peptide B (Bld) [Mass/Vol] 107.4 pg/mL 0-100 [facility] Urea nitrogen/Creatinine [Mass ratio] 22.0 mg/mg 10-20 [facility] Laboratory - Chemistry and C hemistry - challengeOrdered By: Dustin Lemus on 01-07-2023 ALP [Catalytic activity/Vol] 67 U/L 45-117 [facility] ALT [Catalytic activity/Vol] 23 U/L 13-56 [facility] Globulin (S) [Mass/Vol] 3.7 g/dL 2.2-4.2 [facility] Laboratory - Hematology and Cell countsOrdered By: Sharla Dubois on 01-07-2023 Erythrocyte distribution width (RBC) [Entitic vol] 44.7 fL 35.1-43.9 [facility] Erythrocyte distribution width (RBC) [Ratio] 12.3 % 11.6-14.6 [facility] Immature granulocytes/100 WBC (Bld) 0.300 % 0.0-0.9 [facility] Comment on above: IG% - Immature Granu locytes (promyelocytes, myelocytes and metamyelocytes) > 1% indicates that a LEFT SHIFT is Present. MCH (RBC) [Entitic mass] 32.9 pg 27.0-32.0 [facility] Nucleated RBC/100 WBC (Bld) [Ratio] 0 % 0-5 [facility] MCHC Auto (RBC) [Mass/Vol]Or dered By: Sharla Dubois on 01-07-2023 MCHC (RBC) [Mass/Vol] 33.9 g/dL 32-36 [facility] No Panel InformationOrdered By: Sharla Dubois on 01-07-2023 Estimated GFR (MDRD) Amer 59 mL/min >60 [facility] Comment on above: GFR Calc Estimated GFR (MDRD) Non-Af Amer 48 mL/min >60 [facility] Comment on above: Non- GFR Calc Free Triiodothyronine (T3) pg/dL 2.4 pg/mL 2.18-3.98 [facility] Thyroid Stimulating Hormone (TSH) 2.40 uIU/mL 0.358-3.74 [facility] Platelets bldOrdered By: Uday Dubois on 01-07-2023 Platelets (Bld) [#/Vol] 308 10*3/uL 150-450 [facility] Serum or plasma albumin cate urement (mass/volume)Ordered By: Dustin Lemus on 01-07-2023 Albumin [Mass/Vol] 4.0 g/dL 3.2-5.0 [facility] Serum or plasma calcium cate urement (mass/volume)Ordered By: Sharla Dubois on 01-07-2023 Calcium [Mass/Vol] 10.2 mg/dL 8.5-10.1 [facility] Serum or plasma cholesterol in HDL measurement (mass/volume)Ordered By: Dustin Lemus on 01-07-2023 Cholesterol in HDL [Mass/Vol] 54 mg/dL >40 [facility] Comment on above: The drugs N-Acetylcy steine and Metamizole may falsely depress this assay. Reference Range HDL <40 mg/dL Low HDL Cholesterol HDL >or= 60 mg/dL High HDL Cholesterol Serum or plasma cholesterol in VLDL measurement (mass/volume)Ordered By: Dustin Lemus on 01-07-2023 Cholesterol in VLDL [Mass/Vol] 55 mg/dL 5-40 [facility] Serum or plasma creatinine m easurement (mass/volume)Ordered By: Sharla Dubois on 01-07-2023 Creatinine [Mass/Vol] 1.18 mg/dL 0.55-1.02 [facility] Comment on above: The validity of the calculated GFR & GFRAA in patients over 70 years has not been determined. Clinical correlation is essential. Serum or plasma low density lipoprotein (LDL) cholesterol measurement (mass/volume)Ordered By: Dustin Lemus on 01-07-2023 Cholesterol in LDL [Mass/Vol] 84 mg/dL 0-130 [facility] Serum or plasma urea nitroge n measurement (mass/volume)Ordered By: Sharla Dubois on 01-07-2023 Urea nitrogen [Mass/Vol] 26 mg/dL 7-18 [facility] Thin prep Papanicolaou smear with manual screeningOrdered By: Sharla Dubois on 01-07-2023 Thin prep Papanicolaou smear with manual screening 11 5-15 [facility] Thin prep Papanicolaou smear with manual screeningOrdered By: Dustin Lemus on 01-07-2023 Thin prep Papanicolaou smear with manual screening 25 U/L 15-37 [facility] Basophil percentageOrdered B y: Dr. Boggs on 09-22-2022 Bilirubin [Mass/Vol] 1.20 mg/dL 0.20-1.00 [facility] Comment on above: For patients on eltr ombopag therapy, use of Dim[employer] [place] TBIL is not recommended. Chloride [Moles/Vol] 104 mmol/L 98-107 [facility] Glucose [Mass/Vol] 103 mg/dL 74-106 [facility] Comment on above: Fasting Glucose resu lt from 100 to 125 mg/dL suggests IMPAIRED HOMEOSTASIS per A.D.A. criteria. Potassium [Moles/Vol] 4.4 mmol/L 3.5-5.1 [facility] Protein [Mass/Vol] 7.2 g/dL 6.4-8.2 [facility] Sodium [Moles/Vol] 135 mmol/L 136-145 [facility] Erythrocyte sedimentation ra teOrdered By: Dr. Boggs on 09-22-2022 ESR (Bld) [Velocity] 5 mm/h 0-30 [facility] Laboratory - Chemistry and C hemistry - challengeOrdered By: Dr. Boggs on 09-22-2022 ALP [Catalytic activity/Vol] 59 U/L 45-117 [facility] ALT [Catalytic activity/Vol] 25 U/L 13-56 [facility] CO2 [Moles/Vol] 25.0 mmol/L 21.0-32.0 [facility] Free T4 [Mass/Vol] 0.82 ng/dL 0.76-1.46 [facility] Globulin (S) [Mass/Vol] 3.2 g/dL 2.2-4.2 [facility] Magnesium [Mass/Vol] 2.5 mg/dL 1.6-2.6 [facility] Urea nitrogen/Creatinine [Mass ratio] 16.5 mg/mg 10-20 [facility] No Panel InformationOrdered By: Dr. Boggs on 09-22-2022 Estimated GFR (MDRD) Amer 54 mL/min >60 [facility] Comment on above: GFR Calc Estimated GFR (MDRD) Non-Af Amer 45 mL/min >60 [facility] Comment on above: Non- GFR Calc Free Triiodothyronine (T3) pg/dL 2.4 pg/mL 2.18-3.98 [facility] Thyroid Stimulating Hormone (TSH) 2.39 uIU/mL 0.358-3.74 [facility] Serum or plasma C reactive p rotein measurement (mass/volume)Ordered By: Dr. Boggs on 09-22-2022 CRP [Mass/Vol] mg/L 0.0-3.0 [facility] Comment on above: C-Reactive Protein ( CRP) provides useful information for thediagnosis, therapy and monitoring of inflammatory processesand associated diseases. For the evaluation of Relative Riskfor Cardiovascular Disease, a High Sensitivity CRP (HSCRP)should be ordered. Serum or plasma albumin cate urement (mass/volume)Ordered By: Dr. Boggs on 09-22-2022 Albumin [Mass/Vol] 4.0 g/dL 3.2-5.0 [facility] Serum or plasma albumin/glob ulin mass ratioOrdered By: Dr. Boggs on 09-22-2022 Albumin/Globulin [Mass ratio] 1.2 {ratio} 0.9-2.4 [facility] Serum or plasma calcium cate urement (mass/volume)Ordered By: Dr. Boggs on 09-22-2022 Calcium [Mass/Vol] 9.5 mg/dL 8.5-10.1 [facility] Serum or plasma creatinine m easurement (mass/volume)Ordered By: Dr. Boggs on 09-22-2022 Creatinine [Mass/Vol] 1.27 mg/dL 0.55-1.02 [facility] Comment on above: The validity of the calculated GFR & GFRAA in patients over 70 years has not been determined. Clinical correlation is essential. Serum or plasma urea nitroge n measurement (mass/volume)Ordered By: Dr. Boggs on 09-22-2022 Urea nitrogen [Mass/Vol] 21 mg/dL 7-18 [facility] Thin prep Papanicolaou smear with manual screeningOrdered By: Dr. Boggs on 09-22-2022 Thin prep Papanicolaou smear with manual screening 21 U/L 15-37 [facility] Thin prep Papanicolaou smear with manual screening 6 5-15 [facility] Laboratory - Chemistry and C hemistry - challengeOrdered By: Dr. Boggs on 07-30-2022 Free T4 [Mass/Vol] 0.81 ng/dL 0.76-1.46 [facility] No Panel InformationOrdered By: Dr. Boggs on 07-30-2022 Free Triiodothyronine (T3) pg/dL 1.9 pg/mL 2.18-3.98 [facility] Thyroid Stimulating Hormone (TSH) 2.49 uIU/mL 0.358-3.74 [facility] Basophil percentageOrdered B y: Dr. Lemus on 07-10-2022 Bilirubin [Mass/Vol] 0.80 mg/dL 0.20-1.00 [facility] Comment on above: For patients on eltr ombopag therapy, use of Dim[employer] [place] TBIL is not recommended. Cholesterol [Mass/Vol] 170 mg/dL <200 [facility] Comment on above: <200 mg/dL Desirable 200-240 mg/dL Borderline >240 mg/dL High Risk Protein [Mass/Vol] 7.2 g/dL 6.4-8.2 [facility] Triglyceride [Mass/Vol] 190 mg/dL <199 [facility] Comment on above: The drugs N-Acetylcy steine and Metamizole may falsely depress this assay.Serum Triglycerides Reference Interval Normal <150 mg/dL Borderline high 150 - 199 mg/dL High 200 - 499 mg/dL Very High > or = 500 mg/dL Direct bilirubinOrdered By: Dr. Lemus on 07-10-2022 Bilirubin.direct [Mass/Vol] 0.22 mg/dL 0.00-0.30 [facility] Laboratory - Chemistry and C hemistry - challengeOrdered By: Dr. Lemus on 07-10-2022 ALP [Catalytic activity/Vol] 55 U/L 45-117 [facility] ALT [Catalytic activity/Vol] 25 U/L 13-56 [facility] Globulin (S) [Mass/Vol] 3.3 g/dL 2.2-4.2 [facility] Serum or plasma albumin cate urement (mass/volume)Ordered By: Dr. Lemus on 07-10-2022 Albumin [Mass/Vol] 3.9 g/dL 3.2-5.0 [facility] Serum or plasma cholesterol in HDL measurement (mass/volume)Ordered By: Dr. Lemus on 07-10-2022 Cholesterol in HDL [Mass/Vol] 66 mg/dL >40 [facility] Comment on above: The drugs N-Acetylcy steine and Metamizole may falsely depress this assay. Reference Range HDL <40 mg/dL Low HDL Cholesterol HDL >or= 60 mg/dL High HDL Cholesterol Serum or plasma cholesterol in VLDL measurement (mass/volume)Ordered By: Dr. Lemus on 07-10-2022 Cholesterol in VLDL [Mass/Vol] 38 mg/dL 5-40 [facility] Serum or plasma low density lipoprotein (LDL) cholesterol measurement (mass/volume)Ordered By: Dr. Lemus on 07-10-2022 Cholesterol in LDL [Mass/Vol] 66 mg/dL 0-130 [facility] Thin prep Papanicolaou smear with manual screeningOrdered By: Dr. Lemus on 07-10-2022 Thin prep Papanicolaou smear with manual screening 22 U/L 15-37 [facility] Laboratory - Chemistry and C hemistry - challengeOrdered By: Dr. Boggs on 05-28-2022 Free T4 [Mass/Vol] 0.89 ng/dL 0.76-1.46 [facility] No Panel InformationOrdered By: Dr. Boggs on 05-28-2022 Free Triiodothyronine (T3) pg/dL 2.2 pg/mL 2.18-3.98 [facility] Thyroid Stimulating Hormone (TSH) 0.34 uIU/mL 0.358-3.74 [facility] Laboratory - Chemistry and C hemistry - challengeOrdered By: Dr. Boggs on 03-31-2022 Free T4 [Mass/Vol] 1.06 ng/dL 0.76-1.46 [facility] No Panel InformationOrdered By: Dr. Boggs on 03-31-2022 Free Triiodothyronine (T3) pg/dL 3.6 pg/mL 2.18-3.98 [facility] Thyroid Stimulating Hormone (TSH) 0.08 uIU/mL 0.358-3.74 [facility] Absolute lymphocyte counton 02-24-2022 Lymphocytes Auto (Unsp spec) [#/Vol] 1.68 10*3/uL 0.83-4.51 [facility] Work Phone: Basophil percentageon 2021 Basophils/100 WBC (Bld) 0.7 % 0-1 [facility] Work Phone: Chloride [Moles/Vol] 105 mmol/L 98-107 [facility] Work Phone: Eosinophils/100 WBC (Bld) 3.2 % 0-5 [facility] Work Phone: Glucose [Mass/Vol] 118 mg/dL 74-106 [facility] Work Phone: Comment on above: Fasting Glucose resu lt from 100 to 125 mg/dL suggests IMPAIRED HOMEOSTASIS per A.D.A. criteria. Neutrophils (Bld) [#/Vol] 3.3 10*3/uL 2.0-7.7 [facility] Work Phone: Neutrophils/100 WBC (Bld) 54.7 % 47-70 [facility] Work Phone: Potassium [Moles/Vol] 3.3 mmol/L 3.5-5.1 [facility] Work Phone: Sodium [Moles/Vol] 140 mmol/L 136-145 [facility] Work Phone: WBC (Bld) [#/Vol] 6.0 10*3/uL 4.4-11.0 [facility] Work Phone: Blood erythrocytes count (nu mber/volume)on 02-24-2022 RBC (Bld) [#/Vol] 4.25 10*6/uL 4.2-5.4 [facility] Work Phone: Blood hemoglobin measurement (mass/volume)on 02-24-2022 Hemoglobin (Bld) [Mass/Vol] 13.5 g/dL 12.0-15.0 [facility] Work Phone: Blood lymphocytes/100 leukoc yteson 02-24-2022 Lymphocytes/100 WBC (Bld) 28.0 % 19-41 [facility] [facility] Work Phone: Blood monocytes/100 leukocyt eson 02-24-2022 Monocytes/100 WBC (Bld) 13.2 % 0-10 [facility] Work Phone: [phone] Blood platelet mean volumeon 02-24-2022 Platelet mean volume (Bld) [Entitic vol] 9.6 fL 6.2-12.0 [facility] Work Phone: [phone] Determination of erythrocyte mean corpuscular volume (MCV)on 02-24-2022 MCV (RBC) [Entitic vol] 94.6 fL 81-99 [facility] Work Phone: Hematocrit Auto (Bld) [Volum e fraction]on 02-24-2022 Hematocrit (Bld) [Volume fraction] 40.2 % 37-47 [facility] Work Phone: Laboratory - Chemistry and C hemistry - challengeon 02-24-2022 CO2 [Moles/Vol] 22.0 mmol/L 21.0-32.0 [facility] Work Phone: Urea nitrogen/Creatinine [Mass ratio] 15.4 mg/mg 10-20 [facility] Work Phone: Laboratory - Hematology and Cell countson 02-24-2022 Erythrocyte distribution width (RBC) [Entitic vol] 47.0 fL 35.1-43.9 [facility] Work Phone: Erythrocyte distribution width (RBC) [Ratio] 13.4 % 11.6-14.6 [facility] Work Phone: Immature granulocytes/100 WBC (Bld) 0.200 % 0.0-0.9 [facility] Work Phone: Comment on above: IG% - Immature Granu locytes (promyelocytes, myelocytes and metamyelocytes) > 1% indicates that a LEFT SHIFT is Present. MCH (RBC) [Entitic mass] 31.8 pg 27.0-32.0 [facility] Work Phone: Nucleated RBC/100 WBC (Bld) [Ratio] 0 % 0-5 [facility] Work Phone: MCHC Auto (RBC) [Mass/Vol]on 02-24-2022 MCHC (RBC) [Mass/Vol] 33.6 g/dL 32-36 [facility] Work Phone: No Panel Informationon 02-24 Troponin I High Sensitivity 24 pg/mL 3.0-54.0 [facility] Work Phone: Comment on above: Please Note: New Neelam t Units and Gender Specific Reference Ranges. For more information see Policy Stat Procedure [place] High Sensitivity Troponin (TNIH) and attachments. D-Dimer Quantitative (PE/DVT) 0.98 FEU/ug/m 0.27-0.49 [facility] Work Phone: Comment on above: D-Dimer ELEVATED (>0 .49): Additional studies and clinicalassessments are indicated to conclude diagnosis of:Deep Vein Thrombosis (DVT) or Pulmonary Embolism (PE)RESULTS CALLED TO Eddie HOLLINGSWORTH RN ED 02/24/22 0912 [place].REPORT READ BACK BY SAME. Estimated Creatinine Clearance Calc 44.06 ml/min [facility] Work Phone: Estimated GFR (MDRD) Amer 73 mL/min >60 [facility] Work Phone: Comment on above: GFR Calc Estimated GFR (MDRD) Non-Af Amer 60 mL/min >60 [facility] Work Phone: Comment on above: Non- GFR Calc Thyroid Stimulating Hormone (TSH) 0.21 uIU/mL 0.358-3.74 [facility] Work Phone: Platelets bldon 02-24-2022 Platelets (Bld) [#/Vol] 314 10*3/uL 150-450 [facility] Work Phone: Serum or plasma calcium cate urement (mass/volume)on 02-24-2022 Calcium [Mass/Vol] 9.6 mg/dL 8.5-10.1 [facility] Work Phone: Serum or plasma creatinine m easurement (mass/volume)on 02-24-2022 Creatinine [Mass/Vol] 0.98 mg/dL 0.55-1.02 [facility] Work Phone: Comment on above: The validity of the calculated GFR & GFRAA in patients over 70 years has not been determined. Clinical correlation is essential. Serum or plasma urea nitroge n measurement (mass/volume)on 02-24-2022 Urea nitrogen [Mass/Vol] 15 mg/dL 7-18 [facility] Work Phone: Thin prep Papanicolaou smear with manual screeningon 02-24-2022 Thin prep Papanicolaou smear with manual screening 13 5-15 [facility] Work Phone: Laboratory - Chemistry and C hemistry - challengeon 01-24-2022 Free T4 [Mass/Vol] 0.81 ng/dL 0.76-1.46 [facility] Work Phone: No Panel Informationon 01-24 Free Triiodothyronine (T3) pg/dL 1.7 pg/mL 2.18-3.98 [facility] Work Phone: Thyroid Stimulating Hormone (TSH) 0.86 uIU/mL 0.358-3.74 [facility] Work Phone: Serum or plasma thyroperoxid ase antibody assay (units/volume)on 01-24-2022 TPO Ab Qn [IU]/mL 0-34 [facility] Work Phone: Comment on above: Performed at: [place] [id number] Director: Jeison Velasquez PhD, Phone: [phone] Basophil percentageon 2021 Bilirubin [Mass/Vol] 1.00 mg/dL 0.20-1.00 [facility] Work Phone: Comment on above: For patients on eltr ombopag therapy, use of Dimension [place] TBIL is not recommended. Cholesterol [Mass/Vol] 168 mg/dL <200 [facility] Work Phone: Comment on above: <200 mg/dL Desirable 200-240 mg/dL Borderline >240 mg/dL High Risk Protein [Mass/Vol] 7.2 g/dL 6.4-8.2 [facility] Work Phone: Triglyceride [Mass/Vol] 144 mg/dL <199 [facility] Work Phone: Comment on above: The drugs N-Acetylcy steine and Metamizole may falsely depress this assay.Serum Triglycerides Reference Interval Normal <150 mg/dL Borderline high 150 - 199 mg/dL High 200 - 499 mg/dL Very High > or = 500 mg/dL Direct bilirubinon 2 Bilirubin.direct [Mass/Vol] 0.23 mg/dL 0.00-0.30 [facility] Work Phone: Laboratory - Chemistry and C hemistry - challengeon 01-13-2022 ALP [Catalytic activity/Vol] 54 U/L 45-117 [facility] Work Phone: ALT [Catalytic activity/Vol] 21 U/L 13-56 [facility] Work Phone: Globulin (S) [Mass/Vol] 3.0 g/dL 2.2-4.2 [facility] Work Phone: Serum or plasma albumin cate urement (mass/volume)on 01-13-2022 Albumin [Mass/Vol] 4.2 g/dL 3.2-5.0 [facility] Work Phone: Serum or plasma cholesterol in HDL measurement (mass/volume)on 01-13-2022 Cholesterol in HDL [Mass/Vol] 66 mg/dL >40 [facility] Work Phone: Comment on above: The drugs N-Acetylcy steine and Metamizole may falsely depress this assay. Reference Range HDL <40 mg/dL Low HDL Cholesterol HDL >or= 60 mg/dL High HDL Cholesterol Serum or plasma cholesterol in VLDL measurement (mass/volume)on 01-13-2022 Cholesterol in VLDL [Mass/Vol] 29 mg/dL 5-40 [facility] Work Phone: Serum or plasma low density lipoprotein (LDL) cholesterol measurement (mass/volume)on 01-13-2022 Cholesterol in LDL [Mass/Vol] 73 mg/dL 0-130 [facility] Work Phone: Thin prep Papanicolaou smear with manual screeningon 01-13-2022 Thin prep Papanicolaou smear with manual screening 27 U/L 15-37 [facility] Work Phone: Office Visit: [facility] 02-03-20 17 Documentation of current medications (procedure) Done Invalid Interpretation Code [facility] Work Phone: [phone] Fall risk assessment No Invalid Interpretation Code [facility] Work Phone: [phone] Protein mass conc Done [facility] Work Phone: [phone] Lab Report: Lipid Profileon 01-29-2017 Cholesterol 230 mg/dL High 200 [facility] Work Phone: [phone] HDL Cholesterol 65 mg/dL Invalid Interpretation Code [facility] Work Phone: [phone] LDL Cholesterol 132 mg/dL High 0-130 [facility] Work Phone: [phone] Triglyceride 167 mg/dL Invalid Interpretation Code [facility] Work Phone: [phone] very low density lipoproteins 33 mg/dL Invalid Interpretation Code 5-40 [facility] Work Phone: [phone] Lab Report: Liver Profileon 01-29-2017 Alanine aminotransferase (ALT) 23 U/L Invalid Interpretation Code 12-78 [facility] Work Phone: [phone] Albumin 4.0 g/dL Invalid Interpretation Code 3.4-5.0 [facility] Work Phone: [phone] Alkaline phosphatase (ALP) 65 U/L Invalid Interpretation Code 45-117 [facility] Work Phone: [phone] ALP enzyme act/vol (Bld) 65 U/L 45-117 [facility] Work Phone: [phone] Aspartate aminotransferase (AST) 27 U/L Invalid Interpretation Code 15-37 [facility] Work Phone: [phone] Bilirubin (direct) 0.16 mg/dL Invalid Interpretation Code 0.00-0.30 [facility] Work Phone: [phone] Bilirubin (total) 0.70 mg/dL Invalid Interpretation Code 0.20-1.00 [facility] Work Phone: [phone] Globulin 3.4 g/dL Invalid Interpretation Code 2.3-3.5 [facility] Work Phone: [phone] Globulin mass conc (S) 3.4 g/dL 2.3-3.5 [facility] Work Phone: [phone] Protein 7.4 g/dL Invalid Interpretation Code 6.4-8.2 [facility] Work Phone: [phone] Office Visiton 08-06-2016 Documentation of current medications (procedure) Done Invalid Interpretation Code [facility] Work Phone: [phone] Protein mass conc Done [facility] Work Phone: [phone] 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 Left ventricular Ejection fraction 60 % Invalid Interpretation Code [facility] Work Phone: [phone] Office Visit: postop surgery 06/17/on 06-24-2016 Dietary management education, guidance, and counseling (procedure) yes Invalid Interpretation Code [facility] Work Phone: [phone] Tobacco smoking status NHIS Never Invalid Interpretation Code [facility] Work Phone: [phone] Tobacco smoking status ILIS Former smoker [facility] Work Phone: [phone] Tobacco use [facility] Former smoker Invalid Interpretation Code [facility] Work Phone: [phone] Append: CR - Individual Cheryl tment PlanOriginal Ordering Provider: Nurys 03-09-2016 Clinical consultation report (record artifact) [id number]^11/15/2015 Invalid Interpretation Code [facility] Work Phone: [phone] Replaced Document: Kathya Rizo CG Observationson 11-15-2015 EKG QRS axis -4 deg [facility] Work Phone: [phone] electrocardiogram interpretation Sinus Bradycardia Low voltage in limb leads. - Negative T-waves -Possible Inferior ischemia. ABNORMAL Invalid Interpretation Code [facility] Work Phone: [phone] GE use only - for [employer] import when terms are not otherwise specified 470 ms Invalid Interpretation Code [facility] Work Phone: [phone] Interpretation Sinus Bradycardia Lo w voltage in limb leads. - Negative T-waves -Possible Inferior ischemia. ABNORMAL [facility] Work Phone: [phone] [place] 44 deg [facility] Work Phone: [phone] P wave axis, electrocardiogram 44 deg Invalid Interpretation Code [facility] Work Phone: [phone] GA Interval 150 ms [facility] Work Phone: [phone] GA interval, electrocardiogram 150 ms Invalid Interpretation Code [facility] Work Phone: [phone] Pulse (Heart Rate) 52 /min Invalid Interpretation Code [facility] Work Phone: [phone] QRS axis, electrocardiogram -4 deg Invalid Interpretation Code [facility] Work Phone: [phone] QRS Duration 102 ms [facility] Work Phone: [phone] QRS duration, electrocardiogram 102 ms Invalid Interpretation Code [facility] Work Phone: [phone] QT Interval new path ms [facility] Work Phone: [phone] QT interval, electrocardiogram new path ms Invalid Interpretation Code [facility] Work Phone: [phone] QTc Pyle 470 ms [facility] Work Phone: [phone] T [place] -45 deg [facility] Work Phone: [phone] T wave axis, electrocardiogram -45 deg Invalid Interpretation Code [facility] Work Phone: [phone] 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 Work Phone: [phone] CO2 ppres (BldV) 23 mmol/L [facility] Work Phone: [phone] Creatinine 0.84 mg/dL Invalid Interpretation Code [facility] Work Phone: [phone] eGFR (non-black) mL/min/{1.73_m2} Invalid Interpretation Code [facility] Work Phone: [phone] Erythrocyte distribution width Ratio (RBC) 13.8 % [facility] Work Phone: [phone] Erythrocytes (RBC) 3.77 10*6/uL Low [facility] Work Phone: [phone] Glomerular Filtration Rate >60 [facility] Work Phone: [phone] Glucose 88 mg/dL Invalid Interpretation Code [facility] Work Phone: [phone] Glucose mass conc 88 mg/dL [facility] Work Phone: [phone] Hematocrit (HCT) 35.3 % Invalid Interpretation Code [facility] Work Phone: [phone] Hematocrit Volume Fraction (Bld) 35.3 % [facility] Work Phone: [phone] Hemoglobin (HGB) 11.9 g/dL Invalid Interpretation Code [facility] Work Phone: [phone] Magnesium 1.9 mg/dL Invalid Interpretation Code [facility] Work Phone: [phone] MCH 31.6 pg Invalid Interpretation Code [facility] Work Phone: [phone] MCH Entitic mass (RBC) 31.6 pg [facility] Work Phone: [phone] MCHC 33.7 g/dL Invalid Interpretation Code [facility] Work Phone: [phone] MCHC mass conc (RBC) 33.7 g/dL [facility] Work Phone: [phone] MCV 93.6 fL Invalid Interpretation Code [facility] Work Phone: [phone] MCV Entitic volume (RBC) 93.6 fL [facility] Work Phone: [phone] Platelet mean volume Entitic volume (Bld) 10.3 fL [facility] Work Phone: [phone] Platelets 175 10*3/mm3 Invalid Interpretation Code [facility] Work Phone: [phone] Platelets #/vol (Bld) 175 10*3/mm3 [facility] Work Phone: [phone] PMV by Momo 10.3 fL Invalid Interpretation Code [facility] Work Phone: [phone] Potassium 4.0 mmol/L Invalid Interpretation Code [facility] Work Phone: [phone] RBC #/vol (Bld) 3.77 10*6/uL Low [facility] Work Phone: [phone] RDW-CA 13.8 % Invalid Interpretation Code [facility] Work Phone: [phone] Sodium 141 mmol/L Invalid Interpretation Code [facility] Work Phone: [phone] Urea nitrogen 11 mg/dL Invalid Interpretation Code [facility] Work Phone: [phone] WBC #/vol (Bld) 7.6 10*3/uL [facility] Work Phone: [phone] WBC (Leukocytes) 7.6 10*3/uL Invalid Interpretation Code [facility] Work Phone: [phone]) Lab Report: CK-MB Quantitati ve and Indexon 10-21-2015 CKMB Test not performed % Invalid Interpretation Code 0.0-1.4 [facility] Work Phone: [phone] CKMB ng/mL Invalid Interpretation Code 0.0-5.0 [facility] Work Phone: [phone] Creatine kinase (CK) 38 U/L Invalid Interpretation Code 26-192 [facility] Work Phone: [phone] Creatine kinase.MB < 0.5 ng/mL 0.0-5.0 [facility] Work Phone: [phone]) Lab Report: Partial Thrombop last Timeon 10-21-2015 aPTT 20.0 s Low 24.1-36.2 [facility] Work Phone: [phone]) Lab Report: Prothrombin Time w/INRon 10-21-2015 Coagulation tissue factor induced in platelet poor plasma 11.8 s Invalid Interpretation Code 11.7-14.9 [facility] Work Phone: [phone] INR Coag RelTime (PPP) 0.9 {INR} [facility] Work Phone: [phone] INR in blood by coagulation 0.9 {INR} Invalid Interpretation Code [facility] Work Phone: [phone] Lab Report: Troponin-Ion Troponin I 0.02 ng/mL Invalid Interpretation Code <0.06 [facility] Work Phone: [phone]) Office Visit: F/u Hypothyroi dism, HTN, GERDon 06-11-2015 HbA1c 5.5 % Invalid Interpretation Code [facility] Work Phone: [phone] Lab Report: Basic Metabolic Profile (BMP)on 02-06-2015 Anion gap 9 mmol/L Invalid Interpretation Code 5-15 [facility] Work Phone: [phone] Anion gap molar conc 9 mmol/L 5-15 [facility] Work Phone: [phone] BUN/Creatinine Ratio 18.6 RATIO Invalid Interpretation Code 10-20 [facility] Work Phone: [phone] eGFR (non-black) 52 mL/min/{1.73_m2} Low >60 [facility] Work Phone: [phone] eGFR (non-black) 63 mL/min/{1.73_m2} Invalid Interpretation Code >60 [facility] Work Phone: [phone] EST GFR - AA 63 mL/min >60 [facility] Work Phone: [phone] Lab Report: CBC W/Diff, Auto matedon 02-06-2015 Absolute Neut 3.5 X10 3/UL 2.0-7.7 [facility] Work Phone: [phone] Absolute Neutrophil count 3.5 X10 3/UL Invalid Interpretation Code 2.0-7.7 [facility] Work Phone: [phone] Basophils/100 leukocytes 0.3 % Invalid Interpretation Code 0-1 [facility] Work Phone: [phone] Basophils/100 WBC (Bld) 0.3 % 0-1 [facility] Work Phone: [phone] Eosinophils/100 leukocytes 3.7 % Invalid Interpretation Code 0-5 [facility] Work Phone: [phone] Eosinophils/100 WBC (Bld) 3.7 % 0-5 [facility] Work Phone: [phone] Erythrocyte distribution width Ratio (RBC) 42.4 fL 35.1-43.9 [facility] Work Phone: [phone] Immature granulocytes #/vol (Bld) 0.200 % 0.0-0.9 [facility] Work Phone: [phone] immature granulocytes, percentage of total cells, blood 0.200 % Invalid Interpretation Code 0.0-0.9 [facility] Work Phone: [phone] Lymphocytes 2.36 X10 3/UL Invalid Interpretation Code 0.83-4.51 [facility] Work Phone: [phone] Lymphocytes #/vol (Bld) 2.36 X10 3/UL 0.83-4.51 [facility] Work Phone: [phone] Lymphocytes/100 leukocytes 36.1 % Invalid Interpretation Code 19-41 [facility] Work Phone: [phone] Lymphocytes/100 WBC (Bld) 36.1 % 19-41 [facility] Work Phone: [phone] Monocytes/100 leukocytes 6.6 % Invalid Interpretation Code 0-10 [facility] Work Phone: [phone] Monocytes/100 WBC (Bld) 6.6 % 0-10 [facility] Work Phone: [phone] Neutrophils/100 leukocytes 53.1 % Invalid Interpretation Code 47-70 [facility] Work Phone: [phone] Neutrophils/100 WBC (Bld) 53.1 % 47-70 [facility] Work Phone: [phone] red blood cell distribution width, size density 42.4 fL Invalid Interpretation Code 35.1-43.9 [facility] Work Phone: [phone] Lab Report: T4 Total, Thyrox inon 02-06-2015 Thyroxine (T4) 10.3 ug/dL Invalid Interpretation Code 4.8-13.9 [facility] Work Phone: [phone] Lab Report: Thyroid Stim Hor ninoska (TSH)on 02-06-2015 Thyroid stimulating hormone (TSH) 3.66 u[iU]/mL Invalid Interpretation Code 0.358-3.74 [facility] Work Phone: [phone] [facility] Protein mass conc yes [facility] Work Phone: Smoking cessation education (procedure) yes Invalid Interpretation Code [facility] Work Phone: [phone] Lab Report: (P) Urinalysis, Completeon 10-05-2014 specific gravity, urine 1.010 Invalid Interpretation Code 1.002-1.03 0 [facility] Work Phone: Office Visiton 08-07-2014 cardiac risk group C Invalid Interpretation Code [facility] Work Phone: General cardiovascular disease 10Y risk [#] [place]D'Agost[place] N/A Invalid Interpretation Code [facility] Work Phone: [phone] Office Visiton 07-24-2014 Albumin Ql (U) trace [facility] Work Phone: [phone] Bilirubin Ql (U) Negative [facility] Work Phone: [phone] blood in urine (hemoglobin) by dipstick Negative Invalid Interpretation Code [facility] Work Phone: [phone] Glucose Test strip mass conc (U) Negative [facility] Work Phone: [phone] Ketones mass conc (U) Negative [facility] Work Phone: [phone] Nitrite Ql (U) Negative [facility] Work Phone: [phone] pH (U) 5.0 [pH] [facility] Work Phone: [phone] Urine, appearance cloudy Invalid Interpretation Code [facility] Work Phone: [phone] Urine, bilirubin presence Negative Invalid Interpretation Code [facility] Work Phone: [phone] Urine, color yellow Invalid Interpretation Code [facility] Work Phone: [phone] Urine, glucose presence Negative Invalid Interpretation Code [facility] Work Phone: [phone] Urine, ketones presence Negative Invalid Interpretation Code [facility] Work Phone: [phone] Urine, leukocyte esterase presence Negative Invalid Interpretation Code [facility] Work Phone: [phone] Urine, nitrite presence Negative Invalid Interpretation Code [facility] Work Phone: [phone] Urine, pH 5.0 [pH] Invalid Interpretation Code [facility] Work Phone: [phone] Urine, protein trace Invalid Interpretation Code [facility] Work Phone: [phone] Urine, urobilinogen presence 0.2 Invalid Interpretation Code [facility] Work Phone: [phone] External Other: Preferred Me thod of Contacton 01-25-2014 methcontact secmsg [facility] Work Phone: [phone] Patient's prefered method of contact secmsg Invalid Interpretation Code [facility] Work Phone: [phone] Lab Report: WPon 07-25-2013 WBC #/vol (Bld) WBC 0-5 Normal [facility] Work Phone: [phone] WBC (Leukocytes) WBC 0-5 Normal [facility] Work Phone: [phone] EKG Report: [facility] ECG Obse rvationson 04-27-2013 Pulse (Heart Rate) 429 ms Invalid Interpretation Code [facility] Work Phone: [phone] Office Visiton 02-26-2013 Colonoscopy (procedure) Colonoscopy (procedure) Invalid Interpretation Code [facility] Work Phone: [phone] Protein mass conc Colonoscopy (procedure) [facility] Work Phone: [phone] Office Visiton 12-26-2012 Breast Mammogram screening Normal Bilateral Invalid Interpretation Code [facility] Phone: [phone] 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 Teresa Boggs DO Work Phone: [facility] 03-02-2025 07:44-0400 Body temperature 97.2 [degF] Dr. Teresa Boggs DO Work Phone: [facility] 03-02-2025 07:44-0400 Body weight 68.[address] Teresa Boggs DO Work Phone: [facility] 03-02-2025 07:44-0400 Diastolic blood pressure 70 mm[Hg] Dr. Teresa Boggs DO Work Phone: [facility] 03-02-2025 07:44-0400 Heart rate 59 /min Dr. Teresa Boggs DO Work Phone: [facility] 03-02-2025 07:44-0400 Respiratory rate 18 /min Dr. Teresa Boggs DO Work Phone: [facility] 03-02-2025 07:44-0400 SaO2% (BldA) [Mass fraction] 97 % Dr. Teresa Boggs DO Work Phone: [facility] 03-02-2025 07:44-0400 Systolic blood pressure 123 mm[Hg] Dr. Teresa Boggs DO Work Phone: [facility] 12-15-2024 05:57-0400 Body mass index (BMI) [Ratio] 27.6 kg/m2 Dr. Teresa Boggs DO Work Phone: [facility] 12-15-2024 05:57-0400 Body temperature 97 [degF] Dr. Teresa Boggs DO Work Phone: [facility] 12-15-2024 05:57-0400 Body weight 67.[address] Teresa Boggs DO Work Phone: [facility] 12-15-2024 05:57-0400 Diastolic blood pressure 72 mm[Hg] Dr. Teresa Boggs DO Work Phone: [facility] 12-15-2024 05:57-0400 Heart rate 63 /min Dr. Teresa Boggs DO Work Phone: [facility] 12-15-2024 05:57-0400 Respiratory rate 16 /min Dr. Teresa Boggs DO Work Phone: [facility] 12-15-2024 05:57-0400 SaO2% (BldA) [Mass fraction] 97 % Dr. Teresa Boggs DO Work Phone: [facility] 12-15-2024 05:57-0400 Systolic blood pressure 139 mm[Hg] Dr. Teresa Boggs DO Work Phone: [facility] 12-14-2024 14:10-0400 Body height 156.[address] Teresa Boggs DO Work Phone: [facility] 10-31-2024 08:45-0400 Body height 156.[address] Teresa Boggs DO Work Phone: [facility] [facility] 10-31-2024 08:45-0400 Body weight 68.[address] Teresa Boggs DO Work Phone: [facility] 10-31-2024 08:45-0400 Heart rate 62 /min Dr. Teresa Boggs DO Work Phone: [facility] 10-31-2024 08:45-0400 SaO2% (BldA) [Mass fraction] 98 % Dr. Teresa Boggs DO Work Phone: [facility] 10-18-2024 09:48-0400 Body mass index (BMI) [Ratio] 28.5 kg/m2 Dr. Teresa Boggs DO Work Phone: [facility] 10-18-2024 09:48-0400 Body temperature 95.1 [degF] Dr. Teresa Boggs DO Work Phone: [facility] 10-18-2024 09:48-0400 Body weight 68.[address] Teresa Boggs DO Work Phone: [facility] 10-18-2024 09:48-0400 Diastolic blood pressure 79 mm[Hg] Dr. Teresa Boggs DO Work Phone: [facility] 10-18-2024 09:48-0400 Heart rate 81 /min Dr. Teresa Boggs DO Work Phone: [facility] 10-18-2024 09:48-0400 Respiratory rate 20 /min Dr. Teresa Boggs DO Work Phone: [facility] 10-18-2024 09:48-0400 SaO2% (BldA) [Mass fraction] 97 % Dr. Teresa Boggs DO Work Phone: [facility] 10-18-2024 09:48-0400 Systolic blood pressure 121 mm[Hg] Dr. Teresa Boggs DO Work Phone: [facility] 09-14-2024 09:52-0400 Body height 154.[address] Teresa Boggs DO Work Phone: [facility] 09-14-2024 09:52-0400 Body weight 69.[address] Teresa Boggs DO Work Phone: [facility] 09-07-2024 07:30-0400 Body mass index (BMI) [Ratio] 29 kg/m2 Dr. Teresa Boggs DO Work Phone: [facility] 09-07-2024 07:30-0400 Body weight 69.[address] Teresa Boggs DO Work Phone: [facility] 09-07-2024 07:30-0400 Diastolic blood pressure 78 mm[Hg] Dr. Teresa Boggs DO Work Phone: [facility] 09-07-2024 07:30-0400 Heart rate 53 /min Dr. Teresa Boggs DO Work Phone: [facility] 09-07-2024 07:30-0400 Respiratory rate 18 /min Dr. Teresa Boggs DO Work Phone: [facility] 09-07-2024 07:30-0400 SaO2% (BldA) [Mass fraction] 99 % Dr. Teresa Boggs DO Work Phone: [facility] 09-07-2024 07:30-0400 Systolic blood pressure 128 mm[Hg] Dr. Teresa Boggs DO Work Phone: [facility] 08-17-2024 09:44-0500 Body height 154.[address] Teresa Boggs DO Work Phone: [facility] 08-17-2024 09:44-0500 Body weight 69.[address] Teresa Boggs DO Work Phone: [facility] 07-20-2024 11:18-0500 Body weight 71.[address] Teresa Boggs DO Work Phone: [facility] 07-20-2024 09:21-0500 Body temperature 98.1 [degF] Dr. Teresa Boggs DO Work Phone: [facility] 07-20-2024 09:21-0500 Diastolic blood pressure 72 mm[Hg] Dr. Teresa Boggs DO Work Phone: [facility] 07-20-2024 09:21-0500 Heart rate 88 /min Dr. Teresa Boggs DO Work Phone: [facility] 07-20-2024 09:21-0500 Respiratory rate 16 /min Dr. Teresa Boggs DO Work Phone: [facility] 07-20-2024 09:21-0500 SaO2% (BldA) [Mass fraction] 98 % Dr. Teresa Boggs DO Work Phone: [facility] 07-20-2024 09:21-0500 Systolic blood pressure 142 mm[Hg] Dr. Teresa Boggs DO Work Phone: [facility] 06-19-2024 07:11-0500 Body weight 73.[address] Teresa Boggs DO Work Phone: [facility] 05-22-2024 15:09-0500 Body mass index (BMI) [Ratio] 31.9 kg/m2 Dr. Teresa Boggs DO Work Phone: [facility] 05-22-2024 15:00-0500 Body weight 76.[address] Teresa Boggs DO Work Phone: [facility] 05-22-2024 14:17-0500 Diastolic blood pressure 83 mm[Hg] Dr. Teresa Boggs DO Work Phone: [facility] 05-22-2024 14:17-0500 Heart rate 80 /min Dr. Teresa Boggs DO Work Phone: [facility] 05-22-2024 14:17-0500 SaO2% (BldA) [Mass fraction] 99 % Dr. Teresa Boggs DO Work Phone: [facility] 05-22-2024 14:17-0500 Systolic blood pressure 127 mm[Hg] Dr. Teresa Boggs DO Work Phone: [facility] 05-10-2024 15:40-0500 Body mass index (BMI) [Ratio] 31.9 kg/m2 Dr. Teresa Boggs DO Work Phone: [facility] 05-10-2024 15:40-0500 Body weight 76.[address] Teresa Boggs DO Work Phone: [facility] 05-10-2024 15:40-0500 Diastolic blood pressure 83 mm[Hg] Dr. Teresa Boggs DO Work Phone: [facility] 05-10-2024 15:40-0500 Heart rate 80 /min Dr. Teresa Boggs DO Work Phone: [facility] 05-10-2024 15:40-0500 Respiratory rate 18 /min Dr. Teresa Boggs DO Work Phone: [facility] 05-10-2024 15:40-0500 SaO2% (BldA) [Mass fraction] 99 % Dr. Teresa Boggs DO Work Phone: [facility] 05-10-2024 15:40-0500 Systolic blood pressure 127 mm[Hg] Dr. Teresa Boggs DO Work Phone: [facility] 05-04-2024 12:00-0500 Body temperature 97.9 [degF] Nataly Tovar MD Work Phone: [facility] 05-04-2024 12:00-0500 Diastolic blood pressure 67 mm[Hg] Nataly Tovar MD Work Phone: [facility] 05-04-2024 12:00-0500 Heart rate 76 /min Nataly Tovar MD Work Phone: [facility] 05-04-2024 12:00-0500 Respiratory rate 18 /min Nataly Tovar MD Work Phone: [facility] 05-04-2024 12:00-0500 SaO2% (BldA) [Mass fraction] 98 % Nataly Tovar MD Work Phone: [facility] 05-04-2024 12:00-0500 Systolic blood pressure 120 mm[Hg] Nataly Tovar MD Work Phone: [facility] 05-04-2024 05:00-0500 Body mass index (BMI) [Ratio] 32.62 kg/m2 Nataly Tovar MD Work Phone: [facility] 05-04-2024 05:00-0500 Body weight 78.3 kg Nataly Tovar MD Work Phone: [facility] 05-02-2024 12:18-0500 Body height 154.9 cm Nataly Tovar MD Work Phone: [facility] 07-01-2023 10:38-0500 Body height 154.[address] Teresa Boggs Work Phone: [facility] 07-01-2023 10:38-0500 Body mass index (BMI) [Ratio] 30.9 kg/m2 Dr. Teresa Boggs Work Phone: [facility] 07-01-2023 10:38-0500 Body weight 74.[address] Teresa Boggs Work Phone: [facility] 07-01-2023 10:38-0500 Heart rate 67 /min Dr. Teresa Boggs Work Phone: [facility] 07-01-2023 10:38-0500 Respiratory rate 18 /min Dr. Teresa Boggs Work Phone: [facility] 07-01-2023 10:38-0500 SaO2% (BldA) [Mass fraction] 99 % Dr. Teresa Boggs Work Phone: [facility] 01-07-2023 09:05-0400 Body height 154.[address] Teresa Boggs Work Phone: [facility] 01-07-2023 09:05-0400 Body mass index (BMI) [Ratio] 32.1 kg/m2 Dr. Teresa Boggs Work Phone: [facility] 01-07-2023 09:05-0400 Body weight 77.[address] Teresa Boggs Work Phone: [facility] 01-07-2023 09:05-0400 Diastolic blood pressure 78 mm[Hg] Dr. Teresa Boggs Work Phone: [facility] 01-07-2023 09:05-0400 Heart rate 63 /min Dr. Teresa Boggs Work Phone: [facility] 01-07-2023 09:05-0400 Respiratory rate 18 /min Dr. Teresa Boggs Work Phone: [facility] 01-07-2023 09:05-0400 SaO2% (BldA) [Mass fraction] 98 % Dr. Teresa Boggs Work Phone: [facility] 01-07-2023 09:05-0400 Systolic blood pressure 152 mm[Hg] Dr. Teresa Boggs Work Phone: [facility] 10-19-2022 08:35-0400 Body temperature 97 [degF] Dr. Teresa Boggs Work Phone: [facility] 10-19-2022 08:35-0400 Diastolic blood pressure 58 mm[Hg] Dr. Teresa Boggs Work Phone: [facility] 10-19-2022 08:35-0400 Heart rate 56 /min Dr. Teresa Boggs Work Phone: [facility] 10-19-2022 08:35-0400 Respiratory rate 16 /min Dr. Teresa Boggs Work Phone: [facility] 10-19-2022 08:35-0400 SaO2% (BldA) [Mass fraction] 98 % Dr. Teresa Boggs Work Phone: [facility] 10-19-2022 08:35-0400 Systolic blood pressure 114 mm[Hg] Dr. Teresa Boggs Work Phone: [facility] 10-19-2022 07:14-0400 Body height 154.[address] Teresa Boggs Work Phone: [facility] 10-19-2022 07:14-0400 Body mass index (BMI) [Ratio] 31.5 kg/m2 Dr. Teresa Boggs Work Phone: [facility] 10-19-2022 07:14-0400 Body weight 75.[address] Teresa Boggs Work Phone: [facility] 10-08-2022 16:32-0400 Body mass index (BMI) [Ratio] 31.1 kg/m2 Dr. Teresa Boggs Work Phone: [facility] 10-08-2022 16:32-0400 Body weight 74.[address] Teresa Boggs Work Phone: [facility] 08-21-2022 10:53-0500 Body height 157.[address] Teresa Boggs Work Phone: [facility] 08-21-2022 10:53-0500 Body temperature 96.9 [degF] Dr. Teresa Boggs Work Phone: [facility] 08-21-2022 10:53-0500 Heart rate 63 /min Dr. Teresa Boggs Work Phone: [facility] 08-21-2022 10:53-0500 Respiratory rate 16 /min Dr. Teresa Boggs Work Phone: [facility] 08-21-2022 10:53-0500 SaO2% (BldA) [Mass fraction] 93 % Dr. Teresa Boggs Work Phone: [facility] 08-06-2022 09:59-0500 Body height 157.[address] Teresa Boggs Work Phone: [facility] 08-06-2022 09:59-0500 Body temperature 96.9 [degF] Dr. Teresa Boggs Work Phone: [facility] 08-06-2022 09:59-0500 Heart rate 65 /min Dr. Teresa Boggs Work Phone: [facility] 08-06-2022 09:59-0500 Respiratory rate 16 /min Dr. Teresa Boggs Work Phone: [facility] 08-06-2022 09:59-0500 SaO2% (BldA) [Mass fraction] 96 % Dr. Teresa Boggs Work Phone: [facility] 07-30-2022 10:01-0500 Body temperature 96.9 [degF] Dr. Teresa Boggs Work Phone: [facility] 07-30-2022 10:01-0500 Heart rate 61 /min Dr. Teresa Boggs Work Phone: [facility] 07-30-2022 10:01-0500 Respiratory rate 16 /min Dr. Teresa Boggs Work Phone: [facility] 07-30-2022 10:01-0500 SaO2% (BldA) [Mass fraction] 98 % Dr. Teresa Boggs Work Phone: [facility] 07-21-2022 10:22-0500 Body height 157.[address] Teresa Boggs Work Phone: [facility] 07-21-2022 10:22-0500 Body temperature 96.9 [degF] Dr. Teresa Boggs Work Phone: [facility] 07-21-2022 10:22-0500 Heart rate 61 /min Dr. Teresa Boggs Work Phone: [facility] 07-21-2022 10:22-0500 Respiratory rate 16 /min Dr. Teresa Boggs Work Phone: [facility] 07-21-2022 10:22-0500 SaO2% (BldA) [Mass fraction] 94 % Dr. Teresa Boggs Work Phone: [facility] 07-15-2022 11:06-0500 Body temperature 97.8 [degF] Dr. Teresa Boggs Work Phone: [facility] 07-15-2022 11:06-0500 Diastolic blood pressure 52 mm[Hg] Dr. Teresa Boggs Work Phone: [facility] 07-15-2022 11:06-0500 Heart rate 73 /min Dr. Teresa Boggs Work Phone: [facility] 07-15-2022 11:06-0500 Respiratory rate 16 /min Dr. Teresa Boggs Work Phone: [facility] 07-15-2022 11:06-0500 SaO2% (BldA) [Mass fraction] 93 % Dr. Teresa Boggs Work Phone: [facility] 07-15-2022 11:06-0500 Systolic blood pressure 119 mm[Hg] Dr. Teresa Boggs Work Phone: [facility] 07-15-2022 06:32-0500 Body height 157.[address] Teresa Boggs Work Phone: [facility] 07-15-2022 06:32-0500 Body mass index (BMI) [Ratio] 29.8 kg/m2 Dr. Teresa Boggs Work Phone: [facility] 07-15-2022 06:32-0500 Body weight [address] Teresa Boggs Work Phone: [facility] 07-10-2022 09:21-0500 Body mass index (BMI) [Ratio] 30.2 kg/m2 Dr. Teresa Boggs Work Phone: [facility] 07-10-2022 09:21-0500 Body weight 74.[address] Teresa Boggs Work Phone: [facility] 07-10-2022 09:21-0500 Diastolic blood pressure 69 mm[Hg] Dr. Teresa Boggs Work Phone: [facility] 07-10-2022 09:21-0500 Heart rate 64 /min Dr. Teresa Boggs Work Phone: [facility] 07-10-2022 09:21-0500 Respiratory rate 18 /min Dr. Teresa Boggs Work Phone: [facility] 07-10-2022 09:21-0500 Systolic blood pressure 107 mm[Hg] Dr. Teresa Boggs Work Phone: [facility] 06-08-2022 10:07-0500 Body mass index (BMI) [Ratio] 29.9 kg/m2 Dr. Teresa Boggs Work Phone: [facility] 06-08-2022 10:07-0500 Body temperature 96.6 [degF] Dr. Teresa Boggs Work Phone: [facility] 06-08-2022 10:07-0500 Body weight 74.[address] Teresa Boggs Work Phone: [facility] 06-08-2022 10:07-0500 Diastolic blood pressure 65 mm[Hg] Dr. Teresa Boggs Work Phone: [facility] 06-08-2022 10:07-0500 Heart rate 54 /min Dr. Teresa Boggs Work Phone: [facility] 06-08-2022 10:07-0500 Respiratory rate 17 /min Dr. Teresa Boggs Work Phone: [facility] 06-08-2022 10:07-0500 SaO2% (BldA) [Mass fraction] 96 % Dr. Teresa Boggs Work Phone: [facility] 06-08-2022 10:07-0500 Systolic blood pressure 142 mm[Hg] Dr. Teresa Boggs Work Phone: [facility] 05-06-2022 10:50-0500 Body height 157.[address] Teresa Boggs Work Phone: [facility] Work Phone: 05-06-2022 10:50-0500 Body mass index (BMI) [Ratio] 29.9 kg/m2 Dr. Teresa Boggs Work Phone: [facility] 05-06-2022 10:50-0500 Body weight 74.[address] Teresa Boggs Work Phone: [facility] 02-24-2022 12:48-0400 Diastolic blood pressure 63 mm[Hg] Dr. Teresa Boggs Work Phone: [facility] Work Phone: 02-24-2022 12:48-0400 Heart rate 63 /min Dr. Teresa Boggs Work Phone: [facility] Work Phone: 02-24-2022 12:48-0400 Respiratory rate 18 /min Dr. Teresa Boggs Work Phone: [facility] Work Phone: 02-24-2022 12:48-0400 SaO2% (BldA) [Mass fraction] 95 % Dr. Teresa Boggs Work Phone: [facility] Work Phone: 02-24-2022 12:48-0400 Systolic blood pressure 108 mm[Hg] Dr. Teresa Boggs Work Phone: [facility] Work Phone: 02-24-2022 07:43-0400 Body height 157.[address] Teresa Boggs Work Phone: [facility] Work Phone: 02-24-2022 07:43-0400 Body mass index (BMI) [Ratio] 31.1 kg/m2 Dr. Teresa Boggs Work Phone: [facility] Work Phone: 02-24-2022 07:43-0400 Body temperature 96.8 [degF] Dr. Teresa Boggs Work Phone: [facility] Work Phone: 02-24-2022 07:43-0400 Body weight 77.[address] Teresa Boggs Work Phone: [facility] Work Phone: 01-12-2022 09:15-0400 Body height 157.[address] Teresa Boggs Work Phone: [facility] Work Phone: 01-12-2022 09:15-0400 Body mass index (BMI) [Ratio] 31.4 kg/m2 Dr. Teresa Boggs Work Phone: [facility] Work Phone: 01-12-2022 09:15-0400 Body weight 78.[address] Teresa Boggs Work Phone: [facility] Work Phone: 01-12-2022 09:15-0400 Diastolic blood pressure 69 mm[Hg] Dr. Teresa Boggs Work Phone: [facility] Work Phone: 01-12-2022 09:15-0400 Heart rate 66 /min Dr. Teresa Boggs Work Phone: [facility] Work Phone: 01-12-2022 09:15-0400 Respiratory rate 18 /min Dr. Teresa Boggs Work Phone: [facility] Work Phone: 01-12-2022 09:15-0400 SaO2% (BldA) [Mass fraction] 98 % Dr. Teresa Boggs Work Phone: [facility] Work Phone: 01-12-2022 09:15-0400 Systolic blood pressure 114 mm[Hg] Dr. Teresa Boggs Work Phone: [facility] Work Phone: 02-02-2017 12:59-0400 BMI (Body Mass Index) 31.68 kg/m2 [facility] Work Phone: 02-02-2017 12:59-0400 BP Diastolic 72 mm[Hg] [facility] Work Phone: 02-02-2017 12:59-0400 BP Systolic 142 mm[Hg] [facility] Work Phone: 02-02-2017 12:59-0400 Height 154.94 cm [facility] Work Phone: 02-02-2017 12:59-0400 Pulse (Heart Rate) 60 /min [facility] Work Phone: 02-02-2017 12:59-0400 Respiratory Rate 20 /min [facility] Work Phone: 02-02-2017 12:59-0400 Weight 76.07 kg Sejallisbeth [facility]ons [facility] Work Phone: 08-06-2016 09:42-0500 BMI (Body Mass Index) 33.44 kg/m2 Carrington Wakefield NP [facility] Work Phone: 08-06-2016 09:42-0500 BP Diastolic 60 mm[Hg] Carrington Wakefield [employer] [facility] Work Phone: 08-06-2016 09:42-0500 BP Systolic 110 mm[Hg] Carrington Wakefield [employer] [facility] Work Phone: 08-06-2016 09:42-0500 BSA (Body Surface Area) 1.8 m2 Carrington Wakefield [employer] [facility] Work Phone: 08-06-2016 09:42-0500 Pulse (Heart Rate) 52 /min Carrington Wakefield [employer] [facility] Work Phone: 08-06-2016 09:42-0500 Respiratory Rate 20 /min Carrington Wakefield [employer] [facility] Work Phone: 08-06-2016 09:42-0500 Weight 80.29 kg Carrington Wakefield [employer] [facility] Work Phone: 06-24-2016 13:47-0500 Body Temperature 97.9 [degF] Carrington Wakefield [employer] [facility] Work Phone: 06-24-2016 13:47-0500 Height 154.94 cm Carrington Wakefield [employer] [facility] Work Phone: 06-24-2016 13:47-0500 Weight 81.36 kg Carrington Wakefield [employer] [facility] Work Phone: 11-15-2015 11:19-0400 Heart rate 52 /min Carrington Wakefield [employer] [facility] Work Phone: 04-27-2013 10:39-0400 Heart rate 429 ms Carrington Wakefield [employer] [facility] Work Phone: 08-29-2007 16:00-0500 Body weight 68.04 kg [facility] [place] 08-29-2007 16:00-0500 Diastolic blood pressure 70 mm[Hg] [facility] [place] 08-29-2007 16:00-0500 Heart rate 60 /min [facility] [place] 08-29-2007 16:00-0500 Systolic blood pressure 144 mm[Hg] [facility] [place] Encounters Encounter Date Encounter Type Care Provider Facility [facility]: [facility] Start: 05-08-2025 ambulatory [facility] Facility:[facility] Start: 04-04-2025 End: 04-04-2025 ambulatory [facility] Facility:[facility] Start: 03-02-2025 End: 03-02-2025 Patient encounter procedure SHYAM Colin -[facility] Work Phone: Start: 03-02-2025 End: 03-02-[address] Teresa Boggs DO Work Phone: -[facility] Start: 02-15-2025 End: 02-25-[address] Teresa Boggs DO Work Phone: -Cardiac Rehab Start: 02-15-2025 End: 02-25-[address] Dustin Lemus MD -Cardiac Rehab Work Phone: Start: 02-15-[address] Dustin Lemus MD -Cardiac Rehab Work Phone: Start: 02-12-[facility] Start: 02-12-2025 Non-patient / Non-visit Dr. Jaswant [facility] -[facility] Start: 02-12-2025 End: 02-12-[address] Teresa Boggs DO Work Phone: -Cardiovascular Services Start: 02-12-2025 End: 02-12-2025 Patient encounter procedure Mundo ALVARADO -Cardiovascular Services Work Phone: Start: 02-12-2025 End: 02-12-2025 [facility] Start: 02-08-[address] Dustin Lemus MD -Cardiac Rehab Work Phone: Start: 02-06-2025 End: 02-06-[address] Teresa Boggs DO Work Phone: -Outpatient Breast [facility] Start: 02-06-2025 End: 02-06-[address] Teresa Boggs DO -Outpatient [facility] Work Phone: Start: 02-06-2025 End: 02-06-2025 ambulatory Teresa Boggs Facility:[facility] Start: 01-25-2025 End: 01-25-[address] Teresa Boggs DO Work Phone: -Cardiac Rehab Start: 01-25-2025 End: 01-25-[address] Dustin Lemus MD -Cardiac Rehab Work Phone: Start: 01-23-[address] Dustin Lemus MD -Cardiac Rehab Work Phone: Start: 01-18-2025 Non-patient / Non-visit Dr. Jaswant [facility]CALF -[facility] Start: 01-18-2025 End: 01-18-[address] Teresa Boggs DO Work Phone: -Cardiovascular Services Start: 01-18-2025 End: 01-18-2025 Patient encounter procedure SHYAM Colin -Cardiovascular Services Work Phone: Start: 01-18-2025 End: 01-18-2025 ambulatory Carly Colin Facility:[facility] Start: 12-21-2024 End: 12-25-[address] Teresa Boggs DO Work Phone: -Cardiac Rehab Start: 12-21-2024 End: 12-25-[address] Dustin Lemus MD -Cardiac Rehab Work Phone: Start: 12-19-[address] Dustin Lemus MD -Cardiac Rehab Work Phone: Start: 12-15-2024 End: 12-15-[address] Teresa Boggs DO Work Phone: [facility] Work Phone: Start: 12-15-2024 End: 12-15-2024 Patient encounter procedure [employer] Carly Colin -Laboratory Work Phone: Start: 12-15-2024 End: 12-15-2024 Patient encounter procedure [employer] Carly Colin -[facility] Work Phone: Start: 12-15-2024 End: 12-15-[address] Teresa Boggs DO Work Phone: [facility] Work Phone: Start: 12-15-2024 End: 12-15-2024 ambulatory Carly Colin Facility:[facility] Start: 12-12-[address] Dustin Lemus MD -Cardiac Rehab Work Phone: Start: 12-06-2024 ambulatory Teresa Boggs Facility:[facility] Start: 11-23-2024 End: 11-25-[address] Teresa Boggs DO Work Phone: [facility] Work Phone: Start: 11-23-2024 End: 11-25-[address] Dustin Lemus MD -Cardiac Rehab Work Phone: Start: 11-21-2024 Non-patient / Non-visit Dr. Jose Farley own DO -[facility] Start: 11-21-2024 End: 11-21-[address] Teresa Boggs DO Work Phone: [facility] Work Phone: Start: 11-21-2024 End: 11-21-2024 Patient encounter procedure SQL ARCHITECT Carly Colin -Pulmonary Services/Neurology Work Phone: Start: 11-21-2024 End: 11-21-2024 ambulatory Carly Colin Facility:[facility] Start: 11-03-2024 ambulatory Carly Colin Facili ty:[facility] Start: 11-03-2024 Non-patient / Non-visit Dr. Jose Farley own DO -[facility] Start: 11-02-[address] Dustin Lemus MD -Cardiac Rehab Work Phone: Start: 10-31-[address] Dustin Lemus MD -Cardiac Rehab Work Phone: Start: 10-31-2024 End: 10-31-[address] Teresa Boggs DO Work Phone: [facility] Work Phone: Start: 10-31-2024 End: 10-31-2024 Patient encounter procedure SQL ARCHITECT Carly Colin -Pulmonary Services/Neurology Work Phone: Start: 10-31-2024 End: 10-31-2024 ambulatory Carly Colin Facility:[facility] Start: 10-27-2024 End: 10-27-[address] Teresa Boggs DO Work Phone: [facility] Work Phone: Start: 10-27-2024 End: 10-27-[address] Teresa Boggs DO -Laboratory Work Phone: Start: 10-26-2024 End: 11-25-[address] Dustin Lemus MD -Cardiac Rehab Work Phone: Start: 10-26-[address] Dustin Lemus MD -Cardiac Rehab Work Phone: Start: 10-26-2024 End: 11-25-[address] Teresa Boggs DO Work Phone: [facility] Work Phone: Start: 10-18-2024 End: 10-18-2024 Patient encounter procedure SQL ARCHITECT Carly Colin -[facility] Work Phone: Start: 10-18-2024 End: 10-18-2024 ambulatory Carly Colin Facility:[facility] Start: 10-17-2024 End: 10-25-2024 ambulatory Teresa Boggs Facility:[facility] Start: 10-17-2024 End: 10-25-[address] Dustin Lemus MD -Cardiac Rehab Work Phone: Start: 10-06-2024 [facility]ulatory [facility] Start: 10-05-[address] Dustin Lemus MD -Cardiac Rehab Work Phone: Start: 10-03-2024 End: 10-03-[address] Teresa Boggs DO Work Phone: [facility] Work Phone: Start: 10-03-2024 End: 10-03-2024 Patient encounter procedure Ana ALVARADO -Laboratory Work Phone: Start: 10-03-2024 End: 10-03-2024 ambulatory Ana ALVARADO Facility:[facility] Start: 09-25-2024 End: 09-25-[address] Teresa Boggs DO Work Phone: [facility] Work Phone: Start: 09-25-2024 End: 09-25-[address] Dustin Lemus MD -Cardiac Rehab Work Phone: Start: 09-17-2024 Encounter for genera l adult medical examination without abnormal findings [facility] Start: 09-15-[address] Dustin Lemus MD -Cardiac Rehab Work Phone: Start: 09-08-2024 End: 09-08-[address] Teresa Boggs DO Work Phone: [facility] Work Phone: Start: 09-08-2024 End: 09-08-[address] Teresa Boggs DO -Sleep Lab Work Phone: Start: 09-07-2024 End: 09-07-2024 Patient encounter procedure Ana ALVARADO -[facility] Work Phone: Start: 09-07-2024 End: 09-08-2024 ambulatory [facility] Start: 09-05-2024 ambulatory [facility] Start: 09-01-[address] Dustin Lemus MD -Cardiac Rehab Work Phone: Start: 08-25-2024 End: 08-25-2024 ambulatory [facility] Facility:[facility] Start: 08-25-2024 End: 08-25-[address] Dustin Lemus MD -Cardiac Rehab Work Phone: Start: 08-23-2024 End: 08-23-[address] Teresa Boggs DO Work Phone: [facility] Work Phone: Start: 08-23-2024 End: 08-23-[address] Teresa Boggs DO -Sleep Lab Work Phone: Start: 08-23-2024 End: 08-23-2024 ambulatory [facility] Facility:[facility] Start: 08-04-2024 End: 08-04-[address] Teresa Boggs DO -Laboratory Work Phone: Start: 08-04-2024 End: 08-04-2024 ambulatory [facility] Facility:[facility] Start: 07-26-2024 End: 07-28-2024 ambulatory [facility] Facility:[facility] Start: 07-26-2024 End: 07-28-[address] Dustin Lemus MD -Cardiac Rehab Work Phone: Start: 07-20-2024 End: 07-20-2024 Patient encounter procedure Quinton ALVARADO -[facility] Work Phone: Start: 07-20-2024 End: 07-20-2024 ambulatory Teresa [facility] Facility:[facility] Start: 06-26-2024 End: 06-27-2024 ambulatory Teresa [facility] Facility:[facility] Start: 06-26-2024 End: 06-27-[address] Dustin Lemus MD -Cardiac Rehab Work Phone: Start: 05-22-2024 End: 05-22-[address] Dustin Lemus MD -Cardiac Rehab Work Phone: Start: 05-22-2024 End: 05-22-2024 ambulatory Teresa Boggs Facility:[facility] Start: 05-10-2024 End: 05-10-2024 Patient encounter procedure Carrington BOYCE -[facility] Work Phone: Start: 05-10-2024 End: 05-10-2024 ambulatory Teresaben Perezrenée Facility:[facility] Start: 05-02-2024 End: 05-04-2024 Evaluation and management of inpatient Nataly Tovar MD Work Phone: [facility] Intensive Care Unit CTV ICU T1 Comment on above: Accelerating angina (HCC) (Primary Dx) Start: 10-07-2023 End: 10-07-[address] Teresa Boggs Work Phone: [facility] Work Phone: Start: 10-07-2023 End: 10-07-[address] Teresa Boggs Work Phone: [facility]-Radiology, [facility] Work Phone: Start: 10-05-2023 End: 10-05-[address] Teresa Boggs Work Phone: [facility] Work Phone: Start: 10-05-2023 End: 10-05-[address] Teresa Boggs Work Phone: [facility]-Laboratory Work Phone: Start: 08-14-2023 End: 08-14-[address] Teresa Boggs Work Phone: [facility] Work Phone: Start: 08-14-2023 End: 08-14-[address] Teresa Boggs Work Phone: [facility]-Cat Scan, [facility] Work Phone: Start: 2023 End: [address] Teresa Boggs Work Phone: [facility] Work Phone: Start: 2023 End: [address] [facility] Start: 07-27-2023 End: 07-27-[address] Teresa Boggs Work Phone: [facility] Work Phone: Start: 07-27-2023 End: 07-27-[address] [facility] Start: 07-01-2023 End: 07-01-[address] Teresa Boggs Work Phone: [facility] Work Phone: Start: 07-01-2023 End: 07-01-[address] Teresa Boggs Work Phone: [facility] Work Phone: Start: 07-01-2023 End: 07-01-[address] [facility] Start: 01-07-2023 End: 01-07-[address] Teresa Boggs Work Phone: [facility] Work Phone: Start: 01-07-2023 End: 01-07-[address] Teresa Boggs Work Phone: [facility] Work Phone: Start: 12-31-2022 End: 12-31-[address] Teresa Boggs Work Phone: [facility] Work Phone: Start: 12-31-2022 End: 12-31-[address] Teresa Boggs Work Phone: [facility]-Outpatient Breast Imaging Work Phone: Start: 10-19-2022 Non-patient / Non-visit Dr. Marge Boggs Work Phone: [facility] Start: 10-19-2022 End: 10-19-2022 Admission to same day surgery center Dr. Teresa Boggs Work Phone: [facility]-Endoscopy Start: 10-19-2022 End: 10-19-[address] Teresa Boggs Work Phone: [facility] Work Phone: Start: 10-08-2022 Non-patient / Non-visit Dr. Marge Boggs Work Phone: [facility] Start: 09-22-2022 End: 09-22-[address] Teresa Boggs Work Phone: [facility] Work Phone: Start: 09-22-2022 End: 09-22-[address] Teresa Boggs Work Phone: [facility]-Laboratory Start: 08-21-2022 End: 08-21-[address] Teresa Boggs Work Phone: [facility] Start: 08-06-2022 End: 08-06-[address] Teresa Boggs Work Phone: [facility] Start: 07-30-2022 End: 07-30-[address] Teresa Boggs Work Phone: [facility] Work Phone: Start: 07-30-2022 End: 07-30-[address] Teresa Boggs Work Phone: [facility] Start: 07-30-[address] Teresa solares Work Phone: [facility]-Cardiovascula r Services Start: 07-21-2022 End: 07-21-[address] Teresa Boggs Work Phone: [facility] Start: 07-15-2022 Non-patient / Non-visit Dr. Marge Boggs Work Phone: [facility] Start: 07-15-2022 End: 07-15-2022 Admission to same day surgery center Dr. Teresa Boggs Work Phone: [facility]-Surgical Day Care Start: 07-15-2022 End: 07-15-[address] Teresa Boggs Work Phone: [facility] Work Phone: Start: 07-14-2022 Non-patient / Non-visit Dr. Marge Boggs Work Phone: [facility] Start: 07-10-2022 End: 07-10-[address] Teresa Boggs Work Phone: [facility] Work Phone: Start: 07-10-2022 End: 07-10-[address] Teresa Boggs Work Phone: [facility]-Laboratory Start: 06-08-2022 End: 06-08-[address] Teresa Boggs Work Phone: [facility] Start: 05-28-2022 End: 05-28-[address] Teresa Boggs Work Phone: [facility] Work Phone: Start: 05-28-2022 End: 05-28-[address] Teresa Boggs Work Phone: [facility]-Laboratory Start: 05-06-2022 End: 05-06-[address] Teresa Boggs Work Phone: [facility] Start: 03-31-2022 End: 03-31-[address] Teresa Boggs Work Phone: [facility] Work Phone: Start: 03-31-2022 End: 03-31-[address] Teresa Boggs Work Phone: [facility]-Laboratory Start: 02-24-2022 End: 02-24-2022 Emergency department patient visit Dr. Teresa Boggs Work Phone: [facility]-Emergency Department Start: 01-24-2022 End: 01-24-[address] Teresa Boggs Work Phone: [facility]-Laboratory Start: 01-13-2022 End: 01-13-[address] [facility] Start: 01-12-2022 End: 01-12-[address] Teresa Boggs Work Phone: [facility] Start: 12-26-2021 End: 12-26-2021 Patient encounter procedure [facility]-Outpatient Breast Imaging Start: 08-29-2007 End: 08-29-2007 Patient encounter procedure Moises (ResGreg Muniz [facility] Comment on above: MYALGIA AND MYOSITIS NOS; HYPOTHYROIDISM NOS; BENIGN HYPERTENSION; DEPRESSIVE DISORDER NEC; ANXIETY STATE NOS Procedures Date Procedure Procedure Detail Performing Clinician Start: 02-12-2025 Radionuclide imaging of perfusion of myocardium under exercise stress Dr. Teresa Boggs DO Work Phone: Start: 02-06-2025 Screening mammography D r. Teresa Boggs DO Work Phone: Start: 05-04-2024 Comprehensive metabo lic panel Denilson [...] 12 lds trcg only w/o i&r Ana Ghimirey DO Work Phone: Start: 05-02-2024 End: 05-02-2024 Basic metabolic panel calcium total Denilson Wagle DO Work Phone: Start: 05-02-2024 Ecg routine ecg w/le ast 12 lds trcg only w/o i&r Ana Ghimirey DO Work Phone: Start: 05-02-2024 End: 05-02-2024 Ecg routine ecg w/least 12 lds trcg only w/o i&r Jeison Sheriff MD Work Phone: Start: 05-02-2024 Blood count complete auto&auto difrntl wbc Jeison Sheriff MD Work Phone: Start: 05-02-2024 Ecg routine ecg w/le ast 12 lds trcg only w/o i&r Madeleine Mcnair MD Work Phone: Start: 05-02-2024 Cardiac catheterizat ion study Marce Last GROUND INSTRUCTOR ADVANCED - CHECK WRITER SALESPERSON Work Phone: Start: 05-02-2024 Percutaneous coronar y intervention Marce Kennedy Shala GROUND INSTRUCTOR ADVANCED - CHECK WRITER SALESPERSON Work Phone: Start: 05-02-2024 End: 05-02-2024 POCT ACT Nataly Tovar MD Work Phone: Start: 05-02-2024 End: 05-02-2024 POCT ACT Ntaaly Tovar MD Work Phone: Start: 05-02-2024 History [...] 05-02-2024 Basic metabolic panel calcium total Marce Kennedy Shala GROUND INSTRUCTOR ADVANCED - CHECK WRITER SALESPERSON Work Phone: Start: 05-02-2024 Lipid panel Denilson Wag le DO Work Phone: Start: 05-02-2024 Ecg routine ecg w/le ast 12 lds trcg only w/o i&r Denilson Jimeneze DO Work Phone: Start: 05-02-2024 Lipid 1996 [...] Phone: Start: 02-24-2022 Plain chest X-ray Dr. Logan Boggs Work Phone: Start: 12-26-2021 Screening mammography Start: 03-25-2020 History of placement of stent for coronary artery disease H/O right coronary artery stent placement Start: 02-02-2017 End: 02-02-2017 HAND TAPPER Ana Bailey PA-C Work Phone: Start: 02-02-2017 [...] Carlos Peoples MD Start: 04-03-2016 End: 04-03-2016 HAND TAPPER Braeden Jones CNC MILL PROGRAMMER-C Start: 04-03-2016 End: 04-03-2016 Follow Up Appt 4 months Braeden Jones CNC MILL PROGRAMMER -C Start: 03-06-2016 End: 04-08-2016 *Hepatic Function Panel Ana Bailey PA-C Work Phone: Start: 03-06-2016 End: 04-08-2016 Lipid panel [AGGREGATE] Ana Bailey PA-C Work Phone: Start: 11-15-2015 End: 11-15-2015 TARIQ Lemus MD Start: 11-15-2015 End: 12-09-2015 Monet Lemus MD Start: 11-15-2015 End: 11-15-2015 Electrocardiogram, complete Dustin Lemus MD Start: 11-15-2015 End: 11-15-2015 Follow Up Appt 3 months Merrill Joyner Start: 11-15-2015 End: 11-16-2015 Referral to transitional care nurse Dustin Lemus MD Start: 11-06-2015 Placement of stent i n coronary artery Mutilple coronary stents Carrington Wakefield SQL ARCHITECT Start: 10-31-2015 End: 12-09-2015 Arterial exam Carlos [...] End: 01-25-2017 Hemoglobin glycosylated a1c Teresa Boggs DO Work Phone: Start: 04-04-2015 End: 01-25-2017 Mammogram, screening Teresa Boggs DO Work Phone: Start: 03-14-2015 End: 03-14-2015 Colonoscopy Ana Bailey PA-C Work Phone: Start: 03-14-2015 End: 03-14-2015 HAND TAPPER ZULEIMA BeasleyC Work Phone: Start: 03-14-2015 End: 03-14-2015 Documentation [...] PA-C Work Phone: Start: 02-06-2015 End: 02-06-2015 HAND TAPPER Ana Bailey PA-C Work Phone: Start: 02-06-2015 [...] of patient Health maintenance exam Carrington Wakefield SQL ARCHITECT Start: 02-28-2014 End: 03-21-2014 Mammogram, Screening, both breasts Sun Ritchie MD Start: 02-28-2014 Screening mammography Screenin g mammogram NEC Carrington Wakefield SQL ARCHITECT Start: 02-28-2014 End: 03-09-2014 Thyroid stimulating hormone (TSH) Sun Ritchie MD Start: 01-25-2014 End: 01-25-2014 HAND TAPPER Ana Bailey PA-C Work Phone: Start: 01-25-2014 [...] PA-C Work Phone: Start: 04-27-2013 End: 04-27-2013 HAND TAPPER Ana Bailey PA-C Work Phone: Start: 04-27-2013 [...] MD Work Phone: Start: 03-06-2013 Colonoscopy Moises Melida b Start: 10-26-2012 End: 10-31-2012 *Hepatic Function Panel Merrill Joyner Start: 10-26-2012 End: 11-01-2012 Echocardiography Dustin Lemus MD Start: 10-26-2012 End: 10-26-2012 Follow Up Appt 6 months Merrill Joyner Start: 10-26-2012 End: 10-31-2012 Lipid panel [AGGREGATE] Merrill Joyner Start: 10-26-2012 End: 10-26-2012 MMM Dustin Lemus MD Start: 10-21-2007 History of coronary artery bypass grafting H/O coronary artery bypass surgery Carrington Wakefield SQL ARCHITECT-C Comment on above: CABG x 2 VARGAS-LAD, S VG-OM2 10/21/2007 Start: 06-09-2005 Mammography Moises Montez b H/O: surgery History of basal cell [...] Teresa Boggs Work Phone: Comment on above: WLV-VZL-Cvqh RCA w/ 3.0 x 12 mm Promus Element 03/30/2013; XPC-ZSN-Clynen RCA w/ 2.25 x 24 mm Synergy JATIN-Distal RCA-Prox/Ostium PDA w/ 2.25 x 16 mm Synergy 10/22/2015; [id number] w/ 3.5 x 38 mm Synergy MR Stent 03/25/2020 History of placement of stent for coronary artery disease History of coronary artery stent placement Carrington ROMOC History of placement of stent for coronary artery disease History of coronary artery stent placement Ana ALVARADO Plan of Treatment Date Care Activity Detail Author Start: 04-16-2033 DTaP/Tdap/Td Vaccine s (4 - Td or Tdap) DTaP/Tdap/Td Vaccines (4 - Td or Tdap) [facility] Start: 05-02-2029 Lipid panel Lipid Panel [facility] Start: 05-02-2025 Diabetes mellitus screening Diabetes Screening [facility] Start: 05-02-2025 Thyroid stimulating hormone measurement TSH Level [facility] Start: 11-21-2024 Measurement of respi ratory function [facility] Start: 05-10-2024 Patient referral [facility] Work Phone: Start: 01-01-2024 Screening for malign ant neoplasm of breast Mammogram [facility] Start: 06-28-2023 Medicare Advantage A nnual Wellness Visit Medicare Advantage Annual Wellness Visit [facility] Start: 10-19-2022 Patient discharge [facility] Start: 07-15-2022 Adjt tis reargmt eye/nose/ear/lip 10.1-30.0 sqcm TIS TRNFR E/N/E/[id number] [facility] Start: 07-15-2022 Anes integ musc & nr v head neck&posterior trunk ANESTH HEAD/NECK/PTRUNK [facility] Start: 07-15-2022 Patient discharge [facility] Start: 02-24-2022 [facility] Work Phone: Start: 02-26-2021 Influenza vaccination INFLUENZA (Sea son Ended) [facility] Start: 01-11-2021 Pneumococcal Vaccine : 65+ Years (2 of 2 - PPSV23 or PCV20) Pneumococcal Vaccine: 65+ Years (2 of 2 - PPSV23 or PCV20) [facility] Start: 10-22-2020 LIPID SCREEN LIPID SCREEN [facility] Start: 2019 ADVANCE DIRECTIVE DISCUSSION ADVANCE DIRECTIVE DISCUSSION [facility] Start: 2019 BONE DENSITY BONE DENSITY [facility] Start: 2019 PNEUMOVAX AGE 65 AND OVER WITH 5YR LOOKBACK (#1) PNEUMOVAX AGE 65 AND OVER WITH 5YR LOOKBACK (#1) [facility] Start: 10-23-2018 DIABETES SCREEN DIABETES SCREEN [facility] Start: 03-06-2018 Screening for malign ant neoplasm of colon [facility] Start: 08-12-2017 End: 08-12-2017 Appointment Appointment [facility] Work Phone: Start: 02-03-2017 End: 01-29-2017 *Hepatic Function Panel *Hepatic Function Panel [facility] Work Phone: Start: 02-03-2017 End: 01-29-2017 Lipid panel [AGGREGATE] *Lipid Profile CC PCP [facility] Work Phone: Start: 02-02-2017 End: 02-02-2017 Appointment Appointment [facility] Work Phone: Start: 02-02-2017 End: 02-02-2017 HAND TAPPER HAND TAPPER [facility] Work Phone: Start: 02-02-2017 End: 02-02-2017 Follow Up Appt 6 months Follow Up Appt 6 months [facility] Work Phone: Start: 10-07-2016 End: 08-05-2016 *Hepatic Function Panel *Hepatic Function Panel [facility] Work Phone: Start: 10-07-2016 End: 08-05-2016 Lipid panel [AGGREGATE] *Lipid Profile CC PCP [facility] Work Phone: Start: 08-06-2016 End: 08-06-2016 Follow Up Appt 6 months Follow Up Appt 6 months [facility] Work Phone: Start: 08-06-2016 End: 08-06-2016 MMM MMM [facility] Work Phone: Start: 06-24-2016 End: 06-29-2016 Follow Up Appt 6 months Follow Up Appt 6 months [facility] Work Phone: Start: 06-24-2016 End: 06-30-2016 Primary Care Physician Primary Care Physician Teresa Boggs DO, [facility], [address], [place], [address] [facility] Work Phone: Start: 04-15-2016 End: 05-11-2016 Follow Up Appt Other Follow Up Appt Other [facility] Work Phone: Start: 04-03-2016 End: 04-03-2016 HAND TAPPER HAND TAPPER [facility] Work Phone: Start: 04-03-2016 End: 04-03-2016 Follow Up Appt 4 months Follow Up Appt 4 months [facility] Work Phone: Start: 03-06-2016 End: 04-08-2016 *Hepatic Function Panel *Hepatic Function Panel [facility] Work Phone: Start: 03-06-2016 End: 04-08-2016 Lipid panel [AGGREGATE] *Lipid Profile CC PCP [facility] Work Phone: Start: 11-15-2015 End: 01-02-2016 Cardiac Rehab Cardiac Rehab [address] [place], [address] [facility] Work Phone: Start: 11-15-2015 End: 11-15-2015 HAND TAPPER HAND TAPPER [facility] Work Phone: Start: 11-15-2015 End: 11-15-2015 Echocardiography Echocardiogram (complete) [facility] Work Phone: Start: 11-15-2015 End: 11-15-2015 Electrocardiogram, complete EKG (In office) [facility] Work Phone: Start: 11-15-2015 End: 11-15-2015 Follow Up Appt 3 months Follow Up Appt 3 months [facility] Work Phone: Start: 10-31-2015 End: 12-09-2015 Arterial exam Arterial exam [facility] Work Phone: Start: 08-15-2015 End: 08-15-2015 Follow Up Appt 6 months Follow Up Appt 6 months [email or web address] Work Phone: Start: 08-15-2015 End: 08-15-2015 MMM MMM [facility] Work Phone: Start: 08-09-2015 End: 09-04-2015 *Hepatic Function Panel *Hepatic Function Panel [email or web address] Work Phone: Start: 08-09-2015 End: 09-04-2015 Lipid panel [AGGREGATE] *Lipid Profile CC PCP [facility] Work Phone: Start: 06-11-2015 End: 01-25-2017 HbA1c HGB A1C (Office) [facility] Work Phone: Start: 05-19-2015 Urine microalbumin profile DTAP,TDAP ,TD (2 - Tdap) [facility] Start: 04-04-2015 End: 01-25-2017 Mammogram, screening Mammogram, Screening, both breasts [facility] Work Phone: Start: 03-14-2015 End: 03-14-2015 HAND TAPPER HAND TAPPER [facility] Work Phone: Start: 03-14-2015 End: 03-14-2015 Follow Up Appt 6 months Follow Up Appt 6 months [facility] Work Phone: Start: 02-06-2015 End: 02-06-2015 *BMP *BMP [facility] Work Phone: Start: 02-06-2015 End: 02-06-2015 *CBC with Differential *CBC with Differential [facility] Work Phone: Start: 02-06-2015 End: 02-06-2015 HAND TAPPER HAND TAPPER [facility] Work Phone: Start: 02-06-2015 End: 02-06-2015 Electrocardiogram, complete EKG (In office) [facility] Work Phone: Start: 02-06-2015 End: 02-06-2015 Follow Up Appt 1 month Follow Up Appt 1 month [facility] Phone: Start: 02-06-2015 End: 02-06-2015 Follow Up Appt 6 months Follow Up Appt 6 months [facility] Work Phone: Start: 02-06-2015 End: 02-06-2015 MMM MMM [facility] Work Phone: Start: 02-06-2015 End: 02-06-2015 Nuclear stress test -Lexiscan Nuclear stress test -Lexiscan [facility] Work Phone: Start: 02-06-2015 End: 02-06-2015 Thyroid stimulating hormone (TSH) *TSH [facility] Work Phone: Start: 02-06-2015 End: 02-06-2015 Thyroxine (T4) *T4 (Total) [employer] Work Phone: Start: 01-31-2015 End: 02-06-2015 *Hepatic Function Panel *Hepatic Function Panel [employer] Work Phone: Start: 01-31-2015 End: 02-06-2015 Lipid panel [AGGREGATE] *Lipid Profile CC PCP [employer] Work Phone: Start: 08-07-2014 End: 08-07-2014 Follow Up Appt 6 months Follow Up Appt 6 months [employer] Work Phone: Start: 08-07-2014 End: 08-07-2014 MMM MMM [employer] Work Phone: Start: 07-29-2014 End: 08-03-2014 *Hepatic Function Panel *Hepatic Function Panel [employer] Work Phone: Start: 07-29-2014 End: 08-03-2014 Lipid panel [AGGREGATE] *Lipid Profile CC PCP [facility] Work Phone: Start: 07-24-2014 End: 07-27-2014 *BMP *BMP [employer] Work Phone: Start: 07-24-2014 End: 07-26-2014 Urine culture, bacteria *CUUR - Culture, Urine ([place] Count) [employer] Work Phone: Start: 02-28-2014 End: 03-09-2014 *BMP *BMP [employer] Work Phone: Start: 02-28-2014 End: 03-09-2014 *UA - Urinalysis w/o Micro *UA - Urinalysis w/o Micro [employer] Work Phone: Start: 02-28-2014 End: 03-09-2014 CBC W Auto Differential panel - Blood *CBC without Diff [employer] Work Phone: Start: 02-28-2014 End: 03-21-2014 Mammogram, Screening, both breasts Mammogram, Screening, both breasts [employer] Work Phone: Start: 02-28-2014 End: 03-09-2014 Thyroid stimulating hormone (TSH) *TSH [employer] Work Phone: Start: 01-25-2014 End: 01-25-2014 HAND TAPPER HAND TAPPER [employer] Work Phone: Start: 01-25-2014 End: 01-25-2014 Follow Up Appt 6 months Follow Up Appt 6 months [employer] Phone: Start: 01-25-2014 End: 01-25-2014 Follow Up Appt Other Follow Up Appt Other [facility] Phone: Start: 12-26-2013 End: 02-01-2014 *Hepatic Function Panel *Hepatic Function Panel [employer] Work Phone: Start: 12-26-2013 End: 02-01-2014 Lipid panel [AGGREGATE] *Lipid Profile CC PCP [facility] Work Phone: Start: 07-28-2013 End: 07-28-2013 Follow Up Appt 6 months Follow Up Appt 6 months [employer] Work Phone: Start: 07-28-2013 End: 07-28-2013 MMM MMM [employer] Work Phone: Start: 07-25-2013 End: 07-26-2013 *NEFTALY - Fungus, NEFTALY Prep *NEFTALY - Fungus, NEFTALY Prep [employer] Work Phone: Start: 07-25-2013 End: 07-26-2013 Occult blood, feces Occult Stools (Office) [employer] Work Phone: Start: 07-25-2013 End: 07-25-2013 Transvaginal us, non-ob US Transvaginal [employer] Work Phone: Start: 07-25-2013 End: 07-26-2013 Trichomonas vaginalis [Presence] in Unspecified specimen by Wet preparation *WP - Wet Prep - Trichomonas [facility] Work Phone: Start: 07-25-2013 End: 07-26-2013 Urinalysis nonauto w/o scope UA Dipstick (Office) [facility] Work Phone: Start: 07-25-2013 End: 07-26-2013 Urine culture, bacteria *CUUR - Culture, Urine ([place] Count) [facility] Work Phone: Start: 07-25-2013 End: 07-26-2013 Other Other [employer] Work Phone: Start: 05-24-2013 End: 07-26-2013 Rheumatology Referral Rheumatology Referral Jeb Montero MD, [address] [place] [address], [id number] [employer] Work Phone: Start: 04-28-2013 End: 01-24-2014 *Hepatic Function Panel *Hepatic Function Panel [employer] Work Phone: Start: 04-28-2013 End: 01-24-2014 Lipid panel [AGGREGATE] *Lipid Profile [facility] Work Phone: Start: 04-27-2013 End: 04-27-2013 *Hepatic Function Panel *Hepatic Function Panel [facility] [employer] Work Phone: Start: 04-27-2013 End: 04-27-2013 HAND TAPPER HAND TAPPER [employer] Work Phone: Start: 04-27-2013 End: 04-27-2013 Follow Up Appt 3 months Follow Up Appt 3 months [facility] Work Phone: Start: 04-27-2013 End: 04-27-2013 Lipid panel [AGGREGATE] *Lipid Profile CC PCP [facility] Work Phone: Start: 04-12-2013 End: 04-13-2013 Cardiac Rehab Cardiac Rehab [facility] Work Phone: Start: 03-23-2013 End: 03-24-2013 Left Heart Cath W/Grafts Left Heart Cath W/Grafts [facility] Work Phone: Start: 10-26-2012 End: 10-31-2012 *Hepatic Function Panel *Hepatic Function Panel [facility] Work Phone: Start: 10-26-2012 End: 10-26-2012 Echocardiography Echocardiogram (complete) [facility] Work Phone: Start: 10-26-2012 End: 10-26-2012 Follow Up Appt 6 months Follow Up Appt 6 months [facility] Work Phone: Start: 10-26-2012 End: 10-31-2012 Lipid panel [AGGREGATE] *Lipid Profile [facility] Work Phone: Start: 10-26-2012 End: 10-26-2012 MMM MMM [facility] Work Phone: Start: 06-09-2006 Mammography MAMMOGRAM [facility] Start: 2004 Screening for malign ant neoplasm of colon [facility] Start: 2004 SHINGRIX VACCINE (1 of 2) CARROLL GRIX VACCINE (1 of 2) [facility] Start: 1972 Hepatitis C screening Hepatitis [facility] Start: 1966 Adult depression scr eening assessment DEPRESSION SCREENING [facility] Start: 1966 COVID-19 VACCINE (1) COVID-19 VACCIN E (1) [facility] Start: 1966 Depression Monitoring Depression [facility] Start: 1954 Screening for malign ant neoplasm of colon [facility] Start: 02-13-1956 Screening for osteoporosis Bone Dens ity Scan [facility] [place] Basic metabolic 2000 panel - Serum or Plasma BASIC METABOLIC PNL Lab Routine Benign Hypertension Ordered: 08/29/2007 [facility] Comment on above: Ordered: 08/29/2007 CBC panel - Blood by Automated count CBC + PLT Lab Routine Benign Hypertension Ordered: 08/29/2007 [facility] Comment on above: Ordered: 08/29/2007 CBC W Auto Different ial panel - Blood [facility] Colonoscopy [facility] LIPID PANEL BASIC LIPID PANEL BA SIC Lab Routine Hypothyroidism Nos Ordered: 08/29/2007 [facility] Comment on above: Ordered: 08/29/2007 Patient Education [facility] [employer] Work Phone: Patient referral [facility] Work Phone: Radionuclide imaging of perfusion of myocardium under exercise stress [facility] Thyrotropin [Units/v olume] in Serum or Plasma TSH BLD Lab Routine Hypothyroidism Nos Ordered: 08/29/2007 [facility] Comment on above: Ordered: 08/29/2007 [place] Carotid arteries [facility] [place] Immunization Date Immunization Notes Care Provider Fa cility 09-18-2020 Covid (Moderna) [facility] 08-21-2020 Covid (Moderna) [facility] 02-15-2020 influenza, injectable, quadrivalent, preservative free Dr. Teresa Boggs Work Phone: [facility] 02-15-2020 influenza, seasonal, injectable [facility] 02-15-2020 pneumococcal conjugate vaccine, 13 valent [facility] 03-12-2019 influenza, injectable, quadrivalent, preservative free Dr. Teresa Boggs Work Phone: [facility] 03-12-2019 influenza, seasonal, injectable [facility] 03-28-2017 Influenza virus vaccine [facility] 02-03-2014 tetanus and diphtheria toxoids, adsorbed, preservative free, for adult use (2 Lf of tetanus toxoid and 2 Lf of diphtheria toxoid) [facility] 05-19-2005 diphtheria and tetanus toxoids, adsorbed for pediatric use Moises Muniz [facility] 05-06-2005 influenza virus vaccine, unspecified formulation [facility] 04-24-2003 influenza virus vaccine, unspecified formulation [facility] NEGATED: Highlighted row has not occurred!05-04-2024 Seasonal trivalent influenza vaccine, adjuvanted, preservative free Nataly Tovar MD Work Phone: [facility] [place] Comment on above: Deferred: Other - pt already had flu vaccine Payers Date Payer Category Payer Self-pay [id number] 2024 Medicaid [id number] 2024 Medicare HMO UHC DUAL COMPLET [id number] 2024 Medicare [id number] 2014 Medicare [id number] 2013 Unknown [employer] [id number] 2007 Unknown [facility] / [employer] [id number] 2007-2008 PPO [id number] Medicaid [id number] Medicare [id number] Unknown [employer] [id number] Unknown [id number] 2.16.840.1.270282.3.579.2.462 Unknown [id number] 2.16.840.1.927054.3.579.2.462 Unknown [id number] 2.16.840.1.912364.3.579.2.462 Unknown [id number] 2.16.840.1.478090.3.579.2.462 Unknown [id number] 2.16.840.1.703056.3.579.2.462 Unknown [id number] 2.16.840.1.405083.3.579.2.462 Unknown [id number] 2.840.1.884885.3.579.2.462 Unknown [id number] 2.16.840.1.777719.3.579.2.462 Unknown [id number] 2.16.840.1.456016.3.579.2.462 Unknown [id number] 2.16.840.1.379611.3.579.2.462 Unknown [id number] 2.840.1.004895.3.579.2.462 Unknown [id number] 2.16.840.1.840802.3.579.2.462 Unknown [id number] 2.16.840.1.518673.3.579.2.462 Unknown [id number] 2.16.840.1.235986.3.579.2.462 Unknown [id number] 2.16.840.1.057568.3.579.2.462 Unknown [id number] 2.16.840.1.407382.3.579.2.462 Unknown [id number] 2.16.840.1.628344.3.579.2.462 Unknown [id number] 2.16.840.1.440263.3.579.2.462 Unknown [id number] 2.16.840.1.312723.3.579.2.462 Unknown [id number] 2.16.840.1.323441.3.579.2.462 Unknown [id number] 2.16.840.1.885787.3.579.2.462 Unknown [id number] 2.16.840.1.813165.3.579.2.462 Unknown [id number] 2.840.1.583729.3.579.2.462 Unknown [id number] 2.840.1.893762.3.579.2.462 Unknown [id number] 2.840.1.009129.3.579.2.462 Unknown [id number] 2.840.1.838729.3.579.2.462 Unknown [id number] 2..840.1.965186.3.579.2.462 Unknown [id number] 2..840.1.372050.3.579.2.462 Unknown [id number] 2.840.1.955819.3.579.2.462 Unknown [id number] 2.840.1.710065.3.579.2.462 Unknown [id number] 2..840.1.654531.3.579.2.462 Unknown [id number] 2.16.840.1.921774.3.579.2.462 Unknown [id number] 2.16.840.1.466757.3.579.2.462 Unknown [id number] 2.16.840.1.813613.3.579.2.462 Unknown [id number] 2.840.1.533113.3.579.2.462 Unknown [id number] 2..840.1.352408.3.579.2.462 Unknown [id number] ..840.1.981299.3.579.2.462 Unknown [id number] 2..840.1.076921.3.579.2.462 Social History Date Type Detail Facility Start: 06-06-2007 End: 10-10-2024 Tobacco smoking status ILIS Former smoker [facility] End: 06-07-1998 History of tobacco use Current smoker [facility] Start: 06-06-2007 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 intake 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 (finding) [facility] Start: 05-28-2007 Alcohol Comment stopped 19yrs ago [facility] Start: 1955 Sex Assigned At Not on file [facility] Start: 07-10-2021 End: 07-01-2023 Tobacco smoking status [facility] Unknown if ever smoked [facility] Start: 11-21-2020 None [facility] Start: 11-03-2019 Friends [facility] Start: 11-21-2020 Non-smoker [facility] Start: 1955 Sex Assigned At Female W [facility] End: 06-28-1974 History of tobacco use Cigarette Smoker [facility] Start: 05-02-2024 Tobacco use and exposure Smoke less tobacco non-user [facility] Start: 05-03-2024 Alcoholic beverage intake Lifetime non-drinker (finding) [facility] Start: 05-02-2024 History of Social function [facility] Start: 05-02-2024 B1300 Health Literacy [facility] How often do you nee d to have someone help you when you read instructions, pamphlets, or other written material from your doctor or pharmacy [SILS] Never [facility] Has the A [employer], [employer], or water [employer] threatened to shut off services in your home in past 12Mo No [facility] Do you belong to any clubs or organizations such as rastafarian groups, unions, fraternal or athletic groups, or school groups? Yes [facility] Are you now , , , , never or living with a partner? Never [facility] How often to you hav e a drink containing alcohol? Never [facility] Do you feel stress - tense, restless, nervous, or anxious, or unable to sleep at night because your mind is troubled all the time - these days [OSQ] Only a little [facility] (I/We) worried wheth er (my/our) food would run out before (I/we) got money to buy more. Never true [facility] Start: 09-03-2024 End: 10-06-2024 Sex Female (finding) [facility] NEGATED: Highlighted row [facility] Medical Equipment Procedure Code Equipment Code Equipment Origin al Text Equipment Identifier Dates Stent Cor Skypoi nt [id number] - [id number] Start: 05-02-2024 Stent Cor Skyp[employer] [id number] - [id number] Start: 05-02-2024 Stent Cor Sk[employer] 3.68g44of - [id number] Start: 05-02-2024 Stent Cor Skyp[employer] 2.23c83ar - [id number] Start: 05-02-2024 Device Perclose Prostyle - [id number] Start: 05-02-2024 Goals Date Patient Goal Desired Activity /State Mental Status Date Assessment Result Facility 10-19-2022 Cognitive function Voice/Name [facility] Work Phone: 07-15-2022 Cognitive function Voice/Name [facility] Work Phone: 02-24-2022 Cognitive function Level Of Cons ciousness Awake;Alert;Appropriate;Follow s Commands [facility] Work Phone: Clinical Notes 08-29-2007 to 12-15-2024 Note Date & Type Note Facility 12-15-2024 Evaluation note Diagnosis Onset Date Resolution Shortness of breath acute December 15, 2024 8:43am ELODIA (obstructive sleep apnea) chronic December 15, 2024 8:43am [facility] Work Phone: 1(505) 157-503306-20-2025 Evaluation note* Diagnosis Onset Date Resolution Status Admit Date Shortness of breath acute December 15, 2024 8:43am ELODIA (obstructive sleep apnea) chronic December 15, 2024 8:43am Shortness of breath acute 2024 9:36am ELODIA (obstructive sleep apnea) chronic March 02 9:36am [facility] Work Phone: 1(258) 207-178605-09-2025 [facility] [address] [place] [address] MR#: [id number] Acct: [id number] Name: NISSA TROTTER Rep #:[id number] : 1955 69 From: Jose Wolfe DO Referring Dr: Carly Colin SQL ARCHITECT-C Status: REG CLI Location: PSN Date: Sex: F C PSN 6 Minute Walk Test 6 Minute Walk Test 6 Minute Walk Test: 6 Minute Walk Test PSN:6-Minute Walk Test Start: 10/31/24 08:45 Freq: Status: Active Protocol: RESP.6MINW Document 10/31/24 08:45 [facility] (Rec: 10/31/24 08:50 [facility] [id number]) 6 Minute Walk Test Date Performed 10/31/24 [...] Pretesting oxygen saturation was noted to be 98%on room air. With ambulation, the chiquita oxygen saturation was 97%. There was no significant exertional oxygen desaturation. Recommendations Recommendations: There is no indication for the use of supplemental oxygen at this time. 11/03/24 1209 O> Date _ Jose Wolfe DO CC: ~ Date Dictated: 11/03/24 1208 Date Transcribed: 11/03/241207 Manager Cardiac Cath: Dr. Jose Wolfe, Signed [facility]04-23-2025 Evaluation note* Diagnosis Onset Date Resolution Status Admit Date Shortness of breath acute October 18, 2024 1:51pm ELODIA (obstructive sleep apnea) chroni c October 18, 2024 1:51pm Shortness of breath acute December 15, 2024 8:43am ELODIA (obstructive sleep apnea) chroni c December 15, 2024 8:43am [facility] Work Phone: 1(823) 528-440203-13-2025 Evaluation note* Diagnosis Onset Date Resolution Status [...] of breath acute October 18, 2024 1:51pm [facility] Work Phone: [phone] Evaluation note* Diagnosis Onset Date Resolution Status [...] of breath acute December 15, 2024 8:43am [facility] Work Phone: [phone] Evaluation note* Diagnosis Onset Date Resolution Status [...] apnea) chroni c December 15, 2024 8:43am [facility] Work Phone: 1(924) 479-692901-23-2025 Evaluation note* Diagnosis Onset Date Resolution Status [...] 07, 2024 7:52am Hyperlipidemia chronic August 7:52am [facility] Work Phone: 1(455) 945-653901-23-2025 Evaluation note* Diagnosis Onset Date Resolution Status [...] of breath acute October 18, 2024 1:51pm [facility] Work Phone: 1([phone]) 696-644411-13-2024 Evaluation note* Diagnosis Onset Date Resolution Status [...] Acute bronchitis acute July 20, 2024 9:05am [facility] Work Phone: [phone]) 216-950411-07-2024 Note Attestation signed by David Patel MD at 05/04/2024 2:12 PM I personally saw and evaluated this patient prior to discharge. I examined the patient, reviewed the meds and the follow-up information. I was personally involved in, and initiated the medical therapy to be used at discharge and the follow-up to be done. David Patel MD, PhD Advanced Heart Failure Cardiology [facility] [place] 2:12 PM 05/04/24 [facility] Heart & Vascular [facility] Cardiology Discharge Summary Name: Nissa [...] a 68 y.o. female who presented to [facility] on 05/02 after a cardiac cath at [facility] for consideration of PCI. The patient [...] Your Medications These medications were sent to [facility] [address] [place] [address] Hours: Wednesday to Wednesday 10 am to [...] Body mass index is (more content not included)...[facility] 05-04-2024 Hospital course Narrative* Jeison Sheriff MD - 05/04/2024 1:13 PM EST Images from the original note were not included. [facility] [place] [facility] Discharge Summary Name: Nissa Trotter Date [...] a 68 y.o. female who presented to [facility] on 05/02 after a cardiac cath at [facility] for consideration of PCI. 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 Please excuse any saddle and side wire stitcher errors that may have occurred. This note [...] Patel MD, PhD Advanced Heart Failure Cardiology [facility] [place] 2:12 PM 05/04/24 documented in this [facility]11-07-2024 Miscellaneous Notes* Individualized Overall Plan of Care Note - ELANA Jason CNP - 05/04/2024 11:28 AM EST Discharge instructions, medications, restrictions, activity, diet, cardiac rehab and follow-up reviewed and patient verbalized understanding. 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/caregiver as indicated: Yes Confirmation of Payer with patient/family: Yes Payer Name: [facility] : No Confirmation of Primary Care [...] with: Alone Support Systems: Children, Family members, Jain/nathaniel community Activities of Daily Living Ambulation: Independent Bathing/Dressing: Independent Elimination/Continence/Toileting: Independent Feeding: Independent Who Assists with Activities of Daily Living: Instrumental Activities of Daily Living Prescription Coverage: Yes Pharmacy Used: [facility] Medication Management: Mail order Who assists [...] Mcnair MD - 05/02/2024 3:49 PM EST [facility] Cardiac Catheterization Laboratory Post-Procedure Note Patient Name: Nissa Trotter Date: 05/02/2024, 3:49 PM Pre-Operative Diagnosis: Multivessel CAD Post-Operative Diagnosis: Multivessel CAD Procedure: [facility] Coronary Angiography IVUS PCI Findings: Successful PCI [...] Note CM attempted IA. 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 CM will attempt again [...] fall injury Outcome: Progressing documented in this [facility]11-07-2024 Note* Individualized Overall Plan of Care Note - ELANA Jason CNP - 05/04/2024 11:28 AM EST Discharge instructions, medications, restrictions, activity, diet, cardiac rehab and follow-up reviewed and patient verbalized understanding. She will utilize [facility] for her home-going Rx and was instructed to notify office with any difficulty obtaining Rx or if this becomes a financial burden. She was also informed to notify the office in the future if anyone asks her to hold or stop either ASA or ticagrelor (Brilinta) 90mg BID. [id number] Note* Individualized Overall Plan of Care Note - ELANA Jason CNP - 05/04/2024 11:28 AM EST Discharge instructions, medications, restrictions, activity, diet, cardiac rehab and follow-up reviewed and patient verbalized understanding. She will utilize [facility] for her home-going Rx and was instructed to notify office with any difficulty obtaining Rx or if this becomes a financial burden. She was also informed to notify the office in the future if anyone asks her to hold or stop either ASA or ticagrelor (Brilinta) 90mg BID. [id number] History of Present illness Narrative* Wanda Hernandez - 05/04/2024 9:53 AM EST Nutrition rescreen completed. Chart reviewed. Patient to be monitored and followed by the diet electronic security technician. Erika Hernandez DT * Jeison Sheriff MD - 05/04/2024 6:47 AM EST Images from the original note were not included. [facility] Heart & Vascular [facility] CCU PROGRESS NOTE Patient Name: Nissa Trotter : 1955 Subjective: Hospital Course: This 68-year-old female with a past medical history significant for CAD s/p CABG [2007], previous cardiac catheterization with PCI in , ELODIA, HLD, HTN who presented to [facility] on[facility] after a cardiac cath at [facility] for consideration of PCI. The patient [...] QT Interval 347 QTC Interval 412 P [place] 52 QRS [place] -6 T Wave [place] 62 GA Interval 129 Impression Sinus rhythm Probable left [...] SVG-OM2 grafts are both chronically occluded. Patent [place] dominant RCA with mild disease. Successful IVUS [...] [2015,] Post-procedure troponin elevation -Patient presents from [place] for PCI evaluation s/p heart cath. -Multivessel [...] and electronic medical record. I reviewed the Paster Operator's documentation, and discussed the patient with the Paster Operator. I agree with the Paster Operator's medical decision making and have edited the note to reflect my clinical findings and my assessment and plan. In summary, Ms. Trotter is a 68-year-old woman with a history of coronary artery disease s/p remote CABG, PCI in 2015 and 2019, ELODIA, hypertension, hyperlipidemia, who presents to [facility] with a chief complaint of chest pain. [...] Patel MD, PhD Advanced Heart Failure Cardiology [facility] [place] 2:02 PM 05/04/24 * Stacey Darrius Mode, GROUND INSTRUCTOR ADVANCED - CHECK WRITER SALESPERSON - 05/03/2024 9:40 AM EST [facility] Vascular [facility] Interventional Cardiology Progress Note CC: [...] cardiac rehab as outpatient. Follow up with [facility]. Educated on taking aspirin and brilinta [...] SVG-OM2 grafts are both chronically occluded. Patent [place] dominant RCA with mild disease. Successful IVUS [...] high intensity statin therapy. Long-term follow-up with [place] [facility]. Cardiac Tests: ECG: IMPRESSION: Sinus rhythm Atrial premature complex Low voltage, extremity leads Telemetry findings reviewed: SR 70 with PVC EF BP Date Value Ref Range Status 05/02/2024 59 55 - 100 % Final ELANA Neumann CNP Date Of Service 05/03/2024 * Jeison Sheriff MD - 05/03/2024 7:15 AM EST Images from the original note were not included. [facility] [place] [facility] CCU PROGRESS NOTE Patient Name: Nissa Trotter : 1955 Subjective: Hospital Course: This 68-year-old female with a past medical history significant for CAD s/p CABG [2007], previous cardiac catheterization with PCI in , ELODIA, HLD, HTN who presented [facility] on[facility]/02 after a cardiac cath at [facility] for consideration of PCI. The patient [...] QT Interval 407 QTC Interval 423 P [place] 55 QRS [place] -7 T Wave [place] 46 GA Interval 148 Impression Sinus rhythm Atrial premature [...] SVG-OM2 grafts are both chronically occluded. Patent [place] dominant RCA with mild disease. Successful IVUS [...] cath w/ PCI [2015,] -Patient presents from [place] for PCI evaluation s/p heart cath. -Multivessel [...] and electronic medical record. I reviewed the Paster Operator's documentation, and discussed the patient with the Paster Operator. I agree with the Paster Operator's medical decision making and have edited the note to reflect my clinical findings and my assessment and plan. In summary, Ms. Trotter is a 68-year-old woman with a history of coronary artery disease status postremote CABG, PCI in 2015 and 2019, ELODIA, hypertension, hyperlipidemia, who presents to [facility] with a chief complaint of chest pain. [...] Patel MD, PhD Advanced Heart Failure Cardiology [facility] Heart [facility] [place] 2:11 PM 05/03/24 * Jeison Sheriff MD - 05/02/2024 4:04 PM EST Patient transferred to CCU s/p multivessel PCI. She denies chest pain/pressure, palpitations, shortness of breath, or any other acute concerns at this time. Vitals are stable. Will hold isosorbide mononitrate. Start on rosuvastatin 40 mg nightly. Continue on DAPT. Will monitor for any acute changes. documented in this [facility]11-07-2024 Hospital Discharge instructions* Discharge Instructions* Krysten Polanco APRN - CHECK WRITER SALESPERSON - 05/04/2024 9:22 AM EST Call your doctor with any medication questions or if you notice any side effects from your medications. If you are unable to fill your medications, please call your Assistant Bookkeeper immediately. The office number is located with [...] for three days. GIVE PCI PACKET (FROM TORCH OPERATOR) TO PATIENT Give Coronary Artery Discharge Book. [...] 05/04/2024 11:28 AM EST documented in this [facility]11-07-2024 Nurse Note* Noreen Hunt RN - 05/04/2024 7:18 AM EST Wound Care consulted for Pressure Injury Prevention. Pt's Lake= 20, pt is no longer at risk. Skin Care Precaution order set in place. Will continue to follow peripherally. Please voicera or secure chat message with any questions. Noreen Hunt RN [facility] [id number] Nurse Note* Noreen Hunt RN - 05/04/2024 7:18 AM EST Wound Care consulted for Pressure Injury Prevention. Pt's Lake= 20, pt is no longer at risk. Skin Care Precaution order set in place. Will continue to follow peripherally. Please voicera or secure chat message with any questions. Noreen Hunt RN documented in this [facility]11-06-2024 Note* Care Coordination - Skye Real RN - 05/03/2024 3:34 PM EST Care Managment Initial Assessment Date: 05/03/2024 Patient Name: Nissa Trotter : 1955 Patient Information Source of Information: Patient Cognition/Language: WFL - Within Functional Limits Permission given to speak with patient sales representative business courses/caregiver as indicated: Yes Confirmation of Payer with patient/family: Yes Payer Name: [facility] : No Confirmation of Primary Care [...] with: Alone Support Systems: Children, Family members, Jain/nathaniel community Activities of Daily Living Ambulation: Independent Bathing/Dressing: Independent Elimination/Continence/Toileting: Independent Feeding: Independent Who Assists with Activities of Daily Living: Instrumental Activities of Daily Living Prescription Coverage: Yes Pharmacy Used: [facility] [place] Medication Management: Mail order Who assists with [...] and denies discharge needs. 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 representative business courses/caregiver as indicated: Yes Confirmation of Payer with patient/family: Yes Payer Name: [facility] : No Confirmation of Primary Care [...] with: Alone Support Systems: Children, Family members, Jain/nathaniel community Activities of Daily Living Ambulation: Independent Bathing/Dressing: Independent Elimination/Continence/Toileting: Independent Feeding: Independent Who Assists with Activities of Daily Living: Instrumental Activities of Daily Living Prescription Coverage: Yes Pharmacy Used: [facility] [place] Medication Management: Mail order Who assists [...] Referral for: Additional Information: Patient admitted to [facility] ICU s/p multivessel PCI. Spoke with patient at bedside, introduced self and role. Patient from home with alone, is independent, has PCP and prescription coverage, will have a ride home and denies discharge needs. Skye Real RN [facility]11-06-2024 [facility] and [facility] [place] [facility] Interventional Cardiology Progress Note CC: s/p multivessel [...] cardiac rehab as outpatient. Follow up with [facility]. Educated on taking aspirin and brilinta [...] ventricle size is nor (more content not included)...[facility]11-06-2024 Consult note* Millie Joseph - 05/03/2024 9:02 AM ESTAssociated Order(s): IP CONSULT TO CARDIAC REHAB; IP CONSULT TO CARDIAC REHAB Received referral and reviewed chart. Phase II Cardiopulmonary Rehab Referral discussed with Nissa Pimentel. Patient prefers cardiopulmonary rehab at [facility] and will follow up with Dr. Lemusto perez program. [facility] [id number] NoteReceived referral and reviewed chart. Phase II Cardiopulmonary Rehab Referral discussed with Nissa Trotter. Patient prefers cardiopulmonary rehab at [facility] and will follow up with Dr. Lemus to perez program. [facility]11-06-2024 Consult note* Millie Joseph - 05/03/2024 9:02 AM EST Associated Order(s): IP CONSULT TO CARDIAC REHAB; IP CONSULT TO CARDIAC REHAB Received referral and reviewed chart. Phase II Cardiopulmonary Rehab Referral discussed with Nissa Pimentel. Patient prefers cardiopulmonary rehab at [facility] and will follow up with Dr. [...] discharged prior to discussion. documented in this [facility]11-05-2024 Plan of care note* Care Plan [...] My discharge needs are met Outcome: Progressing [facility] [id number] Note* Post-Procedure Note - Madeleine Mcnair MD - 05/02/2024 3:49 PM EST [facility] Cardiac Catheterization Laboratory Post-Procedure Note Patient Name: Nissa Trotter Date: 05/02/2024, 3:49 PM Pre-Operative Diagnosis: Multivessel CAD Post-Operative Diagnosis: Multivessel CAD Procedure: [facility] Coronary Angiography IVUS PCI Findings: Successful PCI [...] Cardiac rehabilitation. Physician Signature: Madeleine Mcnair MD [facility] [place] Work Phone: [phone]) 645-252511-05-2024 Note* Post-Procedure Note - Madeleine Mcnair MD - 05/02/2024 3:49 PM EST [facility] Cardiac Catheterization Laboratory Post-Procedure Note Patient Name: Nissa Trotter Date: 05/02/2024, 3:49 PM Pre-Operative Diagnosis: Multivessel CAD Post-Operative Diagnosis: Multivessel CAD Procedure: [facility] Coronary Angiography IVUS PCI Findings: Successful PCI [...] Cardiac rehabilitation. Physician Signature: Madeleine Mcnair MD [facility] Phone: [phone]) 650-608611-05-2024 [facility] Cardiac Catheterization Laboratory Post-Procedure Note Patient Name: Nissa Trotter Date: 05/02/2024, 3:49 PM Pre-Operative Diagnosis: Multivessel CAD Post-Operative Diagnosis: Multivessel CAD Procedure: [facility] Coronary Angiography IVUS PCI Findings: Successful PCI [...] CAD. Cardiac rehabilitation. Physician Signature: Madeleine Mcnair, [facility]11-05-2024 Note* Care Coordination - Ilana Armstrong RN - 05/02/2024 2:02 PM EST Care Management Progress Note CM attempted IA. 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 CM will attempt again as able. Discharge plan: TBD. Awaiting clinical stability and medical clearance. Length of Stay (Days): 0 GMLOS: No GMLOS Documented [facility] [id number] Note* Care Coordination - Ilana Armstrong RN - 05/02/2024 2:02 PM EST Care Management Progress Note CM attempted IA. 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 CM will attempt again as able. Discharge plan: TBD. Awaiting clinical stability and medical clearance. Length of Stay (Days): 0 GMLOS: No GMLOS Documented [facility] [id number] NoteCare Management Progress Note CM attempted IA. 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 CM will attempt again as able. Discharge plan: TBD. Awaiting clinical stability and medical clearance. Length of Stay (Days): 0 GMLOS: No GMLOS [facility]ed[facility] Note* Pre-Sedation Documentation - Braeden Mckeon MD [...] and proceed to administer sedation as planned. [employer] Phone: [phone] Note* Pre-Sedation Documentation - Braeden Mckeon MD [...] and proceed to administer sedation as planned. [employer] Phone: [phone]) [phone] Consult note* Wendie Faust - 05/02/2024 9:31 AM ESTAssociated Order(s): IP CONSULT TO CARDIAC REHAB Received referral and reviewed chart. Unable to discuss Phase II Cardiopulmonary Rehab Referral with Nissa Trotter at this time. Will follow to discuss program when appropriate. Patient will be contacted at home if discharged prior to discussion. [facility]11-05-2024 NoteReceived referral and reviewed chart. Unable to discuss Phase II Cardiopulmonary Rehab Referral with Nissa Trotter at this time. Will follow to discuss program when appropriate. Patient will be contacted at home if discharged prior to discussion. [facility]11-05-2024 NoteProblem: Pain - Adult Goal: Verbalizes/displays adequate comfort level or baseline comfort level Outcome: Progressing Problem: Safety - Adult Goal: Free from fall injury Outcome: [facility]ing[facility]-2024 Plan of care note* Care Plan - Ketty Trotter RN - 05/02/2024 4:48 AM EST Problem: Pain - Adult Goal: Verbalizes/displays adequate comfort level or baseline comfort level Outcome: Progressing Problem: Safety - Adult Goal: Free from fall injury Outcome: Progressing [facility] [id number] History and physical note* Nataly Tovar MD - 05/02/2024 2:57 AM EST [facility] [place] [facility] Cardiology/In-Patient Cardiology Service (ICS) History and Physical If patient is on ICS, for questions (see Graphic User Interface Designer Finder): 7:00 AM- 5:00 PM: Contact ICS Fellow 5:00 PM - 11:00 PM: Contact ICS Moonlighter 11:00 PM- 7:00 AM: Contact Night Call (HLU) Fellow Chief Complaint: chest pain, accelerating angina, transfer from [facility] for CABG evaluation History of Present Illness: Nissa Trotter is a 68 y.o. female with a medical history of coronary artery disease status post CABG in 2007 and cardiac cath with PCI in 2015 and 2019 (see below for details). She also has a historyof ELODIA, hyperlipidemia, hypertension, depression/anxiety, prior tobacco use, TIA, and carotid stenosis. She follows with [place] [place] [facility] for her cardiology care. Patient had noticed worsening shortness of breath with activities, decreased exercise tolerance, and increased generalized fatigue for the past 1 month or so per patient. She had a normal stress testin December 2023 however given her cardiac history and her symptoms patient was scheduled for a cardiaccath at [facility] on 05-01-2024. After her cath she was transferred to [facility] for consideration of PCI for left main [...] as outlined in HPI, [facility]ial 90% stenosis of left [...] assessment and plan. Nataly Tovar MD [facility] [place] Work Phone: [phone] 461-743511-05-2024 [facility] [place] [facility] Cardiology/In-Patient Cardiology Service (ICS) History and Physical If patient is on ICS, for questions (see Graphic User Interface Designer Finder): 7:00 AM- 5:00 PM: Contact ICS Fellow 5:00 PM - 11:00 PM: Contact ICS Moonlighter 11:00 PM- 7:00 AM: Contact Night Call (HLU) Fellow Chief Complaint: chest pain, accelerating angina, transfer from [facility] for CABG evaluation History of Present Illness: Nissa Trotter is a 68 y.o. female with a medical history of coronary artery disease status post CABG in 2007 and cardiac cath with PCI in 2015 and 2019 (see below for details). She also has a history of ELODIA, hyperlipidemia, hypertension, depression/anxiety, prior tobacco use, TIA, and carotid stenosis. She follows with [facility] for her cardiology care. Patient had noticed worsening shortness of breath with activities, decreased exercise tolerance, and increased generalized fatigue for the past 1 month or so per patient. She had a normal stress test in December 2023 however given her cardiac history and her symptoms patient was scheduled for a cardiac cath at [facility] on 05-01-2024. After her cath she was transferred to [facility] for consideration of PCI for left main [...] as outlined in HPI, [facility]ial 90% stenosis of left [...] for Wt Physical Exa (more content not included)...[facility]11-05-2024 History and physical note* Nataly Tovar MD - 05/02/2024 2:57 AM EST [facility] [place] [facility] Cardiology/In-Patient Cardiology Service (ICS) History and Physical If patient is on ICS, for questions (see Graphic User Interface Designer Finder): 7:00 AM- 5:00 PM: Contact ICS Fellow 5:00 PM - 11:00 PM: Contact ICS Moonlighter 11:00 PM- 7:00 AM: Contact Night Call (HLU) Fellow Chief Complaint: chest pain, accelerating angina, transfer from [facility] for CABG evaluation History of Present Illness: Nissa Trotter is a 68 y.o. female with a medical history of coronary artery disease status post CABG in 2007 and cardiac cath with PCI in 2015 and 2019 (see below for details). She also has a historyof ELODIA, hyperlipidemia, hypertension, depression/anxiety, prior tobacco use, TIA, and carotid stenosis. She follows with [facility] for her cardiology care. Patient had noticed worsening shortness of breath with activities, decreased exercise tolerance, and increased generalized fatigue for the past 1 month or so per patient. She had a normal stress testin December 2023 however given her cardiac history and her symptoms patient was scheduled for a cardiaccath at [facility] on 05-01-2024. After her cath she was transferred to [facility] for consideration of PCI for left main [...] as outlined in HPI, [facility] 90% stenosis of left [...] plan. Nataly Tovar MD documented in this [facility]04-24-2023 Procedure [facility]04-24-2023 Procedure [facility]01-18-2023 History and physical note Author Dr. Peoples [facility] July 14, 2022 11:09pm Note Date/Time July 14, 2022 1 1:09pm [facility] Medical Records Department [address] [place] [address] History & Physical Exam 07/14/22 2254 MR#: [id number] Acct: [id number] Name: NISSA TROTTER Rep #:[id number] : 1955 66 From: Carlos Noble PCP: Dr. Teresa Boggs, DO Status:PRE SDC Location: SDC History and Physical Date of Admission: 07/15/22 [...] and depression Atherosclerosis of coronary artery of [place] heart with angina pectoris Basal cell carcinoma [...] cyclobenzaprine liothyronine zinc gluconate calcium carbonate-vitamin D3 pvnjxtback-smdqtltlhifs-jhujpu levothyroxine FAMILY HISTORY Father - CAD (coronary [...] were included in a form from the [employer]. Assessment & Plan Assessment/Plan (1) Neoplasm of skin of ear: (2) Personal history of skin cancer: (3) Former smoker: 07/14/22 9742 <Electronically signed by Carlos Peoples MD> Cosigner Signature (if applicable): CC: Dr. Carlos Peoples MD; Dr. Teresa Boggs DO~ Signed [facility] Work Phone: [phone]) 978-367704-25-2008 Evaluation note* Diagnosis Onset Date Resolution Status Chronic diastolic (congestive) heart failure chronic Essential (primary) hypertension chronic H/O coronary artery bypass surgery October 21, 2007 chronic H/O right coronary artery stent placement March 252019 chronic Hyperlipidemia chronic [facility] Work Phone: [phone] Evaluation note* Diagnosis Onset Date Resolution Status [...] screening for malignant neoplasm of colon acute [facility] Work Phone: [phone] Evaluation note* Diagnosis Onset Date Resolution Status Chronic diastolic (congestive) heart failure chronic Essential (primary) hypertension chronic H/O coronary artery bypass surgery October 21, 2007 chronic Hyperlipidemia [facility] Work Phone: [phone]) 385-513703-03-2008 History of Present illness Narrative* 08/29/2007 4:00 [...] No history of dysuria, frequency and incontinence 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 2. h/o angioedema: diagnosed in [facility] few years ago, and she was on [...] daily. Moises Muniz MD [facility] Nurse Note* 08/29/2007 4:00 PM EST >> NEIDA CHAPPELL MA Mon Aug 29, 2007 3:49 PM Is the patient having any pain? Yes: LOCATION: joints in hands ,wrists, elbows PAIN SCALE: 6 on a scale of 0-10 Neida Chappell Ma documented in this encounterBucyrus Community HospitalDischarge summary Author Dr. Peoples [facility] July 15, 2022 10:19am Note Date/Time July 15, 2022 9 :27am [facility] Medical Records Department [address] [place] [address] Instructions for Home/Discharge Instructions 07/15/22 0925 MR#: [id number] Acct: [id number] Name: NISSA TROTTER Rep #:[id number] : 1955 66 From: Carlos Noble PCP: Dr. Teresa Boggs, DO Status:[facility] Discharge Instructions Diet Discharge Diet: No restrictions [...] Carlos Peoples MD When: one week. call [phone] for appt. Test Results: Test results from [...] liothyronine 5 mcg tablet 5 mcg PO SUMOWEFR Label Comments: take 1 tablet by mouth once daily ON WEDNESDAY, WEDNESDAY, WEDNESDAY, S... (REFER TO PRESCRIPTION NOTES). cyclobenzaprine 5 mg tablet 5 mg PO PRN PRN (Reason: Muscle Pain) Label Comments: take 1-2 tablet by mouth every 8 hours if needed muscle spasm calcium carbonate-vitamin D3 500 mg(1,250mg) -50 unit capsule 1 cap PO DAILY ratvxndgez-nxhxruwypnfl-qjlkmi 100-500-50 mg capsule 1 cap PO DAILY [...] CC: Dr. Teresa Boggs DO ~ Signed [facility] Work Phone: Evaluation note* Diagnosis Myalgia and myositis, unspecified Mylagia and myositis, unspecified Unspecified hypothyroidism Essential hypertension, benign Depressive disorder, not elsewhere classified Anxiety state, unspecified documented in this encounter [facility] HospitalEvaluation noteNo assessment information availableWMetroHealth [facility] Work Phone: Evaluation note* Diagnosis Onset Date Resolution Status Osteoarthritis of knees, bilateral acute [facility] Work Phone: Evaluation note* Diagnosis [...] left postauricular region chronic Former smoker chronic [facility] Work Phone: evaluation note* Diagnosis [...] left postauricular region chronic Former smoker chronic [facility] Work Phone: evaluation note* Diagnosis [...] of left postauricular region chronic Former smoker [facility] Work Phone: evaluation note* Diagnosis [...] left postauricular region chronic Former smoker chronic [facility] Work Phone: Evaluation note* Diagnosis Onset Date Resolution Status Encounter for screening for malignant neoplasm of colo n acute [facility] Work Phone: evaluation note* Diagnosis Onset Date Resolution Status Encounter for screening for malignant neoplasm of colon acute Chest pressure acute SHANNON (dyspnea on exertion) ac eddie Fatigue acute Chronic diastolic (congestive) heart failure chronic Essential (primary) hypertension chronic H/O coronary artery bypass surgery October 21, 2007 chronic Hyperlipidemia chronic [facility] Work Phone: Evaluation note* Diagnosis Accelerating angina (HCC)- Primary Intermediate coronary syndrome Accelerating angina (HCC) Intermediate coronary syndrome Accelerating angina (HCC) Intermediate coronary syndrome documented [facility] this encounter [facility] Author Dagoberto Friend [facility] October 19, 2022 7:12am Note Date/Time October 19, 2022 7:1 2am [facility] Medical Records Department [address] [place] [address] History & Physical Exam 10/19/22 0710 MR#: [id number] Acct: [id number] Name: NISSA TROTTER Rep #:[id number] : 1955 67 From: Dagoberto Erwin DO PCP: Dr. Teresa Boggs DO Status:[facility] Location: [place] [address] HPI - General General Date of Admission: [...] She tolerated the prep without any problems. [facility] Medical History (Updated 10/12/22 @ 13:04 by Antonia Grover) Actinic keratoses Alcohol abuse Allergies Anxiety Anxiety and depression Arthritis Atherosclerosis of coronary artery of [place] heart with angina pectoris Back pain Basal [...] PO DAILY 06/08/22 [History Last Taken Unknown] ananxcbvuf-pwkbsnsbdzni-fxallj 100 mg-500 mg-50 mg capsule 1 cap [...] Teresa Boggs DO; Dagoberto Erwin DO~ Signed [facility] Work Phone: Hospital Discharge instructions Additional Instructions Implant Used?: [facility] Work Phone: Reason for referral (narrative)No reason for referral information availableWMetroHealth [facility] Work Phone: Reason for visit Narrative* Auth/Cert (Routine) Specialty Diagnoses / Procedures Referred By Contálvaro t Referred To Contact Diagnoses Accelerating angina (HCC) CAD Procedures . Nataly Tovar MD [address] [facility] [address] [place] [address] Phone: tel: fax: [facility] Cath/EP Lab [address] [place], [place] [phone] Phone: tel: Referral ID Status Reason Start Date Expiration Date Visits Re quested Visits Authorized [id number] 1 1 [facility] Chief Complaint and Reason for Visit [...] SKIN FL/GR Reason for Visit Osteoarthritis of adam ees, bilateral Personal history of skin cancer [...] OP CK Reason for Visit Osteoarthritis of adam ees, bilateral Personal history of skin cancer [...] surgery Hyperlipidemia Chief Complaint Admit Date S/P [facility] 05/04May 10, 2024 3:38pm PCI [...] stent July 26, 2024 1 :00pm ELODIA February 26th, 2025 8:04pm PCI with stent August 25, 2024 [...] of breath October 18, 2024 1:5 1pm ELOIDA (obstructive sleep apnea) September 1:51pm Shortness of [...] maintenance self pay J maxim 2024 8:00am Chief Complaint Admit Date PH III monthly maintenance free month Ap [...] maintenance self pay J maxim 2024 8:00am SCREENING February 06, 2025 7: 07am Phase III monthly maintenance self pay A ugust 2024 8:00am abnormal echocardiogram February 12 5:39am Chief Complaint Admit Date PH III monthly maintenance free month Ma [...] maintenance self pay J maxim 2024 8:00am SCREENING February 06, 2025 7: 07am abnormal echocardiogram February 12 5:39am abnormal echocardiogram February 12 6:32pm Phase III monthly maintenance self pay A ugust 2024 8:00am Reason for Visit Admit Date Shortness of breath December 15, 2024 8:43 am ELODIA (obstructive sleep apnea) December 15, 2024 8:43am Chief Complaint Admit Date SOB October 31, 2024 8:11am Shortness of [...] maintenance self pay J maxim 2024 8:00am SCREENING February 06, 2025 7: 07am abnormal echocardiogram February 12 5:39am abnormal echocardiogram February 12 6:32pm Phase III monthly maintenance self pay A ugust 2024 8:00am Chief Complaint Admit Date Shortness of breath November 03, 2024 12:08p [...] maintenance self pay J maxim 2024 8:00am SCREENING February 06, 2025 7: 07am abnormal echocardiogram February 12 5:39am abnormal echocardiogram February 12 6:32pm Phase III monthly maintenance self pay A ugust 2024 8:00am 2 M FU March 02, 2025 9:36am Reason for Visit Admit Date Shortness of breath December 15, 2024 8:43 am ELODIA (obstructive sleep apnea) December 15, 2024 8:43am Shortness of breath March 02, 2025 9:36am ELODIA (obstructive sleep apnea) March 02, 2025 9:36am Family History No Family History Records Found [...] No May 14, 021 4:59pm Power of Boat Designer No May 14, 2021 4:59pm Advance Directive Response Recorded Date/ Time Advance Directives No February 7:25am Living Will No February 24 8:04am Power of Boat Designer No February 24, 022 8:04am Advance Directive Response Recorded Date/ Time Advance Directives No April 30, 2022 9:36am Living Will No April 30 9:36am Power of Boat Designer No April 30, 2022 9:36am Advance Directive Response Recorded Date/ Time Advance Directives No April 30, 2022 10:36am Living Will No April 30 10:36am Power of Boat Designer No April 30, 2022 10:36am Advance Directive Response Recorded Date/ Time Advance Directives No April 30, 2022 10:36am Living Will No October 12, 2022 12:54pm Power of Boat Designer No October 12 12:54pm Advance Directive Response Recorded Date/ Time Advance Directives No April 30, 2022 9:36am Living Will No October 12, 2022 11:54am Power of Boat Designer No October 12 11:54am Date Activated Date Inactivated Comments 05/02/2024 2:09 AM 05/04/2024 4:54 PM Advance Directive Response Recorded Date/ Time Advance Directives on File No 2023 3:17pm Living Will No May 22 024 3:17pm Power of Boat Designer No May 22, 2024 3:17pm Advance Directives No May 01, 2024 10:20am Advance Directive Response Recorded Date/ Time Advance Directives on File No 2023 3:17pm Living Will No May 22, 024 3:17pm Do you have a Healthcare Power of Boat Designer? No May 22, 2024 3:17pm Advance Directives [...] or prosecute any alcohol or drug abuse patient.[facility] Reason for Visit (unrecogniz ed section [...] , DO Primary Care Provider, Referring P michel Active Dr. Christian Reynolds , DO Attending [...] Provider, Referring P rovider Active Lia Smith SQL ARCHITECT, SQL ARCHITECT-C Attending Provider Active Team Status: Active Member [...] Provider, Referring P rovider Active Sharla Dubois SQL ARCHITECT, SQL ARCHITECT-C Attending Provider Active Team Status: Inactive Member Role Status Dates Dr. Teresa Boggs DO Primary Care Provider, Referring P rovider Active Ana Bailey PA, PA Attending Provider Active Team Status: Inactive Member Role Status Dates Dr. Teresa Boggs DO Primary Care Provider Active Sharla Dubois SQL ARCHITECT, SQL ARCHITECT-C Attending Provider, Referring P rovider Active Team Status: Active Member Role Status Dates Dr. Teresa Boggs DO Primary Care Provide r, Attending Provider, Referring Provider Active Solids Control Technician Relationship Specialty Start Date End Date Teresa Boggs [address] [place] [address] PCP - General Family Medicine 05/03/24 Team Status: Active Member Role Status Dates Dr. Teresa Boggs DO Primary Care Provider Active Team Status: Inactive Member Role Status Dates Dr. Teresa Boggs DO Primary Care Provider Active Start: May 10, 2024 End: May 10, 2024 Dr. Teresa Boggs DO Referring Provider Active St art: May 10, 2024 End: May 10, 2024 Carrington Wakefield SQL ARCHITECT, SQL ARCHITECT-C Attending Provider Active S tart: May 10, [...] July 20, 2024 End: July 20, 2024 JENNY Saucedo Attending Provider Active Sta rt: July 20, [...] 07, 2024 End: September 07, 2024 Dr. Treesa Boggs DO Referring Provider Active St art: [...] Active Start: November 21, 2024 Dr. Jose Wlofe DO Attending Provider Active S tart: November [...] Inactive Member Role Status Dates Dr. Teresa oBggs DO Primary Care Provider Active Start: December [...] 2024 End: October 31, 2024 Carly Colin NP-Sean Referring Provider Active Start: October 31, 2024 End: October 31, 2024 Team Status: Active Member Role/Relationship Status Dates Dr. Teresa Boggs DO Primary Care Provider Active Start: November 03, 2024 Carly Colin NP-Sean Referring Provider Active Start: November 03, 2024 [...] Provider Active S tart: November 21, 2024 CLARISSA KerrC Referring Provider Active Start: November 21, 2024 [...] Inactive Member Role/Relationship Status Dates Dr. Teresa Bogsg DO Primary Care Provider Active Start: December [...] 2024 End: October 31, 2024 Carly Colin SQL ARCHITECT-C Attending Provider Active Start: October 31, 2024 End: October 31, 2024 Carly Colin SQL ARCHITECT-C Referring Provider Active Start: October 31, 2024 End: October 31, 2024 Team Status: Active Member Role/Relationship Status Dates Dr. Teresa Boggs DO Primary Care Provider Active Start: November 03, 2024 Carly Colin SQL ARCHITECT-C Referring Provider Active Start: November 03, 2024 Carly Colin NP-C Other Provider Active St art: November 03, 2024 Dr. Jose Wolfe , Attending Provider Active S tart: November 03, 2024 Team Status: Inactive Member Role/Relationship Status Dates Dr. Teresa Boggs DO Primary Care Provider Active Start: November 21, 2024 End: November 21, 2024 Carly Colin SQL ARCHITECT-C Attending Provider Active Start: November 21, 2024 End: November 21, 2024 Carly Colin SQL ARCHITECT-C Referring Provider Active Start: November 21, 2024 [...] 15, 2024 End: December 15, 2024 Carly M Rufener , SQL ARCHITECT-C Attending Provider Active Start: December 15, 2024 [...] January 25, 2025 End: January 25, 2025 Team Status: Inactive Member Role/Relationship Status [...] November 21, 2024 Carly M Rufener , SQL ARCHITECT-C Attending Provider Active Start: November 21, 2024 [...] January 25, 2025 End: January 25, 2025 Team Status: Inactive Member Role/Relationship Status Dates Dr. Teresa Boggs DO Primary Care Provider Active Start: February 06, 2025 End: February 06, 2025 Dr. Teresa Boggs DO Attending Provider Active St art: February 06, 2025 End: February 06, 2025 Dr. Teresa Boggs DO Referring Provider Active St art: February 06, 2025 End: February 06, 2025 Team Status: Active Member Role/Relationship Status Dates Dr. Teresa Boggs DO Primary Care Provider Active Start: February 08, 2025 Dr. Dustin Lemus MD Attending Provider Active S tart: February 08, 2025 Dr. Dustin Lemus MD Referring Provider Active S tart: February 08, 2025 Team Status: Active Member Role/Relationship Status Dates Dr. Teresa Boggs DO Primary Care Provider Active Start: February 12, 2025 JENNY Díaz Attending Provider Active St art: February 12, 2025 JENNY Díaz Referring Provider Active St art: February 12, 2025 Team Status: Inactive Member Role/Relationship Status [...] December 15, 2024 End: December 15, 2024 CLARISSA KerrC Attending Provider Active Start: December 15, 2024 [...] January 18, 2025 End: January 18, 2025 CALRI Kerr Attending Provider Active Start: January 18, [...] January 25, 2025 End: January 25, 2025 Team Status: Inactive Member Role/Relationship Status Dates Dr. Teresa Boggs DO Primary Care Provider Active Start: February 06, 2025 End: February 06, 2025 Dr. Teresa Boggs DO Attending Provider Active St art: February 06, 2025 End: February 06, 2025 Dr. Teresa Boggs DO Referring Provider Active St art: February 06, 2025 End: February 06, 2025 Team Status: Inactive Member Role/Relationship Status Dates Dr. Teresa Boggs DO Primary Care Provider Active Start: February 12, 2025 End: February 12, 2025 JENNY Díaz Attending Provider Active St art: February 12, 2025 End: February 12, 2025 JENNY Díaz Referring Provider Active St art: February 12, 2025 End: February 12, 2025 Team Status: Active Member Role/Relationship Status Dates Dr. Teresa Boggs DO Primary Care Provider Active Start: February 12, 2025 JENNY Díaz Referring Provider Active St art: February 12, 2025 JENNY Díaz Other Provider Active Start: February 12, 2025 Dr. Dustin Lemus MD Attending Provider Active S tart: February 12, 2025 Team Status: Active Member Role/Relationship Status Dates Dr. Teresa Boggs DO Primary Care Provider Active Start: February 15, 2025 Dr. Dustin Lemus MD Attending Provider Active S tart: February 15, 2025 Dr. Dustin Lemus MD Referring Provider Active S tart: February 15, 2025 Team Status: Inactive Member Role/Relationship Status Dates Dr. Teresa Boggs DO Primary Care Provider Active Start: October 31, 2024 End: October 31, 2024 CLARISSA KerrC Attending Provider Active Start: October 31, 2024 [...] January 25, 2025 End: January 25, 2025 Team Status: Inactive Member Role/Relationship Status Dates Dr. Teresa Boggs DO Primary Care Provider Active Start: February 06, 2025 End: February 06, 2025 Dr. Teresa Boggs DO Attending Provider Active St art: February 06, 2025 End: February 06, 2025 Dr. Teresa Boggs DO Referring Provider Active St art: February 06, 2025 End: February 06, 2025 Team Status: Inactive Member Role/Relationship Status Dates Dr. Teresa Boggs DO Primary Care Provider Active Start: February 12, 2025 End: February 12, 2025 JENNY Díaz Attending Provider Active St art: February 12, 2025 End: February 12, 2025 JENNY Díaz Referring Provider Active St art: February 12, 2025 End: February 12, 2025 Team Status: Active Member Role/Relationship Status Dates Dr. Teresa Boggs DO Primary Care Provider Active Start: February 12, 2025 JENNY Díaz Referring Provider Active St art: February 12, 2025 JENNY Díaz Other Provider Active Start: February 12, 2025 Dr. Dustin Lemus MD Attending Provider Active S tart: February 12, 2025 Team Status: Inactive Member Role/Relationship Status Dates Dr. Teresa Boggs DO Primary Care Provider Active Start: February 15, 2025 End: February 25, 2025 Dr. Dustin Lemus MD Attending Provider Active S tart: February 15, 2025 End: February 25, 2025 Dr. Dustin Lemus MD Referring Provider Active S tart: February 15, 2025 End: February 25, 2025 Team Status: Active Member Role/Relationship Status [...] January 25, 2025 End: January 25, 2025 Team Status: Inactive Member Role/Relationship Status Dates Dr. Teresa Boggs DO Primary Care Provider Active Start: February 06, 2025 End: February 06, 2025 Dr. Teresa Boggs DO Attending Provider Active St art: February 06, 2025 End: February 06, 2025 Dr. Teresa Boggs DO Referring Provider Active St art: February 06, 2025 End: February 06, 2025 Team Status: Inactive Member Role/Relationship Status Dates Dr. Teresa Boggs DO Primary Care Provider Active Start: February 12, 2025 End: February 12, 2025 JENNY Díaz Attending Provider Active St art: February 12, 2025 End: February 12, 2025 Mundo Tucker PA Referring Provider Active St art: February 12, 2025 End: February 12, 2025 Team Status: Active Member Role/Relationship Status Dates Dr. Teresa Boggs DO Primary Care Provider Active Start: February 12, 2025 Mundo Tucker , PA Referring Provider Active St art: February 12, 2025 JENNY Díaz Other Provider Active Start: February 12, 2025 Dr. Dustin Lemus MD Attending Provider Active S tart: February 12, 2025 Team Status: Inactive Member Role/Relationship Status Dates Dr. Teresa Boggs DO Primary Care Provider Active Start: February 15, 2025 End: February 25, 2025 Dr. Dustin Lemus MD Attending Provider Active S tart: February 15, 2025 End: February 25, 2025 Dr. Dustin Lemus MD Referring Provider Active S tart: February 15, 2025 End: February 25, 2025 Team Status: Inactive Member Role/Relationship Status Dates Dr. Teresa Boggs DO Primary Care Provider Active Start: March 02, 2025 End: March 02, 2025 Dr. 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)0 (Given - Provider: Rebecca Ramírez RN) 0904 (Given - Provider: Tahmina Stockton RN)1525 (Given - Provider: Tahmina Stockton RN)2112 (Given - Provider: Ulices Rodrigeuz RN) 0916 (Given - Provider: Tahmina Stockton [...] provider)1634 (Held by provider - Provider: Jeison Sherfif MD - Reason: Other) 0600 (Dose Auto [...] at 0900 0744 (Given - Provider: Nimo Mchugh, KATIE)2119 (Given - Provider: Rebecca Ramírez RN) 09 (Given - Provider: Tahmina Stockton, KATIE)2111 (Given - Provider: Ulices Rodriguez RN) 09 (Given - Provider: Tahmina Stockton, KATIE) nitroglycerin (Nitrodur) 0.6 MG/HR patch 1 patch (COMPLETED) 1 patch, TransDERmal, Administer over 12 Hours, Once, On Wed05/02/24 at 0930, For 1 dose 1051 (Medication Applied - Provider: Nimo Mchugh RN)2251 (Medication Removed - Provider: Rebecca Ramírez RN) [...] 40 mEq, Oral, Once, On Wed05/02/24 at 214, For 1 dose, Dissolve each packet in 4 ounces of water = 5 mEq per 1 oz fluid., Indications: Hypokalemia 2201 (Given - Provider: Rebecca Ramírez RN) rosuvastatin (Crestor) tablet 40 mg 40 mg, Oral, Nightly, First dose on Wed05/02/24 at 2100 2118 (Given - Provider: Rebecca Ramírez RN) 2111 (Given - Provider: Ulices Rodriguez, KATIE) spironolactone (Aldactone) tablet 25 mg 25 mg, Oral, Daily, First dose on Wed05/02/24 at 0900 0744 (Given - Provider: Nimo Mchugh, KATIE) 0905 (Given - Provider: Tahmina Stockton, KATIE) 0900 (Given - Provider: Tahmina Stockton RN) ticagrelor [...] RN)2111 (Given - Provider: Ulices Rodriguez RN) 09 [...] 1453, Intraprocedure 1453 (Given - Provider: Ernie Ray, RN)1454 (Given - Provider: Ernie Ray, RN)1456 (Given - Provider: Ernie Ray RN) [...] section and content) DATE CREATED AUTHOR 05/06/2024 [facility] DATE CREATED AUTHOR AUTHOR'S ORGANIZ ATION 05/09/2025 [facility] FOR RECORDS PERTAINING TO PATIENTS WHO ARE [...] BASED ON THE PRIMARY CLINICAL RECORDS. [facility] [employer] [facility]. provides no warranty or guarantee of the accuracy or completeness of information in this document.
--- NOTE | 2025-06-22 07:08 | PCM.HP.STD ---
HPI - General General Date of Admission: 06/22/25 Date of Service: 06/22/25 Chief Complaint: Epigastric pain HPI Narrative LANA TROTTER, is a 69 F who presents [ Chief Complaint: Epigastric pain [facility] ED 05/28/2025 with burning in her chest since January 2025 and concern for oral candidiasis. Patient not immunocompromised and is not diabetic. Given nystatin swish and swallow and discharged. Past medical history of coronary artery stent. OV 05/30/2025 patient having epigastric pain radiating to her chest and back since January 2025. Pain is constant and described as burning. It does seem to be worse on exertion however she recently saw cardiology and they did not believe it was cardiac etiology. She has extensive cardiac history. Pain is also worse with inhalation. She does see pulmonology for her sleep apnea. She currently takes pantoprazole 20 mg daily and has been on this for some time. Pain is not exacerbated by oral intake. She does note some difficulty swallowing over this time. She notices it mostly with meats. She has also had burning in her tongue but feels like the nystatin swish and swallow is helping with this little bit. Last EGD was in her 30s. Last colonoscopy was in [address] Erwin with recommendation to repeat in 5 years. Denies smoking or alcohol use. ] [facility] Medical History Hepatitis High cholesterol Restless legs Back pain Difficulty swallowing History of ulceration Gastric reflux History of renal disease BiPAP (biphasic positive airway pressure) dependence History of pain when walking History of CHF (congestive heart failure) Bilateral carotid bruits 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 Wears partial dentures Wears glasses Post-menopausal Cancer Depression Anxiety Thyroid disease Arthritis History of echocardiogram History of stress test Hypertension History of heart attack History of atrial fibrillation Former smoker Personal history of skin cancer Neoplasm of skin of ear ELODIA (obstructive sleep apnea) High triglycerides Allergies Alcohol abuse IBS (irritable bowel syndrome) Bipolar 1 disorder TIA (transient ischemic attack) Chronic diastolic (congestive) heart failure Essential (primary) hypertension Non-rheumatic tricuspid valve insufficiency Atherosclerosis of coronary artery of [place] heart with angina pectoris Basal cell carcinoma of neck GERD (gastroesophageal reflux disease) Osteoarthritis Fibromyalgia Seizure disorder Post traumatic stress disorder (PTSD) Hyperlipidemia Home Medications ?Medication ?Instructions ?Recorded ?Last Taken ?Type aspirin 81 mg chewable tablet 81 mg PO DAILY@0800 ANTIPLATELET 09/24/16 06/19/25 History cyclobenzaprine 5 mg tablet 5 mg PO PRN PRN Muscle Pain 05/06/22 05/27/25 History calcium carbonate-vitamin D3 500 1 cap PO DAILY 06/08/22 05/28/25 History mg (1,250 mg)-50 unit capsule duloxetine 60 mg capsule,delayed 60 mg PO DAILY 07/10/22 06/22/25 History release nitroglycerin 0.4 mg sublingual See Rx Instructions .Route 03/30/23 Unknown Rx tablet .COMPLEX #25 tabs metoprolol tartrate 25 mg tablet 25 mg PO BID #180 tabs 11/23/24 06/22/25 Rx spironolactone 25 mg tablet 25 mg PO DAILY #90 tabs 11/23/24 05/28/25 Rx (Aldactone) levothyroxine 50 mcg tablet 50 mcg PO QDAY 12/15/24 06/22/25 History pantoprazole 20 mg tablet,delayed 20 mg PO QDAY #90 tabs 12/19/24 05/28/25 Rx release rosuvastatin 40 mg tablet (Crestor) 40 mg PO QDAY #90 tabs 12/19/24 05/28/25 Rx ticagrelor 90 mg tablet (Brilinta) 90 mg PO BID #180 tabs 01/19/25 06/21/25 Rx amlodipine 10 mg tablet 10 mg PO DAILY #90 tabs 02/01/25 05/28/25 Rx fluticasone propionate 50 1 spray intranasal QDAY 03/02/25 05/27/25 History mcg/actuation nasal spray,suspension (Flonase Allergy Relief) famotidine 40 mg tablet 40 mg PO QDAY PRN gerd 05/10/25 Unknown History lactobacillus combination no.9 4 4,000 mmu cells PO QDAY 05/10/25 05/28/25 History billion cell capsule (Adult 50 Plus Probiotic) multivitamin 1 tab PO QDAY 05/10/25 05/28/25 History buspirone 15 mg tablet 15 mg PO TID 05/28/25 06/22/25 History estradiol 0.01% (0.1 mg/gram) 1 appful vaginal MOFR 06/15/25 Unknown History vaginal cream Allergy/AdvReac Type Severity Reaction Status Date / Time adhesive tape Allergy Rash Verified 06/22/25 07:03 doxazosin Allergy DROPS Verified 06/22/25 07:03 HEART RATE furosemide (From Lasix) Allergy Itching Verified 06/22/25 07:03 latex Allergy Rash Verified 06/22/25 07:03 lisinopril Allergy Angioedema Verified 06/22/25 07:03 codeine AdvReac Itching Verified 06/22/25 07:03 oxycodone HCl (From Percocet) AdvReac Itching Verified 06/22/25 07:03 tramadol HCl (From Ultram) AdvReac Itching Verified 06/22/25 07:03 Family History Father CAD (coronary artery disease) Hypertension Mother CAD (coronary artery disease) Hypertension Colon cancer Sister Hypertension Other Alcoholism Anxiety Arthritis Depression Heart disease Surgical History Hx of colonoscopy History of excision of lesion Hx of surgical procedure History of coronary artery stent placement Hx of foot surgery Hx of foot surgery History of esophagogastroduodenoscopy (EGD) History of basal cell carcinoma excision History of left heart catheterization (03/25/20) H/O coronary artery bypass surgery (10/21/07) Social History Smoking Status: Former smoker alcohol intake: former details: Participates in AA substance use type: does not use caffeine: No what type of physical activity do you participate in: walking seatbelt use: always do you feel safe at home: Yes additional social history: disability- retired Does Take Aspirin As Needed Does Not Take Ibuprofen ROS Constitutional Constitutional: Denies fatigue, fever(s), poor appetite, weight gain or weight loss Gastrointestinal Gastrointestinal: Denies belching, bloating, change in bowel habits, change in stool character, chewing difficulty, coffee ground emesis, constipation, cramping, diarrhea, dyspepsia, dysphagia, early satiety, excessive flatus, fecal incontinence, heartburn, hematemesis, hematochezia, hemorrhoids, loose stools, melena, nausea, odynophagia, rectal bleeding, tenesmus, vomiting or weight changes Patient's Goals Of Care . What would you like to achieve or improve as a result of your hospital stay?: None Physical Exam Const alert, oriented x3, no apparent distress and healthy appearing General Appearance: cooperative GI normal to inspection, nondistended, normoactive bowel sounds, soft to palpation, non-tender and non-distended Percussion: normal to percussion Rectal Exam: deferred Assessment & Plan Assessment/Plan (1) Epigastric pain: PLAN: Assessment and Plan Assessment and Plan (1) Gastroesophageal reflux disease: (2) Epigastric pain: Status: Acute Plan: Lana is a 69-year-old female patient with past medical history of hyperlipidemia, hypertension, coronary artery disease, ELODIA, OA and epigastric pain here today for evaluation. Since January 2025 patient has been having epigastric pain that radiates into her chest and back. Pain is described as burning and is constant. It is not exacerbated by oral intake. It is worse with exertion and inhalation. She has also been having dysphagia to solids over this time. She has seen both cardiology and pulmonology regarding this. She does have an extensive cardiac history. She was recently seen in the the ED for oral candidiasis and was started on nystatin swish and swallow. This has been helpful for her burning tongue. Will order CBC, CMP and lipase. I have recommended EGD for evaluation of her upper GI tract. At this time etiology of her pain is unclear and may not be GI in nature. - EGD - CBC, CMP and lipase - Continue pantoprazole Note: Portions of this note may have been selectively carried forward from previous documentation to ensure continuity and accuracy of the clinical record. All imported information has been reviewed and updated as necessary to reflect the current patient status, findings, and clinical decision-making for this encounter. [employer] speech recognition resource center teacher software was used to create portions of this document. Sound alike and misspelled words, as well as other resource center teacher errors may be contained in the documentation. Orders: Orders CBC W/Diff, Automated Today R10.13 - Epigastric pain Comprehensive Metabolic Profil Today R10.13 - Epigastric pain Lipase Today R10.13 - Epigastric pain
--- NOTE | 2025-06-22 07:14 | PCM.PRE.AN2 ---
ASA Classification* ASA Classification ASA Classification: 3 Assessment & Plan Anesthesia* Anesthesia Assessment Anesthesia Assessment: Discussed sedation and/or anesthesia options, risks, benefits, and alternatives with patient/parents/legal guardian/POA. Questions invited. The patient/parents/legal guardian/POA seems to understand and agrees to proceed with anesthesia plan. Reviewed the physical assessment, medical history, allergy history and patient home medications list prior to surgery/procedure/anesthetic and documented any changes. Performed airway and anesthesia risk assessments. Anesthesia Type Anesthesia Type: MAC History Source History Obtained from:: Patient and Chart Anesthesia Focused Assessment* Temperature: 96.6 F Pulse Rate: 60 Blood Pressure: 146/58 Respiratory Rate: 18 Pulse Ox: 100 Airway Assessment Mouth opens: >3 cm Mallampati Score: II Teeth Condition: Partial (lower) Neck Range of motion (ROM): Full ROM Labs Anesthesia Preop lab: CBC WBC, (4.4-11.0) 8.7 K/mm3 06/01/25, 10: RBC, (4.2-5.4) 4.90 M/mm3 06/01/25, 10: Hgb, (12.0-15.0) 15.3 g/dL H 06/01/25, 10: Hct, (37-47) 45.5 % 06/01/25, 10: Plt Count, (150-450) 279 K/mm3 06/01/25, 10:31 CHEMISTRY Potassium, (3.3-5.1) 4.2 mmol/L 06/01/25, : Sodium, (133-145) 138 mmol/L 06/01/25, 10: Magnesium, (1.6-2.6) 2.7 mg/dL H 01/07/23, 09:36 BUN, (4-19) 28 mg/dL H 06/01/25, 10:31 Creatinine, (0.70-1.20) 1.29 mg/dL H 06/01/25, 10:31 Glucose, (70-99) 98 mg/dL 06/01/25, 10: POC Glucose, (70-110) 144 mg/dL H 14, 01:38 TSH, (0.300-4.200) 1.250 uIU/mL 10/27/24, 12:02 COAG PT, (11.7-14.9) 12.3 SECONDS 08/09/17, 05:48 Pre-Assessment Diagnosis/Proposed Procedure Planned Operative Procedure(s): EGD Anesthesia History Anesthesia History - choirmaster: Anesthesia History - choirmaster Hx Hospitalization No 06/15/25 08:48 Any Problems With Anesthesia No 06/15/25 08:48 Cholinesterase deficiency No 06/15/25 08:48 You/Your Family Experience No 06/15/25 08:48 fever (hyperthermia) with Relationship Recent Exposure to Contagious No 06/22/25 07:05 Disease Does patient have nerve No 06/15/25 08:48 stimulator Patient instructed to have device shut off --Does patient have Pacemaker No 06/22/25 07:05 or ICD? When Was Last Pacemaker Check QUESTION #4 FULL TEXT: You/Your Family Experience fever (hyperthermia) with Anesthesia Last Oral Intake Last Oral intake: Last Oral Intake NPO since 04:30 06/22/25 07:05 Meds taken in AM with sips of Yes 06/22/25 07:05 water? Meds patient instructed to see medlist 06/22/25 07:05 take am of surgery PONV PONV - choirmaster: PONV - choirmaster Female Yes 06/15/25 08:48 HX of Motion Sickness No 06/15/25 08:48 HX of N/V After Surgery No 06/15/25 08:48 Non-Smoker Yes 06/15/25 08:48 Duration of Surgery greater No 06/15/25 08:48 than 60 minutes Number of Risk Factors 2 06/15/25 08:48 PONV Score Moderate Risk 06/15/25 08:48 Height & Weight Height & Weight: Anesthesia: Height & Weight Height 5 ft 2 in 06/22/25 07:05 Weight: 68.9 kg 06/22/25 07:05 Body Mass Index (BMI) 27.8 06/22/25 07:05 Respiratory Assessment Respiratory Assessment - choirmaster: Respiratory Tract Infection Hx - choirmaster Hx Respiratory Tract Infection Yes: THRUSH/TREATED/RESOLVED 06/15/25 08:48 STOP Sleep Apnea STOP Sleep Apnea - choirmaster: STOP Sleep Apnea - choirmaster Hx Hypertension Yes: CONTROLLED WITH MED 06/15/25 08:48 Hx Sleep Apnea Yes 06/15/25 08:48 CPAP No 06/15/25 08:48 BIPAP Yes 06/15/25 08:48 Do you snore loudly (louder than talking or can be heard Do you often feel tired/ fatigued/ sleepy during daytime? Has anyone observed you stop breathing during sleep? STOP Results Positive 06/15/25 08:48 QUESTION #5 FULL TEXT : Do you snore loudly (louder than talking or can be heard through closed doors)? Tobacco Use History Tobacco Use History - choirmaster: Tobacco Use History - choirmaster Tobacco Use Non-smoker 04/30/22 10:36 Smoking Status Former smoker 06/15/25 08:48 Hx Tobacco Use No 06/15/25 08:48 Years Smoking Packs Smoked per Day Smoking Cessation Date was No - quit smoking greater 06/15/25 08:48 within the last 15 years than 15 years ago Hx Smoking Cessation Date 06/10/98 06/15/25 08:48 Hx Smoking Cessation No 06/15/25 08:48 Counseling Hematologic Medial History Hematologic Hx - choirmaster: Hematologic Medical Hx - clinical documentation manager Hx of Blood Transfusion No 06/15/25 08:48 Hx of Transfusion in last 3 No 06/15/25 08:48 Months Date of Last Transfusion (if within last 3 months) Ever experience any problems No 06/15/25 08:48 with transfusion(s)? Specify any problems Hx of Preganancy in last 3 No 06/15/25 08:48 Months Nurse Filling Out Transfusion DSCHRIBER 06/15/25 08:48 & Questions: Date: 06/15/25 06/15/25 08:48 Time: 08:52 06/15/25 08:48 Patient unable to answer at this time (ie. confused, unrespo /Reproduction History /Reproductive History - choirmaster: /Reproductive Hx- choirmaster Hx Now No 06/15/25 08:48 Gestational Age (in weeks): EDC: Hx Hx Para Hx Section SAB No 06/15/25 08:48 Does the father of the baby or his family experience fever w Father of the baby Malignant Hypertension history comment PFSH Medical History Hepatitis High cholesterol Restless legs Back pain Difficulty swallowing History of ulceration Gastric reflux History of renal disease BiPAP (biphasic positive airway pressure) dependence History of pain when walking History of CHF (congestive heart failure) Bilateral carotid bruits 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 Wears partial dentures Wears glasses Post-menopausal Cancer Depression Anxiety Thyroid disease Arthritis History of echocardiogram History of stress test Hypertension History of heart attack History of atrial fibrillation Former smoker Personal history of skin cancer Neoplasm of skin of ear ELODIA (obstructive sleep apnea) High triglycerides Allergies Alcohol abuse IBS (irritable bowel syndrome) Bipolar 1 disorder TIA (transient ischemic attack) Chronic diastolic (congestive) heart failure Essential (primary) hypertension Non-rheumatic tricuspid valve insufficiency Atherosclerosis of coronary artery of [place] heart with angina pectoris Basal cell carcinoma of neck GERD (gastroesophageal reflux disease) Osteoarthritis Fibromyalgia Seizure disorder Post traumatic stress disorder (PTSD) Hyperlipidemia Home Medications ?Medication ?Instructions ?Recorded ?Last Taken ?Type aspirin 81 mg chewable tablet 81 mg PO DAILY@0800 ANTIPLATELET 09/24/16 06/19/25 History cyclobenzaprine 5 mg tablet 5 mg PO PRN PRN Muscle Pain 05/06/22 05/27/25 History calcium carbonate-vitamin D3 500 1 cap PO DAILY 06/08/22 05/28/25 History mg (1,250 mg)-50 unit capsule duloxetine 60 mg capsule,delayed 60 mg PO DAILY 07/10/22 06/22/25 History release nitroglycerin 0.4 mg sublingual See Rx Instructions .Route 03/30/23 Unknown Rx tablet .COMPLEX #25 tabs metoprolol tartrate 25 mg tablet 25 mg PO BID #180 tabs 11/23/24 06/22/25 Rx spironolactone 25 mg tablet 25 mg PO DAILY #90 tabs 11/23/24 05/28/25 Rx (Aldactone) levothyroxine 50 mcg tablet 50 mcg PO QDAY 12/15/24 06/22/25 History pantoprazole 20 mg tablet,delayed 20 mg PO QDAY #90 tabs 12/19/24 05/28/25 Rx release rosuvastatin 40 mg tablet (Crestor) 40 mg PO QDAY #90 tabs 12/19/24 05/28/25 Rx ticagrelor 90 mg tablet (Brilinta) 90 mg PO BID #180 tabs 01/19/25 06/21/25 Rx amlodipine 10 mg tablet 10 mg PO DAILY #90 tabs 02/01/25 05/28/25 Rx fluticasone propionate 50 1 spray intranasal QDAY 03/02/25 05/27/25 History mcg/actuation nasal spray,suspension (Flonase Allergy Relief) famotidine 40 mg tablet 40 mg PO QDAY PRN gerd 05/10/25 Unknown History lactobacillus combination no.9 4 4,000 mmu cells PO QDAY 05/10/25 05/28/25 History billion cell capsule (Adult 50 Plus Probiotic) multivitamin 1 tab PO QDAY 05/10/25 05/28/25 History buspirone 15 mg tablet 15 mg PO TID 05/28/25 06/22/25 History estradiol 0.01% (0.1 mg/gram) 1 appful vaginal MOFR 06/15/25 Unknown History vaginal cream Allergy/AdvReac Type Severity Reaction Status Date / Time adhesive tape Allergy Rash Verified 06/22/25 07:03 doxazosin Allergy DROPS Verified 06/22/25 07:03 HEART RATE furosemide (From Lasix) Allergy Itching Verified 06/22/25 07:03 latex Allergy Rash Verified 06/22/25 07:03 lisinopril Allergy Angioedema Verified 06/22/25 07:03 codeine AdvReac Itching Verified 06/22/25 07:03 oxycodone HCl (From Percocet) AdvReac Itching Verified 06/22/25 07:03 tramadol HCl (From Ultram) AdvReac Itching Verified 06/22/25 07:03 Family History Father CAD (coronary artery disease) Hypertension Mother CAD (coronary artery disease) Hypertension Colon cancer Sister Hypertension Other Alcoholism Anxiety Arthritis Depression Heart disease Surgical History Hx of colonoscopy History of excision of lesion Hx of surgical procedure History of coronary artery stent placement Hx of foot surgery Hx of foot surgery History of esophagogastroduodenoscopy (EGD) History of basal cell carcinoma excision History of left heart catheterization (03/25/20) H/O coronary artery bypass surgery (10/21/07) Social History Smoking Status: Former smoker alcohol intake: former details: Participates in AA substance use type: does not use caffeine: No what type of physical activity do you participate in: walking seatbelt use: always do you feel safe at home: Yes additional social history: disability- retired Does Take Aspirin As Needed Does Not Take Ibuprofen Review of Systems (Anesthesia) ROS Narrative System reviewed and no additional complaints, except as documented.
[2025-06-22] MEDS: Lactated Ringers 1,000 ML 15 ML IV (07:15)
--- NOTE | 2025-06-22 07:30 | EGD_PTH ---
PATIENT: NISSA TROTTER LOC: [facility] U#:[id number] AGE/SX: 69/F ROOM: RE06/22/[address]: Dr. Dagoberto Erwin DO : 1955 BED: DIS: 06/22/2025 SPEC #: [id number] RECD: 06/22/25 09:43 STATUS: PAULA LISSA #: [id number] LATOYA: 06/22/25 07:[address]: Dagoberto Erwin DEPT: SURGICAL PATHOLOGY RECD BY: Ulices Michele ENTERED: 06/22/25 10:35 SP TYPE: EGD BIOPSY BIANCA DR: Dr. Teresa Boggs DO Tissues: A - Esophagus, NOS Procedures: Surgery Specimen Level IV HEADER OPERATION: EGD with biopsies PRE-OP DIAGNOSIS: Epigastric pain TISSUE SUBMITTED: A- Distal esophagus biopsy MICROSCOPIC DIAGNOSIS A. Esophagus, distal, biopsy: - Squamous mucosa with reactive changes. - Columnar mucosa negative for goblet cell metaplasia. MICROSCOPIC DESCRIPTION Slides are reviewed. GROSS DESCRIPTION A. Received in fixative is one container labeled with the patient's name and designated Distal esophagus biopsy. The specimen consists of two irregular fragments of [place] tissue that measure 0.5 x 0.3 x 0.2 cm. The specimen is totally submitted in one cassette. 06/22/2025 CPT:39609
--- NOTE | 2025-06-22 07:47 | OP.PROVAT_ITS ---
06/22/2025 Teresa Boggs [address] [place] [address] Re : Upper GI endoscopy procedure for Lana Muse Dear Dr. Boggs This procedure was performed on Sunday, June 22, 2025. My impressions and recommendations are as follows: Impressions : - Abnormal esophageal motility. - Z-line irregular, 40 cm from the incisors. Biopsied. - Medium-sized hiatal hernia. - No gross lesions in the entire stomach. - No gross lesions in the entire examined duodenum. Recommendations : - Discharge patient to home. - Resume previous diet. - Continue present medications. - Await pathology results. My findings are described in the full procedure note, which is enclosed. If I can be of further assistance, please feel free to contact me at . Sincerely, Dagoberto Erwin, 06/22/2025 7:45:26 AM This report has been signed electronically.
--- NOTE | 2025-06-22 07:47 | OP.EGD_ITS ---
Patient Name: Lana Muse Procedure Date: 06/22/2025 6:42 AM Date of : 1955 Age: 69 Procedure: Upper GI endoscopy Indications: Iron deficiency anemia, Heartburn, Suspected esophageal reflux Providers: Dagoberto Erwin DO Referring MD: Teresa Boggs Medicines: Monitored Anesthesia Care Patient Profile: This is a 69 year old female. Refer to note in patient chart for documentation of history and physical. Patient has symptoms of acute epigastric abdominal pain and acute heartburn. Complications: No immediate complications. Procedure: Pre-Anesthesia Assessment: - Prior to the procedure, a History and Physical was performed, and patient medications and allergies were reviewed. The patient is competent. The risks and benefits of the procedure and the sedation options and risks were discussed with the patient. All questions were answered and informed consent was obtained. Patient identification and proposed procedure were verified by the physician in the pre-procedure area. Mental Status Examination: alert and oriented. Airway Examination: normal oropharyngeal airway and neck mobility. Respiratory Examination: clear to auscultation. CV Examination: normal. Prophylactic Antibiotics: The patient does not require prophylactic antibiotics. Prior Anticoagulants: The patient has taken no anticoagulant or antiplatelet agents. ASA Grade Assessment: III - A patient with severe systemic disease. After reviewing the risks and benefits, the patient was deemed in satisfactory condition to undergo the procedure. The anesthesia plan was to use monitored anesthesia care (MAC). Immediately prior to administration of medications, the patient was re-assessed for adequacy to receive sedatives. The heart rate, respiratory rate, oxygen saturations, blood pressure, adequacy of pulmonary ventilation, and response to care were monitored throughout the procedure. The physical status of the patient was re-assessed after the procedure. After obtaining informed consent, the endoscope was passed under direct vision. Throughout the procedure, the patient's blood pressure, pulse, and oxygen saturations were monitored continuously. The gastroscope was introduced through the mouth, and advanced to the third part of the duodenum. Small bowel enteroscopy was deemed necessary. The upper GI endoscopy was accomplished without difficulty. The patient tolerated the procedure well. Scope In: 7:37:22 AM Scope Out: 7:40:50 AM Total Procedure Duration Time 0 hours 3 minutes 28 seconds Findings: Abnormal motility was noted in the esophagus. The cricopharyngeus was normal. There are extra peristaltic waves in the esophageal body. The distal esophagus/lower esophageal sphincter is spastic, but gives up passage to the endoscope. The Z-line was irregular and was found 40 cm from the incisors. Biopsies were taken with a cold forceps for histology. Verification of patient identification for the specimen was done. Estimated blood loss was minimal. A medium-sized hiatal hernia was present. No gross lesions were noted in the entire examined stomach. No gross lesions were noted in the entire examined duodenum. Impression: - Abnormal esophageal motility. - Z-line irregular, 40 cm from the incisors. Biopsied. - Medium-sized hiatal hernia. - No gross lesions in the entire stomach. - No gross lesions in the entire examined duodenum. Recommendation: - Discharge patient to home. - Resume previous diet. - Continue present medications. - Await pathology results. Procedure Code(s): --- Professional --- 06863, Small intestinal endoscopy, enteroscopy beyond second portion of duodenum, not including ileum; with biopsy, single or multiple CPT copyright 2021 [employer]. All rights reserved. The codes documented in this report are preliminary and upon manager communication review may be revised to meet current compliance requirements. Dagoberto Erwin DO 06/22/2025 7:45:26 AM This report has been signed electronically. Number of Addenda: 0 Note Initiated On: 06/22/2025 6:42 AM
--- NOTE | 2025-06-22 07:52 | PCM.POST.ANE ---
Anesthesia: Postop Eval I Current Vital Signs Temperature: 97.5 F Pulse Rate: 57 Blood Pressure: 101/52 Respiratory Rate: 16 Pulse Ox: 97 Oxygen Delivery Method: Room Air Assessment Airway patent: Yes Spontaneous unlabored respirations: Yes Mental status: Asleep nausea: No Vomiting: No Anesthesia Complication: No Fluid Hydration Crystalloid volume administer (ml): 400 Total IV fluid infused: 400 Progress Note Anesthesia document: Postop Eval 1 completed: Yes
--- NOTE | 2025-06-22 09:54 | PCM.POSTANE2 ---
Anesthesia Postop Eval I Sum Postop Eval Completion status Anesthesia document: Postop Eval 1 completed: Yes Anesthesia Postop Eval I Summary Anesthesia Postop Eval I Summary: Anesthesia Postop Eval I: Assessment Summary Airway patent Yes 06/22/25 07:54 [email or web address] Spontaneous unlabored Yes 06/22/25 07:54 [email or web address] respirations Mental status Asleep 06/22/25 07:54 [email or web address] nausea No 06/22/25 07:55 [email or web address] Vomiting No 06/22/25 07:55 [email or web address] Anesthesia Postop Eval I: Fluid Summary Crystalloid volume administer 400 06/22/25 07:55 [email or web address] (ml) Colloids volume administered ( ml) Blood Product volume administered (ml) Total IV fluid infused 400 06/22/25 07:55 [email or web address] Anesthesia Postop Eval I: Summary Notes Anesthesia Complication No 06/22/25 07:55 [email or web address] Anesthesia Complication Comment: Post-operative progress note Anesthesia: Postop Eval II Evaluation Mental status: Awake and Calm Pain Level: 0 nausea: No Vomiting: No Complications Anesthesia Complication: No
== END 2025-06-22 08:20 | disposition home or self-care (01) ==
LOC: EN 06:50 → AC 06:52
PROVIDERS: PCP Family Medicine; Referring Provider Family Medicine; Visit Provider Internal Medicine Gastroenterology
PROC: 0DJ08ZZ Inspection of Upper Intestinal Tract, Via Natural or Artificial Opening Endoscopic (ICD-10-PCS; CPT 43235; principal; 2025-06-22 07:25)
DX: K22.4 Dyskinesia of esophagus (principal); I11.0 Hypertensive heart disease with heart failure; I50.9 Heart failure, unspecified; Z87.891 Personal history of nicotine dependence; E78.00 Pure hypercholesterolemia, unspecified; D50.9 Iron deficiency anemia, unspecified; Z79.899 Other long term (current) drug therapy; K21.9 Gastro-esophageal reflux disease without esophagitis; Z79.02 Long term (current) use of antithrombotics/antiplatelets; Z95.5 Presence of coronary angioplasty implant and graft; K44.9 Diaphragmatic hernia without obstruction or gangrene; I25.10 Atherosclerotic heart disease of native coronary artery without angina pectoris; Z79.82 Long term (current) use of aspirin; Z79.890 Hormone replacement therapy
CPT/HCPCS: 44361; 88305; J2405